=== PATIENT | male | born 1945 | race African-American/Black ===

== ENCOUNTER 2017-10-09 17:54 | Observation (INO) | payer OTHER ==
[~2017-10-09] VITALS: Ht 167.6 cm; Wt 84.8 kg
[~2017-10-09 17:54] MED LIST: 1-ME1LIQ PO; ALBU0.086 INH; ALBU8I INH; METH750T2 PO; PRED20 PO; VENTAER INH
[2017-10-09 17:55] VITALS: BP 155/90; PULSE 128; RESP 22; TEMP 98.3; O2SAT 96
--- NOTE | 2017-10-09 18:30 | RADRPT ---
EXAM DATE/TIME: 10/09/2017 18:20 [place] COMPARISON: CHEST SINGLE AP, July 29, 2015, 23:14. INDICATIONS : Short of breath. MEDICAL HISTORY : Chronic obstructive pulmonary disease. Hypertension SURGICAL HISTORY : None. ENCOUNTER: Initial ACUITY: 2 days PAIN SCORE: 0/10 LOCATION: Bilateral chest FINDINGS: PA and lateral views of the chest demonstrate the lungs to be symmetrically aerated without evidence of mass, infiltrate or effusion. There is hyperaeration bilaterally. The cardiomediastinal contours are unremarkable. Osseous structures are intact. CONCLUSION: No acute disease. No significant changes compared to the prior study. Олег Lopez MD on October 09, 2017 at 18:27 Board Certified Radiologist. This report was verified electronically.
[2017-10-09 19:03] LABS: AUTOMATED NEUTROPHIL # 6.7 TH/MM3 (1.8-7.7); BASOPHIL % 0.2 % (0.0-2.0); EOSINOPHIL % 0.5 % (0.0-4.0); HEMATOCRIT 40.1 % (39.0-51.0); HEMOGLOBIN 13.5 GM/DL (13.0-17.0); LYMPH % 20.1 % (9.0-44.0); LYMPHOCYTE # 1.8 TH/MM3 (1.0-4.8); MEAN CELL VOLUME 88.5 FL (80.0-100.0); MEAN CORPUSCULAR HEMOGLOBIN 29.7 PG (27.0-34.0); MEAN CORPUSCULAR HGB CONC 33.6 % (32.0-36.0); MEAN PLATELET VOLUME 9.7 FL (7.0-11.0); MONO % 5.7 % (0.0-8.0); MONOCYTE # 0.5 TH/MM3 (0-0.9); NEUT % 73.5 % (16.0-70.0); PLATELET COUNT 153 TH/MM3 (150-450); RED BLOOD COUNT 4.54 MIL/MM3 (4.50-5.90); RED CELL DISTRIBUTION WIDTH 13.7 % (11.6-17.2); WHITE BLOOD COUNT 9.1 TH/MM3 (4.0-11.0)
[2017-10-09 19:10] LABS: PROTHROMBIN TIME - PATIENT 10.5 SEC (9.8-11.6)
[2017-10-09 19:25] LABS: BICARBONATE 28.9 MEQ/L (21.0-32.0); BLOOD UREA NITROGEN 16 MG/DL (7-18); CALCIUM 9.1 MG/DL (8.5-10.1); CHLORIDE 103 MEQ/L (98-107); CREATININE 1.19 MG/DL (0.60-1.30); GLOMERULAR FILTRATION RATE 73 ML/MIN (>89); GLUCOSE,RANDOM 121 MG/DL (74-106); MAGNESIUM 2.3 MG/DL (1.5-2.5); SODIUM (NA) 139 MEQ/L (136-145)
[2017-10-09 19:28] LABS: TROPONIN I LESS THAN 0.02 NG/ML (0.02-0.05)
[2017-10-09 22:45] VITALS: BP 151/84; PULSE 95; RESP 14; O2SAT 99
[2017-10-09] MEDS ORDERED: RESP: ALBUTEROL 2.5 MG/IPRATROPIUM 0.5 MG NEB (SCH) NEB ONE (23:00)
[2017-10-09] MEDS ORDERED: predniSONE 20 MG TAB PO ONE (23:00)
[2017-10-09 23:10] VITALS: O2SAT 98
--- NOTE | 2017-10-09 23:34 | PD ---
HPI Chief Complaint: Respiratory Symptoms Time Seen by Provider: 22:42 Travel History International Travel<30 days: No Contact w/Intl Traveler<30days: No Traveled to known affect area: No History of Present Illness HPI Pt is 72 yr old male with Hx of COPD and Back pain and he lives at home on 2-3 liters O2 and now getting worse SHortness of Breath and tachycardia with exertion PFSH Past Medical History Asthma: Yes COPD: Yes Diminished Hearing: No Hypertension: Yes Musculoskeletal: Yes (CHRONIC BACK) Past Surgical History Surgical History: No Previous Surgery Social History Alcohol Use: Yes (OCCASIONAL) Tobacco Use: Yes (3-4 CIGARETTES A DAY) Substance Use: No Allergies-Medications (Allergen,Severity, Reaction): Coded Allergies: shellfish derived (Verified Allergy, Severe, Anaphylaxis, 10/10/17) Reported Meds & Prescriptions Reported Meds & Active Scripts Active Reported Striverdi Respimat Inh (Olodaterol Inh) 2.5 Mcg/Actuation Aer 2 INH DAILY Spiriva Handihaler (Tiotropium Inh) 18 Mcg Cap 18 Mcg INH DAILY 1 capsule = 18 mcg Sertraline (Sertraline HCl) 25 Mg Tab 25 Mg PO DAILY Pravastatin 20 Mg Tab 20 Mg PO HS Omeprazole 20 Mg Tab 20 Mg PO BID Mirtazapine 15 Mg Tab 15 Mg PO HS Vitamin D3 (Cholecalciferol) 1,000 Unit Tab 2,000 Units PO DAILY Buspirone (Buspirone HCl) 10 Mg Tab 10 Mg PO BID Amlodipine (Amlodipine Besylate) 10 Mg Tab 10 Mg PO DAILY Proair Hfa 8.5 GM Inh (Albuterol Sulfate) 90 Mcg/Act Aer 2 Puff INH Q6H PRN 108 mcg/actuation Duoneb (Ipratropium-Albuterol Neb) 0.5-2.5 Mg/3 Ml Neb 1 Nebule INH Q6HR NEB Physical Exam Narrative GENERAL: AOX3 non toxic appearing , SKIN: Warm and dry. HEAD: Atraumatic. Normocephalic. EYES: Pupils equal and round. No scleral icterus. No injection or drainage. ENT: No nasal bleeding or discharge. Mucous membranes pink and moist. NECK: Trachea midline. No JVD. CARDIOVASCULAR: Regular rate and rhythm. RESPIRATORY: No accessory muscle use. slight wheeze bilateral upper lung perez GASTROINTESTINAL: Abdomen soft, non-tender, nondistended. Hepatic and splenic margins not palpable. MUSCULOSKELETAL: Extremities without clubbing, cyanosis, or edema. No obvious deformities. NEUROLOGICAL: Awake and alert. No obvious cranial nerve deficits. Motor grossly within normal limits. Five out of 5 muscle strength in the arms and legs. Normal speech. PSYCHIATRIC: Appropriate mood and affect; insight and judgment normal. Data Data Last Documented VS Vital Signs Date Time Temp Pulse Resp B/P (MAP) Pulse Ox O2 Delivery O2 Flow Rate FiO2 10/09/17 23:10 98 Nasal Cannula 2.00 10/09/17 22:45 95 14 151/84 (106) 10/09/17 17:55 98.3 Orders Orders Complete Blood Count With Diff (10/09/17 17:59) Basic Metabolic Panel (Bmp) (10/09/17 17:59) Act Partial Throm Time (Ptt) (10/09/17 17:59) Prothrombin Time / Inr (Pt) (10/09/17 17:59) Magnesium (Mg) (10/09/17 17:59) Ckmb (Isoenzyme) Profile (10/09/17 17:59) Troponin I (10/09/17 17:59) Electrocardiogram (10/09/17 17:59) Chest, Pa & Lat (10/09/17 17:59) CKMB (10/09/17 18:30) CKMB% (10/09/17 18:30) Albuterol-Ipratropium Neb (Duoneb Neb) (10/09/17 23:00) Prednisone (Deltasone) (10/09/17 23:00) Influenzae A/B Antigen (10/10/17 00:04) Electrocardiogram (10/10/17 00:36) Troponin I (10/10/17 00:36) Admit Order (Ed Use Only) (10/10/17 01:06) Labs Laboratory Tests Test 10/09/17 18:30 10/10/17 00:30 White Blood Count 9.1 TH/MM3 Red Blood Count 4.54 MIL/MM3 Hemoglobin 13.5 GM/DL Hematocrit 40.1 % Mean Corpuscular Volume 88.5 FL Mean Corpuscular Hemoglobin 29.7 PG Mean Corpuscular Hemoglobin Concent 33.6 % Red Cell Distribution Width 13.7 % Platelet Count 153 TH/MM3 Mean Platelet Volume 9.7 FL Neutrophils (%) (Auto) 73.5 % Lymphocytes (%) (Auto) 20.1 % Monocytes (%) (Auto) 5.7 % Eosinophils (%) (Auto) 0.5 % Basophils (%) (Auto) 0.2 % Neutrophils # (Auto) 6.7 TH/MM3 Lymphocytes # (Auto) 1.8 TH/MM3 Monocytes # (Auto) 0.5 TH/MM3 Eosinophils # (Auto) 0.0 TH/MM3 Basophils # (Auto) 0.0 TH/MM3 CBC Comment DIFF FINAL Differential Comment Prothrombin Time 10.5 SEC Prothromb Time International Ratio 1.0 RATIO Activated Partial Thromboplast Time 29.7 SEC Blood Urea Nitrogen 16 MG/DL Creatinine 1.19 MG/DL Random Glucose 121 MG/DL Calcium Level 9.1 MG/DL Magnesium Level 2.3 MG/DL Sodium Level 139 MEQ/L Potassium Level 4.9 MEQ/L Chloride Level 103 MEQ/L Carbon Dioxide Level 28.9 MEQ/L Anion Gap 7 MEQ/L Estimat Glomerular Filtration Rate 73 ML/MIN Total Creatine Kinase 236 U/L Creatine Kinase MB 5.2 NG/ML Troponin I LESS THAN 0.02 NG/ML LESS THAN 0.02 NG/ML MDM Medical Decision Making Medical Screen Exam Complete: Yes Emergency Medical Condition: Yes Differential Diagnosis CP of cough intercostal muscle spam uri viral ,vs influenza , strep pharyngitis Narrative Course 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
[2017-10-10] VITALS (11 sets, daily range): BP systolic 127–163; BP diastolic 72–91; PULSE 93–106; RESP 18–22; TEMP 97.5–98.6; O2SAT 94–99
[2017-10-10] MEDS ORDERED: SODIUM CHLORIDE 0.9% FLUSH 10 ML FLUSH IV FLUSH PRN (02:00)
[2017-10-10 04:24] LABS: TROPONIN I LESS THAN 0.02 NG/ML (0.02-0.05)
[2017-10-10] MEDS ORDERED: ACETAMINOPHEN 500 MG CPLT PO PRN (07:30)
[2017-10-10] MEDS ORDERED: NITROGLYCERIN 0.4 MG SL 25 TABS/BTL SL PRN (07:30)
[2017-10-10] MEDS ORDERED: ONDANSETRON HCL 4 MG/2 ML VIAL IV PUSH PRN (07:30)
--- NOTE | 2017-10-10 08:22 | HHI.HP ---
HPI Primary Care Physician [facility] Chief Complaint Dyspnea with exertion History of Present Illness 72 year old male with history of COPD, anxiety, and o2/2L dependent presents to ER for further evaluation of increasing dyspnea with exertion. Onset few months , reports attending pulmonary rehab twice a week until last couple of weeks due to dyspnea. Denies following with a blunger loader. Came to ER last evening do to dyspnea progressively getting worse with accompanying anxiety. Denies ever having any chest pain or pressure. Becomes dyspneic after walking approximately 10 feet and endorses shortness of breath takes "awhile" to improve. No recent illness or fever. Review of Systems General: No fatigue,weakness, fever, chills, recent illness, or change in appetite. Reports being in his general state of health until a few months ago, when ordered home oxygen. HEENT: No SAHA, no vision changes, no nasal congestion or drainage, no dysphasia CV: No CP, pressure, palpitations, intermittent leg pain, or dizziness RESP: Exertional SOB, chronic intermittent cough and wheeze, history of COPD. no hemoptysis. reports asthma as a child. GI: No nausea, vomiting, bowel changes, diarrhea, constipation, pain, distention , melena, or blood in the stool. No change in appetite, no unintentional weight gain or weight loss : No dysuria, urgency, frequency EXT: No lower leg edema, no paraesthesias MS: Chronic back pain. NEURO: No LOC or motor/sensory deficits PSYCH: Reports taking medications for his moods, history of anxiety and depression. SKIN: No rashes, no concerning lesions Past Family Social History Allergies: Coded Allergies: No Known Allergies (Unverified Allergy, Unknown, 10/10/17) Past Medical History COPD, O2 dependent, anxiety, asthma, chronic back pain, hypertension, former smoker Past Surgical History None Reported Medications Reported Meds & Active Scripts Active Patient is unsure of name of home medications. Will ask RN to assist in obtaining. Active Ordered Medications Current Medications Medications (Trade) Dose Ordered Sig/Antoine Route Start Time Stop Time Status Last Admin (NS Flush) 2 ml UNSCH PRN IV FLUSH 10/10/17 02:00 (NS Flush) 2 ml BID IV FLUSH 10/10/17 09:00 (Tylenol) 500 mg Q4H PRN PO 10/10/17 07:30 (Zofran Inj) 4 mg Q6H PRN IV PUSH 10/10/17 07:30 (Nitrostat Sl) 0.4 mg Q5M PRN SL 10/10/17 07:30 (Aspirin) 325 mg DAILY PO 10/10/17 09:00 (Duoneb Neb) 1 ampule ONCE ONCE NEB 10/10/17 08:30 10/10/17 08:31 UNV Social History Known hypertension. No known coronary artery disease, diabetes, or hyperlipidemia. Former smoker quitting 3 years ago. 50 pack/year history. Denies any alcohol or illegal drugs use. Retired . Past cardiac testing None Physical Exam Vital Signs Vital Signs Date Time Temp Pulse Resp B/P (MAP) Pulse Ox O2 Delivery O2 Flow Rate FiO2 10/10/17 07:49 99 10/10/17 07:36 97.5 102 18 141/91 (108) 99 10/10/17 04:51 98.6 98 18 143/83 (103) 98 10/10/17 03:16 98.6 97 22 163/90 (114) 97 10/09/17 23:10 98 Nasal Cannula 2.00 10/09/17 22:45 95 14 151/84 (106) 99 Nasal Cannula 2.00 10/09/17 17:55 98.3 128 22 155/90 (111) 96 Nasal Cannula 3.00 Physical Exam GENERAL: Alert WN, WD, NAD, pleasant, elderly, -Americans male HEAD: NC, AT CV: RRR, without murmur, rub, gallop, no JVD, S1-S2 no S3-S4. RESP: Inspiratory and expiratory wheezing throughout bilateral, diminished air movement. no rhonchi. symmetrical chest rise, nonlabored, able to speak in full sentences. o2/2L nasal cannula in place. ABD: Soft, NT, ND, no masses, positive bowel tones MS: Normal tone 4 extremities, no obvious deformities, full range of motion PSYCH: A+O 3, pleasant affect, appropriate speech, mood, insight and judgment SKIN: Normal turgor, normal texture Laboratory Laboratory Tests Test 10/09/17 18:30 10/10/17 00:30 10/10/17 03:25 White Blood Count 9.1 Red Blood Count 4.54 Hemoglobin 13.5 Hematocrit 40.1 Mean Corpuscular Volume 88.5 Mean Corpuscular Hemoglobin 29.7 Mean Corpuscular Hemoglobin Concent 33.6 Red Cell Distribution Width 13.7 Platelet Count 153 Mean Platelet Volume 9.7 Neutrophils (%) (Auto) 73.5 Lymphocytes (%) (Auto) 20.1 Monocytes (%) (Auto) 5.7 Eosinophils (%) (Auto) 0.5 Basophils (%) (Auto) 0.2 Neutrophils # (Auto) 6.7 Lymphocytes # (Auto) 1.8 Monocytes # (Auto) 0.5 Eosinophils # (Auto) 0.0 Basophils # (Auto) 0.0 CBC Comment DIFF FINAL Differential Comment Prothrombin Time 10.5 Prothromb Time International Ratio 1.0 Activated Partial Thromboplast Time 29.7 Blood Urea Nitrogen 16 Creatinine 1.19 Random Glucose 121 Calcium Level 9.1 Magnesium Level 2.3 Sodium Level 139 Potassium Level 4.9 Chloride Level 103 Carbon Dioxide Level 28.9 Anion Gap 7 Estimat Glomerular Filtration Rate 73 Total Creatine Kinase 236 208 Creatine Kinase MB 5.2 6.1 Troponin I LESS THAN 0.02 LESS THAN 0.02 LESS THAN 0.02 Date/Time Source Procedure Growth Status 10/10/17 00:20 Nasal Aspirate Influenza Types A,B Antigen (GERONIMO) - Final NEGATIVE FOR FLU A AND B ANTIGEN.... Complete Result Diagram: 10/09/17 1830 10/09/17 1830 Imaging Last 48 hours Impressions Chest X-Ray 10/09/17 1759 Signed Impressions: Service Date/Time: Monday, October 09, 2017 18:20 - CONCLUSION: No acute disease. No significant changes compared to the prior study. Олег Lopez MD Course EKG NST, no st t segment changes Caprini VTE Risk Assessment Caprini VTE Risk Assessment: Mod/High Risk (score >= 2) Caprini Risk Assessment Model Point Value = 1 Point Value = 2 Point Value = 3 Point Value = 5 Age 41-60 Minor surgery BMI > 25 kg/m2 Swollen legs Varicose veins or History of unexplained or recurrent spontaneous Oral contraceptives or hormone replacement Sepsis (< 1 month) Serious lung disease, including pneumonia (< 1 month) Abnormal pulmonary function Acute myocardial infarction Congestive heart failure (< 1 month) History of inflammatory bowel disease Medical patient at bed rest Age 61-74 Arthroscopic surgery Major open surgery (> 45 min) Laparoscopic surgery (> 45 min) Malignancy Confined to bed (> 72 hours) Immobilizing plaster cast Central venous access Age >= 75 History of VTE Family history of VTE Factor V Leiden Prothrombin [id number] Lupus anticoagulant Anticardiolipin antibodies Elevated serum homocysteine Heparin-induced thrombocytopenia Other congenital or acquired thrombophilia Stroke (< 1 month) Elective arthroplasty Hip, pelvis, or leg fracture Acute spinal cord injury (< 1 month) Prophylaxis Regimen Total Risk Factor Score Risk Level Prophylaxis Regimen 0-1 Low Early ambulation 2 Moderate Order ONE of the following: *Sequential Compression Device (SCD) *Heparin 5000 units SQ BID 3-4 Higher Order ONE of the following medications: *Heparin 5000 units SQ TID *Enoxaparin/Lovenox 40 mg SQ daily (WT < 150 kg, CrCl > 30 mL/min) *Enoxaparin/Lovenox 30 mg SQ daily (WT < 150 kg, CrCl > 10-29 mL/min) *Enoxaparin/Lovenox 30 mg SQ BID (WT < 150 kg, CrCl > 30 mL/min) AND/OR *Sequential Compression Device (SCD) 5 or more Highest Order ONE of the following medications: *Heparin 5000 units SQ TID (Preferred with Epidurals) *Enoxaparin/Lovenox 40 mg SQ daily (WT < 150 kg, CrCl > 30 mL/min) *Enoxaparin/Lovenox 30 mg SQ daily (WT < 150 kg, CrCl > 10-29 mL/min) *Enoxaparin/Lovenox 30 mg SQ BID (WT < 150 kg, CrCl > 30 mL/min) AND *Sequential Compression Device (SCD) Assessment and Plan Assessment and Plan #1 COPD exacerbation-admitted chest pain center overnight. Ruled out with 3 sets of EKGs, cardiac enzymes, and monitored on telemetry. Seen and evaluated by Dr. Carl Mendoza. No further cardiac testing. Consult hospitalist for COPD exacerbation. Duoneb RT treatment x1 dose now. [address] Rowe, who agrees to accept patient on their service. Natacha Foster Oct 10, 2017 08:22
[2017-10-10] MEDS ORDERED: RESP: ALBUTEROL 2.5 MG/IPRATROPIUM 0.5 MG NEB (SCH) NEB ONE (08:50)
[2017-10-10] MEDS ORDERED: ASPIRIN 325 MG TAB PO SCH (09:00)
[2017-10-10] MEDS ORDERED: CALCIUM CARBONATE 500 MG CHEWABLE TAB CHEW PRN (09:45)
[2017-10-10] MEDS ORDERED: ACETAMINOPHEN 325 MG TAB PO PRN (09:45)
[2017-10-10] MEDS ORDERED: MAGNESIUM HYDROXIDE SUSP 30 ML CUP PO PRN (09:45)
[2017-10-10] MEDS ORDERED: BISACODYL 10 MG SUPP RECTAL PRN (09:45)
[2017-10-10] MEDS ORDERED: LACTULOSE SYRUP 20 GM/30 ML CUP PO PRN (09:45)
[2017-10-10] MEDS ORDERED: RESP: ALBUTEROL 2.5 MG/3 ML NEB (PRN) INH (09:45)
[2017-10-10] MEDS ORDERED: SENNOSIDES 8.6 MG TAB PO PRN (09:45)
[2017-10-10] MEDS: SODIUM CHLORIDE 0.9% FLUSH 10 ML FLUSH IV FLUSH SCH ×2 (10:10→22:57)
[2017-10-10] MEDS: RESP: ALBUTEROL 2.5 MG/IPRATROPIUM 0.5 MG NEB (SCH) INH ×3 (11:15→20:48)
[2017-10-10] MEDS: methylPREDNISolone SOD SUCC 125 MG/2 ML VIAL IV PUSH SCH ×3 (13:49→22:55)
[2017-10-10] MEDS ORDERED: ALBUAER3 INH (14:13)
[2017-10-10] MEDS ORDERED: OLOD1AER2 INH (14:13)
[2017-10-10] MEDS ORDERED: OMEP20TA93 PO (14:13)
[2017-10-10] MEDS ORDERED: AMLO10TA2 PO (14:13)
[2017-10-10] MEDS ORDERED: SPIRCAP INH (14:13)
[2017-10-10] MEDS ORDERED: MIRTA15 PO (14:13)
[2017-10-10] MEDS ORDERED: VITA100018 PO (14:13)
[2017-10-10] MEDS ORDERED: PRAV20TA2 PO (14:13)
[2017-10-10] MEDS ORDERED: SERT25TA83 PO (14:13)
[2017-10-10] MEDS ORDERED: BUSP10TA PO (14:13)
[2017-10-10] MEDS ORDERED: IPRASOL INH (14:13)
[2017-10-10] MEDS ORDERED: AZITHROMYCIN 250 MG TAB PO ONE (15:30)
--- NOTE | 2017-10-10 15:33 | PD.CONS ---
[facility] By Dr. Carl Mendoza Reason for Consult COPD exacerbation Primary Care Physician [facility] Diagnoses: History of Present Illness This is a 72-year-old male with a history of chronic back pain, hyperlipidemia, hypertension, GERD, anxiety, COPD chronic respiratory failure on home oxygen. Patient presents to the emergency department complaining of progressive shortness of breath associated with anxiety. He also has wheezing. Denies fever, chills,. Patient was admitted to the chest pain center was ruled out for SD. Dr. Mendoza requested consultation to evaluate and manage COPD exacerbation and for transfer of care. All other systems reviewed negative Review of Systems Except as stated in HPI: all other systems reviewed are Neg Past Family Social History Allergies: Coded Allergies: shellfish derived (Verified Allergy, Severe, Anaphylaxis, 10/10/17) Past Medical History As previously mentioned Past Surgical History Denies Reported Medications Reported Meds & Active Scripts Active Reported Striverdi Respimat Inh (Olodaterol Inh) 2.5 Mcg/Actuation Aer 2 INH DAILY Spiriva Handihaler (Tiotropium Inh) 18 Mcg Cap 18 Mcg INH DAILY 1 capsule = 18 mcg Sertraline (Sertraline HCl) 25 Mg Tab 25 Mg PO DAILY Pravastatin 20 Mg Tab 20 Mg PO HS Omeprazole 20 Mg Tab 20 Mg PO BID Mirtazapine 15 Mg Tab 15 Mg PO HS Vitamin D3 (Cholecalciferol) 1,000 Unit Tab 2,000 Units PO DAILY Buspirone (Buspirone HCl) 10 Mg Tab 10 Mg PO BID Amlodipine (Amlodipine Besylate) 10 Mg Tab 10 Mg PO DAILY Proair Hfa 8.5 GM Inh (Albuterol Sulfate) 90 Mcg/Act Aer 2 Puff INH Q6H PRN 108 mcg/actuation Duoneb (Ipratropium-Albuterol Neb) 0.5-2.5 Mg/3 Ml Neb 1 Nebule INH Q6HR NEB Family History No CVA or SD Social History Quit alcohol. Also stopped smoking 3 years ago [id number] smoking history. Physical Exam Vital Signs Vital Signs Date Time Temp Pulse Resp B/P (MAP) Pulse Ox O2 Delivery O2 Flow Rate FiO2 10/10/17 11:42 97.6 100 20 140/80 (100) 98 10/10/17 07:49 99 10/10/17 07:36 97.5 102 18 141/91 (108) 99 10/10/17 04:51 98.6 98 18 143/83 (103) 98 10/10/17 03:16 98.6 97 22 163/90 (114) 97 10/09/17 23:10 98 Nasal Cannula 2.00 10/09/17 22:45 95 14 151/84 (106) 99 Nasal Cannula 2.00 10/09/17 17:55 98.3 128 22 155/90 (111) 96 Nasal Cannula 3.00 Physical Exam GENERAL: This is a well-nourished, well-developed patient who is anxious SKIN: No rashes, ecchymoses or lesions. Cool and dry. HEAD: Atraumatic. Normocephalic. No temporal or scalp tenderness. EYES: Pupils equal round and reactive. Extraocular motions intact. No scleral icterus. No injection or drainage. ENT: Nose without bleeding, purulent drainage or septal hematoma. Throat without erythema, tonsillar hypertrophy or exudate. Uvula midline. Airway patent. NECK: Trachea midline. No JVD or lymphadenopathy. Supple, nontender, no meningeal signs. CARDIOVASCULAR: Regular rate and rhythm without murmurs, gallops, or rubs. RESPIRATORY: Breath sounds equal bilaterally. Mild expiratory wheezes GASTROINTESTINAL: Abdomen soft, non-tender, distended. No guarding. MUSCULOSKELETAL: Extremities without clubbing, cyanosis, or edema. No joint tenderness, effusion, or edema noted. No calf tenderness. Negative Homans sign bilaterally. NEUROLOGICAL: Awake and alert. Cranial nerves II through XII intact. Motor and sensory grossly within normal limits. Five out of 5 muscle strength in all muscle groups. Normal speech. Laboratory Laboratory Tests Test 10/09/17 18:30 10/10/17 00:30 10/10/17 03:25 White Blood Count 9.1 Red Blood Count 4.54 Hemoglobin 13.5 Hematocrit 40.1 Mean Corpuscular Volume 88.5 Mean Corpuscular Hemoglobin 29.7 Mean Corpuscular Hemoglobin Concent 33.6 Red Cell Distribution Width 13.7 Platelet Count 153 Mean Platelet Volume 9.7 Neutrophils (%) (Auto) 73.5 Lymphocytes (%) (Auto) 20.1 Monocytes (%) (Auto) 5.7 Eosinophils (%) (Auto) 0.5 Basophils (%) (Auto) 0.2 Neutrophils # (Auto) 6.7 Lymphocytes # (Auto) 1.8 Monocytes # (Auto) 0.5 Eosinophils # (Auto) 0.0 Basophils # (Auto) 0.0 CBC Comment DIFF FINAL Differential Comment Prothrombin Time 10.5 Prothromb Time International Ratio 1.0 Activated Partial Thromboplast Time 29.7 Blood Urea Nitrogen 16 Creatinine 1.19 Random Glucose 121 Calcium Level 9.1 Magnesium Level 2.3 Sodium Level 139 Potassium Level 4.9 Chloride Level 103 Carbon Dioxide Level 28.9 Anion Gap 7 Estimat Glomerular Filtration Rate 73 Total Creatine Kinase 236 208 Creatine Kinase MB 5.2 6.1 Troponin I LESS THAN 0.02 LESS THAN 0.02 LESS THAN 0.02 Date/Time Source Procedure Growth Status 10/10/17 00:20 Nasal Aspirate Influenza Types A,B Antigen (GERONIMO) - Final NEGATIVE FOR FLU A AND B ANTIGEN.... Complete Result Diagram: 10/09/17 1830 10/09/17 183 Imaging Last Impressions Chest X-Ray 10/09/17 1759 Signed Impressions: Service Date/Time: Monday, October 09, 2017 18:20 - CONCLUSION: No acute disease. No significant changes compared to the prior study. Олег Lopez MD Assessment and Plan Problem List: (1) COPD (chronic obstructive pulmonary disease) ICD Code: J44.9 - Chronic obstructive pulmonary disease, unspecified Assessment and Plan This is a 72-year-old male who presents to the emergency department complaining of progressive shortness of breath associated with anxiety. He also has wheezing. Denies fever, chills. Patient has history of COPD COPD exacerbation with chronic respiratory failure on home oxygen. Chest x-ray image and evaluate me with no acute cardiopulmonary disease. Flu screen is negative. Start scheduled nebulization, IV steroids, oxygen and Zithromax. Hyperglycemia. Obtain fasting glucose Abdominal distention. Denies abdominal pain and tenderness. He is passing flatus. Last bowel movement 2 days ago. Start bowel regimen and monitor Chronic medical conditions of chronic back pain, hyperlipidemia, hypertension, GERD and anxiety. Stable continue outpatient medications as appropriate DVT prophylaxis with SCD and Lovenox Discussed Condition With Patient Collin Rowe MD Oct 10, 2017 15:33
[2017-10-10] MEDS ORDERED: PILL SPLITTER OTHER PRN (16:30)
[2017-10-10] MEDS: TIOTROPIUM BROMIDE 18 MCG INH INH SCH (17:16)
[2017-10-10] MEDS: SERTRALINE HCL 50 MG TAB PO SCH (17:17)
[2017-10-10] MEDS: ENOXAPARIN SODIUM 40 MG/0.4 ML SYRINGE SQ SCH (17:17)
[2017-10-10] MEDS: PRAVASTATIN SOD 20 MG TAB PO SCH (22:56)
[2017-10-10] MEDS: PANTOPRAZOLE SOD 20 MG DELAYED RELEASE TAB PO SCH (22:56)
[2017-10-10] MEDS: DOCUSATE SODIUM 50 MG/SENNA 8.6 MG TAB PO SCH (22:56)
[2017-10-10] MEDS: busPIRone HCL 10 MG TAB PO SCH (22:56)
[2017-10-10] MEDS: MIRTAZAPINE 15 MG TAB PO SCH (22:56)
[2017-10-11] VITALS (12 sets, daily range): BP systolic 130–160; BP diastolic 67–85; PULSE 82–109; RESP 18–20; TEMP 97.2–98.7; O2SAT 94–97
[2017-10-11] MEDS: methylPREDNISolone SOD SUCC 125 MG/2 ML VIAL IV PUSH SCH ×4 (05:08→23:14)
[2017-10-11 08:11] LABS: BICARBONATE 30.9 MEQ/L (21.0-32.0); MAGNESIUM 2.4 MG/DL (1.5-2.5)
[2017-10-11] MEDS: busPIRone HCL 10 MG TAB PO SCH ×2 (08:42→21:51)
[2017-10-11] MEDS: DOCUSATE SODIUM 50 MG/SENNA 8.6 MG TAB PO SCH ×2 (08:42→21:51)
[2017-10-11] MEDS: SERTRALINE HCL 50 MG TAB PO SCH (08:42)
[2017-10-11] MEDS: CHOLECALCIFEROL (VIT D3) 1000 UNIT TAB PO SCH (08:42)
[2017-10-11] MEDS: AZITHROMYCIN 250 MG TAB PO SCH (08:42)
[2017-10-11] MEDS: PANTOPRAZOLE SOD 20 MG DELAYED RELEASE TAB PO SCH ×2 (08:42→21:51)
[2017-10-11] MEDS: SODIUM CHLORIDE 0.9% FLUSH 10 ML FLUSH IV FLUSH SCH ×2 (08:43→21:55)
[2017-10-11] MEDS: TIOTROPIUM BROMIDE 18 MCG INH INH SCH (08:43)
--- NOTE | 2017-10-11 15:10 | HHI.PR ---
Subjective Remarks Follow-up COPD exacerbation. Improving shortness of breath. Discussed with pulmonary, continue current management as patient continues to be tight Objective Vitals Vital Signs Date Time Temp Pulse Resp B/P (MAP) Pulse Ox O2 Delivery O2 Flow Rate FiO2 10/11/17 12:42 Nasal Cannula 2.00 10/11/17 12:05 98.1 101 20 151/71 (97) 97 10/11/17 11:34 106 10/11/17 10:05 97.9 94 20 160/82 (108) 96 10/11/17 07:45 Nasal Cannula 2.00 10/11/17 07:37 85 10/11/17 04:00 Nasal Cannula 2.00 10/11/17 04:00 82 10/11/17 04:00 98.0 91 19 148/85 (106) 97 10/11/17 00:00 98.7 86 18 130/73 (92) 94 10/11/17 00:00 Nasal Cannula 2.00 10/10/17 23:50 93 10/10/17 22:50 Nasal Cannula 2.50 10/10/17 20:57 97 Nasal Cannula 3.00 10/10/17 20:05 98.3 106 21 127/83 (98) 97 10/10/17 20:00 106 10/10/17 15:32 98.3 95 18 144/72 (96) 94 I/O 10/10/17 10/10/17 10/10/17 10/11/17 10/11/17 10/11/17 07:00 15:00 23:00 07:00 15:00 23:00 Intake Total 480 ml Output Total 950 ml Balance -470 ml Intake Oral 480 ml Output Urine Total 950 ml # Bowel Movements 0 Result Diagram: 10/09/17 1830 10/11/17 0612 Imaging Last Impressions Chest X-Ray 10/09/17 5343 Signed Impressions: Service Date/Time: Monday, October 09, 2017 18:20 - CONCLUSION: No acute disease. No significant changes compared to the prior study. Олег Lopez MD Objective Remarks GENERAL: This is a well-nourished, well-developed patient who is anxious SKIN: No rashes, ecchymoses or lesions. Cool and dry. CARDIOVASCULAR: Regular rate and rhythm without murmurs, gallops, or rubs. RESPIRATORY: Breath soundsequal bilaterally. Mild expiratory wheezes GASTROINTESTINAL: Abdomen soft, non-tender, distended. No guarding. MUSCULOSKELETAL: Extremities without clubbing, cyanosis, or edema. No joint tenderness, effusion, or edema noted. No calf tenderness. Negative Homans sign bilaterally. NEUROLOGICAL: Awake and alert. Cranial nerves II through XII intact. Motor and sensory grossly within normal limits. Five out of 5 muscle strength in all muscle groups. Normal speech. Procedures none A/P Problem List: (1) COPD (chronic obstructive pulmonary disease) ICD Code: J44.9 - Chronic obstructive pulmonary disease, unspecified Assessment and Plan This is a 72-year-old male who presents to the emergency department complaining of progressive shortness of breath associated with anxiety. He also has wheezing. Denies fever, chills. Patient has history of COPD COPD exacerbation with chronic respiratory failure on home oxygen. Chest x-ray image and evaluate me with no acute cardiopulmonary disease. Flu screen is negative. Patient still with active wheezing continue scheduled nebulization, IV steroids, oxygen and Zithromax. Increase activity as tolerated Hyperglycemia. Obtain f A1c Abdominal distention secondary to constipation. Denies abdominal pain and tenderness. He is passing flatus. Last bowel movement 2 days ago. Continue t bowel regimen and monitor Chronic medical conditions of chronic back pain, hyperlipidemia, hypertension, GERD and anxiety. Stable continue outpatient medications as appropriate DVT prophylaxis with SCD and Lovenox Collin Rowe MD Oct 11, 2017 15:10
[2017-10-11] MEDS: RESP: ALBUTEROL 2.5 MG/IPRATROPIUM 0.5 MG NEB (SCH) INH ×2 (16:02→19:24)
[2017-10-11] MEDS: ENOXAPARIN SODIUM 40 MG/0.4 ML SYRINGE SQ SCH (16:04)
--- NOTE | 2017-10-11 16:22 | EKG ---
Date Performed: 10/10/2017 Time Performed: 03:43:12 PTAGE: 72 years EKG: Sinus rhythm BORDERLINE LEFT AXIS DEVIATION BORDERLINE ECG PREVIOUS TRACING : 10/10/2017 00.42 Since previous tracing, no significant change noted DOCTOR: Carl Mendoza Interpretating Date/Time 10/11/2017 16:20:32
--- NOTE | 2017-10-11 16:25 | EKG ---
Date Performed: 10/09/2017 Time Performed: 18:35:58 PTAGE: 72 years EKG: SINUS TACHYCARDIA POSSIBLE LEFT ATRIAL ENLARGEMENT ABNORMAL RHYTHM ECG PREVIOUS TRACING : 07/29/2015 23.23 Since previous tracing, no significant change noted DOCTOR: Carl Mendoza Interpretating Date/Time 10/11/2017 16:24:09
--- NOTE | 2017-10-11 16:26 | EKG ---
Date Performed: 10/10/2017 Time Performed: 00:42:13 PTAGE: 72 years EKG: Sinus rhythm BORDERLINE ECG PREVIOUS TRACING : 10/09/2017 18.35 Since previous tracing, no significant change noted DOCTOR: Carl Mendoza Interpretating Date/Time 10/11/2017 16:24:38
--- NOTE | 2017-10-11 16:42 | MB ---
cc: Lili ZAVALA DATE OF CONSULTATION: 10/11/2017 HISTORY OF PRESENT ILLNESS: This is a 72-year-old black male with a history of COPD followed at the .[facility]. He has been on oxygen for the last year along with a nebulizer. He presented on October 09 with increasing shortness of breath as well as chest pain. He was initially seen at the chest pain center and ruled out for myocardial ischemia and was transferred to Dr. Rowe's service for treatment of acute exacerbation of COPD. The patient has had increasing shortness of breath for weeks but it became particularly acute the day of presentation. He was wheezing, congested, no purulent sputum, no hemoptysis. Chest x-ray revealed nothing acute, had a comparison film which was unchanged. The patient states that he is feeling better, at least at rest, but when he exerts himself he is quite short of breath. He is currently on nebulized aerosol treatments four times a day and p.r.n. He is on Zithromax, Lovenox, methylprednisolone, oxygen and Tiotropium. Nasal aspirate was negative for influenza A and B. No other cultures have been done. White count is 9100. ALLERGIES: Shellfish PAST SURGICAL HISTORY: No prior surgical history. PAST MEDICAL HISTORY: 1. Hyperlipidemia. 2. Hypertension. 3. Reflux disease. 4. No significant prior cardiovascular history. REVIEW OF SYSTEMS: As noted above. Essentially he had very significant shortness of breath which just kept getting worse with no other significant associated symptoms other than chest pain. No increased swelling in his legs. No hemoptysis. No fever. No purulent sputum. PHYSICAL EXAMINATION: GENERAL: Elderly gentleman really no distress at rest. VITAL SIGNS: 98 degrees, pulse 100, respirations 18-22, blood pressure 150/70, O2 sat on 2 liters is 98%. HEAD, EYES, EARS, NOSE, THROAT: Sclerae anicteric. Mucous membranes are moist. NECK: Neck veins are flat. LUNGS: Very tight lungs. Wheezing bilaterally. HEART: Regular rhythm. No harsh murmur. EXTREMITIES: No edema or cyanosis. Mr. Curry has known COPD. He quit smoking several years ago. He is responding to current therapy but is still quite tight so we should continue the IV therapy and aerosol treatments. No evidence of pneumonia. White count actually normal and he is afebrile, but I would continue the antibiotic regimen he is currently on. Further diagnostic and/or therapeutic intervention will depend on his response and ongoing clinical course. R. MD REILLY العراقي/OLGA /2:44 PM /4:11 PM
[2017-10-11] MEDS: PRAVASTATIN SOD 20 MG TAB PO SCH (21:51)
[2017-10-11] MEDS: MIRTAZAPINE 15 MG TAB PO SCH (21:51)
[2017-10-12] VITALS (13 sets, daily range): BP systolic 130–164; BP diastolic 76–110; PULSE 91–114; RESP 18–20; TEMP 97.3–98.8; O2SAT 95–99
[2017-10-12] MEDS: methylPREDNISolone SOD SUCC 125 MG/2 ML VIAL IV PUSH SCH ×4 (05:51→21:58)
[2017-10-12] MEDS: RESP: ALBUTEROL 2.5 MG/IPRATROPIUM 0.5 MG NEB (SCH) INH ×4 (07:56→21:40)
[2017-10-12] MEDS: SODIUM CHLORIDE 0.9% FLUSH 10 ML FLUSH IV FLUSH SCH ×2 (08:33→21:58)
[2017-10-12] MEDS: DOCUSATE SODIUM 50 MG/SENNA 8.6 MG TAB PO SCH ×2 (08:34→21:00)
[2017-10-12] MEDS: SERTRALINE HCL 50 MG TAB PO SCH (08:34)
[2017-10-12] MEDS: PANTOPRAZOLE SOD 20 MG DELAYED RELEASE TAB PO SCH ×2 (08:35→21:58)
[2017-10-12] MEDS: CHOLECALCIFEROL (VIT D3) 1000 UNIT TAB PO SCH (08:35)
[2017-10-12] MEDS: AZITHROMYCIN 250 MG TAB PO SCH (08:35)
[2017-10-12] MEDS: busPIRone HCL 10 MG TAB PO SCH ×2 (08:35→21:58)
[2017-10-12] MEDS: TIOTROPIUM BROMIDE 18 MCG INH INH SCH (08:36)
[2017-10-12 11:18] LABS: HEMOGLOBIN A1C 5.2 % (4.3-6.0)
--- NOTE | 2017-10-12 11:43 | HHI.PR ---
Subjective Remarks Follow-up COPD exacerbation. Patient still having audible wheezing. Increase exercise tolerance. Discussed with nursing and pulmonary Objective Vitals Vital Signs Date Time Temp Pulse Resp B/P (MAP) Pulse Ox O2 Delivery O2 Flow Rate FiO2 10/12/17 08:43 97.4 101 20 135/110 (118) 98 10/12/17 08:00 97 10/12/17 08:00 Nasal Cannula 2.00 21 10/12/17 07:58 Nasal Cannula 2.00 10/12/17 04:35 97 2.00 10/12/17 04:00 Nasal Cannula 2.00 10/12/17 04:00 97.7 96 18 150/89 (109) 99 10/12/17 03:50 95 10/12/17 00:00 97.3 109 19 155/81 (105) 98 10/12/17 00:00 Nasal Cannula 2.00 10/11/17 23:59 92 10/11/17 21:55 Nasal Cannula 2.00 10/11/17 20:09 109 10/11/17 20:00 97.2 109 19 151/83 (105) 96 10/11/17 16:05 98.0 104 19 133/67 (89) 97 10/11/17 16:02 97 Nasal Cannula 2.00 10/11/17 15:57 99 10/11/17 12:42 Nasal Cannula 2.00 10/11/17 12:05 98.1 101 20 151/71 (97) 97 I/O 10/11/17 10/11/17 10/11/17 10/12/17 10/12/17 10/12/17 07:00 15:00 23:00 07:00 15:00 23:00 Intake Total 480 ml 480 ml 240 ml Output Total 950 ml Balance -470 ml 480 ml 240 ml Intake Oral 480 ml 480 ml 240 ml Output Urine Total 950 ml # Voids 5 3 # Bowel Movements 0 2 0 Result Diagram: 10/09/17 1830 10/11/17 0612 Objective Remarks GENERAL: This is a well-nourished, well-developed patient who is anxious SKIN: No rashes, ecchymoses or lesions. Cool and dry. CARDIOVASCULAR: Regular rate and rhythm without murmurs, gallops, or rubs. RESPIRATORY: Breath sounds equal bilaterally. Mild expiratory wheezes GASTROINTESTINAL: Abdomen soft, non-tender, distended. No guarding. MUSCULOSKELETAL: Extremities without clubbing, cyanosis, or edema. No joint tenderness, effusion, or edema noted. No calf tenderness. Negative Homans sign bilaterally. NEUROLOGICAL: Awake and alert. Cranial nerves II through XII intact. Motor and sensory grossly within normal limits. Five out of 5 muscle strength in all muscle groups. Normal speech. Procedures none A/P Problem List: (1) COPD (chronic obstructive pulmonary disease) ICD Code: J44.9 - Chronic obstructive pulmonary disease, unspecified Assessment and Plan This is a 72-year-old male who presents to the emergency department complaining of progressive shortness of breath associated with anxiety. He also has wheezing. Denies fever, chills. Patient has history of COPD COPD exacerbation with chronic respiratory failure on home oxygen. Chest x-ray image and evaluate me with no acute cardiopulmonary disease. Flu screen is negative. He is slowly improving but still with significant wheezing continue scheduled nebulization, IV steroids, oxygen and Zithromax. Increase activity as tolerated Hyperglycemia. A1c 5.2 Abdominal distention secondary to constipation. Denies abdominal pain and tenderness. He is stooling continue bowel regimen and monitor Chronic medical conditions of chronic back pain, hyperlipidemia, hypertension, GERD and anxiety. Stable continue outpatient medications as appropriate DVT prophylaxis with SCD and Lovenox Discharge Planning Possible discharge in 1-2 days Collin Rowe MD Oct 12, 2017 11:43
[2017-10-12] MEDS ORDERED: AZIT250T3 PO (15:51)
[2017-10-12] MEDS ORDERED: PRED20 PO (15:51)
--- NOTE | 2017-10-12 15:52 | HHI.DCPOC ---
Discharge Care Plan Diagnosis: (1) COPD (chronic obstructive pulmonary disease) Your Health Problems Are: Difficulty with ADL Exercise Tolerance Goals to Promote Your Health * To prevent worsening of your condition and complications * To maintain your health at the optimal level Directions to Meet Your Goals Take your medications as prescribed Follow your dietary instruction Follow activity as directed Keep your appointments as scheduled Take your immunizations and boosters as scheduled If your symptoms worsen call your PCP, if no PCP go to Urgent Care Center or Emergency Room Smoking is Dangerous to Your Health. Avoid second hand smoke Call the 24-hour hour crisis hotline for domestic abuse at Collin Rowe MD Oct 12, 2017 15:52
--- NOTE | 2017-10-12 15:53 | HHI.FF ---
Face to Face Verification Diagnosis: (1) COPD (chronic obstructive pulmonary disease) Physical Therapy Order: Evaluate and Treat, Improve ambulation, Strength and gait training Home Health Nursing Order: Medical education Signs/symptoms of disease process Oxygen administration education Medication education-adverse effect Nursing assessment with vital signs I have seen patient Fan Curry on 10/12/17. My clinical findings support the need for the requested home health care services because: Patient has SOB I certify that my clinical findings support that this patient is homebound because: Hx COPD- exertion dyspnea/weakness Collin Rowe MD Oct 12, 2017 15:53
[2017-10-12] MEDS: ENOXAPARIN SODIUM 40 MG/0.4 ML SYRINGE SQ SCH (16:39)
[2017-10-12] MEDS ORDERED: ENALAPRILAT 1.25 MG/ML VIAL IV PUSH PRN (17:15)
[2017-10-12] MEDS: FUROSEMIDE 20 MG TAB PO SCH (17:35)
[2017-10-12] MEDS: MIRTAZAPINE 15 MG TAB PO SCH (21:58)
[2017-10-12] MEDS: PRAVASTATIN SOD 20 MG TAB PO SCH (21:58)
[2017-10-13] VITALS (11 sets, daily range): BP systolic 125–163; BP diastolic 75–93; PULSE 92–119; RESP 20; TEMP 97.4–98.3; O2SAT 95–100
[2017-10-13] MEDS: methylPREDNISolone SOD SUCC 125 MG/2 ML VIAL IV PUSH SCH ×3 (05:33→22:47)
[2017-10-13] MEDS: SODIUM CHLORIDE 0.9% FLUSH 10 ML FLUSH IV FLUSH SCH ×2 (08:04→22:47)
[2017-10-13] MEDS: AZITHROMYCIN 250 MG TAB PO SCH (08:05)
[2017-10-13] MEDS: FUROSEMIDE 20 MG TAB PO SCH (08:05)
[2017-10-13] MEDS: PANTOPRAZOLE SOD 20 MG DELAYED RELEASE TAB PO SCH ×2 (08:05→22:47)
[2017-10-13] MEDS: CHOLECALCIFEROL (VIT D3) 1000 UNIT TAB PO SCH (08:05)
[2017-10-13] MEDS: busPIRone HCL 10 MG TAB PO SCH ×2 (08:06→22:46)
[2017-10-13] MEDS: DOCUSATE SODIUM 50 MG/SENNA 8.6 MG TAB PO SCH ×2 (08:06→21:00)
[2017-10-13] MEDS: SERTRALINE HCL 50 MG TAB PO SCH (08:06)
[2017-10-13] MEDS: TIOTROPIUM BROMIDE 18 MCG INH INH SCH (08:08)
[2017-10-13] MEDS: IBUPROFEN 600 MG TAB PO PRN ×2 (08:13→16:31)
[2017-10-13] MEDS: RESP: ALBUTEROL 2.5 MG/IPRATROPIUM 0.5 MG NEB (SCH) INH ×4 (09:49→20:52)
[2017-10-13 10:13] LABS: BICARBONATE 31.3 MEQ/L (21.0-32.0); CALCIUM 8.3 MG/DL (8.5-10.1); CREATININE 1.15 MG/DL (0.60-1.30); MAGNESIUM 2.6 MG/DL (1.5-2.5)
--- NOTE | 2017-10-13 11:55 | HHI.PR ---
Subjective Remarks Follow-up COPD exacerbation. He continues to slowly improve with less shortness of breath and increasing exercise tolerance all however he still has significant wheezing discuss with pulmonary and nursing Objective Vitals Vital Signs Date Time Temp Pulse Resp B/P (MAP) Pulse Ox O2 Delivery O2 Flow Rate FiO2 10/13/17 09:49 100 Nasal Cannula 2.00 10/13/17 08:47 98.3 98 20 151/93 (112) 100 10/13/17 07:10 Nasal Cannula 2.00 21 10/13/17 04:00 97.9 96 20 125/83 (97) 95 10/13/17 00:00 98.0 92 20 163/75 (104) 98 10/12/17 23:45 91 10/12/17 22:07 Nasal Cannula 2.00 10/12/17 21:41 Nasal Cannula 2.00 10/12/17 20:00 98.1 102 18 152/87 (108) 95 10/12/17 19:47 99 10/12/17 16:37 98.8 109 20 164/80 (108) 96 10/12/17 16:00 110 10/12/17 15:03 114 10/12/17 12:20 97.7 104 20 130/76 (94) 97 I/O 10/12/17 10/12/17 10/12/17 10/13/17 10/13/17 10/13/17 07:00 15:00 23:00 07:00 15:00 23:00 Intake Total 240 ml 720 ml 322 ml Balance 240 ml 720 ml 322 ml Intake Oral 240 ml 720 ml 322 ml # Voids 3 4 4 # Bowel Movements 0 1 0 Result Diagram: 10/09/17 1830 10/13/17 0900 Objective Remarks GENERAL: This is a well-nourished, well-developed patient who is anxious SKIN: No rashes, ecchymoses or lesions. Cool and dry. CARDIOVASCULAR: Regular rate and rhythm without murmurs, gallops, or rubs. RESPIRATORY: Breath sounds equal bilaterally. Mild expiratory wheezes which is improving GASTROINTESTINAL: Abdomen soft, non-tender, distended. No guarding. MUSCULOSKELETAL: Extremities without clubbing, cyanosis, or edema. No joint tenderness, effusion, or edema noted. No calf tenderness. Negative Homans sign bilaterally. NEUROLOGICAL: Awake and alert. Cranial nerves II through XII intact. Motor and sensory grossly within normal limits. Five out of 5 muscle strength in all muscle groups. Normal speech. Procedures none A/P Problem List: (1) COPD (chronic obstructive pulmonary disease) ICD Code: J44.9 - Chronic obstructive pulmonary disease, unspecified Assessment and Plan This is a 72-year-old male who presents to the emergency department complaining of progressive shortness of breath associated with anxiety. He also has wheezing. Denies fever, chills. Patient has history of COPD COPD exacerbation with chronic respiratory failure on home oxygen. Chest x-ray image and evaluate me with no acute cardiopulmonary disease. Flu screen is negative. He is slowly improving but still with significant wheezing continue scheduled nebulization, IV steroids, oxygen and Zithromax. Add Symbicort. Increase activity as tolerated Hyperglycemia. A1c 5.2 Abdominal distention secondary to constipation. Denies abdominal pain and tenderness. He is stooling continue bowel regimen and monitor Chronic medical conditions of chronic back pain, hyperlipidemia, hypertension, GERD and anxiety. Stable continue outpatient medications as appropriate DVT prophylaxis with SCD and Lovenox Discharge Planning Possible discharge in morning Collin Rowe MD Oct 13, 2017 11:55
[2017-10-13] MEDS: BUDESONIDE-FORMOTEROL 160/4.5 MCG INHALER INH SCH ×2 (13:43→22:47)
[2017-10-13] MEDS: ENOXAPARIN SODIUM 40 MG/0.4 ML SYRINGE SQ SCH (16:31)
[2017-10-13] MEDS: PRAVASTATIN SOD 20 MG TAB PO SCH (22:47)
[2017-10-13] MEDS: MIRTAZAPINE 15 MG TAB PO SCH (22:47)
[2017-10-14] VITALS (12 sets, daily range): BP systolic 133–149; BP diastolic 71–99; PULSE 80–115; RESP 18–21; TEMP 97.8–98.4; O2SAT 94–98
[2017-10-14] MEDS: RESP: ALBUTEROL 2.5 MG/IPRATROPIUM 0.5 MG NEB (SCH) INH ×4 (08:25→19:58)
[2017-10-14] MEDS: PANTOPRAZOLE SOD 20 MG DELAYED RELEASE TAB PO SCH ×2 (08:29→21:22)
[2017-10-14] MEDS: AZITHROMYCIN 250 MG TAB PO SCH (08:29)
[2017-10-14] MEDS: FUROSEMIDE 20 MG TAB PO SCH (08:30)
[2017-10-14] MEDS: methylPREDNISolone SOD SUCC 125 MG/2 ML VIAL IV PUSH SCH ×2 (08:30→21:21)
[2017-10-14] MEDS: busPIRone HCL 10 MG TAB PO SCH ×2 (08:30→21:22)
[2017-10-14] MEDS: SERTRALINE HCL 50 MG TAB PO SCH (08:30)
[2017-10-14] MEDS: CHOLECALCIFEROL (VIT D3) 1000 UNIT TAB PO SCH (08:30)
[2017-10-14] MEDS: SODIUM CHLORIDE 0.9% FLUSH 10 ML FLUSH IV FLUSH SCH ×2 (08:31→21:22)
[2017-10-14] MEDS: DOCUSATE SODIUM 50 MG/SENNA 8.6 MG TAB PO SCH ×2 (08:31→21:00)
[2017-10-14] MEDS: TIOTROPIUM BROMIDE 18 MCG INH INH SCH (08:35)
[2017-10-14] MEDS: BUDESONIDE-FORMOTEROL 160/4.5 MCG INHALER INH SCH ×2 (08:35→21:22)
[2017-10-14 10:28] LABS: CALCIUM 8.3 MG/DL (8.5-10.1); CREATININE 1.04 MG/DL (0.60-1.30); MAGNESIUM 2.6 MG/DL (1.5-2.5)
--- NOTE | 2017-10-14 13:55 | HHI.PR ---
Subjective Remarks Follow-up COPD exacerbation. States he is not ready yet to be discharged still with dyspnea on exertion and reports that his heart rate goes up to over 120 after using restroom discussed with nursing Objective Vitals Vital Signs Date Time Temp Pulse Resp B/P (MAP) Pulse Ox O2 Delivery O2 Flow Rate FiO2 10/14/17 12:11 98.1 111 18 141/85 (103) 96 10/14/17 08:25 98 Nasal Cannula 2.00 10/14/17 08:03 97.8 101 19 147/91 (109) 98 10/14/17 08:00 100 10/14/17 08:00 Nasal Cannula 2.00 10/14/17 04:00 98.0 86 18 148/92 (110) 95 10/14/17 03:44 80 10/14/17 00:00 98.4 104 20 145/71 (95) 96 10/13/17 23:50 101 10/13/17 22:30 Nasal Cannula 2.00 10/13/17 20:53 96 Nasal Cannula 10/13/17 20:00 98.3 119 20 146/80 (102) 96 10/13/17 19:47 106 10/13/17 16:00 103 I/O 10/13/17 10/13/17 10/13/17 10/14/17 10/14/17 10/14/17 07:00 15:00 23:00 07:00 15:00 23:00 Intake Total 322 ml 240 ml Balance 322 ml 240 ml Intake Oral 322 ml 240 ml # Voids 4 4 # Bowel Movements 0 1 Result Diagram: 10/14/17 0900 Imaging Last Impressions Chest X-Ray 10/09/17 0606 Signed Impressions: Service Date/Time: Monday, October 09, 2017 18:20 - CONCLUSION: No acute disease. No significant changes compared to the prior study. Олег Lopez MD Objective Remarks GENERAL: This is a well-nourished, well-developed patient in no distress SKIN: No rashes, ecchymoses or lesions. Cool and dry. CARDIOVASCULAR: Regular rate and rhythm without murmurs, gallops, or rubs. RESPIRATORY: Breath sounds equal bilaterally. Expiratory wheezes which is improving GASTROINTESTINAL: Abdomen soft, non-tender, distended. No guarding. MUSCULOSKELETAL: Extremities without clubbing, cyanosis, or edema. No joint tenderness, effusion, or edema noted. No calf tenderness. Negative Homans sign bilaterally. NEUROLOGICAL: Awake and alert. Cranial nerves II through XII intact. Motor and sensory grossly within normal limits. Five out of 5 muscle strength in all muscle groups. Normal speech. Procedures none A/P Problem List: (1) COPD (chronic obstructive pulmonary disease) ICD Code: J44.9 - Chronic obstructive pulmonary disease, unspecified Assessment and Plan This is a 72-year-old male who presents to the emergency department complaining of progressive shortness of breath associated with anxiety. He also has wheezing. Denies fever, chills. Patient has history of COPD COPD exacerbation with chronic respiratory failure on home oxygen. Chest x-ray image and evaluate me with no acute cardiopulmonary disease. Flu screen is negative. He is slowly improving but still with significant dyspnea continue scheduled nebulization, IV steroids, oxygen and Zithromax. Added Symbicort. Increase activity as tolerated Hyperglycemia. A1c 5.2 Abdominal distention secondary to constipation. Denies abdominal pain and tenderness. He is stooling continue bowel regimen and monitor Chronic medical conditions of chronic back pain, hyperlipidemia, hypertension, GERD and anxiety. Stable continue outpatient medications as appropriate including BuSpar and Zoloft DVT prophylaxis with SCD and Lovenox Discharge Planning Possible discharge in morning. High likelihood of readmission Collin Rowe MD Oct 14, 2017 13:55
[2017-10-14] MEDS: ENOXAPARIN SODIUM 40 MG/0.4 ML SYRINGE SQ SCH (16:24)
[2017-10-14] MEDS: PRAVASTATIN SOD 20 MG TAB PO SCH (21:22)
[2017-10-14] MEDS: MIRTAZAPINE 15 MG TAB PO SCH (21:22)
[2017-10-15] VITALS (10 sets, daily range): BP systolic 127–171; BP diastolic 74–93; PULSE 95–115; RESP 18–22; TEMP 97.7–98.8; O2SAT 95–98
[2017-10-15] MEDS: RESP: ALBUTEROL 2.5 MG/IPRATROPIUM 0.5 MG NEB (SCH) INH ×4 (07:56→19:44)
[2017-10-15] MEDS: BUDESONIDE-FORMOTEROL 160/4.5 MCG INHALER INH SCH ×2 (08:16→20:05)
[2017-10-15] MEDS: TIOTROPIUM BROMIDE 18 MCG INH INH SCH (08:16)
[2017-10-15] MEDS: SODIUM CHLORIDE 0.9% FLUSH 10 ML FLUSH IV FLUSH SCH ×2 (08:18→20:06)
[2017-10-15] MEDS: methylPREDNISolone SOD SUCC 125 MG/2 ML VIAL IV PUSH SCH (08:18)
[2017-10-15] MEDS: FUROSEMIDE 20 MG TAB PO SCH (08:19)
[2017-10-15] MEDS: busPIRone HCL 10 MG TAB PO SCH ×2 (08:19→20:06)
[2017-10-15] MEDS: SERTRALINE HCL 50 MG TAB PO SCH (08:19)
[2017-10-15] MEDS: DOCUSATE SODIUM 50 MG/SENNA 8.6 MG TAB PO SCH ×2 (08:20→20:06)
[2017-10-15] MEDS: CHOLECALCIFEROL (VIT D3) 1000 UNIT TAB PO SCH (08:20)
[2017-10-15] MEDS: PANTOPRAZOLE SOD 20 MG DELAYED RELEASE TAB PO SCH ×2 (08:20→20:06)
[2017-10-15] MEDS: predniSONE 20 MG TAB PO SCH ×2 (11:01→20:05)
--- NOTE | 2017-10-15 14:34 | HHI.PR ---
Subjective Remarks Patient reports he is feeling slightly better. States he still feels tight and breathing is not at baseline yet. Still having some faint wheezing. Objective Vitals Vital Signs Date Time Temp Pulse Resp B/P (MAP) Pulse Ox O2 Delivery O2 Flow Rate FiO2 10/15/17 12:00 101 10/15/17 12:00 97.7 105 20 143/76 (98) 95 10/15/17 08:00 97.9 101 18 127/74 (91) 96 10/15/17 08:00 110 10/15/17 08:00 Nasal Cannula 2.00 10/15/17 07:58 98 Nasal Cannula 2.00 10/15/17 04:00 96 10/15/17 04:00 Nasal Cannula 2.00 10/15/17 03:54 97.9 95 20 140/85 (103) 97 10/15/17 00:00 100 10/15/17 00:00 Nasal Cannula 2.00 10/15/17 00:00 97.8 101 20 142/80 (100) 97 10/14/17 21:00 Nasal Cannula 2.00 10/14/17 20:01 98 Nasal Cannula 2.00 10/14/17 20:00 112 10/14/17 20:00 98.3 107 21 133/99 (110) 94 10/14/17 17:25 107 10/14/17 16:17 97.9 104 19 149/72 (97) 98 I/O 10/14/17 10/14/17 10/14/17 10/15/17 10/15/17 10/15/17 07:00 15:00 23:00 07:00 15:00 23:00 Intake Total 240 ml 840 ml 240 ml Output Total 750 ml Balance 240 ml 840 ml -510 ml Intake Oral 240 ml 840 ml 240 ml Output Urine Total 750 ml # Voids 4 3 # Bowel Movements 1 1 0 Result Diagram: 10/14/17 0900 Objective Remarks GENERAL: Chronically ill-appearing male, in no apparent distress. CARDIOVASCULAR: Normal rate and regular rhythm without murmurs, gallops, or rubs. RESPIRATORY: Air movement is fair. Faint and diffuse expiratory wheezing GASTROINTESTINAL: Abdomen soft, non-tender, non-distended. Normal active bowel sounds MUSCULOSKELETAL: Extremities without cyanosis, or edema. NEURO: Alert & Oriented x4 to person, place, time, situation. Moves all ext x4 PSYCH: Appropriate mood and affect. Procedures none A/P Problem List: (1) COPD (chronic obstructive pulmonary disease) ICD Code: J44.9 - Chronic obstructive pulmonary disease, unspecified Assessment and Plan 72-year-old male who presents to the emergency department complaining of progressive shortness of breath associated with anxiety. He also has wheezing. Denies fever, chills. Patient has history of COPD COPD exacerbation with chronic respiratory failure on home oxygen. Chest x-ray image with no acute cardiopulmonary disease. Flu screen is negative. He is slowly improving but still with significant dyspnea continue scheduled nebulization, IV steroids, oxygen and Zithromax. Added Symbicort. Increase activity as tolerated Hyperglycemia. A1c 5.2 Abdominal distention secondary to constipation. Denies abdominal pain and tenderness. He is stooling continue bowel regimen and monitor Chronic medical conditions of chronic back pain, hyperlipidemia, hypertension, GERD and anxiety. Stable continue outpatient medications as appropriate including BuSpar and Zoloft Physical deconditioning: PT recommend SNF. Patient has been refusing. He is now agreeable DVT prophylaxis with SCD and Lovenox Discharge Planning Plan to DC to SNF tomorrow. Discussed with case management. Steve Oneill MD Oct 15, 2017 14:34
[2017-10-15] MEDS: ENOXAPARIN SODIUM 40 MG/0.4 ML SYRINGE SQ SCH (15:54)
[2017-10-15] MEDS: PRAVASTATIN SOD 20 MG TAB PO SCH (20:06)
[2017-10-15] MEDS: MIRTAZAPINE 15 MG TAB PO SCH (20:06)
[2017-10-16] VITALS: BP 120/69; PULSE 96; RESP 20; TEMP 97.8; O2SAT 94
[2017-10-16 04:00] VITALS: BP 118/79; PULSE 96; PULSE 99; RESP 20; TEMP 97.9; O2SAT 95
[2017-10-16] MEDS: SODIUM CHLORIDE 0.9% FLUSH 10 ML FLUSH IV FLUSH SCH (07:27)
[2017-10-16 07:54] VITALS: PULSE 94
[2017-10-16 08:00] VITALS: BP 159/74; PULSE 92; RESP 21; TEMP 97.8; O2SAT 95
[2017-10-16] MEDS: RESP: ALBUTEROL 2.5 MG/IPRATROPIUM 0.5 MG NEB (SCH) INH ×3 (08:07→15:58)
[2017-10-16 08:09] VITALS: O2SAT 97
[2017-10-16] MEDS: FUROSEMIDE 20 MG TAB PO SCH (08:12)
[2017-10-16] MEDS: CHOLECALCIFEROL (VIT D3) 1000 UNIT TAB PO SCH (08:12)
[2017-10-16] MEDS: predniSONE 20 MG TAB PO SCH (08:12)
[2017-10-16] MEDS: SERTRALINE HCL 50 MG TAB PO SCH (08:13)
[2017-10-16] MEDS: busPIRone HCL 10 MG TAB PO SCH (08:13)
[2017-10-16] MEDS: DOCUSATE SODIUM 50 MG/SENNA 8.6 MG TAB PO SCH (08:13)
[2017-10-16] MEDS: PANTOPRAZOLE SOD 20 MG DELAYED RELEASE TAB PO SCH (08:13)
[2017-10-16] MEDS: TIOTROPIUM BROMIDE 18 MCG INH INH SCH (08:13)
[2017-10-16] MEDS: BUDESONIDE-FORMOTEROL 160/4.5 MCG INHALER INH SCH (08:13)
[2017-10-16 12:00] VITALS: BP 148/76; PULSE 105; RESP 24; TEMP 97.8; O2SAT 96
--- NOTE | 2017-10-16 13:57 | HHI.DS ---
Discharge Summary Admission Date Oct 10, 2017 at 01:09 Discharge Date: Oct 16, 2017 Admitting Diagnosis CP and tachycardia (1) COPD (chronic obstructive pulmonary disease) ICD Code: J44.9 - Chronic obstructive pulmonary disease, unspecified Procedures none Brief History - From Admission HPI from the admitting physician. This is a 72-year-old male with a history of chronic back pain, hyperlipidemia, hypertension, GERD, anxiety, COPD chronic respiratory failure on home oxygen. Patient presents to the emergency department complaining of progressive shortness of breath associated with anxiety. He also has wheezing. Denies fever, chills,. Patient was admitted to the chest pain center was ruled out for UT. Dr. Mendoza requested consultation to evaluate and manage COPD exacerbation and for transfer of care. All other systems reviewed negative CBC/BMP: 10/14/17 0900 Significant Findings Laboratory Tests Test 10/14/17 09:00 Blood Urea Nitrogen 19 MG/DL (7-18) Random Glucose 162 MG/DL (74-106) Calcium Level 8.3 MG/DL (8.5-10.1) Magnesium Level 2.6 MG/DL (1.5-2.5) Estimat Glomerular Filtration Rate 85 ML/MIN (>89) Imaging Last Impressions Chest X-Ray 10/09/17 9330 Signed Impressions: Service Date/Time: Monday, October 09, 2017 18:20 - CONCLUSION: No acute disease. No significant changes compared to the prior study. Олег Lopez MD PE at Discharge GENERAL: Chronically ill-appearing male, in no apparent distress. CARDIOVASCULAR: Normal rate and regular rhythm without murmurs, gallops, or rubs. RESPIRATORY: Air movement is fair. Faint and diffuse expiratory wheezing GASTROINTESTINAL: Abdomen soft, non-tender, non-distended. Normal active bowel sounds MUSCULOSKELETAL: Extremities without cyanosis, or edema. NEURO: Alert & Oriented x4 to person, place, time, situation. Moves all ext x4 PSYCH: Appropriate mood and affect. Pt update on day of discharge Patient reports he is feeling much better. He is moving air better. Plan for DC to SNF today. Hospital Course 72-year-old male who presents to the emergency department complaining of chest pain and progressive shortness of breath associated with anxiety. Patient initially admitted to the chest pain center but was ruled out. It became apparent that his symptoms are secondary to COPD. COPD exacerbation with chronic respiratory failure on home oxygen. Chest x-ray image with no acute cardiopulmonary disease. Flu screen is negative. He is slowly improving but still with significant dyspnea continue scheduled nebulization, patient was treated with IV steroids, oxygen and Zithromax. Added Symbicort. He was followed by pulmonology. His symptoms slowly improved. He is discharged on a prednisone taper, azithromycin and maintenance therapy for COPD. He is advised to continue to use oxygen. Hyperglycemia. A1c 5.2. No pharmacologic treatment indicated. Advised patient to follow a low-carb diet. Chronic medical conditions of chronic back pain, hyperlipidemia, hypertension, GERD and anxiety. Stable continue outpatient medications as appropriate including BuSpar and Zoloft Physical deconditioning: PT recommend SNF. Patient initially refused but he later agreed. He is discharged to half-way facility to continue with rehabilitation efforts. Pt Condition on Discharge: Good Discharge Disposition: Discharge to SNF Discharge Time: > 30 minutes Discharge Instructions DIET: Follow Instructions for: Heart Healthy Diet Activities you can perform: Regular-No Restrictions Follow up Referrals: PCP Follow-up - 1 Week Pulmonology - 1 Week SNF/[facility]/ with [facility] New Medications: Prednisone (Prednisone) 20 Mg Tab 20 MG PO DIRECTED for Inflammation, #11 TAB 0 Refills two pills a day x 3 days, then one pill daily x 3 days, then half a pill daily x 3 days Azithromycin (Azithromycin) 250 Mg Tab 250 MG PO DAILY for Infection, #1 TAB Continued Medications: Albuterol 8.5 GM Inh (Proair Hfa 8.5 GM Inh) 90 Mcg/Act Aer 2 PUFF INH Q6H PRN for SHORTNESS OF BREATH, #1 INHALER 0 Refills 108 mcg/actuation Amlodipine (Amlodipine) 10 Mg Tab 10 MG PO DAILY for Blood Pressure Management, #30 TAB 0 Refills Buspirone (Buspirone) 10 Mg Tab 10 MG PO BID for Anxiety, TAB 0 Refills Cholecalciferol (Vitamin D3) 1,000 Unit Tab 2000 UNITS PO DAILY for Nutritional Supplement, #1 BOTTLE 0 Refills Ipratropium-Albuterol Neb (Duoneb) 0.5-2.5 Mg/3 Ml Neb 1 NEBULE INH Q6HR NEB for Breathing Treatment, #120 NEBULE 0 Refills Mirtazapine (Mirtazapine) 15 Mg Tab 15 MG PO HS for Depression Control, #30 TAB 0 Refills Olodaterol Inh (Striverdi Respimat Inh) 2.5 Mcg/Actuation Aer 2 INH DAILY Omeprazole (Omeprazole) 20 Mg Tab 20 MG PO BID, #30 TAB 0 Refills Pravastatin (Pravastatin) 20 Mg Tab 20 MG PO HS for Cholesterol Management, #30 TAB 0 Refills Sertraline (Sertraline) 25 Mg Tab 25 MG PO DAILY, #30 TAB 0 Refills Tiotropium Inh (Spiriva Handihaler) 18 Mcg Cap 18 MCG INH DAILY for COPD, #30 CAP 0 Refills 1 capsule = 18 mcg Steve Oneill MD Oct 16, 2017 13:57
[2017-10-16] MEDS: ENOXAPARIN SODIUM 40 MG/0.4 ML SYRINGE SQ SCH (15:13)
== END 2017-10-16 17:01 ==
LOC: NEPE 17:54 → NEDA 10-10 01:09 → NEPFCDU 10-10 04:28 → N04B 10-10 19:19
PROVIDERS: ADMIT Family Medicine; ATTEND Family Medicine
DX: J44.1 Chronic obstructive pulmonary disease with (acute) exacerbation (principal); R14.0 Abdominal distension (gaseous); B34.9 Viral infection, unspecified; F41.9 Anxiety disorder, unspecified; M54.9 Dorsalgia, unspecified; G89.29 Other chronic pain; I10 Essential (primary) hypertension; J45.909 Unspecified asthma, uncomplicated; E78.5 Hyperlipidemia, unspecified; K21.9 Gastro-esophageal reflux disease without esophagitis; R00.0 Tachycardia, unspecified; R73.9 Hyperglycemia, unspecified; Z79.899 Other long term (current) drug therapy; Z87.891 Personal history of nicotine dependence; Z99.81 Dependence on supplemental oxygen
CPT/HCPCS: 71046; 80048; 82550; 82552; 83036; 83735; 84484; 85025; 85610; 85730; 87804; 93005; 94150; 94618; 94640; 94664; 96372; 96374; 96375; 96376; 97116; 97162; 99285; G0378; G8987; G8988; J1650; J2930; J7512

== ENCOUNTER 2018-06-19 20:26 | Inpatient (IN) ==
--- NOTE | 2018-06-19 21:02 | XR ---
EXAM DATE: 06/19/2018 8:38 PM EDT AGE/SEX: 73 years / Male INDICATIONS: Short of breath. CLINICAL DATA: This is the patient's initial encounter. Patient reports that signs and symptoms have been present for 1 day and indicates a pain score of 0/10. MEDICAL/SURGICAL HISTORY: None. None. COMPARISON: [facility] [place] [facility] [place], 10/09/2017. . FINDINGS: A single AP view of the chest demonstrates the lungs to be symmetrically aerated without evidence of mass, infiltrate or effusion. The cardiomediastinal contours are unremarkable. Osseous structures are intact. There is a mild to moderate S shaped thoracolumbar curvature. CONCLUSION: No evidence of acute cardiopulmonary disease. Electronically signed by: Jimy Gold MD 06/19/2018 9:01 PM EDT
--- NOTE | 2018-06-19 21:07 | ED ---
HPI General Chief complaint: Respiratory Symptoms Stated complaint: SOB Time Seen by Provider: 06/19/18 20:33 Source: patient Mode of arrival: ambulatory Limitations: no limitations History of Present Illness HPI narrative: 73-year-old male presents the emergency department for evaluation of shortness of breath that started today. Patient is a poor historian but states he has a history of COPD on O2 2LPM. He denies chest pain. Denies leg or abdominal pain. Onset (ago): hour(s) Severity: mild Associated symptoms: Denies chest pain, cough, fever/chills, loss of appetite and nausea/vomiting Treatments prior to arrival: Reports none Related Data Home Medications Medication Instructions Recorded Confirmed albuterol sulfate [ProAir HFA] 1 puff INHALATION Q4-6H PRN 06/19/18 06/19/18 amlodipine 5 mg PO DAILY 06/19/18 06/19/18 cholecalciferol (vitamin D3) 1,000 unit PO DAILY 06/19/18 06/19/18 [Vitamin D3] hydrochlorothiazide 25 mg PO DAILY 06/19/18 06/19/18 meloxicam 15 mg PO DAILY 06/19/18 06/19/18 olodaterol [Striverdi Respimat] 2 inh INHALATION DAILY 06/19/18 06/19/18 omeprazole 20 mg PO DAILY 06/19/18 06/19/18 potassium chloride 10 meq PO DAILY 06/19/18 06/19/18 tiotropium bromide [Spiriva 2 puff INHALATION DAILY 06/19/18 06/19/18 Respimat] Allergies Allergy/AdvReac Type Severity Reaction Status Date / Time shellfish derived Allergy Severe Anaphylaxis Verified 10/10/17 13:48 Review of Systems ROS: all other systems reviewed are negative [facility] Medical History Medical History Anxiety (Acute) Asthma (Acute) COPD (chronic obstructive pulmonary disease) (Acute) Chronic back pain (Acute) Hypertension (Acute) Family History Family History Other Diabetes mellitus Social History Social History Substance History: No History of Abuse Second Hand Smoke Exposure: No Smoking Status: Former smoker How Often Do You Have a Drink Containing Alcohol: Monthly or less Recent Travel in [facility] within the Last 8 Weeks: No Recent Out of Country Travel within the Last 8 Weeks: No Immunization History Tetanus Immunization: Unsure Exam Narrative Exam Narrative: GENERAL: WD, WN, anxious SKIN: Focused skin assessment warm/dry. HEAD: Atraumatic. Normocephalic. EYES: Pupils equal and round. No scleral icterus. No injection or drainage. ENT: No nasal bleeding or discharge. Mucous membranes pink and moist. NECK: Trachea midline. No JVD. CARDIOVASCULAR: Regular rate and rhythm. No murmur appreciated. RESPIRATORY: No accessory muscle use. decreased breath sounds diffusely. Wheezing present at upper lobes GASTROINTESTINAL: Abdomen soft, non-tender, nondistended. Hepatic and splenic margins not palpable. MUSCULOSKELETAL: No obvious deformities. No clubbing. No cyanosis. No edema. NEUROLOGICAL: Awake and alert. No obvious cranial nerve deficits. Motor grossly within normal limits. Normal speech. PSYCHIATRIC: Very thick accent and does not articulate well, anxious Course Initial Documented Vital Signs Temperature 98.2 F 06/19/18 20:28 Pulse Rate 112 H 06/19/18 20:28 Respiratory Rate 30 H 06/19/18 20:28 Blood Pressure 163/92 H 06/19/18 20:28 Pulse Oximetry 93 L 06/19/18 20:28 Last Documented Vital Signs Temperature 98.1 F 06/20/18 15:17 Pulse Rate 129 H 06/20/18 15:25 Respiratory Rate 26 H 06/20/18 15:25 Blood Pressure 168/86 H 06/20/18 15:17 Pulse Oximetry 97 06/20/18 15:17 Medical Decision Making [facility] Narrative Medical decision making narrative: 73-year-old male with a history of COPD dependent on O2, anxiety presents to the emergency department for evaluation of shortness of breath that started today. Upon initial evaluation of the patient , patient screams when disrobing him for better evaluation. He states he is screaming because he can't breathe. Patient is redirectable however and calms down once I start talking to him. After review the EMR, patient was admitted to the chest pain center in October of this year. The physical exam findings then were similar to today's presentation. He has diminished air movement with wheezing. Vital signs demonstrate blood pressure 134/85, SaO2 98% on 2 L normal saline, heart rate 112. EKG sinus tachycardia rate [address] elevation or depression. Labs are stable. Cardiac enzymes negative. BNP 9. No leukocytosis. Chest x-ray stable. No acute process. Albuterol nebs x 3. Patient continues to be short of breath. Solumedrol 125mg IV. Ativan for anxiety. 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 Patient was walked with respiratory therapy on 2LPM. SaO2 maintained 95-97% however, became short of breath and required frequent breaks. I spoke my attending who also evaluated the patient. Patient continues to have significant diminished breath sounds with wheezing. She agreed that patient should be admitted for an observation period to ensure stability. Ordered Azithromycin for treatment of possible sinusitis vs developing pneumonia. Will admit to observation to ensure stability. Medical Screen Exam Complete: Yes Emergency Medical Condition: Yes Differential Diagnosis Differential Diagnosis: COPD exacerbation, pneumonia, URI, bronchitis Lab Data Result diagrams: 06/19/18 20:56 06/19/18 20:56 Lab Results 06/19/18 06/19/18 06/19/18 Range/Units 20:56 20:56 20:56 WBC 8.2 (4.0-11.0) th/mm3 RBC 4.66 (4.50-5.90) mil/mm3 Hgb 13.6 (13.0-17.0) gm/dL Hct 41.5 (39.0-51.0) % MCV 88.9 (80.0-100.0) fL MCH 29.3 (27.0-34.0) pg MCHC 32.9 (32.0-36.0) % RDW 13.1 (11.6-17.2) % Plt Count 145 L (150-450) th/mm3 MPV 10.4 (7.0-11.0) fL Neut % (Auto) 61.3 (16.0-70.0) % Lymph % (Auto) 28.3 (9.0-44.0) % [place] % (Auto) 8.8 H (0.0-8.0) % Eos % (Auto) 1.3 (0.0-4.0) % Baso % (Auto) 0.3 (0.0-2.0) % Neut # (Auto) 5.0 (1.8-7.7) th/mm3 Lymph # (Auto) 2.3 (1.0-4.8) th/mm3 [place] # (Auto) 0.7 (0.0-0.9) th/mm3 Eos # (Auto) 0.1 (0.0-0.4) th/mm3 Baso # (Auto) 0.0 (0.0-0.2) th/mm3 WBC Differential . Differential Comment Auto diff final PT 10.3 (9.8-11.6) sec INR 1.0 Ratio APTT 27.3 (24.3-30.1) sec Sodium 142 (136-145) meq/L Potassium 3.4 L (3.5-5.1) meq/L Chloride 97 L (98-107) meq/L Carbon Dioxide 39.3 H (21.0-32.0) meq/L Anion Gap 6 (5-15) meq/L BUN 15 (7-18) mg/dL Creatinine 1.21 (0.60-1.30) mg/dL Estimated GFR 71 L (>89) mL/min Random Glucose 90 (74-106) mg/dL Calcium 9.2 (8.5-10.1) mg/dL Magnesium (1.5-2.5) mg/dL Total Bilirubin 0.8 (0.2-1.0) mg/dL AST 25 (15-37) U/L ALT 26 (12-78) U/L Alkaline Phosphatase 106 (45-117) U/L Total Creatine Kinase (39-308) U/L CK-MB (CK-2) (0.5-3.6) ng/mL Troponin I Less than 0.02 L (0.02-0.05) ng/mL B-Natriuretic Peptide (0-100) pg/mL Total Protein 8.8 H (6.4-8.2) g/dL Albumin 4.2 (3.4-5.0) g/dL Urine Color (Yellw/Straw) Urine Clarity (Clear) Urine pH (5.0-8.5) Ur Specific [place] (1.002-1.035) Urine Protein (Neg-Trace) mg/dL Urine Glucose (UA) (Negative) mg/dL Urine Ketones (Negative) mg/dL Urine Occult Blood (Negative) Urine Nitrate (Negative) Urine Bilirubin (Negative) Urine Urobilinogen (Less than 2) mg/dL Ur Leukocyte Esterase (Negative) Urine RBC (0-3) /hpf Urine WBC (0-5) /hpf Hyaline Casts (0-3) /lpf Urine Mucus (Occasional) /lpf Micro UA Comment Ur Microscopic Review Urine Culture Comments 06/19/18 06/19/18 06/20/18 Range/Units 20:56 20:56 04:40 WBC (4.0-11.0) th/mm3 RBC (4.50-5.90) mil/mm3 Hgb (13.0-17.0) gm/dL Hct (39.0-51.0) % MCV (80.0-100.0) fL MCH (27.0-34.0) pg MCHC (32.0-36.0) % RDW (11.6-17.2) % Plt Count (150-450) th/mm3 MPV (7.0-11.0) fL Neut % (Auto) (16.0-70.0) % Lymph % (Auto) (9.0-44.0) % [place] % (Auto) (0.0-8.0) % Eos % (Auto) (0.0-4.0) % Baso % (Auto) (0.0-2.0) % Neut # (Auto) (1.8-7.7) th/mm3 Lymph # (Auto) (1.0-4.8) th/mm3 [place] # (Auto) (0.0-0.9) th/mm3 Eos # (Auto) (0.0-0.4) th/mm3 Baso # (Auto) (0.0-0.2) th/mm3 WBC Differential Differential Comment PT (9.8-11.6) sec INR Ratio APTT (24.3-30.1) sec Sodium (136-145) meq/L Potassium (3.5-5.1) meq/L Chloride (98-107) meq/L Carbon Dioxide (21.0-32.0) meq/L Anion Gap (5-15) meq/L BUN (7-18) mg/dL Creatinine (0.60-1.30) mg/dL Estimated GFR (>89) mL/min Random Glucose (74-106) mg/dL Calcium (8.5-10.1) mg/dL Magnesium 2.0 (1.5-2.5) mg/dL Total Bilirubin (0.2-1.0) mg/dL AST (15-37) U/L ALT (12-78) U/L Alkaline Phosphatase (45-117) U/L Total Creatine Kinase 205 (39-308) U/L CK-MB (CK-2) 2.3 (0.5-3.6) ng/mL Troponin I (0.02-0.05) ng/mL B-Natriuretic Peptide 9 (0-100) pg/mL Total Protein (6.4-8.2) g/dL Albumin (3.4-5.0) g/dL Urine Color Yellow (Yellw/Straw) Urine Clarity Clear (Clear) Urine pH 6.0 (5.0-8.5) Ur Specific [place] 1.017 (1.002-1.035) Urine Protein Negative (Neg-Trace) mg/dL Urine Glucose (UA) Negative (Negative) mg/dL Urine Ketones Negative (Negative) mg/dL Urine Occult Blood Negative (Negative) Urine Nitrate Negative (Negative) Urine Bilirubin Negative (Negative) Urine Urobilinogen 2.0 H (Less than 2) mg/dL Ur Leukocyte Esterase Negative (Negative) Urine RBC 2 (0-3) /hpf Urine WBC 1 (0-5) /hpf Hyaline Casts 4 (0-3) /lpf Urine Mucus Few H (Occasional) /lpf Micro UA Comment Culture not ind Ur Microscopic Review Not Reportable Urine Culture Comments Culture not ind Imaging Data Radiologist's impression: Chest X-Ray 06/19/18 20:38 CONCLUSION: No evidence of acute cardiopulmonary disease. Discharge Plan Discharge Disposition Patient Disposition: 30 Still Patient Discharge Condition Condition: Stable Discharge Details Diagnosis: Acute exacerbation of chronic obstructive pulmonary disease (COPD), Sinusitis Physicians Team ED Provider: Heidi Lemus ED Midlevel Provider: Laxmi Wood Primary Care Provider: [facility],Physician 's Attending Provider: Kamila Larry Other Providers: [employer] Status ED Status: Left Department Discharge Information Discharge Date/Time: 06/20/18 13:59
[2018-06-19 21:20] LABS: Baso % (Auto) 0.3 % (0.0-2.0); Eos # (Auto) 0.1 th/mm3 (0.0-0.4); Eos % (Auto) 1.3 % (0.0-4.0); Hematocrit 41.5 % (39.0-51.0); Hemoglobin 13.6 gm/dL (13.0-17.0); Lymph # (Auto) 2.3 th/mm3 (1.0-4.8); Lymph % (Auto) 28.3 % (9.0-44.0); Mean Corpuscular HGB Conc 32.9 % (32.0-36.0); Mean Corpuscular Hemoglobin 29.3 pg (27.0-34.0); Mean Corpuscular Volume 88.9 fL (80.0-100.0); Mean Platelet Volume 10.4 fL (7.0-11.0); Mono # (Auto) 0.7 th/mm3 (0.0-0.9); Mono % (Auto) 8.8 % (0.0-8.0); Neut % (Auto) 61.3 % (16.0-70.0); Platelet Count 145 th/mm3 (150-450); Red Blood Count 4.66 mil/mm3 (4.50-5.90); Red Cell Distribution Width 13.1 % (11.6-17.2); White Blood Count 8.2 th/mm3 (4.0-11.0)
[2018-06-19] MEDS ORDERED: MethylPREDNISolone Sod Succinate Inj 125 MG/2 ML Vial IV.PUSH ONE (21:29)
[2018-06-19 21:40] LABS: Albumin 4.2 g/dL (3.4-5.0); Anion Gap 6 meq/L (5-15); Aspartate Aminotransferase 25 U/L (15-37); Blood Urea Nitrogen 15 mg/dL (7-18); Calcium 9.2 mg/dL (8.5-10.1); Carbon Dioxide 39.3 meq/L (21.0-32.0); Chloride 97 meq/L (98-107); Glomerular Filtration Rate 71 mL/min (>89); Glucose,Random 90 mg/dL (74-106); Potassium 3.4 meq/L (3.5-5.1); Sodium 142 meq/L (136-145)
[2018-06-19 21:41] LABS: Creatine Kinase 205 U/L (39-308)
[2018-06-19 21:46] LABS: Alanine Aminotransferase 26 U/L (12-78); Alkaline Phosphatase 106 U/L (45-117); Total Protein 8.8 g/dL (6.4-8.2)
[2018-06-19 21:48] LABS: Activated Partial Thrombo Time 27.3 sec (24.3-30.1); Prothrombin Time 10.3 sec (9.8-11.6)
[2018-06-19 22:04] LABS: Creatine Kinase MB 2.3 ng/mL (0.5-3.6)
[2018-06-19] MEDS ORDERED: Azithromycin 250 MG Tablet PO ONE (23:39)
[2018-06-20] MEDS ORDERED: Bisacodyl 10 MG Supp RECTAL PRN (02:11)
--- NOTE | 2018-06-20 02:19 | P.HP ---
History of Present Illness Service: [facility] Primary Care Physician: [facility] History of Present Illness: 73-year-old male with past medical history significant for COPD (on 3 L nasal cannula at home), hypertension, hyperlipidemia and anxiety presents for evaluation of shortness of breath times 2 weeks. The patient reports that he does not feel as though his oxygen is working because of his nasal congestion. He reports constantly spitting up his postnasal drip. He denies any fever/ chills. No chills. No abdominal pain. No nausea/vomiting/diarrhea. Review of Systems All other systems reviewed negative except as stated in HPI PMFSH - History History Provided By: Patient - Medical History Medical History: Medical History (Last Reviewed 06/20/18 @ 02:15 by Daly Aquino MD) Anxiety Asthma COPD (chronic obstructive pulmonary disease) Chronic back pain Hypertension - Surgical History Surgical History: Surgical History (Last Reviewed 06/20/18 @ 02:15 by Daly Aquino MD) No history of previous surgery - Family History Family History: Family History (Last Updated 06/20/18 @ 02:15 by Daly Aquino MD) Other Diabetes mellitus - Tobacco History Second Hand Smoke Exposure: No Tobacco Use In Past 30 Days: No Smoking Status: Former smoker - Alcohol History How Often Do You Have a Drink Containing Alcohol: Monthly or less - Substance Use History Substance History: No History of Abuse - Travel History Recent Travel in the [place] Within the Last 8 Weeks: No Recent Travel Out of the Country Within the Last 8 Weeks: No - Immunization History Tetanus Immunization: Unsure Medications and Allergies Allergies Allergy/AdvReac Type Severity Reaction Status Date / Time shellfish derived Allergy Severe Anaphylaxis Verified 10/10/17 13:48 Home Medications Medication Instructions Recorded Confirmed Type albuterol sulfate [ProAir HFA] 1 puff INHALATION Q4-6H PRN 06/19/18 06/19/18 History amlodipine 5 mg PO DAILY 06/19/18 06/19/18 History cholecalciferol (vitamin D3) 1,000 unit PO DAILY 06/19/18 06/19/18 History [Vitamin D3] hydrochlorothiazide 25 mg PO DAILY 06/19/18 06/19/18 History meloxicam 15 mg PO DAILY 06/19/18 06/19/18 History olodaterol [Striverdi Respimat] 2 inh INHALATION DAILY 06/19/18 06/19/18 History omeprazole 20 mg PO DAILY 06/19/18 06/19/18 History potassium chloride 10 meq PO DAILY 06/19/18 06/19/18 History tiotropium bromide [Spiriva 2 puff INHALATION DAILY 06/19/18 06/19/18 History Respimat] Exam Vital signs: Vital Signs 06/19/18 20:28 06/19/18 20:30 06/19/18 22:04 Temperature 98.2 F Pulse Rate 112 H 112 H 92 H Respiratory Rate 30 H 24 28 H Blood Pressure 163/92 H 134/85 Pulse Oximetry 93 L 99 99 Pulse Oximetry [Exertion with Oxygen] 06/19/18 22:09 06/19/18 23:32 Temperature Pulse Rate 103 H Respiratory Rate 26 H Blood Pressure Pulse Oximetry Pulse Oximetry [Exertion with Oxygen] 95 Intake & Output 06/19/18 06/19/18 06/20/18 06:59 18:59 06:59 Weight 84.822 kg Narrative: Gen.: No acute distress Head: Normocephalic. Atraumatic. EENT: Pupils equal round and reactive to light. Nose without drainage. Airway intact. Throat without injection. Cardiovascular: Regular rate and rhythm. No murmurs, rubs or gallops. Respiratory: Bilateral wheezes throughout Abdomen: Soft, nontender, nondistended. No peritoneal signs. Musculoskeletal: No gross deformities. No edema. Skin: No obvious rashes or erythema. Neuro: Sensory and motor grossly intact. Cranial nerves II through XII grossly intact. Results - Labs CBC & Chem 7: 06/19/18 20:56 06/19/18 20:56 Labs: Laboratory Results - last 24 hr 06/19/18 06/19/18 06/19/18 20:56 20:56 20:56 WBC 8.2 RBC 4.66 Hgb 13.6 Hct 41.5 MCV 88.9 MCH 29.3 MCHC 32.9 RDW 13.1 Plt Count 145 L MPV 10.4 Neut % (Auto) 61.3 Lymph % (Auto) 28.3 [place] % (Auto) 8.8 H Eos % (Auto) 1.3 Baso % (Auto) 0.3 Neut # (Auto) 5.0 Lymph # (Auto) 2.3 [place] # (Auto) 0.7 Eos # (Auto) 0.1 Baso # (Auto) 0.0 WBC Differential . Differential Comment Auto diff final PT 10.3 INR 1.0 APTT 27.3 Sodium 142 Potassium 3.4 L Chloride 97 L Carbon Dioxide 39.3 H Anion Gap 6 BUN 15 Creatinine 1.21 Estimated GFR 71 L Random Glucose 90 Calcium 9.2 Magnesium Total Bilirubin 0.8 AST 25 ALT 26 Alkaline Phosphatase 106 Total Creatine Kinase CK-MB (CK-2) Troponin I Less than 0.02 L B-Natriuretic Peptide Total Protein 8.8 H Albumin 4.2 06/19/18 06/19/18 20:56 20:56 WBC RBC Hgb Hct MCV MCH MCHC RDW Plt Count MPV Neut % (Auto) Lymph % (Auto) [place] % (Auto) Eos % (Auto) Baso % (Auto) Neut # (Auto) Lymph # (Auto) [place] # (Auto) Eos # (Auto) Baso # (Auto) WBC Differential Differential Comment PT INR APTT Sodium Potassium Chloride Carbon Dioxide Anion Gap BUN Creatinine Estimated GFR Random Glucose Calcium Magnesium 2.0 Total Bilirubin AST ALT Alkaline Phosphatase Total Creatine Kinase 205 CK-MB (CK-2) 2.3 Troponin I B-Natriuretic Peptide 9 Total Protein Albumin - Imaging Impressions Chest X-Ray 06/19/18 20:38 CONCLUSION: No evidence of acute cardiopulmonary disease. Caprini VTE Risk Assessment Caprini VTE Risk Assessment: Moderate/High Risk (score >= 2) Caprini Risk Assessment Model: Point Value = 1 Point Value = 2 Point Value = 3 Point Value = 5 Age 41-60 Minor surgery BMI > 25 kg/m2 Swollen legs Varicose veins or History of unexplained or recurrent spontaneous Oral contraceptives or hormone replacement Sepsis (< 1 month) Serious lung disease, including pneumonia (< 1 month) Abnormal pulmonary function Acute myocardial infarction Congestive heart failure (< 1 month) History of inflammatory bowel disease Medical patient at bed rest Age 61-74 Arthroscopic surgery Major open surgery (> 45 min) Laparoscopic surgery (> 45 min) Malignancy Confined to bed (> 72 hours) Immobilizing plaster cast Central venous access Age >= 75 History of VTE Family history of VTE Factor V Leiden Prothrombin [id number] Lupus anticoagulant Anticardiolipin antibodies Elevated serum homocysteine Heparin-induced thrombocytopenia Other congenital or acquired thrombophilia Stroke (< 1 month) Elective arthroplasty Hip, pelvis, or leg fracture Acute spinal cord injury (< 1 month) Prophylaxis Regimen: Total Risk Factor Score Risk Level Prophylaxis Regimen 0-1 Low Early ambulation 2 Moderate Order ONE of the following: *Sequential Compression Device (SCD) *Heparin 5000 units SQ BID 3-4 Higher Order ONE of the following medications: *Heparin 5000 units SQ TID *Enoxaparin/Lovenox 40 mg SQ daily (WT < 150 kg, CrCl > 30 mL/min) *Enoxaparin/Lovenox 30 mg SQ daily (WT < 150 kg, CrCl > 10-29 mL/min) *Enoxaparin/Lovenox 30 mg SQ BID (WT < 150 kg, CrCl > 30 mL/min) AND/OR *Sequential Compression Device (SCD) 5 or more Highest Order ONE of the following medications: *Heparin 5000 units SQ TID (Preferred with Epidurals) *Enoxaparin/Lovenox 40 mg SQ daily (WT < 150 kg, CrCl > 30 mL/min) *Enoxaparin/Lovenox 30 mg SQ daily (WT < 150 kg, CrCl > 10-29 mL/min) *Enoxaparin/Lovenox 30 mg SQ BID (WT < 150 kg, CrCl > 30 mL/min) AND *Sequential Compression Device (SCD) Assessment and Plan - Plan Assessment/plan: 1. COPD exacerbation IV steroids Duo nebs Patient not hypoxic on home oxygen of 2 L Chest x-ray negative for acute process, personally reviewed 2. Sinusitis Augmentin 3. Hypertension Continue home medications FEN Heart healthy diet Electrolytes: That is post p.o. repletion of potassium, monitor BMP Heparin
[2018-06-20] MEDS: Heparin - SQ 10,000 UNITS/ML Vial SQ SCH ×3 (02:28→19:42)
[2018-06-20 04:48] LABS: Bilirubin,Urine Negative (Negative); Clarity,Urine Clear (Clear); Color,Urine Yellow (Yellw/Straw); Glucose,Urine (UA) Negative (Negative); Hyaline Casts,Urine 4 /lpf (0-3); Leukocyte Esterase,Urine Negative (Negative); Mucus,Urine Few /lpf (Occasional); Nitrite,Urine Negative (Negative); Specific Gravity,Urine 1.017 (1.002-1.035)
[2018-06-20] MEDS: MethylPREDNISolone Sod Succinate Inj 125 MG/2 ML Vial IV.PUSH SCH ×3 (05:31→19:42)
[2018-06-20] MEDS: Amoxicillin/Clavulanate 875/125 MG Tablet PO SCH ×2 (10:26→20:31)
[2018-06-20] MEDS: Senna/Docusate Sodium 8.6/50 MG Tablet PO SCH ×2 (10:26→20:31)
[2018-06-20] MEDS: hydroCHLOROthiazide 25 MG Tablet PO SCH (10:26)
[2018-06-20] MEDS: Pantoprazole Sodium 20 MG DR Tablet PO SCH (10:28)
[2018-06-20] MEDS: amLODIPine 5 MG Tablet PO SCH (10:31)
--- NOTE | 2018-06-20 16:59 | P.PN ---
Subjective Interval history: Follow-up visit for COPD exacerbation and sinusitis. Patient is seen and examined in [facility] and appears to be in no acute distress. He tells me that when he was at home he had mucus that "went sideways and got stuck". He denies any shortness of breath at the moment, cough, chest pain, headache, dizziness, nausea or vomiting. Physical Exam Vital signs: Vital Signs 06/19/18 20:28 06/19/18 20:30 06/19/18 22:04 Temperature 98.2 F Pulse Rate 112 H 112 H 92 H Respiratory Rate 30 H 24 28 H Blood Pressure 163/92 H 134/85 Pulse Oximetry 93 L 99 99 Pulse Oximetry [Exertion with Oxygen] 06/19/18 22:09 06/19/18 23:32 06/20/18 03:55 Temperature Pulse Rate 103 H 110 H Respiratory Rate 26 H 26 H Blood Pressure Pulse Oximetry Pulse Oximetry [Exertion with Oxygen] 95 06/20/18 04:19 06/20/18 05:49 06/20/18 07:43 Temperature Pulse Rate 99 H 96 H 102 H Respiratory Rate 18 18 22 Blood Pressure 167/79 H 153/98 H Pulse Oximetry 95 95 97 Pulse Oximetry [Exertion with Oxygen] 06/20/18 08:30 06/20/18 10:38 06/20/18 12:05 Temperature Pulse Rate 111 H 108 H 108 H Respiratory Rate 20 17 22 Blood Pressure 133/66 148/73 H Pulse Oximetry 96 96 Pulse Oximetry [Exertion with Oxygen] 06/20/18 15:02 06/20/18 15:17 06/20/18 15:25 Temperature 98.1 F Pulse Rate 126 H 128 H 129 H Respiratory Rate 18 24 26 H Blood Pressure 140/84 168/86 H Pulse Oximetry 97 Pulse Oximetry [Exertion with Oxygen] Intake & Output 06/19/18 06/20/18 06/20/18 18:59 06:59 18:59 Weight 84.822 kg Narrative: Gen.: No acute distress Head: Normocephalic. Atraumatic. EENT: Pupils equal round and reactive to light. Nose without drainage. Airway intact. Throat without injection. Cardiovascular: Tachycardic, no murmurs, rubs or gallops. Respiratory: Scant bilateral upper wheezing noted. Abdomen: Soft, nontender, nondistended. Positive bowel sounds Musculoskeletal: No gross deformities. No edema. Skin: No obvious rashes or erythema. Neuro: Awake, alert, oriented x3. Sensory and motor grossly intact. Cranial nerves II through XII grossly intact. Results - Labs CBC & Chem 7: 06/19/18 20:56 06/19/18 20:56 Laboratory Results - last 24 hr 06/19/18 06/19/18 06/19/18 20:56 20:56 20:56 WBC 8.2 RBC 4.66 Hgb 13.6 Hct 41.5 MCV 88.9 MCH 29.3 MCHC 32.9 RDW 13.1 Plt Count 145 L MPV 10.4 Neut % (Auto) 61.3 Lymph % (Auto) 28.3 [place] % (Auto) 8.8 H Eos % (Auto) 1.3 Baso % (Auto) 0.3 Neut # (Auto) 5.0 Lymph # (Auto) 2.3 [place] # (Auto) 0.7 Eos # (Auto) 0.1 Baso # (Auto) 0.0 WBC Differential . Differential Comment Auto diff final PT 10.3 INR 1.0 APTT 27.3 Sodium 142 Potassium 3.4 L Chloride 97 L Carbon Dioxide 39.3 H Anion Gap 6 BUN 15 Creatinine 1.21 Estimated GFR 71 L Random Glucose 90 Calcium 9.2 Magnesium Total Bilirubin 0.8 AST 25 ALT 26 Alkaline Phosphatase 106 Total Creatine Kinase CK-MB (CK-2) Troponin I Less than 0.02 L B-Natriuretic Peptide Total Protein 8.8 H Albumin 4.2 Urine Color Urine Clarity Urine pH Ur Specific [place] Urine Protein Urine Glucose (UA) Urine Ketones Urine Occult Blood Urine Nitrate Urine Bilirubin Urine Urobilinogen Ur Leukocyte Esterase Urine RBC Urine WBC Hyaline Casts Urine Mucus Micro UA Comment Ur Microscopic Review Urine Culture Comments 06/19/18 06/19/18 06/20/18 20:56 20:56 04:40 WBC RBC Hgb Hct MCV MCH MCHC RDW Plt Count MPV Neut % (Auto) Lymph % (Auto) [place] % (Auto) Eos % (Auto) Baso % (Auto) Neut # (Auto) Lymph # (Auto) [place] # (Auto) Eos # (Auto) Baso # (Auto) WBC Differential Differential Comment PT INR APTT Sodium Potassium Chloride Carbon Dioxide Anion Gap BUN Creatinine Estimated GFR Random Glucose Calcium Magnesium 2.0 Total Bilirubin AST ALT Alkaline Phosphatase Total Creatine Kinase 205 CK-MB (CK-2) 2.3 Troponin I B-Natriuretic Peptide 9 Total Protein Albumin Urine Color Yellow Urine Clarity Clear Urine pH 6.0 Ur Specific [place] 1.017 Urine Protein Negative Urine Glucose (UA) Negative Urine Ketones Negative Urine Occult Blood Negative Urine Nitrate Negative Urine Bilirubin Negative Urine Urobilinogen 2.0 H Ur Leukocyte Esterase Negative Urine RBC 2 Urine WBC 1 Hyaline Casts 4 Urine Mucus Few H Micro UA Comment Culture not ind Ur Microscopic Review Not Reportable Urine Culture Comments Culture not ind - Imaging Impressions Chest X-Ray 06/19/18 20:38 CONCLUSION: No evidence of acute cardiopulmonary disease. Assessment and Plan - Plan 1. COPD exacerbation IV steroids Duo nebs Patient not hypoxic on home oxygen of 2 L Chest x-ray negative for acute process, personally reviewed 2. Sinusitis Augmentin 3. Hypertension Continue home medications Tachycardia -EKG from admission reviewed, sinus tachycardia noted. -Patient with no leg edema and dry mucous membranes, provide for hydration. Hypokalemia, mild -Replaced orally, recheck labs DT prophylaxissubcu heparin Discussed Condition With: Discussed with patient and nursing staff.
[2018-06-20] MEDS: Sod Chloride 0.9% Inj 1,000 ML IV.CONT SCH (19:36)
[2018-06-20 19:50] LABS: Calcium 8.8 mg/dL (8.5-10.1); Carbon Dioxide 34.9 meq/L (21.0-32.0); Potassium 3.7 meq/L (3.5-5.1)
--- NOTE | 2018-06-20 21:20 | ECG ---
Date Performed: 06/19/2018 Time Performed: 20:46:28 PTAGE: 73 years EKG: SINUS TACHYCARDIA WITH SHORT SC INTERVAL LOW LIMB LEAD VOLTAGE Compared to previous tracing , AXIS IS LEFT LEFTWARD, otherwise no significant change ABNORMAL RHYTHM ECG PREVIOUS TRACING : 10/10/2017 03.43 DOCTOR: Sean Tavera Interpretating Date/Time 06/20/2018 21:19:03
[2018-06-21] MEDS: MethylPREDNISolone Sod Succinate Inj 125 MG/2 ML Vial IV.PUSH SCH ×5 (00:19→23:24)
[2018-06-21] MEDS: Heparin - SQ 10,000 UNITS/ML Vial SQ SCH ×3 (01:45→18:23)
[2018-06-21] MEDS: Sod Chloride 0.9% Inj 1,000 ML IV.CONT SCH ×2 (04:10→18:20)
[2018-06-21 08:54] LABS: Hematocrit 36.4 % (39.0-51.0); Hemoglobin 11.9 gm/dL (13.0-17.0); Mean Corpuscular HGB Conc 32.8 % (32.0-36.0); Mean Corpuscular Hemoglobin 29.5 pg (27.0-34.0); Mean Platelet Volume 10.7 fL (7.0-11.0); Platelet Count 132 th/mm3 (150-450); Red Blood Count 4.04 mil/mm3 (4.50-5.90); Red Cell Distribution Width 13.4 % (11.6-17.2); White Blood Count 15.2 th/mm3 (4.0-11.0)
[2018-06-21 09:08] LABS: Calcium 8.5 mg/dL (8.5-10.1); Carbon Dioxide 36.5 meq/L (21.0-32.0)
[2018-06-21 09:10] LABS: Potassium 4.7 meq/L (3.5-5.1)
[2018-06-21 09:54] LABS: Lymphocytes 4 % (9-44); Platelet Morphology Normal (Normal)
[2018-06-21] MEDS: hydroCHLOROthiazide 25 MG Tablet PO SCH (10:03)
[2018-06-21] MEDS: Amoxicillin/Clavulanate 875/125 MG Tablet PO SCH (10:03)
[2018-06-21] MEDS: Senna/Docusate Sodium 8.6/50 MG Tablet PO SCH ×2 (10:03→20:45)
[2018-06-21] MEDS: Pantoprazole Sodium 20 MG DR Tablet PO SCH (10:04)
[2018-06-21] MEDS: amLODIPine 5 MG Tablet PO SCH (10:57)
--- NOTE | 2018-06-21 13:51 | P.PNIM ---
Subjective Interval history: Patient complains of shortness of breath and difficulty breathing. He says his nose feels congested. He does not have any other complaints. Physical Exam Vital signs: Vital Signs 06/20/18 15:02 06/20/18 15:17 06/20/18 15:25 Temperature 98.1 F Pulse Rate 126 H 128 H 129 H Respiratory Rate 18 24 26 H Blood Pressure 140/84 168/86 H Pulse Oximetry 97 06/20/18 19:30 06/20/18 20:00 06/20/18 23:25 Temperature 98.3 F Pulse Rate 112 H 125 H 105 H Respiratory Rate 22 22 22 Blood Pressure 130/77 Pulse Oximetry 95 92 L 06/21/18 00:22 06/21/18 04:28 06/21/18 07:43 Temperature 97.8 F 98.4 F 98.2 F Pulse Rate 110 H 102 H 113 H Respiratory Rate 20 18 20 Blood Pressure 138/72 141/83 H 160/88 H Pulse Oximetry 95 95 95 06/21/18 08:15 06/21/18 12:00 06/21/18 12:33 Temperature 98.0 F Pulse Rate 112 H 115 H 110 H Respiratory Rate 18 18 16 Blood Pressure 163/82 H Pulse Oximetry 98 96 Intake & Output 06/20/18 06/21/18 06/21/18 18:59 06:59 18:59 Intake Total 1000 / 1000 Output Total 550 / 550 Balance 450 / 450 Weight 86.183 kg Intake: IV 1000 / 1000 NS Inj 1,000 ML @ 84 mls/hr IV. 1000 / 1000 CONT .[id number] [facility] Rx#:[id number] Output: Urine 550 / 550 Other: Weight On Admission 86.183 kg Narrative: General patient appears anxious. He complains of nasal congestion HEENT extraocular movements are intact, clear oropharyngeal mucosa Cardiovascular S1-S2 audible Respiratory mild wheezing bilaterally Abdomen soft, distended, normal bowel sounds. Extremities no edema, 2+ distal pulses in upper and lower extremities Neuro no neurological deficits Results - Labs CBC & Chem 7: 06/21/18 07:45 06/21/18 07:45 Laboratory Results - last 24 hr 06/20/18 06/21/18 06/21/18 18:59 07:45 07:45 WBC 15.2 H RBC 4.04 L Hgb 11.9 L Hct 36.4 L MCV 90.0 MCH 29.5 MCHC 32.8 RDW 13.4 Plt Count 132 L MPV 10.7 Prelim Diff (Auto) Manual diff required WBC Differential Manual diff final Seg Neuts % (Manual) 95 H Band Neuts % (Manual) 1 Lymphocytes % (Manual) 4 L Abs Neuts (Manual) 14.6 H Differential Comment . Platelet Estimate Low L Platelet Morphology Normal Sodium 140 139 Potassium 3.7 4.7 D Chloride 97 L 99 Carbon Dioxide 34.9 H 36.5 H Anion Gap 8 4 L BUN 25 H 27 H Creatinine 1.58 H 1.15 Estimated GFR 53 L 76 L Random Glucose 201 H D 196 H Calcium 8.8 8.5 Assessment and Plan - Plan This patient is a 73-year-old male with a diagnosis of COPD and uses 3 L of supplemental oxygen at home. The patient also has hypertension, dyslipidemia, and anxiety. He presented with complaints of shortness of breath over the past 2 weeks that is progressively been getting worse. Is also been having sinus congestion and feels that his oxygen is not working which makes him anxious. He also has been having a cough that does not seem to be getting better. Because of his symptoms he came into our emergency department for evaluation. 1. COPD exacerbation The patient is currently on 3 L of supplemental oxygen. He is still complaining of shortness of breath however oxygen saturations are around 95% on 3 L. Chest x-ray does not show any findings consistent with pneumonia. WBC count is elevated today which could be due to IV steroids however the differential is predominantly neutrophils with bandemia. He will be started on Rocephin and azithromycin today. Continue DuoNeb treatments 2. Sinusitis Continue current antibiotics. 3. Acute kidney injury likely prerenal Patient had an elevated serum creatinine which peaked at 1.58 and has now down trended to 1.1 after initiation of IV fluids. Likely prerenal and serum creatinine improving. 3. Hypertension Patient continues to remain hypertensive. His amlodipine will be changed to 10 mg daily. I will continue to monitor the patient's blood pressure and adjust his medications if needed. 4. Distended abdomen An ultrasound of the abdomen will be ordered. Bowel sounds are positive and the patient states he had a bowel movement 2 days ago. SCDs for DVT prophylaxis.
[2018-06-21] MEDS: Azithromycin Inj 250 MG in Sodium Chlor 0.9% Inj 250 ML IV.SIG SCH (14:37)
--- NOTE | 2018-06-21 16:13 | US ---
EXAM DATE: 06/21/2018 12:00 AM EDT AGE/SEX: 73 years / Male INDICATIONS: Ascites. CLINICAL DATA: This is the patient's initial encounter. Patient reports that signs and symptoms have been present for 1 day and indicates a pain score of 4/10. MEDICAL/SURGICAL HISTORY: Anemia. Asthma. Chronic obstructive pulmonary disease. Chronic roselyn k pain. Hypertension. None. COMPARISON: . FINDINGS: Masses: None Fluid Collections: None Other: None. CONCLUSION: 1. No ascites is identified within the abdomen. Electronically signed by: Abraham Arias MD 06/21/2018 4:11 PM EDT
--- NOTE | 2018-06-21 16:51 | XR ---
EXAM DATE: 06/21/2018 12:00 AM EDT AGE/SEX: 73 years / Male INDICATIONS: Abdominal distention. CLINICAL DATA: This is the patient's initial encounter. Patient reports that signs and symptoms have been present for 2 days and indicates a pain score of 0/10. MEDICAL/SURGICAL HISTORY: . Anemia. Asthma. Chronic obstructive pulmonary disease. Chronic back pain. Hypertension. None. . COMPARISON: No prior exams available for comparison. FINDINGS: The abdominal bowel gas pattern is normal. No abnormal masses, calcifications, or organomegaly is s een. The osseous structures are unremarkable. CONCLUSION: No acute findings. Mild constipation. Electronically signed by: Angus Millan MD 06/21/2018 4:50 PM EDT
[2018-06-22] MEDS: Heparin - SQ 10,000 UNITS/ML Vial SQ SCH ×2 (01:36→11:03)
[2018-06-22] MEDS: Sod Chloride 0.9% Inj 1,000 ML IV.CONT SCH ×2 (04:27→18:00)
[2018-06-22] MEDS: MethylPREDNISolone Sod Succinate Inj 125 MG/2 ML Vial IV.PUSH SCH ×4 (05:58→23:42)
[2018-06-22] MEDS: amLODIPine 10 MG Tablet PO SCH (08:37)
[2018-06-22] MEDS: Senna/Docusate Sodium 8.6/50 MG Tablet PO SCH ×2 (08:37→21:18)
[2018-06-22] MEDS: hydroCHLOROthiazide 25 MG Tablet PO SCH (08:37)
[2018-06-22] MEDS: Pantoprazole Sodium 20 MG DR Tablet PO SCH (08:37)
--- NOTE | 2018-06-22 14:40 | P.PNIM ---
Subjective Interval history: Patient planes of shortness of breath on exertion. He says his nasal congestion has improved since admission. Physical Exam Vital signs: Vital Signs 06/21/18 15:17 06/21/18 15:51 06/21/18 19:37 Temperature Pulse Rate 107 H 117 H 114 H Respiratory Rate 15 18 23 Blood Pressure 161/80 H Pulse Oximetry 92 L 97 06/22/18 00:02 06/22/18 00:26 06/22/18 03:50 Temperature Pulse Rate 112 H 110 H Respiratory Rate 18 18 Blood Pressure Pulse Oximetry 93 L 06/22/18 03:55 06/22/18 08:08 06/22/18 11:55 Temperature 98 F Pulse Rate 103 H 112 H 119 H Respiratory Rate 20 24 24 Blood Pressure 186/92 H Pulse Oximetry 95 99 06/22/18 12:00 Temperature Pulse Rate 124 H Respiratory Rate 20 Blood Pressure 181/91 H Pulse Oximetry 96 Intake & Output 06/21/18 06/22/18 06/22/18 18:59 06:59 18:59 Intake Total 1350 / 1350 2435 / 2435 100 / 100 Output Total 1110 / 1110 Balance 1350 / 1350 1325 / 1325 100 / 100 Weight 83.6 kg Intake: IV 1350 / 1350 1000 / 1000 100 / 100 NS Inj 1,000 ML @ 84 mls/hr IV. 1000 / 1000 1000 / 1000 CONT .[id number] [facility] Rx#:[id number] Azithromycin Inj 250 MG In NS 250 / 250 Inj 250 ML @ 250 mls/hr IV.SIG Q24H [facility] Rx#:[id number] Rocephin Inj 1,000 MG In NS Inj 100 / 100 100 / 100 100 ML @ 200 mls/hr IV.SIG Q24H [facility] Rx#:[id number] Oral 1435 / 1435 Output: Urine 1110 / 1110 Other: # Voids 3 Date of Last Bowel Movement 06/21/18 06/21/18 # Bowel Movements 2 Narrative: General patient appears anxious. He complains of nasal congestion HEENT extraocular movements are intact, clear oropharyngeal mucosa Cardiovascular S1-S2 audible Respiratory mild wheezing bilaterally Abdomen soft, distended, normal bowel sounds. Extremities no edema, 2+ distal pulses in upper and lower extremities Neuro no neurological deficits Results - Labs CBC & Chem 7: 06/21/18 07:45 06/21/18 07:45 - Imaging Impressions Abdomen Ultrasound 06/21/18 00:00 CONCLUSION: 1. No ascites is identified within the abdomen. Abdomen X-Ray 06/21/18 00:00 CONCLUSION: No acute findings. Mild constipation. Assessment and Plan - Plan This patient is a 73-year-old male with a diagnosis of COPD and uses 2 L of supplemental oxygen at home. The patient also has hypertension, dyslipidemia, and anxiety. He presented with complaints of shortness of breath over the past 2 weeks that is progressively been getting worse. Is also been having sinus congestion and feels that his oxygen is not working which makes him anxious. He also has been having a cough that does not seem to be getting better. Because of his symptoms he came into our emergency department for evaluation. 1. COPD exacerbation The patient is currently on 2 L of supplemental oxygen. He is still complaining of shortness of breath however oxygen saturations are around 95% on 3 L. On my physical examination today the patient still has a significant amount of wheezing bilaterally. Chest x-ray does not show any findings consistent with pneumonia. WBC count is elevated today which could be due to IV steroids however the differential is predominantly neutrophils with bandemia. He was started on Rocephin and azithromycin yesterday. We will continue IV antibiotics. Continue DuoNeb treatments Will change the patient's status from observation to admission. 2. Sinusitis Continue current antibiotics. Symptoms improving significantly over the past 2 days. He says he can now breathe through his nose. 3. Acute kidney injury likely prerenal After the initiation of IV fluids the patient's serum creatinine improved from 1.58 and is currently 1.1 as of yesterday. 3. Hypertension Patient continues to remain hypertensive. His amlodipine will be changed to 10 mg daily yesterday. Hydralazine will be started today. 4. Distended abdomen An ultrasound of the abdomen will be ordered. Bowel sounds are positive and the patient states he had a bowel movement 2 days ago. SCDs for DVT prophylaxis.
[2018-06-22] MEDS: hydrALAZINE 25 MG Tablet PO SCH ×2 (14:47→18:10)
[2018-06-22] MEDS: Azithromycin Inj 250 MG in Sodium Chlor 0.9% Inj 250 ML IV.SIG SCH (16:13)
[2018-06-23] MEDS: Sod Chloride 0.9% Inj 1,000 ML IV.CONT SCH ×2 (03:42→18:24)
[2018-06-23] MEDS: MethylPREDNISolone Sod Succinate Inj 125 MG/2 ML Vial IV.PUSH SCH ×3 (06:26→18:26)
[2018-06-23] MEDS: hydrALAZINE 25 MG Tablet PO SCH ×2 (09:02→14:17)
[2018-06-23] MEDS: hydroCHLOROthiazide 25 MG Tablet PO SCH (09:02)
[2018-06-23] MEDS: Pantoprazole Sodium 20 MG DR Tablet PO SCH (09:02)
[2018-06-23] MEDS: amLODIPine 10 MG Tablet PO SCH (09:02)
[2018-06-23] MEDS: Senna/Docusate Sodium 8.6/50 MG Tablet PO SCH ×2 (09:02→21:49)
--- NOTE | 2018-06-23 12:20 | XR ---
EXAM DATE: 06/23/2018 12:00 AM EDT AGE/SEX: 73 years / Male INDICATIONS: Shortness of breath. CLINICAL DATA: This is the patient's subsequent encounter. Patient reports that signs and symptoms h ave been present for 4 - 6 days and indicates a pain score of 3/10. MEDICAL/SURGICAL HISTORY: None. None. COMPARISON: C, CHEST 1V SINGLE AP, 06/19/2018. . FINDINGS: No new focal pleural or parenchymal opacities. The cardiomediastinal contours are unremarkable. Redem onstration of S-shaped thoracolumbar scoliosis. CONCLUSION: 1. No acute abnormality or significant interval change. Electronically signed by: Joshua Amin MD 06/23/2018 12:19 PM EDT
--- NOTE | 2018-06-23 16:59 | P.PNIM ---
Subjective Interval history: Patient is in his room noted to be arguing with his caregiver. Patient said he was frustrated this morning and discussing a personal issue with his caregiver. Physical Exam Vital signs: Vital Signs 06/22/18 17:30 06/22/18 18:13 06/22/18 19:22 Temperature 97.9 F Pulse Rate 116 H 114 H 121 H Respiratory Rate 24 22 Blood Pressure 147/98 H 167/88 H 135/82 Pulse Oximetry 95 98 06/22/18 20:06 06/22/18 23:57 06/23/18 00:00 Temperature 97.6 F Pulse Rate 110 H 109 H 110 H Respiratory Rate 22 19 23 Blood Pressure 143/89 H Pulse Oximetry 98 96 06/23/18 00:48 06/23/18 03:24 06/23/18 04:00 Temperature 98.1 F Pulse Rate 108 H 108 H 122 H Respiratory Rate 19 24 Blood Pressure 147/99 H Pulse Oximetry 98 06/23/18 08:05 06/23/18 09:07 06/23/18 12:00 Temperature 98.0 F 99 F Pulse Rate 102 H 116 H Respiratory Rate 20 28 H Blood Pressure 179/97 H 162/82 H Pulse Oximetry 98 96 99 Intake & Output 06/22/18 06/23/18 06/23/18 18:59 06:59 18:59 Intake Total 2310 / 2310 1240 / 1240 100 / 100 Balance 2310 / 2310 1240 / 1240 100 / 100 Intake: IV 1350 / 1350 1000 / 1000 100 / 100 NS Inj 1,000 ML @ 84 mls/hr IV. 1000 / 1000 1000 / 1000 CONT .[id number] [facility] Rx#:[id number] Azithromycin Inj 250 MG In NS 250 / 250 Inj 250 ML @ 250 mls/hr IV.SIG Q24H [facility] Rx#:[id number] Rocephin Inj 1,000 MG In NS Inj 100 / 100 100 / 100 100 ML @ 200 mls/hr IV.SIG Q24H [facility] Rx#:[id number] Oral 960 / 960 240 / 240 Other: # Voids 4 4 Date of Last Bowel Movement 06/22/18 06/23/18 # Bowel Movements 4 1 Narrative: General patient appears anxious. His nasal congestion has improved. HEENT extraocular movements are intact, clear oropharyngeal mucosa Cardiovascular S1-S2 audible Respiratory wheezing bilaterally Abdomen soft, distended, normal bowel sounds. Extremities 1+ pitting edema bilateral lower extremities up to the knees. Neuro no neurological deficits Results - Labs CBC & Chem 7: 06/21/18 07:45 06/21/18 07:45 Laboratory Results - last 24 hr 06/23/18 13:32 B-Natriuretic Peptide 32 - Imaging Impressions Chest X-Ray 06/23/18 00:00 CONCLUSION: 1. No acute abnormality or significant interval change. Assessment and Plan - Plan This patient is a 73-year-old male with a diagnosis of COPD and uses 2 L of supplemental oxygen at home. The patient also has hypertension, dyslipidemia, and anxiety. He presented with complaints of shortness of breath over the past 2 weeks that is progressively been getting worse. Is also been having sinus congestion and feels that his oxygen is not working which makes him anxious. He also has been having a cough that does not seem to be getting better. Because of his symptoms he came into our emergency department for evaluation. 1. COPD exacerbation The patient is currently on 2 L of supplemental oxygen. He is still complaining of shortness of breath however oxygen saturations are around 95% on 3 L. Patient still has wheezing bilaterally Repeat chest x-ray does not show any infiltrates or interstitial edema. Continue antibiotics for COPD exacerbation. Continue DuoNeb treatments The patient's abdomen is distended, abdominal ultrasound was done which did not show any evidence of ascites. KUB was also done which shows no evidence of obstruction. Patient is having bowel movements. 2. Sinusitis Continue current antibiotics. Symptoms improving significantly over the past 2 days. He says he can now breathe through his nose. 3. Acute kidney injury likely prerenal After the initiation of IV fluids the patient's serum creatinine improved from 1.58 and is currently 1.1 as of yesterday. Follow-up a.m. labs. 4. Hypertension Patient continues to remain hypertensive. His amlodipine will be changed to 10 mg daily yesterday. Hydralazine will be started yesterday, dose increased. 5. Anxiety Duloxetine started which is one of his home medications. SCDs for DVT prophylaxis.
[2018-06-23] MEDS: Azithromycin Inj 250 MG in Sodium Chlor 0.9% Inj 250 ML IV.SIG SCH (18:25)
[2018-06-23] MEDS: hydrALAZINE 50 MG Tablet PO SCH (18:26)
--- NOTE | 2018-06-23 18:57 | ECHRPT ---
Indication: CVA/TIA CONCLUSIONS Normal left ventricular size. Wall thickness is normal. The left ventricular systolic function is normal with an estimated ejection fraction in the range of 55-60%. The aortic valve is not well visualized. There is mild tricuspid valve regurgitation. The estimated pulmonary arterial pressure is 50 mmHg. BP: / HR: Rhythm: MEASUREMENTS (Male / Female) Normal Values Technical Quality:Very technically difficult study 2D ECHO LV Diastolic Diameter PLAX 3.9 cm 4.2 - 5.9 / 3.9 - 5.3 cm LV Systolic Diameter PLAX 2.5 cm IVS Diastolic Thickness 1.0 cm 0.6 - 1.0 / 0.6 - 0.9 cm LVPW Diastolic Thickness 1.0 cm 0.6 - 1.0 / 0.6 - 0.9 cm LV Relative Wall Thickness 0.5 RV Internal Dim ED PLAX 2.9 cm LVOT Diameter 1.9 cm Aortic Root Diameter 2.9 cm LA Systolic Diameter LX 2.7 cm 3.0 - 4.0 / 2.7 - 3.8 cm DOPPLER AV Peak Velocity 104.0 cm/s AV Peak Gradient 4.3 mmHg LVOT Peak Velocity 111.0 cm/s LVOT Peak Gradient 4.9 mmHg AV Area Cont Eq pk 3.0 cm Mitral E Point Velocity 91.8 cm/s Mitral A Point Velocity 91.8 cm/s Mitral E to A Ratio 1.0 LV E' Lateral Velocity 13.5 cm/s Mitral E to LV E' Lateral Ratio 6.8 LV E' Septal Velocity 12.7 cm/s Mitral E to LV E' Septal Ratio 7.2 TR Peak Velocity 319.0 cm/s TR Peak Gradient 40.7 mmHg Right Atrial Pressure 10.0 mmHg Pulmonary Artery Systolic Pressu 50.7 mmHg Right Ventricular Systolic Press 50.7 mmHg FINDINGS LEFT VENTRICLE Normal left ventricular size. Wall thickness is normal. The left ventricular systolic function is normal with an estimated ejection fraction in the range of 55-60%. RIGHT VENTRICLE Normal right ventricular size and systolic function. LEFT ATRIUM The left atrial size is normal. RIGHT ATRIUM The right atrial size is normal. ATRIAL SEPTUM Normal atrial septal thickness without atrial level shunting by limited color doppler interrogation. AORTA The aortic root and proximal ascending aorta are normal in size on limited imaging. MITRAL VALVE Structurally normal mitral valve. No mitral valve stenosis or regurgitation. AORTIC VALVE The aortic valve is not well visualized. TRICUSPID VALVE There is mild tricuspid valve regurgitation. The estimated pulmonary arterial pressure is 50 mmHg. PERICARDIUM No pericardial effusion. Thuan Ni MD, FACC (Electronically Signed) Final Date:23 June 2018 18:56
[2018-06-24] MEDS: MethylPREDNISolone Sod Succinate Inj 125 MG/2 ML Vial IV.PUSH SCH ×4 (00:39→17:19)
[2018-06-24] MEDS: Sod Chloride 0.9% Inj 1,000 ML IV.CONT SCH ×3 (02:29→18:37)
--- NOTE | 2018-06-24 09:24 | P.DS ---
Date of admission: 06/22/18 14:04 Primary care physician: [facility] Brief History from admission: 73-year-old male with past medical history significant for COPD (on 3 L nasal cannula at home), hypertension, hyperlipidemia and anxiety presents for evaluation of shortness of breath times 2 weeks. The patient reports that he does not feel as though his oxygen is working because of his nasal congestion. He reports constantly spitting up his postnasal drip. He denies any fever/ chills. No chills. No abdominal pain. No nausea/vomiting/diarrhea. DS: Medications - Discharge Medications Prescriptions: albuterol sulfate [ProAir HFA] 1 puff INHALATION Q4-6H PRN 30 Days g PRN Reason: Respiratory Distress amlodipine 10 mg PO DAILY 30 Days #60 tab hydralazine 50 mg PO TID #90 tab olodaterol [Striverdi Respimat] 2 inh INHALATION DAILY 30 Days g prednisone 10 mg PO PER PKG DIR #58 each tiotropium bromide [Spiriva Respimat] 2 puff INHALATION DAILY 30 Days g DS: Summary - Time Spent with Patient Total time spent providing and/or coordinating discharge services: - Quality: VTE Deep Vein Thrombosis/Pulmonary Embolism Present on Admission: No Exam Vital signs: Vital Signs 06/23/18 12:00 06/23/18 16:00 06/23/18 19:25 Temperature 99 F 98.2 F Pulse Rate 116 H 115 H 114 H Respiratory Rate 28 H 28 H 24 Blood Pressure 162/82 H 158/84 H Pulse Oximetry 99 96 06/23/18 20:00 06/23/18 23:19 06/24/18 00:00 Temperature 97.8 F 98.4 F Pulse Rate 118 H 118 H 111 H Respiratory Rate 16 24 16 Blood Pressure 156/77 H 163/85 H Pulse Oximetry 98 93 L 06/24/18 03:13 06/24/18 04:00 06/24/18 07:24 Temperature 98.4 F 97.8 F Pulse Rate 107 H 105 H 95 H Respiratory Rate 28 H 16 18 Blood Pressure 104/71 157/92 H Pulse Oximetry 94 L 97 Intake & Output 06/23/18 06/24/18 06/24/18 18:59 06:59 18:59 Intake Total 500 / 500 1090 / 1090 Balance 500 / 500 1090 / 1090 Intake: IV 500 / 500 850 / 850 NS Inj 1,000 ML @ 84 mls/hr IV. 400 / 400 600 / 600 CONT .[id number] [facility] Rx#:[id number] Azithromycin Inj 250 MG In NS 250 / 250 Inj 250 ML @ 250 mls/hr IV.SIG Q24H [facility] Rx#:[id number] Rocephin Inj 1,000 MG In NS Inj 100 / 100 100 ML @ 200 mls/hr IV.SIG Q24H [facility] Rx#:[id number] Oral 240 / 240 Other: # Voids 2 5 Date of Last Bowel Movement 06/24/18 # Bowel Movements 1 Results Labs on day of discharge: Labs from last 24 hours 06/23/18 13:32 B-Natriuretic Peptide 32 - Impressions ITS Impressions Abdomen Ultrasound 06/21/18 00:00 CONCLUSION: 1. No ascites is identified within the abdomen. Abdomen X-Ray 06/21/18 00:00 CONCLUSION: No acute findings. Mild constipation. Chest X-Ray 06/23/18 00:00 CONCLUSION: 1. No acute abnormality or significant interval change. Discharge Plan - Discharge Disposition Patient Disposition: /Home Health Service - Discharge Condition Condition: Stable - Discharge Order Discharge Orders: Discharge Order (Routine); Ordered 06/24/18 Ordered By: Heather Navas - Discharge Details Anticipated Discharge Date: 06/24/18 - Physicians Team Primary Care Provider: [facility] Attending Provider: Heather Navas Other Providers: Kristian Townsend
--- NOTE | 2018-06-24 09:25 | P.DCO ---
- Diagnosis (1) Acute exacerbation of chronic obstructive pulmonary disease (COPD) Status: Acute (2) Sinusitis Status: Acute - Physical Therapy Order: Evaluate and treat - Home Health Nursing Order: Medical education, Signs/symptoms of disease process, Medication education-adverse effect, Nursing assessment with vital signs - Case Management Consult Yes - Certification I have seen patient Fan Curry on 06/24/18. My clinical findings support the need for the requested home health care services because: Limited mobility due to disease progression, Patient has SOB I certify that my clinical findings support that this patient is homebound because: Post-op weakness, Hx COPD - exertion dyspnea/weakness (2) Sinusitis Qualifiers: Sinusitis location: frontal Chronicity: acute Recurrence: not specified as recurrent Qualified Code(s): J01.10 - Acute frontal sinusitis, unspecified
[2018-06-24] MEDS: amLODIPine 10 MG Tablet PO SCH (10:12)
[2018-06-24] MEDS: Pantoprazole Sodium 20 MG DR Tablet PO SCH (10:12)
[2018-06-24] MEDS: hydrALAZINE 50 MG Tablet PO SCH ×3 (10:12→19:06)
[2018-06-24] MEDS: hydroCHLOROthiazide 25 MG Tablet PO SCH (10:13)
[2018-06-24] MEDS: Senna/Docusate Sodium 8.6/50 MG Tablet PO SCH ×2 (10:13→21:15)
--- NOTE | 2018-06-24 10:35 | CT ---
EXAM DATE: 06/24/2018 8:11 AM EDT AGE/SEX: 73 years / Male INDICATIONS: Abdominal distention. CLINICAL DATA: This is the patient's initial encounter. Patient reports that signs and symptoms have been present for 4 - 6 days and indicates a pain score of 5/10. MEDICAL/SURGICAL HISTORY: Asthma. Chronic obstructive pulmonary disease. Hypertension. None. RADIATION DOSE: 13.66 CTDI (mGy) COMPARISON: No prior exams available for comparison. TECHNIQUE: Multiple contiguous axial images were obtained through the abdomen. Images were obtained using multiple row detector helical technique. Using automated exposure control and adjustment of the mA and/or kV according to patient size, radiation dose was kept as low as reasonably achievable to o btain optimal diagnostic quality images. DICOM format image data is available electronically for rev iew and comparison. FINDINGS: Lower Lungs: The visualized lower lungs are clear. Liver: The liver has a homogeneous density without space-occupying lesion. There is no dilation of th e biliary tree. Spleen: Homogeneous density without enlargement. Pancreas: Unremarkable without mass or calcification. Kidneys: Normal in size and shape. No evidence of mass or hydronephrosis. 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 Aorta: The aorta and proximal iliac vessels are grossly unremarkable without aneurysmal dilation. Bowel/Mesentery: The bowel loops are grossly unremarkable. The cecum and sigmoid colon have a normal configuration. Abdominal Wall: Intact. Retroperitoneum: No evidence of adenopathy in the retrocrural, para-aortic, or deep pelvic regions. Bladder: Contours are smooth. Reproductive Organs: No abnormal masses or calcifications seen. Inguinal: The inguinal region is unremarkable without evidence of adenopathy. Bony Structures: Unremarkable. CONCLUSION: 1. Benign appearing right adrenal mass. 2. No acute CT findings in the abdomen or pelvis. Electronically signed by: Jimy Lambert MD 06/24/2018 10:33 AM EDT
--- NOTE | 2018-06-24 10:50 | P.PN ---
Subjective Interval history: The patient appears in disc distress he complains of abdominal pain and distention. Some nausea but no vomiting. Says he did have a bowel movement no constipation no diarrhea. He is not wheezing at this time however he feels short of breath he has oxygen at home. He follows at the [facility]. No fever or chills. No cough. Physical Exam Vital signs: Vital Signs 06/23/18 12:00 06/23/18 16:00 06/23/18 19:25 Temperature 99 F 98.2 F Pulse Rate 116 H 115 H 114 H Respiratory Rate 28 H 28 H 24 Blood Pressure 162/82 H 158/84 H Pulse Oximetry 99 96 06/23/18 20:00 06/23/18 23:19 06/24/18 00:00 Temperature 97.8 F 98.4 F Pulse Rate 118 H 118 H 111 H Respiratory Rate 16 24 16 Blood Pressure 156/77 H 163/85 H Pulse Oximetry 98 93 L 06/24/18 03:13 06/24/18 04:00 06/24/18 07:24 Temperature 98.4 F 97.8 F Pulse Rate 107 H 105 H 95 H Respiratory Rate 28 H 16 18 Blood Pressure 104/71 157/92 H Pulse Oximetry 94 L 97 Intake & Output 06/23/18 06/24/18 06/24/18 18:59 06:59 18:59 Intake Total 500 / 500 1090 / 1090 Balance 500 / 500 1090 / 1090 Intake: IV 500 / 500 850 / 850 NS Inj 1,000 ML @ 84 mls/hr IV. 400 / 400 600 / 600 CONT .[id number] [facility] Rx#:[id number] Azithromycin Inj 250 MG In NS 250 / 250 Inj 250 ML @ 250 mls/hr IV.SIG Q24H [facility] Rx#:[id number] Rocephin Inj 1,000 MG In NS Inj 100 / 100 100 ML @ 200 mls/hr IV.SIG Q24H [facility] Rx#:[id number] Oral 240 / 240 Other: # Voids 2 5 Date of Last Bowel Movement 06/24/18 # Bowel Movements 1 Narrative: General appearance: 73-year-old -[place] male, appears anxious. Cardiovascular: S1-S2 audible Respiratory: Decreased breath sounds bilaterally, no wheezing at this time. No cough. Patient is on nasal cannula. Abdomen: Firm, distended, normal bowel sounds. Extremities 1+ pitting edema bilateral lower extremities up to the knees. Neuro: Grossly normal cranial nerves. Strength grossly normal. Normal speech. No neurological deficits Results - Labs CBC & Chem 7: 06/21/18 07:45 06/21/18 07:45 Laboratory Results - last 24 hr 06/23/18 13:32 B-Natriuretic Peptide 32 - Imaging Impressions Chest X-Ray 06/23/18 00:00 CONCLUSION: 1. No acute abnormality or significant interval change. Abdomen/Pelvis CT 06/24/18 00:00 CONCLUSION: 1. Benign appearing right adrenal mass. 2. No acute CT findings in the abdomen or pelvis. Assessment and Plan - Assessment (1) Acute exacerbation of chronic obstructive pulmonary disease (COPD) Code(s): J44.1 - Chronic obstructive pulmonary disease with (acute) exacerbation Status: Acute (2) Sinusitis Code(s): J32.9 - Chronic sinusitis, unspecified Status: Acute - Plan This patient is a 73-year-old male with a diagnosis of COPD and uses 2 L of supplemental oxygen at home. The patient also has hypertension, dyslipidemia, and anxiety. He presented with complaints of shortness of breath over the past 2 weeks that is progressively been getting worse. Is also been having sinus congestion and feels that his oxygen is not working which makes him anxious. He also has been having a cough that does not seem to be getting better. Because of his symptoms he came into our emergency department for evaluation. 1. COPD exacerbation The patient is currently on 2 L of supplemental oxygen. He is still complaining of shortness of breath however oxygen saturations are around 95% on 3 L. Patient still has wheezing bilaterally Repeat chest x-ray does not show any infiltrates or interstitial edema. Continue antibiotics for COPD exacerbation. Continue DuoNeb treatments Taper steroids The patient's abdomen is distended, abdominal ultrasound was done which did not show any evidence of ascites. KUB was also done which shows no evidence of obstruction. Patient is having bowel movements. 2. Sinusitis Continue current antibiotics. Symptoms improving significantly over the past 2 days. He says he can now breathe through his nose. 3. Acute kidney injury likely prerenal After the initiation of IV fluids the patient's serum creatinine improved from 1.58 and is currently 1.1 as of yesterday. Follow-up a.m. labs. 4. Hypertension Patient continues to remain hypertensive. His amlodipine will be changed to 10 mg daily yesterday. Hydralazine will be started yesterday, dose increased. 5. Anxiety 6. Abdominal pain and distention CT A/P reviewed no significant findings, adrenal mass incidental finding Consult GI for eval Duloxetine started which is one of his home medications. SCDs for DVT prophylaxis. Discharge plan discharge when improves and cleared by consultants. Patient with abdominal pain and distention and some nausea consult GI. Taper steroids. (2) Sinusitis Qualifiers: Qualified Code(s): J01.10 - Acute frontal sinusitis, unspecified
--- NOTE | 2018-06-24 15:31 | P.CONGI ---
History of Present Illness Consult date: 06/24/18 Consult reason: Abdominal pain Chief complaint: Shortness of Breath, COPD Exacerbation History of Present Illness: This is a 73-year-old morbid obese male who came to the hospital on 06/19/2018 with shortness of breath. 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 Patient has also been complaining of abdominal pain generalized which started approximately 6 months ago but worsened over the past 2 months according to his operating room surgical technologist. Patient also shows signs of acute on chronic anxiety with hollering at times and shortness of breath although his O2 sats appear to be between 95 and 97 on 2 L nasal cannula. Most of the information is being gathered from the operating room surgical technologist as patient is a poor historian. Patient denies any nausea or vomiting no hematemesis no rectal bleeding. Current labs show hemoglobin initially was 13.6 now 11.9, WBC mild increased 15.2, platelet count 132, PT/INR 1, bilirubin and LFTs are normal. On exam abdomen is round tight and very tympanic with soft bowel sounds CT was done which was unremarkable for any acute GI issues. Abdominal x-rays noted on 06/21/2018 showed mild constipation. Patient does appear to be passing some gas which seems to give him immediate relief. Gastroenterology was consulted to assist in his care. <Lucy Faulkner - Last Filed: 06/24/18 15:32> Review of Systems All other systems reviewed negative except as stated in HPI <Lucy Faulkner - Last Filed: 06/24/18 15:32> PMFSH - History History Provided By: Patient - Medical History Medical History: Medical History (Last Reviewed 06/20/18 @ 02:15 by Daly Aquino MD) Anxiety Asthma COPD (chronic obstructive pulmonary disease) Chronic back pain Hypertension - Surgical History Surgical History: Surgical History (Last Reviewed 06/20/18 @ 02:15 by Daly Aquino MD) No history of previous surgery - Family History Family History: Family History (Last Updated 06/20/18 @ 02:15 by Daly Aquino MD) Other Diabetes mellitus - Tobacco History Second Hand Smoke Exposure: No Tobacco Use In Past 30 Days: No Smoking Status: Former smoker Tobacco Type: Cigarettes - Alcohol History How Often Do You Have a Drink Containing Alcohol: Never - Substance Use History Substance History: No History of Abuse - Travel History Recent Travel in the [place] Within the Last 8 Weeks: No Recent Travel Out of the Country Within the Last 8 Weeks: No - Immunization History Tetanus Immunization: Unsure <Lucy Falukner - Last Filed: 06/24/18 15:32> - Medical History Medical History: Medical History (Last Reviewed 06/20/18 @ 02:15 by Daly Aquino MD) Anxiety Asthma COPD (chronic obstructive pulmonary disease) Chronic back pain Hypertension - Surgical History Surgical History: Surgical History (Last Reviewed 06/20/18 @ 02:15 by Daly Aquino MD) No history of previous surgery - Family History Family History: Family History (Last Updated 06/20/18 @ 02:15 by Daly Aquino MD) Other Diabetes mellitus <Anuj Damon - Last Filed: 06/24/18 23:24> Medications and Allergies Active Medications: Active Medications Acetaminophen (Tylenol) 650 mg PO Q4H PRN PRN Reason: Temp > 100.4 Al Hydroxide/Mg Hydroxide (Milk Of Magnkashif Liq) 30 ml PO Q12H PRN PRN Reason: Mild Constipation Amlodipine Besylate (Norvasc) 10 mg PO DAILY [facility] Last Admin: 06/24/18 10:12 Dose: 10 mg Bisacodyl (Dulcolax Supp) 10 mg RECTAL DAILY PRN PRN Reason: SEVERE CONSITIPATION Bisacodyl (Dulcolax Supp) 10 mg RECTAL DAILY [facility] Duloxetine HCl (Cymbalta) 20 mg PO DAILY [facility] Last Admin: 06/24/18 10:13 Dose: 20 mg Hydralazine HCl (Apresoline) 50 mg PO TID [facility] Last Admin: 06/24/18 13:35 Dose: 50 mg Hydrochlorothiazide (Hydrodiuril) 25 mg PO DAILY [facility] Last Admin: 06/24/18 10:13 Dose: 25 mg Sodium Chloride (Ns Inj) 1,000 mls @ 84 mls/hr IV.CONT .[id number] [facility] Last Infusion: 06/24/18 12:45 Dose: 0 mls/hr Azithromycin 250 mg/ Sodium (Chloride) 250 mls @ 250 mls/hr IV.SIG Q24H [facility] Last Infusion: 06/23/18 19:25 Dose: Infused Ceftriaxone Sodium 1,000 mg/ (Sodium Chloride) 100 mls @ 200 mls/hr IV.SIG Q24H [facility] Last Infusion: 06/23/18 16:20 Dose: Infused Lactulose (Lactulose Liq) 30 ml PO DAILY PRN PRN Reason: SEVERE CONSITIPATION Methylprednisolone Sodium Succinate (Solumedrol Inj) 60 mg IV.PUSH Q6H [facility] Last Admin: 06/24/18 06:21 Dose: 60 mg Ondansetron HCl (Zofran Inj) 4 mg IV.PUSH Q6H PRN PRN Reason: NAUSEA OR VOMITING Pantoprazole Sodium (Protonix) 20 mg PO DAILY [facility] Last Admin: 06/24/18 10:12 Dose: 20 mg Senna/Docusate Sodium (Maria Guadalupe-Colace) 1 tab PO BID [facility] Last Admin: 06/24/18 10:13 Dose: 1 tab Sennosides (Senokot) 17.2 mg PO Q12H PRN PRN Reason: Moderate Constipation Simethicone (Mylicon Chew) 80 mg PO [facility] Sodium Chloride (Ns Flush) 2 ml IV.FLUSH BID [facility] Last Admin: 06/24/18 10:13 Dose: 2 ml Sodium Chloride (Ns Flush) 2 ml IV.FLUSH PRN PRN PRN Reason: FLUSH AFTER USING IV ACCESS <Lucy Faulkner - Last Filed: 06/24/18 15:32> Active Medications: Active Medications Acetaminophen (Tylenol) 650 mg PO Q4H PRN PRN Reason: Temp > 100.4 Al Hydroxide/Mg Hydroxide (Milk Of Magnesia Liq) 30 ml PO Q12H PRN PRN Reason: Mild Constipation Amlodipine Besylate (Norvasc) 10 mg PO DAILY [facility] Last Admin: 06/24/18 10:12 Dose: 10 mg Bisacodyl (Dulcolax Supp) 10 mg RECTAL DAILY PRN PRN Reason: SEVERE CONSITIPATION Bisacodyl (Dulcolax Supp) 10 mg RECTAL DAILY [facility] Last Admin: 06/24/18 17:20 Dose: Not Given Duloxetine HCl (Cymbalta) 20 mg PO DAILY [facility] Last Admin: 06/24/18 10:13 Dose: 20 mg Hydralazine HCl (Apresoline) 50 mg PO TID [facility] Last Admin: 06/24/18 19:06 Dose: 50 mg Hydrochlorothiazide (Hydrodiuril) 25 mg PO DAILY [facility] Last Admin: 06/24/18 10:13 Dose: 25 mg Sodium Chloride (Ns Inj) 1,000 mls @ 84 mls/hr IV.CONT .[id number] [facility] Last Admin: 06/24/18 18:37 Dose: 84 mls/hr Azithromycin 250 mg/ Sodium (Chloride) 250 mls @ 250 mls/hr IV.SIG Q24H [facility] Last Infusion: 06/24/18 18:28 Dose: Infused Ceftriaxone Sodium 1,000 mg/ (Sodium Chloride) 100 mls @ 200 mls/hr IV.SIG Q24H [facility] Last Infusion: 06/24/18 17:25 Dose: Infused Lactulose (Lactulose Liq) 30 ml PO DAILY PRN PRN Reason: SEVERE CONSITIPATION Methylprednisolone Sodium Succinate (Solumedrol Inj) 60 mg IV.PUSH Q8H [facility] Last Admin: 06/24/18 17:19 Dose: 60 mg Ondansetron HCl (Zofran Inj) 4 mg IV.PUSH Q6H PRN PRN Reason: NAUSEA OR VOMITING Pantoprazole Sodium (Protonix) 20 mg PO DAILY [facility] Last Admin: 06/24/18 10:12 Dose: 20 mg Senna/Docusate Sodium (Maria Guadalupe-Colace) 1 tab PO BID [facility] Last Admin: 06/24/18 21:15 Dose: 1 tab Sennosides (Senokot) 17.2 mg PO Q12H PRN PRN Reason: Moderate Constipation Simethicone (Mylicon Chew) 80 mg PO [facility] Last Admin: 06/24/18 21:15 Dose: 80 mg Sodium Chloride (Ns Flush) 2 ml IV.FLUSH BID [facility] Last Admin: 06/24/18 21:15 Dose: 2 ml Sodium Chloride (Ns Flush) 2 ml IV.FLUSH PRN PRN PRN Reason: FLUSH AFTER USING IV ACCESS <Anuj Damon E - Last Filed: 06/24/18 23:24> Allergies Allergy/AdvReac Type Severity Reaction Status Date / Time shellfish derived Allergy Severe Anaphylaxis Verified 10/10/17 13:48 Home Medications Medication Instructions Recorded Confirmed Type cholecalciferol (vitamin D3) 1,000 unit PO DAILY 06/19/18 06/19/18 History [Vitamin D3] hydrochlorothiazide 25 mg PO DAILY 06/19/18 06/19/18 History meloxicam 15 mg PO DAILY 06/19/18 06/19/18 History omeprazole 20 mg PO DAILY 06/19/18 06/19/18 History potassium chloride 10 meq PO DAILY 06/19/18 06/19/18 History Exam Vital signs: Vital Signs 06/23/18 16:00 06/23/18 19:25 06/23/18 20:00 Temperature 98.2 F 97.8 F Pulse Rate 115 H 114 H 118 H Respiratory Rate 28 H 24 16 Blood Pressure 158/84 H 156/77 H Pulse Oximetry 96 98 06/23/18 23:19 06/24/18 00:00 06/24/18 03:13 Temperature 98.4 F Pulse Rate 118 H 111 H 107 H Respiratory Rate 24 16 28 H Blood Pressure 163/85 H Pulse Oximetry 93 L 06/24/18 04:00 06/24/18 07:24 06/24/18 09:00 Temperature 98.4 F 97.8 F Pulse Rate 105 H 95 H 117 H Respiratory Rate 16 18 Blood Pressure 104/71 157/92 H Pulse Oximetry 94 L 97 06/24/18 11:43 Temperature 97.5 F L Pulse Rate 111 H Respiratory Rate 20 Blood Pressure 174/75 H Pulse Oximetry 95 Intake & Output 06/23/18 06/24/18 06/24/18 18:59 06:59 18:59 Intake Total 500 / 500 1090 / 1090 Balance 500 / 500 1090 / 1090 Intake: IV 500 / 500 850 / 850 NS Inj 1,000 ML @ 84 mls/hr IV. 400 / 400 600 / 600 CONT .[id number] [facility] Rx#:[id number] Azithromycin Inj 250 MG In NS 250 / 250 Inj 250 ML @ 250 mls/hr IV.SIG Q24H [facility] Rx#:[id number] Rocephin Inj 1,000 MG In NS Inj 100 / 100 100 ML @ 200 mls/hr IV.SIG Q24H [facility] Rx#:[id number] Oral 240 / 240 Other: # Voids 2 5 Date of Last Bowel Movement 06/24/18 # Bowel Movements 1 - Constitutional mild distress, morbidly obese, chronically ill appearing, disheveled, agitated - Routine HEENT Exam Head: Present: normocephalic ENT: Present: mucous membranes moist - Routine Neck Exam Present: supple (Obese, short) - Routine Respiratory Exam Present: accessory muscle use (Currently wearing oxygen at 2-3 L nasal cannula) , decreased breath sounds, diminished air movement - Routine Cardiovascular Exam Present: S1, S2 - Routine Abdominal Exam Present: distended (Round, tympanic, generalized discomfort to even light palpation) <Lucy Faulkner - Last Filed: 06/24/18 15:32> Vital signs: Vital Signs 06/24/18 00:00 06/24/18 03:13 06/24/18 04:00 Temperature 98.4 F 98.4 F Pulse Rate 111 H 107 H 105 H Respiratory Rate 16 28 H 16 Blood Pressure 163/85 H 104/71 Pulse Oximetry 93 L 94 L 06/24/18 07:24 06/24/18 09:00 06/24/18 11:43 Temperature 97.8 F 97.5 F L Pulse Rate 95 H 117 H 111 H Respiratory Rate 18 20 Blood Pressure 157/92 H 174/75 H Pulse Oximetry 97 95 06/24/18 16:00 06/24/18 20:00 Temperature 97.8 F 98.1 F Pulse Rate 114 H 97 H Respiratory Rate 18 19 Blood Pressure 175/74 H 154/67 H Pulse Oximetry 95 98 Intake & Output 06/24/18 06/24/18 06/25/18 06:59 18:59 06:59 Intake Total 1090 / 1090 350 / 350 Balance 1090 / 1090 350 / 350 Intake: IV 850 / 850 350 / 350 NS Inj 1,000 ML @ 84 mls/hr IV. 600 / 600 CONT .[id number] [facility] Rx#:[id number] Azithromycin Inj 250 MG In NS 250 / 250 250 / 250 Inj 250 ML @ 250 mls/hr IV.SIG Q24H [facility] Rx#:[id number] Rocephin Inj 1,000 MG In NS Inj 100 / 100 100 ML @ 200 mls/hr IV.SIG Q24H [facility] Rx#:[id number] Oral 240 / 240 Other: # Voids 5 5 Date of Last Bowel Movement 06/24/18 06/24/18 # Bowel Movements 1 <Anuj Damon - Last Filed: 06/24/18 23:24> Results - Labs CBC & Chem 7: 06/21/18 07:45 06/21/18 07:45 - Imaging Impressions Abdomen/Pelvis CT 06/24/18 00:00 CONCLUSION: 1. Benign appearing right adrenal mass. 2. No acute CT findings in the abdomen or pelvis. <LucieLucy Shruthi - Last Filed: 06/24/18 15:32> - Labs CBC & Chem 7: 06/24/18 15:11 06/24/18 15:11 Labs: Laboratory Results - last 24 hr 06/24/18 06/24/18 15:11 15:11 Hgb 13.7 Hct 41.6 Sodium 139 Potassium 3.8 Chloride 98 Carbon Dioxide 36.2 H Anion Gap 5 BUN 25 H Creatinine 0.86 Estimated GFR Greater than 89 Random Glucose 158 H Calcium 8.9 Magnesium 2.2 - Imaging Impressions Abdomen/Pelvis CT 06/24/18 00:00 CONCLUSION: 1. Benign appearing right adrenal mass. 2. No acute CT findings in the abdomen or pelvis. <Anuj Damon - Last Filed: 06/24/18 23:24> Assessment and Plan - Plan 73-year-old morbid obese male who came to the hospital on 06/19/2018 with shortness of breath. 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 Patient has also been complaining of abdominal pain generalized which started approximately 6 months ago but worsened over the past 2 months according to his operating room surgical technologist. Patient also shows signs of acute on chronic anxiety with hollering at times and shortness of breath although his O2 sats appear to be between 95 and 97 on 2 L nasal cannula. Most of the information is being gathered from the operating room surgical technologist as patient is a poor historian. Patient denies any nausea or vomiting no hematemesis no rectal bleeding. Current labs show hemoglobin initially was 13.6 now 11.9, WBC mild increased 15.2, platelet count 132, PT/INR 1, bilirubin and LFTs are normal. On exam abdomen is round tight and very tympanic with soft bowel sounds CT was done which was unremarkable for any acute GI issues. Abdominal x-rays noted on 06/21/2018 showed mild constipation. Patient does appear to be passing some gas which seems to give him immediate relief. Gastroenterology was consulted to assist in his care. Aerophagia, possibly secondary to patient's end-stage COPD and air gasping as well as his increased agitation and anxiety Onset of symptoms approximately 6 months ago which have worsened over the past 2 -month. Abdomen is round semifirm and very tympanic. No recent EGD or colonoscopy, colonoscopy in the past but unknown time. Anemia, hemoglobin initially 13.6 trending down now 11.9 no obvious bleeding could be related to chronic disease versus inflammation versus ulcer disease. Leukocytosis unspecified, no fever noted History of end-stage COPD currently wears oxygen at home and has caregiver Abdominal pain probable secondary to #1 Plan Diet n.p.o. for now Consent for EGD in a.m. N.p.o. at midnight Attempt NG tube if patient will tolerate and connected to low intermittent suction with attempt to decompress abdomen. Bowel regimen including Dulcolax suppositories daily for now to relieve gas and encourage defecation Simethicone 80 mg PC and at bedtime Avoid drinking through a straw Meds per attending to avoid increased anxiety Monitor labs with special attention hemoglobin for any obvious bleed Supportive care If patient refuses NG tube placed on clear liquids and encourage patient to drink very slowly and swallow very slowly Further recommendations to follow Patient was seen per myself and Dr. Damon, note was written on his behalf <Lucy Faulkner - Last Filed: 06/24/18 15:32> - Plan Patient seen and examined Agree with above history and physical Continue with current supportive care Monitor labs We will plan for an EGD tomorrow <Anuj Damon - Last Filed: 06/24/18 23:24>
[2018-06-24 15:34] LABS: Hematocrit 41.6 % (39.0-51.0); Hemoglobin 13.7 gm/dL (13.0-17.0)
[2018-06-24 16:04] LABS: Anion Gap 5 meq/L (5-15); Blood Urea Nitrogen 25 mg/dL (7-18); Calcium 8.9 mg/dL (8.5-10.1); Carbon Dioxide 36.2 meq/L (21.0-32.0); Chloride 98 meq/L (98-107); Glomerular Filtration Rate Greater Than 89 mL/min (>89); Glucose,Random 158 mg/dL (74-106); Magnesium 2.2 mg/dL (1.5-2.5); Potassium 3.8 meq/L (3.5-5.1); Sodium 139 meq/L (136-145)
[2018-06-24] MEDS: Bisacodyl 10 MG Supp RECTAL SCH (17:20)
[2018-06-24] MEDS: Azithromycin Inj 250 MG in Sodium Chlor 0.9% Inj 250 ML IV.SIG SCH (17:23)
[2018-06-24] MEDS: Simethicone 80 MG Chew Tablet PO SCH ×2 (21:15)
[2018-06-25] MEDS: MethylPREDNISolone Sod Succinate Inj 125 MG/2 ML Vial IV.PUSH SCH ×3 (02:34→17:10)
[2018-06-25 04:24] LABS: ABG Base Excess 10.5 mmol/L (-2-2); ABG PCO2 84 mmHg (38-42); ABG PO2 71 mmHg (61-120)
--- NOTE | 2018-06-25 04:35 | P.PNADD ---
Addendum to Inpatient Note Reason for Addendum: Additional Documentation Additional information: Received a call from the [facility] charge nurse stating she placed the patient on 8L NC and he is not breathing very well. Patient is admitted for COPD exacerbation. Stat ABG, duoneb and chest xray was ordered. ABG returned with aPH 7.27, co2 of 82, O2 89. Bipap was ordered and patient was transferred to the unit for closer monitoring. ABG ordered to be done 30 mins after bipap placed. Once stable patient can be transitioned to a venti mask and then to NC. Patient is a co2 retainer and should not be placed on more than 4 L via a NC.
--- NOTE | 2018-06-25 04:53 | XR ---
EXAM DATE: 06/25/2018 12:00 AM EDT AGE/SEX: 73 years / Male INDICATIONS: Shortness of breath. CLINICAL DATA: This is the patient's subsequent encounter. Patient reports that signs and symptoms h ave been present for 1 week and indicates a pain score of Nonresponsive. MEDICAL/SURGICAL HISTORY: None. None. COMPARISON: [facility] [place], CHEST 1V SINGLE AP, 06/23/2018. . FINDINGS: The heart size is normal. There is minimal increased density medial right base. The left lung appears grossly clear. A significant effusion is not seen. There is a dextrocurvature of the thoracic spine. CONCLUSION: Suspected mild atelectasis or consolidation at the medial right base. Electronically signed by: Jimy Yanez MD 06/25/2018 4:52 AM EDT
[2018-06-25] MEDS: Sod Chloride 0.9% Inj 1,000 ML IV.CONT SCH ×2 (05:24→19:54)
[2018-06-25 06:43] LABS: ABG Base Excess 11.7 mmol/L (-2-2); ABG PCO2 74 mmHg (38-42); ABG PO2 92 mmHg (61-120)
[2018-06-25] MEDS: hydrALAZINE 50 MG Tablet PO SCH ×3 (08:36→17:22)
[2018-06-25] MEDS: Pantoprazole Sodium 20 MG DR Tablet PO SCH (08:36)
[2018-06-25] MEDS: Senna/Docusate Sodium 8.6/50 MG Tablet PO SCH ×2 (08:36→21:12)
[2018-06-25] MEDS: amLODIPine 10 MG Tablet PO SCH (08:36)
[2018-06-25] MEDS: Bisacodyl 10 MG Supp RECTAL SCH (08:38)
[2018-06-25] MEDS: hydroCHLOROthiazide 25 MG Tablet PO SCH (08:44)
[2018-06-25] MEDS: Simethicone 80 MG Chew Tablet PO SCH ×4 (10:11→21:11)
[2018-06-25] MEDS ORDERED: dilTIAZem 30 MG Tablet PO ONE (14:01)
--- NOTE | 2018-06-25 14:01 | P.PN ---
Subjective Interval history: Patient in bed appears with sob, he is on NC at this time, was on BiPAP overnight. Has NG tube. No fever or chills/ Cough. No wheezing at this time' Has a pulm dr at [place] Physical Exam Vital signs: Vital Signs 06/24/18 16:00 06/24/18 20:00 06/25/18 00:00 Temperature 97.8 F 98.1 F 98.3 F Pulse Rate 114 H 97 H 118 H Respiratory Rate 18 19 18 Blood Pressure 175/74 H 154/67 H 150/89 H Pulse Oximetry 95 98 100 06/25/18 03:45 06/25/18 04:00 06/25/18 04:45 Temperature 97.8 F Pulse Rate 104 H 109 H Respiratory Rate 32 H 19 Blood Pressure 140/60 Pulse Oximetry 100 96 06/25/18 05:03 06/25/18 05:17 06/25/18 05:25 Temperature 99.2 F Pulse Rate 110 H 107 H Respiratory Rate Blood Pressure 147/74 H Pulse Oximetry 99 100 06/25/18 05:26 06/25/18 05:33 06/25/18 06:00 Temperature Pulse Rate 108 H 109 H Respiratory Rate 27 H 21 Blood Pressure 159/74 H Pulse Oximetry 100 98 98 06/25/18 06:03 06/25/18 06:33 06/25/18 07:00 Temperature Pulse Rate 107 H 104 H 109 H Respiratory Rate 24 31 H 39 H Blood Pressure 155/81 H 156/85 H Pulse Oximetry 99 99 99 06/25/18 07:03 06/25/18 07:18 06/25/18 07:33 Temperature Pulse Rate 109 H 103 H 105 H Respiratory Rate 36 H 29 H 24 Blood Pressure 192/81 H 146/80 H 146/79 H Pulse Oximetry 98 99 98 06/25/18 08:00 06/25/18 08:03 06/25/18 08:08 Temperature 98.9 F Pulse Rate 107 H 110 H 104 H Respiratory Rate 28 H 27 H 25 H Blood Pressure 149/101 H 163/93 H Pulse Oximetry 100 100 100 06/25/18 08:33 06/25/18 09:00 06/25/18 09:03 Temperature Pulse Rate 103 H 110 H 107 H Respiratory Rate 21 39 H 19 Blood Pressure 161/98 H 162/106 H Pulse Oximetry 99 94 L 93 L Intake & Output 06/24/18 06/25/18 06/25/18 18:59 06:59 18:59 Intake Total 350 / 350 950 / 950 Balance 350 / 350 950 / 950 Intake: IV 350 / 350 950 / 950 NS Inj 1,000 ML @ 84 mls/hr IV. 950 / 950 CONT .[id number] WOLF Rx#:[id number] Azithromycin Inj 250 MG In NS 250 / 250 Inj 250 ML @ 250 mls/hr IV.SIG Q24H WOLF Rx#:[id number] Rocephin Inj 1,000 MG In NS Inj 100 / 100 100 ML @ 200 mls/hr IV.SIG Q24H WOLF Rx#:[id number] Other: # Voids 5 Date of Last Bowel Movement 06/24/18 06/24/18 Narrative: General appearance: 73-year-old -[place] male, appears anxious in distress with sob, NG tube in. Cardiovascular: S1-S2 audible Respiratory: Decreased breath sounds bilaterally, no wheezing at this time. No cough. Patient is on nasal cannula. Abdomen: Firm, distended, normal bowel sounds. Extremities 1+ pitting edema bilateral lower extremities up to the knees. Neuro: Grossly normal cranial nerves. Strength grossly normal. Normal speech. No neurological deficits Results - Labs CBC & Chem 7: 06/24/18 15:11 06/24/18 15:11 Laboratory Results - last 24 hr 06/24/18 06/24/18 06/25/18 15:11 15:11 03:40 Hgb 13.7 Hct 41.6 Puncture Site Left radial Patient Temperature 98.6 O2 Saturation 89 L* ABG pH 7.27 L* ABG pCO2 84 H* ABG pO2 71 ABG HCO3 37 H ABG O2 Content 16.6 ABG Base Excess 10.5 H ABG Methemoglobin 0.7 Raymon Test Present Hemoglobin 13.2 Carboxyhemoglobin 1.2 O2 Delivery Device Nasal cannula Liter Flow 4.00 Vent Setting Inspired O2 Critical Value Yes Sodium 139 Potassium 3.8 Chloride 98 Carbon Dioxide 36.2 H Anion Gap 5 BUN 25 H Creatinine 0.86 Estimated GFR Greater than 89 POC Glucose Random Glucose 158 H Calcium 8.9 Magnesium 2.2 06/25/18 06/25/18 03:51 06:32 Hgb Hct Puncture Site Right radial Patient Temperature 98.6 O2 Saturation 94 ABG pH 7.33 L ABG pCO2 74 H* ABG pO2 92 ABG HCO3 38 H ABG O2 Content 16.7 ABG Base Excess 11.7 H ABG Methemoglobin 1.3 Raymon Test Present Hemoglobin 12.6 Carboxyhemoglobin 1.3 O2 Delivery Device Bipap Liter Flow Vent Setting Ipap 12/ epap 6 Inspired O2 40 Critical Value Yes Sodium Potassium Chloride Carbon Dioxide Anion Gap BUN Creatinine Estimated GFR POC Glucose 155 H Random Glucose Calcium Magnesium - Imaging Impressions Chest X-Ray 06/25/18 00:00 CONCLUSION: Suspected mild atelectasis or consolidation at the medial right base. Assessment and Plan - Assessment (1) Acute exacerbation of chronic obstructive pulmonary disease (COPD) Code(s): J44.1 - Chronic obstructive pulmonary disease with (acute) exacerbation Status: Acute (2) Sinusitis Code(s): J32.9 - Chronic sinusitis, unspecified Status: Acute - Plan This patient is a 73-year-old male with a diagnosis of COPD and uses 2 L of supplemental oxygen at home. The patient also has hypertension, dyslipidemia, and anxiety. He presented with complaints of shortness of breath over the past 2 weeks that is progressively been getting worse. Is also been having sinus congestion and feels that his oxygen is not working which makes him anxious. He also has been having a cough that does not seem to be getting better. Because of his symptoms he came into our emergency department for evaluation. 1. COPD exacerbation Acute on chronic Respiratory failure requiring BiPAP on Bipap at night as patient with hypercapnia . Will consult pulm The patient is currently on 3 L of supplemental oxygen. He is still complaining of shortness of breath Patient still has wheezing bilaterally Repeat chest x-ray does not show any infiltrates or interstitial edema. Continue antibiotics for COPD exacerbation. Continue DuoNeb treatments Taper steroids The patient's abdomen is distended, abdominal ultrasound was done which did not show any evidence of ascites. KUB was also done which shows no evidence of obstruction. Patient is having bowel movements. 2. Sinusitis Continue current antibiotics. Symptoms improving significantly over the past 2 days. He says he can now breathe through his nose. 3. Acute kidney injury likely prerenal After the initiation of IV fluids the patient's serum creatinine improved from 1.58 and is currently 1.1 as of yesterday. Follow-up a.m. labs. 4. Hypertension Patient continues to remain hypertensive. His amlodipine will be changed to 10 mg daily yesterday. Hydralazine will be started yesterday, dose increased. 5. Anxiety 6. Abdominal pain and distention CT A/P reviewed no significant findings, adrenal mass incidental finding Consult GI for eval Duloxetine started which is one of his home medications. SCDs for DVT prophylaxis. Discharge plan discharge when improves and cleared by consultants. Patient with abdominal pain and distention and some nausea consulted GI plans for EGD, patint has an NG tube at this time. Taper steroids as tolerated. (2) Sinusitis Qualifiers: Sinusitis location: frontal Chronicity: acute Recurrence: not specified as recurrent Qualified Code(s): J01.10 - Acute frontal sinusitis, unspecified
[2018-06-25] MEDS ORDERED: dilTIAZem 30 MG Tablet PO PRN (14:03)
[2018-06-25] MEDS: Azithromycin Inj 250 MG in Sodium Chlor 0.9% Inj 250 ML IV.SIG SCH (17:59)
[2018-06-25] MEDS ORDERED: Lidocaine PF 1% Inj 5 ML Syringe OTHER ONE (19:20)
--- NOTE | 2018-06-25 19:39 | P.PCN ---
Date of procedure: 06/25/18 Pre-op diagnosis: Abdominal pain Procedure: PROCEDURE PERFORMED EGD PROCEDURE: The procedure, risks and benefits were discussed with Patient/POA and informed consent was obtained. Anesthesia sedated Patient with Diprivan. Patient was placed in the left lateral decubitus position. EGD: The Pentax videoscope was introduced through the oropharynx and advanced to the second portion of the duodenum under direct visualization. Retroflexion was performed in the stomach. FINDINGS: The esophagus this appeared to be unremarkable and within normal limits The stomach this to appear to be unremarkable and within normal limits The duodenum this to appear to be unremarkable and within normal limits ESTIMATED BLOOD LOSS: None SPECIMENS REMOVED: None COMPLICATIONS: None IMPRESSION: Normal EGD PLAN: Continue with current supportive care Not much to add from a GI standpoint we will sign off Anesthesia: MAC Surgeon: Anuj Damon Condition: stable Disposition: floor
--- NOTE | 2018-06-25 21:57 | P.PN ---
Subjective Interval history: Late entry the patient was seen earlier today Patient in bed appears with sob, he is on NC at this time, was on BiPAP overnight. Has NG tube. No fever or chills/ Cough. No wheezing at this time' Has a pulm dr at [place] Physical Exam Vital signs: Vital Signs 06/25/18 00:00 06/25/18 03:45 06/25/18 04:00 Temperature 98.3 F 97.8 F Pulse Rate 118 H 104 H 109 H Respiratory Rate 18 32 H 19 Blood Pressure 150/89 H 140/60 Pulse Oximetry 100 100 06/25/18 04:45 06/25/18 05:03 06/25/18 05:17 Temperature 99.2 F Pulse Rate 110 H 107 H Respiratory Rate Blood Pressure 147/74 H Pulse Oximetry 96 99 06/25/18 05:25 06/25/18 05:26 06/25/18 05:33 Temperature Pulse Rate 108 H Respiratory Rate 27 H Blood Pressure 159/74 H Pulse Oximetry 100 100 98 06/25/18 06:00 06/25/18 06:03 06/25/18 06:33 Temperature Pulse Rate 109 H 107 H 104 H Respiratory Rate 21 24 31 H Blood Pressure 155/81 H 156/85 H Pulse Oximetry 98 99 99 06/25/18 07:00 06/25/18 07:03 06/25/18 07:18 Temperature Pulse Rate 109 H 109 H 103 H Respiratory Rate 39 H 36 H 29 H Blood Pressure 192/81 H 146/80 H Pulse Oximetry 99 98 99 06/25/18 07:33 06/25/18 07:45 06/25/18 08:00 Temperature 98.9 F Pulse Rate 105 H 107 H Respiratory Rate 24 28 H Blood Pressure 146/79 H Pulse Oximetry 98 100 100 06/25/18 08:03 06/25/18 08:08 06/25/18 08:33 Temperature Pulse Rate 110 H 104 H 103 H Respiratory Rate 27 H 25 H 21 Blood Pressure 149/101 H 163/93 H 161/98 H Pulse Oximetry 100 100 99 06/25/18 09:00 06/25/18 09:03 06/25/18 11:00 Temperature Pulse Rate 110 H 107 H 106 H Respiratory Rate 39 H 19 Blood Pressure 162/106 H Pulse Oximetry 94 L 93 L 06/25/18 12:00 06/25/18 13:00 06/25/18 14:00 Temperature 98.7 F Pulse Rate 106 H 116 H 120 H Respiratory Rate 18 Blood Pressure 156/84 H Pulse Oximetry 98 06/25/18 15:00 06/25/18 15:12 06/25/18 16:00 Temperature 98 F Pulse Rate 118 H 88 Respiratory Rate 18 Blood Pressure 154/82 H Pulse Oximetry 98 98 06/25/18 17:00 06/25/18 18:00 06/25/18 19:40 Temperature 98.9 F Pulse Rate 120 H 120 H 116 H Respiratory Rate 21 Blood Pressure 120/73 Pulse Oximetry 06/25/18 19:45 06/25/18 19:58 06/25/18 20:00 Temperature Pulse Rate 116 H 116 H 125 H Respiratory Rate 21 26 H Blood Pressure 142/87 H 137/71 Pulse Oximetry 98 92 L 06/25/18 20:15 06/25/18 20:20 Temperature 99.1 F Pulse Rate 118 H 121 H Respiratory Rate 20 26 H Blood Pressure 138/105 H 138/105 H Pulse Oximetry 96 95 Intake & Output 06/25/18 06/25/18 06/26/18 06:59 18:59 06:59 Intake Total 950 / 950 1100 / 1100 50 / 50 Balance 950 / 950 1100 / 1100 50 / 50 Intake: IV 950 / 950 1100 / 1100 NS Inj 1,000 ML @ 84 mls/hr IV. 950 / 950 1000 / 1000 CONT .[id number] WOLF Rx#:[id number] Rocephin Inj 1,000 MG In NS Inj 100 / 100 100 ML @ 200 mls/hr IV.SIG Q24H WOLF Rx#:[id number] Anesthesia Amount 50 / 50 Other: Date of Last Bowel Movement 06/24/18 06/24/18 Narrative: General appearance: 73-year-old -[place] male, appears anxious in distress with sob, NG tube in. Cardiovascular: S1-S2 audible Respiratory: Decreased breath sounds bilaterally, no wheezing at this time. No cough. Patient is on nasal cannula. Abdomen: Firm, distended, normal bowel sounds. Extremities 1+ pitting edema bilateral lower extremities up to the knees. Neuro: Grossly normal cranial nerves. Strength grossly normal. Normal speech. No neurological deficits Results - Labs CBC & Chem 7: 06/24/18 15:11 06/24/18 15:11 Laboratory Results - last 24 hr 06/25/18 06/25/18 06/25/18 03:40 03:51 06:32 Puncture Site Left radial Right radial Patient Temperature 98.6 98.6 O2 Saturation 89 L* 94 ABG pH 7.27 L* 7.33 L ABG pCO2 84 H* 74 H* ABG pO2 71 92 ABG HCO3 37 H 38 H ABG O2 Content 16.6 16.7 ABG Base Excess 10.5 H 11.7 H ABG Methemoglobin 0.7 1.3 Raymon Test Present Present Hemoglobin 13.2 12.6 Carboxyhemoglobin 1.2 1.3 O2 Delivery Device Nasal cannula Bipap Liter Flow 4.00 Vent Setting Ipap 12/ epap 6 Inspired O2 40 Critical Value Yes Yes POC Glucose 155 H - Imaging Impressions Chest X-Ray 06/25/18 00:00 CONCLUSION: Suspected mild atelectasis or consolidation at the medial right base. Assessment and Plan - Assessment (1) Acute exacerbation of chronic obstructive pulmonary disease (COPD) Code(s): J44.1 - Chronic obstructive pulmonary disease with (acute) exacerbation Status: Acute (2) Sinusitis Code(s): J32.9 - Chronic sinusitis, unspecified Status: Acute - Plan This patient is a 73-year-old male with a diagnosis of COPD and uses 2 L of supplemental oxygen at home. The patient also has hypertension, dyslipidemia, and anxiety. He presented with complaints of shortness of breath over the past 2 weeks that is progressively been getting worse. Is also been having sinus congestion and feels that his oxygen is not working which makes him anxious. He also has been having a cough that does not seem to be getting better. Because of his symptoms he came into our emergency department for evaluation. 1. COPD exacerbation Acute on chronic Respiratory failure requiring BiPAP overnight. on Bipap at night as patient with hypercapnia . Will consult pulm The patient is currently on 3 L of supplemental oxygen. He is still complaining of shortness of breath Patient still has wheezing bilaterally Repeat chest x-ray does not show any infiltrates or interstitial edema. Continue antibiotics for COPD exacerbation. Continue DuoNeb treatments Taper steroids The patient's abdomen is distended, abdominal ultrasound was done which did not show any evidence of ascites. KUB was also done which shows no evidence of obstruction. Patient is having bowel movements. 2. Sinusitis Continue current antibiotics. Symptoms improving significantly over the past 2 days. He says he can now breathe through his nose. 3. Acute kidney injury likely prerenal After the initiation of IV fluids the patient's serum creatinine improved from 1.58 and is currently 1.1 as of yesterday. Follow-up a.m. labs. 4. Hypertension Patient continues to remain hypertensive. His amlodipine will be changed to 10 mg daily yesterday. Hydralazine will be started yesterday, dose increased. 5. Anxiety 6. Abdominal pain and distention CT A/P reviewed no significant findings, adrenal mass incidental finding Consult GI for eval Duloxetine started which is one of his home medications. SCDs for DVT prophylaxis. Discharge plan discharge when improves and cleared by consultants. Patient with abdominal pain and distention and some nausea consulted GI plans for EGD, patint has an NG tube at this time. Taper steroids as tolerated. (2) Sinusitis Qualifiers: Sinusitis location: frontal Chronicity: acute Recurrence: not specified as recurrent Qualified Code(s): J01.10 - Acute frontal sinusitis, unspecified
[2018-06-25] MEDS ORDERED: Metoprolol Inj 5 MG/5 ML Vial IV.PUSH ONE (22:33)
[2018-06-26] MEDS: MethylPREDNISolone Sod Succinate Inj 125 MG/2 ML Vial IV.PUSH SCH ×4 (00:11→23:38)
[2018-06-26 05:13] LABS: Hemoglobin 12.7 gm/dL (13.0-17.0); Lymph # (Auto) 0.2 th/mm3 (1.0-4.8); Lymph % (Auto) 1.8 % (9.0-44.0); Mean Corpuscular HGB Conc 31.7 % (32.0-36.0); Mean Corpuscular Hemoglobin 29.3 pg (27.0-34.0); Mean Corpuscular Volume 92.4 fL (80.0-100.0); Mean Platelet Volume 10.2 fL (7.0-11.0); Mono # (Auto) 0.5 th/mm3 (0.0-0.9); Mono % (Auto) 3.9 % (0.0-8.0); Neut % (Auto) 94.3 % (16.0-70.0); Platelet Count 147 th/mm3 (150-450); Red Blood Count 4.32 mil/mm3 (4.50-5.90); Red Cell Distribution Width 13.9 % (11.6-17.2); White Blood Count 12.7 th/mm3 (4.0-11.0)
[2018-06-26 05:40] LABS: Calcium 7.5 mg/dL (8.5-10.1); Carbon Dioxide 41.4 meq/L (21.0-32.0); Potassium 4.2 meq/L (3.5-5.1)
[2018-06-26] MEDS: Sod Chloride 0.9% Inj 1,000 ML IV.CONT SCH ×2 (06:30→21:12)
[2018-06-26 08:25] LABS: Lymphocytes 3 % (9-44); Metamyelocytes 1 % (0-1); Monocytes 1 % (0-8)
[2018-06-26 08:26] LABS: Basophilic Stippling Moderate; Platelet Estimate Normal (Normal); Platelet Morphology Normal (Normal)
--- NOTE | 2018-06-26 08:26 | P.PN ---
Subjective Interval history: This is a pleasant 73 y/o Male with COPD, Home Oxygen 2 L/min. Hypertension, Hyperlipidemia, Anxiety disorder who was admitted with, was on BiPAP yesterday, and NG tube. 06/26: Seen in his bedroom, discussed with nurse, I was called early due to patient respiratory insufficiency and non responsive, asked for Inventory Auditor management, patient was Intubated, I was present while Central line was placed by Doctor Jimy. Physical Exam Vital signs: Vital Signs 06/25/18 08:33 06/25/18 09:00 06/25/18 09:03 Temperature Pulse Rate 103 H 110 H 107 H Respiratory Rate 21 39 H 19 Blood Pressure 161/98 H 162/106 H Pulse Oximetry 99 94 L 93 L 06/25/18 09:08 06/25/18 09:33 06/25/18 10:00 Temperature Pulse Rate 110 H 110 H 108 H Respiratory Rate 15 19 13 Blood Pressure 167/105 H 179/84 H Pulse Oximetry 93 L 93 L 98 06/25/18 10:03 06/25/18 11:00 06/25/18 12:00 Temperature 98.7 F Pulse Rate 108 H 106 H 106 H Respiratory Rate 13 18 Blood Pressure 173/123 H 156/84 H Pulse Oximetry 98 98 06/25/18 13:00 06/25/18 14:00 06/25/18 15:00 Temperature Pulse Rate 116 H 120 H 118 H Respiratory Rate Blood Pressure Pulse Oximetry 06/25/18 15:12 06/25/18 16:00 06/25/18 17:00 Temperature 98 F Pulse Rate 88 120 H Respiratory Rate 18 Blood Pressure 154/82 H Pulse Oximetry 98 98 06/25/18 18:00 06/25/18 19:40 06/25/18 19:45 Temperature 98.9 F Pulse Rate 120 H 116 H 116 H Respiratory Rate 21 21 Blood Pressure 120/73 142/87 H Pulse Oximetry 98 06/25/18 19:58 06/25/18 20:00 06/25/18 20:15 Temperature Pulse Rate 116 H 125 H 118 H Respiratory Rate 26 H 20 Blood Pressure 137/71 138/105 H Pulse Oximetry 96 96 06/25/18 20:20 06/25/18 20:42 06/25/18 20:45 Temperature 99.1 F Pulse Rate 121 H 118 H Respiratory Rate 26 H 23 Blood Pressure 138/105 H 146/75 H Pulse Oximetry 95 100 97 06/25/18 21:00 06/25/18 21:58 06/25/18 22:00 Temperature 98.6 F Pulse Rate 119 H 119 H Respiratory Rate 34 H 34 H Blood Pressure 144/76 H 159/83 H Pulse Oximetry 94 L 96 95 06/25/18 23:00 06/26/18 00:00 06/26/18 00:59 Temperature 99.2 F Pulse Rate 103 H 107 H Respiratory Rate 28 H 27 H Blood Pressure 152/78 H 137/90 Pulse Oximetry 95 97 98 06/26/18 01:00 06/26/18 01:01 06/26/18 02:00 Temperature Pulse Rate 107 H 107 H 108 H Respiratory Rate 25 H 33 H 26 H Blood Pressure 147/74 H 141/105 H Pulse Oximetry 96 94 L 94 L 06/26/18 02:03 06/26/18 03:00 06/26/18 04:00 Temperature 98.8 F Pulse Rate 110 H 108 H 106 H Respiratory Rate 34 H 29 H 25 H Blood Pressure 138/73 148/84 H 149/93 H Pulse Oximetry 96 95 94 L 06/26/18 04:19 06/26/18 05:00 Temperature Pulse Rate 109 H Respiratory Rate 25 H Blood Pressure 139/82 Pulse Oximetry 95 96 Intake & Output 06/25/18 06/26/18 06/26/18 18:59 06:59 18:59 Intake Total 1100 / 1100 1050 / 1050 Output Total 625 / 625 Balance 1100 / 1100 425 / 425 Weight 89 kg Intake: IV 1100 / 1100 1000 / 1000 NS Inj 1,000 ML @ 84 mls/hr IV. 1000 / 1000 1000 / 1000 CONT .[id number] WOLF Rx#:[id number] Rocephin Inj 1,000 MG In NS Inj 100 / 100 100 ML @ 200 mls/hr IV.SIG Q24H WOLF Rx#:[id number] Oral 0 / 0 Anesthesia Amount 50 / 50 Output: Urine 625 / 625 Other: Date of Last Bowel Movement 06/24/18 06/24/18 Narrative: General appearance: Respiratory distress. Cardiovascular: S1-S2 audible Respiratory: Decreased breath sounds bilaterally, no wheezing at this time. Abdomen: Firm, distended, normal bowel sounds. Extremities 1+ pitting edema bilateral lower extremities up to the knees. Neuro: Lethargic. Results - Labs CBC & Chem 7: 06/26/18 04:04 06/26/18 04:04 Laboratory Results - last 24 hr 06/26/18 06/26/18 04:04 04:04 WBC 12.7 H RBC 4.32 L Hgb 12.7 L Hct 40.0 MCV 92.4 MCH 29.3 MCHC 31.7 L RDW 13.9 Plt Count 147 L MPV 10.2 Prelim Diff (Auto) Slide review pending Neut % (Auto) 94.3 H Lymph % (Auto) 1.8 L [place] % (Auto) 3.9 Eos % (Auto) 0.0 Baso % (Auto) 0.0 Neut # (Auto) 12.0 H Lymph # (Auto) 0.2 L [place] # (Auto) 0.5 Eos # (Auto) 0.0 Baso # (Auto) 0.0 Differential Comment . Sodium 148 H Potassium 4.2 Chloride 102 Carbon Dioxide 41.4 H Anion Gap 5 BUN 35 H Creatinine 1.02 Estimated GFR 87 L Random Glucose 170 H Calcium 7.5 L D - Imaging Abdomen Ultrasound 06/21/18 00:00 CONCLUSION: 1. No ascites is identified within the abdomen. Abdomen X-Ray 06/21/18 00:00 CONCLUSION: No acute findings. Mild constipation. Abdomen/Pelvis CT 06/24/18 00:00 CONCLUSION: 1. Benign appearing right adrenal mass. 2. No acute CT findings in the abdomen or pelvis. Chest X-Ray 06/25/18 00:00 CONCLUSION: Suspected mild atelectasis or consolidation at the medial right base. Assessment and Plan - Assessment (1) Acute exacerbation of chronic obstructive pulmonary disease (COPD) Code(s): J44.1 - Chronic obstructive pulmonary disease with (acute) exacerbation Status: Acute (2) Sinusitis Code(s): J32.9 - Chronic sinusitis, unspecified Status: Acute - Plan This patient is a 73-year-old male with a diagnosis of COPD and uses 2 L of supplemental oxygen at home. The patient also has hypertension, dyslipidemia, and anxiety. He presented with complaints of shortness of breath over the past 2 weeks that is progressively been getting worse. Is also been having sinus congestion and feels that his oxygen is not working which makes him anxious. He also has been having a cough that does not seem to be getting better. Because of his symptoms he came into our emergency department for evaluation. 1. COPD exacerbation Acute on chronic Respiratory failure requiring BiPAP overnight. Repeat chest x-ray does not show any infiltrates or interstitial edema. Continue antibiotics for COPD exacerbation. Bronchodilator, Mucolytic, incentive spirometry, Steroids. The patient's abdomen is distended, abdominal ultrasound was done which did not show any evidence of ascites. KUB was also done which shows no evidence of obstruction. Patient is having bowel movements. at this time having ABGs with changes. PH 7.21 and CO2 110. patient intubated by Inventory Auditor appreciated. 2. Sinusitis Continue current antibiotics. Symptoms improving significantly over the past 2 days. He says he can now breathe through his nose. 3. Acute kidney injury likely prerenal Improved. 4. Hypertension controlled today. 5. Anxiety 6. Abdominal pain and distention CT A/P reviewed no significant findings, adrenal mass incidental finding Consult GI for eval Duloxetine started which is one of his home medications. SCDs for DVT prophylaxis. Code Status: Full code. Discussed Condition With: Nurse and it communications specialist doctor Jimy Nicole input, recommendations highly appreciated. Discharge Planning: at this time under the service of channel marketing specialist. (2) Sinusitis Qualifiers: Sinusitis location: frontal Chronicity: acute Recurrence: not specified as recurrent Qualified Code(s): J01.10 - Acute frontal sinusitis, unspecified
[2018-06-26 08:41] LABS: ABG Base Excess 13.6 mmol/L (-2-2); ABG PCO2 110 mmHg (38-42); ABG PO2 88 mmHg (61-120)
[2018-06-26] MEDS ORDERED: Etomidate Inj 40 MG/20 ML Vial IV.PUSH ONE (09:01)
[2018-06-26] MEDS ORDERED: Midazolam Inj 5 MG/ML 1 ML Vial ONE (09:02)
[2018-06-26] MEDS ORDERED: Propofol Inj 500 MG/50 ML Vial ONE (09:16)
--- NOTE | 2018-06-26 09:21 | P.CONCC ---
History of Present Illness Service: Critical care Consult date: 06/26/18 Requesting Physician: Corey Ahn Reason for Consult: Acute hypercapneic resp failure Primary Care Provider: [facility] Chief Complaint: Hypercapnea, AMS History of Present Illness: Mr. Curry is a 73-year-old -Vincentian male with past medical history significant for COPD on 3 L nasal cannula, hypertension, hyperlipidemia and anxiety who was admitted to the hospitalist service on 06/19/2018 for worsening shortness of breath due to COPD exacerbation. He was treated with IV Solu- Medrol, IV antibiotics, breathing treatments gradually improved. Patient was also complaining about dyspepsia and underwent EGD by GI yesterday. Per report the EGD was normal but patient developed worsening shortness of breath and COPD exacerbation postprocedure, possibly from aspiration after sedated. Two ABGs done yesterday showed hypercapnic respiratory failure second 1 was on BiPAP and this was improved with pH 7.3 with PCO2 of 74. Patient remained on BiPAP overnight however was noticed to be lethargic today a.m., stat ABG showed pH of 7.21 PCO2 110 PO2 88 while on BiPAP. Patient was lethargic intermittently dozing off due to CO2 narcosis. Critical care medicine was consulted and I immediately evaluated the patient. Patient had obviously failed BiPAP I proceeded with endotracheal intubation placed on mechanical ventilation. Postintubation I have ordered single dose of Solu-Medrol 125 mg x1 continue Solu -Medrol 60 every 8, discontinue ceftriaxone and start cefepime 2 g IV every 8 hours continue azithromycin. Add budesonide inhaled, placed on scheduled DuoNeb every 4 hours and as needed. Review of Systems unobtainable due to mental status PMFSH - History History Provided By: Patient - Medical / Surgical Hx Neg / Unobtainable Medical Problems Denied: Unable to Obtain - Medical History Medical History: Medical History (Last Reviewed 06/26/18 @ 09:24 by Corey Ahn MD) Anxiety Asthma COPD (chronic obstructive pulmonary disease) Chronic back pain Hypertension - Surgical History Surgical History: Surgical History (Last Reviewed 06/20/18 @ 02:15 by Daly Aquino MD) No history of previous surgery - Family History Family History: Family History (Last Updated 06/20/18 @ 02:15 by Daly Aquino MD) Other Diabetes mellitus - Tobacco History Second Hand Smoke Exposure: No Tobacco Use In Past 30 Days: No Smoking Status: Former smoker Tobacco Type: Cigarettes - Alcohol History How Often Do You Have a Drink Containing Alcohol: Never - Substance Use History Substance History: No History of Abuse - Travel History Recent Travel in the [place] Within the Last 8 Weeks: No Recent Travel Out of the Country Within the Last 8 Weeks: No - Immunization History Tetanus Immunization: Unsure Medications and Allergies Active Medications: Active Medications Acetaminophen (Tylenol) 650 mg PO Q4H PRN PRN Reason: Temp > 100.4 Al Hydroxide/Mg Hydroxide (Milk Of Magnkashif Liq) 30 ml PO Q12H PRN PRN Reason: Mild Constipation Albuterol (Duoneb Neb (Prn)) 1 ampul NEB Q2HR NEB PRN PRN Reason: SHORTNESS OF BREATH Albuterol (Duoneb Neb (Prn)) 1 ampul NEB Q4HR NEB [facility] Amlodipine Besylate (Norvasc) 10 mg PO DAILY [facility] Last Admin: 06/25/18 08:36 Dose: 10 mg Bisacodyl (Dulcolax Supp) 10 mg RECTAL DAILY PRN PRN Reason: SEVERE CONSITIPATION Bisacodyl (Dulcolax Supp) 10 mg RECTAL DAILY [facility] Last Admin: 06/25/18 08:38 Dose: Not Given Budesonide (Pulmocort Respule Neb) 0.5 mg NEB Q12HR NEB [facility] Chlorhexidine Gluconate (Peridex 0.12% Oral Kit) 15 ml OROPHARYNG BID@0800, 2000 [facility] Diltiazem HCl (Cardizem) 30 mg PO QID PRN PRN Reason: HR> 110 or if SBP> 160 Duloxetine HCl (Cymbalta) 20 mg PO DAILY [facility] Last Admin: 06/25/18 08:36 Dose: 20 mg Enoxaparin Sodium (Lovenox Inj) 40 mg SQ Q24H [facility] Hydralazine HCl (Apresoline) 50 mg PO TID [facility] Last Admin: 06/25/18 17:22 Dose: 50 mg Hydrochlorothiazide (Hydrodiuril) 25 mg PO DAILY [facility] Last Admin: 06/25/18 08:44 Dose: 25 mg Sodium Chloride (Ns Inj) 1,000 mls @ 84 mls/hr IV.CONT .[id number] [facility] Last Admin: 06/26/18 06:30 Dose: 84 mls/hr Azithromycin 250 mg/ Sodium (Chloride) 250 mls @ 250 mls/hr IV.SIG Q24H [facility] Last Admin: 06/25/18 17:59 Dose: 250 mls/hr Ceftriaxone Sodium 1,000 mg/ (Sodium Chloride) 100 mls @ 200 mls/hr IV.SIG Q24H [facility] Last Infusion: 06/25/18 18:02 Dose: Infused Calcium Gluconate 1 gm/ (Dextrose) 110 mls @ 110 mls/hr IV.SIG ONCE ONE Stop: 06/26/18 10:59 Lactulose (Lactulose Liq) 30 ml PO DAILY PRN PRN Reason: SEVERE CONSITIPATION Methylprednisolone Sodium Succinate (Solumedrol Inj) 60 mg IV.PUSH Q8H [facility] Last Admin: 06/26/18 00:11 Dose: 60 mg Methylprednisolone Sodium Succinate (Solumedrol Inj) 125 mg IV.PUSH ONCE ONE Stop: 06/26/18 09:18 Miscellaneous Information ([facility] Nursing Information) 1 each OTHER UNSCH PRN PRN Reason: SEE LABEL COMMENTS Stop: 06/26/18 20:01 Miscellaneous Medication () 1 each OROPHARYNG 0000,0400,1200,1600 [facility] Ondansetron HCl (Zofran Inj) 4 mg IV.PUSH Q6H PRN PRN Reason: NAUSEA OR VOMITING Pantoprazole Sodium (Protonix) 20 mg PO DAILY [facility] Last Admin: 06/25/18 08:36 Dose: 20 mg Senna/Docusate Sodium (Maria Guadalupe-Colace) 1 tab PO BID [facility] Last Admin: 06/25/18 21:12 Dose: Not Given Sennosides (Senokot) 17.2 mg PO Q12H PRN PRN Reason: Moderate Constipation Simethicone (Mylicon Chew) [address] [facility] Last Admin: 06/25/18 21:11 Dose: Not Given Sodium Chloride (Ns Flush) 2 ml IV.FLUSH BID [facility] Last Admin: 06/25/18 21:12 Dose: 2 ml Sodium Chloride (Ns Flush) 2 ml IV.FLUSH PRN PRN PRN Reason: FLUSH AFTER USING IV ACCESS Allergies Allergy/AdvReac Type Severity Reaction Status Date / Time shellfish derived Allergy Severe Anaphylaxis Verified 10/10/17 13:48 Home Medications Medication Instructions Recorded Confirmed Type cholecalciferol (vitamin D3) 1,000 unit PO DAILY 06/19/18 06/19/18 History [Vitamin D3] hydrochlorothiazide 25 mg PO DAILY 06/19/18 06/19/18 History meloxicam 15 mg PO DAILY 06/19/18 06/19/18 History omeprazole 20 mg PO DAILY 06/19/18 06/19/18 History potassium chloride 10 meq PO DAILY 06/19/18 06/19/18 History Physical Exam Vital signs: Vital Signs 06/25/18 09:33 06/25/18 10:00 06/25/18 10:03 Temperature Pulse Rate 110 H 108 H 108 H Respiratory Rate 19 13 13 Blood Pressure 179/84 H 173/123 H Pulse Oximetry 93 L 98 98 06/25/18 11:00 06/25/18 12:00 06/25/18 13:00 Temperature 98.7 F Pulse Rate 106 H 106 H 116 H Respiratory Rate 18 Blood Pressure 156/84 H Pulse Oximetry 98 06/25/18 14:00 06/25/18 15:00 06/25/18 15:12 Temperature Pulse Rate 120 H 118 H Respiratory Rate Blood Pressure Pulse Oximetry 98 06/25/18 16:00 06/25/18 17:00 06/25/18 18:00 Temperature 98 F Pulse Rate 88 120 H 120 H Respiratory Rate 18 Blood Pressure 154/82 H Pulse Oximetry 98 06/25/18 19:40 06/25/18 19:45 06/25/18 19:58 Temperature 98.9 F Pulse Rate 116 H 116 H 116 H Respiratory Rate 21 21 Blood Pressure 120/73 142/87 H Pulse Oximetry 98 06/25/18 20:00 06/25/18 20:15 06/25/18 20:20 Temperature 99.1 F Pulse Rate 125 H 118 H 121 H Respiratory Rate 26 H 20 26 H Blood Pressure 137/71 138/105 H 138/105 H Pulse Oximetry 96 96 95 06/25/18 20:42 06/25/18 20:45 06/25/18 21:00 Temperature 98.6 F Pulse Rate 118 H 119 H Respiratory Rate 23 34 H Blood Pressure 146/75 H 144/76 H Pulse Oximetry 100 97 94 L 06/25/18 21:58 06/25/18 22:00 06/25/18 23:00 Temperature Pulse Rate 119 H 103 H Respiratory Rate 34 H 28 H Blood Pressure 159/83 H 152/78 H Pulse Oximetry 96 95 95 06/26/18 00:00 06/26/18 00:59 06/26/18 01:00 Temperature 99.2 F Pulse Rate 107 H 107 H Respiratory Rate 27 H 25 H Blood Pressure 137/90 Pulse Oximetry 97 98 96 06/26/18 01:01 06/26/18 02:00 06/26/18 02:03 Temperature Pulse Rate 107 H 108 H 110 H Respiratory Rate 33 H 26 H 34 H Blood Pressure 147/74 H 141/105 H 138/73 Pulse Oximetry 94 L 94 L 96 06/26/18 03:00 06/26/18 04:00 06/26/18 04:19 Temperature 98.8 F Pulse Rate 108 H 106 H Respiratory Rate 29 H 25 H Blood Pressure 148/84 H 149/93 H Pulse Oximetry 95 94 L 95 06/26/18 05:00 Temperature Pulse Rate 109 H Respiratory Rate 25 H Blood Pressure 139/82 Pulse Oximetry 96 Intake & Output 06/25/18 06/26/18 06/26/18 18:59 06:59 18:59 Intake Total 1100 / 1100 1050 / 1050 Output Total 625 / 625 Balance 1100 / 1100 425 / 425 Weight 89 kg Intake: IV 1100 / 1100 1000 / 1000 NS Inj 1,000 ML @ 84 mls/hr IV. 1000 / 1000 1000 / 1000 CONT .[id number] [facility] Rx#:[id number] Rocephin Inj 1,000 MG In NS Inj 100 / 100 100 ML @ 200 mls/hr IV.SIG Q24H [facility] Rx#:[id number] Oral 0 / 0 Anesthesia Amount 50 / 50 Output: Urine 625 / 625 Other: Date of Last Bowel Movement 06/24/18 06/24/18 Narrative: General appearance: 73-year-old -Vincentian male, appears distress with sob , somnolent Cardiovascular: S1-S2 normal, no murmurs Respiratory: On BiPAP 12/5 in moderate distress, shallow breathing, markedly diminished breath sounds bilaterally, no wheezing at this time. Abdomen: Firm, distended, normal bowel sounds. Extremities 1+ pitting edema bilateral lower extremities. Neuro: Patient is on BiPAP, wakes up to stimulation, but falls back to sleep due to CO2 narcosis Septic Shock Reassessment Septic shock perfusion: reassessment completed Assessment and Plan - Assessment and Plan Plan: ASSESSMENT: Acute hypercapnic respiratory failure Acute COPD exacerbation Altered mental status due to CO2 narcosis Leukocytosis Acute kidney insufficiency Hyperglycemia PLAN: NEURO: -Propofol for sedation and ventilator synchrony -Add Versed if needed RESP: -PRVC/AC -Ventilator bundle -DuoNeb every 4 hours scheduled and as needed -IV steroids 125 mg x1 and continue 60 mg every 8 hours -Inhaled budesonide -DC ceftriaxone add cefepime continue azithromycin CV: -Normal saline IV fluids, 50 mL/h GI: -N.p.o., PPI -Start tube feeds in 24 hours : -Monitor renal function closely. No indication for More[place] at this time ID: -Antibiotics with cefepime and azithromycin -Sputum cultures HEME: -Monitor CBC, coags ENDO: -Electrolyte replacement per protocol -Sliding scale insulin PROPH: -Bilateral lower extremity SCDs. Lovenox/PPI LINES: -Utilize peripheral IVs, central line if needed CC time 42 min Code Status: Full
[2018-06-26] MEDS ORDERED: Calcium Gluconate Inj 1 GM in Dextrose 5% in Water Inj 100 ML IV.SIG ONE ×2 (10:00)
--- NOTE | 2018-06-26 10:01 | XR ---
EXAM DATE: 06/26/2018 12:00 AM EDT AGE/SEX: 73 years / Male INDICATIONS: Respiratory distress post ET tube placement. CLINICAL DATA: This is the patient's subsequent encounter. Patient reports that signs and symptoms h ave been present for 4 - 6 days and indicates a pain score of Nonresponsive. MEDICAL/SURGICAL HISTORY: None. None. COMPARISON: [facility] [place], CHEST 1V SINGLE AP, 06/25/2018. . FINDINGS: A single AP view of the chest demonstrates the lungs to be symmetrically aerated without evidence of mass, infiltrate or effusion. The cardiomediastinal contours are unremarkable. Osseous structures a re intact. Endotracheal tube is identified with the tip appropriately positioned above the christy. N asogastric tube crosses the GE junction and is curled in the stomach. Osseous structures are intact. CONCLUSION: 1. Endotracheal tube is appropriately positioned above the christy. 2. Nasogastric tube traverses the GE junction and is curled in the gastric lumen. 3. Lungs are clear. Electronically signed by: Alex Blevins MD 06/26/2018 9:59 AM EDT
--- NOTE | 2018-06-26 10:10 | XR ---
EXAM DATE: 06/26/2018 9:21 AM EDT AGE/SEX: 73 years / Male INDICATIONS: Evaluate for ileus. CLINICAL DATA: This is the patient's subsequent encounter. Patient reports that signs and symptoms h ave been present for 4 - 6 days and indicates a pain score of Nonresponsive. MEDICAL/SURGICAL HISTORY: None. None. COMPARISON: [facility] [place], CT ABDOMEN & PELVIS W/O CONTRAST, 06/24/2018. . FINDINGS: Bowel gas pattern is nonobstructed. Small amount of air identified in the nondilated colon. No pneum operitoneum. Nasogastric tube is curled in the gastric lumen with a portion identified over the heart shadow. This may be projectional as there is no evidence of a large hiatal hernia on the most recent CT of the abdomen. The gastric body does project somewhat cephalized, however. CONCLUSION: 1. Nonobstructive bowel gas pattern without pneumoperitoneum. 2. Nasogastric tube is curled in the expected location of the gastric body. I believe the portions o f the tube identified over the heart shadow is probably projectional as there is no evidence of a sig nificant hiatal hernia on the most recent CT of the abdomen. Electronically signed by: Alex Blevins MD 06/26/2018 10:09 AM EDT
[2018-06-26] MEDS: Senna/Docusate Sodium 8.6/50 MG Tablet PO SCH ×2 (10:12→20:59)
[2018-06-26] MEDS: hydrALAZINE 50 MG Tablet PO SCH ×3 (10:12→17:54)
[2018-06-26] MEDS: amLODIPine 10 MG Tablet PO SCH (10:12)
[2018-06-26] MEDS: hydroCHLOROthiazide 25 MG Tablet PO SCH (10:12)
[2018-06-26] MEDS: Simethicone 80 MG Chew Tablet PO SCH ×4 (10:12→20:59)
[2018-06-26] MEDS: Bisacodyl 10 MG Supp RECTAL SCH (10:13)
[2018-06-26] MEDS: Pantoprazole Sodium 20 MG DR Tablet PO SCH (10:16)
--- NOTE | 2018-06-26 10:23 | P.PCN ---
Date of procedure: 06/26/18 Pre-op diagnosis: Acute hypercapnic respiratory failure Post-op diagnosis: same Procedure: PROCEDURE: Endotracheal intubation The patient was placed on a rn cardiac including continuous pulse oximetry. Rapid Sequence Intubation was conducted using etomidate 20 mg IV, Versed 5 mg IV, rocuronium 50 mg IV. Cricoid pressure was maintained from time induction agent was given to time of cuff balloon inflation. Using a direct laryngoscopy with MAC 4 blade and a size 8.0 endotracheal tube with stylet, the patient was intubated on the first attempt. The stylet was removed and cuff balloon was inflated. Appropriate endotracheal tube position was confirmed by direct visualization of vocal cord passage, fogging of the tube, CO2 colometric indicator and symmetric breath sounds. The tube was secured at 24 cm at the lips. Post intubation chest x-ray is pending at this time. Anesthesia: GETA Surgeon: Corey Ahn Estimated blood loss (mL): 0 Pathology: other (Sputum culture) Condition: critical Disposition: ICU
[2018-06-26] MEDS ORDERED: MethylPREDNISolone Sod Succinate Inj 125 MG/2 ML Vial IV.PUSH ONE (10:30)
[2018-06-26] MEDS: Propofol 1000 mg/100 ml Inj 1,000 MG/100 ML BOTTLE IV.CONT PRN ×4 (11:19→21:11)
[2018-06-26] MEDS: Enoxaparin Inj 40 MG/0.4 ML Syringe SQ SCH (11:20)
--- NOTE | 2018-06-26 11:22 | MB ---
cc: Neelam Dean MD DATE: 06/26/2018 REASON FOR CONSULTATION: Respiratory failure and COPD. HISTORY OF PRESENT ILLNESS: The patient is a 73-year-old male with a past medical history of COPD on 3 liters home oxygen, hypertension, hyperlipidemia, anxiety disorder, who was admitted initially under hospitalist service for COPD exacerbation. During his hospital course, the patient was evaluated by GI service and underwent upper endoscopy by on 06/25, which showed a normal EGD. Chest x-ray on admission showed no evidence of any acute cardiopulmonary disease. Post procedure, patient was placed on BiPAP and 2 different ABGs on the BiPAP showed acute hypercapnic respiratory acidosis. His last ABG from 04/21, showed a pH of 7.21, CO2 of 110, bicarbonate 42, and saturation of 93% on BiPAP setting 12/6 with 40% FiO2. The patient was subsequently intubated and placed on full mechanical ventilation. When seen, he is sedated with Diprivan. Most of the history was obtained from reviewing medical records. PAST MEDICAL HISTORY: Significant for COPD on 3 liters home oxygen, hypertension, hyperlipidemia, anxiety disorder, history of bronchial asthma, chronic back pain. PAST SURGICAL HISTORY: No history of previous surgeries. ALLERGIES: SHELLFISH. FAMILY HISTORY: Diabetes mellitus runs in the family. SOCIAL HISTORY: Ex-smoker. Occasional drinker. REVIEW OF SYSTEMS: As per HPI. Rest of review of systems unobtainable as the patient is intubated. ACTIVE MEDICATIONS: DuoNeb, azithromycin, Cefepime, Cymbalta, hydrochlorothiazide, Solu-Medrol, Diprivan. PHYSICAL EXAMINATION: GENERAL: A 73-year-old male with failed BiPAP now intubated and on full mechanical ventilation. VITAL SIGNS: Afebrile with a temperature of 98.8, pulse of 109, respiratory rate is 25, blood pressure 139/82. HEENT: Atraumatic, normocephalic. Pupils are equal, round, reactive to light and sedation. Extraocular muscles intact. Conjunctivae pink. Anicteric sclerae. Oral mucosa within normal. NECK: Supple. No JVD, adenopathy, or thyromegaly. Trachea in the midline. CARDIOVASCULAR: Regular rate and rhythm. Normal S1, S2. No murmurs, rubs, or gallops. PULMONARY: Bilateral equal air entry. No rales or wheezing. ABDOMEN: Soft, distended, positive bowel sounds. EXTREMITIES: No cyanosis, clubbing, or edema. NEUROLOGIC: Intubated and sedated with Diprivan. LABORATORY DATA: ABG from this morning, pH of 7.21, CO2 of 110, PaO2 of 88, bicarbonate 42, saturation of 93%. WBC 12.7, hemoglobin 12.7, hematocrit 40, platelet count 147. Sodium 148, potassium 4.2, chloride 102, CO2 of 41, BUN 35, creatinine 1.02, glucose of 170. RADIOGRAPHIC STUDIES: Chest x-ray post-intubation showed ET tube above the christy, clear lungs. A KUB from this morning showed nonobstructive bowel gas pattern without pneumoperitoneum. IMPRESSION: 1. Acute hypercapnic and hypoxemic respiratory failure requiring intubation. 2. Chronic obstructive pulmonary disease exacerbation, on 2-3 liters home oxygen. 3. Hypertension. 4. Hyperlipidemia. 5. Leukocytosis, trending down. 6. Hypernatremia. RECOMMENDATIONS: 1. Continue with Diprivan infusion for sedation and daily sedation vacation when clinically indicated. 2. Continue with vent support and maintain sats above 92%. 3. Bronchodilators in the form of DuoNeb q.4 plus q.2 p.r.n. 4. Agree with steroids. He is currently on Solu-Medrol 60 mg IV q.8. 5. Check ABG post-intubation. Chest x-ray showed ET tube above the christy. No obvious infiltrates or effusions. 6. Continue with empiric antibiotics. The patient was placed on cefepime. Monitor for signs of infection, which include fever and WBC. Check a sputum culture with Gram stain. 7. We will give Diamox 250 mg IV x 1. 8. GI and DVT prophylaxis. 9. Further recommendations will be based on hospital course. Thank you for this consultation and allowing me to participate in this patient's care. MD SUSSY Ribeiro/cole , 10:32 AM , 10:44 AM
[2018-06-26 11:59] LABS: ABG Base Excess 12.2 mmol/L (-2-2); ABG PCO2 59 mmHg (38-42); ABG PO2 142 mmHG (61-120)
[2018-06-26] MEDS ORDERED: Midazolam Inj 5 MG/ML 1 ML Vial IV.PUSH ONE (13:30)
[2018-06-26] MEDS: Oral Hygiene Kit OROPHARYNG SCH ×3 (14:10→23:37)
--- NOTE | 2018-06-26 16:07 | XR ---
EXAM DATE: 06/26/2018 4:02 PM EDT AGE/SEX: 73 years / Male INDICATIONS: Central line placement. CLINICAL DATA: This is the patient's subsequent encounter. Patient reports that signs and symptoms h ave been present for 1 day and indicates a pain score of Nonresponsive. MEDICAL/SURGICAL HISTORY: Non-responsive. Non-responsive. COMPARISON: [facility] [place], CHEST 1V SINGLE AP, 06/26/2018. . FINDINGS: A single AP view of the chest demonstrates the lungs to be symmetrically aerated without evidence of mass, infiltrate or effusion. Endotracheal and nasogastric tubes are again identified and appear to b e appropriately positioned. Interval placement of a right IJ central venous catheter with the tip pro jecting over the central venous system. No pneumothorax. CONCLUSION: 1. Lungs remain clear. 2. Interval placement of a right IJ central venous catheter with the tip projecting over the central venous system. No pneumothorax. 3. Endotracheal and nasogastric tubes remain appropriately positioned. Electronically signed by: Alex Blevins MD 06/26/2018 4:06 PM EDT
--- NOTE | 2018-06-26 16:28 | P.PCN ---
Date of procedure: 06/26/18 Pre-op diagnosis: Respiratory failure, need for central access Post-op diagnosis: same Procedure: US guided right IJ central line Central line checklist completed, timeout completed. I wore a surgical cap, mask with protective eyewear, full gown and sterile gloves throughout the procedure. Right IJ region was prepped using chlorhexidine scrub and draped in sterile fashion. The right IJ vein was identified using the ultrasound. Anesthesia was achieved over the vein using 1% lidocaine. The introducer needle was inserted into the right IJ under direct ultrasound visualization. Venous blood was withdrawn. The syringe was removed and a guidewire was advanced into the introducer needle. A small incision was made at the skin surface with a scalpel and the introducer needle was exchanged for a dilator over the guidewire. After appropriate dilation was obtained, the dilator was exchanged over the wire for a triple lumen, 7F, antibiotic coated central venous catheter. The wire was removed and the catheter was sutured in place at 18cm. Due to body habitus with short neck and multiple skin folds and diaphoresis it was impossible to place a StatLock and for this reason a central line was sutured in. A sterile central line dressing was placed over the catheter at the insertion site. The patient tolerated the procedure without any hemodynamic compromise. At time of procedure completion, all ports aspirated and flushed properly. Post-procedure chest x-ray is pending at this time. Anesthesia: local Surgeon: Corey Ahn Estimated blood loss (mL): 3 Pathology: none sent Condition: critical Disposition: ICU
[2018-06-26] MEDS: Midazolam 50 MG/50 ML Inj 50 MG/50 ML BAG IV.CONT PRN ×2 (16:36→21:11)
[2018-06-26] MEDS: Azithromycin Inj 250 MG in Sodium Chlor 0.9% Inj 250 ML IV.SIG SCH (16:44)
[2018-06-26] MEDS: Chlorhexidine 0.12% Oral Kit 15 ML UDC OROPHARYNG SCH (19:51)
[2018-06-27] MEDS: Propofol 1000 mg/100 ml Inj 1,000 MG/100 ML BOTTLE IV.CONT PRN ×6 (01:12→21:47)
[2018-06-27] MEDS: Oral Hygiene Kit OROPHARYNG SCH ×4 (03:13→23:50)
[2018-06-27] MEDS: Sod Chloride 0.9% Inj 1,000 ML IV.CONT SCH (05:23)
[2018-06-27] MEDS: Chlorhexidine 0.12% Oral Kit 15 ML UDC OROPHARYNG SCH ×2 (08:30→20:00)
[2018-06-27] MEDS: Bisacodyl 10 MG Supp RECTAL SCH (08:30)
[2018-06-27] MEDS: MethylPREDNISolone Sod Succinate Inj 125 MG/2 ML Vial IV.PUSH SCH ×3 (09:14→23:45)
[2018-06-27] MEDS: hydrALAZINE 50 MG Tablet PO SCH ×3 (09:15→17:14)
[2018-06-27] MEDS: Pantoprazole Sodium 20 MG DR Tablet PO SCH (09:15)
[2018-06-27] MEDS: Senna/Docusate Sodium 8.6/50 MG Tablet PO SCH ×2 (09:15→19:59)
[2018-06-27] MEDS: Simethicone 80 MG Chew Tablet PO SCH ×4 (09:15→19:59)
[2018-06-27] MEDS: hydroCHLOROthiazide 25 MG Tablet PO SCH (09:16)
[2018-06-27] MEDS: amLODIPine 10 MG Tablet PO SCH (09:17)
--- NOTE | 2018-06-27 10:42 | P.PNPL ---
Subjective Interval history: No events ovenright Sedated with Diprivan and intubated. CPAP was attempted this morning however patient became tachycardic. Afebrile. Physical Exam Vital signs: Vital Signs 06/26/18 11:38 06/26/18 12:00 06/26/18 14:00 Temperature 98 F Pulse Rate 97 H 106 H Respiratory Rate 16 13 Blood Pressure 130/66 Pulse Oximetry 100 100 06/26/18 16:00 06/26/18 16:01 06/26/18 16:15 Temperature 99.9 F H Pulse Rate 109 H 112 H Respiratory Rate 16 16 16 Blood Pressure 146/78 H 144/74 H Pulse Oximetry 99 99 99 06/26/18 16:30 06/26/18 16:45 06/26/18 17:00 Temperature Pulse Rate 111 H 114 H 113 H Respiratory Rate 16 17 24 Blood Pressure 145/83 H 147/70 H 130/70 Pulse Oximetry 99 98 98 06/26/18 17:15 06/26/18 17:30 06/26/18 17:45 Temperature Pulse Rate 112 H 110 H 111 H Respiratory Rate 16 16 16 Blood Pressure 138/74 140/77 130/70 Pulse Oximetry 98 98 99 06/26/18 18:00 06/26/18 18:15 06/26/18 18:30 Temperature Pulse Rate 113 H 106 H 110 H Respiratory Rate 19 16 16 Blood Pressure 138/69 134/76 144/69 H Pulse Oximetry 97 99 98 06/26/18 18:45 06/26/18 19:00 06/26/18 19:15 Temperature Pulse Rate 104 H 108 H 104 H Respiratory Rate 16 16 16 Blood Pressure 139/73 142/76 H 141/82 H Pulse Oximetry 98 98 98 06/26/18 19:30 06/26/18 19:45 06/26/18 20:00 Temperature Pulse Rate 107 H 109 H 106 H Respiratory Rate 16 19 18 Blood Pressure 144/79 H 146/78 H 152/76 H Pulse Oximetry 98 98 98 06/26/18 20:10 06/26/18 20:15 06/26/18 20:30 Temperature 97.6 F Pulse Rate 110 H 109 H 109 H Respiratory Rate 16 16 16 Blood Pressure 150/71 H 130/80 Pulse Oximetry 99 99 98 06/26/18 20:45 06/26/18 21:00 06/26/18 21:15 Temperature Pulse Rate 113 H 111 H 112 H Respiratory Rate 16 16 16 Blood Pressure 143/77 H 144/79 H 156/78 H Pulse Oximetry 98 98 98 06/26/18 21:30 06/26/18 21:45 06/26/18 22:00 Temperature Pulse Rate 114 H 115 H 114 H Respiratory Rate 16 16 16 Blood Pressure 148/78 H 146/73 H 144/74 H Pulse Oximetry 98 98 98 06/26/18 22:15 06/26/18 22:30 06/26/18 22:45 Temperature Pulse Rate 110 H 111 H 107 H Respiratory Rate 16 16 16 Blood Pressure 143/76 H 136/77 120/70 Pulse Oximetry 98 97 97 06/26/18 23:00 06/26/18 23:15 06/26/18 23:30 Temperature Pulse Rate 109 H 106 H 108 H Respiratory Rate 16 16 16 Blood Pressure 132/70 130/73 132/70 Pulse Oximetry 98 98 98 06/26/18 23:44 06/26/18 23:45 06/27/18 00:00 Temperature 99.8 F H Pulse Rate 107 H 107 H 108 H Respiratory Rate 16 16 16 Blood Pressure 130/70 142/71 H Pulse Oximetry 96 98 99 06/27/18 00:15 06/27/18 00:30 06/27/18 00:45 Temperature Pulse Rate 109 H 109 H 110 H Respiratory Rate 16 16 18 Blood Pressure 134/71 147/73 H 151/76 H Pulse Oximetry 98 98 99 06/27/18 01:00 06/27/18 01:15 06/27/18 01:30 Temperature Pulse Rate 108 H 105 H 107 H Respiratory Rate 16 16 16 Blood Pressure 147/71 H 139/74 140/77 Pulse Oximetry 99 99 99 06/27/18 01:45 06/27/18 02:00 06/27/18 02:15 Temperature Pulse Rate 107 H 107 H 104 H Respiratory Rate 16 16 16 Blood Pressure 136/76 139/73 142/76 H Pulse Oximetry 99 100 99 06/27/18 02:30 06/27/18 02:45 06/27/18 03:00 Temperature Pulse Rate 109 H 109 H 112 H Respiratory Rate 17 16 16 Blood Pressure 140/81 153/84 H 145/86 H Pulse Oximetry 100 99 99 06/27/18 03:15 06/27/18 03:30 06/27/18 03:33 Temperature Pulse Rate 109 H 107 H 108 H Respiratory Rate 16 16 16 Blood Pressure 150/93 H 148/77 H Pulse Oximetry 99 100 99 06/27/18 03:45 06/27/18 04:00 06/27/18 04:15 Temperature 99.2 F Pulse Rate 109 H 109 H 107 H Respiratory Rate 16 16 16 Blood Pressure 150/80 H 147/90 H 151/89 H Pulse Oximetry 99 99 99 06/27/18 06:00 06/27/18 08:20 Temperature Pulse Rate 118 H 104 H Respiratory Rate 16 Blood Pressure Pulse Oximetry 100 Intake & Output 06/26/18 06/27/18 06/27/18 18:59 06:59 18:59 Intake Total 1450 / 1450 1550 / 1550 100 / 100 Output Total 1200 / 1200 Balance 1450 / 1450 350 / 350 100 / 100 Weight 86.5 kg Intake: IV 1450 / 1450 1550 / 1550 100 / 100 Versed Inj 50 mg In 50 ml @ 2 50 / 50 MG/HR 2 mls/hr IV.CONT TITRATE PRN Rx#:[id number] Diprivan 1000 mg/100 ml Inj 1, 200 / 200 300 / 300 100 / 100 000 mg In 100 ml @ 5 MCG/KG/MIN 2.67 mls/hr IV.CONT TITRATE PRN Rx#:[id number] NS Inj 1,000 ML @ 84 mls/hr IV. 1000 / 1000 1000 / 1000 CONT .[id number] WOLF Rx#:[id number] Azithromycin Inj 250 MG In NS 250 / 250 Inj 250 ML @ 250 mls/hr IV.SIG Q24H WOLF Rx#:[id number] Maxipime Inj 2,000 MG In NS Inj 200 / 200 100 ML @ 200 mls/hr IV.SIG Q8H WOLF Rx#:[id number] Oral 0 / 0 Output: Urine 1200 / 1200 Other: # Incontinent Voids 1 Date of Last Bowel Movement 06/24/18 06/24/18 # Incontinent Bowel Movements 1 - Constitutional no acute distress, obese - Routine HEENT Exam Head: Present: normocephalic, atraumatic Eye: Present: EOMI, PERRL, normal accommodation, conjunctivae pink ENT: Present: mucous membranes moist - Routine Neck Exam Present: supple, full ROM, trachea midline - Routine Respiratory Exam Present: patient mechanically ventilated, CTA bilaterally - Routine Cardiovascular Exam Present: S1, S2, tachycardia - Routine Abdominal Exam Present: soft, normoactive bowel sounds - Routine Extremities Exam Present: pulses intact - Routine Skin Exam Present: intact, dry - Routine Neurological Exam Present: altered mental status - Routine Psychiatric Exam Present: unable to assess Assessment and Plan - Plan 1. VDRF 2. COPD, on 2-3 liters home oxygen. 3. Hypertension. 4. Hyperlipidemia. 5. Leukocytosis, trending down. 6. Hypernatremia. Plan On Diprivan infusion for sedation . Daily sedation vacation Continue with vent support and maintain sats >92%. Bronchodilators,Solu-Medrol 60 mg IV q.8. SBT daily as alonso. CXR: No obvious infiltrates or effusions. Continue abx cefepime/Azithromycin. Monitor for signs of infection, Follow up on sputum cx: Pending GI and DVT prophylaxis.
[2018-06-27] MEDS: Enoxaparin Inj 40 MG/0.4 ML Syringe SQ SCH (11:51)
--- NOTE | 2018-06-27 13:11 | P.PNCC ---
Subjective Subjective Remarks/Hospital Course: Mr. Curry is a 73-year-old -Wel[place] male with past medical history significant for COPD on 3 L nasal cannula, hypertension, hyperlipidemia and anxiety who was admitted to the hospitalist service on 06/19/2018 for worsening shortness of breath due to COPD exacerbation. He was treated with IV Solu- Medrol, IV antibiotics, breathing treatments gradually improved. Patient was also complaining about dyspepsia and underwent EGD by GI yesterday. Per report the EGD was normal but patient developed worsening shortness of breath and COPD exacerbation postprocedure, possibly from aspiration after sedated. Two ABGs done yesterday showed hypercapnic respiratory failure second 1 was on BiPAP and this was improved with pH 7.3 with PCO2 of 74. Patient remained on BiPAP overnight however was noticed to be lethargic today a.m., stat ABG showed pH of 7.21 PCO2 110 PO2 88 while on BiPAP. Patient was lethargic intermittently dozing off due to CO2 narcosis. Critical care medicine was consulted and I immediately evaluated the patient. Patient had obviously failed BiPAP I proceeded with endotracheal intubation placed on mechanical ventilation. Postintubation I have ordered single dose of Solu-Medrol 125 mg x1 continue Solu -Medrol 60 every 8, discontinue ceftriaxone and start cefepime 2 g IV every 8 hours continue azithromycin. Add budesonide inhaled, placed on scheduled DuoNeb every 4 hours and as needed. SUBJ 06/27: Patient was intubated yesterday for severe hypercapnic respiratory failure. Currently remains intubated sedated and intubated remains diminished bilaterally. Heavily sedated for ventilator synchrony Objective Vital Signs / I&O: Vital Signs 06/26/18 14:00 06/26/18 16:00 06/26/18 16:01 Temperature 99.9 F H Pulse Rate 106 H 109 H Respiratory Rate 16 16 Blood Pressure 146/78 H Pulse Oximetry 99 99 06/26/18 16:15 06/26/18 16:30 06/26/18 16:45 Temperature Pulse Rate 112 H 111 H 114 H Respiratory Rate 16 16 17 Blood Pressure 144/74 H 145/83 H 147/70 H Pulse Oximetry 99 99 98 06/26/18 17:00 06/26/18 17:15 06/26/18 17:30 Temperature Pulse Rate 113 H 112 H 110 H Respiratory Rate 24 16 16 Blood Pressure 130/70 138/74 140/77 Pulse Oximetry 98 98 98 06/26/18 17:45 06/26/18 18:00 06/26/18 18:15 Temperature Pulse Rate 111 H 113 H 106 H Respiratory Rate 16 19 16 Blood Pressure 130/70 138/69 134/76 Pulse Oximetry 99 97 99 06/26/18 18:30 06/26/18 18:45 06/26/18 19:00 Temperature Pulse Rate 110 H 104 H 108 H Respiratory Rate 16 16 16 Blood Pressure 144/69 H 139/73 142/76 H Pulse Oximetry 98 98 98 06/26/18 19:15 06/26/18 19:30 06/26/18 19:45 Temperature Pulse Rate 104 H 107 H 109 H Respiratory Rate 16 16 19 Blood Pressure 141/82 H 144/79 H 146/78 H Pulse Oximetry 98 98 98 06/26/18 20:00 06/26/18 20:10 06/26/18 20:15 Temperature 97.6 F Pulse Rate 106 H 110 H 109 H Respiratory Rate 18 16 16 Blood Pressure 152/76 H 150/71 H Pulse Oximetry 98 99 99 06/26/18 20:30 06/26/18 20:45 06/26/18 21:00 Temperature Pulse Rate 109 H 113 H 111 H Respiratory Rate 16 16 16 Blood Pressure 130/80 143/77 H 144/79 H Pulse Oximetry 98 98 98 06/26/18 21:15 06/26/18 21:30 06/26/18 21:45 Temperature Pulse Rate 112 H 114 H 115 H Respiratory Rate 16 16 16 Blood Pressure 156/78 H 148/78 H 146/73 H Pulse Oximetry 98 98 98 06/26/18 22:00 06/26/18 22:15 06/26/18 22:30 Temperature Pulse Rate 114 H 110 H 111 H Respiratory Rate 16 16 16 Blood Pressure 144/74 H 143/76 H 136/77 Pulse Oximetry 98 98 97 06/26/18 22:45 06/26/18 23:00 06/26/18 23:15 Temperature Pulse Rate 107 H 109 H 106 H Respiratory Rate 16 16 16 Blood Pressure 120/70 132/70 130/73 Pulse Oximetry 97 98 98 06/26/18 23:30 06/26/18 23:44 10/25/18 23:45 Temperature Pulse Rate 108 H 107 H 107 H Respiratory Rate 16 16 16 Blood Pressure 132/70 130/70 Pulse Oximetry 98 96 98 06/27/18 00:00 06/27/18 00:15 06/27/18 00:30 Temperature 99.8 F H Pulse Rate 108 H 109 H 109 H Respiratory Rate 16 16 16 Blood Pressure 142/71 H 134/71 147/73 H Pulse Oximetry 99 98 98 06/27/18 00:45 06/27/18 01:00 06/27/18 01:15 Temperature Pulse Rate 110 H 108 H 105 H Respiratory Rate 18 16 16 Blood Pressure 151/76 H 147/71 H 139/74 Pulse Oximetry 99 99 99 06/27/18 01:30 06/27/18 01:45 06/27/18 02:00 Temperature Pulse Rate 107 H 107 H 107 H Respiratory Rate 16 16 16 Blood Pressure 140/77 136/76 139/73 Pulse Oximetry 99 99 100 06/27/18 02:15 06/27/18 02:30 06/27/18 02:45 Temperature Pulse Rate 104 H 109 H 109 H Respiratory Rate 16 17 16 Blood Pressure 142/76 H 140/81 153/84 H Pulse Oximetry 99 100 99 06/27/18 03:00 06/27/18 03:15 06/27/18 03:30 Temperature Pulse Rate 112 H 109 H 107 H Respiratory Rate 16 16 16 Blood Pressure 145/86 H 150/93 H 148/77 H Pulse Oximetry 99 99 100 06/27/18 03:33 06/27/18 03:45 06/27/18 04:00 Temperature 99.2 F Pulse Rate 108 H 109 H 109 H Respiratory Rate 16 16 16 Blood Pressure 150/80 H 147/90 H Pulse Oximetry 99 99 99 06/27/18 04:15 06/27/18 06:00 06/27/18 08:20 Temperature Pulse Rate 107 H 118 H 104 H Respiratory Rate 16 16 Blood Pressure 151/89 H Pulse Oximetry 99 100 06/27/18 12:19 Temperature Pulse Rate 117 H Respiratory Rate 16 Blood Pressure Pulse Oximetry 100 Intake & Output 06/26/18 06/27/18 06/27/18 18:59 06:59 18:59 Intake Total 1450 / 1450 1550 / 1550 350 / 350 Output Total 1200 / 1200 Balance 1450 / 1450 350 / 350 350 / 350 Weight 86.5 kg Intake: IV 1450 / 1450 1550 / 1550 350 / 350 Versed Inj 50 mg In 50 ml @ 2 50 / 50 MG/HR 2 mls/hr IV.CONT TITRATE PRN Rx#:[id number] Diprivan 1000 mg/100 ml Inj 1, 200 / 200 300 / 300 100 / 100 000 mg In 100 ml @ 5 MCG/KG/MIN 2.67 mls/hr IV.CONT TITRATE PRN Rx#:[id number] NS Inj 1,000 ML @ 84 mls/hr IV. 1000 / 1000 1000 / 1000 CONT .[id number] WOLF Rx#:[id number] Azithromycin Inj 250 MG In NS 250 / 250 250 / 250 Inj 250 ML @ 250 mls/hr IV.SIG Q24H WOLF Rx#:[id number] Maxipime Inj 2,000 MG In NS Inj 200 / 200 100 ML @ 200 mls/hr IV.SIG Q8H WOLF Rx#:[id number] Oral 0 / 0 Output: Urine 1200 / 1200 Other: # Incontinent Voids 1 Date of Last Bowel Movement 06/24/18 06/24/18 # Incontinent Bowel Movements 1 Result Diagrams: 06/26/18 04:04 06/26/18 04:04 Objective Remarks: General appearance: 73-year-old -Wel[place] male, intubated sedated Cardiovascular: S1-S2 normal, no murmurs Respiratory: On PRVC/AC, shallow breathing, markedly diminished breath sounds bilaterally, no wheezing Abdomen: Firm, distended, normal bowel sounds. Extremities 1+ pitting edema bilateral lower extremities. Neuro: Intubated heavily sedated. On lightening sedation patient moves all extremities not following commands Assessment and Plan - Assessment and Plan Plan: ASSESSMENT: Acute hypercapnic respiratory failure Acute COPD exacerbation Altered mental status due to CO2 narcosis Leukocytosis Acute kidney insufficiency Hyperglycemia PLAN: NEURO: -Propofol and Versed for sedation and ventilator synchrony -Start daily sedation medication as tolerated RESP: -PRVC/AC -Ventilator bundle -DuoNeb every 4 hours scheduled and as needed -IV Solu-Medrol 60 mg every 8 hours -Inhaled budesonide -Continue cefepime continue azithromycin CV: -Normal saline IV fluids, 50 mL/h GI: -N.p.o., PPI -Start tube feeds with Jevity : -Monitor renal function closely. No indication for Moreno at this time ID: -Antibiotics with cefepime and azithromycin -Sputum [id number] HEME: -Monitor CBC, coags ENDO: -Electrolyte replacement per protocol -Sliding scale insulin PROPH: -Bilateral lower extremity SCDs. Lovenox/PPI LINES: -Utilize peripheral IVs, central line if needed CC time 35 min Patient remains critically ill from severe COPD exacerbation and hypercapnic respiratory failure. Continue IV steroids breathing treatment and ventilator support, hopefully in 24 hours start weaning trial
[2018-06-27 13:34] LABS: Baso % (Auto) 0.1 % (0.0-2.0); Hemoglobin 13.5 gm/dL (13.0-17.0); Lymph # (Auto) 0.2 th/mm3 (1.0-4.8); Mean Corpuscular Hemoglobin 29.4 pg (27.0-34.0); Mean Corpuscular Volume 91.8 fL (80.0-100.0); Mean Platelet Volume 10.2 fL (7.0-11.0); Mono # (Auto) 0.8 th/mm3 (0.0-0.9); Mono % (Auto) 5.2 % (0.0-8.0); Neut # (Auto) 14.5 th/mm3 (1.8-7.7); Neut % (Auto) 93.7 % (16.0-70.0); Platelet Count 110 th/mm3 (150-450); Red Blood Count 4.57 mil/mm3 (4.50-5.90); Red Cell Distribution Width 14.2 % (11.6-17.2); White Blood Count 15.5 th/mm3 (4.0-11.0)
[2018-06-27] MEDS: Azithromycin Inj 250 MG in Sodium Chlor 0.9% Inj 250 ML IV.SIG SCH (14:01)
[2018-06-27 14:20] LABS: Alanine Aminotransferase 57 U/L (12-78); Albumin 3.5 g/dL (3.4-5.0); Alkaline Phosphatase 62 U/L (45-117); Anion Gap 10 meq/L (5-15); Aspartate Aminotransferase 41 U/L (15-37); Blood Urea Nitrogen 63 mg/dL (7-18); Calcium 7.9 mg/dL (8.5-10.1); Carbon Dioxide 32.6 meq/L (21.0-32.0); Chloride 103 meq/L (98-107); Glomerular Filtration Rate 38 mL/min (>89); Glucose,Random 264 mg/dL (74-106); Magnesium 3.1 mg/dL (1.5-2.5); Phosphorus 3.5 mg/dL (2.5-4.9); Sodium 146 meq/L (136-145); Total Protein 6.6 g/dL (6.4-8.2)
[2018-06-27 14:24] LABS: Potassium 2.7 meq/L (3.5-5.1)
[2018-06-27] MEDS ORDERED: Sod Chloride 0.9% Inj 1,000 ML IV.SIG SCH (16:15)
[2018-06-27] MEDS ORDERED: Potassium Chlor 20 mEq Premix 20 MEQ/100 ML PIGGYBACK IV.SIG ONE (16:30)
[2018-06-27] MEDS ORDERED: Potassium Chloride 20 MEQ Pwd Pkt NG/OG ONE (17:00)
[2018-06-27] MEDS: dilTIAZem 30 MG Tablet PO SCH ×2 (17:14→19:59)
[2018-06-27] MEDS: Midazolam 50 MG/50 ML Inj 50 MG/50 ML BAG IV.CONT PRN (17:32)
[2018-06-27] MEDS: LACTATED RINGER S IV.CONT SCH (17:52)
[2018-06-27] MEDS: DEXTROSE IV.CONT SCH (17:52)
[2018-06-27] MEDS: POTASSIUM CHLORIDE IV.CONT SCH (17:52)
[2018-06-27] MEDS ORDERED: Potassium Bicarbonate 25 MEQ Effervescent Tablet NG/OG ONE (18:00)
[2018-06-27 21:39] LABS: Albumin 2.7 g/dL (3.4-5.0); Calcium 7.2 mg/dL (8.5-10.1); Carbon Dioxide 30.2 meq/L (21.0-32.0); Potassium 3.5 meq/L (3.5-5.1); Total Protein 5.6 g/dL (6.4-8.2)
[2018-06-27 22:47] LABS: Bilirubin,Urine Negative (Negative); Clarity,Urine Clear (Clear); Color,Urine Straw (Yellw/Straw); Glucose,Urine (UA) Negative (Negative); Hyaline Casts,Urine 1 /lpf (0-3); Leukocyte Esterase,Urine Negative (Negative); Mucus,Urine Few /lpf (Occasional); Nitrite,Urine Negative (Negative); Specific Gravity,Urine 1.009 (1.002-1.035)
[2018-06-28] MEDS: Propofol 1000 mg/100 ml Inj 1,000 MG/100 ML BOTTLE IV.CONT PRN (02:59)
--- NOTE | 2018-06-28 04:40 | XR ---
EXAM DATE: 06/28/2018 4:00 AM EDT AGE/SEX: 73 years / Male INDICATIONS: Shortness of breath, possible pulmonary disease. CLINICAL DATA: This is the patient's subsequent encounter. Patient reports that signs and symptoms h ave been present for 1 week and indicates a pain score of Nonresponsive. MEDICAL/SURGICAL HISTORY: Anemia. Asthma. Hypertension. COPD. None. COMPARISON: C, CHEST 1V SINGLE AP, 06/26/2018. . FINDINGS: ET tube well above the christy. Gastric tube traverses the [id number]. Right internal jugular azam ter tip projects over the mid superior vena cava. The lungs are symmetrically aerated and clear. The heart is normal in size. CONCLUSION: The lungs are clear. Lines and tubes stable. Electronically signed by: Brandon Sen MD 06/28/2018 4:39 AM EDT
[2018-06-28] MEDS: LACTATED RINGER S IV.CONT SCH (04:53)
[2018-06-28] MEDS: DEXTROSE IV.CONT SCH (04:53)
[2018-06-28] MEDS: Oral Hygiene Kit OROPHARYNG SCH ×3 (04:53→16:51)
[2018-06-28] MEDS: POTASSIUM CHLORIDE IV.CONT SCH (04:53)
[2018-06-28 05:14] LABS: Baso % (Auto) 0.3 % (0.0-2.0); Hematocrit 34.8 % (39.0-51.0); Hemoglobin 11.5 gm/dL (13.0-17.0); Lymph # (Auto) 0.1 th/mm3 (1.0-4.8); Mean Corpuscular HGB Conc 33.1 % (32.0-36.0); Mean Corpuscular Volume 90.6 fL (80.0-100.0); Mean Platelet Volume 10.9 fL (7.0-11.0); Mono # (Auto) 0.4 th/mm3 (0.0-0.9); Mono % (Auto) 4.1 % (0.0-8.0); Neut # (Auto) 8.9 th/mm3 (1.8-7.7); Neut % (Auto) 94.6 % (16.0-70.0); Platelet Count 94 th/mm3 (150-450); Red Blood Count 3.84 mil/mm3 (4.50-5.90); Red Cell Distribution Width 13.8 % (11.6-17.2); White Blood Count 9.4 th/mm3 (4.0-11.0)
[2018-06-28 05:57] LABS: Alanine Aminotransferase 41 U/L (12-78); Albumin 2.7 g/dL (3.4-5.0); Alkaline Phosphatase 52 U/L (45-117); Anion Gap 9 meq/L (5-15); Aspartate Aminotransferase 25 U/L (15-37); Blood Urea Nitrogen 63 mg/dL (7-18); Calcium 7.5 mg/dL (8.5-10.1); Carbon Dioxide 33.5 meq/L (21.0-32.0); Chloride 108 meq/L (98-107); Glomerular Filtration Rate 39 mL/min (>89); Glucose,Random 425 mg/dL (74-106); Magnesium 2.9 mg/dL (1.5-2.5); Phosphorus 2.4 mg/dL (2.5-4.9); Potassium 3.2 meq/L (3.5-5.1); Sodium 150 meq/L (136-145); Total Protein 5.7 g/dL (6.4-8.2)
[2018-06-28 06:25] LABS: Platelet Morphology Normal (Normal); RBC Morphology Normal (Normal)
[2018-06-28] MEDS ORDERED: Dextrose 50% in Water 50 ML Vial IV.PUSH PRN (06:54)
[2018-06-28] MEDS ORDERED: Potassium Phosphate 500 MG Soluble Tablet PO ONE (06:58)
[2018-06-28] MEDS ORDERED: Potassium Chloride 25 MEQ Effervescent Tablet PO PRN (06:59)
[2018-06-28] MEDS ORDERED: Sodium Phosphate Inj 30 MMOL in Sodium Chlor 0.9% Inj 250 ML IV.SIG PRN (06:59)
[2018-06-28] MEDS ORDERED: Potassium Chlor 40 mEq Premix 40 MEQ/100 ML PIGGYBACK IV.SIG PRN (06:59)
[2018-06-28] MEDS ORDERED: Magnesium Sulfate Inj 4 GM in Sodium Chlor 0.9% Inj 92 ML IV.SIG PRN (06:59)
[2018-06-28] MEDS ORDERED: Magnesium Sulfate Inj 2 GM in Sodium Chlor 0.9% Inj 96 ML IV.SIG PRN (06:59)
[2018-06-28] MEDS ORDERED: Potassium Phosphate Inj 30 MMOL in Sodium Chlor 0.9% Inj 250 ML IV.SIG PRN (06:59)
[2018-06-28] MEDS ORDERED: Potassium Chlor 20 mEq Premix 20 MEQ/100 ML PIGGYBACK IV.SIG PRN ×2 (06:59)
[2018-06-28] MEDS ORDERED: Potassium Phosphate 500 MG Soluble Tablet PO PRN (06:59)
[2018-06-28] MEDS ORDERED: Magnesium Oxide 400 MG Tablet PO PRN (06:59)
--- NOTE | 2018-06-28 07:09 | P.PNCC ---
Subjective Subjective Remarks/Hospital Course: Mr. Curry is a 73-year-old -[place] male with past medical history significant for COPD on 3 L nasal cannula, hypertension, hyperlipidemia and anxiety who was admitted to the hospitalist service on 06/19/2018 for worsening shortness of breath due to COPD exacerbation. He was treated with IV Solu- Medrol, IV antibiotics, breathing treatments gradually improved. Patient was also complaining about dyspepsia and underwent EGD by GI yesterday. Per report the EGD was normal but patient developed worsening shortness of breath and COPD exacerbation postprocedure, possibly from aspiration after sedated. Two ABGs done yesterday showed hypercapnic respiratory failure second 1 was on BiPAP and this was improved with pH 7.3 with PCO2 of 74. Patient remained on BiPAP overnight however was noticed to be lethargic today a.m., stat ABG showed pH of 7.21 PCO2 110 PO2 88 while on BiPAP. Patient was lethargic intermittently dozing off due to CO2 narcosis. Critical care medicine was consulted and I immediately evaluated the patient. Patient had obviously failed BiPAP I proceeded with endotracheal intubation placed on mechanical ventilation. Postintubation I have ordered single dose of Solu-Medrol 125 mg x1 continue Solu -Medrol 60 every 8, discontinue ceftriaxone and start cefepime 2 g IV every 8 hours continue azithromycin. Add budesonide inhaled, placed on scheduled DuoNeb every 4 hours and as needed. SUBJ 06/27: Patient was intubated yesterday for severe hypercapnic respiratory failure. Currently remains intubated sedated and intubated remains diminished bilaterally. Heavily sedated for ventilator synchrony 06/28: Urine output significantly improved with fluid resuscitation. Creat down trending now 2 from 2.3, UO >3.3 L. Remains intubated sedated. Will initiate daily sedation vacation and CPAP trials Objective Vital Signs / I&O: Vital Signs 06/27/18 07:30 06/27/18 08:00 06/27/18 08:20 Temperature 97.8 F Pulse Rate 106 H 101 H 104 H Respiratory Rate 16 16 16 Blood Pressure 151/77 H 149/76 H Pulse Oximetry 99 100 100 06/27/18 08:30 06/27/18 09:00 06/27/18 09:30 Temperature Pulse Rate 107 H 108 H 114 H Respiratory Rate 16 16 16 Blood Pressure 165/85 H 160/86 H 173/95 H Pulse Oximetry 99 98 98 06/27/18 10:00 06/27/18 10:30 06/27/18 11:00 Temperature Pulse Rate 125 H 124 H 121 H Respiratory Rate 20 22 18 Blood Pressure 151/78 H 129/66 149/70 H Pulse Oximetry 99 99 99 06/27/18 11:30 06/27/18 12:00 06/27/18 12:19 Temperature 97.7 F Pulse Rate 121 H 119 H 117 H Respiratory Rate 24 19 16 Blood Pressure 142/76 H 147/77 H Pulse Oximetry 98 98 100 06/27/18 12:30 06/27/18 13:00 06/27/18 13:30 Temperature Pulse Rate 118 H 118 H 116 H Respiratory Rate 16 16 16 Blood Pressure 131/76 119/75 116/76 Pulse Oximetry 99 100 100 06/27/18 14:00 06/27/18 14:30 06/27/18 15:00 Temperature Pulse Rate 117 H 119 H 121 H Respiratory Rate 16 16 16 Blood Pressure 127/77 134/73 126/73 Pulse Oximetry 99 98 98 06/27/18 15:30 06/27/18 16:00 06/27/18 16:30 Temperature 98.1 F Pulse Rate 122 H 121 H 105 H Respiratory Rate 16 16 17 Blood Pressure 132/73 128/70 125/72 Pulse Oximetry 97 97 97 06/27/18 17:00 06/27/18 17:30 06/27/18 18:00 Temperature Pulse Rate 117 H 114 H 109 H Respiratory Rate 16 16 16 Blood Pressure 131/73 115/64 93/54 L Pulse Oximetry 97 98 97 06/27/18 18:30 06/27/18 19:00 06/27/18 19:30 Temperature Pulse Rate 107 H 104 H 100 H Respiratory Rate 16 16 16 Blood Pressure 84/53 L 86/53 L 89/52 L Pulse Oximetry 97 96 96 06/27/18 20:00 06/27/18 20:25 06/27/18 20:28 Temperature 97.6 F Pulse Rate 97 H 102 H Respiratory Rate 16 16 16 Blood Pressure 86/53 L Pulse Oximetry 96 96 06/27/18 20:30 06/27/18 21:00 06/27/18 21:30 Temperature Pulse Rate 100 H 100 H 99 H Respiratory Rate 16 16 16 Blood Pressure 91/60 L 106/56 L 105/60 Pulse Oximetry 98 99 99 06/27/18 22:00 06/27/18 22:30 06/27/18 23:00 Temperature Pulse Rate 100 H 97 H 95 H Respiratory Rate 16 16 16 Blood Pressure 96/58 L 95/54 L 100/60 Pulse Oximetry 99 98 98 06/27/18 23:30 06/28/18 00:00 06/28/18 00:10 Temperature 97.4 F L Pulse Rate 94 H 96 H Respiratory Rate 16 16 16 Blood Pressure 98/60 L 89/53 L Pulse Oximetry 98 97 98 06/28/18 00:15 06/28/18 00:30 06/28/18 01:00 Temperature Pulse Rate 92 H 94 H 93 H Respiratory Rate 16 16 16 Blood Pressure 85/50 L 88/55 L Pulse Oximetry 98 98 06/28/18 01:30 06/28/18 02:00 06/28/18 02:30 Temperature Pulse Rate 93 H 92 H 92 H Respiratory Rate 16 16 16 Blood Pressure 92/58 L 95/56 L 96/57 L Pulse Oximetry 99 99 98 06/28/18 03:00 06/28/18 03:25 06/28/18 03:26 Temperature Pulse Rate 93 H 90 Respiratory Rate 16 16 17 Blood Pressure 94/55 L Pulse Oximetry 98 100 06/28/18 03:30 06/28/18 04:00 06/28/18 04:30 Temperature 96.8 F L Pulse Rate 93 H 93 H 92 H Respiratory Rate 16 16 16 Blood Pressure 96/59 L 94/57 L 98/58 L Pulse Oximetry 100 98 98 06/28/18 05:00 06/28/18 05:30 Temperature Pulse Rate 90 91 H Respiratory Rate 16 16 Blood Pressure 101/56 L 96/54 L Pulse Oximetry 99 98 Intake & Output 06/27/18 06/28/18 06/28/18 18:59 06:59 18:59 Intake Total 950 / 950 1220 / 1220 Output Total 1550 / 1550 2450 / 2450 Balance -600 / -600 -1230 / -1230 Intake: IV 950 / 950 1220 / 1220 Versed Inj 50 mg In 50 ml @ 2 50 / 50 MG/HR 2 mls/hr IV.CONT TITRATE PRN Rx#:[id number] KCl Inj 40 MEQ In D5W/LR Inj 1, 1020 / 1020 000 ML @ 100 mls/hr IV.CONT . [id number] WOLF Rx#:[id number] Diprivan 1000 mg/100 ml Inj 1, 300 / 300 200 / 200 000 mg In 100 ml @ 5 MCG/KG/MIN 2.67 mls/hr IV.CONT TITRATE PRN Rx#:[id number] Azithromycin Inj 250 MG In NS 500 / 500 Inj 250 ML @ 250 mls/hr IV.SIG Q24H WOLF Rx#:[id number] Maxipime Inj 2,000 MG In NS Inj 100 / 100 100 ML @ 200 mls/hr IV.SIG Q8H WOLF Rx#:[id number] Output: Urine Amount (Catheter) 1350 / 1350 2450 / 2450 Indwelling Urethral Catheter 1350 / 1350 2450 / 2450 Gastric Drainage 200 / 200 Orogastric Tube 200 / 200 Other: Date of Last Bowel Movement 06/27/18 06/27/18 Result Diagrams: 06/28/18 05:00 06/28/18 05:00 Objective Remarks: General appearance: 73-year-old -[place] male, intubated sedated Cardiovascular: S1-S2 normal, no murmurs Respiratory: On PRVC/AC, shallow breathing, markedly diminished breath sounds bilaterally, no wheezing Abdomen: Firm, distended, normal bowel sounds. Extremities 1+ pitting edema bilateral lower extremities. Neuro: Intubated heavily sedated. On lightening sedation patient moves all extremities not following commands Assessment and Plan - Assessment and Plan Plan: ASSESSMENT: Acute hypercapnic respiratory failure Acute COPD exacerbation Altered mental status due to CO2 narcosis Acute kidney injury/failure Hypokalemia/hypophosphatemia Leukocytosis Hyperglycemia COPD PLAN: NEURO: -Propofol and Versed for sedation and ventilator synchrony -Start daily sedation vacation RESP: -PRVC/AC, Ventilator bundle -DuoNeb every 4 hours scheduled and as needed -IV Solu-Medrol 60 mg every 8 hours-reduce to 40 q8 -Inhaled budesonide -Continue cefepime continue azithromycin -Start SBT CV: -1L NS bolus giveb 06/27 for oliguria -Continue IVF LR with KCL at 125 ml per hour GI: -N.p.o., PPI -Start tube feeds with Glucerna : -Monitor renal function closely. Continue Moreno for hourly intake output ID: -Antibiotics with cefepime and azithromycin -Sputum cultures-neg to date HEME: -Monitor CBC, coags ENDO: -Electrolyte replacement per protocol -Sliding scale insulin medium scale, Add Levemir 10 q12 PROPH: -Bilateral lower extremity SCDs. Lovenox/PPI LINES: -Utilize peripheral IVs, central line if needed CC time 35 min Patient remains critically ill from severe COPD exacerbation and hypercapnic respiratory failure. Continue IV steroids breathing treatment and ventilator support, hopefully in 24 hours start weaning trial. Renal failure slowly improving with aggressive resuscitation Code Status: Full
[2018-06-28] MEDS ORDERED: Dexmedetomidine Inj 200 MCG in Sodium Chlor 0.9% Inj 48 ML IV.CONT PRN (08:03)
[2018-06-28] MEDS: MethylPREDNISolone Sod Succinate Inj 40 MG/ML Vial IV.PUSH SCH ×2 (08:31→17:00)
[2018-06-28] MEDS: amLODIPine 10 MG Tablet PO SCH (08:31)
[2018-06-28] MEDS: Simethicone 80 MG Chew Tablet PO SCH ×4 (08:31→20:40)
[2018-06-28] MEDS: Senna/Docusate Sodium 8.6/50 MG Tablet PO SCH ×2 (08:31→20:41)
[2018-06-28] MEDS: hydrALAZINE 50 MG Tablet PO SCH ×3 (08:31→18:41)
[2018-06-28] MEDS: Beneprotein Powder Packet G-TUBE SCH ×3 (08:32→18:35)
[2018-06-28] MEDS: dilTIAZem 30 MG Tablet PO SCH ×4 (08:32→20:40)
[2018-06-28] MEDS: Insulin NovoLIN Regular Correctional Sugar Inj SQ SCH ×4 (08:57→20:39)
[2018-06-28] MEDS: Chlorhexidine 0.12% Oral Kit 15 ML UDC OROPHARYNG SCH ×2 (08:58→20:39)
[2018-06-28] MEDS: Insulin Detemir Inj 1,000 UNIT/10 ML Vial SQ SCH ×2 (08:59→20:40)
[2018-06-28] MEDS: Pantoprazole Sodium 20 MG DR Tablet PO SCH (09:09)
--- NOTE | 2018-06-28 09:31 | P.PNPL ---
Subjective Interval history: Patient is off sedation on CPAP with PS 12, PEEP:5 and FIO2: 40%. Afebrile. CXR this morning showed clear lungs. Physical Exam Vital signs: Vital Signs 06/27/18 09:30 06/27/18 10:00 06/27/18 10:30 Temperature Pulse Rate 114 H 125 H 124 H Respiratory Rate 16 20 22 Blood Pressure 173/95 H 151/78 H 129/66 Pulse Oximetry 98 99 99 06/27/18 11:00 06/27/18 11:30 06/27/18 12:00 Temperature 97.7 F Pulse Rate 121 H 121 H 119 H Respiratory Rate 18 24 19 Blood Pressure 149/70 H 142/76 H 147/77 H Pulse Oximetry 99 98 98 06/27/18 12:19 06/27/18 12:30 06/27/18 13:00 Temperature Pulse Rate 117 H 118 H 118 H Respiratory Rate 16 16 16 Blood Pressure 131/76 119/75 Pulse Oximetry 100 99 100 06/27/18 13:30 06/27/18 14:00 06/27/18 14:30 Temperature Pulse Rate 116 H 117 H 119 H Respiratory Rate 16 16 16 Blood Pressure 116/76 127/77 134/73 Pulse Oximetry 100 99 98 06/27/18 15:00 06/27/18 15:30 06/27/18 16:00 Temperature 98.1 F Pulse Rate 121 H 122 H 121 H Respiratory Rate 16 16 16 Blood Pressure 126/73 132/73 128/70 Pulse Oximetry 98 97 97 06/27/18 16:30 06/27/18 17:00 06/27/18 17:30 Temperature Pulse Rate 105 H 117 H 114 H Respiratory Rate 17 16 16 Blood Pressure 125/72 131/73 115/64 Pulse Oximetry 97 97 98 06/27/18 18:00 06/27/18 18:30 06/27/18 19:00 Temperature Pulse Rate 109 H 107 H 104 H Respiratory Rate 16 16 16 Blood Pressure 93/54 L 84/53 L 86/53 L Pulse Oximetry 97 97 96 06/27/18 19:30 06/27/18 20:00 06/27/18 20:25 Temperature 97.6 F Pulse Rate 100 H 97 H 102 H Respiratory Rate 16 16 16 Blood Pressure 89/52 L 86/53 L Pulse Oximetry 96 96 06/27/18 20:28 06/27/18 20:30 06/27/18 21:00 Temperature Pulse Rate 100 H 100 H Respiratory Rate 16 16 16 Blood Pressure 91/60 L 106/56 L Pulse Oximetry 96 98 99 06/27/18 21:30 06/27/18 22:00 06/27/18 22:30 Temperature Pulse Rate 99 H 100 H 97 H Respiratory Rate 16 16 16 Blood Pressure 105/60 96/58 L 95/54 L Pulse Oximetry 99 99 98 06/27/18 23:00 06/27/18 23:30 06/28/18 00:00 Temperature 97.4 F L Pulse Rate 95 H 94 H 96 H Respiratory Rate 16 16 16 Blood Pressure 100/60 98/60 L 89/53 L Pulse Oximetry 98 98 97 06/28/18 00:10 06/28/18 00:15 06/28/18 00:30 Temperature Pulse Rate 92 H 94 H Respiratory Rate 16 16 16 Blood Pressure 85/50 L Pulse Oximetry 98 98 06/28/18 01:00 06/28/18 01:30 06/28/18 02:00 Temperature Pulse Rate 93 H 93 H 92 H Respiratory Rate 16 16 16 Blood Pressure 88/55 L 92/58 L 95/56 L Pulse Oximetry 98 99 99 06/28/18 02:30 06/28/18 03:00 06/28/18 03:25 Temperature Pulse Rate 92 H 93 H Respiratory Rate 16 16 16 Blood Pressure 96/57 L 94/55 L Pulse Oximetry 98 98 100 06/28/18 03:26 06/28/18 03:30 06/28/18 04:00 Temperature 96.8 F L Pulse Rate 90 93 H 93 H Respiratory Rate 17 16 16 Blood Pressure 96/59 L 94/57 L Pulse Oximetry 100 98 06/28/18 04:30 06/28/18 05:00 06/28/18 05:30 Temperature Pulse Rate 92 H 90 91 H Respiratory Rate 16 16 16 Blood Pressure 98/58 L 101/56 L 96/54 L Pulse Oximetry 98 99 98 06/28/18 06:00 06/28/18 07:34 06/28/18 07:35 Temperature Pulse Rate 93 H 109 H Respiratory Rate 12 14 Blood Pressure Pulse Oximetry 93 L Intake & Output 06/27/18 06/28/18 06/28/18 18:59 06:59 18:59 Intake Total 950 / 950 1220 / 1220 Output Total 1550 / 1550 2400 / 2400 200 / 200 Balance -600 / -600 -1180 / -1180 -200 / -200 Weight 89.5 kg Intake: IV 950 / 950 1220 / 1220 Versed Inj 50 mg In 50 ml @ 2 50 / 50 MG/HR 2 mls/hr IV.CONT TITRATE PRN Rx#:[id number] KCl Inj 40 MEQ In D5W/LR Inj 1, 1020 / 1020 000 ML @ 100 mls/hr IV.CONT . [id number] [facility] Rx#:[id number] Diprivan 1000 mg/100 ml Inj 1, 300 / 300 200 / 200 000 mg In 100 ml @ 5 MCG/KG/MIN 2.67 mls/hr IV.CONT TITRATE PRN Rx#:[id number] Azithromycin Inj 250 MG In NS 500 / 500 Inj 250 ML @ 250 mls/hr IV.SIG Q24H [facility] Rx#:[id number] Maxipime Inj 2,000 MG In NS Inj 100 / 100 100 ML @ 200 mls/hr IV.SIG Q8H [facility] Rx#:[id number] Output: Urine Amount (Catheter) 1350 / 1350 2400 / 2400 200 / 200 Indwelling Urethral Catheter 1350 / 1350 2400 / 2400 200 / 200 Gastric Drainage 200 / 200 Orogastric Tube 200 / 200 Other: Date of Last Bowel Movement 06/27/18 06/27/18 06/27/18 # Bowel Movements 0 - Constitutional no acute distress, obese - Routine HEENT Exam Head: Present: normocephalic, atraumatic Eye: Present: EOMI, PERRL, normal accommodation, conjunctivae pink ENT: Present: mucous membranes moist - Routine Neck Exam Present: supple, full ROM, trachea midline - Routine Respiratory Exam Present: patient mechanically ventilated, CTA bilaterally - Routine Cardiovascular Exam Present: RRR, S1, S2 - Routine Abdominal Exam Present: soft, normoactive bowel sounds - Routine Extremities Exam Present: pulses intact - Routine Skin Exam Present: intact, dry - Routine Neurological Exam Present: altered mental status - Urinary Catheter Management Indwelling Urethral Catheter Cath placed during this visit: yes Reason for continuing: Hourly intake/output Insertion date: 06/27/18 Insertion time: 16:00 Assessment and Plan - Plan 1. VDRF 2. COPD, on 2-3 liters home oxygen. 3. Hypertension. 4. Hyperlipidemia. 5. Leukocytosis, trending down. 6. Hypernatremia. Plan Off sedation, monitor neuro status. Continue with vent support and maintain sats >92%. Bronchodilators,Solu-Medrol 60 mg IV q.8. SBT daily as alonso. CXR today: No obvious infiltrates or effusions. Continue abx cefepime/Azithromycin. Monitor for signs of infection, 06/26 sputum cx: normal resp justyn GI and DVT prophylaxis. Continue treatment plan
[2018-06-28] MEDS: Enoxaparin Inj 40 MG/0.4 ML Syringe SQ SCH (12:17)
[2018-06-28] MEDS: Bisacodyl 10 MG Supp RECTAL SCH (13:07)
[2018-06-28] MEDS: Azithromycin Inj 250 MG in Sodium Chlor 0.9% Inj 250 ML IV.SIG SCH (14:41)
[2018-06-28] MEDS: Famotidine PF Inj 20 MG/2 ML Vial IV.PUSH SCH (18:41)
--- NOTE | 2018-06-28 22:35 | US ---
EXAM DATE: 06/28/2018 10:31 PM EDT AGE/SEX: 73 years / Male INDICATIONS: Increased lab values. CLINICAL DATA: This is the patient's initial encounter. Patient reports that signs and symptoms have been present for 1 day and indicates a pain score of Nonresponsive. MEDICAL/SURGICAL HISTORY: Chronic obstructive pulmonary disease. Hypertension. Anxiety. Asthma . Chronic back pain. None. COMPARISON: No prior exams available for comparison. MEASUREMENTS: Right Kidney:__9.3 x 4.3 x 3.2 cm Left Kidney:__9.0 x 4.8 x 4.5 cm FINDINGS: Right Kidney: Increased echotexture. No mass or hydronephrosis. Left Kidney: Increased echotexture. No mass or hydronephrosis. Bladder: Bladder decompressed by Moreno. Other: None. CONCLUSION: 1. Echogenic kidneys characteristic of medical renal disease. No hydronephrosis. Bladder decompresse d by Moreno Electronically signed by: Angus Millan MD 06/28/2018 10:34 PM EDT
--- NOTE | 2018-06-28 23:54 | ECG ---
Date Performed: 06/28/2018 Time Performed: 10:47:25 PTAGE: 73 years EKG: SINUS TACHYCARDIA WITH SHORT OK INTERVAL INDETERMINATE AXIS SEPTAL MYOCARDIAL INFARCTION LE FT AXIS DEVIATION ABNORMAL ECG PREVIOUS TRACING : 06/19/2018 20.46 Compared to previous tracing, LEFT AXIS DEVIATION AND SEPTA L MYOCARDIAL INFARCTION ARE NEW DOCTOR: Chalino Chauhan Interpretating Date/Time 06/28/2018 23:53:27
[2018-06-29] MEDS: Insulin NovoLIN Regular Correctional Sugar Inj SQ SCH ×7 (01:27→23:39)
[2018-06-29 01:30] LABS: Alanine Aminotransferase 37 U/L (12-78); Albumin 2.7 g/dL (3.4-5.0); Alkaline Phosphatase 50 U/L (45-117); Anion Gap 3 meq/L (5-15); Aspartate Aminotransferase 21 U/L (15-37); Blood Urea Nitrogen 58 mg/dL (7-18); Calcium 7.9 mg/dL (8.5-10.1); Carbon Dioxide 37.6 meq/L (21.0-32.0); Chloride 118 meq/L (98-107); Glomerular Filtration Rate 62 mL/min (>89); Glucose,Random 136 mg/dL (74-106); Total Protein 5.6 g/dL (6.4-8.2)
[2018-06-29] MEDS: MethylPREDNISolone Sod Succinate Inj 40 MG/ML Vial IV.PUSH SCH ×4 (01:30→23:39)
[2018-06-29 01:33] LABS: Sodium 159 meq/L (136-145)
[2018-06-29] MEDS ORDERED: Dextrose 5% in Water Inj 1,000 ML IV.CONT SCH (02:00)
[2018-06-29] MEDS: Oral Hygiene Kit OROPHARYNG SCH ×5 (02:02→23:39)
--- NOTE | 2018-06-29 05:05 | XR ---
EXAM DATE: 06/29/2018 4:50 AM EDT AGE/SEX: 73 years / Male INDICATIONS: Shortness of breath, possible pulmonary disease. CLINICAL DATA: This is the patient's subsequent encounter. Patient reports that signs and symptoms h ave been present for 1 week and indicates a pain score of Nonresponsive. MEDICAL/SURGICAL HISTORY: Chronic obstructive pulmonary disease. Hypertension. Asthma. None. COMPARISON: C, CHEST 1V SINGLE AP, 06/28/2018. . FINDINGS: ET tube tip well above the christy. Gastric tube and side-port project within the stomach. Right inter nal jugular catheter tip in the mid superior vena cava. The lungs are symmetrically aerated and clear . The heart is normal in size. CONCLUSION: The lungs are clear. Lines and tubes stable. Electronically signed by: Brandon Sen MD 06/29/2018 5:04 AM EDT
[2018-06-29] MEDS: Famotidine PF Inj 20 MG/2 ML Vial IV.PUSH SCH ×2 (06:37→18:02)
[2018-06-29 07:04] LABS: Baso % (Auto) 0.1 % (0.0-2.0); Hematocrit 36.1 % (39.0-51.0); Hemoglobin 11.7 gm/dL (13.0-17.0); Lymph # (Auto) 0.2 th/mm3 (1.0-4.8); Lymph % (Auto) 1.6 % (9.0-44.0); Mean Corpuscular HGB Conc 32.4 % (32.0-36.0); Mean Corpuscular Hemoglobin 29.4 pg (27.0-34.0); Mean Corpuscular Volume 90.7 fL (80.0-100.0); Mean Platelet Volume 10.6 fL (7.0-11.0); Mono # (Auto) 0.8 th/mm3 (0.0-0.9); Mono % (Auto) 5.1 % (0.0-8.0); Neut # (Auto) 14.7 th/mm3 (1.8-7.7); Neut % (Auto) 93.2 % (16.0-70.0); Platelet Count 88 th/mm3 (150-450); Red Blood Count 3.98 mil/mm3 (4.50-5.90); Red Cell Distribution Width 14.3 % (11.6-17.2); White Blood Count 15.7 th/mm3 (4.0-11.0)
[2018-06-29 07:34] LABS: Alanine Aminotransferase 40 U/L (12-78); Albumin 2.9 g/dL (3.4-5.0); Alkaline Phosphatase 55 U/L (45-117); Anion Gap 5 meq/L (5-15); Aspartate Aminotransferase 19 U/L (15-37); Blood Urea Nitrogen 58 mg/dL (7-18); Calcium 8.2 mg/dL (8.5-10.1); Carbon Dioxide 38.3 meq/L (21.0-32.0); Chloride 115 meq/L (98-107); Glomerular Filtration Rate 58 mL/min (>89); Glucose,Random 189 mg/dL (74-106); Magnesium 2.6 mg/dL (1.5-2.5); Phosphorus 2.3 mg/dL (2.5-4.9); Total Protein 6.1 g/dL (6.4-8.2)
[2018-06-29 07:54] LABS: Sodium 158 meq/L (136-145)
[2018-06-29] MEDS: Bisacodyl 10 MG Supp RECTAL SCH (08:12)
[2018-06-29] MEDS: Chlorhexidine 0.12% Oral Kit 15 ML UDC OROPHARYNG SCH ×2 (08:12→20:57)
[2018-06-29] MEDS: amLODIPine 10 MG Tablet PO SCH (08:12)
[2018-06-29] MEDS: Senna/Docusate Sodium 8.6/50 MG Tablet PO SCH ×2 (08:12→20:58)
[2018-06-29] MEDS: hydrALAZINE 50 MG Tablet PO SCH ×3 (08:12→18:01)
[2018-06-29] MEDS: Beneprotein Powder Packet G-TUBE SCH ×3 (08:12→18:01)
[2018-06-29] MEDS: Insulin Detemir Inj 1,000 UNIT/10 ML Vial SQ SCH ×2 (08:12→20:57)
[2018-06-29] MEDS: dilTIAZem 30 MG Tablet PO SCH ×4 (08:12→20:57)
[2018-06-29 08:20] LABS: Platelet Morphology Normal (Normal)
[2018-06-29] MEDS: Simethicone 80 MG Chew Tablet PO SCH ×4 (08:30→20:58)
--- NOTE | 2018-06-29 08:40 | P.PNPL ---
Subjective Interval history: No events ovenright. Awake and alert following commands. On CPAP with PS 12, PEEP:5 and FIO2 40%. Afebrile. Physical Exam Vital signs: Vital Signs 06/28/18 09:00 06/28/18 09:30 06/28/18 09:54 Temperature Pulse Rate 92 H 101 H 96 H Respiratory Rate 21 20 22 Blood Pressure 116/56 L 117/58 L 119/60 Pulse Oximetry 98 98 98 06/28/18 10:00 06/28/18 10:31 06/28/18 11:00 Temperature 97.7 F Pulse Rate 108 H 104 H 104 H Respiratory Rate 22 26 H 19 Blood Pressure 115/56 L 115/67 125/80 Pulse Oximetry 98 97 97 06/28/18 11:31 06/28/18 11:47 06/28/18 11:48 Temperature Pulse Rate 105 H 108 H Respiratory Rate 39 H 18 19 Blood Pressure 128/58 L Pulse Oximetry 95 97 06/28/18 12:00 06/28/18 12:30 06/28/18 13:00 Temperature 97.8 F Pulse Rate 106 H 106 H 104 H Respiratory Rate 19 22 19 Blood Pressure 95/63 L 103/63 114/61 Pulse Oximetry 98 98 98 06/28/18 13:30 06/28/18 14:00 06/28/18 14:30 Temperature Pulse Rate 107 H 109 H 109 H Respiratory Rate 18 19 20 Blood Pressure 115/63 129/67 118/68 Pulse Oximetry 98 97 96 06/28/18 14:59 06/28/18 15:00 06/28/18 15:30 Temperature Pulse Rate 107 H 109 H 111 H Respiratory Rate 17 15 15 Blood Pressure 122/65 116/71 Pulse Oximetry 96 96 06/28/18 15:58 06/28/18 16:00 06/28/18 16:30 Temperature 99.0 F Pulse Rate 111 H 111 H Respiratory Rate 15 12 15 Blood Pressure 117/70 132/75 Pulse Oximetry 97 96 97 06/28/18 18:00 06/28/18 20:00 06/28/18 21:38 Temperature 98.0 F Pulse Rate 111 H 119 H Respiratory Rate 19 16 Blood Pressure 94/67 L Pulse Oximetry 97 97 06/28/18 21:41 06/28/18 22:00 06/29/18 00:00 Temperature Pulse Rate 116 H 108 H 106 H Respiratory Rate 20 16 Blood Pressure 96/65 L Pulse Oximetry 98 06/29/18 00:43 06/29/18 02:00 06/29/18 03:57 Temperature Pulse Rate 99 H 104 H 124 H Respiratory Rate 16 18 Blood Pressure Pulse Oximetry 100 06/29/18 03:58 06/29/18 04:00 06/29/18 06:00 Temperature 99.0 F Pulse Rate 110 H 103 H Respiratory Rate 16 16 Blood Pressure 126/73 Pulse Oximetry 99 98 06/29/18 07:36 Temperature Pulse Rate 102 H Respiratory Rate 12 Blood Pressure Pulse Oximetry 100 Intake & Output 06/28/18 06/29/18 06/29/18 18:59 06:59 18:59 Intake Total 1070 / 1070 900 / 900 Output Total 3650 / 3650 1350 / 1350 100 / 100 Balance -2580 / -2580 -450 / -450 -100 / -100 Weight 85 kg Intake: IV 1020 / 1020 900 / 900 KCl Inj 40 MEQ In LR 1000 mL 1020 / 1020 900 / 900 Inj 1,000 ML @ 125 mls/hr IV. CONT .Q8H10M [facility] Rx#:[id number] Oral 0 / 0 Anesthesia Amount 50 / 50 Output: Urine 600 / 600 Stool 0 / 0 Urine/Stool Mix 0 / 0 Urine Amount (Catheter) 2250 / 2250 1350 / 1350 100 / 100 Indwelling Urethral Catheter 2250 / 2250 1350 / 1350 100 / 100 Gastric Drainage 800 / 800 Left Nare Nasogastric Tube 400 / 400 Orogastric Tube 400 / 400 Other: Date of Last Bowel Movement 06/28/18 06/28/18 # Bowel Movements 1 0 # Incontinent Bowel Movements 0 - Constitutional no acute distress - Routine HEENT Exam Head: Present: normocephalic, atraumatic Eye: Present: EOMI, PERRL, normal accommodation, conjunctivae pink ENT: Present: mucous membranes moist - Routine Neck Exam Present: supple, full ROM, trachea midline - Routine Respiratory Exam Present: patient mechanically ventilated, CTA bilaterally - Routine Cardiovascular Exam Present: RRR, S1, S2 - Routine Abdominal Exam Present: soft, normoactive bowel sounds - Routine Extremities Exam Present: full ROM, pulses intact - Routine Skin Exam Present: intact, dry - Routine Neurological Exam Present: alert - Urinary Catheter Management Indwelling Urethral Catheter Cath placed during this visit: yes Reason for continuing: Hourly intake/output Insertion date: 06/27/18 Insertion time: 16:00 Assessment and Plan - Plan 1. VDRF 2. COPD, on 2-3 liters home oxygen. 3. Hypertension. 4. Hyperlipidemia. 5. Leukocytosis, 6. Hypernatremia. 7. ALLYSON 8. Anemia, thrombocytopenia Plan Off sedation, monitor neuro status. Awake and alert Continue with vent support and maintain sats >92%. Bronchodilators,Solu-Medrol 60 mg IV q.8. SBT daily as alonso. CXR today: No obvious infiltrates or effusions. Continue abx cefepime/Azithromycin. Monitor for signs of infection, 06/26 sputum cx: normal resp justyn GI and DVT prophylaxis. Continue treatment plan
[2018-06-29 09:41] LABS: ABG Base Excess 9.5 mmol/L (-2-2); ABG PCO2 51 mmHg (38-42); ABG PO2 114 mmHG (61-120)
[2018-06-29] MEDS: Enoxaparin Inj 40 MG/0.4 ML Syringe SQ SCH (10:48)
--- NOTE | 2018-06-29 11:06 | P.DIET ---
Nutritional Evaluation Type of nutrition evaluation: initial Nutrition consult regarding: Tube Feeding Objective - Diagnosis SOB, COPD Exacerbation - Objective % IBW: 126 Body Weight Used for Calculations: IBW (67.3kg(148 lb)) Energy Needs - Lower Range (kCal/kg): 23 Energy Needs - Upper Range (kCal/kg): 28 Lower Limit kCal/kg (kCals): 1,548 Upper Limit kCal/kg (kCals): 1,884 Lower Limit Protein Factor (Grams per Kg): 1.2 Upper Limit Protein Factor (Grams per Kg): 1.4 Lower Protein Needs (Protein): 81 Upper Protein Needs (Protein): 94 Dietitian Reviewed in Medical Record: Curent medications, Intake & Output, Labs , Medical history, Tube feeding Diet Order: TF'ing Glucerna 1.5 @ goal rate 45ml/hr Objective Comments: PMH includes: COPD, HTN, hyperlipidemia, anxiety Labs include: Na 158, BUN 58, Creatinine 1.44, estGFR 58, Glucose 189, POC Glucose 178; Free Water Flushes 100ml Q 6hr Meds include: Norvasc, Pepcid, Levemir, Novolin R, Lopressor, Zofran, Beneprotein TID LBM 06/28 Assessment Assessment: Pt is at nutritional risk r/t need for TF'ing. TF'ing w/Glucerna 1.5 @ goal rate 45ml/hr will [id number] kcal, 89g protein and 820ml free water, providing for pt's assessed needs. Rec to Discontinue the Beneprotein. Free Water Flushes per MD, as ordered. Wt noted. Labs/electrolytes reviewed-monitor glucose and renal labs. Additional Rec r/t Clinical Course. Recommendations: 1. TF'ing w/Glucerna 1.5 @ goal rate 45ml/hr provides for pt's assessed needs 2. Rec to Discontinue the Beneprotein 3. Free Water Flushes per MD, as ordered 4. Additional Rec r/t Clinical Course Dietitian to Monitor: Lab values, Electrolytes, Renal labs, Glucose level, Intake & Output, Tube feeding tolerance, Weight change, Medical course
--- NOTE | 2018-06-29 11:40 | P.PNCC ---
Subjective Subjective Remarks/Hospital Course: Mr. Curry is a 73-year-old -[place] male with past medical history significant for COPD on 3 L nasal cannula, hypertension, hyperlipidemia and anxiety who was admitted to the hospitalist service on 06/19/2018 for worsening shortness of breath due to COPD exacerbation. He was treated with IV Solu- Medrol, IV antibiotics, breathing treatments gradually improved. Patient was also complaining about dyspepsia and underwent EGD by GI yesterday. Per report the EGD was normal but patient developed worsening shortness of breath and COPD exacerbation postprocedure, possibly from aspiration after sedated. Two ABGs done yesterday showed hypercapnic respiratory failure second 1 was on BiPAP and this was improved with pH 7.3 with PCO2 of 74. Patient remained on BiPAP overnight however was noticed to be lethargic today a.m., stat ABG showed pH of 7.21 PCO2 110 PO2 88 while on BiPAP. Patient was lethargic intermittently dozing off due to CO2 narcosis. Critical care medicine was consulted and I immediately evaluated the patient. Patient had obviously failed BiPAP I proceeded with endotracheal intubation placed on mechanical ventilation. Postintubation I have ordered single dose of Solu-Medrol 125 mg x1 continue Solu -Medrol 60 every 8, discontinue ceftriaxone and start cefepime 2 g IV every 8 hours continue azithromycin. Add budesonide inhaled, placed on scheduled DuoNeb every 4 hours and as needed. SUBJ 06/27: Patient was intubated yesterday for severe hypercapnic respiratory failure. Currently remains intubated sedated and intubated remains diminished bilaterally. Heavily sedated for ventilator synchrony 06/28: Urine output significantly improved with fluid resuscitation. Creat down trending now 2 from 2.3, UO >3.3 L. Remains intubated sedated. Will initiate daily sedation vacation and CPAP trials 06/29: More awake today tolerating CPAP trials intermittently follows commands but gets agitated/frustrated fast. Urine output remains excellent creatinine 1.4. However sodium increasing 158 today. Night tavern keeper had changed fluid to D5 W for free water replacement. Due to hypoglycemia will change to quarter normal saline at 150 mL/h repeat CMP in the afternoon Objective Vital Signs / I&O: Vital Signs 06/28/18 11:47 06/28/18 11:48 06/28/18 12:00 Temperature 97.8 F Pulse Rate 108 H 106 H Respiratory Rate 18 19 19 Blood Pressure 95/63 L Pulse Oximetry 97 98 06/28/18 12:30 06/28/18 13:00 06/28/18 13:30 Temperature Pulse Rate 106 H 104 H 107 H Respiratory Rate 22 19 18 Blood Pressure 103/63 114/61 115/63 Pulse Oximetry 98 98 98 06/28/18 14:00 06/28/18 14:30 06/28/18 14:59 Temperature Pulse Rate 109 H 109 H 107 H Respiratory Rate 19 20 17 Blood Pressure 129/67 118/68 Pulse Oximetry 97 96 06/28/18 15:00 06/28/18 15:30 06/28/18 15:58 Temperature Pulse Rate 109 H 111 H Respiratory Rate 15 15 15 Blood Pressure 122/65 116/71 Pulse Oximetry 96 96 97 06/28/18 16:00 06/28/18 16:30 06/28/18 18:00 Temperature 99.0 F Pulse Rate 111 H 111 H 111 H Respiratory Rate 12 15 Blood Pressure 117/70 132/75 Pulse Oximetry 96 97 06/28/18 20:00 06/28/18 21:38 06/28/18 21:41 Temperature 98.0 F Pulse Rate 119 H 116 H Respiratory Rate 19 16 20 Blood Pressure 94/67 L Pulse Oximetry 97 97 06/28/18 22:00 06/29/18 00:00 06/29/18 00:43 Temperature Pulse Rate 108 H 106 H 99 H Respiratory Rate 16 16 Blood Pressure 96/65 L Pulse Oximetry 98 100 06/29/18 02:00 06/29/18 03:57 06/29/18 03:58 Temperature Pulse Rate 104 H 124 H Respiratory Rate 18 16 Blood Pressure Pulse Oximetry 99 06/29/18 04:00 06/29/18 06:00 06/29/18 07:36 Temperature 99.0 F Pulse Rate 110 H 103 H 102 H Respiratory Rate 16 12 Blood Pressure 126/73 Pulse Oximetry 98 100 06/29/18 10:33 06/29/18 11:00 Temperature Pulse Rate 108 H Respiratory Rate 16 Blood Pressure Pulse Oximetry 91 L Intake & Output 06/28/18 06/29/18 06/29/18 18:59 06:59 18:59 Intake Total 1070 / 1070 900 / 900 100 / 100 Output Total 3650 / 3650 1350 / 1350 100 / 100 Balance -2580 / -2580 -450 / -450 0 / 0 Weight 85 kg Intake: IV 1020 / 1020 900 / 900 100 / 100 KCl Inj 40 MEQ In LR 1000 mL 1020 / 1020 900 / 900 Inj 1,000 ML @ 125 mls/hr IV. CONT .Q8H10M [facility] Rx#:[id number] Maxipime Inj 2,000 MG In NS Inj 100 / 100 100 ML @ 200 mls/hr IV.SIG Q12H [facility] Rx#:[id number] Oral 0 / 0 Anesthesia Amount 50 / 50 Output: Urine 600 / 600 Stool 0 / 0 Urine/Stool Mix 0 / 0 Urine Amount (Catheter) 2250 / 2250 1350 / 1350 100 / 100 Indwelling Urethral Catheter 2250 / 2250 1350 / 1350 100 / 100 Gastric Drainage 800 / 800 Left Nare Nasogastric Tube 400 / 400 Orogastric Tube 400 / 400 Other: Date of Last Bowel Movement 06/28/18 06/28/18 06/28/18 # Bowel Movements 1 0 # Incontinent Bowel Movements 0 Result Diagrams: 06/29/18 05:50 06/29/18 05:50 Objective Remarks: General appearance: 73-year-old -[place] male, intubated off all sedation Cardiovascular: S1-S2 normal, no murmurs Respiratory: On CPAP diminished breath sounds bilaterally, no wheezing Abdomen: Firm, distended, normal bowel sounds. Extremities 1+ pitting edema bilateral lower extremities. Neuro: Intubated off sedation. More awake alert following some commands becomes frustrated due to ET tube Assessment and Plan - Assessment and Plan Plan: ASSESSMENT: Acute hypercapnic respiratory failure Acute COPD exacerbation Altered mental status due to CO2 narcosis Acute kidney injury/failure Hypokalemia/hypophosphatemia Hypernatremia Leukocytosis Hyperglycemia COPD PLAN: NEURO: -Hold all sedation for possible extubation -Mental status significantly improved with correction of CO2 narcosis RESP: -PRVC/AC, Ventilator bundle -DuoNeb every 4 hours scheduled and as needed -IV Solu-Medrol 40 mg every 8 hours -Inhaled budesonide -Continue cefepime continue azithromycin -SBT with possible extubation CV: - LR discontinued, start on quarter normal saline due to persistent hyponatremia GI: -Tube feeds with Jevity on hold for possible extubation -Free water replacement -IV famotidine : -Monitor renal function closely. Continue Moreno for hourly intake output ID: -Antibiotics with cefepime and azithromycin. Discontinue azithromycin today -Sputum cultures-neg to date HEME: -Monitor CBC, coags ENDO: -Electrolyte replacement per protocol -Sliding scale insulin medium scale, Levemir 10 q12 PROPH: -Bilateral lower extremity SCDs. Lovenox/PPI LINES: -Utilize peripheral IVs, central line if needed Level 3 Patient remains critically ill from severe COPD exacerbation and hypercapnic respiratory failure, now improving. Weaning trial for possible extubation
[2018-06-29] MEDS: Sodium Chloride 23.4% Inj 38.5 MEQ in Water for Inj, Sterile 1,000 ML IV.CONT SCH ×2 (12:00→18:45)
[2018-06-29 15:08] LABS: Alanine Aminotransferase 43 U/L (12-78); Albumin 3.2 g/dL (3.4-5.0); Alkaline Phosphatase 60 U/L (45-117); Anion Gap 3 meq/L (5-15); Aspartate Aminotransferase 21 U/L (15-37); Blood Urea Nitrogen 58 mg/dL (7-18); Calcium 8.5 mg/dL (8.5-10.1); Carbon Dioxide 38.9 meq/L (21.0-32.0); Chloride 116 meq/L (98-107); Glomerular Filtration Rate 69 mL/min (>89); Glucose,Random 129 mg/dL (74-106); Potassium 3.8 meq/L (3.5-5.1); Total Protein 6.7 g/dL (6.4-8.2)
[2018-06-29 15:27] LABS: Sodium 158 meq/L (136-145)
[2018-06-29] MEDS: Azithromycin Inj 250 MG in Sodium Chlor 0.9% Inj 250 ML IV.SIG SCH (15:57)
[2018-06-30] MEDS: Sodium Chloride 23.4% Inj 38.5 MEQ in Water for Inj, Sterile 1,000 ML IV.CONT SCH (01:41)
[2018-06-30] MEDS: Famotidine PF Inj 20 MG/2 ML Vial IV.PUSH SCH ×2 (05:41→19:21)
[2018-06-30] MEDS: Oral Hygiene Kit OROPHARYNG SCH ×4 (05:42→23:48)
[2018-06-30] MEDS: Insulin NovoLIN Regular Correctional Sugar Inj SQ SCH ×6 (05:42→23:48)
[2018-06-30 07:09] LABS: Baso % (Auto) 0.1 % (0.0-2.0); Hematocrit 35.2 % (39.0-51.0); Hemoglobin 11.4 gm/dL (13.0-17.0); Lymph # (Auto) 0.2 th/mm3 (1.0-4.8); Lymph % (Auto) 1.5 % (9.0-44.0); Mean Corpuscular HGB Conc 32.3 % (32.0-36.0); Mean Corpuscular Hemoglobin 29.7 pg (27.0-34.0); Mean Corpuscular Volume 91.8 fL (80.0-100.0); Mean Platelet Volume 11.2 fL (7.0-11.0); Mono # (Auto) 0.5 th/mm3 (0.0-0.9); Mono % (Auto) 3.3 % (0.0-8.0); Neut % (Auto) 95.1 % (16.0-70.0); Platelet Count 80 th/mm3 (150-450); Red Blood Count 3.83 mil/mm3 (4.50-5.90); Red Cell Distribution Width 14.4 % (11.6-17.2); White Blood Count 14.7 th/mm3 (4.0-11.0)
[2018-06-30 07:32] LABS: Alanine Aminotransferase 43 U/L (12-78); Anion Gap 8 meq/L (5-15); Aspartate Aminotransferase 25 U/L (15-37); Blood Urea Nitrogen 49 mg/dL (7-18); Calcium 7.9 mg/dL (8.5-10.1); Carbon Dioxide 34.4 meq/L (21.0-32.0); Chloride 110 meq/L (98-107); Glomerular Filtration Rate 78 mL/min (>89); Glucose,Random 140 mg/dL (74-106); Magnesium 2.5 mg/dL (1.5-2.5); Phosphorus 3.2 mg/dL (2.5-4.9); Potassium 4.2 meq/L (3.5-5.1); Sodium 152 meq/L (136-145)
[2018-06-30 07:34] LABS: Alkaline Phosphatase 58 U/L (45-117); Total Protein 6.2 g/dL (6.4-8.2)
--- NOTE | 2018-06-30 08:26 | P.PNCC ---
Subjective Subjective Remarks/Hospital Course: Mr. Curry is a 73-year-old -[place] male with past medical history significant for COPD on 3 L nasal cannula, hypertension, hyperlipidemia and anxiety who was admitted to the hospitalist service on 06/19/2018 for worsening shortness of breath due to COPD exacerbation. He was treated with IV Solu- Medrol, IV antibiotics, breathing treatments gradually improved. Patient was also complaining about dyspepsia and underwent EGD by GI yesterday. Per report the EGD was normal but patient developed worsening shortness of breath and COPD exacerbation postprocedure, possibly from aspiration after sedated. Two ABGs done yesterday showed hypercapnic respiratory failure second 1 was on BiPAP and this was improved with pH 7.3 with PCO2 of 74. Patient remained on BiPAP overnight however was noticed to be lethargic today a.m., stat ABG showed pH of 7.21 PCO2 110 PO2 88 while on BiPAP. Patient was lethargic intermittently dozing off due to CO2 narcosis. Critical care medicine was consulted and I immediately evaluated the patient. Patient had obviously failed BiPAP I proceeded with endotracheal intubation placed on mechanical ventilation. Postintubation I have ordered single dose of Solu-Medrol 125 mg x1 continue Solu -Medrol 60 every 8, discontinue ceftriaxone and start cefepime 2 g IV every 8 hours continue azithromycin. Add budesonide inhaled, placed on scheduled DuoNeb every 4 hours and as needed. SUBJ 06/27: Patient was intubated yesterday for severe hypercapnic respiratory failure. Currently remains intubated sedated and intubated remains diminished bilaterally. Heavily sedated for ventilator synchrony 06/28: Urine output significantly improved with fluid resuscitation. Creat down trending now 2 from 2.3, UO >3.3 L. Remains intubated sedated. Will initiate daily sedation vacation and CPAP trials 06/29: More awake today tolerating CPAP trials intermittently follows commands but gets agitated/frustrated fast. Urine output remains excellent creatinine 1.4. However sodium increasing 158 today. Night solid state tester had changed fluid to D5 W for free water replacement. Due to hypoglycemia will change to quarter normal saline at 150 mL/h repeat CMP in the afternoon 06/30 Patient was extubated yesterday. Awake Objective Vital Signs / I&O: Vital Signs 06/29/18 10:00 06/29/18 10:33 06/29/18 11:00 Temperature Pulse Rate 120 H 108 H Respiratory Rate 16 Blood Pressure Pulse Oximetry 91 L 06/29/18 12:00 06/29/18 14:00 06/29/18 15:50 Temperature 98.3 F Pulse Rate 110 H 110 H 115 H Respiratory Rate 21 18 Blood Pressure 114/66 Pulse Oximetry 98 06/29/18 16:00 06/29/18 18:00 06/29/18 20:00 Temperature 98.1 F 98.4 F Pulse Rate 123 H 114 H 123 H Respiratory Rate 27 H 26 H Blood Pressure 169/78 H 155/76 H Pulse Oximetry 97 93 L 06/29/18 21:22 06/29/18 22:00 06/30/18 00:00 Temperature 98.4 F Pulse Rate 117 H 126 H 122 H Respiratory Rate 22 23 Blood Pressure 144/79 H Pulse Oximetry 94 L 93 L 06/30/18 02:00 06/30/18 04:00 06/30/18 04:05 Temperature 98.4 F Pulse Rate 121 H 120 H 115 H Respiratory Rate 28 H 26 H Blood Pressure 166/109 H Pulse Oximetry 92 L 06/30/18 06:00 Temperature Pulse Rate 108 H Respiratory Rate Blood Pressure Pulse Oximetry Intake & Output 06/29/18 06/30/18 06/30/18 18:59 06:59 18:59 Intake Total 2761.625 / 2761.625 1809.625 / 1809.625 Output Total 100 / 100 3170 / 3170 Balance 2661.625 / 2661.625 -1360.375 / -1360.375 Weight 89 kg Intake: IV 2761.625 / 2761.625 1109.625 / 1109.625 Precedex Inj 200 MCG In NS Inj 52 / 52 48 ML @ 0.2 MCG/KG/HR 4.47 mls/ hr IV.CONT TITRATE PRN Rx#: [id number] D5W Inj 1,000 ML @ 150 mls/hr 1000 / 1000 IV.CONT .Q6H40M [facility] Rx#: [id number] Diprivan 1000 mg/100 ml Inj 1, 0 / 0 000 mg In 100 ml @ 5 MCG/KG/MIN 2.67 mls/hr IV.CONT TITRATE PRN Rx#:[id number] Sodium Chloride 23.4% Inj 38.5 1009.625 / 2413.294 1366.625 / 1009.625 MEQ In Sterile Water for Inj 1, 000 ML @ 150 mls/hr IV.CONT . Q6H44M [facility] Rx#:[id number] Azithromycin Inj 250 MG In NS 500 / 500 Inj 250 ML @ 250 mls/hr IV.SIG Q24H [facility] Rx#:[id number] Maxipime Inj 2,000 MG In NS Inj 200 / 200 100 / 100 100 ML @ 200 mls/hr IV.SIG Q12H [facility] Rx#:[id number] Oral 700 / 700 Output: Stool 0 / 0 0 / 0 Urine/Stool Mix 0 / 0 0 / 0 Urine Amount (Catheter) 100 / 100 3170 / 3170 Indwelling Urethral Catheter 100 / 100 3170 / 3170 Other: Date of Last Bowel Movement 06/28/18 06/28/18 # Bowel Movements 0 0 # Incontinent Bowel Movements 0 0 Result Diagrams: 06/30/18 04:30 06/30/18 04:30 Other Results: Laboratory Results - last 12 hr 06/29/18 06/30/18 06/30/18 23:24 04:30 04:30 WBC 14.7 H RBC 3.83 L Hgb 11.4 L Hct 35.2 L MCV 91.8 MCH 29.7 MCHC 32.3 RDW 14.4 Plt Count 80 L MPV 11.2 H Prelim Diff (Auto) Slide review pending Neut % (Auto) 95.1 H Lymph % (Auto) 1.5 L [place] % (Auto) 3.3 Eos % (Auto) 0.0 Baso % (Auto) 0.1 Neut # (Auto) 14.0 H Lymph # (Auto) 0.2 L [place] # (Auto) 0.5 Eos # (Auto) 0.0 Baso # (Auto) 0.0 WBC Differential . Diff Scan Auto diff confirmed Differential Comment . Platelet Estimate Low L Platelet Morphology Enlarged H Sodium 152 H Potassium 4.2 Chloride 110 H Carbon Dioxide 34.4 H Anion Gap 8 BUN 49 H Creatinine 1.12 Estimated GFR 78 L POC Glucose 171 H Random Glucose 140 H Calcium 7.9 L Phosphorus 3.2 Magnesium 2.5 Total Bilirubin 1.0 AST 25 ALT 43 Alkaline Phosphatase 58 Total Protein 6.2 L Albumin 3.0 L 06/30/18 06/30/18 04:54 08:13 WBC RBC Hgb Hct MCV MCH MCHC RDW Plt Count MPV Prelim Diff (Auto) Neut % (Auto) Lymph % (Auto) [place] % (Auto) Eos % (Auto) Baso % (Auto) Neut # (Auto) Lymph # (Auto) [place] # (Auto) Eos # (Auto) Baso # (Auto) WBC Differential Diff Scan Differential Comment Platelet Estimate Platelet Morphology Sodium Potassium Chloride Carbon Dioxide Anion Gap BUN Creatinine Estimated GFR POC Glucose 137 H 146 H Random Glucose Calcium Phosphorus Magnesium Total Bilirubin AST ALT Alkaline Phosphatase Total Protein Albumin Imaging: Abdomen Ultrasound 06/21/18 00:00 CONCLUSION: 1. No ascites is identified within the abdomen. Abdomen/Pelvis CT 06/24/18 00:00 CONCLUSION: 1. Benign appearing right adrenal mass. 2. No acute CT findings in the abdomen or pelvis. Abdomen X-Ray 06/26/18 09:21 CONCLUSION: 1. Nonobstructive bowel gas pattern without pneumoperitoneum. 2. Nasogastric tube is curled in the expected location of the gastric body. I believe the portions of the tube identified over the heart shadow is probably projectional as there is no evidence of a significant hiatal hernia on the most recent CT of the abdomen. Abdomen/Bladder Ultrasound 06/28/18 00:00 CONCLUSION: 1. Echogenic kidneys characteristic of medical renal disease. No hydronephrosis. Bladder decompressed by Moreno Chest X-Ray 06/29/18 06:00 CONCLUSION: The lungs are clear. Lines and tubes stable. Objective Remarks: GENERAL: Patient is 73 yo lying in bed in NAD SKIN: Warm and dry. HEAD: Normocephalic. EYES: No scleral icterus. No injection or drainage. NECK: Supple, trachea midline. No JVD or lymphadenopathy. CARDIOVASCULAR: Regular rate and rhythm without murmurs, gallops, or rubs. RESPIRATORY: Breath sounds equal bilaterally. No accessory muscle use. GASTROINTESTINAL: Abdomen soft, non-tender, nondistended. MUSCULOSKELETAL: No cyanosis, or edema. Neuro: Awake and alert. Assessment and Plan - Assessment and Plan Plan: ASSESSMENT: Acute hypercapnic respiratory failure Acute COPD exacerbation Altered mental status due to CO2 narcosis Acute kidney injury/failure Hypertension Hypernatremia Leukocytosis Hyperglycemia COPD PLAN: NEURO: -Awake and alert, avoid sedatives RESP: -Continue with oxugen keep sats >92% -Extubated 10/28 -DuoNeb every 4 hours scheduled and as needed -IV Solu-Medrol 40 mg every 8 hours -Inhaled budesonide -Continue cefepime continue azithromycin -BIPAP PRN fo resp distress, pulm is following CV: - Monitor HR and BP keep MAP>65mmHg -Continue with BP meds, increase Cardizem 60mg Q6, On Norvasc 10mg daily, Hydralazine 50mg TID GI: -Speech eval, diet per speech -IV famotidine : -Monitor renal function, I/O's, electrolytes replacement per protocol. -D/c IVF ID: -Antibiotics with cefepime. Monitor for signs of infections ( Fever, WBC) -Sputum cultures-neg to date HEME: -Monitor CBC, coags, check Hep PLT ab r/o HIT ENDO: -Electrolyte replacement per protocol -Sliding scale insulin medium scale, Levemir 10 q12 PROPH: -Bilateral lower extremity SCDs. PPI, hold Lovenox for worsening thrombocytopenia, PLT<100 LINES: -Utilize peripheral IVs, Level 3
[2018-06-30] MEDS: Insulin Detemir Inj 1,000 UNIT/10 ML Vial SQ SCH ×2 (09:00→21:33)
[2018-06-30] MEDS: MethylPREDNISolone Sod Succinate Inj 40 MG/ML Vial IV.PUSH SCH ×3 (09:00→23:48)
[2018-06-30] MEDS: Chlorhexidine 0.12% Oral Kit 15 ML UDC OROPHARYNG SCH ×2 (09:39→21:22)
[2018-06-30] MEDS: Beneprotein Powder Packet G-TUBE SCH ×3 (09:41→18:14)
[2018-06-30] MEDS: hydrALAZINE 50 MG Tablet PO SCH ×3 (10:30→21:22)
[2018-06-30] MEDS: amLODIPine 10 MG Tablet PO SCH (10:30)
[2018-06-30] MEDS: dilTIAZem 60 MG Tablet PO SCH ×4 (10:30→21:33)
[2018-06-30] MEDS: Bisacodyl 10 MG Supp RECTAL SCH (10:39)
[2018-06-30] MEDS: Simethicone 80 MG Chew Tablet PO SCH ×4 (10:39→21:34)
[2018-06-30] MEDS: Metoprolol Inj 5 MG/5 ML Vial IV.PUSH PRN (11:36)
[2018-06-30] MEDS: Senna/Docusate Sodium 8.6/50 MG Tablet PO SCH ×2 (12:23→21:23)
[2018-06-30 14:09] LABS: ABG PCO2 43 mmHg (38-42); ABG PO2 73 mmHG (61-120)
[2018-06-30] MEDS: Azithromycin Inj 250 MG in Sodium Chlor 0.9% Inj 250 ML IV.SIG SCH (14:17)
--- NOTE | 2018-06-30 19:41 | P.PNPL ---
Subjective Interval history: 73 YOAA male with COPD, [address] [facility] Admitted with AMS, COPD exac Extubated On NC Refuses meds and treatments Physical Exam Vital signs: Vital Signs 06/29/18 20:00 06/29/18 21:22 06/29/18 22:00 Temperature 98.4 F Pulse Rate 123 H 117 H 126 H Respiratory Rate 26 H 22 Blood Pressure 155/76 H Pulse Oximetry 93 L 94 L 06/30/18 00:00 06/30/18 02:00 06/30/18 04:00 Temperature 98.4 F 98.4 F Pulse Rate 122 H 121 H 120 H Respiratory Rate 23 28 H Blood Pressure 144/79 H 166/109 H Pulse Oximetry 93 L 92 L 06/30/18 04:05 06/30/18 06:00 06/30/18 08:00 Temperature 97.8 F Pulse Rate 115 H 108 H 118 H Respiratory Rate 26 H 30 H Blood Pressure 164/88 H Pulse Oximetry 96 06/30/18 08:36 06/30/18 10:00 06/30/18 11:00 Temperature Pulse Rate 111 H 111 H 119 H Respiratory Rate 18 30 H Blood Pressure 158/83 H Pulse Oximetry 96 96 06/30/18 11:30 06/30/18 11:42 06/30/18 12:00 Temperature 97.9 F Pulse Rate 122 H 116 H 114 H Respiratory Rate 39 H 24 31 H Blood Pressure 153/76 H 140/76 Pulse Oximetry 96 95 06/30/18 12:30 06/30/18 13:00 06/30/18 13:30 Temperature Pulse Rate 118 H 123 H 117 H Respiratory Rate 36 H 36 H 38 H Blood Pressure 156/80 H 167/80 H 143/75 H Pulse Oximetry 94 L 92 L 95 06/30/18 14:00 06/30/18 14:30 06/30/18 15:00 Temperature Pulse Rate 117 H 117 H 118 H Respiratory Rate 32 H 29 H 35 H Blood Pressure 139/80 145/75 H 148/70 H Pulse Oximetry 93 L 94 L 95 06/30/18 15:30 06/30/18 16:00 06/30/18 16:01 Temperature Pulse Rate 114 H 112 H 112 H Respiratory Rate 41 H 27 H 18 Blood Pressure 131/69 135/71 Pulse Oximetry 94 L 94 L 06/30/18 16:30 06/30/18 17:00 06/30/18 17:30 Temperature Pulse Rate 116 H 115 H 107 H Respiratory Rate 22 27 H 27 H Blood Pressure 136/70 149/72 H 143/73 H Pulse Oximetry 95 95 95 06/30/18 18:00 06/30/18 18:30 Temperature Pulse Rate 104 H 104 H Respiratory Rate 25 H 25 H Blood Pressure 139/73 154/72 H Pulse Oximetry 94 L 95 Intake & Output 06/30/18 06/30/18 07/01/18 06:59 18:59 06:59 Intake Total 1809.625 / 1809.625 100 / 100 Output Total 317 / 3170 2149 / 2149 Balance -1360.375 / -1360.375 -2049 / -2049 Weight 89 kg Intake: IV 1109.625 / 1109.625 100 / 100 Sodium Chloride 23.4% Inj 38.5 1009.625 / 1009.625 MEQ In Sterile Water for Inj 1, 000 ML @ 150 mls/hr IV.CONT . Q6H44M [facility] Rx#:[id number] Maxipime Inj 2,000 MG In NS Inj 100 / 100 100 / 100 100 ML @ 200 mls/hr IV.SIG Q12H [facility] Rx#:[id number] Oral 700 / 700 Output: Stool 0 / 0 Urine/Stool Mix 0 / 0 Urine Amount (Catheter) 3169 / 2149 Indwelling Urethral Catheter 3169 Other: Date of Last Bowel Movement 06/28/18 # Bowel Movements 0 # Incontinent Bowel Movements 0 GENERAL: WBWN AA male, mild sob SKIN: Warm and dry. HEAD: Normocephalic. EYES: No scleral icterus. No injection or drainage. NECK: Supple, trachea midline. No JVD or lymphadenopathy. CARDIOVASCULAR: Regular rate and rhythm without murmurs, gallops, or rubs. RESPIRATORY: Breath sounds equal bilaterally. No accessory muscle use. Exp rhonchi GASTROINTESTINAL: Abdomen soft, non-tender, distended., non tender, tympanic MUSCULOSKELETAL: No cyanosis, or edema. BACK: Nontender without obvious deformity. No CVA tenderness. - Urinary Catheter Management Indwelling Urethral Catheter Cath placed during this visit: yes Reason for continuing: Hourly intake/output Insertion date: 06/27/18 Insertion time: 16:00 Assessment and Plan - Plan IMPRESSION: Hypercapnoic RF, s/p exac COPD exac AMS improved HTN PLAN: Aerosol nebs Cont Abx Supplement 02 Monitor BS SQ lovenox
[2018-07-01] MEDS: Metoprolol Inj 5 MG/5 ML Vial IV.PUSH PRN (01:26)
[2018-07-01] MEDS: Oral Hygiene Kit OROPHARYNG SCH ×4 (03:04→23:14)
[2018-07-01] MEDS: Insulin NovoLIN Regular Correctional Sugar Inj SQ SCH ×6 (03:04→23:14)
[2018-07-01 03:39] LABS: Baso % (Auto) 0.1 % (0.0-2.0); Hematocrit 37.7 % (39.0-51.0); Hemoglobin 12.5 gm/dL (13.0-17.0); Lymph # (Auto) 0.3 th/mm3 (1.0-4.8); Lymph % (Auto) 1.2 % (9.0-44.0); Mean Corpuscular HGB Conc 33.1 % (32.0-36.0); Mean Corpuscular Hemoglobin 29.6 pg (27.0-34.0); Mean Corpuscular Volume 89.3 fL (80.0-100.0); Mean Platelet Volume 10.2 fL (7.0-11.0); Mono # (Auto) 0.7 th/mm3 (0.0-0.9); Mono % (Auto) 3.4 % (0.0-8.0); Neut # (Auto) 20.5 th/mm3 (1.8-7.7); Neut % (Auto) 95.3 % (16.0-70.0); Platelet Count 88 th/mm3 (150-450); Red Blood Count 4.23 mil/mm3 (4.50-5.90); Red Cell Distribution Width 13.8 % (11.6-17.2); White Blood Count 21.5 th/mm3 (4.0-11.0)
[2018-07-01 03:56] LABS: Alanine Aminotransferase 53 U/L (12-78); Albumin 3.3 g/dL (3.4-5.0); Anion Gap 3 meq/L (5-15); Aspartate Aminotransferase 26 U/L (15-37); Blood Urea Nitrogen 44 mg/dL (7-18); Calcium 8.1 mg/dL (8.5-10.1); Carbon Dioxide 36.6 meq/L (21.0-32.0); Chloride 112 meq/L (98-107); Glomerular Filtration Rate 88 mL/min (>89); Glucose,Random 184 mg/dL (74-106); Magnesium 2.3 mg/dL (1.5-2.5); Phosphorus 3.6 mg/dL (2.5-4.9); Potassium 4.3 meq/L (3.5-5.1); Sodium 152 meq/L (136-145)
[2018-07-01 03:58] LABS: Alkaline Phosphatase 61 U/L (45-117); Total Protein 6.6 g/dL (6.4-8.2)
[2018-07-01] MEDS: Famotidine PF Inj 20 MG/2 ML Vial IV.PUSH SCH ×2 (05:32→18:08)
--- NOTE | 2018-07-01 08:29 | P.PNCC ---
Subjective Subjective Remarks/Hospital Course: Mr. Curry is a 73-year-old -[place] male with past medical history significant for COPD on 3 L nasal cannula, hypertension, hyperlipidemia and anxiety who was admitted to the hospitalist service on 06/19/2018 for worsening shortness of breath due to COPD exacerbation. He was treated with IV Solu- Medrol, IV antibiotics, breathing treatments gradually improved. Patient was also complaining about dyspepsia and underwent EGD by GI yesterday. Per report the EGD was normal but patient developed worsening shortness of breath and COPD exacerbation postprocedure, possibly from aspiration after sedated. Two ABGs done yesterday showed hypercapnic respiratory failure second 1 was on BiPAP and this was improved with pH 7.3 with PCO2 of 74. Patient remained on BiPAP overnight however was noticed to be lethargic today a.m., stat ABG showed pH of 7.21 PCO2 110 PO2 88 while on BiPAP. Patient was lethargic intermittently dozing off due to CO2 narcosis. Critical care medicine was consulted and I immediately evaluated the patient. Patient had obviously failed BiPAP I proceeded with endotracheal intubation placed on mechanical ventilation. Postintubation I have ordered single dose of Solu-Medrol 125 mg x1 continue Solu -Medrol 60 every 8, discontinue ceftriaxone and start cefepime 2 g IV every 8 hours continue azithromycin. Add budesonide inhaled, placed on scheduled DuoNeb every 4 hours and as needed. SUBJ 06/27: Patient was intubated yesterday for severe hypercapnic respiratory failure. Currently remains intubated sedated and intubated remains diminished bilaterally. Heavily sedated for ventilator synchrony 06/28: Urine output significantly improved with fluid resuscitation. Creat down trending now 2 from 2.3, UO >3.3 L. Remains intubated sedated. Will initiate daily sedation vacation and CPAP trials 06/29: More awake today tolerating CPAP trials intermittently follows commands but gets agitated/frustrated fast. Urine output remains excellent creatinine 1.4. However sodium increasing 158 today. Night stator plate washer had changed fluid to D5 W for free water replacement. Due to hypoglycemia will change to quarter normal saline at 150 mL/h repeat CMP in the afternoon 06/30 Patient was extubated yesterday. Awake 07/01 Patient is lying in bed in NAD. T: 100.5 Objective Vital Signs / I&O: Vital Signs 06/30/18 08:36 06/30/18 10:00 06/30/18 11:00 Temperature Pulse Rate 111 H 111 H 119 H Respiratory Rate 18 30 H Blood Pressure 158/83 H Pulse Oximetry 96 96 06/30/18 11:30 06/30/18 11:42 06/30/18 12:00 Temperature 97.9 F Pulse Rate 122 H 116 H 114 H Respiratory Rate 39 H 24 31 H Blood Pressure 153/76 H 140/76 Pulse Oximetry 96 95 06/30/18 12:30 06/30/18 13:00 06/30/18 13:30 Temperature Pulse Rate 118 H 123 H 117 H Respiratory Rate 36 H 36 H 38 H Blood Pressure 156/80 H 167/80 H 143/75 H Pulse Oximetry 94 L 92 L 95 06/30/18 14:00 06/30/18 14:30 06/30/18 15:00 Temperature Pulse Rate 117 H 117 H 118 H Respiratory Rate 32 H 29 H 35 H Blood Pressure 139/80 145/75 H 148/70 H Pulse Oximetry 93 L 94 L 95 06/30/18 15:30 06/30/18 16:00 06/30/18 16:01 Temperature Pulse Rate 114 H 112 H 112 H Respiratory Rate 41 H 27 H 18 Blood Pressure 131/69 135/71 Pulse Oximetry 94 L 94 L 06/30/18 16:30 06/30/18 17:00 06/30/18 17:30 Temperature Pulse Rate 116 H 115 H 107 H Respiratory Rate 22 27 H 27 H Blood Pressure 136/70 149/72 H 143/73 H Pulse Oximetry 95 95 95 06/30/18 18:00 06/30/18 18:30 06/30/18 19:00 Temperature Pulse Rate 104 H 104 H 108 H Respiratory Rate 25 H 25 H 29 H Blood Pressure 139/73 154/72 H 155/80 H Pulse Oximetry 94 L 95 95 06/30/18 19:30 06/30/18 20:00 06/30/18 20:30 Temperature 98.2 F Pulse Rate 105 H 110 H 92 H Respiratory Rate 24 30 H 25 H Blood Pressure 170/81 H 148/76 H 167/76 H Pulse Oximetry 96 95 95 06/30/18 21:00 06/30/18 21:30 06/30/18 22:00 Temperature Pulse Rate 105 H 106 H 107 H Respiratory Rate 26 H 31 H 33 H Blood Pressure 137/82 144/83 H 149/85 H Pulse Oximetry 94 L 93 L 96 06/30/18 22:09 06/30/18 22:30 06/30/18 23:00 Temperature Pulse Rate 82 117 H 110 H Respiratory Rate 22 37 H 27 H Blood Pressure 139/84 131/79 Pulse Oximetry 95 93 L 95 06/30/18 23:30 07/01/18 00:00 07/01/18 00:30 Temperature 100.2 F H Pulse Rate 109 H 111 H 96 H Respiratory Rate 21 28 H 25 H Blood Pressure 144/77 H 127/80 132/78 Pulse Oximetry 97 96 97 07/01/18 00:39 07/01/18 01:00 07/01/18 01:30 Temperature Pulse Rate 104 H 117 H 104 H Respiratory Rate 24 24 23 Blood Pressure 155/76 H 145/85 H Pulse Oximetry 95 96 07/01/18 02:00 07/01/18 02:31 07/01/18 03:01 Temperature Pulse Rate 107 H 110 H 113 H Respiratory Rate 24 24 24 Blood Pressure 129/82 148/91 H 151/124 H Pulse Oximetry 96 96 97 07/01/18 03:02 07/01/18 03:30 07/01/18 04:00 Temperature 100.5 F H Pulse Rate 113 H 115 H 108 H Respiratory Rate 24 34 H 30 H Blood Pressure 148/86 H 163/84 H 145/73 H Pulse Oximetry 96 95 94 L 07/01/18 04:23 07/01/18 04:30 07/01/18 06:00 Temperature Pulse Rate 110 H 113 H 118 H Respiratory Rate 22 25 H Blood Pressure 145/87 H Pulse Oximetry 96 Intake & Output 06/30/18 07/01/18 07/01/18 18:59 06:59 18:59 Intake Total 100 / 100 340 / 340 Output Total 2150 / 2150 1650 / 1650 Balance -2049 / -2049 -1310 / -1310 Weight 88 kg Intake: IV 100 / 100 100 / 100 Maxipime Inj 2,000 MG In NS Inj 100 / 100 100 / 100 100 ML @ 200 mls/hr IV.SIG Q12H [facility] Rx#:[id number] Oral 240 / 240 Output: Urine Amount (Catheter) 2149 1650 / 1650 Indwelling Urethral Catheter 2149 1650 / 1650 Result Diagrams: 07/01/18 03:15 07/01/18 03:15 Other Results: Laboratory Results - last 12 hr 07/01/18 07/01/18 03:15 03:15 WBC 21.5 H RBC 4.23 L Hgb 12.5 L Hct 37.7 L MCV 89.3 MCH 29.6 MCHC 33.1 RDW 13.8 Plt Count 88 L MPV 10.2 Prelim Diff (Auto) Slide review pending Neut % (Auto) 95.3 H Lymph % (Auto) 1.2 L [place] % (Auto) 3.4 Eos % (Auto) 0.0 Baso % (Auto) 0.1 Neut # (Auto) 20.5 H Lymph # (Auto) 0.3 L [place] # (Auto) 0.7 Eos # (Auto) 0.0 Baso # (Auto) 0.0 WBC Differential . Diff Scan Auto diff confirmed Differential Comment . Platelet Estimate Low L Platelet Morphology Enlarged H Sodium 152 H Potassium 4.3 Chloride 112 H Carbon Dioxide 36.6 H Anion Gap 3 L BUN 44 H Creatinine 1.01 Estimated GFR 88 L Random Glucose 184 H Calcium 8.1 L Phosphorus 3.6 Magnesium 2.3 Total Bilirubin 1.0 AST 26 ALT 53 Alkaline Phosphatase 61 Total Protein 6.6 Albumin 3.3 L Imaging: Abdomen Ultrasound 06/21/18 00:00 CONCLUSION: 1. No ascites is identified within the abdomen. Abdomen/Pelvis CT 06/24/18 00:00 CONCLUSION: 1. Benign appearing right adrenal mass. 2. No acute CT findings in the abdomen or pelvis. Abdomen X-Ray 06/26/18 09:21 CONCLUSION: 1. Nonobstructive bowel gas pattern without pneumoperitoneum. 2. Nasogastric tube is curled in the expected location of the gastric body. I believe the portions of the tube identified over the heart shadow is probably projectional as there is no evidence of a significant hiatal hernia on the most recent CT of the abdomen. Abdomen/Bladder Ultrasound 06/28/18 00:00 CONCLUSION: 1. Echogenic kidneys characteristic of medical renal disease. No hydronephrosis. Bladder decompressed by Moreno Chest X-Ray 06/29/18 06:00 CONCLUSION: The lungs are clear. Lines and tubes stable. Objective Remarks: GENERAL: Patient is 73 yo lying in bed in NAD SKIN: Warm and dry. HEAD: Normocephalic. EYES: No scleral icterus. No injection or drainage. NECK: Supple, trachea midline. No JVD or lymphadenopathy. CARDIOVASCULAR: Regular rate and rhythm without murmurs, gallops, or rubs. RESPIRATORY: Breath sounds equal bilaterally. No accessory muscle use. GASTROINTESTINAL: Abdomen soft, non-tender, nondistended. MUSCULOSKELETAL: No cyanosis, or edema. Neuro: Awake and alert. Assessment and Plan - Assessment and Plan Plan: ASSESSMENT: Acute hypercapnic respiratory failure Acute COPD exacerbation Altered mental status due to CO2 narcosis Acute kidney injury/failure Hypertension Hypernatremia Leukocytosis Hyperglycemia COPD PLAN: NEURO: -Monitor neuro status, avoid sedatives RESP: -Continue with oxygen keep sats >92% -Extubated 06/29 -DuoNeb every 4 hours scheduled and as needed -Decrease IV Solu-Medrol 40 mg Q12 -Inhaled budesonide -Continue cefepime continue azithromycin -BIPAP PRN fo resp distress, pulm is following CV: - Monitor HR and BP keep MAP>65mmHg -Continue with BP meds, Cardizem 60mg Q6, Norvasc 10mg daily, Hydralazine 50mg TID GI: -Speech eval, diet per speech -IV famotidine : -Monitor renal function, I/O's, electrolytes replacement per protocol. -Place on D5W@75ml/hr, monitor sodium level. ID: -Antibiotics with cefepime. Monitor for signs of infections ( Fever, WBC) -Sputum cultures-neg to date -Will Panculture in setting of worsening leukocytosis and low grade fevers( Blood, sputum, UA with cx if indicated) HEME: -Monitor CBC, coags, Hep PLT is positive. Will check ANNMARIE and consult Hematology ENDO: -Electrolyte replacement per protocol -Sliding scale insulin medium scale, Levemir 10 q12 PROPH: -Bilateral lower extremity SCDs. PPI ,Lovenox on hold for worsening thrombocytopenia, PLT<100 -Check Doppler US LE r/o DVT LINES: -Utilize peripheral IVs, Level 3
[2018-07-01] MEDS ORDERED: Dextrose 5% in Water Inj 1,000 ML IV.CONT SCH (08:30)
[2018-07-01] MEDS: amLODIPine 10 MG Tablet PO SCH (08:55)
[2018-07-01] MEDS: hydrALAZINE 50 MG Tablet PO SCH ×3 (08:55→18:08)
[2018-07-01] MEDS: dilTIAZem 60 MG Tablet PO SCH ×4 (08:55→21:47)
[2018-07-01] MEDS: Senna/Docusate Sodium 8.6/50 MG Tablet PO SCH ×2 (08:55→21:47)
[2018-07-01] MEDS: Simethicone 80 MG Chew Tablet PO SCH ×4 (08:55→21:47)
[2018-07-01] MEDS: Insulin Detemir Inj 1,000 UNIT/10 ML Vial SQ SCH ×2 (08:56→21:47)
[2018-07-01] MEDS: MethylPREDNISolone Sod Succinate Inj 40 MG/ML Vial IV.PUSH SCH ×3 (08:56→23:14)
[2018-07-01] MEDS: Chlorhexidine 0.12% Oral Kit 15 ML UDC OROPHARYNG SCH ×2 (08:57→19:53)
[2018-07-01] MEDS: Beneprotein Powder Packet G-TUBE SCH ×3 (08:57→18:09)
[2018-07-01] MEDS: Bisacodyl 10 MG Supp RECTAL SCH (08:57)
[2018-07-01] MEDS: Azithromycin Inj 250 MG in Sodium Chlor 0.9% Inj 250 ML IV.SIG SCH (15:03)
[2018-07-01] MEDS: Acetaminophen 325 MG Tablet PO PRN (15:05)
--- NOTE | 2018-07-01 16:23 | US ---
EXAM DATE: 07/01/2018 4:21 PM EDT AGE/SEX: 73 years / Male INDICATIONS: Bilateral leg swelling. CLINICAL DATA: This is the patient's initial encounter. Patient reports that signs and symptoms have been present for 1 day and indicates a pain score of 1/10. MEDICAL/SURGICAL HISTORY: Asthma. Chronic obstructive pulmonary disease. Hypertension. Chron ic back pain. None. COMPARISON: No prior exams available for comparison. TECHNIQUE: Venous ultrasound of both lower extremities was performed from the inguinal ligament to t he proximal calf. Real-time, color Doppler and spectral tracing, compression and augmentation techni ques were used. FINDINGS: Right Leg: Normal compression of the deep venous system from the inguinal region to the proximal elisabeth f. No echogenic clot is seen. Normal response of the venous system to augmentation and respiration. Left Leg: Normal compression of the deep venous system from the inguinal region to the proximal calf . No echogenic clot is seen. Normal response of the venous system to augmentation and respiration. Other: None. CONCLUSION: 1. The study is negative for bilateral lower extremity deep venous thrombosis. Electronically signed by: Thuan Rain MD 07/01/2018 4:22 PM EDT
[2018-07-01 18:10] LABS: Bilirubin,Urine Negative (Negative); Clarity,Urine Clear (Clear); Color,Urine Yellow (Yellw/Straw); Glucose,Urine (UA) 50 mg/dL (Negative); Leukocyte Esterase,Urine Negative (Negative); Mucus,Urine Few /lpf (Occasional); Nitrite,Urine Negative (Negative); Specific Gravity,Urine 1.015 (1.002-1.035)
--- NOTE | 2018-07-01 19:06 | P.PNPL ---
Subjective Interval history: 73 YOAA male with COPD, 02 dependent Follows at [facility] Admitted with AMS, COPD exac Extubated On NC Has low grade fever HIT positive Physical Exam Vital signs: Vital Signs 06/30/18 19:30 06/30/18 20:00 06/30/18 20:30 Temperature 98.2 F Pulse Rate 105 H 110 H 92 H Respiratory Rate 24 30 H 25 H Blood Pressure 170/81 H 148/76 H 167/76 H Pulse Oximetry 96 95 95 06/30/18 21:00 06/30/18 21:30 06/30/18 22:00 Temperature Pulse Rate 105 H 106 H 107 H Respiratory Rate 26 H 31 H 33 H Blood Pressure 137/82 144/83 H 149/85 H Pulse Oximetry 94 L 93 L 96 06/30/18 22:09 06/30/18 22:30 06/30/18 23:00 Temperature Pulse Rate 82 117 H 110 H Respiratory Rate 22 37 H 27 H Blood Pressure 139/84 131/79 Pulse Oximetry 95 93 L 95 06/30/18 23:30 07/01/18 00:00 07/01/18 00:30 Temperature 100.2 F H Pulse Rate 109 H 111 H 96 H Respiratory Rate 21 28 H 25 H Blood Pressure 144/77 H 127/80 132/78 Pulse Oximetry 97 96 97 07/01/18 00:39 07/01/18 01:00 07/01/18 01:30 Temperature Pulse Rate 104 H 117 H 104 H Respiratory Rate 24 24 23 Blood Pressure 155/76 H 145/85 H Pulse Oximetry 95 96 07/01/18 02:00 07/01/18 02:31 07/01/18 03:01 Temperature Pulse Rate 107 H 110 H 113 H Respiratory Rate 24 24 24 Blood Pressure 129/82 148/91 H 151/124 H Pulse Oximetry 96 96 97 07/01/18 03:02 07/01/18 03:30 07/01/18 04:00 Temperature 100.5 F H Pulse Rate 113 H 115 H 108 H Respiratory Rate 24 34 H 30 H Blood Pressure 148/86 H 163/84 H 145/73 H Pulse Oximetry 96 95 94 L 07/01/18 04:23 07/01/18 04:30 07/01/18 05:00 Temperature Pulse Rate 110 H 113 H 114 H Respiratory Rate 22 25 H 26 H Blood Pressure 145/87 H 134/75 Pulse Oximetry 96 96 07/01/18 05:30 07/01/18 06:00 07/01/18 06:30 Temperature Pulse Rate 117 H 115 H 113 H Respiratory Rate 27 H 27 H 27 H Blood Pressure 145/71 H 127/79 124/82 Pulse Oximetry 95 97 96 07/01/18 07:00 07/01/18 07:30 07/01/18 08:00 Temperature 99.6 F Pulse Rate 119 H 114 H 110 H Respiratory Rate 24 25 H 26 H Blood Pressure 148/79 H 143/76 H 134/81 Pulse Oximetry 94 L 92 L 93 L 07/01/18 08:30 07/01/18 09:00 07/01/18 09:30 Temperature Pulse Rate 113 H 106 H 113 H Respiratory Rate 27 H 24 26 H Blood Pressure 152/78 H 145/74 H 132/73 Pulse Oximetry 94 L 95 91 L 07/01/18 10:00 07/01/18 10:30 07/01/18 11:00 Temperature Pulse Rate 111 H 108 H 116 H Respiratory Rate 30 H 27 H 27 H Blood Pressure 141/87 H 155/72 H 155/78 H Pulse Oximetry 95 98 89 L 07/01/18 11:31 07/01/18 12:00 07/01/18 12:30 Temperature Pulse Rate 117 H 117 H 113 H Respiratory Rate 31 H 31 H 29 H Blood Pressure 168/74 H 132/69 135/78 Pulse Oximetry 95 92 L 96 07/01/18 13:00 07/01/18 13:30 07/01/18 14:00 Temperature Pulse Rate 112 H 113 H 118 H Respiratory Rate 27 H 27 H 36 H Blood Pressure 140/74 140/75 Pulse Oximetry 95 94 L 92 L 07/01/18 14:08 07/01/18 14:30 07/01/18 15:00 Temperature Pulse Rate 116 H 111 H 110 H Respiratory Rate 29 H 31 H 28 H Blood Pressure 117/63 117/76 131/80 Pulse Oximetry 93 L 95 92 L 07/01/18 15:30 07/01/18 16:00 07/01/18 16:30 Temperature 99.7 F H Pulse Rate 113 H 111 H 112 H Respiratory Rate 28 H 28 H 27 H Blood Pressure 132/71 135/63 124/69 Pulse Oximetry 95 93 L 91 L 07/01/18 17:00 07/01/18 17:30 07/01/18 18:00 Temperature Pulse Rate 112 H 112 H 105 H Respiratory Rate 25 H 27 H 29 H Blood Pressure 120/71 123/78 Pulse Oximetry 98 100 87 L 07/01/18 18:01 Temperature Pulse Rate 108 H Respiratory Rate 28 H Blood Pressure 156/80 H Pulse Oximetry 89 L Intake & Output 07/01/18 07/01/18 07/02/18 06:59 18:59 06:59 Intake Total 340 / 340 720 / 720 Output Total 1650 / 1650 1000 / 1000 Balance -1310 / -1310 -280 / -280 Weight 88 kg Intake: IV 100 / 100 Maxipime Inj 2,000 MG In NS Inj 100 / 100 100 ML @ 200 mls/hr IV.SIG Q12H WOLF Rx#:[id number] Oral 240 / 240 720 / 720 Output: Urine 650 / 650 Urine Amount (Catheter) 1650 / 1650 350 / 350 Indwelling Urethral Catheter 1650 / 1650 350 / 350 GENERAL: Elderly WM mild sob SKIN: Warm and dry. HEAD: Normocephalic. EYES: No scleral icterus. No injection or drainage. NECK: Supple, trachea midline. No JVD or lymphadenopathy. CARDIOVASCULAR: Regular rate and rhythm without murmurs, gallops, or rubs. RESPIRATORY: Breath sounds equal bilaterally. No accessory muscle use. GASTROINTESTINAL: Abdomen soft, non-tender, distended. MUSCULOSKELETAL: No cyanosis, or edema. BACK: Nontender without obvious deformity. No CVA tenderness. - Urinary Catheter Management Indwelling Urethral Catheter Cath placed during this visit: yes Reason for continuing: Hourly intake/output Insertion date: 06/27/18 Insertion time: 16:00 Assessment and Plan - Plan IMPRESSION: Hypercapnoic RF, s/p exac COPD exac AMS improved HTN HIT positive PLAN: Aerosol nebs Cont Abx Supplement 02 Monitor BS Check cultures
[2018-07-01 20:59] LABS: ABG Base Excess 4.3 mmol/L (-2-2); ABG PCO2 72 mmHg (38-42); ABG PO2 52 mmHG (61-120)
--- NOTE | 2018-07-01 21:21 | XR ---
EXAM DATE: 07/01/2018 9:16 PM EDT AGE/SEX: 73 years / Male INDICATIONS: Short of breath. CLINICAL DATA: This is the patient's subsequent encounter. Patient reports that signs and symptoms h ave been present for 1 week and indicates a pain score of 0/10. MEDICAL/SURGICAL HISTORY: Chronic obstructive pulmonary disease. Hypertension. Asthma. None. COMPARISON: [facility] – [place], CHEST 1V SINGLE AP, 06/29/2018. . FINDINGS: Cardiomegaly and aortic calcification. Clear lungs. Osseous structures are intact. CONCLUSION: Negative examination. Electronically signed by: Han Wood MD 07/01/2018 9:20 PM EDT
[2018-07-01] MEDS ORDERED: MethylPREDNISolone Sod Succinate Inj 125 MG/2 ML Vial IV.PUSH ONE (21:30)
[2018-07-01 22:36] LABS: ABG Base Excess 4.9 mmol/L (-2-2); ABG PCO2 63 mmHg (38-42); ABG PO2 67 mmHG (61-120)
[2018-07-02] MEDS ORDERED: Etomidate Inj 40 MG/20 ML Vial IV.PUSH ONE (03:48)
[2018-07-02] MEDS ORDERED: Midazolam Inj 5 MG/ML 1 ML Vial ONE (03:48)
[2018-07-02 03:54] LABS: ABG Base Excess 4.4 mmol/L (-2-2); ABG PCO2 61 mmHg (38-42); ABG PO2 70 mmHG (61-120)
--- NOTE | 2018-07-02 04:04 | P.PCN ---
Date of procedure: 07/02/18 Pre-op diagnosis: Acut hypoxemic respiratory failure Post-op diagnosis: same Procedure: PROCEDURE: Endotracheal intubation The patient was placed on a cardiac exercise specialist including continuous pulse oximetry. Rapid Sequence Intubation was conducted using etomidate 20 mg IV, Versed 5 mg IV, rocuronium 50 mg IV. Cricoid pressure was maintained from time induction agent was given to time of cuff balloon inflation. After induction, large amount of coffee ground material regurgitated from mouth. Using a direct laryngoscopy with MAC 4 blade and a size 8.0 endotracheal tube with stylet, the patient was intubated on the first attempt. The stylet was removed and cuff balloon was inflated. Appropriate endotracheal tube position was confirmed by direct visualization of vocal cord passage, fogging of the tube, CO2 colometric indicator and symmetric breath sounds. The tube was secured at 23 cm at the lips. Small amount of coffee ground material suctioned out from ETT as well. Post intubation chest x-ray is pending at this time. Anesthesia: GETA Surgeon: Corey Ahn Estimated blood loss (mL): 0 Pathology: other (sputum culture) Condition: critical Disposition: ICU
[2018-07-02] MEDS ORDERED: Propofol Inj 500 MG/50 ML Vial ONE (04:25)
--- NOTE | 2018-07-02 04:47 | XR ---
EXAM DATE: 07/02/2018 4:41 AM EDT AGE/SEX: 73 years / Male INDICATIONS: Post intubation. CLINICAL DATA: This is the patient's subsequent encounter. Patient reports that signs and symptoms h ave been present for 4 - 6 days and indicates a pain score of 0/10. MEDICAL/SURGICAL HISTORY: Asthma. Chronic obstructive pulmonary disease. Hypertension. None. COMPARISON: [facility] – [place], CHEST 1V SINGLE AP, 07/01/2018. . FINDINGS: Trace atelectasis of both bases. No pleural effusion seen. No pneumothorax. Heart size stable, normal. Endotracheal tube tip is 4.6 cm above the christy. Nasogastric tube courses into the stomach. CONCLUSION: 1. Interim intubation and nasogastric tube placement as above. 2. Mild bibasilar atelectasis has developed. Electronically signed by: Jimy Gold MD 07/02/2018 4:45 AM EDT
[2018-07-02] MEDS: Insulin NovoLIN Regular Correctional Sugar Inj SQ SCH ×5 (05:07→20:53)
[2018-07-02] MEDS: Oral Hygiene Kit OROPHARYNG SCH ×3 (05:08→17:26)
[2018-07-02] MEDS: Famotidine PF Inj 20 MG/2 ML Vial IV.PUSH SCH ×2 (05:16→17:24)
[2018-07-02] MEDS: Argatroban Inj 250 MG in Sodium Chlor 0.9% Inj 247.5 ML IV.CONT PRN (05:16)
--- NOTE | 2018-07-02 05:19 | CT ---
EXAM DATE: 07/02/2018 5:02 AM EDT AGE/SEX: 73 years / Male INDICATIONS: Abdominal distention; possible obstruction. CLINICAL DATA: This is the patient's initial encounter. Patient reports that signs and symptoms have been present for 1 day and indicates a pain score of Nonresponsive. MEDICAL/SURGICAL HISTORY: Asthma. Chronic obstructive pulmonary disease. Hypertension. None. ORAL CONTRAST: No oral contrast ingested. RADIATION DOSE: 26.28 CTDI (mGy) ; Combined studies COMPARISON: [facility] [place] & [place]ELVIS W/O CONTRAST, 06/24/2018. . TECHNIQUE: Multiple contiguous axial images were obtained through the abdomen and pelvis following b olus infusion of 100 ml Omnipaque 350 (iohexol) nonionic water-soluble contrast as a cumulative dos e for multiple exams. No oral contrast ingested. Using automated exposure control and adjustment of the mA and/or kV according to patient size, radiation dose was kept as low as reasonably achievable t o obtain optimal diagnostic quality images. DICOM format image data is available electronically for review and comparison. FINDINGS: There is moderately distended colon. I believe this is an ileus but the sigmoid colon is completely d ecompressed and therefore could represent a stricture. I don't see any wall thickening or definite in flammatory changes in the decompressed region but there does appear to be mild wall thickening more d istally of the rectum. No volvulus demonstrated. There is no small bowel distention. No free fluid or free air. No evidence of abscess. Liver, spleen, pancreas and kidneys are within normal limits. 2.7 cm right adrenal nodule again noted . There is slight nodularity of the medial limb of the left adrenal gland, unchanged. CONCLUSION: Colonic distention most likely representing moderate adynamic ileus. However, distal sigm oid colon is decompressed and a sigmoid stricture is conceivable but considered less likely. Apparent mild proctitis. Clinical surveillance and follow-up CT recommended. Electronically signed by: Jimy Gold MD 07/02/2018 5:18 AM EDT
--- NOTE | 2018-07-02 05:25 | CT ---
EXAM DATE: 07/02/2018 4:59 AM EDT AGE/SEX: 73 years / Male INDICATIONS: Respiratory distress; rule out pulmonary embolus. CLINICAL DATA: This is the patient's initial encounter. Patient reports that signs and symptoms have been present for 1 day and indicates a pain score of Nonresponsive. MEDICAL/SURGICAL HISTORY: Asthma. Chronic obstructive pulmonary disease. Hypertension. None. RADIATION DOSE: 26.28 CTDI (mGy) ; Combined studies COMPARISON: [facility] – [place] ABDOMEN & PELVIS W CONTRAST, 07/02/2018. . TECHNIQUE: Volumetric scanning was performed using a multi-row detector CT scanner during bolus infu kenny of 100 ml Omnipaque 350 (iohexol) nonionic water-soluble contrast as a cumulative dose for mult iple exams. The data was post processed with a variety of visualization algorithms including full vol ume maximum intensity projection and sliding thin slab reformation. Using automated exposure control and adjustment of the mA and/or kV according to patient size, radiation dose was kept as low as reas onably achievable to obtain optimal diagnostic quality images. DICOM format image data is available electronically for review and comparison. FINDINGS: There is no pulmonary embolus. There is moderate severity emphysema. Diffuse but basilar predominant patchy parenchymal consolidatio n present. No pleural effusion. No pneumothorax. Apparent left ventricular hypertrophy. A very small pericardial effusion is present. There is coronar y artery calcification focally of the left main and left circumflex. There is a nasogastric tube with tip in the stomach. Patient is intubated. Endotracheal tube tip is s lightly below the thoracic inlet. There are some secretions in the lower trachea and mainstem bronchi . CONCLUSION: 1. No pulmonary embolus. 2. Diffuse but basilar predominant bilateral airspace disease. 3. Endotracheal and endobronchial secretions are demonstrated. 4. Moderate emphysema. 5. Left ventricular hypertrophy. Electronically signed by: Jimy Gold MD 07/02/2018 5:24 AM EDT
[2018-07-02 05:46] LABS: ABG Base Excess 2.6 mmol/L (-2-2); ABG PCO2 65 mmHg (38-42); ABG PO2 306 mmHG (61-120)
[2018-07-02 07:33] LABS: Baso % (Auto) 0.1 % (0.0-2.0); Hematocrit 31.5 % (39.0-51.0); Lymph # (Auto) 0.2 th/mm3 (1.0-4.8); Lymph % (Auto) 0.7 % (9.0-44.0); Mean Corpuscular HGB Conc 31.6 % (32.0-36.0); Mean Corpuscular Hemoglobin 29.4 pg (27.0-34.0); Mean Corpuscular Volume 92.9 fL (80.0-100.0); Mean Platelet Volume 11.5 fL (7.0-11.0); Mono # (Auto) 0.9 th/mm3 (0.0-0.9); Mono % (Auto) 2.7 % (0.0-8.0); Neut # (Auto) 31.8 th/mm3 (1.8-7.7); Neut % (Auto) 96.5 % (16.0-70.0); Platelet Count 65 th/mm3 (150-450); Red Blood Count 3.39 mil/mm3 (4.50-5.90); Red Cell Distribution Width 13.7 % (11.6-17.2); White Blood Count 32.9 th/mm3 (4.0-11.0)
[2018-07-02 07:46] LABS: Alanine Aminotransferase 45 U/L (12-78); Albumin 2.8 g/dL (3.4-5.0); Alkaline Phosphatase 50 U/L (45-117); Anion Gap 7 meq/L (5-15); Aspartate Aminotransferase 22 U/L (15-37); Blood Urea Nitrogen 67 mg/dL (7-18); Calcium 7.5 mg/dL (8.5-10.1); Carbon Dioxide 32.4 meq/L (21.0-32.0); Chloride 110 meq/L (98-107); Glomerular Filtration Rate 68 mL/min (>89); Glucose,Random 171 mg/dL (74-106); Magnesium 2.4 mg/dL (1.5-2.5); Phosphorus 4.7 mg/dL (2.5-4.9); Potassium 4.8 meq/L (3.5-5.1); Sodium 149 meq/L (136-145); Total Protein 5.9 g/dL (6.4-8.2)
[2018-07-02] MEDS: Chlorhexidine 0.12% Oral Kit 15 ML UDC OROPHARYNG SCH ×2 (08:34→20:54)
[2018-07-02] MEDS: MethylPREDNISolone Sod Succinate Inj 40 MG/ML Vial IV.PUSH SCH ×2 (08:34→17:25)
[2018-07-02] MEDS: hydrALAZINE 50 MG Tablet PO SCH ×3 (08:35→18:08)
--- NOTE | 2018-07-02 08:35 | MB ---
cc: Joan Shaffer MD DATE: 07/01/2018 CHIEF COMPLAINT: Thrombocytopenia. HISTORY OF PRESENT ILLNESS: Mr. Curry is a 73-year-old gentleman with a history of COPD on home oxygen, hypertension, hyperlipidemia, anxiety, who was initially admitted to the hospital on 06/19/2018 with shortness of breath and was treated with steroids, antibiotics, and inhalers for COPD exacerbation. He underwent EGD for dyspepsia and developed worsening breathing after that procedure. He was subsequently intubated on 06/27/2018 and then extubated on 06/30/2018. REVIEW OF SYSTEMS: Positive for shortness of breath and abdominal distention. PAST MEDICAL HISTORY: COPD, hypertension, hyperlipidemia, anxiety. PAST SURGICAL HISTORY: None. FAMILY HISTORY: No known family history of abnormal blood counts. SOCIAL HISTORY: The patient is a former smoker. Denies any current alcohol or tobacco use. HOSPITAL MEDICATIONS: Include: 1. Albuterol. 2. Amlodipine. 3. Solu-Medrol. 4. Metoprolol. 5. Flagyl. 6. Zofran. 7. Protonix. 8. Senna. 9. Docusate. PHYSICAL EXAMINATION: GENERAL: Elderly man in mild respiratory distress. HEENT: Head is normocephalic, atraumatic. Eyes: PERRLA. EOMI. NECK: Supple. No palpable lymphadenopathy. CARDIOVASCULAR: Tachycardic. RESPIRATORY: Accessory muscles to breathe. ABDOMEN: Positive for abdominal distention. Nontender. NEUROLOGIC: Grossly nonfocal. PSYCHIATRIC: Appropriate mood and affect with poor recent and long-term memory. IMAGING STUDIES: Doppler ultrasound of the bilateral lower extremities with negative for DVT. LABORATORY STUDIES: White blood cell count 14.7, hemoglobin 11.4, and platelet count is 80,000 with a differential with an elevated absolute neutrophil count. Platelet count on admission was 145,000, the highest value was 147,000 on 06/26/2018. It is currently 88,000 on 07/01/2018. Coags are within normal limits. Chemistry studies with an elevated sodium at 152, creatinine 1.0, normal liver function tests. HIT optical density is positive at 4.3. ANNMARIE is pending. The patient is currently on argatroban drip. 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 Agree with argatroban drip while awaiting the results of ANNMARIE. We will also order ultrasound of bilateral upper extremity to check for clots. We will order peripheral blood smear to be looked at by pathology. CT abdomen with no evidence of hypersplenism or liver abnormalitiy. Given acute TCP unlikely to be due to viral hepatitis, HIV. We will also check fibrinogen though with normal PT, PTT, He does not use alcohol. We will also check nutrient studies to include vitamin B12, folate. MD SOFIA Maynard/sv , 06:44 AM , 06:51 AM [email or web address]
[2018-07-02] MEDS: Simethicone 80 MG Chew Tablet PO SCH ×4 (08:36→21:40)
[2018-07-02] MEDS: dilTIAZem 60 MG Tablet PO SCH ×4 (08:36→21:40)
[2018-07-02] MEDS: Beneprotein Powder Packet G-TUBE SCH ×3 (08:36→17:25)
[2018-07-02] MEDS: Senna/Docusate Sodium 8.6/50 MG Tablet PO SCH ×2 (08:36→21:40)
[2018-07-02] MEDS: amLODIPine 10 MG Tablet PO SCH (08:38)
[2018-07-02] MEDS: Bisacodyl 10 MG Supp RECTAL SCH (08:38)
[2018-07-02 08:50] LABS: Monocytes 1 % (0-8)
[2018-07-02] MEDS: Propofol 1000 mg/100 ml Inj 1,000 MG/100 ML BOTTLE IV.CONT PRN ×2 (09:39→20:36)
--- NOTE | 2018-07-02 10:30 | US ---
EXAM DATE: 07/02/2018 10:24 AM EDT AGE/SEX: 73 years / Male INDICATIONS: Thrombosis. CLINICAL DATA: This is the patient's subsequent encounter. Patient reports that signs and symptoms h ave been present for 1 day and indicates a pain score of 0/10. MEDICAL/SURGICAL HISTORY: . Asthma. Chronic obstructive pulmonary disease. Hypertension. Chroni c back pain. None. COMPARISON: No prior exams available for comparison. FINDINGS: Right Upper Extremity: The vessels are compressible and augmentation response is documented. No fill ing defects are seen. The flow is phasic with respiration. Left Upper Extremity: Limited by bandages. No evidence for thrombosis in the deep venous system. Other: No fluid collections CONCLUSION: 1. Limited, no evidence for thrombosis. Electronically signed by: Jason Angulo MD 07/02/2018 10:28 AM EDT
[2018-07-02] MEDS: Insulin Detemir Inj 1,000 UNIT/10 ML Vial SQ SCH (11:39)
--- NOTE | 2018-07-02 12:55 | P.PNGI ---
Subjective Interval history: gastroenterology reconsult for colonic ileus and abdominal pain . Also noted changes and patient's abdomen including colonic ileus. CT scan done on 07/02 does show positive colonic distention and moderate adynamic ileus, mild proctitis, and sigmoid colon is decompressed which could be conceivably a stricture but less likely. Patient is now in the intensive care setting currently on ventilator management and generalized condition has weakened. EGD done on 06/25/[address] Damon which was normal. Labs reviewed which includes WBC count 32.9 which could be related to steroids, hemoglobin 10., anemic probable chronic but no obvious bleeding, decreased platelet count 65, bilirubin and LFTs are normal. Patient does have generalized abdominal pain to palpation but goes back off to sleep with sedation. NG tube is connected to low intermittent suction with dark brown bilious fluids noted. Abdomen continues to be moderately distended and tympanic, but very hypoactive minimal bowel sounds noted. Patient currently critically ill, will consider any necessary procedures based on patient's symptoms. <Lucy Faulkner - Last Filed: 07/02/18 13:26> Physical Exam Vital signs: Vital Signs 07/01/18 13:00 07/01/18 13:30 07/01/18 14:00 Temperature Pulse Rate 112 H 113 H 118 H Respiratory Rate 27 H 27 H 36 H Blood Pressure 140/74 140/75 Pulse Oximetry 95 94 L 92 L 07/01/18 14:08 07/01/18 14:30 07/01/18 15:00 Temperature Pulse Rate 116 H 111 H 110 H Respiratory Rate 29 H 31 H 28 H Blood Pressure 117/63 117/76 131/80 Pulse Oximetry 93 L 95 92 L 07/01/18 15:30 07/01/18 16:00 07/01/18 16:30 Temperature 99.7 F H Pulse Rate 113 H 111 H 112 H Respiratory Rate 28 H 28 H 27 H Blood Pressure 132/71 135/63 124/69 Pulse Oximetry 95 93 L 91 L 07/01/18 17:00 07/01/18 17:30 07/01/18 18:00 Temperature Pulse Rate 112 H 112 H 105 H Respiratory Rate 25 H 27 H 29 H Blood Pressure 120/71 123/78 Pulse Oximetry 98 100 87 L 07/01/18 18:01 07/01/18 18:30 07/01/18 19:00 Temperature Pulse Rate 108 H 109 H 110 H Respiratory Rate 28 H 28 H 23 Blood Pressure 156/80 H 137/81 126/85 Pulse Oximetry 89 L 90 L 95 07/01/18 19:31 07/01/18 20:00 07/01/18 20:30 Temperature 99.1 F Pulse Rate 107 H 105 H 102 H Respiratory Rate 26 H 26 H 25 H Blood Pressure 138/66 137/65 138/63 Pulse Oximetry 97 86 L 85 L 07/01/18 20:33 07/01/18 21:00 07/01/18 21:16 Temperature Pulse Rate 90 112 H Respiratory Rate 28 H 23 Blood Pressure 115/80 Pulse Oximetry 91 L 92 L 07/01/18 21:30 07/01/18 22:00 07/01/18 22:01 Temperature Pulse Rate 111 H 108 H 109 H Respiratory Rate 32 H 31 H 29 H Blood Pressure 122/71 134/60 Pulse Oximetry 88 L 92 L 91 L 07/01/18 22:30 07/01/18 23:05 07/01/18 23:30 Temperature Pulse Rate 108 H 103 H 104 H Respiratory Rate 31 H 25 H 26 H Blood Pressure 123/70 131/98 H 138/70 Pulse Oximetry 92 L 92 L 90 L 07/02/18 00:00 07/02/18 00:23 07/02/18 00:31 Temperature 98.4 F Pulse Rate 99 H 104 H 109 H Respiratory Rate 28 H 22 29 H Blood Pressure 135/76 135/77 Pulse Oximetry 82 L 94 L 91 L 07/02/18 01:00 07/02/18 01:30 07/02/18 02:00 Temperature Pulse Rate 106 H 105 H 103 H Respiratory Rate 28 H 23 23 Blood Pressure 133/70 118/78 Pulse Oximetry 93 L 97 98 07/02/18 02:12 07/02/18 02:31 07/02/18 03:00 Temperature Pulse Rate 106 H 106 H 105 H Respiratory Rate 24 28 H 27 H Blood Pressure 141/83 H 121/77 114/75 Pulse Oximetry 98 94 L 92 L 07/02/18 03:30 07/02/18 04:00 07/02/18 04:06 Temperature Pulse Rate 104 H 101 H 111 H Respiratory Rate 22 12 12 Blood Pressure 107/79 103/55 L Pulse Oximetry 93 L 100 07/02/18 04:15 07/02/18 04:20 07/02/18 04:30 Temperature Pulse Rate 104 H Respiratory Rate 11 L 16 Blood Pressure 102/59 L Pulse Oximetry 100 100 100 07/02/18 04:31 07/02/18 04:45 07/02/18 04:50 Temperature Pulse Rate 105 H 101 H 96 H Respiratory Rate 27 H 32 H 41 H Blood Pressure 100/59 L 84/55 L 66/46 L Pulse Oximetry 88 L 98 07/02/18 04:58 07/02/18 05:00 07/02/18 05:15 Temperature Pulse Rate 93 H 93 H 95 H Respiratory Rate 19 24 16 Blood Pressure 96/61 L 98/60 L 112/70 Pulse Oximetry 100 100 100 07/02/18 05:23 07/02/18 05:30 07/02/18 05:52 Temperature Pulse Rate 97 H 99 H 97 H Respiratory Rate 16 16 16 Blood Pressure 92/67 L 102/61 Pulse Oximetry 100 100 07/02/18 06:00 07/02/18 06:01 07/02/18 06:15 Temperature Pulse Rate 99 H 99 H 99 H Respiratory Rate 18 18 18 Blood Pressure 121/53 L 108/58 L Pulse Oximetry 100 100 100 07/02/18 06:35 07/02/18 06:45 07/02/18 07:00 Temperature Pulse Rate 98 H 99 H 102 H Respiratory Rate 18 18 18 Blood Pressure 93/69 L 91/70 L Pulse Oximetry 95 96 07/02/18 07:01 07/02/18 07:15 07/02/18 07:36 Temperature Pulse Rate 100 H 98 H 98 H Respiratory Rate 19 21 19 Blood Pressure 129/65 87/60 L 127/84 Pulse Oximetry 96 96 94 L 07/02/18 07:45 07/02/18 07:56 07/02/18 08:00 Temperature 98.4 F Pulse Rate 102 H 103 H Respiratory Rate 18 18 18 Blood Pressure 119/68 101/58 L Pulse Oximetry 97 97 96 07/02/18 08:15 07/02/18 09:31 07/02/18 09:46 Temperature Pulse Rate 104 H 101 H 99 H Respiratory Rate 18 22 19 Blood Pressure 84/63 L 104/61 97/53 L Pulse Oximetry 97 100 100 07/02/18 10:00 07/02/18 10:23 07/02/18 10:51 Temperature Pulse Rate 97 H 97 H 93 H Respiratory Rate 18 18 19 Blood Pressure 79/53 L 117/76 Pulse Oximetry 99 94 L 99 07/02/18 11:00 07/02/18 11:31 07/02/18 11:34 Temperature Pulse Rate 93 H 99 H 97 H Respiratory Rate 18 26 H 27 H Blood Pressure 102/70 67/42 L 65/45 L Pulse Oximetry 99 100 100 07/02/18 11:35 07/02/18 12:00 Temperature 98.5 F Pulse Rate 97 H 100 H Respiratory Rate 24 19 Blood Pressure 115/74 102/73 Pulse Oximetry 100 100 Intake & Output 07/01/18 07/02/18 07/02/18 18:59 06:59 18:59 Intake Total 1070 / 1070 1780 / 1780 Output Total 1000 / 1000 650 / 650 Balance 70 / 70 1130 / 1130 Weight 92 kg Intake: IV 350 / 350 1300 / 1300 D5W Inj 1,000 ML @ 75 mls/hr IV 1000 / 1000 .CONT .[id number] [facility] Rx#:[id number] Azithromycin Inj 250 MG In NS 250 / 250 Inj 250 ML @ 250 mls/hr IV.SIG Q24H [facility] Rx#:[id number] Maxipime Inj 2,000 MG In NS Inj 100 / 100 200 / 200 100 ML @ 200 mls/hr IV.SIG Q8H [facility] Rx#:[id number] Flagyl 500 MG Inj 100 ML @ 100 100 / 100 mls/hr IV.SIG Q8H [facility] Rx#: [id number] Oral 720 / 720 480 / 480 Output: Urine 650 / 650 350 / 350 Urine Amount (Catheter) 350 / 350 Indwelling Urethral Catheter 350 / 350 Gastric Drainage 300 / 300 Left Nare Nasogastric Tube 300 / 300 Other: # Incontinent Voids 4 Date of Last Bowel Movement 06/28/18 06/28/18 - Urinary Catheter Management Indwelling Urethral Catheter Cath placed during this visit: yes Reason for continuing: Hourly intake/output Insertion date: 06/27/18 Insertion time: 16:00 <Lucy Faulkner - Last Filed: 07/02/18 13:26> Vital signs: Vital Signs 07/01/18 16:00 07/01/18 16:30 07/01/18 17:00 Temperature 99.7 F H Pulse Rate 111 H 112 H 112 H Respiratory Rate 28 H 27 H 25 H Blood Pressure 135/63 124/69 120/71 Pulse Oximetry 93 L 91 L 98 07/01/18 17:30 07/01/18 18:00 07/01/18 18:01 Temperature Pulse Rate 112 H 105 H 108 H Respiratory Rate 27 H 29 H 28 H Blood Pressure 123/78 156/80 H Pulse Oximetry 100 87 L 89 L 07/01/18 18:30 07/01/18 19:00 07/01/18 19:31 Temperature Pulse Rate 109 H 110 H 107 H Respiratory Rate 28 H 23 26 H Blood Pressure 137/81 126/85 138/66 Pulse Oximetry 90 L 95 97 07/01/18 20:00 07/01/18 20:30 07/01/18 20:33 Temperature 99.1 F Pulse Rate 105 H 102 H 90 Respiratory Rate 26 H 25 H 28 H Blood Pressure 137/65 138/63 Pulse Oximetry 86 L 85 L 07/01/18 21:00 07/01/18 21:16 07/01/18 21:30 Temperature Pulse Rate 112 H 111 H Respiratory Rate 23 32 H Blood Pressure 115/80 122/71 Pulse Oximetry 91 L 92 L 88 L 07/01/18 22:00 07/01/18 22:01 07/01/18 22:30 Temperature Pulse Rate 108 H 109 H 108 H Respiratory Rate 31 H 29 H 31 H Blood Pressure 134/60 123/70 Pulse Oximetry 92 L 91 L 92 L 07/01/18 23:05 07/01/18 23:30 07/02/18 00:00 Temperature 98.4 F Pulse Rate 103 H 104 H 99 H Respiratory Rate 25 H 26 H 28 H Blood Pressure 131/98 H 138/70 135/76 Pulse Oximetry 92 L 90 L 82 L 07/02/18 00:23 07/02/18 00:31 07/02/18 01:00 Temperature Pulse Rate 104 H 109 H 106 H Respiratory Rate 22 29 H 28 H Blood Pressure 135/77 133/70 Pulse Oximetry 94 L 91 L 93 L 07/02/18 01:30 07/02/18 02:00 07/02/18 02:12 Temperature Pulse Rate 105 H 103 H 106 H Respiratory Rate 23 23 24 Blood Pressure 118/78 141/83 H Pulse Oximetry 97 98 98 07/02/18 02:31 07/02/18 03:00 07/02/18 03:30 Temperature Pulse Rate 106 H 105 H 104 H Respiratory Rate 28 H 27 H 22 Blood Pressure 121/77 114/75 107/79 Pulse Oximetry 94 L 92 L 93 L 07/02/18 04:00 07/02/18 04:06 07/02/18 04:15 Temperature Pulse Rate 101 H 111 H 104 H Respiratory Rate 12 12 11 L Blood Pressure 103/55 L 102/59 L Pulse Oximetry 100 100 07/02/18 04:20 07/02/18 04:30 07/02/18 04:31 Temperature Pulse Rate 105 H Respiratory Rate 16 27 H Blood Pressure 100/59 L Pulse Oximetry 100 100 88 L 07/02/18 04:45 07/02/18 04:50 07/02/18 04:58 Temperature Pulse Rate 101 H 96 H 93 H Respiratory Rate 32 H 41 H 19 Blood Pressure 84/55 L 66/46 L 96/61 L Pulse Oximetry 98 100 07/02/18 05:00 07/02/18 05:15 07/02/18 05:23 Temperature Pulse Rate 93 H 95 H 97 H Respiratory Rate 24 16 16 Blood Pressure 98/60 L 112/70 Pulse Oximetry 100 100 07/02/18 05:30 07/02/18 05:52 07/02/18 06:00 Temperature Pulse Rate 99 H 97 H 99 H Respiratory Rate 16 16 18 Blood Pressure 92/67 L 102/61 Pulse Oximetry 100 100 100 07/02/18 06:01 07/02/18 06:15 07/02/18 06:35 Temperature Pulse Rate 99 H 99 H 98 H Respiratory Rate 18 18 18 Blood Pressure 121/53 L 108/58 L 93/69 L Pulse Oximetry 100 100 95 07/02/18 06:45 07/02/18 07:00 07/02/18 07:01 Temperature Pulse Rate 99 H 102 H 100 H Respiratory Rate 18 18 19 Blood Pressure 91/70 L 129/65 Pulse Oximetry 96 96 07/02/18 07:15 07/02/18 07:36 07/02/18 07:45 Temperature Pulse Rate 98 H 98 H 102 H Respiratory Rate 21 19 18 Blood Pressure 87/60 L 127/84 119/68 Pulse Oximetry 96 94 L 97 07/02/18 07:56 07/02/18 08:00 07/02/18 08:15 Temperature 98.4 F Pulse Rate 103 H 104 H Respiratory Rate 18 18 18 Blood Pressure 101/58 L 84/63 L Pulse Oximetry 97 96 97 07/02/18 09:31 07/02/18 09:46 07/02/18 10:00 Temperature Pulse Rate 101 H 99 H 97 H Respiratory Rate 22 19 18 Blood Pressure 104/61 97/53 L Pulse Oximetry 100 100 99 07/02/18 10:23 07/02/18 10:51 07/02/18 11:00 Temperature Pulse Rate 97 H 93 H 93 H Respiratory Rate 18 19 18 Blood Pressure 79/53 L 117/76 102/70 Pulse Oximetry 94 L 99 99 07/02/18 11:31 07/02/18 11:34 07/02/18 11:35 Temperature Pulse Rate 99 H 97 H 97 H Respiratory Rate 26 H 27 H 24 Blood Pressure 67/42 L 65/45 L 115/74 Pulse Oximetry 100 100 100 07/02/18 12:00 07/02/18 12:30 07/02/18 13:01 Temperature 98.5 F Pulse Rate 100 H 97 H Respiratory Rate 19 18 18 Blood Pressure 102/73 Pulse Oximetry 100 100 Intake & Output 07/01/18 07/02/18 07/02/18 18:59 06:59 18:59 Intake Total 1070 / 1070 1780 / 1780 Output Total 1000 / 1000 650 / 650 Balance 70 / 70 1130 / 1130 Weight 92 kg Intake: IV 350 / 350 1300 / 1300 D5W Inj 1,000 ML @ 75 mls/hr IV 1000 / 1000 .CONT .[id number] [facility] Rx#:[id number] Azithromycin Inj 250 MG In NS 250 / 250 Inj 250 ML @ 250 mls/hr IV.SIG Q24H [facility] Rx#:[id number] Maxipime Inj 2,000 MG In NS Inj 100 / 100 200 / 200 100 ML @ 200 mls/hr IV.SIG Q8H [facility] Rx#:[id number] Flagyl 500 MG Inj 100 ML @ 100 100 / 100 mls/hr IV.SIG Q8H [facility] Rx#: [id number] Oral 720 / 720 480 / 480 Output: Urine 650 / 650 350 / 350 Urine Amount (Catheter) 350 / 350 Indwelling Urethral Catheter 350 / 350 Gastric Drainage 300 / 300 Left Nare Nasogastric Tube 300 / 300 Other: # Incontinent Voids 4 Date of Last Bowel Movement 06/28/18 06/28/18 - Urinary Catheter Management Indwelling Urethral Catheter Cath placed during this visit: no <Richard Chauhan - Last Filed: 07/02/18 15:43> Results - Labs CBC & Chem 7: 07/02/18 05:42 07/02/18 05:42 Laboratory Results - last 24 hr 07/01/18 07/01/18 07/01/18 16:20 17:52 19:37 WBC RBC Hgb Hct MCV MCH MCHC RDW Plt Count MPV Prelim Diff (Auto) Neut % (Auto) Lymph % (Auto) [place] % (Auto) Eos % (Auto) Baso % (Auto) Neut # (Auto) Lymph # (Auto) [place] # (Auto) Eos # (Auto) Baso # (Auto) WBC Differential Seg Neuts % (Manual) Band Neuts % (Manual) Monocytes % (Manual) Abs Neuts (Manual) Differential Comment Platelet Estimate Platelet Morphology Smear Path Review APTT Fibrinogen Puncture Site Patient Temperature O2 Saturation ABG pH ABG pCO2 ABG pO2 ABG HCO3 ABG O2 Content ABG Base Excess ABG Methemoglobin Ray[place] Test Hemoglobin Carboxyhemoglobin O2 Delivery Device Vent Setting Inspired O2 Critical Value Sodium Potassium Chloride Carbon Dioxide Anion Gap BUN Creatinine Estimated GFR POC Glucose 255 H 238 H Random Glucose Calcium Phosphorus Magnesium Total Bilirubin AST ALT Alkaline Phosphatase Total Protein Albumin Urine Color Yellow Urine Clarity Clear Urine pH 5.0 Ur Specific [place] 1.015 Urine Protein 30 H Urine Glucose (UA) 50 Urine Ketones Negative Urine Occult Blood Small H Urine Nitrate Negative Urine Bilirubin Negative Urine Urobilinogen Less than 2 Ur Leukocyte Esterase Negative Urine RBC 1 Urine WBC 1 Urine Mucus Few H Micro UA Comment Culture not ind Ur Microscopic Review Not Reportable Urine Culture Comments Culture not ind 07/01/18 07/01/18 07/01/18 20:39 22:18 23:06 WBC RBC Hgb Hct MCV MCH MCHC RDW Plt Count MPV Prelim Diff (Auto) Neut % (Auto) Lymph % (Auto) [place] % (Auto) Eos % (Auto) Baso % (Auto) Neut # (Auto) Lymph # (Auto) [place] # (Auto) Eos # (Auto) Baso # (Auto) WBC Differential Seg Neuts % (Manual) Band Neuts % (Manual) Monocytes % (Manual) Abs Neuts (Manual) Differential Comment Platelet Estimate Platelet Morphology Smear Path Review APTT Fibrinogen Puncture Site Right radial Right radial Patient Temperature 98.6 98.6 O2 Saturation 77 L* 88 L* ABG pH 7.26 L* 7.31 L ABG pCO2 72 H* 63 H* ABG pO2 52 L* 67 ABG HCO3 31 H 31 H ABG O2 Content 11.8 L 13.6 ABG Base Excess 4.3 H 4.9 H ABG Methemoglobin 1.6 1.7 Raymon Test Present Present Hemoglobin 10.9 L 11.0 L Carboxyhemoglobin 0.9 0.9 O2 Delivery Device Ventimask Bipap Vent Setting 12/5 Inspired O2 50 70 Critical Value Yes Yes Sodium Potassium Chloride Carbon Dioxide Anion Gap BUN Creatinine Estimated GFR POC Glucose 174 H Random Glucose Calcium Phosphorus Magnesium Total Bilirubin AST ALT Alkaline Phosphatase Total Protein Albumin Urine Color Urine Clarity Urine pH Ur Specific [place] Urine Protein Urine Glucose (UA) Urine Ketones Urine Occult Blood Urine Nitrate Urine Bilirubin Urine Urobilinogen Ur Leukocyte Esterase Urine RBC Urine WBC Urine Mucus Micro UA Comment Ur Microscopic Review Urine Culture Comments 07/02/18 07/02/18 07/02/18 03:06 03:27 05:28 WBC RBC Hgb Hct MCV MCH MCHC RDW Plt Count MPV Prelim Diff (Auto) Neut % (Auto) Lymph % (Auto) [place] % (Auto) Eos % (Auto) Baso % (Auto) Neut # (Auto) Lymph # (Auto) [place] # (Auto) Eos # (Auto) Baso # (Auto) WBC Differential Seg Neuts % (Manual) Band Neuts % (Manual) Monocytes % (Manual) Abs Neuts (Manual) Differential Comment Platelet Estimate Platelet Morphology Smear Path Review APTT Fibrinogen Puncture Site Right radial Right radial Patient Temperature 98.6 98.6 O2 Saturation 90 97 ABG pH 7.32 L 7.27 L* ABG pCO2 61 H* 65 H* ABG pO2 70 306 H ABG HCO3 30 H 29 H ABG O2 Content 14.0 14.6 ABG Base Excess 4.4 H 2.6 H ABG Methemoglobin 1.6 1.6 Raymon Test Present + Hemoglobin 11.0 L 10.1 L Carboxyhemoglobin 0.6 0.4 O2 Delivery Device Bipap Ventilator Vent Setting Prvc/ac 16 vt 550 Inspired O2 90 100 Critical Value Yes Yes Sodium Potassium Chloride Carbon Dioxide Anion Gap BUN Creatinine Estimated GFR POC Glucose 176 H Random Glucose Calcium Phosphorus Magnesium Total Bilirubin AST ALT Alkaline Phosphatase Total Protein Albumin Urine Color Urine Clarity Urine pH Ur Specific [place] Urine Protein Urine Glucose (UA) Urine Ketones Urine Occult Blood Urine Nitrate Urine Bilirubin Urine Urobilinogen Ur Leukocyte Esterase Urine RBC Urine WBC Urine Mucus Micro UA Comment Ur Microscopic Review Urine Culture Comments 07/02/18 07/02/18 07/02/18 05:42 05:42 07:50 WBC 32.9 H RBC 3.39 L Hgb 10.0 L D Hct 31.5 L MCV 92.9 D MCH 29.4 MCHC 31.6 L RDW 13.7 Plt Count 65 L MPV 11.5 H Prelim Diff (Auto) Slide review pending Neut % (Auto) 96.5 H Lymph % (Auto) 0.7 L [place] % (Auto) 2.7 Eos % (Auto) 0.0 Baso % (Auto) 0.1 Neut # (Auto) 31.8 H Lymph # (Auto) 0.2 L [place] # (Auto) 0.9 Eos # (Auto) 0.0 Baso # (Auto) 0.0 WBC Differential Manual diff final Seg Neuts % (Manual) 95 H Band Neuts % (Manual) 4 Monocytes % (Manual) 1 Abs Neuts (Manual) 32.6 H Differential Comment . Platelet Estimate Low L Platelet Morphology Enlarged H Smear Path Review APTT Fibrinogen Puncture Site Patient Temperature O2 Saturation ABG pH ABG pCO2 ABG pO2 ABG HCO3 ABG O2 Content ABG Base Excess ABG Methemoglobin Ray[place] Test Hemoglobin Carboxyhemoglobin O2 Delivery Device Vent Setting Inspired O2 Critical Value Sodium 149 H Potassium 4.8 Chloride 110 H Carbon Dioxide 32.4 H Anion Gap 7 BUN 67 H Creatinine 1.27 Estimated GFR 68 L POC Glucose 146 H Random Glucose 171 H Calcium 7.5 L Phosphorus 4.7 D Magnesium 2.4 Total Bilirubin 0.6 AST 22 ALT 45 Alkaline Phosphatase 50 Total Protein 5.9 L D Albumin 2.8 L Urine Color Urine Clarity Urine pH Ur Specific [place] Urine Protein Urine Glucose (UA) Urine Ketones Urine Occult Blood Urine Nitrate Urine Bilirubin Urine Urobilinogen Ur Leukocyte Esterase Urine RBC Urine WBC Urine Mucus Micro UA Comment Ur Microscopic Review Urine Culture Comments 07/02/18 07/02/18 07/02/18 08:44 10:50 10:50 WBC RBC Hgb Hct MCV MCH MCHC RDW Plt Count MPV Prelim Diff (Auto) Neut % (Auto) Lymph % (Auto) [place] % (Auto) Eos % (Auto) Baso % (Auto) Neut # (Auto) Lymph # (Auto) [place] # (Auto) Eos # (Auto) Baso # (Auto) WBC Differential Seg Neuts % (Manual) Band Neuts % (Manual) Monocytes % (Manual) Abs Neuts (Manual) Differential Comment Platelet Estimate Platelet Morphology Smear Path Review APTT 38.9 H Fibrinogen 278 Puncture Site Patient Temperature O2 Saturation ABG pH ABG pCO2 ABG pO2 ABG HCO3 ABG O2 Content ABG Base Excess ABG Methemoglobin [place] Test Hemoglobin Carboxyhemoglobin O2 Delivery Device Vent Setting Inspired O2 Critical Value Sodium Potassium Chloride Carbon Dioxide Anion Gap BUN Creatinine Estimated GFR POC Glucose Random Glucose Calcium Phosphorus Magnesium Total Bilirubin AST ALT Alkaline Phosphatase Total Protein Albumin Urine Color Urine Clarity Urine pH Ur Specific [place] Urine Protein Urine Glucose (UA) Urine Ketones Urine Occult Blood Urine Nitrate Urine Bilirubin Urine Urobilinogen Ur Leukocyte Esterase Urine RBC Urine WBC Urine Mucus Micro UA Comment Ur Microscopic Review Urine Culture Comments 07/02/18 11:31 WBC RBC Hgb Hct MCV MCH MCHC RDW Plt Count MPV Prelim Diff (Auto) Neut % (Auto) Lymph % (Auto) [place] % (Auto) Eos % (Auto) Baso % (Auto) Neut # (Auto) Lymph # (Auto) [place] # (Auto) Eos # (Auto) Baso # (Auto) WBC Differential Seg Neuts % (Manual) Band Neuts % (Manual) Monocytes % (Manual) Abs Neuts (Manual) Differential Comment Platelet Estimate Platelet Morphology Smear Path Review APTT Fibrinogen Puncture Site Patient Temperature O2 Saturation ABG pH ABG pCO2 ABG pO2 ABG HCO3 ABG O2 Content ABG Base Excess ABG Methemoglobin [place] Test Hemoglobin Carboxyhemoglobin O2 Delivery Device Vent Setting Inspired O2 Critical Value Sodium Potassium Chloride Carbon Dioxide Anion Gap BUN Creatinine Estimated GFR POC Glucose 188 H Random Glucose Calcium Phosphorus Magnesium Total Bilirubin AST ALT Alkaline Phosphatase Total Protein Albumin Urine Color Urine Clarity Urine pH Ur Specific [place] Urine Protein Urine Glucose (UA) Urine Ketones Urine Occult Blood Urine Nitrate Urine Bilirubin Urine Urobilinogen Ur Leukocyte Esterase Urine RBC Urine WBC Urine Mucus Micro UA Comment Ur Microscopic Review Urine Culture Comments - Imaging Impressions Venous Doppler Study 07/01/18 00:00 CONCLUSION: 1. The study is negative for bilateral lower extremity deep venous thrombosis. Chest X-Ray 07/01/18 20:41 CONCLUSION: Negative examination. Chest CTA 07/02/18 00:00 CONCLUSION: 1. No pulmonary embolus. 2. Diffuse but basilar predominant bilateral airspace disease. 3. Endotracheal and endobronchial secretions are demonstrated. 4. Moderate emphysema. 5. Left ventricular hypertrophy. Venous Doppler Study 07/02/18 00:00 CONCLUSION: 1. Limited, no evidence for thrombosis. Chest X-Ray 07/02/18 04:04 CONCLUSION: 1. Interim intubation and nasogastric tube placement as above. 2. Mild bibasilar atelectasis has developed. Abdomen/Pelvis CT 07/02/18 04:20 CONCLUSION: Colonic distention most likely representing moderate adynamic ileus. However, distal sigmoid colon is decompressed and a sigmoid stricture is conceivable but considered less likely. Apparent mild proctitis. Clinical surveillance and follow-up CT recommended. <Lucy Faulkner - Last Filed: 07/02/18 13:26> - Labs CBC & Chem 7: 07/02/18 05:42 07/02/18 05:42 Laboratory Results - last 24 hr 07/01/18 07/01/18 07/01/18 16:20 17:52 19:37 WBC RBC Hgb Hct MCV MCH MCHC RDW Plt Count MPV Prelim Diff (Auto) Neut % (Auto) Lymph % (Auto) [place] % (Auto) Eos % (Auto) Baso % (Auto) Neut # (Auto) Lymph # (Auto) [place] # (Auto) Eos # (Auto) Baso # (Auto) WBC Differential Seg Neuts % (Manual) Band Neuts % (Manual) Monocytes % (Manual) Abs Neuts (Manual) Differential Comment Platelet Estimate Platelet Morphology Smear Path Review Haptoglobin APTT Fibrinogen Puncture Site Patient Temperature O2 Saturation ABG pH ABG pCO2 ABG pO2 ABG HCO3 ABG O2 Content ABG Base Excess ABG Methemoglobin [place] Test Hemoglobin Carboxyhemoglobin O2 Delivery Device Vent Setting Inspired O2 Critical Value Sodium Potassium Chloride Carbon Dioxide Anion Gap BUN Creatinine Estimated GFR POC Glucose 255 H 238 H Random Glucose Lactic Acid Calcium Phosphorus Magnesium Total Bilirubin AST ALT Alkaline Phosphatase Lactate Dehydrogenase Total Protein Albumin Vitamin B12 Folate Urine Color Yellow Urine Clarity Clear Urine pH 5.0 Ur Specific [place] 1.015 Urine Protein 30 H Urine Glucose (UA) 50 Urine Ketones Negative Urine Occult Blood Small H Urine Nitrate Negative Urine Bilirubin Negative Urine Urobilinogen Less than 2 Ur Leukocyte Esterase Negative Urine RBC 1 Urine WBC 1 Urine Mucus Few H Micro UA Comment Culture not ind Ur Microscopic Review Not Reportable Urine Culture Comments Culture not ind 07/01/18 07/01/18 07/01/18 20:39 22:18 23:06 WBC RBC Hgb Hct MCV MCH MCHC RDW Plt Count MPV Prelim Diff (Auto) Neut % (Auto) Lymph % (Auto) [place] % (Auto) Eos % (Auto) Baso % (Auto) Neut # (Auto) Lymph # (Auto) [place] # (Auto) Eos # (Auto) Baso # (Auto) WBC Differential Seg Neuts % (Manual) Band Neuts % (Manual) Monocytes % (Manual) Abs Neuts (Manual) Differential Comment Platelet Estimate Platelet Morphology Smear Path Review Haptoglobin APTT Fibrinogen Puncture Site Right radial Right radial Patient Temperature 98.6 98.6 O2 Saturation 77 L* 88 L* ABG pH 7.26 L* 7.31 L ABG pCO2 72 H* 63 H* ABG pO2 52 L* 67 ABG HCO3 31 H 31 H ABG O2 Content 11.8 L 13.6 ABG Base Excess 4.3 H 4.9 H ABG Methemoglobin 1.6 1.7 Raymon Test Present Present Hemoglobin 10.9 L 11.0 L Carboxyhemoglobin 0.9 0.9 O2 Delivery Device Ventimask Bipap Vent Setting 12/5 Inspired O2 50 70 Critical Value Yes Yes Sodium Potassium Chloride Carbon Dioxide Anion Gap BUN Creatinine Estimated GFR POC Glucose 174 H Random Glucose Lactic Acid Calcium Phosphorus Magnesium Total Bilirubin AST ALT Alkaline Phosphatase Lactate Dehydrogenase Total Protein Albumin Vitamin B12 Folate Urine Color Urine Clarity Urine pH Ur Specific [place] Urine Protein Urine Glucose (UA) Urine Ketones Urine Occult Blood Urine Nitrate Urine Bilirubin Urine Urobilinogen Ur Leukocyte Esterase Urine RBC Urine WBC Urine Mucus Micro UA Comment Ur Microscopic Review Urine Culture Comments 07/02/18 07/02/18 07/02/18 03:06 03:27 05:28 WBC RBC Hgb Hct MCV MCH MCHC RDW Plt Count MPV Prelim Diff (Auto) Neut % (Auto) Lymph % (Auto) [place] % (Auto) Eos % (Auto) Baso % (Auto) Neut # (Auto) Lymph # (Auto) [place] # (Auto) Eos # (Auto) Baso # (Auto) WBC Differential Seg Neuts % (Manual) Band Neuts % (Manual) Monocytes % (Manual) Abs Neuts (Manual) Differential Comment Platelet Estimate Platelet Morphology Smear Path Review Haptoglobin APTT Fibrinogen Puncture Site Right radial Right radial Patient Temperature 98.6 98.6 O2 Saturation 90 97 ABG pH 7.32 L 7.27 L* ABG pCO2 61 H* 65 H* ABG pO2 70 306 H ABG HCO3 30 H 29 H ABG O2 Content 14.0 14.6 ABG Base Excess 4.4 H 2.6 H ABG Methemoglobin 1.6 1.6 Raymon Test Present + Hemoglobin 11.0 L 10.1 L Carboxyhemoglobin 0.6 0.4 O2 Delivery Device Bipap Ventilator Vent Setting Prvc/ac 16 vt 550 Inspired O2 90 100 Critical Value Yes Yes Sodium Potassium Chloride Carbon Dioxide Anion Gap BUN Creatinine Estimated GFR POC Glucose 176 H Random Glucose Lactic Acid Calcium Phosphorus Magnesium Total Bilirubin AST ALT Alkaline Phosphatase Lactate Dehydrogenase Total Protein Albumin Vitamin B12 Folate Urine Color Urine Clarity Urine pH Ur Specific [place] Urine Protein Urine Glucose (UA) Urine Ketones Urine Occult Blood Urine Nitrate Urine Bilirubin Urine Urobilinogen Ur Leukocyte Esterase Urine RBC Urine WBC Urine Mucus Micro UA Comment Ur Microscopic Review Urine Culture Comments 07/02/18 07/02/18 07/02/18 05:42 05:42 07:50 WBC 32.9 H RBC 3.39 L Hgb 10.0 L D Hct 31.5 L MCV 92.9 D MCH 29.4 MCHC 31.6 L RDW 13.7 Plt Count 65 L MPV 11.5 H Prelim Diff (Auto) Slide review pending Neut % (Auto) 96.5 H Lymph % (Auto) 0.7 L [place] % (Auto) 2.7 Eos % (Auto) 0.0 Baso % (Auto) 0.1 Neut # (Auto) 31.8 H Lymph # (Auto) 0.2 L [place] # (Auto) 0.9 Eos # (Auto) 0.0 Baso # (Auto) 0.0 WBC Differential Manual diff final Seg Neuts % (Manual) 95 H Band Neuts % (Manual) 4 Monocytes % (Manual) 1 Abs Neuts (Manual) 32.6 H Differential Comment . Platelet Estimate Low L Platelet Morphology Enlarged H Smear Path Review Haptoglobin APTT Fibrinogen Puncture Site Patient Temperature O2 Saturation ABG pH ABG pCO2 ABG pO2 ABG HCO3 ABG O2 Content ABG Base Excess ABG Methemoglobin Raymon Test Hemoglobin Carboxyhemoglobin O2 Delivery Device Vent Setting Inspired O2 Critical Value Sodium 149 H Potassium 4.8 Chloride 110 H Carbon Dioxide 32.4 H Anion Gap 7 BUN 67 H Creatinine 1.27 Estimated GFR 68 L POC Glucose 146 H Random Glucose 171 H Lactic Acid Calcium 7.5 L Phosphorus 4.7 D Magnesium 2.4 Total Bilirubin 0.6 AST 22 ALT 45 Alkaline Phosphatase 50 Lactate Dehydrogenase Total Protein 5.9 L D Albumin 2.8 L Vitamin B12 Folate Urine Color Urine Clarity Urine pH Ur Specific [place] Urine Protein Urine Glucose (UA) Urine Ketones Urine Occult Blood Urine Nitrate Urine Bilirubin Urine Urobilinogen Ur Leukocyte Esterase Urine RBC Urine WBC Urine Mucus Micro UA Comment Ur Microscopic Review Urine Culture Comments 07/02/18 07/02/18 07/02/18 08:44 10:50 10:50 WBC RBC Hgb Hct MCV MCH MCHC RDW Plt Count MPV Prelim Diff (Auto) Neut % (Auto) Lymph % (Auto) [place] % (Auto) Eos % (Auto) Baso % (Auto) Neut # (Auto) Lymph # (Auto) [place] # (Auto) Eos # (Auto) Baso # (Auto) WBC Differential Seg Neuts % (Manual) Band Neuts % (Manual) Monocytes % (Manual) Abs Neuts (Manual) Differential Comment Platelet Estimate Platelet Morphology Smear Path Review Haptoglobin APTT 38.9 H Fibrinogen 278 Puncture Site Patient Temperature O2 Saturation ABG pH ABG pCO2 ABG pO2 ABG HCO3 ABG O2 Content ABG Base Excess ABG Methemoglobin Raymon Test Hemoglobin Carboxyhemoglobin O2 Delivery Device Vent Setting Inspired O2 Critical Value Sodium Potassium Chloride Carbon Dioxide Anion Gap BUN Creatinine Estimated GFR POC Glucose Random Glucose Lactic Acid Calcium Phosphorus Magnesium Total Bilirubin AST ALT Alkaline Phosphatase Lactate Dehydrogenase Total Protein Albumin Vitamin B12 Folate Urine Color Urine Clarity Urine pH Ur Specific [place] Urine Protein Urine Glucose (UA) Urine Ketones Urine Occult Blood Urine Nitrate Urine Bilirubin Urine Urobilinogen Ur Leukocyte Esterase Urine RBC Urine WBC Urine Mucus Micro UA Comment Ur Microscopic Review Urine Culture Comments 07/02/18 07/02/18 07/02/18 11:31 13:27 13:27 WBC RBC Hgb Hct MCV MCH MCHC RDW Plt Count MPV Prelim Diff (Auto) Neut % (Auto) Lymph % (Auto) [place] % (Auto) Eos % (Auto) Baso % (Auto) Neut # (Auto) Lymph # (Auto) [place] # (Auto) Eos # (Auto) Baso # (Auto) WBC Differential Seg Neuts % (Manual) Band Neuts % (Manual) Monocytes % (Manual) Abs Neuts (Manual) Differential Comment Platelet Estimate Platelet Morphology Smear Path Review Haptoglobin 98 APTT Fibrinogen Puncture Site Patient Temperature O2 Saturation ABG pH ABG pCO2 ABG pO2 ABG HCO3 ABG O2 Content ABG Base Excess ABG Methemoglobin Raymon Test Hemoglobin Carboxyhemoglobin O2 Delivery Device Vent Setting Inspired O2 Critical Value Sodium Potassium Chloride Carbon Dioxide Anion Gap BUN Creatinine Estimated GFR POC Glucose 188 H Random Glucose Lactic Acid 2.6 H Calcium Phosphorus Magnesium Total Bilirubin AST ALT Alkaline Phosphatase Lactate Dehydrogenase 328 H Total Protein Albumin Vitamin B12 855 Folate 12.1 Urine Color Urine Clarity Urine pH Ur Specific [place] Urine Protein Urine Glucose (UA) Urine Ketones Urine Occult Blood Urine Nitrate Urine Bilirubin Urine Urobilinogen Ur Leukocyte Esterase Urine RBC Urine WBC Urine Mucus Micro UA Comment Ur Microscopic Review Urine Culture Comments 07/02/18 13:27 WBC RBC Hgb Hct MCV MCH MCHC RDW Plt Count MPV Prelim Diff (Auto) Neut % (Auto) Lymph % (Auto) [place] % (Auto) Eos % (Auto) Baso % (Auto) Neut # (Auto) Lymph # (Auto) [place] # (Auto) Eos # (Auto) Baso # (Auto) WBC Differential Seg Neuts % (Manual) Band Neuts % (Manual) Monocytes % (Manual) Abs Neuts (Manual) Differential Comment Platelet Estimate Platelet Morphology Smear Path Review Haptoglobin APTT 50.1 H D Fibrinogen Puncture Site Patient Temperature O2 Saturation ABG pH ABG pCO2 ABG pO2 ABG HCO3 ABG O2 Content ABG Base Excess ABG Methemoglobin Raymon Test Hemoglobin Carboxyhemoglobin O2 Delivery Device Vent Setting Inspired O2 Critical Value Sodium Potassium Chloride Carbon Dioxide Anion Gap BUN Creatinine Estimated GFR POC Glucose Random Glucose Lactic Acid Calcium Phosphorus Magnesium Total Bilirubin AST ALT Alkaline Phosphatase Lactate Dehydrogenase Total Protein Albumin Vitamin B12 Folate Urine Color Urine Clarity Urine pH Ur Specific [place] Urine Protein Urine Glucose (UA) Urine Ketones Urine Occult Blood Urine Nitrate Urine Bilirubin Urine Urobilinogen Ur Leukocyte Esterase Urine RBC Urine WBC Urine Mucus Micro UA Comment Ur Microscopic Review Urine Culture Comments - Imaging Impressions Venous Doppler Study 07/01/18 00:00 CONCLUSION: 1. The study is negative for bilateral lower extremity deep venous thrombosis. Chest X-Ray 07/01/18 20:41 CONCLUSION: Negative examination. Chest CTA 07/02/18 00:00 CONCLUSION: 1. No pulmonary embolus. 2. Diffuse but basilar predominant bilateral airspace disease. 3. Endotracheal and endobronchial secretions are demonstrated. 4. Moderate emphysema. 5. Left ventricular hypertrophy. Venous Doppler Study 07/02/18 00:00 CONCLUSION: 1. Limited, no evidence for thrombosis. Chest X-Ray 07/02/18 04:04 CONCLUSION: 1. Interim intubation and nasogastric tube placement as above. 2. Mild bibasilar atelectasis has developed. Abdomen/Pelvis CT 07/02/18 04:20 CONCLUSION: Colonic distention most likely representing moderate adynamic ileus. However, distal sigmoid colon is decompressed and a sigmoid stricture is conceivable but considered less likely. Apparent mild proctitis. Clinical surveillance and follow-up CT recommended. <Richard Chauhan - Last Filed: 07/02/18 15:43> Assessment and Plan - Plan Aerophagia, possibly secondary to patient's end-stage COPD and air gasping as well as his increased agitation and anxiety Onset of symptoms approximately 6 months ago which have worsened over the past 2 -month. Abdomen is round semifirm and very tympanic. No recent EGD or colonoscopy, colonoscopy in the past but unknown time. Anemia, hemoglobin initially 13.6 trending down now 11.9 no obvious bleeding could be related to chronic disease versus inflammation versus ulcer disease. 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 Also noted changes and patient's abdomen including colonic ileus. CT scan done on 07/02 does show positive colonic distention and moderate adynamic ileus, mild proctitis, and sigmoid colon is decompressed which could be conceivably a stricture but less likely. Patient is now in the intensive care setting currently on ventilator management and generalized condition has weakened. EGD done on 06/25/[address] Damon which was normal. Labs reviewed which includes WBC count 32.9 which could be related to steroids, hemoglobin 10., anemic probable chronic but no obvious bleeding, decreased platelet count 65, bilirubin and LFTs are normal. Patient does have generalized abdominal pain to palpation but goes back off to sleep with sedation. NG tube is connected to low intermittent suction with dark brown bilious fluids noted. Abdomen continues to be moderately distended and tympanic, but very hypoactive minimal bowel sounds noted. Patient currently critically ill, will consider any necessary procedures based on patient's symptoms. Spoke to Dr. Chauhan who is considering decompressive colonoscopy due to patient's symptoms. Staff is attempting to contact sister who is POA , who has now called back and given consent for procedure patient appears stable for procedure in the intensive care setting, seen per Dr. Hugo today, note patient is on IV drip for HIT , Argatroban. Plan prep with fleets enemas x2, spoke to nurse Jose Manuel. Moderate adynamic ileus, NG tube to low intermittent suction Abdominal distention, continue to monitor and evaluate Plan Diet continue NG tube to low intermittent suction for now Consent for decompressive colonoscopy today, sister called back and gave consent to [facility] nurse. Fleets enemas x2 prep Monitor labs Flagyl IV, cefepime, Pepcid and low-dose PPI Steroids Further recommendations to follow Patient was seen per myself and Dr. Chauhan, note was written on his behalf <Lucy Faulkner - Last Filed: 07/02/18 13:26> - Plan Patient was seen and examined, agree with above note, we will plan on doing colonoscopy today with possible decompression or stool disimpaction <Richard Chauhan - Last Filed: 07/02/18 15:43>
[2018-07-02] MEDS ORDERED: Sod Phosphate/Sod Biphosphate (Adult) Enema 133 ML Bottle RECTAL ONE ×2 (13:35→13:37)
[2018-07-02] MEDS ORDERED: Norepinephrine Inj 16 MG in Sodium Chlor 0.9% Inj 234 ML IV.CONT PRN (14:15)
[2018-07-02 14:35] LABS: Folate 12.1 ng/mL (3.1-17.5)
--- NOTE | 2018-07-02 14:51 | P.PCN ---
Date of procedure: 07/02/18 Pre-op diagnosis: Acute respiratory failure/hypertension Post-op diagnosis: same Procedure: DATE: 07/02/2018 CENTRAL LINE PLACEMENT: Left internal jugular vein. Ultrasound-guided INDICATION: Central venous access CONSENT Informed consent for procedure was obtained from healthcare proxy/sister. DESCRIPTION OF THE PROCEDURE The patient was placed in supine position. The skin was cleansed with Chloraprep. Additional barrier precautions included large sterile drape, sterile gloves, sterile gown, face mask, and hat. 1 % lidocaine was used for local anesthesia. Under direct ultrasound guidance and on initial attempt, the vein was accessed with an introducer needle. The guide wire was advanced and the tract was dilated. Using Seldinger technique a 7 [place] 20 cm antimicrobial coated triple-lumen catheter was advanced to a depth of 20 centimeters. The guide wire was removed. All ports had good return of dark venous blood and flushed easily with saline. The central line was secured with 2.0 silk. A sterile dressing with antibiotic disc was applied. StatLock do not adhere to skin. ESTIMATED BLOOD LOSS: Minimal COMPLICATIONS: No apparent complications. STAT chest x-ray pending at time of dictation
--- NOTE | 2018-07-02 14:59 | P.PNCC ---
Subjective Subjective Remarks/Hospital Course: Mr. Curry is a 73-year-old -[place] male with past medical history significant for COPD on 3 L nasal cannula, hypertension, hyperlipidemia and anxiety who was admitted to the hospitalist service on 06/19/2018 for worsening shortness of breath due to COPD exacerbation. He was treated with IV Solu- Medrol, IV antibiotics, breathing treatments gradually improved. Patient was also complaining about dyspepsia and underwent EGD by GI yesterday. Per report the EGD was normal but patient developed worsening shortness of breath and COPD exacerbation postprocedure, possibly from aspiration after sedated. Two ABGs done yesterday showed hypercapnic respiratory failure second 1 was on BiPAP and this was improved with pH 7.3 with PCO2 of 74. Patient remained on BiPAP overnight however was noticed to be lethargic today a.m., stat ABG showed pH of 7.21 PCO2 110 PO2 88 while on BiPAP. Patient was lethargic intermittently dozing off due to CO2 narcosis. Critical care medicine was consulted and I immediately evaluated the patient. Patient had obviously failed BiPAP I proceeded with endotracheal intubation placed on mechanical ventilation. Postintubation I have ordered single dose of Solu-Medrol 125 mg x1 continue Solu -Medrol 60 every 8, discontinue ceftriaxone and start cefepime 2 g IV every 8 hours continue azithromycin. Add budesonide inhaled, placed on scheduled DuoNeb every 4 hours and as needed. 06/27: Patient was intubated yesterday for severe hypercapnic respiratory failure. Currently remains intubated sedated and intubated remains diminished bilaterally. Heavily sedated for ventilator synchrony 06/28: Urine output significantly improved with fluid resuscitation. Creat down trending now 2 from 2.3, UO >3.3 L. Remains intubated sedated. Will initiate daily sedation vacation and CPAP trials 06/29: More awake today tolerating CPAP trials intermittently follows commands but gets agitated/frustrated fast. Urine output remains excellent creatinine 1.4. However sodium increasing 158 today. Night purification supervisor had changed fluid to D5 W for free water replacement. Due to hypoglycemia will change to quarter normal saline at 150 mL/h repeat CMP in the afternoon 06/30 Patient was extubated yesterday. Awake 07/01 Patient is lying in bed in NAD. T: 100.5 SUBJECTIVE: 07/02: Intubated early this morning due to acute hypoxic respiratory failure. Central line placed due to hypotension. Plan for GI perform endoscopic decompression of this large bowel today. Arousable and does follow commands. Placed on her gastric band Objective Vital Signs / I&O: Vital Signs 07/01/18 15:00 07/01/18 15:30 07/01/18 16:00 Temperature 99.7 F H Pulse Rate 110 H 113 H 111 H Respiratory Rate 28 H 28 H 28 H Blood Pressure 131/80 132/71 135/63 Pulse Oximetry 92 L 95 93 L 07/01/18 16:30 07/01/18 17:00 07/01/18 17:30 Temperature Pulse Rate 112 H 112 H 112 H Respiratory Rate 27 H 25 H 27 H Blood Pressure 124/69 120/71 123/78 Pulse Oximetry 91 L 98 100 07/01/18 18:00 07/01/18 18:01 07/01/18 18:30 Temperature Pulse Rate 105 H 108 H 109 H Respiratory Rate 29 H 28 H 28 H Blood Pressure 156/80 H 137/81 Pulse Oximetry 87 L 89 L 90 L 07/01/18 19:00 07/01/18 19:31 07/01/18 20:00 Temperature Pulse Rate 110 H 107 H 105 H Respiratory Rate 23 26 H 26 H Blood Pressure 126/85 138/66 137/65 Pulse Oximetry 95 97 86 L 07/01/18 20:30 07/01/18 20:33 07/01/18 21:00 Temperature 99.1 F Pulse Rate 102 H 90 112 H Respiratory Rate 25 H 28 H 23 Blood Pressure 138/63 115/80 Pulse Oximetry 85 L 91 L 07/01/18 21:16 07/01/18 21:30 07/01/18 22:00 Temperature Pulse Rate 111 H 108 H Respiratory Rate 32 H 31 H Blood Pressure 122/71 Pulse Oximetry 92 L 88 L 92 L 07/01/18 22:01 07/01/18 22:30 07/01/18 23:05 Temperature Pulse Rate 109 H 108 H 103 H Respiratory Rate 29 H 31 H 25 H Blood Pressure 134/60 123/70 131/98 H Pulse Oximetry 91 L 92 L 92 L 07/01/18 23:30 07/02/18 00:00 07/02/18 00:23 Temperature 98.4 F Pulse Rate 104 H 99 H 104 H Respiratory Rate 26 H 28 H 22 Blood Pressure 138/70 135/76 Pulse Oximetry 90 L 82 L 94 L 07/02/18 00:31 07/02/18 01:00 07/02/18 01:30 Temperature Pulse Rate 109 H 106 H 105 H Respiratory Rate 29 H 28 H 23 Blood Pressure 135/77 133/70 118/78 Pulse Oximetry 91 L 93 L 97 07/02/18 02:00 07/02/18 02:12 07/02/18 02:31 Temperature Pulse Rate 103 H 106 H 106 H Respiratory Rate 23 24 28 H Blood Pressure 141/83 H 121/77 Pulse Oximetry 98 98 94 L 07/02/18 03:00 07/02/18 03:30 07/02/18 04:00 Temperature Pulse Rate 105 H 104 H 101 H Respiratory Rate 27 H 22 12 Blood Pressure 114/75 107/79 Pulse Oximetry 92 L 93 L 07/02/18 04:06 07/02/18 04:15 07/02/18 04:20 Temperature Pulse Rate 111 H 104 H Respiratory Rate 12 11 L 16 Blood Pressure 103/55 L 102/59 L Pulse Oximetry 100 100 100 07/02/18 04:30 07/02/18 04:31 07/02/18 04:45 Temperature Pulse Rate 105 H 101 H Respiratory Rate 27 H 32 H Blood Pressure 100/59 L 84/55 L Pulse Oximetry 100 88 L 98 07/02/18 04:50 07/02/18 04:58 07/02/18 05:00 Temperature Pulse Rate 96 H 93 H 93 H Respiratory Rate 41 H 19 24 Blood Pressure 66/46 L 96/61 L 98/60 L Pulse Oximetry 100 100 07/02/18 05:15 07/02/18 05:23 07/02/18 05:30 Temperature Pulse Rate 95 H 97 H 99 H Respiratory Rate 16 16 16 Blood Pressure 112/70 92/67 L Pulse Oximetry 100 100 07/02/18 05:52 07/02/18 06:00 07/02/18 06:01 Temperature Pulse Rate 97 H 99 H 99 H Respiratory Rate 16 18 18 Blood Pressure 102/61 121/53 L Pulse Oximetry 100 100 100 07/02/18 06:15 07/02/18 06:35 07/02/18 06:45 Temperature Pulse Rate 99 H 98 H 99 H Respiratory Rate 18 18 18 Blood Pressure 108/58 L 93/69 L 91/70 L Pulse Oximetry 100 95 96 07/02/18 07:00 07/02/18 07:01 07/02/18 07:15 Temperature Pulse Rate 102 H 100 H 98 H Respiratory Rate 18 19 21 Blood Pressure 129/65 87/60 L Pulse Oximetry 96 96 07/02/18 07:36 07/02/18 07:45 07/02/18 07:56 Temperature Pulse Rate 98 H 102 H Respiratory Rate 19 18 18 Blood Pressure 127/84 119/68 Pulse Oximetry 94 L 97 97 07/02/18 08:00 07/02/18 08:15 07/02/18 09:31 Temperature 98.4 F Pulse Rate 103 H 104 H 101 H Respiratory Rate 18 18 22 Blood Pressure 101/58 L 84/63 L 104/61 Pulse Oximetry 96 97 100 07/02/18 09:46 07/02/18 10:00 07/02/18 10:23 Temperature Pulse Rate 99 H 97 H 97 H Respiratory Rate 19 18 18 Blood Pressure 97/53 L 79/53 L Pulse Oximetry 100 99 94 L 07/02/18 10:51 07/02/18 11:00 07/02/18 11:31 Temperature Pulse Rate 93 H 93 H 99 H Respiratory Rate 19 18 26 H Blood Pressure 117/76 102/70 67/42 L Pulse Oximetry 99 99 100 07/02/18 11:34 07/02/18 11:35 07/02/18 12:00 Temperature 98.5 F Pulse Rate 97 H 97 H 100 H Respiratory Rate 27 H 24 19 Blood Pressure 65/45 L 115/74 102/73 Pulse Oximetry 100 100 100 07/02/18 12:30 07/02/18 13:01 Temperature Pulse Rate 97 H Respiratory Rate 18 18 Blood Pressure Pulse Oximetry 100 Intake & Output 07/01/18 07/02/18 07/02/18 18:59 06:59 18:59 Intake Total 1070 / 1070 1780 / 1780 Output Total 1000 / 1000 650 / 650 Balance 70 / 70 1130 / 1130 Weight 92 kg Intake: IV 350 / 350 1300 / 1300 D5W Inj 1,000 ML @ 75 mls/hr IV 1000 / 1000 .CONT .[id number] COUNTS INCLUDE 234 BEDS AT [facility] Rx#:[id number] Azithromycin Inj 250 MG In NS 250 / 250 Inj 250 ML @ 250 mls/hr IV.SIG Q24H [facility]F Rx#:[id number] Maxipime Inj 2,000 MG In NS Inj 100 / 100 200 / 200 100 ML @ 200 mls/hr IV.SIG Q8H [facility] Rx#:[id number] Flagyl 500 MG Inj 100 ML @ 100 100 / 100 mls/hr IV.SIG Q8H [facility]OL[facility] Rx#: [id number] Oral 720 / 720 480 / 480 Output: Urine 650 / 650 350 / 350 Urine Amount (Catheter) 350 / 350 Indwelling Urethral Catheter 350 / 350 Gastric Drainage 300 / 300 Left Nare Nasogastric Tube 300 / 300 Other: # Incontinent Voids 4 Date of Last Bowel Movement 06/28/18 06/28/18 Result Diagrams: 07/02/18 05:42 07/02/18 05:42 Other Results: Microbiology 06/26/18 10:10 Sputum - Endotracheal Gram Stain - Final 06/26/18 10:10 Sputum - Endotracheal Sputum Culture - Final Light growth normal respiratory justyn Imaging: Chest X-Ray 06/19/18 20:38 CONCLUSION: No evidence of acute cardiopulmonary disease. Abdomen Ultrasound 06/21/18 00:00 CONCLUSION: 1. No ascites is identified within the abdomen. Abdomen X-Ray 06/21/18 00:00 CONCLUSION: No acute findings. Mild constipation. Chest X-Ray 06/23/18 00:00 CONCLUSION: 1. No acute abnormality or significant interval change. Abdomen/Pelvis CT 06/24/18 00:00 CONCLUSION: 1. Benign appearing right adrenal mass. 2. No acute CT findings in the abdomen or pelvis. Chest X-Ray 06/25/18 00:00 CONCLUSION: Suspected mild atelectasis or consolidation at the medial right base. Chest X-Ray 06/26/18 00:00 CONCLUSION: 1. Endotracheal tube is appropriately positioned above the christy. 2. Nasogastric tube traverses the GE junction and is curled in the gastric lumen. 3. Lungs are clear. Abdomen X-Ray 06/26/18 09:21 CONCLUSION: 1. Nonobstructive bowel gas pattern without pneumoperitoneum. 2. Nasogastric tube is curled in the expected location of the gastric body. I believe the portions of the tube identified over the heart shadow is probably projectional as there is no evidence of a significant hiatal hernia on the most recent CT of the abdomen. Chest X-Ray 06/26/18 15:37 CONCLUSION: 1. Lungs remain clear. 2. Interval placement of a right IJ central venous catheter with the tip projecting over the central venous system. No pneumothorax. 3. Endotracheal and nasogastric tubes remain appropriately positioned. Abdomen/Bladder Ultrasound 06/28/18 00:00 CONCLUSION: 1. Echogenic kidneys characteristic of medical renal disease. No hydronephrosis. Bladder decompressed by Moreno Chest X-Ray 06/28/18 06:00 CONCLUSION: The lungs are clear. Lines and tubes stable. Chest X-Ray 06/29/18 06:00 CONCLUSION: The lungs are clear. Lines and tubes stable. Venous Doppler Study 07/01/18 00:00 CONCLUSION: 1. The study is negative for bilateral lower extremity deep venous thrombosis. Chest X-Ray 07/01/18 20:41 CONCLUSION: Negative examination. Chest CTA 07/02/18 00:00 CONCLUSION: 1. No pulmonary embolus. 2. Diffuse but basilar predominant bilateral airspace disease. 3. Endotracheal and endobronchial secretions are demonstrated. 4. Moderate emphysema. 5. Left ventricular hypertrophy. Venous Doppler Study 07/02/18 00:00 CONCLUSION: 1. Limited, no evidence for thrombosis. Chest X-Ray 07/02/18 04:04 CONCLUSION: 1. Interim intubation and nasogastric tube placement as above. 2. Mild bibasilar atelectasis has developed. Abdomen/Pelvis CT 07/02/18 04:20 CONCLUSION: Colonic distention most likely representing moderate adynamic ileus. However, distal sigmoid colon is decompressed and a sigmoid stricture is conceivable but considered less likely. Apparent mild proctitis. Clinical surveillance and follow-up CT recommended. Objective Remarks: GENERAL: Patient is 73 yo lying in bed in NAD SKIN: Warm and dry. HEAD: Normocephalic. EYES: No scleral icterus. No injection or drainage. NECK: Supple, trachea midline. No JVD or lymphadenopathy. CARDIOVASCULAR: Regular rate and rhythm without murmurs, gallops, or rubs. RESPIRATORY: Distant breath sounds. Few crackles patient bases. Clears with suctioning. GASTROINTESTINAL: Abdomen soft, non-tender, nondistended. MUSCULOSKELETAL: No cyanosis, or edema. Neuro: Arousable the ventilator and follows command. Assessment and Plan - Assessment and Plan Plan: ASSESSMENT: Acute hypercapnic respiratory failure Acute COPD exacerbation Altered mental status due to CO2 narcosis Acute kidney injury/failure Hypertension Hypernatremia Leukocytosis Hyperglycemia COPD Hyponatremia PLAN: NEURO: -Monitor neuro status, -On propofol drip for sedation/analgesia while intubated. Goal of RA SS of -2. Daily sedation vacation RESP: -Continue with oxygen keep sats >92% -Extubated 06/29. Reintubated 07/02 -DuoNeb every 4 hours scheduled and as needed -Decrease IV Solu-Medrol 40 mg Q12 -Inhaled budesonide -Continue cefepime continue azithromycin -BIPAP PRN fo resp distress, pulm is following CV: - Monitor HR and BP keep MAP>65mmHg -Continue with BP meds, Cardizem 60mg Q6,, Hydralazine 50mg TID GI: -N.p.o. status. -IV famotidine -GI for decompression today FEN/: -Monitor renal function, I/O's, electrolytes replacement per protocol. -Place on one quarter normal saline at 100 ml/hr, monitor sodium level. ID: -Antibiotics with cefepime. Monitor for signs of infections ( Fever, WBC) -Sputum cultures-neg to date -Will Panculture in setting of worsening leukocytosis and low grade fevers( Blood, sputum, UA with cx if indicated) HEME: -Monitor CBC, coags, Hep PLT is positive. Will check ANNMARIE and consult Hematology. Currently on argatroban drip ENDO: -Electrolyte replacement per protocol -Sliding scale insulin medium scale PROPH: -Bilateral lower extremity SCDs. PPI , pharmacological prophylaxis on hold for worsening thrombocytopenia, PLT<100 -Check Doppler US LE r/o DVT LINES: -Utilize peripheral IVs, Critical care time 35 minutes
--- NOTE | 2018-07-02 15:46 | XR ---
EXAM DATE: 07/02/2018 3:43 PM EDT AGE/SEX: 73 years / Male INDICATIONS: Central line placement. CLINICAL DATA: This is the patient's subsequent encounter. Patient reports that signs and symptoms h ave been present for 4 - 6 days and indicates a pain score of Nonresponsive. MEDICAL/SURGICAL HISTORY: Asthma. Chronic obstructive pulmonary disease. Hypertension. None. COMPARISON: [facility], CHEST 1V SINGLE AP, 07/02/2018. . FINDINGS: ET tube nasogastric tube and central venous catheter in good position. Minimal bibasilar parenchymal changes worse on the left than the right. The heart and pulmonary vascularity are normal. There is no pleural effusion or pneumothorax The portion of the bony skeleton visualized is unremarkable. CONCLUSION: Left IJ line in good position. There is no pneumothorax. Electronically signed by: Jason Angulo MD 07/02/2018 3:45 PM EDT
--- NOTE | 2018-07-02 15:51 | P.PCN ---
Date of procedure: 07/02/18 Procedure: THANK YOU FOR THE REFERRAL Indication; ileus versus sigmoid obstruction Procedure Performed; Colonoscopy diagnostic After informing the patient about procedure and possible complications consent was signed. history and physical were updated. Patient was taken to the procedure room and placed in position. Time out was completed. Adequate sedation was performed by anesthesia provider. Colonoscopy, rectal exam was performed the scope was placed in the rectum advanced under video guide to the transfer: Then the procedure was stopped because of the large amount of stool obstructing the lumen, then the scope withdrawal slowly with examination of the mucosa to the rectum and retro- flexion was performed, the scope was withdrawal without any immediate complication Findings; Colon the sigmoid was clear then there is significant amount of stool in the descending colon transverse colon and part of the sigmoid consistent with stool impaction, I try to disimpaction the patient with fluid as much as I can Rectum normal Recommendations; 1- Supportive care 2- ok to transfer to recovery area then discharge per protocol 3- colonoscopy as needed 4-n.p.o. 5-patient may benefit from 2-3 doses of Relistor 6-GoLYTELY can given slowly to try to help with the stool impaction
[2018-07-02] MEDS ORDERED: PEG 3350/E-Lyte Soln 4000 ML Bottle PO ONE (16:00)
[2018-07-02] MEDS ORDERED: Methylnaltrexone Inj 12 MG/0.6 ML Vial SQ ONE (17:00)
[2018-07-02] MEDS: Artificial Tears Opth Drops 15 ML Bottle EACH EYE SCH (17:31)
--- NOTE | 2018-07-02 18:10 | P.PNPL ---
Subjective Interval history: 73 YOAA male with COPD, 02 dependent Follows at [facility] Admitted with AMS, COPD exac Reintubated has Abd distension had Colonoscopy and decompression NGT to suction On Argatroban drip Physical Exam Vital signs: Vital Signs 07/01/18 18:30 07/01/18 19:00 07/01/18 19:31 Temperature Pulse Rate 109 H 110 H 107 H Respiratory Rate 28 H 23 26 H Blood Pressure 137/81 126/85 138/66 Pulse Oximetry 90 L 95 97 07/01/18 20:00 07/01/18 20:30 07/01/18 20:33 Temperature 99.1 F Pulse Rate 105 H 102 H 90 Respiratory Rate 26 H 25 H 28 H Blood Pressure 137/65 138/63 Pulse Oximetry 86 L 85 L 07/01/18 21:00 07/01/18 21:16 07/01/18 21:30 Temperature Pulse Rate 112 H 111 H Respiratory Rate 23 32 H Blood Pressure 115/80 122/71 Pulse Oximetry 91 L 92 L 88 L 07/01/18 22:00 07/01/18 22:01 07/01/18 22:30 Temperature Pulse Rate 108 H 109 H 108 H Respiratory Rate 31 H 29 H 31 H Blood Pressure 134/60 123/70 Pulse Oximetry 92 L 91 L 92 L 07/01/18 23:05 07/01/18 23:30 07/02/18 00:00 Temperature 98.4 F Pulse Rate 103 H 104 H 99 H Respiratory Rate 25 H 26 H 28 H Blood Pressure 131/98 H 138/70 135/76 Pulse Oximetry 92 L 90 L 82 L 07/02/18 00:23 07/02/18 00:31 07/02/18 01:00 Temperature Pulse Rate 104 H 109 H 106 H Respiratory Rate 22 29 H 28 H Blood Pressure 135/77 133/70 Pulse Oximetry 94 L 91 L 93 L 07/02/18 01:30 07/02/18 02:00 07/02/18 02:12 Temperature Pulse Rate 105 H 103 H 106 H Respiratory Rate 23 23 24 Blood Pressure 118/78 141/83 H Pulse Oximetry 97 98 98 07/02/18 02:31 07/02/18 03:00 07/02/18 03:30 Temperature Pulse Rate 106 H 105 H 104 H Respiratory Rate 28 H 27 H 22 Blood Pressure 121/77 114/75 107/79 Pulse Oximetry 94 L 92 L 93 L 07/02/18 04:00 07/02/18 04:06 07/02/18 04:15 Temperature Pulse Rate 101 H 111 H 104 H Respiratory Rate 12 12 11 L Blood Pressure 103/55 L 102/59 L Pulse Oximetry 100 100 07/02/18 04:20 07/02/18 04:30 07/02/18 04:31 Temperature Pulse Rate 105 H Respiratory Rate 16 27 H Blood Pressure 100/59 L Pulse Oximetry 100 100 88 L 07/02/18 04:45 07/02/18 04:50 07/02/18 04:58 Temperature Pulse Rate 101 H 96 H 93 H Respiratory Rate 32 H 41 H 19 Blood Pressure 84/55 L 66/46 L 96/61 L Pulse Oximetry 98 100 07/02/18 05:00 07/02/18 05:15 07/02/18 05:23 Temperature Pulse Rate 93 H 95 H 97 H Respiratory Rate 24 16 16 Blood Pressure 98/60 L 112/70 Pulse Oximetry 100 100 07/02/18 05:30 07/02/18 05:52 07/02/18 06:00 Temperature Pulse Rate 99 H 97 H 99 H Respiratory Rate 16 16 18 Blood Pressure 92/67 L 102/61 Pulse Oximetry 100 100 100 07/02/18 06:01 07/02/18 06:15 07/02/18 06:35 Temperature Pulse Rate 99 H 99 H 98 H Respiratory Rate 18 18 18 Blood Pressure 121/53 L 108/58 L 93/69 L Pulse Oximetry 100 100 95 07/02/18 06:45 07/02/18 07:00 07/02/18 07:01 Temperature Pulse Rate 99 H 102 H 100 H Respiratory Rate 18 18 19 Blood Pressure 91/70 L 129/65 Pulse Oximetry 96 96 07/02/18 07:15 07/02/18 07:36 07/02/18 07:45 Temperature Pulse Rate 98 H 98 H 102 H Respiratory Rate 21 19 18 Blood Pressure 87/60 L 127/84 119/68 Pulse Oximetry 96 94 L 97 07/02/18 07:56 07/02/18 08:00 07/02/18 08:15 Temperature 98.4 F Pulse Rate 103 H 104 H Respiratory Rate 18 18 18 Blood Pressure 101/58 L 84/63 L Pulse Oximetry 97 96 97 07/02/18 09:31 07/02/18 09:46 07/02/18 10:00 Temperature Pulse Rate 101 H 99 H 97 H Respiratory Rate 22 19 18 Blood Pressure 104/61 97/53 L Pulse Oximetry 100 100 99 07/02/18 10:23 07/02/18 10:51 07/02/18 11:00 Temperature Pulse Rate 97 H 93 H 93 H Respiratory Rate 18 19 18 Blood Pressure 79/53 L 117/76 102/70 Pulse Oximetry 94 L 99 99 07/02/18 11:31 07/02/18 11:34 07/02/18 11:35 Temperature Pulse Rate 99 H 97 H 97 H Respiratory Rate 26 H 27 H 24 Blood Pressure 67/42 L 65/45 L 115/74 Pulse Oximetry 100 100 100 07/02/18 12:00 07/02/18 12:30 07/02/18 13:01 Temperature 98.5 F Pulse Rate 100 H 97 H Respiratory Rate 19 18 18 Blood Pressure 102/73 Pulse Oximetry 100 100 07/02/18 14:00 07/02/18 16:00 Temperature Pulse Rate 90 89 Respiratory Rate 18 Blood Pressure Pulse Oximetry 100 Intake & Output 07/01/18 07/02/18 07/02/18 18:59 06:59 18:59 Intake Total 1070 / 1070 1780 / 1780 Output Total 1000 / 1000 650 / 650 Balance 70 / 70 1130 / 1130 Weight 92 kg Intake: IV 350 / 350 1300 / 1300 D5W Inj 1,000 ML @ 75 mls/hr IV 1000 / 1000 .CONT .[id number] WOLF Rx#:[id number] Azithromycin Inj 250 MG In NS 250 / 250 Inj 250 ML @ 250 mls/hr IV.SIG Q24H [facility]OLF Rx#:[id number] Maxipime Inj 2,000 MG In NS Inj 100 / 100 200 / 200 100 ML @ 200 mls/hr IV.SIG Q8H [facility]OLF Rx#:[id number] Flagyl 500 MG Inj 100 ML @ 100 100 / 100 mls/hr IV.SIG Q8H WOLF Rx#: [id number] Oral 720 / 720 480 / 480 Output: Urine 650 / 650 350 / 350 Urine Amount (Catheter) 350 / 350 Indwelling Urethral Catheter 350 / 350 Gastric Drainage 300 / 300 Left Nare Nasogastric Tube 300 / 300 Other: # Incontinent Voids 4 Date of Last Bowel Movement 06/28/18 06/28/18 GENERAL: Elderly AA male on Vent SKIN: Warm and dry. HEAD: Normocephalic. EYES: No scleral icterus. No injection or drainage. NECK: Supple, trachea midline. No JVD or lymphadenopathy. CARDIOVASCULAR: Regular rate and rhythm without murmurs, gallops, or rubs. RESPIRATORY: Breath sounds equal bilaterally. No accessory muscle use. GASTROINTESTINAL: Abdomen soft, non-tender, distended. MUSCULOSKELETAL: No cyanosis, or edema. BACK: Nontender without obvious deformity. No CVA tenderness. - Urinary Catheter Management Indwelling Urethral Catheter Cath placed during this visit: yes Reason for continuing: Hourly intake/output Insertion date: 06/27/18 Insertion time: 16:00 Assessment and Plan - Plan IMPRESSION: Hypercapnoic RF, Reintubated COPD exac AMS improved HTN HIT positive PLAN: Vent support PRVC AC, Fi02 80% Aerosol nebs Cont Abx Supplement 02 Monitor BS Argatroban drip NGT to suction GI Following.
[2018-07-02] MEDS: Sodium Chloride 23.4% Inj 38.5 MEQ in Water for Inj, Sterile 1,000 ML IV.CONT SCH (18:41)
--- NOTE | 2018-07-02 19:01 | P.PNONC ---
Subjective Interval history: Intubated and sedated on the ventilator. S/p GI procedure for ileus and abdominal distention. Objective Vital Signs/Intake & Output: Vital Signs 07/01/18 19:00 07/01/18 19:31 07/01/18 20:00 Temperature Pulse Rate 110 H 107 H 105 H Respiratory Rate 23 26 H 26 H Blood Pressure 126/85 138/66 137/65 Pulse Oximetry 95 97 86 L 07/01/18 20:30 07/01/18 20:33 07/01/18 21:00 Temperature 99.1 F Pulse Rate 102 H 90 112 H Respiratory Rate 25 H 28 H 23 Blood Pressure 138/63 115/80 Pulse Oximetry 85 L 91 L 07/01/18 21:16 07/01/18 21:30 07/01/18 22:00 Temperature Pulse Rate 111 H 108 H Respiratory Rate 32 H 31 H Blood Pressure 122/71 Pulse Oximetry 92 L 88 L 92 L 07/01/18 22:01 07/01/18 22:30 07/01/18 23:05 Temperature Pulse Rate 109 H 108 H 103 H Respiratory Rate 29 H 31 H 25 H Blood Pressure 134/60 123/70 131/98 H Pulse Oximetry 91 L 92 L 92 L 07/01/18 23:30 07/02/18 00:00 07/02/18 00:23 Temperature 98.4 F Pulse Rate 104 H 99 H 104 H Respiratory Rate 26 H 28 H 22 Blood Pressure 138/70 135/76 Pulse Oximetry 90 L 82 L 94 L 07/02/18 00:31 07/02/18 01:00 07/02/18 01:30 Temperature Pulse Rate 109 H 106 H 105 H Respiratory Rate 29 H 28 H 23 Blood Pressure 135/77 133/70 118/78 Pulse Oximetry 91 L 93 L 97 07/02/18 02:00 07/02/18 02:12 07/02/18 02:31 Temperature Pulse Rate 103 H 106 H 106 H Respiratory Rate 23 24 28 H Blood Pressure 141/83 H 121/77 Pulse Oximetry 98 98 94 L 07/02/18 03:00 07/02/18 03:30 07/02/18 04:00 Temperature Pulse Rate 105 H 104 H 101 H Respiratory Rate 27 H 22 12 Blood Pressure 114/75 107/79 Pulse Oximetry 92 L 93 L 07/02/18 04:06 07/02/18 04:15 07/02/18 04:20 Temperature Pulse Rate 111 H 104 H Respiratory Rate 12 11 L 16 Blood Pressure 103/55 L 102/59 L Pulse Oximetry 100 100 100 07/02/18 04:30 07/02/18 04:31 07/02/18 04:45 Temperature Pulse Rate 105 H 101 H Respiratory Rate 27 H 32 H Blood Pressure 100/59 L 84/55 L Pulse Oximetry 100 88 L 98 07/02/18 04:50 07/02/18 04:58 07/02/18 05:00 Temperature Pulse Rate 96 H 93 H 93 H Respiratory Rate 41 H 19 24 Blood Pressure 66/46 L 96/61 L 98/60 L Pulse Oximetry 100 100 07/02/18 05:15 07/02/18 05:23 07/02/18 05:30 Temperature Pulse Rate 95 H 97 H 99 H Respiratory Rate 16 16 16 Blood Pressure 112/70 92/67 L Pulse Oximetry 100 100 07/02/18 05:52 07/02/18 06:00 07/02/18 06:01 Temperature Pulse Rate 97 H 99 H 99 H Respiratory Rate 16 18 18 Blood Pressure 102/61 121/53 L Pulse Oximetry 100 100 100 07/02/18 06:15 07/02/18 06:35 07/02/18 06:45 Temperature Pulse Rate 99 H 98 H 99 H Respiratory Rate 18 18 18 Blood Pressure 108/58 L 93/69 L 91/70 L Pulse Oximetry 100 95 96 07/02/18 07:00 07/02/18 07:01 07/02/18 07:15 Temperature Pulse Rate 102 H 100 H 98 H Respiratory Rate 18 19 21 Blood Pressure 129/65 87/60 L Pulse Oximetry 96 96 07/02/18 07:36 07/02/18 07:45 07/02/18 07:56 Temperature Pulse Rate 98 H 102 H Respiratory Rate 19 18 18 Blood Pressure 127/84 119/68 Pulse Oximetry 94 L 97 97 07/02/18 08:00 07/02/18 08:15 07/02/18 09:31 Temperature 98.4 F Pulse Rate 103 H 104 H 101 H Respiratory Rate 18 18 22 Blood Pressure 101/58 L 84/63 L 104/61 Pulse Oximetry 96 97 100 07/02/18 09:46 07/02/18 10:00 07/02/18 10:23 Temperature Pulse Rate 99 H 97 H 97 H Respiratory Rate 19 18 18 Blood Pressure 97/53 L 79/53 L Pulse Oximetry 100 99 94 L 07/02/18 10:51 07/02/18 11:00 07/02/18 11:31 Temperature Pulse Rate 93 H 93 H 99 H Respiratory Rate 19 18 26 H Blood Pressure 117/76 102/70 67/42 L Pulse Oximetry 99 99 100 07/02/18 11:34 07/02/18 11:35 07/02/18 12:00 Temperature 98.5 F Pulse Rate 97 H 97 H 100 H Respiratory Rate 27 H 24 19 Blood Pressure 65/45 L 115/74 102/73 Pulse Oximetry 100 100 100 07/02/18 12:30 07/02/18 13:01 07/02/18 14:00 Temperature Pulse Rate 97 H 90 Respiratory Rate 18 18 Blood Pressure Pulse Oximetry 100 07/02/18 15:39 07/02/18 15:40 07/02/18 15:45 Temperature Pulse Rate 86 86 91 H Respiratory Rate 20 23 28 H Blood Pressure 73/49 L 82/55 L 136/95 H Pulse Oximetry 94 L 95 100 07/02/18 15:50 07/02/18 15:55 07/02/18 16:00 Temperature 98 F Pulse Rate 89 93 H 89 Respiratory Rate 21 20 22 Blood Pressure 130/94 H 128/81 146/85 H Pulse Oximetry 100 100 100 07/02/18 16:06 07/02/18 16:11 07/02/18 16:15 Temperature Pulse Rate 92 H 94 H 92 H Respiratory Rate 28 H 28 H 29 H Blood Pressure 131/70 147/71 H 144/74 H Pulse Oximetry 100 100 100 07/02/18 16:20 07/02/18 16:26 07/02/18 16:32 Temperature Pulse Rate 95 H 92 H 93 H Respiratory Rate 27 H 34 H 24 Blood Pressure 171/53 H 125/55 L 126/77 Pulse Oximetry 100 98 100 07/02/18 16:36 07/02/18 16:50 07/02/18 16:55 Temperature Pulse Rate 93 H 94 H 92 H Respiratory Rate 36 H 39 H 28 H Blood Pressure 114/69 120/57 L 119/58 L Pulse Oximetry 100 100 100 07/02/18 17:04 07/02/18 17:06 07/02/18 17:35 Temperature Pulse Rate 93 H 94 H 91 H Respiratory Rate 20 20 23 Blood Pressure 112/90 94/56 L 92/56 L Pulse Oximetry 100 100 98 07/02/18 17:42 07/02/18 17:46 07/02/18 17:56 Temperature Pulse Rate 96 H 96 H 96 H Respiratory Rate 20 19 19 Blood Pressure 99/58 L 93/67 L 124/71 Pulse Oximetry 98 98 97 07/02/18 18:00 07/02/18 18:05 07/02/18 18:11 Temperature Pulse Rate 94 H 94 H 93 H Respiratory Rate 21 20 22 Blood Pressure 117/57 L 110/58 L 115/56 L Pulse Oximetry 97 97 96 07/02/18 18:15 Temperature Pulse Rate 93 H Respiratory Rate 18 Blood Pressure 113/55 L Pulse Oximetry 97 Intake & Output 07/01/18 07/02/18 07/02/18 18:59 06:59 18:59 Intake Total 1070 / 1070 1780 / 1780 450 / 450 Output Total 1000 / 1000 650 / 650 1050 / 1050 Balance 70 / 70 1130 / 1130 -600 / -600 Weight 92 kg Intake: IV 350 / 350 1300 / 1300 200 / 200 D5W Inj 1,000 ML @ 75 mls/hr IV 1000 / 1000 .CONT .[id number] ANTOINE Rx#:[id number] Azithromycin Inj 250 MG In NS 250 / 250 Inj 250 ML @ 250 mls/hr IV.SIG Q24H ANTOINE Rx#:[id number] Maxipime Inj 2,000 MG In NS Inj 100 / 100 200 / 200 100 / 100 100 ML @ 200 mls/hr IV.SIG Q8H ANTOINE Rx#:[id number] Flagyl 500 MG Inj 100 ML @ 100 100 / 100 100 / 100 mls/hr IV.SIG Q8H ANTOINE Rx#: [id number] Oral 720 / 720 480 / 480 Tube Feeding 0 / 0 Tube Irrigant 200 / 200 Water Bolus Amount 50 / 50 Output: Urine 650 / 650 350 / 350 Urine Amount (Catheter) 350 / 350 1050 / 1050 Indwelling Urethral Catheter 350 / 350 1050 / 1050 Gastric Drainage 300 / 300 Left Nare Nasogastric Tube 300 / 300 Other: Bladder Irrigation Fluid - Amount Instilled Indwelling Urethral Catheter 25 # Incontinent Voids 4 Date of Last Bowel Movement 06/28/18 07/02/18 # Bowel Movements 2 # Incontinent Bowel Movements 2 Result Diagrams: 07/02/18 05:42 07/02/18 05:42 Laboratory Results: Laboratory Results - last 24 hr 07/01/18 07/01/18 07/01/18 19:37 20:39 22:18 WBC RBC Hgb Hct MCV MCH MCHC RDW Plt Count MPV Prelim Diff (Auto) Neut % (Auto) Lymph % (Auto) [place] % (Auto) Eos % (Auto) Baso % (Auto) Neut # (Auto) Lymph # (Auto) [place] # (Auto) Eos # (Auto) Baso # (Auto) WBC Differential Seg Neuts % (Manual) Band Neuts % (Manual) Monocytes % (Manual) Abs Neuts (Manual) Differential Comment Platelet Estimate Platelet Morphology Smear Path Review Haptoglobin APTT Fibrinogen Puncture Site Right radial Right radial Patient Temperature 98.6 98.6 O2 Saturation 77 L* 88 L* ABG pH 7.26 L* 7.31 L ABG pCO2 72 H* 63 H* ABG pO2 52 L* 67 ABG HCO3 31 H 31 H ABG O2 Content 11.8 L 13.6 ABG Base Excess 4.3 H 4.9 H ABG Methemoglobin 1.6 1.7 Raymon Test Present Present Hemoglobin 10.9 L 11.0 L Carboxyhemoglobin 0.9 0.9 O2 Delivery Device Ventimask Bipap Vent Setting 12/5 Inspired O2 50 70 Critical Value Yes Yes Sodium Potassium Chloride Carbon Dioxide Anion Gap BUN Creatinine Estimated GFR POC Glucose 238 H Random Glucose Lactic Acid Calcium Phosphorus Magnesium Total Bilirubin AST ALT Alkaline Phosphatase Lactate Dehydrogenase Total Protein Albumin Vitamin B12 Folate 07/01/18 07/02/18 07/02/18 23:06 03:06 03:27 WBC RBC Hgb Hct MCV MCH MCHC RDW Plt Count MPV Prelim Diff (Auto) Neut % (Auto) Lymph % (Auto) [place] % (Auto) Eos % (Auto) Baso % (Auto) Neut # (Auto) Lymph # (Auto) [place] # (Auto) Eos # (Auto) Baso # (Auto) WBC Differential Seg Neuts % (Manual) Band Neuts % (Manual) Monocytes % (Manual) Abs Neuts (Manual) Differential Comment Platelet Estimate Platelet Morphology Smear Path Review Haptoglobin APTT Fibrinogen Puncture Site Right radial Patient Temperature 98.6 O2 Saturation 90 ABG pH 7.32 L ABG pCO2 61 H* ABG pO2 70 ABG HCO3 30 H ABG O2 Content 14.0 ABG Base Excess 4.4 H ABG Methemoglobin 1.6 Raymon Test Present Hemoglobin 11.0 L Carboxyhemoglobin 0.6 O2 Delivery Device Bipap Vent Setting Inspired O2 90 Critical Value Yes Sodium Potassium Chloride Carbon Dioxide Anion Gap BUN Creatinine Estimated GFR POC Glucose 174 H 176 H Random Glucose Lactic Acid Calcium Phosphorus Magnesium Total Bilirubin AST ALT Alkaline Phosphatase Lactate Dehydrogenase Total Protein Albumin Vitamin B12 Folate 07/02/18 07/02/18 07/02/18 05:28 05:42 05:42 WBC 32.9 H RBC 3.39 L Hgb 10.0 L D Hct 31.5 L MCV 92.9 D MCH 29.4 MCHC 31.6 L RDW 13.7 Plt Count 65 L MPV 11.5 H Prelim Diff (Auto) Slide review pending Neut % (Auto) 96.5 H Lymph % (Auto) 0.7 L [place] % (Auto) 2.7 Eos % (Auto) 0.0 Baso % (Auto) 0.1 Neut # (Auto) 31.8 H Lymph # (Auto) 0.2 L [place] # (Auto) 0.9 Eos # (Auto) 0.0 Baso # (Auto) 0.0 WBC Differential Manual diff final Seg Neuts % (Manual) 95 H Band Neuts % (Manual) 4 Monocytes % (Manual) 1 Abs Neuts (Manual) 32.6 H Differential Comment . Platelet Estimate Low L Platelet Morphology Enlarged H Smear Path Review Haptoglobin APTT Fibrinogen Puncture Site Right radial Patient Temperature 98.6 O2 Saturation 97 ABG pH 7.27 L* ABG pCO2 65 H* ABG pO2 306 H ABG HCO3 29 H ABG O2 Content 14.6 ABG Base Excess 2.6 H ABG Methemoglobin 1.6 Raymon Test + Hemoglobin 10.1 L Carboxyhemoglobin 0.4 O2 Delivery Device Ventilator Vent Setting Prvc/ac 16 vt 550 Inspired O2 100 Critical Value Yes Sodium 149 H Potassium 4.8 Chloride 110 H Carbon Dioxide 32.4 H Anion Gap 7 BUN 67 H Creatinine 1.27 Estimated GFR 68 L POC Glucose Random Glucose 171 H Lactic Acid Calcium 7.5 L Phosphorus 4.7 D Magnesium 2.4 Total Bilirubin 0.6 AST 22 ALT 45 Alkaline Phosphatase 50 Lactate Dehydrogenase Total Protein 5.9 L D Albumin 2.8 L Vitamin B12 Folate 07/02/18 07/02/18 07/02/18 07:50 08:44 10:50 WBC RBC Hgb Hct MCV MCH MCHC RDW Plt Count MPV Prelim Diff (Auto) Neut % (Auto) Lymph % (Auto) [place] % (Auto) Eos % (Auto) Baso % (Auto) Neut # (Auto) Lymph # (Auto) [place] # (Auto) Eos # (Auto) Baso # (Auto) WBC Differential Seg Neuts % (Manual) Band Neuts % (Manual) Monocytes % (Manual) Abs Neuts (Manual) Differential Comment Platelet Estimate Platelet Morphology Smear Path Review Haptoglobin APTT 38.9 H Fibrinogen Puncture Site Patient Temperature O2 Saturation ABG pH ABG pCO2 ABG pO2 ABG HCO3 ABG O2 Content ABG Base Excess ABG Methemoglobin Raymon Test Hemoglobin Carboxyhemoglobin O2 Delivery Device Vent Setting Inspired O2 Critical Value Sodium Potassium Chloride Carbon Dioxide Anion Gap BUN Creatinine Estimated GFR POC Glucose 146 H Random Glucose Lactic Acid Calcium Phosphorus Magnesium Total Bilirubin AST ALT Alkaline Phosphatase Lactate Dehydrogenase Total Protein Albumin Vitamin B12 Folate 07/02/18 07/02/18 07/02/18 10:50 11:31 13:27 WBC RBC Hgb Hct MCV MCH MCHC RDW Plt Count MPV Prelim Diff (Auto) Neut % (Auto) Lymph % (Auto) [place] % (Auto) Eos % (Auto) Baso % (Auto) Neut # (Auto) Lymph # (Auto) [place] # (Auto) Eos # (Auto) Baso # (Auto) WBC Differential Seg Neuts % (Manual) Band Neuts % (Manual) Monocytes % (Manual) Abs Neuts (Manual) Differential Comment Platelet Estimate Platelet Morphology Smear Path Review Haptoglobin APTT Fibrinogen 278 Puncture Site Patient Temperature O2 Saturation ABG pH ABG pCO2 ABG pO2 ABG HCO3 ABG O2 Content ABG Base Excess ABG Methemoglobin Raymon Test Hemoglobin Carboxyhemoglobin O2 Delivery Device Vent Setting Inspired O2 Critical Value Sodium Potassium Chloride Carbon Dioxide Anion Gap BUN Creatinine Estimated GFR POC Glucose 188 H Random Glucose Lactic Acid 2.6 H Calcium Phosphorus Magnesium Total Bilirubin AST ALT Alkaline Phosphatase Lactate Dehydrogenase Total Protein Albumin Vitamin B12 Folate 07/02/18 07/02/18 07/02/18 13:27 13:27 18:06 WBC RBC Hgb Hct MCV MCH MCHC RDW Plt Count MPV Prelim Diff (Auto) Neut % (Auto) Lymph % (Auto) [place] % (Auto) Eos % (Auto) Baso % (Auto) Neut # (Auto) Lymph # (Auto) [place] # (Auto) Eos # (Auto) Baso # (Auto) WBC Differential Seg Neuts % (Manual) Band Neuts % (Manual) Monocytes % (Manual) Abs Neuts (Manual) Differential Comment Platelet Estimate Platelet Morphology Smear Path Review Haptoglobin 98 APTT 50.1 H D Fibrinogen Puncture Site Patient Temperature O2 Saturation ABG pH ABG pCO2 ABG pO2 ABG HCO3 ABG O2 Content ABG Base Excess ABG Methemoglobin Ray[place] Test Hemoglobin Carboxyhemoglobin O2 Delivery Device Vent Setting Inspired O2 Critical Value Sodium Potassium Chloride Carbon Dioxide Anion Gap BUN Creatinine Estimated GFR POC Glucose 273 H Random Glucose Lactic Acid Calcium Phosphorus Magnesium Total Bilirubin AST ALT Alkaline Phosphatase Lactate Dehydrogenase 328 H Total Protein Albumin Vitamin B12 855 Folate 12.1 Imaging Studies: Impressions Chest X-Ray 07/01/18 20:41 CONCLUSION: Negative examination. Chest CTA 07/02/18 00:00 CONCLUSION: 1. No pulmonary embolus. 2. Diffuse but basilar predominant bilateral airspace disease. 3. Endotracheal and endobronchial secretions are demonstrated. 4. Moderate emphysema. 5. Left ventricular hypertrophy. Venous Doppler Study 07/02/18 00:00 CONCLUSION: 1. Limited, no evidence for thrombosis. Chest X-Ray 07/02/18 04:04 CONCLUSION: 1. Interim intubation and nasogastric tube placement as above. 2. Mild bibasilar atelectasis has developed. Abdomen/Pelvis CT 07/02/18 04:20 CONCLUSION: Colonic distention most likely representing moderate adynamic ileus. However, distal sigmoid colon is decompressed and a sigmoid stricture is conceivable but considered less likely. Apparent mild proctitis. Clinical surveillance and follow-up CT recommended. Chest X-Ray 07/02/18 14:46 CONCLUSION: Left IJ line in good position. There is no pneumothorax. Medications: Active Medications Generic Name Dose Route Start Last Admin Trade Name Freq PRN Reason Stop Dose Admin Acetaminophen 650 mg 06/20/18 02:11 07/01/18 15:05 Tylenol PO 650 mg Q4H PRN Administration Temp > 100.4 Albuterol 1 ampul 06/26/18 12:00 07/02/18 16:50 Duoneb Neb (Antoine) NEB 1 ampul Q4HR NEB ANTOINE Administration Artificial Tears 1 drop 07/02/18 16:00 07/02/18 17:31 Tears Naturale Opth Drops EACH EYE 1 drop Q8H ANTOINE Administration Bisacodyl 10 mg 06/24/18 15:15 07/02/18 08:38 Dulcolax Supp RECTAL 10 mg DAILY ANTOINE Administration Budesonide 0.5 mg 06/26/18 20:00 07/02/18 11:22 Pulmocort Respule Neb NEB 0.5 mg Q12HR NEB ANTOINE Administration Chlorhexidine Gluconate 15 ml 06/26/18 20:00 07/02/18 08:34 Peridex 0.12% Oral Kit OROPHARYNG 15 ml BID@08,1999 ANTOINE Administration Diltiazem HCl 60 mg 06/30/18 09:00 07/02/18 17:32 Cardizem PO 60 mg QID ANTOINE Administration Duloxetine HCl 20 mg 06/23/18 18:00 06/28/18 09:09 Cymbalta PO Not Given DAILY ANTOINE Famotidine 20 mg 07/01/18 18:00 07/02/18 17:24 Pepcid Pf Inj IV.PUSH 20 mg Q12H ANTOINE Administration Hydralazine HCl 50 mg 06/23/18 18:00 07/02/18 18:08 Apresoline PO Not Given TID ANTOINE Argatroban 250 mg/ Sodium 250 mls @ 0 mls/hr 07/02/18 03:49 07/02/18 16:15 Chloride IV.CONT 0 mcg/kg/min TITRATE PRN 0 mls/hr Per Protocol Titration Protocol Per Protocol Propofol 1,000 mg in 100 mls @ 2.64 mls/hr 07/02/18 04:21 07/02/18 18:41 Diprivan 1000 Mg/100 Ml Inj IV.CONT 15 mcg/kg/min TITRATE PRN 7.92 mls/hr Per Protocol Titration Protocol 5 MCG/KG/MIN Cefepime HCl 2,000 mg/ Sodium 100 mls @ 200 mls/hr 07/02/18 05:00 07/02/18 13 :50 Chloride IV.SIG Infused Q8H ANTOINE Infusion Metronidazole/Sodium Chloride 100 mls @ 100 mls/hr 07/02/18 06:00 07/02/18 14 :50 Flagyl 500 Mg Inj IV.SIG Infused Q8H ANTOINE Infusion Sodium Chloride 38.5 meq/ 1,009.625 mls @ 100 mls/hr 07/02/18 16:00 07/02/18 18:41 Sterile Water IV.CONT 100 mls/hr .Q10H6M ANTOINE Administration Insulin Human Regular 0 units 06/28/18 08:00 07/02/18 18:08 Novolin R Correctional Sugar Inj SQ 7 units Q4HR ANTOINE Administration Protocol Methylprednisolone Sodium Succinate 40 mg 06/28/18 08:00 07/02/18 17:25 Solumedrol Inj IV.PUSH 40 mg Q8H ANTOINE Administration Metoprolol Tartrate 2.5 mg 06/27/18 15:08 07/01/18 01:26 Lopressor Inj IV.PUSH 2.5 mg Q6H PRN Administration HEART RATE GREATER THAN 115 Miscellaneous Medication 1 each 06/26/18 12:00 07/02/18 17:26 OROPHARYNG 1 each 0000,0400,1200,1600 ANTOINE Administration Pantoprazole Sodium 20 mg 06/20/18 09:00 06/28/18 09:09 Protonix PO Not Given DAILY ANTOINE Senna/Docusate Sodium 1 tab 06/20/18 09:00 07/02/18 08:36 Maria Guadalupe-Colace PO 1 tab BID ANTOINE Administration Simethicone 80 mg 06/24/18 18:30 07/02/18 17:32 Mylicon Chew PO 80 mg PCHS ANTOINE Administration Sodium Chloride 2 ml 06/20/18 09:00 07/02/18 08:38 Ns Flush IV.FLUSH 2 ml BID ANTOINE Administration Whey 1 packet 06/28/18 09:00 07/02/18 17:25 Beneprotein Powder G-TUBE 1 packet TID ANTOINE Administration Objective Remarks: GENERAL: chronically ill appearing, intubated, sedated SKIN: Warm and dry. HEAD: Normocephalic. EYES: No scleral icterus. No injection or drainage. NECK: ET tube in place LYMPHATIC: No adenopathy. CARDIOVASCULAR: Regular rate and rhythm without murmurs. RESPIRATORY: Breath sounds equal bilaterally. GASTROINTESTINAL: distension EXTREMITIES: No cyanosis, or edema. MUSCULOSKELETAL: Adequate muscle tone. NEUROLOGICAL: No obvious focal deficit. Awake, alert, and oriented x3. PSYCHIATRIC: Appropriate mood and affect; insight and judgment normal. Assessment/Plan - Plan 1. TCP: fibrinogen within normal limits, coags WNL. No evidence of DIC. HIT positive, ANNMARIE pending. Duplex ultrasound of bilateral lower extremity negative , no PE. No upper extremity thormbosis. Smear with limited fragments, LDH slighly elevated, haptoglobin WNL. No evidence of TMA/hemolysis. No evidence of hypersplenism, liver disease. Early cells (metamyelocytes) present on differential, however this can be presents in illness/steroids. will continue to monitor. 2. Leukocytosis: reactive. steroids, on abx. 3. Anemia: critical illness, contiue to monitor. 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
[2018-07-03] MEDS: Oral Hygiene Kit OROPHARYNG SCH ×5 (00:15→23:56)
[2018-07-03] MEDS: Artificial Tears Opth Drops 15 ML Bottle EACH EYE SCH ×4 (00:46→23:56)
[2018-07-03] MEDS: MethylPREDNISolone Sod Succinate Inj 40 MG/ML Vial IV.PUSH SCH ×4 (00:46→23:54)
[2018-07-03] MEDS: Insulin NovoLIN Regular Correctional Sugar Inj SQ SCH ×6 (00:47→21:43)
[2018-07-03] MEDS: Propofol 1000 mg/100 ml Inj 1,000 MG/100 ML BOTTLE IV.CONT PRN ×2 (03:35→21:00)
[2018-07-03 04:55] LABS: Baso % (Auto) 0.1 % (0.0-2.0); Hematocrit 26.6 % (39.0-51.0); Hemoglobin 8.7 gm/dL (13.0-17.0); Lymph # (Auto) 0.2 th/mm3 (1.0-4.8); Lymph % (Auto) 0.8 % (9.0-44.0); Mean Corpuscular HGB Conc 32.9 % (32.0-36.0); Mean Corpuscular Hemoglobin 29.8 pg (27.0-34.0); Mean Corpuscular Volume 90.7 fL (80.0-100.0); Mean Platelet Volume 10.6 fL (7.0-11.0); Mono # (Auto) 0.5 th/mm3 (0.0-0.9); Mono % (Auto) 2.6 % (0.0-8.0); Neut # (Auto) 18.9 th/mm3 (1.8-7.7); Neut % (Auto) 96.5 % (16.0-70.0); Platelet Count 49 th/mm3 (150-450); Red Blood Count 2.93 mil/mm3 (4.50-5.90); Red Cell Distribution Width 13.3 % (11.6-17.2); White Blood Count 19.6 th/mm3 (4.0-11.0)
[2018-07-03] MEDS: Famotidine PF Inj 20 MG/2 ML Vial IV.PUSH SCH ×2 (05:01→17:09)
[2018-07-03] MEDS: Sodium Chloride 23.4% Inj 38.5 MEQ in Water for Inj, Sterile 1,000 ML IV.CONT SCH ×2 (05:28→16:31)
[2018-07-03 05:29] LABS: Alanine Aminotransferase 36 U/L (12-78); Albumin 2.5 g/dL (3.4-5.0); Alkaline Phosphatase 49 U/L (45-117); Anion Gap 9 meq/L (5-15); Aspartate Aminotransferase 17 U/L (15-37); Blood Urea Nitrogen 65 mg/dL (7-18); Calcium 7.7 mg/dL (8.5-10.1); Carbon Dioxide 31.5 meq/L (21.0-32.0); Chloride 113 meq/L (98-107); Glomerular Filtration Rate 71 mL/min (>89); Glucose,Random 195 mg/dL (74-106); Magnesium 2.3 mg/dL (1.5-2.5); Phosphorus 3.4 mg/dL (2.5-4.9); Potassium 3.7 meq/L (3.5-5.1); Sodium 153 meq/L (136-145); Total Protein 5.4 g/dL (6.4-8.2)
[2018-07-03 06:16] LABS: ABG Base Excess 5.5 mmol/L (-2-2); ABG PCO2 47 mmHg (38-42); ABG PO2 80 mmHG (61-120)
[2018-07-03] MEDS: dilTIAZem 60 MG Tablet PO SCH ×4 (08:05→20:12)
[2018-07-03] MEDS: Bisacodyl 10 MG Supp RECTAL SCH (08:06)
[2018-07-03] MEDS: Senna/Docusate Sodium 8.6/50 MG Tablet PO SCH ×2 (08:06→20:12)
[2018-07-03] MEDS: Chlorhexidine 0.12% Oral Kit 15 ML UDC OROPHARYNG SCH ×2 (08:07→20:13)
[2018-07-03] MEDS: Beneprotein Powder Packet G-TUBE SCH ×3 (08:07→17:10)
[2018-07-03] MEDS: hydrALAZINE 50 MG Tablet PO SCH ×3 (08:08→17:09)
[2018-07-03] MEDS: Argatroban Inj 250 MG in Sodium Chlor 0.9% Inj 247.5 ML IV.CONT PRN (11:34)
[2018-07-03] MEDS: Simethicone 80 MG Chew Tablet PO SCH ×4 (11:36→21:10)
[2018-07-03] MEDS ORDERED: PEG 3350/E-Lyte Soln 4000 ML Bottle PO ONE (12:41)
[2018-07-03] MEDS ORDERED: Magnesium Citrate Liq 300 ML Bottle PO ONE (12:46)
--- NOTE | 2018-07-03 12:51 | P.PNCC ---
Subjective Subjective Remarks/Hospital Course: Mr. Curry is a 73-year-old -[place]ag[place] male with past medical history significant for COPD on 3 L nasal cannula, hypertension, hyperlipidemia and anxiety who was admitted to the hospitalist service on 06/19/2018 for worsening shortness of breath due to COPD exacerbation. He was treated with IV Solu- Medrol, IV antibiotics, breathing treatments gradually improved. Patient was also complaining about dyspepsia and underwent EGD by GI yesterday. Per report the EGD was normal but patient developed worsening shortness of breath and COPD exacerbation postprocedure, possibly from aspiration after sedated. Two ABGs done yesterday showed hypercapnic respiratory failure second 1 was on BiPAP and this was improved with pH 7.3 with PCO2 of 74. Patient remained on BiPAP overnight however was noticed to be lethargic today a.m., stat ABG showed pH of 7.21 PCO2 110 PO2 88 while on BiPAP. Patient was lethargic intermittently dozing off due to CO2 narcosis. Critical care medicine was consulted and I immediately evaluated the patient. Patient had obviously failed BiPAP I proceeded with endotracheal intubation placed on mechanical ventilation. Postintubation I have ordered single dose of Solu-Medrol 125 mg x1 continue Solu -Medrol 60 every 8, discontinue ceftriaxone and start cefepime 2 g IV every 8 hours continue azithromycin. Add budesonide inhaled, placed on scheduled DuoNeb every 4 hours and as needed. 06/27: Patient was intubated yesterday for severe hypercapnic respiratory failure. Currently remains intubated sedated and intubated remains diminished bilaterally. Heavily sedated for ventilator synchrony 06/28: Urine output significantly improved with fluid resuscitation. Creat down trending now 2 from 2.3, UO >3.3 L. Remains intubated sedated. Will initiate daily sedation vacation and CPAP trials 06/29: More awake today tolerating CPAP trials intermittently follows commands but gets agitated/frustrated fast. Urine output remains excellent creatinine 1.4. However sodium increasing 158 today. 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 Due to hypoglycemia will change to quarter normal saline at 150 mL/h repeat CMP in the afternoon 06/30 Patient was extubated yesterday. Awake 07/01 Patient is lying in bed in NAD. T: 100.5 07/02: Intubated early this morning due to acute hypoxic respiratory failure. Central line placed due to hypotension. Plan for GI perform endoscopic decompression of this large bowel today. Arousable and does follow commands. Placed on argatroban SUBJECTIVE: 07/03: Currently, intubated with borderline blood pressure. Central line placed yesterday due to hypotension. Did not move bowels despite 1 L of fluid from colonoscopy yesterday and multiple laxatives provided. See orders for additional laxatives today. Might need neostigmine. Objective Vital Signs / I&O: Vital Signs 07/02/18 13:01 07/02/18 14:00 07/02/18 15:39 Temperature Pulse Rate 90 86 Respiratory Rate 18 20 Blood Pressure 73/49 L Pulse Oximetry 100 94 L 07/02/18 15:40 07/02/18 15:45 07/02/18 15:50 Temperature Pulse Rate 86 91 H 89 Respiratory Rate 23 28 H 21 Blood Pressure 82/55 L 136/95 H 130/94 H Pulse Oximetry 95 100 100 07/02/18 15:55 07/02/18 16:00 07/02/18 16:06 Temperature 98 F Pulse Rate 93 H 89 92 H Respiratory Rate 20 22 28 H Blood Pressure 128/81 146/85 H 131/70 Pulse Oximetry 100 100 100 07/02/18 16:11 07/02/18 16:15 07/02/18 16:20 Temperature Pulse Rate 94 H 92 H 95 H Respiratory Rate 28 H 29 H 27 H Blood Pressure 147/71 H 144/74 H 171/53 H Pulse Oximetry 100 100 100 07/02/18 16:26 07/02/18 16:32 07/02/18 16:36 Temperature Pulse Rate 92 H 93 H 93 H Respiratory Rate 34 H 24 36 H Blood Pressure 125/55 L 126/77 114/69 Pulse Oximetry 98 100 100 07/02/18 16:50 07/02/18 16:55 07/02/18 17:04 Temperature Pulse Rate 94 H 92 H 93 H Respiratory Rate 39 H 28 H 20 Blood Pressure 120/57 L 119/58 L 112/90 Pulse Oximetry 100 100 100 07/02/18 17:06 07/02/18 17:35 07/02/18 17:42 Temperature Pulse Rate 94 H 91 H 96 H Respiratory Rate 20 23 20 Blood Pressure 94/56 L 92/56 L 99/58 L Pulse Oximetry 100 98 98 07/02/18 17:46 07/02/18 17:56 07/02/18 18:00 Temperature Pulse Rate 96 H 96 H 94 H Respiratory Rate 19 19 21 Blood Pressure 93/67 L 124/71 117/57 L Pulse Oximetry 98 97 97 07/02/18 18:05 07/02/18 18:11 07/02/18 18:15 Temperature Pulse Rate 94 H 93 H 93 H Respiratory Rate 20 22 18 Blood Pressure 110/58 L 115/56 L 113/55 L Pulse Oximetry 97 96 97 07/02/18 20:00 07/02/18 21:47 07/02/18 21:58 Temperature 97 F L Pulse Rate 86 83 Respiratory Rate 18 18 18 Blood Pressure 94/68 L Pulse Oximetry 98 99 07/02/18 22:00 07/03/18 00:00 07/03/18 01:17 Temperature 97 F L Pulse Rate 86 82 77 Respiratory Rate 20 19 Blood Pressure 103/58 L Pulse Oximetry 99 07/03/18 01:18 07/03/18 02:00 07/03/18 03:15 Temperature Pulse Rate 82 80 Respiratory Rate 19 18 Blood Pressure 99/57 L Pulse Oximetry 99 99 07/03/18 03:20 07/03/18 03:25 07/03/18 03:30 Temperature Pulse Rate 80 80 78 Respiratory Rate 18 18 18 Blood Pressure 103/59 L 106/57 L 104/59 L Pulse Oximetry 99 99 99 07/03/18 03:35 07/03/18 03:40 07/03/18 03:45 Temperature Pulse Rate 79 79 81 Respiratory Rate 18 18 18 Blood Pressure 105/60 119/63 113/62 Pulse Oximetry 100 100 100 07/03/18 03:50 07/03/18 03:55 07/03/18 04:00 Temperature 97.6 F Pulse Rate 82 81 82 Respiratory Rate 18 19 19 Blood Pressure 108/58 L 99/59 L 108/60 Pulse Oximetry 99 100 100 07/03/18 04:05 07/03/18 04:10 07/03/18 04:15 Temperature Pulse Rate 81 83 82 Respiratory Rate 19 18 18 Blood Pressure 107/59 L 111/61 88/53 L Pulse Oximetry 100 100 99 07/03/18 04:20 07/03/18 04:25 07/03/18 04:30 Temperature Pulse Rate 82 81 80 Respiratory Rate 18 18 19 Blood Pressure 112/62 111/68 93/57 L Pulse Oximetry 100 100 100 07/03/18 04:35 07/03/18 04:40 07/03/18 04:45 Temperature Pulse Rate 81 82 81 Respiratory Rate 18 19 18 Blood Pressure 106/61 107/62 112/61 Pulse Oximetry 100 100 100 07/03/18 04:50 07/03/18 04:55 07/03/18 05:00 Temperature Pulse Rate 81 82 83 Respiratory Rate 18 18 18 Blood Pressure 110/60 111/60 112/60 Pulse Oximetry 99 99 99 07/03/18 05:05 07/03/18 05:10 07/03/18 05:39 Temperature Pulse Rate 83 84 Respiratory Rate 18 18 18 Blood Pressure 109/56 L 113/60 Pulse Oximetry 98 98 99 07/03/18 05:44 07/03/18 06:00 07/03/18 08:00 Temperature 98.4 F Pulse Rate 82 81 85 Respiratory Rate 18 18 21 Blood Pressure 113/60 Pulse Oximetry 98 96 07/03/18 08:18 07/03/18 10:00 07/03/18 11:16 Temperature Pulse Rate 86 87 86 Respiratory Rate 18 27 H Blood Pressure Pulse Oximetry 97 99 Intake & Output 07/02/18 07/03/18 07/03/18 18:59 06:59 18:59 Intake Total 450 / 450 2609.625 / 2609.625 250 / 250 Output Total 1050 / 1050 1050 / 1050 Balance -600 / -600 1559.625 / 1559.625 250 / 250 Weight 90.5 kg Intake: IV 200 / 200 1609.625 / 1609.625 250 / 250 Novastan Inj 250 MG In NS Inj 250 / 250 247.5 ML @ Per Protocol IV.CONT TITRATE PRN Rx#:[id number] Diprivan 1000 mg/100 ml Inj 1, 200 / 200 000 mg In 100 ml @ 5 MCG/KG/MIN 2.64 mls/hr IV.CONT TITRATE PRN Rx#:[id number] Sodium Chloride 23.4% Inj 38.5 1009.625 / 1009.625 MEQ In Sterile Water for Inj 1, 000 ML @ 100 mls/hr IV.CONT . Q10H6M WOLF Rx#:[id number] Maxipime Inj 2,000 MG In NS Inj 100 / 100 200 / 200 100 ML @ 200 mls/hr IV.SIG Q8H WOLF Rx#:[id number] Flagyl 500 MG Inj 100 ML @ 100 100 / 100 200 / 200 mls/hr IV.SIG Q8H WOLF Rx#: [id number] Tube Feeding 0 / 0 Tube Irrigant 200 / 200 Water Bolus Amount 50 / 50 1000 / 1000 Output: Urine Amount (Catheter) 1050 / 1050 1050 / 1050 Indwelling Urethral Catheter 1050 / 1050 1050 / 1050 Other: Bladder Irrigation Fluid - Amount Instilled Indwelling Urethral Catheter 25 Date of Last Bowel Movement 07/02/18 07/02/18 07/02/18 # Bowel Movements 2 # Incontinent Bowel Movements 2 Result Diagrams: 07/03/18 04:30 07/03/18 04:30 Other Results: Microbiology 07/02/18 05:41 Blood - Peripheral Aerobic Blood Culture - Preliminary No growth in 1 day 07/02/18 05:41 Blood - Peripheral Anaerobic Blood Culture - Preliminary No growth in 1 day 07/02/18 05:47 Blood - Peripheral Aerobic Blood Culture - Preliminary No growth in 1 day 07/02/18 05:47 Blood - Peripheral Anaerobic Blood Culture - Preliminary No growth in 1 day 07/02/18 22:00 Sputum - Endotracheal Gram Stain - Final 06/26/18 10:10 Sputum - Endotracheal Gram Stain - Final 06/26/18 10:10 Sputum - Endotracheal Sputum Culture - Final Light growth normal respiratory justyn Imaging: Chest X-Ray 06/19/18 20:38 CONCLUSION: No evidence of acute cardiopulmonary disease. Abdomen Ultrasound 06/21/18 00:00 CONCLUSION: 1. No ascites is identified within the abdomen. Abdomen X-Ray 06/21/18 00:00 CONCLUSION: No acute findings. Mild constipation. Chest X-Ray 06/23/18 00:00 CONCLUSION: 1. No acute abnormality or significant interval change. Abdomen/Pelvis CT 06/24/18 00:00 CONCLUSION: 1. Benign appearing right adrenal mass. 2. No acute CT findings in the abdomen or pelvis. Chest X-Ray 06/25/18 00:00 CONCLUSION: Suspected mild atelectasis or consolidation at the medial right base. Chest X-Ray 06/26/18 00:00 CONCLUSION: 1. Endotracheal tube is appropriately positioned above the christy. 2. Nasogastric tube traverses the GE junction and is curled in the gastric lumen. 3. Lungs are clear. Abdomen X-Ray 06/26/18 09:21 CONCLUSION: 1. Nonobstructive bowel gas pattern without pneumoperitoneum. 2. Nasogastric tube is curled in the expected location of the gastric body. I believe the portions of the tube identified over the heart shadow is probably projectional as there is no evidence of a significant hiatal hernia on the most recent CT of the abdomen. Chest X-Ray 06/26/18 15:37 CONCLUSION: 1. Lungs remain clear. 2. Interval placement of a right IJ central venous catheter with the tip projecting over the central venous system. No pneumothorax. 3. Endotracheal and nasogastric tubes remain appropriately positioned. Abdomen/Bladder Ultrasound 06/28/18 00:00 CONCLUSION: 1. Echogenic kidneys characteristic of medical renal disease. No hydronephrosis. Bladder decompressed by Moreno Chest X-Ray 06/28/18 06:00 CONCLUSION: The lungs are clear. Lines and tubes stable. Chest X-Ray 06/29/18 06:00 CONCLUSION: The lungs are clear. Lines and tubes stable. Venous Doppler Study 07/01/18 00:00 CONCLUSION: 1. The study is negative for bilateral lower extremity deep venous thrombosis. Chest X-Ray 07/01/18 20:41 CONCLUSION: Negative examination. Chest CTA 07/02/18 00:00 CONCLUSION: 1. No pulmonary embolus. 2. Diffuse but basilar predominant bilateral airspace disease. 3. Endotracheal and endobronchial secretions are demonstrated. 4. Moderate emphysema. 5. Left ventricular hypertrophy. Venous Doppler Study 07/02/18 00:00 CONCLUSION: 1. Limited, no evidence for thrombosis. Chest X-Ray 07/02/18 04:04 CONCLUSION: 1. Interim intubation and nasogastric tube placement as above. 2. Mild bibasilar atelectasis has developed. Abdomen/Pelvis CT 07/02/18 04:20 CONCLUSION: Colonic distention most likely representing moderate adynamic ileus. However, distal sigmoid colon is decompressed and a sigmoid stricture is conceivable but considered less likely. Apparent mild proctitis. Clinical surveillance and follow-up CT recommended. Chest X-Ray 07/02/18 14:46 CONCLUSION: Left IJ line in good position. There is no pneumothorax. Objective Remarks: GENERAL: Patient is 73 yo lying in bed in NAD orotracheally intubated SKIN: Warm and dry. HEAD: Normocephalic. EYES: No scleral icterus. No injection or drainage. NECK: Supple, trachea midline. No JVD or lymphadenopathy. CARDIOVASCULAR: Regular rate and rhythm without murmurs, gallops, or rubs. RESPIRATORY: Distant breath sounds. Few crackles patient bases. Clears with suctioning. GASTROINTESTINAL: Abdomen distended. Protuberant. Hypoactive bowel sounds appreciated. MUSCULOSKELETAL: No significant peripheral edema. Neuro: Arousable the ventilator and follows command. Assessment and Plan - Assessment and Plan Plan: ASSESSMENT: Acute hypercapnic respiratory failure Acute COPD exacerbation Altered mental status due to CO2 narcosis Acute kidney injury/failure Hypertension Leukocytosis Hyperglycemia COPD Hypernatremia Colonic ileus PLAN: NEURO: -Monitor neuro status, -On propofol drip for sedation/analgesia while intubated. Goal of RASS of -2. Daily sedation vacation RESP: -Continue with oxygen keep sats >92% -Extubated 06/29. Reintubated 07/02 -DuoNeb every 4 hours scheduled and as needed -Decrease IV Solu-Medrol 40 mg Q12 -Inhaled budesonide -Continue cefepime continue azithromycin -Spontaneous breathing trials when clinically indicated CV: - Monitor HR and BP keep MAP>65mmHg -Continue with BP meds, Cardizem 60mg Q6,, Hydralazine 50mg TID with holding parameters GI: -N.p.o. status. -IV famotidine -GI for decompression 07/02. On docusate sodium/senna 1 tablet twice daily, lactulose 30 cc 4 times daily, GoLYTELY 2 L x1 now. Mineral oil 15 mL x1 now. Methylnaltrexone 12 mg subcutaneous now. Mag citrate 250 cc x1 now. Might need neostigmine. Check abdominal x-ray in a.m. 07/04. Less abdominal pressure was 20 FEN/: -Monitor renal function, I/O's, electrolytes replacement per protocol. -Place on one quarter normal saline at 100 ml/hr, monitor sodium level. ID: -Antibiotics with cefepime and completed azithromycin. Monitor for signs of infections ( Fever, WBC) -Sputum cultures-neg to date -Will Panculture in setting of worsening leukocytosis and low grade fevers( Blood, sputum, UA with cx if indicated) HEME: -Monitor CBC, coags, Hep PLT is positive. Pending ANNMARIE. Hematology actively following. Currently on argatroban drip ENDO: -Electrolyte replacement per protocol -Sliding scale insulin medium scale PROPH: -Bilateral lower extremity SCDs. PPI , pharmacological prophylaxis on hold for worsening thrombocytopenia, PLT<100 -Check Doppler US LE r/o DVT LINES: -Utilize peripheral IVs, Critical care time 35 minutes
[2018-07-03] MEDS ORDERED: Methylnaltrexone Inj 12 MG/0.6 ML Vial SQ ONE (14:00)
[2018-07-03] MEDS ORDERED: Mineral Oil Liq 30 ML UDC PO ONE (14:00)
--- NOTE | 2018-07-03 14:37 | P.PNGI ---
Subjective Interval history: Patient mechanically ventilated, nurse at bedside reports patient having multiple watery brown stools. Patient post diagnostic colonoscopy for disimpaction Physical Exam Vital signs: Vital Signs 07/02/18 15:39 07/02/18 15:40 07/02/18 15:45 Temperature Pulse Rate 86 86 91 H Respiratory Rate 20 23 28 H Blood Pressure 73/49 L 82/55 L 136/95 H Pulse Oximetry 94 L 95 100 07/02/18 15:50 07/02/18 15:55 07/02/18 16:00 Temperature 98 F Pulse Rate 89 93 H 89 Respiratory Rate 21 20 22 Blood Pressure 130/94 H 128/81 146/85 H Pulse Oximetry 100 100 100 07/02/18 16:06 07/02/18 16:11 07/02/18 16:15 Temperature Pulse Rate 92 H 94 H 92 H Respiratory Rate 28 H 28 H 29 H Blood Pressure 131/70 147/71 H 144/74 H Pulse Oximetry 100 100 100 07/02/18 16:20 07/02/18 16:26 07/02/18 16:32 Temperature Pulse Rate 95 H 92 H 93 H Respiratory Rate 27 H 34 H 24 Blood Pressure 171/53 H 125/55 L 126/77 Pulse Oximetry 100 98 100 07/02/18 16:36 07/02/18 16:50 07/02/18 16:55 Temperature Pulse Rate 93 H 94 H 92 H Respiratory Rate 36 H 39 H 28 H Blood Pressure 114/69 120/57 L 119/58 L Pulse Oximetry 100 100 100 07/02/18 17:04 07/02/18 17:06 07/02/18 17:35 Temperature Pulse Rate 93 H 94 H 91 H Respiratory Rate 20 20 23 Blood Pressure 112/90 94/56 L 92/56 L Pulse Oximetry 100 100 98 07/02/18 17:42 07/02/18 17:46 07/02/18 17:56 Temperature Pulse Rate 96 H 96 H 96 H Respiratory Rate 20 19 19 Blood Pressure 99/58 L 93/67 L 124/71 Pulse Oximetry 98 98 97 07/02/18 18:00 07/02/18 18:05 07/02/18 18:11 Temperature Pulse Rate 94 H 94 H 93 H Respiratory Rate 21 20 22 Blood Pressure 117/57 L 110/58 L 115/56 L Pulse Oximetry 97 97 96 07/02/18 18:15 07/02/18 20:00 07/02/18 21:47 Temperature 97 F L Pulse Rate 93 H 86 Respiratory Rate 18 18 18 Blood Pressure 113/55 L 94/68 L Pulse Oximetry 97 98 99 07/02/18 21:58 07/02/18 22:00 07/03/18 00:00 Temperature 97 F L Pulse Rate 83 86 82 Respiratory Rate 18 20 Blood Pressure 103/58 L Pulse Oximetry 99 07/03/18 01:17 07/03/18 01:18 07/03/18 02:00 Temperature Pulse Rate 77 82 Respiratory Rate 19 19 Blood Pressure Pulse Oximetry 99 07/03/18 03:15 07/03/18 03:20 07/03/18 03:25 Temperature Pulse Rate 80 80 80 Respiratory Rate 18 18 18 Blood Pressure 99/57 L 103/59 L 106/57 L Pulse Oximetry 99 99 99 07/03/18 03:30 07/03/18 03:35 07/03/18 03:40 Temperature Pulse Rate 78 79 79 Respiratory Rate 18 18 18 Blood Pressure 104/59 L 105/60 119/63 Pulse Oximetry 99 100 100 07/03/18 03:45 07/03/18 03:50 07/03/18 03:55 Temperature Pulse Rate 81 82 81 Respiratory Rate 18 18 19 Blood Pressure 113/62 108/58 L 99/59 L Pulse Oximetry 100 99 100 07/03/18 04:00 07/03/18 04:05 07/03/18 04:10 Temperature 97.6 F Pulse Rate 82 81 83 Respiratory Rate 19 19 18 Blood Pressure 108/60 107/59 L 111/61 Pulse Oximetry 100 100 100 07/03/18 04:15 07/03/18 04:20 07/03/18 04:25 Temperature Pulse Rate 82 82 81 Respiratory Rate 18 18 18 Blood Pressure 88/53 L 112/62 111/68 Pulse Oximetry 99 100 100 07/03/18 04:30 07/03/18 04:35 07/03/18 04:40 Temperature Pulse Rate 80 81 82 Respiratory Rate 19 18 19 Blood Pressure 93/57 L 106/61 107/62 Pulse Oximetry 100 100 100 07/03/18 04:45 07/03/18 04:50 07/03/18 04:55 Temperature Pulse Rate 81 81 82 Respiratory Rate 18 18 18 Blood Pressure 112/61 110/60 111/60 Pulse Oximetry 100 99 99 07/03/18 05:00 07/03/18 05:05 07/03/18 05:10 Temperature Pulse Rate 83 83 84 Respiratory Rate 18 18 18 Blood Pressure 112/60 109/56 L 113/60 Pulse Oximetry 99 98 98 07/03/18 05:39 07/03/18 05:44 07/03/18 06:00 Temperature Pulse Rate 82 81 Respiratory Rate 18 Blood Pressure Pulse Oximetry 99 98 07/03/18 08:00 07/03/18 08:18 07/03/18 10:00 Temperature 98.4 F Pulse Rate 85 86 87 Respiratory Rate 21 18 Blood Pressure 113/60 Pulse Oximetry 96 97 07/03/18 11:16 Temperature Pulse Rate 86 Respiratory Rate 27 H Blood Pressure Pulse Oximetry 99 Intake & Output 07/02/18 07/03/18 07/03/18 18:59 06:59 18:59 Intake Total 450 / 450 2609.625 / 2609.625 250 / 250 Output Total 1050 / 1050 1050 / 1050 Balance -600 / -600 1559.625 / 1559.625 250 / 250 Weight 90.5 kg Intake: IV 200 / 200 1609.625 / 1609.625 250 / 250 Novastan Inj 250 MG In NS Inj 250 / 250 247.5 ML @ Per Protocol IV.CONT TITRATE PRN Rx#:[id number] Diprivan 1000 mg/100 ml Inj 1, 200 / 200 000 mg In 100 ml @ 5 MCG/KG/MIN 2.64 mls/hr IV.CONT TITRATE PRN Rx#:[id number] Sodium Chloride 23.4% Inj 38.5 1009.625 / 1009.625 MEQ In Sterile Water for Inj 1, 000 ML @ 100 mls/hr IV.CONT . Q10H6M WOLF Rx#:[id number] Maxipime Inj 2,000 MG In NS Inj 100 / 100 200 / 200 100 ML @ 200 mls/hr IV.SIG Q8H WOLF Rx#:[id number] Flagyl 500 MG Inj 100 ML @ 100 100 / 100 200 / 200 mls/hr IV.SIG Q8H WOLF Rx#: [id number] Tube Feeding 0 / 0 Tube Irrigant 200 / 200 Water Bolus Amount 50 / 50 1000 / 1000 Output: Urine Amount (Catheter) 1050 / 1050 1050 / 1050 Indwelling Urethral Catheter 1050 / 1050 1050 / 1050 Other: Bladder Irrigation Fluid - Amount Instilled Indwelling Urethral Catheter 25 Date of Last Bowel Movement 07/02/18 07/02/18 07/02/18 # Bowel Movements 2 # Incontinent Bowel Movements 2 - Urinary Catheter Management Indwelling Urethral Catheter Cath placed during this visit: yes Reason for continuing: Hourly intake/output Insertion date: 06/27/18 Insertion time: 16:00 Results - Labs CBC & Chem 7: 07/03/18 04:30 07/03/18 04:30 Laboratory Results - last 24 hr 07/02/18 07/02/18 07/02/18 13:27 18:06 20:39 WBC RBC Hgb Hct MCV MCH MCHC RDW Plt Count MPV Prelim Diff (Auto) Neut % (Auto) Lymph % (Auto) Glasscock % (Auto) Eos % (Auto) Baso % (Auto) Neut # (Auto) Lymph # (Auto) Glasscock # (Auto) Eos # (Auto) Baso # (Auto) WBC Differential Diff Scan Differential Comment APTT Puncture Site Patient Temperature O2 Saturation ABG pH ABG pCO2 ABG pO2 ABG HCO3 ABG O2 Content ABG Base Excess ABG Methemoglobin Raymon Test Hemoglobin Carboxyhemoglobin O2 Delivery Device Vent Setting Inspired O2 Critical Value Sodium Potassium Chloride Carbon Dioxide Anion Gap BUN Creatinine Estimated GFR POC Glucose 273 H 226 H Random Glucose Lactic Acid Calcium Phosphorus Magnesium Total Bilirubin AST ALT Alkaline Phosphatase Ammonia Lactate Dehydrogenase 328 H Troponin I Total Protein Albumin Vitamin B12 855 Folate 12.1 07/02/18 07/02/18 07/03/18 21:30 21:30 00:41 WBC RBC Hgb Hct MCV MCH MCHC RDW Plt Count MPV Prelim Diff (Auto) Neut % (Auto) Lymph % (Auto) Glasscock % (Auto) Eos % (Auto) Baso % (Auto) Neut # (Auto) Lymph # (Auto) Glasscock # (Auto) Eos # (Auto) Baso # (Auto) WBC Differential Diff Scan Differential Comment APTT 27.4 D Puncture Site Patient Temperature O2 Saturation ABG pH ABG pCO2 ABG pO2 ABG HCO3 ABG O2 Content ABG Base Excess ABG Methemoglobin Raymon Test Hemoglobin Carboxyhemoglobin O2 Delivery Device Vent Setting Inspired O2 Critical Value Sodium Potassium Chloride Carbon Dioxide Anion Gap BUN Creatinine Estimated GFR POC Glucose 205 H Random Glucose Lactic Acid 1.6 Calcium Phosphorus Magnesium Total Bilirubin AST ALT Alkaline Phosphatase Ammonia Lactate Dehydrogenase Troponin I Total Protein Albumin Vitamin B12 Folate 07/03/18 07/03/18 07/03/18 02:20 04:15 04:30 WBC RBC Hgb Hct MCV MCH MCHC RDW Plt Count MPV Prelim Diff (Auto) Neut % (Auto) Lymph % (Auto) Glasscock % (Auto) Eos % (Auto) Baso % (Auto) Neut # (Auto) Lymph # (Auto) Glasscock # (Auto) Eos # (Auto) Baso # (Auto) WBC Differential Diff Scan Differential Comment APTT 41.9 H D Puncture Site Patient Temperature O2 Saturation ABG pH ABG pCO2 ABG pO2 ABG HCO3 ABG O2 Content ABG Base Excess ABG Methemoglobin Raymon Test Hemoglobin Carboxyhemoglobin O2 Delivery Device Vent Setting Inspired O2 Critical Value Sodium Potassium Chloride Carbon Dioxide Anion Gap BUN Creatinine Estimated GFR POC Glucose 195 H Random Glucose Lactic Acid 1.2 Calcium Phosphorus Magnesium Total Bilirubin AST ALT Alkaline Phosphatase Ammonia Lactate Dehydrogenase Troponin I Total Protein Albumin Vitamin B12 Folate 07/03/18 07/03/18 07/03/18 04:30 04:30 04:30 WBC 19.6 H RBC 2.93 L Hgb 8.7 L Hct 26.6 L MCV 90.7 MCH 29.8 MCHC 32.9 RDW 13.3 Plt Count 49 L MPV 10.6 Prelim Diff (Auto) Slide review pending Neut % (Auto) 96.5 H Lymph % (Auto) 0.8 L Glasscock % (Auto) 2.6 Eos % (Auto) 0.0 Baso % (Auto) 0.1 Neut # (Auto) 18.9 H Lymph # (Auto) 0.2 L Glasscock # (Auto) 0.5 Eos # (Auto) 0.0 Baso # (Auto) 0.0 WBC Differential . Diff Scan Auto diff confirmed Differential Comment . APTT Puncture Site Patient Temperature O2 Saturation ABG pH ABG pCO2 ABG pO2 ABG HCO3 ABG O2 Content ABG Base Excess ABG Methemoglobin Raymon Test Hemoglobin Carboxyhemoglobin O2 Delivery Device Vent Setting Inspired O2 Critical Value Sodium 153 H Potassium 3.7 D Chloride 113 H Carbon Dioxide 31.5 Anion Gap 9 BUN 65 H Creatinine 1.22 Estimated GFR 71 L POC Glucose Random Glucose 195 H Lactic Acid Calcium 7.7 L Phosphorus 3.4 D Magnesium 2.3 Total Bilirubin 0.5 AST 17 ALT 36 Alkaline Phosphatase 49 Ammonia Less than 10 L Lactate Dehydrogenase Troponin I Less than 0.02 L Total Protein 5.4 L Albumin 2.5 L Vitamin B12 Folate 07/03/18 07/03/18 07/03/18 05:30 05:58 07:52 WBC RBC Hgb Hct MCV MCH MCHC RDW Plt Count MPV Prelim Diff (Auto) Neut % (Auto) Lymph % (Auto) Glasscock % (Auto) Eos % (Auto) Baso % (Auto) Neut # (Auto) Lymph # (Auto) Glasscock # (Auto) Eos # (Auto) Baso # (Auto) WBC Differential Diff Scan Differential Comment APTT 43.5 H Puncture Site Right radial Patient Temperature 98.6 O2 Saturation 94 ABG pH 7.42 ABG pCO2 47 H ABG pO2 80 ABG HCO3 30 H ABG O2 Content 11.6 L ABG Base Excess 5.5 H ABG Methemoglobin 1.6 Raymon Test + Hemoglobin 8.7 L Carboxyhemoglobin 0.8 O2 Delivery Device Ventilator Vent Setting Prvc/ac 18 [id number] Inspired O2 50 Critical Value No Sodium Potassium Chloride Carbon Dioxide Anion Gap BUN Creatinine Estimated GFR POC Glucose 177 H Random Glucose Lactic Acid Calcium Phosphorus Magnesium Total Bilirubin AST ALT Alkaline Phosphatase Ammonia Lactate Dehydrogenase Troponin I Total Protein Albumin Vitamin B12 Folate 07/03/18 07/03/18 07/03/18 08:55 10:20 12:08 WBC RBC Hgb Hct MCV MCH MCHC RDW Plt Count MPV Prelim Diff (Auto) Neut % (Auto) Lymph % (Auto) Glasscock % (Auto) Eos % (Auto) Baso % (Auto) Neut # (Auto) Lymph # (Auto) Glasscock # (Auto) Eos # (Auto) Baso # (Auto) WBC Differential Diff Scan Differential Comment APTT 33.7 H D Puncture Site Patient Temperature O2 Saturation ABG pH ABG pCO2 ABG pO2 ABG HCO3 ABG O2 Content ABG Base Excess ABG Methemoglobin Raymon Test Hemoglobin Carboxyhemoglobin O2 Delivery Device Vent Setting Inspired O2 Critical Value Sodium Potassium Chloride Carbon Dioxide Anion Gap BUN Creatinine Estimated GFR POC Glucose 167 H Random Glucose Lactic Acid 1.3 Calcium Phosphorus Magnesium Total Bilirubin AST ALT Alkaline Phosphatase Ammonia Lactate Dehydrogenase Troponin I Total Protein Albumin Vitamin B12 Folate 07/03/18 12:30 WBC RBC Hgb Hct MCV MCH MCHC RDW Plt Count MPV Prelim Diff (Auto) Neut % (Auto) Lymph % (Auto) Glasscock % (Auto) Eos % (Auto) Baso % (Auto) Neut # (Auto) Lymph # (Auto) Glasscock # (Auto) Eos # (Auto) Baso # (Auto) WBC Differential Diff Scan Differential Comment APTT 47.1 H D Puncture Site Patient Temperature O2 Saturation ABG pH ABG pCO2 ABG pO2 ABG HCO3 ABG O2 Content ABG Base Excess ABG Methemoglobin Raymon Test Hemoglobin Carboxyhemoglobin O2 Delivery Device Vent Setting Inspired O2 Critical Value Sodium Potassium Chloride Carbon Dioxide Anion Gap BUN Creatinine Estimated GFR POC Glucose Random Glucose Lactic Acid Calcium Phosphorus Magnesium Total Bilirubin AST ALT Alkaline Phosphatase Ammonia Lactate Dehydrogenase Troponin I Total Protein Albumin Vitamin B12 Folate Microbiology 07/02/18 05:41 Blood - Peripheral Aerobic Blood Culture - Preliminary No growth in 1 day 07/02/18 05:41 Blood - Peripheral Anaerobic Blood Culture - Preliminary No growth in 1 day 07/02/18 05:47 Blood - Peripheral Aerobic Blood Culture - Preliminary No growth in 1 day 07/02/18 05:47 Blood - Peripheral Anaerobic Blood Culture - Preliminary No growth in 1 day 07/02/18 22:00 Sputum - Endotracheal Gram Stain - Final - Imaging Impressions Chest X-Ray 07/02/18 14:46 CONCLUSION: Left IJ line in good position. There is no pneumothorax. Assessment and Plan - Plan 07/03/2018 Abdominal distention/ileus 07/02/2018 CT abdomen and pelvis revealed the following-- : Colonic distention most likely representing moderate adynamic ileus. However, distal sigmoid colon is decompressed and a sigmoid stricture is conceivable but considered less likely. Apparent mild proctitis. Clinical surveillance and follow-up CT recommended. 07/02/2018 colonoscopy diagnostic revealed the following-- Colon the sigmoid was clear then there is significant amount of stool in the descending colon transverse colon and part of the sigmoid consistent with stool impaction, disimpaction with fluid as much as possible. Rectum normal. -Abdomen remains distended ,less firm per [employer]. Nurse reports patient having multiple loose brown stools post fleets enemas, GoLYTELY, Dulcolax suppository , Relistor. Patient n.p.o. with NG to low intermittent wall suction, estimated 30 cc of brown emesis and drainage container. Plan -N.p.o. -NG to low intermittent wall suction -Continue bowel regimen -Monitor for stool output -Lactulose 4 times daily -Antiemetics as needed -Continue PPI -IV hydration -Supportive care -Further recommendations to follow This patient has been seen by myself and Dr. Chauhan and this note is written on his behalf - Attending Attestation DR. HOLLOWAY
--- NOTE | 2018-07-03 16:38 | P.PNPL ---
Subjective Interval history: 73 YOAA male with COPD, 02 dependent Follows at [facility] Admitted with AMS, COPD exac Remains intubated NGT to suction On Argatroban drip Family at Physical Exam Vital signs: Vital Signs 07/02/18 16:50 07/02/18 16:55 07/02/18 17:04 Temperature Pulse Rate 94 H 92 H 93 H Respiratory Rate 39 H 28 H 20 Blood Pressure 120/57 L 119/58 L 112/90 Pulse Oximetry 100 100 100 07/02/18 17:06 07/02/18 17:35 07/02/18 17:42 Temperature Pulse Rate 94 H 91 H 96 H Respiratory Rate 20 23 20 Blood Pressure 94/56 L 92/56 L 99/58 L Pulse Oximetry 100 98 98 07/02/18 17:46 07/02/18 17:56 07/02/18 18:00 Temperature Pulse Rate 96 H 96 H 94 H Respiratory Rate 19 19 21 Blood Pressure 93/67 L 124/71 117/57 L Pulse Oximetry 98 97 97 07/02/18 18:05 07/02/18 18:11 07/02/18 18:15 Temperature Pulse Rate 94 H 93 H 93 H Respiratory Rate 20 22 18 Blood Pressure 110/58 L 115/56 L 113/55 L Pulse Oximetry 97 96 97 07/02/18 20:00 07/02/18 21:47 07/02/18 21:58 Temperature 97 F L Pulse Rate 86 83 Respiratory Rate 18 18 18 Blood Pressure 94/68 L Pulse Oximetry 98 99 07/02/18 22:00 07/03/18 00:00 07/03/18 01:17 Temperature 97 F L Pulse Rate 86 82 77 Respiratory Rate 20 19 Blood Pressure 103/58 L Pulse Oximetry 99 07/03/18 01:18 07/03/18 02:00 07/03/18 03:15 Temperature Pulse Rate 82 80 Respiratory Rate 19 18 Blood Pressure 99/57 L Pulse Oximetry 99 99 07/03/18 03:20 07/03/18 03:25 07/03/18 03:30 Temperature Pulse Rate 80 80 78 Respiratory Rate 18 18 18 Blood Pressure 103/59 L 106/57 L 104/59 L Pulse Oximetry 99 99 99 07/03/18 03:35 07/03/18 03:40 07/03/18 03:45 Temperature Pulse Rate 79 79 81 Respiratory Rate 18 18 18 Blood Pressure 105/60 119/63 113/62 Pulse Oximetry 100 100 100 07/03/18 03:50 07/03/18 03:55 07/03/18 04:00 Temperature 97.6 F Pulse Rate 82 81 82 Respiratory Rate 18 19 19 Blood Pressure 108/58 L 99/59 L 108/60 Pulse Oximetry 99 100 100 07/03/18 04:05 07/03/18 04:10 07/03/18 04:15 Temperature Pulse Rate 81 83 82 Respiratory Rate 19 18 18 Blood Pressure 107/59 L 111/61 88/53 L Pulse Oximetry 100 100 99 07/03/18 04:20 07/03/18 04:25 07/03/18 04:30 Temperature Pulse Rate 82 81 80 Respiratory Rate 18 18 19 Blood Pressure 112/62 111/68 93/57 L Pulse Oximetry 100 100 100 07/03/18 04:35 07/03/18 04:40 07/03/18 04:45 Temperature Pulse Rate 81 82 81 Respiratory Rate 18 19 18 Blood Pressure 106/61 107/62 112/61 Pulse Oximetry 100 100 100 07/03/18 04:50 07/03/18 04:55 07/03/18 05:00 Temperature Pulse Rate 81 82 83 Respiratory Rate 18 18 18 Blood Pressure 110/60 111/60 112/60 Pulse Oximetry 99 99 99 07/03/18 05:05 07/03/18 05:10 07/03/18 05:39 Temperature Pulse Rate 83 84 Respiratory Rate 18 18 18 Blood Pressure 109/56 L 113/60 Pulse Oximetry 98 98 99 07/03/18 05:44 07/03/18 06:00 07/03/18 08:00 Temperature 98.4 F Pulse Rate 82 81 85 Respiratory Rate 18 18 21 Blood Pressure 113/60 Pulse Oximetry 98 96 07/03/18 08:18 07/03/18 10:00 07/03/18 10:30 Temperature Pulse Rate 86 87 86 Respiratory Rate 18 30 H 30 H Blood Pressure 109/62 Pulse Oximetry 97 97 97 07/03/18 11:00 07/03/18 11:16 07/03/18 12:00 Temperature 98.3 F Pulse Rate 85 86 93 H Respiratory Rate 32 H 27 H 31 H Blood Pressure 111/67 101/62 Pulse Oximetry 98 99 96 07/03/18 13:00 07/03/18 14:00 07/03/18 14:53 Temperature Pulse Rate 91 H 91 H 93 H Respiratory Rate 32 H 27 H 28 H Blood Pressure 106/65 116/59 L Pulse Oximetry 94 L 95 07/03/18 15:54 Temperature Pulse Rate Respiratory Rate 25 H Blood Pressure Pulse Oximetry 96 Intake & Output 07/02/18 07/03/18 07/03/18 18:59 06:59 18:59 Intake Total 450 / 450 2609.625 / 2609.625 1259.625 / 1259.625 Output Total 1050 / 1050 1050 / 1050 Balance -600 / -600 1559.625 / 4279.118 6105.625 / 1259.625 Weight 90.5 kg Intake: IV 200 / 200 1609.625 / 3668.509 2097.625 / 1259.625 Novastan Inj 250 MG In NS Inj 250 / 250 247.5 ML @ Per Protocol IV.CONT TITRATE PRN Rx#:[id number] Diprivan 1000 mg/100 ml Inj 1, 200 / 200 000 mg In 100 ml @ 5 MCG/KG/MIN 2.64 mls/hr IV.CONT TITRATE PRN Rx#:[id number] Sodium Chloride 23.4% Inj 38.5 1009.625 / 4648.733 0754.625 / 1009.625 MEQ In Sterile Water for Inj 1, 000 ML @ 100 mls/hr IV.CONT . Q10H6M WOLF Rx#:[id number] Maxipime Inj 2,000 MG In NS Inj 100 / 100 200 / 200 100 ML @ 200 mls/hr IV.SIG Q8H WOLF Rx#:[id number] Flagyl 500 MG Inj 100 ML @ 100 100 / 100 200 / 200 mls/hr IV.SIG Q8H WOLF Rx#: [id number] Tube Feeding 0 / 0 Tube Irrigant 200 / 200 Water Bolus Amount 50 / 50 1000 / 1000 Output: Urine Amount (Catheter) 1050 / 1050 1050 / 1050 Indwelling Urethral Catheter 1050 / 1050 1050 / 1050 Other: Bladder Irrigation Fluid - Amount Instilled Indwelling Urethral Catheter 25 Date of Last Bowel Movement 07/02/18 07/02/18 07/02/18 # Bowel Movements 2 # Incontinent Bowel Movements 2 GENERAL: Obese AA male, on Vent SKIN: Warm and dry. HEAD: Normocephalic. EYES: No scleral icterus. No injection or drainage. NECK: Supple, trachea midline. No JVD or lymphadenopathy. CARDIOVASCULAR: Regular rate and rhythm without murmurs, gallops, or rubs. RESPIRATORY: Breath sounds equal bilaterally. No accessory muscle use. GASTROINTESTINAL: Abdomen soft, non-tender,distended. MUSCULOSKELETAL: No cyanosis, or edema. BACK: Nontender without obvious deformity. No CVA tenderness. 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 DW Family at BS.
--- NOTE | 2018-07-03 22:30 | P.PNONC ---
Subjective Interval history: Intubated and sedated. Sister is at bedside. Objective Vital Signs/Intake & Output: Vital Signs 07/03/18 00:00 07/03/18 01:17 07/03/18 01:18 Temperature 97 F L Pulse Rate 82 77 Respiratory Rate 20 19 19 Blood Pressure 103/58 L Pulse Oximetry 99 99 07/03/18 02:00 07/03/18 03:15 07/03/18 03:20 Temperature Pulse Rate 82 80 80 Respiratory Rate 18 18 Blood Pressure 99/57 L 103/59 L Pulse Oximetry 99 99 07/03/18 03:25 07/03/18 03:30 07/03/18 03:35 Temperature Pulse Rate 80 78 79 Respiratory Rate 18 18 18 Blood Pressure 106/57 L 104/59 L 105/60 Pulse Oximetry 99 99 100 07/03/18 03:40 07/03/18 03:45 07/03/18 03:50 Temperature Pulse Rate 79 81 82 Respiratory Rate 18 18 18 Blood Pressure 119/63 113/62 108/58 L Pulse Oximetry 100 100 99 07/03/18 03:55 07/03/18 04:00 07/03/18 04:05 Temperature 97.6 F Pulse Rate 81 82 81 Respiratory Rate 19 19 19 Blood Pressure 99/59 L 108/60 107/59 L Pulse Oximetry 100 100 100 07/03/18 04:10 07/03/18 04:15 07/03/18 04:20 Temperature Pulse Rate 83 82 82 Respiratory Rate 18 18 18 Blood Pressure 111/61 88/53 L 112/62 Pulse Oximetry 100 99 100 07/03/18 04:25 07/03/18 04:30 07/03/18 04:35 Temperature Pulse Rate 81 80 81 Respiratory Rate 18 19 18 Blood Pressure 111/68 93/57 L 106/61 Pulse Oximetry 100 100 100 07/03/18 04:40 07/03/18 04:45 07/03/18 04:50 Temperature Pulse Rate 82 81 81 Respiratory Rate 19 18 18 Blood Pressure 107/62 112/61 110/60 Pulse Oximetry 100 100 99 07/03/18 04:55 07/03/18 05:00 07/03/18 05:05 Temperature Pulse Rate 82 83 83 Respiratory Rate 18 18 18 Blood Pressure 111/60 112/60 109/56 L Pulse Oximetry 99 99 98 07/03/18 05:10 07/03/18 05:39 07/03/18 05:44 Temperature Pulse Rate 84 82 Respiratory Rate 18 18 18 Blood Pressure 113/60 Pulse Oximetry 98 99 07/03/18 06:00 07/03/18 08:00 07/03/18 08:18 Temperature 98.4 F Pulse Rate 81 85 86 Respiratory Rate 18 21 18 Blood Pressure 113/60 Pulse Oximetry 98 96 97 07/03/18 10:00 07/03/18 10:30 07/03/18 11:00 Temperature Pulse Rate 87 86 85 Respiratory Rate 30 H 30 H 32 H Blood Pressure 109/62 111/67 Pulse Oximetry 97 97 98 07/03/18 11:16 07/03/18 12:00 07/03/18 13:00 Temperature 98.3 F Pulse Rate 86 93 H 91 H Respiratory Rate 27 H 31 H 32 H Blood Pressure 101/62 106/65 Pulse Oximetry 99 96 94 L 07/03/18 14:00 07/03/18 14:53 07/03/18 15:00 Temperature Pulse Rate 91 H 93 H 92 H Respiratory Rate 27 H 28 H 26 H Blood Pressure 116/59 L 123/56 L Pulse Oximetry 95 95 07/03/18 15:54 07/03/18 16:00 07/03/18 17:01 Temperature 98.0 F Pulse Rate 101 H 104 H Respiratory Rate 25 H 25 H 26 H Blood Pressure 120/66 143/65 H Pulse Oximetry 96 95 96 07/03/18 18:00 07/03/18 19:00 07/03/18 20:00 Temperature Pulse Rate 102 H 96 H 94 H Respiratory Rate 20 17 19 Blood Pressure 134/63 130/61 Pulse Oximetry 98 95 100 Intake & Output 07/03/18 07/03/18 07/04/18 06:59 18:59 06:59 Intake Total 2609.625 / 2609.625 1559.625 / 1559.625 100 / 100 Output Total 1050 / 1050 1150 / 1150 Balance 1559.625 / 1559.625 409.625 / 409.625 100 / 100 Weight 90.5 kg Intake: IV 1609.625 / 6327.943 3515.625 / 1559.625 100 / 100 Novastan Inj 250 MG In NS Inj 250 / 250 247.5 ML @ Per Protocol IV.CONT TITRATE PRN Rx#:[id number] Diprivan 1000 mg/100 ml Inj 1, 200 / 200 100 / 100 000 mg In 100 ml @ 5 MCG/KG/MIN 2.64 mls/hr IV.CONT TITRATE PRN Rx#:[id number] Sodium Chloride 23.4% Inj 38.5 1009.625 / 9260.651 1701.625 / 1009.625 MEQ In Sterile Water for Inj 1, 000 ML @ 100 mls/hr IV.CONT . Q10H6M ANTOINE Rx#:[id number] Maxipime Inj 2,000 MG In NS Inj 200 / 200 100 / 100 100 / 100 100 ML @ 200 mls/hr IV.SIG Q8H ANTOINE Rx#:[id number] Flagyl 500 MG Inj 100 ML @ 100 200 / 200 100 / 100 mls/hr IV.SIG Q8H ANTOINE Rx#: [id number] Water Bolus Amount 1000 / 1000 Output: Urine Amount (Catheter) 1050 / 1050 1150 / 1150 Indwelling Urethral Catheter 1050 / 1050 1150 / 1150 Other: Bladder Irrigation Fluid - Amount Instilled Indwelling Urethral Catheter 50 Date of Last Bowel Movement 07/02/18 07/03/18 # Bowel Movements 1 # Incontinent Bowel Movements 1 Result Diagrams: 07/03/18 04:30 07/03/18 04:30 Laboratory Results: Laboratory Results - last 24 hr 07/02/18 07/02/18 07/03/18 21:30 21:30 00:41 WBC RBC Hgb Hct MCV MCH MCHC RDW Plt Count MPV Prelim Diff (Auto) Neut % (Auto) Lymph % (Auto) [place] % (Auto) Eos % (Auto) Baso % (Auto) Neut # (Auto) Lymph # (Auto) [place] # (Auto) Eos # (Auto) Baso # (Auto) WBC Differential Diff Scan Differential Comment APTT 27.4 D Puncture Site Patient Temperature O2 Saturation ABG pH ABG pCO2 ABG pO2 ABG HCO3 ABG O2 Content ABG Base Excess ABG Methemoglobin Raymon Test Hemoglobin Carboxyhemoglobin O2 Delivery Device Vent Setting Inspired O2 Critical Value Sodium Potassium Chloride Carbon Dioxide Anion Gap BUN Creatinine Estimated GFR POC Glucose 205 H Random Glucose Lactic Acid 1.6 Calcium Phosphorus Magnesium Total Bilirubin AST ALT Alkaline Phosphatase Ammonia Troponin I Total Protein Albumin 07/03/18 07/03/18 07/03/18 02:20 04:15 04:30 WBC RBC Hgb Hct MCV MCH MCHC RDW Plt Count MPV Prelim Diff (Auto) Neut % (Auto) Lymph % (Auto) [place] % (Auto) Eos % (Auto) Baso % (Auto) Neut # (Auto) Lymph # (Auto) [place] # (Auto) Eos # (Auto) Baso # (Auto) WBC Differential Diff Scan Differential Comment APTT 41.9 H D Puncture Site Patient Temperature O2 Saturation ABG pH ABG pCO2 ABG pO2 ABG HCO3 ABG O2 Content ABG Base Excess ABG Methemoglobin Raymon Test Hemoglobin Carboxyhemoglobin O2 Delivery Device Vent Setting Inspired O2 Critical Value Sodium Potassium Chloride Carbon Dioxide Anion Gap BUN Creatinine Estimated GFR POC Glucose 195 H Random Glucose Lactic Acid 1.2 Calcium Phosphorus Magnesium Total Bilirubin AST ALT Alkaline Phosphatase Ammonia Troponin I Total Protein Albumin 07/03/18 07/03/18 07/03/18 04:30 04:30 04:30 WBC 19.6 H RBC 2.93 L Hgb 8.7 L Hct 26.6 L MCV 90.7 MCH 29.8 MCHC 32.9 RDW 13.3 Plt Count 49 L MPV 10.6 Prelim Diff (Auto) Slide review pending Neut % (Auto) 96.5 H Lymph % (Auto) 0.8 L [place] % (Auto) 2.6 Eos % (Auto) 0.0 Baso % (Auto) 0.1 Neut # (Auto) 18.9 H Lymph # (Auto) 0.2 L [place] # (Auto) 0.5 Eos # (Auto) 0.0 Baso # (Auto) 0.0 WBC Differential . Diff Scan Auto diff confirmed Differential Comment . APTT Puncture Site Patient Temperature O2 Saturation ABG pH ABG pCO2 ABG pO2 ABG HCO3 ABG O2 Content ABG Base Excess ABG Methemoglobin Raymon Test Hemoglobin Carboxyhemoglobin O2 Delivery Device Vent Setting Inspired O2 Critical Value Sodium 153 H Potassium 3.7 D Chloride 113 H Carbon Dioxide 31.5 Anion Gap 9 BUN 65 H Creatinine 1.22 Estimated GFR 71 L POC Glucose Random Glucose 195 H Lactic Acid Calcium 7.7 L Phosphorus 3.4 D Magnesium 2.3 Total Bilirubin 0.5 AST 17 ALT 36 Alkaline Phosphatase 49 Ammonia Less than 10 L Troponin I Less than 0.02 L Total Protein 5.4 L Albumin 2.5 L 07/03/18 07/03/18 07/03/18 05:30 05:58 07:52 WBC RBC Hgb Hct MCV MCH MCHC RDW Plt Count MPV Prelim Diff (Auto) Neut % (Auto) Lymph % (Auto) [place] % (Auto) Eos % (Auto) Baso % (Auto) Neut # (Auto) Lymph # (Auto) [place] # (Auto) Eos # (Auto) Baso # (Auto) WBC Differential Diff Scan Differential Comment APTT 43.5 H Puncture Site Right radial Patient Temperature 98.6 O2 Saturation 94 ABG pH 7.42 ABG pCO2 47 H ABG pO2 80 ABG HCO3 30 H ABG O2 Content 11.6 L ABG Base Excess 5.5 H ABG Methemoglobin 1.6 Raymon Test + Hemoglobin 8.7 L Carboxyhemoglobin 0.8 O2 Delivery Device Ventilator Vent Setting Prvc/ac 18 [id number] Inspired O2 50 Critical Value No Sodium Potassium Chloride Carbon Dioxide Anion Gap BUN Creatinine Estimated GFR POC Glucose 177 H Random Glucose Lactic Acid Calcium Phosphorus Magnesium Total Bilirubin AST ALT Alkaline Phosphatase Ammonia Troponin I Total Protein Albumin 07/03/18 07/03/18 07/03/18 08:55 10:20 12:08 WBC RBC Hgb Hct MCV MCH MCHC RDW Plt Count MPV Prelim Diff (Auto) Neut % (Auto) Lymph % (Auto) [place] % (Auto) Eos % (Auto) Baso % (Auto) Neut # (Auto) Lymph # (Auto) [place] # (Auto) Eos # (Auto) Baso # (Auto) WBC Differential Diff Scan Differential Comment APTT 33.7 H D Puncture Site Patient Temperature O2 Saturation ABG pH ABG pCO2 ABG pO2 ABG HCO3 ABG O2 Content ABG Base Excess ABG Methemoglobin Raymon Test Hemoglobin Carboxyhemoglobin O2 Delivery Device Vent Setting Inspired O2 Critical Value Sodium Potassium Chloride Carbon Dioxide Anion Gap BUN Creatinine Estimated GFR POC Glucose 167 H Random Glucose Lactic Acid 1.3 Calcium Phosphorus Magnesium Total Bilirubin AST ALT Alkaline Phosphatase Ammonia Troponin I Total Protein Albumin 07/03/18 07/03/18 07/03/18 12:30 16:30 16:40 WBC RBC Hgb Hct MCV MCH MCHC RDW Plt Count MPV Prelim Diff (Auto) Neut % (Auto) Lymph % (Auto) [place] % (Auto) Eos % (Auto) Baso % (Auto) Neut # (Auto) Lymph # (Auto) [place] # (Auto) Eos # (Auto) Baso # (Auto) WBC Differential Diff Scan Differential Comment APTT 47.1 H D Puncture Site Patient Temperature O2 Saturation ABG pH ABG pCO2 ABG pO2 ABG HCO3 ABG O2 Content ABG Base Excess ABG Methemoglobin Raymon Test Hemoglobin Carboxyhemoglobin O2 Delivery Device Vent Setting Inspired O2 Critical Value Sodium Potassium Chloride Carbon Dioxide Anion Gap BUN Creatinine Estimated GFR POC Glucose 212 H Random Glucose Lactic Acid 1.0 Calcium Phosphorus Magnesium Total Bilirubin AST ALT Alkaline Phosphatase Ammonia Troponin I Total Protein Albumin 07/03/18 07/03/18 16:40 19:54 WBC RBC Hgb Hct MCV MCH MCHC RDW Plt Count MPV Prelim Diff (Auto) Neut % (Auto) Lymph % (Auto) [place] % (Auto) Eos % (Auto) Baso % (Auto) Neut # (Auto) Lymph # (Auto) [place] # (Auto) Eos # (Auto) Baso # (Auto) WBC Differential Diff Scan Differential Comment APTT 65.1 H D Puncture Site Patient Temperature O2 Saturation ABG pH ABG pCO2 ABG pO2 ABG HCO3 ABG O2 Content ABG Base Excess ABG Methemoglobin Raymon Test Hemoglobin Carboxyhemoglobin O2 Delivery Device Vent Setting Inspired O2 Critical Value Sodium Potassium Chloride Carbon Dioxide Anion Gap BUN Creatinine Estimated GFR POC Glucose 230 H Random Glucose Lactic Acid Calcium Phosphorus Magnesium Total Bilirubin AST ALT Alkaline Phosphatase Ammonia Troponin I Total Protein Albumin Culture Results: Microbiology 07/02/18 05:41 Aerobic Blood Culture - Preliminary Blood - Peripheral No growth in 1 day Anaerobic Blood Culture - Preliminary No growth in 1 day 07/02/18 05:47 Aerobic Blood Culture - Preliminary Blood - Peripheral No growth in 1 day Anaerobic Blood Culture - Preliminary No growth in 1 day 07/02/18 22:00 Gram Stain - Final Sputum - Endotracheal Medications: Active Medications Generic Name Dose Route Start Last Admin Trade Name Freq PRN Reason Stop Dose Admin Acetaminophen 650 mg 06/20/18 02:11 07/01/18 15:05 Tylenol PO 650 mg Q4H PRN Administration Temp > 100.4 Albuterol 1 ampul 06/26/18 12:00 07/03/18 20:25 Duoneb Neb (Antoine) NEB 1 ampul Q4HR NEB ANTOINE Administration Artificial Tears 1 drop 07/02/18 16:00 07/03/18 16:20 Tears Naturale Opth Drops EACH EYE 1 drop Q8H ANTOINE Administration Bisacodyl 10 mg 06/24/18 15:15 07/03/18 08:06 Dulcolax Supp RECTAL 10 mg DAILY ANTOINE Administration Budesonide 0.5 mg 06/26/18 20:00 07/03/18 20:25 Pulmocort Respule Neb NEB 0.5 mg Q12HR NEB ANTOINE Administration Chlorhexidine Gluconate 15 ml 06/26/18 20:00 07/03/18 20:13 Peridex 0.12% Oral Kit OROPHARYNG 15 ml BID@0800,1999 ANTOINE Administration Diltiazem HCl 60 mg 06/30/18 09:00 07/03/18 20:12 Cardizem PO 60 mg QID ANTOINE Administration Duloxetine HCl 20 mg 06/23/18 18:00 06/28/18 09:09 Cymbalta PO Not Given DAILY ANTOINE Famotidine 20 mg 07/01/18 18:00 07/03/18 17:09 Pepcid Pf Inj IV.PUSH 20 mg Q12H ANTOINE Administration Hydralazine HCl 50 mg 06/23/18 18:00 07/03/18 17:09 Apresoline PO Not Given TID ANTOINE Argatroban 250 mg/ Sodium 250 mls @ 0 mls/hr 07/02/18 03:49 07/03/18 18:30 Chloride IV.CONT 4 mcg/kg/min TITRATE PRN 21.12 mls/hr Per Protocol Titration Protocol Per Protocol Propofol 1,000 mg in 100 mls @ 2.64 mls/hr 07/02/18 04:21 07/03/18 21:00 Diprivan 1000 Mg/100 Ml Inj IV.CONT 20 mcg/kg/min TITRATE PRN 10.56 mls/hr Per Protocol Administration Protocol 5 MCG/KG/MIN Cefepime HCl 2,000 mg/ Sodium 100 mls @ 200 mls/hr 07/02/18 05:00 07/03/18 20 :45 Chloride IV.SIG Infused Q8H ANTOINE Infusion Metronidazole/Sodium Chloride 100 mls @ 100 mls/hr 07/02/18 06:00 07/03/18 21 :10 Flagyl 500 Mg Inj IV.SIG 100 mls/hr Q8H ANTOINE Administration Norepinephrine Bitartrate 16 250 mls @ 1.87 mls/hr 07/02/18 14:15 07/03/18 20 :09 mg/ Sodium Chloride IV.CONT 2 mcg/min TITRATE PRN 1.87 mls/hr See Protocol Titration Protocol 2 MCG/MIN Sodium Chloride 38.5 meq/ 1,009.625 mls @ 100 mls/hr 07/02/18 16:00 07/03/18 16:31 Sterile Water IV.CONT 100 mls/hr .Q10H6M ANTOINE Administration Insulin Human Regular 0 units 06/28/18 08:00 07/03/18 21:43 Novolin R Correctional Sugar Inj SQ 4 units Q4HR ANTOINE Administration Protocol Lactulose 30 ml 07/03/18 13:00 07/03/18 20:12 Lactulose Liq PO 30 ml QID ANTOINE Administration Methylprednisolone Sodium Succinate 40 mg 06/28/18 08:00 07/03/18 16:19 Solumedrol Inj IV.PUSH 40 mg Q8H ANTOINE Administration Metoprolol Tartrate 2.5 mg 06/27/18 15:08 07/01/18 01:26 Lopressor Inj IV.PUSH 2.5 mg Q6H PRN Administration HEART RATE GREATER THAN 115 Miscellaneous Medication 1 each 06/26/18 12:00 07/03/18 16:19 OROPHARYNG 1 each 0000,0400,1200,1600 ANTOINE Administration Pantoprazole Sodium 20 mg 06/20/18 09:00 06/28/18 09:09 Protonix PO Not Given DAILY ANTOINE Senna/Docusate Sodium 1 tab 06/20/18 09:00 07/03/18 20:12 Maria Guadalupe-Colace PO 1 tab BID ANTOINE Administration Simethicone 80 mg 06/24/18 18:30 07/03/18 21:10 Mylicon Chew PO 80 mg PCHS ANTOINE Administration Sodium Chloride 2 ml 06/20/18 09:00 07/03/18 20:13 Ns Flush IV.FLUSH 2 ml BID ANTOINE Administration Sodium Chloride 2 ml 06/20/18 02:09 07/03/18 05:01 Ns Flush IV.FLUSH 2 ml PRN PRN Administration FLUSH AFTER USING IV ACCESS Sodium Chloride 0 ml 07/03/18 09:00 07/03/18 08:08 Ns Flush IV.FLUSH 2 ml DAILY ANTOINE Administration Whey 1 packet 06/28/18 09:00 07/03/18 17:10 Beneprotein Powder G-TUBE 1 packet TID ANTOINE Administration Objective Remarks: GENERAL: chronically ill appearing man, no distress SKIN: Warm and dry. HEAD: Normocephalic. EYES: No scleral icterus. No injection or drainage. CARDIOVASCULAR: Regular rate and rhythm without murmurs. RESPIRATORY: intubated, breath sounds equal bilaterally GASTROINTESTINAL: distended EXTREMITIES: No cyanosis, or edema. MUSCULOSKELETAL: Adequate muscle tone. NEUROLOGICAL: follows commands Assessment/Plan - Plan 1. TCP: fibrinogen within normal limits, coags WNL. No evidence of DIC. HIT positive, ANNMARIE pending. Duplex ultrasound of bilateral lower extremity negative , no PE. No upper extremity thormbosis. Smear with limited fragments, LDH slighly elevated, haptoglobin WNL. No evidence of TMA/hemolysis. No evidence of hypersplenism, liver disease. Early cells (metamyelocytes) present on differential, however this can be presents in illness/steroids. will continue to monitor. 2. Leukocytosis: reactive. steroids, on abx. 3. Anemia: critical illness, contiue to monitor. 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
[2018-07-03 23:53] LABS: SSA High Dose 100 IU/mL 3 (2.1-21.7); SSA Low Dose 0.1IU/mL 3 (2.1-21.7); SSA Low Dose 0.5 IU/mL 2 (2.1-21.7); Serotonin Release Result NEGATIVE (NEGATIVE)
[2018-07-04] MEDS: Insulin NovoLIN Regular Correctional Sugar Inj SQ SCH ×7 (00:18→23:16)
[2018-07-04 00:22] LABS: Baso % (Auto) 0.1 % (0.0-2.0); Hematocrit 26.5 % (39.0-51.0); Hemoglobin 8.3 gm/dL (13.0-17.0); Lymph # (Auto) 0.2 th/mm3 (1.0-4.8); Mean Corpuscular HGB Conc 31.4 % (32.0-36.0); Mean Corpuscular Hemoglobin 29.1 pg (27.0-34.0); Mean Corpuscular Volume 92.5 fL (80.0-100.0); Mean Platelet Volume 11.4 fL (7.0-11.0); Mono # (Auto) 0.6 th/mm3 (0.0-0.9); Mono % (Auto) 3.3 % (0.0-8.0); Neut # (Auto) 16.3 th/mm3 (1.8-7.7); Neut % (Auto) 95.6 % (16.0-70.0); Platelet Count 50 th/mm3 (150-450); Red Blood Count 2.86 mil/mm3 (4.50-5.90); Red Cell Distribution Width 13.7 % (11.6-17.2)
[2018-07-04] MEDS: Argatroban Inj 250 MG in Sodium Chlor 0.9% Inj 247.5 ML IV.CONT PRN (00:24)
[2018-07-04 00:48] LABS: Albumin 2.6 g/dL (3.4-5.0); Calcium 7.4 mg/dL (8.5-10.1); Carbon Dioxide 30.5 meq/L (21.0-32.0); Magnesium 2.3 mg/dL (1.5-2.5); Phosphorus 2.9 mg/dL (2.5-4.9); Potassium 3.2 meq/L (3.5-5.1); Total Protein 5.6 g/dL (6.4-8.2)
[2018-07-04] MEDS ORDERED: Neostigmine Inj 5 MG/5 ML Syringe IV.PUSH ONE (00:54)
[2018-07-04] MEDS ORDERED: Magnesium Citrate Liq 300 ML Bottle PO ONE (01:21)
[2018-07-04 01:30] LABS: Lymphocytes 1 % (9-44); Monocytes 7 % (0-8); Myelocytes 1 % (0-0)
[2018-07-04] MEDS: Potassium Chlor 40 mEq Premix 40 MEQ/100 ML PIGGYBACK IV.SIG PRN ×2 (01:31→05:15)
[2018-07-04 01:32] LABS: RBC Morphology Normal (Normal)
[2018-07-04] MEDS ORDERED: Atropine Inj 1 MG/10 ML Syringe ONE (01:55)
--- NOTE | 2018-07-04 02:08 | XR ---
EXAM DATE: 07/04/2018 1:30 AM EDT AGE/SEX: 73 years / Male INDICATIONS: Abdominal distension CLINICAL DATA: This is the patient's subsequent encounter. Patient reports that signs and symptoms h ave been present for 3 days and indicates a pain score of Nonresponsive. MEDICAL/SURGICAL HISTORY: . Asthma. Chronic obstructive pulmonary disease. Hypertension None. [place] [facility] [place]. . FINDINGS: Examination of the abdomen demonstrates gaseous distention of the colon most consistent with ileus . There are no findings of small bowel obstruction. No free air is identified. No organomegaly is evide nt. A nasogastric tube is in place with its tip in the stomach. CONCLUSION: Findings of colonic ileus Electronically signed by: Carl Salmon MD 07/04/2018 2:07 AM EDT
--- NOTE | 2018-07-04 02:38 | XR ---
EXAM DATE: 07/04/2018 2:29 AM EDT AGE/SEX: 73 years / Male INDICATIONS: Shortness of breath, possible pulmonary disease. CLINICAL DATA: This is the patient's subsequent encounter. Patient reports that signs and symptoms h ave been present for 1 week and indicates a pain score of Nonresponsive. MEDICAL/SURGICAL HISTORY: . Asthma. Chronic obstructive pulmonary disease. Hypertension. None. [place]PAR[place] [facility] [place]. . FINDINGS: The cardiac silhouette is enlarged in transverse diameter. Support lines and tubes are in satisfactor y position. There is prominence of the central pulmonary vasculature with indistinct vascular margins compatible with vascular congestion but no evidence of overt failure. No pleural effusions are ident ified. CONCLUSION: Cardiomegaly and findings of vascular congestion without overt failure. There has been no significant change when compared to the prior exam. Electronically signed by: Carl Salmon MD 07/04/2018 2:37 AM EDT
[2018-07-04] MEDS: Sodium Chloride 23.4% Inj 38.5 MEQ in Water for Inj, Sterile 1,000 ML IV.CONT SCH ×3 (03:50→23:13)
[2018-07-04] MEDS: Oral Hygiene Kit OROPHARYNG SCH ×4 (04:28→23:13)
[2018-07-04] MEDS: Famotidine PF Inj 20 MG/2 ML Vial IV.PUSH SCH ×2 (06:43→17:39)
[2018-07-04] MEDS: Propofol 1000 mg/100 ml Inj 1,000 MG/100 ML BOTTLE IV.CONT PRN (07:45)
[2018-07-04] MEDS: dilTIAZem 60 MG Tablet PO SCH ×4 (08:17→20:18)
[2018-07-04] MEDS: Chlorhexidine 0.12% Oral Kit 15 ML UDC OROPHARYNG SCH ×2 (08:18→20:18)
[2018-07-04] MEDS: Senna/Docusate Sodium 8.6/50 MG Tablet PO SCH ×2 (08:18→20:18)
[2018-07-04] MEDS: MethylPREDNISolone Sod Succinate Inj 40 MG/ML Vial IV.PUSH SCH ×2 (08:18→20:18)
--- NOTE | 2018-07-04 08:19 | P.PNCC ---
Subjective Subjective Remarks/Hospital Course: Mr. Curry is a 73-year-old -[place] male with past medical history significant for COPD on 3 L nasal cannula, hypertension, hyperlipidemia and anxiety who was admitted to the hospitalist service on 06/19/2018 for worsening shortness of breath due to COPD exacerbation. He was treated with IV Solu- Medrol, IV antibiotics, breathing treatments gradually improved. Patient was also complaining about dyspepsia and underwent EGD by GI yesterday. Per report the EGD was normal but patient developed worsening shortness of breath and COPD exacerbation postprocedure, possibly from aspiration after sedated. Two ABGs done yesterday showed hypercapnic respiratory failure second 1 was on BiPAP and this was improved with pH 7.3 with PCO2 of 74. Patient remained on BiPAP overnight however was noticed to be lethargic today a.m., stat ABG showed pH of 7.21 PCO2 110 PO2 88 while on BiPAP. Patient was lethargic intermittently dozing off due to CO2 narcosis. Critical care medicine was consulted and I immediately evaluated the patient. Patient had obviously failed BiPAP I proceeded with endotracheal intubation placed on mechanical ventilation. Postintubation I have ordered single dose of Solu-Medrol 125 mg x1 continue Solu -Medrol 60 every 8, discontinue ceftriaxone and start cefepime 2 g IV every 8 hours continue azithromycin. Add budesonide inhaled, placed on scheduled DuoNeb every 4 hours and as needed. 06/27: Patient was intubated yesterday for severe hypercapnic respiratory failure. Currently remains intubated sedated and intubated remains diminished bilaterally. Heavily sedated for ventilator synchrony 06/28: Urine output significantly improved with fluid resuscitation. Creat down trending now 2 from 2.3, UO >3.3 L. Remains intubated sedated. Will initiate daily sedation vacation and CPAP trials 06/29: More awake today tolerating CPAP trials intermittently follows commands but gets agitated/frustrated fast. Urine output remains excellent creatinine 1.4. However sodium increasing 158 today. Night mobile application architect had changed fluid to D5 W for free water replacement. Due to hypoglycemia will change to quarter normal saline at 150 mL/h repeat CMP in the afternoon 06/30 Patient was extubated yesterday. Awake 07/01 Patient is lying in bed in NAD. T: 100.5 07/02: Intubated early this morning due to acute hypoxic respiratory failure. Central line placed due to hypotension. Plan for GI perform endoscopic decompression of this large bowel today. Arousable and does follow commands. Placed on argatroban SUBJECTIVE: 07/03: Currently, intubated with borderline blood pressure. Central line placed yesterday due to hypotension. Did not move bowels despite 1 L of fluid from colonoscopy yesterday and multiple laxatives provided. See orders for additional laxatives today. Might need neostigmine. 07/04 Patient remains intubated and sedated with Diprivan. Given Neostigmine last night. KUB this morning showed colonic ileus. Afebrile. On Argatroban. Objective Vital Signs / I&O: Vital Signs 07/03/18 08:18 07/03/18 10:00 07/03/18 10:30 Temperature Pulse Rate 86 87 86 Respiratory Rate 18 30 H 30 H Blood Pressure 109/62 Pulse Oximetry 97 97 97 07/03/18 11:00 07/03/18 11:16 07/03/18 12:00 Temperature 98.3 F Pulse Rate 85 86 93 H Respiratory Rate 32 H 27 H 31 H Blood Pressure 111/67 101/62 Pulse Oximetry 98 99 96 07/03/18 13:00 07/03/18 14:00 07/03/18 14:53 Temperature Pulse Rate 91 H 91 H 93 H Respiratory Rate 32 H 27 H 28 H Blood Pressure 106/65 116/59 L Pulse Oximetry 94 L 95 07/03/18 15:00 07/03/18 15:54 07/03/18 16:00 Temperature 98.0 F Pulse Rate 92 H 101 H Respiratory Rate 26 H 25 H 25 H Blood Pressure 123/56 L 120/66 Pulse Oximetry 95 96 95 07/03/18 17:01 07/03/18 18:00 07/03/18 19:00 Temperature Pulse Rate 104 H 102 H 96 H Respiratory Rate 26 H 20 17 Blood Pressure 143/65 H 134/63 130/61 Pulse Oximetry 96 98 95 07/03/18 20:00 07/03/18 20:18 07/03/18 21:00 Temperature 99.2 F Pulse Rate 100 H 94 H 95 H Respiratory Rate 20 24 19 Blood Pressure 80/56 L 116/65 120/63 Pulse Oximetry 100 97 97 07/03/18 21:52 11/01/18 21:53 07/03/18 21:54 Temperature Pulse Rate 90 90 91 H Respiratory Rate 24 24 24 Blood Pressure 135/64 150/66 H 145/58 H Pulse Oximetry 97 96 96 07/03/18 21:55 07/03/18 21:56 07/03/18 21:57 Temperature Pulse Rate 91 H 91 H 91 H Respiratory Rate 24 36 H 36 H Blood Pressure 129/71 153/66 H 146/67 H Pulse Oximetry 96 97 96 07/03/18 22:00 07/03/18 22:30 07/03/18 23:00 Temperature Pulse Rate 90 89 88 Respiratory Rate 33 H 32 H 20 Blood Pressure 143/67 H 142/67 H 151/61 H Pulse Oximetry 96 97 97 07/03/18 23:29 07/03/18 23:30 07/04/18 00:00 Temperature 98.7 F Pulse Rate 92 H 90 91 H Respiratory Rate 18 19 19 Blood Pressure 145/65 H 127/73 Pulse Oximetry 98 99 07/04/18 00:30 07/04/18 01:01 07/04/18 01:26 Temperature Pulse Rate 91 H 97 H Respiratory Rate 20 26 H 21 Blood Pressure 134/73 140/64 Pulse Oximetry 99 98 99 07/04/18 01:30 07/04/18 02:00 07/04/18 02:31 Temperature Pulse Rate 92 H 64 68 Respiratory Rate 34 H 26 H 34 H Blood Pressure 114/66 125/57 L 127/59 L Pulse Oximetry 95 99 97 07/04/18 03:00 07/04/18 03:26 07/04/18 03:30 Temperature Pulse Rate 69 73 72 Respiratory Rate 18 19 19 Blood Pressure 126/58 L 123/60 Pulse Oximetry 99 99 07/04/18 04:00 07/04/18 04:29 07/04/18 04:31 Temperature 98.6 F Pulse Rate 83 80 Respiratory Rate 6 L 19 17 Blood Pressure 123/69 142/63 H Pulse Oximetry 100 98 98 07/04/18 05:00 07/04/18 06:00 07/04/18 07:58 Temperature Pulse Rate 80 79 85 Respiratory Rate 22 15 Blood Pressure 134/65 Pulse Oximetry 99 100 Intake & Output 11/01/18 11/02/18 11/02/18 18:59 06:59 18:59 Intake Total 1559.625 / 5839.699 5390.625 / 1659.625 Output Total 1150 / 1150 2049 Balance 409.625 / 409.625 -390.375 / -390.375 Weight 90.7 kg Intake: IV 1559.625 / 5089.752 7604.625 / 1659.625 Novastan Inj 250 MG In NS Inj 250 / 250 250 / 250 247.5 ML @ Per Protocol IV.CONT TITRATE PRN Rx#:[id number] Diprivan 1000 mg/100 ml Inj 1, 100 / 100 000 mg In 100 ml @ 5 MCG/KG/MIN 2.64 mls/hr IV.CONT TITRATE PRN Rx#:[id number] Sodium Chloride 23.4% Inj 38.5 1009.625 / 7831.273 7216.625 / 1009.625 MEQ In Sterile Water for Inj 1, 000 ML @ 100 mls/hr IV.CONT . Q10H6M WOLF Rx#:[id number] Maxipime Inj 2,000 MG In NS Inj 100 / 100 200 / 200 100 ML @ 200 mls/hr IV.SIG Q8H WOLF Rx#:[id number] KCl 40 mEq Premix Inj 40 meq In 100 / 100 100 ml @ 25 mls/hr IV.SIG Q2H PRN Rx#:[id number] Flagyl 500 MG Inj 100 ML @ 100 100 / 100 100 / 100 mls/hr IV.SIG Q8H WOLF Rx#: [id number] Output: Urine Amount (Catheter) 1150 / 1150 2049 Indwelling Urethral Catheter 1150 / 1150 2049 Other: Bladder Irrigation Fluid - Amount Instilled Indwelling Urethral Catheter 50 75 Date of Last Bowel Movement 07/03/18 07/04/18 # Bowel Movements 1 # Incontinent Bowel Movements 1 Result Diagrams: 07/03/18 23:40 07/03/18 23:40 Other Results: Laboratory Results - last 12 hr 07/02/18 07/03/18 07/03/18 05:42 23:40 23:40 WBC 17.0 H RBC 2.86 L Hgb 8.3 L Hct 26.5 L MCV 92.5 MCH 29.1 MCHC 31.4 L RDW 13.7 Plt Count 50 L MPV 11.4 H Prelim Diff (Auto) Slide review pending Neut % (Auto) 95.6 H Lymph % (Auto) 1.0 L [place] % (Auto) 3.3 Eos % (Auto) 0.0 Baso % (Auto) 0.1 Neut # (Auto) 16.3 H Lymph # (Auto) 0.2 L [place] # (Auto) 0.6 Eos # (Auto) 0.0 Baso # (Auto) 0.0 WBC Differential Manual diff final Seg Neuts % (Manual) 89 H Band Neuts % (Manual) 2 Lymphocytes % (Manual) 1 L Monocytes % (Manual) 7 Myelocytes % (Man) 1 H Abs Neuts (Manual) 15.6 H Differential Comment . Platelet Estimate Low L Platelet Morphology Enlarged H RBC Morphology Normal APTT Sodium 151 H Potassium 3.2 L Chloride 112 H Carbon Dioxide 30.5 Anion Gap 9 BUN 53 H Creatinine 1.26 Estimated GFR 68 L POC Glucose Random Glucose 215 H Lactic Acid Calcium 7.4 L* Prot Corrected Calcium 8.2 L Phosphorus 2.9 Magnesium 2.3 Total Bilirubin 0.5 AST 35 ALT 55 Alkaline Phosphatase 51 Total Protein 5.6 L Albumin 2.6 L Serotonin Release Assay Negative ANNMARIE UFH Low Dose 0.1 3 ANNMARIE UFH Low Dose 0.5 2 ANNMARIE UFH High Dose 100 3 07/03/18 07/03/18 07/04/18 23:46 23:56 02:48 WBC RBC Hgb Hct MCV MCH MCHC RDW Plt Count MPV Prelim Diff (Auto) Neut % (Auto) Lymph % (Auto) [place] % (Auto) Eos % (Auto) Baso % (Auto) Neut # (Auto) Lymph # (Auto) [place] # (Auto) Eos # (Auto) Baso # (Auto) WBC Differential Seg Neuts % (Manual) Band Neuts % (Manual) Lymphocytes % (Manual) Monocytes % (Manual) Myelocytes % (Man) Abs Neuts (Manual) Differential Comment Platelet Estimate Platelet Morphology RBC Morphology APTT Sodium Potassium Chloride Carbon Dioxide Anion Gap BUN Creatinine Estimated GFR POC Glucose 206 H Random Glucose Lactic Acid 1.3 1.0 Calcium Prot Corrected Calcium Phosphorus Magnesium Total Bilirubin AST ALT Alkaline Phosphatase Total Protein Albumin Serotonin Release Assay ANNMARIE UFH Low Dose 0.1 ANNMARIE UFH Low Dose 0.5 ANNMARIE UFH High Dose 100 07/04/18 07/04/18 04:25 06:02 WBC RBC Hgb Hct MCV MCH MCHC RDW Plt Count MPV Prelim Diff (Auto) Neut % (Auto) Lymph % (Auto) [place] % (Auto) Eos % (Auto) Baso % (Auto) Neut # (Auto) Lymph # (Auto) [place] # (Auto) Eos # (Auto) Baso # (Auto) WBC Differential Seg Neuts % (Manual) Band Neuts % (Manual) Lymphocytes % (Manual) Monocytes % (Manual) Myelocytes % (Man) Abs Neuts (Manual) Differential Comment Platelet Estimate Platelet Morphology RBC Morphology APTT 65.3 H Sodium Potassium Chloride Carbon Dioxide Anion Gap BUN Creatinine Estimated GFR POC Glucose 175 H Random Glucose Lactic Acid Calcium Prot Corrected Calcium Phosphorus Magnesium Total Bilirubin AST ALT Alkaline Phosphatase Total Protein Albumin Serotonin Release Assay ANNMARIE UFH Low Dose 0.1 ANNMARIE UFH Low Dose 0.5 ANNMARIE UFH High Dose 100 Imaging: Abdomen Ultrasound 06/21/18 00:00 CONCLUSION: 1. No ascites is identified within the abdomen. Abdomen/Bladder Ultrasound 06/28/18 00:00 CONCLUSION: 1. Echogenic kidneys characteristic of medical renal disease. No hydronephrosis. Bladder decompressed by [place] Chest CTA 07/02/18 00:00 CONCLUSION: 1. No pulmonary embolus. 2. Diffuse but basilar predominant bilateral airspace disease. 3. Endotracheal and endobronchial secretions are demonstrated. 4. Moderate emphysema. 5. Left ventricular hypertrophy. Venous Doppler Study 07/02/18 00:00 CONCLUSION: 1. Limited, no evidence for thrombosis. Abdomen/Pelvis CT 07/02/18 04:20 CONCLUSION: Colonic distention most likely representing moderate adynamic ileus. However, distal sigmoid colon is decompressed and a sigmoid stricture is conceivable but considered less likely. Apparent mild proctitis. Clinical surveillance and follow-up CT recommended. Abdomen X-Ray 07/04/18 00:01 CONCLUSION: Findings of colonic ileus Chest X-Ray 07/04/18 06:00 CONCLUSION: Cardiomegaly and findings of vascular congestion without overt failure. There has been no significant change when compared to the prior exam. Objective Remarks: GENERAL: Patient is 73 yo lying in bed in NAD orotracheally intubated SKIN: Warm and dry. HEAD: Normocephalic. EYES: No scleral icterus. No injection or drainage. NECK: Supple, trachea midline. No JVD or lymphadenopathy. CARDIOVASCULAR: Regular rate and rhythm without murmurs, gallops, or rubs. RESPIRATORY: Distant breath sounds. Few crackles patient bases. Clears with suctioning. GASTROINTESTINAL: Abdomen distended. Protuberant. Hypoactive bowel sounds appreciated. MUSCULOSKELETAL: No significant peripheral edema. Neuro: Arousable the ventilator and follows command. Assessment and Plan - Assessment and Plan Plan: ASSESSMENT: Acute hypercapnic respiratory failure Acute COPD exacerbation Altered mental status due to CO2 narcosis Acute kidney injury/failure Hypertension Leukocytosis Hyperglycemia COPD Hypernatremia Colonic ileus PLAN: NEURO: -Monitor neuro status, -On propofol drip for sedation/analgesia while intubated. Goal of RASS of -2. Daily sedation vacation RESP: -Continue with vent support keep sats >92% -Extubated 06/29. Reintubated 07/02 -DuoNeb every 4 hours scheduled and as needed -IV Solu-Medrol 40 mg Q12 -Inhaled budesonide -Continue cefepime continue azithromycin -Spontaneous breathing trials as alonso. CV: - Monitor HR and BP keep MAP>65mmHg -Continue with BP meds, Cardizem 60mg Q6,, Hydralazine 50mg TID with holding parameters GI: -N.p.o. status. -IV famotidine -GI for decompression 07/02. On docusate sodium/senna 1 tablet twice daily, lactulose 30 cc 4 times daily, GoLYTELY 2 L x1 now. Mineral oil 15 mL x1 now. -abdominal pressure 17 -KUB today- colonic ileus FEN/: -Monitor renal function, I/O's, electrolytes replacement per protocol. - on one quarter normal saline change 75 ml/hr, monitor sodium level. -Add free water 250ml Q8 ID: -Antibiotics with cefepime and completed azithromycin. Monitor for signs of infections ( Fever, WBC) -Sputum cultures-neg to date -07/02 BC: NGTS, sputum cx 07/02: pending HEME: -Monitor CBC, coags, Hep PLT is positive. Pending ANNMARIE. Hematology actively following. Currently on argatroban drip ENDO: -Electrolyte replacement per protocol -Sliding scale insulin medium scale PROPH: -Bilateral lower extremity SCDs. PPI , on argatroban drip -Doppler US LE negative DVT LINES: -Utilize peripheral IVs, Critical care time 35 minutes
[2018-07-04] MEDS: Artificial Tears Opth Drops 15 ML Bottle EACH EYE SCH ×3 (08:21→23:13)
[2018-07-04] MEDS: hydrALAZINE 50 MG Tablet PO SCH ×3 (08:21→17:35)
[2018-07-04] MEDS: Beneprotein Powder Packet G-TUBE SCH ×3 (08:21→17:35)
[2018-07-04] MEDS: Bisacodyl 10 MG Supp RECTAL SCH (08:23)
[2018-07-04] MEDS: Simethicone 80 MG Chew Tablet PO SCH ×4 (08:35→20:18)
--- NOTE | 2018-07-04 10:10 | P.PNGI ---
Subjective Interval history: Patient mechanically ventilated on propofol drip for sedation. Remains n.p.o. with OG in place, noted abdominal distention present <Carlene Young - Last Filed: 07/04/18 10:02> Physical Exam Vital signs: Vital Signs 07/03/18 10:30 07/03/18 11:00 07/03/18 11:16 Temperature Pulse Rate 86 85 86 Respiratory Rate 30 H 32 H 27 H Blood Pressure 109/62 111/67 Pulse Oximetry 97 98 99 07/03/18 12:00 07/03/18 13:00 07/03/18 14:00 Temperature 98.3 F Pulse Rate 93 H 91 H 91 H Respiratory Rate 31 H 32 H 27 H Blood Pressure 101/62 106/65 116/59 L Pulse Oximetry 96 94 L 95 07/03/18 14:53 07/03/18 15:00 07/03/18 15:54 Temperature Pulse Rate 93 H 92 H Respiratory Rate 28 H 26 H 25 H Blood Pressure 123/56 L Pulse Oximetry 95 96 07/03/18 16:00 07/03/18 17:01 07/03/18 18:00 Temperature 98.0 F Pulse Rate 101 H 104 H 102 H Respiratory Rate 25 H 26 H 20 Blood Pressure 120/66 143/65 H 134/63 Pulse Oximetry 95 96 98 07/03/18 19:00 07/03/18 20:00 07/03/18 20:18 Temperature 99.2 F Pulse Rate 96 H 100 H 94 H Respiratory Rate 17 20 24 Blood Pressure 130/61 80/56 L 116/65 Pulse Oximetry 95 100 97 07/03/18 21:00 07/03/18 21:52 07/03/18 21:53 Temperature Pulse Rate 95 H 90 90 Respiratory Rate 19 24 24 Blood Pressure 120/63 135/64 150/66 H Pulse Oximetry 97 97 96 07/03/18 21:54 07/03/18 21:55 07/03/18 21:56 Temperature Pulse Rate 91 H 91 H 91 H Respiratory Rate 24 24 36 H Blood Pressure 145/58 H 129/71 153/66 H Pulse Oximetry 96 96 97 07/03/18 21:57 07/03/18 22:00 07/03/18 22:30 Temperature Pulse Rate 91 H 90 89 Respiratory Rate 36 H 33 H 32 H Blood Pressure 146/67 H 143/67 H 142/67 H Pulse Oximetry 96 96 97 07/03/18 23:00 07/03/18 23:29 07/03/18 23:30 Temperature Pulse Rate 88 92 H 90 Respiratory Rate 20 18 19 Blood Pressure 151/61 H 145/65 H Pulse Oximetry 97 98 07/04/18 00:00 07/04/18 00:30 07/04/18 01:01 Temperature 98.7 F Pulse Rate 91 H 91 H 97 H Respiratory Rate 19 20 26 H Blood Pressure 127/73 134/73 140/64 Pulse Oximetry 99 99 98 07/04/18 01:26 07/04/18 01:30 07/04/18 02:00 Temperature Pulse Rate 92 H 64 Respiratory Rate 21 34 H 26 H Blood Pressure 114/66 125/57 L Pulse Oximetry 99 95 99 07/04/18 02:31 07/04/18 03:00 07/04/18 03:26 Temperature Pulse Rate 68 69 73 Respiratory Rate 34 H 18 19 Blood Pressure 127/59 L 126/58 L Pulse Oximetry 97 99 07/04/18 03:30 07/04/18 04:00 07/04/18 04:29 Temperature 98.6 F Pulse Rate 72 83 Respiratory Rate 19 6 L 19 Blood Pressure 123/60 123/69 Pulse Oximetry 99 100 98 07/04/18 04:31 07/04/18 05:00 07/04/18 05:30 Temperature Pulse Rate 80 80 80 Respiratory Rate 17 22 20 Blood Pressure 142/63 H 134/65 136/67 Pulse Oximetry 98 99 99 07/04/18 06:00 07/04/18 06:30 07/04/18 07:00 Temperature Pulse Rate 76 80 80 Respiratory Rate 19 22 22 Blood Pressure 135/61 132/63 129/63 Pulse Oximetry 99 100 100 07/04/18 07:30 07/04/18 07:58 07/04/18 08:00 Temperature 98.7 F Pulse Rate 71 85 78 Respiratory Rate 18 15 15 Blood Pressure 136/62 139/68 Pulse Oximetry 100 100 100 07/04/18 08:30 Temperature Pulse Rate 77 Respiratory Rate 14 Blood Pressure 131/61 Pulse Oximetry 100 Intake & Output 07/03/18 07/04/18 07/04/18 18:59 06:59 18:59 Intake Total 1559.625 / 4174.263 3331.625 / 1659.625 Output Total 1150 / 1150 2049 Balance 409.625 / 409.625 -390.375 / -390.375 Weight 90.7 kg Intake: IV 1559.625 / 7560.705 4271.625 / 1659.625 Novastan Inj 250 MG In NS Inj 250 / 250 250 / 250 247.5 ML @ Per Protocol IV.CONT TITRATE PRN Rx#:[id number] Diprivan 1000 mg/100 ml Inj 1, 100 / 100 000 mg In 100 ml @ 5 MCG/KG/MIN 2.64 mls/hr IV.CONT TITRATE PRN Rx#:[id number] Sodium Chloride 23.4% Inj 38.5 1009.625 / 3827.702 9100.625 / 1009.625 MEQ In Sterile Water for Inj 1, 000 ML @ 100 mls/hr IV.CONT . Q10H6M WOLF Rx#:[id number] Maxipime Inj 2,000 MG In NS Inj 100 / 100 200 / 200 100 ML @ 200 mls/hr IV.SIG Q8H WOLF Rx#:[id number] KCl 40 mEq Premix Inj 40 meq In 100 / 100 100 ml @ 25 mls/hr IV.SIG Q2H PRN Rx#:[id number] Flagyl 500 MG Inj 100 ML @ 100 100 / 100 100 / 100 mls/hr IV.SIG Q8H WOLF Rx#: [id number] Output: Urine Amount (Catheter) 1150 / 1150 2049 Indwelling Urethral Catheter 1150 / 1150 2049 Other: Bladder Irrigation Fluid - Amount Instilled Indwelling Urethral Catheter 50 75 Date of Last Bowel Movement 07/03/18 07/04/18 07/04/18 # Bowel Movements 1 # Incontinent Bowel Movements 1 - Constitutional chronically ill appearing - Routine HEENT Exam Head: Present: normocephalic - Routine Respiratory Exam Present: patient mechanically ventilated - Routine Cardiovascular Exam Present: S1, S2 - Routine Abdominal Exam Present: distended, firm Comments: Distant bowel sounds - Routine Extremities Exam Present: pulses intact - Routine Skin Exam Present: dry, warm - Routine Neurological Exam Present: alert - Urinary Catheter Management Indwelling Urethral Catheter Cath placed during this visit: yes Reason for continuing: Hourly intake/output Insertion date: 06/27/18 Insertion time: 16:00 <Carlene Young - Last Filed: 07/04/18 10:02> Vital signs: Vital Signs 07/03/18 18:00 07/03/18 19:00 07/03/18 20:00 Temperature 99.2 F Pulse Rate 102 H 96 H 100 H Respiratory Rate 20 17 20 Blood Pressure 134/63 130/61 80/56 L Pulse Oximetry 98 95 100 07/03/18 20:18 07/03/18 21:00 07/03/18 21:52 Temperature Pulse Rate 94 H 95 H 90 Respiratory Rate 24 19 24 Blood Pressure 116/65 120/63 135/64 Pulse Oximetry 97 97 97 07/03/18 21:53 07/03/18 21:54 07/03/18 21:55 Temperature Pulse Rate 90 91 H 91 H Respiratory Rate 24 24 24 Blood Pressure 150/66 H 145/58 H 129/71 Pulse Oximetry 96 96 96 07/03/18 21:56 07/03/18 21:57 07/03/18 22:00 Temperature Pulse Rate 91 H 91 H 90 Respiratory Rate 36 H 36 H 33 H Blood Pressure 153/66 H 146/67 H 143/67 H Pulse Oximetry 97 96 96 07/03/18 22:30 07/03/18 23:00 07/03/18 23:29 Temperature Pulse Rate 89 88 92 H Respiratory Rate 32 H 20 18 Blood Pressure 142/67 H 151/61 H Pulse Oximetry 97 97 07/03/18 23:30 07/04/18 00:00 07/04/18 00:30 Temperature 98.7 F Pulse Rate 90 91 H 91 H Respiratory Rate 19 19 20 Blood Pressure 145/65 H 127/73 134/73 Pulse Oximetry 98 99 99 07/04/18 01:01 07/04/18 01:26 07/04/18 01:30 Temperature Pulse Rate 97 H 92 H Respiratory Rate 26 H 21 34 H Blood Pressure 140/64 114/66 Pulse Oximetry 98 99 95 07/04/18 02:00 07/04/18 02:31 07/04/18 03:00 Temperature Pulse Rate 64 68 69 Respiratory Rate 26 H 34 H 18 Blood Pressure 125/57 L 127/59 L 126/58 L Pulse Oximetry 99 97 99 07/04/18 03:26 07/04/18 03:30 07/04/18 04:00 Temperature 98.6 F Pulse Rate 73 72 83 Respiratory Rate 19 19 6 L Blood Pressure 123/60 123/69 Pulse Oximetry 99 100 07/04/18 04:29 07/04/18 04:31 07/04/18 05:00 Temperature Pulse Rate 80 80 Respiratory Rate 19 17 22 Blood Pressure 142/63 H 134/65 Pulse Oximetry 98 98 99 07/04/18 05:30 07/04/18 06:00 07/04/18 06:30 Temperature Pulse Rate 80 76 80 Respiratory Rate 20 19 22 Blood Pressure 136/67 135/61 132/63 Pulse Oximetry 99 99 100 07/04/18 07:00 07/04/18 07:30 07/04/18 07:58 Temperature Pulse Rate 80 71 85 Respiratory Rate 22 18 15 Blood Pressure 129/63 136/62 Pulse Oximetry 100 100 100 07/04/18 08:00 07/04/18 08:30 07/04/18 09:00 Temperature 98.7 F Pulse Rate 78 77 78 Respiratory Rate 15 14 14 Blood Pressure 139/68 131/61 129/58 L Pulse Oximetry 100 100 99 07/04/18 09:30 07/04/18 10:00 07/04/18 10:30 Temperature Pulse Rate 79 79 78 Respiratory Rate 17 15 25 H Blood Pressure 130/62 138/62 130/67 Pulse Oximetry 98 99 99 07/04/18 11:00 07/04/18 11:30 07/04/18 11:46 Temperature Pulse Rate 78 81 78 Respiratory Rate 16 18 20 Blood Pressure 134/65 131/60 Pulse Oximetry 99 98 100 07/04/18 12:00 07/04/18 12:31 07/04/18 13:00 Temperature 98.7 F Pulse Rate 77 81 75 Respiratory Rate 18 15 2 L Blood Pressure 122/61 139/65 129/60 Pulse Oximetry 99 98 94 L 07/04/18 13:30 07/04/18 14:00 07/04/18 14:30 Temperature Pulse Rate 78 78 80 Respiratory Rate 16 17 19 Blood Pressure 140/72 130/65 148/69 H Pulse Oximetry 99 99 99 07/04/18 14:50 07/04/18 15:00 07/04/18 15:14 Temperature Pulse Rate 80 78 Respiratory Rate 14 15 15 Blood Pressure 127/63 Pulse Oximetry 99 97 07/04/18 15:30 07/04/18 16:00 07/04/18 16:30 Temperature 98.8 F Pulse Rate 79 81 80 Respiratory Rate 24 28 H 23 Blood Pressure 127/59 L 137/65 132/58 L Pulse Oximetry 99 99 99 07/04/18 17:00 Temperature Pulse Rate 79 Respiratory Rate 17 Blood Pressure 113/55 L Pulse Oximetry 99 Intake & Output 07/03/18 07/04/18 07/04/18 18:59 06:59 18:59 Intake Total 1559.625 / 6393.519 3635.625 / 5631.766 6197.625 / 1109.625 Output Total 1150 / 1150 2049 Balance 409.625 / 409.625 -390.375 / -001.736 6804.625 / 1109.625 Weight 90.7 kg Intake: IV 1559.625 / 0163.921 4818.625 / 3294.377 4010.625 / 1109.625 Novastan Inj 250 MG In NS Inj 250 / 250 250 / 250 247.5 ML @ Per Protocol IV.CONT TITRATE PRN Rx#:[id number] Diprivan 1000 mg/100 ml Inj 1, 100 / 100 000 mg In 100 ml @ 5 MCG/KG/MIN 2.64 mls/hr IV.CONT TITRATE PRN Rx#:[id number] Sodium Chloride 23.4% Inj 38.5 1009.625 / 7369.101 3890.625 / 0899.637 2706.625 / 1009.625 MEQ In Sterile Water for Inj 1, 000 ML @ 75 mls/hr IV.CONT . [id number] WOLF Rx#:[id number] Maxipime Inj 2,000 MG In NS Inj 100 / 100 200 / 200 100 ML @ 200 mls/hr IV.SIG Q8H WOLF Rx#:[id number] KCl 40 mEq Premix Inj 40 meq In 100 / 100 100 ml @ 25 mls/hr IV.SIG Q2H PRN Rx#:[id number] Flagyl 500 MG Inj 100 ML @ 100 100 / 100 100 / 100 100 / 100 mls/hr IV.SIG Q8H WOLF Rx#: [id number] Output: Urine Amount (Catheter) 1150 2049 Indwelling Urethral Catheter 1149 Other: Bladder Irrigation Fluid - Amount Instilled Indwelling Urethral Catheter 50 75 Date of Last Bowel Movement 07/03/18 07/04/18 07/04/18 # Bowel Movements 1 # Incontinent Bowel Movements 1 - Urinary Catheter Management Indwelling Urethral Catheter Cath placed during this visit: no <Anuj Damon E - Last Filed: 07/04/18 17:22> Results - Labs CBC & Chem 7: 07/03/18 23:40 07/03/18 23:40 Laboratory Results - last 24 hr 07/02/18 07/03/18 07/03/18 05:42 08:55 10:20 WBC RBC Hgb Hct MCV MCH MCHC RDW Plt Count MPV Prelim Diff (Auto) Neut % (Auto) Lymph % (Auto) [place] % (Auto) Eos % (Auto) Baso % (Auto) Neut # (Auto) Lymph # (Auto) [place] # (Auto) Eos # (Auto) Baso # (Auto) WBC Differential Seg Neuts % (Manual) Band Neuts % (Manual) Lymphocytes % (Manual) Monocytes % (Manual) Myelocytes % (Man) Abs Neuts (Manual) Differential Comment Platelet Estimate Platelet Morphology RBC Morphology APTT 33.7 H D Sodium Potassium Chloride Carbon Dioxide Anion Gap BUN Creatinine Estimated GFR POC Glucose Random Glucose Lactic Acid 1.3 Calcium Prot Corrected Calcium Phosphorus Magnesium Total Bilirubin AST ALT Alkaline Phosphatase Total Protein Albumin Serotonin Release Assay Negative ANNMARIE UFH Low Dose 0.1 3 ANNMARIE UFH Low Dose 0.5 2 ANNMARIE UFH High Dose 100 3 07/03/18 07/03/18 07/03/18 12:08 12:30 16:30 WBC RBC Hgb Hct MCV MCH MCHC RDW Plt Count MPV Prelim Diff (Auto) Neut % (Auto) Lymph % (Auto) [place] % (Auto) Eos % (Auto) Baso % (Auto) Neut # (Auto) Lymph # (Auto) [place] # (Auto) Eos # (Auto) Baso # (Auto) WBC Differential Seg Neuts % (Manual) Band Neuts % (Manual) Lymphocytes % (Manual) Monocytes % (Manual) Myelocytes % (Man) Abs Neuts (Manual) Differential Comment Platelet Estimate Platelet Morphology RBC Morphology APTT 47.1 H D Sodium Potassium Chloride Carbon Dioxide Anion Gap BUN Creatinine Estimated GFR POC Glucose 167 H 212 H Random Glucose Lactic Acid Calcium Prot Corrected Calcium Phosphorus Magnesium Total Bilirubin AST ALT Alkaline Phosphatase Total Protein Albumin Serotonin Release Assay ANNMARIE UFH Low Dose 0.1 ANNMARIE UFH Low Dose 0.5 ANNMARIE UFH High Dose 100 07/03/18 07/03/18 07/03/18 16:40 16:40 19:54 WBC RBC Hgb Hct MCV MCH MCHC RDW Plt Count MPV Prelim Diff (Auto) Neut % (Auto) Lymph % (Auto) [place] % (Auto) Eos % (Auto) Baso % (Auto) Neut # (Auto) Lymph # (Auto) [place] # (Auto) Eos # (Auto) Baso # (Auto) WBC Differential Seg Neuts % (Manual) Band Neuts % (Manual) Lymphocytes % (Manual) Monocytes % (Manual) Myelocytes % (Man) Abs Neuts (Manual) Differential Comment Platelet Estimate Platelet Morphology RBC Morphology APTT 65.1 H D Sodium Potassium Chloride Carbon Dioxide Anion Gap BUN Creatinine Estimated GFR POC Glucose 230 H Random Glucose Lactic Acid 1.0 Calcium Prot Corrected Calcium Phosphorus Magnesium Total Bilirubin AST ALT Alkaline Phosphatase Total Protein Albumin Serotonin Release Assay ANNMARIE UFH Low Dose 0.1 ANNMARIE UFH Low Dose 0.5 ANNMARIE UFH High Dose 100 07/03/18 07/03/18 07/03/18 23:40 23:40 23:46 WBC 17.0 H RBC 2.86 L Hgb 8.3 L Hct 26.5 L MCV 92.5 MCH 29.1 MCHC 31.4 L RDW 13.7 Plt Count 50 L MPV 11.4 H Prelim Diff (Auto) Slide review pending Neut % (Auto) 95.6 H Lymph % (Auto) 1.0 L [place] % (Auto) 3.3 Eos % (Auto) 0.0 Baso % (Auto) 0.1 Neut # (Auto) 16.3 H Lymph # (Auto) 0.2 L [place] # (Auto) 0.6 Eos # (Auto) 0.0 Baso # (Auto) 0.0 WBC Differential Manual diff final Seg Neuts % (Manual) 89 H Band Neuts % (Manual) 2 Lymphocytes % (Manual) 1 L Monocytes % (Manual) 7 Myelocytes % (Man) 1 H Abs Neuts (Manual) 15.6 H Differential Comment . Platelet Estimate Low L Platelet Morphology Enlarged H RBC Morphology Normal APTT Sodium 151 H Potassium 3.2 L Chloride 112 H Carbon Dioxide 30.5 Anion Gap 9 BUN 53 H Creatinine 1.26 Estimated GFR 68 L POC Glucose 206 H Random Glucose 215 H Lactic Acid Calcium 7.4 L* Prot Corrected Calcium 8.2 L Phosphorus 2.9 Magnesium 2.3 Total Bilirubin 0.5 AST 35 ALT 55 Alkaline Phosphatase 51 Total Protein 5.6 L Albumin 2.6 L Serotonin Release Assay ANNMARIE UFH Low Dose 0.1 ANNMARIE UFH Low Dose 0.5 ANNMARIE UFH High Dose 100 07/03/18 07/04/18 07/04/18 23:56 02:48 04:25 WBC RBC Hgb Hct MCV MCH MCHC RDW Plt Count MPV Prelim Diff (Auto) Neut % (Auto) Lymph % (Auto) [place] % (Auto) Eos % (Auto) Baso % (Auto) Neut # (Auto) Lymph # (Auto) [place] # (Auto) Eos # (Auto) Baso # (Auto) WBC Differential Seg Neuts % (Manual) Band Neuts % (Manual) Lymphocytes % (Manual) Monocytes % (Manual) Myelocytes % (Man) Abs Neuts (Manual) Differential Comment Platelet Estimate Platelet Morphology RBC Morphology APTT Sodium Potassium Chloride Carbon Dioxide Anion Gap BUN Creatinine Estimated GFR POC Glucose 175 H Random Glucose Lactic Acid 1.3 1.0 Calcium Prot Corrected Calcium Phosphorus Magnesium Total Bilirubin AST ALT Alkaline Phosphatase Total Protein Albumin Serotonin Release Assay ANNMARIE UFH Low Dose 0.1 ANNMARIE UFH Low Dose 0.5 ANNMARIE UFH High Dose 100 07/04/18 07/04/18 06:02 08:02 WBC RBC Hgb Hct MCV MCH MCHC RDW Plt Count MPV Prelim Diff (Auto) Neut % (Auto) Lymph % (Auto) [place] % (Auto) Eos % (Auto) Baso % (Auto) Neut # (Auto) Lymph # (Auto) [place] # (Auto) Eos # (Auto) Baso # (Auto) WBC Differential Seg Neuts % (Manual) Band Neuts % (Manual) Lymphocytes % (Manual) Monocytes % (Manual) Myelocytes % (Man) Abs Neuts (Manual) Differential Comment Platelet Estimate Platelet Morphology RBC Morphology APTT 65.3 H Sodium Potassium Chloride Carbon Dioxide Anion Gap BUN Creatinine Estimated GFR POC Glucose 184 H Random Glucose Lactic Acid Calcium Prot Corrected Calcium Phosphorus Magnesium Total Bilirubin AST ALT Alkaline Phosphatase Total Protein Albumin Serotonin Release Assay ANNMARIE UFH Low Dose 0.1 ANNMARIE UFH Low Dose 0.5 ANNMARIE UFH High Dose 100 Microbiology 07/02/18 05:41 Blood - Peripheral Aerobic Blood Culture - Preliminary No growth in 1 day 07/02/18 05:41 Blood - Peripheral Anaerobic Blood Culture - Preliminary No growth in 1 day 07/02/18 05:47 Blood - Peripheral Aerobic Blood Culture - Preliminary No growth in 1 day 07/02/18 05:47 Blood - Peripheral Anaerobic Blood Culture - Preliminary No growth in 1 day 07/02/18 22:00 Sputum - Endotracheal Gram Stain - Final - Imaging Impressions Abdomen X-Ray 07/04/18 00:01 CONCLUSION: Findings of colonic ileus Chest X-Ray 07/04/18 06:00 CONCLUSION: Cardiomegaly and findings of vascular congestion without overt failure. There has been no significant change when compared to the prior exam. <Carlene Young - Last Filed: 07/04/18 10:02> - Labs CBC & Chem 7: 07/03/18 23:40 07/04/18 10:48 Laboratory Results - last 24 hr 07/02/18 07/03/18 07/03/18 05:42 16:40 16:40 WBC RBC Hgb Hct MCV MCH MCHC RDW Plt Count MPV Prelim Diff (Auto) Neut % (Auto) Lymph % (Auto) [place] % (Auto) Eos % (Auto) Baso % (Auto) Neut # (Auto) Lymph # (Auto) [place] # (Auto) Eos # (Auto) Baso # (Auto) WBC Differential Seg Neuts % (Manual) Band Neuts % (Manual) Lymphocytes % (Manual) Monocytes % (Manual) Myelocytes % (Man) Abs Neuts (Manual) Differential Comment Platelet Estimate Platelet Morphology RBC Morphology APTT 65.1 H D Sodium Potassium Chloride Carbon Dioxide Anion Gap BUN Creatinine Estimated GFR POC Glucose Random Glucose Lactic Acid 1.0 Calcium Prot Corrected Calcium Phosphorus Magnesium Total Bilirubin AST ALT Alkaline Phosphatase Total Protein Albumin Serotonin Release Assay Negative ANNMARIE UFH Low Dose 0.1 3 ANNMARIE UFH Low Dose 0.5 2 ANNMARIE UFH High Dose 100 3 07/03/18 07/03/18 07/03/18 19:54 23:40 23:40 WBC 17.0 H RBC 2.86 L Hgb 8.3 L Hct 26.5 L MCV 92.5 MCH 29.1 MCHC 31.4 L RDW 13.7 Plt Count 50 L MPV 11.4 H Prelim Diff (Auto) Slide review pending Neut % (Auto) 95.6 H Lymph % (Auto) 1.0 L [place] % (Auto) 3.3 Eos % (Auto) 0.0 Baso % (Auto) 0.1 Neut # (Auto) 16.3 H Lymph # (Auto) 0.2 L [place] # (Auto) 0.6 Eos # (Auto) 0.0 Baso # (Auto) 0.0 WBC Differential Manual diff final Seg Neuts % (Manual) 89 H Band Neuts % (Manual) 2 Lymphocytes % (Manual) 1 L Monocytes % (Manual) 7 Myelocytes % (Man) 1 H Abs Neuts (Manual) 15.6 H Differential Comment . Platelet Estimate Low L Platelet Morphology Enlarged H RBC Morphology Normal APTT Sodium 151 H Potassium 3.2 L Chloride 112 H Carbon Dioxide 30.5 Anion Gap 9 BUN 53 H Creatinine 1.26 Estimated GFR 68 L POC Glucose 230 H Random Glucose 215 H Lactic Acid Calcium 7.4 L* Prot Corrected Calcium 8.2 L Phosphorus 2.9 Magnesium 2.3 Total Bilirubin 0.5 AST 35 ALT 55 Alkaline Phosphatase 51 Total Protein 5.6 L Albumin 2.6 L Serotonin Release Assay ANNMARIE UFH Low Dose 0.1 ANNMARIE UFH Low Dose 0.5 ANNMARIE UFH High Dose 100 07/03/18 07/03/18 07/04/18 23:46 23:56 02:48 WBC RBC Hgb Hct MCV MCH MCHC RDW Plt Count MPV Prelim Diff (Auto) Neut % (Auto) Lymph % (Auto) [place] % (Auto) Eos % (Auto) Baso % (Auto) Neut # (Auto) Lymph # (Auto) [place] # (Auto) Eos # (Auto) Baso # (Auto) WBC Differential Seg Neuts % (Manual) Band Neuts % (Manual) Lymphocytes % (Manual) Monocytes % (Manual) Myelocytes % (Man) Abs Neuts (Manual) Differential Comment Platelet Estimate Platelet Morphology RBC Morphology APTT Sodium Potassium Chloride Carbon Dioxide Anion Gap BUN Creatinine Estimated GFR POC Glucose 206 H Random Glucose Lactic Acid 1.3 1.0 Calcium Prot Corrected Calcium Phosphorus Magnesium Total Bilirubin AST ALT Alkaline Phosphatase Total Protein Albumin Serotonin Release Assay ANNMARIE UFH Low Dose 0.1 ANNMARIE UFH Low Dose 0.5 ANNMARIE UFH High Dose 100 07/04/18 07/04/18 07/04/18 04:25 06:02 08:02 WBC RBC Hgb Hct MCV MCH MCHC RDW Plt Count MPV Prelim Diff (Auto) Neut % (Auto) Lymph % (Auto) [place] % (Auto) Eos % (Auto) Baso % (Auto) Neut # (Auto) Lymph # (Auto) [place] # (Auto) Eos # (Auto) Baso # (Auto) WBC Differential Seg Neuts % (Manual) Band Neuts % (Manual) Lymphocytes % (Manual) Monocytes % (Manual) Myelocytes % (Man) Abs Neuts (Manual) Differential Comment Platelet Estimate Platelet Morphology RBC Morphology APTT 65.3 H Sodium Potassium Chloride Carbon Dioxide Anion Gap BUN Creatinine Estimated GFR POC Glucose 175 H 184 H Random Glucose Lactic Acid Calcium Prot Corrected Calcium Phosphorus Magnesium Total Bilirubin AST ALT Alkaline Phosphatase Total Protein Albumin Serotonin Release Assay ANNMARIE UFH Low Dose 0.1 ANNMARIE UFH Low Dose 0.5 ANNMARIE UFH High Dose 100 07/04/18 07/04/18 07/04/18 10:48 11:56 15:45 WBC RBC Hgb Hct MCV MCH MCHC RDW Plt Count MPV Prelim Diff (Auto) Neut % (Auto) Lymph % (Auto) [place] % (Auto) Eos % (Auto) Baso % (Auto) Neut # (Auto) Lymph # (Auto) [place] # (Auto) Eos # (Auto) Baso # (Auto) WBC Differential Seg Neuts % (Manual) Band Neuts % (Manual) Lymphocytes % (Manual) Monocytes % (Manual) Myelocytes % (Man) Abs Neuts (Manual) Differential Comment Platelet Estimate Platelet Morphology RBC Morphology APTT Sodium Potassium 3.4 L Chloride Carbon Dioxide Anion Gap BUN Creatinine Estimated GFR POC Glucose 220 H 195 H Random Glucose Lactic Acid Calcium Prot Corrected Calcium Phosphorus Magnesium Total Bilirubin AST ALT Alkaline Phosphatase Total Protein Albumin Serotonin Release Assay ANNMARIE UFH Low Dose 0.1 ANNMARIE UFH Low Dose 0.5 ANNMARIE UFH High Dose 100 Microbiology 07/02/18 22:00 Sputum - Endotracheal Gram Stain - Final 07/02/18 22:00 Sputum - Endotracheal Sputum Culture - Preliminary Heavy growth normal respiratory justyn at 24 hours 07/02/18 05:41 Blood - Peripheral Aerobic Blood Culture - Preliminary No growth in 2 days 07/02/18 05:41 Blood - Peripheral Anaerobic Blood Culture - Preliminary No growth in 2 days 07/02/18 05:47 Blood - Peripheral Aerobic Blood Culture - Preliminary No growth in 2 days 07/02/18 05:47 Blood - Peripheral Anaerobic Blood Culture - Preliminary No growth in 2 days - Imaging Impressions Abdomen X-Ray 07/04/18 00:01 CONCLUSION: Findings of colonic ileus Chest X-Ray 07/04/18 06:00 CONCLUSION: Cardiomegaly and findings of vascular congestion without overt failure. There has been no significant change when compared to the prior exam. <Anuj Damon E - Last Filed: 07/04/18 17:22> Assessment and Plan - Plan 07/03/2018 Abdominal distention/ileus 07/02/2018 CT abdomen and pelvis revealed the following-- : Colonic distention most likely representing moderate adynamic ileus. However, distal sigmoid colon is decompressed and a sigmoid stricture is conceivable but considered less likely. Apparent mild proctitis. Clinical surveillance and follow-up CT recommended. 07/02/2018 colonoscopy diagnostic revealed the following-- Colon the sigmoid was clear then there is significant amount of stool in the descending colon transverse colon and part of the sigmoid consistent with stool impaction, disimpaction with fluid as much as possible. Rectum normal. -Abdomen remains distended ,less firm per WARD CLERK. Nurse reports patient having multiple loose brown stools post fleets enemas, GoLYTELY, Dulcolax suppository , Relistor. Patient n.p.o. with NG to low intermittent wall suction, estimated 30 cc of brown emesis and drainage container. 07/04/2018 Abdominal distention/ileus Bowel regimen administered by ICU nurse as ordered. 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 Abdomen firm distended with distant bowel sounds audible. KUB this a.m. revealed the following findings-- Examination of the abdomen demonstrates gaseous distention of the colon most consistent with ileus .There are no findings of small bowel obstruction. No free air is identified. No organomegaly is evident. A nasogastric tube is in place with its tip in the stomach. Colonic ileus. Abdominal pressure 17 Plan -N.p.o. -NG to low intermittent wall suction -Famotidine -Continue bowel regimen -Monitor for stool output -Lactulose 4 times daily -Antiemetics as needed -Continue PPI -IV hydration -Supportive care -Further recommendations to follow This patient has been seen by myself and Dr. Damon and this note is written on his behalf - Attending Attestation Dr. Damon <Carlene Young - Last Filed: 07/04/18 10:02> - Plan Patient seen and examined Agree with above Monitor labs Continue with current supportive care <Anuj Damon - Last Filed: 07/04/18 17:22>
--- NOTE | 2018-07-04 19:15 | P.PNONC ---
Subjective Interval history: Intubated and sedated. Follows commands. Objective Vital Signs/Intake & Output: Vital Signs 07/03/18 20:00 07/03/18 20:18 07/03/18 21:00 Temperature 99.2 F Pulse Rate 100 H 94 H 95 H Respiratory Rate 20 24 19 Blood Pressure 80/56 L 116/65 120/63 Pulse Oximetry 100 97 97 07/03/18 21:52 07/03/18 21:53 07/03/18 21:54 Temperature Pulse Rate 90 90 91 H Respiratory Rate 24 24 24 Blood Pressure 135/64 150/66 H 145/58 H Pulse Oximetry 97 96 96 07/03/18 21:55 07/03/18 21:56 07/03/18 21:57 Temperature Pulse Rate 91 H 91 H 91 H Respiratory Rate 24 36 H 36 H Blood Pressure 129/71 153/66 H 146/67 H Pulse Oximetry 96 97 96 07/03/18 22:00 07/03/18 22:30 07/03/18 23:00 Temperature Pulse Rate 90 89 88 Respiratory Rate 33 H 32 H 20 Blood Pressure 143/67 H 142/67 H 151/61 H Pulse Oximetry 96 97 97 07/03/18 23:29 07/03/18 23:30 07/04/18 00:00 Temperature 98.7 F Pulse Rate 92 H 90 91 H Respiratory Rate 18 19 19 Blood Pressure 145/65 H 127/73 Pulse Oximetry 98 99 07/04/18 00:30 07/04/18 01:01 07/04/18 01:26 Temperature Pulse Rate 91 H 97 H Respiratory Rate 20 26 H 21 Blood Pressure 134/73 140/64 Pulse Oximetry 99 98 99 07/04/18 01:30 07/04/18 02:00 07/04/18 02:31 Temperature Pulse Rate 92 H 64 68 Respiratory Rate 34 H 26 H 34 H Blood Pressure 114/66 125/57 L 127/59 L Pulse Oximetry 95 99 97 07/04/18 03:00 07/04/18 03:26 07/04/18 03:30 Temperature Pulse Rate 69 73 72 Respiratory Rate 18 19 19 Blood Pressure 126/58 L 123/60 Pulse Oximetry 99 99 07/04/18 04:00 07/04/18 04:29 07/04/18 04:31 Temperature 98.6 F Pulse Rate 83 80 Respiratory Rate 6 L 19 17 Blood Pressure 123/69 142/63 H Pulse Oximetry 100 98 98 07/04/18 05:00 07/04/18 05:30 07/04/18 06:00 Temperature Pulse Rate 80 80 76 Respiratory Rate 22 20 19 Blood Pressure 134/65 136/67 135/61 Pulse Oximetry 99 99 99 07/04/18 06:30 07/04/18 07:00 07/04/18 07:30 Temperature Pulse Rate 80 80 71 Respiratory Rate 22 22 18 Blood Pressure 132/63 129/63 136/62 Pulse Oximetry 100 100 100 07/04/18 07:58 07/04/18 08:00 07/04/18 08:30 Temperature 98.7 F Pulse Rate 85 78 77 Respiratory Rate 15 15 14 Blood Pressure 139/68 131/61 Pulse Oximetry 100 100 100 07/04/18 09:00 07/04/18 09:30 07/04/18 10:00 Temperature Pulse Rate 78 79 79 Respiratory Rate 14 17 15 Blood Pressure 129/58 L 130/62 138/62 Pulse Oximetry 99 98 99 07/04/18 10:30 07/04/18 11:00 07/04/18 11:30 Temperature Pulse Rate 78 78 81 Respiratory Rate 25 H 16 18 Blood Pressure 130/67 134/65 131/60 Pulse Oximetry 99 99 98 07/04/18 11:46 07/04/18 12:00 07/04/18 12:31 Temperature 98.7 F Pulse Rate 78 77 81 Respiratory Rate 20 18 15 Blood Pressure 122/61 139/65 Pulse Oximetry 100 99 98 07/04/18 13:00 07/04/18 13:30 07/04/18 14:00 Temperature Pulse Rate 75 78 78 Respiratory Rate 2 L 16 17 Blood Pressure 129/60 140/72 130/65 Pulse Oximetry 94 L 99 99 07/04/18 14:30 07/04/18 14:50 07/04/18 15:00 Temperature Pulse Rate 80 80 78 Respiratory Rate 19 14 15 Blood Pressure 148/69 H 127/63 Pulse Oximetry 99 99 07/04/18 15:14 07/04/18 15:30 07/04/18 16:00 Temperature 98.8 F Pulse Rate 79 81 Respiratory Rate 15 24 28 H Blood Pressure 127/59 L 137/65 Pulse Oximetry 97 99 99 07/04/18 16:30 07/04/18 17:00 07/04/18 18:00 Temperature Pulse Rate 80 79 81 Respiratory Rate 23 17 Blood Pressure 132/58 L 113/55 L Pulse Oximetry 99 99 Intake & Output 07/04/18 07/04/18 07/05/18 06:59 18:59 06:59 Intake Total 1659.625 / 7748.557 3134.625 / 1763.625 Output Total 2049 2825 / 2825 Balance -390.375 / -390.375 -1061.375 / -1061.375 Weight 90.7 kg Intake: IV 1659.625 / 6695.374 1331.625 / 1763.625 Novastan Inj 250 MG In NS Inj 250 / 250 254 / 254 247.5 ML @ Per Protocol IV.CONT TITRATE PRN Rx#:[id number] Diprivan 1000 mg/100 ml Inj 1, 100 / 100 000 mg In 100 ml @ 5 MCG/KG/MIN 2.64 mls/hr IV.CONT TITRATE PRN Rx#:[id number] Sodium Chloride 23.4% Inj 38.5 1009.625 / 1103.942 2708.625 / 1009.625 MEQ In Sterile Water for Inj 1, 000 ML @ 75 mls/hr IV.CONT . [id number] ANTOINE Rx#:[id number] Maxipime Inj 2,000 MG In NS Inj 200 / 200 100 / 100 100 ML @ 200 mls/hr IV.SIG Q8H ANTOINE Rx#:[id number] KCl 40 mEq Premix Inj 40 meq In 100 / 100 100 / 100 100 ml @ 25 mls/hr IV.SIG Q2H PRN Rx#:[id number] Flagyl 500 MG Inj 100 ML @ 100 100 / 100 200 / 200 mls/hr IV.SIG Q8H ANTOINE Rx#: [id number] Output: Stool 1999 Urine Amount (Catheter) 2049 825 / 825 Indwelling Urethral Catheter 2049 825 / 825 Other: Bladder Irrigation Fluid - Amount Instilled Indwelling Urethral Catheter 75 Date of Last Bowel Movement 07/04/18 07/04/18 Result Diagrams: 07/03/18 23:40 07/04/18 10:48 Laboratory Results: Laboratory Results - last 24 hr 07/02/18 07/03/18 07/03/18 05:42 19:54 23:40 WBC 17.0 H RBC 2.86 L Hgb 8.3 L Hct 26.5 L MCV 92.5 MCH 29.1 MCHC 31.4 L RDW 13.7 Plt Count 50 L MPV 11.4 H Prelim Diff (Auto) Slide review pending Neut % (Auto) 95.6 H Lymph % (Auto) 1.0 L [place] % (Auto) 3.3 Eos % (Auto) 0.0 Baso % (Auto) 0.1 Neut # (Auto) 16.3 H Lymph # (Auto) 0.2 L [place] # (Auto) 0.6 Eos # (Auto) 0.0 Baso # (Auto) 0.0 WBC Differential Manual diff final Seg Neuts % (Manual) 89 H Band Neuts % (Manual) 2 Lymphocytes % (Manual) 1 L Monocytes % (Manual) 7 Myelocytes % (Man) 1 H Abs Neuts (Manual) 15.6 H Differential Comment . Platelet Estimate Low L Platelet Morphology Enlarged H RBC Morphology Normal APTT Sodium Potassium Chloride Carbon Dioxide Anion Gap BUN Creatinine Estimated GFR POC Glucose 230 H Random Glucose Lactic Acid Calcium Prot Corrected Calcium Phosphorus Magnesium Total Bilirubin AST ALT Alkaline Phosphatase Total Protein Albumin Serotonin Release Assay Negative ANNMARIE UFH Low Dose 0.1 3 ANNMARIE UFH Low Dose 0.5 2 ANNMARIE UFH High Dose 100 3 07/03/18 07/03/18 07/03/18 23:40 23:46 23:56 WBC RBC Hgb Hct MCV MCH MCHC RDW Plt Count MPV Prelim Diff (Auto) Neut % (Auto) Lymph % (Auto) [place] % (Auto) Eos % (Auto) Baso % (Auto) Neut # (Auto) Lymph # (Auto) [place] # (Auto) Eos # (Auto) Baso # (Auto) WBC Differential Seg Neuts % (Manual) Band Neuts % (Manual) Lymphocytes % (Manual) Monocytes % (Manual) Myelocytes % (Man) Abs Neuts (Manual) Differential Comment Platelet Estimate Platelet Morphology RBC Morphology APTT Sodium 151 H Potassium 3.2 L Chloride 112 H Carbon Dioxide 30.5 Anion Gap 9 BUN 53 H Creatinine 1.26 Estimated GFR 68 L POC Glucose 206 H Random Glucose 215 H Lactic Acid 1.3 Calcium 7.4 L* Prot Corrected Calcium 8.2 L Phosphorus 2.9 Magnesium 2.3 Total Bilirubin 0.5 AST 35 ALT 55 Alkaline Phosphatase 51 Total Protein 5.6 L Albumin 2.6 L Serotonin Release Assay ANNMARIE UFH Low Dose 0.1 ANNMARIE UFH Low Dose 0.5 ANNMARIE UFH High Dose 100 07/04/18 07/04/18 07/04/18 02:48 04:25 06:02 WBC RBC Hgb Hct MCV MCH MCHC RDW Plt Count MPV Prelim Diff (Auto) Neut % (Auto) Lymph % (Auto) [place] % (Auto) Eos % (Auto) Baso % (Auto) Neut # (Auto) Lymph # (Auto) [place] # (Auto) Eos # (Auto) Baso # (Auto) WBC Differential Seg Neuts % (Manual) Band Neuts % (Manual) Lymphocytes % (Manual) Monocytes % (Manual) Myelocytes % (Man) Abs Neuts (Manual) Differential Comment Platelet Estimate Platelet Morphology RBC Morphology APTT 65.3 H Sodium Potassium Chloride Carbon Dioxide Anion Gap BUN Creatinine Estimated GFR POC Glucose 175 H Random Glucose Lactic Acid 1.0 Calcium Prot Corrected Calcium Phosphorus Magnesium Total Bilirubin AST ALT Alkaline Phosphatase Total Protein Albumin Serotonin Release Assay ANNMARIE UFH Low Dose 0.1 ANNMARIE UFH Low Dose 0.5 ANNMARIE UFH High Dose 100 07/04/18 07/04/18 07/04/18 08:02 10:48 11:56 WBC RBC Hgb Hct MCV MCH MCHC RDW Plt Count MPV Prelim Diff (Auto) Neut % (Auto) Lymph % (Auto) [place] % (Auto) Eos % (Auto) Baso % (Auto) Neut # (Auto) Lymph # (Auto) [place] # (Auto) Eos # (Auto) Baso # (Auto) WBC Differential Seg Neuts % (Manual) Band Neuts % (Manual) Lymphocytes % (Manual) Monocytes % (Manual) Myelocytes % (Man) Abs Neuts (Manual) Differential Comment Platelet Estimate Platelet Morphology RBC Morphology APTT Sodium Potassium 3.4 L Chloride Carbon Dioxide Anion Gap BUN Creatinine Estimated GFR POC Glucose 184 H 220 H Random Glucose Lactic Acid Calcium Prot Corrected Calcium Phosphorus Magnesium Total Bilirubin AST ALT Alkaline Phosphatase Total Protein Albumin Serotonin Release Assay ANNMARIE UFH Low Dose 0.1 ANNMARIE UFH Low Dose 0.5 ANNMARIE UFH High Dose 100 07/04/18 15:45 WBC RBC Hgb Hct MCV MCH MCHC RDW Plt Count MPV Prelim Diff (Auto) Neut % (Auto) Lymph % (Auto) [place] % (Auto) Eos % (Auto) Baso % (Auto) Neut # (Auto) Lymph # (Auto) [place] # (Auto) Eos # (Auto) Baso # (Auto) WBC Differential Seg Neuts % (Manual) Band Neuts % (Manual) Lymphocytes % (Manual) Monocytes % (Manual) Myelocytes % (Man) Abs Neuts (Manual) Differential Comment Platelet Estimate Platelet Morphology RBC Morphology APTT Sodium Potassium Chloride Carbon Dioxide Anion Gap BUN Creatinine Estimated GFR POC Glucose 195 H Random Glucose Lactic Acid Calcium Prot Corrected Calcium Phosphorus Magnesium Total Bilirubin AST ALT Alkaline Phosphatase Total Protein Albumin Serotonin Release Assay ANNMARIE UFH Low Dose 0.1 ANNMARIE UFH Low Dose 0.5 ANNMARIE UFH High Dose 100 Culture Results: Microbiology 07/02/18 22:00 Gram Stain - Final Sputum - Endotracheal Sputum Culture - Preliminary Heavy growth normal respiratory justyn at 24 hours 07/02/18 05:41 Aerobic Blood Culture - Preliminary Blood - Peripheral No growth in 2 days Anaerobic Blood Culture - Preliminary No growth in 2 days 07/02/18 05:47 Aerobic Blood Culture - Preliminary Blood - Peripheral No growth in 2 days Anaerobic Blood Culture - Preliminary No growth in 2 days Imaging Studies: Impressions Abdomen X-Ray 07/04/18 00:01 CONCLUSION: Findings of colonic ileus Chest X-Ray 07/04/18 06:00 CONCLUSION: Cardiomegaly and findings of vascular congestion without overt failure. There has been no significant change when compared to the prior exam. Medications: Active Medications Generic Name Dose Route Start Last Admin Trade Name Freq PRN Reason Stop Dose Admin Acetaminophen 650 mg 06/20/18 02:11 07/01/18 15:05 Tylenol PO 650 mg Q4H PRN Administration Temp > 100.4 Albuterol 1 ampul 06/26/18 12:00 07/04/18 14:50 Duoneb Neb (Antoine) NEB 1 ampul Q4HR NEB ANTOINE Administration Artificial Tears 1 drop 07/02/18 16:00 07/04/18 16:30 Tears Naturale Opth Drops EACH EYE 1 drop Q8H ANTOINE Administration Bisacodyl 10 mg 06/24/18 15:15 07/04/18 08:23 Dulcolax Supp RECTAL 10 mg DAILY ANTOINE Administration Budesonide 0.5 mg 06/26/18 20:00 07/04/18 07:57 Pulmocort Respule Neb NEB 0.5 mg Q12HR NEB ANTOINE Administration Chlorhexidine Gluconate 15 ml 06/26/18 20:00 07/04/18 08:18 Peridex 0.12% Oral Kit OROPHARYNG 15 ml BID@0800,1999 ANTOINE Administration Diltiazem HCl 60 mg 06/30/18 09:00 07/04/18 17:36 Cardizem PO 60 mg QID ANTOINE Administration Duloxetine HCl 20 mg 06/23/18 18:00 06/28/18 09:09 Cymbalta PO Not Given DAILY ANTOINE Famotidine 20 mg 07/01/18 18:00 07/04/18 17:39 Pepcid Pf Inj IV.PUSH 20 mg Q12H ANTOINE Administration Hydralazine HCl 50 mg 06/23/18 18:00 07/04/18 17:35 Apresoline PO Not Given TID ANTOINE Potassium Chloride 40 meq in 100 mls @ 25 mls/hr 06/28/18 06:59 07/04/18 09: 15 Kcl 40 Meq Premix Inj IV.SIG Infused Q2H PRN Infusion For Potassium 2.8 - 3.2 mEq/L Propofol 1,000 mg in 100 mls @ 2.64 mls/hr 07/02/18 04:21 07/04/18 07:45 Diprivan 1000 Mg/100 Ml Inj IV.CONT 10 mcg/kg/min TITRATE PRN 5.28 mls/hr Per Protocol Administration Protocol 5 MCG/KG/MIN Cefepime HCl 2,000 mg/ Sodium 100 mls @ 200 mls/hr 07/02/18 05:00 07/04/18 14 :05 Chloride IV.SIG Infused Q8H ANTOINE Infusion Metronidazole/Sodium Chloride 100 mls @ 100 mls/hr 07/02/18 06:00 07/04/18 14 :35 Flagyl 500 Mg Inj IV.SIG Infused Q8H ANTOINE Infusion Norepinephrine Bitartrate 16 250 mls @ 1.87 mls/hr 07/02/18 14:15 07/03/18 22 :03 mg/ Sodium Chloride IV.CONT 0 mcg/min TITRATE PRN 0 mls/hr See Protocol Titration Protocol 2 MCG/MIN Sodium Chloride 38.5 meq/ 1,009.625 mls @ 75 mls/hr 07/02/18 16:00 07/04/18 13:31 Sterile Water IV.CONT 100 mls/hr .[id number] ANTOINE Administration Insulin Human Regular 0 units 06/28/18 08:00 07/04/18 16:00 Novolin R Correctional Sugar Inj SQ 2 units Q4HR ANTOINE Administration Protocol Lactulose 30 ml 07/03/18 13:00 07/04/18 17:36 Lactulose Liq PO 30 ml QID ANTOINE Administration Metoprolol Tartrate 2.5 mg 06/27/18 15:08 07/01/18 01:26 Lopressor Inj IV.PUSH 2.5 mg Q6H PRN Administration HEART RATE GREATER THAN 115 Miscellaneous Medication 1 each 06/26/18 12:00 07/04/18 16:30 OROPHARYNG 1 each 0000,0400,1200,1600 ANTOINE Administration Pantoprazole Sodium 20 mg 06/20/18 09:00 06/28/18 09:09 Protonix PO Not Given DAILY ANTOINE Potassium Bicarb/Potassium Chloride 50 meq 06/28/18 06:59 07/04/18 17:35 K-Lyte Cl Eff PO 50 meq UNSCH PRN Administration For Potassium 3.3 - 3.5 mEq/L Senna/Docusate Sodium 1 tab 06/20/18 09:00 07/04/18 08:18 Maria Guadalupe-Colace PO 1 tab BID ANTOINE Administration Simethicone 80 mg 06/24/18 18:30 07/04/18 17:37 Mylicon Chew PO 80 mg PCHS ANTOINE Administration Sodium Chloride 2 ml 06/20/18 09:00 07/04/18 08:24 Ns Flush IV.FLUSH 2 ml BID ANTOINE Administration Sodium Chloride 2 ml 06/20/18 02:09 07/03/18 05:01 Ns Flush IV.FLUSH 2 ml PRN PRN Administration FLUSH AFTER USING IV ACCESS Sodium Chloride 0 ml 07/03/18 09:00 07/04/18 08:24 Ns Flush IV.FLUSH 10 ml DAILY ANTOINE Administration Sterile Water 250 ml 07/04/18 09:00 07/04/18 17:09 Free Water G-TUBE 250 ml Q8H ANTOINE Administration Whey 1 packet 06/28/18 09:00 07/04/18 17:35 Beneprotein Powder G-TUBE 1 packet TID ANTOINE Administration Objective Remarks: GENERAL: chronically ill appearing man, intubated SKIN: Warm and dry. HEAD: Normocephalic. EYES: No scleral icterus. No injection or drainage. NECK: Supple, trachea midline. No JVD or lymphadenopathy. CARDIOVASCULAR: Regular rate and rhythm without murmurs. RESPIRATORY: Breath sounds equal bilaterally. GASTROINTESTINAL: Abdomen soft, non-tender, nondistended. EXTREMITIES: No edema NEUROLOGICAL: follows commands Assessment/Plan - Plan 1. TCP: fibrinogen within normal limits, coags WNL. No evidence of DIC. 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 Duplex ultrasound of bilateral lower extremity negative , no PE. No upper extremity thormbosis. Smear with limited fragments, LDH slighly elevated, haptoglobin WNL. No evidence of TMA/hemolysis. No evidence of hypersplenism, liver disease. Early cells (metamyelocytes) present on differential, however this can be presents in illness/steroids. will continue to monitor. 2. Leukocytosis: reactive. steroids, on abx infections 3. Anemia: critical illness iatrogenic anemia of inflammation, continue to monitor. 4. 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 Discontinued argatroban gtt.
[2018-07-04 19:52] LABS: Activated Partial Thrombo Time 44.7 sec (23.4-31.7); INR 1.3 Ratio; Prothrombin Time 13.1 sec (9.8-11.6)
--- NOTE | 2018-07-04 20:07 | P.PNPL ---
Subjective Interval history: 73 YOAA male with COPD, 02 dependent Follows at [facility] Admitted with AMS, COPD exac Remains intubated NGT to suction On Argatroban drip had large BM Abd less distended On CPAP Physical Exam Vital signs: Vital Signs 07/03/18 20:18 07/03/18 21:00 07/03/18 21:52 Temperature Pulse Rate 94 H 95 H 90 Respiratory Rate 24 19 24 Blood Pressure 116/65 120/63 135/64 Pulse Oximetry 97 97 97 07/03/18 21:53 07/03/18 21:54 07/03/18 21:55 Temperature Pulse Rate 90 91 H 91 H Respiratory Rate 24 24 24 Blood Pressure 150/66 H 145/58 H 129/71 Pulse Oximetry 96 96 96 07/03/18 21:56 07/03/18 21:57 07/03/18 22:00 Temperature Pulse Rate 91 H 91 H 90 Respiratory Rate 36 H 36 H 33 H Blood Pressure 153/66 H 146/67 H 143/67 H Pulse Oximetry 97 96 96 07/03/18 22:30 07/03/18 23:00 07/03/18 23:29 Temperature Pulse Rate 89 88 92 H Respiratory Rate 32 H 20 18 Blood Pressure 142/67 H 151/61 H Pulse Oximetry 97 97 07/03/18 23:30 07/04/18 00:00 07/04/18 00:30 Temperature 98.7 F Pulse Rate 90 91 H 91 H Respiratory Rate 19 19 20 Blood Pressure 145/65 H 127/73 134/73 Pulse Oximetry 98 99 99 07/04/18 01:01 07/04/18 01:26 07/04/18 01:30 Temperature Pulse Rate 97 H 92 H Respiratory Rate 26 H 21 34 H Blood Pressure 140/64 114/66 Pulse Oximetry 98 99 95 07/04/18 02:00 07/04/18 02:31 07/04/18 03:00 Temperature Pulse Rate 64 68 69 Respiratory Rate 26 H 34 H 18 Blood Pressure 125/57 L 127/59 L 126/58 L Pulse Oximetry 99 97 99 07/04/18 03:26 07/04/18 03:30 07/04/18 04:00 Temperature 98.6 F Pulse Rate 73 72 83 Respiratory Rate 19 19 6 L Blood Pressure 123/60 123/69 Pulse Oximetry 99 100 07/04/18 04:29 07/04/18 04:31 07/04/18 05:00 Temperature Pulse Rate 80 80 Respiratory Rate 19 17 22 Blood Pressure 142/63 H 134/65 Pulse Oximetry 98 98 99 07/04/18 05:30 07/04/18 06:00 07/04/18 06:30 Temperature Pulse Rate 80 76 80 Respiratory Rate 20 19 22 Blood Pressure 136/67 135/61 132/63 Pulse Oximetry 99 99 100 07/04/18 07:00 07/04/18 07:30 07/04/18 07:58 Temperature Pulse Rate 80 71 85 Respiratory Rate 22 18 15 Blood Pressure 129/63 136/62 Pulse Oximetry 100 100 100 07/04/18 08:00 07/04/18 08:30 07/04/18 09:00 Temperature 98.7 F Pulse Rate 78 77 78 Respiratory Rate 15 14 14 Blood Pressure 139/68 131/61 129/58 L Pulse Oximetry 100 100 99 07/04/18 09:30 07/04/18 10:00 07/04/18 10:30 Temperature Pulse Rate 79 79 78 Respiratory Rate 17 15 25 H Blood Pressure 130/62 138/62 130/67 Pulse Oximetry 98 99 99 07/04/18 11:00 07/04/18 11:30 07/04/18 11:46 Temperature Pulse Rate 78 81 78 Respiratory Rate 16 18 20 Blood Pressure 134/65 131/60 Pulse Oximetry 99 98 100 07/04/18 12:00 07/04/18 12:31 07/04/18 13:00 Temperature 98.7 F Pulse Rate 77 81 75 Respiratory Rate 18 15 2 L Blood Pressure 122/61 139/65 129/60 Pulse Oximetry 99 98 94 L 07/04/18 13:30 07/04/18 14:00 07/04/18 14:30 Temperature Pulse Rate 78 78 80 Respiratory Rate 16 17 19 Blood Pressure 140/72 130/65 148/69 H Pulse Oximetry 99 99 99 07/04/18 14:50 07/04/18 15:00 07/04/18 15:14 Temperature Pulse Rate 80 78 Respiratory Rate 14 15 15 Blood Pressure 127/63 Pulse Oximetry 99 97 07/04/18 15:30 07/04/18 16:00 07/04/18 16:30 Temperature 98.8 F Pulse Rate 79 81 80 Respiratory Rate 24 28 H 23 Blood Pressure 127/59 L 137/65 132/58 L Pulse Oximetry 99 99 99 07/04/18 17:00 07/04/18 18:00 Temperature Pulse Rate 79 81 Respiratory Rate 17 Blood Pressure 113/55 L Pulse Oximetry 99 Intake & Output 07/04/18 07/04/18 07/05/18 06:59 18:59 06:59 Intake Total 1659.625 / 6726.679 6402.625 / 1763.625 Output Total 2049 2825 / 2825 Balance -390.375 / -390.375 -1061.375 / -1061.375 Weight 90.7 kg Intake: IV 1659.625 / 6512.436 8762.625 / 1763.625 Novastan Inj 250 MG In NS Inj 250 / 250 254 / 254 247.5 ML @ Per Protocol IV.CONT TITRATE PRN Rx#:[id number] Diprivan 1000 mg/100 ml Inj 1, 100 / 100 000 mg In 100 ml @ 5 MCG/KG/MIN 2.64 mls/hr IV.CONT TITRATE PRN Rx#:[id number] Sodium Chloride 23.4% Inj 38.5 1009.625 / 0567.770 7486.625 / 1009.625 MEQ In Sterile Water for Inj 1, 000 ML @ 75 mls/hr IV.CONT . [id number] WOLF Rx#:[id number] Maxipime Inj 2,000 MG In NS Inj 200 / 200 100 / 100 100 ML @ 200 mls/hr IV.SIG Q8H WOLF Rx#:[id number] KCl 40 mEq Premix Inj 40 meq In 100 / 100 100 / 100 100 ml @ 25 mls/hr IV.SIG Q2H PRN Rx#:[id number] Flagyl 500 MG Inj 100 ML @ 100 100 / 100 200 / 200 mls/hr IV.SIG Q8H WOLF Rx#: [id number] Output: Stool 1999 / 1999 Urine Amount (Catheter) 2049 825 / 825 Indwelling Urethral Catheter 2049 825 / 825 Other: Bladder Irrigation Fluid - Amount Instilled Indwelling Urethral Catheter 75 Date of Last Bowel Movement 07/04/18 07/04/18 GENERAL: WBWN MAle on vent, opens eyes SKIN: Warm and dry. HEAD: Normocephalic. EYES: No scleral icterus. No injection or drainage. NECK: Supple, trachea midline. No JVD or lymphadenopathy. CARDIOVASCULAR: Regular rate and rhythm without murmurs, gallops, or rubs. RESPIRATORY: Breath sounds equal bilaterally. No accessory muscle use. GASTROINTESTINAL: Abdomen soft, non-tender, nondistended. MUSCULOSKELETAL: No cyanosis, or edema. BACK: Nontender without obvious deformity. No CVA tenderness. - Urinary Catheter Management Indwelling Urethral Catheter Cath placed during this visit: yes Reason for continuing: Hourly intake/output Insertion date: 06/27/18 Insertion time: 16:00 Assessment and Plan - Plan IMPRESSION: Hypercapnoic RF, Reintubated COPD exac AMS improved HTN HIT positive PLAN: Vent support Aerosol nebs Cont Abx Supplement 02 Monitor BS Argatroban drip NGT to suction Cont CPAP
[2018-07-05] MEDS: Propofol 1000 mg/100 ml Inj 1,000 MG/100 ML BOTTLE IV.CONT PRN (01:21)
[2018-07-05] MEDS: Oral Hygiene Kit OROPHARYNG SCH ×3 (04:18→16:29)
[2018-07-05] MEDS: Famotidine PF Inj 20 MG/2 ML Vial IV.PUSH SCH ×2 (05:23→17:30)
[2018-07-05] MEDS: Insulin NovoLIN Regular Correctional Sugar Inj SQ SCH ×5 (05:30→21:41)
[2018-07-05 06:17] LABS: Hematocrit 23.1 % (39.0-51.0); Hemoglobin 7.6 gm/dL (13.0-17.0); Lymph # (Auto) 0.1 th/mm3 (1.0-4.8); Lymph % (Auto) 0.8 % (9.0-44.0); Mean Corpuscular Hemoglobin 29.9 pg (27.0-34.0); Mean Corpuscular Volume 90.5 fL (80.0-100.0); Mean Platelet Volume 11.4 fL (7.0-11.0); Mono # (Auto) 0.5 th/mm3 (0.0-0.9); Mono % (Auto) 3.5 % (0.0-8.0); Neut # (Auto) 14.3 th/mm3 (1.8-7.7); Neut % (Auto) 95.7 % (16.0-70.0); Platelet Count 64 th/mm3 (150-450); Red Blood Count 2.55 mil/mm3 (4.50-5.90); Red Cell Distribution Width 13.2 % (11.6-17.2)
[2018-07-05 06:19] LABS: Alanine Aminotransferase 45 U/L (12-78); Albumin 2.6 g/dL (3.4-5.0); Anion Gap 6 meq/L (5-15); Aspartate Aminotransferase 26 U/L (15-37); Blood Urea Nitrogen 36 mg/dL (7-18); Calcium 7.6 mg/dL (8.5-10.1); Carbon Dioxide 31.2 meq/L (21.0-32.0); Chloride 113 meq/L (98-107); Glomerular Filtration Rate Greater Than 89 mL/min (>89); Glucose,Random 205 mg/dL (74-106); Magnesium 2.4 mg/dL (1.5-2.5); Potassium 3.8 meq/L (3.5-5.1); Sodium 150 meq/L (136-145)
[2018-07-05 06:24] LABS: Alkaline Phosphatase 52 U/L (45-117); Phosphorus 1.9 mg/dL (2.5-4.9); Total Protein 5.5 g/dL (6.4-8.2)
--- NOTE | 2018-07-05 07:14 | P.PNCC ---
Subjective Subjective Remarks/Hospital Course: Mr. Curry is a 73-year-old -[place] male with past medical history significant for COPD on 3 L nasal cannula, hypertension, hyperlipidemia and anxiety who was admitted to the hospitalist service on 06/19/2018 for worsening shortness of breath due to COPD exacerbation. He was treated with IV Solu- Medrol, IV antibiotics, breathing treatments gradually improved. Patient was also complaining about dyspepsia and underwent EGD by GI yesterday. Per report the EGD was normal but patient developed worsening shortness of breath and COPD exacerbation postprocedure, possibly from aspiration after sedated. Two ABGs done yesterday showed hypercapnic respiratory failure second 1 was on BiPAP and this was improved with pH 7.3 with PCO2 of 74. Patient remained on BiPAP overnight however was noticed to be lethargic today a.m., stat ABG showed pH of 7.21 PCO2 110 PO2 88 while on BiPAP. Patient was lethargic intermittently dozing off due to CO2 narcosis. Critical care medicine was consulted and I immediately evaluated the patient. Patient had obviously failed BiPAP I proceeded with endotracheal intubation placed on mechanical ventilation. Postintubation I have ordered single dose of Solu-Medrol 125 mg x1 continue Solu -Medrol 60 every 8, discontinue ceftriaxone and start cefepime 2 g IV every 8 hours continue azithromycin. Add budesonide inhaled, placed on scheduled DuoNeb every 4 hours and as needed. 06/27: Patient was intubated yesterday for severe hypercapnic respiratory failure. Currently remains intubated sedated and intubated remains diminished bilaterally. Heavily sedated for ventilator synchrony 06/28: Urine output significantly improved with fluid resuscitation. Creat down trending now 2 from 2.3, UO >3.3 L. Remains intubated sedated. Will initiate daily sedation vacation and CPAP trials 06/29: More awake today tolerating CPAP trials intermittently follows commands but gets agitated/frustrated fast. Urine output remains excellent creatinine 1.4. However sodium increasing 158 today. Night fitness/wellness director had changed fluid to D5 W for free water replacement. Due to hypoglycemia will change to quarter normal saline at 150 mL/h repeat CMP in the afternoon 06/30 Patient was extubated yesterday. Awake 07/01 Patient is lying in bed in NAD. T: 100.5 07/02: Intubated early this morning due to acute hypoxic respiratory failure. Central line placed due to hypotension. Plan for GI perform endoscopic decompression of this large bowel today. Arousable and does follow commands. Placed on argatroban SUBJECTIVE: 07/03: Currently, intubated with borderline blood pressure. Central line placed yesterday due to hypotension. Did not move bowels despite 1 L of fluid from colonoscopy yesterday and multiple laxatives provided. See orders for additional laxatives today. Might need neostigmine. 07/04 Patient remains intubated and sedated with Diprivan. Given Neostigmine last night. KUB this morning showed colonic ileus. Afebrile. On Argatroban. 07/05 No events overnight, sedated with Diprivan and intubated. Off Argatroban. Objective Vital Signs / I&O: Vital Signs 07/04/18 07:30 07/04/18 07:58 07/04/18 08:00 Temperature 98.7 F Pulse Rate 71 85 78 Respiratory Rate 18 15 15 Blood Pressure 136/62 139/68 Pulse Oximetry 100 100 100 07/04/18 08:30 07/04/18 09:00 07/04/18 09:30 Temperature Pulse Rate 77 78 79 Respiratory Rate 14 14 17 Blood Pressure 131/61 129/58 L 130/62 Pulse Oximetry 100 99 98 07/04/18 10:00 07/04/18 10:30 07/04/18 11:00 Temperature Pulse Rate 79 78 78 Respiratory Rate 15 25 H 16 Blood Pressure 138/62 130/67 134/65 Pulse Oximetry 99 99 99 07/04/18 11:30 07/04/18 11:46 07/04/18 12:00 Temperature 98.7 F Pulse Rate 81 78 77 Respiratory Rate 18 20 18 Blood Pressure 131/60 122/61 Pulse Oximetry 98 100 99 07/04/18 12:31 07/04/18 13:00 07/04/18 13:30 Temperature Pulse Rate 81 75 78 Respiratory Rate 15 2 L 16 Blood Pressure 139/65 129/60 140/72 Pulse Oximetry 98 94 L 99 07/04/18 14:00 07/04/18 14:30 07/04/18 14:50 Temperature Pulse Rate 78 80 80 Respiratory Rate 17 19 14 Blood Pressure 130/65 148/69 H Pulse Oximetry 99 99 07/04/18 15:00 07/04/18 15:14 07/04/18 15:30 Temperature Pulse Rate 78 79 Respiratory Rate 15 15 24 Blood Pressure 127/63 127/59 L Pulse Oximetry 99 97 99 07/04/18 16:00 07/04/18 16:30 07/04/18 17:00 Temperature 98.8 F Pulse Rate 81 80 79 Respiratory Rate 28 H 23 17 Blood Pressure 137/65 132/58 L 113/55 L Pulse Oximetry 99 99 99 07/04/18 18:00 07/04/18 20:00 07/04/18 20:49 Temperature 98.4 F Pulse Rate 81 86 88 Respiratory Rate 20 20 Blood Pressure 126/72 Pulse Oximetry 100 98 07/04/18 22:00 07/04/18 23:28 07/05/18 00:00 Temperature 98.2 F Pulse Rate 79 80 80 Respiratory Rate 18 18 Blood Pressure 128/63 Pulse Oximetry 100 07/05/18 02:00 07/05/18 04:00 07/05/18 04:15 Temperature 98.5 F Pulse Rate 70 79 78 Respiratory Rate 18 18 Blood Pressure 127/66 Pulse Oximetry 99 07/05/18 06:00 Temperature Pulse Rate 81 Respiratory Rate Blood Pressure Pulse Oximetry Intake & Output 07/04/18 07/05/18 07/05/18 18:59 06:59 18:59 Intake Total 1763.625 / 0978.440 3921.625 / 1509.625 Output Total 2825 / 2825 1300 / 1300 Balance -1061.375 / -1061.375 209.625 / 209.625 Weight 91.5 kg Intake: IV 1763.625 / 0987.631 7583.625 / 1509.625 Novastan Inj 250 MG In NS Inj 254 / 254 247.5 ML @ Per Protocol IV.CONT TITRATE PRN Rx#:[id number] Diprivan 1000 mg/100 ml Inj 1, 100 / 100 100 / 100 000 mg In 100 ml @ 5 MCG/KG/MIN 2.64 mls/hr IV.CONT TITRATE PRN Rx#:[id number] Sodium Chloride 23.4% Inj 38.5 1009.625 / 0210.132 4877.625 / 1009.625 MEQ In Sterile Water for Inj 1, 000 ML @ 75 mls/hr IV.CONT . [id number] [facility] Rx#:[id number] Maxipime Inj 2,000 MG In NS Inj 100 / 100 200 / 200 100 ML @ 200 mls/hr IV.SIG Q8H [facility] Rx#:[id number] KCl 40 mEq Premix Inj 40 meq In 100 / 100 100 ml @ 25 mls/hr IV.SIG Q2H PRN Rx#:[id number] Flagyl 500 MG Inj 100 ML @ 100 200 / 200 200 / 200 mls/hr IV.SIG Q8H [facility] Rx#: [id number] Output: Stool 1999 / 1999 Urine Amount (Catheter) 825 / 825 1200 / 1200 Indwelling Urethral Catheter 825 / 825 1200 / 1200 Gastric Drainage 100 / 100 Left Nare Nasogastric Tube 100 / 100 Other: Date of Last Bowel Movement 07/04/18 07/04/18 # Bowel Movements 0 Result Diagrams: 07/05/18 05:30 07/05/18 05:30 Other Results: Laboratory Results - last 12 hr 07/04/18 07/04/18 07/04/18 15:32 20:39 22:25 WBC RBC Hgb Hct MCV MCH MCHC RDW Plt Count MPV Prelim Diff (Auto) Neut % (Auto) Lymph % (Auto) Childress % (Auto) Eos % (Auto) Baso % (Auto) Neut # (Auto) Lymph # (Auto) Child[place] # (Auto) Eos # (Auto) Baso # (Auto) Differential Comment PT 13.1 H INR 1.3 APTT 44.7 H D Fibrinogen 315 Sodium Potassium Chloride Carbon Dioxide Anion Gap BUN Creatinine Estimated GFR POC Glucose 189 H Random Glucose Lactic Acid 0.7 Calcium Phosphorus Magnesium Total Bilirubin AST ALT Alkaline Phosphatase Total Protein Albumin 07/04/18 07/04/18 07/05/18 22:25 23:16 05:29 WBC RBC Hgb Hct MCV MCH MCHC RDW Plt Count MPV Prelim Diff (Auto) Neut % (Auto) Lymph % (Auto) Child[place] % (Auto) Eos % (Auto) Baso % (Auto) Neut # (Auto) Lymph # (Auto) Child[place] # (Auto) Eos # (Auto) Baso # (Auto) Differential Comment PT INR APTT Fibrinogen Sodium Potassium 4.0 Chloride Carbon Dioxide Anion Gap BUN Creatinine Estimated GFR POC Glucose 189 H 203 H Random Glucose Lactic Acid Calcium Phosphorus Magnesium Total Bilirubin AST ALT Alkaline Phosphatase Total Protein Albumin 07/05/18 07/05/18 07/05/18 05:30 05:30 05:30 WBC 15.0 H RBC 2.55 L Hgb 7.6 L Hct 23.1 L MCV 90.5 MCH 29.9 MCHC 33.0 RDW 13.2 Plt Count 64 L MPV 11.4 H Prelim Diff (Auto) Slide review pending Neut % (Auto) 95.7 H Lymph % (Auto) 0.8 L Childress % (Auto) 3.5 Eos % (Auto) 0.0 Baso % (Auto) 0.0 Neut # (Auto) 14.3 H Lymph # (Auto) 0.1 L Childress # (Auto) 0.5 Eos # (Auto) 0.0 Baso # (Auto) 0.0 Differential Comment . PT INR APTT 30.5 D Fibrinogen Sodium 150 H Potassium 3.8 Chloride 113 H Carbon Dioxide 31.2 Anion Gap 6 BUN 36 H Creatinine 0.91 Estimated GFR Greater than 89 POC Glucose Random Glucose 205 H Lactic Acid Calcium 7.6 L Phosphorus 1.9 L D Magnesium 2.4 Total Bilirubin 0.5 AST 26 ALT 45 Alkaline Phosphatase 52 Total Protein 5.5 L Albumin 2.6 L Imaging: Abdomen Ultrasound 06/21/18 00:00 CONCLUSION: 1. No ascites is identified within the abdomen. Abdomen/Bladder Ultrasound 06/28/18 00:00 CONCLUSION: 1. Echogenic kidneys characteristic of medical renal disease. No hydronephrosis. Bladder decompressed by [place] Chest CTA 07/02/18 00:00 CONCLUSION: 1. No pulmonary embolus. 2. Diffuse but basilar predominant bilateral airspace disease. 3. Endotracheal and endobronchial secretions are demonstrated. 4. Moderate emphysema. 5. Left ventricular hypertrophy. Venous Doppler Study 07/02/18 00:00 CONCLUSION: 1. Limited, no evidence for thrombosis. Abdomen/Pelvis CT 07/02/18 04:20 CONCLUSION: Colonic distention most likely representing moderate adynamic ileus. However, distal sigmoid colon is decompressed and a sigmoid stricture is conceivable but considered less likely. Apparent mild proctitis. Clinical surveillance and follow-up CT recommended. Abdomen X-Ray 07/04/18 00:01 CONCLUSION: Findings of colonic ileus Chest X-Ray 07/04/18 06:00 CONCLUSION: Cardiomegaly and findings of vascular congestion without overt failure. There has been no significant change when compared to the prior exam. Objective Remarks: GENERAL: Patient is 73 yo lying in bed in NAD orotracheally intubated SKIN: Warm and dry. HEAD: Normocephalic. EYES: No scleral icterus. No injection or drainage. NECK: Supple, trachea midline. No JVD or lymphadenopathy. CARDIOVASCULAR: Regular rate and rhythm without murmurs, gallops, or rubs. RESPIRATORY: Distant breath sounds. Few crackles patient bases. Clears with suctioning. GASTROINTESTINAL: Abdomen distended. Protuberant. Hypoactive bowel sounds appreciated. MUSCULOSKELETAL: No significant peripheral edema. Neuro: Arousable the ventilator and follows command. Assessment and Plan - Assessment and Plan Plan: ASSESSMENT: Acute hypercapnic respiratory failure Acute COPD exacerbation Altered mental status due to CO2 narcosis Acute kidney injury/failure Hypertension Leukocytosis Hyperglycemia COPD Hypernatremia Colonic ileus PLAN: NEURO: -Monitor neuro status, -On propofol drip for sedation/analgesia while intubated. Goal of RASS of -2. Daily sedation vacation RESP: -Continue with vent support keep sats >92% -Extubated 06/29. Reintubated 07/02 -DuoNeb every 4 hours scheduled and as needed -IV Solu-Medrol 40 mg Q12 -Inhaled budesonide -Continue cefepime continue azithromycin -Spontaneous breathing trials as alonso. CV: - Monitor HR and BP keep MAP>65mmHg -Continue with BP meds, Cardizem 60mg Q6,, Hydralazine 50mg TID with holding parameters GI: -N.p.o. status. NGT to LIWS -IV famotidine -GI for decompression 07/02. On docusate sodium/senna 1 tablet twice daily, lactulose 30 cc 4 times daily, GoLYTELY 2 L x1 now. Mineral oil 15 mL x1 now. -abdominal pressure 17-18 -KUB 07/04- colonic ileus, repeat KUB today FEN/: -Monitor renal function, I/O's, electrolytes replacement per protocol. - Change IVF D5W@42ml/hr -Change free water 250ml Q6. Monitor sodium level. ID: -Antibiotics with cefepime and completed azithromycin. Monitor for signs of infections ( Fever, WBC) -Sputum cultures-neg to date -07/02 BC: NGTS, sputum cx 10/31:normal resp justyn HEME: -Monitor CBC, coags, Hep PLT is positive. ANNMARIE negative. Hematology is following. Off argatroban drip ENDO: -Electrolyte replacement per protocol -Sliding scale insulin medium scale PROPH: -Bilateral lower extremity SCDs. PPI , -Doppler US LE negative DVT LINES: -Utilize peripheral IVs, Critical care time 35 minutes
[2018-07-05] MEDS: Dextrose 5% in Water Inj 1,000 ML IV.CONT SCH (07:38)
[2018-07-05] MEDS: MethylPREDNISolone Sod Succinate Inj 40 MG/ML Vial IV.PUSH SCH ×2 (08:32→21:22)
[2018-07-05] MEDS: Chlorhexidine 0.12% Oral Kit 15 ML UDC OROPHARYNG SCH ×2 (08:32→21:28)
[2018-07-05] MEDS: Artificial Tears Opth Drops 15 ML Bottle EACH EYE SCH ×2 (08:33→16:29)
[2018-07-05] MEDS: hydrALAZINE 50 MG Tablet PO SCH ×3 (08:34→17:23)
[2018-07-05] MEDS: Beneprotein Powder Packet G-TUBE SCH ×3 (08:35→17:28)
[2018-07-05] MEDS: dilTIAZem 60 MG Tablet PO SCH ×4 (08:35→21:28)
[2018-07-05] MEDS: Senna/Docusate Sodium 8.6/50 MG Tablet PO SCH ×2 (08:35→21:28)
[2018-07-05] MEDS: Bisacodyl 10 MG Supp RECTAL SCH (08:36)
[2018-07-05] MEDS: Potassium Phosphate 500 MG Soluble Tablet PO PRN ×4 (08:36→23:17)
[2018-07-05] MEDS: Simethicone 80 MG Chew Tablet PO SCH ×4 (08:40→21:28)
--- NOTE | 2018-07-05 08:44 | XR ---
EXAM DATE: 07/05/2018 8:31 AM EDT AGE/SEX: 73 years / Male INDICATIONS: Abdominal distention. Possible ileus. CLINICAL DATA: This is the patient's subsequent encounter. Patient reports that signs and symptoms h ave been present for 4 - 6 days and indicates a pain score of Nonresponsive. MEDICAL/SURGICAL HISTORY: . Asthma. Chronic obstructive pulmonary disease. Hypertension. None. COMPARISON: C, ABDOMEN 1V KUB, 07/04/2018. . FINDINGS: 2 AP views of the abdomen. Nasogastric tube remains in place with the tip in the stomach. Diffuse ai r-filled distention of the colon unchanged. CONCLUSION: No significant interval change with persistent diffuse air-filled distention of the colon suggesting ileus. Electronically signed by: Ernesto Figueredo MD 07/05/2018 8:42 AM EDT
[2018-07-05] MEDS ORDERED: Metoclopramide Inj 10 MG in Sodium Chlor 0.9% Inj 50 ML IV.SIG ONE (11:06)
--- NOTE | 2018-07-05 11:06 | P.PNGI ---
Subjective Interval history: Pt is intubated, lightly sedated, alert, has rectal tube in place, no output. Per nurse, pt had large liquid BM yesterday but non since, non in the recta tube. Abd still firm and distended. NGT to LIWS with gastric output. Physical Exam Vital signs: Vital Signs 07/04/18 11:00 07/04/18 11:30 07/04/18 11:46 Temperature Pulse Rate 78 81 78 Respiratory Rate 16 18 20 Blood Pressure 134/65 131/60 Pulse Oximetry 99 98 100 07/04/18 12:00 07/04/18 12:31 07/04/18 13:00 Temperature 98.7 F Pulse Rate 77 81 75 Respiratory Rate 18 15 2 L Blood Pressure 122/61 139/65 129/60 Pulse Oximetry 99 98 94 L 07/04/18 13:30 07/04/18 14:00 07/04/18 14:30 Temperature Pulse Rate 78 78 80 Respiratory Rate 16 17 19 Blood Pressure 140/72 130/65 148/69 H Pulse Oximetry 99 99 99 07/04/18 14:50 07/04/18 15:00 07/04/18 15:14 Temperature Pulse Rate 80 78 Respiratory Rate 14 15 15 Blood Pressure 127/63 Pulse Oximetry 99 97 07/04/18 15:30 07/04/18 16:00 07/04/18 16:30 Temperature 98.8 F Pulse Rate 79 81 80 Respiratory Rate 24 28 H 23 Blood Pressure 127/59 L 137/65 132/58 L Pulse Oximetry 99 99 99 07/04/18 17:00 07/04/18 18:00 07/04/18 20:00 Temperature 98.4 F Pulse Rate 79 81 86 Respiratory Rate 17 20 Blood Pressure 113/55 L 126/72 Pulse Oximetry 99 100 07/04/18 20:49 07/04/18 21:00 07/04/18 21:30 Temperature Pulse Rate 88 83 80 Respiratory Rate 20 18 17 Blood Pressure 126/63 133/63 Pulse Oximetry 98 100 100 07/04/18 22:00 07/04/18 22:30 07/04/18 23:00 Temperature Pulse Rate 79 90 77 Respiratory Rate 18 19 18 Blood Pressure 147/66 H 130/65 125/64 Pulse Oximetry 100 100 100 07/04/18 23:28 11/02/18 23:30 07/05/18 00:00 Temperature 98.2 F Pulse Rate 80 75 80 Respiratory Rate 18 18 18 Blood Pressure 127/64 128/63 Pulse Oximetry 100 100 07/05/18 00:30 07/05/18 01:00 07/05/18 01:30 Temperature Pulse Rate 79 73 80 Respiratory Rate 18 18 18 Blood Pressure 127/60 136/64 129/66 Pulse Oximetry 100 100 100 07/05/18 02:00 07/05/18 02:30 07/05/18 03:00 Temperature Pulse Rate 74 83 84 Respiratory Rate 18 19 18 Blood Pressure 130/65 133/68 124/66 Pulse Oximetry 100 100 100 07/05/18 03:30 07/05/18 04:00 07/05/18 04:15 Temperature 98.5 F Pulse Rate 86 79 78 Respiratory Rate 18 18 18 Blood Pressure 127/66 127/66 Pulse Oximetry 100 99 07/05/18 04:30 07/05/18 05:00 07/05/18 05:30 Temperature Pulse Rate 78 79 80 Respiratory Rate 18 18 18 Blood Pressure 127/66 138/66 134/68 Pulse Oximetry 100 100 100 07/05/18 06:00 07/05/18 06:30 07/05/18 07:00 Temperature Pulse Rate 81 80 90 Respiratory Rate 18 18 18 Blood Pressure 139/71 142/68 H 134/68 Pulse Oximetry 100 100 100 07/05/18 07:30 07/05/18 08:00 07/05/18 08:30 Temperature 98.6 F Pulse Rate 82 84 92 H Respiratory Rate 18 18 19 Blood Pressure 128/72 134/70 142/62 H Pulse Oximetry 100 100 100 07/05/18 09:00 07/05/18 09:24 07/05/18 10:00 Temperature Pulse Rate 93 H 80 89 Respiratory Rate 19 21 Blood Pressure 135/68 Pulse Oximetry 100 100 Intake & Output 07/04/18 07/05/18 07/05/18 18:59 06:59 18:59 Intake Total 1763.625 / 0065.279 8088.625 / 1509.625 Output Total 2825 / 2825 1300 / 1300 Balance -1061.375 / -1061.375 209.625 / 209.625 Weight 91.5 kg Intake: IV 1763.625 / 7204.801 1295.625 / 1509.625 Novastan Inj 250 MG In NS Inj 254 / 254 247.5 ML @ Per Protocol IV.CONT TITRATE PRN Rx#:[id number] Diprivan 1000 mg/100 ml Inj 1, 100 / 100 100 / 100 000 mg In 100 ml @ 5 MCG/KG/MIN 2.64 mls/hr IV.CONT TITRATE PRN Rx#:[id number] Sodium Chloride 23.4% Inj 38.5 1009.625 / 9709.745 3608.625 / 1009.625 MEQ In Sterile Water for Inj 1, 000 ML @ 75 mls/hr IV.CONT . [id number] WOLF Rx#:[id number] Maxipime Inj 2,000 MG In NS Inj 100 / 100 200 / 200 100 ML @ 200 mls/hr IV.SIG Q8H WOLF Rx#:[id number] KCl 40 mEq Premix Inj 40 meq In 100 / 100 100 ml @ 25 mls/hr IV.SIG Q2H PRN Rx#:[id number] Flagyl 500 MG Inj 100 ML @ 100 200 / 200 200 / 200 mls/hr IV.SIG Q8H WOLF Rx#: [id number] Output: Stool 1999 / 1999 Urine Amount (Catheter) 825 / 825 1200 / 1200 Indwelling Urethral Catheter 825 / 825 1200 / 1200 Gastric Drainage 100 / 100 Left Nare Nasogastric Tube 100 / 100 Other: Date of Last Bowel Movement 07/04/18 07/04/18 07/04/18 # Bowel Movements 0 Narrative: General appearance: in no acute distress. alert Cardiovascular: S1-S2 audible Respiratory: Decreased breath sounds bilaterally, no wheezing at this time. Abdomen: Firm, distended, hypoactive bowel sounds. Extremities 1+ pitting edema bilateral lower extremities Neuro: Intubated, alert. - Urinary Catheter Management Indwelling Urethral Catheter Cath placed during this visit: yes Reason for continuing: Hourly intake/output Insertion date: 06/27/18 Insertion time: 16:00 Results - Labs CBC & Chem 7: 07/05/18 05:30 07/05/18 05:30 Laboratory Results - last 24 hr 07/04/18 07/04/18 07/04/18 10:48 11:56 15:32 WBC RBC Hgb Hct MCV MCH MCHC RDW Plt Count MPV Prelim Diff (Auto) Neut % (Auto) Lymph % (Auto) [place] % (Auto) Eos % (Auto) Baso % (Auto) Neut # (Auto) Lymph # (Auto) [place] # (Auto) Eos # (Auto) Baso # (Auto) Differential Comment PT 13.1 H INR 1.3 APTT 44.7 H D Fibrinogen 315 Sodium Potassium 3.4 L Chloride Carbon Dioxide Anion Gap BUN Creatinine Estimated GFR POC Glucose 220 H Random Glucose Lactic Acid Calcium Phosphorus Magnesium Total Bilirubin AST ALT Alkaline Phosphatase Total Protein Albumin 07/04/18 07/04/18 07/04/18 15:45 20:39 22:25 WBC RBC Hgb Hct MCV MCH MCHC RDW Plt Count MPV Prelim Diff (Auto) Neut % (Auto) Lymph % (Auto) [place] % (Auto) Eos % (Auto) Baso % (Auto) Neut # (Auto) Lymph # (Auto) [place] # (Auto) Eos # (Auto) Baso # (Auto) Differential Comment PT INR APTT Fibrinogen Sodium Potassium Chloride Carbon Dioxide Anion Gap BUN Creatinine Estimated GFR POC Glucose 195 H 189 H Random Glucose Lactic Acid 0.7 Calcium Phosphorus Magnesium Total Bilirubin AST ALT Alkaline Phosphatase Total Protein Albumin 07/04/18 07/04/18 07/05/18 22:25 23:16 05:29 WBC RBC Hgb Hct MCV MCH MCHC RDW Plt Count MPV Prelim Diff (Auto) Neut % (Auto) Lymph % (Auto) [place] % (Auto) Eos % (Auto) Baso % (Auto) Neut # (Auto) Lymph # (Auto) [place] # (Auto) Eos # (Auto) Baso # (Auto) Differential Comment PT INR APTT Fibrinogen Sodium Potassium 4.0 Chloride Carbon Dioxide Anion Gap BUN Creatinine Estimated GFR POC Glucose 189 H 203 H Random Glucose Lactic Acid Calcium Phosphorus Magnesium Total Bilirubin AST ALT Alkaline Phosphatase Total Protein Albumin 07/05/18 07/05/18 07/05/18 05:30 05:30 05:30 WBC 15.0 H RBC 2.55 L Hgb 7.6 L Hct 23.1 L MCV 90.5 MCH 29.9 MCHC 33.0 RDW 13.2 Plt Count 64 L MPV 11.4 H Prelim Diff (Auto) Slide review pending Neut % (Auto) 95.7 H Lymph % (Auto) 0.8 L [place] % (Auto) 3.5 Eos % (Auto) 0.0 Baso % (Auto) 0.0 Neut # (Auto) 14.3 H Lymph # (Auto) 0.1 L [place] # (Auto) 0.5 Eos # (Auto) 0.0 Baso # (Auto) 0.0 Differential Comment . PT INR APTT 30.5 D Fibrinogen Sodium 150 H Potassium 3.8 Chloride 113 H Carbon Dioxide 31.2 Anion Gap 6 BUN 36 H Creatinine 0.91 Estimated GFR Greater than 89 POC Glucose Random Glucose 205 H Lactic Acid Calcium 7.6 L Phosphorus 1.9 L D Magnesium 2.4 Total Bilirubin 0.5 AST 26 ALT 45 Alkaline Phosphatase 52 Total Protein 5.5 L Albumin 2.6 L 07/05/18 07:36 WBC RBC Hgb Hct MCV MCH MCHC RDW Plt Count MPV Prelim Diff (Auto) Neut % (Auto) Lymph % (Auto) [place] % (Auto) Eos % (Auto) Baso % (Auto) Neut # (Auto) Lymph # (Auto) [place] # (Auto) Eos # (Auto) Baso # (Auto) Differential Comment PT INR APTT Fibrinogen Sodium Potassium Chloride Carbon Dioxide Anion Gap BUN Creatinine Estimated GFR POC Glucose 206 H Random Glucose Lactic Acid Calcium Phosphorus Magnesium Total Bilirubin AST ALT Alkaline Phosphatase Total Protein Albumin Microbiology 07/02/18 22:00 Sputum - Endotracheal Gram Stain - Final 07/02/18 22:00 Sputum - Endotracheal Sputum Culture - Preliminary Heavy growth normal respiratory justyn at 24 hours 07/02/18 05:41 Blood - Peripheral Aerobic Blood Culture - Preliminary No growth in 2 days 07/02/18 05:41 Blood - Peripheral Anaerobic Blood Culture - Preliminary No growth in 2 days 07/02/18 05:47 Blood - Peripheral Aerobic Blood Culture - Preliminary No growth in 2 days 07/02/18 05:47 Blood - Peripheral Anaerobic Blood Culture - Preliminary No growth in 2 days - Imaging Impressions Abdomen X-Ray 07/05/18 07:08 CONCLUSION: No significant interval change with persistent diffuse air-filled distention of the colon suggesting ileus. Chest X-Ray 06/19/18 20:38 CONCLUSION: No evidence of acute cardiopulmonary disease. Abdomen Ultrasound 06/21/18 00:00 CONCLUSION: 1. No ascites is identified within the abdomen. Abdomen X-Ray 06/21/18 00:00 CONCLUSION: No acute findings. Mild constipation. Chest X-Ray 06/23/18 00:00 CONCLUSION: 1. No acute abnormality or significant interval change. Abdomen/Pelvis CT 06/24/18 00:00 CONCLUSION: 1. Benign appearing right adrenal mass. 2. No acute CT findings in the abdomen or pelvis. Chest X-Ray 06/25/18 00:00 CONCLUSION: Suspected mild atelectasis or consolidation at the medial right base. Chest X-Ray 06/26/18 00:00 CONCLUSION: 1. Endotracheal tube is appropriately positioned above the christy. 2. Nasogastric tube traverses the GE junction and is curled in the gastric lumen. 3. Lungs are clear. Abdomen X-Ray 06/26/18 09:21 CONCLUSION: 1. Nonobstructive bowel gas pattern without pneumoperitoneum. 2. Nasogastric tube is curled in the expected location of the gastric body. I believe the portions of the tube identified over the heart shadow is probably projectional as there is no evidence of a significant hiatal hernia on the most recent CT of the abdomen. Chest X-Ray 06/26/18 15:37 CONCLUSION: 1. Lungs remain clear. 2. Interval placement of a right IJ central venous catheter with the tip projecting over the central venous system. No pneumothorax. 3. Endotracheal and nasogastric tubes remain appropriately positioned. Abdomen/Bladder Ultrasound 06/28/18 00:00 CONCLUSION: 1. Echogenic kidneys characteristic of medical renal disease. No hydronephrosis. Bladder decompressed by [place] Chest X-Ray 06/28/18 06:00 CONCLUSION: The lungs are clear. Lines and tubes stable. Chest X-Ray 06/29/18 06:00 CONCLUSION: The lungs are clear. Lines and tubes stable. Venous Doppler Study 07/01/18 00:00 CONCLUSION: 1. The study is negative for bilateral lower extremity deep venous thrombosis. Chest X-Ray 07/01/18 20:41 CONCLUSION: Negative examination. Chest CTA 07/02/18 00:00 CONCLUSION: 1. No pulmonary embolus. 2. Diffuse but basilar predominant bilateral airspace disease. 3. Endotracheal and endobronchial secretions are demonstrated. 4. Moderate emphysema. 5. Left ventricular hypertrophy. Venous Doppler Study 07/02/18 00:00 CONCLUSION: 1. Limited, no evidence for thrombosis. Chest X-Ray 07/02/18 04:04 CONCLUSION: 1. Interim intubation and nasogastric tube placement as above. 2. Mild bibasilar atelectasis has developed. Abdomen/Pelvis CT 07/02/18 04:20 CONCLUSION: Colonic distention most likely representing moderate adynamic ileus. However, distal sigmoid colon is decompressed and a sigmoid stricture is conceivable but considered less likely. Apparent mild proctitis. Clinical surveillance and follow-up CT recommended. Chest X-Ray 07/02/18 14:46 CONCLUSION: Left IJ line in good position. There is no pneumothorax. Abdomen X-Ray 07/04/18 00:01 CONCLUSION: Findings of colonic ileus Chest X-Ray 07/04/18 06:00 CONCLUSION: Cardiomegaly and findings of vascular congestion without overt failure. There has been no significant change when compared to the prior exam. Abdomen X-Ray 07/05/18 07:08 CONCLUSION: No significant interval change with persistent diffuse air-filled distention of the colon suggesting ileus. Assessment and Plan - Plan Abdominal distention/ileus Pt had large liquid BM yesterday but non since, no output from rectal tube. Abdomen firm distended KUB this a.m.No significant interval change with persistent diffuse air-filled distention of the colon suggesting ileus. Abdominal pressure is rising per nurse CT abdomen and pelvis 07/02/18 revealed the following-- : Colonic distention most likely representing moderate adynamic ileus. However, distal sigmoid colon is decompressed and a sigmoid stricture is conceivable but considered less likely. Apparent mild proctitis. Clinical surveillance and follow-up CT recommended. 07/02/2018 colonoscopy diagnostic revealed the following-- Colon the sigmoid was clear then there is significant amount of stool in the descending colon transverse colon and part of the sigmoid consistent with stool impaction, disimpaction with fluid as much as possible. Rectum normal. Plan -N.p.o. -NG to low intermittent wall suction - Pt might need decompressive colonoscopy -Continue bowel regimen -Monitor for stool output - Will add Reglan -Antiemetics as needed -Continue PPI -IV hydration -Supportive care -Further recommendations to follow This patient has been seen by myself and Dr. Keith and this note is written on her behalf
--- NOTE | 2018-07-05 18:16 | P.PNPL ---
Subjective Interval history: 73 YOAA male with COPD, 02 dependent Follows at [facility] Admitted with AMS, COPD exac Remains intubated NGT to suction On Argatroban drip Abd distended Physical Exam Vital signs: Vital Signs 07/04/18 20:00 07/04/18 20:49 07/04/18 21:00 Temperature 98.4 F Pulse Rate 86 88 83 Respiratory Rate 20 20 18 Blood Pressure 126/72 126/63 Pulse Oximetry 100 98 100 07/04/18 21:30 07/04/18 22:00 07/04/18 22:30 Temperature Pulse Rate 80 79 90 Respiratory Rate 17 18 19 Blood Pressure 133/63 147/66 H 130/65 Pulse Oximetry 100 100 100 07/04/18 23:00 07/04/18 23:28 07/04/18 23:30 Temperature Pulse Rate 77 80 75 Respiratory Rate 18 18 18 Blood Pressure 125/64 127/64 Pulse Oximetry 100 100 07/05/18 00:00 07/05/18 00:30 07/05/18 01:00 Temperature 98.2 F Pulse Rate 80 79 73 Respiratory Rate 18 18 18 Blood Pressure 128/63 127/60 136/64 Pulse Oximetry 100 100 100 07/05/18 01:30 07/05/18 02:00 07/05/18 02:30 Temperature Pulse Rate 80 74 83 Respiratory Rate 18 18 19 Blood Pressure 129/66 130/65 133/68 Pulse Oximetry 100 100 100 07/05/18 03:00 07/05/18 03:30 07/05/18 04:00 Temperature 98.5 F Pulse Rate 84 86 79 Respiratory Rate 18 18 18 Blood Pressure 124/66 127/66 127/66 Pulse Oximetry 100 100 99 07/05/18 04:15 07/05/18 04:30 07/05/18 05:00 Temperature Pulse Rate 78 78 79 Respiratory Rate 18 18 18 Blood Pressure 127/66 138/66 Pulse Oximetry 100 100 07/05/18 05:30 07/05/18 06:00 07/05/18 06:30 Temperature Pulse Rate 80 81 80 Respiratory Rate 18 18 18 Blood Pressure 134/68 139/71 142/68 H Pulse Oximetry 100 100 100 07/05/18 07:00 07/05/18 07:30 07/05/18 08:00 Temperature 98.6 F Pulse Rate 90 82 84 Respiratory Rate 18 18 18 Blood Pressure 134/68 128/72 134/70 Pulse Oximetry 100 100 100 07/05/18 08:30 07/05/18 09:00 07/05/18 09:24 Temperature Pulse Rate 92 H 93 H 80 Respiratory Rate 19 19 21 Blood Pressure 142/62 H 135/68 Pulse Oximetry 100 100 100 07/05/18 09:30 07/05/18 10:00 07/05/18 10:30 Temperature Pulse Rate 90 89 85 Respiratory Rate 26 H 21 23 Blood Pressure 125/64 129/65 131/66 Pulse Oximetry 97 95 96 07/05/18 11:00 07/05/18 11:29 07/05/18 11:30 Temperature Pulse Rate 82 81 83 Respiratory Rate 19 20 20 Blood Pressure 139/64 150/64 H Pulse Oximetry 95 96 96 07/05/18 12:00 07/05/18 12:30 07/05/18 13:00 Temperature 98.6 F Pulse Rate 83 83 83 Respiratory Rate 19 15 17 Blood Pressure 135/66 153/64 H 162/63 H Pulse Oximetry 98 95 93 L 07/05/18 13:31 07/05/18 14:00 07/05/18 14:30 Temperature Pulse Rate 84 83 92 H Respiratory Rate 16 12 23 Blood Pressure 119/68 123/70 126/66 Pulse Oximetry 96 96 96 07/05/18 15:00 07/05/18 15:30 07/05/18 15:56 Temperature Pulse Rate 88 89 83 Respiratory Rate 20 21 19 Blood Pressure 122/68 122/70 Pulse Oximetry 98 98 98 07/05/18 16:00 07/05/18 16:03 07/05/18 16:40 Temperature 98.5 F Pulse Rate 90 86 Respiratory Rate 16 27 H 18 Blood Pressure 133/67 133/67 Pulse Oximetry 99 100 100 Intake & Output 07/04/18 07/05/18 07/05/18 18:59 06:59 18:59 Intake Total 1763.625 / 9768.056 9224.625 / 1509.625 800 / 800 Output Total 2825 / 2825 1300 / 1300 Balance -1061.375 / -1061.375 209.625 / 209.625 800 / 800 Weight 91.5 kg Intake: IV 1763.625 / 8413.124 6016.625 / 1509.625 800 / 800 Novastan Inj 250 MG In NS Inj 254 / 254 247.5 ML @ Per Protocol IV.CONT TITRATE PRN Rx#:[id number] Diprivan 1000 mg/100 ml Inj 1, 100 / 100 100 / 100 000 mg In 100 ml @ 5 MCG/KG/MIN 2.64 mls/hr IV.CONT TITRATE PRN Rx#:[id number] Sodium Chloride 23.4% Inj 38.5 1009.625 / 2894.727 9903.625 / 1009.625 600 / 600 MEQ In Sterile Water for Inj 1, 000 ML @ 75 mls/hr IV.CONT . [id number] WOLF Rx#:[id number] Maxipime Inj 2,000 MG In NS Inj 100 / 100 200 / 200 100 / 100 100 ML @ 200 mls/hr IV.SIG Q8H WOLF Rx#:[id number] KCl 40 mEq Premix Inj 40 meq In 100 / 100 100 ml @ 25 mls/hr IV.SIG Q2H PRN Rx#:[id number] Flagyl 500 MG Inj 100 ML @ 100 200 / 200 200 / 200 100 / 100 mls/hr IV.SIG Q8H WOLF Rx#: [id number] Output: Stool 2000 / 2000 Urine Amount (Catheter) 825 / 825 1200 / 1200 Indwelling Urethral Catheter 825 / 825 1200 / 1200 Gastric Drainage 100 / 100 Left Nare Nasogastric Tube 100 / 100 Other: Date of Last Bowel Movement 07/04/18 07/04/18 07/04/18 # Bowel Movements 0 GENERAL: Elderly AA male on vent SKIN: Warm and dry. HEAD: Normocephalic. EYES: No scleral icterus. No injection or drainage. NECK: Supple, trachea midline. No JVD or lymphadenopathy. CARDIOVASCULAR: Regular rate and rhythm without murmurs, gallops, or rubs. RESPIRATORY: Breath sounds equal bilaterally. No accessory muscle use. GASTROINTESTINAL: Abdomen soft, non-tender, nondistended. MUSCULOSKELETAL: No cyanosis, or edema. BACK: Nontender without obvious deformity. No CVA tenderness. - Urinary Catheter Management Indwelling Urethral Catheter Cath placed during this visit: yes Reason for continuing: Hourly intake/output Insertion date: 06/27/18 Insertion time: 16:00 Assessment and Plan - Plan IMPRESSION: Hypercapnoic RF, Reintubated COPD exac AMS improved HTN HIT positive PLAN: Vent support AC 14 Aerosol nebs Cont Abx Supplement 02 Monitor BS Argatroban drip NGT to suction
[2018-07-05 18:26] LABS: Phosphorus 2.2 mg/dL (2.5-4.9)
[2018-07-06] MEDS: Oral Hygiene Kit OROPHARYNG SCH ×4 (00:49→18:19)
[2018-07-06] MEDS: Insulin NovoLIN Regular Correctional Sugar Inj SQ SCH ×6 (00:49→20:44)
[2018-07-06] MEDS: Artificial Tears Opth Drops 15 ML Bottle EACH EYE SCH ×3 (00:49→18:19)
[2018-07-06] MEDS: Propofol 1000 mg/100 ml Inj 1,000 MG/100 ML BOTTLE IV.CONT PRN ×3 (00:52→17:13)
[2018-07-06 03:46] LABS: Baso % (Auto) 0.2 % (0.0-2.0); Hematocrit 24.9 % (39.0-51.0); Lymph # (Auto) 0.2 th/mm3 (1.0-4.8); Lymph % (Auto) 1.2 % (9.0-44.0); Mean Corpuscular Hemoglobin 29.6 pg (27.0-34.0); Mean Corpuscular Volume 92.5 fL (80.0-100.0); Mean Platelet Volume 10.1 fL (7.0-11.0); Mono # (Auto) 0.4 th/mm3 (0.0-0.9); Mono % (Auto) 2.3 % (0.0-8.0); Neut # (Auto) 15.5 th/mm3 (1.8-7.7); Neut % (Auto) 96.3 % (16.0-70.0); Platelet Count 72 th/mm3 (150-450); Red Cell Distribution Width 13.4 % (11.6-17.2); White Blood Count 16.1 th/mm3 (4.0-11.0)
[2018-07-06 04:06] LABS: RBC Morphology Normal (Normal)
[2018-07-06 04:07] LABS: Platelet Morphology Normal (Normal)
[2018-07-06 04:09] LABS: Alanine Aminotransferase 45 U/L (12-78); Albumin 2.7 g/dL (3.4-5.0); Anion Gap 5 meq/L (5-15); Aspartate Aminotransferase 31 U/L (15-37); Blood Urea Nitrogen 34 mg/dL (7-18); Calcium 7.5 mg/dL (8.5-10.1); Carbon Dioxide 33.3 meq/L (21.0-32.0); Chloride 111 meq/L (98-107); Glomerular Filtration Rate Greater Than 89 mL/min (>89); Glucose,Random 213 mg/dL (74-106); Magnesium 2.2 mg/dL (1.5-2.5); Phosphorus 2.7 mg/dL (2.5-4.9); Sodium 149 meq/L (136-145)
[2018-07-06 04:11] LABS: Alkaline Phosphatase 55 U/L (45-117); Total Protein 5.5 g/dL (6.4-8.2)
[2018-07-06] MEDS: Dextrose 5% in Water Inj 1,000 ML IV.CONT SCH ×2 (06:11→08:32)
[2018-07-06] MEDS: Famotidine PF Inj 20 MG/2 ML Vial IV.PUSH SCH ×2 (06:11→18:20)
--- NOTE | 2018-07-06 07:03 | P.PNCC ---
Subjective Subjective Remarks/Hospital Course: Mr. Curry is a 73-year-old -[place]ag[place] male with past medical history significant for COPD on 3 L nasal cannula, hypertension, hyperlipidemia and anxiety who was admitted to the hospitalist service on 06/19/2018 for worsening shortness of breath due to COPD exacerbation. He was treated with IV Solu- Medrol, IV antibiotics, breathing treatments gradually improved. Patient was also complaining about dyspepsia and underwent EGD by GI yesterday. Per report the EGD was normal but patient developed worsening shortness of breath and COPD exacerbation postprocedure, possibly from aspiration after sedated. Two ABGs done yesterday showed hypercapnic respiratory failure second 1 was on BiPAP and this was improved with pH 7.3 with PCO2 of 74. Patient remained on BiPAP overnight however was noticed to be lethargic today a.m., stat ABG showed pH of 7.21 PCO2 110 PO2 88 while on BiPAP. Patient was lethargic intermittently dozing off due to CO2 narcosis. Critical care medicine was consulted and I immediately evaluated the patient. Patient had obviously failed BiPAP I proceeded with endotracheal intubation placed on mechanical ventilation. Postintubation I have ordered single dose of Solu-Medrol 125 mg x1 continue Solu -Medrol 60 every 8, discontinue ceftriaxone and start cefepime 2 g IV every 8 hours continue azithromycin. Add budesonide inhaled, placed on scheduled DuoNeb every 4 hours and as needed. 06/27: Patient was intubated yesterday for severe hypercapnic respiratory failure. Currently remains intubated sedated and intubated remains diminished bilaterally. Heavily sedated for ventilator synchrony 06/28: Urine output significantly improved with fluid resuscitation. Creat down trending now 2 from 2.3, UO >3.3 L. Remains intubated sedated. Will initiate daily sedation vacation and CPAP trials 06/29: More awake today tolerating CPAP trials intermittently follows commands but gets agitated/frustrated fast. Urine output remains excellent creatinine 1.4. However sodium increasing 158 today. Night central service supply distributor had changed fluid to D5 W for free water replacement. Due to hypoglycemia will change to quarter normal saline at 150 mL/h repeat CMP in the afternoon 06/30 Patient was extubated yesterday. Awake 07/01 Patient is lying in bed in NAD. T: 100.5 07/02: Intubated early this morning due to acute hypoxic respiratory failure. Central line placed due to hypotension. Plan for GI perform endoscopic decompression of this large bowel today. Arousable and does follow commands. Placed on argatroban SUBJECTIVE: 07/03: Currently, intubated with borderline blood pressure. Central line placed yesterday due to hypotension. Did not move bowels despite 1 L of fluid from colonoscopy yesterday and multiple laxatives provided. See orders for additional laxatives today. Might need neostigmine. 07/04 Patient remains intubated and sedated with Diprivan. Given Neostigmine last night. KUB this morning showed colonic ileus. Afebrile. On Argatroban. 07/05 No events overnight, sedated with Diprivan and intubated. Off Argatroban. 07/06 Patient remains intubated and sedated. Afebrile. Objective Vital Signs / I&O: Vital Signs 07/05/18 08:00 07/05/18 08:30 07/05/18 09:00 Temperature 98.6 F Pulse Rate 84 92 H 93 H Respiratory Rate 18 19 19 Blood Pressure 134/70 142/62 H 135/68 Pulse Oximetry 100 100 100 07/05/18 09:24 07/05/18 09:30 07/05/18 10:00 Temperature Pulse Rate 80 90 89 Respiratory Rate 21 26 H 21 Blood Pressure 125/64 129/65 Pulse Oximetry 100 97 95 07/05/18 10:30 07/05/18 11:00 07/05/18 11:29 Temperature Pulse Rate 85 82 81 Respiratory Rate 23 19 20 Blood Pressure 131/66 139/64 Pulse Oximetry 96 95 96 07/05/18 11:30 07/05/18 12:00 07/05/18 12:30 Temperature 98.6 F Pulse Rate 83 83 83 Respiratory Rate 20 19 15 Blood Pressure 150/64 H 135/66 153/64 H Pulse Oximetry 96 98 95 07/05/18 13:00 07/05/18 13:31 07/05/18 14:00 Temperature Pulse Rate 83 84 83 Respiratory Rate 17 16 12 Blood Pressure 162/63 H 119/68 123/70 Pulse Oximetry 93 L 96 96 07/05/18 14:30 07/05/18 15:00 07/05/18 15:30 Temperature Pulse Rate 92 H 88 89 Respiratory Rate 23 20 21 Blood Pressure 126/66 122/68 122/70 Pulse Oximetry 96 98 98 07/05/18 15:56 07/05/18 16:00 07/05/18 16:03 Temperature 98.5 F Pulse Rate 83 90 86 Respiratory Rate 19 16 27 H Blood Pressure 133/67 133/67 Pulse Oximetry 98 99 100 07/05/18 16:30 07/05/18 16:40 07/05/18 17:00 Temperature Pulse Rate 89 84 Respiratory Rate 17 18 18 Blood Pressure 136/63 138/69 Pulse Oximetry 99 100 100 07/05/18 17:30 07/05/18 18:00 07/05/18 18:30 Temperature Pulse Rate 82 80 88 Respiratory Rate 18 18 19 Blood Pressure 123/62 124/69 121/66 Pulse Oximetry 100 100 100 07/05/18 19:00 07/05/18 19:31 07/05/18 20:00 Temperature Pulse Rate 93 H 93 H 91 H Respiratory Rate 24 20 21 Blood Pressure 128/68 137/72 125/86 Pulse Oximetry 100 100 100 07/05/18 20:31 07/05/18 20:56 07/05/18 21:00 Temperature Pulse Rate 100 H 100 H 95 H Respiratory Rate 22 21 18 Blood Pressure 142/79 H 135/78 Pulse Oximetry 98 100 100 07/05/18 21:30 07/05/18 22:00 07/05/18 22:30 Temperature Pulse Rate 86 88 85 Respiratory Rate 19 18 18 Blood Pressure 133/84 128/74 135/73 Pulse Oximetry 100 100 100 07/05/18 23:00 07/05/18 23:30 07/05/18 23:56 Temperature 99.0 F Pulse Rate 82 81 82 Respiratory Rate 18 18 18 Blood Pressure 123/71 134/77 Pulse Oximetry 100 100 07/06/18 00:00 07/06/18 00:30 07/06/18 01:19 EDT Temperature 99.0 F Pulse Rate 81 87 Respiratory Rate 18 18 18 Blood Pressure 124/76 128/75 Pulse Oximetry 100 100 100 07/06/18 01:00 EST 07/06/18 01:30 EST 07/06/18 02:00 Temperature Pulse Rate 83 81 81 Respiratory Rate 18 18 18 Blood Pressure 140/80 130/81 129/78 Pulse Oximetry 100 100 100 07/06/18 02:30 07/06/18 03:00 07/06/18 03:30 Temperature Pulse Rate 81 81 81 Respiratory Rate 18 18 18 Blood Pressure 128/77 132/78 124/75 Pulse Oximetry 100 100 100 07/06/18 03:36 07/06/18 04:00 07/06/18 04:37 Temperature 98.9 F Pulse Rate 84 81 Respiratory Rate 18 20 18 Blood Pressure 116/74 Pulse Oximetry 100 100 Intake & Output 07/05/18 07/05/18 07/06/18 06:59 18:59 05:59 Intake Total 1509.625 / 1509.625 800 / 800 1400 / 300 Output Total 1300 / 1300 1050 / 1050 1025 Balance 209.625 / 209.625 -250 / -250 375 / 300 Weight 91.5 kg 92.5 kg Intake: IV 1509.625 / 1509.625 800 / 800 1400 / 300 D5W Inj 1,000 ML @ 42 mls/hr IV 1000 .CONT .[id number] WOLF Rx#:[id number] Diprivan 1000 mg/100 ml Inj 1, 100 / 100 200 / 100 000 mg In 100 ml @ 5 MCG/KG/MIN 2.64 mls/hr IV.CONT TITRATE PRN Rx#:[id number] Sodium Chloride 23.4% Inj 38.5 1009.625 / 1009.625 600 / 600 MEQ In Sterile Water for Inj 1, 000 ML @ 75 mls/hr IV.CONT . [id number] WOLF Rx#:[id number] Maxipime Inj 2,000 MG In NS Inj 200 / 200 100 / 100 100 / 100 100 ML @ 200 mls/hr IV.SIG Q8H WOLF Rx#:[id number] Flagyl 500 MG Inj 100 ML @ 100 200 / 200 100 / 100 100 / 100 mls/hr IV.SIG Q8H WOLF Rx#: [id number] Output: Urine Amount (Catheter) 1200 / 1200 1050 / 1050 1025 Indwelling Urethral Catheter 1200 / 1200 1050 / 1050 1025 Gastric Drainage 100 / 100 Left Nare Nasogastric Tube 100 / 100 Other: Date of Last Bowel Movement 07/04/18 07/04/18 07/04/18 # Bowel Movements 0 Result Diagrams: 07/06/18 03:29 07/06/18 03:29 Other Results: Laboratory Results - last 12 hr 07/05/18 07/05/18 07/06/18 21:32 23:59 03:29 WBC 16.1 H RBC 2.70 L Hgb 8.0 L Hct 24.9 L MCV 92.5 MCH 29.6 MCHC 32.0 RDW 13.4 Plt Count 72 L MPV 10.1 Prelim Diff (Auto) Slide review pending Neut % (Auto) 96.3 H Lymph % (Auto) 1.2 L Walsh % (Auto) 2.3 Eos % (Auto) 0.0 Baso % (Auto) 0.2 Neut # (Auto) 15.5 H Lymph # (Auto) 0.2 L Walsh # (Auto) 0.4 Eos # (Auto) 0.0 Baso # (Auto) 0.0 WBC Differential . Diff Scan Auto diff confirmed Differential Comment . Platelet Estimate Low L Platelet Morphology Normal RBC Morphology Normal Sodium Potassium Chloride Carbon Dioxide Anion Gap BUN Creatinine Estimated GFR POC Glucose 201 H 184 H Random Glucose Calcium Phosphorus Magnesium Total Bilirubin AST ALT Alkaline Phosphatase Total Protein Albumin 07/06/18 07/06/18 03:29 03:29 WBC RBC Hgb Hct MCV MCH MCHC RDW Plt Count MPV Prelim Diff (Auto) Neut % (Auto) Lymph % (Auto) Walsh % (Auto) Eos % (Auto) Baso % (Auto) Neut # (Auto) Lymph # (Auto) Walsh # (Auto) Eos # (Auto) Baso # (Auto) WBC Differential Diff Scan Differential Comment Platelet Estimate Platelet Morphology RBC Morphology Sodium 149 H Potassium 4.0 Chloride 111 H Carbon Dioxide 33.3 H Anion Gap 5 BUN 34 H Creatinine 0.94 Estimated GFR Greater than 89 POC Glucose 220 H Random Glucose 213 H Calcium 7.5 L Phosphorus 2.7 Magnesium 2.2 Total Bilirubin 0.5 AST 31 ALT 45 Alkaline Phosphatase 55 Total Protein 5.5 L Albumin 2.7 L Imaging: Abdomen Ultrasound 06/21/18 00:00 CONCLUSION: 1. No ascites is identified within the abdomen. Abdomen/Bladder Ultrasound 06/28/18 00:00 CONCLUSION: 1. Echogenic kidneys characteristic of medical renal disease. No hydronephrosis. Bladder decompressed by [facility] Chest CTA 07/02/18 00:00 CONCLUSION: 1. No pulmonary embolus. 2. Diffuse but basilar predominant bilateral airspace disease. 3. Endotracheal and endobronchial secretions are demonstrated. 4. Moderate emphysema. 5. Left ventricular hypertrophy. Venous Doppler Study 07/02/18 00:00 CONCLUSION: 1. Limited, no evidence for thrombosis. Abdomen/Pelvis CT 07/02/18 04:20 CONCLUSION: Colonic distention most likely representing moderate adynamic ileus. However, distal sigmoid colon is decompressed and a sigmoid stricture is conceivable but considered less likely. Apparent mild proctitis. Clinical surveillance and follow-up CT recommended. Chest X-Ray 07/04/18 06:00 CONCLUSION: Cardiomegaly and findings of vascular congestion without overt failure. There has been no significant change when compared to the prior exam. Abdomen X-Ray 07/05/18 07:08 CONCLUSION: No significant interval change with persistent diffuse air-filled distention of the colon suggesting ileus. Objective Remarks: GENERAL: Patient is 73 yo lying in bed in NAD orotracheally intubated SKIN: Warm and dry. HEAD: Normocephalic. EYES: No scleral icterus. No injection or drainage. NECK: Supple, trachea midline. No JVD or lymphadenopathy. CARDIOVASCULAR: Regular rate and rhythm without murmurs, gallops, or rubs. RESPIRATORY: Distant breath sounds. Few crackles patient bases. Clears with suctioning. GASTROINTESTINAL: Abdomen distended. Protuberant. Hypoactive bowel sounds appreciated. MUSCULOSKELETAL: No significant peripheral edema. Neuro: Arousable the ventilator and follows command. Assessment and Plan - Assessment and Plan Plan: ASSESSMENT: Acute hypercapnic respiratory failure Acute COPD exacerbation Altered mental status due to CO2 narcosis Acute kidney injury/failure Hypertension Leukocytosis Hyperglycemia COPD Hypernatremia Colonic ileus PLAN: NEURO: -Monitor neuro status, -On propofol drip for sedation/analgesia while intubated. Goal of RASS of -2. Daily sedation vacation RESP: -Continue with vent support keep sats >92% -Extubated 06/29. Reintubated 07/02 -DuoNeb every 4 hours scheduled and as needed -IV Solu-Medrol 40 mg Q12 -Inhaled budesonide -Continue cefepime -Spontaneous breathing trials as alonso. CV: - Monitor HR and BP keep MAP>65mmHg -Continue with BP meds, Cardizem 60mg Q6,, Hydralazine 50mg TID with holding parameters GI: -N.p.o. status. NGT to LIWS -IV famotidine -GI for decompression 07/02. On docusate sodium/senna 1 tablet twice daily, lactulose 30 cc 4 times daily, GoLYTELY 2 L x1 now. Mineral oil 15 mL x1 now. -KUB 07/04- colonic ileus, -KUB 07/05: No significant interval change with persistent diffuse air-filled distention of the colon suggesting ileus. -GI follow up discussed with Dr. Keith for decompressive colonoscopy, place rectal tube to suction and give Neostigmine x1 dose. FEN/: -Monitor renal function, I/O's, electrolytes replacement per protocol. - IVF D5W@42ml/hr -free water 250ml Q6. Monitor sodium level. ID: -Antibiotics with cefepime and completed azithromycin. Monitor for signs of infections ( Fever, WBC) -Sputum cultures-neg to date -07/02 BC: NGTS, sputum cx 07/02:normal resp justyn HEME: -Monitor CBC, coags, Hep PLT is positive. ANNMARIE negative. Hematology is following. Off argatroban drip ENDO: -Electrolyte replacement per protocol -Sliding scale insulin medium scale PROPH: -Bilateral lower extremity SCDs. PPI , -Doppler US LE negative DVT LINES: -Utilize peripheral IVs, Level 3
[2018-07-06] MEDS: Chlorhexidine 0.12% Oral Kit 15 ML UDC OROPHARYNG SCH ×2 (08:32→20:44)
[2018-07-06] MEDS: Simethicone 80 MG Chew Tablet PO SCH ×4 (08:33→20:46)
[2018-07-06] MEDS: Senna/Docusate Sodium 8.6/50 MG Tablet PO SCH ×2 (08:33→20:46)
[2018-07-06] MEDS: dilTIAZem 60 MG Tablet PO SCH ×4 (08:33→20:45)
[2018-07-06] MEDS: MethylPREDNISolone Sod Succinate Inj 40 MG/ML Vial IV.PUSH SCH ×2 (08:33→20:46)
[2018-07-06] MEDS: hydrALAZINE 50 MG Tablet PO SCH ×3 (08:33→18:19)
[2018-07-06] MEDS: Bisacodyl 10 MG Supp RECTAL SCH (08:34)
[2018-07-06] MEDS: Beneprotein Powder Packet G-TUBE SCH ×3 (08:34→18:19)
--- NOTE | 2018-07-06 14:14 | P.PNGI ---
Subjective Interval history: Pt is sedated intubated, abd still distended, rectal tube Dced not much out put. Intraabdominal pressure is rising. Had small BM during removing rectal tube. <Shelley Lopez - Last Filed: 07/06/18 14:31> Physical Exam Vital signs: Vital Signs 07/05/18 15:30 07/05/18 15:56 07/05/18 16:00 Temperature 98.5 F Pulse Rate 89 83 90 Respiratory Rate 21 19 16 Blood Pressure 122/70 133/67 Pulse Oximetry 98 98 99 07/05/18 16:03 07/05/18 16:30 07/05/18 16:40 Temperature Pulse Rate 86 89 Respiratory Rate 27 H 17 18 Blood Pressure 133/67 136/63 Pulse Oximetry 100 99 100 07/05/18 17:00 07/05/18 17:30 07/05/18 18:00 Temperature Pulse Rate 84 82 80 Respiratory Rate 18 18 18 Blood Pressure 138/69 123/62 124/69 Pulse Oximetry 100 100 100 07/05/18 18:30 07/05/18 19:00 07/05/18 19:31 Temperature Pulse Rate 88 93 H 93 H Respiratory Rate 19 24 20 Blood Pressure 121/66 128/68 137/72 Pulse Oximetry 100 100 100 07/05/18 20:00 07/05/18 20:31 07/05/18 20:56 Temperature Pulse Rate 91 H 100 H 100 H Respiratory Rate 21 22 21 Blood Pressure 125/86 142/79 H Pulse Oximetry 100 98 100 07/05/18 21:00 07/05/18 21:30 07/05/18 22:00 Temperature Pulse Rate 95 H 86 88 Respiratory Rate 18 19 18 Blood Pressure 135/78 133/84 128/74 Pulse Oximetry 100 100 100 07/05/18 22:30 07/05/18 23:00 07/05/18 23:30 Temperature 99.0 F Pulse Rate 85 82 81 Respiratory Rate 18 18 18 Blood Pressure 135/73 123/71 134/77 Pulse Oximetry 100 100 100 07/05/18 23:56 07/06/18 00:00 07/06/18 00:30 Temperature 99.0 F Pulse Rate 82 81 87 Respiratory Rate 18 18 18 Blood Pressure 124/76 128/75 Pulse Oximetry 100 100 07/06/18 01:19 EDT 07/06/18 01:00 EST 07/06/18 01:30 EST Temperature Pulse Rate 83 81 Respiratory Rate 18 18 18 Blood Pressure 140/80 130/81 Pulse Oximetry 100 100 100 07/06/18 02:00 07/06/18 02:30 07/06/18 03:00 Temperature Pulse Rate 81 81 81 Respiratory Rate 18 18 18 Blood Pressure 129/78 128/77 132/78 Pulse Oximetry 100 100 100 07/06/18 03:30 07/06/18 03:36 07/06/18 04:00 Temperature 98.9 F Pulse Rate 81 84 81 Respiratory Rate 18 18 20 Blood Pressure 124/75 116/74 Pulse Oximetry 100 100 07/06/18 04:37 07/06/18 05:00 07/06/18 06:00 Temperature Pulse Rate 79 80 Respiratory Rate 18 18 18 Blood Pressure 133/76 128/81 Pulse Oximetry 100 100 100 07/06/18 07:00 07/06/18 08:00 07/06/18 08:19 Temperature 98.0 F Pulse Rate 81 91 H Respiratory Rate 18 20 Blood Pressure 136/80 137/82 145/87 H Pulse Oximetry 100 96 07/06/18 09:00 07/06/18 09:13 07/06/18 09:15 Temperature Pulse Rate 96 H 96 H Respiratory Rate 20 20 20 Blood Pressure 128/74 Pulse Oximetry 96 97 07/06/18 10:00 07/06/18 12:00 07/06/18 13:26 Temperature Pulse Rate 88 89 Respiratory Rate 19 21 Blood Pressure 151/76 H Pulse Oximetry 96 95 Intake & Output 07/05/18 07/06/18 07/06/18 19:59 06:59 18:59 Intake Total 100 / 100 Output Total Balance 100 / 100 Weight Intake: IV 100 / 100 D5W Inj 1,000 ML @ 42 mls/hr IV .CONT .[id number] [facility] Rx#:[id number] Diprivan 1000 mg/100 ml Inj 1, 000 mg In 100 ml @ 5 MCG/KG/MIN 2.64 mls/hr IV.CONT TITRATE PRN Rx#:[id number] Maxipime Inj 2,000 MG In NS Inj 100 ML @ 200 mls/hr IV.SIG Q8H [facility] Rx#:[id number] Flagyl 500 MG Inj 100 ML @ 100 100 / 100 mls/hr IV.SIG Q8H [facility] OF [facility] Rx#: [id number] Output: Urine Amount (Catheter) Indwelling Urethral Catheter Other: Date of Last Bowel Movement 07/04/18 - Constitutional chronically ill appearing - Routine HEENT Exam Head: Present: normocephalic - Routine Respiratory Exam Present: CTA bilaterally - Routine Cardiovascular Exam Present: RRR - Routine Abdominal Exam Present: distended - Routine Skin Exam Present: intact, dry - Routine Neurological Exam Sedated on a vent - Urinary Catheter Management Indwelling Urethral Catheter Cath placed during this visit: yes Reason for continuing: Hourly intake/output Insertion date: 06/27/18 Insertion time: 16:00 <Shelley Lopez - Last Filed: 07/06/18 14:31> Vital signs: Vital Signs 07/05/18 20:56 07/05/18 21:00 07/05/18 21:30 Temperature Pulse Rate 100 H 95 H 86 Respiratory Rate 21 18 19 Blood Pressure 135/78 133/84 Pulse Oximetry 100 100 100 07/05/18 22:00 07/05/18 22:30 07/05/18 23:00 Temperature Pulse Rate 88 85 82 Respiratory Rate 18 18 18 Blood Pressure 128/74 135/73 123/71 Pulse Oximetry 100 100 100 07/05/18 23:30 07/05/18 23:56 07/06/18 00:00 Temperature 99.0 F 99.0 F Pulse Rate 81 82 81 Respiratory Rate 18 18 18 Blood Pressure 134/77 124/76 Pulse Oximetry 100 100 07/06/18 00:30 07/06/18 01:19 EDT 07/06/18 01:00 EST Temperature Pulse Rate 87 83 Respiratory Rate 18 18 18 Blood Pressure 128/75 140/80 Pulse Oximetry 100 100 100 07/06/18 01:30 EST 07/06/18 02:00 07/06/18 02:30 Temperature Pulse Rate 81 81 81 Respiratory Rate 18 18 18 Blood Pressure 130/81 129/78 128/77 Pulse Oximetry 100 100 100 07/06/18 03:00 07/06/18 03:30 07/06/18 03:36 Temperature Pulse Rate 81 81 84 Respiratory Rate 18 18 18 Blood Pressure 132/78 124/75 Pulse Oximetry 100 100 07/06/18 04:00 07/06/18 04:37 07/06/18 05:00 Temperature 98.9 F Pulse Rate 81 79 Respiratory Rate 20 18 18 Blood Pressure 116/74 133/76 Pulse Oximetry 100 100 100 07/06/18 06:00 07/06/18 07:00 07/06/18 08:00 Temperature 98.0 F Pulse Rate 80 81 91 H Respiratory Rate 18 18 20 Blood Pressure 128/81 136/80 137/82 Pulse Oximetry 100 100 96 07/06/18 08:19 07/06/18 09:00 07/06/18 09:13 Temperature Pulse Rate 96 H Respiratory Rate 20 20 Blood Pressure 145/87 H 128/74 Pulse Oximetry 96 97 07/06/18 09:15 07/06/18 10:00 07/06/18 12:00 Temperature Pulse Rate 96 H 88 89 Respiratory Rate 20 19 Blood Pressure 151/76 H Pulse Oximetry 96 07/06/18 13:26 07/06/18 14:00 07/06/18 15:38 Temperature Pulse Rate 88 88 Respiratory Rate 21 18 Blood Pressure Pulse Oximetry 95 07/06/18 15:39 07/06/18 16:00 07/06/18 17:43 Temperature Pulse Rate 72 77 Respiratory Rate 18 18 Blood Pressure 125/60 Pulse Oximetry 100 100 07/06/18 17:45 07/06/18 17:48 07/06/18 17:50 Temperature Pulse Rate 82 78 82 Respiratory Rate 18 18 18 Blood Pressure 133/59 L 126/60 135/63 Pulse Oximetry 100 100 100 07/06/18 17:53 07/06/18 17:55 07/06/18 17:58 Temperature Pulse Rate 82 79 79 Respiratory Rate 18 18 18 Blood Pressure 130/62 120/58 L 127/61 Pulse Oximetry 100 100 100 07/06/18 18:00 07/06/18 18:03 07/06/18 18:05 Temperature Pulse Rate 78 76 80 Respiratory Rate 18 18 18 Blood Pressure 130/62 123/58 L 121/56 L Pulse Oximetry 100 100 100 07/06/18 18:07 07/06/18 18:10 07/06/18 18:12 Temperature Pulse Rate 73 74 78 Respiratory Rate 18 18 19 Blood Pressure 118/58 L 117/56 L 115/59 L Pulse Oximetry 100 100 100 07/06/18 18:15 07/06/18 18:18 11/04/18 18:20 Temperature Pulse Rate 77 76 79 Respiratory Rate 18 18 18 Blood Pressure 115/58 L 118/62 117/59 L Pulse Oximetry 100 100 100 07/06/18 18:23 07/06/18 18:25 07/06/18 18:28 Temperature Pulse Rate 80 79 90 Respiratory Rate 18 18 11 L Blood Pressure 119/60 126/60 117/58 L Pulse Oximetry 100 100 100 07/06/18 18:30 07/06/18 18:33 07/06/18 18:35 Temperature Pulse Rate 85 76 83 Respiratory Rate 12 18 18 Blood Pressure 128/66 130/65 131/61 Pulse Oximetry 100 100 100 07/06/18 18:38 07/06/18 18:40 07/06/18 18:42 Temperature Pulse Rate 78 78 82 Respiratory Rate 18 18 18 Blood Pressure 129/61 132/61 135/62 Pulse Oximetry 100 100 100 Intake & Output 07/06/18 07/06/18 07/07/18 06:59 18:59 06:59 Intake Total 400 / 400 Output Total 1160 / 1160 Balance -760 / -760 Weight Intake: IV 200 / 200 D5W Inj 1,000 ML @ 42 mls/hr IV .CONT .[id number] [facility] Rx#:[id number] Diprivan 1000 mg/100 ml Inj 1, 100 / 100 000 mg In 100 ml @ 5 MCG/KG/MIN 2.64 mls/hr IV.CONT TITRATE PRN Rx#:[id number] Maxipime Inj 2,000 MG In NS Inj 100 ML @ 200 mls/hr IV.SIG Q8H [facility] Rx#:[id number] Flagyl 500 MG Inj 100 ML @ 100 100 / 100 mls/hr IV.SIG Q8H [facility] Rx#: [id number] Water Bolus Amount 200 / 200 Output: Urine Amount (Catheter) 960 / 960 Indwelling Urethral Catheter 960 / 960 Gastric Drainage 200 / 200 Left Nare Nasogastric Tube 200 / 200 Other: Date of Last Bowel Movement 07/06/18 # Incontinent Bowel Movements 1 - Urinary Catheter Management Indwelling Urethral Catheter Cath placed during this visit: no <Ann Keith - Last Filed: 07/06/18 19:33> Results - Labs CBC & Chem 7: 07/06/18 03:29 07/06/18 03:29 Laboratory Results - last 24 hr 07/05/18 07/05/18 07/05/18 16:01 17:12 21:32 WBC RBC Hgb Hct MCV MCH MCHC RDW Plt Count MPV Prelim Diff (Auto) Neut % (Auto) Lymph % (Auto) [place] % (Auto) Eos % (Auto) Baso % (Auto) Neut # (Auto) Lymph # (Auto) [place] # (Auto) Eos # (Auto) Baso # (Auto) WBC Differential Diff Scan Differential Comment Platelet Estimate Platelet Morphology RBC Morphology Sodium Potassium 4.0 Chloride Carbon Dioxide Anion Gap BUN Creatinine Estimated GFR POC Glucose 198 H 201 H Random Glucose Calcium Phosphorus 2.2 L Magnesium Total Bilirubin AST ALT Alkaline Phosphatase Total Protein Albumin 07/05/18 07/06/18 07/06/18 23:59 03:29 03:29 WBC 16.1 H RBC 2.70 L Hgb 8.0 L Hct 24.9 L MCV 92.5 MCH 29.6 MCHC 32.0 RDW 13.4 Plt Count 72 L MPV 10.1 Prelim Diff (Auto) Slide review pending Neut % (Auto) 96.3 H Lymph % (Auto) 1.2 L [place] % (Auto) 2.3 Eos % (Auto) 0.0 Baso % (Auto) 0.2 Neut # (Auto) 15.5 H Lymph # (Auto) 0.2 L [place] # (Auto) 0.4 Eos # (Auto) 0.0 Baso # (Auto) 0.0 WBC Differential . Diff Scan Auto diff confirmed Differential Comment . Platelet Estimate Low L Platelet Morphology Normal RBC Morphology Normal Sodium 149 H Potassium 4.0 Chloride 111 H Carbon Dioxide 33.3 H Anion Gap 5 BUN 34 H Creatinine 0.94 Estimated GFR Greater than 89 POC Glucose 184 H Random Glucose 213 H Calcium 7.5 L Phosphorus 2.7 Magnesium 2.2 Total Bilirubin 0.5 AST 31 ALT 45 Alkaline Phosphatase 55 Total Protein 5.5 L Albumin 2.7 L 07/06/18 07/06/18 07/06/18 03:29 08:12 11:30 WBC RBC Hgb Hct MCV MCH MCHC RDW Plt Count MPV Prelim Diff (Auto) Neut % (Auto) Lymph % (Auto) [place] % (Auto) Eos % (Auto) Baso % (Auto) Neut # (Auto) Lymph # (Auto) [place] # (Auto) Eos # (Auto) Baso # (Auto) WBC Differential Diff Scan Differential Comment Platelet Estimate Platelet Morphology RBC Morphology Sodium Potassium Chloride Carbon Dioxide Anion Gap BUN Creatinine Estimated GFR POC Glucose 220 H 214 H 241 H Random Glucose Calcium Phosphorus Magnesium Total Bilirubin AST ALT Alkaline Phosphatase Total Protein Albumin Microbiology 07/02/18 05:41 Blood - Peripheral Aerobic Blood Culture - Preliminary No growth in 4 days 07/02/18 05:41 Blood - Peripheral Anaerobic Blood Culture - Preliminary No growth in 4 days 07/02/18 05:47 Blood - Peripheral Aerobic Blood Culture - Preliminary No growth in 4 days 07/02/18 05:47 Blood - Peripheral Anaerobic Blood Culture - Preliminary No growth in 4 days 07/02/18 22:00 Sputum - Endotracheal Gram Stain - Final 07/02/18 22:00 Sputum - Endotracheal Sputum Culture - Final Heavy growth normal respiratory justyn <Shelley Lopez - Last Filed: 07/06/18 14:31> - Labs CBC & Chem 7: 07/06/18 03:29 07/06/18 03:29 Laboratory Results - last 24 hr 07/05/18 07/05/18 07/06/18 21:32 23:59 03:29 WBC 16.1 H RBC 2.70 L Hgb 8.0 L Hct 24.9 L MCV 92.5 MCH 29.6 MCHC 32.0 RDW 13.4 Plt Count 72 L MPV 10.1 Prelim Diff (Auto) Slide review pending Neut % (Auto) 96.3 H Lymph % (Auto) 1.2 L [place] % (Auto) 2.3 Eos % (Auto) 0.0 Baso % (Auto) 0.2 Neut # (Auto) 15.5 H Lymph # (Auto) 0.2 L [place] # (Auto) 0.4 Eos # (Auto) 0.0 Baso # (Auto) 0.0 WBC Differential . Diff Scan Auto diff confirmed Differential Comment . Platelet Estimate Low L Platelet Morphology Normal RBC Morphology Normal Sodium Potassium Chloride Carbon Dioxide Anion Gap BUN Creatinine Estimated GFR POC Glucose 201 H 184 H Random Glucose Calcium Phosphorus Magnesium Total Bilirubin AST ALT Alkaline Phosphatase Total Protein Albumin 07/06/18 07/06/18 07/06/18 03:29 03:29 08:12 WBC RBC Hgb Hct MCV MCH MCHC RDW Plt Count MPV Prelim Diff (Auto) Neut % (Auto) Lymph % (Auto) [place] % (Auto) Eos % (Auto) Baso % (Auto) Neut # (Auto) Lymph # (Auto) [place] # (Auto) Eos # (Auto) Baso # (Auto) WBC Differential Diff Scan Differential Comment Platelet Estimate Platelet Morphology RBC Morphology Sodium 149 H Potassium 4.0 Chloride 111 H Carbon Dioxide 33.3 H Anion Gap 5 BUN 34 H Creatinine 0.94 Estimated GFR Greater than 89 POC Glucose 220 H 214 H Random Glucose 213 H Calcium 7.5 L Phosphorus 2.7 Magnesium 2.2 Total Bilirubin 0.5 AST 31 ALT 45 Alkaline Phosphatase 55 Total Protein 5.5 L Albumin 2.7 L 07/06/18 07/06/18 11:30 16:58 WBC RBC Hgb Hct MCV MCH MCHC RDW Plt Count MPV Prelim Diff (Auto) Neut % (Auto) Lymph % (Auto) [place] % (Auto) Eos % (Auto) Baso % (Auto) Neut # (Auto) Lymph # (Auto) [place] # (Auto) Eos # (Auto) Baso # (Auto) WBC Differential Diff Scan Differential Comment Platelet Estimate Platelet Morphology RBC Morphology Sodium Potassium Chloride Carbon Dioxide Anion Gap BUN Creatinine Estimated GFR POC Glucose 241 H 200 H Random Glucose Calcium Phosphorus Magnesium Total Bilirubin AST ALT Alkaline Phosphatase Total Protein Albumin Microbiology 07/02/18 05:41 Blood - Peripheral Aerobic Blood Culture - Preliminary No growth in 4 days 07/02/18 05:41 Blood - Peripheral Anaerobic Blood Culture - Preliminary No growth in 4 days 07/02/18 05:47 Blood - Peripheral Aerobic Blood Culture - Preliminary No growth in 4 days 07/02/18 05:47 Blood - Peripheral Anaerobic Blood Culture - Preliminary No growth in 4 days <Ann Keith - Last Filed: 07/06/18 19:33> Assessment and Plan - Plan Abdominal distention/ileus No output from rectal tube, this was Dced, intraabdominal pressure in rising . Abdomen firm distended KUB 07/05 No significant interval change with persistent diffuse air-filled distention of the colon suggesting ileus. Abdominal pressure is rising per nurse CT abdomen and pelvis 07/02/18 revealed the following-- : Colonic distention most likely representing moderate adynamic ileus. However, distal sigmoid colon is decompressed and a sigmoid stricture is conceivable but considered less likely. Apparent mild proctitis. Clinical surveillance and follow-up CT recommended. 07/02/2018 colonoscopy diagnostic revealed the following-- Colon the sigmoid was clear then there is significant amount of stool in the descending colon transverse colon and part of the sigmoid consistent with stool impaction, disimpaction with fluid as much as possible. Rectum normal. Plan -N.p.o. -NG to low intermittent wall suction -decompressive colonoscopy within the next hr -Continue bowel regimen -KUB in the am -Cont. Reglan -Antiemetics as needed -Continue PPI -IV hydration -Supportive care -Further recommendations to follow This patient has been seen by myself and Dr. Keith and this note is written on her behalf <Shelley Lopez - Last Filed: 07/06/18 14:31> - Attending Attestation seen, examined agree with above <Ann Keith - Last Filed: 07/06/18 19:33>
[2018-07-06] MEDS ORDERED: fentaNYL Citrate Inj 100 MCG/2 ML Ampul ONE (14:36)
[2018-07-06] MEDS ORDERED: fentaNYL 10 mcg/mL Premix Drip 2,500 MCG/250 ML BAG IV.SIG PRN (14:36)
--- NOTE | 2018-07-06 14:51 | GIPROC ---
[facility] [address] [facility]. [facility], [address] COLONOSCOPY PROCEDURE REPORT EXAM DATE: 07/06/2018 PATIENT NAME: Fan Curry MR #: [id number] BIRTHDATE: 1945 ENDOSCOPIST: Ann Keith MD ORDER #: [id number] BOAT MASTER: Ari Viera and Alison Pappas STATUS: inpatient INDICATIONS: The patient is a 73 yr old male here for a colonoscopy due to colonic ileus, abdominal distension PROCEDURE PERFORMED: colonoscopy with decompression MEDICATIONS: None and Per Anesthesia. PREP QUALITY: poor PREP TYPE:Other: ESTIMATED BLOOD LOSS: None CONSENT: The patient understands the risks and benefits of the procedure and understands that these risks include, but are not limited to: sedation, allergic reaction, infection, perforation and/or bleeding. Alternative means of evaluation and treatment include, among others: physical exam, x-rays, and/or surgical intervention. The patient elects to proceed with this endoscopic procedure. medical equipment was checked for proper function. Hand hygiene and appropriate measures for infection prevention was taken. After the risks, benefits and alternatives of the procedure were thoroughly explained, Informed consent was verified, confirmed and timeout was successfully executed by the treatment team. A digital exam revealed hemorrhoids The Pentax [id number] endoscope was introduced through the anus and advanced to the cecum, which was identified by both the appendix and ileocecal valve. The instrument was then slowly withdrawn as the colon was fully examined. COLON FINDINGS: Stool in cecum, large amount of water flush, stool suctioned marked decompression rectal tube left in place. Retroflexed views revealed internal hemorrhoids and Retroflexed views revealed small internal hemorrhoids The scope was then completely withdrawn from the patient and the procedure terminated. ADVERSE EVENTS: There were no complications. IMPRESSIONS: 1. Stool in cecum, large amount of water flush, stool suctioned 2. Retroflexed views revealed internal hemorrhoids 3. Retroflexed views revealed small internal hemorrhoids 4. Revealed hemorrhoids RECOMMENDATIONS: Rectal tube abdominal x ray ok for neostygmine if better in am ok to start TF RECALL: Return 1 month Colonoscopy Ann Keith MD eSigned: Ann Keith MD 07/06/2018 2:50 PM cc:
--- NOTE | 2018-07-06 16:56 | P.PNPL ---
Subjective Interval history: 73 YOAA male with COPD, 02 dependent Follows at [facility] Admitted with AMS, COPD exac Remains intubated NGT to suction On Argatroban drip Abd distended had colonoscopy Physical Exam Vital signs: Vital Signs 07/05/18 18:00 07/05/18 18:30 07/05/18 19:00 Temperature Pulse Rate 80 88 93 H Respiratory Rate 18 19 24 Blood Pressure 124/69 121/66 128/68 Pulse Oximetry 100 100 100 07/05/18 19:31 07/05/18 20:00 07/05/18 20:31 Temperature Pulse Rate 93 H 91 H 100 H Respiratory Rate 20 21 22 Blood Pressure 137/72 125/86 142/79 H Pulse Oximetry 100 100 98 07/05/18 20:56 07/05/18 21:00 07/05/18 21:30 Temperature Pulse Rate 100 H 95 H 86 Respiratory Rate 21 18 19 Blood Pressure 135/78 133/84 Pulse Oximetry 100 100 100 07/05/18 22:00 07/05/18 22:30 07/05/18 23:00 Temperature Pulse Rate 88 85 82 Respiratory Rate 18 18 18 Blood Pressure 128/74 135/73 123/71 Pulse Oximetry 100 100 100 07/05/18 23:30 07/05/18 23:56 07/06/18 00:00 Temperature 99.0 F 99.0 F Pulse Rate 81 82 81 Respiratory Rate 18 18 18 Blood Pressure 134/77 124/76 Pulse Oximetry 100 100 07/06/18 00:30 07/06/18 01:19 EDT 07/06/18 01:00 EST Temperature Pulse Rate 87 83 Respiratory Rate 18 18 18 Blood Pressure 128/75 140/80 Pulse Oximetry 100 100 100 07/06/18 01:30 EST 07/06/18 02:00 07/06/18 02:30 Temperature Pulse Rate 81 81 81 Respiratory Rate 18 18 18 Blood Pressure 130/81 129/78 128/77 Pulse Oximetry 100 100 100 07/06/18 03:00 07/06/18 03:30 07/06/18 03:36 Temperature Pulse Rate 81 81 84 Respiratory Rate 18 18 18 Blood Pressure 132/78 124/75 Pulse Oximetry 100 100 07/06/18 04:00 07/06/18 04:37 07/06/18 05:00 Temperature 98.9 F Pulse Rate 81 79 Respiratory Rate 20 18 18 Blood Pressure 116/74 133/76 Pulse Oximetry 100 100 100 07/06/18 06:00 07/06/18 07:00 07/06/18 08:00 Temperature 98.0 F Pulse Rate 80 81 91 H Respiratory Rate 18 18 20 Blood Pressure 128/81 136/80 137/82 Pulse Oximetry 100 100 96 07/06/18 08:19 07/06/18 09:00 07/06/18 09:13 Temperature Pulse Rate 96 H Respiratory Rate 20 20 Blood Pressure 145/87 H 128/74 Pulse Oximetry 96 97 07/06/18 09:15 07/06/18 10:00 07/06/18 12:00 Temperature Pulse Rate 96 H 88 89 Respiratory Rate 20 19 Blood Pressure 151/76 H Pulse Oximetry 96 07/06/18 13:26 07/06/18 15:38 07/06/18 15:39 Temperature Pulse Rate 88 Respiratory Rate 21 18 18 Blood Pressure Pulse Oximetry 95 100 Intake & Output 07/05/18 07/06/18 07/06/18 19:59 06:59 18:59 Intake Total 100 / 100 Output Total Balance 100 / 100 Weight Intake: IV 100 / 100 D5W Inj 1,000 ML @ 42 mls/hr IV .CONT .[id number] [facility] Rx#:[id number] Diprivan 1000 mg/100 ml Inj 1, 000 mg In 100 ml @ 5 MCG/KG/MIN 2.64 mls/hr IV.CONT TITRATE PRN Rx#:[id number] Maxipime Inj 2,000 MG In NS Inj 100 ML @ 200 mls/hr IV.SIG Q8H [facility] Rx#:[id number] Flagyl 500 MG Inj 100 ML @ 100 100 / 100 mls/hr IV.SIG Q8H [facility] Rx#: [id number] Output: Urine Amount (Catheter) Indwelling Urethral Catheter Other: Date of Last Bowel Movement 07/04/18 GENERAL: Obese AA male, on vent SKIN: Warm and dry. HEAD: Normocephalic. EYES: No scleral icterus. No injection or drainage. NECK: Supple, trachea midline. No JVD or lymphadenopathy. CARDIOVASCULAR: Regular rate and rhythm without murmurs, gallops, or rubs. RESPIRATORY: Breath sounds equal bilaterally. No accessory muscle use. GASTROINTESTINAL: Abdomen soft, non-tender, distended. MUSCULOSKELETAL: No cyanosis, or edema. BACK: Nontender without obvious deformity. No CVA tenderness. - Urinary Catheter Management Indwelling Urethral Catheter Cath placed during this visit: yes Reason for continuing: Hourly intake/output Insertion date: 06/27/18 Insertion time: 16:00 Assessment and Plan - Plan IMPRESSION: Hypercapnoic RF, Reintubated COPD exac AMS improved HTN HIT positive PLAN: Vent support AC 14 Aerosol nebs Cont Abx Supplement 02 Monitor BS Argatroban drip NGT to suction DW sister at BS
[2018-07-07] MEDS: Insulin NovoLIN Regular Correctional Sugar Inj SQ SCH ×7 (00:03→23:29)
[2018-07-07] MEDS: Propofol 1000 mg/100 ml Inj 1,000 MG/100 ML BOTTLE IV.CONT PRN ×2 (00:04→06:57)
[2018-07-07] MEDS: Oral Hygiene Kit OROPHARYNG SCH ×4 (00:04→21:34)
[2018-07-07] MEDS: Artificial Tears Opth Drops 15 ML Bottle EACH EYE SCH ×3 (00:04→21:34)
[2018-07-07 05:06] LABS: Baso % (Auto) 0.1 % (0.0-2.0); Hematocrit 21.4 % (39.0-51.0); Hemoglobin 7.1 gm/dL (13.0-17.0); Lymph # (Auto) 0.2 th/mm3 (1.0-4.8); Lymph % (Auto) 1.1 % (9.0-44.0); Mean Corpuscular HGB Conc 32.9 % (32.0-36.0); Mean Corpuscular Hemoglobin 29.7 pg (27.0-34.0); Mean Corpuscular Volume 90.2 fL (80.0-100.0); Mean Platelet Volume 11.1 fL (7.0-11.0); Mono # (Auto) 0.2 th/mm3 (0.0-0.9); Mono % (Auto) 1.5 % (0.0-8.0); Neut # (Auto) 13.7 th/mm3 (1.8-7.7); Neut % (Auto) 97.3 % (16.0-70.0); Platelet Count 69 th/mm3 (150-450); Red Blood Count 2.38 mil/mm3 (4.50-5.90); Red Cell Distribution Width 13.3 % (11.6-17.2)
[2018-07-07 05:23] LABS: Alanine Aminotransferase 45 U/L (12-78); Albumin 2.4 g/dL (3.4-5.0); Alkaline Phosphatase 49 U/L (45-117); Anion Gap 5 meq/L (5-15); Aspartate Aminotransferase 31 U/L (15-37); Blood Urea Nitrogen 31 mg/dL (7-18); Calcium 7.2 mg/dL (8.5-10.1); Carbon Dioxide 31.6 meq/L (21.0-32.0); Chloride 111 meq/L (98-107); Glomerular Filtration Rate Greater Than 89 mL/min (>89); Glucose,Random 224 mg/dL (74-106); Magnesium 2.1 mg/dL (1.5-2.5); Phosphorus 2.8 mg/dL (2.5-4.9); Potassium 3.8 meq/L (3.5-5.1); Sodium 148 meq/L (136-145); Total Protein 4.9 g/dL (6.4-8.2)
[2018-07-07] MEDS: Famotidine PF Inj 20 MG/2 ML Vial IV.PUSH SCH ×2 (06:33→21:45)
--- NOTE | 2018-07-07 07:20 | P.PNCC ---
Subjective Subjective Remarks/Hospital Course: Mr. Curry is a 73-year-old -[place] male with past medical history significant for COPD on 3 L nasal cannula, hypertension, hyperlipidemia and anxiety who was admitted to the hospitalist service on 06/19/2018 for worsening shortness of breath due to COPD exacerbation. He was treated with IV Solu- Medrol, IV antibiotics, breathing treatments gradually improved. Patient was also complaining about dyspepsia and underwent EGD by GI yesterday. Per report the EGD was normal but patient developed worsening shortness of breath and COPD exacerbation postprocedure, possibly from aspiration after sedated. Two ABGs done yesterday showed hypercapnic respiratory failure second 1 was on BiPAP and this was improved with pH 7.3 with PCO2 of 74. Patient remained on BiPAP overnight however was noticed to be lethargic today a.m., stat ABG showed pH of 7.21 PCO2 110 PO2 88 while on BiPAP. Patient was lethargic intermittently dozing off due to CO2 narcosis. Critical care medicine was consulted and I immediately evaluated the patient. Patient had obviously failed BiPAP I proceeded with endotracheal intubation placed on mechanical ventilation. Postintubation I have ordered single dose of Solu-Medrol 125 mg x1 continue Solu -Medrol 60 every 8, discontinue ceftriaxone and start cefepime 2 g IV every 8 hours continue azithromycin. Add budesonide inhaled, placed on scheduled DuoNeb every 4 hours and as needed. 06/27: Patient was intubated yesterday for severe hypercapnic respiratory failure. Currently remains intubated sedated and intubated remains diminished bilaterally. Heavily sedated for ventilator synchrony 06/28: Urine output significantly improved with fluid resuscitation. Creat down trending now 2 from 2.3, UO >3.3 L. Remains intubated sedated. Will initiate daily sedation vacation and CPAP trials 06/29: More awake today tolerating CPAP trials intermittently follows commands but gets agitated/frustrated fast. Urine output remains excellent creatinine 1.4. However sodium increasing 158 today. 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 Due to hypoglycemia will change to quarter normal saline at 150 mL/h repeat CMP in the afternoon 06/30 Patient was extubated yesterday. Awake 07/01 Patient is lying in bed in NAD. T: 100.5 07/02: Intubated early this morning due to acute hypoxic respiratory failure. Central line placed due to hypotension. Plan for GI perform endoscopic decompression of this large bowel today. Arousable and does follow commands. Placed on argatroban SUBJECTIVE: 07/03: Currently, intubated with borderline blood pressure. Central line placed yesterday due to hypotension. Did not move bowels despite 1 L of fluid from colonoscopy yesterday and multiple laxatives provided. See orders for additional laxatives today. Might need neostigmine. 07/04 Patient remains intubated and sedated with Diprivan. Given Neostigmine last night. KUB this morning showed colonic ileus. Afebrile. On Argatroban. 07/05 No events overnight, sedated with Diprivan and intubated. Off Argatroban. 07/06 Patient remains intubated and sedated. Afebrile. 07/07 Patient remains intubated, s/p decompressive colonoscopy yesterday. Awake. Objective Vital Signs / I&O: Vital Signs 07/06/18 08:00 07/06/18 08:19 07/06/18 09:00 Temperature 98.0 F Pulse Rate 91 H 96 H Respiratory Rate 20 20 Blood Pressure 137/82 145/87 H 128/74 Pulse Oximetry 96 96 07/06/18 09:13 07/06/18 09:15 07/06/18 10:00 Temperature Pulse Rate 96 H 88 Respiratory Rate 20 20 19 Blood Pressure 151/76 H Pulse Oximetry 97 96 07/06/18 12:00 07/06/18 13:26 07/06/18 14:00 Temperature Pulse Rate 89 88 Respiratory Rate 21 Blood Pressure Pulse Oximetry 95 07/06/18 15:38 07/06/18 15:39 07/06/18 16:00 Temperature Pulse Rate 88 72 Respiratory Rate 18 18 Blood Pressure Pulse Oximetry 100 07/06/18 17:43 07/06/18 17:45 07/06/18 17:48 Temperature Pulse Rate 77 82 78 Respiratory Rate 18 18 18 Blood Pressure 125/60 133/59 L 126/60 Pulse Oximetry 100 100 100 07/06/18 17:50 07/06/18 17:53 07/06/18 17:55 Temperature Pulse Rate 82 82 79 Respiratory Rate 18 18 18 Blood Pressure 135/63 130/62 120/58 L Pulse Oximetry 100 100 100 07/06/18 17:58 07/06/18 18:00 07/06/18 18:03 Temperature Pulse Rate 79 78 76 Respiratory Rate 18 18 18 Blood Pressure 127/61 130/62 123/58 L Pulse Oximetry 100 100 100 07/06/18 18:05 07/06/18 18:07 07/06/18 18:10 Temperature Pulse Rate 80 73 74 Respiratory Rate 18 18 18 Blood Pressure 121/56 L 118/58 L 117/56 L Pulse Oximetry 100 100 100 07/06/18 18:12 07/06/18 18:15 07/06/18 18:18 Temperature Pulse Rate 78 77 76 Respiratory Rate 19 18 18 Blood Pressure 115/59 L 115/58 L 118/62 Pulse Oximetry 100 100 100 07/06/18 18:20 07/06/18 18:23 07/06/18 18:25 Temperature Pulse Rate 79 80 79 Respiratory Rate 18 18 18 Blood Pressure 117/59 L 119/60 126/60 Pulse Oximetry 100 100 100 07/06/18 18:28 07/06/18 18:30 07/06/18 18:33 Temperature Pulse Rate 90 85 76 Respiratory Rate 11 L 12 18 Blood Pressure 117/58 L 128/66 130/65 Pulse Oximetry 100 100 100 07/06/18 18:35 07/06/18 18:38 07/06/18 18:40 Temperature Pulse Rate 83 78 78 Respiratory Rate 18 18 18 Blood Pressure 131/61 129/61 132/61 Pulse Oximetry 100 100 100 07/06/18 18:42 07/06/18 19:00 07/06/18 19:30 Temperature Pulse Rate 82 83 85 Respiratory Rate 18 19 20 Blood Pressure 135/62 124/60 123/56 L Pulse Oximetry 100 100 97 07/06/18 20:00 07/06/18 20:29 07/06/18 20:30 Temperature 98.6 F Pulse Rate 86 92 H Respiratory Rate 20 20 20 Blood Pressure 129/58 L 113/58 L Pulse Oximetry 97 97 97 07/06/18 20:32 07/06/18 21:00 07/06/18 21:30 Temperature Pulse Rate 93 H 88 90 Respiratory Rate 22 21 21 Blood Pressure 121/60 135/62 Pulse Oximetry 99 99 07/06/18 22:00 07/06/18 22:30 07/06/18 23:00 Temperature Pulse Rate 88 90 86 Respiratory Rate 20 21 20 Blood Pressure 92/60 L 90/60 L 119/65 Pulse Oximetry 98 98 99 07/06/18 23:30 07/06/18 23:50 07/07/18 00:00 Temperature 99.3 F Pulse Rate 87 85 86 Respiratory Rate 19 18 20 Blood Pressure 116/66 121/65 Pulse Oximetry 99 100 100 07/07/18 00:30 07/07/18 01:00 07/07/18 01:30 Temperature Pulse Rate 82 80 79 Respiratory Rate 19 18 18 Blood Pressure 129/60 122/61 112/58 L Pulse Oximetry 100 100 100 07/07/18 02:00 07/07/18 02:30 07/07/18 03:00 Temperature Pulse Rate 80 85 79 Respiratory Rate 18 18 18 Blood Pressure 115/55 L 110/63 101/56 L Pulse Oximetry 100 100 100 07/07/18 03:30 07/07/18 04:00 07/07/18 04:01 Temperature Pulse Rate 79 79 78 Respiratory Rate 18 18 18 Blood Pressure 107/59 L 110/56 L Pulse Oximetry 100 100 100 07/07/18 04:30 07/07/18 04:44 07/07/18 04:45 Temperature Pulse Rate 75 76 Respiratory Rate 18 18 18 Blood Pressure 108/60 Pulse Oximetry 100 100 07/07/18 05:00 07/07/18 05:30 07/07/18 06:00 Temperature Pulse Rate 78 76 76 Respiratory Rate 18 18 18 Blood Pressure 110/59 L 102/58 L 111/61 Pulse Oximetry 100 100 100 Intake & Output 07/06/18 07/07/18 07/07/18 18:59 06:59 18:59 Intake Total 500 / 500 1090 / 1090 Output Total 1160 / 1160 1150 / 1150 Balance -660 / -660 -60 / -60 Weight 93 kg Intake: IV 300 / 300 590 / 590 Diprivan 1000 mg/100 ml Inj 1, 100 / 100 190 / 190 000 mg In 100 ml @ 5 MCG/KG/MIN 2.64 mls/hr IV.CONT TITRATE PRN Rx#:[id number] Maxipime Inj 2,000 MG In NS Inj 100 / 100 200 / 200 100 ML @ 200 mls/hr IV.SIG Q8H [facility] Rx#:[id number] Flagyl 500 MG Inj 100 ML @ 100 100 / 100 200 / 200 mls/hr IV.SIG Q8H [facility] Rx#: [id number] Water Bolus Amount 200 / 200 500 / 500 Output: Urine Amount (Catheter) 960 / 960 1150 / 1150 Indwelling Urethral Catheter 960 / 960 1150 / 1150 Gastric Drainage 200 / 200 Left Nare Nasogastric Tube 200 / 200 Other: Date of Last Bowel Movement 07/06/18 07/06/18 # Incontinent Bowel Movements 1 Result Diagrams: 07/07/18 04:38 07/07/18 04:38 Other Results: Laboratory Results - last 12 hr 07/06/18 07/06/18 07/07/18 20:20 20:21 00:03 WBC RBC Hgb Hct MCV MCH MCHC RDW Plt Count MPV Prelim Diff (Auto) Neut % (Auto) Lymph % (Auto) [place] % (Auto) Eos % (Auto) Baso % (Auto) Neut # (Auto) Lymph # (Auto) [place] # (Auto) Eos # (Auto) Baso # (Auto) Differential Comment Sodium Potassium Chloride Carbon Dioxide Anion Gap BUN Creatinine Estimated GFR POC Glucose 225 H 193 H 174 H Random Glucose Calcium Prot Corrected Calcium Phosphorus Magnesium Total Bilirubin AST ALT Alkaline Phosphatase Total Protein Albumin 07/07/18 07/07/18 07/07/18 04:34 04:37 04:38 WBC 14.0 H RBC 2.38 L Hgb 7.1 L Hct 21.4 L MCV 90.2 MCH 29.7 MCHC 32.9 RDW 13.3 Plt Count 69 L MPV 11.1 H Prelim Diff (Auto) Slide review pending Neut % (Auto) 97.3 H Lymph % (Auto) 1.1 L [place] % (Auto) 1.5 Eos % (Auto) 0.0 Baso % (Auto) 0.1 Neut # (Auto) 13.7 H Lymph # (Auto) 0.2 L [place] # (Auto) 0.2 Eos # (Auto) 0.0 Baso # (Auto) 0.0 Differential Comment . Sodium Potassium Chloride Carbon Dioxide Anion Gap BUN Creatinine Estimated GFR POC Glucose 259 H 241 H Random Glucose Calcium Prot Corrected Calcium Phosphorus Magnesium Total Bilirubin AST ALT Alkaline Phosphatase Total Protein Albumin 07/07/18 04:38 WBC RBC Hgb Hct MCV MCH MCHC RDW Plt Count MPV Prelim Diff (Auto) Neut % (Auto) Lymph % (Auto) Sabine % (Auto) Eos % (Auto) Baso % (Auto) Neut # (Auto) Lymph # (Auto) Sabine # (Auto) Eos # (Auto) Baso # (Auto) Differential Comment Sodium 148 H Potassium 3.8 Chloride 111 H Carbon Dioxide 31.6 Anion Gap 5 BUN 31 H Creatinine 0.88 Estimated GFR Greater than 89 POC Glucose Random Glucose 224 H Calcium 7.2 L* Prot Corrected Calcium 8.4 L Phosphorus 2.8 Magnesium 2.1 Total Bilirubin 0.4 AST 31 ALT 45 Alkaline Phosphatase 49 Total Protein 4.9 L D Albumin 2.4 L Imaging: Abdomen Ultrasound 06/21/18 00:00 CONCLUSION: 1. No ascites is identified within the abdomen. Abdomen/Bladder Ultrasound 06/28/18 00:00 CONCLUSION: 1. Echogenic kidneys characteristic of medical renal disease. No hydronephrosis. Bladder decompressed by Moreno Chest CTA 07/02/18 00:00 CONCLUSION: 1. No pulmonary embolus. 2. Diffuse but basilar predominant bilateral airspace disease. 3. Endotracheal and endobronchial secretions are demonstrated. 4. Moderate emphysema. 5. Left ventricular hypertrophy. Venous Doppler Study 07/02/18 00:00 CONCLUSION: 1. Limited, no evidence for thrombosis. Abdomen/Pelvis CT 07/02/18 04:20 CONCLUSION: Colonic distention most likely representing moderate adynamic ileus. However, distal sigmoid colon is decompressed and a sigmoid stricture is conceivable but considered less likely. Apparent mild proctitis. Clinical surveillance and follow-up CT recommended. Chest X-Ray 07/04/18 06:00 CONCLUSION: Cardiomegaly and findings of vascular congestion without overt failure. There has been no significant change when compared to the prior exam. Abdomen X-Ray 07/05/18 07:08 CONCLUSION: No significant interval change with persistent diffuse air-filled distention of the colon suggesting ileus. Objective Remarks: GENERAL: Patient is 73 yo lying in bed in NAD orotracheally intubated SKIN: Warm and dry. HEAD: Normocephalic. EYES: No scleral icterus. No injection or drainage. NECK: Supple, trachea midline. No JVD or lymphadenopathy. CARDIOVASCULAR: Regular rate and rhythm without murmurs, gallops, or rubs. RESPIRATORY: Distant breath sounds. Few crackles patient bases. Clears with suctioning. GASTROINTESTINAL: Abdomen distended. Protuberant. Hypoactive bowel sounds appreciated. MUSCULOSKELETAL: No significant peripheral edema. Neuro: Arousable the ventilator and follows command. Assessment and Plan - Assessment and Plan Plan: ASSESSMENT: Acute hypercapnic respiratory failure Acute COPD exacerbation Altered mental status due to CO2 narcosis Acute kidney injury/failure Hypertension Leukocytosis Hyperglycemia COPD Hypernatremia Colonic ileus PLAN: NEURO: -Monitor neuro status, -On propofol drip for sedation/analgesia while intubated. Goal of RASS of -2. Daily sedation vacation RESP: -Continue with vent support keep sats >92% -Extubated 06/29. Reintubated 07/02 -DuoNeb every 4 hours scheduled and as needed -IV Solu-Medrol 40 mg Q12 -Inhaled budesonide -Continue cefepime -Spontaneous breathing trials as alonso. Check CXR CV: - Monitor HR and BP keep MAP>65mmHg -Continue with BP meds, Cardizem 60mg Q6,, Hydralazine 50mg TID with holding parameters GI: -N.p.o. status. NGT to LIWS -IV famotidine -GI for decompression 07/02. On docusate sodium/senna 1 tablet twice daily, lactulose 30 cc 4 times daily, GoLYTELY 2 L x1 now. Mineral oil 15 mL x1 now. -KUB 07/04- colonic ileus, -KUB 07/05: No significant interval change with persistent diffuse air-filled distention of the colon suggesting ileus. -GI follow s/p decompressive colonoscopy, rectal tube to suction, s/p Neostigmine x1 dose yesterday -Check KUB today. FEN/: -Monitor renal function, I/O's, electrolytes replacement per protocol. - IVF D5W@42ml/hr -free water 250ml Q6. Monitor sodium level. ID: -Antibiotics with cefepime and completed azithromycin. Monitor for signs of infections ( Fever, WBC) -Sputum cultures-neg to date -07/02 BC: NGTS, sputum cx 07/02:normal resp justyn HEME: -Monitor CBC, coags, Hep PLT is positive. ANNMARIE negative. Hematology is following. Off argatroban drip ENDO: -Electrolyte replacement per protocol -Sliding scale insulin medium scale PROPH: -Bilateral lower extremity SCDs. PPI , -Doppler US LE negative DVT LINES: -Utilize peripheral IVs, Level 3
--- NOTE | 2018-07-07 07:59 | XR ---
EXAM DATE: 07/07/2018 7:54 AM EST AGE/SEX: 73 years / Male INDICATIONS: Shortness of breath. CLINICAL DATA: This is the patient's subsequent encounter. Patient reports that signs and symptoms h ave been present for 1 week and indicates a pain score of Nonresponsive. MEDICAL/SURGICAL HISTORY: Asthma. Chronic obstructive pulmonary disease. Hypertension. None. COMPARISON: [facility] – [place], CHEST 1V SINGLE AP, 07/04/2018. . FINDINGS: A single AP view of the chest demonstrates minimal bibasilar densities. Endotracheal tube 6 cm above the christy. Nasogastric tube and left jugular central line appear stable. Heart normal in size. The cardiomediastinal contours are unremarkable. Osseous structures are intact. CONCLUSION: Minimal bibasilar densities likely atelectasis. Electronically signed by: Saulo Moreno MD 07/07/2018 7:58 AM EST
--- NOTE | 2018-07-07 08:00 | XR ---
EXAM DATE: 07/07/2018 7:57 AM EST AGE/SEX: 73 years / Male INDICATIONS: Distention. CLINICAL DATA: This is the patient's subsequent encounter. Patient reports that signs and symptoms h ave been present for 1 week and indicates a pain score of Nonresponsive. MEDICAL/SURGICAL HISTORY: Hypertension. None. COMPAR[place]: [facility] [place] 1[place] KUB, [place]. . FINDINGS: There is less gaseous distention of multiple bowel loops. No abnormal masses, calcifications, or org anomegaly is seen. The osseous structures are unremarkable. CONCLUSION: Gaseous distention of multiple bowel loops has improved since previous study. Electronically signed by: Saulo Moreno MD 07/07/2018 7:58 AM EST
[2018-07-07 09:26] LABS: Lymphocytes 1 % (9-44); Tallied Nucleated RBC 2 (0-0)
[2018-07-07] MEDS: Chlorhexidine 0.12% Oral Kit 15 ML UDC OROPHARYNG SCH ×2 (10:02→21:33)
[2018-07-07] MEDS: MethylPREDNISolone Sod Succinate Inj 40 MG/ML Vial IV.PUSH SCH ×2 (10:03→21:45)
[2018-07-07] MEDS: hydrALAZINE 50 MG Tablet PO SCH ×3 (10:04→21:34)
[2018-07-07] MEDS: Senna/Docusate Sodium 8.6/50 MG Tablet PO SCH ×2 (10:05→21:33)
[2018-07-07] MEDS: Simethicone 80 MG Chew Tablet PO SCH ×4 (10:06→21:34)
[2018-07-07] MEDS: Beneprotein Powder Packet G-TUBE SCH ×2 (10:08→19:37)
[2018-07-07] MEDS: dilTIAZem 60 MG Tablet PO SCH ×4 (10:08→21:33)
[2018-07-07] MEDS: Bisacodyl 10 MG Supp RECTAL SCH (10:09)
[2018-07-07 12:10] LABS: ABG Base Excess 4.7 mmol/L (-2-2); ABG PCO2 44 mmHg (38-42); ABG PO2 81 mmHG (61-120)
--- NOTE | 2018-07-07 14:29 | P.DIET ---
Nutritional Evaluation Type of nutrition evaluation: initial Nutrition consult regarding: Tube Feeding Objective - Diagnosis SOB, COPD Exacerbation - Objective % IBW: 126 Body Weight Used for Calculations: IBW (67.3kg(148 lb)) Energy Needs - Lower Range (kCal/kg): 23 Energy Needs - Upper Range (kCal/kg): 28 Lower Limit kCal/kg (kCals): 1,548 Upper Limit kCal/kg (kCals): 1,884 Lower Limit Protein Factor (Grams per Kg): 1.2 Upper Limit Protein Factor (Grams per Kg): 1.4 Lower Protein Needs (Protein): 81 Upper Protein Needs (Protein): 94 Dietitian Reviewed in Medical Record: Curent medications, Intake & Output, Labs , Medical history, Tube feeding Diet Order: TF'ing Glucerna 1.5 @ goal rate 45ml/hr Objective Comments: PMH includes: COPD, HTN, hyperlipidemia, anxiety Labs include: BUN 31, POC glucose 244; Free Water Flushes 100ml Q 6hr Meds include: Norvasc, Pepcid, Levemir, Novolin R, Lopressor, Zofran, Beneprotein TID LBM 07/06/18 Assessment Assessment: Pt continues to be at nutritional risk r/t need for TF'ing. TF w/Glucerna 1.5 @ goal rate 45ml/hr on hold d/t pt s/p decompressive colonoscopy yesterday (07/06) . Pt still intubated and NPO, aim to restart TF when bowel fxn returns to normal. Wt noted. Labs/electrolytes reviewed-monitor glucose and renal labs. Additional Rec r/t Clinical Course. Recommendations: 1. TF'ing w/Glucerna 1.5 @ goal rate 45ml/hr provides for pt's assessed needs 2. Aim to restart TF when pts bowel fxn returns to normal 3. Free Water Flushes per MD, as ordered 4. Additional Rec r/t Clinical Course Dietitian to Monitor: Lab values, Electrolytes, Renal labs, Glucose level, Intake & Output, Tube feeding tolerance, Weight change, Medical course
--- NOTE | 2018-07-07 14:57 | P.PNGI ---
Subjective Interval history: Intubated status post decompressive colonoscopy <Carlene Young - Last Filed: 07/07/18 14:48> Physical Exam Vital signs: Vital Signs 07/06/18 15:38 07/06/18 15:39 07/06/18 16:00 Temperature Pulse Rate 88 72 Respiratory Rate 18 18 Blood Pressure Pulse Oximetry 100 07/06/18 17:43 07/06/18 17:45 07/06/18 17:48 Temperature Pulse Rate 77 82 78 Respiratory Rate 18 18 18 Blood Pressure 125/60 133/59 L 126/60 Pulse Oximetry 100 100 100 07/06/18 17:50 07/06/18 17:53 07/06/18 17:55 Temperature Pulse Rate 82 82 79 Respiratory Rate 18 18 18 Blood Pressure 135/63 130/62 120/58 L Pulse Oximetry 100 100 100 07/06/18 17:58 07/06/18 18:00 07/06/18 18:03 Temperature Pulse Rate 79 78 76 Respiratory Rate 18 18 18 Blood Pressure 127/61 130/62 123/58 L Pulse Oximetry 100 100 100 07/06/18 18:05 07/06/18 18:07 07/06/18 18:10 Temperature Pulse Rate 80 73 74 Respiratory Rate 18 18 18 Blood Pressure 121/56 L 118/58 L 117/56 L Pulse Oximetry 100 100 100 07/06/18 18:12 07/06/18 18:15 07/06/18 18:18 Temperature Pulse Rate 78 77 76 Respiratory Rate 19 18 18 Blood Pressure 115/59 L 115/58 L 118/62 Pulse Oximetry 100 100 100 07/06/18 18:20 07/06/18 18:23 07/06/18 18:25 Temperature Pulse Rate 79 80 79 Respiratory Rate 18 18 18 Blood Pressure 117/59 L 119/60 126/60 Pulse Oximetry 100 100 100 07/06/18 18:28 07/06/18 18:30 07/06/18 18:33 Temperature Pulse Rate 90 85 76 Respiratory Rate 11 L 12 18 Blood Pressure 117/58 L 128/66 130/65 Pulse Oximetry 100 100 100 07/06/18 18:35 07/06/18 18:38 07/06/18 18:40 Temperature Pulse Rate 83 78 78 Respiratory Rate 18 18 18 Blood Pressure 131/61 129/61 132/61 Pulse Oximetry 100 100 100 07/06/18 18:42 07/06/18 19:00 07/06/18 19:30 Temperature Pulse Rate 82 83 85 Respiratory Rate 18 19 20 Blood Pressure 135/62 124/60 123/56 L Pulse Oximetry 100 100 97 07/06/18 20:00 07/06/18 20:29 07/06/18 20:30 Temperature 98.6 F Pulse Rate 86 92 H Respiratory Rate 20 20 20 Blood Pressure 129/58 L 113/58 L Pulse Oximetry 97 97 97 07/06/18 20:32 07/06/18 21:00 07/06/18 21:30 Temperature Pulse Rate 93 H 88 90 Respiratory Rate 22 21 21 Blood Pressure 121/60 135/62 Pulse Oximetry 99 99 07/06/18 22:00 07/06/18 22:30 07/06/18 23:00 Temperature Pulse Rate 88 90 86 Respiratory Rate 20 21 20 Blood Pressure 92/60 L 90/60 L 119/65 Pulse Oximetry 98 98 99 07/06/18 23:30 07/06/18 23:50 07/07/18 00:00 Temperature 99.3 F Pulse Rate 87 85 86 Respiratory Rate 19 18 20 Blood Pressure 116/66 121/65 Pulse Oximetry 99 100 100 07/07/18 00:30 07/07/18 01:00 07/07/18 01:30 Temperature Pulse Rate 82 80 79 Respiratory Rate 19 18 18 Blood Pressure 129/60 122/61 112/58 L Pulse Oximetry 100 100 100 07/07/18 02:00 07/07/18 02:30 07/07/18 03:00 Temperature Pulse Rate 80 85 79 Respiratory Rate 18 18 18 Blood Pressure 115/55 L 110/63 101/56 L Pulse Oximetry 100 100 100 07/07/18 03:30 07/07/18 04:00 07/07/18 04:01 Temperature Pulse Rate 79 79 78 Respiratory Rate 18 18 18 Blood Pressure 107/59 L 110/56 L Pulse Oximetry 100 100 100 07/07/18 04:30 07/07/18 04:44 07/07/18 04:45 Temperature Pulse Rate 75 76 Respiratory Rate 18 18 18 Blood Pressure 108/60 Pulse Oximetry 100 100 07/07/18 05:00 07/07/18 05:30 07/07/18 06:00 Temperature Pulse Rate 78 76 76 Respiratory Rate 18 18 18 Blood Pressure 110/59 L 102/58 L 111/61 Pulse Oximetry 100 100 100 07/07/18 08:20 07/07/18 08:21 07/07/18 11:19 Temperature Pulse Rate 93 H 91 H Respiratory Rate 23 18 22 Blood Pressure Pulse Oximetry 100 99 07/07/18 13:39 07/07/18 14:38 Temperature Pulse Rate 98 H Respiratory Rate 20 Blood Pressure Pulse Oximetry 96 Intake & Output 07/06/18 07/07/18 07/07/18 18:59 06:59 18:59 Intake Total 500 / 500 1090 / 1090 100 / 100 Output Total 1160 / 1160 1150 / 1150 Balance -660 / -660 -60 / -60 100 / 100 Weight 93 kg Intake: IV 300 / 300 590 / 590 100 / 100 Diprivan 1000 mg/100 ml Inj 1, 100 / 100 190 / 190 000 mg In 100 ml @ 5 MCG/KG/MIN 2.64 mls/hr IV.CONT TITRATE PRN Rx#:[id number] Maxipime Inj 2,000 MG In NS Inj 100 / 100 200 / 200 100 ML @ 200 mls/hr IV.SIG Q8H WOLF Rx#:[id number] Flagyl 500 MG Inj 100 ML @ 100 100 / 100 200 / 200 100 / 100 mls/hr IV.SIG Q8H WOLF Rx#: [id number] Water Bolus Amount 200 / 200 500 / 500 Output: Urine Amount (Catheter) 960 / 960 1150 / 1150 Indwelling Urethral Catheter 960 / 960 1150 / 1150 Gastric Drainage 200 / 200 Left Nare Nasogastric Tube 200 / 200 Other: Date of Last Bowel Movement 07/06/18 07/06/18 # Incontinent Bowel Movements 1 - Constitutional Comments: Critically ill - Routine HEENT Exam Head: Present: normocephalic - Routine Respiratory Exam Present: patient mechanically ventilated - Routine Cardiovascular Exam Present: RRR, S1, S2 - Routine Abdominal Exam Present: distended, firm. Absent: tenderness, guarding Comments: Bowel sounds audible - Routine Skin Exam Present: dry, warm - Urinary Catheter Management Indwelling Urethral Catheter Cath placed during this visit: yes Reason for continuing: Hourly intake/output Insertion date: 06/27/18 Insertion time: 16:00 <Young,Carlene - Last Filed: 07/07/18 14:48> Vital signs: Vital Signs 07/06/18 18:15 07/06/18 18:18 07/06/18 18:20 Temperature Pulse Rate 77 76 79 Respiratory Rate 18 18 18 Blood Pressure 115/58 L 118/62 117/59 L Pulse Oximetry 100 100 100 07/06/18 18:23 07/06/18 18:25 07/06/18 18:28 Temperature Pulse Rate 80 79 90 Respiratory Rate 18 18 11 L Blood Pressure 119/60 126/60 117/58 L Pulse Oximetry 100 100 100 07/06/18 18:30 07/06/18 18:33 07/06/18 18:35 Temperature Pulse Rate 85 76 83 Respiratory Rate 12 18 18 Blood Pressure 128/66 130/65 131/61 Pulse Oximetry 100 100 100 07/06/18 18:38 07/06/18 18:40 07/06/18 18:42 Temperature Pulse Rate 78 78 82 Respiratory Rate 18 18 18 Blood Pressure 129/61 132/61 135/62 Pulse Oximetry 100 100 100 07/06/18 19:00 07/06/18 19:30 07/06/18 20:00 Temperature 98.6 F Pulse Rate 83 85 86 Respiratory Rate 19 20 20 Blood Pressure 124/60 123/56 L 129/58 L Pulse Oximetry 100 97 97 07/06/18 20:29 07/06/18 20:30 07/06/18 20:32 Temperature Pulse Rate 92 H 93 H Respiratory Rate 20 20 22 Blood Pressure 113/58 L Pulse Oximetry 97 97 07/06/18 21:00 07/06/18 21:30 07/06/18 22:00 Temperature Pulse Rate 88 90 88 Respiratory Rate 21 21 20 Blood Pressure 121/60 135/62 92/60 L Pulse Oximetry 99 99 98 07/06/18 22:30 07/06/18 23:00 07/06/18 23:30 Temperature Pulse Rate 90 86 87 Respiratory Rate 21 20 19 Blood Pressure 90/60 L 119/65 116/66 Pulse Oximetry 98 99 99 07/06/18 23:50 07/07/18 00:00 07/07/18 00:30 Temperature 99.3 F Pulse Rate 85 86 82 Respiratory Rate 18 20 19 Blood Pressure 121/65 129/60 Pulse Oximetry 100 100 100 07/07/18 01:00 07/07/18 01:30 07/07/18 02:00 Temperature Pulse Rate 80 79 80 Respiratory Rate 18 18 18 Blood Pressure 122/61 112/58 L 115/55 L Pulse Oximetry 100 100 100 07/07/18 02:30 07/07/18 03:00 07/07/18 03:30 Temperature Pulse Rate 85 79 79 Respiratory Rate 18 18 18 Blood Pressure 110/63 101/56 L 107/59 L Pulse Oximetry 100 100 100 07/07/18 04:00 07/07/18 04:01 07/07/18 04:30 Temperature Pulse Rate 79 78 75 Respiratory Rate 18 18 18 Blood Pressure 110/56 L 108/60 Pulse Oximetry 100 100 100 07/07/18 04:44 07/07/18 04:45 07/07/18 05:00 Temperature Pulse Rate 76 78 Respiratory Rate 18 18 18 Blood Pressure 110/59 L Pulse Oximetry 100 100 07/07/18 05:30 07/07/18 06:00 07/07/18 08:00 Temperature 99.3 F Pulse Rate 76 76 88 Respiratory Rate 18 18 19 Blood Pressure 102/58 L 111/61 118/59 L Pulse Oximetry 100 100 07/07/18 08:20 07/07/18 08:21 07/07/18 10:00 Temperature Pulse Rate 93 H 91 H Respiratory Rate 23 18 Blood Pressure Pulse Oximetry 100 07/07/18 11:19 07/07/18 12:00 07/07/18 13:39 Temperature 98.9 F Pulse Rate 91 H 79 Respiratory Rate 22 18 Blood Pressure 119/57 L Pulse Oximetry 99 96 07/07/18 14:00 07/07/18 14:38 07/07/18 16:00 Temperature 98.7 F Pulse Rate 92 H 98 H 110 H Respiratory Rate 20 26 H Blood Pressure 138/60 Pulse Oximetry 94 L Intake & Output 07/06/18 07/07/18 07/07/18 18:59 06:59 18:59 Intake Total 500 / 500 1090 / 1090 100 / 100 Output Total 1160 / 1160 1150 / 1150 Balance -660 / -660 -60 / -60 100 / 100 Weight 93 kg Intake: IV 300 / 300 590 / 590 100 / 100 Diprivan 1000 mg/100 ml Inj 1, 100 / 100 190 / 190 000 mg In 100 ml @ 5 MCG/KG/MIN 2.64 mls/hr IV.CONT TITRATE PRN Rx#:[id number] Maxipime Inj 2,000 MG In NS Inj 100 / 100 200 / 200 100 ML @ 200 mls/hr IV.SIG Q8H WOLF Rx#:[id number] Flagyl 500 MG Inj 100 ML @ 100 100 / 100 200 / 200 100 / 100 mls/hr IV.SIG Q8H WOLF Rx#: [id number] Water Bolus Amount 200 / 200 500 / 500 Output: Urine Amount (Catheter) 960 / 960 1150 / 1150 Indwelling Urethral Catheter 960 / 960 1150 / 1150 Gastric Drainage 200 / 200 Left Nare Nasogastric Tube 200 / 200 Other: Date of Last Bowel Movement 07/06/18 07/06/18 07/07/18 # Incontinent Bowel Movements 1 - Urinary Catheter Management Indwelling Urethral Catheter Cath placed during this visit: no <SusanmichaelAnn - Last Filed: 07/07/18 18:13> Results - Labs CBC & Chem 7: 07/07/18 04:38 07/07/18 04:38 Laboratory Results - last 24 hr 07/06/18 07/06/18 07/06/18 16:58 20:20 20:21 WBC RBC Hgb Hct MCV MCH MCHC RDW Plt Count MPV Prelim Diff (Auto) Neut % (Auto) Lymph % (Auto) Addison % (Auto) Eos % (Auto) Baso % (Auto) Neut # (Auto) Lymph # (Auto) Addison # (Auto) Eos # (Auto) Baso # (Auto) WBC Differential Seg Neuts % (Manual) Band Neuts % (Manual) Lymphocytes % (Manual) Abs Neuts (Manual) Nucleated RBCs/100 WBC Differential Comment Platelet Estimate Platelet Morphology Puncture Site Patient Temperature O2 Saturation ABG pH ABG pCO2 ABG pO2 ABG HCO3 ABG O2 Content ABG Base Excess ABG Methemoglobin Raymon Test Hemoglobin Carboxyhemoglobin O2 Delivery Device Vent Setting Inspired O2 Critical Value Sodium Potassium Chloride Carbon Dioxide Anion Gap BUN Creatinine Estimated GFR POC Glucose 200 H 225 H 193 H Random Glucose Calcium Prot Corrected Calcium Phosphorus Magnesium Total Bilirubin AST ALT Alkaline Phosphatase Total Protein Albumin 07/07/18 07/07/18 07/07/18 00:03 04:34 04:37 WBC RBC Hgb Hct MCV MCH MCHC RDW Plt Count MPV Prelim Diff (Auto) Neut % (Auto) Lymph % (Auto) Addison % (Auto) Eos % (Auto) Baso % (Auto) Neut # (Auto) Lymph # (Auto) Addison # (Auto) Eos # (Auto) Baso # (Auto) WBC Differential Seg Neuts % (Manual) Band Neuts % (Manual) Lymphocytes % (Manual) Abs Neuts (Manual) Nucleated RBCs/100 WBC Differential Comment Platelet Estimate Platelet Morphology Puncture Site Patient Temperature O2 Saturation ABG pH ABG pCO2 ABG pO2 ABG HCO3 ABG O2 Content ABG Base Excess ABG Methemoglobin Raymon Test Hemoglobin Carboxyhemoglobin O2 Delivery Device Vent Setting Inspired O2 Critical Value Sodium Potassium Chloride Carbon Dioxide Anion Gap BUN Creatinine Estimated GFR POC Glucose 174 H 259 H 241 H Random Glucose Calcium Prot Corrected Calcium Phosphorus Magnesium Total Bilirubin AST ALT Alkaline Phosphatase Total Protein Albumin 07/07/18 07/07/18 07/07/18 04:38 04:38 10:14 WBC 14.0 H RBC 2.38 L Hgb 7.1 L Hct 21.4 L MCV 90.2 MCH 29.7 MCHC 32.9 RDW 13.3 Plt Count 69 L MPV 11.1 H Prelim Diff (Auto) Slide review pending Neut % (Auto) 97.3 H Lymph % (Auto) 1.1 L Addison % (Auto) 1.5 Eos % (Auto) 0.0 Baso % (Auto) 0.1 Neut # (Auto) 13.7 H Lymph # (Auto) 0.2 L Addison # (Auto) 0.2 Eos # (Auto) 0.0 Baso # (Auto) 0.0 WBC Differential Manual diff final Seg Neuts % (Manual) 98 H Band Neuts % (Manual) 1 Lymphocytes % (Manual) 1 L Abs Neuts (Manual) 13.9 H Nucleated RBCs/100 WBC 2 H Differential Comment . Platelet Estimate Low L Platelet Morphology Enlarged H Puncture Site Patient Temperature O2 Saturation ABG pH ABG pCO2 ABG pO2 ABG HCO3 ABG O2 Content ABG Base Excess ABG Methemoglobin Raymon Test Hemoglobin Carboxyhemoglobin O2 Delivery Device Vent Setting Inspired O2 Critical Value Sodium 148 H Potassium 3.8 Chloride 111 H Carbon Dioxide 31.6 Anion Gap 5 BUN 31 H Creatinine 0.88 Estimated GFR Greater than 89 POC Glucose 245 H Random Glucose 224 H Calcium 7.2 L* Prot Corrected Calcium 8.4 L Phosphorus 2.8 Magnesium 2.1 Total Bilirubin 0.4 AST 31 ALT 45 Alkaline Phosphatase 49 Total Protein 4.9 L D Albumin 2.4 L 07/07/18 07/07/18 12:00 13:10 WBC RBC Hgb Hct MCV MCH MCHC RDW Plt Count MPV Prelim Diff (Auto) Neut % (Auto) Lymph % (Auto) Addison % (Auto) Eos % (Auto) Baso % (Auto) Neut # (Auto) Lymph # (Auto) Addison # (Auto) Eos # (Auto) Baso # (Auto) WBC Differential Seg Neuts % (Manual) Band Neuts % (Manual) Lymphocytes % (Manual) Abs Neuts (Manual) Nucleated RBCs/100 WBC Differential Comment Platelet Estimate Platelet Morphology Puncture Site Right radial Patient Temperature 98.6 O2 Saturation 93 ABG pH 7.43 H ABG pCO2 44 H ABG pO2 81 ABG HCO3 29 H ABG O2 Content 10.6 L ABG Base Excess 4.7 H ABG Methemoglobin 1.9 Raymon Test Present Hemoglobin 8.0 L Carboxyhemoglobin 1.1 O2 Delivery Device Ventilator Vent Setting Cpap 5/10ps Inspired O2 35 Critical Value No Sodium Potassium Chloride Carbon Dioxide Anion Gap BUN Creatinine Estimated GFR POC Glucose 244 H Random Glucose Calcium Prot Corrected Calcium Phosphorus Magnesium Total Bilirubin AST ALT Alkaline Phosphatase Total Protein Albumin Microbiology 07/02/18 05:41 Blood - Peripheral Aerobic Blood Culture - Final No growth in 5 days 07/02/18 05:41 Blood - Peripheral Anaerobic Blood Culture - Final No growth in 5 days 07/02/18 05:47 Blood - Peripheral Aerobic Blood Culture - Final No growth in 5 days 07/02/18 05:47 Blood - Peripheral Anaerobic Blood Culture - Final No growth in 5 days - Imaging Impressions Chest X-Ray 07/07/18 07:12 CONCLUSION: Minimal bibasilar densities likely atelectasis. Abdomen X-Ray 07/07/18 07:13 CONCLUSION: Gaseous distention of multiple bowel loops has improved since previous study. <Carlene Young - Last Filed: 07/07/18 14:48> - Labs CBC & Chem 7: 07/07/18 04:38 07/07/18 04:38 Laboratory Results - last 24 hr 07/06/18 07/06/18 07/07/18 20:20 20:21 00:03 WBC RBC Hgb Hct MCV MCH MCHC RDW Plt Count MPV Prelim Diff (Auto) Neut % (Auto) Lymph % (Auto) Addison % (Auto) Eos % (Auto) Baso % (Auto) Neut # (Auto) Lymph # (Auto) Addison # (Auto) Eos # (Auto) Baso # (Auto) WBC Differential Seg Neuts % (Manual) Band Neuts % (Manual) Lymphocytes % (Manual) Abs Neuts (Manual) Nucleated RBCs/100 WBC Differential Comment Platelet Estimate Platelet Morphology Puncture Site Patient Temperature O2 Saturation ABG pH ABG pCO2 ABG pO2 ABG HCO3 ABG O2 Content ABG Base Excess ABG Methemoglobin Raymon Test Hemoglobin Carboxyhemoglobin O2 Delivery Device Vent Setting Inspired O2 Critical Value Sodium Potassium Chloride Carbon Dioxide Anion Gap BUN Creatinine Estimated GFR POC Glucose 225 H 193 H 174 H Random Glucose Calcium Prot Corrected Calcium Phosphorus Magnesium Total Bilirubin AST ALT Alkaline Phosphatase Total Protein Albumin 07/07/18 07/07/18 07/07/18 04:34 04:37 04:38 WBC 14.0 H RBC 2.38 L Hgb 7.1 L Hct 21.4 L MCV 90.2 MCH 29.7 MCHC 32.9 RDW 13.3 Plt Count 69 L MPV 11.1 H Prelim Diff (Auto) Slide review pending Neut % (Auto) 97.3 H Lymph % (Auto) 1.1 L Addison % (Auto) 1.5 Eos % (Auto) 0.0 Baso % (Auto) 0.1 Neut # (Auto) 13.7 H Lymph # (Auto) 0.2 L Addison # (Auto) 0.2 Eos # (Auto) 0.0 Baso # (Auto) 0.0 WBC Differential Manual diff final Seg Neuts % (Manual) 98 H Band Neuts % (Manual) 1 Lymphocytes % (Manual) 1 L Abs Neuts (Manual) 13.9 H Nucleated RBCs/100 WBC 2 H Differential Comment . Platelet Estimate Low L Platelet Morphology Enlarged H Puncture Site Patient Temperature O2 Saturation ABG pH ABG pCO2 ABG pO2 ABG HCO3 ABG O2 Content ABG Base Excess ABG Methemoglobin Raymon Test Hemoglobin Carboxyhemoglobin O2 Delivery Device Vent Setting Inspired O2 Critical Value Sodium Potassium Chloride Carbon Dioxide Anion Gap BUN Creatinine Estimated GFR POC Glucose 259 H 241 H Random Glucose Calcium Prot Corrected Calcium Phosphorus Magnesium Total Bilirubin AST ALT Alkaline Phosphatase Total Protein Albumin 07/07/18 07/07/18 07/07/18 04:38 10:14 12:00 WBC RBC Hgb Hct MCV MCH MCHC RDW Plt Count MPV Prelim Diff (Auto) Neut % (Auto) Lymph % (Auto) Addison % (Auto) Eos % (Auto) Baso % (Auto) Neut # (Auto) Lymph # (Auto) Addison # (Auto) Eos # (Auto) Baso # (Auto) WBC Differential Seg Neuts % (Manual) Band Neuts % (Manual) Lymphocytes % (Manual) Abs Neuts (Manual) Nucleated RBCs/100 WBC Differential Comment Platelet Estimate Platelet Morphology Puncture Site Right radial Patient Temperature 98.6 O2 Saturation 93 ABG pH 7.43 H ABG pCO2 44 H ABG pO2 81 ABG HCO3 29 H ABG O2 Content 10.6 L ABG Base Excess 4.7 H ABG Methemoglobin 1.9 Raymon Test Present Hemoglobin 8.0 L Carboxyhemoglobin 1.1 O2 Delivery Device Ventilator Vent Setting Cpap 5/10ps Inspired O2 35 Critical Value No Sodium 148 H Potassium 3.8 Chloride 111 H Carbon Dioxide 31.6 Anion Gap 5 BUN 31 H Creatinine 0.88 Estimated GFR Greater than 89 POC Glucose 245 H Random Glucose 224 H Calcium 7.2 L* Prot Corrected Calcium 8.4 L Phosphorus 2.8 Magnesium 2.1 Total Bilirubin 0.4 AST 31 ALT 45 Alkaline Phosphatase 49 Total Protein 4.9 L D Albumin 2.4 L 07/07/18 07/07/18 13:10 17:45 WBC RBC Hgb Hct MCV MCH MCHC RDW Plt Count MPV Prelim Diff (Auto) Neut % (Auto) Lymph % (Auto) Addison % (Auto) Eos % (Auto) Baso % (Auto) Neut # (Auto) Lymph # (Auto) Addison # (Auto) Eos # (Auto) Baso # (Auto) WBC Differential Seg Neuts % (Manual) Band Neuts % (Manual) Lymphocytes % (Manual) Abs Neuts (Manual) Nucleated RBCs/100 WBC Differential Comment Platelet Estimate Platelet Morphology Puncture Site Patient Temperature O2 Saturation ABG pH ABG pCO2 ABG pO2 ABG HCO3 ABG O2 Content ABG Base Excess ABG Methemoglobin Raymon Test Hemoglobin Carboxyhemoglobin O2 Delivery Device Vent Setting Inspired O2 Critical Value Sodium Potassium Chloride Carbon Dioxide Anion Gap BUN Creatinine Estimated GFR POC Glucose 244 H 144 H Random Glucose Calcium Prot Corrected Calcium Phosphorus Magnesium Total Bilirubin AST ALT Alkaline Phosphatase Total Protein Albumin Microbiology 07/02/18 05:41 Blood - Peripheral Aerobic Blood Culture - Final No growth in 5 days 07/02/18 05:41 Blood - Peripheral Anaerobic Blood Culture - Final No growth in 5 days 07/02/18 05:47 Blood - Peripheral Aerobic Blood Culture - Final No growth in 5 days 07/02/18 05:47 Blood - Peripheral Anaerobic Blood Culture - Final No growth in 5 days - Imaging Impressions Chest X-Ray 07/07/18 07:12 CONCLUSION: Minimal bibasilar densities likely atelectasis. Abdomen X-Ray 07/07/18 07:13 CONCLUSION: Gaseous distention of multiple bowel loops has improved since previous study. <Ann Keith - Last Filed: 07/07/18 18:13> Assessment and Plan - Plan Abdominal distention/ileus No output from rectal tube, this was Dced, intraabdominal pressure in rising . Abdomen firm distended KUB 07/05 No significant interval change with persistent diffuse air-filled distention of the colon suggesting ileus. Abdominal pressure is rising per nurse CT abdomen and pelvis 07/02/18 revealed the following-- : Colonic distention most likely representing moderate adynamic ileus. However, distal sigmoid colon is decompressed and a sigmoid stricture is conceivable but considered less likely. Apparent mild proctitis. Clinical surveillance and follow-up CT recommended. 07/02/2018 colonoscopy diagnostic revealed the following-- Colon the sigmoid was clear then there is significant amount of stool in the descending colon transverse colon and part of the sigmoid consistent with stool impaction, disimpaction with fluid as much as possible. Rectum normal. 07/07/2018 Status post decompressive colonoscopy Abdominal x-ray revealed the following findings: There is less gaseous distention of multiple bowel loops. No abnormal masses, calcifications, or organomegaly is seen. The osseous structures are unremarkable. Plan -N.p.o. -NG to low intermittent wall suction -Continue bowel regimen -Reglan -PPI -IV hydration -Supportive care -Further recommendations to follow This patient has been seen by myself and Dr. Keith and this note is written on her behalf - Attending Attestation Dr. Keith <Carlene Young - Last Filed: 07/07/18 14:48> - Attending Attestation seen, examined agree with above <Ann Keith - Last Filed: 07/07/18 18:13>
--- NOTE | 2018-07-07 19:09 | P.PNPL ---
Subjective Interval history: 73 YOAA male with COPD, 02 dependent Follows at [facility] Admitted with AMS, COPD exac Extubated On NC, denies sob Abd distended but denies abd pain Physical Exam Vital signs: Vital Signs 07/06/18 19:30 07/06/18 20:00 07/06/18 20:29 Temperature 98.6 F Pulse Rate 85 86 Respiratory Rate 20 20 20 Blood Pressure 123/56 L 129/58 L Pulse Oximetry 97 97 97 07/06/18 20:30 07/06/18 20:32 07/06/18 21:00 Temperature Pulse Rate 92 H 93 H 88 Respiratory Rate 20 22 21 Blood Pressure 113/58 L 121/60 Pulse Oximetry 97 99 07/06/18 21:30 07/06/18 22:00 07/06/18 22:30 Temperature Pulse Rate 90 88 90 Respiratory Rate 21 20 21 Blood Pressure 135/62 92/60 L 90/60 L Pulse Oximetry 99 98 98 07/06/18 23:00 07/06/18 23:30 07/06/18 23:50 Temperature Pulse Rate 86 87 85 Respiratory Rate 20 19 18 Blood Pressure 119/65 116/66 Pulse Oximetry 99 99 100 07/07/18 00:00 07/07/18 00:30 07/07/18 01:00 Temperature 99.3 F Pulse Rate 86 82 80 Respiratory Rate 20 19 18 Blood Pressure 121/65 129/60 122/61 Pulse Oximetry 100 100 100 07/07/18 01:30 07/07/18 02:00 07/07/18 02:30 Temperature Pulse Rate 79 80 85 Respiratory Rate 18 18 18 Blood Pressure 112/58 L 115/55 L 110/63 Pulse Oximetry 100 100 100 07/07/18 03:00 07/07/18 03:30 07/07/18 04:00 Temperature Pulse Rate 79 79 79 Respiratory Rate 18 18 18 Blood Pressure 101/56 L 107/59 L Pulse Oximetry 100 100 100 07/07/18 04:01 07/07/18 04:30 07/07/18 04:44 Temperature Pulse Rate 78 75 Respiratory Rate 18 18 18 Blood Pressure 110/56 L 108/60 Pulse Oximetry 100 100 100 07/07/18 04:45 07/07/18 05:00 07/07/18 05:30 Temperature Pulse Rate 76 78 76 Respiratory Rate 18 18 18 Blood Pressure 110/59 L 102/58 L Pulse Oximetry 100 100 07/07/18 06:00 07/07/18 08:00 07/07/18 08:20 Temperature 99.3 F Pulse Rate 76 88 93 H Respiratory Rate 18 19 23 Blood Pressure 111/61 118/59 L Pulse Oximetry 100 07/07/18 08:21 07/07/18 10:00 07/07/18 11:19 Temperature Pulse Rate 91 H 91 H Respiratory Rate 18 22 Blood Pressure Pulse Oximetry 100 99 07/07/18 12:00 07/07/18 13:39 07/07/18 14:00 Temperature 98.9 F Pulse Rate 79 92 H Respiratory Rate 18 Blood Pressure 119/57 L Pulse Oximetry 96 07/07/18 14:38 07/07/18 16:00 07/07/18 18:00 Temperature 98.7 F Pulse Rate 98 H 110 H 107 H Respiratory Rate 20 26 H Blood Pressure 138/60 Pulse Oximetry 94 L Intake & Output 07/07/18 07/07/18 07/08/18 06:59 18:59 06:59 Intake Total 1090 / 1090 100 / 100 Output Total 1150 / 1150 Balance -60 / -60 100 / 100 Weight 93 kg Intake: IV 590 / 590 100 / 100 Diprivan 1000 mg/100 ml Inj 1, 190 / 190 000 mg In 100 ml @ 5 MCG/KG/MIN 2.64 mls/hr IV.CONT TITRATE PRN Rx#:[id number] Maxipime Inj 2,000 MG In NS Inj 200 / 200 100 ML @ 200 mls/hr IV.SIG Q8H WOLF Rx#:[id number] Flagyl 500 MG Inj 100 ML @ 100 200 / 200 100 / 100 mls/hr IV.SIG Q8H WOLF Rx#: [id number] Water Bolus Amount 500 / 500 Output: Urine Amount (Catheter) 1150 / 1150 Indwelling Urethral Catheter 1150 / 1150 Other: Date of Last Bowel Movement 07/06/18 07/07/18 GENERAL: Obese AA male, mild sob SKIN: Warm and dry. HEAD: Normocephalic. EYES: No scleral icterus. No injection or drainage. NECK: Supple, trachea midline. No JVD or lymphadenopathy. CARDIOVASCULAR: Regular rate and rhythm without murmurs, gallops, or rubs. RESPIRATORY: Breath sounds equal bilaterally. No accessory muscle use. GASTROINTESTINAL: Abdomen soft, non-tender, distended. MUSCULOSKELETAL: No cyanosis, or edema. BACK: Nontender without obvious deformity. No CVA tenderness. - Urinary Catheter Management Indwelling Urethral Catheter Cath placed during this visit: yes Reason for continuing: Hourly intake/output Insertion date: 06/27/18 Insertion time: 16:00 Assessment and Plan - Plan IMPRESSION: Hypercapnoic RF, Reintubated COPD exac AMS improved 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 PLAN: Aerosol nebs Cont Abx Supplement 02 Monitor BS Argatroban drip DW sister at BS
--- NOTE | 2018-07-07 19:57 | P.PNONC ---
Subjective Interval history: Extubated. Resting comfortably in bed. No distress. Sister at bedside. Objective Vital Signs/Intake & Output: Vital Signs 07/06/18 20:00 07/06/18 20:29 07/06/18 20:30 Temperature 98.6 F Pulse Rate 86 92 H Respiratory Rate 20 20 20 Blood Pressure 129/58 L 113/58 L Pulse Oximetry 97 97 97 07/06/18 20:32 07/06/18 21:00 07/06/18 21:30 Temperature Pulse Rate 93 H 88 90 Respiratory Rate 22 21 21 Blood Pressure 121/60 135/62 Pulse Oximetry 99 99 07/06/18 22:00 07/06/18 22:30 07/06/18 23:00 Temperature Pulse Rate 88 90 86 Respiratory Rate 20 21 20 Blood Pressure 92/60 L 90/60 L 119/65 Pulse Oximetry 98 98 99 07/06/18 23:30 07/06/18 23:50 07/07/18 00:00 Temperature 99.3 F Pulse Rate 87 85 86 Respiratory Rate 19 18 20 Blood Pressure 116/66 121/65 Pulse Oximetry 99 100 100 07/07/18 00:30 07/07/18 01:00 07/07/18 01:30 Temperature Pulse Rate 82 80 79 Respiratory Rate 19 18 18 Blood Pressure 129/60 122/61 112/58 L Pulse Oximetry 100 100 100 07/07/18 02:00 07/07/18 02:30 07/07/18 03:00 Temperature Pulse Rate 80 85 79 Respiratory Rate 18 18 18 Blood Pressure 115/55 L 110/63 101/56 L Pulse Oximetry 100 100 100 07/07/18 03:30 07/07/18 04:00 07/07/18 04:01 Temperature Pulse Rate 79 79 78 Respiratory Rate 18 18 18 Blood Pressure 107/59 L 110/56 L Pulse Oximetry 100 100 100 07/07/18 04:30 07/07/18 04:44 07/07/18 04:45 Temperature Pulse Rate 75 76 Respiratory Rate 18 18 18 Blood Pressure 108/60 Pulse Oximetry 100 100 07/07/18 05:00 07/07/18 05:30 07/07/18 06:00 Temperature Pulse Rate 78 76 76 Respiratory Rate 18 18 18 Blood Pressure 110/59 L 102/58 L 111/61 Pulse Oximetry 100 100 100 07/07/18 08:00 07/07/18 08:20 07/07/18 08:21 Temperature 99.3 F Pulse Rate 88 93 H Respiratory Rate 19 23 18 Blood Pressure 118/59 L Pulse Oximetry 100 07/07/18 10:00 07/07/18 11:19 07/07/18 12:00 Temperature 98.9 F Pulse Rate 91 H 91 H 79 Respiratory Rate 22 18 Blood Pressure 119/57 L Pulse Oximetry 99 07/07/18 13:39 07/07/18 14:00 07/07/18 14:38 Temperature Pulse Rate 92 H 98 H Respiratory Rate 20 Blood Pressure Pulse Oximetry 96 07/07/18 16:00 07/07/18 18:00 07/07/18 19:49 Temperature 98.7 F Pulse Rate 110 H 107 H 110 H Respiratory Rate 26 H 18 Blood Pressure 138/60 Pulse Oximetry 94 L 96 Intake & Output 07/07/18 07/07/18 07/08/18 06:59 18:59 06:59 Intake Total 1090 / 1090 950 / 950 900 / 900 Output Total 1150 / 1150 2200 / 2200 1550 / 1550 Balance -60 / -60 -1250 / -1250 -650 / -650 Weight 93 kg Intake: IV 590 / 590 100 / 100 100 / 100 Diprivan 1000 mg/100 ml Inj 1, 190 / 190 000 mg In 100 ml @ 5 MCG/KG/MIN 2.64 mls/hr IV.CONT TITRATE PRN Rx#:[id number] Maxipime Inj 2,000 MG In NS Inj 200 / 200 100 ML @ 200 mls/hr IV.SIG Q8H ANTOINE Rx#:[id number] Flagyl 500 MG Inj 100 ML @ 100 200 / 200 100 / 100 100 / 100 mls/hr IV.SIG Q8H ANTOINE Rx#: [id number] Oral 400 / 400 400 / 400 Tube Feeding 0 / 0 0 / 0 Tube Irrigant 200 / 200 200 / 200 Water Bolus Amount 500 / 500 200 / 200 200 / 200 Anesthesia Amount 50 / 50 Output: Urine 350 / 350 Stool 500 / 500 500 / 500 Urine/Stool Mix 0 / 0 0 / 0 Urine Amount (Catheter) 1150 / 1150 1150 / 1150 850 / 850 Indwelling Urethral Catheter 1150 / 1150 1150 / 1150 850 / 850 Gastric Drainage 200 / 200 200 / 200 Left Nare Nasogastric Tube 200 / 200 200 / 200 Other: Date of Last Bowel Movement 07/06/18 07/07/18 07/07/18 # Bowel Movements 0 0 # Incontinent Bowel Movements 1 1 Result Diagrams: 07/07/18 04:38 07/07/18 04:38 Laboratory Results: Laboratory Results - last 24 hr 07/06/18 07/06/18 07/07/18 20:20 20:21 00:03 WBC RBC Hgb Hct MCV MCH MCHC RDW Plt Count MPV Prelim Diff (Auto) Neut % (Auto) Lymph % (Auto) [place] % (Auto) Eos % (Auto) Baso % (Auto) Neut # (Auto) Lymph # (Auto) [place] # (Auto) Eos # (Auto) Baso # (Auto) WBC Differential Seg Neuts % (Manual) Band Neuts % (Manual) Lymphocytes % (Manual) Abs Neuts (Manual) Nucleated RBCs/100 WBC Differential Comment Platelet Estimate Platelet Morphology Puncture Site Patient Temperature O2 Saturation ABG pH ABG pCO2 ABG pO2 ABG HCO3 ABG O2 Content ABG Base Excess ABG Methemoglobin Ray[place] Test Hemoglobin Carboxyhemoglobin O2 Delivery Device Vent Setting Inspired O2 Critical Value Sodium Potassium Chloride Carbon Dioxide Anion Gap BUN Creatinine Estimated GFR POC Glucose 225 H 193 H 174 H Random Glucose Calcium Prot Corrected Calcium Phosphorus Magnesium Total Bilirubin AST ALT Alkaline Phosphatase Total Protein Albumin 07/07/18 07/07/18 07/07/18 04:34 04:37 04:38 WBC 14.0 H RBC 2.38 L Hgb 7.1 L Hct 21.4 L MCV 90.2 MCH 29.7 MCHC 32.9 RDW 13.3 Plt Count 69 L MPV 11.1 H Prelim Diff (Auto) Slide review pending Neut % (Auto) 97.3 H Lymph % (Auto) 1.1 L [place] % (Auto) 1.5 Eos % (Auto) 0.0 Baso % (Auto) 0.1 Neut # (Auto) 13.7 H Lymph # (Auto) 0.2 L [place] # (Auto) 0.2 Eos # (Auto) 0.0 Baso # (Auto) 0.0 WBC Differential Manual diff final Seg Neuts % (Manual) 98 H Band Neuts % (Manual) 1 Lymphocytes % (Manual) 1 L Abs Neuts (Manual) 13.9 H Nucleated RBCs/100 WBC 2 H Differential Comment . Platelet Estimate Low L Platelet Morphology Enlarged H Puncture Site Patient Temperature O2 Saturation ABG pH ABG pCO2 ABG pO2 ABG HCO3 ABG O2 Content ABG Base Excess ABG Methemoglobin Ray[place] Test Hemoglobin Carboxyhemoglobin O2 Delivery Device Vent Setting Inspired O2 Critical Value Sodium Potassium Chloride Carbon Dioxide Anion Gap BUN Creatinine Estimated GFR POC Glucose 259 H 241 H Random Glucose Calcium Prot Corrected Calcium Phosphorus Magnesium Total Bilirubin AST ALT Alkaline Phosphatase Total Protein Albumin 07/07/18 07/07/18 07/07/18 04:38 10:14 12:00 WBC RBC Hgb Hct MCV MCH MCHC RDW Plt Count MPV Prelim Diff (Auto) Neut % (Auto) Lymph % (Auto) [place] % (Auto) Eos % (Auto) Baso % (Auto) Neut # (Auto) Lymph # (Auto) [place] # (Auto) Eos # (Auto) Baso # (Auto) WBC Differential Seg Neuts % (Manual) Band Neuts % (Manual) Lymphocytes % (Manual) Abs Neuts (Manual) Nucleated RBCs/100 WBC Differential Comment Platelet Estimate Platelet Morphology Puncture Site Right radial Patient Temperature 98.6 O2 Saturation 93 ABG pH 7.43 H ABG pCO2 44 H ABG pO2 81 ABG HCO3 29 H ABG O2 Content 10.6 L ABG Base Excess 4.7 H ABG Methemoglobin 1.9 Raymon Test Present Hemoglobin 8.0 L Carboxyhemoglobin 1.1 O2 Delivery Device Ventilator Vent Setting Cpap 5/10ps Inspired O2 35 Critical Value No Sodium 148 H Potassium 3.8 Chloride 111 H Carbon Dioxide 31.6 Anion Gap 5 BUN 31 H Creatinine 0.88 Estimated GFR Greater than 89 POC Glucose 245 H Random Glucose 224 H Calcium 7.2 L* Prot Corrected Calcium 8.4 L Phosphorus 2.8 Magnesium 2.1 Total Bilirubin 0.4 AST 31 ALT 45 Alkaline Phosphatase 49 Total Protein 4.9 L D Albumin 2.4 L 07/07/18 07/07/18 13:10 17:45 WBC RBC Hgb Hct MCV MCH MCHC RDW Plt Count MPV Prelim Diff (Auto) Neut % (Auto) Lymph % (Auto) [place] % (Auto) Eos % (Auto) Baso % (Auto) Neut # (Auto) Lymph # (Auto) [place] # (Auto) Eos # (Auto) Baso # (Auto) WBC Differential Seg Neuts % (Manual) Band Neuts % (Manual) Lymphocytes % (Manual) Abs Neuts (Manual) Nucleated RBCs/100 WBC Differential Comment Platelet Estimate Platelet Morphology Puncture Site Patient Temperature O2 Saturation ABG pH ABG pCO2 ABG pO2 ABG HCO3 ABG O2 Content ABG Base Excess ABG Methemoglobin Ray[place] Test Hemoglobin Carboxyhemoglobin O2 Delivery Device Vent Setting Inspired O2 Critical Value Sodium Potassium Chloride Carbon Dioxide Anion Gap BUN Creatinine Estimated GFR POC Glucose 244 H 144 H Random Glucose Calcium Prot Corrected Calcium Phosphorus Magnesium Total Bilirubin AST ALT Alkaline Phosphatase Total Protein Albumin Culture Results: Microbiology 07/02/18 05:41 Aerobic Blood Culture - Final Blood - Peripheral No growth in 5 days Anaerobic Blood Culture - Final No growth in 5 days 07/02/18 05:47 Aerobic Blood Culture - Final Blood - Peripheral No growth in 5 days Anaerobic Blood Culture - Final No growth in 5 days 07/02/18 22:00 Gram Stain - Final Sputum - Endotracheal Sputum Culture - Final Heavy growth normal respiratory justyn Imaging Studies: Impressions Chest X-Ray 07/07/18 07:12 CONCLUSION: Minimal bibasilar densities likely atelectasis. Abdomen X-Ray 07/07/18 07:13 CONCLUSION: Gaseous distention of multiple bowel loops has improved since previous study. Medications: Active Medications Generic Name Dose Route Start Last Admin Trade Name Freq PRN Reason Stop Dose Admin Acetaminophen 650 mg 06/20/18 02:11 07/01/18 15:05 Tylenol PO 650 mg Q4H PRN Administration Temp > 100.4 Albuterol 1 ampul 06/26/18 12:00 07/07/18 19:49 Duoneb Neb (Antoine) NEB 1 ampul Q4HR NEB ANTOINE Administration Artificial Tears 1 drop 07/02/18 16:00 07/07/18 10:05 Tears Naturale Opth Drops EACH EYE 1 drop Q8H ANTOINE Administration Bisacodyl 10 mg 06/24/18 15:15 07/07/18 10:09 Dulcolax Supp RECTAL 10 mg DAILY ANTOINE Administration Budesonide 0.5 mg 06/26/18 20:00 07/07/18 19:49 Pulmocort Respule Neb NEB 0.5 mg Q12HR NEB ANTOINE Administration Chlorhexidine Gluconate 15 ml 06/26/18 20:00 07/07/18 10:02 Peridex 0.12% Oral Kit OROPHARYNG 15 ml BID@0800,2000 ANTOINE Administration Diltiazem HCl 60 mg 06/30/18 09:00 07/07/18 13:26 Cardizem PO 60 mg QID ANTOINE Administration Duloxetine HCl 20 mg 06/23/18 18:00 06/28/18 09:09 Cymbalta PO Not Given DAILY ANTOINE Famotidine 20 mg 07/01/18 18:00 07/07/18 06:33 Pepcid Pf Inj IV.PUSH 20 mg Q12H ANTOINE Administration Hydralazine HCl 50 mg 06/23/18 18:00 07/07/18 13:26 Apresoline PO 50 mg TID ANTOINE Administration Potassium Chloride 40 meq in 100 mls @ 25 mls/hr 06/28/18 06:59 07/04/18 09: 15 Kcl 40 Meq Premix Inj IV.SIG Infused Q2H PRN Infusion For Potassium 2.8 - 3.2 mEq/L Cefepime HCl 2,000 mg/ Sodium 100 mls @ 200 mls/hr 07/02/18 05:00 07/07/18 19 :39 Chloride IV.SIG 200 mls/hr Q8H ANTOINE Infusion Metronidazole/Sodium Chloride 100 mls @ 100 mls/hr 07/02/18 06:00 07/07/18 19 :40 Flagyl 500 Mg Inj IV.SIG Infused Q8H ANTOINE Infusion Dextrose 1,000 mls @ 42 mls/hr 07/05/18 08:00 07/06/18 08:32 D5w Inj IV.CONT Not Given .[id number] [facility] Insulin Human Regular 0 units 06/28/18 08:00 07/07/18 19:38 Novolin R Correctional Sugar Inj SQ Not Given Q4HR [facility] Protocol Lactulose 30 ml 07/03/18 13:00 07/07/18 13:26 Lactulose Liq PO 30 ml QID [facility] Administration Methylprednisolone Sodium Succinate 40 mg 07/04/18 20:00 07/07/18 10:03 Solumedrol Inj IV.PUSH 40 mg Q12H ANTOINE Administration Metoclopramide HCl 10 mg 07/05/18 12:00 07/07/18 10:05 Reglan Inj IV.PUSH 07/08/18 11:59 10 mg BID ANTOINE Administration Metoprolol Tartrate 2.5 mg 06/27/18 15:08 07/01/18 01:26 Lopressor Inj IV.PUSH 2.5 mg Q6H PRN Administration HEART RATE GREATER THAN 115 Miscellaneous Medication 1 each 06/26/18 12:00 07/07/18 13:26 OROPHARYNG 1 each 0000,0400,1200,1600 ANTOINE Administration Pantoprazole Sodium 20 mg 06/20/18 09:00 06/28/18 09:09 Protonix PO Not Given DAILY ANTOINE Potassium Bicarb/Potassium Chloride 50 meq 06/28/18 06:59 07/04/18 17:35 K-Lyte Cl Eff PO 50 meq UNSCH PRN Administration For Potassium 3.3 - 3.5 mEq/L Potassium Phosphate 2,000 mg 06/28/18 06:59 07/05/18 23:17 K-Phos Original PO 2,000 mg Q4H PRN Administration Phosphorus Less Than 2.5 mg/dL Senna/Docusate Sodium 1 tab 06/20/18 09:00 07/07/18 10:05 Maria Guadalupe-Colace PO 1 tab BID ANTOINE Administration Simethicone 80 mg 06/24/18 18:30 07/07/18 13:26 Mylicon Chew PO 80 mg PCHS ANTOINE Administration Sodium Chloride 2 ml 06/20/18 09:00 07/07/18 10:06 Ns Flush IV.FLUSH 2 ml BID ANTOINE Administration Sodium Chloride 2 ml 06/20/18 02:09 07/03/18 05:01 Ns Flush IV.FLUSH 2 ml PRN PRN Administration FLUSH AFTER USING IV ACCESS Sodium Chloride 0 ml 07/03/18 09:00 07/07/18 10:07 Ns Flush IV.FLUSH 8 ml DAILY ANTOINE Administration Sterile Water 250 ml 07/05/18 08:00 07/07/18 13:39 Free Water G-TUBE 250 ml Q6H ANTOINE Administration Whey 1 packet 06/28/18 09:00 07/07/18 19:37 Beneprotein Powder G-TUBE Not Given TID ANTOINE Objective Remarks: GENERAL: well developed well nourished man no distress SKIN: Warm and dry. HEAD: Normocephalic. EYES: No scleral icterus. No injection or drainage. NECK: Supple, trachea midline. No JVD or lymphadenopathy. LYMPHATIC: No adenopathy. CARDIOVASCULAR: Regular rate and rhythm without murmurs. RESPIRATORY: No accessory muscle use. GASTROINTESTINAL: Abdomen soft, non-tender, nondistended. EXTREMITIES: No cyanosis, or edema. MUSCULOSKELETAL: Adequate muscle tone. NEUROLOGICAL: No obvious focal deficit. Awake, alert, and oriented x3. PSYCHIATRIC: Appropriate mood and affect; insight and judgment normal. Assessment/Plan - Plan 1. TCP: fibrinogen within normal limits, coags WNL. No evidence of DIC. 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 Duplex ultrasound of bilateral lower extremity negative , no PE. No upper extremity thormbosis. Smear with limited fragments, LDH slighly elevated, haptoglobin WNL. No evidence of TMA/hemolysis. No evidence of hypersplenism, liver disease. Early cells (metamyelocytes) present on differential, however this can be presents in illness/steroids. will continue to monitor. Platelets uptrending. 2. Leukocytosis: reactive. steroids, on abx infections 3. Anemia: critical illness iatrogenic anemia of inflammation, continue to monitor. 4. 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 Discontinued argatroban gtt.
[2018-07-07] MEDS: Dextrose 5% in Water Inj 1,000 ML IV.CONT SCH ×2 (21:34→23:28)
[2018-07-08] MEDS: Oral Hygiene Kit OROPHARYNG SCH ×4 (01:09→19:26)
[2018-07-08] MEDS: Artificial Tears Opth Drops 15 ML Bottle EACH EYE SCH ×3 (01:10→19:26)
[2018-07-08 01:49] LABS: Alanine Aminotransferase 50 U/L (12-78); Albumin 2.7 g/dL (3.4-5.0); Anion Gap 8 meq/L (5-15); Aspartate Aminotransferase 39 U/L (15-37); Blood Urea Nitrogen 31 mg/dL (7-18); Calcium 7.7 mg/dL (8.5-10.1); Carbon Dioxide 29.9 meq/L (21.0-32.0); Chloride 111 meq/L (98-107); Glomerular Filtration Rate 76 mL/min (>89); Glucose,Random 185 mg/dL (74-106); Phosphorus 2.7 mg/dL (2.5-4.9); Potassium 3.8 meq/L (3.5-5.1); Sodium 149 meq/L (136-145)
[2018-07-08 01:52] LABS: Alkaline Phosphatase 55 U/L (45-117); Total Protein 5.4 g/dL (6.4-8.2)
[2018-07-08] MEDS: Insulin NovoLIN Regular Correctional Sugar Inj SQ SCH ×5 (03:49→20:39)
[2018-07-08 04:47] LABS: Baso % (Auto) 0.2 % (0.0-2.0); Hematocrit 23.2 % (39.0-51.0); Hemoglobin 7.5 gm/dL (13.0-17.0); Lymph # (Auto) 0.2 th/mm3 (1.0-4.8); Lymph % (Auto) 0.9 % (9.0-44.0); Mean Corpuscular HGB Conc 32.4 % (32.0-36.0); Mean Corpuscular Hemoglobin 29.6 pg (27.0-34.0); Mean Corpuscular Volume 91.6 fL (80.0-100.0); Mean Platelet Volume 10.7 fL (7.0-11.0); Mono # (Auto) 0.3 th/mm3 (0.0-0.9); Mono % (Auto) 1.9 % (0.0-8.0); Neut # (Auto) 18.2 th/mm3 (1.8-7.7); Platelet Count 67 th/mm3 (150-450); Red Blood Count 2.54 mil/mm3 (4.50-5.90); Red Cell Distribution Width 13.4 % (11.6-17.2); White Blood Count 18.7 th/mm3 (4.0-11.0)
[2018-07-08 04:56] LABS: Magnesium 1.9 mg/dL (1.5-2.5); Phosphorus 2.9 mg/dL (2.5-4.9)
[2018-07-08] MEDS: Famotidine PF Inj 20 MG/2 ML Vial IV.PUSH SCH ×2 (05:28→19:29)
--- NOTE | 2018-07-08 07:10 | P.PNCC ---
Subjective Subjective Remarks/Hospital Course: Mr. Curry is a 73-year-old -[place] male with past medical history significant for COPD on 3 L nasal cannula, hypertension, hyperlipidemia and anxiety who was admitted to the hospitalist service on 06/19/2018 for worsening shortness of breath due to COPD exacerbation. He was treated with IV Solu- Medrol, IV antibiotics, breathing treatments gradually improved. Patient was also complaining about dyspepsia and underwent EGD by GI yesterday. Per report the EGD was normal but patient developed worsening shortness of breath and COPD exacerbation postprocedure, possibly from aspiration after sedated. Two ABGs done yesterday showed hypercapnic respiratory failure second 1 was on BiPAP and this was improved with pH 7.3 with PCO2 of 74. Patient remained on BiPAP overnight however was noticed to be lethargic today a.m., stat ABG showed pH of 7.21 PCO2 110 PO2 88 while on BiPAP. Patient was lethargic intermittently dozing off due to CO2 narcosis. Critical care medicine was consulted and I immediately evaluated the patient. Patient had obviously failed BiPAP I proceeded with endotracheal intubation placed on mechanical ventilation. Postintubation I have ordered single dose of Solu-Medrol 125 mg x1 continue Solu -Medrol 60 every 8, discontinue ceftriaxone and start cefepime 2 g IV every 8 hours continue azithromycin. Add budesonide inhaled, placed on scheduled DuoNeb every 4 hours and as needed. 06/27: Patient was intubated yesterday for severe hypercapnic respiratory failure. Currently remains intubated sedated and intubated remains diminished bilaterally. Heavily sedated for ventilator synchrony 06/28: Urine output significantly improved with fluid resuscitation. Creat down trending now 2 from 2.3, UO >3.3 L. Remains intubated sedated. Will initiate daily sedation vacation and CPAP trials 06/29: More awake today tolerating CPAP trials intermittently follows commands but gets agitated/frustrated fast. Urine output remains excellent creatinine 1.4. However sodium increasing 158 today. 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 Due to hypoglycemia will change to quarter normal saline at 150 mL/h repeat CMP in the afternoon 06/30 Patient was extubated yesterday. Awake 07/01 Patient is lying in bed in NAD. T: 100.5 07/02: Intubated early this morning due to acute hypoxic respiratory failure. Central line placed due to hypotension. Plan for GI perform endoscopic decompression of this large bowel today. Arousable and does follow commands. Placed on argatroban SUBJECTIVE: 07/03: Currently, intubated with borderline blood pressure. Central line placed yesterday due to hypotension. Did not move bowels despite 1 L of fluid from colonoscopy yesterday and multiple laxatives provided. See orders for additional laxatives today. Might need neostigmine. 07/04 Patient remains intubated and sedated with Diprivan. Given Neostigmine last night. KUB this morning showed colonic ileus. Afebrile. On Argatroban. 07/05 No events overnight, sedated with Diprivan and intubated. Off Argatroban. 07/06 Patient remains intubated and sedated. Afebrile. 07/07 Patient remains intubated, s/p decompressive colonoscopy yesterday. Awake. 07/08 Patient s/p extubation yesterday. Awake and alert. Objective Vital Signs / I&O: Vital Signs 07/07/18 08:00 07/07/18 08:20 07/07/18 08:21 Temperature 99.3 F Pulse Rate 88 93 H Respiratory Rate 19 23 18 Blood Pressure 118/59 L Pulse Oximetry 100 07/07/18 10:00 07/07/18 11:19 07/07/18 12:00 Temperature 98.9 F Pulse Rate 91 H 91 H 79 Respiratory Rate 22 18 Blood Pressure 119/57 L Pulse Oximetry 99 07/07/18 13:39 07/07/18 14:00 07/07/18 14:38 Temperature Pulse Rate 92 H 98 H Respiratory Rate 20 Blood Pressure Pulse Oximetry 96 07/07/18 16:00 07/07/18 18:00 07/07/18 19:49 Temperature 98.7 F Pulse Rate 110 H 107 H 110 H Respiratory Rate 26 H 18 Blood Pressure 138/60 Pulse Oximetry 94 L 96 07/07/18 20:00 07/07/18 22:00 07/07/18 23:37 Temperature 98.6 F Pulse Rate 109 H 117 H 107 H Respiratory Rate 23 16 Blood Pressure 118/79 Pulse Oximetry 100 07/08/18 00:00 07/08/18 02:00 07/08/18 03:39 Temperature 98.7 F Pulse Rate 109 H 98 H 115 H Respiratory Rate 22 16 Blood Pressure 142/70 H Pulse Oximetry 97 07/08/18 04:00 07/08/18 06:00 Temperature 98.5 F Pulse Rate 111 H 100 H Respiratory Rate 24 Blood Pressure 130/83 Pulse Oximetry 98 Intake & Output 07/07/18 07/08/18 07/08/18 18:59 06:59 18:59 Intake Total 950 / 950 2800 / 2800 Output Total 2200 / 2200 2325 / 2325 Balance -1250 / -1250 475 / 475 Weight 91.5 kg Intake: IV 100 / 100 1500 / 1500 D5W Inj 1,000 ML @ 42 mls/hr IV 1000 / 1000 .CONT .[id number] WOLF Rx#:[id number] Maxipime Inj 2,000 MG In NS Inj 200 / 200 100 ML @ 200 mls/hr IV.SIG Q8H WOLF Rx#:[id number] Flagyl 500 MG Inj 100 ML @ 100 100 / 100 300 / 300 mls/hr IV.SIG Q8H WOLF Rx#: [id number] Oral 400 / 400 900 / 900 Tube Feeding 0 / 0 0 / 0 Tube Irrigant 200 / 200 200 / 200 Water Bolus Amount 200 / 200 200 / 200 Anesthesia Amount 50 / 50 Output: Urine 350 / 350 Stool 500 / 500 500 / 500 Urine/Stool Mix 0 / 0 0 / 0 Urine Amount (Catheter) 1150 / 1150 1625 / 1625 Indwelling Urethral Catheter 1150 / 1150 1625 / 1625 Gastric Drainage 200 / 200 200 / 200 Left Nare Nasogastric Tube 200 / 200 200 / 200 Other: Date of Last Bowel Movement 07/07/18 07/08/18 # Bowel Movements 0 0 # Incontinent Bowel Movements 1 1 Result Diagrams: 07/08/18 04:00 07/08/18 01:04 Other Results: Laboratory Results - last 12 hr 07/07/18 07/07/18 07/08/18 19:58 23:23 01:04 WBC RBC Hgb Hct MCV MCH MCHC RDW Plt Count MPV Prelim Diff (Auto) Neut % (Auto) Lymph % (Auto) [place] % (Auto) Eos % (Auto) Baso % (Auto) Neut # (Auto) Lymph # (Auto) [place] # (Auto) Eos # (Auto) Baso # (Auto) Differential Comment Sodium 149 H Potassium 3.8 Chloride 111 H Carbon Dioxide 29.9 Anion Gap 8 BUN 31 H Creatinine 1.15 Estimated GFR 76 L POC Glucose 123 H 182 H Random Glucose 185 H Calcium 7.7 L Phosphorus 2.7 Magnesium 2.0 Total Bilirubin 0.6 AST 39 H ALT 50 Alkaline Phosphatase 55 Total Protein 5.4 L Albumin 2.7 L 07/08/18 07/08/18 07/08/18 03:42 04:00 04:00 WBC 18.7 H RBC 2.54 L Hgb 7.5 L Hct 23.2 L MCV 91.6 MCH 29.6 MCHC 32.4 RDW 13.4 Plt Count 67 L MPV 10.7 Prelim Diff (Auto) Slide review pending Neut % (Auto) 97.0 H Lymph % (Auto) 0.9 L [place] % (Auto) 1.9 Eos % (Auto) 0.0 Baso % (Auto) 0.2 Neut # (Auto) 18.2 H Lymph # (Auto) 0.2 L [place] # (Auto) 0.3 Eos # (Auto) 0.0 Baso # (Auto) 0.0 Differential Comment . Sodium Potassium Chloride Carbon Dioxide Anion Gap BUN Creatinine Estimated GFR POC Glucose 236 H Random Glucose Calcium Phosphorus 2.9 Magnesium 1.9 Total Bilirubin AST ALT Alkaline Phosphatase Total Protein Albumin Imaging: Abdomen Ultrasound 06/21/18 00:00 CONCLUSION: 1. No ascites is identified within the abdomen. Abdomen/Bladder Ultrasound 06/28/18 00:00 CONCLUSION: 1. Echogenic kidneys characteristic of medical renal disease. No hydronephrosis. Bladder decompressed by [place] Chest CTA 07/02/18 00:00 CONCLUSION: 1. No pulmonary embolus. 2. Diffuse but basilar predominant bilateral airspace disease. 3. Endotracheal and endobronchial secretions are demonstrated. 4. Moderate emphysema. 5. Left ventricular hypertrophy. Venous Doppler Study 07/02/18 00:00 CONCLUSION: 1. Limited, no evidence for thrombosis. Abdomen/Pelvis CT 07/02/18 04:20 CONCLUSION: Colonic distention most likely representing moderate adynamic ileus. However, distal sigmoid colon is decompressed and a sigmoid stricture is conceivable but considered less likely. Apparent mild proctitis. Clinical surveillance and follow-up CT recommended. Chest X-Ray 07/07/18 07:12 CONCLUSION: Minimal bibasilar densities likely atelectasis. Abdomen X-Ray 07/07/18 07:13 CONCLUSION: Gaseous distention of multiple bowel loops has improved since previous study. Objective Remarks: GENERAL: Patient is 73 yo lying in bed in NAD SKIN: Warm and dry. HEAD: Normocephalic. EYES: No scleral icterus. No injection or drainage. NECK: Supple, trachea midline. No JVD or lymphadenopathy. CARDIOVASCULAR: Regular rate and rhythm without murmurs, gallops, or rubs. RESPIRATORY: Distant breath sounds. Few crackles patient bases. Clears with suctioning. GASTROINTESTINAL: Abdomen distended. Protuberant. +BS MUSCULOSKELETAL: No significant peripheral edema. Neuro: Awake and alert Assessment and Plan - Assessment and Plan Plan: ASSESSMENT: Acute hypercapnic respiratory failure Acute COPD exacerbation Altered mental status due to CO2 narcosis Acute kidney injury/failure Hypertension Leukocytosis Hyperglycemia COPD Hypernatremia Colonic ileus PLAN: NEURO: -Monitor neuro status, -Awake and alert RESP: -Continue with oxygen keep sats >92% -Extubated 06/29. Reintubated 07/02 extubated 07/07 -DuoNeb every 4 hours scheduled and as needed -IV Solu-Medrol 40 mg Q12 -Inhaled budesonide -NIPPV PRN for resp distress CV: - Monitor HR and BP keep MAP>65mmHg -Continue with BP meds, Cardizem 60mg Q6,, Hydralazine 50mg TID with holding parameters GI: - Start diet if ok with GI -IV famotidine -CT abd/pelvis 07/02 :Colonic distention most likely representing moderate adynamic ileus. However, distal sigmoid colon is decompressed and a sigmoid stricture is conceivable but considered less likely -GI for decompression 07/02. On docusate sodium/senna 1 tablet twice daily, lactulose 30 cc 4 times daily, GoLYTELY 2 L x1 now. Mineral oil 15 mL x1 now. -KUB 07/04- colonic ileus, -KUB 07/05: No significant interval change with persistent diffuse air-filled distention of the colon suggesting ileus. -GI follow s/p decompressive colonoscopy 07/06, rectal tube to suction -KUB 07/07: Gaseous distention of multiple bowel loops has improved since previous study. FEN/: -Monitor renal function, I/O's, electrolytes replacement per protocol. - IVF D5W@42ml/hr ID: -Antibiotics with cefepime and completed azithromycin. Monitor for signs of infections ( Fever, WBC) -07/02 BC: NGTS, sputum cx 07/02:normal resp justyn HEME: -Monitor CBC, coags, Hep PLT is positive. ANNMARIE negative. Hematology is following. Off argatroban drip ENDO: -Electrolyte replacement per protocol -Sliding scale insulin medium scale PROPH: -Bilateral lower extremity SCDs. PPI , -Doppler US LE negative DVT LINES: -Utilize peripheral IVs, d/c central line Level 2
[2018-07-08 07:39] LABS: Platelet Morphology Normal (Normal)
[2018-07-08] MEDS: MethylPREDNISolone Sod Succinate Inj 40 MG/ML Vial IV.PUSH SCH ×2 (08:40→20:21)
[2018-07-08] MEDS: dilTIAZem 60 MG Tablet PO SCH ×4 (08:43→20:22)
[2018-07-08] MEDS: Chlorhexidine 0.12% Oral Kit 15 ML UDC OROPHARYNG SCH ×2 (08:47→20:21)
[2018-07-08] MEDS: Beneprotein Powder Packet G-TUBE SCH ×3 (08:48→18:28)
[2018-07-08] MEDS: Senna/Docusate Sodium 8.6/50 MG Tablet PO SCH ×2 (08:48→20:22)
[2018-07-08] MEDS: Bisacodyl 10 MG Supp RECTAL SCH (08:52)
[2018-07-08] MEDS: Simethicone 80 MG Chew Tablet PO SCH ×4 (08:53→20:22)
[2018-07-08] MEDS: hydrALAZINE 50 MG Tablet PO SCH ×3 (08:53→22:10)
--- NOTE | 2018-07-08 15:06 | P.PNONC ---
Subjective Interval history: Afebrile. Patient alert and oriented. He reports feeling much better. He was extubated yesterday. Off argatroban drip. Denies chest pain, shortness of breath or bleeding. Denies abdominal pain. Objective Vital Signs/Intake & Output: Vital Signs 07/07/18 16:00 07/07/18 17:01 07/07/18 18:00 Temperature 98.7 F Pulse Rate 110 H 105 H 107 H Respiratory Rate 28 H 26 H 26 H Blood Pressure 151/68 H 166/68 H Pulse Oximetry 94 L 94 L 95 07/07/18 18:01 07/07/18 19:00 07/07/18 19:49 Temperature Pulse Rate 107 H 109 H 110 H Respiratory Rate 25 H 25 H 18 Blood Pressure 115/61 122/63 Pulse Oximetry 95 95 96 07/07/18 20:00 07/07/18 21:00 07/07/18 22:00 Temperature 98.6 F Pulse Rate 109 H 123 H 121 H Respiratory Rate 23 23 25 H Blood Pressure 118/79 106/62 Pulse Oximetry 100 95 92 L 07/07/18 22:01 07/07/18 23:00 07/07/18 23:37 Temperature Pulse Rate 119 H 109 H 107 H Respiratory Rate 25 H 22 16 Blood Pressure 156/70 H 160/110 H Pulse Oximetry 93 L 94 L 07/08/18 00:00 07/08/18 00:01 07/08/18 01:00 Temperature 98.7 F Pulse Rate 109 H 110 H 104 H Respiratory Rate 22 23 10 L Blood Pressure 142/70 H 142/70 H 133/63 Pulse Oximetry 97 96 98 07/08/18 02:00 07/08/18 03:00 07/08/18 03:39 Temperature Pulse Rate 98 H 100 H 115 H Respiratory Rate 16 17 16 Blood Pressure 122/58 L 126/60 Pulse Oximetry 98 99 07/08/18 04:00 07/08/18 05:00 07/08/18 06:00 Temperature 98.5 F Pulse Rate 111 H 102 H 100 H Respiratory Rate 24 18 16 Blood Pressure 130/83 123/58 L 135/70 Pulse Oximetry 98 97 97 07/08/18 07:00 07/08/18 07:50 07/08/18 08:00 Temperature 98.5 F Pulse Rate 97 H 98 H 107 H Respiratory Rate 19 18 23 Blood Pressure 127/63 147/68 H Pulse Oximetry 97 97 100 07/08/18 09:00 07/08/18 10:00 07/08/18 10:01 Temperature Pulse Rate 120 H 108 H 110 H Respiratory Rate 25 H 26 H 21 Blood Pressure 158/79 H 153/116 H Pulse Oximetry 95 97 96 07/08/18 10:02 07/08/18 11:25 07/08/18 12:00 Temperature Pulse Rate 113 H 102 H 108 H Respiratory Rate 23 18 Blood Pressure 136/61 Pulse Oximetry 97 Intake & Output 07/07/18 07/08/18 07/08/18 18:59 06:59 18:59 Intake Total 950 / 950 2800 / 2800 Output Total 2200 / 2200 2325 / 2325 550 / 550 Balance -1250 / -1250 475 / 475 -550 / -550 Weight 91.5 kg Intake: IV 100 / 100 1500 / 1500 D5W Inj 1,000 ML @ 42 mls/hr IV 1000 / 1000 .CONT .[id number] ANTOINE Rx#:[id number] Maxipime Inj 2,000 MG In NS Inj 200 / 200 100 ML @ 200 mls/hr IV.SIG Q8H ANTOINE Rx#:[id number] Flagyl 500 MG Inj 100 ML @ 100 100 / 100 300 / 300 mls/hr IV.SIG Q8H ANTOINE Rx#: [id number] Oral 400 / 400 900 / 900 Tube Feeding 0 / 0 0 / 0 Tube Irrigant 200 / 200 200 / 200 Water Bolus Amount 200 / 200 200 / 200 Anesthesia Amount 50 / 50 Output: Urine 350 / 350 Stool 500 / 500 500 / 500 Urine/Stool Mix 0 / 0 0 / 0 Urine Amount (Catheter) 1150 / 1150 1625 / 1625 550 / 550 Indwelling Urethral Catheter 1150 / 1150 1625 / 1625 550 / 550 Gastric Drainage 200 / 200 200 / 200 Left Nare Nasogastric Tube 200 / 200 200 / 200 Other: Date of Last Bowel Movement 07/07/18 07/08/18 07/08/18 # Bowel Movements 0 0 # Incontinent Bowel Movements 1 1 Result Diagrams: 07/08/18 04:00 07/08/18 01:04 Laboratory Results: Laboratory Results - last 24 hr 07/07/18 07/07/18 07/07/18 17:45 19:58 23:23 WBC RBC Hgb Hct MCV MCH MCHC RDW Plt Count MPV Prelim Diff (Auto) Neut % (Auto) Lymph % (Auto) [place] % (Auto) Eos % (Auto) Baso % (Auto) Neut # (Auto) Lymph # (Auto) [place] # (Auto) Eos # (Auto) Baso # (Auto) WBC Differential Diff Scan Differential Comment Platelet Estimate Platelet Morphology Sodium Potassium Chloride Carbon Dioxide Anion Gap BUN Creatinine Estimated GFR POC Glucose 144 H 123 H 182 H Random Glucose Calcium Phosphorus Magnesium Total Bilirubin AST ALT Alkaline Phosphatase Total Protein Albumin 07/08/18 07/08/18 07/08/18 01:04 03:42 04:00 WBC 18.7 H RBC 2.54 L Hgb 7.5 L Hct 23.2 L MCV 91.6 MCH 29.6 MCHC 32.4 RDW 13.4 Plt Count 67 L MPV 10.7 Prelim Diff (Auto) Slide review pending Neut % (Auto) 97.0 H Lymph % (Auto) 0.9 L [place] % (Auto) 1.9 Eos % (Auto) 0.0 Baso % (Auto) 0.2 Neut # (Auto) 18.2 H Lymph # (Auto) 0.2 L [place] # (Auto) 0.3 Eos # (Auto) 0.0 Baso # (Auto) 0.0 WBC Differential . Diff Scan Auto diff confirmed Differential Comment . Platelet Estimate Low L Platelet Morphology Normal Sodium 149 H Potassium 3.8 Chloride 111 H Carbon Dioxide 29.9 Anion Gap 8 BUN 31 H Creatinine 1.15 Estimated GFR 76 L POC Glucose 236 H Random Glucose 185 H Calcium 7.7 L Phosphorus 2.7 Magnesium 2.0 Total Bilirubin 0.6 AST 39 H ALT 50 Alkaline Phosphatase 55 Total Protein 5.4 L Albumin 2.7 L 07/08/18 07/08/18 07/08/18 04:00 08:05 11:29 WBC RBC Hgb Hct MCV MCH MCHC RDW Plt Count MPV Prelim Diff (Auto) Neut % (Auto) Lymph % (Auto) [place] % (Auto) Eos % (Auto) Baso % (Auto) Neut # (Auto) Lymph # (Auto) [place] # (Auto) Eos # (Auto) Baso # (Auto) WBC Differential Diff Scan Differential Comment Platelet Estimate Platelet Morphology Sodium Potassium Chloride Carbon Dioxide Anion Gap BUN Creatinine Estimated GFR POC Glucose 235 H 270 H Random Glucose Calcium Phosphorus 2.9 Magnesium 1.9 Total Bilirubin AST ALT Alkaline Phosphatase Total Protein Albumin Culture Results: Microbiology 07/02/18 05:41 Aerobic Blood Culture - Final Blood - Peripheral No growth in 5 days Anaerobic Blood Culture - Final No growth in 5 days 07/02/18 05:47 Aerobic Blood Culture - Final Blood - Peripheral No growth in 5 days Anaerobic Blood Culture - Final No growth in 5 days Medications: Active Medications Generic Name Dose Route Start Last Admin Trade Name Freq PRN Reason Stop Dose Admin Acetaminophen 650 mg 06/20/18 02:11 07/01/18 15:05 Tylenol PO 650 mg Q4H PRN Administration Temp > 100.4 Albuterol 1 ampul 06/26/18 12:00 07/08/18 11:24 Duoneb Neb (Antoine) NEB 1 ampul Q4HR NEB ANTOINE Administration Artificial Tears 1 drop 07/02/18 16:00 07/08/18 08:41 Tears Naturale Opth Drops EACH EYE 1 drop Q8H ANTOINE Administration Bisacodyl 10 mg 06/24/18 15:15 07/08/18 08:52 Dulcolax Supp RECTAL 10 mg DAILY ANTOINE Administration Budesonide 0.5 mg 06/26/18 20:00 07/08/18 07:50 Pulmocort Respule Neb NEB 0.5 mg Q12HR NEB ANTOINE Administration Chlorhexidine Gluconate 15 ml 06/26/18 20:00 07/08/18 08:47 Peridex 0.12% Oral Kit OROPHARYNG Not Given BID@0800,2000 ANTOINE Diltiazem HCl 60 mg 06/30/18 09:00 07/08/18 08:43 Cardizem PO 60 mg QID ANTOINE Administration Duloxetine HCl 20 mg 06/23/18 18:00 06/28/18 09:09 Cymbalta PO Not Given DAILY ANTOINE Famotidine 20 mg 07/01/18 18:00 07/08/18 05:28 Pepcid Pf Inj IV.PUSH 20 mg Q12H ANTOINE Administration Hydralazine HCl 50 mg 06/23/18 18:00 07/08/18 08:53 Apresoline PO 50 mg TID ANTOINE Administration Potassium Chloride 40 meq in 100 mls @ 25 mls/hr 06/28/18 06:59 07/04/18 09: 15 Kcl 40 Meq Premix Inj IV.SIG Infused Q2H PRN Infusion For Potassium 2.8 - 3.2 mEq/L Cefepime HCl 2,000 mg/ Sodium 100 mls @ 200 mls/hr 07/02/18 05:00 07/08/18 06 :00 Chloride IV.SIG Infused Q8H ANTOINE Infusion Metronidazole/Sodium Chloride 100 mls @ 100 mls/hr 07/02/18 06:00 07/08/18 06 :30 Flagyl 500 Mg Inj IV.SIG Infused Q8H ANTOINE Infusion Dextrose 1,000 mls @ 42 mls/hr 07/05/18 08:00 07/07/18 23:28 D5w Inj IV.CONT 42 mls/hr .[id number] ANTOINE Administration Insulin Human Regular 0 units 06/28/18 08:00 07/08/18 11:42 Novolin R Correctional Sugar Inj SQ 7 units Q4HR ANTOINE Administration Protocol Lactulose 30 ml 07/03/18 13:00 07/08/18 08:52 Lactulose Liq PO 30 ml QID ANTOINE Administration Methylprednisolone Sodium Succinate 40 mg 07/04/18 20:00 07/08/18 08:40 Solumedrol Inj IV.PUSH 40 mg Q12H ANTOINE Administration Metoprolol Tartrate 2.5 mg 06/27/18 15:08 07/01/18 01:26 Lopressor Inj IV.PUSH 2.5 mg Q6H PRN Administration HEART RATE GREATER THAN 115 Miscellaneous Medication 1 each 06/26/18 12:00 07/08/18 11:42 OROPHARYNG Not Given 0000,0400,1200,1600 [facility] Ondansetron HCl 4 mg 06/20/18 02:11 07/08/18 08:53 Zofran Inj IV.PUSH 4 mg Q6H PRN Administration NAUSEA OR VOMITING Pantoprazole Sodium 20 mg 06/20/18 09:00 06/28/18 09:09 Protonix PO Not Given DAILY [facility] Potassium Bicarb/Potassium Chloride 50 meq 06/28/18 06:59 07/04/18 17:35 K-Lyte Cl Eff PO 50 meq UNSCH PRN Administration For Potassium 3.3 - 3.5 mEq/L Potassium Phosphate 2,000 mg 06/28/18 06:59 07/05/18 23:17 K-Phos Original PO 2,000 mg Q4H PRN Administration Phosphorus Less Than 2.5 mg/dL Senna/Docusate Sodium 1 tab 06/20/18 09:00 07/08/18 08:48 Maria Guadalupe-Colace PO 1 tab BID ANTOINE Administration Simethicone 80 mg 06/24/18 18:30 07/08/18 08:53 Mylicon Chew PO 80 mg PCHS ANTOINE Administration Sodium Chloride 2 ml 06/20/18 09:00 07/08/18 08:48 Ns Flush IV.FLUSH 2 ml BID ANTOINE Administration Sodium Chloride 2 ml 06/20/18 02:09 07/03/18 05:01 Ns Flush IV.FLUSH 2 ml PRN PRN Administration FLUSH AFTER USING IV ACCESS Sodium Chloride 0 ml 07/03/18 09:00 07/08/18 08:53 Ns Flush IV.FLUSH 10 ml DAILY ANTOINE Administration Sterile Water 250 ml 07/05/18 08:00 07/08/18 08:44 Free Water G-TUBE Not Given Q6H ANTOINE Whey 1 packet 06/28/18 09:00 07/08/18 08:48 Beneprotein Powder G-TUBE Not Given TID ANTOINE Objective Remarks: GENERAL: Well-nourished, well-developed elderly male patient, in no acute distress. SKIN: Warm and dry. HEAD: Normocephalic. EYES: No scleral icterus. No injection or drainage. NECK: Supple, trachea midline. CARDIOVASCULAR: Regular rate and rhythm without murmurs. RESPIRATORY: Breath sounds equal bilaterally. No accessory muscle use. GASTROINTESTINAL: Abdomen large round hard, non-tender. EXTREMITIES: No cyanosis, or edema. MUSCULOSKELETAL: Adequate muscle tone. NEUROLOGICAL: No obvious focal deficit. Awake, alert, and oriented x3. PSYCHIATRIC: Appropriate mood and affect; insight and judgment normal. Assessment/Plan - Plan 1. Thrombocytopenia, platelet count 67,000 today. No evidence of bleeding. Continue to monitor. 2. Leukocytosis, reactive. Continues on steroids and antibiotics 3. Anemia, secondary to critical illness iatrogenic anemia of inflammation, continue to monitor. 4. 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 Discontinued argatroban gtt. 5. CBC in the a.m. - Attending Statement The exam, history, and the medical decision-making described in the above note were completed with the assistance of the mid-level provider. I reviewed and agree with the findings presented. I attest that I had a [id number] encounter with the patient on the same day, and personally performed and documented my assessment and findings in the medical record. 73 yoM, following for TCP. Platelet count stable, continue to trend.
--- NOTE | 2018-07-08 17:04 | P.PNGI ---
Subjective Interval history: Patient transitioned from room 512-505, NG tube out oxygen per nasal cannula Chief complaint right leg pain but no abdominal pain even though it is distended and taut Rectal Moreno dark liquid stool continues <Lucy Faulkner M - Last Filed: 07/08/18 17:06> Physical Exam Vital signs: Vital Signs 07/07/18 17:01 07/07/18 18:00 07/07/18 18:01 Temperature Pulse Rate 105 H 107 H 107 H Respiratory Rate 26 H 26 H 25 H Blood Pressure 166/68 H 115/61 Pulse Oximetry 94 L 95 95 07/07/18 19:00 07/07/18 19:49 07/07/18 20:00 Temperature 98.6 F Pulse Rate 109 H 110 H 109 H Respiratory Rate 25 H 18 23 Blood Pressure 122/63 118/79 Pulse Oximetry 95 96 100 07/07/18 21:00 07/07/18 22:00 07/07/18 22:01 Temperature Pulse Rate 123 H 121 H 119 H Respiratory Rate 23 25 H 25 H Blood Pressure 106/62 156/70 H Pulse Oximetry 95 92 L 93 L 07/07/18 23:00 07/07/18 23:37 07/08/18 00:00 Temperature 98.7 F Pulse Rate 109 H 107 H 109 H Respiratory Rate 22 16 22 Blood Pressure 160/110 H 142/70 H Pulse Oximetry 94 L 97 07/08/18 00:01 07/08/18 01:00 07/08/18 02:00 Temperature Pulse Rate 110 H 104 H 98 H Respiratory Rate 23 10 L 16 Blood Pressure 142/70 H 133/63 122/58 L Pulse Oximetry 96 98 98 07/08/18 03:00 07/08/18 03:39 07/08/18 04:00 Temperature 98.5 F Pulse Rate 100 H 115 H 111 H Respiratory Rate 17 16 24 Blood Pressure 126/60 130/83 Pulse Oximetry 99 98 07/08/18 05:00 07/08/18 06:00 07/08/18 07:00 Temperature Pulse Rate 102 H 100 H 97 H Respiratory Rate 18 16 19 Blood Pressure 123/58 L 135/70 127/63 Pulse Oximetry 97 97 97 07/08/18 07:50 07/08/18 08:00 07/08/18 09:00 Temperature 98.5 F Pulse Rate 98 H 107 H 120 H Respiratory Rate 18 23 25 H Blood Pressure 147/68 H 158/79 H Pulse Oximetry 97 100 95 07/08/18 10:00 07/08/18 10:01 07/08/18 10:02 Temperature Pulse Rate 108 H 110 H 113 H Respiratory Rate 26 H 21 23 Blood Pressure 153/116 H 136/61 Pulse Oximetry 97 96 97 07/08/18 11:25 07/08/18 12:00 Temperature Pulse Rate 102 H 108 H Respiratory Rate 18 Blood Pressure Pulse Oximetry Intake & Output 07/07/18 07/08/18 07/08/18 18:59 06:59 18:59 Intake Total 950 / 950 2800 / 2800 Output Total 2200 / 2200 2325 / 2325 550 / 550 Balance -1250 / -1250 475 / 475 -550 / -550 Weight 91.5 kg Intake: IV 100 / 100 1500 / 1500 D5W Inj 1,000 ML @ 42 mls/hr IV 1000 / 1000 .CONT .[id number] WOLF Rx#:[id number] Maxipime Inj 2,000 MG In NS Inj 200 / 200 100 ML @ 200 mls/hr IV.SIG Q8H WOLF Rx#:[id number] Flagyl 500 MG Inj 100 ML @ 100 100 / 100 300 / 300 mls/hr IV.SIG Q8H WOLF Rx#: [id number] Oral 400 / 400 900 / 900 Tube Feeding 0 / 0 0 / 0 Tube Irrigant 200 / 200 200 / 200 Water Bolus Amount 200 / 200 200 / 200 Anesthesia Amount 50 / 50 Output: Urine 350 / 350 Stool 500 / 500 500 / 500 Urine/Stool Mix 0 / 0 0 / 0 Urine Amount (Catheter) 1150 / 1150 1625 / 1625 550 / 550 Indwelling Urethral Catheter 1150 / 1150 1625 / 1625 550 / 550 Gastric Drainage 200 / 200 200 / 200 Left Nare Nasogastric Tube 200 / 200 200 / 200 Other: Date of Last Bowel Movement 07/07/18 07/08/18 07/08/18 # Bowel Movements 0 0 # Incontinent Bowel Movements 1 1 - Constitutional moderate distress, disheveled, cooperative - Routine HEENT Exam Head: Present: normocephalic ENT: Present: mucous membranes moist (Pale mucous membranes) - Routine Neck Exam Present: supple - Routine Respiratory Exam Present: accessory muscle use (O2 per nasal cannula), diminished air movement - Routine Cardiovascular Exam Present: S1, S2 - Routine Abdominal Exam Present: distended (Moderate distention, tautness, tympanic, rectal Moreno with thin liquid dark stool no obvious blood noted) - Urinary Catheter Management Indwelling Urethral Catheter Cath placed during this visit: yes, but has since been removed by the nurse Reason for continuing: Decision to DC catheter Insertion date: 06/27/18 Insertion time: 16:00 Removal date: 07/08/18 Removal time: 11:50 <Lucy Faulkner - Last Filed: 07/08/18 17:06> Vital signs: Vital Signs 07/07/18 19:49 07/07/18 20:00 07/07/18 21:00 Temperature 98.6 F Pulse Rate 110 H 109 H 123 H Respiratory Rate 18 23 23 Blood Pressure 118/79 106/62 Pulse Oximetry 96 100 95 07/07/18 22:00 07/07/18 22:01 07/07/18 23:00 Temperature Pulse Rate 121 H 119 H 109 H Respiratory Rate 25 H 25 H 22 Blood Pressure 156/70 H 160/110 H Pulse Oximetry 92 L 93 L 94 L 07/07/18 23:37 07/08/18 00:00 07/08/18 00:01 Temperature 98.7 F Pulse Rate 107 H 109 H 110 H Respiratory Rate 16 22 23 Blood Pressure 142/70 H 142/70 H Pulse Oximetry 97 96 07/08/18 01:00 07/08/18 02:00 07/08/18 03:00 Temperature Pulse Rate 104 H 98 H 100 H Respiratory Rate 10 L 16 17 Blood Pressure 133/63 122/58 L 126/60 Pulse Oximetry 98 98 99 07/08/18 03:39 07/08/18 04:00 07/08/18 05:00 Temperature 98.5 F Pulse Rate 115 H 111 H 102 H Respiratory Rate 16 24 18 Blood Pressure 130/83 123/58 L Pulse Oximetry 98 97 07/08/18 06:00 07/08/18 07:00 07/08/18 07:50 Temperature Pulse Rate 100 H 97 H 98 H Respiratory Rate 16 19 18 Blood Pressure 135/70 127/63 Pulse Oximetry 97 97 97 07/08/18 08:00 07/08/18 09:00 11/06/18 10:00 Temperature 98.5 F Pulse Rate 107 H 120 H 108 H Respiratory Rate 23 25 H 26 H Blood Pressure 147/68 H 158/79 H Pulse Oximetry 100 95 97 07/08/18 10:01 07/08/18 10:02 07/08/18 11:25 Temperature Pulse Rate 110 H 113 H 102 H Respiratory Rate 21 23 18 Blood Pressure 153/116 H 136/61 Pulse Oximetry 96 97 07/08/18 12:00 07/08/18 17:13 Temperature Pulse Rate 108 H 102 H Respiratory Rate 22 Blood Pressure Pulse Oximetry Intake & Output 07/08/18 07/08/18 07/09/18 06:59 18:59 06:59 Intake Total 2800 / 2800 Output Total 2325 / 2325 550 / 550 Balance 475 / 475 -550 / -550 Weight 91.5 kg Intake: IV 1500 / 1500 D5W Inj 1,000 ML @ 42 mls/hr IV 1000 / 1000 .CONT .[id number] WOLF Rx#:[id number] Maxipime Inj 2,000 MG In NS Inj 200 / 200 100 ML @ 200 mls/hr IV.SIG Q8H WOLF Rx#:[id number] Flagyl 500 MG Inj 100 ML @ 100 300 / 300 mls/hr IV.SIG Q8H WOLF Rx#: [id number] Oral 900 / 900 Tube Feeding 0 / 0 Tube Irrigant 200 / 200 Water Bolus Amount 200 / 200 Output: Stool 500 / 500 Urine/Stool Mix 0 / 0 Urine Amount (Catheter) 1625 / 1625 550 / 550 Indwelling Urethral Catheter 1625 / 1625 550 / 550 Gastric Drainage 200 / 200 Left Nare Nasogastric Tube 200 / 200 Other: Date of Last Bowel Movement 07/08/18 07/08/18 # Bowel Movements 0 # Incontinent Bowel Movements 1 - Urinary Catheter Management Indwelling Urethral Catheter Cath placed during this visit: no <Ann Keith - Last Filed: 07/08/18 19:16> Results - Labs CBC & Chem 7: 07/08/18 04:00 07/08/18 01:04 Laboratory Results - last 24 hr 07/07/18 07/07/18 07/07/18 17:45 19:58 23:23 WBC RBC Hgb Hct MCV MCH MCHC RDW Plt Count MPV Prelim Diff (Auto) Neut % (Auto) Lymph % (Auto) [place] % (Auto) Eos % (Auto) Baso % (Auto) Neut # (Auto) Lymph # (Auto) [place] # (Auto) Eos # (Auto) Baso # (Auto) WBC Differential Diff Scan Differential Comment Platelet Estimate Platelet Morphology Sodium Potassium Chloride Carbon Dioxide Anion Gap BUN Creatinine Estimated GFR POC Glucose 144 H 123 H 182 H Random Glucose Calcium Phosphorus Magnesium Total Bilirubin AST ALT Alkaline Phosphatase Total Protein Albumin 07/08/18 07/08/18 07/08/18 01:04 03:42 04:00 WBC 18.7 H RBC 2.54 L Hgb 7.5 L Hct 23.2 L MCV 91.6 MCH 29.6 MCHC 32.4 RDW 13.4 Plt Count 67 L MPV 10.7 Prelim Diff (Auto) Slide review pending Neut % (Auto) 97.0 H Lymph % (Auto) 0.9 L [place] % (Auto) 1.9 Eos % (Auto) 0.0 Baso % (Auto) 0.2 Neut # (Auto) 18.2 H Lymph # (Auto) 0.2 L [place] # (Auto) 0.3 Eos # (Auto) 0.0 Baso # (Auto) 0.0 WBC Differential . Diff Scan Auto diff confirmed Differential Comment . Platelet Estimate Low L Platelet Morphology Normal Sodium 149 H Potassium 3.8 Chloride 111 H Carbon Dioxide 29.9 Anion Gap 8 BUN 31 H Creatinine 1.15 Estimated GFR 76 L POC Glucose 236 H Random Glucose 185 H Calcium 7.7 L Phosphorus 2.7 Magnesium 2.0 Total Bilirubin 0.6 AST 39 H ALT 50 Alkaline Phosphatase 55 Total Protein 5.4 L Albumin 2.7 L 07/08/18 07/08/18 07/08/18 04:00 08:05 11:29 WBC RBC Hgb Hct MCV MCH MCHC RDW Plt Count MPV Prelim Diff (Auto) Neut % (Auto) Lymph % (Auto) [place] % (Auto) Eos % (Auto) Baso % (Auto) Neut # (Auto) Lymph # (Auto) [place] # (Auto) Eos # (Auto) Baso # (Auto) WBC Differential Diff Scan Differential Comment Platelet Estimate Platelet Morphology Sodium Potassium Chloride Carbon Dioxide Anion Gap BUN Creatinine Estimated GFR POC Glucose 235 H 270 H Random Glucose Calcium Phosphorus 2.9 Magnesium 1.9 Total Bilirubin AST ALT Alkaline Phosphatase Total Protein Albumin <Lucy Faulkner - Last Filed: 07/08/18 17:06> - Labs CBC & Chem 7: 07/08/18 04:00 07/08/18 01:04 Laboratory Results - last 24 hr 07/07/18 07/07/18 07/08/18 19:58 23:23 01:04 WBC RBC Hgb Hct MCV MCH MCHC RDW Plt Count MPV Prelim Diff (Auto) Neut % (Auto) Lymph % (Auto) [place] % (Auto) Eos % (Auto) Baso % (Auto) Neut # (Auto) Lymph # (Auto) [place] # (Auto) Eos # (Auto) Baso # (Auto) WBC Differential Diff Scan Differential Comment Platelet Estimate Platelet Morphology Sodium 149 H Potassium 3.8 Chloride 111 H Carbon Dioxide 29.9 Anion Gap 8 BUN 31 H Creatinine 1.15 Estimated GFR 76 L POC Glucose 123 H 182 H Random Glucose 185 H Calcium 7.7 L Phosphorus 2.7 Magnesium 2.0 Total Bilirubin 0.6 AST 39 H ALT 50 Alkaline Phosphatase 55 Total Protein 5.4 L Albumin 2.7 L 07/08/18 07/08/18 07/08/18 03:42 04:00 04:00 WBC 18.7 H RBC 2.54 L Hgb 7.5 L Hct 23.2 L MCV 91.6 MCH 29.6 MCHC 32.4 RDW 13.4 Plt Count 67 L MPV 10.7 Prelim Diff (Auto) Slide review pending Neut % (Auto) 97.0 H Lymph % (Auto) 0.9 L [place] % (Auto) 1.9 Eos % (Auto) 0.0 Baso % (Auto) 0.2 Neut # (Auto) 18.2 H Lymph # (Auto) 0.2 L [place] # (Auto) 0.3 Eos # (Auto) 0.0 Baso # (Auto) 0.0 WBC Differential . Diff Scan Auto diff confirmed Differential Comment . Platelet Estimate Low L Platelet Morphology Normal Sodium Potassium Chloride Carbon Dioxide Anion Gap BUN Creatinine Estimated GFR POC Glucose 236 H Random Glucose Calcium Phosphorus 2.9 Magnesium 1.9 Total Bilirubin AST ALT Alkaline Phosphatase Total Protein Albumin 07/08/18 07/08/18 07/08/18 08:05 11:29 18:07 WBC RBC Hgb Hct MCV MCH MCHC RDW Plt Count MPV Prelim Diff (Auto) Neut % (Auto) Lymph % (Auto) [place] % (Auto) Eos % (Auto) Baso % (Auto) Neut # (Auto) Lymph # (Auto) [place] # (Auto) Eos # (Auto) Baso # (Auto) WBC Differential Diff Scan Differential Comment Platelet Estimate Platelet Morphology Sodium Potassium Chloride Carbon Dioxide Anion Gap BUN Creatinine Estimated GFR POC Glucose 235 H 270 H 237 H Random Glucose Calcium Phosphorus Magnesium Total Bilirubin AST ALT Alkaline Phosphatase Total Protein Albumin <Ann Keith - Last Filed: 07/08/18 19:16> Assessment and Plan - Plan Abdominal distention/ileus No output from rectal tube, this was Dced, intraabdominal pressure in rising . Abdomen firm distended KUB 07/05 No significant interval change with persistent diffuse air-filled distention of the colon suggesting ileus. Abdominal pressure is rising per nurse CT abdomen and pelvis 07/02/18 revealed the following-- : Colonic distention most likely representing moderate adynamic ileus. However, distal sigmoid colon is decompressed and a sigmoid stricture is conceivable but considered less likely. Apparent mild proctitis. Clinical surveillance and follow-up CT recommended. 07/02/2018 colonoscopy diagnostic revealed the following-- Colon the sigmoid was clear then there is significant amount of stool in the descending colon transverse colon and part of the sigmoid consistent with stool impaction, disimpaction with fluid as much as possible. Rectum normal. 07/07/2018 Status post decompressive colonoscopy Abdominal x-ray revealed the following findings: There is less gaseous distention of multiple bowel loops. No abnormal masses, calcifications, or organomegaly is seen. The osseous structures are unremarkable. 07/08/2018 patient continues with hot semifirm abdomen tympanic, NG tube out for trial run O2 per nasal cannula patient is awake and able to answer simple questions, now has rectal Moreno with approximately 375 liquid brown stool, dark but no obvious blood. GI monitoring ileus, bowel regimen needed history of stool impaction, now diarrhea. Patient now has regular diet will need to monitor swallow as well as ability to maintain caloric needs. Currently has normal bilirubin mild AST elevation 39 ALT normal at 50. Could be related to some fatty liver disease, versus stress. Dependent on KUB results may consider Pepto-Bismol, source of diarrhea Adynamic ileus, continue to evaluate Diarrhea, unspecified could be secondary to ileus Plan Diet regular monitor for any choking episodes, secondary to weakness Recheck KUB in the morning Monitor labs PPI Check for C. difficile, O&P This patient has been seen by myself and Dr. Keith and this note is written on her behalf <Lucy Faulkner - Last Filed: 07/08/18 17:06> - Attending Attestation seen, examined agree with above <Ann Keith - Last Filed: 07/08/18 19:16>
--- NOTE | 2018-07-08 19:44 | P.PNPL ---
Subjective Interval history: 73 YOAA male with COPD, 02 dependent Follows at [facility] Admitted with AMS, COPD exac Extubated On NC, denies sob Abd distended but denies abd pain NGT removed Physical Exam Vital signs: Vital Signs 07/07/18 19:49 07/07/18 20:00 07/07/18 21:00 Temperature 98.6 F Pulse Rate 110 H 109 H 123 H Respiratory Rate 18 23 23 Blood Pressure 118/79 106/62 Pulse Oximetry 96 100 95 07/07/18 22:00 07/07/18 22:01 07/07/18 23:00 Temperature Pulse Rate 121 H 119 H 109 H Respiratory Rate 25 H 25 H 22 Blood Pressure 156/70 H 160/110 H Pulse Oximetry 92 L 93 L 94 L 07/07/18 23:37 07/08/18 00:00 07/08/18 00:01 Temperature 98.7 F Pulse Rate 107 H 109 H 110 H Respiratory Rate 16 22 23 Blood Pressure 142/70 H 142/70 H Pulse Oximetry 97 96 07/08/18 01:00 07/08/18 02:00 07/08/18 03:00 Temperature Pulse Rate 104 H 98 H 100 H Respiratory Rate 10 L 16 17 Blood Pressure 133/63 122/58 L 126/60 Pulse Oximetry 98 98 99 07/08/18 03:39 07/08/18 04:00 07/08/18 05:00 Temperature 98.5 F Pulse Rate 115 H 111 H 102 H Respiratory Rate 16 24 18 Blood Pressure 130/83 123/58 L Pulse Oximetry 98 97 07/08/18 06:00 07/08/18 07:00 07/08/18 07:50 Temperature Pulse Rate 100 H 97 H 98 H Respiratory Rate 16 19 18 Blood Pressure 135/70 127/63 Pulse Oximetry 97 97 97 07/08/18 08:00 07/08/18 09:00 07/08/18 10:00 Temperature 98.5 F Pulse Rate 107 H 120 H 108 H Respiratory Rate 23 25 H 26 H Blood Pressure 147/68 H 158/79 H Pulse Oximetry 100 95 97 07/08/18 10:01 07/08/18 10:02 07/08/18 11:25 Temperature Pulse Rate 110 H 113 H 102 H Respiratory Rate 21 23 18 Blood Pressure 153/116 H 136/61 Pulse Oximetry 96 97 07/08/18 12:00 07/08/18 17:13 07/08/18 19:38 Temperature Pulse Rate 108 H 102 H 106 H Respiratory Rate 22 16 Blood Pressure Pulse Oximetry 98 Intake & Output 07/08/18 07/08/18 07/09/18 06:59 18:59 06:59 Intake Total 2800 / 2800 100 / 100 100 / 100 Output Total 2325 / 2325 550 / 550 Balance 475 / 475 -450 / -450 100 / 100 Weight 91.5 kg Intake: IV 1500 / 1500 100 / 100 100 / 100 D5W Inj 1,000 ML @ 42 mls/hr IV 1000 / 1000 .CONT .[id number] WOLF Rx#:[id number] Maxipime Inj 2,000 MG In NS Inj 200 / 200 100 / 100 100 ML @ 200 mls/hr IV.SIG Q8H WOLF Rx#:[id number] Flagyl 500 MG Inj 100 ML @ 100 300 / 300 100 / 100 mls/hr IV.SIG Q8H WOLF Rx#: [id number] Oral 900 / 900 Tube Feeding 0 / 0 Tube Irrigant 200 / 200 Water Bolus Amount 200 / 200 Output: Stool 500 / 500 Urine/Stool Mix 0 / 0 Urine Amount (Catheter) 1625 / 1625 550 / 550 Indwelling Urethral Catheter 1625 / 1625 550 / 550 Gastric Drainage 200 / 200 Left Nare Nasogastric Tube 200 / 200 Other: Date of Last Bowel Movement 07/08/18 07/08/18 # Bowel Movements 0 # Incontinent Bowel Movements 1 GENERAL: Elderly AA male, NAD SKIN: Warm and dry. HEAD: Normocephalic. EYES: No scleral icterus. No injection or drainage. NECK: Supple, trachea midline. No JVD or lymphadenopathy. CARDIOVASCULAR: Regular rate and rhythm without murmurs, gallops, or rubs. RESPIRATORY: Breath sounds equal bilaterally. No accessory muscle use. GASTROINTESTINAL: Abdomen soft, non-tender, distended. MUSCULOSKELETAL: No cyanosis, or edema. BACK: Nontender without obvious deformity. No CVA tenderness. - Urinary Catheter Management Indwelling Urethral Catheter Cath placed during this visit: yes, but has since been removed by the nurse Reason for continuing: Decision to DC catheter Insertion date: 06/27/18 Insertion time: 16:00 Removal date: 07/08/18 Removal time: 11:50 Assessment and Plan - Plan IMPRESSION: Hypercapnoic RF, Reintubated COPD exac AMS improved 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 PLAN: Aerosol nebs Cont Abx Supplement 02 Monitor BS Argatroban drip
[2018-07-08] MEDS: Dextrose 5% in Water Inj 1,000 ML IV.CONT SCH (22:08)
[2018-07-09] MEDS: Oral Hygiene Kit OROPHARYNG SCH ×4 (00:42→15:56)
[2018-07-09] MEDS: Insulin NovoLIN Regular Correctional Sugar Inj SQ SCH ×6 (00:42→19:57)
[2018-07-09] MEDS: Artificial Tears Opth Drops 15 ML Bottle EACH EYE SCH ×3 (01:03→16:07)
[2018-07-09] MEDS: Famotidine PF Inj 20 MG/2 ML Vial IV.PUSH SCH ×2 (05:07→18:27)
--- NOTE | 2018-07-09 07:19 | P.PNCC ---
Subjective Subjective Remarks/Hospital Course: Mr. Curry is a 73-year-old -[place] male with past medical history significant for COPD on 3 L nasal cannula, hypertension, hyperlipidemia and anxiety who was admitted to the hospitalist service on 06/19/2018 for worsening shortness of breath due to COPD exacerbation. He was treated with IV Solu- Medrol, IV antibiotics, breathing treatments gradually improved. Patient was also complaining about dyspepsia and underwent EGD by GI yesterday. Per report the EGD was normal but patient developed worsening shortness of breath and COPD exacerbation postprocedure, possibly from aspiration after sedated. Two ABGs done yesterday showed hypercapnic respiratory failure second 1 was on BiPAP and this was improved with pH 7.3 with PCO2 of 74. Patient remained on BiPAP overnight however was noticed to be lethargic today a.m., stat ABG showed pH of 7.21 PCO2 110 PO2 88 while on BiPAP. Patient was lethargic intermittently dozing off due to CO2 narcosis. Critical care medicine was consulted and I immediately evaluated the patient. Patient had obviously failed BiPAP I proceeded with endotracheal intubation placed on mechanical ventilation. Postintubation I have ordered single dose of Solu-Medrol 125 mg x1 continue Solu -Medrol 60 every 8, discontinue ceftriaxone and start cefepime 2 g IV every 8 hours continue azithromycin. Add budesonide inhaled, placed on scheduled DuoNeb every 4 hours and as needed. 06/27: Patient was intubated yesterday for severe hypercapnic respiratory failure. Currently remains intubated sedated and intubated remains diminished bilaterally. Heavily sedated for ventilator synchrony 06/28: Urine output significantly improved with fluid resuscitation. Creat down trending now 2 from 2.3, UO >3.3 L. Remains intubated sedated. Will initiate daily sedation vacation and CPAP trials 06/29: More awake today tolerating CPAP trials intermittently follows commands but gets agitated/frustrated fast. Urine output remains excellent creatinine 1.4. However sodium increasing 158 today. 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 Due to hypoglycemia will change to quarter normal saline at 150 mL/h repeat CMP in the afternoon 06/30 Patient was extubated yesterday. Awake 07/01 Patient is lying in bed in NAD. T: 100.5 07/02: Intubated early this morning due to acute hypoxic respiratory failure. Central line placed due to hypotension. Plan for GI perform endoscopic decompression of this large bowel today. Arousable and does follow commands. Placed on argatroban SUBJECTIVE: 07/03: Currently, intubated with borderline blood pressure. Central line placed yesterday due to hypotension. Did not move bowels despite 1 L of fluid from colonoscopy yesterday and multiple laxatives provided. See orders for additional laxatives today. Might need neostigmine. 07/04 Patient remains intubated and sedated with Diprivan. Given Neostigmine last night. KUB this morning showed colonic ileus. Afebrile. On Argatroban. 07/05 No events overnight, sedated with Diprivan and intubated. Off Argatroban. 07/06 Patient remains intubated and sedated. Afebrile. 07/07 Patient remains intubated, s/p decompressive colonoscopy yesterday. Awake. 07/08 Patient s/p extubation yesterday. Awake and alert. 07/09 Patient is awake, alert lying in bed in NAD. Afebrile. Objective Vital Signs / I&O: Vital Signs 07/08/18 07:50 07/08/18 08:00 07/08/18 09:00 Temperature 98.5 F Pulse Rate 98 H 107 H 120 H Respiratory Rate 18 23 25 H Blood Pressure 147/68 H 158/79 H Pulse Oximetry 97 100 95 07/08/18 10:00 07/08/18 10:01 07/08/18 10:02 Temperature Pulse Rate 108 H 110 H 113 H Respiratory Rate 26 H 21 23 Blood Pressure 153/116 H 136/61 Pulse Oximetry 97 96 97 07/08/18 11:25 07/08/18 12:00 07/08/18 14:00 Temperature Pulse Rate 102 H 104 H 108 H Respiratory Rate 18 23 Blood Pressure 128/59 L Pulse Oximetry 97 07/08/18 16:00 07/08/18 17:13 07/08/18 18:00 Temperature Pulse Rate 106 H 102 H 108 H Respiratory Rate 23 22 Blood Pressure 153/78 H Pulse Oximetry 97 07/08/18 19:38 07/08/18 20:00 07/08/18 22:00 Temperature 98.6 F Pulse Rate 106 H 113 H 107 H Respiratory Rate 16 18 Blood Pressure 119/97 H Pulse Oximetry 98 97 07/08/18 23:21 07/09/18 00:00 07/09/18 02:00 Temperature 98.7 F Pulse Rate 109 H 109 H 104 H Respiratory Rate 16 19 Blood Pressure 117/63 Pulse Oximetry 94 L 07/09/18 02:16 07/09/18 03:31 07/09/18 03:53 Temperature Pulse Rate 105 H Respiratory Rate 16 18 18 Blood Pressure Pulse Oximetry 07/09/18 04:00 Temperature 98.5 F Pulse Rate 104 H Respiratory Rate 17 Blood Pressure 133/75 Pulse Oximetry 100 Intake & Output 07/08/18 07/09/18 07/09/18 18:59 06:59 18:59 Intake Total 100 / 100 1300 / 1300 Output Total 825 / 825 Balance -725 / -725 1300 / 1300 Intake: IV 100 / 100 1300 / 1300 D5W Inj 1,000 ML @ 42 mls/hr IV 1000 / 1000 .CONT .[id number] WOLF Rx#:[id number] Maxipime Inj 2,000 MG In NS Inj 200 / 200 100 ML @ 200 mls/hr IV.SIG Q8H WOLF Rx#:[id number] Flagyl 500 MG Inj 100 ML @ 100 100 / 100 100 / 100 mls/hr IV.SIG Q8H WOLF Rx#: [id number] Output: Stool 275 / 275 Urine Amount (Catheter) 550 / 550 Indwelling Urethral Catheter 550 / 550 Other: Date of Last Bowel Movement 07/08/18 07/08/18 Result Diagrams: 07/08/18 04:00 07/08/18 01:04 Other Results: Laboratory Results - last 12 hr 07/08/18 07/09/18 07/09/18 20:26 00:11 00:30 POC Glucose 193 H 238 H Stl C.difficile DNA Amp Negative St C. diff Tox Epid 027 Negative 07/09/18 04:43 POC Glucose 215 H Stl C.difficile DNA Amp St C. diff Tox Epid 027 Imaging: Abdomen Ultrasound 06/21/18 00:00 CONCLUSION: 1. No ascites is identified within the abdomen. Abdomen/Bladder Ultrasound 06/28/18 00:00 CONCLUSION: 1. Echogenic kidneys characteristic of medical renal disease. No hydronephrosis. Bladder decompressed by [place] Chest CTA 07/02/18 00:00 CONCLUSION: 1. No pulmonary embolus. 2. Diffuse but basilar predominant bilateral airspace disease. 3. Endotracheal and endobronchial secretions are demonstrated. 4. Moderate emphysema. 5. Left ventricular hypertrophy. Venous Doppler Study 07/02/18 00:00 CONCLUSION: 1. Limited, no evidence for thrombosis. Abdomen/Pelvis CT 07/02/18 04:20 CONCLUSION: Colonic distention most likely representing moderate adynamic ileus. However, distal sigmoid colon is decompressed and a sigmoid stricture is conceivable but considered less likely. Apparent mild proctitis. Clinical surveillance and follow-up CT recommended. Chest X-Ray 07/07/18 07:12 CONCLUSION: Minimal bibasilar densities likely atelectasis. Abdomen X-Ray 07/07/18 07:13 CONCLUSION: Gaseous distention of multiple bowel loops has improved since previous study. Objective Remarks: GENERAL: Patient is 73 yo lying in bed in NAD SKIN: Warm and dry. HEAD: Normocephalic. EYES: No scleral icterus. No injection or drainage. NECK: Supple, trachea midline. No JVD or lymphadenopathy. CARDIOVASCULAR:tachycardic without murmurs, gallops, or rubs. RESPIRATORY: B/l equal air entry GASTROINTESTINAL: Abdomen distended. Protuberant. +BS MUSCULOSKELETAL: No significant peripheral edema. Neuro: Awake and alert Assessment and Plan - Assessment and Plan Plan: ASSESSMENT: Acute hypercapnic respiratory failure Acute COPD exacerbation Altered mental status due to CO2 narcosis Acute kidney injury/failure Hypertension Leukocytosis Hyperglycemia COPD Hypernatremia Colonic ileus PLAN: NEURO: -Monitor neuro status, -Awake and alert RESP: -Continue with oxygen keep sats >92% -Extubated 06/29. Reintubated 07/02 extubated 07/07 -DuoNeb every 4 hours scheduled and as needed -Decrease Solu-Medrol 40 mg daily -Inhaled budesonide -NIPPV PRN for resp distress CV: - Monitor HR and BP keep MAP>65mmHg -Continue with BP meds, Cardizem 60mg Q6,, Hydralazine 50mg TID with holding parameters GI: - Start diet if ok with GI. Check KUB abdomen -IV famotidine -CT abd/pelvis 07/02 :Colonic distention most likely representing moderate adynamic ileus. However, distal sigmoid colon is decompressed and a sigmoid stricture is conceivable but considered less likely -GI for decompression 07/02. On docusate sodium/senna 1 tablet twice daily, lactulose 30 cc 4 times daily, GoLYTELY 2 L x1 now. Mineral oil 15 mL x1 now. -KUB 07/04- colonic ileus, -KUB 07/05: No significant interval change with persistent diffuse air-filled distention of the colon suggesting ileus. -GI follow s/p decompressive colonoscopy 07/06, rectal tube to suction -KUB 07/07: Gaseous distention of multiple bowel loops has improved since previous study. FEN/: -Monitor renal function, I/O's, electrolytes replacement per protocol. - IVF D5W@42ml/hr ID: -Antibiotics with cefepime and completed azithromycin. Monitor for signs of infections ( Fever, WBC) -07/02 BC: NGTS, sputum cx 07/02:normal resp justyn HEME: -Monitor CBC, coags, Hep PLT is positive. ANNMARIE negative. Hematology is following. Off argatroban drip ENDO: -Electrolyte replacement per protocol -Sliding scale insulin medium scale PROPH: -Bilateral lower extremity SCDs. PPI , -Doppler US LE negative DVT LINES: -Utilize peripheral IVs, Follow up on labs Level 2
[2018-07-09] MEDS: dilTIAZem 60 MG Tablet PO SCH ×4 (09:04→20:31)
[2018-07-09] MEDS: Polyethylene Glycol 3350 17 GM Packet PO SCH (09:04)
[2018-07-09] MEDS: Bisacodyl 10 MG Supp RECTAL SCH (09:05)
[2018-07-09] MEDS: MethylPREDNISolone Sod Succinate Inj 40 MG/ML Vial IV.PUSH SCH (09:05)
[2018-07-09] MEDS: hydrALAZINE 50 MG Tablet PO SCH ×3 (09:05→18:27)
[2018-07-09] MEDS: Simethicone 80 MG Chew Tablet PO SCH ×4 (09:05→20:31)
[2018-07-09] MEDS: Senna/Docusate Sodium 8.6/50 MG Tablet PO SCH ×2 (09:05→20:31)
[2018-07-09] MEDS: Beneprotein Powder Packet G-TUBE SCH ×3 (09:06→18:27)
[2018-07-09] MEDS: Chlorhexidine 0.12% Oral Kit 15 ML UDC OROPHARYNG SCH ×2 (09:06→19:58)
--- NOTE | 2018-07-09 09:18 | XR ---
EXAM DATE: 07/09/2018 9:15 AM EST AGE/SEX: 73 years / Male INDICATIONS: Ileus. Abdomen distention. CLINICAL DATA: This is the patient's subsequent encounter. Patient reports that signs and symptoms h ave been present for 1 week and indicates a pain score of 0/10. MEDICAL/SURGICAL HISTORY: . Asthma. Chronic obstructive pulmonary disease. Hypertension None. COMPARISON: C, ABDOMEN 1V KUB, 07/07/2018. . FINDINGS: Mild diffuse gaseous distention of the colon. Improved small bowel distention with several loops of marginally distended small bowel primarily in the right upper quadrant. No gross free air or pneumato sis. Apparent interval removal of NG tube. Remainder of the exam is unchanged. CONCLUSION: 1. Apparent interval removal of NGT. 2. Improving bowel gas pattern consistent with improving adynamic ileus. Electronically signed by: Joshua Amin MD 07/09/2018 9:17 AM EST
[2018-07-09 10:22] LABS: Anion Gap 7 meq/L (5-15); Aspartate Aminotransferase 59 U/L (15-37); Blood Urea Nitrogen 38 mg/dL (7-18); Calcium 7.8 mg/dL (8.5-10.1); Carbon Dioxide 28.7 meq/L (21.0-32.0); Chloride 107 meq/L (98-107); Glomerular Filtration Rate 54 mL/min (>89); Glucose,Random 166 mg/dL (74-106); Magnesium 2.1 mg/dL (1.5-2.5)
[2018-07-09 10:23] LABS: Alanine Aminotransferase 69 U/L (12-78); Phosphorus 3.2 mg/dL (2.5-4.9); Sodium 143 meq/L (136-145)
[2018-07-09 10:25] LABS: Alkaline Phosphatase 66 U/L (45-117); Total Protein 6.1 g/dL (6.4-8.2)
[2018-07-09] MEDS: Acetaminophen 325 MG Tablet PO PRN (11:20)
--- NOTE | 2018-07-09 12:07 | P.PNGI ---
Subjective Interval history: Patient resting in bed Continues to have copious amounts of loose stool, rectal tube to suction Patient denies any nausea, vomiting, abdominal pain States he is tolerating p.o., per RN patient has poor p.o. intake Patient's only complaint at this time is back pain <Higinio Restreposey - Last Filed: 07/09/18 12:08> Physical Exam Vital signs: Vital Signs 07/08/18 14:00 07/08/18 16:00 07/08/18 17:13 Temperature Pulse Rate 108 H 106 H 102 H Respiratory Rate 23 22 Blood Pressure 153/78 H Pulse Oximetry 97 07/08/18 18:00 07/08/18 19:38 07/08/18 20:00 Temperature 98.6 F Pulse Rate 108 H 106 H 113 H Respiratory Rate 16 18 Blood Pressure 119/97 H Pulse Oximetry 98 97 07/08/18 22:00 07/08/18 23:21 07/09/18 00:00 Temperature 98.7 F Pulse Rate 107 H 109 H 109 H Respiratory Rate 16 19 Blood Pressure 117/63 Pulse Oximetry 94 L 07/09/18 02:00 07/09/18 02:16 07/09/18 03:31 Temperature Pulse Rate 104 H Respiratory Rate 16 18 Blood Pressure Pulse Oximetry 07/09/18 03:53 07/09/18 04:00 07/09/18 06:00 Temperature 98.5 F Pulse Rate 105 H 104 H 107 H Respiratory Rate 18 17 Blood Pressure 133/75 Pulse Oximetry 100 07/09/18 08:00 07/09/18 08:10 07/09/18 10:00 Temperature 98.8 F Pulse Rate 104 H 108 H 117 H Respiratory Rate 12 20 Blood Pressure 102/67 Pulse Oximetry 99 100 07/09/18 11:35 Temperature Pulse Rate 106 H Respiratory Rate 13 Blood Pressure Pulse Oximetry Intake & Output 07/08/18 07/09/18 07/09/18 18:59 06:59 18:59 Intake Total 100 / 100 1420 / 1420 200 / 200 Output Total 825 / 825 200 / 200 Balance -725 / -725 1220 / 1220 200 / 200 Weight 94 kg Intake: IV 100 / 100 1300 / 1300 200 / 200 D5W Inj 1,000 ML @ 42 mls/hr IV 1000 / 1000 .CONT .[id number] [facility] Rx#:[id number] Maxipime Inj 2,000 MG In NS Inj 200 / 200 100 / 100 100 ML @ 200 mls/hr IV.SIG Q8H [facility] Rx#:[id number] Flagyl 500 MG Inj 100 ML @ 100 100 / 100 100 / 100 100 / 100 mls/hr IV.SIG Q8H [facility] Rx#: [id number] Oral 120 / 120 Tube Feeding 0 / 0 Output: Urine 200 / 200 Stool 275 / 275 Urine Amount (Catheter) 550 / 550 Indwelling Urethral Catheter 550 / 550 Other: Date of Last Bowel Movement 07/08/18 07/08/18 07/09/18 - Constitutional no acute distress - Routine HEENT Exam Head: Present: normocephalic, atraumatic - Routine Respiratory Exam Absent: accessory muscle use - Routine Cardiovascular Exam Present: RRR - Routine Abdominal Exam Present: normoactive bowel sounds, distended, firm. Absent: tenderness - Routine Skin Exam Present: dry, warm - Routine Neurological Exam Present: alert, oriented X3 - Urinary Catheter Management Indwelling Urethral Catheter Cath placed during this visit: yes, but has since been removed by the nurse Reason for continuing: Decision to DC catheter Insertion date: 06/27/18 Insertion time: 16:00 Removal date: 07/08/18 Removal time: 11:50 <Khushboo Restrepo - Last Filed: 07/09/18 12:08> Vital signs: Vital Signs 07/08/18 20:00 07/08/18 22:00 07/08/18 23:21 Temperature 98.6 F Pulse Rate 113 H 107 H 109 H Respiratory Rate 18 16 Blood Pressure 119/97 H Pulse Oximetry 97 07/09/18 00:00 07/09/18 02:00 07/09/18 02:16 Temperature 98.7 F Pulse Rate 109 H 104 H Respiratory Rate 19 16 Blood Pressure 117/63 Pulse Oximetry 94 L 07/09/18 03:31 07/09/18 03:53 07/09/18 04:00 Temperature 98.5 F Pulse Rate 105 H 104 H Respiratory Rate 18 18 17 Blood Pressure 133/75 Pulse Oximetry 100 07/09/18 06:00 07/09/18 08:00 07/09/18 08:10 Temperature 98.8 F Pulse Rate 107 H 104 H 108 H Respiratory Rate 12 20 Blood Pressure 102/67 Pulse Oximetry 99 100 07/09/18 10:00 07/09/18 11:00 07/09/18 11:35 Temperature Pulse Rate 117 H 108 H 106 H Respiratory Rate 18 13 Blood Pressure 141/77 H Pulse Oximetry 97 07/09/18 12:00 07/09/18 14:00 07/09/18 15:00 Temperature 98.6 F Pulse Rate 106 H 109 H 100 H Respiratory Rate 14 18 Blood Pressure 127/59 L 137/69 Pulse Oximetry 97 94 L 07/09/18 16:00 07/09/18 18:00 Temperature 98.7 F Pulse Rate 107 H 103 H Respiratory Rate 18 Blood Pressure 129/60 Pulse Oximetry 94 L Intake & Output 07/09/18 07/09/18 07/10/18 06:59 18:59 06:59 Intake Total 1420 / 1420 700 / 700 Output Total 200 / 200 500 / 500 Balance 1220 / 1220 700 / 700 -500 / -500 Weight 94 kg Intake: IV 1300 / 1300 200 / 200 D5W Inj 1,000 ML @ 42 mls/hr IV 1000 / 1000 .CONT .[id number] [facility] Rx#:[id number] Maxipime Inj 2,000 MG In NS Inj 200 / 200 100 / 100 100 ML @ 200 mls/hr IV.SIG Q8H [facility] Rx#:[id number] Flagyl 500 MG Inj 100 ML @ 100 100 / 100 100 / 100 mls/hr IV.SIG Q8H [facility] Rx#: [id number] Oral 120 / 120 500 / 500 Tube Feeding 0 / 0 Output: Urine 200 / 200 Stool 500 / 500 Other: # Incontinent Voids 3 Date of Last Bowel Movement 07/08/18 07/09/18 - Urinary Catheter Management Indwelling Urethral Catheter Cath placed during this visit: no <Ann Keith - Last Filed: 07/09/18 19:44> Results - Labs CBC & Chem 7: 07/08/18 04:00 07/09/18 09:44 Laboratory Results - last 24 hr 07/08/18 07/08/18 07/09/18 18:07 20:26 00:11 Sodium Potassium Chloride Carbon Dioxide Anion Gap BUN Creatinine Estimated GFR POC Glucose 237 H 193 H 238 H Random Glucose Calcium Phosphorus Magnesium Total Bilirubin AST ALT Alkaline Phosphatase Total Protein Albumin Stl C.difficile DNA Amp St C. diff Tox Epid 027 07/09/18 07/09/18 07/09/18 00:30 04:43 09:04 Sodium Potassium Chloride Carbon Dioxide Anion Gap BUN Creatinine Estimated GFR POC Glucose 215 H 173 H Random Glucose Calcium Phosphorus Magnesium Total Bilirubin AST ALT Alkaline Phosphatase Total Protein Albumin Stl C.difficile DNA Amp Negative St C. diff Tox Epid 027 Negative 07/09/18 09:44 Sodium 143 Potassium 4.0 Chloride 107 Carbon Dioxide 28.7 Anion Gap 7 BUN 38 H Creatinine 1.54 H Estimated GFR 54 L POC Glucose Random Glucose 166 H Calcium 7.8 L Phosphorus 3.2 Magnesium 2.1 Total Bilirubin 0.5 AST 59 H ALT 69 Alkaline Phosphatase 66 Total Protein 6.1 L D Albumin 3.0 L Stl C.difficile DNA Amp St C. diff Tox Epid 027 - Imaging Impressions Abdomen X-Ray 07/09/18 07:14 CONCLUSION: 1. Apparent interval removal of NGT. 2. Improving bowel gas pattern consistent with improving adynamic ileus. <Khushboo Restrepo - Last Filed: 07/09/18 12:08> - Labs CBC & Chem 7: 07/09/18 09:44 07/09/18 09:44 Laboratory Results - last 24 hr 07/08/18 07/09/18 07/09/18 20:26 00:11 00:30 WBC RBC Hgb Hct MCV MCH MCHC RDW Plt Count MPV Prelim Diff (Auto) Neut % (Auto) Lymph % (Auto) [place] % (Auto) Eos % (Auto) Baso % (Auto) Neut # (Auto) Lymph # (Auto) [place] # (Auto) Eos # (Auto) Baso # (Auto) WBC Differential Seg Neuts % (Manual) Band Neuts % (Manual) Lymphocytes % (Manual) Monocytes % (Manual) Myelocytes % (Man) Abs Neuts (Manual) Differential Comment Platelet Estimate Platelet Morphology Hematology Comments Sodium Potassium Chloride Carbon Dioxide Anion Gap BUN Creatinine Estimated GFR POC Glucose 193 H 238 H Random Glucose Calcium Phosphorus Magnesium Total Bilirubin AST ALT Alkaline Phosphatase Total Protein Albumin Stl C.difficile DNA Amp Negative St C. diff Tox Epid 027 Negative 07/09/18 07/09/18 07/09/18 04:43 09:04 09:44 WBC 25.9 H RBC 3.05 L Hgb 8.8 L Hct 28.2 L MCV 92.4 MCH 28.9 MCHC 31.3 L RDW 13.6 Plt Count MPV 10.0 Prelim Diff (Auto) Slide review pending Neut % (Auto) 95.0 H Lymph % (Auto) 2.2 L [place] % (Auto) 2.3 Eos % (Auto) 0.0 Baso % (Auto) 0.5 Neut # (Auto) 24.6 H Lymph # (Auto) 0.6 L [place] # (Auto) 0.6 Eos # (Auto) 0.0 Baso # (Auto) 0.1 WBC Differential Manual diff final Seg Neuts % (Manual) 86 H Band Neuts % (Manual) 5 Lymphocytes % (Manual) 4 L Monocytes % (Manual) 4 Myelocytes % (Man) 1 H Abs Neuts (Manual) 23.8 H Differential Comment . Platelet Estimate Low L Platelet Morphology Normal Hematology Comments Sodium Potassium Chloride Carbon Dioxide Anion Gap BUN Creatinine Estimated GFR POC Glucose 215 H 173 H Random Glucose Calcium Phosphorus Magnesium Total Bilirubin AST ALT Alkaline Phosphatase Total Protein Albumin Stl C.difficile DNA Amp St C. diff Tox Epid 027 07/09/18 07/09/18 07/09/18 09:44 13:21 15:54 WBC RBC Hgb Hct MCV MCH MCHC RDW Plt Count MPV Prelim Diff (Auto) Neut % (Auto) Lymph % (Auto) [place] % (Auto) Eos % (Auto) Baso % (Auto) Neut # (Auto) Lymph # (Auto) [place] # (Auto) Eos # (Auto) Baso # (Auto) WBC Differential Seg Neuts % (Manual) Band Neuts % (Manual) Lymphocytes % (Manual) Monocytes % (Manual) Myelocytes % (Man) Abs Neuts (Manual) Differential Comment Platelet Estimate Platelet Morphology Hematology Comments Sodium 143 Potassium 4.0 Chloride 107 Carbon Dioxide 28.7 Anion Gap 7 BUN 38 H Creatinine 1.54 H Estimated GFR 54 L POC Glucose 224 H 267 H Random Glucose 166 H Calcium 7.8 L Phosphorus 3.2 Magnesium 2.1 Total Bilirubin 0.5 AST 59 H ALT 69 Alkaline Phosphatase 66 Total Protein 6.1 L D Albumin 3.0 L Stl C.difficile DNA Amp St C. diff Tox Epid 027 - Imaging Impressions Abdomen X-Ray 07/09/18 07:14 CONCLUSION: 1. Apparent interval removal of NGT. 2. Improving bowel gas pattern consistent with improving adynamic ileus. <Ann Keith - Last Filed: 07/09/18 19:44> Assessment and Plan - Plan Assessment Abdominal distention/ileus Pt with long standing history of constipation and is on daily narcotics at home, according to his significant other takes Aloe Vera for constipation but this has not been working Previously seen by our service earlier in this admission status post diagnostic colonoscopy on (07/02) The sigmoid colon was clear then there was significant amount of stool in the descending colon, transverse colon, and part of the sigmoid colon consistent with stool impaction. Attempted to disimpact the patient with fluid as much as possible. Rectum exam was normal. S/P decompressive colonoscopy (07/06) stool in cecum, large amount of water flush, stool section. Internal Hemorrhoids. Neostigmine given on 07/04 and 07/06 Relistor given on 07/02 and 07/03 Pt has also been on on Lactulose QID and Miralax daily (07/09) Pt with rectal tube to suction for decompression. He is having copious amounts of loose stool. Denies nausea, vomiting, abdominal pain. States he is tolerating PO, according to RN seems to have poor PO intake. KUB (07/09) Improving bowel gas pattern consistent with adynamic ileus Plan: Continue rectal tube to suction Diet as tolerated Continue bowel regimen Discussed with pt need for bowel regiment given chronic narcotic dependence Further recommendations pending course Pt has been seen and examined by myself and Dr. Keith and this note is written on her behalf <Khushboo Restrepo - Last Filed: 07/09/18 12:08> - Attending Attestation seen, examined agree with above trial of Relistore, Reglan change rectal tube if no improvement consider repeat colonoscopy with decompression clear liquid <Ann Keith - Last Filed: 07/09/18 19:44>
[2018-07-09 14:18] LABS: Hematocrit 28.2 % (39.0-51.0); Hemoglobin 8.8 gm/dL (13.0-17.0); Mean Corpuscular HGB Conc 31.3 % (32.0-36.0); Mean Corpuscular Hemoglobin 28.9 pg (27.0-34.0); Mean Corpuscular Volume 92.4 fL (80.0-100.0); Red Blood Count 3.05 mil/mm3 (4.50-5.90); Red Cell Distribution Width 13.6 % (11.6-17.2); White Blood Count 25.9 th/mm3 (4.0-11.0)
[2018-07-09 14:19] LABS: Baso # (Auto) 0.1 th/mm3 (0.0-0.2); Baso % (Auto) 0.5 % (0.0-2.0); Lymph # (Auto) 0.6 th/mm3 (1.0-4.8); Lymph % (Auto) 2.2 % (9.0-44.0); Mono # (Auto) 0.6 th/mm3 (0.0-0.9); Mono % (Auto) 2.3 % (0.0-8.0); Neut # (Auto) 24.6 th/mm3 (1.8-7.7)
[2018-07-09 14:36] LABS: Lymphocytes 4 % (9-44); Monocytes 4 % (0-8); Myelocytes 1 % (0-0)
[2018-07-09 14:38] LABS: Platelet Morphology Normal (Normal)
--- NOTE | 2018-07-09 18:20 | P.PNPL ---
Subjective Interval history: 73 YOAA male with COPD, 02 dependent Follows at [facility] Admitted with AMS, COPD exac On [place], denies sob Abd distended but denies abd pain Breathing better Physical Exam Vital signs: Vital Signs 07/08/18 19:38 07/08/18 20:00 07/08/18 22:00 Temperature 98.6 F Pulse Rate 106 H 113 H 107 H Respiratory Rate 16 18 Blood Pressure 119/97 H Pulse Oximetry 98 97 07/08/18 23:21 07/09/18 00:00 07/09/18 02:00 Temperature 98.7 F Pulse Rate 109 H 109 H 104 H Respiratory Rate 16 19 Blood Pressure 117/63 Pulse Oximetry 94 L 07/09/18 02:16 07/09/18 03:31 07/09/18 03:53 Temperature Pulse Rate 105 H Respiratory Rate 16 18 18 Blood Pressure Pulse Oximetry 07/09/18 04:00 07/09/18 06:00 07/09/18 08:00 Temperature 98.5 F 98.8 F Pulse Rate 104 H 107 H 104 H Respiratory Rate 17 12 Blood Pressure 133/75 102/67 Pulse Oximetry 100 99 07/09/18 08:10 07/09/18 10:00 07/09/18 11:00 Temperature Pulse Rate 108 H 117 H 108 H Respiratory Rate 20 18 Blood Pressure 141/77 H Pulse Oximetry 100 97 07/09/18 11:35 07/09/18 12:00 07/09/18 15:00 Temperature 98.6 F Pulse Rate 106 H 106 H 100 H Respiratory Rate 13 14 18 Blood Pressure 127/59 L 137/69 Pulse Oximetry 97 94 L 07/09/18 16:00 Temperature 98.7 F Pulse Rate 107 H Respiratory Rate 20 Blood Pressure 129/60 Pulse Oximetry 94 L Intake & Output 07/08/18 07/09/18 07/09/18 18:59 06:59 18:59 Intake Total 100 / 100 1420 / 1420 200 / 200 Output Total 825 / 825 200 / 200 Balance -725 / -725 1220 / 1220 200 / 200 Weight 94 kg Intake: IV 100 / 100 1300 / 1300 200 / 200 D5W Inj 1,000 ML @ 42 mls/hr IV 1000 / 1000 .CONT .[id number] [facility] Rx#:[id number] Maxipime Inj 2,000 MG In NS Inj 200 / 200 100 / 100 100 ML @ 200 mls/hr IV.SIG Q8H [facility] Rx#:[id number] Flagyl 500 MG Inj 100 ML @ 100 100 / 100 100 / 100 100 / 100 mls/hr IV.SIG Q8H [facility] Rx#: [id number] Oral 120 / 120 Tube Feeding 0 / 0 Output: Urine 200 / 200 Stool 275 / 275 Urine Amount (Catheter) 550 / 550 Indwelling Urethral Catheter 550 / 550 Other: Date of Last Bowel Movement 07/08/18 07/08/18 07/09/18 GENERAL: Elderly AA male, NAD SKIN: Warm and dry. HEAD: Normocephalic. EYES: No scleral icterus. No injection or drainage. NECK: Supple, trachea midline. No JVD or lymphadenopathy. CARDIOVASCULAR: Regular rate and rhythm without murmurs, gallops, or rubs. RESPIRATORY: Breath sounds equal bilaterally. No accessory muscle use. GASTROINTESTINAL: Abdomen soft, non-tenderdistended. MUSCULOSKELETAL: No cyanosis, or edema. BACK: Nontender without obvious deformity. No CVA tenderness. - Urinary Catheter Management Indwelling Urethral Catheter Cath placed during this visit: yes, but has since been removed by the nurse Reason for continuing: Decision to DC catheter Insertion date: 06/27/18 Insertion time: 16:00 Removal date: 07/08/18 Removal time: 11:50 Assessment and Plan - Plan IMPRESSION: Hypercapnoic RF, Reintubated COPD exac AMS improved 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 PLAN: Aerosol nebs Cont Abx Supplement 02 Monitor BS
[2018-07-09] MEDS: Dextrose 5% in Water Inj 1,000 ML IV.CONT SCH (19:54)
[2018-07-10] MEDS: Insulin NovoLIN Regular Correctional Sugar Inj SQ SCH ×6 (00:49→23:35)
[2018-07-10] MEDS: Artificial Tears Opth Drops 15 ML Bottle EACH EYE SCH ×3 (00:50→16:25)
[2018-07-10] MEDS: Oral Hygiene Kit OROPHARYNG SCH ×4 (00:50→16:25)
[2018-07-10] MEDS: Famotidine PF Inj 20 MG/2 ML Vial IV.PUSH SCH ×2 (05:34→23:34)
--- NOTE | 2018-07-10 08:40 | P.PNCC ---
Subjective Subjective Remarks/Hospital Course: Mr. Curry is a 73-year-old -[place] male with past medical history significant for COPD on 3 L nasal cannula, hypertension, hyperlipidemia and anxiety who was admitted to the hospitalist service on 06/19/2018 for worsening shortness of breath due to COPD exacerbation. He was treated with IV Solu- Medrol, IV antibiotics, breathing treatments gradually improved. Patient was also complaining about dyspepsia and underwent EGD by GI yesterday. Per report the EGD was normal but patient developed worsening shortness of breath and COPD exacerbation postprocedure, possibly from aspiration after sedated. Two ABGs done yesterday showed hypercapnic respiratory failure second 1 was on BiPAP and this was improved with pH 7.3 with PCO2 of 74. Patient remained on BiPAP overnight however was noticed to be lethargic today a.m., stat ABG showed pH of 7.21 PCO2 110 PO2 88 while on BiPAP. Patient was lethargic intermittently dozing off due to CO2 narcosis. Critical care medicine was consulted and I immediately evaluated the patient. Patient had obviously failed BiPAP I proceeded with endotracheal intubation placed on mechanical ventilation. Postintubation I have ordered single dose of Solu-Medrol 125 mg x1 continue Solu -Medrol 60 every 8, discontinue ceftriaxone and start cefepime 2 g IV every 8 hours continue azithromycin. Add budesonide inhaled, placed on scheduled DuoNeb every 4 hours and as needed. 06/27: Patient was intubated yesterday for severe hypercapnic respiratory failure. Currently remains intubated sedated and intubated remains diminished bilaterally. Heavily sedated for ventilator synchrony 06/28: Urine output significantly improved with fluid resuscitation. Creat down trending now 2 from 2.3, UO >3.3 L. Remains intubated sedated. Will initiate daily sedation vacation and CPAP trials 06/29: More awake today tolerating CPAP trials intermittently follows commands but gets agitated/frustrated fast. Urine output remains excellent creatinine 1.4. However sodium increasing 158 today. Night bun panner had changed fluid to D5 W for free water replacement. Due to hypoglycemia will change to quarter normal saline at 150 mL/h repeat CMP in the afternoon 06/30 Patient was extubated yesterday. Awake 07/01 Patient is lying in bed in NAD. T: 100.5 07/02: Intubated early this morning due to acute hypoxic respiratory failure. Central line placed due to hypotension. Plan for GI perform endoscopic decompression of this large bowel today. Arousable and does follow commands. Placed on argatroban SUBJECTIVE: 07/03: Currently, intubated with borderline blood pressure. Central line placed yesterday due to hypotension. Did not move bowels despite 1 L of fluid from colonoscopy yesterday and multiple laxatives provided. See orders for additional laxatives today. Might need neostigmine. 07/04 Patient remains intubated and sedated with Diprivan. Given Neostigmine last night. KUB this morning showed colonic ileus. Afebrile. On Argatroban. 07/05 No events overnight, sedated with Diprivan and intubated. Off Argatroban. 07/06 Patient remains intubated and sedated. Afebrile. 07/07 Patient remains intubated, s/p decompressive colonoscopy yesterday. Awake. 07/08 Patient s/p extubation yesterday. Awake and alert. 07/09 Patient is awake, alert lying in bed in NAD. Afebrile. 07/10 Patient is awake and alert, Afebrile. Objective Vital Signs / I&O: Vital Signs 07/09/18 10:00 07/09/18 11:00 07/09/18 11:35 Temperature Pulse Rate 117 H 108 H 106 H Respiratory Rate 18 13 Blood Pressure 141/77 H Pulse Oximetry 97 07/09/18 12:00 07/09/18 14:00 07/09/18 15:00 Temperature 98.6 F Pulse Rate 106 H 109 H 100 H Respiratory Rate 14 18 Blood Pressure 127/59 L 137/69 Pulse Oximetry 97 94 L 07/09/18 16:00 07/09/18 18:00 07/09/18 19:59 Temperature 98.7 F Pulse Rate 107 H 103 H Respiratory Rate 18 16 Blood Pressure 129/60 Pulse Oximetry 94 L 07/09/18 20:00 07/09/18 20:10 07/09/18 21:38 Temperature 98.3 F Pulse Rate 103 H 104 H Respiratory Rate 15 17 20 Blood Pressure 131/63 Pulse Oximetry 95 95 07/09/18 22:00 07/10/18 00:00 07/10/18 00:35 Temperature 97.5 F L Pulse Rate 102 H 100 H 101 H Respiratory Rate 20 17 Blood Pressure 131/68 Pulse Oximetry 95 07/10/18 01:29 07/10/18 04:00 07/10/18 04:14 Temperature 98.4 F Pulse Rate 99 H 95 H Respiratory Rate 20 20 Blood Pressure 93/52 L Pulse Oximetry 97 07/10/18 04:54 07/10/18 06:00 07/10/18 07:59 Temperature Pulse Rate 89 97 H 97 H Respiratory Rate 16 16 Blood Pressure Pulse Oximetry 95 Intake & Output 07/09/18 07/10/18 07/10/18 18:59 06:59 18:59 Intake Total 700 / 700 740 / 740 Output Total 675 / 675 Balance 700 / 700 65 / 65 Weight 96.5 kg Intake: IV 200 / 200 500 / 500 Maxipime Inj 2,000 MG In NS Inj 100 / 100 300 / 300 100 ML @ 200 mls/hr IV.SIG Q8H [facility] Rx#:[id number] Flagyl 500 MG Inj 100 ML @ 100 100 / 100 200 / 200 mls/hr IV.SIG Q8H [facility] Rx#: [id number] Oral 500 / 500 240 / 240 Output: Urine 175 / 175 Stool 500 / 500 Other: # Incontinent Voids 3 Date of Last Bowel Movement 07/09/18 07/09/18 Result Diagrams: 07/09/18 09:44 07/09/18 09:44 Other Results: Laboratory Results - last 12 hr 07/09/18 07/10/18 07/10/18 09:44 00:21 04:41 WBC 25.9 H RBC 3.05 L Hgb 8.8 L Hct 28.2 L MCV 92.4 MCH 28.9 MCHC 31.3 L RDW 13.6 Plt Count MPV 10.0 Prelim Diff (Auto) Slide review pending Neut % (Auto) 95.0 H Lymph % (Auto) 2.2 L [place] % (Auto) 2.3 Eos % (Auto) 0.0 Baso % (Auto) 0.5 Neut # (Auto) 24.6 H Lymph # (Auto) 0.6 L [place] # (Auto) 0.6 Eos # (Auto) 0.0 Baso # (Auto) 0.1 WBC Differential Manual diff final Seg Neuts % (Manual) 86 H Band Neuts % (Manual) 5 Lymphocytes % (Manual) 4 L Monocytes % (Manual) 4 Myelocytes % (Man) 1 H Abs Neuts (Manual) 23.8 H Platelet Estimate Low L Platelet Morphology Normal Hematology Comments POC Glucose 148 H 111 H Imaging: Abdomen Ultrasound 06/21/18 00:00 CONCLUSION: 1. No ascites is identified within the abdomen. Abdomen/Bladder Ultrasound 06/28/18 00:00 CONCLUSION: 1. Echogenic kidneys characteristic of medical renal disease. No hydronephrosis. Bladder decompressed by [place] Chest CTA 07/02/18 00:00 CONCLUSION: 1. No pulmonary embolus. 2. Diffuse but basilar predominant bilateral airspace disease. 3. Endotracheal and endobronchial secretions are demonstrated. 4. Moderate emphysema. 5. Left ventricular hypertrophy. Venous Doppler Study 07/02/18 00:00 CONCLUSION: 1. Limited, no evidence for thrombosis. Abdomen/Pelvis CT 07/02/18 04:20 CONCLUSION: Colonic distention most likely representing moderate adynamic ileus. However, distal sigmoid colon is decompressed and a sigmoid stricture is conceivable but considered less likely. Apparent mild proctitis. Clinical surveillance and follow-up CT recommended. Chest X-Ray 07/07/18 07:12 CONCLUSION: Minimal bibasilar densities likely atelectasis. Abdomen X-Ray 07/09/18 07:14 CONCLUSION: 1. Apparent interval removal of NGT. 2. Improving bowel gas pattern consistent with improving adynamic ileus. Objective Remarks: GENERAL: Patient is 73 yo lying in bed in NAD SKIN: Warm and dry. HEAD: Normocephalic. EYES: No scleral icterus. No injection or drainage. NECK: Supple, trachea midline. No JVD or lymphadenopathy. CARDIOVASCULAR:tachycardic without murmurs, gallops, or rubs. RESPIRATORY: B/l equal air entry GASTROINTESTINAL: Abdomen distended. Protuberant. hypoactive BS MUSCULOSKELETAL: No significant peripheral edema. Neuro: Awake and alert Assessment and Plan - Assessment and Plan Plan: ASSESSMENT: Acute hypercapnic respiratory failure Acute COPD exacerbation Altered mental status due to CO2 narcosis Acute kidney injury/failure Hypertension Leukocytosis Hyperglycemia COPD Hypernatremia Colonic ileus PLAN: NEURO: -Monitor neuro status, -Awake and alert RESP: -Continue with oxygen keep sats >92% -Extubated 06/29. Reintubated 07/02 extubated 07/07 -DuoNeb every 4 hours scheduled and as needed -Solu-Medrol 40 mg daily -Inhaled budesonide -NIPPV PRN for resp distress -07/02 CTA chest:No PE, bibasilar air space disease -07/02 Doppler US LE negative DVT -Check CXR/ABG CV: - Monitor HR and BP keep MAP>65mmHg -Continue with BP meds, Cardizem 60mg Q6,, d/c hydralazine -Check lactic acid GI: - 07/09 KUB abdomen: Improving bowel gas pattern consistent with improving adynamic ileus. -IV famotidine -Will repeat CT abd/pelvis today might need repeat decompressive colonoscopy. -Rectal tube to suction -CT abd/pelvis 07/02 :Colonic distention most likely representing moderate adynamic ileus. However, distal sigmoid colon is decompressed and a sigmoid stricture is conceivable but considered less likely -GI for decompression 07/02. On docusate sodium/senna 1 tablet twice daily, lactulose 30 cc 4 times daily, -KUB 07/04- colonic ileus, -KUB 07/05: No significant interval change with persistent diffuse air-filled distention of the colon suggesting ileus. -GI follow s/p decompressive colonoscopy 07/06 -KUB 07/07: Gaseous distention of multiple bowel loops has improved since previous study. FEN/: -Monitor renal function, I/O's, electrolytes replacement per protocol. - Diurese with Lasix 40mg x1, on Relistor 12mg daily ID: -Change Cefepime to Zosyn,on Flagyl 500mg IV Q8 ID eval for worsening leukocytosis -Check Blood cx and UA. For repeat CT abd/pelvis -07/02 BC: NGTS, sputum cx 07/02:normal resp justyn HEME: -Monitor CBC, coags, Hep PLT is positive. ANNMARIE negative. Hematology is following. Off argatroban drip ENDO: -Electrolyte replacement per protocol -Sliding scale insulin medium scale PROPH: -Bilateral lower extremity SCDs. PPI , -Doppler US LE negative DVT 07/02 LINES: -Utilize peripheral IVs, Follow up on labs Level 3
[2018-07-10 08:52] LABS: ABG Base Excess -0.5 mmol/L (-2-2); ABG PCO2 46 mmHg (38-42); ABG PO2 60 mmHG (61-120)
[2018-07-10] MEDS: Piperacil/Tazo 4.5 GM Premix 4.5 GM/100 ML BAG IV.SIG SCH ×2 (09:00→16:24)
[2018-07-10] MEDS: MethylPREDNISolone Sod Succinate Inj 40 MG/ML Vial IV.PUSH SCH (09:00)
[2018-07-10] MEDS: dilTIAZem 60 MG Tablet PO SCH ×3 (09:06→23:34)
[2018-07-10] MEDS: Polyethylene Glycol 3350 17 GM Packet PO SCH (09:06)
[2018-07-10] MEDS: Bisacodyl 10 MG Supp RECTAL SCH (09:06)
[2018-07-10] MEDS: Beneprotein Powder Packet G-TUBE SCH ×3 (09:06→17:56)
[2018-07-10] MEDS: Simethicone 80 MG Chew Tablet PO SCH ×3 (09:07→23:35)
[2018-07-10] MEDS: Senna/Docusate Sodium 8.6/50 MG Tablet PO SCH (09:07)
[2018-07-10] MEDS: Chlorhexidine 0.12% Oral Kit 15 ML UDC OROPHARYNG SCH ×2 (09:07→23:53)
[2018-07-10] MEDS: Methylnaltrexone Inj 12 MG/0.6 ML Vial SQ SCH (09:18)
[2018-07-10 09:20] LABS: Baso % (Auto) 0.1 % (0.0-2.0); Hematocrit 23.4 % (39.0-51.0); Hemoglobin 7.7 gm/dL (13.0-17.0); Lymph # (Auto) 0.4 th/mm3 (1.0-4.8); Lymph % (Auto) 1.5 % (9.0-44.0); Mean Corpuscular HGB Conc 32.9 % (32.0-36.0); Mean Corpuscular Hemoglobin 30.4 pg (27.0-34.0); Mean Corpuscular Volume 92.4 fL (80.0-100.0); Mean Platelet Volume 10.7 fL (7.0-11.0); Mono # (Auto) 0.6 th/mm3 (0.0-0.9); Mono % (Auto) 2.5 % (0.0-8.0); Neut # (Auto) 22.4 th/mm3 (1.8-7.7); Neut % (Auto) 95.9 % (16.0-70.0); Platelet Count 71 th/mm3 (150-450); Red Blood Count 2.54 mil/mm3 (4.50-5.90); Red Cell Distribution Width 13.8 % (11.6-17.2); White Blood Count 23.4 th/mm3 (4.0-11.0)
--- NOTE | 2018-07-10 09:53 | XR ---
EXAM DATE: 07/10/2018 9:48 AM EST AGE/SEX: 73 years / Male INDICATIONS: Short of breath. CLINICAL DATA: This is the patient's subsequent encounter. Patient reports that signs and symptoms h ave been present for 1 week and indicates a pain score of Nonresponsive. MEDICAL/SURGICAL HISTORY: . Asthma. Chronic obstructive pulmonary disease. Hypertension. None. [place] [facility] [place]. . FINDINGS: Single AP view of the chest. Patchy opacity at the lung bases unchanged. Mild blunting of t he left costophrenic sulcus. Cardiomediastinal silhouette within normal limits. No evidence of pneumo thorax. CONCLUSION: Mild patchy bilateral lung base opacity likely representing atelectasis unchanged. Small left pleural effusion now seen. Electronically signed by: Ernesto Figueredo MD 07/10/2018 9:52 AM EST
--- NOTE | 2018-07-10 10:06 | CT ---
EXAM DATE: 07/10/2018 9:57 AM EST AGE/SEX: 73 years / Male INDICATIONS: Abdominal distention, ileus, worsening leukocytosis CLINICAL DATA: This is the patient's initial encounter. Patient reports that signs and symptoms have been present for 2 days and indicates a pain score of 4/10. MEDICAL/SURGICAL HISTORY: Chronic obstructive pulmonary disease. Asthma. Hypertension. None. RADIATION DOSE: 24.64 CTDI (mGy) COMPARISON: [facility], ABDOMEN 1V KUB, 07/09/2018. . TECHNIQUE: Multiple contiguous axial images were obtained through the abdomen. Images were obtained using multiple row detector helical technique. Using automated exposure control and adjustment of the mA and/or kV according to patient size, radiation dose was kept as low as reasonably achievable to o btain optimal diagnostic quality images. DICOM format image data is available electronically for rev iew and comparison. FINDINGS: Imaging through the lung bases demonstrates a small left-sided pleural effusion. There are atelectati c changes in the left lower lobe. The appearance of the liver, spleen, pancreas, adrenal glands and kidneys is within normal limits. There is no retroperitoneal lymphadenopathy. The abdominal aorta is normal in caliber. The visualized loops of small and large bowel demonstrate distention of the colon with liquid stool a nd gas. The small bowel is normal in caliber. Study would suggest a possible colonic ileus. Of note, there is a rectal tube in place. The rectal tube is looped back on itself and occluded. No free intraperitoneal air is identified. There is no free fluid within the pelvis. No iliac or inguinal adenopathy is seen. The osseous structures demonstrate degenerative changes but are otherwise intact. CONCLUSION: 1. There is gas and fluid distending the colon. The patient has a rectal tube in place however the r ectal tube is kinked back on itself and occluded. The overall size of the colon has mildly increased when compared to previous exam. The small bowel is normal in caliber. 2. Interval development of a small left basilar effusion and atelectasis. Electronically signed by: Onesimo Angulo MD 07/10/2018 10:04 AM EST
[2018-07-10 10:13] LABS: Alanine Aminotransferase 73 U/L (12-78); Albumin 2.9 g/dL (3.4-5.0); Alkaline Phosphatase 60 U/L (45-117); Anion Gap 11 meq/L (5-15); Aspartate Aminotransferase 46 U/L (15-37); Blood Urea Nitrogen 55 mg/dL (7-18); Calcium 7.8 mg/dL (8.5-10.1); Carbon Dioxide 23.4 meq/L (21.0-32.0); Chloride 104 meq/L (98-107); Glomerular Filtration Rate 35 mL/min (>89); Glucose,Random 149 mg/dL (74-106); Magnesium 2.1 mg/dL (1.5-2.5); Phosphorus 4.1 mg/dL (2.5-4.9); Sodium 138 meq/L (136-145); Total Protein 5.7 g/dL (6.4-8.2)
--- NOTE | 2018-07-10 14:02 | P.PNGI ---
Subjective Interval history: Pt resting in bed, girlfriend at bedside Abdomen more distended today Pt has only had 1 sip of water No output through rectal tube CT does note rectal tube to be kinked NG tube placed a few minutes ago Placed to LIWS, no output yet Physical Exam Vital signs: Vital Signs 07/09/18 14:00 07/09/18 15:00 07/09/18 16:00 Temperature 98.7 F Pulse Rate 109 H 100 H 107 H Respiratory Rate 18 18 Blood Pressure 137/69 129/60 Pulse Oximetry 94 L 94 L 07/09/18 18:00 07/09/18 19:59 07/09/18 20:00 Temperature 98.3 F Pulse Rate 103 H 103 H Respiratory Rate 16 15 Blood Pressure 131/63 Pulse Oximetry 95 07/09/18 20:10 07/09/18 21:38 07/09/18 22:00 Temperature Pulse Rate 104 H 102 H Respiratory Rate 17 20 Blood Pressure Pulse Oximetry 95 07/10/18 00:00 07/10/18 00:35 07/10/18 01:29 Temperature 97.5 F L Pulse Rate 100 H 101 H 99 H Respiratory Rate 20 17 Blood Pressure 131/68 Pulse Oximetry 95 07/10/18 04:00 07/10/18 04:14 07/10/18 04:54 Temperature 98.4 F Pulse Rate 95 H 89 Respiratory Rate 20 20 16 Blood Pressure 93/52 L Pulse Oximetry 97 07/10/18 06:00 07/10/18 07:59 07/10/18 11:06 Temperature Pulse Rate 97 H 97 H 94 H Respiratory Rate 16 14 Blood Pressure Pulse Oximetry 95 Intake & Output 07/09/18 07/10/18 07/10/18 18:59 06:59 18:59 Intake Total 700 / 700 740 / 740 100 / 100 Output Total 575 / 575 Balance 700 / 700 165 / 165 100 / 100 Weight 96.5 kg Intake: IV 200 / 200 500 / 500 100 / 100 Maxipime Inj 2,000 MG In NS Inj 100 / 100 300 / 300 100 ML @ 200 mls/hr IV.SIG Q8H WOLF Rx#:[id number] Flagyl 500 MG Inj 100 ML @ 100 100 / 100 200 / 200 100 / 100 mls/hr IV.SIG Q8H WOLF Rx#: [id number] Oral 500 / 500 240 / 240 Output: Urine 175 / 175 Stool 400 / 400 Other: # Incontinent Voids 3 Date of Last Bowel Movement 07/09/18 07/09/18 - Constitutional no acute distress - Routine HEENT Exam Head: Present: normocephalic, atraumatic - Routine Respiratory Exam Absent: accessory muscle use - Routine Abdominal Exam Present: distended, firm. Absent: tenderness - Routine Skin Exam Present: dry, warm - Routine Neurological Exam Present: alert, oriented X3 - Urinary Catheter Management Indwelling Urethral Catheter Cath placed during this visit: yes, but has since been removed by the nurse Reason for continuing: Decision to DC catheter Insertion date: 06/27/18 Insertion time: 16:00 Removal date: 07/08/18 Removal time: 11:50 Results - Labs CBC & Chem 7: 07/10/18 08:47 07/10/18 08:47 Laboratory Results - last 24 hr 07/09/18 07/09/18 07/09/18 09:44 15:54 19:57 WBC 25.9 H RBC 3.05 L Hgb 8.8 L Hct 28.2 L MCV 92.4 MCH 28.9 MCHC 31.3 L RDW 13.6 Plt Count MPV 10.0 Prelim Diff (Auto) Slide review pending Neut % (Auto) 95.0 H Lymph % (Auto) 2.2 L [place] % (Auto) 2.3 Eos % (Auto) 0.0 Baso % (Auto) 0.5 Neut # (Auto) 24.6 H Lymph # (Auto) 0.6 L [place] # (Auto) 0.6 Eos # (Auto) 0.0 Baso # (Auto) 0.1 WBC Differential Manual diff final Diff Scan Seg Neuts % (Manual) 86 H Band Neuts % (Manual) 5 Lymphocytes % (Manual) 4 L Monocytes % (Manual) 4 Myelocytes % (Man) 1 H Abs Neuts (Manual) 23.8 H Differential Comment . Platelet Estimate Low L Platelet Morphology Normal Hematology Comments Puncture Site Patient Temperature O2 Saturation ABG pH ABG pCO2 ABG pO2 ABG HCO3 ABG O2 Content ABG Base Excess ABG Methemoglobin Raymon Test Hemoglobin Carboxyhemoglobin O2 Delivery Device Liter Flow Critical Value Sodium Potassium Chloride Carbon Dioxide Anion Gap BUN Creatinine Estimated GFR POC Glucose 267 H 302 H Random Glucose Calcium Phosphorus Magnesium Total Bilirubin AST ALT Alkaline Phosphatase Total Protein Albumin 11/08/18 11/08/18 11/08/18 00:21 04:41 08:43 WBC RBC Hgb Hct MCV MCH MCHC RDW Plt Count MPV Prelim Diff (Auto) Neut % (Auto) Lymph % (Auto) [place] % (Auto) Eos % (Auto) Baso % (Auto) Neut # (Auto) Lymph # (Auto) [place] # (Auto) Eos # (Auto) Baso # (Auto) WBC Differential Diff Scan Seg Neuts % (Manual) Band Neuts % (Manual) Lymphocytes % (Manual) Monocytes % (Manual) Myelocytes % (Man) Abs Neuts (Manual) Differential Comment Platelet Estimate Platelet Morphology Hematology Comments Puncture Site Right radial Patient Temperature 98.6 O2 Saturation 87 L* ABG pH 7.35 L ABG pCO2 46 H ABG pO2 60 L ABG HCO3 24 ABG O2 Content 10.0 L ABG Base Excess -0.5 ABG Methemoglobin 1.8 Raymon Test Present Hemoglobin 8.1 L Carboxyhemoglobin 1.3 O2 Delivery Device Nasal cannula Liter Flow 2.00 Critical Value Yes Sodium Potassium Chloride Carbon Dioxide Anion Gap BUN Creatinine Estimated GFR POC Glucose 148 H 111 H Random Glucose Calcium Phosphorus Magnesium Total Bilirubin AST ALT Alkaline Phosphatase Total Protein Albumin 07/10/18 07/10/18 07/10/18 08:47 08:47 09:26 WBC 23.4 H RBC 2.54 L Hgb 7.7 L Hct 23.4 L MCV 92.4 MCH 30.4 MCHC 32.9 RDW 13.8 Plt Count 71 L MPV 10.7 Prelim Diff (Auto) Slide review pending Neut % (Auto) 95.9 H Lymph % (Auto) 1.5 L [place] % (Auto) 2.5 Eos % (Auto) 0.0 Baso % (Auto) 0.1 Neut # (Auto) 22.4 H Lymph # (Auto) 0.4 L [place] # (Auto) 0.6 Eos # (Auto) 0.0 Baso # (Auto) 0.0 WBC Differential . Diff Scan Auto diff confirmed Seg Neuts % (Manual) Band Neuts % (Manual) Lymphocytes % (Manual) Monocytes % (Manual) Myelocytes % (Man) Abs Neuts (Manual) Differential Comment . Platelet Estimate Low L Platelet Morphology Enlarged H Hematology Comments Puncture Site Patient Temperature O2 Saturation ABG pH ABG pCO2 ABG pO2 ABG HCO3 ABG O2 Content ABG Base Excess ABG Methemoglobin Raymon Test Hemoglobin Carboxyhemoglobin O2 Delivery Device Liter Flow Critical Value Sodium 138 Potassium 4.0 Chloride 104 Carbon Dioxide 23.4 Anion Gap 11 BUN 55 H Creatinine 2.25 H Estimated GFR 35 L POC Glucose 144 H Random Glucose 149 H Calcium 7.8 L Phosphorus 4.1 Magnesium 2.1 Total Bilirubin 0.6 AST 46 H ALT 73 Alkaline Phosphatase 60 Total Protein 5.7 L Albumin 2.9 L Microbiology 07/09/18 00:30 Stool Cryptosporidium Antigen - Final Negative - No Cryptosporicium antigen detected In selected cases of patients with a history of immunosuppression or foreign travel, a full ova and parasites examination may be desired. Contact the microbiology lab if full workup is indicated and subit another specimen for testing. 07/09/18 00:30 Stool Giardia Antigen (GERONIMO) - Final Negative - No Giardia Antigen detected In selected cases of patients with a history of immunosuppression or foreign travel, a full ova and parasites examination may be desired. Contact the microbiology lab if full workup is indicated and subit another specimen for testing. - Imaging Impressions Abdomen/Pelvis CT 07/10/18 08:31 CONCLUSION: 1. There is gas and fluid distending the colon. The patient has a rectal tube in place however the rectal tube is kinked back on itself and occluded. The overall size of the colon has mildly increased when compared to previous exam. The small bowel is normal in caliber. 2. Interval development of a small left basilar effusion and atelectasis. Chest X-Ray 07/10/18 08:42 CONCLUSION: Mild patchy bilateral lung base opacity likely representing atelectasis unchanged. Small left pleural effusion now seen. Assessment and Plan - Plan Assessment Abdominal distention/ileus Pt with long standing history of constipation and is on daily narcotics at home, according to his significant other takes Aloe Vera for constipation but this has not been working Previously seen by our service earlier in this admission status post diagnostic colonoscopy on (07/02) The sigmoid colon was clear then there was significant amount of stool in the descending colon, transverse colon, and part of the sigmoid colon consistent with stool impaction. Attempted to disimpact the patient with fluid as much as possible. Rectum exam was normal. S/P decompressive colonoscopy (07/06) stool in cecum, large amount of water flush, stool section. Internal Hemorrhoids. Neostigmine given on 07/04 and 07/06 Relistor given on 07/02 and 07/03 Pt has also been on on Lactulose QID and Miralax daily (07/10) Abdomen more distended today, no output through rectal tube, CT does report rectal tube to be kinked. RN will reposition. Now has NG tube placed a few minutes prior to my exam, to LIWS with no suction yet. CT abd/pelvis WO IV contrast (07/10) There is gas and fluid distending the colon. The patient has a rectal tube in place however the rectal tube is kinked back on itself and occluded. The overall size of the colon has mildly increased when compared to previous exam. The small bowel is normal in caliber. Plan: Decompressive colonoscopy today Obtain consent Discussed with RN, working on contacting sister Continue NG to LIWS Continue rectal tube to suction NPO Further recommendations pending course Pt has been seen and examined by myself and Dr. Keith and this note is written on her behalf
--- NOTE | 2018-07-10 14:53 | P.CONNP ---
History of Present Illness Service: Nephrology Consult date: 07/10/18 Requesting Physician: Neelam Dean Reason for Consult: Acute renal failure Primary Care Provider: [facility] Chief Complaint: Hypercapnea, AMS History of Present Illness: Patient is a 73-year-old -[place] male with a history of altered mental status, COPD, he developed ileus and has abdominal distention has endoscopy of however he remains distended intra-abdominal pressure is very high and is accumulating fluids he is on oxygen mask, given Lasix 40 mg IV poor response going to have decompressive colonoscopy again Review of Systems unobtainable due to mental condition PMFSH - History History Provided By: Patient - Medical / Surgical Hx Neg / Unobtainable Medical Problems Denied: Unable to Obtain - Medical History Medical History: Medical History (Last Reviewed 07/10/18 @ 16:07 by Frankie Figueroa MD) Anxiety Asthma COPD (chronic obstructive pulmonary disease) Chronic back pain Hypertension - Surgical History Surgical History: Surgical History (Last Reviewed 07/10/18 @ 16:07 by Frankie Figueroa MD) No history of previous surgery - Family History Family History: Family History (Last Reviewed 07/10/18 @ 16:07 by Frankie Figueroa MD) Other Diabetes mellitus - Social History I have reviewed the patient's Social History: Yes - Tobacco History Second Hand Smoke Exposure: No Tobacco Use In Past 30 Days: No Smoking Status: Former smoker Tobacco Type: Cigarettes - Alcohol History How Often Do You Have a Drink Containing Alcohol: Never - Substance Use History Substance History: No History of Abuse - Travel History Recent Travel in the [place] Within the Last 8 Weeks: No Recent Travel Out of the Country Within the Last 8 Weeks: No - Immunization History Tetanus Immunization: Unsure Medications and Allergies Active Medications: Active Medications Acetaminophen (Tylenol) 650 mg PO Q4H PRN PRN Reason: Temp > 100.4 Last Admin: 07/09/18 11:20 Dose: 650 mg Hydrocodone Bitart/Acetaminophen ([place] 10/325) 1 tab PO Q4H PRN PRN Reason: pain Last Admin: 07/10/18 09:17 Dose: 1 tab Al Hydroxide/Mg Hydroxide (Milk Of Magnesia Liq) 30 ml PO Q12H PRN PRN Reason: Mild Constipation Albuterol (Duoneb Neb (Antoine)) 1 ampul NEB Q4HR NEB ANTOINE Last Admin: 07/10/18 11:05 Dose: 1 ampul Albuterol (Albuterol Neb (Prn)) 2.5 mg NEB Q2HR NEB PRN PRN Reason: DYSPNEA Artificial Tears (Tears Naturale Opth Drops) 1 drop EACH EYE Q8H [facility] Last Admin: 07/10/18 09:06 Dose: Not Given Bisacodyl (Dulcolax Supp) 10 mg RECTAL DAILY [facility] Last Admin: 07/10/18 09:06 Dose: Not Given Budesonide (Pulmocort Respule Neb) 0.5 mg NEB Q12HR NEB [facility] Last Admin: 07/10/18 07:56 Dose: 0.5 mg Chlorhexidine Gluconate (Peridex 0.12% Oral Kit) 15 ml OROPHARYNG BID@0800, 1999 [facility] Last Admin: 07/10/18 09:07 Dose: Not Given Dextrose (D50w Vial) 50 ml IV.PUSH UNSCH PRN PRN Reason: PER HYPOGLYCEMIA PROTOCOL Diltiazem HCl (Cardizem) 60 mg PO QID [facility] Last Admin: 07/10/18 13:36 Dose: 60 mg Duloxetine HCl (Cymbalta) 20 mg PO DAILY [facility] Last Admin: 06/28/18 09:09 Dose: Not Given Famotidine (Pepcid Pf Inj) 20 mg IV.PUSH Q12H [facility] Last Admin: 07/10/18 05:34 Dose: 20 mg Glucagon (Glucagon Inj) 1 mg OTHER PRN PRN PRN Reason: for Hypoglycemia Protocol Magnesium Sulfate 4 gm/ Sodium (Chloride) 100 mls @ 50 mls/hr IV.SIG UNSCH PRN PRN Reason: For Magnesium 0.9 - 1.1 mg/dL Magnesium Sulfate 2 gm/ Sodium (Chloride) 100 mls @ 50 mls/hr IV.SIG UNSCH PRN PRN Reason: For Magnesium 1.2 - 1.6 mg/dL Potassium Chloride (Kcl 40 Meq Premix Inj) 40 meq in 100 mls @ 25 mls/hr IV.SIG Q2H PRN PRN Reason: For Potassium 2.8 - 3.2 mEq/L Last Infusion: 07/04/18 09:15 Dose: Infused Potassium Chloride (Kcl 20 Meq Premix Inj) 20 meq in 100 mls @ 50 mls/hr IV.SIG Q2H PRN PRN Reason: For Potassium 3.3 - 3.5 mEq/L Potassium Chloride (Kcl 40 Meq Premix Inj) 40 meq in 100 mls @ 25 mls/hr IV.SIG UNSCH PRN PRN Reason: For Potassium 3.3 - 3.5 mEq/L Potassium Chloride (Kcl 20 Meq Premix Inj) 20 meq in 100 mls @ 50 mls/hr IV.SIG Q2H PRN PRN Reason: For Potassium 2.8 - 3.2 mEq/L Potassium Phosphate 30 mmol/ (Sodium Chloride) 260 mls @ 42 mls/hr IV.SIG UNSCH PRN PRN Reason: SEE LABEL COMMENTS Sodium Phosphate 30 mmol/ (Sodium Chloride) 260 mls @ 42 mls/hr IV.SIG UNSCH PRN PRN Reason: For Phosphorus < 2.5 mg/dL Metronidazole/Sodium Chloride (Flagyl 500 Mg Inj) 100 mls @ 100 mls/hr IV.SIG Q8H ANTOINE Last Admin: 07/10/18 13:35 Dose: 100 mls/hr Dextrose (D5w Inj) 1,000 mls @ 42 mls/hr IV.CONT .Q14M47M [facility] Last Admin: 07/09/18 19:54 Dose: Not Given Piperacillin/Tazobactam/Dextrose (Zosyn 4.5 Gm Premix) 4.5 gm in 100 mls @ 200 mls/hr IV.SIG Q6H ANTOINE Insulin Human Regular (Novolin R Correctional Sugar Inj) 0 units SQ Q4HR ANTOINE; Protocol Last Admin: 07/10/18 04:44 Dose: Not Given Lactulose (Lactulose Liq) 30 ml PO DAILY PRN PRN Reason: SEVERE CONSITIPATION Lactulose (Lactulose Liq) 30 ml PO QID [facility] Last Admin: 07/10/18 13:36 Dose: 30 ml Magnesium Oxide (Mag-Ox) 800 mg PO UNSCH PRN PRN Reason: For Magnesium 1.2 - 1.6 mg/dL Methylnaltrexone Corona (Relistor) 12 mg SQ DAILY [facility] Last Admin: 07/10/18 09:18 Dose: 12 mg Methylprednisolone Sodium Succinate (Solumedrol Inj) 40 mg IV.PUSH DAILY [facility] Last Admin: 07/09/18 09:05 Dose: 40 mg Metoclopramide HCl (Reglan Inj) 10 mg IV.PUSH Q8HR ANTOINE; Protocol Last Admin: 07/10/18 13:36 Dose: 10 mg Metoprolol Tartrate (Lopressor Inj) 2.5 mg IV.PUSH Q6H PRN PRN Reason: HEART RATE GREATER THAN 115 Last Admin: 07/01/18 01:26 Dose: 2.5 mg Miscellaneous Medication () 1 each OROPHARYNG 0000,0400,1200,1600 [facility] Last Admin: 07/10/18 13:37 Dose: 1 each Ondansetron HCl (Zofran Inj) 4 mg IV.PUSH Q6H PRN PRN Reason: NAUSEA OR VOMITING Last Admin: 07/08/18 08:53 Dose: 4 mg Pantoprazole Sodium (Protonix) 20 mg PO DAILY [facility] Last Admin: 06/28/18 09:09 Dose: Not Given Polyethylene Glycol (Miralax) 17 gm PO DAILY [facility] Last Admin: 07/10/18 09:06 Dose: 17 gm Potassium Bicarb/Potassium Chloride (K-Lyte Cl Eff) 50 meq PO UNSCH PRN PRN Reason: For Potassium 3.3 - 3.5 mEq/L Last Admin: 07/04/18 17:35 Dose: 50 meq Potassium Phosphate (K-Phos Original) 2,000 mg PO Q4H PRN PRN Reason: Phosphorus Less Than 2.5 mg/dL Last Admin: 07/05/18 23:17 Dose: 2,000 mg Potassium Phosphate (K-Phos Original) 2,000 mg PO UNSCH PRN PRN Reason: SEE LABEL COMMENTS Senna/Docusate Sodium (Maria Guadalupe-Colace) 1 tab PO BID [facility] Last Admin: 07/10/18 09:07 Dose: 1 tab Sennosides (Senokot) 17.2 mg PO Q12H PRN PRN Reason: Moderate Constipation Simethicone (Mylicon Chew) 80 mg PO [facility] Last Admin: 07/10/18 13:36 Dose: 80 mg Sodium Chloride (Ns Flush) 2 ml IV.FLUSH BID [facility] Last Admin: 07/10/18 09:06 Dose: 2 ml Sodium Chloride (Ns Flush) 2 ml IV.FLUSH PRN PRN PRN Reason: FLUSH AFTER USING IV ACCESS Last Admin: 07/09/18 09:06 Dose: 2 ml Sodium Chloride (Ns Flush) 0 ml IV.FLUSH DAILY [facility] Last Admin: 07/10/18 09:06 Dose: Not Given Sterile Water (Free Water) 250 ml G-TUBE Q6H [facility] Last Admin: 07/10/18 09:07 Dose: Not Given Terbutaline Sulfate (Brethine Inj) 1 mg SQ UNSCH PRN PRN Reason: For Extravasation Whey (Beneprotein Powder) 1 packet G-TUBE TID [facility] Last Admin: 07/10/18 13:37 Dose: Not Given Allergies Allergy/AdvReac Type Severity Reaction Status Date / Time shellfish derived Allergy Severe Anaphylaxis Verified 10/10/17 13:48 Home Medications Medication Instructions Recorded Confirmed Type cholecalciferol (vitamin D3) 1,000 unit PO DAILY 06/19/18 06/19/18 History [Vitamin D3] hydrochlorothiazide 25 mg PO DAILY 06/19/18 06/19/18 History meloxicam 15 mg PO DAILY 06/19/18 06/19/18 History omeprazole 20 mg PO DAILY 06/19/18 06/19/18 History potassium chloride 10 meq PO DAILY 06/19/18 06/19/18 History Exam Vital signs: Vital Signs 07/09/18 15:00 07/09/18 16:00 07/09/18 18:00 Temperature 98.7 F Pulse Rate 100 H 107 H 103 H Respiratory Rate 18 18 Blood Pressure 137/69 129/60 Pulse Oximetry 94 L 94 L 07/09/18 19:59 07/09/18 20:00 07/09/18 20:10 Temperature 98.3 F Pulse Rate 103 H 104 H Respiratory Rate 16 15 17 Blood Pressure 131/63 Pulse Oximetry 95 95 07/09/18 21:38 07/09/18 22:00 07/10/18 00:00 Temperature 97.5 F L Pulse Rate 102 H 100 H Respiratory Rate 20 20 Blood Pressure 131/68 Pulse Oximetry 95 07/10/18 00:35 07/10/18 01:29 07/10/18 04:00 Temperature 98.4 F Pulse Rate 101 H 99 H 95 H Respiratory Rate 17 20 Blood Pressure 93/52 L Pulse Oximetry 97 07/10/18 04:14 07/10/18 04:54 07/10/18 06:00 Temperature Pulse Rate 89 97 H Respiratory Rate 20 16 Blood Pressure Pulse Oximetry 07/10/18 07:59 07/10/18 11:06 Temperature Pulse Rate 97 H 94 H Respiratory Rate 16 14 Blood Pressure Pulse Oximetry 95 Intake & Output 07/09/18 07/10/18 07/10/18 18:59 06:59 18:59 Intake Total 700 / 700 740 / 740 100 / 100 Output Total 575 / 575 Balance 700 / 700 165 / 165 100 / 100 Weight 96.5 kg Intake: IV 200 / 200 500 / 500 100 / 100 Maxipime Inj 2,000 MG In NS Inj 100 / 100 300 / 300 100 ML @ 200 mls/hr IV.SIG Q8H ANTOINE Rx#:[id number] Flagyl 500 MG Inj 100 ML @ 100 100 / 100 200 / 200 100 / 100 mls/hr IV.SIG Q8H ANTOINE Rx#: [id number] Oral 500 / 500 240 / 240 Output: Urine 175 / 175 Stool 400 / 400 Other: # Incontinent Voids 3 Date of Last Bowel Movement 07/09/18 07/09/18 Narrative: GENERAL: Patient is critically ill on oxygen SKIN: Warm and dry. HEAD: Normocephalic. EYES: No scleral icterus. No injection or drainage. NECK: Supple, trachea midline. No JVD or lymphadenopathy. CARDIOVASCULAR: Tachycardia RESPIRATORY: Breath sounds diminished at bases wheezing present. GASTROINTESTINAL: Abdomen massive distention with increased intra-abdominal pressure EXTREMITIES: 3-4+ anasarca NEUROLOGICAL: Opens eyes Results - Lab Results 07/10/18 08:47 07/10/18 08:47 Most recent lab results ABG pH 7.35 (7.380-7.420) L 07/10/18 08:43 ABG pCO2 46 mmHg (38-42) H 07/10/18 08:43 ABG pO2 60 mmHG (61-120) L 07/10/18 08:43 ABG HCO3 24 mmol/L (22-26) 07/10/18 08:43 Calcium 7.8 mg/dL (8.5-10.1) L 07/10/18 08:47 Phosphorus 4.1 mg/dL (2.5-4.9) 07/10/18 08:47 Magnesium 2.1 mg/dL (1.5-2.5) 07/10/18 08:47 Assessment and Plan - Assessment (1) Acute renal failure Code(s): N17.9 - Acute kidney failure, unspecified Status: Acute (2) Anasarca Code(s): R60.1 - Generalized edema Status: Acute (3) Abdominal distention Code(s): R14.0 - Abdominal distension (gaseous) Status: Acute (4) Ileus Code(s): K56.7 - Ileus, unspecified Status: Acute - Plan Patient is critically ill and urine output has declined creatinine is rising 2.25 Lasix is given I will place him on Lasix drip Need decompressive endoscopy Patient is going into multiorgan failure due to increased intra-abdominal pressure May need dialysis support Check urine sodium creatinine Continue to monitor
[2018-07-10] MEDS: Furosemide Inj 100 MG in Sodium Chlor 0.9% Inj 90 ML IV.CONT SCH (17:59)
[2018-07-10] MEDS ORDERED: Phenylephrine/NS 1000 MCG/10ML Syringe IV.PUSH ONE (18:03)
[2018-07-10] MEDS ORDERED: Lidocaine PF 1% Inj 5 ML Syringe INFILTRATN ONE (18:03)
[2018-07-10] MEDS ORDERED: fentaNYL Citrate Inj 100 MCG/2 ML Ampul ONE (18:25)
--- NOTE | 2018-07-10 18:43 | GIPROC ---
[facility] [address] [facility]. [facility], [address] COLONOSCOPY PROCEDURE REPORT EXAM DATE: 07/10/2018 PATIENT NAME: Fan Curry MR #: [id number] BIRTHDATE: 1945 ENDOSCOPIST: Ann Keith MD ORDER #: [id number] DATA CENTER TECHNICIAN: Damaris Figueredo and Corina Holley STATUS: inpatient INDICATIONS: The patient is a 73 yr old male here for a colonoscopy due to colonic ileus PROCEDURE PERFORMED: colonoscopy with decompression MEDICATIONS: Per Anesthesia and None. PREP QUALITY: poor PREP TYPE:Other: ESTIMATED BLOOD LOSS: None CONSENT: The patient understands the risks and benefits of the procedure and understands that these risks include, but are not limited to: sedation, allergic reaction, infection, perforation and/or bleeding. Alternative means of evaluation and treatment include, among others: physical exam, x-rays, and/or surgical intervention. The patient elects to proceed with this endoscopic procedure. medical equipment was checked for proper function. Hand hygiene and appropriate measures for infection prevention was taken. After the risks, benefits and alternatives of the procedure were thoroughly explained, Informed consent was verified, confirmed and timeout was successfully executed by the treatment team. A digital exam revealed external hemorrhoids The Pentax [id number] endoscope was introduced through the anus and advanced to the cecum, which was identified by both the appendix and ileocecal valve. The instrument was then slowly withdrawn as the colon was fully examined. COLON FINDINGS: Ischemic ulcer cecum some semisolid stool suctioned marked decompression rectal ulcer from rectal tube hemorrhoids internal grade 2. Retroflexed views revealed internal hemorrhoids and Retroflexed views revealed medium internal hemorrhoids The scope was then completely withdrawn from the patient and the procedure terminated. ADVERSE EVENTS: There were no complications. IMPRESSIONS: 1. Ischemic ulcer cecum some semisolid stool suctioned marked decompression rectal ulcer from rectal tube hemorrhoids internal grade 2 2. Retroflexed views revealed internal hemorrhoids 3. Retroflexed views revealed medium internal hemorrhoids 4. Revealed external hemorrhoids RECOMMENDATIONS: Npo ngt to suction Reglan as ordered Relistore if no improvement consult surgery hydrocortisone suppositories abdominal x ray in am consider neostygmine if not better vs repeat decompression colonoscopy RECALL: Return 1 year Colonoscopy Ann Keith MD eSigned: Ann Keith MD 07/10/2018 6:42 PM cc: PATIENT NAME: Fan Curry MR#: [id number]
--- NOTE | 2018-07-10 20:01 | P.CONID ---
History of Present Illness Service: ID Consult date: 07/10/18 Requesting Physician: Neelam Dean Reason for Consult: leukocytosis Primary Care Provider: [facility] Chief Complaint: Hypercapnea, AMS History of Present Illness: Poor historian and also post procedure 73 yo male with DM developped chronic abdominal pain (6 mos) presented on 06/19/2018 for worsening shortness of breath due to COPD exacerbation. On 06/26 intubated 2/2 ghypercapnic resp failure Also developped ALLYSON Extubated 06/30, but re-int'd within 48 hours Fever since 07/01 On sterroids forCOPD exacerbation Also pt cont to have severe ileus and reqired several endoscopic decompressions of this large bowel I saw pt in PACU today following procedure No psuedomembaranes , C.diff negative WBC up to 25 K yday, slightly better today Still on sterroids , solumedrol 40 daily followed by hem/onc 2/2 suspected HIT (nowe rejected diagnosis), thromboacytopenia and reactive leukocytosis He is extubated, on NC Or now afebrile VSS stable CT Abdomen/Pelvis CT from 07/10/18 showed gas and fluid distending the colon. T Chest X-Ray 07/10/18 with mild patchy bilateral lung base opacity On cefepime, Flagyl since 07/02 rtoday cefepime was switche dot zosyn Review of Systems All other systems reviewed negative except as stated in HPI PMFSH - History History Provided By: Patient - Medical / Surgical Hx Neg / Unobtainable Medical Problems Denied: Unable to Obtain - Medical History Medical History: Medical History (Last Reviewed 07/10/18 @ 19:50 by Kierra Brown MD) Anxiety Asthma COPD (chronic obstructive pulmonary disease) Chronic back pain Hypertension - Surgical History Surgical History: Surgical History (Last Reviewed 07/10/18 @ 19:50 by Kierra Brown MD) No history of previous surgery - Family History Family History: Family History (Last Reviewed 07/10/18 @ 19:50 by Kierra Brown MD) Other Diabetes mellitus - Tobacco History Second Hand Smoke Exposure: No Tobacco Use In Past 30 Days: No Smoking Status: Former smoker Tobacco Type: Cigarettes - Alcohol History How Often Do You Have a Drink Containing Alcohol: Never - Substance Use History Substance History: No History of Abuse - Travel History Recent Travel in the [place] Within the Last 8 Weeks: No Recent Travel Out of the Country Within the Last 8 Weeks: No - Immunization History Tetanus Immunization: Unsure Medications and Allergies Active Medications: Active Medications Acetaminophen (Tylenol) 650 mg PO Q4H PRN PRN Reason: Temp > 100.4 Last Admin: 07/09/18 11:20 Dose: 650 mg Hydrocodone Bitart/Acetaminophen (Eliot 10/325) 1 tab PO Q4H PRN PRN Reason: pain Last Admin: 07/10/18 09:17 Dose: 1 tab Al Hydroxide/Mg Hydroxide (Milk Of Magnkashif Liq) 30 ml PO Q12H PRN PRN Reason: Mild Constipation Albuterol (Duoneb Neb (Antoine)) 1 ampul NEB Q4HR NEB [facility] Last Admin: 07/10/18 15:34 Dose: 1 ampul Albuterol (Albuterol Neb (Prn)) 2.5 mg NEB Q2HR NEB PRN PRN Reason: DYSPNEA Artificial Tears (Tears Naturale Opth Drops) 1 drop EACH EYE Q8H [facility] Last Admin: 07/10/18 16:25 Dose: Not Given Bisacodyl (Dulcolax Supp) 10 mg RECTAL DAILY [facility] Last Admin: 07/10/18 09:06 Dose: Not Given Budesonide (Pulmocort Respule Neb) 0.5 mg NEB Q12HR NEB [facility] Last Admin: 07/10/18 07:56 Dose: 0.5 mg Chlorhexidine Gluconate (Peridex 0.12% Oral Kit) 15 ml OROPHARYNG BID@0800, 2000 [facility] Last Admin: 07/10/18 09:07 Dose: Not Given Dextrose (D50w Vial) 50 ml IV.PUSH UNSCH PRN PRN Reason: PER HYPOGLYCEMIA PROTOCOL Diltiazem HCl (Cardizem) 60 mg PO QID [facility] Last Admin: 07/10/18 13:36 Dose: 60 mg Duloxetine HCl (Cymbalta) 20 mg PO DAILY [facility] Last Admin: 06/28/18 09:09 Dose: Not Given Famotidine (Pepcid Pf Inj) 10 mg IV.PUSH Q12H ANTOINE Glucagon (Glucagon Inj) 1 mg OTHER PRN PRN PRN Reason: for Hypoglycemia Protocol Hydrocortisone Acetate (Hemorrhoidal Hc Supp) 25 mg RECTAL BID [facility] Magnesium Sulfate 4 gm/ Sodium (Chloride) 100 mls @ 50 mls/hr IV.SIG UNSCH PRN PRN Reason: For Magnesium 0.9 - 1.1 mg/dL Magnesium Sulfate 2 gm/ Sodium (Chloride) 100 mls @ 50 mls/hr IV.SIG UNSCH PRN PRN Reason: For Magnesium 1.2 - 1.6 mg/dL Potassium Chloride (Kcl 40 Meq Premix Inj) 40 meq in 100 mls @ 25 mls/hr IV.SIG Q2H PRN PRN Reason: For Potassium 2.8 - 3.2 mEq/L Last Infusion: 07/04/18 09:15 Dose: Infused Potassium Chloride (Kcl 20 Meq Premix Inj) 20 meq in 100 mls @ 50 mls/hr IV.SIG Q2H PRN PRN Reason: For Potassium 3.3 - 3.5 mEq/L Potassium Chloride (Kcl 40 Meq Premix Inj) 40 meq in 100 mls @ 25 mls/hr IV.SIG UNSCH PRN PRN Reason: For Potassium 3.3 - 3.5 mEq/L Potassium Chloride (Kcl 20 Meq Premix Inj) 20 meq in 100 mls @ 50 mls/hr IV.SIG Q2H PRN PRN Reason: For Potassium 2.8 - 3.2 mEq/L Potassium Phosphate 30 mmol/ (Sodium Chloride) 260 mls @ 42 mls/hr IV.SIG UNSCH PRN PRN Reason: SEE LABEL COMMENTS Sodium Phosphate 30 mmol/ (Sodium Chloride) 260 mls @ 42 mls/hr IV.SIG UNSCH PRN PRN Reason: For Phosphorus < 2.5 mg/dL Metronidazole/Sodium Chloride (Flagyl 500 Mg Inj) 100 mls @ 100 mls/hr IV.SIG Q8H [facility] Last Admin: 07/10/18 13:35 Dose: 100 mls/hr Dextrose (D5w Inj) 1,000 mls @ 42 mls/hr IV.CONT .[id number] [facility] Last Admin: 07/09/18 19:54 Dose: Not Given Piperacillin/Tazobactam/Dextrose (Zosyn 4.5 Gm Premix) 4.5 gm in 100 mls @ 200 mls/hr IV.SIG Q6H [facility] Last Admin: 07/10/18 16:24 Dose: 200 mls/hr Furosemide 100 mg/ Sodium (Chloride) 100 mls @ 10 mls/hr IV.CONT .Q10H [facility] Last Admin: 07/10/18 17:59 Dose: 10 mls/hr Insulin Human Regular (Novolin R Correctional Sugar Inj) 0 units SQ Q4HR [facility]; Protocol Last Admin: 07/10/18 16:43 Dose: Not Given Lactulose (Lactulose Liq) 30 ml PO DAILY PRN PRN Reason: SEVERE CONSITIPATION Lactulose (Lactulose Liq) 30 ml PO QID [facility] Last Admin: 07/10/18 13:36 Dose: 30 ml Magnesium Oxide (Mag-Ox) 800 mg PO UNSCH PRN PRN Reason: For Magnesium 1.2 - 1.6 mg/dL Methylnaltrexone Kirksey (Relistor) 12 mg SQ DAILY [facility] Last Admin: 07/10/18 09:18 Dose: 12 mg Methylprednisolone Sodium Succinate (Solumedrol Inj) 40 mg IV.PUSH DAILY [facility] Last Admin: 07/10/18 09:00 Dose: 40 mg Metoclopramide HCl (Reglan Inj) 10 mg IV.PUSH Q8HR [facility]; Protocol Last Admin: 07/10/18 13:36 Dose: 10 mg Metoprolol Tartrate (Lopressor Inj) 2.5 mg IV.PUSH Q6H PRN PRN Reason: HEART RATE GREATER THAN 115 Last Admin: 07/01/18 01:26 Dose: 2.5 mg Miscellaneous Information ([facility] Nursing Information) 1 each OTHER UNSCH PRN PRN Reason: SEE LABEL COMMENTS Stop: 07/11/18 18:49 Miscellaneous Medication () 1 each OROPHARYNG 0000,0400,1200,1600 [facility] Last Admin: 07/10/18 16:25 Dose: 1 each Ondansetron HCl (Zofran Inj) 4 mg IV.PUSH Q6H PRN PRN Reason: NAUSEA OR VOMITING Last Admin: 07/08/18 08:53 Dose: 4 mg Pantoprazole Sodium (Protonix) 20 mg PO DAILY [facility] Last Admin: 06/28/18 09:09 Dose: Not Given Polyethylene Glycol (Miralax) 17 gm PO DAILY [facility] Last Admin: 07/10/18 09:06 Dose: 17 gm Potassium Bicarb/Potassium Chloride (K-Lyte Cl Eff) 50 meq PO UNSCH PRN PRN Reason: For Potassium 3.3 - 3.5 mEq/L Last Admin: 07/04/18 17:35 Dose: 50 meq Potassium Phosphate (K-Phos Original) 2,000 mg PO Q4H PRN PRN Reason: Phosphorus Less Than 2.5 mg/dL Last Admin: 07/05/18 23:17 Dose: 2,000 mg Potassium Phosphate (K-Phos Original) 2,000 mg PO UNSCH PRN PRN Reason: SEE LABEL COMMENTS Senna/Docusate Sodium (Maria Guadalupe-Colace) 1 tab PO BID [facility] Last Admin: 07/10/18 09:07 Dose: 1 tab Sennosides (Senokot) 17.2 mg PO Q12H PRN PRN Reason: Moderate Constipation Simethicone (Mylicon Chew) 80 mg PO [facility] Last Admin: 07/10/18 13:36 Dose: 80 mg Sodium Chloride (Ns Flush) 2 ml IV.FLUSH BID [facility] Last Admin: 07/10/18 09:06 Dose: 2 ml Sodium Chloride (Ns Flush) 2 ml IV.FLUSH PRN PRN PRN Reason: FLUSH AFTER USING IV ACCESS Last Admin: 07/09/18 09:06 Dose: 2 ml Sodium Chloride (Ns Flush) 0 ml IV.FLUSH DAILY [facility] Last Admin: 07/10/18 09:06 Dose: Not Given Sterile Water (Free Water) 250 ml G-TUBE Q6H [facility] Last Admin: 07/10/18 16:24 Dose: Not Given Terbutaline Sulfate (Brethine Inj) 1 mg SQ UNSCH PRN PRN Reason: For Extravasation Whey (Beneprotein Powder) 1 packet G-TUBE TID [facility] Last Admin: 07/10/18 17:56 Dose: Not Given Allergies Allergy/AdvReac Type Severity Reaction Status Date / Time shellfish derived Allergy Severe Anaphylaxis Verified 10/10/17 13:48 Home Medications Medication Instructions Recorded Confirmed Type cholecalciferol (vitamin D3) 1,000 unit PO DAILY 06/19/18 06/19/18 History [Vitamin D3] hydrochlorothiazide 25 mg PO DAILY 06/19/18 06/19/18 History meloxicam 15 mg PO DAILY 06/19/18 06/19/18 History omeprazole 20 mg PO DAILY 06/19/18 06/19/18 History potassium chloride 10 meq PO DAILY 06/19/18 06/19/18 History Exam Vital signs: Vital Signs 07/09/18 19:59 07/09/18 20:00 07/09/18 20:10 Temperature 98.3 F Pulse Rate 103 H 104 H Respiratory Rate 16 15 17 Blood Pressure 131/63 Pulse Oximetry 95 95 07/09/18 21:38 07/09/18 22:00 07/10/18 00:00 Temperature 97.5 F L Pulse Rate 102 H 100 H Respiratory Rate 20 20 Blood Pressure 131/68 Pulse Oximetry 95 07/10/18 00:35 07/10/18 01:29 07/10/18 04:00 Temperature 98.4 F Pulse Rate 101 H 99 H 95 H Respiratory Rate 17 20 Blood Pressure 93/52 L Pulse Oximetry 97 07/10/18 04:14 07/10/18 04:54 07/10/18 06:00 Temperature Pulse Rate 89 97 H Respiratory Rate 20 16 Blood Pressure Pulse Oximetry 07/10/18 07:59 07/10/18 08:00 07/10/18 09:00 Temperature Pulse Rate 97 H 103 H 113 H Respiratory Rate 16 22 29 H Blood Pressure 105/57 L 102/58 L Pulse Oximetry 95 95 89 L 07/10/18 09:57 07/10/18 10:00 07/10/18 10:01 Temperature Pulse Rate 105 H 105 H 105 H Respiratory Rate 12 12 12 Blood Pressure 115/58 L 123/104 H Pulse Oximetry 95 96 96 07/10/18 10:15 07/10/18 11:00 07/10/18 11:06 Temperature Pulse Rate 101 H 95 H 94 H Respiratory Rate 11 L 10 L 14 Blood Pressure 126/62 140/69 Pulse Oximetry 97 94 L 07/10/18 12:00 07/10/18 13:00 07/10/18 14:00 Temperature Pulse Rate 103 H 104 H 105 H Respiratory Rate 12 17 13 Blood Pressure 141/67 H 137/61 Pulse Oximetry 93 L 94 L 94 L 07/10/18 14:36 07/10/18 15:00 07/10/18 15:35 Temperature Pulse Rate 105 H 105 H 97 H Respiratory Rate 13 15 19 Blood Pressure 133/70 134/64 Pulse Oximetry 95 94 L 07/10/18 16:00 07/10/18 16:55 07/10/18 18:50 Temperature Pulse Rate 101 H 104 H 103 H Respiratory Rate 14 18 17 Blood Pressure 131/70 148/62 H 145/58 H Pulse Oximetry 99 96 97 Intake & Output 07/10/18 07/10/18 07/11/18 06:59 18:59 06:59 Intake Total 740 / 740 400 / 400 Output Total 575 / 575 Balance 165 / 165 400 / 400 Weight 96.5 kg Intake: IV 500 / 500 200 / 200 Maxipime Inj 2,000 MG In NS Inj 300 / 300 100 ML @ 200 mls/hr IV.SIG Q8H ANTOINE Rx#:[id number] Zosyn 4.5 GM Premix 4.5 gm In 100 / 100 100 ml @ 200 mls/hr IV.SIG Q6H ANTOINE Rx#:[id number] Flagyl 500 MG Inj 100 ML @ 100 200 / 200 100 / 100 mls/hr IV.SIG Q8H ANTOINE Rx#: [id number] Oral 240 / 240 Anesthesia Amount 200 / 200 Output: Urine 175 / 175 Stool 400 / 400 Other: Date of Last Bowel Movement 07/09/18 07/09/18 - Constitutional no acute distress, obese - Routine HEENT Exam Head: Present: normocephalic, atraumatic Eye: Present: EOMI, PERRL. Absent: conjunctival icterus ENT: Present: mucous membranes moist, oropharynx clear - Routine Neck Exam Present: supple, full ROM - Routine Respiratory Exam Present: decreased breath sounds, CTA bilaterally. Absent: accessory muscle use - Routine Cardiovascular Exam Present: RRR, S1, S2. Absent: murmur, gallop, rubs - Routine Abdominal Exam Present: soft, distended. Absent: normoactive bowel sounds, tenderness, firm, organomegaly, mass, hernia - Detailed Abdominal Exam Bowel sounds: hypoactive - Routine Exam Penile: Present: swelling Scrotal: Present: swelling - Routine Extremities Exam Present: edema (2+). Absent: cyanosis, clubbing - Routine Skin Exam Present: dry, warm. Absent: cyanosis - Routine Neurological Exam Present: oriented X3, CN II-XII intact. Absent: sensory deficit, motor deficit lethargic, but arousable - Routine Psychiatric Exam Present: unable to assess Comments: pt is easily doses off Results - Labs CBC & Chem 7: 07/10/18 08:47 07/10/18 08:47 Labs: Laboratory Results - last 24 hr 07/09/18 07/09/18 07/10/18 09:44 19:57 00:21 WBC 25.9 H RBC 3.05 L Hgb 8.8 L Hct 28.2 L MCV 92.4 MCH 28.9 MCHC 31.3 L RDW 13.6 Plt Count MPV 10.0 Prelim Diff (Auto) Slide review pending Neut % (Auto) 95.0 H Lymph % (Auto) 2.2 L Ward % (Auto) 2.3 Eos % (Auto) 0.0 Baso % (Auto) 0.5 Neut # (Auto) 24.6 H Lymph # (Auto) 0.6 L Ward # (Auto) 0.6 Eos # (Auto) 0.0 Baso # (Auto) 0.1 WBC Differential Manual diff final Diff Scan Seg Neuts % (Manual) 86 H Band Neuts % (Manual) 5 Lymphocytes % (Manual) 4 L Monocytes % (Manual) 4 Myelocytes % (Man) 1 H Abs Neuts (Manual) 23.8 H Differential Comment Platelet Estimate Low L Platelet Morphology Normal Hematology Comments Puncture Site Patient Temperature O2 Saturation ABG pH ABG pCO2 ABG pO2 ABG HCO3 ABG O2 Content ABG Base Excess ABG Methemoglobin Raymon Test Hemoglobin Carboxyhemoglobin O2 Delivery Device Liter Flow Critical Value Sodium Potassium Chloride Carbon Dioxide Anion Gap BUN Creatinine Estimated GFR POC Glucose 302 H 148 H Random Glucose Calcium Phosphorus Magnesium Total Bilirubin AST ALT Alkaline Phosphatase Total Protein Albumin 07/10/18 07/10/18 07/10/18 04:41 08:43 08:47 WBC 23.4 H RBC 2.54 L Hgb 7.7 L Hct 23.4 L MCV 92.4 MCH 30.4 MCHC 32.9 RDW 13.8 Plt Count 71 L MPV 10.7 Prelim Diff (Auto) Slide review pending Neut % (Auto) 95.9 H Lymph % (Auto) 1.5 L Ward % (Auto) 2.5 Eos % (Auto) 0.0 Baso % (Auto) 0.1 Neut # (Auto) 22.4 H Lymph # (Auto) 0.4 L Ward # (Auto) 0.6 Eos # (Auto) 0.0 Baso # (Auto) 0.0 WBC Differential . Diff Scan Auto diff confirmed Seg Neuts % (Manual) Band Neuts % (Manual) Lymphocytes % (Manual) Monocytes % (Manual) Myelocytes % (Man) Abs Neuts (Manual) Differential Comment . Platelet Estimate Low L Platelet Morphology Enlarged H Hematology Comments Puncture Site Right radial Patient Temperature 98.6 O2 Saturation 87 L* ABG pH 7.35 L ABG pCO2 46 H ABG pO2 60 L ABG HCO3 24 ABG O2 Content 10.0 L ABG Base Excess -0.5 ABG Methemoglobin 1.8 Raymon Test Present Hemoglobin 8.1 L Carboxyhemoglobin 1.3 O2 Delivery Device Nasal cannula Liter Flow 2.00 Critical Value Yes Sodium Potassium Chloride Carbon Dioxide Anion Gap BUN Creatinine Estimated GFR POC Glucose 111 H Random Glucose Calcium Phosphorus Magnesium Total Bilirubin AST ALT Alkaline Phosphatase Total Protein Albumin 07/10/18 07/10/18 07/10/18 08:47 09:26 16:20 WBC RBC Hgb Hct MCV MCH MCHC RDW Plt Count MPV Prelim Diff (Auto) Neut % (Auto) Lymph % (Auto) Ward % (Auto) Eos % (Auto) Baso % (Auto) Neut # (Auto) Lymph # (Auto) Ward # (Auto) Eos # (Auto) Baso # (Auto) WBC Differential Diff Scan Seg Neuts % (Manual) Band Neuts % (Manual) Lymphocytes % (Manual) Monocytes % (Manual) Myelocytes % (Man) Abs Neuts (Manual) Differential Comment Platelet Estimate Platelet Morphology Hematology Comments Puncture Site Patient Temperature O2 Saturation ABG pH ABG pCO2 ABG pO2 ABG HCO3 ABG O2 Content ABG Base Excess ABG Methemoglobin Raymon Test Hemoglobin Carboxyhemoglobin O2 Delivery Device Liter Flow Critical Value Sodium 138 Potassium 4.0 Chloride 104 Carbon Dioxide 23.4 Anion Gap 11 BUN 55 H Creatinine 2.25 H Estimated GFR 35 L POC Glucose 144 H 221 H Random Glucose 149 H Calcium 7.8 L Phosphorus 4.1 Magnesium 2.1 Total Bilirubin 0.6 AST 46 H ALT 73 Alkaline Phosphatase 60 Total Protein 5.7 L Albumin 2.9 L 07/10/18 19:07 WBC RBC Hgb Hct MCV MCH MCHC RDW Plt Count MPV Prelim Diff (Auto) Neut % (Auto) Lymph % (Auto) Ward % (Auto) Eos % (Auto) Baso % (Auto) Neut # (Auto) Lymph # (Auto) Ward # (Auto) Eos # (Auto) Baso # (Auto) WBC Differential Diff Scan Seg Neuts % (Manual) Band Neuts % (Manual) Lymphocytes % (Manual) Monocytes % (Manual) Myelocytes % (Man) Abs Neuts (Manual) Differential Comment Platelet Estimate Platelet Morphology Hematology Comments Puncture Site Patient Temperature O2 Saturation ABG pH ABG pCO2 ABG pO2 ABG HCO3 ABG O2 Content ABG Base Excess ABG Methemoglobin Raymon Test Hemoglobin Carboxyhemoglobin O2 Delivery Device Liter Flow Critical Value Sodium Potassium Chloride Carbon Dioxide Anion Gap BUN Creatinine Estimated GFR POC Glucose 203 H Random Glucose Calcium Phosphorus Magnesium Total Bilirubin AST ALT Alkaline Phosphatase Total Protein Albumin - Imaging Impressions Abdomen/Pelvis CT 07/10/18 08:31 CONCLUSION: 1. There is gas and fluid distending the colon. The patient has a rectal tube in place however the rectal tube is kinked back on itself and occluded. The overall size of the colon has mildly increased when compared to previous exam. The small bowel is normal in caliber. 2. Interval development of a small left basilar effusion and atelectasis. Chest X-Ray 07/10/18 08:42 CONCLUSION: Mild patchy bilateral lung base opacity likely representing atelectasis unchanged. Small left pleural effusion now seen. Assessment and Plan - Plan Gio's syndrome Leukocytosis COPD Leukocytosis - nadine 2/2 sterroids PNA - nl resp justyn on the sputum clx s/p 8 days of abx ALLYSON check urine eos dc flagyl cont zosyn for now repeat UA, blood clx will plan to dc abx if no e/o infection on w/u
[2018-07-10 22:26] LABS: Creatinine,Urine Random 48 mg/dL (27-300); Sodium,Urine Random 40 meq/L
[2018-07-10] MEDS: Dextrose 5% in Water Inj 1,000 ML IV.CONT SCH (23:34)
[2018-07-11] MEDS: dilTIAZem 60 MG Tablet PO SCH ×5 (00:36→21:25)
[2018-07-11] MEDS: Senna/Docusate Sodium 8.6/50 MG Tablet PO SCH ×3 (00:36→21:26)
[2018-07-11] MEDS: Piperacil/Tazo 4.5 GM Premix 4.5 GM/100 ML BAG IV.SIG SCH ×4 (00:36→15:43)
[2018-07-11] MEDS: Simethicone 80 MG Chew Tablet PO SCH ×5 (00:36→21:26)
[2018-07-11] MEDS: Hydrocortisone Acetate 25 MG Supp RECTAL SCH ×3 (00:36→21:26)
[2018-07-11] MEDS: Oral Hygiene Kit OROPHARYNG SCH ×4 (00:37→16:25)
[2018-07-11] MEDS: Artificial Tears Opth Drops 15 ML Bottle EACH EYE SCH ×3 (00:37→17:43)
[2018-07-11] MEDS: Insulin NovoLIN Regular Correctional Sugar Inj SQ SCH ×6 (00:37→21:25)
[2018-07-11] MEDS: Furosemide Inj 100 MG in Sodium Chlor 0.9% Inj 90 ML IV.CONT SCH (02:54)
[2018-07-11 03:20] LABS: Albumin 2.6 g/dL (3.4-5.0); Anion Gap 11 meq/L (5-15); Aspartate Aminotransferase 42 U/L (15-37); Blood Urea Nitrogen 62 mg/dL (7-18); Calcium 7.5 mg/dL (8.5-10.1); Carbon Dioxide 25.9 meq/L (21.0-32.0); Chloride 103 meq/L (98-107); Glomerular Filtration Rate 25 mL/min (>89); Glucose,Random 173 mg/dL (74-106); Magnesium 2.1 mg/dL (1.5-2.5); Potassium 3.8 meq/L (3.5-5.1); Sodium 140 meq/L (136-145)
[2018-07-11 03:24] LABS: Alanine Aminotransferase 65 U/L (12-78); Alkaline Phosphatase 58 U/L (45-117); Phosphorus 5.7 mg/dL (2.5-4.9); Total Protein 5.5 g/dL (6.4-8.2)
[2018-07-11] MEDS: Famotidine PF Inj 20 MG/2 ML Vial IV.PUSH SCH ×2 (05:48→17:45)
[2018-07-11] MEDS: Dextrose 5% in Water Inj 1,000 ML IV.CONT SCH (07:00)
--- NOTE | 2018-07-11 07:11 | P.PNCC ---
Subjective Subjective Remarks/Hospital Course: Mr. Curry is a 73-year-old -[place] male with past medical history significant for COPD on 3 L nasal cannula, hypertension, hyperlipidemia and anxiety who was admitted to the hospitalist service on 06/19/2018 for worsening shortness of breath due to COPD exacerbation. He was treated with IV Solu- Medrol, IV antibiotics, breathing treatments gradually improved. Patient was also complaining about dyspepsia and underwent EGD by GI yesterday. Per report the EGD was normal but patient developed worsening shortness of breath and COPD exacerbation postprocedure, possibly from aspiration after sedated. Two ABGs done yesterday showed hypercapnic respiratory failure second 1 was on BiPAP and this was improved with pH 7.3 with PCO2 of 74. Patient remained on BiPAP overnight however was noticed to be lethargic today a.m., stat ABG showed pH of 7.21 PCO2 110 PO2 88 while on BiPAP. Patient was lethargic intermittently dozing off due to CO2 narcosis. Critical care medicine was consulted and I immediately evaluated the patient. Patient had obviously failed BiPAP I proceeded with endotracheal intubation placed on mechanical ventilation. Postintubation I have ordered single dose of Solu-Medrol 125 mg x1 continue Solu -Medrol 60 every 8, discontinue ceftriaxone and start cefepime 2 g IV every 8 hours continue azithromycin. Add budesonide inhaled, placed on scheduled DuoNeb every 4 hours and as needed. 06/27: Patient was intubated yesterday for severe hypercapnic respiratory failure. Currently remains intubated sedated and intubated remains diminished bilaterally. Heavily sedated for ventilator synchrony 06/28: Urine output significantly improved with fluid resuscitation. Creat down trending now 2 from 2.3, UO >3.3 L. Remains intubated sedated. Will initiate daily sedation vacation and CPAP trials 06/29: More awake today tolerating CPAP trials intermittently follows commands but gets agitated/frustrated fast. Urine output remains excellent creatinine 1.4. However sodium increasing 158 today. 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 Due to hypoglycemia will change to quarter normal saline at 150 mL/h repeat CMP in the afternoon 06/30 Patient was extubated yesterday. Awake 07/01 Patient is lying in bed in NAD. T: 100.5 07/02: Intubated early this morning due to acute hypoxic respiratory failure. Central line placed due to hypotension. Plan for GI perform endoscopic decompression of this large bowel today. Arousable and does follow commands. Placed on argatroban SUBJECTIVE: 07/03: Currently, intubated with borderline blood pressure. Central line placed yesterday due to hypotension. Did not move bowels despite 1 L of fluid from colonoscopy yesterday and multiple laxatives provided. See orders for additional laxatives today. Might need neostigmine. 07/04 Patient remains intubated and sedated with Diprivan. Given Neostigmine last night. KUB this morning showed colonic ileus. Afebrile. On Argatroban. 07/05 No events overnight, sedated with Diprivan and intubated. Off Argatroban. 07/06 Patient remains intubated and sedated. Afebrile. 07/07 Patient remains intubated, s/p decompressive colonoscopy yesterday. Awake. 07/08 Patient s/p extubation yesterday. Awake and alert. 07/09 Patient is awake, alert lying in bed in NAD. Afebrile. 07/10 Patient is awake and alert, Afebrile. 07/11 Patient s/p decompressive colonoscopy yesterday. Afebrile. On Lasix drip.( UOP: 2800ml overnight). Cr: 3.0 from 2.25. Objective Vital Signs / I&O: Vital Signs 07/10/18 07:59 07/10/18 08:00 07/10/18 09:00 Temperature Pulse Rate 97 H 103 H 113 H Respiratory Rate 16 22 29 H Blood Pressure 105/57 L 102/58 L Pulse Oximetry 95 95 89 L 07/10/18 09:57 07/10/18 10:00 07/10/18 10:01 Temperature Pulse Rate 105 H 105 H 105 H Respiratory Rate 12 12 12 Blood Pressure 115/58 L 123/104 H Pulse Oximetry 95 96 96 07/10/18 10:15 07/10/18 11:00 07/10/18 11:06 Temperature Pulse Rate 101 H 95 H 94 H Respiratory Rate 11 L 10 L 14 Blood Pressure 126/62 140/69 Pulse Oximetry 97 94 L 07/10/18 12:00 07/10/18 13:00 07/10/18 14:00 Temperature Pulse Rate 103 H 104 H 105 H Respiratory Rate 12 17 13 Blood Pressure 141/67 H 137/61 Pulse Oximetry 93 L 94 L 94 L 07/10/18 14:36 07/10/18 15:00 07/10/18 15:35 Temperature Pulse Rate 105 H 105 H 97 H Respiratory Rate 13 15 19 Blood Pressure 133/70 134/64 Pulse Oximetry 95 94 L 07/10/18 16:00 07/10/18 16:55 07/10/18 18:50 Temperature Pulse Rate 101 H 104 H 103 H Respiratory Rate 14 18 17 Blood Pressure 131/70 148/62 H 145/58 H Pulse Oximetry 99 96 97 07/10/18 20:00 07/10/18 20:16 07/10/18 22:00 Temperature 97.8 F Pulse Rate 103 H 105 H 103 H Respiratory Rate 14 21 Blood Pressure 135/65 Pulse Oximetry 96 97 07/10/18 23:55 07/11/18 00:00 07/11/18 02:00 Temperature 98.2 F Pulse Rate 105 H 106 H 107 H Respiratory Rate 18 16 Blood Pressure 127/57 L Pulse Oximetry 96 07/11/18 03:27 07/11/18 04:00 Temperature 98.7 F Pulse Rate 103 H 109 H Respiratory Rate 12 15 Blood Pressure 139/62 Pulse Oximetry 100 Intake & Output 07/10/18 07/10/18 07/11/18 06:59 18:59 06:59 Intake Total 740 / 740 400 / 400 500 / 500 Output Total 575 / 575 Balance 165 / 165 400 / 400 500 / 500 Weight 96.5 kg Intake: IV 500 / 500 200 / 200 500 / 500 Lasix Inj 100 MG In NS Inj 90 100 / 100 ML @ 10 mls/hr IV.CONT .Q10H [facility]OLF Rx#:[id number] Maxipime Inj 2,000 MG In NS Inj 300 / 300 100 ML @ 200 mls/hr IV.SIG Q8H WOLF Rx#:[id number] Zosyn 4.5 GM Premix 4.5 gm In 100 / 100 200 / 200 100 ml @ 200 mls/hr IV.SIG Q6H WOLF Rx#:[id number] Flagyl 500 MG Inj 100 ML @ 100 200 / 200 100 / 100 200 / 200 mls/hr IV.SIG Q8H WOLF Rx#: [id number] Oral 240 / 240 Anesthesia Amount 200 / 200 Output: Urine 175 / 175 Stool 400 / 400 Other: Date of Last Bowel Movement 07/09/18 07/09/18 Result Diagrams: 07/10/18 08:47 07/11/18 02:48 Other Results: Laboratory Results - last 12 hr 07/10/18 07/10/18 07/10/18 19:07 20:50 20:50 Sodium Potassium Chloride Carbon Dioxide Anion Gap BUN Creatinine Estimated GFR POC Glucose 203 H Random Glucose Lactic Acid Calcium Phosphorus Magnesium Total Bilirubin AST ALT Alkaline Phosphatase Total Protein Albumin Procalcitonin Urine Eosinophils None seen Ur Random Creatinine 48 Ur Random Sodium 40 07/11/18 07/11/18 07/11/18 00:04 02:48 02:48 Sodium Potassium Chloride Carbon Dioxide Anion Gap BUN Creatinine Estimated GFR POC Glucose 161 H Random Glucose Lactic Acid 1.1 Calcium Phosphorus Magnesium Total Bilirubin AST ALT Alkaline Phosphatase Total Protein Albumin Procalcitonin 0.67 H Urine Eosinophils Ur Random Creatinine Ur Random Sodium 07/11/18 07/11/18 02:48 04:30 Sodium 140 Potassium 3.8 Chloride 103 Carbon Dioxide 25.9 Anion Gap 11 BUN 62 H Creatinine 3.00 H Estimated GFR 25 L POC Glucose 184 H Random Glucose 173 H Lactic Acid Calcium 7.5 L Phosphorus 5.7 H D Magnesium 2.1 Total Bilirubin 0.7 AST 42 H ALT 65 Alkaline Phosphatase 58 Total Protein 5.5 L Albumin 2.6 L Procalcitonin Urine Eosinophils Ur Random Creatinine Ur Random Sodium Imaging: Abdomen Ultrasound 06/21/18 00:00 CONCLUSION: 1. No ascites is identified within the abdomen. Abdomen/Bladder Ultrasound 06/28/18 00:00 CONCLUSION: 1. Echogenic kidneys characteristic of medical renal disease. No hydronephrosis. Bladder decompressed by [facility] Chest CTA 07/02/18 00:00 CONCLUSION: 1. No pulmonary embolus. 2. Diffuse but basilar predominant bilateral airspace disease. 3. Endotracheal and endobronchial secretions are demonstrated. 4. Moderate emphysema. 5. Left ventricular hypertrophy. Venous Doppler Study 07/02/18 00:00 CONCLUSION: 1. Limited, no evidence for thrombosis. Abdomen X-Ray 07/09/18 07:14 CONCLUSION: 1. Apparent interval removal of NGT. 2. Improving bowel gas pattern consistent with improving adynamic ileus. Abdomen/Pelvis CT 07/10/18 08:31 CONCLUSION: 1. There is gas and fluid distending the colon. The patient has a rectal tube in place however the rectal tube is kinked back on itself and occluded. The overall size of the colon has mildly increased when compared to previous exam. The small bowel is normal in caliber. 2. Interval development of a small left basilar effusion and atelectasis. Chest X-Ray 07/10/18 08:42 CONCLUSION: Mild patchy bilateral lung base opacity likely representing atelectasis unchanged. Small left pleural effusion now seen. Objective Remarks: GENERAL: Patient is 73 yo lying in bed in NAD SKIN: Warm and dry. HEAD: Normocephalic. EYES: No scleral icterus. No injection or drainage. NECK: Supple, trachea midline. No JVD or lymphadenopathy. CARDIOVASCULAR:tachycardic without murmurs, gallops, or rubs. RESPIRATORY: B/l equal air entry GASTROINTESTINAL: Abdomen distended. Protuberant. hypoactive BS MUSCULOSKELETAL: No significant peripheral edema. Neuro: Awake and alert Assessment and Plan - Assessment and Plan Plan: ASSESSMENT: Acute hypercapnic respiratory failure Acute COPD exacerbation Altered mental status due to CO2 narcosis Acute kidney injury/failure Hypertension Leukocytosis Hyperglycemia COPD Hypernatremia Colonic ileus PLAN: NEURO: -Monitor neuro status, -Awake and alert RESP: -Continue with oxygen keep sats >92% -Extubated 06/29. Reintubated 07/02 extubated 07/07 -DuoNeb every 4 hours scheduled and as needed -Solu-Medrol 40 mg daily -Inhaled budesonide -NIPPV PRN for resp distress -07/02 CTA chest:No PE, bibasilar air space disease -07/02 Doppler US LE negative DVT -CXR 07/10: Mild patchy bilateral lung base opacity likely representing atelectasis unchanged. Small left pleural effusion CV: - Monitor HR and BP keep MAP>65mmHg -Continue with BP meds, Cardizem 60mg Q6, GI: -Check KUB today and consult Gen. surgery -Check KUB abdomen. Monitor IAP -s/p repeat decompressive colonoscopy 07/10 07/10: CT abd/pelvis: There is gas and fluid distending the colon. The overall size of the colon has mildly increased when compared to previous exam. The small bowel is normal in caliber. - 07/09 KUB abdomen: Improving bowel gas pattern consistent with improving adynamic ileus. -IV famotidine -Rectal tube to suction -CT abd/pelvis 07/02 :Colonic distention most likely representing moderate adynamic ileus. However, distal sigmoid colon is decompressed and a sigmoid stricture is conceivable but considered less likely -GI for decompression 07/02. On docusate sodium/senna 1 tablet twice daily, lactulose 30 cc 4 times daily, -KUB 07/04- colonic ileus, -KUB 07/05: No significant interval change with persistent diffuse air-filled distention of the colon suggesting ileus. -GI follow s/p decompressive colonoscopy 07/06 -KUB 07/07: Gaseous distention of multiple bowel loops has improved since previous study. FEN/: -Monitor renal function, I/O's, avoid nephrotoxins - On Lasix drip per renal- Dr. Figueroa -Cr:3.0 from 2.25 UOP: 2800ml overnight) ID: -Continue Zosyn Monitor for signs of infections ( Fever, WBC) -Follow up on BC from 07/11 -07/02 BC: NGTS, sputum cx 07/02:normal resp justyn -ID is following- Dr. Brown HEME: -Monitor CBC, coags, Hep PLT is positive. ANNMARIE negative. Hematology is following. Off argatroban drip ENDO: -Electrolyte replacement per protocol -Sliding scale insulin medium scale PROPH: -Bilateral lower extremity SCDs. PPI , -Doppler US LE negative DVT 07/02 LINES: -Utilize peripheral IVs, Level 3
[2018-07-11] MEDS: Chlorhexidine 0.12% Oral Kit 15 ML UDC OROPHARYNG SCH ×2 (08:51→21:25)
[2018-07-11] MEDS: MethylPREDNISolone Sod Succinate Inj 40 MG/ML Vial IV.PUSH SCH (08:52)
[2018-07-11] MEDS: Polyethylene Glycol 3350 17 GM Packet PO SCH (08:53)
[2018-07-11] MEDS: Methylnaltrexone Inj 12 MG/0.6 ML Vial SQ SCH (08:54)
[2018-07-11] MEDS: Beneprotein Powder Packet G-TUBE SCH ×3 (08:54→17:44)
--- NOTE | 2018-07-11 08:59 | XR ---
EXAM DATE: 07/11/2018 8:24 AM EST AGE/SEX: 73 years / Male INDICATIONS: Abdominal distention. CLINICAL DATA: This is the patient's subsequent encounter. Patient reports that signs and symptoms h ave been present for 3 weeks and indicates a pain score of 0/10. MEDICAL/SURGICAL HISTORY: None. None. COMPARISON: [facility] [place], CT ABDOMEN & PELVIS W/O CONTRAST, 07/10/2018. . FINDINGS: There is a new linear opacity at the GE junction which may reflect the tip of a nasogastric catheter . Improved gaseous distention of the colon. Air is noted in several loops of nondistended small bowel . No gross pneumatosis or free air. Remainder of the exam is unchanged. CONCLUSION: 1. Questionable NGT at the GE junction, as above. 2. Moderately improved colonic distention. Electronically signed by: Joshua Amin MD 07/11/2018 8:58 AM EST
[2018-07-11] MEDS: Bisacodyl 10 MG Supp RECTAL SCH (09:00)
--- NOTE | 2018-07-11 10:02 | P.CONGS ---
[facility] Gen Surgery Consult Note Consult date: 07/11/18 Narrative: This is a 73-year-old male with history of COPD who has had a prolonged hospitalization most recently complicated by colonic ileus or Gio syndrome as well as acute kidney injury. I was contacted by Dr. Govea regarding concern for possible abdominal hypertension. The patient is undergone 2 decompressive colonoscopies most recently yesterday. Yesterday's colonoscopy did show a small superficial ischemic ulcer of the cecum according to Dr. Keith whom I discussed the case with. He has persistent abdominal distention and kidney function is worsening. CT of the abdomen and pelvis yesterday showed gas and fluid distention of the colon with fairly normal small bowel. In addition to decompressive colonoscopy he has been treated with Reglan and relistor. He has had leukocytosis which is 18,000 today. Bladder pressure this morning was reported to be 13. Review of Systems All other systems reviewed negative except as stated in [facility] - History History Provided By: Patient - Medical / Surgical Hx Neg / Unobtainable Medical Problems Denied: Unable to Obtain - Medical History Medical History: Medical History (Last Reviewed 07/13/18 @ 12:08 by Brooks Hugo MD) Anxiety Asthma COPD (chronic obstructive pulmonary disease) Chronic back pain Hypertension - Surgical History Surgical History: Surgical History (Last Reviewed 07/13/18 @ 12:08 by Brooks Hugo MD) No history of previous surgery - Family History Family History: Family History (Last Reviewed 07/13/18 @ 12:08 by Brooks Hugo MD) Other Diabetes mellitus - Tobacco History Second Hand Smoke Exposure: No Tobacco Use In Past 30 Days: No Smoking Status: Former smoker Tobacco Type: Cigarettes - Alcohol History How Often Do You Have a Drink Containing Alcohol: Never - Substance Use History Substance History: No History of Abuse - Travel History Recent Travel in the [place] Within the Last 8 Weeks: No Recent Travel Out of the Country Within the Last 8 Weeks: No - Immunization History Tetanus Immunization: Unsure Medications and Allergies Active Medications: Active Medications Acetaminophen (Tylenol) 650 mg PO Q4H PRN PRN Reason: Temp > 100.4 Last Admin: 07/09/18 11:20 Dose: 650 mg Hydrocodone Bitart/Acetaminophen (Glennie 10/325) 1 tab PO Q4H PRN PRN Reason: pain Last Admin: 07/10/18 09:17 Dose: 1 tab Albuterol (Albuterol Neb (Prn)) 2.5 mg NEB Q2HR NEB PRN PRN Reason: DYSPNEA Artificial Tears (Tears Naturale Opth Drops) 1 drop EACH EYE Q8H [facility] Last Admin: 07/11/18 08:53 Dose: 1 drop Bisacodyl (Dulcolax Supp) 10 mg RECTAL DAILY [facility] Last Admin: 07/10/18 09:06 Dose: Not Given Budesonide (Pulmocort Respule Neb) 0.5 mg NEB Q12HR NEB [facility] Last Admin: 07/11/18 07:52 Dose: 0.5 mg Chlorhexidine Gluconate (Peridex 0.12% Oral Kit) 15 ml OROPHARYNG BID@0800, 1999 [facility] Last Admin: 07/11/18 08:51 Dose: Not Given Dextrose (D50w Vial) 50 ml IV.PUSH UNSCH PRN PRN Reason: PER HYPOGLYCEMIA PROTOCOL Diltiazem HCl (Cardizem) 60 mg PO QID [facility] Last Admin: 07/11/18 08:54 Dose: 60 mg Duloxetine HCl (Cymbalta) 20 mg PO DAILY [facility] Last Admin: 06/28/18 09:09 Dose: Not Given Famotidine (Pepcid Pf Inj) 10 mg IV.PUSH Q12H [facility] Last Admin: 07/11/18 05:48 Dose: 10 mg Glucagon (Glucagon Inj) 1 mg OTHER PRN PRN PRN Reason: for Hypoglycemia Protocol Hydrocortisone Acetate (Hemorrhoidal Hc Supp) 25 mg RECTAL BID [facility] Last Admin: 07/11/18 00:36 Dose: 25 mg Metronidazole/Sodium Chloride (Flagyl 500 Mg Inj) 100 mls @ 100 mls/hr IV.SIG Q8H [facility] Last Admin: 07/11/18 05:48 Dose: 100 mls/hr Piperacillin/Tazobactam/Dextrose (Zosyn 4.5 Gm Premix) 4.5 gm in 100 mls @ 200 mls/hr IV.SIG Q6H [facility] Last Admin: 07/11/18 02:56 Dose: 200 mls/hr Furosemide 100 mg/ Sodium (Chloride) 100 mls @ 10 mls/hr IV.CONT .Q10H [facility] Last Admin: 07/11/18 02:54 Dose: 10 mls/hr Insulin Human Regular (Novolin R Correctional Sugar Inj) 0 units SQ Q4HR [facility]; Protocol Last Admin: 07/11/18 08:51 Dose: Not Given Lactulose (Lactulose Liq) 30 ml PO DAILY PRN PRN Reason: SEVERE CONSITIPATION Lactulose (Lactulose Liq) 30 ml PO QID [facility] Last Admin: 07/11/18 08:53 Dose: 30 ml Methylnaltrexone [place] (Relistor) 12 mg SQ DAILY [facility] Last Admin: 07/11/18 08:54 Dose: 12 mg Methylprednisolone Sodium Succinate (Solumedrol Inj) 40 mg IV.PUSH DAILY [facility] Last Admin: 07/11/18 08:52 Dose: 40 mg Metoclopramide HCl (Reglan Inj) 10 mg IV.PUSH Q8HR [facility]; Protocol Last Admin: 07/11/18 05:48 Dose: 10 mg Metoprolol Tartrate (Lopressor Inj) 2.5 mg IV.PUSH Q6H PRN PRN Reason: HEART RATE GREATER THAN 115 Last Admin: 07/01/18 01:26 Dose: 2.5 mg Miscellaneous Information ([facility] [place] [facility]) 1 each OTHER UNSCH PRN PRN Reason: SEE LABEL COMMENTS Stop: 07/11/18 18:49 Miscellaneous Medication () 1 each OROPHARYNG 0000,0400,1200,1600 [facility] Last Admin: 07/11/18 04:14 Dose: Not Given Ondansetron HCl (Zofran Inj) 4 mg IV.PUSH Q6H PRN PRN Reason: NAUSEA OR VOMITING Last Admin: 07/08/18 08:53 Dose: 4 mg Pantoprazole Sodium (Protonix) 20 mg PO DAILY [facility] Last Admin: 06/28/18 09:09 Dose: Not Given Polyethylene Glycol (Miralax) 17 gm PO DAILY [facility] Last Admin: 07/11/18 08:53 Dose: 17 gm Senna/Docusate Sodium ([place]-Colace) 1 tab PO BID [facility] Last Admin: 07/11/18 08:53 Dose: 1 tab Sennosides (Senokot) 17.2 mg PO Q12H PRN PRN Reason: Moderate Constipation Simethicone (Mylicon Chew) [facility] Last Admin: 07/11/18 00:36 Dose: 80 mg Sodium Chloride (Ns Flush) 2 ml IV.FLUSH BID [facility] Last Admin: 07/11/18 08:54 Dose: 2 ml Sodium Chloride (Ns Flush) 2 ml IV.FLUSH PRN PRN PRN Reason: FLUSH AFTER USING IV ACCESS Last Admin: 07/09/18 09:06 Dose: 2 ml Sodium Chloride (Ns Flush) 0 ml IV.FLUSH DAILY [facility] Last Admin: 07/11/18 08:54 Dose: Not Given Terbutaline Sulfate (Brethine Inj) 1 mg SQ UNSCH PRN PRN Reason: For Extravasation Whey (Beneprotein Powder) 1 packet G-TUBE TID [facility] Last Admin: 07/11/18 08:54 Dose: Not Given Allergies Allergy/AdvReac Type Severity Reaction Status Date / Time shellfish derived Allergy Severe Anaphylaxis Verified 10/10/17 13:48 Home Medications Medication Instructions Recorded Confirmed Type cholecalciferol (vitamin D3) 1,000 unit PO DAILY 06/19/18 06/19/18 History [Vitamin D3] hydrochlorothiazide 25 mg PO DAILY 06/19/18 06/19/18 History meloxicam 15 mg PO DAILY 06/19/18 06/19/18 History omeprazole 20 mg PO DAILY 06/19/18 06/19/18 History potassium chloride 10 meq PO DAILY 06/19/18 06/19/18 History Exam Vital signs: Vital Signs 07/10/18 10:00 07/10/18 10:01 07/10/18 10:15 Temperature Pulse Rate 105 H 105 H 101 H Respiratory Rate 12 12 11 L Blood Pressure 123/104 H 126/62 Pulse Oximetry 96 96 97 07/10/18 11:00 07/10/18 11:06 07/10/18 12:00 Temperature Pulse Rate 95 H 94 H 103 H Respiratory Rate 10 L 14 12 Blood Pressure 140/69 141/67 H Pulse Oximetry 94 L 93 L 07/10/18 13:00 07/10/18 14:00 07/10/18 14:36 Temperature Pulse Rate 104 H 105 H 105 H Respiratory Rate 17 13 13 Blood Pressure 137/61 133/70 Pulse Oximetry 94 L 94 L 95 07/10/18 15:00 07/10/18 15:35 07/10/18 16:00 Temperature Pulse Rate 105 H 97 H 101 H Respiratory Rate 15 19 14 Blood Pressure 134/64 131/70 Pulse Oximetry 94 L 99 07/10/18 16:55 07/10/18 18:50 07/10/18 20:00 Temperature 97.8 F Pulse Rate 104 H 103 H 103 H Respiratory Rate 18 17 14 Blood Pressure 148/62 H 145/58 H 135/65 Pulse Oximetry 96 97 96 07/10/18 20:16 07/10/18 22:00 07/10/18 23:55 Temperature Pulse Rate 105 H 103 H 105 H Respiratory Rate 21 18 Blood Pressure Pulse Oximetry 97 07/11/18 00:00 07/11/18 02:00 07/11/18 03:27 Temperature 98.2 F Pulse Rate 106 H 107 H 103 H Respiratory Rate 16 12 Blood Pressure 127/57 L Pulse Oximetry 96 07/11/18 04:00 07/11/18 06:00 07/11/18 07:53 Temperature 98.7 F Pulse Rate 109 H 102 H 109 H Respiratory Rate 15 23 Blood Pressure 139/62 Pulse Oximetry 100 96 Intake & Output 07/10/18 07/11/18 07/11/18 18:59 06:59 18:59 Intake Total 400 / 400 500 / 500 Output Total 3050 / 3050 Balance 400 / 400 -2550 / -2550 Weight 82 kg Intake: IV 200 / 200 500 / 500 Lasix Inj 100 MG In NS Inj 90 100 / 100 ML @ 10 mls/hr IV.CONT .Q10H [facility] Rx#:[id number] Zosyn 4.5 GM Premix 4.5 gm In 100 / 100 200 / 200 100 ml @ 200 mls/hr IV.SIG Q6H [facility] Rx#:[id number] Flagyl 500 MG Inj 100 ML @ 100 100 / 100 200 / 200 mls/hr IV.SIG Q8H [facility] Rx#: [id number] Oral 0 / 0 Anesthesia Amount 200 / 200 Output: Stool 0 / 0 Urine Amount (Catheter) 2800 / 2800 Indwelling Urethral Catheter 2800 / 2800 Gastric Drainage 250 / 250 Right Nare Nasogastric Tube 250 / 250 Other: Date of Last Bowel Movement 07/09/18 Narrative: GENERAL: Awake and alert. No acute distress. Cooperative. HEAD: Normocephalic. Atraumatic. EYES: Pupils equal round and reactive to light bilaterally. No scleral icterus. ENT: Moist oral mucosa. NG tube in place to suction. NECK: Trachea midline. CHEST: Lungs clear to auscultation bilaterally with no wheezing or rhonchi. No respiratory distress. CARDIOVASCULAR: Sinus tachycardia. ABDOMEN: Soft, distended, nontender. SKIN: Warm, dry, nonjaundiced. Results - Labs 07/13/18 10:32 07/13/18 10:32 Laboratory Results - last 24 hr 07/10/18 07/10/18 07/10/18 08:47 16:20 19:07 Sodium 138 Potassium 4.0 Chloride 104 Carbon Dioxide 23.4 Anion Gap 11 BUN 55 H Creatinine 2.25 H Estimated GFR 35 L POC Glucose 221 H 203 H Random Glucose 149 H Lactic Acid Calcium 7.8 L Phosphorus 4.1 Magnesium 2.1 Total Bilirubin 0.6 AST 46 H ALT 73 Alkaline Phosphatase 60 Total Protein 5.7 L Albumin 2.9 L Procalcitonin Urine Eosinophils Ur Random Creatinine Ur Random Sodium 07/10/18 07/10/18 07/11/18 20:50 20:50 00:04 Sodium Potassium Chloride Carbon Dioxide Anion Gap BUN Creatinine Estimated GFR POC Glucose 161 H Random Glucose Lactic Acid Calcium Phosphorus Magnesium Total Bilirubin AST ALT Alkaline Phosphatase Total Protein Albumin Procalcitonin Urine Eosinophils None seen Ur Random Creatinine 48 Ur Random Sodium 40 07/11/18 07/11/18 07/11/18 02:48 02:48 02:48 Sodium 140 Potassium 3.8 Chloride 103 Carbon Dioxide 25.9 Anion Gap 11 BUN 62 H Creatinine 3.00 H Estimated GFR 25 L POC Glucose Random Glucose 173 H Lactic Acid 1.1 Calcium 7.5 L Phosphorus 5.7 H D Magnesium 2.1 Total Bilirubin 0.7 AST 42 H ALT 65 Alkaline Phosphatase 58 Total Protein 5.5 L Albumin 2.6 L Procalcitonin 0.67 H Urine Eosinophils Ur Random Creatinine Ur Random Sodium 07/11/18 07/11/18 04:30 08:49 Sodium Potassium Chloride Carbon Dioxide Anion Gap BUN Creatinine Estimated GFR POC Glucose 184 H 158 H Random Glucose Lactic Acid Calcium Phosphorus Magnesium Total Bilirubin AST ALT Alkaline Phosphatase Total Protein Albumin Procalcitonin Urine Eosinophils Ur Random Creatinine Ur Random Sodium - Imaging Imaging: ITS Impressions Abdomen Ultrasound 06/21/18 00:00 CONCLUSION: 1. No ascites is identified within the abdomen. Abdomen/Bladder Ultrasound 06/28/18 00:00 CONCLUSION: 1. Echogenic kidneys characteristic of medical renal disease. No hydronephrosis. Bladder decompressed by [place] Chest CTA 07/02/18 00:00 CONCLUSION: 1. No pulmonary embolus. 2. Diffuse but basilar predominant bilateral airspace disease. 3. Endotracheal and endobronchial secretions are demonstrated. 4. Moderate emphysema. 5. Left ventricular hypertrophy. Venous Doppler Study 07/02/18 00:00 CONCLUSION: 1. Limited, no evidence for thrombosis. Abdomen/Pelvis CT 07/10/18 08:31 CONCLUSION: 1. There is gas and fluid distending the colon. The patient has a rectal tube in place however the rectal tube is kinked back on itself and occluded. The overall size of the colon has mildly increased when compared to previous exam. The small bowel is normal in caliber. 2. Interval development of a small left basilar effusion and atelectasis. Chest X-Ray 07/10/18 08:42 CONCLUSION: Mild patchy bilateral lung base opacity likely representing atelectasis unchanged. Small left pleural effusion now seen. Abdomen X-Ray 07/11/18 00:00 CONCLUSION: 1. Questionable NGT at the GE junction, as above. 2. Moderately improved colonic distention. 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 He is otherwise stable aside from worsening kidney function. Based on the information I have at this time I do not think that he has abdominal compartment syndrome and I do not recommend decompressive laparotomy. Regarding colonic ileus, I recommend conservative nonoperative treatment at this time. Based on his exam and recent imaging he does not appear to have compromised blood flow to the colon. I will continue to follow. Case discussed with Dr. Govea as well as Dr. Keith.
--- NOTE | 2018-07-11 13:52 | P.PNNP ---
Subjective Interval history: Patient had chronic decompression, on Lasix and diuresing well Physical Exam Vital signs: Vital Signs 07/10/18 14:00 07/10/18 14:36 07/10/18 15:00 Temperature Pulse Rate 105 H 105 H 105 H Respiratory Rate 13 13 15 Blood Pressure 133/70 134/64 Pulse Oximetry 94 L 95 94 L 07/10/18 15:35 07/10/18 16:00 07/10/18 16:55 Temperature Pulse Rate 97 H 101 H 104 H Respiratory Rate 19 14 18 Blood Pressure 131/70 148/62 H Pulse Oximetry 99 96 07/10/18 18:50 07/10/18 20:00 07/10/18 20:16 Temperature 97.8 F Pulse Rate 103 H 103 H 105 H Respiratory Rate 17 14 21 Blood Pressure 145/58 H 135/65 Pulse Oximetry 97 96 97 07/10/18 22:00 07/10/18 23:55 07/11/18 00:00 Temperature 98.2 F Pulse Rate 103 H 105 H 106 H Respiratory Rate 18 16 Blood Pressure 127/57 L Pulse Oximetry 96 07/11/18 02:00 07/11/18 03:27 07/11/18 04:00 Temperature 98.7 F Pulse Rate 107 H 103 H 109 H Respiratory Rate 12 15 Blood Pressure 139/62 Pulse Oximetry 100 07/11/18 06:00 07/11/18 07:53 Temperature Pulse Rate 102 H 109 H Respiratory Rate 23 Blood Pressure Pulse Oximetry 96 Intake & Output 07/10/18 07/11/18 07/11/18 18:59 06:59 18:59 Intake Total 400 / 400 500 / 500 Output Total 3050 / 3050 Balance 400 / 400 -2550 / -2550 Weight 82 kg Intake: IV 200 / 200 500 / 500 Lasix Inj 100 MG In NS Inj 90 100 / 100 ML @ 10 mls/hr IV.CONT .Q10H [facility] Rx#:[id number] Zosyn 4.5 GM Premix 4.5 gm In 100 / 100 200 / 200 100 ml @ 200 mls/hr IV.SIG Q6H [facility] Rx#:[id number] Flagyl 500 MG Inj 100 ML @ 100 100 / 100 200 / 200 mls/hr IV.SIG Q8H [facility] Rx#: [id number] Oral 0 / 0 Anesthesia Amount 200 / 200 Output: Stool 0 / 0 Urine Amount (Catheter) 2800 / 2800 Indwelling Urethral Catheter 2800 / 2800 Gastric Drainage 250 / 250 Right Nare Nasogastric Tube 250 / 250 Other: Date of Last Bowel Movement 07/09/18 07/11/18 Narrative: GENERAL: Patient is critically ill on oxygen SKIN: Warm and dry. HEAD: Normocephalic. EYES: No scleral icterus. No injection or drainage. NECK: Supple, trachea midline. No JVD or lymphadenopathy. CARDIOVASCULAR: Tachycardia RESPIRATORY: Breath sounds diminished at bases wheezing present. GASTROINTESTINAL: Abdomen decrease distention with decreased intra-abdominal pressure EXTREMITIES: 2+ + anasarca NEUROLOGICAL: Opens eyes - Urinary Catheter Management Indwelling Urethral Catheter Cath placed during this visit: yes, but has since been removed by the nurse Reason for continuing: Other continuation reason Insertion date: 07/10/18 Insertion time: 20:00 Removal date: 07/08/18 Removal time: 11:50 Assessment and Plan - Assessment (1) Acute renal failure Code(s): N17.9 - Acute kidney failure, unspecified Status: Acute (2) Anasarca Code(s): R60.1 - Generalized edema Status: Acute (3) Abdominal distention Code(s): R14.0 - Abdominal distension (gaseous) Status: Acute (4) Ileus Code(s): K56.7 - Ileus, unspecified Status: Acute - Plan Patient is critically ill and urine output has declined creatinine is rising 3 Moderately distended colon I will discontinue Lasix drip as urine output improved to 2.8 L, patient with ATN May need dialysis support Check urine sodium creatinine Continue to monitor
[2018-07-11 13:56] LABS: Baso % (Auto) 0.2 % (0.0-2.0); Hematocrit 22.2 % (39.0-51.0); Hemoglobin 7.4 gm/dL (13.0-17.0); Lymph # (Auto) 0.1 th/mm3 (1.0-4.8); Lymph % (Auto) 0.6 % (9.0-44.0); Mean Corpuscular HGB Conc 33.5 % (32.0-36.0); Mean Corpuscular Hemoglobin 30.5 pg (27.0-34.0); Mean Corpuscular Volume 91.1 fL (80.0-100.0); Mono # (Auto) 0.2 th/mm3 (0.0-0.9); Neut # (Auto) 17.9 th/mm3 (1.8-7.7); Neut % (Auto) 98.2 % (16.0-70.0); Platelet Count 56 th/mm3 (150-450); Red Blood Count 2.43 mil/mm3 (4.50-5.90); Red Cell Distribution Width 13.8 % (11.6-17.2); White Blood Count 18.2 th/mm3 (4.0-11.0)
--- NOTE | 2018-07-11 14:11 | P.PNGI ---
Subjective Interval history: Pt resting in bed, states some improvement in abdominal pain/distention. NG to LIWS. Has had multiple watery stools this morning. According to RN waiting for Neostigmine from pharmacy. Received Relistor <Khushboo Restrepo - Last Filed: 07/11/18 14:08> Physical Exam Vital signs: Vital Signs 07/10/18 14:36 07/10/18 15:00 07/10/18 15:35 Temperature Pulse Rate 105 H 105 H 97 H Respiratory Rate 13 15 19 Blood Pressure 133/70 134/64 Pulse Oximetry 95 94 L 07/10/18 16:00 07/10/18 16:55 07/10/18 18:50 Temperature Pulse Rate 101 H 104 H 103 H Respiratory Rate 14 18 17 Blood Pressure 131/70 148/62 H 145/58 H Pulse Oximetry 99 96 97 07/10/18 20:00 07/10/18 20:16 07/10/18 22:00 Temperature 97.8 F Pulse Rate 103 H 105 H 103 H Respiratory Rate 14 21 Blood Pressure 135/65 Pulse Oximetry 96 97 07/10/18 23:55 07/11/18 00:00 07/11/18 02:00 Temperature 98.2 F Pulse Rate 105 H 106 H 107 H Respiratory Rate 18 16 Blood Pressure 127/57 L Pulse Oximetry 96 07/11/18 03:27 07/11/18 04:00 07/11/18 06:00 Temperature 98.7 F Pulse Rate 103 H 109 H 102 H Respiratory Rate 12 15 Blood Pressure 139/62 Pulse Oximetry 100 07/11/18 07:53 Temperature Pulse Rate 109 H Respiratory Rate 23 Blood Pressure Pulse Oximetry 96 Intake & Output 07/10/18 07/11/18 07/11/18 18:59 06:59 18:59 Intake Total 400 / 400 500 / 500 Output Total 3050 / 3050 Balance 400 / 400 -2550 / -2550 Weight 82 kg Intake: IV 200 / 200 500 / 500 Lasix Inj 100 MG In NS Inj 90 100 / 100 ML @ 10 mls/hr IV.CONT .Q10H [facility] Rx#:[id number] Zosyn 4.5 GM Premix 4.5 gm In 100 / 100 200 / 200 100 ml @ 200 mls/hr IV.SIG Q6H [facility] Rx#:[id number] Flagyl 500 MG Inj 100 ML @ 100 100 / 100 200 / 200 mls/hr IV.SIG Q8H [facility] Rx#: [id number] Oral 0 / 0 Anesthesia Amount 200 / 200 Output: Stool 0 / 0 Urine Amount (Catheter) 2800 / 2800 Indwelling Urethral Catheter 2800 / 2800 Gastric Drainage 250 / 250 Right Nare Nasogastric Tube 250 / 250 Other: Date of Last Bowel Movement 07/09/18 07/11/18 - Constitutional no acute distress - Routine HEENT Exam Head: Present: normocephalic, atraumatic - Routine Respiratory Exam Absent: accessory muscle use - Routine Abdominal Exam Present: normoactive bowel sounds, distended, firm. Absent: tenderness Comments: positive NG tube to LIWS - Routine Skin Exam Present: dry, warm - Routine Neurological Exam Present: alert, oriented X3 - Urinary Catheter Management Indwelling Urethral Catheter Cath placed during this visit: yes, but has since been removed by the nurse Reason for continuing: Other continuation reason Insertion date: 07/10/18 Insertion time: 20:00 Removal date: 07/08/18 Removal time: 11:50 <Khushboo Restrepo - Last Filed: 07/11/18 14:08> Vital signs: Vital Signs 07/10/18 18:50 07/10/18 20:00 07/10/18 20:16 Temperature 97.8 F Pulse Rate 103 H 103 H 105 H Respiratory Rate 17 14 21 Blood Pressure 145/58 H 135/65 Pulse Oximetry 97 96 97 07/10/18 22:00 07/10/18 23:55 07/11/18 00:00 Temperature 98.2 F Pulse Rate 103 H 105 H 106 H Respiratory Rate 18 16 Blood Pressure 127/57 L Pulse Oximetry 96 07/11/18 02:00 07/11/18 03:27 07/11/18 04:00 Temperature 98.7 F Pulse Rate 107 H 103 H 109 H Respiratory Rate 12 15 Blood Pressure 139/62 Pulse Oximetry 100 07/11/18 06:00 07/11/18 07:53 Temperature Pulse Rate 102 H 109 H Respiratory Rate 23 Blood Pressure Pulse Oximetry 96 Intake & Output 07/10/18 07/11/18 07/11/18 18:59 06:59 18:59 Intake Total 400 / 400 700 / 700 100 / 100 Output Total 3050 / 3050 Balance 400 / 400 -2350 / -2350 100 / 100 Weight 82 kg Intake: IV 200 / 200 700 / 700 100 / 100 Lasix Inj 100 MG In NS Inj 90 100 / 100 ML @ 10 mls/hr IV.CONT .Q10H [facility] Rx#:[id number] Zosyn 4.5 GM Premix 4.5 gm In 100 / 100 300 / 300 100 / 100 100 ml @ 200 mls/hr IV.SIG Q6H [facility] Rx#:[id number] Flagyl 500 MG Inj 100 ML @ 100 100 / 100 300 / 300 mls/hr IV.SIG Q8H [facility] Rx#: [id number] Oral 0 / 0 Anesthesia Amount 200 / 200 Output: Stool 0 / 0 Urine Amount (Catheter) 2800 / 2800 Indwelling Urethral Catheter 2800 / 2800 Gastric Drainage 250 / 250 Right Nare Nasogastric Tube 250 / 250 Other: Date of Last Bowel Movement 07/09/18 07/11/18 - Urinary Catheter Management Indwelling Urethral Catheter Cath placed during this visit: no <Ann Keith - Last Filed: 07/11/18 17:23> Results - Labs CBC & Chem 7: 07/11/18 13:50 07/11/18 02:48 Laboratory Results - last 24 hr 07/10/18 07/10/18 07/10/18 16:20 19:07 20:50 WBC RBC Hgb Hct MCV MCH MCHC RDW Plt Count MPV Prelim Diff (Auto) Neut % (Auto) Lymph % (Auto) [place] % (Auto) Eos % (Auto) Baso % (Auto) Neut # (Auto) Lymph # (Auto) [place] # (Auto) Eos # (Auto) Baso # (Auto) Differential Comment Sodium Potassium Chloride Carbon Dioxide Anion Gap BUN Creatinine Estimated GFR POC Glucose 221 H 203 H Random Glucose Lactic Acid Calcium Phosphorus Magnesium Total Bilirubin AST ALT Alkaline Phosphatase Total Protein Albumin Procalcitonin Urine Eosinophils Ur Random Creatinine 48 Ur Random Sodium 40 07/10/18 07/11/18 07/11/18 20:50 00:04 02:48 WBC RBC Hgb Hct MCV MCH MCHC RDW Plt Count MPV Prelim Diff (Auto) Neut % (Auto) Lymph % (Auto) [place] % (Auto) Eos % (Auto) Baso % (Auto) Neut # (Auto) Lymph # (Auto) [place] # (Auto) Eos # (Auto) Baso # (Auto) Differential Comment Sodium Potassium Chloride Carbon Dioxide Anion Gap BUN Creatinine Estimated GFR POC Glucose 161 H Random Glucose Lactic Acid 1.1 Calcium Phosphorus Magnesium Total Bilirubin AST ALT Alkaline Phosphatase Total Protein Albumin Procalcitonin Urine Eosinophils None seen Ur Random Creatinine Ur Random Sodium 07/11/18 07/11/18 07/11/18 02:48 02:48 04:30 WBC RBC Hgb Hct MCV MCH MCHC RDW Plt Count MPV Prelim Diff (Auto) Neut % (Auto) Lymph % (Auto) [place] % (Auto) Eos % (Auto) Baso % (Auto) Neut # (Auto) Lymph # (Auto) [place] # (Auto) Eos # (Auto) Baso # (Auto) Differential Comment Sodium 140 Potassium 3.8 Chloride 103 Carbon Dioxide 25.9 Anion Gap 11 BUN 62 H Creatinine 3.00 H Estimated GFR 25 L POC Glucose 184 H Random Glucose 173 H Lactic Acid Calcium 7.5 L Phosphorus 5.7 H D Magnesium 2.1 Total Bilirubin 0.7 AST 42 H ALT 65 Alkaline Phosphatase 58 Total Protein 5.5 L Albumin 2.6 L Procalcitonin 0.67 H Urine Eosinophils Ur Random Creatinine Ur Random Sodium 07/11/18 07/11/18 07/11/18 08:49 12:33 13:50 WBC 18.2 H RBC 2.43 L Hgb 7.4 L Hct 22.2 L MCV 91.1 MCH 30.5 MCHC 33.5 RDW 13.8 Plt Count 56 L MPV 10.0 Prelim Diff (Auto) Slide review pending Neut % (Auto) 98.2 H Lymph % (Auto) 0.6 L [place] % (Auto) 1.0 Eos % (Auto) 0.0 Baso % (Auto) 0.2 Neut # (Auto) 17.9 H Lymph # (Auto) 0.1 L [place] # (Auto) 0.2 Eos # (Auto) 0.0 Baso # (Auto) 0.0 Differential Comment . Sodium Potassium Chloride Carbon Dioxide Anion Gap BUN Creatinine Estimated GFR POC Glucose 158 H 187 H Random Glucose Lactic Acid Calcium Phosphorus Magnesium Total Bilirubin AST ALT Alkaline Phosphatase Total Protein Albumin Procalcitonin Urine Eosinophils Ur Random Creatinine Ur Random Sodium Microbiology 07/09/18 00:30 Stool Cryptosporidium Antigen - Final Negative - No Cryptosporicium antigen detected In selected cases of patients with a history of immunosuppression or foreign travel, a full ova and parasites examination may be desired. Contact the microbiology lab if full workup is indicated and subit another specimen for testing. 07/09/18 00:30 Stool Giardia Antigen (GERONIMO) - Final Negative - No Giardia Antigen detected In selected cases of patients with a history of immunosuppression or foreign travel, a full ova and parasites examination may be desired. Contact the microbiology lab if full workup is indicated and subit another specimen for testing. - Imaging Impressions Abdomen X-Ray 07/11/18 00:00 CONCLUSION: 1. Questionable NGT at the GE junction, as above. 2. Moderately improved colonic distention. <Khushboo Restrepo - Last Filed: 07/11/18 14:08> - Labs CBC & Chem 7: 07/11/18 13:50 07/11/18 02:48 Laboratory Results - last 24 hr 07/10/18 07/10/18 07/10/18 19:07 20:50 20:50 WBC RBC Hgb Hct MCV MCH MCHC RDW Plt Count MPV Prelim Diff (Auto) Neut % (Auto) Lymph % (Auto) [place] % (Auto) Eos % (Auto) Baso % (Auto) Neut # (Auto) Lymph # (Auto) [place] # (Auto) Eos # (Auto) Baso # (Auto) WBC Differential Diff Scan Differential Comment Platelet Estimate Platelet Morphology Sodium Potassium Chloride Carbon Dioxide Anion Gap BUN Creatinine Estimated GFR POC Glucose 203 H Random Glucose Lactic Acid Calcium Phosphorus Magnesium Total Bilirubin AST ALT Alkaline Phosphatase Total Protein Albumin Procalcitonin Urine Eosinophils None seen Ur Random Creatinine 48 Ur Random Sodium 40 07/11/18 07/11/18 07/11/18 00:04 02:48 02:48 WBC RBC Hgb Hct MCV MCH MCHC RDW Plt Count MPV Prelim Diff (Auto) Neut % (Auto) Lymph % (Auto) [place] % (Auto) Eos % (Auto) Baso % (Auto) Neut # (Auto) Lymph # (Auto) [place] # (Auto) Eos # (Auto) Baso # (Auto) WBC Differential Diff Scan Differential Comment Platelet Estimate Platelet Morphology Sodium Potassium Chloride Carbon Dioxide Anion Gap BUN Creatinine Estimated GFR POC Glucose 161 H Random Glucose Lactic Acid 1.1 Calcium Phosphorus Magnesium Total Bilirubin AST ALT Alkaline Phosphatase Total Protein Albumin Procalcitonin 0.67 H Urine Eosinophils Ur Random Creatinine Ur Random Sodium 11/05/2007/11/18 07/11/18 02:48 04:30 08:49 WBC RBC Hgb Hct MCV MCH MCHC RDW Plt Count MPV Prelim Diff (Auto) Neut % (Auto) Lymph % (Auto) [place] % (Auto) Eos % (Auto) Baso % (Auto) Neut # (Auto) Lymph # (Auto) [place] # (Auto) Eos # (Auto) Baso # (Auto) WBC Differential Diff Scan Differential Comment Platelet Estimate Platelet Morphology Sodium 140 Potassium 3.8 Chloride 103 Carbon Dioxide 25.9 Anion Gap 11 BUN 62 H Creatinine 3.00 H Estimated GFR 25 L POC Glucose 184 H 158 H Random Glucose 173 H Lactic Acid Calcium 7.5 L Phosphorus 5.7 H D Magnesium 2.1 Total Bilirubin 0.7 AST 42 H ALT 65 Alkaline Phosphatase 58 Total Protein 5.5 L Albumin 2.6 L Procalcitonin Urine Eosinophils Ur Random Creatinine Ur Random Sodium 07/11/18 07/11/18 12:33 13:50 WBC 18.2 H RBC 2.43 L Hgb 7.4 L Hct 22.2 L MCV 91.1 MCH 30.5 MCHC 33.5 RDW 13.8 Plt Count 56 L MPV 10.0 Prelim Diff (Auto) Slide review pending Neut % (Auto) 98.2 H Lymph % (Auto) 0.6 L [place] % (Auto) 1.0 Eos % (Auto) 0.0 Baso % (Auto) 0.2 Neut # (Auto) 17.9 H Lymph # (Auto) 0.1 L [place] # (Auto) 0.2 Eos # (Auto) 0.0 Baso # (Auto) 0.0 WBC Differential . Diff Scan Auto diff confirmed Differential Comment . Platelet Estimate Low L Platelet Morphology Normal Sodium Potassium Chloride Carbon Dioxide Anion Gap BUN Creatinine Estimated GFR POC Glucose 187 H Random Glucose Lactic Acid Calcium Phosphorus Magnesium Total Bilirubin AST ALT Alkaline Phosphatase Total Protein Albumin Procalcitonin Urine Eosinophils Ur Random Creatinine Ur Random Sodium - Imaging Impressions Abdomen X-Ray 07/11/18 00:00 CONCLUSION: 1. Questionable NGT at the GE junction, as above. 2. Moderately improved colonic distention. <Ann Keith - Last Filed: 07/11/18 17:23> Assessment and Plan - Plan Assessment Abdominal distention/ileus Pt with long standing history of constipation and is on daily narcotics at home, according to his significant other takes Aloe Vera for constipation but this has not been working Previously seen by our service earlier in this admission status post diagnostic colonoscopy on (07/02) The sigmoid colon was clear then there was significant amount of stool in the descending colon, transverse colon, and part of the sigmoid colon consistent with stool impaction. Attempted to disimpact the patient with fluid as much as possible. Rectum exam was normal. S/P decompressive colonoscopy (07/06) stool in cecum, large amount of water flush, stool section. Internal Hemorrhoids. Neostigmine given on 07/04 and 07/06 Relistor given on 07/02 and 07/03 Pt has also been on on Lactulose QID and Miralax daily CT abd/pelvis WO IV contrast (07/10) There is gas and fluid distending the colon. The patient has a rectal tube in place however the rectal tube is kinked back on itself and occluded. The overall size of the colon has mildly increased when compared to previous exam. The small bowel is normal in caliber. Decompressive colonoscopy (07/10) Ischemic ulcer cecum. Some semisolid stool suctioned. Marked decompression Rectal ulcer from rectal tube. Internal and external hemorrhoids (07/11) Pts abdomen some less distention and pain today. Still with NG to LIWS. Rectal tube discontinued yesterday. According to RN multiple loose stools today. Neostigmine has not been administered yet, waiting to receive it from pharmacy. Plan: Continue NG to LIWS Hydrocortisone supp GS consult Reglan Relistor Neostigmine today Further recommendations pending course Pt has been seen and examined by myself and Dr. Keith and this note is written on her behalf <Khushboo Restrepo - Last Filed: 07/11/18 14:08> - Attending Attestation seen, examined agree with above better than yestrday neostigmine today rotation bed if improvement in am can clamp ngt and start clear liquid <Ann Keith - Last Filed: 07/11/18 17:23>
[2018-07-11 14:54] LABS: Platelet Morphology Normal (Normal)
--- NOTE | 2018-07-11 17:55 | P.PNID ---
Subjective Remarks: improving intraabd pressures Improving leukocytosis - down to 18 K On 3 L NC O2 c/o abd pain Antibiotics: zosyn Allergies/Adverse Reactions: Allergies shellfish derived Allergy (Severe, Verified 10/10/17 13:48) Anaphylaxis Objective Vital Signs 07/10/18 18:50 07/10/18 20:00 07/10/18 20:16 Temperature 97.8 F Pulse Rate 103 H 103 H 105 H Respiratory Rate 17 14 21 Blood Pressure 145/58 H 135/65 Pulse Oximetry 97 96 97 07/10/18 22:00 07/10/18 23:55 07/11/18 00:00 Temperature 98.2 F Pulse Rate 103 H 105 H 106 H Respiratory Rate 18 16 Blood Pressure 127/57 L Pulse Oximetry 96 07/11/18 02:00 07/11/18 03:27 07/11/18 04:00 Temperature 98.7 F Pulse Rate 107 H 103 H 109 H Respiratory Rate 12 15 Blood Pressure 139/62 Pulse Oximetry 100 07/11/18 06:00 07/11/18 07:53 Temperature Pulse Rate 102 H 109 H Respiratory Rate 23 Blood Pressure Pulse Oximetry 96 Intake & Output 07/10/18 07/11/18 07/11/18 18:59 06:59 18:59 Intake Total 400 / 400 700 / 700 100 / 100 Output Total 3050 / 3050 Balance 400 / 400 -2350 / -2350 100 / 100 Weight 82 kg Intake: IV 200 / 200 700 / 700 100 / 100 Lasix Inj 100 MG In NS Inj 90 100 / 100 ML @ 10 mls/hr IV.CONT .Q10H [facility] Rx#:[id number] Zosyn 4.5 GM Premix 4.5 gm In 100 / 100 300 / 300 100 / 100 100 ml @ 200 mls/hr IV.SIG Q6H [facility] Rx#:[id number] Flagyl 500 MG Inj 100 ML @ 100 100 / 100 300 / 300 mls/hr IV.SIG Q8H [facility] Rx#: [id number] Oral 0 / 0 Anesthesia Amount 200 / 200 Output: Stool 0 / 0 Urine Amount (Catheter) 2800 / 2800 Indwelling Urethral Catheter 2800 / 2800 Gastric Drainage 250 / 250 Right Nare Nasogastric Tube 250 / 250 Other: Date of Last Bowel Movement 07/09/18 07/11/18 07/11/18 13:50 Blood - Peripheral Aerobic Blood Culture - Pending 07/11/18 13:50 Blood - Peripheral Anaerobic Blood Culture - Pending 07/11/18 02:48 Blood - Peripheral Aerobic Blood Culture - Pending 07/11/18 02:48 Blood - Peripheral Anaerobic Blood Culture - Pending 07/09/18 00:30 Stool Cryptosporidium Antigen - Final Negative - No Cryptosporicium antigen detected In selected cases of patients with a history of immunosuppression or foreign travel, a full ova and parasites examination may be desired. Contact the microbiology lab if full workup is indicated and subit another specimen for testing. 07/09/18 00:30 Stool Giardia Antigen (GERONIMO) - Final Negative - No Giardia Antigen detected In selected cases of patients with a history of immunosuppression or foreign travel, a full ova and parasites examination may be desired. Contact the microbiology lab if full workup is indicated and subit another specimen for testing. Lab - Hematology Results 07/09/18 07/10/18 07/11/18 09:44 08:47 13:50 WBC 25.9 H 23.4 H 18.2 H RBC 3.05 L 2.54 L 2.43 L Hgb 8.8 L 7.7 L 7.4 L Hct 28.2 L 23.4 L 22.2 L MCV 92.4 92.4 91.1 MCH 28.9 30.4 30.5 MCHC 31.3 L 32.9 33.5 RDW 13.6 13.8 13.8 Plt Count 71 L 56 L MPV 10.0 10.7 10.0 Prelim Diff (Auto) Slide review pending Slide review pending Slide review pending Neut % (Auto) 95.0 H 95.9 H 98.2 H Lymph % (Auto) 2.2 L 1.5 L 0.6 L [place] % (Auto) 2.3 2.5 1.0 Eos % (Auto) 0.0 0.0 0.0 Baso % (Auto) 0.5 0.1 0.2 Neut # (Auto) 24.6 H 22.4 H 17.9 H Lymph # (Auto) 0.6 L 0.4 L 0.1 L [place] # (Auto) 0.6 0.6 0.2 Eos # (Auto) 0.0 0.0 0.0 Baso # (Auto) 0.1 0.0 0.0 WBC Differential Manual diff final . . Diff Scan Auto diff confirmed Auto diff confirmed Seg Neuts % (Manual) 86 H Band Neuts % (Manual) 5 Lymphocytes % (Manual) 4 L Monocytes % (Manual) 4 Myelocytes % (Man) 1 H Abs Neuts (Manual) 23.8 H Differential Comment . . Platelet Estimate Low L Low L Low L Platelet Morphology Normal Enlarged H Normal Hematology Comments Lab - Chemistry Results 07/09/18 07/10/18 07/10/18 19:57 00:21 04:41 Sodium Potassium Chloride Carbon Dioxide Anion Gap BUN Creatinine Estimated GFR POC Glucose 302 H 148 H 111 H Random Glucose Lactic Acid Calcium Phosphorus Magnesium Total Bilirubin AST ALT Alkaline Phosphatase Total Protein Albumin Procalcitonin 07/10/18 07/10/18 07/10/18 08:47 09:26 16:20 Sodium 138 Potassium 4.0 Chloride 104 Carbon Dioxide 23.4 Anion Gap 11 BUN 55 H Creatinine 2.25 H Estimated GFR 35 L POC Glucose 144 H 221 H Random Glucose 149 H Lactic Acid Calcium 7.8 L Phosphorus 4.1 Magnesium 2.1 Total Bilirubin 0.6 AST 46 H ALT 73 Alkaline Phosphatase 60 Total Protein 5.7 L Albumin 2.9 L Procalcitonin 07/10/18 07/11/18 07/11/18 19:07 00:04 02:48 Sodium Potassium Chloride Carbon Dioxide Anion Gap BUN Creatinine Estimated GFR POC Glucose 203 H 161 H Random Glucose Lactic Acid 1.1 Calcium Phosphorus Magnesium Total Bilirubin AST ALT Alkaline Phosphatase Total Protein Albumin Procalcitonin 07/11/18 07/11/18 07/11/18 02:48 02:48 04:30 Sodium 140 Potassium 3.8 Chloride 103 Carbon Dioxide 25.9 Anion Gap 11 BUN 62 H Creatinine 3.00 H Estimated GFR 25 L POC Glucose 184 H Random Glucose 173 H Lactic Acid Calcium 7.5 L Phosphorus 5.7 H D Magnesium 2.1 Total Bilirubin 0.7 AST 42 H ALT 65 Alkaline Phosphatase 58 Total Protein 5.5 L Albumin 2.6 L Procalcitonin 0.67 H 07/11/18 07/11/18 08:49 12:33 Sodium Potassium Chloride Carbon Dioxide Anion Gap BUN Creatinine Estimated GFR POC Glucose 158 H 187 H Random Glucose Lactic Acid Calcium Phosphorus Magnesium Total Bilirubin AST ALT Alkaline Phosphatase Total Protein Albumin Procalcitonin Imaging: ITS Impressions Abdomen Ultrasound 06/21/18 00:00 CONCLUSION: 1. No ascites is identified within the abdomen. Abdomen/Bladder Ultrasound 06/28/18 00:00 CONCLUSION: 1. Echogenic kidneys characteristic of medical renal disease. No hydronephrosis. Bladder decompressed by Mora Chest CTA 07/02/18 00:00 CONCLUSION: 1. No pulmonary embolus. 2. Diffuse but basilar predominant bilateral airspace disease. 3. Endotracheal and endobronchial secretions are demonstrated. 4. Moderate emphysema. 5. Left ventricular hypertrophy. Venous Doppler Study 07/02/18 00:00 CONCLUSION: 1. Limited, no evidence for thrombosis. Abdomen/Pelvis CT 07/10/18 08:31 CONCLUSION: 1. There is gas and fluid distending the colon. The patient has a rectal tube in place however the rectal tube is kinked back on itself and occluded. The overall size of the colon has mildly increased when compared to previous exam. The small bowel is normal in caliber. 2. Interval development of a small left basilar effusion and atelectasis. Chest X-Ray 07/10/18 08:42 CONCLUSION: Mild patchy bilateral lung base opacity likely representing atelectasis unchanged. Small left pleural effusion now seen. Abdomen X-Ray 07/11/18 00:00 CONCLUSION: 1. Questionable NGT at the GE junction, as above. 2. Moderately improved colonic distention. Physical Exam: GENERAL: NAD SKIN: Warm and dry. no rash HEAD: Atraumatic. Normocephalic. EYES: Pupils equal and round. No scleral icterus. No injection or drainage. ENT: No nasal bleeding or discharge. Mucous membranes pink and moist. NECK: Trachea midline. No JVD. CARDIOVASCULAR: Regular rate and rhythm. RESPIRATORY: No accessory muscle use. Clear to auscultation. Breath sounds equal bilaterally. GASTROINTESTINAL: Abdomen soft, diffusely tender, markedly distended and tympanic. Hepatic and splenic margins not palpable. mora in place MUSCULOSKELETAL: Extremities without clubbing, cyanosis, or edema. No obvious deformities. NEUROLOGICAL: Awake and alert. No obvious cranial nerve deficits. Motor grossly within normal limits. Five out of 5 muscle strength in the arms and legs. Normal speech. PSYCHIATRIC: Appropriate mood and affect; insight and judgment normal. Assessment and Plan - Plan Gio's syndrome Leukocytosis COPD Leukocytosis - likley 2/2 sterroids PNA - nl resp justyn on the sputum clx s/p 8 days of abx ALLYSON renal fnx worse eosinophils not seen dc zosyn fu blood clx
[2018-07-11 18:34] LABS: Bilirubin,Urine Negative (Negative); Clarity,Urine Clear (Clear); Color,Urine Colorless (Yellw/Straw); Glucose,Urine (UA) Negative (Negative); Leukocyte Esterase,Urine Trace (Negative); Mucus,Urine Few /lpf (Occasional); Nitrite,Urine Negative (Negative); Specific Gravity,Urine 1.006 (1.002-1.035)
--- NOTE | 2018-07-11 19:08 | P.PNPL ---
Subjective Interval history: 73 YOAA male with COPD, 02 dependent Follows at [facility] Admitted with AMS, COPD exac On NC, denies sob Abd less distended NGT to suction. Physical Exam Vital signs: Vital Signs 07/10/18 20:00 07/10/18 20:16 07/10/18 22:00 Temperature 97.8 F Pulse Rate 103 H 105 H 103 H Respiratory Rate 14 21 Blood Pressure 135/65 Pulse Oximetry 96 97 07/10/18 23:55 07/11/18 00:00 07/11/18 02:00 Temperature 98.2 F Pulse Rate 105 H 106 H 107 H Respiratory Rate 18 16 Blood Pressure 127/57 L Pulse Oximetry 96 07/11/18 03:27 07/11/18 04:00 07/11/18 06:00 Temperature 98.7 F Pulse Rate 103 H 109 H 102 H Respiratory Rate 12 15 Blood Pressure 139/62 Pulse Oximetry 100 07/11/18 07:53 07/11/18 08:00 07/11/18 12:00 Temperature 98 F 97.9 F Pulse Rate 109 H 108 H 108 H Respiratory Rate 23 15 16 Blood Pressure 139/79 148/68 H Pulse Oximetry 96 98 96 07/11/18 16:00 Temperature 98.6 F Pulse Rate 111 H Respiratory Rate 15 Blood Pressure 137/57 L Pulse Oximetry 98 Intake & Output 07/11/18 07/11/18 07/12/18 06:59 18:59 06:59 Intake Total 700 / 700 400 / 400 Output Total 3050 / 3050 Balance -2350 / -2350 400 / 400 Weight 82 kg Intake: IV 700 / 700 400 / 400 Lasix Inj 100 MG In NS Inj 90 100 / 100 100 / 100 ML @ 10 mls/hr IV.CONT .Q10H [facility] Rx#:[id number] Zosyn 4.5 GM Premix 4.5 gm In 300 / 300 200 / 200 100 ml @ 200 mls/hr IV.SIG Q6H [facility] Rx#:[id number] Flagyl 500 MG Inj 100 ML @ 100 300 / 300 100 / 100 mls/hr IV.SIG Q8H [facility] Rx#: [id number] Oral 0 / 0 Output: Stool 0 / 0 Urine Amount (Catheter) 2800 / 2800 Indwelling Urethral Catheter 2800 / 2800 Gastric Drainage 250 / 250 Right Nare Nasogastric Tube 250 / 250 Other: Date of Last Bowel Movement 07/11/18 - Urinary Catheter Management Indwelling Urethral Catheter Cath placed during this visit: yes, but has since been removed by the nurse Reason for continuing: Other continuation reason Insertion date: 07/10/18 Insertion time: 20:00 Removal date: 07/08/18 Removal time: 11:50 Assessment and Plan - Plan IMPRESSION: Hypercapnoic RF, Reintubated COPD exac AMS improved 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 PLAN: Aerosol nebs Cont Abx Supplement 02 Monitor BS
[2018-07-11] MEDS ORDERED: Atropine Inj 1 MG/10 ML Syringe ONE (20:55)
[2018-07-11] MEDS ORDERED: Neostigmine Inj 5 MG/5 ML Syringe IV.PUSH ONE (21:00)
[2018-07-12] MEDS: Oral Hygiene Kit OROPHARYNG SCH ×4 (00:09→17:05)
[2018-07-12] MEDS: Insulin NovoLIN Regular Correctional Sugar Inj SQ SCH ×5 (00:09→21:10)
[2018-07-12] MEDS: Artificial Tears Opth Drops 15 ML Bottle EACH EYE SCH ×3 (00:09→17:06)
[2018-07-12] MEDS: Famotidine PF Inj 20 MG/2 ML Vial IV.PUSH SCH (05:29)
--- NOTE | 2018-07-12 07:50 | P.PNCC ---
Subjective Subjective Remarks/Hospital Course: Mr. Curry is a 73-year-old -Portuguese male with past medical history significant for COPD on 3 L nasal cannula, hypertension, hyperlipidemia and anxiety who was admitted to the hospitalist service on 06/19/2018 for worsening shortness of breath due to COPD exacerbation. He was treated with IV Solu- Medrol, IV antibiotics, breathing treatments gradually improved. Patient was also complaining about dyspepsia and underwent EGD by GI yesterday. Per report the EGD was normal but patient developed worsening shortness of breath and COPD exacerbation postprocedure, possibly from aspiration after sedated. Two ABGs done yesterday showed hypercapnic respiratory failure second 1 was on BiPAP and this was improved with pH 7.3 with PCO2 of 74. Patient remained on BiPAP overnight however was noticed to be lethargic today a.m., stat ABG showed pH of 7.21 PCO2 110 PO2 88 while on BiPAP. Patient was lethargic intermittently dozing off due to CO2 narcosis. Critical care medicine was consulted and I immediately evaluated the patient. Patient had obviously failed BiPAP I proceeded with endotracheal intubation placed on mechanical ventilation. Postintubation I have ordered single dose of Solu-Medrol 125 mg x1 continue Solu -Medrol 60 every 8, discontinue ceftriaxone and start cefepime 2 g IV every 8 hours continue azithromycin. Add budesonide inhaled, placed on scheduled DuoNeb every 4 hours and as needed. 06/27: Patient was intubated yesterday for severe hypercapnic respiratory failure. Currently remains intubated sedated and intubated remains diminished bilaterally. Heavily sedated for ventilator synchrony 06/28: Urine output significantly improved with fluid resuscitation. Creat down trending now 2 from 2.3, UO >3.3 L. Remains intubated sedated. Will initiate daily sedation vacation and CPAP trials 06/29: More awake today tolerating CPAP trials intermittently follows commands but gets agitated/frustrated fast. Urine output remains excellent creatinine 1.4. However sodium increasing 158 today. 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 Due to hypoglycemia will change to quarter normal saline at 150 mL/h repeat CMP in the afternoon 06/30 Patient was extubated yesterday. Awake 07/01 Patient is lying in bed in NAD. T: 100.5 07/02: Intubated early this morning due to acute hypoxic respiratory failure. Central line placed due to hypotension. Plan for GI perform endoscopic decompression of this large bowel today. Arousable and does follow commands. Placed on argatroban SUBJECTIVE: 07/03: Currently, intubated with borderline blood pressure. Central line placed yesterday due to hypotension. Did not move bowels despite 1 L of fluid from colonoscopy yesterday and multiple laxatives provided. See orders for additional laxatives today. Might need neostigmine. 07/04 Patient remains intubated and sedated with Diprivan. Given Neostigmine last night. KUB this morning showed colonic ileus. Afebrile. On Argatroban. 07/05 No events overnight, sedated with Diprivan and intubated. Off Argatroban. 07/06 Patient remains intubated and sedated. Afebrile. 07/07 Patient remains intubated, s/p decompressive colonoscopy yesterday. Awake. 07/08 Patient s/p extubation yesterday. Awake and alert. 07/09 Patient is awake, alert lying in bed in NAD. Afebrile. 07/10 Patient is awake and alert, Afebrile. 07/11 Patient s/p decompressive colonoscopy yesterday. Afebrile. On Lasix drip.( UOP: 2800ml overnight). Cr: 3.0 from 2.25. 07/12 Patient is awake, alert given Neostigmine overnight. NGT to LI, off Lasix drip. Objective Vital Signs / I&O: Vital Signs 07/11/18 07:53 07/11/18 08:00 07/11/18 10:00 Temperature 98 F Pulse Rate 109 H 108 H 107 H Respiratory Rate 23 15 Blood Pressure 139/79 Pulse Oximetry 96 98 07/11/18 12:00 07/11/18 14:00 07/11/18 16:00 Temperature 97.9 F 98.6 F Pulse Rate 108 H 103 H 111 H Respiratory Rate 16 15 Blood Pressure 148/68 H 137/57 L Pulse Oximetry 96 98 07/11/18 18:00 07/11/18 19:48 07/11/18 20:00 Temperature 98.7 F Pulse Rate 105 H 108 H 111 H Respiratory Rate 18 15 Blood Pressure 115/56 L Pulse Oximetry 97 97 07/11/18 21:24 07/11/18 22:00 07/12/18 00:00 Temperature 98.2 F Pulse Rate 88 89 Respiratory Rate 18 13 Blood Pressure 102/60 Pulse Oximetry 100 07/12/18 02:00 07/12/18 04:00 07/12/18 06:00 Temperature 98.0 F Pulse Rate 92 H 93 H 101 H Respiratory Rate 19 Blood Pressure 139/68 Pulse Oximetry 95 07/12/18 07:43 Temperature Pulse Rate Respiratory Rate Blood Pressure Pulse Oximetry 95 Intake & Output 07/11/18 07/12/18 07/12/18 18:59 06:59 18:59 Intake Total 400 / 400 100 / 100 Output Total 3600 / 3600 1900 / 1900 Balance -3200 / -3200 -1800 / -1800 Weight 90 kg Intake: IV 400 / 400 100 / 100 Lasix Inj 100 MG In NS Inj 90 100 / 100 ML @ 10 mls/hr IV.CONT .Q10H WOLF Rx#:[id number] Zosyn 4.5 GM Premix 4.5 gm In 200 / 200 100 ml @ 200 mls/hr IV.SIG Q6H WOLF Rx#:[id number] Flagyl 500 MG Inj 100 ML @ 100 100 / 100 100 / 100 mls/hr IV.SIG Q8H WOLF Rx#: [id number] Oral 0 / 0 Output: Urine Amount (Catheter) 3000 / 3000 1900 / 1900 Indwelling Urethral Catheter 3000 / 3000 1900 / 1900 Gastric Drainage 600 / 600 Right Nare Nasogastric Tube 600 / 600 Other: Date of Last Bowel Movement 07/11/18 07/11/18 # Bowel Movements 2 3 Result Diagrams: 07/11/18 13:50 07/11/18 02:48 Other Results: Laboratory Results - last 12 hr 07/11/18 07/12/18 07/12/18 21:24 00:00 04:55 POC Glucose 197 H 163 H 140 H Imaging: Abdomen Ultrasound 06/21/18 00:00 CONCLUSION: 1. No ascites is identified within the abdomen. Abdomen/Bladder Ultrasound 06/28/18 00:00 CONCLUSION: 1. Echogenic kidneys characteristic of medical renal disease. No hydronephrosis. Bladder decompressed by [place] Chest CTA 07/02/18 00:00 CONCLUSION: 1. No pulmonary embolus. 2. Diffuse but basilar predominant bilateral airspace disease. 3. Endotracheal and endobronchial secretions are demonstrated. 4. Moderate emphysema. 5. Left ventricular hypertrophy. Venous Doppler Study 07/02/18 00:00 CONCLUSION: 1. Limited, no evidence for thrombosis. Abdomen/Pelvis CT 07/10/18 08:31 CONCLUSION: 1. There is gas and fluid distending the colon. The patient has a rectal tube in place however the rectal tube is kinked back on itself and occluded. The overall size of the colon has mildly increased when compared to previous exam. The small bowel is normal in caliber. 2. Interval development of a small left basilar effusion and atelectasis. Chest X-Ray 07/10/18 08:42 CONCLUSION: Mild patchy bilateral lung base opacity likely representing atelectasis unchanged. Small left pleural effusion now seen. Abdomen X-Ray 07/11/18 00:00 CONCLUSION: 1. Questionable NGT at the GE junction, as above. 2. Moderately improved colonic distention. Objective Remarks: GENERAL: Patient is 73 yo lying in bed in NAD SKIN: Warm and dry. HEAD: Normocephalic. EYES: No scleral icterus. No injection or drainage. NECK: Supple, trachea midline. No JVD or lymphadenopathy. CARDIOVASCULAR:tachycardic without murmurs, gallops, or rubs. RESPIRATORY: B/l equal air entry GASTROINTESTINAL: Abdomen distended. Protuberant. hypoactive BS MUSCULOSKELETAL: No significant peripheral edema. Neuro: Awake and alert Assessment and Plan - Assessment and Plan Plan: ASSESSMENT: Acute hypercapnic respiratory failure Acute COPD exacerbation Altered mental status due to CO2 narcosis Acute kidney injury/failure Hypertension Leukocytosis Hyperglycemia COPD Hypernatremia Colonic ileus PLAN: NEURO: -Monitor neuro status, avoid sedatives -Awake and alert RESP: -Continue with oxygen keep sats >92% -Extubated 06/29. Reintubated 07/02 extubated 07/07 -DuoNeb every 4 hours scheduled and as needed -Solu-Medrol 40 mg daily -Inhaled budesonide -NIPPV PRN for resp distress -07/02 CTA chest:No PE, bibasilar air space disease -07/02 Doppler US LE negative DVT -CXR 07/10: Mild patchy bilateral lung base opacity likely representing atelectasis unchanged. Small left pleural effusion CV: - Monitor HR and BP keep MAP>65mmHg -Continue with BP meds, Cardizem 60mg Q6, GI: -KUB 07/11: Moderately improved colonic distention. Given Neostigmine overnight. -Monitor IAP, Surgery is following- Dr. Oh -NGT to FRAN -s/p repeat decompressive colonoscopy 07/10 07/10: CT abd/pelvis: There is gas and fluid distending the colon. The overall size of the colon has mildly increased when compared to previous exam. The small bowel is normal in caliber. - 07/09 KUB abdomen: Improving bowel gas pattern consistent with improving adynamic ileus. -IV famotidine -Rectal tube to suction -CT abd/pelvis 07/02 :Colonic distention most likely representing moderate adynamic ileus. However, distal sigmoid colon is decompressed and a sigmoid stricture is conceivable but considered less likely -GI for decompression 07/02. On docusate sodium/senna 1 tablet twice daily, lactulose 30 cc 4 times daily, -KUB 07/04- colonic ileus, -KUB 07/05: No significant interval change with persistent diffuse air-filled distention of the colon suggesting ileus. -GI follow s/p decompressive colonoscopy 07/06 -KUB 07/07: Gaseous distention of multiple bowel loops has improved since previous study. FEN/: -Monitor renal function, I/O's, avoid nephrotoxins - Renal- Dr. Figueroa, off Lasix drip, follow up BMP ID: -Off Zosyn, on Flagyl, monitor for signs of infections ( Fever, WBC) -Follow up on BC and urine cx from 07/11- NGTD -07/02 BC: NGTS, sputum cx 07/02:normal resp justyn -ID is following- Dr. Brown HEME: -Monitor CBC, coags, Hep PLT is positive. ANNMARIE negative. Hematology is following. Off argatroban drip ENDO: -Electrolyte replacement per protocol -Sliding scale insulin medium scale PROPH: -Bilateral lower extremity SCDs. PPI , -Doppler US LE negative DVT 07/02 LINES: -Utilize peripheral IVs, Level 3
[2018-07-12] MEDS: Polyethylene Glycol 3350 17 GM Packet PO SCH (09:34)
[2018-07-12] MEDS: dilTIAZem 60 MG Tablet PO SCH ×3 (09:34→21:10)
[2018-07-12] MEDS: Bisacodyl 10 MG Supp RECTAL SCH (09:34)
[2018-07-12] MEDS: MethylPREDNISolone Sod Succinate Inj 40 MG/ML Vial IV.PUSH SCH (09:34)
[2018-07-12] MEDS: Senna/Docusate Sodium 8.6/50 MG Tablet PO SCH ×2 (09:34→21:10)
--- NOTE | 2018-07-12 10:48 | P.PNGI ---
Subjective Interval history: Awake answer simple questions denies any abdominal pain, still has some mild to moderate distention , taut, mild tympany Heart rate 104 , NG tube clears with some dark flakes, low intermittent suction Physical Exam Vital signs: Vital Signs 07/11/18 12:00 07/11/18 14:00 07/11/18 16:00 Temperature 97.9 F 98.6 F Pulse Rate 108 H 103 H 111 H Respiratory Rate 16 15 Blood Pressure 148/68 H 137/57 L Pulse Oximetry 96 98 07/11/18 18:00 07/11/18 19:48 07/11/18 20:00 Temperature 98.7 F Pulse Rate 105 H 108 H 111 H Respiratory Rate 18 15 Blood Pressure 115/56 L Pulse Oximetry 97 97 07/11/18 21:24 07/11/18 22:00 07/12/18 00:00 Temperature 98.2 F Pulse Rate 88 89 Respiratory Rate 18 13 Blood Pressure 102/60 Pulse Oximetry 100 07/12/18 02:00 07/12/18 04:00 07/12/18 06:00 Temperature 98.0 F Pulse Rate 92 H 93 H 101 H Respiratory Rate 19 Blood Pressure 139/68 Pulse Oximetry 95 07/12/18 07:43 07/12/18 08:00 07/12/18 09:44 Temperature Pulse Rate 105 H Respiratory Rate 19 Blood Pressure Pulse Oximetry 95 07/12/18 10:00 Temperature Pulse Rate 98 H Respiratory Rate Blood Pressure Pulse Oximetry Intake & Output 07/11/18 07/12/18 07/12/18 18:59 06:59 18:59 Intake Total 400 / 400 100 / 100 Output Total 3600 / 3600 1900 / 1900 Balance -3200 / -3200 -1800 / -1800 Weight 90 kg Intake: IV 400 / 400 100 / 100 Lasix Inj 100 MG In NS Inj 90 100 / 100 ML @ 10 mls/hr IV.CONT .Q10H WOLF Rx#:[id number] Zosyn 4.5 GM Premix 4.5 gm In 200 / 200 100 ml @ 200 mls/hr IV.SIG Q6H WOLF Rx#:[id number] Flagyl 500 MG Inj 100 ML @ 100 100 / 100 100 / 100 mls/hr IV.SIG Q8H WOLF Rx#: [id number] Oral 0 / 0 Output: Urine Amount (Catheter) 3000 / 3000 1900 / 1900 Indwelling Urethral Catheter 3000 / 3000 1900 / 1900 Gastric Drainage 600 / 600 Right Nare Nasogastric Tube 600 / 600 Other: Date of Last Bowel Movement 07/11/18 07/11/18 07/11/18 # Bowel Movements 2 3 - Constitutional moderate distress, obese, cachectic, disheveled, cooperative - Routine HEENT Exam Head: Present: normocephalic ENT: Present: mucous membranes moist (NG tube to low intermittent suction) - Routine Respiratory Exam Present: accessory muscle use (Low volumes) - Routine Cardiovascular Exam Present: S1, S2 (Distant) - Routine Abdominal Exam Present: distended (Mild to moderate, occasional bowel sounds, taut,) - Urinary Catheter Management Indwelling Urethral Catheter Cath placed during this visit: yes, but has since been removed by the nurse Reason for continuing: Other continuation reason Insertion date: 07/10/18 Insertion time: 20:00 Removal date: 07/08/18 Removal time: 11:50 Results - Labs CBC & Chem 7: 07/11/18 13:50 07/12/18 10:09 Laboratory Results - last 24 hr 07/11/18 07/11/18 07/11/18 12:33 13:50 16:50 WBC 18.2 H RBC 2.43 L Hgb 7.4 L Hct 22.2 L MCV 91.1 MCH 30.5 MCHC 33.5 RDW 13.8 Plt Count 56 L MPV 10.0 Prelim Diff (Auto) Slide review pending Neut % (Auto) 98.2 H Lymph % (Auto) 0.6 L [place] % (Auto) 1.0 Eos % (Auto) 0.0 Baso % (Auto) 0.2 Neut # (Auto) 17.9 H Lymph # (Auto) 0.1 L [place] # (Auto) 0.2 Eos # (Auto) 0.0 Baso # (Auto) 0.0 WBC Differential . Diff Scan Auto diff confirmed Differential Comment . Platelet Estimate Low L Platelet Morphology Normal POC Glucose 187 H Urine Color Colorless Urine Clarity Clear Urine pH 5.0 Ur Specific [place] 1.006 Urine Protein Negative Urine Glucose (UA) Negative Urine Ketones Negative Urine Occult Blood Moderate H Urine Nitrate Negative Urine Bilirubin Negative Urine Urobilinogen Less than 2 Ur Leukocyte Esterase Trace H Urine RBC 2 Urine WBC 14 H Urine Mucus Few H Micro UA Comment Cath-culture ind Ur Microscopic Review Not Reportable Urine Culture Comments Cath-cult indicated 07/11/18 07/11/18 07/12/18 17:42 21:24 00:00 WBC RBC Hgb Hct MCV MCH MCHC RDW Plt Count MPV Prelim Diff (Auto) Neut % (Auto) Lymph % (Auto) [place] % (Auto) Eos % (Auto) Baso % (Auto) Neut # (Auto) Lymph # (Auto) [place] # (Auto) Eos # (Auto) Baso # (Auto) WBC Differential Diff Scan Differential Comment Platelet Estimate Platelet Morphology POC Glucose 239 H 197 H 163 H Urine Color Urine Clarity Urine pH Ur Specific [place] Urine Protein Urine Glucose (UA) Urine Ketones Urine Occult Blood Urine Nitrate Urine Bilirubin Urine Urobilinogen Ur Leukocyte Esterase Urine RBC Urine WBC Urine Mucus Micro UA Comment Ur Microscopic Review Urine Culture Comments 07/12/18 04:55 WBC RBC Hgb Hct MCV MCH MCHC RDW Plt Count MPV Prelim Diff (Auto) Neut % (Auto) Lymph % (Auto) [place] % (Auto) Eos % (Auto) Baso % (Auto) Neut # (Auto) Lymph # (Auto) [place] # (Auto) Eos # (Auto) Baso # (Auto) WBC Differential Diff Scan Differential Comment Platelet Estimate Platelet Morphology POC Glucose 140 H Urine Color Urine Clarity Urine pH Ur Specific [place] Urine Protein Urine Glucose (UA) Urine Ketones Urine Occult Blood Urine Nitrate Urine Bilirubin Urine Urobilinogen Ur Leukocyte Esterase Urine RBC Urine WBC Urine Mucus Micro UA Comment Ur Microscopic Review Urine Culture Comments Assessment and Plan - Plan Assessment Abdominal distention/ileus Pt with long standing history of constipation and is on daily narcotics at home, according to his significant other takes Aloe Vera for constipation but this has not been working Previously seen by our service earlier in this admission status post diagnostic colonoscopy on (07/02) The sigmoid colon was clear then there was significant amount of stool in the descending colon, transverse colon, and part of the sigmoid colon consistent with stool impaction. Attempted to disimpact the patient with fluid as much as possible. Rectum exam was normal. S/P decompressive colonoscopy (07/06) stool in cecum, large amount of water flush, stool section. Internal Hemorrhoids. Neostigmine given on 07/04 and 07/06 Relistor given on 07/02 and 07/03 Pt has also been on on Lactulose QID and Miralax daily CT abd/pelvis WO IV contrast (07/10) There is gas and fluid distending the colon. The patient has a rectal tube in place however the rectal tube is kinked back on itself and occluded. The overall size of the colon has mildly increased when compared to previous exam. The small bowel is normal in caliber. Decompressive colonoscopy (07/10) Ischemic ulcer cecum. Some semisolid stool suctioned. Marked decompression Rectal ulcer from rectal tube. Internal and external hemorrhoids (07/11) Pts abdomen some less distention and pain today. Still with NG to LIWS. Rectal tube discontinued yesterday. According to RN multiple loose stools today. Neostigmine has not been administered yet, waiting to receive it from pharmacy. 07/12/2018 last hemoglobin 7.4, WBC count 18.2, heart rate 104, abdomen continues to have mild to moderate distention and taut, mild improvement of abdominal bloating. Notes status post decompressive colonoscopy on 07/10, rectal tube. Patient input from GS. Who is continuing to monitor labs and any resolution to patient's chronic ileus. Mild gradual improvement , continues to require intensive care setting Plan NG tube to low intermittent suction possible coffee-ground emesis noted If patient shows no improvement consider decompressive cecostomy per general surgery Fleets enemas daily Monitor labs and correct electrolytes Consider weaning off narcotics completely Continue to monitor hemoglobin Pepcid, Protonix IV twice BID, steroids continue for now Reglan, Relistor, Mylicon and MiraLAX Monitor bowel movements, colonic distention Supportive care Patient was seen per myself and Dr. Nicholas , note was written on his behalf
[2018-07-12] MEDS: Chlorhexidine 0.12% Oral Kit 15 ML UDC OROPHARYNG SCH ×2 (11:23→21:11)
[2018-07-12] MEDS: Hydrocortisone Acetate 25 MG Supp RECTAL SCH ×2 (11:24→21:11)
[2018-07-12] MEDS: Beneprotein Powder Packet G-TUBE SCH ×2 (11:27→13:00)
[2018-07-12 11:52] LABS: Albumin 2.3 g/dL (3.4-5.0); Calcium 7.3 mg/dL (8.5-10.1); Phosphorus 5.8 mg/dL (2.5-4.9); Potassium 3.2 meq/L (3.5-5.1); Total Protein 5.4 g/dL (6.4-8.2)
--- NOTE | 2018-07-12 11:55 | P.PNGS ---
Subjective Interval history: Persistent distention. Denies abdominal pain. Reportedly had small bm after neostigmine yesterday. Physical Exam Vital signs: Vital Signs 07/11/18 12:00 07/11/18 14:00 07/11/18 14:01 Temperature 97.9 F Pulse Rate 108 H 103 H 106 H Respiratory Rate 16 13 15 Blood Pressure 148/68 H 141/63 H Pulse Oximetry 96 98 98 07/11/18 15:00 07/11/18 16:00 07/11/18 17:00 Temperature 98.6 F Pulse Rate 106 H 111 H 104 H Respiratory Rate 15 20 17 Blood Pressure 170/74 H 137/67 138/70 Pulse Oximetry 98 98 97 07/11/18 18:00 07/11/18 18:01 07/11/18 19:01 Temperature Pulse Rate 105 H 107 H 107 H Respiratory Rate 16 20 15 Blood Pressure 173/60 H 153/86 H Pulse Oximetry 98 98 98 07/11/18 19:48 07/11/18 20:00 07/11/18 20:01 Temperature 98.7 F Pulse Rate 108 H 111 H 111 H Respiratory Rate 18 15 15 Blood Pressure 115/56 L 115/56 L Pulse Oximetry 97 97 97 07/11/18 21:01 07/11/18 21:24 07/11/18 22:00 Temperature Pulse Rate 75 88 Respiratory Rate 13 18 15 Blood Pressure 127/91 H Pulse Oximetry 99 91 L 07/11/18 22:02 07/11/18 23:00 07/12/18 00:00 Temperature 98.2 F Pulse Rate 95 H 86 194 H Respiratory Rate 22 14 13 Blood Pressure 135/59 L 106/59 L 102/60 Pulse Oximetry 90 L 99 100 07/12/18 01:00 07/12/18 02:00 07/12/18 02:01 Temperature Pulse Rate 96 H 92 H 93 H Respiratory Rate 17 17 28 H Blood Pressure 114/57 L 117/90 Pulse Oximetry 96 94 L 94 L 07/12/18 03:00 07/12/18 04:00 07/12/18 05:00 Temperature 98.0 F Pulse Rate 91 H 93 H 89 Respiratory Rate 22 19 15 Blood Pressure 107/70 139/68 130/78 Pulse Oximetry 98 95 95 07/12/18 06:00 07/12/18 07:00 07/12/18 07:43 Temperature Pulse Rate 101 H 104 H Respiratory Rate 16 21 Blood Pressure 121/81 117/57 L Pulse Oximetry 95 94 L 95 07/12/18 08:00 07/12/18 09:00 07/12/18 09:44 Temperature Pulse Rate 106 H 103 H Respiratory Rate 17 17 19 Blood Pressure 122/61 130/59 L Pulse Oximetry 99 07/12/18 10:00 07/12/18 10:48 07/12/18 11:00 Temperature Pulse Rate 100 H 97 H 107 H Respiratory Rate 14 13 12 Blood Pressure 130/57 L 120/56 L Pulse Oximetry 100 100 100 07/12/18 11:04 Temperature Pulse Rate 96 H Respiratory Rate 20 Blood Pressure Pulse Oximetry Intake & Output 07/11/18 07/12/18 07/12/18 18:59 06:59 18:59 Intake Total 400 / 400 100 / 100 Output Total 3600 / 3600 1900 / 1900 Balance -3200 / -3200 -1800 / -1800 Weight 90 kg Intake: IV 400 / 400 100 / 100 Lasix Inj 100 MG In NS Inj 90 100 / 100 ML @ 10 mls/hr IV.CONT .Q10H [facility] Rx#:[id number] Zosyn 4.5 GM Premix 4.5 gm In 200 / 200 100 ml @ 200 mls/hr IV.SIG Q6H [facility] Rx#:[id number] Flagyl 500 MG Inj 100 ML @ 100 100 / 100 100 / 100 mls/hr IV.SIG Q8H [facility] Rx#: [id number] Oral 0 / 0 Output: Urine Amount (Catheter) 3000 / 3000 1900 / 1900 Indwelling Urethral Catheter 3000 / 3000 1900 / 1900 Gastric Drainage 600 / 600 Right Nare Nasogastric Tube 600 / 600 Other: Date of Last Bowel Movement 07/11/18 07/11/18 07/11/18 # Bowel Movements 2 3 Narrative: abd: soft, distended, tympanitic, nontender - Urinary Catheter Management Indwelling Urethral Catheter Cath placed during this visit: yes, but has since been removed by the nurse Reason for continuing: Other continuation reason Insertion date: 07/10/18 Insertion time: 20:00 Removal date: 07/08/18 Removal time: 11:50 Results - Labs 07/11/18 13:50 07/11/18 02:48 Laboratory Results - last 24 hr 07/11/18 07/11/18 07/11/18 12:33 13:50 16:50 WBC 18.2 H RBC 2.43 L Hgb 7.4 L Hct 22.2 L MCV 91.1 MCH 30.5 MCHC 33.5 RDW 13.8 Plt Count 56 L MPV 10.0 Prelim Diff (Auto) Slide review pending Neut % (Auto) 98.2 H Lymph % (Auto) 0.6 L O'Brien % (Auto) 1.0 Eos % (Auto) 0.0 Baso % (Auto) 0.2 Neut # (Auto) 17.9 H Lymph # (Auto) 0.1 L O'Brien # (Auto) 0.2 Eos # (Auto) 0.0 Baso # (Auto) 0.0 WBC Differential . Diff Scan Auto diff confirmed Differential Comment . Platelet Estimate Low L Platelet Morphology Normal POC Glucose 187 H Urine Color Colorless Urine Clarity Clear Urine pH 5.0 Ur Specific Keeler 1.006 Urine Protein Negative Urine Glucose (UA) Negative Urine Ketones Negative Urine Occult Blood Moderate H Urine Nitrate Negative Urine Bilirubin Negative Urine Urobilinogen Less than 2 Ur Leukocyte Esterase Trace H Urine RBC 2 Urine WBC 14 H Urine Mucus Few H Micro UA Comment Cath-culture ind Ur Microscopic Review Not Reportable Urine Culture Comments Cath-cult indicated 07/11/18 07/11/18 07/12/18 17:42 21:24 00:00 WBC RBC Hgb Hct MCV MCH MCHC RDW Plt Count MPV Prelim Diff (Auto) Neut % (Auto) Lymph % (Auto) O'Brien % (Auto) Eos % (Auto) Baso % (Auto) Neut # (Auto) Lymph # (Auto) O'Brien # (Auto) Eos # (Auto) Baso # (Auto) WBC Differential Diff Scan Differential Comment Platelet Estimate Platelet Morphology POC Glucose 239 H 197 H 163 H Urine Color Urine Clarity Urine pH Ur Specific Keeler Urine Protein Urine Glucose (UA) Urine Ketones Urine Occult Blood Urine Nitrate Urine Bilirubin Urine Urobilinogen Ur Leukocyte Esterase Urine RBC Urine WBC Urine Mucus Micro UA Comment Ur Microscopic Review Urine Culture Comments 07/12/18 07/12/18 04:55 11:13 WBC RBC Hgb Hct MCV MCH MCHC RDW Plt Count MPV Prelim Diff (Auto) Neut % (Auto) Lymph % (Auto) O'Brien % (Auto) Eos % (Auto) Baso % (Auto) Neut # (Auto) Lymph # (Auto) O'Brien # (Auto) Eos # (Auto) Baso # (Auto) WBC Differential Diff Scan Differential Comment Platelet Estimate Platelet Morphology POC Glucose 140 H 142 H Urine Color Urine Clarity Urine pH Ur Specific Keeler Urine Protein Urine Glucose (UA) Urine Ketones Urine Occult Blood Urine Nitrate Urine Bilirubin Urine Urobilinogen Ur Leukocyte Esterase Urine RBC Urine WBC Urine Mucus Micro UA Comment Ur Microscopic Review Urine Culture Comments - Imaging Imaging: ITS Impressions Abdomen Ultrasound 06/21/18 00:00 CONCLUSION: 1. No ascites is identified within the abdomen. Abdomen/Bladder Ultrasound 06/28/18 00:00 CONCLUSION: 1. Echogenic kidneys characteristic of medical renal disease. No hydronephrosis. Bladder decompressed by [facility] Chest CTA 07/02/18 00:00 CONCLUSION: 1. No pulmonary embolus. 2. Diffuse but basilar predominant bilateral airspace disease. 3. Endotracheal and endobronchial secretions are demonstrated. 4. Moderate emphysema. 5. Left ventricular hypertrophy. Venous Doppler Study 07/02/18 00:00 CONCLUSION: 1. Limited, no evidence for thrombosis. Abdomen/Pelvis CT 07/10/18 08:31 CONCLUSION: 1. There is gas and fluid distending the colon. The patient has a rectal tube in place however the rectal tube is kinked back on itself and occluded. The overall size of the colon has mildly increased when compared to previous exam. The small bowel is normal in caliber. 2. Interval development of a small left basilar effusion and atelectasis. Chest X-Ray 07/10/18 08:42 CONCLUSION: Mild patchy bilateral lung base opacity likely representing atelectasis unchanged. Small left pleural effusion now seen. Abdomen X-Ray 07/11/18 00:00 CONCLUSION: 1. Questionable NGT at the GE junction, as above. 2. Moderately improved colonic distention. Assessment and Plan - Assessment (1) Paralytic ileus of large intestine Code(s): K56.0 - Paralytic ileus Status: Acute - Plan He has not had resolution of large bowel ileus yet. Check KUB again. F/u labs. Cont NGT to suction.
--- NOTE | 2018-07-12 12:28 | P.PNNP ---
Subjective Interval history: Patient awake, tired today Physical Exam Vital signs: Vital Signs 07/11/18 14:00 07/11/18 14:01 07/11/18 15:00 Temperature Pulse Rate 103 H 106 H 106 H Respiratory Rate 13 15 15 Blood Pressure 141/63 H 170/74 H Pulse Oximetry 98 98 98 07/11/18 16:00 07/11/18 17:00 07/11/18 18:00 Temperature 98.6 F Pulse Rate 111 H 104 H 105 H Respiratory Rate 20 17 16 Blood Pressure 137/67 138/70 Pulse Oximetry 98 97 98 07/11/18 18:01 07/11/18 19:01 07/11/18 19:48 Temperature Pulse Rate 107 H 107 H 108 H Respiratory Rate 20 15 18 Blood Pressure 173/60 H 153/86 H Pulse Oximetry 98 98 97 07/11/18 20:00 07/11/18 20:01 07/11/18 21:01 Temperature 98.7 F Pulse Rate 111 H 111 H 75 Respiratory Rate 15 15 13 Blood Pressure 115/56 L 115/56 L 127/91 H Pulse Oximetry 97 97 99 07/11/18 21:24 07/11/18 22:00 07/11/18 22:02 Temperature Pulse Rate 88 95 H Respiratory Rate 18 15 22 Blood Pressure 135/59 L Pulse Oximetry 91 L 90 L 07/11/18 23:00 07/12/18 00:00 07/12/18 01:00 Temperature 98.2 F Pulse Rate 86 194 H 96 H Respiratory Rate 14 13 17 Blood Pressure 106/59 L 102/60 114/57 L Pulse Oximetry 99 100 96 07/12/18 02:00 07/12/18 02:01 07/12/18 03:00 Temperature Pulse Rate 92 H 93 H 91 H Respiratory Rate 17 28 H 22 Blood Pressure 117/90 107/70 Pulse Oximetry 94 L 94 L 98 07/12/18 04:00 07/12/18 05:00 07/12/18 06:00 Temperature 98.0 F Pulse Rate 93 H 89 101 H Respiratory Rate 19 15 16 Blood Pressure 139/68 130/78 121/81 Pulse Oximetry 95 95 95 07/12/18 07:00 07/12/18 07:43 07/12/18 08:00 Temperature Pulse Rate 104 H 106 H Respiratory Rate 21 17 Blood Pressure 117/57 L 122/61 Pulse Oximetry 94 L 95 99 07/12/18 09:00 07/12/18 09:44 07/12/18 10:00 Temperature Pulse Rate 103 H 100 H Respiratory Rate 17 19 14 Blood Pressure 130/59 L Pulse Oximetry 100 07/12/18 10:48 07/12/18 11:00 07/12/18 11:04 Temperature Pulse Rate 97 H 107 H 96 H Respiratory Rate 13 12 20 Blood Pressure 130/57 L 120/56 L Pulse Oximetry 100 100 07/12/18 12:00 Temperature Pulse Rate 106 H Respiratory Rate 19 Blood Pressure 109/59 L Pulse Oximetry 98 Intake & Output 07/11/18 07/12/18 07/12/18 18:59 06:59 18:59 Intake Total 400 / 400 100 / 100 Output Total 3600 / 3600 1900 / 1900 Balance -3200 / -3200 -1800 / -1800 Weight 90 kg Intake: IV 400 / 400 100 / 100 Lasix Inj 100 MG In NS Inj 90 100 / 100 ML @ 10 mls/hr IV.CONT .Q10H [facility] Rx#:[id number] Zosyn 4.5 GM Premix 4.5 gm In 200 / 200 100 ml @ 200 mls/hr IV.SIG Q6H [facility] Rx#:[id number] Flagyl 500 MG Inj 100 ML @ 100 100 / 100 100 / 100 mls/hr IV.SIG Q8H [facility] Rx#: [id number] Oral 0 / 0 Output: Urine Amount (Catheter) 3000 / 3000 1900 / 1900 Indwelling Urethral Catheter 3000 / 3000 1900 / 1900 Gastric Drainage 600 / 600 Right Nare Nasogastric Tube 600 / 600 Other: Date of Last Bowel Movement 07/11/18 07/11/18 07/11/18 # Bowel Movements 2 3 - Constitutional no acute distress - Routine HEENT Exam Head: Present: normocephalic - Routine Neck Exam Present: supple - Routine Respiratory Exam Present: decreased breath sounds - Routine Cardiovascular Exam Present: RRR - Routine Abdominal Exam Present: distended - Routine Extremities Exam Present: edema - Routine Skin Exam Present: intact - Routine Neurological Exam Present: alert, oriented X3 - Detailed Neurological Exam: Coma Scale Eye Opening: Spontaneous Verbal Response: Oriented - Routine Psychiatric Exam Present: normal affect - Urinary Catheter Management Indwelling Urethral Catheter Cath placed during this visit: yes, but has since been removed by the nurse Reason for continuing: Chronic Urinary Retention Insertion date: 07/10/18 Insertion time: 20:00 Removal date: 07/08/18 Removal time: 11:50 Assessment and Plan - Assessment (1) Acute renal failure Code(s): N17.9 - Acute kidney failure, unspecified Status: Acute (2) Anasarca Code(s): R60.1 - Generalized edema Status: Acute (3) Abdominal distention Code(s): R14.0 - Abdominal distension (gaseous) Status: Acute (4) Ileus Code(s): K56.7 - Ileus, unspecified Status: Acute - Plan ALLYSON with non-oliguric ATN Creatinine 3 -> 3.4 Good UOP with 4.9L UOP/24 hours No need for HD at this point - continue to monitor. Increesed UOP is encouraging Continue to follow with GI and surgery for ileus Will replace postassium, continue to follow electrolytes.
[2018-07-12] MEDS: Methylnaltrexone Inj 12 MG/0.6 ML Vial SQ SCH (12:33)
[2018-07-12] MEDS ORDERED: Potassium Chlor 40 mEq Premix 40 MEQ/100 ML PIGGYBACK IV.SIG ONE (12:45)
--- NOTE | 2018-07-12 13:51 | XR ---
EXAM DATE: 07/12/2018 1:40 PM EST AGE/SEX: 73 years / Male INDICATIONS: Abdominal distention. CLINICAL DATA: This is the patient's subsequent encounter. Patient reports that signs and symptoms h ave been present for 3 weeks and indicates a pain score of 0/10. MEDICAL/SURGICAL HISTORY: None. None. COMPARISON: [facility] – [place], [place], CT ABDOMEN & PELVIS W/O CONTRAST, 07/10/2018. . FINDINGS: Upper limits of normal to slightly distended small and large bowel typical of a generalized ileus no kajal. This is slightly worse compared to yesterday. I don't see any free air. The nasogastric tube tip is just a couple centimeters below the diaphragm. A hiatal hernia is suspected. CONCLUSION: Probable generalized ileus. No abrupt caliber changes are seen. No free air. Nasogastric tube tip is in the upper stomach. No gastric distention seen. Electronically signed by: Jimy Gold MD 07/12/2018 1:49 PM EST
[2018-07-12] MEDS: Pantoprazole Inj 40 MG Vial IV.PUSH SCH (16:20)
[2018-07-12] MEDS: Simethicone 80 MG Chew Tablet PO SCH ×3 (16:20→21:10)
[2018-07-12] MEDS: Sod Phosphate/Sod Biphosphate (Adult) Enema 133 ML Bottle RECTAL SCH (16:21)
[2018-07-13] MEDS: Insulin NovoLIN Regular Correctional Sugar Inj SQ SCH ×7 (01:05→21:20)
[2018-07-13] MEDS: dilTIAZem 60 MG Tablet PO SCH ×5 (01:06→21:19)
[2018-07-13] MEDS: Oral Hygiene Kit OROPHARYNG SCH ×4 (01:06→15:40)
[2018-07-13] MEDS: Simethicone 80 MG Chew Tablet PO SCH ×5 (01:06→21:21)
[2018-07-13] MEDS: Pantoprazole Inj 40 MG Vial IV.PUSH SCH ×2 (01:07→13:04)
[2018-07-13] MEDS: Artificial Tears Opth Drops 15 ML Bottle EACH EYE SCH ×3 (01:07→16:07)
[2018-07-13] MEDS: Beneprotein Powder Packet G-TUBE SCH ×2 (01:10→09:02)
[2018-07-13] MEDS: Famotidine PF Inj 20 MG/2 ML Vial IV.PUSH SCH ×2 (01:10→05:08)
[2018-07-13] MEDS: Chlorhexidine 0.12% Oral Kit 15 ML UDC OROPHARYNG SCH ×2 (08:57→21:20)
[2018-07-13] MEDS: Methylnaltrexone Inj 12 MG/0.6 ML Vial SQ SCH (08:59)
[2018-07-13] MEDS: MethylPREDNISolone Sod Succinate Inj 40 MG/ML Vial IV.PUSH SCH (08:59)
[2018-07-13] MEDS: Senna/Docusate Sodium 8.6/50 MG Tablet PO SCH ×2 (08:59→21:19)
[2018-07-13] MEDS: Sod Phosphate/Sod Biphosphate (Adult) Enema 133 ML Bottle RECTAL SCH (09:00)
[2018-07-13] MEDS: Polyethylene Glycol 3350 17 GM Packet PO SCH ×2 (09:00→21:21)
[2018-07-13] MEDS: Bisacodyl 10 MG Supp RECTAL SCH (09:01)
[2018-07-13] MEDS: Hydrocortisone Acetate 25 MG Supp RECTAL SCH ×2 (09:02→21:21)
--- NOTE | 2018-07-13 10:40 | P.PNNP ---
Subjective Interval history: Tired today, ongoing ileus Physical Exam Vital signs: Vital Signs 07/12/18 10:48 07/12/18 11:00 07/12/18 11:04 Temperature Pulse Rate 97 H 107 H 96 H Respiratory Rate 13 12 20 Blood Pressure 130/57 L 120/56 L Pulse Oximetry 100 100 07/12/18 12:00 07/12/18 13:00 07/12/18 14:00 Temperature Pulse Rate 106 H 88 100 H Respiratory Rate 19 14 15 Blood Pressure 109/59 L 127/56 L 122/59 L Pulse Oximetry 98 100 100 07/12/18 15:00 07/12/18 15:17 07/12/18 16:00 Temperature Pulse Rate 94 H 100 H 99 H Respiratory Rate 13 18 17 Blood Pressure 120/55 L Pulse Oximetry 98 100 07/12/18 16:01 07/12/18 17:00 07/12/18 17:01 Temperature Pulse Rate 96 H 97 H 109 H Respiratory Rate 20 17 15 Blood Pressure 138/59 L 118/58 L Pulse Oximetry 100 98 100 07/12/18 18:00 07/12/18 19:00 07/12/18 19:17 Temperature Pulse Rate 100 H 96 H 94 H Respiratory Rate 20 13 13 Blood Pressure 104/61 Pulse Oximetry 99 07/12/18 20:00 07/12/18 20:26 07/12/18 22:00 Temperature 98.3 F Pulse Rate 100 H 100 H 90 Respiratory Rate 14 24 Blood Pressure 104/61 Pulse Oximetry 100 98 07/12/18 23:36 07/13/18 00:00 07/13/18 02:00 Temperature 98.3 F Pulse Rate 101 H 98 H 119 H Respiratory Rate 18 15 Blood Pressure 101/59 L Pulse Oximetry 100 07/13/18 03:51 07/13/18 04:00 07/13/18 05:47 Temperature 98.2 F Pulse Rate 105 H 106 H 95 H Respiratory Rate 20 16 Blood Pressure 105/80 Pulse Oximetry 100 07/13/18 07:38 Temperature Pulse Rate 102 H Respiratory Rate 18 Blood Pressure Pulse Oximetry 96 Intake & Output 07/12/18 07/13/18 07/13/18 18:59 06:59 18:59 Intake Total 185 / 185 400 / 400 Output Total 750 / 750 1335 / 1335 Balance -565 / -565 -935 / -935 Weight 88 kg Intake: IV 400 / 400 Flagyl 500 MG Inj 100 ML @ 100 300 / 300 mls/hr IV.SIG Q8H [facility]OL[facility] Rx#: [id number] Oral 185 / 185 0 / 0 Tube Feeding 0 / 0 Output: Urine 975 / 975 Stool 60 / 60 Urine Amount (Catheter) 750 / 750 Indwelling Urethral Catheter 750 / 750 Gastric Drainage 300 / 300 Right Nare Nasogastric Tube 300 / 300 Other: Date of Last Bowel Movement 07/11/18 07/12/18 # Bowel Movements 3 # Incontinent Bowel Movements 3 - Constitutional no acute distress - Routine HEENT Exam Head: Present: normocephalic Eye: Present: EOMI ENT: Present: mucous membranes moist - Routine Neck Exam Present: supple - Routine Respiratory Exam Present: decreased breath sounds - Routine Cardiovascular Exam Present: RRR - Routine Abdominal Exam Present: soft - Routine Extremities Exam Present: edema - Routine Skin Exam Present: intact - Routine Neurological Exam Present: alert - Detailed Neurological Exam: Coma Scale Eye Opening: Spontaneous - Routine Psychiatric Exam Present: normal affect - Urinary Catheter Management Indwelling Urethral Catheter Cath placed during this visit: yes, but has since been removed by the nurse Reason for continuing: Other continuation reason Insertion date: 07/13/18 Insertion time: 20:00 Removal date: 07/08/18 Removal time: 11:50 Assessment and Plan - Assessment (1) Acute renal failure Code(s): N17.9 - Acute kidney failure, unspecified Status: Acute (2) Anasarca Code(s): R60.1 - Generalized edema Status: Acute (3) Abdominal distention Code(s): R14.0 - Abdominal distension (gaseous) Status: Acute (4) Ileus Code(s): K56.7 - Ileus, unspecified Status: Acute - Plan ALLYSON with non-oliguric ATN Creatinine 3 -> 3.4 yesterday. Repeat labs pending Off lasix drip now 700cc UOP/24 hours. Ongoing peripheral edema. UOP Stable, ongoing NG tube fluid losses Continue to monitor for now, not on IVFs or diuretics at this point. No need for HD at this point - continue to monitor. UOP is encouraging Continue to follow with GI and surgery for ileus Potassium replaced yesterday, continue to follow electrolytes.
[2018-07-13 11:19] LABS: Baso % (Auto) 0.2 % (0.0-2.0); Hematocrit 21.6 % (39.0-51.0); Lymph # (Auto) 0.2 th/mm3 (1.0-4.8); Mean Corpuscular HGB Conc 32.7 % (32.0-36.0); Mean Corpuscular Hemoglobin 30.6 pg (27.0-34.0); Mean Corpuscular Volume 93.5 fL (80.0-100.0); Mean Platelet Volume 10.4 fL (7.0-11.0); Mono # (Auto) 0.5 th/mm3 (0.0-0.9); Mono % (Auto) 3.1 % (0.0-8.0); Neut # (Auto) 14.6 th/mm3 (1.8-7.7); Neut % (Auto) 95.7 % (16.0-70.0); Platelet Count 62 th/mm3 (150-450); Red Blood Count 2.31 mil/mm3 (4.50-5.90); Red Cell Distribution Width 14.5 % (11.6-17.2); White Blood Count 15.3 th/mm3 (4.0-11.0)
[2018-07-13 11:46] LABS: Albumin 2.5 g/dL (3.4-5.0); Calcium 6.9 mg/dL (8.5-10.1); Carbon Dioxide 28.9 meq/L (21.0-32.0); Magnesium 1.9 mg/dL (1.5-2.5); Phosphorus 6.7 mg/dL (2.5-4.9); Total Protein 5.5 g/dL (6.4-8.2)
[2018-07-13 11:51] LABS: Potassium 2.7 meq/L (3.5-5.1)
--- NOTE | 2018-07-13 12:29 | P.PNCC ---
Subjective Subjective Remarks/Hospital Course: Mr. Curry is a 73-year-old -[place] male with past medical history significant for COPD on 3 L nasal cannula, hypertension, hyperlipidemia and anxiety who was admitted to the hospitalist service on 06/19/2018 for worsening shortness of breath due to COPD exacerbation. He was treated with IV Solu- Medrol, IV antibiotics, breathing treatments gradually improved. Patient was also complaining about dyspepsia and underwent EGD by GI yesterday. Per report the EGD was normal but patient developed worsening shortness of breath and COPD exacerbation postprocedure, possibly from aspiration after sedated. Two ABGs done yesterday showed hypercapnic respiratory failure second 1 was on BiPAP and this was improved with pH 7.3 with PCO2 of 74. Patient remained on BiPAP overnight however was noticed to be lethargic today a.m., stat ABG showed pH of 7.21 PCO2 110 PO2 88 while on BiPAP. Patient was lethargic intermittently dozing off due to CO2 narcosis. Critical care medicine was consulted and I immediately evaluated the patient. Patient had obviously failed BiPAP I proceeded with endotracheal intubation placed on mechanical ventilation. Postintubation I have ordered single dose of Solu-Medrol 125 mg x1 continue Solu -Medrol 60 every 8, discontinue ceftriaxone and start cefepime 2 g IV every 8 hours continue azithromycin. Add budesonide inhaled, placed on scheduled DuoNeb every 4 hours and as needed. 06/27: Patient was intubated yesterday for severe hypercapnic respiratory failure. Currently remains intubated sedated and intubated remains diminished bilaterally. Heavily sedated for ventilator synchrony 06/28: Urine output significantly improved with fluid resuscitation. Creat down trending now 2 from 2.3, UO >3.3 L. Remains intubated sedated. Will initiate daily sedation vacation and CPAP trials 06/29: More awake today tolerating CPAP trials intermittently follows commands but gets agitated/frustrated fast. Urine output remains excellent creatinine 1.4. However sodium increasing 158 today. 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 Due to hypoglycemia will change to quarter normal saline at 150 mL/h repeat CMP in the afternoon 06/30 Patient was extubated yesterday. Awake 07/01 Patient is lying in bed in NAD. T: 100.5 07/02: Intubated early this morning due to acute hypoxic respiratory failure. Central line placed due to hypotension. Plan for GI perform endoscopic decompression of this large bowel today. Arousable and does follow commands. Placed on argatroban 07/03: Currently, intubated with borderline blood pressure. Central line placed yesterday due to hypotension. Did not move bowels despite 1 L of fluid from colonoscopy yesterday and multiple laxatives provided. See orders for additional laxatives today. Might need neostigmine. 07/04 Patient remains intubated and sedated with Diprivan. Given Neostigmine last night. KUB this morning showed colonic ileus. Afebrile. On Argatroban. 07/05 No events overnight, sedated with Diprivan and intubated. Off Argatroban. 07/06 Patient remains intubated and sedated. Afebrile. 07/07 Patient remains intubated, s/p decompressive colonoscopy yesterday. Awake. 07/08 Patient s/p extubation yesterday. Awake and alert. 07/09 Patient is awake, alert lying in bed in NAD. Afebrile. 07/10 Patient is awake and alert, Afebrile. 07/11 Patient s/p decompressive colonoscopy yesterday. Afebrile. On Lasix drip.( UOP: 2800ml overnight). Cr: 3.0 from 2.25. 07/12 Patient is awake, alert given Neostigmine overnight. NGT to [facility], off Lasix drip. SUBJECTIVE: 07/13: Resting comfortably in bed in no acute distress. 3 bowel movements documented. Remains n.p.o. Bladder pressures around 6. Potassium being replaced. Remains anemic around 7. Objective Vital Signs / I&O: Vital Signs 07/12/18 13:00 07/12/18 14:00 07/12/18 15:00 Temperature Pulse Rate 88 100 H 94 H Respiratory Rate 14 15 13 Blood Pressure 127/56 L 122/59 L 120/55 L Pulse Oximetry 100 100 98 07/12/18 15:17 07/12/18 16:00 07/12/18 16:01 Temperature Pulse Rate 100 H 99 H 96 H Respiratory Rate 18 17 20 Blood Pressure 138/59 L Pulse Oximetry 100 100 07/12/18 17:00 07/12/18 17:01 07/12/18 18:00 Temperature Pulse Rate 97 H 109 H 100 H Respiratory Rate 17 15 20 Blood Pressure 118/58 L Pulse Oximetry 98 100 99 07/12/18 19:00 07/12/18 19:17 07/12/18 20:00 Temperature 98.3 F Pulse Rate 96 H 94 H 100 H Respiratory Rate 13 13 14 Blood Pressure 104/61 104/61 Pulse Oximetry 100 07/12/18 20:26 07/12/18 22:00 07/12/18 23:36 Temperature Pulse Rate 100 H 90 101 H Respiratory Rate 24 18 Blood Pressure Pulse Oximetry 98 07/13/18 00:00 07/13/18 02:00 07/13/18 03:51 Temperature 98.3 F Pulse Rate 98 H 119 H 105 H Respiratory Rate 15 20 Blood Pressure 101/59 L Pulse Oximetry 100 07/13/18 04:00 07/13/18 05:47 07/13/18 07:38 Temperature 98.2 F Pulse Rate 106 H 95 H 102 H Respiratory Rate 16 18 Blood Pressure 105/80 Pulse Oximetry 100 96 07/13/18 08:00 07/13/18 10:00 07/13/18 11:22 Temperature 98.2 F Pulse Rate 108 H 102 H 99 H Respiratory Rate 24 20 Blood Pressure 108/62 Pulse Oximetry 100 Intake & Output 07/12/18 07/13/18 07/13/18 18:59 06:59 18:59 Intake Total 185 / 185 400 / 400 Output Total 750 / 750 1335 / 1335 Balance -565 / -565 -935 / -935 Weight 88 kg Intake: IV 400 / 400 Flagyl 500 MG Inj 100 ML @ 100 300 / 300 mls/hr IV.SIG Q8H [facility] Rx#: [id number] Oral 185 / 185 0 / 0 Tube Feeding 0 / 0 Output: Urine 975 / 975 Stool 60 / 60 Urine Amount (Catheter) 750 / 750 Indwelling Urethral Catheter 750 / 750 Gastric Drainage 300 / 300 Right Nare Nasogastric Tube 300 / 300 Other: Date of Last Bowel Movement 07/11/18 07/12/18 07/12/18 # Bowel Movements 3 # Incontinent Bowel Movements 3 Result Diagrams: 07/13/18 10:32 07/13/18 10:32 Other Results: Microbiology 07/11/18 13:50 Blood - Peripheral Aerobic Blood Culture - Preliminary No growth in 2 days 07/11/18 13:50 Blood - Peripheral Anaerobic Blood Culture - Preliminary No growth in 2 days 07/11/18 02:48 Blood - Peripheral Aerobic Blood Culture - Preliminary No growth in 2 days 07/11/18 02:48 Blood - Peripheral Anaerobic Blood Culture - Preliminary No growth in 2 days 07/11/18 16:50 Clean Catch Urine Urine Culture - Final No growth in 48 hours 07/09/18 00:30 Stool Cryptosporidium Antigen - Final Negative - No Cryptosporicium antigen detected In selected cases of patients with a history of immunosuppression or foreign travel, a full ova and parasites examination may be desired. Contact the microbiology lab if full workup is indicated and subit another specimen for testing. 07/09/18 00:30 Stool Giardia Antigen (GERONIMO) - Final Negative - No Giardia Antigen detected In selected cases of patients with a history of immunosuppression or foreign travel, a full ova and parasites examination may be desired. Contact the microbiology lab if full workup is indicated and subit another specimen for testing. 07/02/18 05:41 Blood - Peripheral Aerobic Blood Culture - Final No growth in 5 days 07/02/18 05:41 Blood - Peripheral Anaerobic Blood Culture - Final No growth in 5 days 07/02/18 05:47 Blood - Peripheral Aerobic Blood Culture - Final No growth in 5 days 07/02/18 05:47 Blood - Peripheral Anaerobic Blood Culture - Final No growth in 5 days 07/02/18 22:00 Sputum - Endotracheal Gram Stain - Final 07/02/18 22:00 Sputum - Endotracheal Sputum Culture - Final Heavy growth normal respiratory justyn 06/26/18 10:10 Sputum - Endotracheal Gram Stain - Final 06/26/18 10:10 Sputum - Endotracheal Sputum Culture - Final Light growth normal respiratory justyn Imaging: Chest X-Ray 06/19/18 20:38 CONCLUSION: No evidence of acute cardiopulmonary disease. Abdomen Ultrasound 06/21/18 00:00 CONCLUSION: 1. No ascites is identified within the abdomen. Abdomen X-Ray 06/21/18 00:00 CONCLUSION: No acute findings. Mild constipation. Chest X-Ray 06/23/18 00:00 CONCLUSION: 1. No acute abnormality or significant interval change. Abdomen/Pelvis CT 06/24/18 00:00 CONCLUSION: 1. Benign appearing right adrenal mass. 2. No acute CT findings in the abdomen or pelvis. Chest X-Ray 06/25/18 00:00 CONCLUSION: Suspected mild atelectasis or consolidation at the medial right base. Chest X-Ray 06/26/18 00:00 CONCLUSION: 1. Endotracheal tube is appropriately positioned above the christy. 2. Nasogastric tube traverses the GE junction and is curled in the gastric lumen. 3. Lungs are clear. Abdomen X-Ray 06/26/18 09:21 CONCLUSION: 1. Nonobstructive bowel gas pattern without pneumoperitoneum. 2. Nasogastric tube is curled in the expected location of the gastric body. I believe the portions of the tube identified over the heart shadow is probably projectional as there is no evidence of a significant hiatal hernia on the most recent CT of the abdomen. Chest X-Ray 06/26/18 15:37 CONCLUSION: 1. Lungs remain clear. 2. Interval placement of a right IJ central venous catheter with the tip projecting over the central venous system. No pneumothorax. 3. Endotracheal and nasogastric tubes remain appropriately positioned. Abdomen/Bladder Ultrasound 06/28/18 00:00 CONCLUSION: 1. Echogenic kidneys characteristic of medical renal disease. No hydronephrosis. Bladder decompressed by Moreno Chest X-Ray 06/28/18 06:00 CONCLUSION: The lungs are clear. Lines and tubes stable. Chest X-Ray 06/29/18 06:00 CONCLUSION: The lungs are clear. Lines and tubes stable. Venous Doppler Study 07/01/18 00:00 CONCLUSION: 1. The study is negative for bilateral lower extremity deep venous thrombosis. Chest X-Ray 07/01/18 20:41 CONCLUSION: Negative examination. Chest CTA 07/02/18 00:00 CONCLUSION: 1. No pulmonary embolus. 2. Diffuse but basilar predominant bilateral airspace disease. 3. Endotracheal and endobronchial secretions are demonstrated. 4. Moderate emphysema. 5. Left ventricular hypertrophy. Venous Doppler Study 07/02/18 00:00 CONCLUSION: 1. Limited, no evidence for thrombosis. Chest X-Ray 07/02/18 04:04 CONCLUSION: 1. Interim intubation and nasogastric tube placement as above. 2. Mild bibasilar atelectasis has developed. Abdomen/Pelvis CT 07/02/18 04:20 CONCLUSION: Colonic distention most likely representing moderate adynamic ileus. However, distal sigmoid colon is decompressed and a sigmoid stricture is conceivable but considered less likely. Apparent mild proctitis. Clinical surveillance and follow-up CT recommended. Chest X-Ray 07/02/18 14:46 CONCLUSION: Left IJ line in good position. There is no pneumothorax. Abdomen X-Ray 07/04/18 00:01 CONCLUSION: Findings of colonic ileus Chest X-Ray 07/04/18 06:00 CONCLUSION: Cardiomegaly and findings of vascular congestion without overt failure. There has been no significant change when compared to the prior exam. Abdomen X-Ray 07/05/18 07:08 CONCLUSION: No significant interval change with persistent diffuse air-filled distention of the colon suggesting ileus. Chest X-Ray 07/07/18 07:12 CONCLUSION: Minimal bibasilar densities likely atelectasis. Abdomen X-Ray 07/07/18 07:13 CONCLUSION: Gaseous distention of multiple bowel loops has improved since previous study. Abdomen X-Ray 07/09/18 07:14 CONCLUSION: 1. Apparent interval removal of NGT. 2. Improving bowel gas pattern consistent with improving adynamic ileus. Abdomen/Pelvis CT 07/10/18 08:31 CONCLUSION: 1. There is gas and fluid distending the colon. The patient has a rectal tube in place however the rectal tube is kinked back on itself and occluded. The overall size of the colon has mildly increased when compared to previous exam. The small bowel is normal in caliber. 2. Interval development of a small left basilar effusion and atelectasis. Chest X-Ray 07/10/18 08:42 CONCLUSION: Mild patchy bilateral lung base opacity likely representing atelectasis unchanged. Small left pleural effusion now seen. Abdomen X-Ray 07/11/18 00:00 CONCLUSION: 1. Questionable NGT at the GE junction, as above. 2. Moderately improved colonic distention. Abdomen X-Ray 07/12/18 00:00 CONCLUSION: Probable generalized ileus. No abrupt caliber changes are seen. No free air. Nasogastric tube tip is in the upper stomach. No gastric distention seen. Objective Remarks: GENERAL: Patient is 73 yo lying in bed in NAD SKIN: Warm and dry. HEAD: Normocephalic. EYES: No scleral icterus. No injection or drainage. NECK: Supple, trachea midline. No JVD or lymphadenopathy. CARDIOVASCULAR:tachycardic without murmurs, gallops, or rubs. RESPIRATORY: B/l equal air entry GASTROINTESTINAL: Abdomen distended. Protuberant. hypoactive BS MUSCULOSKELETAL: 1-2+ bilateral upper and lower extremity peripheral edema. Neuro: Awake and alert Assessment and Plan - Assessment and Plan Plan: ASSESSMENT: Acute hypercapnic respiratory failure Acute COPD exacerbation Altered mental status due to CO2 narcosis Acute kidney injury/failure Hypertension Leukocytosis Hyperglycemia COPD Hypernatremia Hypopotassemia Normocytic anemia Thrombocytopenia Hyperphosphatemia Colonic ileus PLAN: NEURO: -Monitor neuro status, avoid sedatives -Awake and alert RESP: -Continue with oxygen keep sats >92% -Extubated 06/29. Reintubated 07/02 extubated 07/07 -DuoNeb every 4 hours scheduled and butyryl aerosols every 2 hours as needed -Methylprednisolone succinate 40 mg daily -Inhaled budesonide -NIPPV PRN for resp distress -07/02 CTA chest:No PE, bibasilar air space disease -07/02 Doppler US LE negative DVT -CXR 07/10: Mild patchy bilateral lung base opacity likely representing atelectasis unchanged. Small left pleural effusion CV: - Monitor HR and BP keep MAP>65mmHg -Continue with BP meds, Cardizem 60mg Q6, GI: -KUB 07/13: Stable nonobstructive colonic distention. Given Neostigmine 07/11. -Monitor IAP, Surgery is following- Dr. Oh -NGT to [facility] -s/p repeat decompressive colonoscopy 07/10 07/10: CT abd/pelvis: There is gas and fluid distending the colon. The overall size of the colon has mildly increased when compared to previous exam. The small bowel is normal in caliber. - 07/09 KUB abdomen: Improving bowel gas pattern consistent with improving adynamic ileus. -IV famotidine -Rectal tube to suction -CT abd/pelvis 07/02 :Colonic distention most likely representing moderate adynamic ileus. However, distal sigmoid colon is decompressed and a sigmoid stricture is conceivable but considered less likely -GI for decompression 07/02. On docusate sodium/senna 1 tablet twice daily, lactulose 30 cc 4 times daily, -KUB 07/04- colonic ileus, -KUB 07/05: No significant interval change with persistent diffuse air-filled distention of the colon suggesting ileus. -GI follow s/p decompressive colonoscopy 07/06 -KUB 07/07: Gaseous distention of multiple bowel loops has improved since previous study. FEN/: -Monitor renal function, I/O's, avoid nephrotoxins - Renal- Dr. Figueroa, off Lasix drip, follow up BMP ID: -Off piperacillin/tazobactam, on metronidazole, monitor for signs of infections ( Fever, WBC) -Follow up on BC and urine cx from 07/11- NGTD -07/02 BC: NGTS, sputum cx 07/02:normal resp justyn -ID is following- Dr. Brown HEME: -Monitor CBC, coags, Hep PLT is positive. ANNMARIE negative. Hematology is following. Off argatroban drip ENDO: -Electrolyte replacement per protocol -Sliding scale insulin medium scale PROPH: -Bilateral lower extremity SCDs. PPI , -Doppler US LE negative DVT 07/02 LINES: -Utilize peripheral IVs, Level 2 follow-up. No critical care time involved. \ Discussed with Evita [phone]. Care plan discussed and all questions answered. Code Status: Full code
--- NOTE | 2018-07-13 12:35 | P.PNGI ---
Subjective Interval history: Appears more lethargic today but does open eyes to voice Denies abdominal pain but mild increase in abdominal girth over the past 24 hours related to chronic ileus current hemoglobin 7.7+ hit per lab heart rate 98 Physical Exam Vital signs: Vital Signs 07/12/18 13:00 07/12/18 14:00 07/12/18 15:00 Temperature Pulse Rate 88 100 H 94 H Respiratory Rate 14 15 13 Blood Pressure 127/56 L 122/59 L 120/55 L Pulse Oximetry 100 100 98 07/12/18 15:17 07/12/18 16:00 07/12/18 16:01 Temperature Pulse Rate 100 H 99 H 96 H Respiratory Rate 18 17 20 Blood Pressure 138/59 L Pulse Oximetry 100 100 07/12/18 17:00 07/12/18 17:01 07/12/18 18:00 Temperature Pulse Rate 97 H 109 H 100 H Respiratory Rate 17 15 20 Blood Pressure 118/58 L Pulse Oximetry 98 100 99 07/12/18 19:00 07/12/18 19:17 07/12/18 20:00 Temperature 98.3 F Pulse Rate 96 H 94 H 100 H Respiratory Rate 13 13 14 Blood Pressure 104/61 104/61 Pulse Oximetry 100 07/12/18 20:26 07/12/18 22:00 07/12/18 23:36 Temperature Pulse Rate 100 H 90 101 H Respiratory Rate 24 18 Blood Pressure Pulse Oximetry 98 07/13/18 00:00 07/13/18 02:00 07/13/18 03:51 Temperature 98.3 F Pulse Rate 98 H 119 H 105 H Respiratory Rate 15 20 Blood Pressure 101/59 L Pulse Oximetry 100 07/13/18 04:00 07/13/18 05:47 07/13/18 07:38 Temperature 98.2 F Pulse Rate 106 H 95 H 102 H Respiratory Rate 16 18 Blood Pressure 105/80 Pulse Oximetry 100 96 07/13/18 08:00 07/13/18 10:00 07/13/18 11:22 Temperature 98.2 F Pulse Rate 108 H 102 H 99 H Respiratory Rate 24 20 Blood Pressure 108/62 Pulse Oximetry 100 Intake & Output 07/12/18 07/13/18 07/13/18 18:59 06:59 18:59 Intake Total 185 / 185 400 / 400 Output Total 750 / 750 1335 / 1335 Balance -565 / -565 -935 / -935 Weight 88 kg Intake: IV 400 / 400 Flagyl 500 MG Inj 100 ML @ 100 300 / 300 mls/hr IV.SIG Q8H [facility] Rx#: [id number] Oral 185 / 185 0 / 0 Tube Feeding 0 / 0 Output: Urine 975 / 975 Stool 60 / 60 Urine Amount (Catheter) 750 / 750 Indwelling Urethral Catheter 750 / 750 Gastric Drainage 300 / 300 Right Nare Nasogastric Tube 300 / 300 Other: Date of Last Bowel Movement 07/11/18 07/12/18 07/12/18 # Bowel Movements 3 # Incontinent Bowel Movements 3 - Constitutional moderate distress, average body habitus, chronically ill appearing, disheveled, somnolent (Mild lethargy) - Routine HEENT Exam Head: Present: normocephalic (NG tube) ENT: Present: mucous membranes dry - Routine Respiratory Exam Present: decreased breath sounds, diminished air movement (Probably secondary to abdominal distention) - Routine Cardiovascular Exam Present: S1, S2 (Heart rate 98) - Routine Abdominal Exam Present: distended (Moderate, no abdominal pain minimal bowel sounds) - Urinary Catheter Management Indwelling Urethral Catheter Cath placed during this visit: yes, but has since been removed by the nurse Reason for continuing: Other continuation reason Insertion date: 07/13/18 Insertion time: 20:00 Removal date: 07/08/18 Removal time: 11:50 Results - Labs CBC & Chem 7: 07/13/18 10:32 07/13/18 10:32 Laboratory Results - last 24 hr 07/12/18 07/12/18 07/12/18 10:09 12:31 17:02 CBC w Diff Cancelled WBC Cancelled Corrected WBC Cancelled RBC Cancelled Hgb Cancelled Hct Cancelled MCV Cancelled MCH Cancelled MCHC Cancelled RDW Cancelled Plt Count Cancelled MPV Cancelled Prelim Diff (Auto) Cancelled Immature Gran % (Auto) Cancelled Neut % (Auto) Cancelled Lymph % (Auto) Cancelled [place] % (Auto) Cancelled Eos % (Auto) Cancelled Baso % (Auto) Cancelled Immature Gran # (Auto) Cancelled Neut # (Auto) Cancelled Lymph # (Auto) Cancelled [place] # (Auto) Cancelled Eos # (Auto) Cancelled Baso # (Auto) Cancelled WBC Differential Cancelled Diff Scan Cancelled Seg Neuts % (Manual) Cancelled Band Neuts % (Manual) Cancelled Lymphocytes % (Manual) Cancelled Atypical Lymphs % (Man) Cancelled Monocytes % (Manual) Cancelled Eosinophils % (Manual) Cancelled Basophils % (Manual) Cancelled Metamyelocytes % (Man) Cancelled Myelocytes % (Man) Cancelled Promyelocytes % (Man) Cancelled Blast Cells % (Manual) Cancelled Plasma Cell % (Manual) Cancelled Other Cells % Cancelled Abs Neuts (Manual) Cancelled Nucleated RBCs/100 WBC Cancelled Differential Comment Cancelled Hypersegmented Neuts Cancelled Smudge Cells Cancelled Toxic Granulation Cancelled Toxic Vacuolation Cancelled Dohle Bodies Cancelled Platelet Estimate Cancelled Platelet Morphology Cancelled RBC Morphology Cancelled Dimorphic RBCs Cancelled Polychromasia Cancelled Basophilic Stippling Cancelled Spherocytes Cancelled Pappenheimer Bodies Cancelled Sickle Cells Cancelled Target Cells Cancelled Tear Drop Cells Cancelled Ovalocytes Cancelled Stomatocytes Cancelled Helmet Cells Cancelled [place] Bodies Cancelled Shankar Cells Cancelled Acanthocytes (Spur) Cancelled Rouleaux Cancelled Keratocytes Cancelled Hematology Comments Cancelled Sodium Potassium Chloride Carbon Dioxide Anion Gap BUN Creatinine Estimated GFR POC Glucose 149 H 194 H Random Glucose Calcium Prot Corrected Calcium Phosphorus Magnesium Total Bilirubin AST ALT Alkaline Phosphatase Total Protein Albumin 07/12/18 07/13/18 07/13/18 20:10 00:22 04:07 CBC w Diff WBC Corrected WBC RBC Hgb Hct MCV MCH MCHC RDW Plt Count MPV Prelim Diff (Auto) Immature Gran % (Auto) Neut % (Auto) Lymph % (Auto) Bled[place] % (Auto) Eos % (Auto) Baso % (Auto) Immature Gran # (Auto) Neut # (Auto) Lymph # (Auto) [place] # (Auto) Eos # (Auto) Baso # (Auto) WBC Differential Diff Scan Seg Neuts % (Manual) Band Neuts % (Manual) Lymphocytes % (Manual) Atypical Lymphs % (Man) Monocytes % (Manual) Eosinophils % (Manual) Basophils % (Manual) Metamyelocytes % (Man) Myelocytes % (Man) Promyelocytes % (Man) Blast Cells % (Manual) Plasma Cell % (Manual) Other Cells % Abs Neuts (Manual) Nucleated RBCs/100 WBC Differential Comment Hypersegmented Neuts Smudge Cells Toxic Granulation Toxic Vacuolation Dohle Bodies Platelet Estimate Platelet Morphology RBC Morphology Dimorphic RBCs Polychromasia Basophilic Stippling Spherocytes Pappenheimer Bodies Sickle Cells Target Cells Tear Drop Cells Ovalocytes Stomatocytes Helmet Cells [place]son[place] Bodies [place] Cells Acanthocytes (Spur) Rouleaux Keratocytes Hematology Comments Sodium Potassium Chloride Carbon Dioxide Anion Gap BUN Creatinine Estimated GFR POC Glucose 190 H 162 H 136 H Random Glucose Calcium Prot Corrected Calcium Phosphorus Magnesium Total Bilirubin AST ALT Alkaline Phosphatase Total Protein Albumin 07/13/18 07/13/18 07/13/18 08:04 10:32 10:32 CBC w Diff WBC 15.3 H Corrected WBC RBC 2.31 L Hgb 7.0 L Hct 21.6 L MCV 93.5 MCH 30.6 MCHC 32.7 RDW 14.5 Plt Count 62 L MPV 10.4 Prelim Diff (Auto) Slide review pending Immature Gran % (Auto) Neut % (Auto) 95.7 H Lymph % (Auto) 1.0 L Bledso[place] % (Auto) 3.1 Eos % (Auto) 0.0 Baso % (Auto) 0.2 Immature Gran # (Auto) Neut # (Auto) 14.6 H Lymph # (Auto) 0.2 L [place] # (Auto) 0.5 Eos # (Auto) 0.0 Baso # (Auto) 0.0 WBC Differential . Diff Scan Auto diff confirmed Seg Neuts % (Manual) Band Neuts % (Manual) Lymphocytes % (Manual) Atypical Lymphs % (Man) Monocytes % (Manual) Eosinophils % (Manual) Basophils % (Manual) Metamyelocytes % (Man) Myelocytes % (Man) Promyelocytes % (Man) Blast Cells % (Manual) Plasma Cell % (Manual) Other Cells % Abs Neuts (Manual) Nucleated RBCs/100 WBC Differential Comment . Hypersegmented Neuts Smudge Cells Toxic Granulation Toxic Vacuolation Dohle Bodies Platelet Estimate Platelet Morphology RBC Morphology Dimorphic RBCs Polychromasia Basophilic Stippling Spherocytes Pappenheimer Bodies Sickle Cells Target Cells Tear Drop Cells Ovalocytes Stomatocytes Helmet Cells [place] Bodies [place] Cells Acanthocytes (Spur) Rouleaux Keratocytes Hematology Comments Sodium 148 H Potassium 2.7 L* Chloride 103 Carbon Dioxide 28.9 Anion Gap 16 H BUN 75 H Creatinine 4.26 H Estimated GFR 17 L POC Glucose 133 H Random Glucose 151 H Calcium 6.9 L* Prot Corrected Calcium 7.7 L Phosphorus 6.7 H Magnesium 1.9 Total Bilirubin 0.6 AST 44 H ALT 52 Alkaline Phosphatase 66 Total Protein 5.5 L Albumin 2.5 L Microbiology 07/11/18 13:50 Blood - Peripheral Aerobic Blood Culture - Preliminary No growth in 2 days 07/11/18 13:50 Blood - Peripheral Anaerobic Blood Culture - Preliminary No growth in 2 days 07/11/18 02:48 Blood - Peripheral Aerobic Blood Culture - Preliminary No growth in 2 days 07/11/18 02:48 Blood - Peripheral Anaerobic Blood Culture - Preliminary No growth in 2 days 07/11/18 16:50 Clean Catch Urine Urine Culture - Final No growth in 48 hours - Imaging Impressions Abdomen X-Ray 07/12/18 00:00 CONCLUSION: Probable generalized ileus. No abrupt caliber changes are seen. No free air. Nasogastric tube tip is in the upper stomach. No gastric distention seen. Assessment and Plan - Plan Assessment Abdominal distention/ileus Pt with long standing history of constipation and is on daily narcotics at home, according to his significant other takes Aloe Vera for constipation but this has not been working Previously seen by our service earlier in this admission status post diagnostic colonoscopy on (07/02) The sigmoid colon was clear then there was significant amount of stool in the descending colon, transverse colon, and part of the sigmoid colon consistent with stool impaction. Attempted to disimpact the patient with fluid as much as possible. Rectum exam was normal. S/P decompressive colonoscopy (07/06) stool in cecum, large amount of water flush, stool section. Internal Hemorrhoids. Neostigmine given on 07/04 and 07/06 Relistor given on 07/02 and 07/03 Pt has also been on on Lactulose QID and Miralax daily CT abd/pelvis WO IV contrast (07/10) There is gas and fluid distending the colon. The patient has a rectal tube in place however the rectal tube is kinked back on itself and occluded. The overall size of the colon has mildly increased when compared to previous exam. The small bowel is normal in caliber. Decompressive colonoscopy (07/10) Ischemic ulcer cecum. Some semisolid stool suctioned. Marked decompression Rectal ulcer from rectal tube. Internal and external hemorrhoids (07/11) Pts abdomen some less distention and pain today. Still with NG to LIWS. Rectal tube discontinued yesterday. According to RN multiple loose stools today. Neostigmine has not been administered yet, waiting to receive it from pharmacy. 07/12/2018 last hemoglobin 7.4, WBC count 18.2, heart rate 104, abdomen continues to have mild to moderate distention and taut, mild improvement of abdominal bloating. Notes status post decompressive colonoscopy on 07/10, rectal tube. Patient input from GS. Who is continuing to monitor labs and any resolution to patient's chronic ileus. Mild gradual improvement , continues to require intensive care setting 07/13/2018 patient appears more lethargic today and gradual decline in hemoglobin noted was 7.4 now 7 mucous membranes pale. Being followed per general surgery for his chronic ileus, conservative medical management but may want to consider decompressive cecostomy. Multiple colonoscopies performed but no long-term improvement noted. Consider palliative care consult to review long -term and short-term goals with patient if able and POA/family. Measuring loose liquid stool, only 60 cc output noted even with fleets enema. KUB performed on 07/12/2018 shows chronic ileus no acute changes Plan NG tube, diet n.p.o. If patient shows no improvement consider decompressive cecostomy per general surgery Fleets enemas daily Monitor labs and correct electrolytes, transfuse as needed Consider weaning off narcotics completely Pepcid, Protonix IV twice BID, steroids continue for now Reglan, Relistor, Mylicon and MiraLAX Intake and output Consider palliative care consult Patient was seen per myself and Dr. Nicholas , note was written on his behalf
[2018-07-13] MEDS: Potassium Chlor 10 mEq Premix 10 MEQ/100 ML PIGGYBACK IV.SIG SCH ×2 (12:56→13:37)
--- NOTE | 2018-07-13 13:17 | P.PNGS ---
Subjective Interval history: Denies abdominal pain. WBC improved to 15. Cr worsened again slightly. He had a bm yesterday. NG with gastric clear output. Physical Exam Vital signs: Vital Signs 07/12/18 14:00 07/12/18 15:00 07/12/18 15:17 Temperature Pulse Rate 100 H 94 H 100 H Respiratory Rate 15 13 18 Blood Pressure 122/59 L 120/55 L Pulse Oximetry 100 98 07/12/18 16:00 07/12/18 16:01 07/12/18 17:00 Temperature Pulse Rate 99 H 96 H 97 H Respiratory Rate 17 20 17 Blood Pressure 138/59 L Pulse Oximetry 100 100 98 07/12/18 17:01 07/12/18 18:00 07/12/18 19:00 Temperature Pulse Rate 109 H 100 H 96 H Respiratory Rate 15 20 13 Blood Pressure 118/58 L Pulse Oximetry 100 99 07/12/18 19:17 07/12/18 20:00 07/12/18 20:26 Temperature 98.3 F Pulse Rate 94 H 100 H 100 H Respiratory Rate 13 14 24 Blood Pressure 104/61 104/61 Pulse Oximetry 100 98 07/12/18 22:00 07/12/18 23:36 07/13/18 00:00 Temperature 98.3 F Pulse Rate 90 101 H 98 H Respiratory Rate 18 15 Blood Pressure 101/59 L Pulse Oximetry 100 07/13/18 02:00 07/13/18 03:51 07/13/18 04:00 Temperature 98.2 F Pulse Rate 119 H 105 H 106 H Respiratory Rate 20 16 Blood Pressure 105/80 Pulse Oximetry 100 07/13/18 05:47 07/13/18 07:38 07/13/18 08:00 Temperature 98.2 F Pulse Rate 95 H 102 H 108 H Respiratory Rate 18 24 Blood Pressure 108/62 Pulse Oximetry 96 100 07/13/18 10:00 07/13/18 11:22 Temperature Pulse Rate 102 H 99 H Respiratory Rate 20 Blood Pressure Pulse Oximetry Intake & Output 07/12/18 07/13/18 07/13/18 18:59 06:59 18:59 Intake Total 185 / 185 400 / 400 Output Total 750 / 750 1335 / 1335 Balance -565 / -565 -935 / -935 Weight 88 kg Intake: IV 400 / 400 Flagyl 500 MG Inj 100 ML @ 100 300 / 300 mls/hr IV.SIG Q8H [facility] Rx#: [id number] Oral 185 / 185 0 / 0 Tube Feeding 0 / 0 Output: Urine 975 / 975 Stool 60 / 60 Urine Amount (Catheter) 750 / 750 Indwelling Urethral Catheter 750 / 750 Gastric Drainage 300 / 300 Right Nare Nasogastric Tube 300 / 300 Other: Date of Last Bowel Movement 07/11/18 07/12/18 07/12/18 # Bowel Movements 3 # Incontinent Bowel Movements 3 Narrative: NAD Abd: soft, distended, ntd. - Urinary Catheter Management Indwelling Urethral Catheter Cath placed during this visit: yes, but has since been removed by the nurse Reason for continuing: Other continuation reason Insertion date: 07/13/18 Insertion time: 20:00 Removal date: 07/08/18 Removal time: 11:50 Results - Labs 07/13/18 10:32 07/13/18 10:32 Laboratory Results - last 24 hr 07/12/18 07/12/18 07/12/18 10:09 17:02 20:10 CBC w Diff Cancelled WBC Cancelled Corrected WBC Cancelled RBC Cancelled Hgb Cancelled Hct Cancelled MCV Cancelled MCH Cancelled MCHC Cancelled RDW Cancelled Plt Count Cancelled MPV Cancelled Prelim Diff (Auto) Cancelled Immature Gran % (Auto) Cancelled Neut % (Auto) Cancelled Lymph % (Auto) Cancelled [place] % (Auto) Cancelled Eos % (Auto) Cancelled Baso % (Auto) Cancelled Immature Gran # (Auto) Cancelled Neut # (Auto) Cancelled Lymph # (Auto) Cancelled [place] # (Auto) Cancelled Eos # (Auto) Cancelled Baso # (Auto) Cancelled WBC Differential Cancelled Diff Scan Cancelled Seg Neuts % (Manual) Cancelled Band Neuts % (Manual) Cancelled Lymphocytes % (Manual) Cancelled Atypical Lymphs % (Man) Cancelled Monocytes % (Manual) Cancelled Eosinophils % (Manual) Cancelled Basophils % (Manual) Cancelled Metamyelocytes % (Man) Cancelled Myelocytes % (Man) Cancelled Promyelocytes % (Man) Cancelled Blast Cells % (Manual) Cancelled Plasma Cell % (Manual) Cancelled Other Cells % Cancelled Abs Neuts (Manual) Cancelled Nucleated RBCs/100 WBC Cancelled Differential Comment Cancelled Hypersegmented Neuts Cancelled Smudge Cells Cancelled Toxic Granulation Cancelled Toxic Vacuolation Cancelled Dohle Bodies Cancelled Platelet Estimate Cancelled Platelet Morphology Cancelled RBC Morphology Cancelled Dimorphic RBCs Cancelled Polychromasia Cancelled Basophilic Stippling Cancelled Spherocytes Cancelled Pappenheimer Bodies Cancelled Sickle Cells Cancelled Target Cells Cancelled Tear Drop Cells Cancelled Ovalocytes Cancelled Stomatocytes Cancelled Helmet Cells Cancelled [place] Bodies Cancelled [place] Cells Cancelled Acanthocytes (Spur) Cancelled Rouleaux Cancelled Keratocytes Cancelled Hematology Comments Cancelled Sodium Potassium Chloride Carbon Dioxide Anion Gap BUN Creatinine Estimated GFR POC Glucose 194 H 190 H Random Glucose Calcium Prot Corrected Calcium Phosphorus Magnesium Total Bilirubin AST ALT Alkaline Phosphatase Total Protein Albumin 07/13/18 07/13/18 07/13/18 00:22 04:07 08:04 CBC w Diff WBC Corrected WBC RBC Hgb Hct MCV MCH MCHC RDW Plt Count MPV Prelim Diff (Auto) Immature Gran % (Auto) Neut % (Auto) Lymph % (Auto) [place] % (Auto) Eos % (Auto) Baso % (Auto) Immature Gran # (Auto) Neut # (Auto) Lymph # (Auto) [place] # (Auto) Eos # (Auto) Baso # (Auto) WBC Differential Diff Scan Seg Neuts % (Manual) Band Neuts % (Manual) Lymphocytes % (Manual) Atypical Lymphs % (Man) Monocytes % (Manual) Eosinophils % (Manual) Basophils % (Manual) Metamyelocytes % (Man) Myelocytes % (Man) Promyelocytes % (Man) Blast Cells % (Manual) Plasma Cell % (Manual) Other Cells % Abs Neuts (Manual) Nucleated RBCs/100 WBC Differential Comment Hypersegmented Neuts Smudge Cells Toxic Granulation Toxic Vacuolation Dohle Bodies Platelet Estimate Platelet Morphology RBC Morphology Dimorphic RBCs Polychromasia Basophilic Stippling Spherocytes Pappenheimer Bodies Sickle Cells Target Cells Tear Drop Cells Ovalocytes Stomatocytes Helmet Cells [place] Bodies [place] Cells Acanthocytes (Spur) Rouleaux Keratocytes Hematology Comments Sodium Potassium Chloride Carbon Dioxide Anion Gap BUN Creatinine Estimated GFR POC Glucose 162 H 136 H 133 H Random Glucose Calcium Prot Corrected Calcium Phosphorus Magnesium Total Bilirubin AST ALT Alkaline Phosphatase Total Protein Albumin 07/13/18 07/13/18 10:32 10:32 CBC w Diff WBC 15.3 H Corrected WBC RBC 2.31 L Hgb 7.0 L Hct 21.6 L MCV 93.5 MCH 30.6 MCHC 32.7 RDW 14.5 Plt Count 62 L MPV 10.4 Prelim Diff (Auto) Slide review pending Immature Gran % (Auto) Neut % (Auto) 95.7 H Lymph % (Auto) 1.0 L [place] % (Auto) 3.1 Eos % (Auto) 0.0 Baso % (Auto) 0.2 Immature Gran # (Auto) Neut # (Auto) 14.6 H Lymph # (Auto) 0.2 L [place] # (Auto) 0.5 Eos # (Auto) 0.0 Baso # (Auto) 0.0 WBC Differential . Diff Scan Auto diff confirmed Seg Neuts % (Manual) Band Neuts % (Manual) Lymphocytes % (Manual) Atypical Lymphs % (Man) Monocytes % (Manual) Eosinophils % (Manual) Basophils % (Manual) Metamyelocytes % (Man) Myelocytes % (Man) Promyelocytes % (Man) Blast Cells % (Manual) Plasma Cell % (Manual) Other Cells % Abs Neuts (Manual) Nucleated RBCs/100 WBC Differential Comment . Hypersegmented Neuts Smudge Cells Toxic Granulation Toxic Vacuolation Dohle Bodies Platelet Estimate Platelet Morphology RBC Morphology Dimorphic RBCs Polychromasia Basophilic Stippling Spherocytes Pappenheimer Bodies Sickle Cells Target Cells Tear Drop Cells Ovalocytes Stomatocytes Helmet Cells [place] Bodies Shankar Cells Acanthocytes (Spur) Rouleaux Keratocytes Hematology Comments Sodium 148 H Potassium 2.7 L* Chloride 103 Carbon Dioxide 28.9 Anion Gap 16 H BUN 75 H Creatinine 4.26 H Estimated GFR 17 L POC Glucose Random Glucose 151 H Calcium 6.9 L* Prot Corrected Calcium 7.7 L Phosphorus 6.7 H Magnesium 1.9 Total Bilirubin 0.6 AST 44 H ALT 52 Alkaline Phosphatase 66 Total Protein 5.5 L Albumin 2.5 L - Imaging Imaging: ITS Impressions Abdomen Ultrasound 06/21/18 00:00 CONCLUSION: 1. No ascites is identified within the abdomen. Abdomen/Bladder Ultrasound 06/28/18 00:00 CONCLUSION: 1. Echogenic kidneys characteristic of medical renal disease. No hydronephrosis. Bladder decompressed by [place] Chest CTA 07/02/18 00:00 CONCLUSION: 1. No pulmonary embolus. 2. Diffuse but basilar predominant bilateral airspace disease. 3. Endotracheal and endobronchial secretions are demonstrated. 4. Moderate emphysema. 5. Left ventricular hypertrophy. Venous Doppler Study 07/02/18 00:00 CONCLUSION: 1. Limited, no evidence for thrombosis. Abdomen/Pelvis CT 07/10/18 08:31 CONCLUSION: 1. There is gas and fluid distending the colon. The patient has a rectal tube in place however the rectal tube is kinked back on itself and occluded. The overall size of the colon has mildly increased when compared to previous exam. The small bowel is normal in caliber. 2. Interval development of a small left basilar effusion and atelectasis. Chest X-Ray 07/10/18 08:42 CONCLUSION: Mild patchy bilateral lung base opacity likely representing atelectasis unchanged. Small left pleural effusion now seen. Abdomen X-Ray 07/12/18 00:00 CONCLUSION: Probable generalized ileus. No abrupt caliber changes are seen. No free air. Nasogastric tube tip is in the upper stomach. No gastric distention seen. Assessment and Plan - Assessment (1) Paralytic ileus of large intestine Code(s): K56.0 - Paralytic ileus Status: Acute - Plan Had spontaneous bm. KUB yesterday showed diffuse ileus. NG output gastric and not large amt. Try enteral feeding to 20cc/h if tolerated.
[2018-07-13] MEDS: KCL 20 mEq/NACL 0.45% Inj 1,000 ML IV.SIG SCH (13:37)
[2018-07-14] MEDS: KCL 20 mEq/NACL 0.45% Inj 1,000 ML IV.SIG SCH ×2 (00:34→16:07)
[2018-07-14] MEDS: Oral Hygiene Kit OROPHARYNG SCH ×5 (00:35→23:41)
[2018-07-14] MEDS: Insulin NovoLIN Regular Correctional Sugar Inj SQ SCH ×7 (00:35→23:40)
[2018-07-14] MEDS: Artificial Tears Opth Drops 15 ML Bottle EACH EYE SCH ×4 (00:36→23:41)
[2018-07-14] MEDS: Pantoprazole Inj 40 MG Vial IV.PUSH SCH ×2 (02:30→15:54)
--- NOTE | 2018-07-14 03:47 | XR ---
EXAM DATE: 07/14/2018 3:28 AM EST AGE/SEX: 73 years / Male INDICATIONS: Abdominal distention. CLINICAL DATA: This is the patient's subsequent encounter. Patient reports that signs and symptoms h ave been present for 2 weeks and indicates a pain score of 0/10. MEDICAL/SURGICAL HISTORY: Hypertension. Chronic obstructive pulmonary disease. None. COMPARISON: [facility] – [place], ABDOMEN 1V KUB, 07/12/2018. . FINDINGS: 2 AP supine views of the abdomen. Nasogastric tube is in place with the tip at the gastroesophageal junction. Distended air-filled transverse colon measuring 10 cm. Distended air-filled loops of bowel in the midabdomen again seen. CONCLUSION: Distended air-filled colon. Ileus is the most likely etiology for this pattern. Electronically signed by: Ernesto Figueredo MD 07/14/2018 3:45 AM EST
--- NOTE | 2018-07-14 07:20 | P.PNCC ---
Subjective Subjective Remarks/Hospital Course: Mr. Curry is a 73-year-old -[place] male with past medical history significant for COPD on 3 L nasal cannula, hypertension, hyperlipidemia and anxiety who was admitted to the hospitalist service on 06/19/2018 for worsening shortness of breath due to COPD exacerbation. He was treated with IV Solu- Medrol, IV antibiotics, breathing treatments gradually improved. Patient was also complaining about dyspepsia and underwent EGD by GI yesterday. Per report the EGD was normal but patient developed worsening shortness of breath and COPD exacerbation postprocedure, possibly from aspiration after sedated. Two ABGs done yesterday showed hypercapnic respiratory failure second 1 was on BiPAP and this was improved with pH 7.3 with PCO2 of 74. Patient remained on BiPAP overnight however was noticed to be lethargic today a.m., stat ABG showed pH of 7.21 PCO2 110 PO2 88 while on BiPAP. Patient was lethargic intermittently dozing off due to CO2 narcosis. Critical care medicine was consulted and I immediately evaluated the patient. Patient had obviously failed BiPAP I proceeded with endotracheal intubation placed on mechanical ventilation. Postintubation I have ordered single dose of Solu-Medrol 125 mg x1 continue Solu -Medrol 60 every 8, discontinue ceftriaxone and start cefepime 2 g IV every 8 hours continue azithromycin. Add budesonide inhaled, placed on scheduled DuoNeb every 4 hours and as needed. 06/27: Patient was intubated yesterday for severe hypercapnic respiratory failure. Currently remains intubated sedated and intubated remains diminished bilaterally. Heavily sedated for ventilator synchrony 06/28: Urine output significantly improved with fluid resuscitation. Creat down trending now 2 from 2.3, UO >3.3 L. Remains intubated sedated. Will initiate daily sedation vacation and CPAP trials 06/29: More awake today tolerating CPAP trials intermittently follows commands but gets agitated/frustrated fast. Urine output remains excellent creatinine 1.4. However sodium increasing 158 today. 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 Due to hypoglycemia will change to quarter normal saline at 150 mL/h repeat CMP in the afternoon 06/30 Patient was extubated yesterday. Awake 07/01 Patient is lying in bed in NAD. T: 100.5 07/02: Intubated early this morning due to acute hypoxic respiratory failure. Central line placed due to hypotension. Plan for GI perform endoscopic decompression of this large bowel today. Arousable and does follow commands. Placed on argatroban 07/03: Currently, intubated with borderline blood pressure. Central line placed yesterday due to hypotension. Did not move bowels despite 1 L of fluid from colonoscopy yesterday and multiple laxatives provided. See orders for additional laxatives today. Might need neostigmine. 07/04 Patient remains intubated and sedated with Diprivan. Given Neostigmine last night. KUB this morning showed colonic ileus. Afebrile. On Argatroban. 07/05 No events overnight, sedated with Diprivan and intubated. Off Argatroban. 07/06 Patient remains intubated and sedated. Afebrile. 07/07 Patient remains intubated, s/p decompressive colonoscopy yesterday. Awake. 07/08 Patient s/p extubation yesterday. Awake and alert. 07/09 Patient is awake, alert lying in bed in NAD. Afebrile. 07/10 Patient is awake and alert, Afebrile. 07/11 Patient s/p decompressive colonoscopy yesterday. Afebrile. On Lasix drip.( UOP: 2800ml overnight). Cr: 3.0 from 2.25. 07/12 Patient is awake, alert given Neostigmine overnight. NGT to LIWS, off Lasix drip. SUBJECTIVE: 07/13: Resting comfortably in bed in no acute distress. 3 bowel movements documented. Remains n.p.o. Bladder pressures around 6. Potassium being replaced. Remains anemic around 7. 07/14 Patient is lying in bed in NAD. Afebrile. Objective Vital Signs / I&O: Vital Signs 07/13/18 07:38 07/13/18 08:00 07/13/18 10:00 Temperature 98.2 F Pulse Rate 102 H 108 H 102 H Respiratory Rate 18 24 Blood Pressure 108/62 Pulse Oximetry 96 100 07/13/18 11:22 07/13/18 12:00 07/13/18 14:00 Temperature 98.6 F Pulse Rate 99 H 93 H 96 H Respiratory Rate 20 17 Blood Pressure 146/62 H Pulse Oximetry 99 07/13/18 15:20 07/13/18 15:56 07/13/18 16:00 Temperature 97.6 F 97.6 F Pulse Rate 97 H 92 H 93 H Respiratory Rate 20 12 12 Blood Pressure 124/60 117/56 L Pulse Oximetry 100 100 07/13/18 16:18 07/13/18 18:00 07/13/18 18:35 Temperature Pulse Rate 94 H 105 H 104 H Respiratory Rate 14 15 Blood Pressure 115/58 L 95/64 L Pulse Oximetry 100 98 07/13/18 20:00 07/13/18 20:01 07/13/18 22:00 Temperature 98.5 F Pulse Rate 93 H 93 H 104 H Respiratory Rate 14 20 Blood Pressure 134/66 Pulse Oximetry 100 07/13/18 23:23 07/14/18 00:00 07/14/18 02:00 Temperature 98.4 F Pulse Rate 108 H 106 H 100 H Respiratory Rate 24 24 Blood Pressure 138/61 Pulse Oximetry 96 07/14/18 04:00 07/14/18 06:00 Temperature 97.6 F Pulse Rate 98 H 98 H Respiratory Rate 16 Blood Pressure 138/74 Pulse Oximetry 99 Intake & Output 07/13/18 07/14/18 07/14/18 18:59 06:59 18:59 Intake Total 1442 / 1442 1210 / 1210 Output Total 350 / 350 700 / 700 Balance 1092 / 1092 510 / 510 Weight 90 kg Intake: IV 300 / 300 1100 / 1100 Potassium Chlor 20 mEq/NACL 0. 1000 / 1000 45% Inj 1,000 ML @ 100 mls/hr IV.SIG .Q10H WOLF Rx#:[id number] KCl 10 mEq Premix Inj 10 meq In 200 / 200 100 ml @ 100 mls/hr IV.SIG Q1H WOLF Rx#:[id number] Flagyl 500 MG Inj 100 ML @ 100 100 / 100 100 / 100 mls/hr IV.SIG Q8H WOLF Rx#: [id number] Oral 720 / 720 0 / 0 Tube Feeding 110 / 110 Intake (Blood Product) Amt 400 / 400 Rbc As-3 Leukoreduced Unit 400 / 400 [id number] Output: Urine 350 / 350 Urine Amount (Catheter) 700 / 700 Straight 700 / 700 Other: Date of Last Bowel Movement 07/13/18 07/14/18 # Bowel Movements 3 # Incontinent Bowel Movements 1 3 Result Diagrams: 07/13/18 10:32 07/13/18 10:32 Other Results: Laboratory Results - last 12 hr 07/13/18 07/14/18 20:45 05:29 POC Glucose 172 H 107 Imaging: Abdomen Ultrasound 06/21/18 00:00 CONCLUSION: 1. No ascites is identified within the abdomen. Abdomen/Bladder Ultrasound 06/28/18 00:00 CONCLUSION: 1. Echogenic kidneys characteristic of medical renal disease. No hydronephrosis. Bladder decompressed by [facility] Chest CTA 07/02/18 00:00 CONCLUSION: 1. No pulmonary embolus. 2. Diffuse but basilar predominant bilateral airspace disease. 3. Endotracheal and endobronchial secretions are demonstrated. 4. Moderate emphysema. 5. Left ventricular hypertrophy. Venous Doppler Study 07/02/18 00:00 CONCLUSION: 1. Limited, no evidence for thrombosis. Abdomen/Pelvis CT 07/10/18 08:31 CONCLUSION: 1. There is gas and fluid distending the colon. The patient has a rectal tube in place however the rectal tube is kinked back on itself and occluded. The overall size of the colon has mildly increased when compared to previous exam. The small bowel is normal in caliber. 2. Interval development of a small left basilar effusion and atelectasis. Chest X-Ray 07/10/18 08:42 CONCLUSION: Mild patchy bilateral lung base opacity likely representing atelectasis unchanged. Small left pleural effusion now seen. Abdomen X-Ray 07/14/18 06:00 CONCLUSION: Distended air-filled colon. Ileus is the most likely etiology for this pattern. Objective Remarks: GENERAL: Patient is 73 yo lying in bed in NAD SKIN: Warm and dry. HEAD: Normocephalic. EYES: No scleral icterus. No injection or drainage. NECK: Supple, trachea midline. No JVD or lymphadenopathy. CARDIOVASCULAR:tachycardic without murmurs, gallops, or rubs. RESPIRATORY: B/l equal air entry GASTROINTESTINAL: Abdomen distended. Protuberant. hypoactive BS MUSCULOSKELETAL: 1-2+ bilateral upper and lower extremity peripheral edema. Neuro: Awake and alert Assessment and Plan - Assessment and Plan Plan: ASSESSMENT: Acute hypercapnic respiratory failure Acute COPD exacerbation Altered mental status due to CO2 narcosis Acute kidney injury/failure Hypertension Leukocytosis Hyperglycemia COPD Hypernatremia Hypopotassemia Normocytic anemia Thrombocytopenia Hyperphosphatemia Colonic ileus PLAN: NEURO: -Monitor neuro status, avoid sedatives -Awake and alert RESP: -Continue with oxygen keep sats >92% -Extubated 06/29. Reintubated 07/02 extubated 07/07 -DuoNeb every 4 hours scheduled and butyryl aerosols every 2 hours as needed -Methylprednisolone succinate 40 mg daily -Inhaled budesonide -NIPPV PRN for resp distress -07/02 CTA chest:No PE, bibasilar air space disease -07/02 Doppler US LE negative DVT -CXR 07/10: Mild patchy bilateral lung base opacity likely representing atelectasis unchanged. Small left pleural effusion CV: - Monitor HR and BP keep MAP>65mmHg -Continue with BP meds, Cardizem 60mg Q6, GI: -KUB 07/13: Stable nonobstructive colonic distention. Given Neostigmine 07/11. -Monitor IAP, Surgery is following- Dr. Oh -NGT to [facility] -s/p repeat decompressive colonoscopy 07/10 07/10: CT abd/pelvis: There is gas and fluid distending the colon. The overall size of the colon has mildly increased when compared to previous exam. The small bowel is normal in caliber. - 07/09 KUB abdomen: Improving bowel gas pattern consistent with improving adynamic ileus. -IV famotidine -Rectal tube to suction -CT abd/pelvis 07/02 :Colonic distention most likely representing moderate adynamic ileus. However, distal sigmoid colon is decompressed and a sigmoid stricture is conceivable but considered less likely -GI for decompression 07/02. On docusate sodium/senna 1 tablet twice daily, lactulose 30 cc 4 times daily, -KUB 07/04- colonic ileus, -KUB 07/05: No significant interval change with persistent diffuse air-filled distention of the colon suggesting ileus. -GI follow s/p decompressive colonoscopy 07/06 -KUB 07/07: Gaseous distention of multiple bowel loops has improved since previous study. FEN/: -Monitor renal function, I/O's, avoid nephrotoxins - Renal- Dr. Figueroa, follow up BMP ID: -d/c metronidazole( has been on Flagyl since 07/02), monitor for signs of infections ( Fever, WBC) -Follow up on BC and urine cx from 07/11- NGTD -07/02 BC: NGTS, sputum cx 07/02:normal resp justyn -ID is following- Dr. Brown HEME: -Monitor CBC, coags, Hep PLT is positive. ANNMARIE negative. Hematology is following. Off argatroban drip ENDO: -Electrolyte replacement per protocol -Sliding scale insulin medium scale PROPH: -Bilateral lower extremity SCDs. PPI , -Doppler US LE negative DVT 07/02 LINES: -Utilize peripheral IVs, Level 2 follow-up. Follow up on labs
[2018-07-14] MEDS: Polyethylene Glycol 3350 17 GM Packet PO SCH ×2 (08:27→21:22)
[2018-07-14] MEDS: Methylnaltrexone Inj 12 MG/0.6 ML Vial SQ SCH (08:28)
[2018-07-14] MEDS: MethylPREDNISolone Sod Succinate Inj 40 MG/ML Vial IV.PUSH SCH (08:28)
[2018-07-14] MEDS: Senna/Docusate Sodium 8.6/50 MG Tablet PO SCH ×2 (08:28→21:22)
[2018-07-14] MEDS: dilTIAZem 60 MG Tablet PO SCH ×4 (08:28→21:21)
[2018-07-14] MEDS: Chlorhexidine 0.12% Oral Kit 15 ML UDC OROPHARYNG SCH ×2 (08:29→21:20)
[2018-07-14] MEDS: Simethicone 80 MG Chew Tablet PO SCH ×4 (08:30→21:25)
[2018-07-14] MEDS: Bisacodyl 10 MG Supp RECTAL SCH (09:00)
[2018-07-14] MEDS: Hydrocortisone Acetate 25 MG Supp RECTAL SCH ×2 (09:00→21:22)
[2018-07-14 12:13] LABS: Baso % (Auto) 0.2 % (0.0-2.0); Hematocrit 23.6 % (39.0-51.0); Hemoglobin 7.6 gm/dL (13.0-17.0); Lymph # (Auto) 0.1 th/mm3 (1.0-4.8); Lymph % (Auto) 0.8 % (9.0-44.0); Mean Corpuscular HGB Conc 32.2 % (32.0-36.0); Mean Corpuscular Hemoglobin 29.7 pg (27.0-34.0); Mean Corpuscular Volume 92.3 fL (80.0-100.0); Mean Platelet Volume 9.9 fL (7.0-11.0); Mono # (Auto) 0.4 th/mm3 (0.0-0.9); Neut # (Auto) 12.3 th/mm3 (1.8-7.7); Platelet Count 60 th/mm3 (150-450); Red Blood Count 2.56 mil/mm3 (4.50-5.90); Red Cell Distribution Width 15.5 % (11.6-17.2); White Blood Count 12.9 th/mm3 (4.0-11.0)
[2018-07-14 12:41] LABS: Albumin 2.6 g/dL (3.4-5.0); Calcium 6.8 mg/dL (8.5-10.1); Carbon Dioxide 23.2 meq/L (21.0-32.0); Magnesium 1.9 mg/dL (1.5-2.5); Phosphorus 5.6 mg/dL (2.5-4.9); Total Protein 5.5 g/dL (6.4-8.2)
--- NOTE | 2018-07-14 12:44 | P.PNGS ---
Subjective Interval history: He seems less comfortable today. KUB does show dilated colon. Physical Exam Vital signs: Vital Signs 07/13/18 13:06 07/13/18 14:00 07/13/18 15:07 Temperature Pulse Rate 100 H 96 H 100 H Respiratory Rate 13 15 22 Blood Pressure 130/58 L 128/67 124/60 Pulse Oximetry 100 100 88 L 07/13/18 15:20 07/13/18 15:56 07/13/18 16:00 Temperature 97.6 F 97.6 F Pulse Rate 97 H 92 H 93 H Respiratory Rate 20 12 12 Blood Pressure 124/60 117/56 L Pulse Oximetry 100 100 07/13/18 16:06 07/13/18 16:16 07/13/18 16:18 Temperature Pulse Rate 97 H 93 H 94 H Respiratory Rate 14 13 14 Blood Pressure 117/56 L 115/58 L 115/58 L Pulse Oximetry 100 100 100 07/13/18 17:00 07/13/18 18:00 07/13/18 18:11 Temperature Pulse Rate 95 H 105 H 106 H Respiratory Rate 17 15 17 Blood Pressure 117/62 95/64 L Pulse Oximetry 99 99 98 07/13/18 18:35 07/13/18 19:01 07/13/18 20:00 Temperature 98.5 F Pulse Rate 104 H 100 H 93 H Respiratory Rate 15 15 14 Blood Pressure 95/64 L 137/68 134/66 Pulse Oximetry 98 98 100 07/13/18 20:01 07/13/18 21:00 07/13/18 22:00 Temperature Pulse Rate 93 H 106 H 104 H Respiratory Rate 20 15 18 Blood Pressure 125/67 Pulse Oximetry 100 100 07/13/18 22:16 07/13/18 23:00 07/13/18 23:23 Temperature Pulse Rate 108 H 103 H 108 H Respiratory Rate 17 17 24 Blood Pressure 155/69 H 155/60 H Pulse Oximetry 100 100 07/14/18 00:00 07/14/18 01:00 07/14/18 02:00 Temperature 98.4 F Pulse Rate 106 H 102 H 100 H Respiratory Rate 24 14 18 Blood Pressure 138/61 130/69 131/64 Pulse Oximetry 96 98 99 07/14/18 03:00 07/14/18 04:00 07/14/18 05:10 Temperature 97.6 F Pulse Rate 99 H 98 H 103 H Respiratory Rate 13 16 22 Blood Pressure 127/61 138/74 118/63 Pulse Oximetry 100 100 97 07/14/18 06:00 07/14/18 07:00 07/14/18 08:00 Temperature 98 F Pulse Rate 98 H 106 H 96 H Respiratory Rate 13 18 14 Blood Pressure 158/88 H 131/69 133/68 Pulse Oximetry 99 99 100 07/14/18 09:00 07/14/18 11:00 Temperature Pulse Rate 105 H 98 H Respiratory Rate 20 16 Blood Pressure 121/65 Pulse Oximetry 97 Intake & Output 07/13/18 07/14/18 07/14/18 18:59 06:59 18:59 Intake Total 1442 / 1442 1210 / 1210 Output Total 350 / 350 700 / 700 Balance 1092 / 1092 510 / 510 Weight 90 kg Intake: IV 300 / 300 1100 / 1100 Potassium Chlor 20 mEq/NACL 0. 1000 / 1000 45% Inj 1,000 ML @ 100 mls/hr IV.SIG .Q10H WOLF Rx#:[id number] KCl 10 mEq Premix Inj 10 meq In 200 / 200 100 ml @ 100 mls/hr IV.SIG Q1H WOLF Rx#:[id number] Flagyl 500 MG Inj 100 ML @ 100 100 / 100 100 / 100 mls/hr IV.SIG Q8H WOLF Rx#: [id number] Oral 720 / 720 0 / 0 Tube Feeding 110 / 110 Intake (Blood Product) Amt 400 / 400 Rbc As-3 Leukoreduced Unit 400 / 400 [id number] Output: Urine 350 / 350 Urine Amount (Catheter) 700 / 700 Straight 700 / 700 Other: Date of Last Bowel Movement 07/13/18 07/14/18 07/14/18 # Bowel Movements 3 # Incontinent Bowel Movements 1 3 Narrative: Abd: distended, somewhat tense, min ttp, no rebound or guarding - Urinary Catheter Management Indwelling Urethral Catheter Cath placed during this visit: yes, but has since been removed by the nurse Reason for continuing: Decision to DC catheter Insertion date: 07/13/18 Insertion time: 20:00 Removal date: 07/13/18 Removal time: 13:30 Straight Cath placed during this visit: no Results - Labs 07/14/18 11:05 07/13/18 10:32 Laboratory Results - last 24 hr 07/13/18 07/13/18 07/13/18 13:30 13:30 14:30 WBC RBC Hgb Hct MCV MCH MCHC RDW Plt Count MPV Prelim Diff (Auto) Neut % (Auto) Lymph % (Auto) Stearns % (Auto) Eos % (Auto) Baso % (Auto) Neut # (Auto) Lymph # (Auto) Stearns # (Auto) Eos # (Auto) Baso # (Auto) Differential Comment POC Glucose Lactic Acid Ur Random Creatinine 33 Ur Random Sodium 78 Blood Type O Positive Antibody Screen Negative MTS Gel Crossmatch See Detail 07/13/18 07/13/18 07/14/18 16:11 20:45 05:29 WBC RBC Hgb Hct MCV MCH MCHC RDW Plt Count MPV Prelim Diff (Auto) Neut % (Auto) Lymph % (Auto) Stearns % (Auto) Eos % (Auto) Baso % (Auto) Neut # (Auto) Lymph # (Auto) Stearns # (Auto) Eos # (Auto) Baso # (Auto) Differential Comment POC Glucose 211 H 172 H 107 Lactic Acid Ur Random Creatinine Ur Random Sodium Blood Type Antibody Screen MTS Gel Crossmatch 07/14/18 07/14/18 07/14/18 08:18 11:05 11:05 WBC 12.9 H RBC 2.56 L Hgb 7.6 L Hct 23.6 L MCV 92.3 MCH 29.7 MCHC 32.2 RDW 15.5 Plt Count 60 L MPV 9.9 Prelim Diff (Auto) Slide review pending Neut % (Auto) 96.0 H Lymph % (Auto) 0.8 L Stearns % (Auto) 3.0 Eos % (Auto) 0.0 Baso % (Auto) 0.2 Neut # (Auto) 12.3 H Lymph # (Auto) 0.1 L Ste[place]s # (Auto) 0.4 Eos # (Auto) 0.0 Baso # (Auto) 0.0 Differential Comment . POC Glucose 112 H Lactic Acid 0.9 Ur Random Creatinine Ur Random Sodium Blood Type Antibody Screen MTS Gel Crossmatch 07/14/18 11:29 WBC RBC Hgb Hct MCV MCH MCHC RDW Plt Count MPV Prelim Diff (Auto) Neut % (Auto) Lymph % (Auto) Ste[place]s % (Auto) Eos % (Auto) Baso % (Auto) Neut # (Auto) Lymph # (Auto) Stearns # (Auto) Eos # (Auto) Baso # (Auto) Differential Comment POC Glucose 139 H Lactic Acid Ur Random Creatinine Ur Random Sodium Blood Type Antibody Screen MTS Gel Crossmatch - Imaging Imaging: ITS Impressions Abdomen Ultrasound 06/21/18 00:00 CONCLUSION: 1. No ascites is identified within the abdomen. Abdomen/Bladder Ultrasound 06/28/18 00:00 CONCLUSION: 1. Echogenic kidneys characteristic of medical renal disease. No hydronephrosis. Bladder decompressed by [facility] Chest CTA 07/02/18 00:00 CONCLUSION: 1. No pulmonary embolus. 2. Diffuse but basilar predominant bilateral airspace disease. 3. Endotracheal and endobronchial secretions are demonstrated. 4. Moderate emphysema. 5. Left ventricular hypertrophy. Venous Doppler Study 07/02/18 00:00 CONCLUSION: 1. Limited, no evidence for thrombosis. Abdomen/Pelvis CT 07/10/18 08:31 CONCLUSION: 1. There is gas and fluid distending the colon. The patient has a rectal tube in place however the rectal tube is kinked back on itself and occluded. The overall size of the colon has mildly increased when compared to previous exam. The small bowel is normal in caliber. 2. Interval development of a small left basilar effusion and atelectasis. Chest X-Ray 07/10/18 08:42 CONCLUSION: Mild patchy bilateral lung base opacity likely representing atelectasis unchanged. Small left pleural effusion now seen. Abdomen X-Ray 07/14/18 06:00 CONCLUSION: Distended air-filled colon. Ileus is the most likely etiology for this pattern. 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 Abdomen more distended since yesterday and has dilated colon on KUB. Stop enteral feeding. NGT to suction. Case d/w Dr. Berrios who will evaluate the patient and give recommendations; appreciate his treatment.
[2018-07-14 12:56] LABS: Potassium 2.9 meq/L (3.5-5.1)
[2018-07-14 12:59] LABS: Platelet Morphology Normal (Normal)
--- NOTE | 2018-07-14 13:51 | P.PNGI ---
Subjective Interval history: Patient continues in the intensive care setting and appears very weak and NG tube, low intermittent suction Hemoglobin 7.6 today which is mildly increased but platelet count is hanging low at 60 rare minimal bowel sounds KUB was rechecked with stable colonic distention noted. Attempted tube feeds but off for now, according to staff was causing increased abdominal distention <Lucy Faulkner - Last Filed: 07/14/18 13:52> Physical Exam Vital signs: Vital Signs 07/13/18 14:00 07/13/18 15:07 07/13/18 15:20 Temperature Pulse Rate 96 H 100 H 97 H Respiratory Rate 15 22 20 Blood Pressure 128/67 124/60 Pulse Oximetry 100 88 L 07/13/18 15:56 07/13/18 16:00 07/13/18 16:06 Temperature 97.6 F 97.6 F Pulse Rate 92 H 93 H 97 H Respiratory Rate 12 12 14 Blood Pressure 124/60 117/56 L 117/56 L Pulse Oximetry 100 100 100 07/13/18 16:16 07/13/18 16:18 07/13/18 17:00 Temperature Pulse Rate 93 H 94 H 95 H Respiratory Rate 13 14 17 Blood Pressure 115/58 L 115/58 L 117/62 Pulse Oximetry 100 100 99 07/13/18 18:00 07/13/18 18:11 07/13/18 18:35 Temperature Pulse Rate 105 H 106 H 104 H Respiratory Rate 15 17 15 Blood Pressure 95/64 L 95/64 L Pulse Oximetry 99 98 98 07/13/18 19:01 07/13/18 20:00 07/13/18 20:01 Temperature 98.5 F Pulse Rate 100 H 93 H 93 H Respiratory Rate 15 14 20 Blood Pressure 137/68 134/66 Pulse Oximetry 98 100 07/13/18 21:00 07/13/18 22:00 07/13/18 22:16 Temperature Pulse Rate 106 H 104 H 108 H Respiratory Rate 15 18 17 Blood Pressure 125/67 155/69 H Pulse Oximetry 100 100 100 07/13/18 23:00 07/13/18 23:23 07/14/18 00:00 Temperature 98.4 F Pulse Rate 103 H 108 H 106 H Respiratory Rate 17 24 24 Blood Pressure 155/60 H 138/61 Pulse Oximetry 100 96 07/14/18 01:00 07/14/18 02:00 07/14/18 03:00 Temperature Pulse Rate 102 H 100 H 99 H Respiratory Rate 14 18 13 Blood Pressure 130/69 131/64 127/61 Pulse Oximetry 98 99 100 07/14/18 04:00 07/14/18 05:10 07/14/18 06:00 Temperature 97.6 F Pulse Rate 98 H 103 H 98 H Respiratory Rate 16 22 13 Blood Pressure 138/74 118/63 158/88 H Pulse Oximetry 100 97 99 07/14/18 07:00 07/14/18 08:00 07/14/18 09:00 Temperature 98 F Pulse Rate 106 H 96 H 105 H Respiratory Rate 18 14 20 Blood Pressure 131/69 133/68 121/65 Pulse Oximetry 99 100 97 07/14/18 11:00 Temperature Pulse Rate 98 H Respiratory Rate 16 Blood Pressure Pulse Oximetry Intake & Output 07/13/18 07/14/18 07/14/18 18:59 06:59 18:59 Intake Total 1442 / 1442 1210 / 1210 Output Total 350 / 350 700 / 700 Balance 1092 / 1092 510 / 510 Weight 90 kg Intake: IV 300 / 300 1100 / 1100 Potassium Chlor 20 mEq/NACL 0. 1000 / 1000 45% Inj 1,000 ML @ 100 mls/hr IV.SIG .Q10H WOLF Rx#:[id number] KCl 10 mEq Premix Inj 10 meq In 200 / 200 100 ml @ 100 mls/hr IV.SIG Q1H WOLF Rx#:[id number] Flagyl 500 MG Inj 100 ML @ 100 100 / 100 100 / 100 mls/hr IV.SIG Q8H WOLF Rx#: [id number] Oral 720 / 720 0 / 0 Tube Feeding 110 / 110 Intake (Blood Product) Amt 400 / 400 Rbc As-3 Leukoreduced Unit 400 / 400 [id number] Output: Urine 350 / 350 Urine Amount (Catheter) 700 / 700 Straight 700 / 700 Other: Date of Last Bowel Movement 07/13/18 07/14/18 07/14/18 # Bowel Movements 3 # Incontinent Bowel Movements 1 3 - Constitutional severe distress, cachectic, cooperative, somnolent - Routine HEENT Exam Head: Present: normocephalic (Pale mucous membranes) ENT: Present: mucous membranes moist - Routine Respiratory Exam Present: diminished air movement (Low volumes) - Routine Cardiovascular Exam Present: S1, S2 - Urinary Catheter Management Indwelling Urethral Catheter Cath placed during this visit: yes, but has since been removed by the nurse Reason for continuing: Decision to DC catheter Insertion date: 07/13/18 Insertion time: 20:00 Removal date: 07/13/18 Removal time: 13:30 Straight Cath placed during this visit: no <Lucy Faulkner - Last Filed: 07/14/18 13:52> Vital signs: Vital Signs 07/13/18 23:00 07/13/18 23:23 07/14/18 00:00 Temperature 98.4 F Pulse Rate 103 H 108 H 106 H Respiratory Rate 17 24 24 Blood Pressure 155/60 H 138/61 Pulse Oximetry 100 96 07/14/18 01:00 07/14/18 02:00 07/14/18 03:00 Temperature Pulse Rate 102 H 100 H 99 H Respiratory Rate 14 18 13 Blood Pressure 130/69 131/64 127/61 Pulse Oximetry 98 99 100 07/14/18 04:00 07/14/18 05:10 07/14/18 06:00 Temperature 97.6 F Pulse Rate 98 H 103 H 98 H Respiratory Rate 16 22 13 Blood Pressure 138/74 118/63 158/88 H Pulse Oximetry 100 97 99 07/14/18 07:00 07/14/18 08:00 07/14/18 09:00 Temperature 98 F Pulse Rate 106 H 96 H 105 H Respiratory Rate 18 14 20 Blood Pressure 131/69 133/68 121/65 Pulse Oximetry 99 100 97 07/14/18 10:00 07/14/18 11:00 07/14/18 12:00 Temperature Pulse Rate 101 H 96 H 94 H Respiratory Rate 16 29 H 21 Blood Pressure 117/65 108/60 Pulse Oximetry 98 96 96 07/14/18 12:01 07/14/18 13:00 07/14/18 14:00 Temperature Pulse Rate 92 H 98 H 97 H Respiratory Rate 22 18 20 Blood Pressure 143/64 H 125/58 L 141/63 H Pulse Oximetry 97 99 98 07/14/18 15:00 07/14/18 16:00 07/14/18 17:01 Temperature Pulse Rate 92 H 97 H 94 H Respiratory Rate 22 21 19 Blood Pressure 130/60 141/60 H 95/56 L Pulse Oximetry 98 99 93 L 07/14/18 18:00 07/14/18 19:00 Temperature Pulse Rate 92 H 104 H Respiratory Rate 13 23 Blood Pressure 135/98 H 134/63 Pulse Oximetry 98 99 Intake & Output 07/14/18 07/14/18 07/15/18 06:59 18:59 06:59 Intake Total 1210 / 1210 1100 / 1100 Output Total 700 / 700 670 / 670 Balance 510 / 510 430 / 430 Weight 90 kg Intake: IV 1100 / 1100 1100 / 1100 Potassium Chlor 20 mEq/NACL 0. 1000 / 1000 1000 / 1000 45% Inj 1,000 ML @ 100 mls/hr IV.SIG .Q10H WOLF Rx#:[id number] KCl 20 mEq Premix Inj 20 meq In 100 / 100 100 ml @ 50 mls/hr IV.SIG Q2H WOLF Rx#:[id number] Flagyl 500 MG Inj 100 ML @ 100 100 / 100 mls/hr IV.SIG Q8H WOLF Rx#: [id number] Oral 0 / 0 Tube Feeding 110 / 110 Output: Urine Amount (Catheter) 700 / 700 650 / 650 Straight 700 / 700 650 / 650 Gastric Drainage Right Nare Nasogastric Tube Other: Date of Last Bowel Movement 07/14/18 07/14/18 # Bowel Movements 3 # Incontinent Bowel Movements 3 3 - Urinary Catheter Management Indwelling Urethral Catheter Cath placed during this visit: no Straight Cath placed during this visit: no <Anuj Damon E - Last Filed: 07/14/18 22:29> Results - Labs CBC & Chem 7: 07/14/18 11:05 07/14/18 11:05 Laboratory Results - last 24 hr 07/13/18 07/13/18 07/13/18 13:30 13:30 14:30 WBC RBC Hgb Hct MCV MCH MCHC RDW Plt Count MPV Prelim Diff (Auto) Neut % (Auto) Lymph % (Auto) [place] % (Auto) Eos % (Auto) Baso % (Auto) Neut # (Auto) Lymph # (Auto) [place] # (Auto) Eos # (Auto) Baso # (Auto) WBC Differential Diff Scan Differential Comment Platelet Estimate Platelet Morphology Sodium Potassium Chloride Carbon Dioxide Anion Gap BUN Creatinine Estimated GFR POC Glucose Random Glucose Lactic Acid Calcium Prot Corrected Calcium Phosphorus Magnesium Total Bilirubin AST ALT Alkaline Phosphatase Total Protein Albumin Ur Random Creatinine 33 Ur Random Sodium 78 Blood Type O Positive Antibody Screen Negative MTS Gel Crossmatch See Detail 07/13/18 07/13/18 07/14/18 16:11 20:45 05:29 WBC RBC Hgb Hct MCV MCH MCHC RDW Plt Count MPV Prelim Diff (Auto) Neut % (Auto) Lymph % (Auto) [place] % (Auto) Eos % (Auto) Baso % (Auto) Neut # (Auto) Lymph # (Auto) [place] # (Auto) Eos # (Auto) Baso # (Auto) WBC Differential Diff Scan Differential Comment Platelet Estimate Platelet Morphology Sodium Potassium Chloride Carbon Dioxide Anion Gap BUN Creatinine Estimated GFR POC Glucose 211 H 172 H 107 Random Glucose Lactic Acid Calcium Prot Corrected Calcium Phosphorus Magnesium Total Bilirubin AST ALT Alkaline Phosphatase Total Protein Albumin Ur Random Creatinine Ur Random Sodium Blood Type Antibody Screen MTS Gel Crossmatch 07/14/18 07/14/18 07/14/18 08:18 11:05 11:05 WBC 12.9 H RBC 2.56 L Hgb 7.6 L Hct 23.6 L MCV 92.3 MCH 29.7 MCHC 32.2 RDW 15.5 Plt Count 60 L MPV 9.9 Prelim Diff (Auto) Slide review pending Neut % (Auto) 96.0 H Lymph % (Auto) 0.8 L [place] % (Auto) 3.0 Eos % (Auto) 0.0 Baso % (Auto) 0.2 Neut # (Auto) 12.3 H Lymph # (Auto) 0.1 L [place] # (Auto) 0.4 Eos # (Auto) 0.0 Baso # (Auto) 0.0 WBC Differential . Diff Scan Auto diff confirmed Differential Comment . Platelet Estimate Low L Platelet Morphology Normal Sodium 144 Potassium 2.9 L* Chloride 103 Carbon Dioxide 23.2 Anion Gap 18 H BUN 76 H Creatinine 4.48 H Estimated GFR 16 L POC Glucose 112 H Random Glucose 128 H Lactic Acid Calcium 6.8 L* Prot Corrected Calcium 7.6 L Phosphorus 5.6 H D Magnesium 1.9 Total Bilirubin 0.6 AST 53 H ALT 56 Alkaline Phosphatase 78 Total Protein 5.5 L Albumin 2.6 L Ur Random Creatinine Ur Random Sodium Blood Type Antibody Screen MTS Gel Crossmatch 07/14/18 07/14/18 11:05 11:29 WBC RBC Hgb Hct MCV MCH MCHC RDW Plt Count MPV Prelim Diff (Auto) Neut % (Auto) Lymph % (Auto) [place] % (Auto) Eos % (Auto) Baso % (Auto) Neut # (Auto) Lymph # (Auto) [place] # (Auto) Eos # (Auto) Baso # (Auto) WBC Differential Diff Scan Differential Comment Platelet Estimate Platelet Morphology Sodium Potassium Chloride Carbon Dioxide Anion Gap BUN Creatinine Estimated GFR POC Glucose 139 H Random Glucose Lactic Acid 0.9 Calcium Prot Corrected Calcium Phosphorus Magnesium Total Bilirubin AST ALT Alkaline Phosphatase Total Protein Albumin Ur Random Creatinine Ur Random Sodium Blood Type Antibody Screen MTS Gel Crossmatch Microbiology 07/11/18 13:50 Blood - Peripheral Aerobic Blood Culture - Preliminary No growth in 3 days 07/11/18 13:50 Blood - Peripheral Anaerobic Blood Culture - Preliminary No growth in 3 days 07/11/18 02:48 Blood - Peripheral Aerobic Blood Culture - Preliminary No growth in 3 days 07/11/18 02:48 Blood - Peripheral Anaerobic Blood Culture - Preliminary No growth in 3 days 07/11/18 16:50 Clean Catch Urine Urine Culture - Final No growth in 48 hours - Imaging Impressions Abdomen X-Ray 07/14/18 06:00 CONCLUSION: Distended air-filled colon. Ileus is the most likely etiology for this pattern. <Lucy Faulkner - Last Filed: 07/14/18 13:52> - Labs CBC & Chem 7: 07/14/18 11:05 07/14/18 20:58 Laboratory Results - last 24 hr 07/14/18 07/14/18 07/14/18 05:29 08:18 11:05 WBC 12.9 H RBC 2.56 L Hgb 7.6 L Hct 23.6 L MCV 92.3 MCH 29.7 MCHC 32.2 RDW 15.5 Plt Count 60 L MPV 9.9 Prelim Diff (Auto) Slide review pending Neut % (Auto) 96.0 H Lymph % (Auto) 0.8 L [place] % (Auto) 3.0 Eos % (Auto) 0.0 Baso % (Auto) 0.2 Neut # (Auto) 12.3 H Lymph # (Auto) 0.1 L [place] # (Auto) 0.4 Eos # (Auto) 0.0 Baso # (Auto) 0.0 WBC Differential . Diff Scan Auto diff confirmed Differential Comment . Platelet Estimate Low L Platelet Morphology Normal Sodium Potassium Chloride Carbon Dioxide Anion Gap BUN Creatinine Estimated GFR POC Glucose 107 112 H Random Glucose Lactic Acid Calcium Prot Corrected Calcium Phosphorus Magnesium Total Bilirubin AST ALT Alkaline Phosphatase Total Protein Albumin Urine Color Urine Clarity Urine pH Ur Specific [place] Urine Protein Urine Glucose (UA) Urine Ketones Urine Occult Blood Urine Nitrate Urine Bilirubin Urine Urobilinogen Ur Leukocyte Esterase Urine RBC Urine WBC Amorphous Sediment Micro UA Comment Ur Microscopic Review Urine Culture Comments 07/14/18 07/14/18 07/14/18 11:05 11:05 11:29 WBC RBC Hgb Hct MCV MCH MCHC RDW Plt Count MPV Prelim Diff (Auto) Neut % (Auto) Lymph % (Auto) [place] % (Auto) Eos % (Auto) Baso % (Auto) Neut # (Auto) Lymph # (Auto) [place] # (Auto) Eos # (Auto) Baso # (Auto) WBC Differential Diff Scan Differential Comment Platelet Estimate Platelet Morphology Sodium 144 Potassium 2.9 L* Chloride 103 Carbon Dioxide 23.2 Anion Gap 18 H BUN 76 H Creatinine 4.48 H Estimated GFR 16 L POC Glucose 139 H Random Glucose 128 H Lactic Acid 0.9 Calcium 6.8 L* Prot Corrected Calcium 7.6 L Phosphorus 5.6 H D Magnesium 1.9 Total Bilirubin 0.6 AST 53 H ALT 56 Alkaline Phosphatase 78 Total Protein 5.5 L Albumin 2.6 L Urine Color Urine Clarity Urine pH Ur Specific [place] Urine Protein Urine Glucose (UA) Urine Ketones Urine Occult Blood Urine Nitrate Urine Bilirubin Urine Urobilinogen Ur Leukocyte Esterase Urine RBC Urine WBC Amorphous Sediment Micro UA Comment Ur Microscopic Review Urine Culture Comments 07/14/18 07/14/18 07/14/18 16:31 20:56 20:58 WBC RBC Hgb Hct MCV MCH MCHC RDW Plt Count MPV Prelim Diff (Auto) Neut % (Auto) Lymph % (Auto) [place] % (Auto) Eos % (Auto) Baso % (Auto) Neut # (Auto) Lymph # (Auto) [place] # (Auto) Eos # (Auto) Baso # (Auto) WBC Differential Diff Scan Differential Comment Platelet Estimate Platelet Morphology Sodium Potassium 3.4 L Chloride Carbon Dioxide Anion Gap BUN Creatinine Estimated GFR POC Glucose 158 H 177 H Random Glucose Lactic Acid Calcium Prot Corrected Calcium Phosphorus Magnesium Total Bilirubin AST ALT Alkaline Phosphatase Total Protein Albumin Urine Color Urine Clarity Urine pH Ur Specific [place] Urine Protein Urine Glucose (UA) Urine Ketones Urine Occult Blood Urine Nitrate Urine Bilirubin Urine Urobilinogen Ur Leukocyte Esterase Urine RBC Urine WBC Amorphous Sediment Micro UA Comment Ur Microscopic Review Urine Culture Comments 07/14/18 21:55 WBC RBC Hgb Hct MCV MCH MCHC RDW Plt Count MPV Prelim Diff (Auto) Neut % (Auto) Lymph % (Auto) [place] % (Auto) Eos % (Auto) Baso % (Auto) Neut # (Auto) Lymph # (Auto) [place] # (Auto) Eos # (Auto) Baso # (Auto) WBC Differential Diff Scan Differential Comment Platelet Estimate Platelet Morphology Sodium Potassium Chloride Carbon Dioxide Anion Gap BUN Creatinine Estimated GFR POC Glucose Random Glucose Lactic Acid Calcium Prot Corrected Calcium Phosphorus Magnesium Total Bilirubin AST ALT Alkaline Phosphatase Total Protein Albumin Urine Color Yellow Urine Clarity Hazy H Urine pH 5.0 Ur Specific [place] 1.009 Urine Protein 30 H Urine Glucose (UA) Negative Urine Ketones Trace H Urine Occult Blood Large H Urine Nitrate Negative Urine Bilirubin Negative Urine Urobilinogen Less than 2 Ur Leukocyte Esterase Trace H Urine RBC 4 H Urine WBC 3 Amorphous Sediment Few H Micro UA Comment Cath-culture not ind Ur Microscopic Review Not Reportable Urine Culture Comments Cath-cult not ind Microbiology 07/11/18 13:50 Blood - Peripheral Aerobic Blood Culture - Preliminary No growth in 3 days 07/11/18 13:50 Blood - Peripheral Anaerobic Blood Culture - Preliminary No growth in 3 days 07/11/18 02:48 Blood - Peripheral Aerobic Blood Culture - Preliminary No growth in 3 days 07/11/18 02:48 Blood - Peripheral Anaerobic Blood Culture - Preliminary No growth in 3 days - Imaging Impressions Abdomen X-Ray 07/14/18 06:00 CONCLUSION: Distended air-filled colon. Ileus is the most likely etiology for this pattern. <Anuj Damon E - Last Filed: 07/14/18 22:29> Assessment and Plan - Plan Assessment Abdominal distention/ileus Pt with long standing history of constipation and is on daily narcotics at home, according to his significant other takes Aloe Vera for constipation but this has not been working Previously seen by our service earlier in this admission status post diagnostic colonoscopy on (07/02) The sigmoid colon was clear then there was significant amount of stool in the descending colon, transverse colon, and part of the sigmoid colon consistent with stool impaction. Attempted to disimpact the patient with fluid as much as possible. Rectum exam was normal. S/P decompressive colonoscopy (07/06) stool in cecum, large amount of water flush, stool section. Internal Hemorrhoids. Neostigmine given on 07/04 and 07/06 Relistor given on 07/02 and 07/03 Pt has also been on on Lactulose QID and Miralax daily CT abd/pelvis WO IV contrast (07/10) There is gas and fluid distending the colon. The patient has a rectal tube in place however the rectal tube is kinked back on itself and occluded. The overall size of the colon has mildly increased when compared to previous exam. The small bowel is normal in caliber. Decompressive colonoscopy (07/10) Ischemic ulcer cecum. Some semisolid stool suctioned. Marked decompression Rectal ulcer from rectal tube. Internal and external hemorrhoids (07/11) Pts abdomen some less distention and pain today. Still with NG to LIWS. Rectal tube discontinued yesterday. According to RN multiple loose stools today. Neostigmine has not been administered yet, waiting to receive it from pharmacy. 07/12/2018 last hemoglobin 7.4, WBC count 18.2, heart rate 104, abdomen continues to have mild to moderate distention and taut, mild improvement of abdominal bloating. Notes status post decompressive colonoscopy on 07/10, rectal tube. Patient input from GS. Who is continuing to monitor labs and any resolution to patient's chronic ileus. Mild gradual improvement , continues to require intensive care setting 07/13/2018 patient appears more lethargic today and gradual decline in hemoglobin noted was 7.4 now 7 mucous membranes pale. Being followed per general surgery for his chronic ileus, conservative medical management but may want to consider decompressive cecostomy. Multiple colonoscopies performed but no long-term improvement noted. Consider palliative care consult to review long -term and short-term goals with patient if able and POA/family. Measuring loose liquid stool, only 60 cc output noted even with fleets enema. KUB performed on 07/12/2018 shows chronic ileus no acute changes 07/14/2018 patient continues with lethargy mild increase in hemoglobin 7.6 but no GI bleeding for now. Diminished bowel sounds again over the past 24 hours and Nepro feedings have been turned off due to increased abdominal distention. Connected again to low intermittent suction. KUB on 07/13/2018 showed stable colonic ileus. Appreciate consult Dr. Berrios pending. Multiple compressive colonoscopies are effective only temporarily. Patient might benefit from cecostomy. Also may consider palliative care consult as patient's generalized condition appears to be deteriorating diagnostic colonoscopy on (07/02) The sigmoid colon was clear then there was significant amount of stool in the descending colon, transverse colon, and part of the sigmoid colon consistent with stool impaction. Attempted to disimpact the patient with fluid as much as possible. Rectum exam was normal. S/P decompressive colonoscopy (07/06) stool in cecum, large amount of water flush, stool section. Internal Hemorrhoids. Plan NG tube, diet n.p.o., low intermittent suction Fleets enemas daily, bowel regimen daily currently has loose minimal BMs Check Hemoccult with next specimen Monitor labs and correct electrolytes, transfuse as needed Consider weaning off narcotics completely Pepcid, Protonix IV twice BID, steroids continue for now Reglan, Relistor, Mylicon and MiraLAX Patient was seen per myself and Dr. Damon , note was written on his behalf <Lucy Faulkner M - Last Filed: 07/14/18 13:52> - Plan Patient seen and examined Agree with above Continue with current supportive care Monitor labs <Anuj Damon - Last Filed: 07/14/18 22:29>
[2018-07-14] MEDS ORDERED: Potassium Chloride Inj 20 MEQ/10 ML Vial IV.SIG ONE (14:00)
--- NOTE | 2018-07-14 14:05 | P.PNID ---
Subjective Remarks: + liquid stool On neostigmine Improving leukocytosis - down to 12 K On 3 L NC O2 Antibiotics: none Allergies/Adverse Reactions: Allergies shellfish derived Allergy (Severe, Verified 10/10/17 13:48) Anaphylaxis Objective Vital Signs 07/13/18 14:00 07/13/18 15:07 07/13/18 15:20 Temperature Pulse Rate 96 H 100 H 97 H Respiratory Rate 15 22 20 Blood Pressure 128/67 124/60 Pulse Oximetry 100 88 L 07/13/18 15:56 07/13/18 16:00 07/13/18 16:06 Temperature 97.6 F 97.6 F Pulse Rate 92 H 93 H 97 H Respiratory Rate 12 12 14 Blood Pressure 124/60 117/56 L 117/56 L Pulse Oximetry 100 100 100 07/13/18 16:16 07/13/18 16:18 07/13/18 17:00 Temperature Pulse Rate 93 H 94 H 95 H Respiratory Rate 13 14 17 Blood Pressure 115/58 L 115/58 L 117/62 Pulse Oximetry 100 100 99 07/13/18 18:00 07/13/18 18:11 07/13/18 18:35 Temperature Pulse Rate 105 H 106 H 104 H Respiratory Rate 15 17 15 Blood Pressure 95/64 L 95/64 L Pulse Oximetry 99 98 98 07/13/18 19:01 07/13/18 20:00 07/13/18 20:01 Temperature 98.5 F Pulse Rate 100 H 93 H 93 H Respiratory Rate 15 14 20 Blood Pressure 137/68 134/66 Pulse Oximetry 98 100 07/13/18 21:00 07/13/18 22:00 07/13/18 22:16 Temperature Pulse Rate 106 H 104 H 108 H Respiratory Rate 15 18 17 Blood Pressure 125/67 155/69 H Pulse Oximetry 100 100 100 07/13/18 23:00 07/13/18 23:23 07/14/18 00:00 Temperature 98.4 F Pulse Rate 103 H 108 H 106 H Respiratory Rate 17 24 24 Blood Pressure 155/60 H 138/61 Pulse Oximetry 100 96 07/14/18 01:00 07/14/18 02:00 07/14/18 03:00 Temperature Pulse Rate 102 H 100 H 99 H Respiratory Rate 14 18 13 Blood Pressure 130/69 131/64 127/61 Pulse Oximetry 98 99 100 07/14/18 04:00 07/14/18 05:10 07/14/18 06:00 Temperature 97.6 F Pulse Rate 98 H 103 H 98 H Respiratory Rate 16 22 13 Blood Pressure 138/74 118/63 158/88 H Pulse Oximetry 100 97 99 07/14/18 07:00 07/14/18 08:00 07/14/18 09:00 Temperature 98 F Pulse Rate 106 H 96 H 105 H Respiratory Rate 18 14 20 Blood Pressure 131/69 133/68 121/65 Pulse Oximetry 99 100 97 07/14/18 11:00 Temperature Pulse Rate 98 H Respiratory Rate 16 Blood Pressure Pulse Oximetry Intake & Output 07/13/18 07/14/18 07/14/18 18:59 06:59 18:59 Intake Total 1442 / 1442 1210 / 1210 Output Total 350 / 350 700 / 700 Balance 1092 / 1092 510 / 510 Weight 90 kg Intake: IV 300 / 300 1100 / 1100 Potassium Chlor 20 mEq/NACL 0. 1000 / 1000 45% Inj 1,000 ML @ 100 mls/hr IV.SIG .Q10H WOLF Rx#:[id number] KCl 10 mEq Premix Inj 10 meq In 200 / 200 100 ml @ 100 mls/hr IV.SIG Q1H WOLF Rx#:[id number] Flagyl 500 MG Inj 100 ML @ 100 100 / 100 100 / 100 mls/hr IV.SIG Q8H WOLF Rx#: [id number] Oral 720 / 720 0 / 0 Tube Feeding 110 / 110 Intake (Blood Product) Amt 400 / 400 Rbc As-3 Leukoreduced Unit 400 / 400 [id number] Output: Urine 350 / 350 Urine Amount (Catheter) 700 / 700 Straight 700 / 700 Other: Date of Last Bowel Movement 07/13/18 07/14/18 07/14/18 # Bowel Movements 3 # Incontinent Bowel Movements 1 3 07/11/18 13:50 Blood - Peripheral Aerobic Blood Culture - Preliminary No growth in 3 days 07/11/18 13:50 Blood - Peripheral Anaerobic Blood Culture - Preliminary No growth in 3 days 07/11/18 02:48 Blood - Peripheral Aerobic Blood Culture - Preliminary No growth in 3 days 07/11/18 02:48 Blood - Peripheral Anaerobic Blood Culture - Preliminary No growth in 3 days 07/11/18 16:50 Clean Catch Urine Urine Culture - Final No growth in 48 hours Lab - Hematology Results 07/12/18 07/13/18 07/14/18 10:09 10:32 11:05 CBC w Diff Cancelled WBC Cancelled 15.3 H 12.9 H Corrected WBC Cancelled RBC Cancelled 2.31 L 2.56 L Hgb Cancelled 7.0 L 7.6 L Hct Cancelled 21.6 L 23.6 L MCV Cancelled 93.5 92.3 MCH Cancelled 30.6 29.7 MCHC Cancelled 32.7 32.2 RDW Cancelled 14.5 15.5 Plt Count Cancelled 62 L 60 L MPV Cancelled 10.4 9.9 Prelim Diff (Auto) Cancelled Slide review pending Slide review pending Immature Gran % (Auto) Cancelled Neut % (Auto) Cancelled 95.7 H 96.0 H Lymph % (Auto) Cancelled 1.0 L 0.8 L Hardy % (Auto) Cancelled 3.1 3.0 Eos % (Auto) Cancelled 0.0 0.0 Baso % (Auto) Cancelled 0.2 0.2 Immature Gran # (Auto) Cancelled Neut # (Auto) Cancelled 14.6 H 12.3 H Lymph # (Auto) Cancelled 0.2 L 0.1 L Hardy # (Auto) Cancelled 0.5 0.4 Eos # (Auto) Cancelled 0.0 0.0 Baso # (Auto) Cancelled 0.0 0.0 WBC Differential Cancelled . . Diff Scan Cancelled Auto diff confirmed Auto diff confirmed Seg Neuts % (Manual) Cancelled Band Neuts % (Manual) Cancelled Lymphocytes % (Manual) Cancelled Atypical Lymphs % (Man) Cancelled Monocytes % (Manual) Cancelled Eosinophils % (Manual) Cancelled Basophils % (Manual) Cancelled Metamyelocytes % (Man) Cancelled Myelocytes % (Man) Cancelled Promyelocytes % (Man) Cancelled Blast Cells % (Manual) Cancelled Plasma Cell % (Manual) Cancelled Other Cells % Cancelled Abs Neuts (Manual) Cancelled Nucleated RBCs/100 WBC Cancelled Differential Comment Cancelled . . Hypersegmented Neuts Cancelled Smudge Cells Cancelled Toxic Granulation Cancelled Toxic Vacuolation Cancelled Dohle Bodies Cancelled Platelet Estimate Cancelled Low L Platelet Morphology Cancelled Normal RBC Morphology Cancelled Dimorphic RBCs Cancelled Polychromasia Cancelled Basophilic Stippling Cancelled Spherocytes Cancelled Pappenheimer Bodies Cancelled Sickle Cells Cancelled Target Cells Cancelled Tear Drop Cells Cancelled Ovalocytes Cancelled Stomatocytes Cancelled Helmet Cells Cancelled Carlson[place] Bodies Cancelled [place] Cells Cancelled Acanthocytes (Spur) Cancelled Rouleaux Cancelled Keratocytes Cancelled Hematology Comments Cancelled Lab - Chemistry Results 07/12/18 07/12/18 07/13/18 17:02 20:10 00:22 Sodium Potassium Chloride Carbon Dioxide Anion Gap BUN Creatinine Estimated GFR POC Glucose 194 H 190 H 162 H Random Glucose Lactic Acid Calcium Prot Corrected Calcium Phosphorus Magnesium Total Bilirubin AST ALT Alkaline Phosphatase Total Protein Albumin 07/13/18 07/13/18 07/13/18 04:07 08:04 10:32 Sodium 148 H Potassium 2.7 L* Chloride 103 Carbon Dioxide 28.9 Anion Gap 16 H BUN 75 H Creatinine 4.26 H Estimated GFR 17 L POC Glucose 136 H 133 H Random Glucose 151 H Lactic Acid Calcium 6.9 L* Prot Corrected Calcium 7.7 L Phosphorus 6.7 H Magnesium 1.9 Total Bilirubin 0.6 AST 44 H ALT 52 Alkaline Phosphatase 66 Total Protein 5.5 L Albumin 2.5 L 07/13/18 07/13/18 07/14/18 16:11 20:45 05:29 Sodium Potassium Chloride Carbon Dioxide Anion Gap BUN Creatinine Estimated GFR POC Glucose 211 H 172 H 107 Random Glucose Lactic Acid Calcium Prot Corrected Calcium Phosphorus Magnesium Total Bilirubin AST ALT Alkaline Phosphatase Total Protein Albumin 07/14/18 07/14/18 07/14/18 08:18 11:05 11:05 Sodium 144 Potassium 2.9 L* Chloride 103 Carbon Dioxide 23.2 Anion Gap 18 H BUN 76 H Creatinine 4.48 H Estimated GFR 16 L POC Glucose 112 H Random Glucose 128 H Lactic Acid 0.9 Calcium 6.8 L* Prot Corrected Calcium 7.6 L Phosphorus 5.6 H D Magnesium 1.9 Total Bilirubin 0.6 AST 53 H ALT 56 Alkaline Phosphatase 78 Total Protein 5.5 L Albumin 2.6 L 07/14/18 11:29 Sodium Potassium Chloride Carbon Dioxide Anion Gap BUN Creatinine Estimated GFR POC Glucose 139 H Random Glucose Lactic Acid Calcium Prot Corrected Calcium Phosphorus Magnesium Total Bilirubin AST ALT Alkaline Phosphatase Total Protein Albumin Imaging: ITS Impressions Abdomen Ultrasound 06/21/18 00:00 CONCLUSION: 1. No ascites is identified within the abdomen. Abdomen/Bladder Ultrasound 06/28/18 00:00 CONCLUSION: 1. Echogenic kidneys characteristic of medical renal disease. No hydronephrosis. Bladder decompressed by [facility] Chest CTA 07/02/18 00:00 CONCLUSION: 1. No pulmonary embolus. 2. Diffuse but basilar predominant bilateral airspace disease. 3. Endotracheal and endobronchial secretions are demonstrated. 4. Moderate emphysema. 5. Left ventricular hypertrophy. Venous Doppler Study 07/02/18 00:00 CONCLUSION: 1. Limited, no evidence for thrombosis. Abdomen/Pelvis CT 07/10/18 08:31 CONCLUSION: 1. There is gas and fluid distending the colon. The patient has a rectal tube in place however the rectal tube is kinked back on itself and occluded. The overall size of the colon has mildly increased when compared to previous exam. The small bowel is normal in caliber. 2. Interval development of a small left basilar effusion and atelectasis. Chest X-Ray 07/10/18 08:42 CONCLUSION: Mild patchy bilateral lung base opacity likely representing atelectasis unchanged. Small left pleural effusion now seen. Abdomen X-Ray 07/14/18 06:00 CONCLUSION: Distended air-filled colon. Ileus is the most likely etiology for this pattern. Physical Exam: GENERAL: NAD SKIN: Warm and dry. no rash HEAD: Atraumatic. Normocephalic. EYES: Pupils equal and round. No scleral icterus. No injection or drainage. ENT: No nasal bleeding or discharge. Mucous membranes pink and moist. NECK: Trachea midline. No JVD. CARDIOVASCULAR: Regular rate and rhythm. RESPIRATORY: No accessory muscle use. Clear to auscultation. Breath sounds equal bilaterally. GASTROINTESTINAL: Abdomen soft, less tender, markedly distended and tympanic. Hepatic and splenic margins not palpable. mora in place MUSCULOSKELETAL: Extremities without clubbing, cyanosis, or edema. No obvious deformities. NEUROLOGICAL: Awake and alert. No obvious cranial nerve deficits. Motor grossly within normal limits. Five out of 5 muscle strength in the arms and legs. Normal speech. 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
--- NOTE | 2018-07-14 15:00 | P.PNNP ---
Subjective Interval history: Patient has abdominal distention again NG tube to suction He has been followed by GI and general surgery Physical Exam Vital signs: Vital Signs 07/13/18 15:07 07/13/18 15:20 07/13/18 15:56 Temperature 97.6 F Pulse Rate 100 H 97 H 92 H Respiratory Rate 22 20 12 Blood Pressure 124/60 124/60 Pulse Oximetry 88 L 100 07/13/18 16:00 07/13/18 16:06 07/13/18 16:16 Temperature 97.6 F Pulse Rate 93 H 97 H 93 H Respiratory Rate 12 14 13 Blood Pressure 117/56 L 117/56 L 115/58 L Pulse Oximetry 100 100 100 07/13/18 16:18 07/13/18 17:00 07/13/18 18:00 Temperature Pulse Rate 94 H 95 H 105 H Respiratory Rate 14 17 15 Blood Pressure 115/58 L 117/62 Pulse Oximetry 100 99 99 07/13/18 18:11 07/13/18 18:35 07/13/18 19:01 Temperature Pulse Rate 106 H 104 H 100 H Respiratory Rate 17 15 15 Blood Pressure 95/64 L 95/64 L 137/68 Pulse Oximetry 98 98 98 07/13/18 20:00 07/13/18 20:01 07/13/18 21:00 Temperature 98.5 F Pulse Rate 93 H 93 H 106 H Respiratory Rate 14 20 15 Blood Pressure 134/66 125/67 Pulse Oximetry 100 100 07/13/18 22:00 07/13/18 22:16 07/13/18 23:00 Temperature Pulse Rate 104 H 108 H 103 H Respiratory Rate 18 17 17 Blood Pressure 155/69 H 155/60 H Pulse Oximetry 100 100 100 07/13/18 23:23 07/14/18 00:00 07/14/18 01:00 Temperature 98.4 F Pulse Rate 108 H 106 H 102 H Respiratory Rate 24 24 14 Blood Pressure 138/61 130/69 Pulse Oximetry 96 98 07/14/18 02:00 07/14/18 03:00 07/14/18 04:00 Temperature 97.6 F Pulse Rate 100 H 99 H 98 H Respiratory Rate 18 13 16 Blood Pressure 131/64 127/61 138/74 Pulse Oximetry 99 100 100 07/14/18 05:10 07/14/18 06:00 07/14/18 07:00 Temperature Pulse Rate 103 H 98 H 106 H Respiratory Rate 22 13 18 Blood Pressure 118/63 158/88 H 131/69 Pulse Oximetry 97 99 99 07/14/18 08:00 07/14/18 09:00 07/14/18 11:00 Temperature 98 F Pulse Rate 96 H 105 H 98 H Respiratory Rate 14 20 16 Blood Pressure 133/68 121/65 Pulse Oximetry 100 97 Intake & Output 07/13/18 07/14/18 07/14/18 18:59 06:59 18:59 Intake Total 1442 / 1442 1210 / 1210 Output Total 350 / 350 700 / 700 Balance 1092 / 1092 510 / 510 Weight 90 kg Intake: IV 300 / 300 1100 / 1100 Potassium Chlor 20 mEq/NACL 0. 1000 / 1000 45% Inj 1,000 ML @ 100 mls/hr IV.SIG .Q10H WOLF Rx#:[id number] KCl 10 mEq Premix Inj 10 meq In 200 / 200 100 ml @ 100 mls/hr IV.SIG Q1H WOLF Rx#:[id number] Flagyl 500 MG Inj 100 ML @ 100 100 / 100 100 / 100 mls/hr IV.SIG Q8H WOLF Rx#: [id number] Oral 720 / 720 0 / 0 Tube Feeding 110 / 110 Intake (Blood Product) Amt 400 / 400 Rbc As-3 Leukoreduced Unit 400 / 400 [id number] Output: Urine 350 / 350 Urine Amount (Catheter) 700 / 700 Straight 700 / 700 Other: Date of Last Bowel Movement 07/13/18 07/14/18 07/14/18 # Bowel Movements 3 # Incontinent Bowel Movements 1 3 Narrative: GENERAL: Patient appears sick NG tube in place SKIN: Warm and dry. NECK: Supple, trachea midline. No JVD or lymphadenopathy. CARDIOVASCULAR: Regular rate and rhythm without murmurs, gallops, or rubs. RESPIRATORY: Breath sounds diminished at bases bilaterally. GASTROINTESTINAL: Abdomen distended bowel sounds not active EXTREMITIES: 1-2+ edema NEUROLOGICAL: Awake, patient is slow to respond open eyes - Urinary Catheter Management Indwelling Urethral Catheter Cath placed during this visit: yes, but has since been removed by the nurse Reason for continuing: Decision to DC catheter Insertion date: 07/13/18 Insertion time: 20:00 Removal date: 07/13/18 Removal time: 13:30 Straight Cath placed during this visit: no Assessment and Plan - Assessment (1) Acute renal failure Code(s): N17.9 - Acute kidney failure, unspecified Status: Acute (2) Anasarca Code(s): R60.1 - Generalized edema Status: Acute (3) Abdominal distention Code(s): R14.0 - Abdominal distension (gaseous) Status: Acute (4) Ileus Code(s): K56.7 - Ileus, unspecified Status: Acute - Plan ALLYOSN with non-oliguric ATN Creatinine 3 -> 3.4, 4.4 patient urine output is low getting IV fluid 1/2 normal saline at 100 cc an hour with potassium supplement 20 MEQ Off lasix drip now 700cc UOP/24 hours. Ongoing peripheral edema. UOP remains low getting IV hydration, has abdominal distention again Albumin 25 g to 12 hourly added Continue to hydrate and replace potassium and calcium I have decreased the potassium supplementation to 40 mEq extra dose Will continue to monitor if does not resolve he may need dialysis support Continue to follow with GI and surgery for ileus Monitor BMP
[2018-07-14] MEDS ORDERED: Calcium Gluconate Inj 1 GM in Sodium Chlor 0.9% Inj 100 ML IV.SIG ONE (16:00)
[2018-07-14] MEDS: Albumin Human 25% Inj 100 ML IV.SIG SCH (16:00)
[2018-07-14] MEDS: Potassium Chlor 20 mEq Premix 20 MEQ/100 ML PIGGYBACK IV.SIG SCH ×2 (16:07→18:07)
--- NOTE | 2018-07-14 16:38 | P.DIET ---
Nutritional Evaluation Type of nutrition evaluation: follow-up Nutrition consult regarding: Tube Feeding Objective - Diagnosis SOB, COPD Exacerbation - Objective % IBW: 126 Body Weight Used for Calculations: IBW (67.3kg(148 lb)) Energy Needs - Lower Range (kCal/kg): 23 Energy Needs - Upper Range (kCal/kg): 28 Lower Limit kCal/kg (kCals): 1,548 Upper Limit kCal/kg (kCals): 1,884 Lower Limit Protein Factor (Grams per Kg): 1.2 Upper Limit Protein Factor (Grams per Kg): 1.4 Lower Protein Needs (Protein): 81 Upper Protein Needs (Protein): 94 Dietitian Reviewed in Medical Record: Curent medications, Intake & Output, Labs , Medical history, Tube feeding Diet Order: TF'ing Glucerna 1.5 @ goal rate 45ml/hr Objective Comments: PMH includes: COPD, HTN, hyperlipidemia, anxiety Labs include: K+ 2.7, BUN 75, Cr 4.26, GFR 17, POC glucose 137 Meds include: Norvasc, Pepcid, Levemir, Novolin R, Lopressor, Zofran, Beneprotein TID LBM 07/14/18 Assessment Assessment: Pt continues to be at nutritional risk r/t need for TF'ing. TF w/Glucerna 1.5 @ goal rate 45ml/hr on hold per GI note d/t abd distention. Pt still intubated and NPO, aim to restart TF when bowel fxn returns to normal per GI. Wt noted. Labs/electrolytes reviewed-monitor glucose and renal labs. RD available for additional recommendations r/t clinical course. Recommendations: 1. TF'ing w/Glucerna 1.5 @ goal rate 45ml/hr provides for pt's assessed needs 2. Aim to restart TF when pts bowel fxn returns to normal per GI 3. Free Water Flushes per MD, as ordered 4. RD available for additional recommendations r/t clinical course Dietitian to Monitor: Lab values, Electrolytes, Renal labs, Glucose level, Intake & Output, Tube feeding tolerance, Weight change, Medical course
--- NOTE | 2018-07-14 18:14 | P.PNONC ---
Subjective Interval history: Late entry: Patient seen earlier this a.m. Lying in bed, no acute distress. Objective Vital Signs/Intake & Output: Vital Signs 07/13/18 18:11 07/13/18 18:35 07/13/18 19:01 Temperature Pulse Rate 106 H 104 H 100 H Respiratory Rate 17 15 15 Blood Pressure 95/64 L 95/64 L 137/68 Pulse Oximetry 98 98 98 07/13/18 20:00 07/13/18 20:01 07/13/18 21:00 Temperature 98.5 F Pulse Rate 93 H 93 H 106 H Respiratory Rate 14 20 15 Blood Pressure 134/66 125/67 Pulse Oximetry 100 100 07/13/18 22:00 07/13/18 22:16 07/13/18 23:00 Temperature Pulse Rate 104 H 108 H 103 H Respiratory Rate 18 17 17 Blood Pressure 155/69 H 155/60 H Pulse Oximetry 100 100 100 07/13/18 23:23 07/14/18 00:00 07/14/18 01:00 Temperature 98.4 F Pulse Rate 108 H 106 H 102 H Respiratory Rate 24 24 14 Blood Pressure 138/61 130/69 Pulse Oximetry 96 98 07/14/18 02:00 07/14/18 03:00 07/14/18 04:00 Temperature 97.6 F Pulse Rate 100 H 99 H 98 H Respiratory Rate 18 13 16 Blood Pressure 131/64 127/61 138/74 Pulse Oximetry 99 100 100 07/14/18 05:10 07/14/18 06:00 07/14/18 07:00 Temperature Pulse Rate 103 H 98 H 106 H Respiratory Rate 22 13 18 Blood Pressure 118/63 158/88 H 131/69 Pulse Oximetry 97 99 99 07/14/18 08:00 07/14/18 09:00 07/14/18 11:00 Temperature 98 F Pulse Rate 96 H 105 H 98 H Respiratory Rate 14 20 16 Blood Pressure 133/68 121/65 Pulse Oximetry 100 97 07/14/18 15:00 Temperature Pulse Rate 91 H Respiratory Rate 18 Blood Pressure Pulse Oximetry Intake & Output 07/13/18 07/14/18 07/14/18 18:59 06:59 18:59 Intake Total 1442 / 1442 1210 / 1210 1000 / 1000 Output Total 350 / 350 700 / 700 Balance 1092 / 1092 510 / 510 1000 / 1000 Weight 90 kg Intake: IV 300 / 300 1100 / 1100 1000 / 1000 Potassium Chlor 20 mEq/NACL 0. 1000 / 1000 1000 / 1000 45% Inj 1,000 ML @ 100 mls/hr IV.SIG .Q10H [facility] Rx#:[id number] KCl 10 mEq Premix Inj 10 meq In 200 / 200 100 ml @ 100 mls/hr IV.SIG Q1H [facility] Rx#:[id number] Flagyl 500 MG Inj 100 ML @ 100 100 / 100 100 / 100 mls/hr IV.SIG Q8H [facility] Rx#: [id number] Oral 720 / 720 0 / 0 Tube Feeding 110 / 110 Intake (Blood Product) Amt 400 / 400 Rbc As-3 Leukoreduced Unit 400 / 400 [id number] Output: Urine 350 / 350 Urine Amount (Catheter) 700 / 700 Straight 700 / 700 Other: Date of Last Bowel Movement 07/13/18 07/14/18 07/14/18 # Bowel Movements 3 # Incontinent Bowel Movements 1 3 Result Diagrams: 07/15/18 08:01 07/14/18 20:58 Laboratory Results: Laboratory Results - last 24 hr 07/13/18 07/13/18 07/14/18 14:30 20:45 05:29 WBC RBC Hgb Hct MCV MCH MCHC RDW Plt Count MPV Prelim Diff (Auto) Neut % (Auto) Lymph % (Auto) [place] % (Auto) Eos % (Auto) Baso % (Auto) Neut # (Auto) Lymph # (Auto) [place] # (Auto) Eos # (Auto) Baso # (Auto) WBC Differential Diff Scan Differential Comment Platelet Estimate Platelet Morphology Sodium Potassium Chloride Carbon Dioxide Anion Gap BUN Creatinine Estimated GFR POC Glucose 172 H 107 Random Glucose Lactic Acid Calcium Prot Corrected Calcium Phosphorus Magnesium Total Bilirubin AST ALT Alkaline Phosphatase Total Protein Albumin MTS Gel Crossmatch See Detail 07/14/18 07/14/18 07/14/18 08:18 11:05 11:05 WBC 12.9 H RBC 2.56 L Hgb 7.6 L Hct 23.6 L MCV 92.3 MCH 29.7 MCHC 32.2 RDW 15.5 Plt Count 60 L MPV 9.9 Prelim Diff (Auto) Slide review pending Neut % (Auto) 96.0 H Lymph % (Auto) 0.8 L [place] % (Auto) 3.0 Eos % (Auto) 0.0 Baso % (Auto) 0.2 Neut # (Auto) 12.3 H Lymph # (Auto) 0.1 L [place] # (Auto) 0.4 Eos # (Auto) 0.0 Baso # (Auto) 0.0 WBC Differential . Diff Scan Auto diff confirmed Differential Comment . Platelet Estimate Low L Platelet Morphology Normal Sodium 144 Potassium 2.9 L* Chloride 103 Carbon Dioxide 23.2 Anion Gap 18 H BUN 76 H Creatinine 4.48 H Estimated GFR 16 L POC Glucose 112 H Random Glucose 128 H Lactic Acid Calcium 6.8 L* Prot Corrected Calcium 7.6 L Phosphorus 5.6 H D Magnesium 1.9 Total Bilirubin 0.6 AST 53 H ALT 56 Alkaline Phosphatase 78 Total Protein 5.5 L Albumin 2.6 L MTS Gel Crossmatch 07/14/18 07/14/18 07/14/18 11:05 11:29 16:31 WBC RBC Hgb Hct MCV MCH MCHC RDW Plt Count MPV Prelim Diff (Auto) Neut % (Auto) Lymph % (Auto) [place] % (Auto) Eos % (Auto) Baso % (Auto) Neut # (Auto) Lymph # (Auto) [place] # (Auto) Eos # (Auto) Baso # (Auto) WBC Differential Diff Scan Differential Comment Platelet Estimate Platelet Morphology Sodium Potassium Chloride Carbon Dioxide Anion Gap BUN Creatinine Estimated GFR POC Glucose 139 H 158 H Random Glucose Lactic Acid 0.9 Calcium Prot Corrected Calcium Phosphorus Magnesium Total Bilirubin AST ALT Alkaline Phosphatase Total Protein Albumin MTS Gel Crossmatch Culture Results: Microbiology 07/11/18 13:50 Aerobic Blood Culture - Preliminary Blood - Peripheral No growth in 3 days Anaerobic Blood Culture - Preliminary No growth in 3 days 07/11/18 02:48 Aerobic Blood Culture - Preliminary Blood - Peripheral No growth in 3 days Anaerobic Blood Culture - Preliminary No growth in 3 days 07/11/18 16:50 Urine Culture - Final Clean Catch Urine No growth in 48 hours Imaging Studies: Impressions Abdomen X-Ray 07/14/18 06:00 CONCLUSION: Distended air-filled colon. Ileus is the most likely etiology for this pattern. Medications: Active Medications Generic Name Dose Route Start Last Admin Trade Name Freq PRN Reason Stop Dose Admin Acetaminophen 650 mg 06/20/18 02:11 07/09/18 11:20 Tylenol PO 650 mg Q4H PRN Administration Temp > 100.4 Hydrocodone Bitart/Acetaminophen 1 tab 07/09/18 01:37 07/13/18 09:23 [place] 10/325 PO 1 tab Q4H PRN Administration pain Albuterol 1 ampul 07/12/18 08:00 07/14/18 16:00 Duoneb Neb ([facility]) NEB 1 ampul Q4HR NEB [facility] Administration Artificial Tears 1 drop 07/02/18 16:00 07/14/18 17:08 Tears Naturale Opth Drops EACH EYE Not Given Q8H [facility] Bisacodyl 10 mg 06/24/18 15:15 07/14/18 09:00 Dulcolax Supp RECTAL 10 mg DAILY [facility] Administration Budesonide 0.5 mg 06/26/18 20:00 07/14/18 09:21 Pulmocort Respule Neb NEB 0.5 mg Q12HR NEB [facility] Administration Chlorhexidine Gluconate 15 ml 06/26/18 20:00 07/14/18 08:29 Peridex 0.12% Oral Kit OROPHARYNG Not Given BID@0800,1999 [facility] Diltiazem HCl 60 mg 06/30/18 09:00 07/14/18 17:07 Cardizem PO 60 mg QID [facility] Administration Duloxetine HCl 20 mg 06/23/18 18:00 06/28/18 09:09 Cymbalta PO Not Given DAILY [facility] Hydrocortisone Acetate 25 mg 07/10/18 21:00 07/14/18 09:00 Hemorrhoidal Hc Supp RECTAL 25 mg BID [facility] Administration Potassium Chloride/Sodium Chloride 1,000 mls @ 100 mls/hr 07/13/18 13:00 08/19 16:07 Potassium Chlor 20 Meq/Nacl 0.45% Inj IV.SIG 100 mls/hr .Q10H [facility] Administration Insulin Human Regular 0 units 06/28/18 08:00 07/14/18 17:08 Novolin R Correctional Sugar Inj SQ Not Given Q4HR [facility] Protocol Lactulose 30 ml 07/03/18 13:00 07/14/18 17:07 Lactulose Liq PO 30 ml QID [facility] Administration Methylnaltrexone [place] 12 mg 07/10/18 09:00 07/14/18 08:28 Relistor SQ 12 mg DAILY [facility] Administration Methylprednisolone Sodium Succinate 40 mg 07/09/18 09:00 07/14/18 08:28 Solumedrol Inj IV.PUSH 40 mg DAILY [facility] Administration Metoclopramide HCl 10 mg 07/09/18 22:00 07/14/18 15:54 Reglan Inj IV.PUSH 10 mg Q8HR [facility] Administration Protocol Metoprolol Tartrate 2.5 mg 06/27/18 15:08 07/01/18 01:26 Lopressor Inj IV.PUSH 2.5 mg Q6H PRN Administration HEART RATE GREATER THAN 115 Miscellaneous Medication 1 each 06/26/18 12:00 07/14/18 17:08 OROPHARYNG Not Given 0000,0400,1200,1600 [facility] Ondansetron HCl 4 mg 06/20/18 02:11 07/08/18 08:53 Zofran Inj IV.PUSH 4 mg Q6H PRN Administration NAUSEA OR VOMITING Pantoprazole Sodium 40 mg 07/12/18 14:00 07/14/18 15:54 Protonix Inj IV.PUSH 40 mg Q12H [facility] Administration Polyethylene Glycol 17 gm 07/13/18 21:00 07/14/18 08:27 Miralax PO 17 gm BID [facility] Administration Senna/Docusate Sodium 1 tab 06/20/18 09:00 07/14/18 08:28 Maria Guadalupe-Colace PO 1 tab BID [facility] Administration Simethicone 80 mg 06/24/18 18:30 07/14/18 17:08 Mylicon Chew PO Not Given PCHS [facility] Sodium Biphosphate/Sodium Phosphate 118 ml 07/12/18 14:00 07/13/18 09:00 Fleets Enema (Adult) RECTAL 118 ml DAILY [facility] Administration Sodium Chloride 2 ml 06/20/18 09:00 07/14/18 08:28 Ns Flush IV.FLUSH 2 ml BID [facility] Administration Sodium Chloride 2 ml 06/20/18 02:09 07/09/18 09:06 Ns Flush IV.FLUSH 2 ml PRN PRN Administration FLUSH AFTER USING IV ACCESS Sodium Chloride 0 ml 07/03/18 09:00 07/14/18 15:32 Ns Flush IV.FLUSH Not Given DAILY [facility] Objective Remarks: GENERAL: Well-nourished, well-developed elderly male patient, in no acute distress. SKIN: Warm and dry. HEAD: Normocephalic. EYES: No scleral icterus. No injection or drainage. NECK: Supple, trachea midline. CARDIOVASCULAR: Regular rate and rhythm without murmurs. RESPIRATORY: Breath sounds equal bilaterally. No accessory muscle use. GASTROINTESTINAL: Abdomen large round hard, non-tender. EXTREMITIES: No cyanosis, or edema. MUSCULOSKELETAL: Adequate muscle tone. NEUROLOGICAL: No obvious focal deficit. Awake, alert, and oriented x3. PSYCHIATRIC: Appropriate mood and affect; insight and judgment normal. Assessment/Plan - Plan 1. Thrombocytopenia, platelet count 60,000 today. No evidence of bleeding. Continue to monitor. 2. Leukocytosis, is improving, was likely reactive. Continues on steroids and antibiotics have been discontinued. 3. Anemia, secondary to critical illness iatrogenic anemia of inflammation, continue to monitor. Hemoglobin 7.6. 4. 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 Discontinued argatroban gtt. 5. Continue to monitor. - Attending Statement The exam, history, and the medical decision-making described in the above note were completed with the assistance of the mid-level provider. I reviewed and agree with the findings presented. I attest that I had a [id number] encounter with the patient on the same day, and personally performed and documented my assessment and findings in the medical record. 73 yoM admitted with COPD exacerbation with respiratory failure requiring intubation and extubation, constipation requring decompressive colonoscopy. GI team and pulmonary team following. 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 No evidence of VTE. Off argatroban. No evidence of DIC. CT of the abdomen and pelvis with normal liver and spleen. Component of bone marrow suppression dueto sepsis/ critical illness
--- NOTE | 2018-07-14 19:25 | P.PNPL ---
Subjective Interval history: 73 YOAA male with COPD, 02 dependent Follows at [facility] Admitted with AMS, COPD exac [place], denies sob NGT to suction. has increased abd distension Mild abd pain Physical Exam Vital signs: Vital Signs 07/13/18 20:00 07/13/18 20:01 07/13/18 21:00 Temperature 98.5 F Pulse Rate 93 H 93 H 106 H Respiratory Rate 14 20 15 Blood Pressure 134/66 125/67 Pulse Oximetry 100 100 07/13/18 22:00 07/13/18 22:16 07/13/18 23:00 Temperature Pulse Rate 104 H 108 H 103 H Respiratory Rate 18 17 17 Blood Pressure 155/69 H 155/60 H Pulse Oximetry 100 100 100 07/13/18 23:23 07/14/18 00:00 07/14/18 01:00 Temperature 98.4 F Pulse Rate 108 H 106 H 102 H Respiratory Rate 24 24 14 Blood Pressure 138/61 130/69 Pulse Oximetry 96 98 07/14/18 02:00 07/14/18 03:00 07/14/18 04:00 Temperature 97.6 F Pulse Rate 100 H 99 H 98 H Respiratory Rate 18 13 16 Blood Pressure 131/64 127/61 138/74 Pulse Oximetry 99 100 100 07/14/18 05:10 07/14/18 06:00 07/14/18 07:00 Temperature Pulse Rate 103 H 98 H 106 H Respiratory Rate 22 13 18 Blood Pressure 118/63 158/88 H 131/69 Pulse Oximetry 97 99 99 07/14/18 08:00 07/14/18 09:00 07/14/18 11:00 Temperature 98 F Pulse Rate 96 H 105 H 98 H Respiratory Rate 14 20 16 Blood Pressure 133/68 121/65 Pulse Oximetry 100 97 07/14/18 15:00 Temperature Pulse Rate 91 H Respiratory Rate 18 Blood Pressure Pulse Oximetry Intake & Output 07/14/18 07/14/18 07/15/18 06:59 18:59 06:59 Intake Total 1210 / 1210 1000 / 1000 Output Total 700 / 700 Balance 510 / 510 1000 / 1000 Weight 90 kg Intake: IV 1100 / 1100 1000 / 1000 Potassium Chlor 20 mEq/NACL 0. 1000 / 1000 1000 / 1000 45% Inj 1,000 ML @ 100 mls/hr IV.SIG .Q10H [facility] Rx#:[id number] Flagyl 500 MG Inj 100 ML @ 100 100 / 100 mls/hr IV.SIG Q8H [facility] Rx#: [id number] Oral 0 / 0 Tube Feeding 110 / 110 Output: Urine Amount (Catheter) 700 / 700 Straight 700 / 700 Other: Date of Last Bowel Movement 07/14/18 07/14/18 # Bowel Movements 3 # Incontinent Bowel Movements 3 GENERAL: Elderly AA male, NAD SKIN: Warm and dry. HEAD: Normocephalic. EYES: No scleral icterus. No injection or drainage. NECK: Supple, trachea midline. No JVD or lymphadenopathy. CARDIOVASCULAR: Regular rate and rhythm without murmurs, gallops, or rubs. RESPIRATORY: Breath sounds equal bilaterally. No accessory muscle use. GASTROINTESTINAL: Abdomen soft, non-tender,distended. MUSCULOSKELETAL: No cyanosis, or edema. BACK: Nontender without obvious deformity. No CVA tenderness. - Urinary Catheter Management Indwelling Urethral Catheter Cath placed during this visit: yes, but has since been removed by the nurse Reason for continuing: Decision to DC catheter Insertion date: 07/13/18 Insertion time: 20:00 Removal date: 07/13/18 Removal time: 13:30 Straight Cath placed during this visit: no Assessment and Plan - Plan IMPRESSION: Hypercapnoic RF, Reintubated COPD exac AMS improved 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 PLAN: Aerosol nebs Cont Abx Supplement 02 Monitor BS NGT to suction
[2018-07-14 22:27] LABS: Amorphous Sediment,Urine Few /hpf; Bilirubin,Urine Negative (Negative); Clarity,Urine Hazy (Clear); Glucose,Urine (UA) Negative (Negative); Leukocyte Esterase,Urine Trace (Negative); Nitrite,Urine Negative (Negative); Specific Gravity,Urine 1.009 (1.002-1.035)
[2018-07-14 22:28] LABS: Color,Urine Yellow (Yellw/Straw)
[2018-07-15] MEDS: Pantoprazole Inj 40 MG Vial IV.PUSH SCH ×2 (02:23→14:18)
[2018-07-15] MEDS: Oral Hygiene Kit OROPHARYNG SCH ×3 (03:29→18:29)
[2018-07-15] MEDS: Insulin NovoLIN Regular Correctional Sugar Inj SQ SCH ×5 (03:29→20:59)
[2018-07-15] MEDS: Albumin Human 25% Inj 100 ML IV.SIG SCH (03:31)
--- NOTE | 2018-07-15 07:52 | P.PNCC ---
Subjective Subjective Remarks/Hospital Course: Mr. Curry is a 73-year-old -[place] male with past medical history significant for COPD on 3 L nasal cannula, hypertension, hyperlipidemia and anxiety who was admitted to the hospitalist service on 06/19/2018 for worsening shortness of breath due to COPD exacerbation. He was treated with IV Solu- Medrol, IV antibiotics, breathing treatments gradually improved. Patient was also complaining about dyspepsia and underwent EGD by GI yesterday. Per report the EGD was normal but patient developed worsening shortness of breath and COPD exacerbation postprocedure, possibly from aspiration after sedated. Two ABGs done yesterday showed hypercapnic respiratory failure second 1 was on BiPAP and this was improved with pH 7.3 with PCO2 of 74. Patient remained on BiPAP overnight however was noticed to be lethargic today a.m., stat ABG showed pH of 7.21 PCO2 110 PO2 88 while on BiPAP. Patient was lethargic intermittently dozing off due to CO2 narcosis. Critical care medicine was consulted and I immediately evaluated the patient. Patient had obviously failed BiPAP I proceeded with endotracheal intubation placed on mechanical ventilation. Postintubation I have ordered single dose of Solu-Medrol 125 mg x1 continue Solu -Medrol 60 every 8, discontinue ceftriaxone and start cefepime 2 g IV every 8 hours continue azithromycin. Add budesonide inhaled, placed on scheduled DuoNeb every 4 hours and as needed. 06/27: Patient was intubated yesterday for severe hypercapnic respiratory failure. Currently remains intubated sedated and intubated remains diminished bilaterally. Heavily sedated for ventilator synchrony 06/28: Urine output significantly improved with fluid resuscitation. Creat down trending now 2 from 2.3, UO >3.3 L. Remains intubated sedated. Will initiate daily sedation vacation and CPAP trials 06/29: More awake today tolerating CPAP trials intermittently follows commands but gets agitated/frustrated fast. Urine output remains excellent creatinine 1.4. However sodium increasing 158 today. Night recorder helper seismograph had changed fluid to D5 W for free water replacement. Due to hypoglycemia will change to quarter normal saline at 150 mL/h repeat CMP in the afternoon 06/30 Patient was extubated yesterday. Awake 07/01 Patient is lying in bed in NAD. T: 100.5 07/02: Intubated early this morning due to acute hypoxic respiratory failure. Central line placed due to hypotension. Plan for GI perform endoscopic decompression of this large bowel today. Arousable and does follow commands. Placed on argatroban 07/03: Currently, intubated with borderline blood pressure. Central line placed yesterday due to hypotension. Did not move bowels despite 1 L of fluid from colonoscopy yesterday and multiple laxatives provided. See orders for additional laxatives today. Might need neostigmine. 07/04 Patient remains intubated and sedated with Diprivan. Given Neostigmine last night. KUB this morning showed colonic ileus. Afebrile. On Argatroban. 07/05 No events overnight, sedated with Diprivan and intubated. Off Argatroban. 07/06 Patient remains intubated and sedated. Afebrile. 07/07 Patient remains intubated, s/p decompressive colonoscopy yesterday. Awake. 07/08 Patient s/p extubation yesterday. Awake and alert. 07/09 Patient is awake, alert lying in bed in NAD. Afebrile. 07/10 Patient is awake and alert, Afebrile. 07/11 Patient s/p decompressive colonoscopy yesterday. Afebrile. On Lasix drip.( UOP: 2800ml overnight). Cr: 3.0 from 2.25. 07/12 Patient is awake, alert given Neostigmine overnight. NGT to LIWS, off Lasix drip. SUBJECTIVE: 07/13: Resting comfortably in bed in no acute distress. 3 bowel movements documented. Remains n.p.o. Bladder pressures around 6. Potassium being replaced. Remains anemic around 7. 07/14 Patient is lying in bed in NAD. Afebrile. 07/15 No events overnight. Afebrile. Objective Vital Signs / I&O: Vital Signs 07/14/18 08:00 07/14/18 09:00 07/14/18 10:00 Temperature 98 F Pulse Rate 96 H 105 H 101 H Respiratory Rate 14 20 16 Blood Pressure 133/68 121/65 117/65 Pulse Oximetry 100 97 98 07/14/18 11:00 07/14/18 12:00 07/14/18 12:01 Temperature Pulse Rate 96 H 94 H 92 H Respiratory Rate 29 H 21 22 Blood Pressure 108/60 143/64 H Pulse Oximetry 96 96 97 07/14/18 13:00 07/14/18 14:00 07/14/18 15:00 Temperature Pulse Rate 98 H 97 H 92 H Respiratory Rate 18 20 22 Blood Pressure 125/58 L 141/63 H 130/60 Pulse Oximetry 99 98 98 07/14/18 16:00 07/14/18 17:01 07/14/18 18:00 Temperature Pulse Rate 97 H 94 H 92 H Respiratory Rate 21 19 13 Blood Pressure 141/60 H 95/56 L 135/98 H Pulse Oximetry 99 93 L 98 07/14/18 19:00 07/14/18 20:00 07/14/18 22:00 Temperature 98.3 F Pulse Rate 104 H 100 H 101 H Respiratory Rate 23 18 Blood Pressure 134/63 135/69 Pulse Oximetry 99 99 07/14/18 23:25 07/15/18 00:00 07/15/18 02:00 Temperature 98.1 F Pulse Rate 95 H 93 H 86 Respiratory Rate 17 16 Blood Pressure 117/61 Pulse Oximetry 96 99 07/15/18 03:41 07/15/18 04:00 07/15/18 06:00 Temperature 98.4 F Pulse Rate 101 H 101 H 101 H Respiratory Rate 18 21 Blood Pressure 128/68 Pulse Oximetry 98 Intake & Output 07/14/18 07/15/18 07/15/18 18:59 06:59 18:59 Intake Total 1310 / 1310 300 / 300 Output Total 670 / 670 700 / 700 Balance 640 / 640 -400 / -400 Weight 92 kg Intake: IV 1310 / 1310 200 / 200 Flexbumin 25% Inj 100 ML @ 60 100 / 100 100 / 100 mls/hr IV.SIG Q12H WOLF Rx#: [id number] Calcium Gluconate Inj 1 GM In 110 / 110 NS Inj 100 ML @ 110 mls/hr IV. SIG ONCE ONE Rx#:[id number] Potassium Chlor 20 mEq/NACL 0. 1000 / 1000 45% Inj 1,000 ML @ 100 mls/hr IV.SIG .Q10H WOLF Rx#:[id number] KCl 20 mEq Premix Inj 20 meq In 100 / 100 100 / 100 100 ml @ 50 mls/hr IV.SIG Q2H WOLF Rx#:[id number] Oral 0 / 0 Water Bolus Amount 100 / 100 Output: Urine Amount (Catheter) 650 / 650 700 / 700 Indwelling Urethral Catheter 700 / 700 Straight 650 / 650 Gastric Drainage Right Nare Nasogastric Tube Other: Date of Last Bowel Movement 07/14/18 07/15/18 # Incontinent Bowel Movements 3 1 Result Diagrams: 07/15/18 08:01 07/15/18 08:01 Other Results: Laboratory Results - last 12 hr 07/14/18 07/14/18 07/14/18 20:56 20:58 21:55 Potassium 3.4 L POC Glucose 177 H Urine Color Yellow Urine Clarity Hazy H Urine pH 5.0 Ur Specific [place] 1.009 Urine Protein 30 H Urine Glucose (UA) Negative Urine Ketones Trace H Urine Occult Blood Large H Urine Nitrate Negative Urine Bilirubin Negative Urine Urobilinogen Less than 2 Ur Leukocyte Esterase Trace H Urine RBC 4 H Urine WBC 3 Amorphous Sediment Few H Micro UA Comment Cath-culture not ind Ur Microscopic Review Not Reportable Urine Culture Comments Cath-cult not ind 07/14/18 07/15/18 23:31 03:27 Potassium POC Glucose 159 H 123 H Urine Color Urine Clarity Urine pH Ur Specific [place] Urine Protein Urine Glucose (UA) Urine Ketones Urine Occult Blood Urine Nitrate Urine Bilirubin Urine Urobilinogen Ur Leukocyte Esterase Urine RBC Urine WBC Amorphous Sediment Micro UA Comment Ur Microscopic Review Urine Culture Comments Imaging: Abdomen Ultrasound 06/21/18 00:00 CONCLUSION: 1. No ascites is identified within the abdomen. Abdomen/Bladder Ultrasound 06/28/18 00:00 CONCLUSION: 1. Echogenic kidneys characteristic of medical renal disease. No hydronephrosis. Bladder decompressed by [place] Chest CTA 07/02/18 00:00 CONCLUSION: 1. No pulmonary embolus. 2. Diffuse but basilar predominant bilateral airspace disease. 3. Endotracheal and endobronchial secretions are demonstrated. 4. Moderate emphysema. 5. Left ventricular hypertrophy. Venous Doppler Study 07/02/18 00:00 CONCLUSION: 1. Limited, no evidence for thrombosis. Abdomen/Pelvis CT 07/10/18 08:31 CONCLUSION: 1. There is gas and fluid distending the colon. The patient has a rectal tube in place however the rectal tube is kinked back on itself and occluded. The overall size of the colon has mildly increased when compared to previous exam. The small bowel is normal in caliber. 2. Interval development of a small left basilar effusion and atelectasis. Chest X-Ray 07/10/18 08:42 CONCLUSION: Mild patchy bilateral lung base opacity likely representing atelectasis unchanged. Small left pleural effusion now seen. Abdomen X-Ray 07/14/18 06:00 CONCLUSION: Distended air-filled colon. Ileus is the most likely etiology for this pattern. Objective Remarks: GENERAL: Patient is 73 yo lying in bed in NAD SKIN: Warm and dry. HEAD: Normocephalic. EYES: No scleral icterus. No injection or drainage. NECK: Supple, trachea midline. No JVD or lymphadenopathy. CARDIOVASCULAR:tachycardic without murmurs, gallops, or rubs. RESPIRATORY: B/l equal air entry GASTROINTESTINAL: Abdomen distended. Protuberant. hypoactive BS MUSCULOSKELETAL: 1-2+ bilateral upper and lower extremity peripheral edema. Neuro: Awake and alert Assessment and Plan - Assessment and Plan Plan: ASSESSMENT: Acute hypercapnic respiratory failure Acute COPD exacerbation Altered mental status due to CO2 narcosis Acute kidney injury/failure Hypertension Leukocytosis Hyperglycemia COPD Hypernatremia Hypopotassemia Normocytic anemia Thrombocytopenia Hyperphosphatemia Colonic ileus PLAN: NEURO: -Monitor neuro status, avoid sedatives -Awake and alert RESP: -Continue with oxygen keep sats >92% -Extubated 06/29. Reintubated 07/02 extubated 07/07 -DuoNeb every 4 hours scheduled and butyryl aerosols every 2 hours as needed -Methylprednisolone succinate 40 mg daily -Inhaled budesonide -NIPPV PRN for resp distress -07/02 CTA chest:No PE, bibasilar air space disease -07/02 Doppler US LE negative DVT -CXR 07/10: Mild patchy bilateral lung base opacity likely representing atelectasis unchanged. Small left pleural effusion CV: - Monitor HR and BP keep MAP>65mmHg -Continue with BP meds, Cardizem 60mg Q6, GI: -Seen by Dr. Berrios ([facility]) for decompressive colonoscopy by Dr. Berrios. Discussed with Dr. Berrios. -KUB 07/14: Ileus -KUB 07/13: Stable nonobstructive colonic distention. Given Neostigmine 07/11. -Monitor IAP, Surgery is following- Dr. Oh -NGT to LIWS -s/p repeat decompressive colonoscopy 07/10 07/10: CT abd/pelvis: There is gas and fluid distending the colon. The overall size of the colon has mildly increased when compared to previous exam. The small bowel is normal in caliber. - 07/09 KUB abdomen: Improving bowel gas pattern consistent with improving adynamic ileus. -IV famotidine -Rectal tube to suction -CT abd/pelvis 07/02 :Colonic distention most likely representing moderate adynamic ileus. However, distal sigmoid colon is decompressed and a sigmoid stricture is conceivable but considered less likely -GI for decompression 07/02. On docusate sodium/senna 1 tablet twice daily, lactulose 30 cc 4 times daily, -KUB 07/04- colonic ileus, -KUB 07/05: No significant interval change with persistent diffuse air-filled distention of the colon suggesting ileus. -GI follow s/p decompressive colonoscopy 07/06 -KUB 07/07: Gaseous distention of multiple bowel loops has improved since previous study. FEN/: -Monitor renal function, I/O's, avoid nephrotoxins -Renal function continue to worse with Cr: 4.72 from 4.48 -Started on Albumin and Bumex drip 0.5mg/hr per renal if no improvements patient will need HD. Discussed with Dr. Figueroa. - Renal- Dr. Figueroa, ID: -Off abx monitor for signs of infections ( Fever, WBC) WBC is trending down. -Follow up on BC and urine cx from 07/11- NGTD -07/02 BC: NGTS, sputum cx 07/02:normal resp justyn -ID is following- Dr. Brown PRN HEME: -Monitor CBC, coags, Hep PLT is positive. ANNMARIE negative. Hematology is following. Off argatroban drip ENDO: -Electrolyte replacement per protocol -Sliding scale insulin medium scale PROPH: -Bilateral lower extremity SCDs. PPI , -Doppler US LE negative DVT 07/02 -Check Doppler US LUE . LINES: -Utilize peripheral IVs, Level 2
[2018-07-15] MEDS: Methylnaltrexone Inj 12 MG/0.6 ML Vial SQ SCH (08:07)
[2018-07-15] MEDS: MethylPREDNISolone Sod Succinate Inj 40 MG/ML Vial IV.PUSH SCH (08:07)
[2018-07-15] MEDS: dilTIAZem 60 MG Tablet PO SCH ×4 (08:07→20:49)
[2018-07-15] MEDS: Artificial Tears Opth Drops 15 ML Bottle EACH EYE SCH ×2 (08:08→18:29)
[2018-07-15] MEDS: Chlorhexidine 0.12% Oral Kit 15 ML UDC OROPHARYNG SCH ×2 (08:08→20:49)
[2018-07-15] MEDS: Bisacodyl 10 MG Supp RECTAL SCH (08:08)
[2018-07-15] MEDS: Hydrocortisone Acetate 25 MG Supp RECTAL SCH ×2 (08:08→20:49)
[2018-07-15 08:33] LABS: Hematocrit 21.8 % (39.0-51.0); Hemoglobin 7.2 gm/dL (13.0-17.0); Mean Corpuscular HGB Conc 32.8 % (32.0-36.0); Mean Corpuscular Hemoglobin 30.4 pg (27.0-34.0); Mean Corpuscular Volume 92.6 fL (80.0-100.0); Platelet Count 59 th/mm3 (150-450); Red Blood Count 2.36 mil/mm3 (4.50-5.90); Red Cell Distribution Width 15.9 % (11.6-17.2); White Blood Count 9.2 th/mm3 (4.0-11.0)
[2018-07-15 09:03] LABS: Albumin 3.6 g/dL (3.4-5.0); Calcium 6.9 mg/dL (8.5-10.1); Magnesium 1.9 mg/dL (1.5-2.5); Phosphorus 5.6 mg/dL (2.5-4.9); Potassium 3.4 meq/L (3.5-5.1)
--- NOTE | 2018-07-15 10:55 | XR ---
EXAM DATE: 07/15/2018 10:43 AM EST AGE/SEX: 73 years / Male INDICATIONS: Follow up ileus, abdominal distention CLINICAL DATA: This is the patient's subsequent encounter. Patient reports that signs and symptoms h ave been present for 3 days and indicates a pain score of Nonresponsive. MEDICAL/SURGICAL HISTORY: Chronic obstructive pulmonary disease. Hypertension. ileus None. COMPARISON: [facility], ABDOMEN 1V KUB, 07/14/2018. . FINDINGS: Persistent air-filled loops of small and large bowel are noted consistent with probable ileus. Clini elisabeth correlation is recommended. No free intraperitoneal air is noted. A nasogastric tube has its tip within the proximal stomach. CONCLUSION: Persistent air-filled loops of small and large bowel suggesting probably ileus. Clinical correlation is recommended. Electronically signed by: Abraham Arias MD 07/15/2018 10:53 AM EST
--- NOTE | 2018-07-15 12:25 | P.PNGI ---
Subjective Interval history: Patient appears weak and lethargic NG tube to low intermittent suction and distended abdomen continues unchanged <LucieLucy M - Last Filed: 07/15/18 12:52> Physical Exam Vital signs: Vital Signs 07/14/18 13:00 07/14/18 14:00 07/14/18 15:00 Temperature Pulse Rate 98 H 97 H 92 H Respiratory Rate 18 20 22 Blood Pressure 125/58 L 141/63 H 130/60 Pulse Oximetry 99 98 98 07/14/18 16:00 07/14/18 17:01 07/14/18 18:00 Temperature Pulse Rate 97 H 94 H 92 H Respiratory Rate 21 19 13 Blood Pressure 141/60 H 95/56 L 135/98 H Pulse Oximetry 99 93 L 98 07/14/18 19:00 07/14/18 20:00 07/14/18 22:00 Temperature 98.3 F Pulse Rate 104 H 100 H 101 H Respiratory Rate 23 18 Blood Pressure 134/63 135/69 Pulse Oximetry 99 99 07/14/18 23:25 07/15/18 00:00 07/15/18 02:00 Temperature 98.1 F Pulse Rate 95 H 93 H 86 Respiratory Rate 17 16 Blood Pressure 117/61 Pulse Oximetry 96 99 07/15/18 03:41 07/15/18 04:00 07/15/18 06:00 Temperature 98.4 F Pulse Rate 101 H 101 H 101 H Respiratory Rate 18 21 Blood Pressure 128/68 Pulse Oximetry 98 07/15/18 07:00 07/15/18 07:52 07/15/18 11:00 Temperature Pulse Rate 107 H 96 H Respiratory Rate 17 17 Blood Pressure Pulse Oximetry 98 Intake & Output 07/14/18 07/15/18 07/15/18 18:59 06:59 18:59 Intake Total 1310 / 1310 300 / 300 Output Total 670 / 670 700 / 700 Balance 640 / 640 -400 / -400 Weight 92 kg Intake: IV 1310 / 1310 200 / 200 Flexbumin 25% Inj 100 ML @ 60 100 / 100 100 / 100 mls/hr IV.SIG Q12H WOLF Rx#: [id number] Calcium Gluconate Inj 1 GM In 110 / 110 NS Inj 100 ML @ 110 mls/hr IV. SIG ONCE ONE Rx#:[id number] Potassium Chlor 20 mEq/NACL 0. 1000 / 1000 45% Inj 1,000 ML @ 100 mls/hr IV.SIG .Q10H WOLF Rx#:[id number] KCl 20 mEq Premix Inj 20 meq In 100 / 100 100 / 100 100 ml @ 50 mls/hr IV.SIG Q2H WOLF Rx#:[id number] Oral 0 / 0 Water Bolus Amount 100 / 100 Output: Urine Amount (Catheter) 650 / 650 700 / 700 Indwelling Urethral Catheter 700 / 700 Straight 650 / 650 Gastric Drainage 20 / 20 Right Nare Nasogastric Tube Other: Date of Last Bowel Movement 07/14/18 07/15/18 07/15/18 # Incontinent Bowel Movements 3 1 - Constitutional moderate distress, cachectic, disheveled - Routine HEENT Exam Head: Present: normocephalic ENT: Present: mucous membranes moist - Routine Neck Exam Present: supple - Routine Respiratory Exam Present: diminished air movement (Low volumes no audible wheezing) - Routine Cardiovascular Exam Present: S1, S2 (Distant) - Urinary Catheter Management Indwelling Urethral Catheter Cath placed during this visit: yes, but has since been removed by the nurse Reason for continuing: Acute urinary retention Insertion date: 07/14/18 Insertion time: 21:55 Removal date: 07/13/18 Removal time: 13:30 Straight Cath placed during this visit: no <Lucy Faulkner - Last Filed: 07/15/18 12:52> Vital signs: Vital Signs 07/14/18 22:00 07/14/18 23:25 07/15/18 00:00 Temperature 98.1 F Pulse Rate 101 H 95 H 93 H Respiratory Rate 17 16 Blood Pressure 117/61 Pulse Oximetry 96 99 07/15/18 02:00 07/15/18 03:41 07/15/18 04:00 Temperature 98.4 F Pulse Rate 86 101 H 101 H Respiratory Rate 18 21 Blood Pressure 128/68 Pulse Oximetry 98 07/15/18 06:00 07/15/18 07:00 07/15/18 07:52 Temperature Pulse Rate 101 H 107 H Respiratory Rate 17 Blood Pressure Pulse Oximetry 98 07/15/18 11:00 07/15/18 15:00 07/15/18 17:16 Temperature 97.6 F Pulse Rate 96 H 95 H 104 H Respiratory Rate 17 19 20 Blood Pressure 134/63 Pulse Oximetry 100 07/15/18 17:32 07/15/18 18:00 07/15/18 20:41 Temperature Pulse Rate 104 H 98 H 94 H Respiratory Rate 18 22 Blood Pressure 126/59 L Pulse Oximetry 96 97 Intake & Output 07/15/18 07/15/18 07/16/18 06:59 18:59 06:59 Intake Total 300 / 300 600 / 600 Output Total 700 / 700 760 / 760 Balance -400 / -400 -160 / -160 Weight 92 kg Intake: IV 200 / 200 500 / 500 Flexbumin 25% Inj 100 ML @ 60 100 / 100 mls/hr IV.SIG Q12H WOLF Rx#: [id number] Alburx 5% Inj 500 ML @ 250 mls/ 500 / 500 hr IV.SIG Q12H WOLF Rx#:[id number] KCl 20 mEq Premix Inj 20 meq In 100 / 100 100 ml @ 50 mls/hr IV.SIG Q2H WOLF Rx#:[id number] Oral 0 / 0 Water Bolus Amount 100 / 100 Anesthesia Amount 100 / 100 Output: Urine Amount (Catheter) 700 / 700 750 / 750 Indwelling Urethral Catheter 700 / 700 750 / 750 Gastric Drainage Right Nare Nasogastric Tube Other: Date of Last Bowel Movement 07/15/18 07/15/18 # Incontinent Bowel Movements 1 3 - Urinary Catheter Management Indwelling Urethral Catheter Cath placed during this visit: no Straight Cath placed during this visit: no <Richard Chauhan - Last Filed: 07/15/18 20:49> Results - Labs CBC & Chem 7: 07/15/18 08:01 07/15/18 08:01 Laboratory Results - last 24 hr 07/14/18 07/14/18 07/14/18 11:05 11:05 16:31 WBC RBC Hgb Hct MCV MCH MCHC RDW Plt Count MPV WBC Differential . Diff Scan Auto diff confirmed Platelet Estimate Low L Platelet Morphology Normal Sodium 144 Potassium 2.9 L* Chloride 103 Carbon Dioxide 23.2 Anion Gap 18 H BUN 76 H Creatinine 4.48 H Estimated GFR 16 L POC Glucose 158 H Random Glucose 128 H Calcium 6.8 L* Prot Corrected Calcium 7.6 L Phosphorus 5.6 H D Magnesium 1.9 Total Bilirubin 0.6 AST 53 H ALT 56 Alkaline Phosphatase 78 Total Protein 5.5 L Albumin 2.6 L Urine Color Urine Clarity Urine pH Ur Specific [place] Urine Protein Urine Glucose (UA) Urine Ketones Urine Occult Blood Urine Nitrate Urine Bilirubin Urine Urobilinogen Ur Leukocyte Esterase Urine RBC Urine WBC Amorphous Sediment Micro UA Comment Ur Microscopic Review Urine Culture Comments 07/14/18 07/14/18 07/14/18 20:56 20:58 21:55 WBC RBC Hgb Hct MCV MCH MCHC RDW Plt Count MPV WBC Differential Diff Scan Platelet Estimate Platelet Morphology Sodium Potassium 3.4 L Chloride Carbon Dioxide Anion Gap BUN Creatinine Estimated GFR POC Glucose 177 H Random Glucose Calcium Prot Corrected Calcium Phosphorus Magnesium Total Bilirubin AST ALT Alkaline Phosphatase Total Protein Albumin Urine Color Yellow Urine Clarity Hazy H Urine pH 5.0 Ur Specific [place] 1.009 Urine Protein 30 H Urine Glucose (UA) Negative Urine Ketones Trace H Urine Occult Blood Large H Urine Nitrate Negative Urine Bilirubin Negative Urine Urobilinogen Less than 2 Ur Leukocyte Esterase Trace H Urine RBC 4 H Urine WBC 3 Amorphous Sediment Few H Micro UA Comment Cath-culture not ind Ur Microscopic Review Not Reportable Urine Culture Comments Cath-cult not ind 07/14/18 07/15/18 07/15/18 23:31 03:27 08:01 WBC 9.2 RBC 2.36 L Hgb 7.2 L Hct 21.8 L MCV 92.6 MCH 30.4 MCHC 32.8 RDW 15.9 Plt Count 59 L MPV 10.0 WBC Differential Diff Scan Platelet Estimate Platelet Morphology Sodium Potassium Chloride Carbon Dioxide Anion Gap BUN Creatinine Estimated GFR POC Glucose 159 H 123 H Random Glucose Calcium Prot Corrected Calcium Phosphorus Magnesium Total Bilirubin AST ALT Alkaline Phosphatase Total Protein Albumin Urine Color Urine Clarity Urine pH Ur Specific [place] Urine Protein Urine Glucose (UA) Urine Ketones Urine Occult Blood Urine Nitrate Urine Bilirubin Urine Urobilinogen Ur Leukocyte Esterase Urine RBC Urine WBC Amorphous Sediment Micro UA Comment Ur Microscopic Review Urine Culture Comments 07/15/18 07/15/18 07/15/18 08:01 08:05 11:56 WBC RBC Hgb Hct MCV MCH MCHC RDW Plt Count MPV WBC Differential Diff Scan Platelet Estimate Platelet Morphology Sodium 142 Potassium 3.4 L Chloride 103 Carbon Dioxide 26.0 Anion Gap 13 BUN 80 H Creatinine 4.72 H Estimated GFR 15 L POC Glucose 118 H 150 H Random Glucose 98 Calcium 6.9 L* Prot Corrected Calcium 7.5 L Phosphorus 5.6 H Magnesium 1.9 Total Bilirubin 0.9 AST 47 H ALT 54 Alkaline Phosphatase 66 Total Protein 6.0 L Albumin 3.6 D Urine Color Urine Clarity Urine pH Ur Specific [place] Urine Protein Urine Glucose (UA) Urine Ketones Urine Occult Blood Urine Nitrate Urine Bilirubin Urine Urobilinogen Ur Leukocyte Esterase Urine RBC Urine WBC Amorphous Sediment Micro UA Comment Ur Microscopic Review Urine Culture Comments Microbiology 07/11/18 13:50 Blood - Peripheral Aerobic Blood Culture - Preliminary No growth in 4 days 07/11/18 13:50 Blood - Peripheral Anaerobic Blood Culture - Preliminary No growth in 4 days 07/11/18 02:48 Blood - Peripheral Aerobic Blood Culture - Preliminary No growth in 4 days 07/11/18 02:48 Blood - Peripheral Anaerobic Blood Culture - Preliminary No growth in 4 days - Imaging Impressions Abdomen X-Ray 07/15/18 00:00 CONCLUSION: Persistent air-filled loops of small and large bowel suggesting probably ileus. Clinical correlation is recommended. <Lucy Faulkner - Last Filed: 07/15/18 12:52> - Labs CBC & Chem 7: 07/15/18 08:01 07/15/18 08:01 Laboratory Results - last 24 hr 07/14/18 07/14/18 07/14/18 20:56 20:58 21:55 WBC RBC Hgb Hct MCV MCH MCHC RDW Plt Count MPV Haptoglobin PT INR APTT Fibrinogen Sodium Potassium 3.4 L Chloride Carbon Dioxide Anion Gap BUN Creatinine Estimated GFR POC Glucose 177 H Random Glucose Calcium Prot Corrected Calcium Phosphorus Magnesium Total Bilirubin AST ALT Alkaline Phosphatase Lactate Dehydrogenase Total Protein Albumin Urine Color Yellow Urine Clarity Hazy H Urine pH 5.0 Ur Specific [place] 1.009 Urine Protein 30 H Urine Glucose (UA) Negative Urine Ketones Trace H Urine Occult Blood Large H Urine Nitrate Negative Urine Bilirubin Negative Urine Urobilinogen Less than 2 Ur Leukocyte Esterase Trace H Urine RBC 4 H Urine WBC 3 Amorphous Sediment Few H Micro UA Comment Cath-culture not ind Ur Microscopic Review Not Reportable Urine Culture Comments Cath-cult not ind 07/14/18 07/15/18 07/15/18 23:31 03:27 08:01 WBC 9.2 RBC 2.36 L Hgb 7.2 L Hct 21.8 L MCV 92.6 MCH 30.4 MCHC 32.8 RDW 15.9 Plt Count 59 L MPV 10.0 Haptoglobin PT INR APTT Fibrinogen Sodium Potassium Chloride Carbon Dioxide Anion Gap BUN Creatinine Estimated GFR POC Glucose 159 H 123 H Random Glucose Calcium Prot Corrected Calcium Phosphorus Magnesium Total Bilirubin AST ALT Alkaline Phosphatase Lactate Dehydrogenase Total Protein Albumin Urine Color Urine Clarity Urine pH Ur Specific [place] Urine Protein Urine Glucose (UA) Urine Ketones Urine Occult Blood Urine Nitrate Urine Bilirubin Urine Urobilinogen Ur Leukocyte Esterase Urine RBC Urine WBC Amorphous Sediment Micro UA Comment Ur Microscopic Review Urine Culture Comments 07/15/18 07/15/18 07/15/18 08:01 08:05 11:56 WBC RBC Hgb Hct MCV MCH MCHC RDW Plt Count MPV Haptoglobin PT INR APTT Fibrinogen Sodium 142 Potassium 3.4 L Chloride 103 Carbon Dioxide 26.0 Anion Gap 13 BUN 80 H Creatinine 4.72 H Estimated GFR 15 L POC Glucose 118 H 150 H Random Glucose 98 Calcium 6.9 L* Prot Corrected Calcium 7.5 L Phosphorus 5.6 H Magnesium 1.9 Total Bilirubin 0.9 AST 47 H ALT 54 Alkaline Phosphatase 66 Lactate Dehydrogenase Total Protein 6.0 L Albumin 3.6 D Urine Color Urine Clarity Urine pH Ur Specific [place] Urine Protein Urine Glucose (UA) Urine Ketones Urine Occult Blood Urine Nitrate Urine Bilirubin Urine Urobilinogen Ur Leukocyte Esterase Urine RBC Urine WBC Amorphous Sediment Micro UA Comment Ur Microscopic Review Urine Culture Comments 07/15/18 07/15/18 07/15/18 12:25 12:25 16:16 WBC RBC Hgb Hct MCV MCH MCHC RDW Plt Count MPV Haptoglobin 150 PT 12.0 H INR 1.2 APTT 32.0 H Fibrinogen 208 L Sodium Potassium Chloride Carbon Dioxide Anion Gap BUN Creatinine Estimated GFR POC Glucose 184 H Random Glucose Calcium Prot Corrected Calcium Phosphorus Magnesium Total Bilirubin AST ALT Alkaline Phosphatase Lactate Dehydrogenase 436 H Total Protein Albumin Urine Color Urine Clarity Urine pH Ur Specific [place] Urine Protein Urine Glucose (UA) Urine Ketones Urine Occult Blood Urine Nitrate Urine Bilirubin Urine Urobilinogen Ur Leukocyte Esterase Urine RBC Urine WBC Amorphous Sediment Micro UA Comment Ur Microscopic Review Urine Culture Comments 07/15/18 19:36 WBC RBC Hgb Hct MCV MCH MCHC RDW Plt Count MPV Haptoglobin PT INR APTT Fibrinogen Sodium Potassium Chloride Carbon Dioxide Anion Gap BUN Creatinine Estimated GFR POC Glucose 195 H Random Glucose Calcium Prot Corrected Calcium Phosphorus Magnesium Total Bilirubin AST ALT Alkaline Phosphatase Lactate Dehydrogenase Total Protein Albumin Urine Color Urine Clarity Urine pH Ur Specific [place] Urine Protein Urine Glucose (UA) Urine Ketones Urine Occult Blood Urine Nitrate Urine Bilirubin Urine Urobilinogen Ur Leukocyte Esterase Urine RBC Urine WBC Amorphous Sediment Micro UA Comment Ur Microscopic Review Urine Culture Comments Microbiology 07/11/18 13:50 Blood - Peripheral Aerobic Blood Culture - Preliminary No growth in 4 days 07/11/18 13:50 Blood - Peripheral Anaerobic Blood Culture - Preliminary No growth in 4 days 07/11/18 02:48 Blood - Peripheral Aerobic Blood Culture - Preliminary No growth in 4 days 07/11/18 02:48 Blood - Peripheral Anaerobic Blood Culture - Preliminary No growth in 4 days - Imaging Impressions Abdomen X-Ray 07/15/18 00:00 CONCLUSION: Persistent air-filled loops of small and large bowel suggesting probably ileus. Clinical correlation is recommended. <Richard Chauhan - Last Filed: 07/15/18 20:49> Assessment and Plan - Plan Abdominal distention/ileus Pt with long standing history of constipation and is on daily narcotics at home, according to his significant other takes Aloe Vera for constipation but this has not been working Previously seen by our service earlier in this admission status post diagnostic colonoscopy on (07/02) The sigmoid colon was clear then there was significant amount of stool in the descending colon, transverse colon, and part of the sigmoid colon consistent with stool impaction. Attempted to disimpact the patient with fluid as much as possible. Rectum exam was normal. S/P decompressive colonoscopy (07/06) stool in cecum, large amount of water flush, stool section. Internal Hemorrhoids. Neostigmine given on 07/04 and 07/06 Relistor given on 07/02 and 07/03 Pt has also been on on Lactulose QID and Miralax daily CT abd/pelvis WO IV contrast (07/10) There is gas and fluid distending the colon. The patient has a rectal tube in place however the rectal tube is kinked back on itself and occluded. The overall size of the colon has mildly increased when compared to previous exam. The small bowel is normal in caliber. Decompressive colonoscopy (07/10) Ischemic ulcer cecum. Some semisolid stool suctioned. Marked decompression Rectal ulcer from rectal tube. Internal and external hemorrhoids (07/11) Pts abdomen some less distention and pain today. Still with NG to LIWS. Rectal tube discontinued yesterday. According to RN multiple loose stools today. Neostigmine has not been administered yet, waiting to receive it from pharmacy. 07/12/2018 last hemoglobin 7.4, WBC count 18.2, heart rate 104, abdomen continues to have mild to moderate distention and taut, mild improvement of abdominal bloating. Notes status post decompressive colonoscopy on 07/10, rectal tube. Patient input from GS. Who is continuing to monitor labs and any resolution to patient's chronic ileus. Mild gradual improvement , continues to require intensive care setting 07/13/2018 patient appears more lethargic today and gradual decline in hemoglobin noted was 7.4 now 7 mucous membranes pale. Being followed per general surgery for his chronic ileus, conservative medical management but may want to consider decompressive cecostomy. Multiple colonoscopies performed but no long-term improvement noted. Consider palliative care consult to review long -term and short-term goals with patient if able and POA/family. Measuring loose liquid stool, only 60 cc output noted even with fleets enema. KUB performed on 07/12/2018 shows chronic ileus no acute changes 07/14/2018 patient continues with lethargy mild increase in hemoglobin 7.6 but no GI bleeding for now. Diminished bowel sounds again over the past 24 hours and Nepro feedings have been turned off due to increased abdominal distention. Connected again to low intermittent suction. KUB on 07/13/2018 showed stable colonic ileus. Appreciate consult Dr. Berrios pending. Multiple compressive colonoscopies are effective only temporarily. Patient might benefit from cecostomy. Also may consider palliative care consult as patient's generalized condition appears to be deteriorating diagnostic colonoscopy on (07/02) The sigmoid colon was clear then there was significant amount of stool in the descending colon, transverse colon, and part of the sigmoid colon consistent with stool impaction. Attempted to disimpact the patient with fluid as much as possible. Rectum exam was normal. S/P decompressive colonoscopy (07/06) stool in cecum, large amount of water flush, stool section. Internal Hemorrhoids. 07/15/2018 patient continues to be weak and fatigued pale mucous membranes, KUB still shows chronic colonic ileus. Colorectal surgical consult with Dr. Berrios , saw patient this past evening and spoke with patient's girlfriend and sister. According to nursing staff recommended colonoscopy, pending approval for now. From a GI perspective no further routine procedures to offer. Supportive care. GI will see patient as needed or reconsult. Patient has had long-term narcotic use, consider no narcotics. Plan NG tube, diet n.p.o., low intermittent suction Monitor labs PPI Bowel regimen Supportive care Patient was seen per myself and Dr. Chauhan, note was written on his behalf <Lucy Faulkner - Last Filed: 07/15/18 12:52> - Plan patient was seen and examined, agree with above note, Dr. Berrios will do colonoscopy today, continue current care, plan depends on colonoscopy finding by Dr. Berrios. <Richard Chauhan - Last Filed: 07/15/18 20:49>
--- NOTE | 2018-07-15 12:30 | P.PNNP ---
Subjective Interval history: Patient is a 73-year-old with abdominal distention acute renal failure Physical Exam Vital signs: Vital Signs 07/14/18 13:00 07/14/18 14:00 07/14/18 15:00 Temperature Pulse Rate 98 H 97 H 92 H Respiratory Rate 18 20 22 Blood Pressure 125/58 L 141/63 H 130/60 Pulse Oximetry 99 98 98 07/14/18 16:00 07/14/18 17:01 07/14/18 18:00 Temperature Pulse Rate 97 H 94 H 92 H Respiratory Rate 21 19 13 Blood Pressure 141/60 H 95/56 L 135/98 H Pulse Oximetry 99 93 L 98 07/14/18 19:00 07/14/18 20:00 07/14/18 22:00 Temperature 98.3 F Pulse Rate 104 H 100 H 101 H Respiratory Rate 23 18 Blood Pressure 134/63 135/69 Pulse Oximetry 99 99 07/14/18 23:25 07/15/18 00:00 07/15/18 02:00 Temperature 98.1 F Pulse Rate 95 H 93 H 86 Respiratory Rate 17 16 Blood Pressure 117/61 Pulse Oximetry 96 99 07/15/18 03:41 07/15/18 04:00 07/15/18 06:00 Temperature 98.4 F Pulse Rate 101 H 101 H 101 H Respiratory Rate 18 21 Blood Pressure 128/68 Pulse Oximetry 98 07/15/18 07:00 07/15/18 07:52 07/15/18 11:00 Temperature Pulse Rate 107 H 96 H Respiratory Rate 17 17 Blood Pressure Pulse Oximetry 98 Intake & Output 07/14/18 07/15/18 07/15/18 18:59 06:59 18:59 Intake Total 1310 / 1310 300 / 300 Output Total 670 / 670 700 / 700 Balance 640 / 640 -400 / -400 Weight 92 kg Intake: IV 1310 / 1310 200 / 200 Flexbumin 25% Inj 100 ML @ 60 100 / 100 100 / 100 mls/hr IV.SIG Q12H WOLF Rx#: [id number] Calcium Gluconate Inj 1 GM In 110 / 110 NS Inj 100 ML @ 110 mls/hr IV. SIG ONCE ONE Rx#:[id number] Potassium Chlor 20 mEq/NACL 0. 1000 / 1000 45% Inj 1,000 ML @ 100 mls/hr IV.SIG .Q10H WOLF Rx#:[id number] KCl 20 mEq Premix Inj 20 meq In 100 / 100 100 / 100 100 ml @ 50 mls/hr IV.SIG Q2H WOLF Rx#:[id number] Oral 0 / 0 Water Bolus Amount 100 / 100 Output: Urine Amount (Catheter) 650 / 650 700 / 700 Indwelling Urethral Catheter 700 / 700 Straight 650 / 650 Gastric Drainage 20 / 20 Right Nare Nasogastric Tube 20 / 20 Other: Date of Last Bowel Movement 07/14/18 07/15/18 07/15/18 # Incontinent Bowel Movements 3 1 Narrative: GENERAL: Patient appears sick NG tube in place SKIN: Warm and dry. NECK: Supple, trachea midline. No JVD or lymphadenopathy. CARDIOVASCULAR: Regular rate and rhythm without murmurs, gallops, or rubs. RESPIRATORY: Breath sounds diminished at bases bilaterally. GASTROINTESTINAL: Abdomen distended bowel sounds not active EXTREMITIES: 1-2+ edema NEUROLOGICAL: Awake, patient is slow to respond open eyes - Urinary Catheter Management Indwelling Urethral Catheter Cath placed during this visit: yes, but has since been removed by the nurse Reason for continuing: Acute urinary retention Insertion date: 07/14/18 Insertion time: 21:55 Removal date: 07/13/18 Removal time: 13:30 Straight Cath placed during this visit: no Assessment and Plan - Assessment (1) Acute renal failure Code(s): N17.9 - Acute kidney failure, unspecified Status: Acute (2) Anasarca Code(s): R60.1 - Generalized edema Status: Acute (3) Abdominal distention Code(s): R14.0 - Abdominal distension (gaseous) Status: Acute (4) Ileus Code(s): K56.7 - Ileus, unspecified Status: Acute - Plan ALLYSON with non-oliguric ATN Creatinine 3 -> 3.4, 4.44.7 patient urine output is low getting IV fluid 1/2 normal saline at 100 cc an hour with potassium supplement 20 MEQ Off lasix drip now 1350 cc UOP/24 hours. Ongoing peripheral edema. UOP remains low getting IV hydration, has abdominal distention again Continue to give albumin at Bumex drip discontinue IV fluid with potassium Give potassium supplement May need hemodialysis Will continue to monitor if does not resolve he may need dialysis support Continue to follow with GI and surgery for ileus Monitor BMP
[2018-07-15 13:19] LABS: INR 1.2 Ratio
[2018-07-15 13:29] LABS: Haptoglobin 150 mg/dL (30-200); Lactate Dehydrogenase 436 U/L (87-241)
[2018-07-15] MEDS: Albumin Human 5% Inj 500 ML IV.SIG SCH (14:17)
[2018-07-15] MEDS: Potassium Chlor 20 mEq Premix 20 MEQ/100 ML PIGGYBACK IV.SIG SCH ×2 (14:20→20:50)
[2018-07-15] MEDS ORDERED: Lidocaine PF 1% Inj 5 ML Syringe OTHER ONE (16:40)
[2018-07-15] MEDS ORDERED: Succinylcholine Inj 100 MG/5 ML Syringe IV.PUSH ONE (16:40)
--- NOTE | 2018-07-15 16:54 | P.PNGS ---
Subjective Interval history: Patient somewhat drowsy and confused. NGT is to suction. Dr. Harris saw him last night Physical Exam Vital signs: Vital Signs 07/14/18 17:01 07/14/18 18:00 07/14/18 19:00 Temperature Pulse Rate 94 H 92 H 104 H Respiratory Rate 19 13 23 Blood Pressure 95/56 L 135/98 H 134/63 Pulse Oximetry 93 L 98 99 07/14/18 20:00 07/14/18 22:00 07/14/18 23:25 Temperature 98.3 F Pulse Rate 100 H 101 H 95 H Respiratory Rate 18 17 Blood Pressure 135/69 Pulse Oximetry 99 96 07/15/18 00:00 07/15/18 02:00 07/15/18 03:41 Temperature 98.1 F Pulse Rate 93 H 86 101 H Respiratory Rate 16 18 Blood Pressure 117/61 Pulse Oximetry 99 07/15/18 04:00 07/15/18 06:00 07/15/18 07:00 Temperature 98.4 F Pulse Rate 101 H 101 H 107 H Respiratory Rate 21 17 Blood Pressure 128/68 Pulse Oximetry 98 07/15/18 07:52 07/15/18 11:00 07/15/18 15:00 Temperature Pulse Rate 96 H 95 H Respiratory Rate 17 19 Blood Pressure Pulse Oximetry 98 Intake & Output 07/14/18 07/15/18 07/15/18 18:59 06:59 18:59 Intake Total 1310 / 1310 300 / 300 Output Total 670 / 670 700 / 700 Balance 640 / 640 -400 / -400 Weight 92 kg Intake: IV 1310 / 1310 200 / 200 Flexbumin 25% Inj 100 ML @ 60 100 / 100 100 / 100 mls/hr IV.SIG Q12H WOLF Rx#: [id number] Calcium Gluconate Inj 1 GM In 110 / 110 NS Inj 100 ML @ 110 mls/hr IV. SIG ONCE ONE Rx#:[id number] Potassium Chlor 20 mEq/NACL 0. 1000 / 1000 45% Inj 1,000 ML @ 100 mls/hr IV.SIG .Q10H WOLF Rx#:[id number] KCl 20 mEq Premix Inj 20 meq In 100 / 100 100 / 100 100 ml @ 50 mls/hr IV.SIG Q2H WOLF Rx#:[id number] Oral 0 / 0 Water Bolus Amount 100 / 100 Output: Urine Amount (Catheter) 650 / 650 700 / 700 Indwelling Urethral Catheter 700 / 700 Straight 650 / 650 Gastric Drainage Right Nare Nasogastric Tube Other: Date of Last Bowel Movement 07/14/18 07/15/18 07/15/18 # Incontinent Bowel Movements 3 1 Narrative: NGT to suction Abd: distended, mild diffuse ttp - Urinary Catheter Management Indwelling Urethral Catheter Cath placed during this visit: yes, but has since been removed by the nurse Reason for continuing: Acute urinary retention Insertion date: 07/14/18 Insertion time: 21:55 Removal date: 07/13/18 Removal time: 13:30 Straight Cath placed during this visit: no Results - Labs 07/15/18 08:01 07/15/18 08:01 Laboratory Results - last 24 hr 07/14/18 07/14/18 07/14/18 20:56 20:58 21:55 WBC RBC Hgb Hct MCV MCH MCHC RDW Plt Count MPV Haptoglobin PT INR APTT Fibrinogen Sodium Potassium 3.4 L Chloride Carbon Dioxide Anion Gap BUN Creatinine Estimated GFR POC Glucose 177 H Random Glucose Calcium Prot Corrected Calcium Phosphorus Magnesium Total Bilirubin AST ALT Alkaline Phosphatase Lactate Dehydrogenase Total Protein Albumin Urine Color Yellow Urine Clarity Hazy H Urine pH 5.0 Ur Specific [place] 1.009 Urine Protein 30 H Urine Glucose (UA) Negative Urine Ketones Trace H Urine Occult Blood Large H Urine Nitrate Negative Urine Bilirubin Negative Urine Urobilinogen Less than 2 Ur Leukocyte Esterase Trace H Urine RBC 4 H Urine WBC 3 Amorphous Sediment Few H Micro UA Comment Cath-culture not ind Ur Microscopic Review Not Reportable Urine Culture Comments Cath-cult not ind 07/14/18 07/15/18 07/15/18 23:31 03:27 08:01 WBC 9.2 RBC 2.36 L Hgb 7.2 L Hct 21.8 L MCV 92.6 MCH 30.4 MCHC 32.8 RDW 15.9 Plt Count 59 L MPV 10.0 Haptoglobin PT INR APTT Fibrinogen Sodium Potassium Chloride Carbon Dioxide Anion Gap BUN Creatinine Estimated GFR POC Glucose 159 H 123 H Random Glucose Calcium Prot Corrected Calcium Phosphorus Magnesium Total Bilirubin AST ALT Alkaline Phosphatase Lactate Dehydrogenase Total Protein Albumin Urine Color Urine Clarity Urine pH Ur Specific [place] Urine Protein Urine Glucose (UA) Urine Ketones Urine Occult Blood Urine Nitrate Urine Bilirubin Urine Urobilinogen Ur Leukocyte Esterase Urine RBC Urine WBC Amorphous Sediment Micro UA Comment Ur Microscopic Review Urine Culture Comments 07/15/18 07/15/18 07/15/18 08:01 08:05 11:56 WBC RBC Hgb Hct MCV MCH MCHC RDW Plt Count MPV Haptoglobin PT INR APTT Fibrinogen Sodium 142 Potassium 3.4 L Chloride 103 Carbon Dioxide 26.0 Anion Gap 13 BUN 80 H Creatinine 4.72 H Estimated GFR 15 L POC Glucose 118 H 150 H Random Glucose 98 Calcium 6.9 L* Prot Corrected Calcium 7.5 L Phosphorus 5.6 H Magnesium 1.9 Total Bilirubin 0.9 AST 47 H ALT 54 Alkaline Phosphatase 66 Lactate Dehydrogenase Total Protein 6.0 L Albumin 3.6 D Urine Color Urine Clarity Urine pH Ur Specific [place] Urine Protein Urine Glucose (UA) Urine Ketones Urine Occult Blood Urine Nitrate Urine Bilirubin Urine Urobilinogen Ur Leukocyte Esterase Urine RBC Urine WBC Amorphous Sediment Micro UA Comment Ur Microscopic Review Urine Culture Comments 07/15/18 07/15/18 07/15/18 12:25 12:25 16:16 WBC RBC Hgb Hct MCV MCH MCHC RDW Plt Count MPV Haptoglobin 150 PT 12.0 H INR 1.2 APTT 32.0 H Fibrinogen 208 L Sodium Potassium Chloride Carbon Dioxide Anion Gap BUN Creatinine Estimated GFR POC Glucose 184 H Random Glucose Calcium Prot Corrected Calcium Phosphorus Magnesium Total Bilirubin AST ALT Alkaline Phosphatase Lactate Dehydrogenase 436 H Total Protein Albumin Urine Color Urine Clarity Urine pH Ur Specific [place] Urine Protein Urine Glucose (UA) Urine Ketones Urine Occult Blood Urine Nitrate Urine Bilirubin Urine Urobilinogen Ur Leukocyte Esterase Urine RBC Urine WBC Amorphous Sediment Micro UA Comment Ur Microscopic Review Urine Culture Comments - Imaging Imaging: ITS Impressions Abdomen Ultrasound 06/21/18 00:00 CONCLUSION: 1. No ascites is identified within the abdomen. Abdomen/Bladder Ultrasound 06/28/18 00:00 CONCLUSION: 1. Echogenic kidneys characteristic of medical renal disease. No hydronephrosis. Bladder decompressed by [facility] Chest CTA 07/02/18 00:00 CONCLUSION: 1. No pulmonary embolus. 2. Diffuse but basilar predominant bilateral airspace disease. 3. Endotracheal and endobronchial secretions are demonstrated. 4. Moderate emphysema. 5. Left ventricular hypertrophy. Venous Doppler Study 07/02/18 00:00 CONCLUSION: 1. Limited, no evidence for thrombosis. Abdomen/Pelvis CT 07/10/18 08:31 CONCLUSION: 1. There is gas and fluid distending the colon. The patient has a rectal tube in place however the rectal tube is kinked back on itself and occluded. The overall size of the colon has mildly increased when compared to previous exam. The small bowel is normal in caliber. 2. Interval development of a small left basilar effusion and atelectasis. Chest X-Ray 07/10/18 08:42 CONCLUSION: Mild patchy bilateral lung base opacity likely representing atelectasis unchanged. Small left pleural effusion now seen. Abdomen X-Ray 07/15/18 00:00 CONCLUSION: Persistent air-filled loops of small and large bowel suggesting probably ileus. Clinical correlation is recommended. 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 Persistent large bowel ileus and possiby also generalized ileus. Appreciate Dr. Harris input. I discussed the case with the patient and his family (Evita by phone) and recommend that Dr. Harris is a second surgical opinion and that he is our specialist in colon abnormalities and colon surgery. I have encouraged following his recommendations.
[2018-07-15] MEDS: Bumetanide Inj 25 MG/100 ML BAG IV.CONT SCH (18:33)
--- NOTE | 2018-07-15 19:00 | P.PNPL ---
Subjective Interval history: 73 YOAA male with COPD, 02 dependent Follows at [facility] Admitted with AMS, COPD exac On [place], denies sob NGT to suction. had decompression done by abd less distended Physical Exam Vital signs: Vital Signs 07/14/18 19:00 07/14/18 20:00 07/14/18 22:00 Temperature 98.3 F Pulse Rate 104 H 100 H 101 H Respiratory Rate 23 18 Blood Pressure 134/63 135/69 Pulse Oximetry 99 99 07/14/18 23:25 07/15/18 00:00 07/15/18 02:00 Temperature 98.1 F Pulse Rate 95 H 93 H 86 Respiratory Rate 17 16 Blood Pressure 117/61 Pulse Oximetry 96 99 07/15/18 03:41 07/15/18 04:00 07/15/18 06:00 Temperature 98.4 F Pulse Rate 101 H 101 H 101 H Respiratory Rate 18 21 Blood Pressure 128/68 Pulse Oximetry 98 07/15/18 07:00 07/15/18 07:52 07/15/18 11:00 Temperature Pulse Rate 107 H 96 H Respiratory Rate 17 17 Blood Pressure Pulse Oximetry 98 07/15/18 15:00 07/15/18 17:16 07/15/18 17:32 Temperature 97.6 F Pulse Rate 95 H 104 H 104 H Respiratory Rate 19 20 18 Blood Pressure 134/63 126/59 L Pulse Oximetry 100 96 Intake & Output 07/14/18 07/15/18 07/15/18 18:59 06:59 18:59 Intake Total 1310 / 1310 300 / 300 600 / 600 Output Total 670 / 670 700 / 700 Balance 640 / 640 -400 / -400 600 / 600 Weight 92 kg Intake: IV 1310 / 1310 200 / 200 500 / 500 Flexbumin 25% Inj 100 ML @ 60 100 / 100 100 / 100 mls/hr IV.SIG Q12H WOLF Rx#: [id number] Alburx 5% Inj 500 ML @ 250 mls/ 500 / 500 hr IV.SIG Q12H WOLF Rx#:[id number] Calcium Gluconate Inj 1 GM In 110 / 110 NS Inj 100 ML @ 110 mls/hr IV. SIG ONCE ONE Rx#:[id number] Potassium Chlor 20 mEq/NACL 0. 1000 / 1000 45% Inj 1,000 ML @ 100 mls/hr IV.SIG .Q10H WOLF Rx#:[id number] KCl 20 mEq Premix Inj 20 meq In 100 / 100 100 / 100 100 ml @ 50 mls/hr IV.SIG Q2H WOLF Rx#:[id number] Oral 0 / 0 Water Bolus Amount 100 / 100 Anesthesia Amount 100 / 100 Output: Urine Amount (Catheter) 650 / 650 700 / 700 Indwelling Urethral Catheter 700 / 700 Straight 650 / 650 Gastric Drainage 20 / Right Nare Nasogastric Tube Other: Date of Last Bowel Movement 07/14/18 07/15/18 07/15/18 # Incontinent Bowel Movements 3 1 GENERAL: Obese AA male, NAD SKIN: Warm and dry. HEAD: Normocephalic. EYES: No scleral icterus. No injection or drainage. NECK: Supple, trachea midline. No JVD or lymphadenopathy. CARDIOVASCULAR: Regular rate and rhythm without murmurs, gallops, or rubs. RESPIRATORY: Breath sounds equal bilaterally. No accessory muscle use. GASTROINTESTINAL: Abdomen soft, non-tender, distended. MUSCULOSKELETAL: No cyanosis, or edema. BACK: Nontender without obvious deformity. No CVA tenderness. - Urinary Catheter Management Indwelling Urethral Catheter Cath placed during this visit: yes, but has since been removed by the nurse Reason for continuing: Acute urinary retention Insertion date: 07/14/18 Insertion time: 21:55 Removal date: 07/13/18 Removal time: 13:30 Straight Cath placed during this visit: no Assessment and Plan - Plan IMPRESSION: Hypercapnoic RF, Reintubated COPD exac AMS improved 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 Abdomenal distension, s/p decompression. PLAN: Aerosol nebs Cont Abx Supplement 02 Monitor BS NGT to suction
--- NOTE | 2018-07-15 22:23 | MR ---
cc: Bethel Berrios MD DATE: 07/15/2018 PREOPERATIVE DIAGNOSIS: Colonic distention/colonic ileus. PROCEDURE: Colonoscopy to cecum with decompression of colonic ileus. POSTOPERATIVE DIAGNOSIS: Colonic distention/colonic ileus. SURGEON: Bethel Berrios MD DESCRIPTION OF PROCEDURE: After adequate general anesthesia, the patient was placed in the left lateral decubitus position. Rectal exam confirmed the emptiness of the rectal vault with quite a bit of liquid stool released with opening of the anal lumen. A Pentax colonoscope was then introduced into the rectum and advanced easily under direct vision, noting quite a bit of liquid stool throughout the entire colon. Over a liter of liquid stool was suctioned from the colonic lumen. The ileocecal valve and cecum appeared normal. There were no vascular abnormalities noted in the cecum. Colonoscope was then gradually withdrawn, noting generalized edema and swelling of the mucosa, but no luminal obstruction. No polyps were seen. Some diverticulosis was noted in the rectosigmoid. The abdomen was visibly softer after decompression of the liter of enteric contents. In the rectum, there was quite a bit of ulceration and excoriation of the distal rectal mucosa as well as along the dentate line, probably from his previous rectal tube. No active bleeding was seen. The patient tolerated the procedure quite well and was brought to the recovery room in stable condition. Bethel Berrios MD AHR/sv/do , 09:13 PM , 09:19 PM
--- NOTE | 2018-07-15 23:01 | US ---
EXAM DATE: 07/15/2018 10:49 PM EST AGE/SEX: 73 years / Male INDICATIONS: Left arm edema. CLINICAL DATA: This is the patient's initial encounter. Patient reports that signs and symptoms have been present for 3 days and indicates a pain score of 0/10. MEDICAL/SURGICAL HISTORY: Chronic obstructive pulmonary disease. Hypertension. None. COMPARISON: None.. FINDINGS: The study was limited and suboptimal. The patient would not allow the technologist to move his arm. The cephalic and basilic veins could not be visualized. Nonocclusive thrombus is present in the jugular vein. The subclavian, axillary and brachial veins were patent.. Other: None. CONCLUSION: 1. Limited suboptimal examination. 2. Nonocclusive thrombus in the jugular vein. Electronically signed by: Klever Bennett MD 07/15/2018 10:59 PM EST
[2018-07-16] MEDS: Insulin NovoLIN Regular Correctional Sugar Inj SQ SCH ×6 (00:14→20:05)
[2018-07-16] MEDS: Oral Hygiene Kit OROPHARYNG SCH ×4 (00:15→16:35)
[2018-07-16] MEDS: Albumin Human 5% Inj 500 ML IV.SIG SCH ×2 (00:15→14:03)
[2018-07-16] MEDS: Artificial Tears Opth Drops 15 ML Bottle EACH EYE SCH ×3 (00:15→16:35)
[2018-07-16] MEDS: Pantoprazole Inj 40 MG Vial IV.PUSH SCH ×2 (02:32→14:03)
[2018-07-16 07:56] LABS: Mean Corpuscular HGB Conc 32.5 % (32.0-36.0); Mean Corpuscular Hemoglobin 30.2 pg (27.0-34.0); Mean Corpuscular Volume 92.9 fL (80.0-100.0); Mean Platelet Volume 10.1 fL (7.0-11.0); Platelet Count 63 th/mm3 (150-450); Red Blood Count 2.06 mil/mm3 (4.50-5.90); Red Cell Distribution Width 16.3 % (11.6-17.2); White Blood Count 6.4 th/mm3 (4.0-11.0)
[2018-07-16 08:03] LABS: Hematocrit 19.2 % (39.0-51.0); Hemoglobin 6.2 gm/dL (13.0-17.0)
--- NOTE | 2018-07-16 08:30 | P.PNCC ---
Subjective Subjective Remarks/Hospital Course: Mr. Curry is a 73-year-old -[place] male with past medical history significant for COPD on 3 L nasal cannula, hypertension, hyperlipidemia and anxiety who was admitted to the hospitalist service on 06/19/2018 for worsening shortness of breath due to COPD exacerbation. He was treated with IV Solu- Medrol, IV antibiotics, breathing treatments gradually improved. Patient was also complaining about dyspepsia and underwent EGD by GI yesterday. Per report the EGD was normal but patient developed worsening shortness of breath and COPD exacerbation postprocedure, possibly from aspiration after sedated. Two ABGs done yesterday showed hypercapnic respiratory failure second 1 was on BiPAP and this was improved with pH 7.3 with PCO2 of 74. Patient remained on BiPAP overnight however was noticed to be lethargic today a.m., stat ABG showed pH of 7.21 PCO2 110 PO2 88 while on BiPAP. Patient was lethargic intermittently dozing off due to CO2 narcosis. Critical care medicine was consulted and I immediately evaluated the patient. Patient had obviously failed BiPAP I proceeded with endotracheal intubation placed on mechanical ventilation. Postintubation I have ordered single dose of Solu-Medrol 125 mg x1 continue Solu -Medrol 60 every 8, discontinue ceftriaxone and start cefepime 2 g IV every 8 hours continue azithromycin. Add budesonide inhaled, placed on scheduled DuoNeb every 4 hours and as needed. 06/27: Patient was intubated yesterday for severe hypercapnic respiratory failure. Currently remains intubated sedated and intubated remains diminished bilaterally. Heavily sedated for ventilator synchrony 06/28: Urine output significantly improved with fluid resuscitation. Creat down trending now 2 from 2.3, UO >3.3 L. Remains intubated sedated. Will initiate daily sedation vacation and CPAP trials 06/29: More awake today tolerating CPAP trials intermittently follows commands but gets agitated/frustrated fast. Urine output remains excellent creatinine 1.4. However sodium increasing 158 today. Night interpreter translator had changed fluid to D5 W for free water replacement. Due to hypoglycemia will change to quarter normal saline at 150 mL/h repeat CMP in the afternoon 06/30 Patient was extubated yesterday. Awake 07/01 Patient is lying in bed in NAD. T: 100.5 07/02: Intubated early this morning due to acute hypoxic respiratory failure. Central line placed due to hypotension. Plan for GI perform endoscopic decompression of this large bowel today. Arousable and does follow commands. Placed on argatroban 07/03: Currently, intubated with borderline blood pressure. Central line placed yesterday due to hypotension. Did not move bowels despite 1 L of fluid from colonoscopy yesterday and multiple laxatives provided. See orders for additional laxatives today. Might need neostigmine. 07/04 Patient remains intubated and sedated with Diprivan. Given Neostigmine last night. KUB this morning showed colonic ileus. Afebrile. On Argatroban. 07/05 No events overnight, sedated with Diprivan and intubated. Off Argatroban. 07/06 Patient remains intubated and sedated. Afebrile. 07/07 Patient remains intubated, s/p decompressive colonoscopy yesterday. Awake. 07/08 Patient s/p extubation yesterday. Awake and alert. 07/09 Patient is awake, alert lying in bed in NAD. Afebrile. 07/10 Patient is awake and alert, Afebrile. 07/11 Patient s/p decompressive colonoscopy yesterday. Afebrile. On Lasix drip.( UOP: 2800ml overnight). Cr: 3.0 from 2.25. 07/12 Patient is awake, alert given Neostigmine overnight. NGT to LIWS, off Lasix drip. SUBJECTIVE: 07/13: Resting comfortably in bed in no acute distress. 3 bowel movements documented. Remains n.p.o. Bladder pressures around 6. Potassium being replaced. Remains anemic around 7. 07/14 Patient is lying in bed in NAD. Afebrile. 07/15 No events overnight. Afebrile. 07/16: Resting in bed mild distress. Abdomen remains distended. Hemoglobin has dropped to 6.22 units of PRBC ordered. Patient underwent decompressive colonoscopy by Dr. Berrios for colonic ileus Objective Vital Signs / I&O: Vital Signs 07/15/18 11:00 07/15/18 15:00 07/15/18 17:16 Temperature 97.6 F Pulse Rate 96 H 95 H 104 H Respiratory Rate 17 19 20 Blood Pressure 134/63 Pulse Oximetry 100 07/15/18 17:32 07/15/18 18:00 07/15/18 20:00 Temperature 97.9 F Pulse Rate 104 H 98 H 96 H Respiratory Rate 18 17 Blood Pressure 126/59 L 138/64 Pulse Oximetry 96 96 07/15/18 20:41 07/15/18 22:00 07/16/18 00:00 Temperature 98.1 F Pulse Rate 94 H 100 H 88 Respiratory Rate 22 17 Blood Pressure 131/58 L Pulse Oximetry 97 99 07/16/18 00:33 07/16/18 02:00 07/16/18 04:00 Temperature 98.3 F Pulse Rate 97 H 104 H 104 H Respiratory Rate 22 19 Blood Pressure 149/72 H Pulse Oximetry 98 07/16/18 04:15 07/16/18 06:00 Temperature Pulse Rate 104 H 102 H Respiratory Rate 18 Blood Pressure Pulse Oximetry Intake & Output 07/15/18 07/16/18 07/16/18 18:59 06:59 18:59 Intake Total 600 / 600 700 / 700 Output Total 760 / 760 2375 / 2375 Balance -160 / -160 -1675 / -1675 Weight 95.5 kg Intake: IV 500 / 500 600 / 600 Alburx 5% Inj 500 ML @ 250 mls/ 500 / 500 500 / 500 hr IV.SIG Q12H WOLF Rx#:[id number] KCl 20 mEq Premix Inj 20 meq In 100 / 100 100 ml @ 50 mls/hr IV.SIG Q2H WOLF Rx#:[id number] Oral 0 / 0 Water Bolus Amount 100 / 100 Anesthesia Amount 100 / 100 Output: Urine Amount (Catheter) 750 / 750 2375 / 2375 Indwelling Urethral Catheter 750 / 750 2375 / 2375 Gastric Drainage Right Nare Nasogastric Tube Other: Date of Last Bowel Movement 07/15/18 07/15/18 # Bowel Movements 0 # Incontinent Bowel Movements 3 Result Diagrams: 07/16/18 07:06 07/15/18 08:01 Objective Remarks: GENERAL: Patient is 73 yo lying in bed in mild distress SKIN: Warm and dry. Pale HEAD: Normocephalic. EYES: No scleral icterus. No injection or drainage. NECK: Supple, trachea midline. No JVD or lymphadenopathy. CARDIOVASCULAR:tachycardic without murmurs, gallops, or rubs. RESPIRATORY: B/l equal air entry GASTROINTESTINAL: Abdomen distended. Protuberant. hypoactive BS MUSCULOSKELETAL: 1-2+ bilateral upper and lower extremity peripheral edema. Neuro: Awake and alert. Follows commands x4, generalized weakness. Normal speech Assessment and Plan - Assessment and Plan Plan: ASSESSMENT: Hypercapnic respiratory failure Acute COPD exacerbation Altered mental status due to CO2 narcosis Acute kidney injury/failure Anemia requiring transfusion Colonic ileus Hypertension Leukocytosis Hyperglycemia COPD Hypernatremia Hypopotassemia Normocytic anemia Thrombocytopenia Hyperphosphatemia PLAN: NEURO: -Monitor neuro status, avoid sedatives -Awake and alert RESP: -Continue with oxygen keep sats >92% -Extubated 06/29. Reintubated 07/02 extubated again 07/07 -DuoNeb every 4 hours scheduled and butyryl aerosols every 2 hours as needed -Methylprednisolone succinate 40 mg daily -Inhaled budesonide -NIPPV PRN for resp distress-hold off due to ileus and risk of aspiration -07/02 CTA chest:No PE, bibasilar air space disease. 07/02 Doppler US LE negative DVT -CXR 07/10: Mild patchy bilateral lung base opacity likely representing atelectasis unchanged. Small left pleural effusion CV: - Monitor HR and BP keep MAP>65mmHg -Continue with BP meds, Cardizem 60mg Q6, GI: -Seen by Dr. Berrios ([facility]) for decompressive colonoscopy by Dr. Berrios performed on 07/15/2018. Discussed with Dr. Berrios. -KUB 07/14: Ileus. Get follow-up KUB today -KUB 07/13: Stable nonobstructive colonic distention. Given Neostigmine 07/11. -Monitor IAP, Surgery is following- Dr. Oh. GI is following -NGT to LIWS -s/p repeat decompressive colonoscopy 07/10, and 1113 07/10: CT abd/pelvis: There is gas and fluid distending the colon. The overall size of the colon has mildly increased when compared to previous exam. The small bowel is normal in caliber. -IV famotidine -CT abd/pelvis 07/02 :Colonic distention most likely representing moderate adynamic ileus. However, distal sigmoid colon is decompressed and a sigmoid stricture is conceivable but considered less likely -GI for decompression 07/02. On docusate sodium/senna 1 tablet twice daily, lactulose 30 cc 4 times daily, FEN/: -Monitor renal function, I/O's, avoid nephrotoxins -Renal function continue to worse with Cr: 4.72 from 4.48. CMP is pending today -Started on Albumin and Bumex drip 0.5mg/hr per renal if no improvements patient will need HD. UO 3L in 24 hours -Renal- Dr. Figueroa, ID: -Off abx monitor for signs of infections ( Fever, WBC) WBC is trending down. -Follow up on BC and urine cx from 07/11- NGTD -07/02 BC: NGTS, sputum cx 07/02:normal resp justyn -ID is following- Dr. Brown PRN HEME: -Monitor CBC, coags, Hep PLT is positive. ANNMARIE negative. Hematology is following. Off argatroban drip -Hemoglobin has dropped to 6.2, transfuse 2 units PRBC today -We will make GI aware ENDO: -Electrolyte replacement per protocol -Sliding scale insulin medium scale PROPH: -Bilateral lower extremity SCDs. PPI , -Doppler US LE negative DVT 07/02 LINES: -Utilize peripheral IVs, Level 2
[2018-07-16 08:35] LABS: Albumin 3.6 g/dL (3.4-5.0); Carbon Dioxide 24.4 meq/L (21.0-32.0); Magnesium 1.6 mg/dL (1.5-2.5); Phosphorus 5.1 mg/dL (2.5-4.9); Potassium 3.3 meq/L (3.5-5.1); Total Protein 5.8 g/dL (6.4-8.2)
[2018-07-16] MEDS ORDERED: Sodium Chlor 0.9% Inj 250 ML IV.SIG SCH (09:00)
--- NOTE | 2018-07-16 09:17 | XR ---
EXAM DATE: 07/16/2018 9:13 AM EST AGE/SEX: 73 years / Male INDICATIONS: Evaluate lung status. Respiratory disease. CLINICAL DATA: This is the patient's subsequent encounter. Patient reports that signs and symptoms h ave been present for 4 - 6 days and indicates a pain score of Nonresponsive. MEDICAL/SURGICAL HISTORY: . Chronic obstructive pulmonary disease. Hypertension . COMPARISON: [facility] [place], CHEST 1V SINGLE AP, 07/10/2018. . FINDINGS: A single AP view of the chest demonstrates the lungs to be symmetrically aerated without evidence of mass, infiltrate or effusion except stable mild bibasilar atelectasis. The NG tube is in good positio n.. The cardiomediastinal contours are unremarkable. Osseous structures are intact. CONCLUSION: Mild bibasilar consolidations, presumably atelectasis is unchanged. Electronically signed by: Thuan Rain MD 07/16/2018 9:16 AM EST
[2018-07-16] MEDS: Chlorhexidine 0.12% Oral Kit 15 ML UDC OROPHARYNG SCH ×2 (09:30→20:05)
[2018-07-16] MEDS: Methylnaltrexone Inj 12 MG/0.6 ML Vial SQ SCH (09:39)
[2018-07-16] MEDS: MethylPREDNISolone Sod Succinate Inj 40 MG/ML Vial IV.PUSH SCH (09:40)
[2018-07-16] MEDS: Hydrocortisone Acetate 25 MG Supp RECTAL SCH ×2 (09:40→20:05)
[2018-07-16] MEDS: dilTIAZem 60 MG Tablet PO SCH ×4 (09:40→20:06)
[2018-07-16] MEDS: Bisacodyl 10 MG Supp RECTAL SCH (09:40)
--- NOTE | 2018-07-16 10:30 | P.PNNP ---
Subjective Interval history: Patient complain of abdominal pain, distention he did have a decompression yesterday, NG tube is in place, his hemoglobin has dropped, he wants to set up, he said he has been in bed for too long Physical Exam Vital signs: Vital Signs 07/15/18 11:00 07/15/18 15:00 07/15/18 17:16 Temperature 97.6 F Pulse Rate 96 H 95 H 104 H Respiratory Rate 17 19 20 Blood Pressure 134/63 Pulse Oximetry 100 07/15/18 17:32 07/15/18 18:00 07/15/18 20:00 Temperature 97.9 F Pulse Rate 104 H 98 H 96 H Respiratory Rate 18 17 Blood Pressure 126/59 L 138/64 Pulse Oximetry 96 96 07/15/18 20:41 07/15/18 22:00 07/16/18 00:00 Temperature 98.1 F Pulse Rate 94 H 100 H 88 Respiratory Rate 22 17 Blood Pressure 131/58 L Pulse Oximetry 97 99 07/16/18 00:33 07/16/18 02:00 07/16/18 04:00 Temperature 98.3 F Pulse Rate 97 H 104 H 104 H Respiratory Rate 22 19 Blood Pressure 149/72 H Pulse Oximetry 98 07/16/18 04:15 07/16/18 06:00 07/16/18 08:29 Temperature Pulse Rate 104 H 102 H 110 H Respiratory Rate 18 16 Blood Pressure Pulse Oximetry 99 Intake & Output 07/15/18 07/16/18 07/16/18 18:59 06:59 18:59 Intake Total 600 / 600 700 / 700 Output Total 760 / 760 2375 / 2375 Balance -160 / -160 -1675 / -1675 Weight 95.5 kg Intake: IV 500 / 500 600 / 600 Alburx 5% Inj 500 ML @ 250 mls/ 500 / 500 500 / 500 hr IV.SIG Q12H [facility]OLF Rx#:[id number] KCl 20 mEq Premix Inj 20 meq In 100 / 100 100 ml @ 50 mls/hr IV.SIG Q2H [facility]OLF Rx#:[id number] Oral 0 / 0 Water Bolus Amount 100 / 100 Anesthesia Amount 100 / 100 Output: Urine Amount (Catheter) 750 / 750 2375 / 2375 Indwelling Urethral Catheter 750 / 750 2375 / 2375 Gastric Drainage Right Nare Nasogastric Tube Other: Date of Last Bowel Movement 07/15/18 07/15/18 # Bowel Movements 0 # Incontinent Bowel Movements 3 Narrative: GENERAL: Sick appearing patient with NG tube SKIN: Warm and dry. HEAD: Normocephalic. EYES: No scleral icterus. No injection or drainage. NECK: Supple, trachea midline. No JVD or lymphadenopathy. CARDIOVASCULAR: Regular rate and rhythm without murmurs, gallops, or rubs. RESPIRATORY: Breath sounds diminished air entry at bases GASTROINTESTINAL: Abdomen distended bowel sounds are hypoactive. EXTREMITIES: 2+/3 edema NEUROLOGICAL: Awake, alert, and oriented x 3. Non-focal. - Urinary Catheter Management Indwelling Urethral Catheter Cath placed during this visit: yes, but has since been removed by the nurse Reason for continuing: Acute urinary retention Insertion date: 07/14/18 Insertion time: 21:55 Removal date: 07/13/18 Removal time: 13:30 Straight Cath placed during this visit: no Assessment and Plan - Assessment (1) Acute renal failure Code(s): N17.9 - Acute kidney failure, unspecified Status: Acute (2) Anasarca Code(s): R60.1 - Generalized edema Status: Acute (3) Abdominal distention Code(s): R14.0 - Abdominal distension (gaseous) Status: Acute (4) Ileus Code(s): K56.7 - Ileus, unspecified Status: Acute - Plan [place] with non-oliguric ATN Creatinine 3 -> 3.4, 4.44.7-4.3 patient urine output is improved 3.1 L on Bumex and albumin/Bumex drip at 0.5 mg/h He has low hemoglobin need 2 units of packed red blood cells for hemoglobin 6.2 Replace potassium Ongoing peripheral edema. UOP Will continue to monitor if does not resolve he may need dialysis support Continue to follow with GI and surgery for ileus Monitor BMP
--- NOTE | 2018-07-16 11:00 | P.PNCS ---
Subjective Interval history: afebrile, VSS UO good - on drip some stool X1 Objective Result Diagrams: 07/16/18 07:06 07/16/18 07:06 Objective Remarks: PE alert Abd - soft, but tympanic, non -tender Assessment and Plan - Plan Imp: rigid proctoscope to bedside sit up supp may avoid surgery
[2018-07-16] MEDS: Potassium Chlor 20 mEq Premix 20 MEQ/100 ML PIGGYBACK IV.SIG SCH ×2 (14:04→17:00)
--- NOTE | 2018-07-16 16:57 | P.PNGI ---
Subjective Interval history: patient is resting in the bed a little more alert than before. Appreciate Dr. Berrios input and plan for rigid proctoscope to bedside may avoid surgery if at all possible. NG tube continues to low intermittent suction, abdomen appears mildly distended possible less over the past 24 hours, no appetite no nausea no vomiting Physical Exam Vital signs: Vital Signs 07/15/18 17:16 07/15/18 17:32 07/15/18 18:00 Temperature 97.6 F Pulse Rate 104 H 104 H 98 H Respiratory Rate 20 18 Blood Pressure 134/63 126/59 L Pulse Oximetry 100 96 07/15/18 20:00 07/15/18 20:41 07/15/18 22:00 Temperature 97.9 F Pulse Rate 96 H 94 H 100 H Respiratory Rate 17 22 Blood Pressure 138/64 Pulse Oximetry 96 97 07/16/18 00:00 07/16/18 00:33 07/16/18 02:00 Temperature 98.1 F Pulse Rate 88 97 H 104 H Respiratory Rate 17 22 Blood Pressure 131/58 L Pulse Oximetry 99 07/16/18 04:00 07/16/18 04:15 07/16/18 06:00 Temperature 98.3 F Pulse Rate 104 H 104 H 102 H Respiratory Rate 19 18 Blood Pressure 149/72 H Pulse Oximetry 98 07/16/18 08:00 07/16/18 08:15 07/16/18 08:29 Temperature Pulse Rate 113 H 112 H 110 H Respiratory Rate 19 19 16 Blood Pressure 144/71 H 135/62 Pulse Oximetry 95 97 99 07/16/18 08:30 07/16/18 08:45 07/16/18 09:00 Temperature Pulse Rate 107 H 112 H 116 H Respiratory Rate 17 20 20 Blood Pressure 135/69 144/72 H 147/73 H Pulse Oximetry 99 99 98 07/16/18 09:15 07/16/18 09:30 07/16/18 09:45 Temperature Pulse Rate 114 H 115 H 113 H Respiratory Rate 18 18 18 Blood Pressure 146/65 H 131/58 L 143/63 H Pulse Oximetry 98 98 98 07/16/18 10:00 07/16/18 10:16 07/16/18 10:30 Temperature Pulse Rate 116 H 110 H 110 H Respiratory Rate 19 18 21 Blood Pressure 137/63 142/66 H 131/65 Pulse Oximetry 97 99 98 07/16/18 10:45 07/16/18 11:00 07/16/18 11:15 Temperature Pulse Rate 108 H 108 H 108 H Respiratory Rate 18 23 19 Blood Pressure 140/70 139/64 146/67 H Pulse Oximetry 98 97 97 07/16/18 11:30 07/16/18 11:45 07/16/18 12:00 Temperature Pulse Rate 108 H 101 H 99 H Respiratory Rate 24 17 19 Blood Pressure 114/65 122/70 122/75 Pulse Oximetry 98 99 100 07/16/18 12:15 07/16/18 12:30 07/16/18 12:45 Temperature Pulse Rate 107 H 103 H 103 H Respiratory Rate 21 33 H 33 H Blood Pressure 135/68 144/73 H 154/76 H Pulse Oximetry 98 97 98 07/16/18 13:00 07/16/18 13:16 07/16/18 13:31 Temperature Pulse Rate 106 H 101 H 103 H Respiratory Rate 18 28 H 25 H Blood Pressure 138/65 154/69 H 159/76 H Pulse Oximetry 97 99 98 07/16/18 13:45 07/16/18 13:48 07/16/18 14:00 Temperature Pulse Rate 105 H 103 H 111 H Respiratory Rate 24 28 H 22 Blood Pressure 166/120 H 164/58 H Pulse Oximetry 98 98 96 07/16/18 14:01 07/16/18 14:09 07/16/18 14:16 Temperature 98.3 F Pulse Rate 108 H 109 H 108 H Respiratory Rate 20 16 21 Blood Pressure 153/69 H 153/69 H 139/64 Pulse Oximetry 97 97 99 07/16/18 14:30 07/16/18 14:45 07/16/18 15:00 Temperature 98.3 F Pulse Rate 109 H 108 H 109 H Respiratory Rate 22 21 21 Blood Pressure 142/68 H 148/67 H 132/54 L Pulse Oximetry 99 98 97 07/16/18 15:16 07/16/18 15:30 07/16/18 15:45 Temperature Pulse Rate 101 H 112 H 106 H Respiratory Rate 15 22 20 Blood Pressure 157/74 H 156/69 H 153/68 H Pulse Oximetry 98 96 98 07/16/18 16:00 07/16/18 16:46 Temperature 98.5 F Pulse Rate 105 H 102 H Respiratory Rate 22 22 Blood Pressure 149/68 H 165/74 H Pulse Oximetry 96 98 Intake & Output 07/15/18 07/16/18 07/16/18 18:59 06:59 18:59 Intake Total 600 / 600 700 / 700 1000 / 1000 Output Total 760 / 760 2375 / 2375 Balance -160 / -160 -1675 / -1675 1000 / 1000 Weight 95.5 kg Intake: IV 500 / 500 600 / 600 600 / 600 Alburx 5% Inj 500 ML @ 250 mls/ 500 / 500 500 / 500 500 / 500 hr IV.SIG Q12H [facility] Rx#:[id number] KCl 20 mEq Premix Inj 20 meq In 100 / 100 100 / 100 100 ml @ 50 mls/hr IV.SIG Q2H [facility]OLF Rx#:[id number] Oral 0 / 0 Water Bolus Amount 100 / 100 Anesthesia Amount 100 / 100 Intake (Blood Product) Amt 400 / 400 Rbc As-3 Leukoreduced Unit 400 / 400 [id number] Rbc As-3 Leukoreduced Unit 0 / 0 [id number] Output: Urine Amount (Catheter) 750 / 750 2375 / 2375 Indwelling Urethral Catheter 750 / 750 2375 / 2375 Gastric Drainage Right Nare Nasogastric Tube Other: Date of Last Bowel Movement 07/15/18 07/15/18 07/15/18 # Bowel Movements 0 # Incontinent Bowel Movements 3 - Constitutional no acute distress - Routine HEENT Exam Head: Present: normocephalic ENT: Present: mucous membranes moist - Routine Respiratory Exam Present: CTA bilaterally (unlabored) - Routine Cardiovascular Exam Present: RRR - Routine Abdominal Exam Present: normoactive bowel sounds - Routine Psychiatric Exam Present: normal affect - Urinary Catheter Management Indwelling Urethral Catheter Cath placed during this visit: yes, but has since been removed by the nurse Reason for continuing: Acute urinary retention Insertion date: 07/14/18 Insertion time: 21:55 Removal date: 07/13/18 Removal time: 13:30 Straight Cath placed during this visit: no Condom Cath placed during this visit: no Results - Labs CBC & Chem 7: 07/29/18 05:18 07/29/18 05:18 Laboratory Results - last 24 hr 07/13/18 07/15/18 07/16/18 14:30 19:36 00:01 WBC RBC Hgb Hct MCV MCH MCHC RDW Plt Count MPV Sodium Potassium Chloride Carbon Dioxide Anion Gap BUN Creatinine Estimated GFR POC Glucose 195 H 155 H Random Glucose Calcium Prot Corrected Calcium Phosphorus Magnesium Total Bilirubin AST ALT Alkaline Phosphatase Total Protein Albumin Blood Type Antibody Screen MTS Gel Crossmatch See Detail 07/16/18 07/16/18 07/16/18 04:36 07:06 07:06 WBC 6.4 RBC 2.06 L Hgb 6.2 L* Hct 19.2 L* MCV 92.9 MCH 30.2 MCHC 32.5 RDW 16.3 Plt Count 63 L MPV 10.1 Sodium 143 Potassium 3.3 L Chloride 104 Carbon Dioxide 24.4 Anion Gap 15 BUN 75 H Creatinine 4.38 H Estimated GFR 16 L POC Glucose 96 Random Glucose 88 Calcium 7.0 L* Prot Corrected Calcium 7.7 L Phosphorus 5.1 H Magnesium 1.6 Total Bilirubin 0.9 AST 45 H ALT 50 Alkaline Phosphatase 52 Total Protein 5.8 L Albumin 3.6 Blood Type Antibody Screen MTS Gel Crossmatch 07/16/18 07/16/18 11:05 14:02 WBC RBC Hgb Hct MCV MCH MCHC RDW Plt Count MPV Sodium Potassium Chloride Carbon Dioxide Anion Gap BUN Creatinine Estimated GFR POC Glucose 185 H Random Glucose Calcium Prot Corrected Calcium Phosphorus Magnesium Total Bilirubin AST ALT Alkaline Phosphatase Total Protein Albumin Blood Type O Positive Antibody Screen Negative MTS Gel Crossmatch See Detail Microbiology 07/11/18 13:50 Blood - Peripheral Aerobic Blood Culture - Final No growth in 5 days 07/11/18 13:50 Blood - Peripheral Anaerobic Blood Culture - Final No growth in 5 days 07/11/18 02:48 Blood - Peripheral Aerobic Blood Culture - Final No growth in 5 days 07/11/18 02:48 Blood - Peripheral Anaerobic Blood Culture - Final No growth in 5 days - Imaging Impressions Venous Doppler Study 07/15/18 00:00 CONCLUSION: 1. Limited suboptimal examination. 2. Nonocclusive thrombus in the jugular vein. Chest X-Ray 07/16/18 10:00 CONCLUSION: Mild bibasilar consolidations, presumably atelectasis is unchanged. Assessment and Plan - Plan 07/16/2018 patient is resting in the bed a little more alert than before. Appreciate Dr. Berrios input and plan for rigid proctoscope to bedside may avoid surgery if at all possible. NG tube continues to low intermittent suction, abdomen appears mildly distended possible less over the past 24 hours, no appetite no nausea no vomiting Plan Diet n.p.o. for now continue NG tube for now to low intermittent suction Plan of care based on Dr. Berrios responding Monitor labs Supportive care Further recommendations to follow Patient was seen per myself and Dr. Chauhan, note was written on his behalf
[2018-07-16] MEDS: Bumetanide Inj 25 MG/100 ML BAG IV.CONT SCH (17:00)
--- NOTE | 2018-07-16 19:13 | P.PNPL ---
Subjective Interval history: 73 YOAA male with COPD, 02 dependent Follows at [facility] Admitted with AMS, COPD exac On [place], denies sob NGT to suction. Abd distended, non tender family at Physical Exam Vital signs: Vital Signs 07/15/18 20:00 07/15/18 20:41 07/15/18 22:00 Temperature 97.9 F Pulse Rate 96 H 94 H 100 H Respiratory Rate 17 22 Blood Pressure 138/64 Pulse Oximetry 96 97 07/16/18 00:00 07/16/18 00:33 07/16/18 02:00 Temperature 98.1 F Pulse Rate 88 97 H 104 H Respiratory Rate 17 22 Blood Pressure 131/58 L Pulse Oximetry 99 07/16/18 04:00 07/16/18 04:15 07/16/18 06:00 Temperature 98.3 F Pulse Rate 104 H 104 H 102 H Respiratory Rate 19 18 Blood Pressure 149/72 H Pulse Oximetry 98 07/16/18 08:00 07/16/18 08:15 07/16/18 08:29 Temperature Pulse Rate 113 H 112 H 110 H Respiratory Rate 19 19 16 Blood Pressure 144/71 H 135/62 Pulse Oximetry 95 97 99 07/16/18 08:30 07/16/18 08:45 07/16/18 09:00 Temperature Pulse Rate 107 H 112 H 116 H Respiratory Rate 17 20 20 Blood Pressure 135/69 144/72 H 147/73 H Pulse Oximetry 99 99 98 07/16/18 09:15 07/16/18 09:30 07/16/18 09:45 Temperature Pulse Rate 114 H 115 H 113 H Respiratory Rate 18 18 18 Blood Pressure 146/65 H 131/58 L 143/63 H Pulse Oximetry 98 98 98 07/16/18 10:00 07/16/18 10:16 07/16/18 10:30 Temperature Pulse Rate 116 H 110 H 110 H Respiratory Rate 19 18 21 Blood Pressure 137/63 142/66 H 131/65 Pulse Oximetry 97 99 98 07/16/18 10:45 07/16/18 11:00 07/16/18 11:15 Temperature Pulse Rate 108 H 108 H 108 H Respiratory Rate 18 23 19 Blood Pressure 140/70 139/64 146/67 H Pulse Oximetry 98 97 97 07/16/18 11:30 07/16/18 11:45 07/16/18 12:00 Temperature Pulse Rate 108 H 101 H 99 H Respiratory Rate 24 17 19 Blood Pressure 114/65 122/70 122/75 Pulse Oximetry 98 99 100 07/16/18 12:15 07/16/18 12:30 07/16/18 12:45 Temperature Pulse Rate 107 H 103 H 103 H Respiratory Rate 21 33 H 33 H Blood Pressure 135/68 144/73 H 154/76 H Pulse Oximetry 98 97 98 07/16/18 13:00 07/16/18 13:16 07/16/18 13:31 Temperature Pulse Rate 106 H 101 H 103 H Respiratory Rate 18 28 H 25 H Blood Pressure 138/65 154/69 H 159/76 H Pulse Oximetry 97 99 98 07/16/18 13:45 07/16/18 13:48 07/16/18 14:00 Temperature Pulse Rate 105 H 103 H 111 H Respiratory Rate 24 28 H 22 Blood Pressure 166/120 H 164/58 H Pulse Oximetry 98 98 96 07/16/18 14:01 07/16/18 14:09 07/16/18 14:16 Temperature 98.3 F Pulse Rate 108 H 109 H 108 H Respiratory Rate 20 16 21 Blood Pressure 153/69 H 153/69 H 139/64 Pulse Oximetry 97 97 99 07/16/18 14:30 07/16/18 14:45 07/16/18 15:00 Temperature 98.3 F Pulse Rate 109 H 108 H 109 H Respiratory Rate 22 21 21 Blood Pressure 142/68 H 148/67 H 132/54 L Pulse Oximetry 99 98 97 07/16/18 15:16 07/16/18 15:30 07/16/18 15:45 Temperature Pulse Rate 101 H 112 H 106 H Respiratory Rate 15 22 20 Blood Pressure 157/74 H 156/69 H 153/68 H Pulse Oximetry 98 96 98 07/16/18 16:00 07/16/18 16:46 07/16/18 17:00 Temperature 98.5 F 98.3 F Pulse Rate 105 H 102 H 107 H Respiratory Rate 22 22 16 Blood Pressure 149/68 H 165/74 H 140/59 L Pulse Oximetry 96 98 98 07/16/18 18:00 Temperature Pulse Rate 99 H Respiratory Rate Blood Pressure Pulse Oximetry Intake & Output 07/16/18 07/16/18 07/17/18 06:59 18:59 06:59 Intake Total 800 / 800 1100 / 1100 Output Total 2375 / 2375 3000 / 3000 Balance -1575 / -1575 -1900 / -1900 Weight 95.5 kg Intake: IV 700 / 700 600 / 600 Alburx 5% Inj 500 ML @ 250 mls/ 500 / 500 500 / 500 hr IV.SIG Q12H [facility]OLF Rx#:[id number] KCl 20 mEq Premix Inj 20 meq In 200 / 200 100 / 100 100 ml @ 50 mls/hr IV.SIG Q2H WOLF Rx#:[id number] Oral 0 / 0 100 / 100 Water Bolus Amount 100 / 100 Intake (Blood Product) Amt 400 / 400 Rbc As-3 Leukoreduced Unit 400 / 400 [id number] Rbc As-3 Leukoreduced Unit 0 / 0 [id number] Output: Urine Amount (Catheter) 2375 / 2375 3000 / 3000 Indwelling Urethral Catheter 2375 / 2375 3000 / 3000 Other: Date of Last Bowel Movement 07/15/18 07/15/18 # Bowel Movements 0 GENERAL: Obese Elderly AA male, SKIN: Warm and dry. HEAD: Normocephalic. EYES: No scleral icterus. No injection or drainage. NECK: Supple, trachea midline. No JVD or lymphadenopathy. CARDIOVASCULAR: Regular rate and rhythm without murmurs, gallops, or rubs. RESPIRATORY: Breath sounds equal bilaterally. No accessory muscle use. GASTROINTESTINAL: Abdomen soft, non-tender, distended. MUSCULOSKELETAL: No cyanosis, or edema. BACK: Nontender without obvious deformity. No CVA tenderness. - Urinary Catheter Management Indwelling Urethral Catheter Cath placed during this visit: yes, but has since been removed by the nurse Reason for continuing: Acute urinary retention Insertion date: 07/14/18 Insertion time: 21:55 Removal date: 07/13/18 Removal time: 13:30 Straight Cath placed during this visit: no Assessment and Plan - Plan IMPRESSION: Hypercapnoic RF, Reintubated COPD exac AMS improved 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 Abdomenal distension, s/p decompression. PLAN: Aerosol nebs Cont Abx Supplement 02 Monitor BS NGT to suction CRS following DW family at BS.
--- NOTE | 2018-07-16 23:44 | P.PNONC ---
Subjective Interval history: Laying in bed Abdominal pain Abdominal distension Objective Vital Signs/Intake & Output: Vital Signs 07/16/18 00:00 07/16/18 00:33 07/16/18 02:00 Temperature 98.1 F Pulse Rate 88 97 H 104 H Respiratory Rate 17 22 Blood Pressure 131/58 L Pulse Oximetry 99 07/16/18 04:00 07/16/18 04:15 07/16/18 06:00 Temperature 98.3 F Pulse Rate 104 H 104 H 102 H Respiratory Rate 19 18 Blood Pressure 149/72 H Pulse Oximetry 98 07/16/18 08:00 07/16/18 08:15 07/16/18 08:29 Temperature Pulse Rate 113 H 112 H 110 H Respiratory Rate 19 19 16 Blood Pressure 144/71 H 135/62 Pulse Oximetry 95 97 99 07/16/18 08:30 07/16/18 08:45 07/16/18 09:00 Temperature Pulse Rate 107 H 112 H 116 H Respiratory Rate 17 20 20 Blood Pressure 135/69 144/72 H 147/73 H Pulse Oximetry 99 99 98 07/16/18 09:15 07/16/18 09:30 07/16/18 09:45 Temperature Pulse Rate 114 H 115 H 113 H Respiratory Rate 18 18 18 Blood Pressure 146/65 H 131/58 L 143/63 H Pulse Oximetry 98 98 98 07/16/18 10:00 07/16/18 10:16 07/16/18 10:30 Temperature Pulse Rate 116 H 110 H 110 H Respiratory Rate 19 18 21 Blood Pressure 137/63 142/66 H 131/65 Pulse Oximetry 97 99 98 07/16/18 10:45 07/16/18 11:00 07/16/18 11:15 Temperature Pulse Rate 108 H 108 H 108 H Respiratory Rate 18 23 19 Blood Pressure 140/70 139/64 146/67 H Pulse Oximetry 98 97 97 07/16/18 11:30 07/16/18 11:45 07/16/18 12:00 Temperature Pulse Rate 108 H 101 H 99 H Respiratory Rate 24 17 19 Blood Pressure 114/65 122/70 122/75 Pulse Oximetry 98 99 100 07/16/18 12:15 07/16/18 12:30 07/16/18 12:45 Temperature Pulse Rate 107 H 103 H 103 H Respiratory Rate 21 33 H 33 H Blood Pressure 135/68 144/73 H 154/76 H Pulse Oximetry 98 97 98 07/16/18 13:00 07/16/18 13:16 07/16/18 13:31 Temperature Pulse Rate 106 H 101 H 103 H Respiratory Rate 18 28 H 25 H Blood Pressure 138/65 154/69 H 159/76 H Pulse Oximetry 97 99 98 07/16/18 13:45 07/16/18 13:48 07/16/18 14:00 Temperature Pulse Rate 105 H 103 H 111 H Respiratory Rate 24 28 H 22 Blood Pressure 166/120 H 164/58 H Pulse Oximetry 98 98 96 07/16/18 14:01 07/16/18 14:09 07/16/18 14:16 Temperature 98.3 F Pulse Rate 108 H 109 H 108 H Respiratory Rate 20 16 21 Blood Pressure 153/69 H 153/69 H 139/64 Pulse Oximetry 97 97 99 07/16/18 14:30 07/16/18 14:45 07/16/18 15:00 Temperature 98.3 F Pulse Rate 109 H 108 H 109 H Respiratory Rate 22 21 21 Blood Pressure 142/68 H 148/67 H 132/54 L Pulse Oximetry 99 98 97 07/16/18 15:16 07/16/18 15:30 07/16/18 15:45 Temperature Pulse Rate 101 H 112 H 106 H Respiratory Rate 15 22 20 Blood Pressure 157/74 H 156/69 H 153/68 H Pulse Oximetry 98 96 98 07/16/18 16:00 07/16/18 16:46 07/16/18 17:00 Temperature 98.5 F 98.3 F Pulse Rate 105 H 102 H 107 H Respiratory Rate 22 22 16 Blood Pressure 149/68 H 165/74 H 140/59 L Pulse Oximetry 96 98 98 07/16/18 18:00 07/16/18 19:42 Temperature Pulse Rate 99 H 102 H Respiratory Rate 20 Blood Pressure Pulse Oximetry 98 Intake & Output 07/16/18 07/16/18 07/17/18 06:59 18:59 06:59 Intake Total 800 / 800 1100 / 1100 100 / 100 Output Total 2375 / 2375 3000 / 3000 Balance -1575 / -1575 -1900 / -1900 100 / 100 Weight 95.5 kg Intake: IV 700 / 700 600 / 600 100 / 100 Alburx 5% Inj 500 ML @ 250 mls/ 500 / 500 500 / 500 hr IV.SIG Q12H WOLF Rx#:[id number] KCl 20 mEq Premix Inj 20 meq In 200 / 200 100 / 100 100 / 100 100 ml @ 50 mls/hr IV.SIG Q2H WOLF Rx#:[id number] Oral 0 / 0 100 / 100 Water Bolus Amount 100 / 100 Intake (Blood Product) Amt 400 / 400 Rbc As-3 Leukoreduced Unit 400 / 400 [id number] Rbc As-3 Leukoreduced Unit 0 / 0 [id number] Output: Urine Amount (Catheter) 2375 / 2375 3000 / 3000 Indwelling Urethral Catheter 2375 / 2375 3000 / 3000 Other: Date of Last Bowel Movement 07/15/18 07/15/18 # Bowel Movements 0 Result Diagrams: 07/16/18 07:06 07/16/18 07:06 Laboratory Results: Laboratory Results - last 24 hr 07/13/18 07/16/18 07/16/18 14:30 00:01 04:36 WBC RBC Hgb Hct MCV MCH MCHC RDW Plt Count MPV Sodium Potassium Chloride Carbon Dioxide Anion Gap BUN Creatinine Estimated GFR POC Glucose 155 H 96 Random Glucose Calcium Prot Corrected Calcium Phosphorus Magnesium Total Bilirubin AST ALT Alkaline Phosphatase Total Protein Albumin Blood Type Antibody Screen MTS Gel Crossmatch See Detail 07/16/18 07/16/18 07/16/18 07:06 07:06 11:05 WBC 6.4 RBC 2.06 L Hgb 6.2 L* Hct 19.2 L* MCV 92.9 MCH 30.2 MCHC 32.5 RDW 16.3 Plt Count 63 L MPV 10.1 Sodium 143 Potassium 3.3 L Chloride 104 Carbon Dioxide 24.4 Anion Gap 15 BUN 75 H Creatinine 4.38 H Estimated GFR 16 L POC Glucose Random Glucose 88 Calcium 7.0 L* Prot Corrected Calcium 7.7 L Phosphorus 5.1 H Magnesium 1.6 Total Bilirubin 0.9 AST 45 H ALT 50 Alkaline Phosphatase 52 Total Protein 5.8 L Albumin 3.6 Blood Type O Positive Antibody Screen Negative MTS Gel Crossmatch See Detail 07/16/18 07/16/18 07/16/18 14:02 17:12 19:46 WBC RBC Hgb Hct MCV MCH MCHC RDW Plt Count MPV Sodium Potassium Chloride Carbon Dioxide Anion Gap BUN Creatinine Estimated GFR POC Glucose 185 H 203 H 297 H Random Glucose Calcium Prot Corrected Calcium Phosphorus Magnesium Total Bilirubin AST ALT Alkaline Phosphatase Total Protein Albumin Blood Type Antibody Screen MTS Gel Crossmatch Culture Results: Microbiology 07/11/18 13:50 Aerobic Blood Culture - Final Blood - Peripheral No growth in 5 days Anaerobic Blood Culture - Final No growth in 5 days 07/11/18 02:48 Aerobic Blood Culture - Final Blood - Peripheral No growth in 5 days Anaerobic Blood Culture - Final No growth in 5 days Imaging Studies: Impressions Chest X-Ray 07/16/18 10:00 CONCLUSION: Mild bibasilar consolidations, presumably atelectasis is unchanged. Medications: Active Medications Generic Name Dose Route Start Last Admin Trade Name Freq PRN Reason Stop Dose Admin Acetaminophen 650 mg 06/20/18 02:11 07/09/18 11:20 Tylenol PO 650 mg Q4H PRN Administration Temp > 100.4 Hydrocodone Bitart/Acetaminophen 1 tab 07/09/18 01:37 07/15/18 14:56 Mead 10/325 PO 1 tab Q4H PRN Administration pain Artificial Tears 1 drop 07/02/18 16:00 07/16/18 16:35 Tears Naturale Opth Drops EACH EYE Not Given Q8H WOLF Bisacodyl 10 mg 06/24/18 15:15 07/16/18 09:40 Dulcolax Supp RECTAL 10 mg DAILY WOLF Administration Budesonide 0.5 mg 06/26/18 20:00 07/16/18 19:42 Pulmocort Respule Neb NEB 0.5 mg Q12HR NEB WOLF Administration Chlorhexidine Gluconate 15 ml 06/26/18 20:00 07/16/18 20:05 Peridex 0.12% Oral Kit OROPHARYNG Not Given BID@0800,1999 WOLF Diltiazem HCl 60 mg 06/30/18 09:00 07/16/18 20:06 Cardizem PO 60 mg QID WOLF Administration Duloxetine HCl 20 mg 06/23/18 18:00 06/28/18 09:09 Cymbalta PO Not Given DAILY WOLF Hydrocortisone Acetate 25 mg 07/10/18 21:00 07/16/18 20:05 Hemorrhoidal Hc Supp RECTAL 25 mg BID WOLF Administration Bumetanide 25 mg in 100 mls @ 2 mls/hr 07/15/18 14:00 07/16/18 17:00 Bumex Inj IV.CONT Not Given .Q24H WOLF 0.5 MG/HR Albumin Human 500 mls @ 250 mls/hr 07/15/18 13:00 07/16/18 16:05 Alburx 5% Inj IV.SIG Infused Q12H WOLF Infusion Sodium Chloride 250 mls @ 15 mls/hr 07/16/18 09:00 07/16/18 14:35 Ns Inj IV.SIG 07/17/18 01:39 15 mls/hr ONCE WOLF Administration Insulin Human Regular 0 units 06/28/18 08:00 07/16/18 20:05 Novolin R Correctional Sugar Inj SQ 7 units Q4HR WOLF Administration Protocol Methylnaltrexone [place] 12 mg 07/10/18 09:00 07/16/18 09:39 Relistor SQ 12 mg DAILY WOLF Administration Methylprednisolone Sodium Succinate 40 mg 07/09/18 09:00 07/16/18 09:40 Solumedrol Inj IV.PUSH 40 mg DAILY WOLF Administration Metoclopramide HCl 10 mg 07/09/18 22:00 07/16/18 22:46 Reglan Inj IV.PUSH 10 mg Q8HR WOLF Administration Protocol Metoprolol Tartrate 2.5 mg 06/27/18 15:08 07/01/18 01:26 Lopressor Inj IV.PUSH 2.5 mg Q6H PRN Administration HEART RATE GREATER THAN 115 Miscellaneous Medication 1 each 06/26/18 12:00 07/16/18 16:35 OROPHARYNG Not Given 0000,0400,1200,1600 WOLF Ondansetron HCl 4 mg 06/20/18 02:11 07/08/18 08:53 Zofran Inj IV.PUSH 4 mg Q6H PRN Administration NAUSEA OR VOMITING Pantoprazole Sodium 40 mg 07/12/18 14:00 07/16/18 14:03 Protonix Inj IV.PUSH 40 mg Q12H WOLF Administration Sodium Biphosphate/Sodium Phosphate 118 ml 07/12/18 14:00 07/13/18 09:00 Fleets Enema (Adult) RECTAL 118 ml DAILY WOLF Administration Sodium Chloride 2 ml 06/20/18 09:00 07/16/18 20:06 Ns Flush IV.FLUSH 2 ml BID WOLF Administration Sodium Chloride 2 ml 06/20/18 02:09 07/09/18 09:06 Ns Flush IV.FLUSH 2 ml PRN PRN Administration FLUSH AFTER USING IV ACCESS Sodium Chloride 0 ml 07/03/18 09:00 07/16/18 09:41 Ns Flush IV.FLUSH Not Given DAILY WOLF Objective Remarks: GENERAL: Well-nourished, well-developed patient. SKIN: Warm and dry. HEAD: Normocephalic. EYES: No scleral icterus. No injection or drainage. NECK: Supple, trachea midline. No JVD or lymphadenopathy. LYMPHATIC: No adenopathy. CARDIOVASCULAR: Regular rate and rhythm without murmurs. RESPIRATORY: Breath sounds equal bilaterally. No accessory muscle use. GASTROINTESTINAL: distended abdomen EXTREMITIES: No cyanosis, or edema. NEUROLOGICAL: No obvious focal deficit. Assessment/Plan - Plan 1. Thrombocytopenia: critical illness. Coags mildyly prolonged, fibrinogen slightly low. 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 Stable. 2. Leukocytosis, is improving, was likely reactive. Continues on steroids and antibiotics have been discontinued. 3. Anemia, secondary to critical illness iatrogenic anemia of inflammation.
[2018-07-17 00:22] LABS: Hematocrit 30.2 % (39.0-51.0)
[2018-07-17] MEDS: Artificial Tears Opth Drops 15 ML Bottle EACH EYE SCH ×3 (00:28→15:59)
[2018-07-17] MEDS: Albumin Human 5% Inj 500 ML IV.SIG SCH ×2 (00:28→15:57)
[2018-07-17] MEDS: Insulin NovoLIN Regular Correctional Sugar Inj SQ SCH ×6 (00:29→20:26)
[2018-07-17] MEDS: Oral Hygiene Kit OROPHARYNG SCH ×4 (00:29→15:59)
[2018-07-17] MEDS: Pantoprazole Inj 40 MG Vial IV.PUSH SCH ×2 (02:51→15:59)
[2018-07-17 04:36] LABS: Hematocrit 27.9 % (39.0-51.0); Hemoglobin 9.6 gm/dL (13.0-17.0); Mean Corpuscular HGB Conc 34.3 % (32.0-36.0); Mean Corpuscular Hemoglobin 31.1 pg (27.0-34.0); Mean Corpuscular Volume 90.7 fL (80.0-100.0); Mean Platelet Volume 9.9 fL (7.0-11.0); Platelet Count 58 th/mm3 (150-450); Red Blood Count 3.07 mil/mm3 (4.50-5.90); Red Cell Distribution Width 15.1 % (11.6-17.2); White Blood Count 7.4 th/mm3 (4.0-11.0)
[2018-07-17 05:21] LABS: Albumin 4.7 g/dL (3.4-5.0); Calcium 7.4 mg/dL (8.5-10.1); Carbon Dioxide 30.7 meq/L (21.0-32.0); Magnesium 1.6 mg/dL (1.5-2.5); Phosphorus 4.2 mg/dL (2.5-4.9); Total Protein 7.1 g/dL (6.4-8.2)
[2018-07-17 05:43] LABS: Potassium 2.9 meq/L (3.5-5.1)
[2018-07-17] MEDS ORDERED: Calcium Chloride Inj 1 GM/10 ML Syringe IV.PUSH ONE (06:54)
--- NOTE | 2018-07-17 07:42 | P.PNCS ---
Subjective Interval history: afebrile, VSS UO good NGT min Objective Result Diagrams: 07/17/18 02:58 07/17/18 02:58 Objective Remarks: PE alert Abd - rounded, +tympany, lg stool with rectal exam, no BRB Assessment and Plan - Plan Imp: rigid proctoscope to bedside, may use later sit up supp try to avoid surgery, plat still 59K
[2018-07-17] MEDS ORDERED: Magnesium Sulfate Inj 2 GM in Sodium Chlor 0.9% Inj 96 ML IV.SIG ONE (08:00)
[2018-07-17] MEDS: Hydrocortisone Acetate 25 MG Supp RECTAL SCH ×2 (08:26→20:27)
[2018-07-17] MEDS: Bisacodyl 10 MG Supp RECTAL SCH (08:26)
[2018-07-17] MEDS: Potassium Chlor 20 mEq Premix 20 MEQ/100 ML PIGGYBACK IV.SIG SCH ×4 (08:27→15:58)
[2018-07-17] MEDS: MethylPREDNISolone Sod Succinate Inj 40 MG/ML Vial IV.PUSH SCH (08:27)
[2018-07-17] MEDS: dilTIAZem 60 MG Tablet PO SCH ×4 (08:27→20:27)
[2018-07-17] MEDS: Chlorhexidine 0.12% Oral Kit 15 ML UDC OROPHARYNG SCH ×2 (08:28→20:27)
[2018-07-17] MEDS: Methylnaltrexone Inj 12 MG/0.6 ML Vial SQ SCH (08:29)
--- NOTE | 2018-07-17 08:53 | P.PNCC ---
Subjective Subjective Remarks/Hospital Course: Mr. Curry is a 73-year-old -[place] male with past medical history significant for COPD on 3 L nasal cannula, hypertension, hyperlipidemia and anxiety who was admitted to the hospitalist service on 06/19/2018 for worsening shortness of breath due to COPD exacerbation. He was treated with IV Solu- Medrol, IV antibiotics, breathing treatments gradually improved. Patient was also complaining about dyspepsia and underwent EGD by GI yesterday. Per report the EGD was normal but patient developed worsening shortness of breath and COPD exacerbation postprocedure, possibly from aspiration after sedated. Two ABGs done yesterday showed hypercapnic respiratory failure second 1 was on BiPAP and this was improved with pH 7.3 with PCO2 of 74. Patient remained on BiPAP overnight however was noticed to be lethargic today a.m., stat ABG showed pH of 7.21 PCO2 110 PO2 88 while on BiPAP. Patient was lethargic intermittently dozing off due to CO2 narcosis. Critical care medicine was consulted and I immediately evaluated the patient. Patient had obviously failed BiPAP I proceeded with endotracheal intubation placed on mechanical ventilation. Postintubation I have ordered single dose of Solu-Medrol 125 mg x1 continue Solu -Medrol 60 every 8, discontinue ceftriaxone and start cefepime 2 g IV every 8 hours continue azithromycin. Add budesonide inhaled, placed on scheduled DuoNeb every 4 hours and as needed. 06/27: Patient was intubated yesterday for severe hypercapnic respiratory failure. Currently remains intubated sedated and intubated remains diminished bilaterally. Heavily sedated for ventilator synchrony 06/28: Urine output significantly improved with fluid resuscitation. Creat down trending now 2 from 2.3, UO >3.3 L. Remains intubated sedated. Will initiate daily sedation vacation and CPAP trials 06/29: More awake today tolerating CPAP trials intermittently follows commands but gets agitated/frustrated fast. Urine output remains excellent creatinine 1.4. However sodium increasing 158 today. Night house coordinator had changed fluid to D5 W for free water replacement. Due to hypoglycemia will change to quarter normal saline at 150 mL/h repeat CMP in the afternoon 06/30 Patient was extubated yesterday. Awake 07/01 Patient is lying in bed in NAD. T: 100.5 07/02: Intubated early this morning due to acute hypoxic respiratory failure. Central line placed due to hypotension. Plan for GI perform endoscopic decompression of this large bowel today. Arousable and does follow commands. Placed on argatroban 07/03: Currently, intubated with borderline blood pressure. Central line placed yesterday due to hypotension. Did not move bowels despite 1 L of fluid from colonoscopy yesterday and multiple laxatives provided. See orders for additional laxatives today. Might need neostigmine. 07/04 Patient remains intubated and sedated with Diprivan. Given Neostigmine last night. KUB this morning showed colonic ileus. Afebrile. On Argatroban. 07/05 No events overnight, sedated with Diprivan and intubated. Off Argatroban. 07/06 Patient remains intubated and sedated. Afebrile. 07/07 Patient remains intubated, s/p decompressive colonoscopy yesterday. Awake. 07/08 Patient s/p extubation yesterday. Awake and alert. 07/09 Patient is awake, alert lying in bed in NAD. Afebrile. 07/10 Patient is awake and alert, Afebrile. 07/11 Patient s/p decompressive colonoscopy yesterday. Afebrile. On Lasix drip.( UOP: 2800ml overnight). Cr: 3.0 from 2.25. 07/12 Patient is awake, alert given Neostigmine overnight. NGT to LIWS, off Lasix drip. 07/13: Resting comfortably in bed in no acute distress. 3 bowel movements documented. Remains n.p.o. Bladder pressures around 6. Potassium being replaced. Remains anemic around 7. 07/14 Patient is lying in bed in NAD. Afebrile. 07/15 No events overnight. Afebrile. 07/16: Resting in bed mild distress. Abdomen remains distended. Hemoglobin has dropped to 6.2 2 units of PRBC ordered. Patient underwent decompressive colonoscopy by Dr. Berrios for colonic ileus 07/17: No significant overnight events, patient states that he wants to get out of bed to a chair as he is having rectal discomfort. Objective Vital Signs / I&O: Vital Signs 07/16/18 09:00 11/14/18 09:15 07/16/18 09:30 Temperature Pulse Rate 116 H 114 H 115 H Respiratory Rate 20 18 18 Blood Pressure 147/73 H 146/65 H 131/58 L Pulse Oximetry 98 98 98 07/16/18 09:45 07/16/18 10:00 07/16/18 10:16 Temperature Pulse Rate 113 H 116 H 110 H Respiratory Rate 18 19 18 Blood Pressure 143/63 H 137/63 142/66 H Pulse Oximetry 98 97 99 07/16/18 10:30 07/16/18 10:45 07/16/18 11:00 Temperature Pulse Rate 110 H 108 H 108 H Respiratory Rate 21 18 23 Blood Pressure 131/65 140/70 139/64 Pulse Oximetry 98 98 97 07/16/18 11:15 07/16/18 11:30 07/16/18 11:45 Temperature Pulse Rate 108 H 108 H 101 H Respiratory Rate 19 24 17 Blood Pressure 146/67 H 114/65 122/70 Pulse Oximetry 97 98 99 07/16/18 12:00 07/16/18 12:15 07/16/18 12:30 Temperature Pulse Rate 99 H 107 H 103 H Respiratory Rate 19 21 33 H Blood Pressure 122/75 135/68 144/73 H Pulse Oximetry 100 98 97 07/16/18 12:45 07/16/18 13:00 07/16/18 13:16 Temperature Pulse Rate 103 H 106 H 101 H Respiratory Rate 33 H 18 28 H Blood Pressure 154/76 H 138/65 154/69 H Pulse Oximetry 98 97 99 07/16/18 13:31 07/16/18 13:45 07/16/18 13:48 Temperature Pulse Rate 103 H 105 H 103 H Respiratory Rate 25 H 24 28 H Blood Pressure 159/76 H 166/120 H 164/58 H Pulse Oximetry 98 98 98 07/16/18 14:00 07/16/18 14:01 07/16/18 14:09 Temperature 98.3 F Pulse Rate 111 H 108 H 109 H Respiratory Rate 22 20 16 Blood Pressure 153/69 H 153/69 H Pulse Oximetry 96 97 97 07/16/18 14:16 07/16/18 14:30 07/16/18 14:45 Temperature 98.3 F Pulse Rate 108 H 109 H 108 H Respiratory Rate 21 22 21 Blood Pressure 139/64 142/68 H 148/67 H Pulse Oximetry 99 99 98 11/14/18 15:00 07/16/18 15:16 07/16/18 15:30 Temperature Pulse Rate 109 H 101 H 112 H Respiratory Rate 21 15 22 Blood Pressure 132/54 L 157/74 H 156/69 H Pulse Oximetry 97 98 96 07/16/18 15:45 07/16/18 16:00 07/16/18 16:46 Temperature 98.5 F Pulse Rate 106 H 105 H 102 H Respiratory Rate 20 22 22 Blood Pressure 153/68 H 149/68 H 165/74 H Pulse Oximetry 98 96 98 07/16/18 17:00 07/16/18 18:00 07/16/18 19:42 Temperature 98.3 F Pulse Rate 107 H 99 H 102 H Respiratory Rate 16 20 Blood Pressure 140/59 L Pulse Oximetry 98 98 07/16/18 20:00 07/16/18 22:00 07/17/18 00:00 Temperature 98.1 F 98.3 F Pulse Rate 109 H 94 H 100 H Respiratory Rate 21 18 Blood Pressure 160/74 H 132/72 Pulse Oximetry 97 98 07/17/18 00:11 07/17/18 02:00 07/17/18 04:00 Temperature 98.6 F Pulse Rate 100 H 101 H Respiratory Rate 21 Blood Pressure 136/81 Pulse Oximetry 99 98 07/17/18 06:00 07/17/18 07:57 Temperature Pulse Rate 104 H 106 H Respiratory Rate 22 Blood Pressure Pulse Oximetry 96 Intake & Output 07/16/18 07/17/18 07/17/18 18:59 06:59 18:59 Intake Total 1100 / 1100 1100 / 1100 Output Total 3000 / 3000 3410 / 3410 Balance -1900 / -1900 -2310 / -2310 Weight 93 kg Intake: IV 600 / 600 600 / 600 Alburx 5% Inj 500 ML @ 250 mls/ 500 / 500 500 / 500 hr IV.SIG Q12H WOLF Rx#:[id number] KCl 20 mEq Premix Inj 20 meq In 100 / 100 100 / 100 100 ml @ 50 mls/hr IV.SIG Q2H WOLF Rx#:[id number] Oral 100 / 100 0 / 0 Water Bolus Amount 100 / 100 Intake (Blood Product) Amt 400 / 400 400 / 400 Rbc As-3 Leukoreduced Unit 400 / 400 [id number] Rbc As-3 Leukoreduced Unit 0 / 0 400 / 400 [id number] Output: Urine Amount (Catheter) 3000 / 3000 3400 / 3400 Indwelling Urethral Catheter 3000 / 3000 3400 / 3400 Gastric Drainage Right Nare Nasogastric Tube Other: Date of Last Bowel Movement 07/15/18 07/17/18 # Bowel Movements 2 Result Diagrams: 07/17/18 02:58 07/17/18 02:58 Objective Remarks: GENERAL: Elderly male sitting in bed, appears mildly uncomfortable SKIN: Warm and dry HEAD: Normocephalic. EYES: No scleral icterus. No injection or drainage. NECK: Supple, trachea midline. No JVD or lymphadenopathy. CARDIOVASCULAR: Borderline tachy to 100s, regular RESPIRATORY: B/l equal air entry GASTROINTESTINAL: Abdomen distended, firm but not tense, non-tender MUSCULOSKELETAL: 1-2+ bilateral upper and lower extremity peripheral edema. Neuro: Awake and alert. Follows commands x4, generalized weakness. Normal speech Assessment and Plan - Assessment and Plan Plan: ASSESSMENT: Hypercapnic respiratory failure Acute COPD exacerbation Altered mental status due to CO2 narcosis Acute kidney injury/failure Anemia requiring transfusion Colonic ileus Hypertension Leukocytosis Hyperglycemia COPD Hypernatremia Hypopotassemia Normocytic anemia Thrombocytopenia Hyperphosphatemia PLAN: NEURO: -Monitor neuro status, avoid sedatives -Awake and alert RESP: -Continue with oxygen keep sats >92% -Extubated 06/29. Reintubated 07/02 extubated again 07/07 -DuoNeb every 4 hours scheduled and butyryl aerosols every 2 hours as needed -Methylprednisolone succinate 40 mg daily -Inhaled budesonide -NIPPV PRN for resp distress-hold off due to ileus and risk of aspiration -07/02 CTA chest:No PE, bibasilar air space disease. 07/02 Doppler US LE negative DVT -CXR 07/10: Mild patchy bilateral lung base opacity likely representing atelectasis unchanged. Small left pleural effusion CV: - Monitor HR and BP keep MAP>65mmHg -Continue with BP meds, Cardizem 60mg Q6 GI: -Seen by Dr. Berrios ([facility]) for decompressive colonoscopy by Dr. Berrios performed on 07/15/2018. -KUB 07/14: Ileus. Get follow-up KUB today -KUB 07/13: Stable nonobstructive colonic distention. Given Neostigmine 07/11. -Monitor IAP, Surgery is following- Dr. Oh. GI is following -NGT to LIWS -s/p repeat decompressive colonoscopy 07/10 and 07/15 07/10: CT abd/pelvis: There is gas and fluid distending the colon. The overall size of the colon has mildly increased when compared to previous exam. The small bowel is normal in caliber. -IV famotidine -On docusate sodium/senna 1 tablet twice daily, lactulose 30 cc 4 times daily -May need rigid proctoscopy later today as per colorectal notes; per RN, patient passed flatus and a small BM after digital rectal exam by colorectal surgeon this morning FEN/: -Monitor renal function, I/O's, avoid nephrotoxins -Renal function slowly improving with Cr: 4.38--> 3.63. -Continue Albumin and Bumex drip 0.5mg/hr per renal. UO 4+ L in 24 hours -Renal- Dr. Figueroa ID: -Off abx monitor for signs of infections (Fever, WBC) WBC stable -BC and urine cx from 07/11- NG in 5 days -07/02 BC: NGTS, sputum cx 07/02:normal resp justyn -ID is following- Dr. Brown PRN HEME: -Monitor CBC, coags, Hep PLT is positive. ANNMARIE negative. Hematology is following. Off argatroban drip -s/p 2U PRBCs yesterday, Hg this morning is stable -Stable thrombocytopenia ENDO: -Electrolyte replacement per protocol -Sliding scale insulin medium scale PROPH: -Bilateral lower extremity SCDs. PPI -Doppler US LE negative DVT 07/02 LINES: -Utilize peripheral IVs Level 2 Will keep in ICU x 1 more day as patient is still NPO, not having BMs, at risk for aspiration/ decompensation To help prompt me to consider important information that might be impacting today's encounter and assessment, information from prior notes written by myself or my colleagues may have been "brought forward" into today's note. My signature on this note, however, is an attestation that I personally performed the exam, history, and/or decision-making noted today, and, unless otherwise indicated, the interactions with patient, family, and staff as well as the review of records all occurred today. I also attest that the listed assessment and stated plan reflect my best clinical judgment today based on the combination of historical information, prior notes, and today's exam/ interactions. Code Status: Full
[2018-07-17] MEDS ORDERED: Calcium Chloride Inj 1 GM in Sodium Chlor 0.9% Inj 100 ML IV.SIG ONE (09:00)
--- NOTE | 2018-07-17 10:19 | P.PNNP ---
Subjective Interval history: Patient is better urine output has increased, abdominal distention improved, has NG tube Physical Exam Vital signs: Vital Signs 07/16/18 10:30 07/16/18 10:45 07/16/18 11:00 Temperature Pulse Rate 110 H 108 H 108 H Respiratory Rate 21 18 23 Blood Pressure 131/65 140/70 139/64 Pulse Oximetry 98 98 97 07/16/18 11:15 07/16/18 11:30 07/16/18 11:45 Temperature Pulse Rate 108 H 108 H 101 H Respiratory Rate 19 24 17 Blood Pressure 146/67 H 114/65 122/70 Pulse Oximetry 97 98 99 07/16/18 12:00 07/16/18 12:15 07/16/18 12:30 Temperature Pulse Rate 99 H 107 H 103 H Respiratory Rate 19 21 33 H Blood Pressure 122/75 135/68 144/73 H Pulse Oximetry 100 98 97 07/16/18 12:45 07/16/18 13:00 07/16/18 13:16 Temperature Pulse Rate 103 H 106 H 101 H Respiratory Rate 33 H 18 28 H Blood Pressure 154/76 H 138/65 154/69 H Pulse Oximetry 98 97 99 07/16/18 13:31 07/16/18 13:45 07/16/18 13:48 Temperature Pulse Rate 103 H 105 H 103 H Respiratory Rate 25 H 24 28 H Blood Pressure 159/76 H 166/120 H 164/58 H Pulse Oximetry 98 98 98 07/16/18 14:00 07/16/18 14:01 07/16/18 14:09 Temperature 98.3 F Pulse Rate 111 H 108 H 109 H Respiratory Rate 22 20 16 Blood Pressure 153/69 H 153/69 H Pulse Oximetry 96 97 97 07/16/18 14:16 07/16/18 14:30 07/16/18 14:45 Temperature 98.3 F Pulse Rate 108 H 109 H 108 H Respiratory Rate 21 22 21 Blood Pressure 139/64 142/68 H 148/67 H Pulse Oximetry 99 99 98 07/16/18 15:00 07/16/18 15:16 07/16/18 15:30 Temperature Pulse Rate 109 H 101 H 112 H Respiratory Rate 21 15 22 Blood Pressure 132/54 L 157/74 H 156/69 H Pulse Oximetry 97 98 96 07/16/18 15:45 07/16/18 16:00 07/16/18 16:46 Temperature 98.5 F Pulse Rate 106 H 105 H 102 H Respiratory Rate 20 22 22 Blood Pressure 153/68 H 149/68 H 165/74 H Pulse Oximetry 98 96 98 07/16/18 17:00 07/16/18 18:00 07/16/18 19:42 Temperature 98.3 F Pulse Rate 107 H 99 H 102 H Respiratory Rate 16 20 Blood Pressure 140/59 L Pulse Oximetry 98 98 07/16/18 20:00 07/16/18 22:00 07/17/18 00:00 Temperature 98.1 F 98.3 F Pulse Rate 109 H 94 H 100 H Respiratory Rate 21 18 Blood Pressure 160/74 H 132/72 Pulse Oximetry 97 98 07/17/18 00:11 07/17/18 02:00 07/17/18 04:00 Temperature 98.6 F Pulse Rate 100 H 101 H Respiratory Rate 21 Blood Pressure 136/81 Pulse Oximetry 99 98 07/17/18 06:00 07/17/18 07:57 07/17/18 08:00 Temperature 98.5 F Pulse Rate 104 H 106 H 105 H Respiratory Rate 22 21 Blood Pressure 163/79 H Pulse Oximetry 96 98 07/17/18 08:15 07/17/18 08:30 07/17/18 08:45 Temperature Pulse Rate 109 H 106 H 108 H Respiratory Rate 20 23 22 Blood Pressure 152/68 H 149/70 H 144/57 H Pulse Oximetry 95 95 95 07/17/18 09:00 07/17/18 10:00 Temperature Pulse Rate 109 H 103 H Respiratory Rate 23 Blood Pressure 146/65 H Pulse Oximetry 95 Intake & Output 07/16/18 07/17/18 07/17/18 18:59 06:59 18:59 Intake Total 1100 / 1100 1100 / 1100 Output Total 3000 / 3000 3410 / 3410 Balance -1900 / -1900 -2310 / -2310 Weight 93 kg Intake: IV 600 / 600 600 / 600 Alburx 5% Inj 500 ML @ 250 mls/ 500 / 500 500 / 500 hr IV.SIG Q12H [facility] Rx#:[id number] KCl 20 mEq Premix Inj 20 meq In 100 / 100 100 / 100 100 ml @ 50 mls/hr IV.SIG Q2H [facility] Rx#:[id number] Oral 100 / 100 0 / 0 Water Bolus Amount 100 / 100 Intake (Blood Product) Amt 400 / 400 400 / 400 Rbc As-3 Leukoreduced Unit 400 / 400 [id number] Rbc As-3 Leukoreduced Unit 0 / 0 400 / 400 [id number] Output: Urine Amount (Catheter) 3000 / 3000 3400 / 3400 Indwelling Urethral Catheter 3000 / 3000 3400 / 3400 Gastric Drainage Right Nare Nasogastric Tube Other: Date of Last Bowel Movement 07/15/18 07/17/18 07/17/18 # Bowel Movements 2 Narrative: GENERAL: Sick appearing patient with NG tube SKIN: Warm and dry. HEAD: Normocephalic. EYES: No scleral icterus. No injection or drainage. NECK: Supple, trachea midline. No JVD or lymphadenopathy. CARDIOVASCULAR: Regular rate and rhythm without murmurs, gallops, or rubs. RESPIRATORY: Breath sounds diminished air entry at bases GASTROINTESTINAL: Abdomen distended bowel sounds are hypoactive. EXTREMITIES: 2+/3 edema NEUROLOGICAL: Awake, alert, and oriented x 3. Non-focal. - Urinary Catheter Management Indwelling Urethral Catheter Cath placed during this visit: yes, but has since been removed by the nurse Reason for continuing: Acute urinary retention Insertion date: 07/14/18 Insertion time: 21:55 Removal date: 07/13/18 Removal time: 13:30 Straight Cath placed during this visit: no Assessment and Plan - Assessment (1) Acute renal failure Code(s): N17.9 - Acute kidney failure, unspecified Status: Acute (2) Anasarca Code(s): R60.1 - Generalized edema Status: Acute (3) Abdominal distention Code(s): R14.0 - Abdominal distension (gaseous) Status: Acute (4) Ileus Code(s): K56.7 - Ileus, unspecified Status: Acute - Plan ALLYSON with non-oliguric ATN Creatinine 3 -> 3.4, 4.44.7-4.3 -3.6 patient urine output is improved 6.4 L on Bumex and albumin/Bumex drip at 0.5 mg/h, potassium has dropped to 2.9 has been replaced I will discontinue Bumex drip continue with albumin Hemoglobin is stable Replace potassium Will continue to monitor Continue to follow with GI and surgery for ileus Monitor BMP
--- NOTE | 2018-07-17 17:11 | P.PNGI ---
Subjective Interval history: Patient resting supine in bed with eyes closed Awakens easily and denies abdominal discomfort Post decompressive colonoscopy for colonic ileus NG tube to low intermittent wall suction <Carlene Young - Last Filed: 07/17/18 17:28> Physical Exam Vital signs: Vital Signs 07/16/18 18:00 07/16/18 19:42 07/16/18 20:00 Temperature 98.1 F Pulse Rate 99 H 102 H 109 H Respiratory Rate 20 21 Blood Pressure 160/74 H Pulse Oximetry 98 97 07/16/18 22:00 07/17/18 00:00 07/17/18 00:11 Temperature 98.3 F Pulse Rate 94 H 100 H Respiratory Rate 18 Blood Pressure 132/72 Pulse Oximetry 98 99 07/17/18 02:00 07/17/18 04:00 07/17/18 06:00 Temperature 98.6 F Pulse Rate 100 H 101 H 104 H Respiratory Rate 21 Blood Pressure 136/81 Pulse Oximetry 98 07/17/18 07:57 07/17/18 08:00 07/17/18 08:15 Temperature 98.5 F Pulse Rate 106 H 105 H 109 H Respiratory Rate 22 21 20 Blood Pressure 163/79 H 152/68 H Pulse Oximetry 96 98 95 07/17/18 08:30 07/17/18 08:45 07/17/18 09:00 Temperature Pulse Rate 106 H 108 H 109 H Respiratory Rate 23 22 23 Blood Pressure 149/70 H 144/57 H 146/65 H Pulse Oximetry 95 95 95 07/17/18 10:00 07/17/18 10:21 07/17/18 10:30 Temperature Pulse Rate 99 H 95 H 103 H Respiratory Rate 16 18 24 Blood Pressure 132/76 136/66 Pulse Oximetry 98 99 98 07/17/18 10:45 07/17/18 11:00 07/17/18 11:15 Temperature Pulse Rate 97 H 90 92 H Respiratory Rate 17 15 16 Blood Pressure 153/73 H 137/60 143/67 H Pulse Oximetry 98 100 100 07/17/18 11:30 07/17/18 11:46 07/17/18 12:00 Temperature Pulse Rate 92 H 103 H 94 H Respiratory Rate 17 20 15 Blood Pressure 142/70 H 124/72 131/63 Pulse Oximetry 100 99 100 07/17/18 12:15 07/17/18 12:30 07/17/18 12:45 Temperature Pulse Rate 98 H 95 H 97 H Respiratory Rate 21 19 20 Blood Pressure 132/67 150/71 H 157/68 H Pulse Oximetry 99 100 100 07/17/18 13:00 07/17/18 13:15 07/17/18 13:30 Temperature Pulse Rate 100 H 105 H 96 H Respiratory Rate 19 23 16 Blood Pressure 155/74 H 144/70 H 149/67 H Pulse Oximetry 99 99 100 07/17/18 13:45 07/17/18 14:00 07/17/18 14:15 Temperature Pulse Rate 106 H 104 H 100 H Respiratory Rate 25 H 30 H 24 Blood Pressure 147/68 H 144/68 H 130/68 Pulse Oximetry 97 97 99 Intake & Output 07/16/18 07/17/18 07/17/18 18:59 06:59 18:59 Intake Total 1100 / 1100 1100 / 1100 300 / 300 Output Total 3000 / 3000 3410 / 3410 Balance -1900 / -1900 -2310 / -2310 300 / 300 Weight 93 kg Intake: IV 600 / 600 600 / 600 300 / 300 Alburx 5% Inj 500 ML @ 250 mls/ 500 / 500 500 / 500 hr IV.SIG Q12H [facility] Rx#:[id number] KCl 20 mEq Premix Inj 20 meq In 100 / 100 100 / 100 300 / 300 100 ml @ 50 mls/hr IV.SIG Q2H [facility] Rx#:[id number] Oral 100 / 100 0 / 0 Water Bolus Amount 100 / 100 Intake (Blood Product) Amt 400 / 400 400 / 400 Rbc As-3 Leukoreduced Unit 400 / 400 [id number] Rbc As-3 Leukoreduced Unit 0 / 0 400 / 400 [id number] Output: Urine Amount (Catheter) 3000 / 3000 3400 / 3400 Indwelling Urethral Catheter 3000 / 3000 3400 / 3400 Gastric Drainage Right Nare Nasogastric Tube Other: Date of Last Bowel Movement 07/15/18 07/17/18 07/17/18 # Bowel Movements 2 - Constitutional no acute distress - Routine HEENT Exam Head: Present: normocephalic - Routine Respiratory Exam Present: accessory muscle use, CTA bilaterally - Routine Cardiovascular Exam Present: S1, S2 - Routine Abdominal Exam Present: distended, firm. Absent: tenderness Comments: Distant bowel sounds present - Routine Skin Exam Present: dry, warm - Urinary Catheter Management Indwelling Urethral Catheter Cath placed during this visit: yes, but has since been removed by the nurse Reason for continuing: Acute urinary retention Insertion date: 07/14/18 Insertion time: 21:55 Removal date: 07/13/18 Removal time: 13:30 Straight Cath placed during this visit: no <Carlene Young - Last Filed: 07/17/18 17:28> Vital signs: Vital Signs 07/16/18 22:00 07/17/18 00:00 07/17/18 00:11 Temperature 98.3 F Pulse Rate 94 H 100 H Respiratory Rate 18 Blood Pressure 132/72 Pulse Oximetry 98 99 07/17/18 02:00 07/17/18 04:00 07/17/18 06:00 Temperature 98.6 F Pulse Rate 100 H 101 H 104 H Respiratory Rate 21 Blood Pressure 136/81 Pulse Oximetry 98 07/17/18 07:57 07/17/18 08:00 07/17/18 08:15 Temperature 98.5 F Pulse Rate 106 H 105 H 109 H Respiratory Rate 22 21 20 Blood Pressure 163/79 H 152/68 H Pulse Oximetry 96 98 95 07/17/18 08:30 07/17/18 08:45 07/17/18 09:00 Temperature Pulse Rate 106 H 108 H 109 H Respiratory Rate 23 22 23 Blood Pressure 149/70 H 144/57 H 146/65 H Pulse Oximetry 95 95 95 07/17/18 10:00 07/17/18 10:21 07/17/18 10:30 Temperature Pulse Rate 99 H 95 H 103 H Respiratory Rate 16 18 24 Blood Pressure 132/76 136/66 Pulse Oximetry 98 99 98 07/17/18 10:45 07/17/18 11:00 07/17/18 11:15 Temperature Pulse Rate 97 H 90 92 H Respiratory Rate 17 15 16 Blood Pressure 153/73 H 137/60 143/67 H Pulse Oximetry 98 100 100 07/17/18 11:30 07/17/18 11:46 07/17/18 12:00 Temperature Pulse Rate 92 H 103 H 94 H Respiratory Rate 17 20 15 Blood Pressure 142/70 H 124/72 131/63 Pulse Oximetry 100 99 100 07/17/18 12:15 07/17/18 12:30 07/17/18 12:45 Temperature Pulse Rate 98 H 95 H 97 H Respiratory Rate 21 19 20 Blood Pressure 132/67 150/71 H 157/68 H Pulse Oximetry 99 100 100 07/17/18 13:00 07/17/18 13:15 07/17/18 13:30 Temperature Pulse Rate 100 H 105 H 96 H Respiratory Rate 19 23 16 Blood Pressure 155/74 H 144/70 H 149/67 H Pulse Oximetry 99 99 100 07/17/18 13:45 07/17/18 14:00 07/17/18 14:15 Temperature Pulse Rate 106 H 104 H 100 H Respiratory Rate 25 H 30 H 24 Blood Pressure 147/68 H 144/68 H 130/68 Pulse Oximetry 97 97 99 07/17/18 14:30 07/17/18 14:45 07/17/18 15:00 Temperature Pulse Rate 102 H 111 H 100 H Respiratory Rate 24 29 H 21 Blood Pressure 132/70 128/69 156/66 H Pulse Oximetry 98 97 100 07/17/18 15:16 07/17/18 15:31 07/17/18 15:45 Temperature Pulse Rate 101 H 103 H 106 H Respiratory Rate 20 19 21 Blood Pressure 171/63 H 164/77 H 153/70 H Pulse Oximetry 99 100 99 07/17/18 16:00 07/17/18 16:15 07/17/18 16:31 Temperature Pulse Rate 97 H 108 H 109 H Respiratory Rate 15 21 22 Blood Pressure 151/78 H 148/73 H 179/72 H Pulse Oximetry 99 98 100 07/17/18 16:45 07/17/18 17:00 07/17/18 18:00 Temperature Pulse Rate 99 H 108 H 109 H Respiratory Rate 20 23 Blood Pressure 134/66 141/66 H Pulse Oximetry 100 97 07/17/18 19:44 Temperature Pulse Rate 113 H Respiratory Rate 16 Blood Pressure Pulse Oximetry 98 Intake & Output 07/17/18 07/17/18 07/18/18 06:59 18:59 06:59 Intake Total 1100 / 1100 1360 / 1360 Output Total 3410 / 3410 4250 / 4250 Balance -2310 / -2310 -2890 / -2890 Weight 93 kg Intake: IV 600 / 600 1360 / 1360 Alburx 5% Inj 500 ML @ 250 mls/ 500 / 500 500 / 500 hr IV.SIG Q12H [facility] Rx#:[id number] Calcium Chloride Inj 1 GM In NS 110 / 110 Inj 100 ML @ 110 mls/hr IV.SIG ONCE ONE Rx#:[id number] Magnesium Sulfate Inj 2 GM In 100 / 100 NS Inj 96 ML @ 50 mls/hr IV.SIG ONCE ONE Rx#:[id number] KCl 20 mEq Premix Inj 20 meq In 100 / 100 400 / 400 100 ml @ 50 mls/hr IV.SIG Q2H [facility] Rx#:[id number] Oral 0 / 0 Water Bolus Amount 100 / 100 Intake (Blood Product) Amt 400 / 400 Rbc As-3 Leukoreduced Unit 400 / 400 [id number] Output: Urine Amount (Catheter) 3400 / 3400 4250 / 4250 Indwelling Urethral Catheter 3400 / 3400 4250 / 4250 Gastric Drainage Right Nare Nasogastric Tube Other: Date of Last Bowel Movement 07/17/18 07/17/18 # Bowel Movements 2 3 - Urinary Catheter Management Indwelling Urethral Catheter Cath placed during this visit: no Straight Cath placed during this visit: no <Richard Chauhan - Last Filed: 07/17/18 20:04> Results - Labs CBC & Chem 7: 07/17/18 02:58 07/17/18 02:58 Laboratory Results - last 24 hr 07/16/18 07/16/18 07/16/18 11:05 17:12 19:46 WBC RBC Hgb Hct MCV MCH MCHC RDW Plt Count MPV Sodium Potassium Chloride Carbon Dioxide Anion Gap BUN Creatinine Estimated GFR POC Glucose 203 H 297 H Random Glucose Calcium Prot Corrected Calcium Phosphorus Magnesium Total Bilirubin AST ALT Alkaline Phosphatase Total Protein Albumin MTS Gel Crossmatch See Detail 07/16/18 07/17/18 07/17/18 23:51 00:16 02:58 WBC 7.4 RBC 3.07 L Hgb 10.0 L D 9.6 L Hct 30.2 L 27.9 L MCV 90.7 MCH 31.1 MCHC 34.3 RDW 15.1 Plt Count 58 L MPV 9.9 Sodium Potassium Chloride Carbon Dioxide Anion Gap BUN Creatinine Estimated GFR POC Glucose 231 H Random Glucose Calcium Prot Corrected Calcium Phosphorus Magnesium Total Bilirubin AST ALT Alkaline Phosphatase Total Protein Albumin MTS Gel Crossmatch 07/17/18 07/17/18 07/17/18 02:58 03:42 12:51 WBC RBC Hgb Hct MCV MCH MCHC RDW Plt Count MPV Sodium 144 Potassium 2.9 L* Chloride 102 Carbon Dioxide 30.7 Anion Gap 11 BUN 69 H Creatinine 3.63 H Estimated GFR 20 L POC Glucose 118 H 194 H Random Glucose 127 H Calcium 7.4 L* Prot Corrected Calcium 7.4 L* Phosphorus 4.2 Magnesium 1.6 Total Bilirubin 1.1 H AST 45 H ALT 58 Alkaline Phosphatase 65 Total Protein 7.1 D Albumin 4.7 D MTS Gel Crossmatch <Carlene Young - Last Filed: 07/17/18 17:28> - Labs CBC & Chem 7: 07/17/18 02:58 07/17/18 02:58 Laboratory Results - last 24 hr 07/16/18 07/16/18 07/17/18 11:05 23:51 00:16 WBC RBC Hgb 10.0 L D Hct 30.2 L MCV MCH MCHC RDW Plt Count MPV Sodium Potassium Chloride Carbon Dioxide Anion Gap BUN Creatinine Estimated GFR POC Glucose 231 H Random Glucose Calcium Prot Corrected Calcium Phosphorus Magnesium Total Bilirubin AST ALT Alkaline Phosphatase Total Protein Albumin MTS Gel Crossmatch See Detail 07/17/18 07/17/18 07/17/18 02:58 02:58 03:42 WBC 7.4 RBC 3.07 L Hgb 9.6 L Hct 27.9 L MCV 90.7 MCH 31.1 MCHC 34.3 RDW 15.1 Plt Count 58 L MPV 9.9 Sodium 144 Potassium 2.9 L* Chloride 102 Carbon Dioxide 30.7 Anion Gap 11 BUN 69 H Creatinine 3.63 H Estimated GFR 20 L POC Glucose 118 H Random Glucose 127 H Calcium 7.4 L* Prot Corrected Calcium 7.4 L* Phosphorus 4.2 Magnesium 1.6 Total Bilirubin 1.1 H AST 45 H ALT 58 Alkaline Phosphatase 65 Total Protein 7.1 D Albumin 4.7 D MTS Gel Crossmatch 07/17/18 07/17/18 12:51 19:48 WBC RBC Hgb Hct MCV MCH MCHC RDW Plt Count MPV Sodium Potassium Chloride Carbon Dioxide Anion Gap BUN Creatinine Estimated GFR POC Glucose 194 H 332 H Random Glucose Calcium Prot Corrected Calcium Phosphorus Magnesium Total Bilirubin AST ALT Alkaline Phosphatase Total Protein Albumin MTS Gel Crossmatch <Richard Chauhan - Last Filed: 07/17/18 20:04> Assessment and Plan (1) Paralytic ileus of large intestine Status: Acute Code(s): K56.0 - Paralytic ileus - Plan 07/17/2018 Colonic ileus Patient is post decompressive colonoscopy-rigid proctoscope NG tube to low intermittent wall suction Abdomen mildly distended less tension noted. Hemoglobin 9.6 hematocrit 27.9-no reported bleeding Plan -NG to low intermittent wall suction -Monitor output -Monitor labs -Dr. Berrios following -Supportive care -Further recommendations to follow This patient has been seen by myself and Dr. Chauhan and this note is written on his behalf - Attending Attestation <Carlene Young - Last Filed: 07/17/18 17:28> (1) Paralytic ileus of large intestine Status: Acute Code(s): K56.0 - Paralytic ileus - Plan Patient was seen and examined, looks like he might be having for exploration by Dr. Berrios, we will follow-up as needed <Richard Chauhan - Last Filed: 07/17/18 20:04>
--- NOTE | 2018-07-17 19:07 | P.PNPL ---
Subjective Interval history: 73 YOAA male with COPD, 02 dependent Follows at [facility] Admitted with AMS, COPD exac On NC, denies sob NGT to suction. Has some stools after digital disimpaction. Physical Exam Vital signs: Vital Signs 07/16/18 19:42 07/16/18 20:00 07/16/18 22:00 Temperature 98.1 F Pulse Rate 102 H 109 H 94 H Respiratory Rate 20 21 Blood Pressure 160/74 H Pulse Oximetry 98 97 07/17/18 00:00 07/17/18 00:11 07/17/18 02:00 Temperature 98.3 F Pulse Rate 100 H 100 H Respiratory Rate 18 Blood Pressure 132/72 Pulse Oximetry 98 99 07/17/18 04:00 07/17/18 06:00 07/17/18 07:57 Temperature 98.6 F Pulse Rate 101 H 104 H 106 H Respiratory Rate 21 22 Blood Pressure 136/81 Pulse Oximetry 98 96 07/17/18 08:00 07/17/18 08:15 07/17/18 08:30 Temperature 98.5 F Pulse Rate 105 H 109 H 106 H Respiratory Rate 21 20 23 Blood Pressure 163/79 H 152/68 H 149/70 H Pulse Oximetry 98 95 95 07/17/18 08:45 07/17/18 09:00 07/17/18 10:00 Temperature Pulse Rate 108 H 109 H 99 H Respiratory Rate 22 23 16 Blood Pressure 144/57 H 146/65 H Pulse Oximetry 95 95 98 07/17/18 10:21 07/17/18 10:30 07/17/18 10:45 Temperature Pulse Rate 95 H 103 H 97 H Respiratory Rate 18 24 17 Blood Pressure 132/76 136/66 153/73 H Pulse Oximetry 99 98 98 07/17/18 11:00 07/17/18 11:15 07/17/18 11:30 Temperature Pulse Rate 90 92 H 92 H Respiratory Rate 15 16 17 Blood Pressure 137/60 143/67 H 142/70 H Pulse Oximetry 100 100 100 07/17/18 11:46 07/17/18 12:00 07/17/18 12:15 Temperature Pulse Rate 103 H 94 H 98 H Respiratory Rate 20 15 21 Blood Pressure 124/72 131/63 132/67 Pulse Oximetry 99 100 99 07/17/18 12:30 07/17/18 12:45 07/17/18 13:00 Temperature Pulse Rate 95 H 97 H 100 H Respiratory Rate 19 20 19 Blood Pressure 150/71 H 157/68 H 155/74 H Pulse Oximetry 100 100 99 07/17/18 13:15 07/17/18 13:30 07/17/18 13:45 Temperature Pulse Rate 105 H 96 H 106 H Respiratory Rate 23 16 25 H Blood Pressure 144/70 H 149/67 H 147/68 H Pulse Oximetry 99 100 97 07/17/18 14:00 07/17/18 14:15 07/17/18 14:30 Temperature Pulse Rate 104 H 100 H 102 H Respiratory Rate 30 H 24 24 Blood Pressure 144/68 H 130/68 132/70 Pulse Oximetry 97 99 98 07/17/18 14:45 07/17/18 15:00 07/17/18 15:16 Temperature Pulse Rate 111 H 100 H 101 H Respiratory Rate 29 H 21 20 Blood Pressure 128/69 156/66 H 171/63 H Pulse Oximetry 97 100 99 07/17/18 15:31 07/17/18 15:45 07/17/18 16:00 Temperature Pulse Rate 103 H 106 H 97 H Respiratory Rate 19 21 15 Blood Pressure 164/77 H 153/70 H 151/78 H Pulse Oximetry 100 99 99 07/17/18 16:15 07/17/18 16:31 07/17/18 16:45 Temperature Pulse Rate 108 H 109 H 99 H Respiratory Rate 21 22 20 Blood Pressure 148/73 H 179/72 H 134/66 Pulse Oximetry 98 100 100 07/17/18 17:00 Temperature Pulse Rate 108 H Respiratory Rate 23 Blood Pressure 141/66 H Pulse Oximetry 97 Intake & Output 07/17/18 07/17/18 07/18/18 06:59 18:59 06:59 Intake Total 1100 / 1100 300 / 300 Output Total 3410 / 3410 Balance -2310 / -2310 300 / 300 Weight 93 kg Intake: IV 600 / 600 300 / 300 Alburx 5% Inj 500 ML @ 250 mls/ 500 / 500 hr IV.SIG Q12H [facility] Rx#:[id number] KCl 20 mEq Premix Inj 20 meq In 100 / 100 300 / 300 100 ml @ 50 mls/hr IV.SIG Q2H [facility] Rx#:[id number] Oral 0 / 0 Water Bolus Amount 100 / 100 Intake (Blood Product) Amt 400 / 400 Rbc As-3 Leukoreduced Unit 400 / 400 [id number] Output: Urine Amount (Catheter) 3400 / 3400 Indwelling Urethral Catheter 3400 / 3400 Gastric Drainage Right Nare Nasogastric Tube Other: Date of Last Bowel Movement 07/17/18 07/17/18 # Bowel Movements 2 GENERAL: Obese AA male, NAD SKIN: Warm and dry. HEAD: Normocephalic. EYES: No scleral icterus. No injection or drainage. NECK: Supple, trachea midline. No JVD or lymphadenopathy. CARDIOVASCULAR: Regular rate and rhythm without murmurs, gallops, or rubs. RESPIRATORY: Breath sounds equal bilaterally. No accessory muscle use. GASTROINTESTINAL: Abdomen soft, non-tender,distended. MUSCULOSKELETAL: No cyanosis, or edema. BACK: Nontender without obvious deformity. No CVA tenderness. - Urinary Catheter Management Indwelling Urethral Catheter Cath placed during this visit: yes, but has since been removed by the nurse Reason for continuing: Acute urinary retention Insertion date: 07/14/18 Insertion time: 21:55 Removal date: 07/13/18 Removal time: 13:30 Straight Cath placed during this visit: no Assessment and Plan - Plan IMPRESSION: Hypercapnoic RF, Reintubated COPD exac AMS improved 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 Abdomenal distension, s/p decompression. PLAN: Aerosol nebs Supplement 02 Solumedrol 40 mg q day Monitor BS NGT to suction CRS following DW family at [facility].
[2018-07-18] MEDS: Insulin NovoLIN Regular Correctional Sugar Inj SQ SCH ×6 (01:14→22:25)
[2018-07-18] MEDS: Oral Hygiene Kit OROPHARYNG SCH ×4 (01:15→18:19)
[2018-07-18] MEDS: Artificial Tears Opth Drops 15 ML Bottle EACH EYE SCH ×3 (01:16→18:18)
[2018-07-18] MEDS: Albumin Human 5% Inj 500 ML IV.SIG SCH ×2 (01:17→13:25)
[2018-07-18] MEDS: Pantoprazole Inj 40 MG Vial IV.PUSH SCH ×2 (01:17→18:19)
[2018-07-18 07:07] LABS: Hematocrit 30.7 % (39.0-51.0); Hemoglobin 10.2 gm/dL (13.0-17.0); Mean Corpuscular HGB Conc 33.3 % (32.0-36.0); Mean Corpuscular Hemoglobin 30.9 pg (27.0-34.0); Mean Corpuscular Volume 92.7 fL (80.0-100.0); Platelet Count 56 th/mm3 (150-450); Red Blood Count 3.32 mil/mm3 (4.50-5.90); Red Cell Distribution Width 15.1 % (11.6-17.2); White Blood Count 7.5 th/mm3 (4.0-11.0)
[2018-07-18 07:52] LABS: Alanine Aminotransferase 58 U/L (12-78); Albumin 4.8 g/dL (3.4-5.0); Alkaline Phosphatase 56 U/L (45-117); Anion Gap 8 meq/L (5-15); Aspartate Aminotransferase 44 U/L (15-37); Blood Urea Nitrogen 59 mg/dL (7-18); Calcium 7.9 mg/dL (8.5-10.1); Chloride 99 meq/L (98-107); Glomerular Filtration Rate 30 mL/min (>89); Glucose,Random 112 mg/dL (74-106); Magnesium 1.8 mg/dL (1.5-2.5); Phosphorus 2.9 mg/dL (2.5-4.9); Sodium 146 meq/L (136-145); Total Protein 6.9 g/dL (6.4-8.2)
[2018-07-18 07:54] LABS: Potassium 2.9 meq/L (3.5-5.1)
[2018-07-18] MEDS ORDERED: Mag Sulf 1 gm/100 ml Premix 100 ML IV.SIG ONE (08:05)
--- NOTE | 2018-07-18 08:20 | P.PNCC ---
Subjective Subjective Remarks/Hospital Course: Mr. Curry is a 73-year-old -[place] male with past medical history significant for COPD on 3 L nasal cannula, hypertension, hyperlipidemia and anxiety who was admitted to the hospitalist service on 06/19/2018 for worsening shortness of breath due to COPD exacerbation. He was treated with IV Solu- Medrol, IV antibiotics, breathing treatments gradually improved. Patient was also complaining about dyspepsia and underwent EGD by GI yesterday. Per report the EGD was normal but patient developed worsening shortness of breath and COPD exacerbation postprocedure, possibly from aspiration after sedated. Two ABGs done yesterday showed hypercapnic respiratory failure second 1 was on BiPAP and this was improved with pH 7.3 with PCO2 of 74. Patient remained on BiPAP overnight however was noticed to be lethargic today a.m., stat ABG showed pH of 7.21 PCO2 110 PO2 88 while on BiPAP. Patient was lethargic intermittently dozing off due to CO2 narcosis. Critical care medicine was consulted and I immediately evaluated the patient. Patient had obviously failed BiPAP I proceeded with endotracheal intubation placed on mechanical ventilation. Postintubation I have ordered single dose of Solu-Medrol 125 mg x1 continue Solu -Medrol 60 every 8, discontinue ceftriaxone and start cefepime 2 g IV every 8 hours continue azithromycin. Add budesonide inhaled, placed on scheduled DuoNeb every 4 hours and as needed. 06/27: Patient was intubated yesterday for severe hypercapnic respiratory failure. Currently remains intubated sedated and intubated remains diminished bilaterally. Heavily sedated for ventilator synchrony 06/28: Urine output significantly improved with fluid resuscitation. Creat down trending now 2 from 2.3, UO >3.3 L. Remains intubated sedated. Will initiate daily sedation vacation and CPAP trials 06/29: More awake today tolerating CPAP trials intermittently follows commands but gets agitated/frustrated fast. Urine output remains excellent creatinine 1.4. However sodium increasing 158 today. 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 Due to hypoglycemia will change to quarter normal saline at 150 mL/h repeat CMP in the afternoon 06/30 Patient was extubated yesterday. Awake 07/01 Patient is lying in bed in NAD. T: 100.5 07/02: Intubated early this morning due to acute hypoxic respiratory failure. Central line placed due to hypotension. Plan for GI perform endoscopic decompression of this large bowel today. Arousable and does follow commands. Placed on argatroban 07/03: Currently, intubated with borderline blood pressure. Central line placed yesterday due to hypotension. Did not move bowels despite 1 L of fluid from colonoscopy yesterday and multiple laxatives provided. See orders for additional laxatives today. Might need neostigmine. 07/04 Patient remains intubated and sedated with Diprivan. Given Neostigmine last night. KUB this morning showed colonic ileus. Afebrile. On Argatroban. 07/05 No events overnight, sedated with Diprivan and intubated. Off Argatroban. 07/06 Patient remains intubated and sedated. Afebrile. 07/07 Patient remains intubated, s/p decompressive colonoscopy yesterday. Awake. 07/08 Patient s/p extubation yesterday. Awake and alert. 07/09 Patient is awake, alert lying in bed in NAD. Afebrile. 07/10 Patient is awake and alert, Afebrile. 07/11 Patient s/p decompressive colonoscopy yesterday. Afebrile. On Lasix drip.( UOP: 2800ml overnight). Cr: 3.0 from 2.25. 07/12 Patient is awake, alert given Neostigmine overnight. NGT to LIWS, off Lasix drip. 07/13: Resting comfortably in bed in no acute distress. 3 bowel movements documented. Remains n.p.o. Bladder pressures around 6. Potassium being replaced. Remains anemic around 7. 07/14 Patient is lying in bed in NAD. Afebrile. 07/15 No events overnight. Afebrile. 07/16: Resting in bed mild distress. Abdomen remains distended. Hemoglobin has dropped to 6.2 2 units of PRBC ordered. Patient underwent decompressive colonoscopy by Dr. Berrios for colonic ileus 07/17: No significant overnight events, patient states that he wants to get out of bed to a chair as he is having rectal discomfort. 07/18: Patient reportedly had a BM after digital rectal exam yesterday, states that he's been passing flatus "every now and then" overnight. No plans for OR or sigmoidoscopy as per colorectal service, [place] [facility] [place] Vital Signs / I&O: Vital Signs 07/17/18 08:15 07/17/18 08:30 07/17/18 08:45 Temperature Pulse Rate 109 H 106 H 108 H Respiratory Rate 20 23 22 Blood Pressure 152/68 H 149/70 H 144/57 H Pulse Oximetry 95 95 95 07/17/18 09:00 07/17/18 10:00 07/17/18 10:21 Temperature Pulse Rate 109 H 99 H 95 H Respiratory Rate 23 16 18 Blood Pressure 146/65 H 132/76 Pulse Oximetry 95 98 99 07/17/18 10:30 07/17/18 10:45 07/17/18 11:00 Temperature Pulse Rate 103 H 97 H 90 Respiratory Rate 24 17 15 Blood Pressure 136/66 153/73 H 137/60 Pulse Oximetry 98 98 100 07/17/18 11:15 07/17/18 11:30 07/17/18 11:46 Temperature Pulse Rate 92 H 92 H 103 H Respiratory Rate 16 17 20 Blood Pressure 143/67 H 142/70 H 124/72 Pulse Oximetry 100 100 99 07/17/18 12:00 07/17/18 12:15 07/17/18 12:30 Temperature Pulse Rate 94 H 98 H 95 H Respiratory Rate 15 21 19 Blood Pressure 131/63 132/67 150/71 H Pulse Oximetry 100 99 100 07/17/18 12:45 07/17/18 13:00 07/17/18 13:15 Temperature Pulse Rate 97 H 100 H 105 H Respiratory Rate 20 19 23 Blood Pressure 157/68 H 155/74 H 144/70 H Pulse Oximetry 100 99 99 07/17/18 13:30 07/17/18 13:45 07/17/18 14:00 Temperature Pulse Rate 96 H 106 H 104 H Respiratory Rate 16 25 H 30 H Blood Pressure 149/67 H 147/68 H 144/68 H Pulse Oximetry 100 97 97 07/17/18 14:15 07/17/18 14:30 07/17/18 14:45 Temperature Pulse Rate 100 H 102 H 111 H Respiratory Rate 24 24 29 H Blood Pressure 130/68 132/70 128/69 Pulse Oximetry 99 98 97 07/17/18 15:00 07/17/18 15:16 07/17/18 15:31 Temperature Pulse Rate 100 H 101 H 103 H Respiratory Rate 21 20 19 Blood Pressure 156/66 H 171/63 H 164/77 H Pulse Oximetry 100 99 100 07/17/18 15:45 07/17/18 16:00 07/17/18 16:15 Temperature Pulse Rate 106 H 97 H 108 H Respiratory Rate 21 15 21 Blood Pressure 153/70 H 151/78 H 148/73 H Pulse Oximetry 99 99 98 07/17/18 16:31 07/17/18 16:45 07/17/18 17:00 Temperature Pulse Rate 109 H 99 H 108 H Respiratory Rate 22 20 23 Blood Pressure 179/72 H 134/66 141/66 H Pulse Oximetry 100 100 97 07/17/18 18:00 07/17/18 19:44 07/17/18 19:45 Temperature Pulse Rate 109 H 113 H Respiratory Rate 16 Blood Pressure 159/79 H Pulse Oximetry 98 07/17/18 20:00 07/17/18 20:15 07/17/18 20:30 Temperature 98.3 F Pulse Rate 105 H 110 H 104 H Respiratory Rate 16 17 20 Blood Pressure 162/69 H 155/67 H 157/78 H Pulse Oximetry 98 96 98 07/17/18 20:45 07/17/18 21:00 07/17/18 21:15 Temperature Pulse Rate 100 H 89 83 Respiratory Rate 15 12 13 Blood Pressure 149/65 H 141/66 H 138/66 Pulse Oximetry 95 95 95 07/17/18 21:30 07/17/18 21:45 07/17/18 22:00 Temperature Pulse Rate 83 81 84 Respiratory Rate 12 13 13 Blood Pressure 130/56 L 135/63 136/61 Pulse Oximetry 97 98 97 07/17/18 22:15 18 22:30 07/17/18 22:45 Temperature Pulse Rate 89 86 87 Respiratory Rate 12 17 14 Blood Pressure 133/62 133/61 134/65 Pulse Oximetry 97 99 96 07/17/18 23:00 07/17/18 23:15 07/17/18 23:30 Temperature Pulse Rate 86 84 85 Respiratory Rate 13 12 13 Blood Pressure 145/68 H 139/59 L 137/64 Pulse Oximetry 96 96 96 07/17/18 23:45 11/16/18 00:00 07/18/18 00:01 Temperature 98.4 F Pulse Rate 89 99 H 98 H Respiratory Rate 17 26 H 19 Blood Pressure 130/62 140/72 Pulse Oximetry 93 L 92 L 92 L 07/18/18 00:16 07/18/18 00:30 07/18/18 00:45 Temperature Pulse Rate 96 H 94 H 103 H Respiratory Rate 28 H 26 H 24 Blood Pressure 154/67 H 155/70 H 151/72 H Pulse Oximetry 93 L 92 L 96 07/18/18 01:00 07/18/18 01:15 07/18/18 01:30 Temperature Pulse Rate 109 H 102 H 100 H Respiratory Rate 22 20 16 Blood Pressure 151/69 H 145/67 H 157/76 H Pulse Oximetry 99 100 100 07/18/18 01:45 07/18/18 02:00 07/18/18 02:15 Temperature Pulse Rate 106 H 106 H 106 H Respiratory Rate 26 H 21 24 Blood Pressure 150/74 H 150/77 H 139/76 Pulse Oximetry 100 100 98 07/18/18 02:31 07/18/18 02:45 07/18/18 03:00 Temperature Pulse Rate 103 H 102 H 99 H Respiratory Rate 23 21 18 Blood Pressure 160/134 H 163/81 H 162/77 H Pulse Oximetry 97 99 100 07/18/18 04:00 07/18/18 05:01 07/18/18 06:00 Temperature 98.4 F Pulse Rate 102 H 101 H 94 H Respiratory Rate 30 H 18 20 Blood Pressure 129/76 163/74 H Pulse Oximetry 100 100 100 07/18/18 06:01 07/18/18 07:00 07/18/18 07:33 Temperature Pulse Rate 94 H 109 H 109 H Respiratory Rate 21 19 16 Blood Pressure 155/71 H 169/74 H Pulse Oximetry 100 99 07/18/18 07:35 Temperature Pulse Rate Respiratory Rate Blood Pressure Pulse Oximetry 98 Intake & Output 07/17/18 07/18/18 07/18/18 18:59 06:59 18:59 Intake Total 1360 / 1360 100 / 100 500 / 500 Output Total 4250 / 4250 2150 / 2150 Balance -2890 / -2890 -2050 / -2050 500 / 500 Weight 86 kg Intake: IV 1360 / 1360 500 / 500 Alburx 5% Inj 500 ML @ 250 mls/ 500 / 500 500 / 500 hr IV.SIG Q12H [facility] Rx#:[id number] Calcium Chloride Inj 1 GM In NS 110 / 110 Inj 100 ML @ 110 mls/hr IV.SIG ONCE ONE Rx#:[id number] Magnesium Sulfate Inj 2 GM In 100 / 100 NS Inj 96 ML @ 50 mls/hr IV.SIG ONCE ONE Rx#:[id number] KCl 20 mEq Premix Inj 20 meq In 400 / 400 100 ml @ 50 mls/hr IV.SIG Q2H [facility] Rx#:[id number] Oral 0 / 0 Tube Feeding 0 / 0 Tube Irrigant 100 / 100 Water Bolus Amount 0 / 0 Anesthesia Amount 0 / 0 Output: Urine 0 / 0 Stool 0 / 0 Urine/Stool Mix 0 / 0 Pleural Fluid 0 / 0 Urine Amount (Catheter) 4250 / 4250 2150 / 2150 Indwelling Urethral Catheter 4250 / 4250 2150 / 2150 Gastric Drainage 0 / 0 Right Nare Nasogastric Tube 0 / 0 Other: # Voids 0 # Incontinent Voids 0 Date of Last Bowel Movement 07/17/18 07/17/18 # Bowel Movements 3 1 # Incontinent Bowel Movements 1 Result Diagrams: 07/18/18 05:10 07/18/18 05:10 Objective Remarks: GENERAL: Elderly male sitting in bed, appears comfortable, no acute distress SKIN: Warm and dry HEAD: Normocephalic. EYES: PERRL NECK: Supple, trachea midline. No JVD or lymphadenopathy. CARDIOVASCULAR: Borderline tachy to 100s, regular RESPIRATORY: B/l equal air entry GASTROINTESTINAL: Abdomen distended but somewhat improved from yesterday, non- tender throughout, no guarding or rebound MUSCULOSKELETAL: 1+ bilateral upper/ lower extremity edema Neuro: Awake and alert. Follows commands x4, generalized weakness. Normal speech Assessment and Plan - Assessment and Plan Plan: ASSESSMENT: Hypercapnic respiratory failure Acute COPD exacerbation Altered mental status due to CO2 narcosis Acute kidney injury/failure Anemia requiring transfusion Colonic ileus Hypertension Leukocytosis Hyperglycemia COPD Hypernatremia Hypopotassemia Normocytic anemia Thrombocytopenia Hyperphosphatemia PLAN: NEURO: -Monitor neuro status, avoid sedatives -Awake and alert RESP: -Extubated 06/29. Reintubated 07/02 extubated again 07/07 -DuoNeb every 4 hours scheduled and butyryl aerosols every 2 hours as needed -Wean methylprednisolone succinate from 40 mg to 20 mg daily -Inhaled budesonide CV: - Monitor HR and BP keep MAP>65mmHg -Continue with BP meds, Cardizem 60mg Q6 -Sinus tach most likely due to discomfort GI: -Seen by Dr. Berrios ([facility]) for decompressive colonoscopy by Dr. Berrios performed on 07/15/2018. -KUB 07/14: Ileus. Get follow-up KUB today -KUB 07/13: Stable nonobstructive colonic distention. Given Neostigmine 07/11. -NGT to gravity -s/p repeat decompressive colonoscopy 07/10 and 07/15 -IV famotidine -On docusate sodium/senna 1 tablet twice daily, lactulose 30 cc 4 times daily -OK [place] [facility] [place], would still keep NPO for now FEN/: -Monitor renal function, I/O's, avoid nephrotoxins -Renal function slowly improving with Cr: 3.63--> 2.57. -Bumex gtt discontinued by nephro yesterday, UO 5L in 24 hours -Renal- Dr. Figueroa ID: -Off abx monitor for signs of infections (Fever, WBC) WBC stable -BC and urine cx from 07/11- NG in 5 days -07/02 BC: NGTS, sputum cx 07/02:normal resp justyn -ID is following- Dr. Bronw PRN HEME: -Monitor CBC, coags, Hep PLT is positive. ANNMARIE negative. Hematology is following. Off argatroban drip -s/p 2U PRBCs yesterday, Hg this morning is stable -Stable thrombocytopenia -Patient encouraged to ambulate with PT ENDO: -Electrolyte replacement per protocol -Sliding scale insulin medium scale PROPH: -Bilateral lower extremity SCDs. PPI -Doppler US LE negative DVT 07/02 LINES: -Utilize peripheral IVs Level 2 Patient is stable for [place] [facility] [place] To help prompt me to consider important information that might be impacting today's encounter and assessment, information from prior notes written by myself or my colleagues may have been "brought forward" into today's note. My signature on this note, however, is an attestation that I personally performed the exam, history, and/or decision-making noted today, and, unless otherwise indicated, the interactions with patient, family, and staff as well as the review of records all occurred today. I also attest that the listed assessment and stated plan reflect my best clinical judgment today based on the combination of historical information, prior notes, and today's exam/ interactions. Code Status: Full
[2018-07-18] MEDS: Methylnaltrexone Inj 12 MG/0.6 ML Vial SQ SCH (09:32)
[2018-07-18] MEDS: Bisacodyl 10 MG Supp RECTAL SCH (09:33)
[2018-07-18] MEDS: Hydrocortisone Acetate 25 MG Supp RECTAL SCH (09:33)
[2018-07-18] MEDS: dilTIAZem 60 MG Tablet PO SCH ×4 (09:33→22:32)
[2018-07-18] MEDS: Potassium Chlor 20 mEq Premix 20 MEQ/100 ML PIGGYBACK IV.SIG SCH ×4 (09:34→15:45)
[2018-07-18] MEDS: Chlorhexidine 0.12% Oral Kit 15 ML UDC OROPHARYNG SCH ×2 (09:34→22:37)
[2018-07-18] MEDS: MethylPREDNISolone Sod Succinate Inj 40 MG/ML Vial IV.PUSH SCH (10:38)
--- NOTE | 2018-07-18 10:38 | P.PNNP ---
Subjective Interval history: Patient is doing better, abdominal distention is slightly improved, he has NG tube in place, he wants to eat food Physical Exam Vital signs: Vital Signs 07/17/18 10:45 07/17/18 11:00 07/17/18 11:15 Temperature Pulse Rate 97 H 90 92 H Respiratory Rate 17 15 16 Blood Pressure 153/73 H 137/60 143/67 H Pulse Oximetry 98 100 100 07/17/18 11:30 07/17/18 11:46 07/17/18 12:00 Temperature Pulse Rate 92 H 103 H 94 H Respiratory Rate 17 20 15 Blood Pressure 142/70 H 124/72 131/63 Pulse Oximetry 100 99 100 07/17/18 12:15 07/17/18 12:30 07/17/18 12:45 Temperature Pulse Rate 98 H 95 H 97 H Respiratory Rate 21 19 20 Blood Pressure 132/67 150/71 H 157/68 H Pulse Oximetry 99 100 100 07/17/18 13:00 07/17/18 13:15 07/17/18 13:30 Temperature Pulse Rate 100 H 105 H 96 H Respiratory Rate 19 23 16 Blood Pressure 155/74 H 144/70 H 149/67 H Pulse Oximetry 99 99 100 07/17/18 13:45 07/17/18 14:00 07/17/18 14:15 Temperature Pulse Rate 106 H 104 H 100 H Respiratory Rate 25 H 30 H 24 Blood Pressure 147/68 H 144/68 H 130/68 Pulse Oximetry 97 97 99 07/17/18 14:30 07/17/18 14:45 07/17/18 15:00 Temperature Pulse Rate 102 H 111 H 100 H Respiratory Rate 24 29 H 21 Blood Pressure 132/70 128/69 156/66 H Pulse Oximetry 98 97 100 07/17/18 15:16 07/17/18 15:31 07/17/18 15:45 Temperature Pulse Rate 101 H 103 H 106 H Respiratory Rate 20 19 21 Blood Pressure 171/63 H 164/77 H 153/70 H Pulse Oximetry 99 100 99 07/17/18 16:00 07/17/18 16:15 07/17/18 16:31 Temperature Pulse Rate 97 H 108 H 109 H Respiratory Rate 15 21 22 Blood Pressure 151/78 H 148/73 H 179/72 H Pulse Oximetry 99 98 100 07/17/18 16:45 07/17/18 17:00 07/17/18 18:00 Temperature Pulse Rate 99 H 108 H 109 H Respiratory Rate 20 23 Blood Pressure 134/66 141/66 H Pulse Oximetry 100 97 07/17/18 19:44 07/17/18 19:45 07/17/18 20:00 Temperature 98.3 F Pulse Rate 113 H 105 H Respiratory Rate 16 16 Blood Pressure 159/79 H 162/69 H Pulse Oximetry 98 98 07/17/18 20:15 07/17/18 20:30 07/17/18 20:45 Temperature Pulse Rate 110 H 104 H 100 H Respiratory Rate 17 20 15 Blood Pressure 155/67 H 157/78 H 149/65 H Pulse Oximetry 96 98 95 07/17/18 21:00 07/17/18 21:15 07/17/18 21:30 Temperature Pulse Rate 89 83 83 Respiratory Rate 12 13 12 Blood Pressure 141/66 H 138/66 130/56 L Pulse Oximetry 95 95 97 07/17/18 21:45 07/17/18 22:00 07/17/18 22:15 Temperature Pulse Rate 81 84 89 Respiratory Rate 13 13 12 Blood Pressure 135/63 136/61 133/62 Pulse Oximetry 98 97 97 07/17/18 22:30 07/17/18 22:45 07/17/18 23:00 Temperature Pulse Rate 86 87 86 Respiratory Rate 17 14 13 Blood Pressure 133/61 134/65 145/68 H Pulse Oximetry 99 96 96 07/17/18 23:15 07/17/18 23:30 07/17/18 23:45 Temperature Pulse Rate 84 85 89 Respiratory Rate 12 13 17 Blood Pressure 139/59 L 137/64 130/62 Pulse Oximetry 96 96 93 L 07/18/18 00:00 07/18/18 00:01 07/18/18 00:16 Temperature 98.4 F Pulse Rate 99 H 98 H 96 H Respiratory Rate 26 H 19 28 H Blood Pressure 140/72 154/67 H Pulse Oximetry 92 L 92 L 93 L 07/18/18 00:30 07/18/18 00:45 07/18/18 01:00 Temperature Pulse Rate 94 H 103 H 109 H Respiratory Rate 26 H 24 22 Blood Pressure 155/70 H 151/72 H 151/69 H Pulse Oximetry 92 L 96 99 07/18/18 01:15 07/18/18 01:30 07/18/18 01:45 Temperature Pulse Rate 102 H 100 H 106 H Respiratory Rate 20 16 26 H Blood Pressure 145/67 H 157/76 H 150/74 H Pulse Oximetry 100 100 100 07/18/18 02:00 07/18/18 02:15 07/18/18 02:31 Temperature Pulse Rate 106 H 106 H 103 H Respiratory Rate 21 24 23 Blood Pressure 150/77 H 139/76 160/134 H Pulse Oximetry 100 98 97 07/18/18 02:45 07/18/18 03:00 07/18/18 04:00 Temperature 98.4 F Pulse Rate 102 H 99 H 102 H Respiratory Rate 21 18 30 H Blood Pressure 163/81 H 162/77 H 129/76 Pulse Oximetry 99 100 100 07/18/18 05:01 07/18/18 06:00 07/18/18 06:01 Temperature Pulse Rate 101 H 94 H 94 H Respiratory Rate 18 20 21 Blood Pressure 163/74 H 155/71 H Pulse Oximetry 100 100 100 07/18/18 07:00 07/18/18 07:33 07/18/18 07:35 Temperature Pulse Rate 109 H 109 H Respiratory Rate 19 16 Blood Pressure 169/74 H Pulse Oximetry 99 98 07/18/18 08:00 07/18/18 09:00 07/18/18 10:00 Temperature 98.7 F Pulse Rate 110 H 105 H 111 H Respiratory Rate 17 16 24 Blood Pressure 147/64 H 120/59 L Pulse Oximetry 99 99 98 07/18/18 10:11 Temperature Pulse Rate 118 H Respiratory Rate 26 H Blood Pressure 97/73 L Pulse Oximetry 97 Intake & Output 07/17/18 07/18/18 07/18/18 18:59 06:59 18:59 Intake Total 1360 / 1360 100 / 100 500 / 500 Output Total 4250 / 4250 2150 / 2150 Balance -2890 / -2890 -2050 / -2050 500 / 500 Weight 86 kg Intake: IV 1360 / 1360 500 / 500 Alburx 5% Inj 500 ML @ 250 mls/ 500 / 500 500 / 500 hr IV.SIG Q12H [facility] Rx#:[id number] Calcium Chloride Inj 1 GM In NS 110 / 110 Inj 100 ML @ 110 mls/hr IV.SIG ONCE ONE Rx#:[id number] Magnesium Sulfate Inj 2 GM In 100 / 100 NS Inj 96 ML @ 50 mls/hr IV.SIG ONCE ONE Rx#:[id number] KCl 20 mEq Premix Inj 20 meq In 400 / 400 100 ml @ 50 mls/hr IV.SIG Q2H [facility] Rx#:[id number] Oral 0 / 0 Tube Feeding 0 / 0 Tube Irrigant 100 / 100 Water Bolus Amount 0 / 0 Anesthesia Amount 0 / 0 Output: Urine 0 / 0 Stool 0 / 0 Urine/Stool Mix 0 / 0 Pleural Fluid 0 / 0 Urine Amount (Catheter) 4249 / 0 2149 / 2149 Indwelling Urethral Catheter 4249 Gastric Drainage 0 / 0 Right Nare Nasogastric Tube 0 / 0 Other: # Voids 0 # Incontinent Voids 0 Date of Last Bowel Movement 07/17/18 07/17/18 # Bowel Movements 3 1 # Incontinent Bowel Movements 1 Narrative: GENERAL: Sick appearing patient with NG tube SKIN: Warm and dry. HEAD: Normocephalic. EYES: No scleral icterus. No injection or drainage. NECK: Supple, trachea midline. No JVD or lymphadenopathy. CARDIOVASCULAR: Regular rate and rhythm without murmurs, gallops, or rubs. RESPIRATORY: Breath sounds diminished air entry at bases GASTROINTESTINAL: Abdomen distended bowel sounds are hypoactive. EXTREMITIES: 2+/3 edema NEUROLOGICAL: Awake, alert, and oriented x 3. Non-focal. - Urinary Catheter Management Indwelling Urethral Catheter Cath placed during this visit: yes, but has since been removed by the nurse Reason for continuing: Acute urinary retention Insertion date: 07/14/18 Insertion time: 21:55 Removal date: 07/13/18 Removal time: 13:30 Straight Cath placed during this visit: no Assessment and Plan - Assessment (1) Acute renal failure Code(s): N17.9 - Acute kidney failure, unspecified Status: Acute (2) Anasarca Code(s): R60.1 - Generalized edema Status: Acute (3) Abdominal distention Code(s): R14.0 - Abdominal distension (gaseous) Status: Acute (4) Ileus Code(s): K56.7 - Ileus, unspecified Status: Acute - Plan ALLYSON with non-oliguric ATN Creatinine 3 -> 3.4, 4.44.7-4.3 -3.6-- 2.5 patient urine output is improved 5 L off Bumex drip, Abdominal distention has improved continue conservative approach Hemoglobin is stable Replace potassium Will continue to monitor Continue to follow with GI and surgery for ileus Monitor BMP
--- NOTE | 2018-07-18 17:59 | P.PNPL ---
Subjective Interval history: 73 YOAA male with COPD, 02 dependent Follows at [facility] Admitted with AMS, COPD exac On NC, denies sob Had Stools after digital exam Passes gas Feels hungry Physical Exam Vital signs: Vital Signs 07/17/18 18:00 07/17/18 19:44 07/17/18 19:45 Temperature Pulse Rate 109 H 113 H Respiratory Rate 16 Blood Pressure 159/79 H Pulse Oximetry 98 07/17/18 20:00 07/17/18 20:15 07/17/18 20:30 Temperature 98.3 F Pulse Rate 105 H 110 H 104 H Respiratory Rate 16 17 20 Blood Pressure 162/69 H 155/67 H 157/78 H Pulse Oximetry 98 96 98 07/17/18 20:45 07/17/18 21:00 07/17/18 21:15 Temperature Pulse Rate 100 H 89 83 Respiratory Rate 15 12 13 Blood Pressure 149/65 H 141/66 H 138/66 Pulse Oximetry 95 95 95 07/17/18 21:30 07/17/18 21:45 07/17/18 22:00 Temperature Pulse Rate 83 81 84 Respiratory Rate 12 13 13 Blood Pressure 130/56 L 135/63 136/61 Pulse Oximetry 97 98 97 07/17/18 22:15 07/17/18 22:30 07/17/18 22:45 Temperature Pulse Rate 89 86 87 Respiratory Rate 12 17 14 Blood Pressure 133/62 133/61 134/65 Pulse Oximetry 97 99 96 07/17/18 23:00 07/17/18 23:15 07/17/18 23:30 Temperature Pulse Rate 86 84 85 Respiratory Rate 13 12 13 Blood Pressure 145/68 H 139/59 L 137/64 Pulse Oximetry 96 96 96 07/17/18 23:45 07/18/18 00:00 07/18/18 00:01 Temperature 98.4 F Pulse Rate 89 99 H 98 H Respiratory Rate 17 26 H 19 Blood Pressure 130/62 140/72 Pulse Oximetry 93 L 92 L 92 L 07/18/18 00:16 07/18/18 00:30 07/18/18 00:45 Temperature Pulse Rate 96 H 94 H 103 H Respiratory Rate 28 H 26 H 24 Blood Pressure 154/67 H 155/70 H 151/72 H Pulse Oximetry 93 L 92 L 96 07/18/18 01:00 07/18/18 01:15 07/18/18 01:30 Temperature Pulse Rate 109 H 102 H 100 H Respiratory Rate 22 20 16 Blood Pressure 151/69 H 145/67 H 157/76 H Pulse Oximetry 99 100 100 07/18/18 01:45 07/18/18 02:00 07/18/18 02:15 Temperature Pulse Rate 106 H 106 H 106 H Respiratory Rate 26 H 21 24 Blood Pressure 150/74 H 150/77 H 139/76 Pulse Oximetry 100 100 98 07/18/18 02:31 07/18/18 02:45 07/18/18 03:00 Temperature Pulse Rate 103 H 102 H 99 H Respiratory Rate 23 21 18 Blood Pressure 160/134 H 163/81 H 162/77 H Pulse Oximetry 97 99 100 07/18/18 04:00 07/18/18 05:01 07/18/18 06:00 Temperature 98.4 F Pulse Rate 102 H 101 H 94 H Respiratory Rate 30 H 18 20 Blood Pressure 129/76 163/74 H Pulse Oximetry 100 100 100 07/18/18 06:01 07/18/18 07:00 07/18/18 07:33 Temperature Pulse Rate 94 H 109 H 109 H Respiratory Rate 21 19 16 Blood Pressure 155/71 H 169/74 H Pulse Oximetry 100 99 07/18/18 07:35 07/18/18 08:00 07/18/18 09:00 Temperature 98.7 F Pulse Rate 118 H 105 H Respiratory Rate 17 16 Blood Pressure 147/64 H 120/59 L Pulse Oximetry 98 99 99 07/18/18 10:00 07/18/18 10:11 07/18/18 11:38 Temperature Pulse Rate 111 H 118 H 110 H Respiratory Rate 24 26 H 22 Blood Pressure 97/73 L 125/79 Pulse Oximetry 98 97 98 07/18/18 12:00 07/18/18 12:30 07/18/18 13:28 Temperature 98.3 F Pulse Rate 111 H 111 H 112 H Respiratory Rate 38 H 17 24 Blood Pressure 126/84 162/84 H 174/95 H Pulse Oximetry 99 100 100 07/18/18 13:36 07/18/18 16:00 Temperature 97.2 F L Pulse Rate 106 H 111 H Respiratory Rate 20 20 Blood Pressure 147/87 H 159/72 H Pulse Oximetry 100 95 Intake & Output 07/17/18 07/18/1818 18:59 06:59 18:59 Intake Total 1360 / 1360 100 / 100 800 / 800 Output Total 4250 / 4250 2150 / 2150 400 / 400 Balance -2890 / -2890 -0 / -2049 400 / 400 Weight 86 kg Intake: IV 1360 / 1360 800 / 800 Alburx 5% Inj 500 ML @ 250 mls/ 500 / 500 500 / 500 hr IV.SIG Q12H [facility] Rx#:[id number] Calcium Chloride Inj 1 GM In NS 110 / 110 Inj 100 ML @ 110 mls/hr IV.SIG ONCE ONE Rx#:[id number] Magnesium Sulfate Inj 2 GM In 100 / 100 NS Inj 96 ML @ 50 mls/hr IV.SIG ONCE ONE Rx#:[id number] KCl 20 mEq Premix Inj 20 meq In 400 / 400 300 / 300 100 ml @ 50 mls/hr IV.SIG Q2H [facility] Rx#:[id number] Oral 0 / 0 Tube Feeding 0 / 0 Tube Irrigant 100 / 100 Water Bolus Amount 0 / 0 Anesthesia Amount 0 / 0 Output: Urine 0 / 0 Stool 0 / 0 Urine/Stool Mix 0 / 0 Pleural Fluid 0 / 0 Urine Amount (Catheter) 4250 / 4250 2150 / 2150 300 / 300 Indwelling Urethral Catheter 4250 / 4250 2150 / 2150 300 / 300 Gastric Drainage 0 / 0 100 / 100 Right Nare Nasogastric Tube 0 / 0 100 / 100 Other: # Voids 0 # Incontinent Voids 0 Date of Last Bowel Movement 07/17/18 07/17/18 07/18/18 # Bowel Movements 3 1 # Incontinent Bowel Movements 1 2 GENERAL: Obese AA male, NAD SKIN: Warm and dry. HEAD: Normocephalic. EYES: No scleral icterus. No injection or drainage. NECK: Supple, trachea midline. No JVD or lymphadenopathy. CARDIOVASCULAR: Regular rate and rhythm without murmurs, gallops, or rubs. RESPIRATORY: Breath sounds equal bilaterally. No accessory muscle use. GASTROINTESTINAL: Abdomen soft, non-tender, nondistended. MUSCULOSKELETAL: No cyanosis, or edema. BACK: Nontender without obvious deformity. No CVA tenderness. - Urinary Catheter Management Indwelling Urethral Catheter Cath placed during this visit: yes, but has since been removed by the nurse Reason for continuing: Acute urinary retention Insertion date: 07/14/18 Insertion time: 21:55 Removal date: 07/13/18 Removal time: 13:30 Straight Cath placed during this visit: no Assessment and Plan - Plan IMPRESSION: Hypercapnoic RF, Reintubated COPD exac AMS improved 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 Abdomenal distension, s/p decompression. PLAN: Aerosol nebs Supplement 02 Solumedrol 40 mg q day Monitor BS CRS following
[2018-07-19] MEDS: Oral Hygiene Kit OROPHARYNG SCH ×5 (00:13→23:56)
[2018-07-19] MEDS: Insulin NovoLIN Regular Correctional Sugar Inj SQ SCH ×5 (00:19→18:19)
[2018-07-19] MEDS: Artificial Tears Opth Drops 15 ML Bottle EACH EYE SCH ×4 (01:15→23:57)
[2018-07-19] MEDS: Albumin Human 5% Inj 500 ML IV.SIG SCH (01:17)
[2018-07-19] MEDS: Pantoprazole Inj 40 MG Vial IV.PUSH SCH ×2 (01:17→14:30)
[2018-07-19 08:04] LABS: Baso % (Auto) 0.1 % (0.0-2.0); Eos % (Auto) 0.2 % (0.0-4.0); Hematocrit 28.7 % (39.0-51.0); Hemoglobin 9.8 gm/dL (13.0-17.0); Lymph # (Auto) 0.3 th/mm3 (1.0-4.8); Lymph % (Auto) 4.5 % (9.0-44.0); Mean Corpuscular HGB Conc 34.1 % (32.0-36.0); Mean Corpuscular Hemoglobin 31.6 pg (27.0-34.0); Mean Corpuscular Volume 92.6 fL (80.0-100.0); Mean Platelet Volume 10.2 fL (7.0-11.0); Mono # (Auto) 0.3 th/mm3 (0.0-0.9); Mono % (Auto) 5.1 % (0.0-8.0); Neut # (Auto) 5.5 th/mm3 (1.8-7.7); Neut % (Auto) 90.1 % (16.0-70.0); Platelet Count 51 th/mm3 (150-450); Red Cell Distribution Width 15.3 % (11.6-17.2); White Blood Count 6.1 th/mm3 (4.0-11.0)
[2018-07-19 08:35] LABS: Alanine Aminotransferase 61 U/L (12-78); Albumin 5.1 g/dL (3.4-5.0); Anion Gap 8 meq/L (5-15); Aspartate Aminotransferase 37 U/L (15-37); Blood Urea Nitrogen 49 mg/dL (7-18); Calcium 7.8 mg/dL (8.5-10.1); Carbon Dioxide 38.5 meq/L (21.0-32.0); Chloride 99 meq/L (98-107); Glomerular Filtration Rate 48 mL/min (>89); Glucose,Random 161 mg/dL (74-106); Magnesium 1.3 mg/dL (1.5-2.5); Potassium 3.3 meq/L (3.5-5.1); Sodium 145 meq/L (136-145)
[2018-07-19 08:38] LABS: Alkaline Phosphatase 53 U/L (45-117); Total Protein 7.2 g/dL (6.4-8.2)
[2018-07-19] MEDS: Chlorhexidine 0.12% Oral Kit 15 ML UDC OROPHARYNG SCH ×2 (08:41→20:50)
[2018-07-19] MEDS: Methylnaltrexone Inj 12 MG/0.6 ML Vial SQ SCH (08:42)
[2018-07-19] MEDS: dilTIAZem 60 MG Tablet PO SCH ×6 (08:42→20:54)
[2018-07-19] MEDS: MethylPREDNISolone Sod Succinate Inj 40 MG/ML Vial IV.PUSH SCH (08:42)
[2018-07-19] MEDS: Bisacodyl 10 MG Supp RECTAL SCH (08:42)
--- NOTE | 2018-07-19 10:13 | P.PNCS ---
Subjective Interval history: afebrile, VSS UO good no N/V Objective Result Diagrams: 07/19/18 05:56 07/19/18 05:56 Objective Remarks: PE alert Abd - rounded, +tympany, lg stool with rectal exam, no BRB Assessment and Plan - Plan Imp: sit up -OOB supp try to avoid surgery, plat still 59K start PO
--- NOTE | 2018-07-19 10:28 | P.PN ---
Subjective Interval history: Follow up for COPD, acute respiratory failure s/p intubation 06/26-07/07, colonic ileus s/p decompressive colonoscopy by Dr. Berrios. The patient is seen with RN and RT at bedside. The patient has some abdominal breathing, currently receiving duoneb. He reports some shortness of breath. He speaks in small sentences. Denies any chest pain but does report diffuse body pains. Denies cough or fevers/chills. Reportedly had 2 BMs overnight however abdomen still firm on exam. Physical Exam Vital signs: Vital Signs 07/18/18 10:00 07/18/18 10:11 07/18/18 11:30 Temperature 98 F Pulse Rate 111 H 118 H 97 H Respiratory Rate 24 26 H 18 Blood Pressure 97/73 L 159/78 H Pulse Oximetry 98 97 96 07/18/18 11:38 07/18/18 12:00 07/18/18 12:30 Temperature 98.3 F Pulse Rate 110 H 111 H 111 H Respiratory Rate 22 38 H 17 Blood Pressure 125/79 126/84 162/84 H Pulse Oximetry 98 99 100 07/18/18 13:28 07/18/18 13:36 07/18/18 16:00 Temperature 97.2 F L Pulse Rate 112 H 106 H 111 H Respiratory Rate 24 20 20 Blood Pressure 174/95 H 147/87 H 159/72 H Pulse Oximetry 100 100 95 07/18/18 20:00 07/18/18 20:34 07/18/18 22:32 Temperature 97.6 F Pulse Rate 108 H 111 H Respiratory Rate 17 20 19 Blood Pressure 160/80 H Pulse Oximetry 94 L 100 07/19/18 03:45 07/19/18 03:55 07/19/18 04:44 Temperature 97.6 F Pulse Rate 100 H Respiratory Rate 18 19 19 Blood Pressure 136/81 Pulse Oximetry 93 L 07/19/18 08:00 07/19/18 08:18 Temperature 97.7 F Pulse Rate 101 H 65 Respiratory Rate 21 16 Blood Pressure 173/81 H Pulse Oximetry 93 L 95 Intake & Output 07/18/18 07/19/18 07/19/18 18:59 06:59 18:59 Intake Total 1450 / 1450 500 / 500 Output Total 500 / 500 1100 / 1100 Balance 950 / 950 -600 / -600 Weight 86.183 kg Intake: IV 1400 / 1400 500 / 500 Alburx 5% Inj 500 ML @ 250 mls/ 1000 / 1000 500 / 500 hr IV.SIG Q12H [facility] Rx#:[id number] KCl 20 mEq Premix Inj 20 meq In 400 / 400 100 ml @ 50 mls/hr IV.SIG Q2H [facility] Rx#:[id number] Oral 50 / 50 Output: Urine 100 / 100 1100 / 1100 Urine Amount (Catheter) 300 / 300 Indwelling Urethral Catheter 300 / 300 Gastric Drainage 100 / 100 Right Nare Nasogastric Tube 100 / 100 Other: Date of Last Bowel Movement 07/18/18 07/18/18 # Bowel Movements 2 1 # Incontinent Bowel Movements 2 Narrative: GENERAL: Well-nourished, well-developed female patient in NAD. SKIN: Warm and dry. No rash. HEENT: Normocephalic. Atraumatic. Pupils equal and round. Mucous membranes pink and moist. NECK: Trachea midline. CARDIOVASCULAR: Regular rate and rhythm. No murmur appreciated. RESPIRATORY: Mild abdominal breathing. Decreased inspiratory effort, otherwise clear to auscultation. Breath sounds equal bilaterally. GASTROINTESTINAL: Abdomen firm, mildly distended, nontender. Normoactive bowel sounds x4. MUSCULOSKELETAL: No obvious deformities. 1+ BLE edema. NEUROLOGICAL: Awake and alert. No obvious cranial nerve deficits. Moving all extremities spontaneously. Normal speech. - Urinary Catheter Management Indwelling Urethral Catheter Cath placed during this visit: yes, but has since been removed by the nurse Reason for continuing: Acute urinary retention Insertion date: 07/14/18 Insertion time: 21:55 Removal date: 07/13/18 Removal time: 13:30 Straight Cath placed during this visit: no Results - Labs CBC & Chem 7: 07/19/18 05:56 07/19/18 05:56 Laboratory Results - last 24 hr 07/18/18 07/18/18 07/18/18 12:05 17:34 22:11 WBC RBC Hgb Hct MCV MCH MCHC RDW Plt Count MPV Prelim Diff (Auto) Neut % (Auto) Lymph % (Auto) [place] % (Auto) Eos % (Auto) Baso % (Auto) Neut # (Auto) Lymph # (Auto) [place] # (Auto) Eos # (Auto) Baso # (Auto) WBC Differential Diff Scan Differential Comment Sodium Potassium Chloride Carbon Dioxide Anion Gap BUN Creatinine Estimated GFR POC Glucose 197 H 230 H 351 H Random Glucose Calcium Magnesium Total Bilirubin AST ALT Alkaline Phosphatase Total Protein Albumin 07/18/18 07/19/18 07/19/18 22:12 00:04 03:51 WBC RBC Hgb Hct MCV MCH MCHC RDW Plt Count MPV Prelim Diff (Auto) Neut % (Auto) Lymph % (Auto) [place] % (Auto) Eos % (Auto) Baso % (Auto) Neut # (Auto) Lymph # (Auto) [place] # (Auto) Eos # (Auto) Baso # (Auto) WBC Differential Diff Scan Differential Comment Sodium Potassium Chloride Carbon Dioxide Anion Gap BUN Creatinine Estimated GFR POC Glucose 324 H 195 H 56 L Random Glucose Calcium Magnesium Total Bilirubin AST ALT Alkaline Phosphatase Total Protein Albumin 07/19/18 07/19/18 07/19/18 04:07 04:17 05:53 WBC RBC Hgb Hct MCV MCH MCHC RDW Plt Count MPV Prelim Diff (Auto) Neut % (Auto) Lymph % (Auto) [place] % (Auto) Eos % (Auto) Baso % (Auto) Neut # (Auto) Lymph # (Auto) [place] # (Auto) Eos # (Auto) Baso # (Auto) WBC Differential Diff Scan Differential Comment Sodium Potassium Chloride Carbon Dioxide Anion Gap BUN Creatinine Estimated GFR POC Glucose 70 89 168 H Random Glucose Calcium Magnesium Total Bilirubin AST ALT Alkaline Phosphatase Total Protein Albumin 07/19/18 07/19/18 07/19/18 05:56 05:56 07:52 WBC 6.1 RBC 3.10 L Hgb 9.8 L Hct 28.7 L MCV 92.6 MCH 31.6 MCHC 34.1 RDW 15.3 Plt Count 51 L MPV 10.2 Prelim Diff (Auto) Slide review pending Neut % (Auto) 90.1 H Lymph % (Auto) 4.5 L [place] % (Auto) 5.1 Eos % (Auto) 0.2 Baso % (Auto) 0.1 Neut # (Auto) 5.5 Lymph # (Auto) 0.3 L [place] # (Auto) 0.3 Eos # (Auto) 0.0 Baso # (Auto) 0.0 WBC Differential . Diff Scan Auto diff confirmed Differential Comment . Sodium 145 Potassium 3.3 L Chloride 99 Carbon Dioxide 38.5 H Anion Gap 8 BUN 49 H Creatinine 1.70 H Estimated GFR 48 L POC Glucose 191 H Random Glucose 161 H Calcium 7.8 L Magnesium 1.3 L Total Bilirubin 1.2 H AST 37 ALT 61 Alkaline Phosphatase 53 Total Protein 7.2 Albumin 5.1 H - Procedures 06/26/18endotracheal intubation by critical care Dr. Ahn 06/26/18ultrasound-guided right IJ central line by critical care Dr. Ahn 07/02/18endotracheal intubation by critical care Dr. Ahn 07/06/18colonoscopy by : Stool in cecum, large amount of water flush, stool suctioned. Marked decompression. Rectal tube left in place. Internal hemorrhoids. 07/10/18colonoscopy by Dr. Keith: Ischemic ulcer cecum. Some semisolid stool suctioned. Marked decompression. Rectal ulcer from rectal tube. Hemorrhoids internal grade 2. 07/15/18decompressive colonoscopy by Dr. Berrios Assessment and Plan - Assessment (1) Acute exacerbation of chronic obstructive pulmonary disease (COPD) Code(s): J44.1 - Chronic obstructive pulmonary disease with (acute) exacerbation Status: Acute (2) Sinusitis Code(s): J32.9 - Chronic sinusitis, unspecified Status: Acute - Plan Mr. Curry is a 73-year-old -[place] male with past medical history significant for COPD on 3 L nasal cannula, hypertension, hyperlipidemia and anxiety who was admitted to the hospitalist service on 06/19/2018 for worsening shortness of breath due to COPD exacerbation. He was treated with IV Solu- Medrol, IV antibiotics, breathing treatments gradually improved. Patient was also complaining about dyspepsia and underwent EGD by GI . Per report the EGD was normal but patient developed worsening shortness of breath and COPD exacerbation postprocedure, possibly from aspiration after sedated. He was on bipap and then ultimately intubated on 06/26 and transferred to ICU. During ICU admission, patient was intubated from 06/26 to 06/29 and reintubated 07/02 to . Admission complicated by severe colonic ileus s/p [address] Keith 07/06, 07/10, and again decompressive colonoscopy by Dr. Berrios on 07/15. On 07/18, he was transferred out of ICU to hospitalists team. Acute Hypercapnic Respiratory Failure secondary to COPD Exacerbation with CO2 Narcosis -s/p ICU admission, intubated 06/26-06/29 and again 07/02-07/07 -Currently on Budesonide neb bid and Albuterol neb q2h prn -Continue steroids with IV Solumedrol 20mg qd -patient with some abdominal breathing and elevated CO2, check ABG -continue O2 as needed -pulmonology consulted and following, appreciate assistance Colonic Ileus: acute -s/p decompressive colonoscopies by Dr. Keith 07/06, 07/10, and again by Dr. Berrios on 07/15. -GI, GS, and CRS following, appreciate recommendations -on Dulcolax daily, and laxatives prn -monitor BMs -currently NPO -check repeat KUB today Sinus Tachycardia: HR persistently around low 100s. Suspect secondary to abdominal discomfort -Echo 06/23 with EF 55-60% -troponins negative x2 during hospitalization -monitor on telemetry -continue cardizem 60mg qid Thrombocytopenia: Plts 51K -Hep PLT is positive. ANNMARIE negative. Hematology is following. Off argatroban drip -s/p 1u pRBC transfusion on 07/13 and 2u pRBC transfusion on 07/16 -Appreciate hematology assistance ALLYSON with non-oliguric ATN: acute -Creatinine increased as high as 4.72 -S/p Bumex drip, urine output improving -Nephrology following, appreciate assistance -avoid nephrotoxins -BMP improving, Cr 1.70 today Hypokalemia/Hypomagnesemia: likely secondary to no oral intake -given KCl replacement -give IV mag sulfate 1g x2 today -repeat labs in am Elevated BG: suspect secondary to steroids -HgbA1c 5.2 on 10/11/17 -Monitor Accuchecks and cover with SSI All other chronic medical conditions stable. Continue home medications as appropriate. DVT Prophylaxis: teds/SCDs; avoid chemical prophylaxis with thrombocytopenia Discharge Planninhrs Addendum: Critical ABG with pCO2 79. Patient with +SOB. Discussed with RN and RT, order placed to go back on BiPAP and transfer back to critical care floor. Discussed with Dr. Guerin. Pulmonology to be made aware by RN. (2) Sinusitis Qualifiers: Sinusitis location: frontal Chronicity: acute Recurrence: not specified as recurrent Qualified Code(s): J01.10 - Acute frontal sinusitis, unspecified
[2018-07-19 10:57] LABS: ABG Base Excess 12.1 mmol/L (-2-2); ABG PCO2 79 mmHg (38-42); ABG PO2 96 mmHg (61-120)
--- NOTE | 2018-07-19 11:05 | P.PNNP ---
Subjective Interval history: Resting. Does not have any complaints. Denies shortness of breath, nausea, or vomiting. Slow to respond to questions. <Rossi Blake - Last Filed: 07/19/18 11:01> Physical Exam Vital signs: Vital Signs 07/18/18 11:30 07/18/18 11:38 07/18/18 12:00 Temperature 98 F 98.3 F Pulse Rate 97 H 110 H 111 H Respiratory Rate 18 22 38 H Blood Pressure 159/78 H 125/79 126/84 Pulse Oximetry 96 98 99 07/18/18 12:30 07/18/18 13:28 07/18/18 13:36 Temperature Pulse Rate 111 H 112 H 106 H Respiratory Rate 17 24 20 Blood Pressure 162/84 H 174/95 H 147/87 H Pulse Oximetry 100 100 100 07/18/18 16:00 07/18/18 20:00 07/18/18 20:34 Temperature 97.2 F L 97.6 F Pulse Rate 111 H 108 H 111 H Respiratory Rate 20 17 20 Blood Pressure 159/72 H 160/80 H Pulse Oximetry 95 94 L 100 07/18/18 22:32 07/19/18 03:45 07/19/18 03:55 Temperature 97.6 F Pulse Rate 100 H Respiratory Rate 19 18 19 Blood Pressure 136/81 Pulse Oximetry 93 L 07/19/18 04:44 07/19/18 08:00 07/19/18 08:18 Temperature 97.7 F Pulse Rate 101 H 65 Respiratory Rate 19 21 16 Blood Pressure 173/81 H Pulse Oximetry 93 L 95 Intake & Output 07/18/18 07/19/18 07/19/18 18:59 06:59 18:59 Intake Total 1450 / 1450 500 / 500 Output Total 500 / 500 1100 / 1100 Balance 950 / 950 -600 / -600 Weight 86.183 kg Intake: IV 1400 / 1400 500 / 500 Alburx 5% Inj 500 ML @ 250 mls/ 1000 / 1000 500 / 500 hr IV.SIG Q12H [facility] Rx#:[id number] KCl 20 mEq Premix Inj 20 meq In 400 / 400 100 ml @ 50 mls/hr IV.SIG Q2H [facility] Rx#:[id number] Oral 50 / 50 Output: Urine 100 / 100 1100 / 1100 Urine Amount (Catheter) 300 / 300 Indwelling Urethral Catheter 300 / 300 Gastric Drainage 100 / 100 Right Nare Nasogastric Tube 100 / 100 Other: Date of Last Bowel Movement 07/18/18 07/18/18 # Bowel Movements 2 1 # Incontinent Bowel Movements 2 Narrative: GENERAL: Well-nourished, well-developed female patient in NAD. SKIN: Warm and dry. No rash. NECK: Trachea midline. Negative JVD CARDIOVASCULAR: Regular rate and rhythm. No murmur appreciated. RESPIRATORY: Decreased inspiratory effort, otherwise clear to auscultation. Breath sounds equal bilaterally. GASTROINTESTINAL: Abdomen firm, mildly distended, nontender. Normoactive bowel sounds x4. MUSCULOSKELETAL: No obvious deformities. 1+ BLE edema. NEUROLOGICAL: Awake and alert. - Urinary Catheter Management Indwelling Urethral Catheter Cath placed during this visit: yes, but has since been removed by the nurse Reason for continuing: Acute urinary retention Insertion date: 07/14/18 Insertion time: 21:55 Removal date: 07/13/18 Removal time: 13:30 Straight Cath placed during this visit: no <Rossi Blake - Last Filed: 07/19/18 11:01> Vital signs: Vital Signs 07/20/18 21:13 07/20/18 22:00 07/20/18 22:21 Temperature Pulse Rate 99 H 88 Respiratory Rate 20 18 22 Blood Pressure 141/71 H Pulse Oximetry 100 100 07/20/18 23:00 07/21/18 00:00 07/21/18 01:21 Temperature 98 F Pulse Rate 90 88 Respiratory Rate 16 15 18 Blood Pressure 133/64 134/73 Pulse Oximetry 99 100 07/21/18 03:43 07/21/18 04:00 07/21/18 05:00 Temperature 97.8 F Pulse Rate 99 H 92 H Respiratory Rate 22 24 22 Blood Pressure 144/86 H 148/96 H Pulse Oximetry 100 99 07/21/18 06:00 07/21/18 07:00 07/21/18 08:00 Temperature 98 F Pulse Rate 94 H 97 H 98 H Respiratory Rate 21 26 H 21 Blood Pressure 116/78 144/62 H 153/70 H Pulse Oximetry 100 98 100 07/21/18 09:00 07/21/18 10:00 07/21/18 10:40 Temperature Pulse Rate 100 H 106 H 106 H Respiratory Rate 20 22 32 H Blood Pressure 132/76 Pulse Oximetry 100 100 100 11/19/18 11:00 07/21/18 11:21 07/21/18 12:00 Temperature 98.5 F Pulse Rate 106 H 104 H 105 H Respiratory Rate 24 22 30 H Blood Pressure 122/82 120/73 Pulse Oximetry 100 100 100 07/21/18 12:21 07/21/18 16:00 07/21/18 20:10 Temperature 98 F Pulse Rate 103 H 99 H 107 H Respiratory Rate 45 H 22 20 Blood Pressure 134/68 138/61 Pulse Oximetry 100 99 Intake & Output 07/21/18 07/21/18 07/22/18 06:59 18:59 06:59 Intake Total 1240 / 1240 480 / 480 Output Total 1700 / 1700 500 / 500 Balance -460 / -460 -20 / -20 Weight 79.8 kg Intake: IV 1020 / 1020 KCl Inj 40 MEQ In D5W/LR Inj 1, 1020 / 1020 000 ML @ 84 mls/hr IV.CONT . Q12H9M [facility] Rx#:[id number] Oral 120 / 120 480 / 480 Tube Feeding 0 / 0 Tube Irrigant 100 / 100 Water Bolus Amount 0 / 0 Anesthesia Amount 0 / 0 Output: Urine 1000 / 1000 500 / 500 Stool 0 / 0 Urine/Stool Mix 0 / 0 Pleural Fluid 0 / 0 Urine Amount (Catheter) 600 / 600 Condom 600 / 600 Gastric Drainage 100 / 100 Right Nare Nasogastric Tube 100 / 100 Other: # Voids 0 # Incontinent Voids 0 Date of Last Bowel Movement 07/21/18 07/20/18 # Bowel Movements 1 # Incontinent Bowel Movements 1 - Urinary Catheter Management Indwelling Urethral Catheter Cath placed during this visit: yes, but has since been removed by the nurse Reason for continuing: Acute urinary retention Insertion date: 07/14/18 Insertion time: 21:55 Removal date: 07/13/18 Removal time: 13:30 Straight Cath placed during this visit: no Condom Cath placed during this visit: no <Uyen Austin - Last Filed: 07/21/18 21:06> Assessment and Plan - Assessment (1) Acute renal failure Code(s): N17.9 - Acute kidney failure, unspecified Status: Acute (2) Anasarca Code(s): R60.1 - Generalized edema Status: Acute (3) Abdominal distention Code(s): R14.0 - Abdominal distension (gaseous) Status: Acute (4) Ileus Code(s): K56.7 - Ileus, unspecified Status: Acute - Plan ALLYSON with non-oliguric ATN Creatinine 3 -> 3.4, 4.44.7-4.3 -3.6-- 2.5 -> 1.7 Patient urine output 1.2 liters/24 hours Hemoglobin is stable 9.8 Potassium at 3.3, Replace potassium Will continue to monitor Continue to follow with GI and surgery for ileus Monitor BMP <Rossi Blake - Last Filed: 07/19/18 11:01> - Assessment (1) Acute renal failure Code(s): N17.9 - Acute kidney failure, unspecified Status: Acute (2) Anasarca Code(s): R60.1 - Generalized edema Status: Acute (3) Abdominal distention Code(s): R14.0 - Abdominal distension (gaseous) Status: Acute (4) Ileus Code(s): K56.7 - Ileus, unspecified Status: Acute - Plan Patient seen and examined, agree with above. Creatinine continue to improve. GI and Surgery following. Avoid Nephrotoxins. <Uyen Austin - Last Filed: 07/21/18 21:06>
[2018-07-19] MEDS: Mag Sulf 1 gm/100 ml Premix 100 ML IV.SIG SCH ×2 (12:09→15:48)
[2018-07-19 13:25] LABS: ABG Base Excess 12.1 mmol/L (-2-2); ABG PCO2 83 mmHg (38-42); ABG PO2 127 mmHg (61-120)
--- NOTE | 2018-07-19 13:57 | P.PNONC ---
Subjective Interval history: Afebrile Patient was transferred back to ICU with worsening ABGs Now on BiPAP No bleeding Objective Vital Signs/Intake & Output: Vital Signs 07/18/18 16:00 07/18/18 20:00 07/18/18 20:34 Temperature 97.2 F L 97.6 F Pulse Rate 111 H 108 H 111 H Respiratory Rate 20 17 20 Blood Pressure 159/72 H 160/80 H Pulse Oximetry 95 94 L 100 07/18/18 22:32 07/19/18 03:45 07/19/18 03:55 Temperature 97.6 F Pulse Rate 100 H Respiratory Rate 19 18 19 Blood Pressure 136/81 Pulse Oximetry 93 L 07/19/18 04:44 07/19/18 08:00 07/19/18 08:18 Temperature 97.7 F Pulse Rate 101 H 65 Respiratory Rate 19 21 16 Blood Pressure 173/81 H Pulse Oximetry 93 L 95 07/19/18 11:00 07/19/18 12:35 Temperature 97.7 F Pulse Rate 101 H Respiratory Rate 19 Blood Pressure 168/86 H Pulse Oximetry 97 100 Intake & Output 07/18/18 07/19/18 07/19/18 18:59 06:59 18:59 Intake Total 1450 / 1450 500 / 500 100 / 100 Output Total 500 / 500 1100 / 1100 Balance 950 / 950 -600 / -600 100 / 100 Weight 190 lb 0.016 oz Intake: IV 1400 / 1400 500 / 500 100 / 100 Alburx 5% Inj 500 ML @ 250 mls/ 1000 / 1000 500 / 500 hr IV.SIG Q12H WOLF Rx#:[id number] Magnesium Sulfate 1 gm/D5W 100 100 / 100 ml Premix 100 ML @ 100 mls/hr IV.SIG Q1H WOLF Rx#:[id number] KCl 20 mEq Premix Inj 20 meq In 400 / 400 100 ml @ 50 mls/hr IV.SIG Q2H WOLF Rx#:[id number] Oral 50 / 50 Output: Urine 100 / 100 1100 / 1100 Urine Amount (Catheter) 300 / 300 Indwelling Urethral Catheter 300 / 300 Gastric Drainage 100 / 100 Right Nare Nasogastric Tube 100 / 100 Other: Date of Last Bowel Movement 07/18/18 07/18/18 # Bowel Movements 2 1 # Incontinent Bowel Movements 2 Result Diagrams: 07/19/18 05:56 07/19/18 05:56 Laboratory Results: Laboratory Results - last 24 hr 07/18/18 07/18/18 07/18/18 17:34 22:11 22:12 WBC RBC Hgb Hct MCV MCH MCHC RDW Plt Count MPV Prelim Diff (Auto) Neut % (Auto) Lymph % (Auto) Bay % (Auto) Eos % (Auto) Baso % (Auto) Neut # (Auto) Lymph # (Auto) Bay # (Auto) Eos # (Auto) Baso # (Auto) WBC Differential Diff Scan Differential Comment Smear Path Review Puncture Site Patient Temperature O2 Saturation ABG pH ABG pCO2 ABG pO2 ABG HCO3 ABG O2 Content ABG Base Excess ABG Methemoglobin Raymon Test Hemoglobin Carboxyhemoglobin O2 Delivery Device Vent Setting Inspired O2 Critical Value Sodium Potassium Chloride Carbon Dioxide Anion Gap BUN Creatinine Estimated GFR POC Glucose 230 H 351 H 324 H Random Glucose Calcium Magnesium Total Bilirubin AST ALT Alkaline Phosphatase Total Protein Albumin 07/19/18 07/19/18 07/19/18 00:04 03:51 04:07 WBC RBC Hgb Hct MCV MCH MCHC RDW Plt Count MPV Prelim Diff (Auto) Neut % (Auto) Lymph % (Auto) Bay % (Auto) Eos % (Auto) Baso % (Auto) Neut # (Auto) Lymph # (Auto) Bay # (Auto) Eos # (Auto) Baso # (Auto) WBC Differential Diff Scan Differential Comment Smear Path Review Puncture Site Patient Temperature O2 Saturation ABG pH ABG pCO2 ABG pO2 ABG HCO3 ABG O2 Content ABG Base Excess ABG Methemoglobin Raymon Test Hemoglobin Carboxyhemoglobin O2 Delivery Device Vent Setting Inspired O2 Critical Value Sodium Potassium Chloride Carbon Dioxide Anion Gap BUN Creatinine Estimated GFR POC Glucose 195 H 56 L 70 Random Glucose Calcium Magnesium Total Bilirubin AST ALT Alkaline Phosphatase Total Protein Albumin 07/19/18 07/19/18 07/19/18 04:17 05:53 05:56 WBC 6.1 RBC 3.10 L Hgb 9.8 L Hct 28.7 L MCV 92.6 MCH 31.6 MCHC 34.1 RDW 15.3 Plt Count 51 L MPV 10.2 Prelim Diff (Auto) Slide review pending Neut % (Auto) 90.1 H Lymph % (Auto) 4.5 L Bay % (Auto) 5.1 Eos % (Auto) 0.2 Baso % (Auto) 0.1 Neut # (Auto) 5.5 Lymph # (Auto) 0.3 L Bay # (Auto) 0.3 Eos # (Auto) 0.0 Baso # (Auto) 0.0 WBC Differential . Diff Scan Auto diff confirmed Differential Comment . Smear Path Review Puncture Site Patient Temperature O2 Saturation ABG pH ABG pCO2 ABG pO2 ABG HCO3 ABG O2 Content ABG Base Excess ABG Methemoglobin Raymon Test Hemoglobin Carboxyhemoglobin O2 Delivery Device Vent Setting Inspired O2 Critical Value Sodium Potassium Chloride Carbon Dioxide Anion Gap BUN Creatinine Estimated GFR POC Glucose 89 168 H Random Glucose Calcium Magnesium Total Bilirubin AST ALT Alkaline Phosphatase Total Protein Albumin 07/19/18 07/19/18 07/19/18 05:56 05:56 07:52 WBC RBC Hgb Hct MCV MCH MCHC RDW Plt Count MPV Prelim Diff (Auto) Neut % (Auto) Lymph % (Auto) Bay % (Auto) Eos % (Auto) Baso % (Auto) Neut # (Auto) Lymph # (Auto) Bay # (Auto) Eos # (Auto) Baso # (Auto) WBC Differential Diff Scan Differential Comment Smear Path Review Puncture Site Patient Temperature O2 Saturation ABG pH ABG pCO2 ABG pO2 ABG HCO3 ABG O2 Content ABG Base Excess ABG Methemoglobin Raymon Test Hemoglobin Carboxyhemoglobin O2 Delivery Device Vent Setting Inspired O2 Critical Value Sodium 145 Potassium 3.3 L Chloride 99 Carbon Dioxide 38.5 H Anion Gap 8 BUN 49 H Creatinine 1.70 H Estimated GFR 48 L POC Glucose 191 H Random Glucose 161 H Calcium 7.8 L Magnesium 1.3 L Total Bilirubin 1.2 H AST 37 ALT 61 Alkaline Phosphatase 53 Total Protein 7.2 Albumin 5.1 H 07/19/18 07/19/18 10:50 13:17 WBC RBC Hgb Hct MCV MCH MCHC RDW Plt Count MPV Prelim Diff (Auto) Neut % (Auto) Lymph % (Auto) Bay % (Auto) Eos % (Auto) Baso % (Auto) Neut # (Auto) Lymph # (Auto) Bay # (Auto) Eos # (Auto) Baso # (Auto) WBC Differential Diff Scan Differential Comment Smear Path Review Puncture Site Left radial Left radial Patient Temperature 98.6 98.6 O2 Saturation 94 96 ABG pH 7.31 L 7.29 L* ABG pCO2 79 H* 83 H* ABG pO2 96 127 H ABG HCO3 39 H 39 H ABG O2 Content 13.0 13.0 ABG Base Excess 12.1 H 12.1 H ABG Methemoglobin 1.4 1.4 Raymon Test Present Present Hemoglobin 9.7 L 9.5 L Carboxyhemoglobin 1.9 1.7 O2 Delivery Device Nasal cannula Bipap Vent Setting [id number] Inspired O2 40 Critical Value Yes Yes Sodium Potassium Chloride Carbon Dioxide Anion Gap BUN Creatinine Estimated GFR POC Glucose Random Glucose Calcium Magnesium Total Bilirubin AST ALT Alkaline Phosphatase Total Protein Albumin Culture Results: Microbiology 07/11/18 13:50 Aerobic Blood Culture - Final Blood - Peripheral No growth in 5 days Anaerobic Blood Culture - Final No growth in 5 days 07/11/18 02:48 Aerobic Blood Culture - Final Blood - Peripheral No growth in 5 days Anaerobic Blood Culture - Final No growth in 5 days Medications: Active Medications Generic Name Dose Route Start Last Admin Trade Name Freq PRN Reason Stop Dose Admin Acetaminophen 650 mg 06/20/18 02:11 07/09/18 11:20 Tylenol PO 650 mg Q4H PRN Administration Temp > 100.4 Hydrocodone Bitart/Acetaminophen 1 tab 07/09/18 01:37 07/19/18 03:55 [place] 10/325 PO 1 tab Q4H PRN Administration pain Albuterol 2.5 mg 07/02/18 14:53 07/18/18 20:30 Albuterol Neb (Prn) NEB 2.5 mg Q2HR NEB PRN Administration DYSPNEA Artificial Tears 1 drop 07/02/18 16:00 07/19/18 08:42 Tears Naturale Opth Drops EACH EYE 1 drop Q8H WOLF Administration Bisacodyl 10 mg 06/24/18 15:15 07/19/18 08:42 Dulcolax Supp RECTAL Not Given DAILY WOLF Budesonide 0.5 mg 06/26/18 20:00 07/19/18 08:17 Pulmocort Respule Neb NEB 0.5 mg Q12HR NEB WOLF Administration Chlorhexidine Gluconate 15 ml 06/26/18 20:00 07/19/18 08:41 Peridex 0.12% Oral Kit OROPHARYNG Not Given BID@0800,2000 WOLF Diltiazem HCl 60 mg 06/30/18 09:00 07/19/18 08:42 Cardizem PO 60 mg QID WOLF Administration Duloxetine HCl 20 mg 06/23/18 18:00 10/27/18 09:09 Cymbalta PO Not Given DAILY WOLF Insulin Human Regular 0 units 06/28/18 08:00 07/19/18 08:41 Novolin R Correctional Sugar Inj SQ Not Given Q4HR WOLF Protocol Methylnaltrexone Abrams 12 mg 07/10/18 09:00 07/19/18 08:42 Relistor SQ 12 mg DAILY WOLF Administration Methylprednisolone Sodium Succinate 20 mg 07/18/18 09:00 07/19/18 08:42 Solumedrol Inj IV.PUSH 20 mg DAILY WOLF Administration Metoclopramide HCl 10 mg 07/09/18 22:00 07/19/18 05:12 Reglan Inj IV.PUSH 10 mg Q8HR WOLF Administration Protocol Metoprolol Tartrate 2.5 mg 06/27/18 15:08 07/01/18 01:26 Lopressor Inj IV.PUSH 2.5 mg Q6H PRN Administration HEART RATE GREATER THAN 115 Miscellaneous Medication 1 each 06/26/18 12:00 07/19/18 04:44 OROPHARYNG Not Given 0000,0400,1200,1600 WOLF Ondansetron HCl 4 mg 06/20/18 02:11 07/08/18 08:53 Zofran Inj IV.PUSH 4 mg Q6H PRN Administration NAUSEA OR VOMITING Pantoprazole Sodium 40 mg 07/12/18 14:00 07/19/18 01:17 Protonix Inj IV.PUSH 40 mg Q12H WOLF Administration Sodium Biphosphate/Sodium Phosphate 118 ml 07/12/18 14:00 07/13/18 09:00 Fleets Enema (Adult) RECTAL 118 ml DAILY WOLF Administration Sodium Chloride 2 ml 06/20/18 09:00 07/19/18 08:42 Ns Flush IV.FLUSH 2 ml BID WOLF Administration Sodium Chloride 2 ml 06/20/18 02:09 07/09/18 09:06 Ns Flush IV.FLUSH 2 ml PRN PRN Administration FLUSH AFTER USING IV ACCESS Sodium Chloride 0 ml 07/03/18 09:00 07/19/18 08:42 Ns Flush IV.FLUSH 5 ml DAILY WOLF Administration Objective Remarks: GENERAL: Chronically ill-appearing older male resting in bed on BiPAP HEAD: Normocephalic. EYES: No injection or drainage. NECK: Supple, trachea midline. CARDIOVASCULAR: Regular rate and rhythm without murmurs. RESPIRATORY: Diminished anteriorly. Currently on BiPAP GASTROINTESTINAL: Abdomen distended. Nontender to palpation. EXTREMITIES: No cyanosis, or edema. MUSCULOSKELETAL: Generalized weakness NEUROLOGICAL: Awake and alert. Patient nonverbal on bipap but follows commands to give thumbs up. Assessment/Plan - Plan 1. Thrombocytopenia: Plan to repeat fibrinogen, coags and peripheral smear. 2. No further leukocytosis. Continues on steroids and antibiotics have been discontinued. 3. Anemia, secondary to critical illness iatrogenic anemia of inflammation. Patient received 2 units packed red blood cells on 07/16. His hemoglobin has remained stable since that time. Continue to monitor. - Attending Statement The exam, history, and the medical decision-making described in the above note were completed with the assistance of the mid-level provider. I reviewed and agree with the findings presented. I attest that I had a [id number] encounter with the patient on the same day, and personally performed and documented my assessment and findings in the medical record. 73 yoM with prolonged hospitalization. continued cytopenia. Will follow up repeat labs.
--- NOTE | 2018-07-19 14:25 | P.PNCC ---
Subjective Subjective Remarks/Hospital Course: Mr. Curry is a 73-year-old -[place] male with past medical history significant for COPD on 3 L nasal cannula, hypertension, hyperlipidemia and anxiety who was admitted to the hospitalist service on 06/19/2018 for worsening shortness of breath due to COPD exacerbation. He was treated with IV Solu- Medrol, IV antibiotics, breathing treatments gradually improved. Patient was also complaining about dyspepsia and underwent EGD by GI yesterday. Per report the EGD was normal but patient developed worsening shortness of breath and COPD exacerbation postprocedure, possibly from aspiration after sedated. Two ABGs done yesterday showed hypercapnic respiratory failure second 1 was on BiPAP and this was improved with pH 7.3 with PCO2 of 74. Patient remained on BiPAP overnight however was noticed to be lethargic today a.m., stat ABG showed pH of 7.21 PCO2 110 PO2 88 while on BiPAP. Patient was lethargic intermittently dozing off due to CO2 narcosis. Critical care medicine was consulted and I immediately evaluated the patient. Patient had obviously failed BiPAP I proceeded with endotracheal intubation placed on mechanical ventilation. Postintubation I have ordered single dose of Solu-Medrol 125 mg x1 continue Solu -Medrol 60 every 8, discontinue ceftriaxone and start cefepime 2 g IV every 8 hours continue azithromycin. Add budesonide inhaled, placed on scheduled DuoNeb every 4 hours and as needed. 06/27: Patient was intubated yesterday for severe hypercapnic respiratory failure. Currently remains intubated sedated and intubated remains diminished bilaterally. Heavily sedated for ventilator synchrony 06/28: Urine output significantly improved with fluid resuscitation. Creat down trending now 2 from 2.3, UO >3.3 L. Remains intubated sedated. Will initiate daily sedation vacation and CPAP trials 06/29: More awake today tolerating CPAP trials intermittently follows commands but gets agitated/frustrated fast. Urine output remains excellent creatinine 1.4. However sodium increasing 158 today. 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 Due to hypoglycemia will change to quarter normal saline at 150 mL/h repeat CMP in the afternoon 06/30 Patient was extubated yesterday. Awake 07/01 Patient is lying in bed in NAD. T: 100.5 07/02: Intubated early this morning due to acute hypoxic respiratory failure. Central line placed due to hypotension. Plan for GI perform endoscopic decompression of this large bowel today. Arousable and does follow commands. Placed on argatroban 07/03: Currently, intubated with borderline blood pressure. Central line placed yesterday due to hypotension. Did not move bowels despite 1 L of fluid from colonoscopy yesterday and multiple laxatives provided. See orders for additional laxatives today. Might need neostigmine. 07/04 Patient remains intubated and sedated with Diprivan. Given Neostigmine last night. KUB this morning showed colonic ileus. Afebrile. On Argatroban. 07/05 No events overnight, sedated with Diprivan and intubated. Off Argatroban. 07/06 Patient remains intubated and sedated. Afebrile. 07/07 Patient remains intubated, s/p decompressive colonoscopy yesterday. Awake. 07/08 Patient s/p extubation yesterday. Awake and alert. 07/09 Patient is awake, alert lying in bed in NAD. Afebrile. 07/10 Patient is awake and alert, Afebrile. 07/11 Patient s/p decompressive colonoscopy yesterday. Afebrile. On Lasix drip.( UOP: 2800ml overnight). Cr: 3.0 from 2.25. 07/12 Patient is awake, alert given Neostigmine overnight. NGT to LIWS, off Lasix drip. 07/13: Resting comfortably in bed in no acute distress. 3 bowel movements documented. Remains n.p.o. Bladder pressures around 6. Potassium being replaced. Remains anemic around 7. 07/14 Patient is lying in bed in NAD. Afebrile. 07/15 No events overnight. Afebrile. 07/16: Resting in bed mild distress. Abdomen remains distended. Hemoglobin has dropped to 6.2 2 units of PRBC ordered. Patient underwent decompressive colonoscopy by Dr. Berrios for colonic ileus 07/17: No significant overnight events, patient states that he wants to get out of bed to a chair as he is having rectal discomfort. 07/18: Patient reportedly had a BM after digital rectal exam yesterday, states that he's been passing flatus "every now and then" overnight. No plans for OR or sigmoidoscopy as per colorectal service, OK to transfer out of [facility]. 07/19: Patient transferred to med surg yesterday, complained of shortness of breath again today. An ABG showed a pCO2 of 79 so he was placed on bipap and transferred to [facility]. Most recent ABG shows pCO2 of 66, KUB still has abdominal distension but appears to be improved when compared to KUB from 07/15. Patient has reportedly been having bowel movements and passing flatus overnight. Objective Vital Signs / I&O: Vital Signs 07/18/18 16:00 07/18/18 20:00 07/18/18 20:34 Temperature 97.2 F L 97.6 F Pulse Rate 111 H 108 H 111 H Respiratory Rate 20 17 20 Blood Pressure 159/72 H 160/80 H Pulse Oximetry 95 94 L 100 07/18/18 22:32 07/19/18 03:45 07/19/18 03:55 Temperature 97.6 F Pulse Rate 100 H Respiratory Rate 19 18 19 Blood Pressure 136/81 Pulse Oximetry 93 L 07/19/18 04:44 07/19/18 08:00 07/19/18 08:18 Temperature 97.7 F Pulse Rate 101 H 65 Respiratory Rate 19 21 16 Blood Pressure 173/81 H Pulse Oximetry 93 L 95 07/19/18 11:00 07/19/18 12:35 Temperature 97.7 F Pulse Rate 101 H Respiratory Rate 19 Blood Pressure 168/86 H Pulse Oximetry 97 100 Intake & Output 07/18/18 07/19/18 07/19/18 18:59 06:59 18:59 Intake Total 1450 / 1450 500 / 500 100 / 100 Output Total 500 / 500 1100 / 1100 Balance 950 / 950 -600 / -600 100 / 100 Weight 86.183 kg Intake: IV 1400 / 1400 500 / 500 100 / 100 Alburx 5% Inj 500 ML @ 250 mls/ 1000 / 1000 500 / 500 hr IV.SIG Q12H WOLF Rx#:[id number] Magnesium Sulfate 1 gm/D5W 100 100 / 100 ml Premix 100 ML @ 100 mls/hr IV.SIG Q1H WOLF Rx#:[id number] KCl 20 mEq Premix Inj 20 meq In 400 / 400 100 ml @ 50 mls/hr IV.SIG Q2H WOLF Rx#:[id number] Oral 50 / 50 Output: Urine 100 / 100 1100 / 1100 Urine Amount (Catheter) 300 / 300 Indwelling Urethral Catheter 300 / 300 Gastric Drainage 100 / 100 Right Nare Nasogastric Tube 100 / 100 Other: Date of Last Bowel Movement 07/18/18 07/18/18 # Bowel Movements 2 1 # Incontinent Bowel Movements 2 Result Diagrams: 07/19/18 05:56 07/19/18 05:56 Objective Remarks: GENERAL: Elderly male sitting in bed, bipap in use, appears uncomfortable SKIN: Warm and dry HEAD: Normocephalic. EYES: PERRL NECK: Supple, trachea midline. No JVD or lymphadenopathy. CARDIOVASCULAR: Borderline tachy to 100s, regular RESPIRATORY: B/l equal air entry, tachypneic, speaking in complete sentences GASTROINTESTINAL: Abdomen distended and firm, non-tender MUSCULOSKELETAL: 1+ bilateral upper/ lower extremity edema Neuro: Awake and alert, speaking in complete sentences, no neuro deficits Assessment and Plan - Assessment and Plan Plan: ASSESSMENT: Hypercapnic respiratory failure Acute COPD exacerbation Altered mental status due to CO2 narcosis Acute kidney injury/failure Anemia requiring transfusion Colonic ileus Hypertension Leukocytosis Hyperglycemia COPD Hypernatremia Hypopotassemia Normocytic anemia Thrombocytopenia Hyperphosphatemia PLAN: NEURO: -Monitor neuro status, avoid sedatives RESP: -Extubated 06/29. Reintubated 07/02 extubated again 07/07 -DuoNeb every 4 hours scheduled and butyryl aerosols every 2 hours as needed -Wean methylprednisolone succinate from 40 mg to 20 mg daily -Inhaled budesonide -CXR -Repeat ABG shows improving hypercarbia; plan is to keep the patient on bipap until early evening, will give him a break on NC for an hour- hour and a half, then put back on bipap overnight. Reassess in AM if patient still needs NIPPV. CV: - Monitor HR and BP keep MAP>65mmHg -Continue with BP meds, Cardizem 60mg Q6 GI: -Decompressive colonoscopy by Dr. Berrios performed on 07/15/2018. -KUB 07/14: Ileus. Get follow-up KUB stat -KUB 07/13: Stable nonobstructive colonic distention. Given Neostigmine 07/11. -NGT to gravity -s/p repeat decompressive colonoscopy 07/10 and 07/15 -IV famotidine -On docusate sodium/senna 1 tablet twice daily, lactulose 30 cc 4 times daily FEN/: -Monitor renal function, I/O's, avoid nephrotoxins -Renal function continues to improve- Cr: 2.57--> 1.70. -Renal- Dr. Figueroa ID: -Off abx monitor for signs of infections (Fever, WBC) WBC stable -BC and urine cx from 07/11- NG in 5 days -07/02 BC: NGTS, sputum cx 07/02:normal resp justyn -ID is following- Dr. Brown PRN HEME: -Monitor CBC, coags, Hep PLT is positive. ANNMARIE negative. Hematology is following. Off argatroban drip -s/p 2U PRBCs on 07/16, Hg this morning is stable -Stable thrombocytopenia -Patient encouraged to ambulate with PT ENDO: -Electrolyte replacement per protocol -Sliding scale insulin medium scale PROPH: -Bilateral lower extremity SCDs. PPI -Doppler US LE negative DVT 07/02 LINES: -Utilize peripheral IVs Level 2 To help prompt me to consider important information that might be impacting today's encounter and assessment, information from prior notes written by myself or my colleagues may have been "brought forward" into today's note. My signature on this note, however, is an attestation that I personally performed the exam, history, and/or decision-making noted today, and, unless otherwise indicated, the interactions with patient, family, and staff as well as the review of records all occurred today. I also attest that the listed assessment and stated plan reflect my best clinical judgment today based on the combination of historical information, prior notes, and today's exam/ interactions. Code Status: Full
[2018-07-19 15:01] LABS: ABG Base Excess 12.8 mmol/L (-2-2); ABG PCO2 66 mmHg (38-42); ABG PO2 46 mmHg (61-120)
[2018-07-19] MEDS ORDERED: Dextrose 50% in Water 50 ML Vial IV.PUSH PRN (15:01)
[2018-07-19] MEDS ORDERED: Magnesium Oxide 400 MG Tablet PO PRN (15:09)
[2018-07-19] MEDS ORDERED: Potassium Phosphate Inj 30 MMOL in Sodium Chlor 0.9% Inj 250 ML IV.SIG PRN (15:09)
[2018-07-19] MEDS ORDERED: Sodium Phosphate Inj 30 MMOL in Sodium Chlor 0.9% Inj 250 ML IV.SIG PRN (15:09)
[2018-07-19] MEDS ORDERED: Potassium Chlor 40 mEq Premix 40 MEQ/100 ML PIGGYBACK IV.SIG PRN ×2 (15:09)
[2018-07-19] MEDS ORDERED: Potassium Chloride 25 MEQ Effervescent Tablet PO PRN (15:09)
[2018-07-19] MEDS ORDERED: Potassium Phosphate 500 MG Soluble Tablet PO PRN ×2 (15:09)
[2018-07-19] MEDS ORDERED: Magnesium Sulfate Inj 2 GM in Sodium Chlor 0.9% Inj 96 ML IV.SIG PRN (15:09)
[2018-07-19] MEDS ORDERED: Magnesium Sulfate Inj 4 GM in Sodium Chlor 0.9% Inj 92 ML IV.SIG PRN (15:09)
[2018-07-19] MEDS ORDERED: Potassium Chlor 20 mEq Premix 20 MEQ/100 ML PIGGYBACK IV.SIG PRN ×2 (15:09)
--- NOTE | 2018-07-19 15:21 | XR ---
EXAM DATE: 07/19/2018 3:12 PM EST AGE/SEX: 73 years / Male INDICATIONS: Short of Breath CLINICAL DATA: This is the patient's initial encounter. Patient reports that signs and symptoms have been present for 1 day and indicates a pain score of 0/10. MEDICAL/SURGICAL HISTORY: . Chronic obstructive pulmonary disease. Hypertension . None. [place] [facility] [place]. . FINDINGS: The abdominal bowel gas pattern is normal. No abnormal masses, calcifications, or organomegaly is s een. The osseous structures are unremarkable. CONCLUSION: Negative examination. Electronically signed by: Abraham Arias MD 07/19/2018 3:20 PM EST
--- NOTE | 2018-07-19 15:23 | XR ---
EXAM DATE: 07/19/2018 3:17 PM EST AGE/SEX: 73 years / Male INDICATIONS: Short of Breath CLINICAL DATA: This is the patient's subsequent encounter. Patient reports that signs and symptoms h ave been present for 1 day and indicates a pain score of 4/10. MEDICAL/SURGICAL HISTORY: . Chronic obstructive pulmonary disease. Hypertension . None. COMPARISON: [facility], ABDOMEN 1V KUB, 07/19/2018. . FINDINGS: A single AP view of the chest demonstrates the lungs to be symmetrically aerated without evidence of mass, infiltrate or effusion. The cardiomediastinal contours are unremarkable. Mild degenerative cristine nges and scoliosis of the thoracic spine are noted. CONCLUSION: 1. No acute cardiopulmonary disease. 2. Mild degenerative changes and scoliosis of the thoracic spine. Electronically signed by: Abraham Arias MD 07/19/2018 3:21 PM EST
[2018-07-19] MEDS ORDERED: Mag Sulf 1 gm/100 ml Premix 100 ML IV.SIG SCH (15:45)
[2018-07-19] MEDS: LACTATED RINGER S IV.CONT SCH (16:01)
[2018-07-19] MEDS: DEXTROSE IV.CONT SCH (16:01)
[2018-07-19] MEDS: POTASSIUM CHLORIDE IV.CONT SCH (16:01)
[2018-07-19 16:10] LABS: Activated Partial Thrombo Time 31.1 sec (23.4-31.7); INR 1.2 Ratio
--- NOTE | 2018-07-19 17:57 | P.PN ---
Subjective Interval history: NAD ON BIPAP AT NIGHT Physical Exam Vital signs: Vital Signs 07/18/18 20:00 07/18/18 20:34 07/18/18 22:32 Temperature 97.6 F Pulse Rate 108 H 111 H Respiratory Rate 17 20 19 Blood Pressure 160/80 H Pulse Oximetry 94 L 100 07/19/18 03:45 07/19/18 03:55 07/19/18 04:44 Temperature 97.6 F Pulse Rate 100 H Respiratory Rate 18 19 19 Blood Pressure 136/81 Pulse Oximetry 93 L 07/19/18 08:00 07/19/18 08:18 07/19/18 11:00 Temperature 97.7 F 97.7 F Pulse Rate 101 H 65 101 H Respiratory Rate 21 16 19 Blood Pressure 173/81 H 168/86 H Pulse Oximetry 93 L 95 97 07/19/18 11:51 07/19/18 12:00 07/19/18 12:20 Temperature 98.8 F Pulse Rate 96 H 92 H Respiratory Rate 14 12 Blood Pressure 154/77 H 153/82 H Pulse Oximetry 99 100 07/19/18 12:35 07/19/18 13:00 07/19/18 14:00 Temperature Pulse Rate 95 H 104 H Respiratory Rate 12 31 H Blood Pressure 169/81 H 122/74 Pulse Oximetry 100 100 97 07/19/18 15:00 07/19/18 17:51 Temperature Pulse Rate 104 H Respiratory Rate 21 Blood Pressure Pulse Oximetry 96 100 Intake & Output 07/18/18 07/19/18 07/19/18 18:59 06:59 18:59 Intake Total 1450 / 1450 500 / 500 200 / 200 Output Total 500 / 500 1100 / 1100 Balance 950 / 950 -600 / -600 200 / 200 Weight 86.183 kg Intake: IV 1400 / 1400 500 / 500 200 / 200 Alburx 5% Inj 500 ML @ 250 mls/ 1000 / 1000 500 / 500 hr IV.SIG Q12H [facility] Rx#:[id number] Magnesium Sulfate 1 gm/D5W 100 200 / 200 ml Premix 100 ML @ 100 mls/hr IV.SIG Q1H [facility] Rx#:[id number] KCl 20 mEq Premix Inj 20 meq In 400 / 400 100 ml @ 50 mls/hr IV.SIG Q2H [facility] Rx#:[id number] Oral 50 / 50 Output: Urine 100 / 100 1100 / 1100 Urine Amount (Catheter) 300 / 300 Indwelling Urethral Catheter 300 / 300 Gastric Drainage 100 / 100 Right Nare Nasogastric Tube 100 / 100 Other: Date of Last Bowel Movement 07/18/18 07/18/18 07/19/18 # Bowel Movements 2 1 # Incontinent Bowel Movements 2 Narrative: GENERAL: Well-nourished, well-developed female patient in NAD. SKIN: Warm and dry. No rash. HEENT: Normocephalic. Atraumatic. Pupils equal and round. Mucous membranes pink and moist. NECK: Trachea midline. CARDIOVASCULAR: Regular rate and rhythm. No murmur appreciated. RESPIRATORY: Mild abdominal breathing. Decreased inspiratory effort, otherwise clear to auscultation. Breath sounds equal bilaterally. GASTROINTESTINAL: Abdomen firm, mildly distended, nontender. Normoactive bowel sounds x4. MUSCULOSKELETAL: No obvious deformities. 1+ BLE edema. NEUROLOGICAL: Awake and alert. No obvious cranial nerve deficits. Moving all extremities spontaneously. Normal speech. - Urinary Catheter Management Indwelling Urethral Catheter Cath placed during this visit: yes, but has since been removed by the nurse Reason for continuing: Acute urinary retention Insertion date: 07/14/18 Insertion time: 21:55 Removal date: 07/13/18 Removal time: 13:30 Straight Cath placed during this visit: no Results - Labs CBC & Chem 7: 07/19/18 05:56 07/19/18 05:56 Laboratory Results - last 24 hr 07/18/18 07/18/18 07/19/18 22:11 22:12 00:04 WBC RBC Hgb Hct MCV MCH MCHC RDW Plt Count MPV Prelim Diff (Auto) Neut % (Auto) Lymph % (Auto) [place] % (Auto) Eos % (Auto) Baso % (Auto) Neut # (Auto) Lymph # (Auto) [place] # (Auto) Eos # (Auto) Baso # (Auto) WBC Differential Diff Scan Differential Comment Smear Path Review Haptoglobin PT INR APTT Fibrinogen Puncture Site Patient Temperature O2 Saturation ABG pH ABG pCO2 ABG pO2 ABG HCO3 ABG O2 Content ABG Base Excess ABG Methemoglobin Raymon Test Hemoglobin Carboxyhemoglobin O2 Delivery Device Vent Setting Inspired O2 Critical Value Sodium Potassium Chloride Carbon Dioxide Anion Gap BUN Creatinine Estimated GFR POC Glucose 351 H 324 H 195 H Random Glucose Calcium Magnesium Total Bilirubin AST ALT Alkaline Phosphatase Total Protein Albumin 07/19/18 07/19/18 07/19/18 03:51 04:07 04:17 WBC RBC Hgb Hct MCV MCH MCHC RDW Plt Count MPV Prelim Diff (Auto) Neut % (Auto) Lymph % (Auto) [place] % (Auto) Eos % (Auto) Baso % (Auto) Neut # (Auto) Lymph # (Auto) [place] # (Auto) Eos # (Auto) Baso # (Auto) WBC Differential Diff Scan Differential Comment Smear Path Review Haptoglobin PT INR APTT Fibrinogen Puncture Site Patient Temperature O2 Saturation ABG pH ABG pCO2 ABG pO2 ABG HCO3 ABG O2 Content ABG Base Excess ABG Methemoglobin Raymon Test Hemoglobin Carboxyhemoglobin O2 Delivery Device Vent Setting Inspired O2 Critical Value Sodium Potassium Chloride Carbon Dioxide Anion Gap BUN Creatinine Estimated GFR POC Glucose 56 L 70 89 Random Glucose Calcium Magnesium Total Bilirubin AST ALT Alkaline Phosphatase Total Protein Albumin 07/19/18 07/19/18 07/19/18 05:53 05:56 05:56 WBC 6.1 RBC 3.10 L Hgb 9.8 L Hct 28.7 L MCV 92.6 MCH 31.6 MCHC 34.1 RDW 15.3 Plt Count 51 L MPV 10.2 Prelim Diff (Auto) Slide review pending Neut % (Auto) 90.1 H Lymph % (Auto) 4.5 L [place] % (Auto) 5.1 Eos % (Auto) 0.2 Baso % (Auto) 0.1 Neut # (Auto) 5.5 Lymph # (Auto) 0.3 L [place] # (Auto) 0.3 Eos # (Auto) 0.0 Baso # (Auto) 0.0 WBC Differential . Diff Scan Auto diff confirmed Differential Comment . Smear Path Review Haptoglobin PT INR APTT Fibrinogen Puncture Site Patient Temperature O2 Saturation ABG pH ABG pCO2 ABG pO2 ABG HCO3 ABG O2 Content ABG Base Excess ABG Methemoglobin Raymon Test Hemoglobin Carboxyhemoglobin O2 Delivery Device Vent Setting Inspired O2 Critical Value Sodium 145 Potassium 3.3 L Chloride 99 Carbon Dioxide 38.5 H Anion Gap 8 BUN 49 H Creatinine 1.70 H Estimated GFR 48 L POC Glucose 168 H Random Glucose 161 H Calcium 7.8 L Magnesium 1.3 L Total Bilirubin 1.2 H AST 37 ALT 61 Alkaline Phosphatase 53 Total Protein 7.2 Albumin 5.1 H 07/19/18 07/19/18 07/19/18 05:56 07:52 10:50 WBC RBC Hgb Hct MCV MCH MCHC RDW Plt Count MPV Prelim Diff (Auto) Neut % (Auto) Lymph % (Auto) [place] % (Auto) Eos % (Auto) Baso % (Auto) Neut # (Auto) Lymph # (Auto) [place] # (Auto) Eos # (Auto) Baso # (Auto) WBC Differential Diff Scan Differential Comment Smear Path Review Haptoglobin PT INR APTT Fibrinogen Puncture Site Left radial Patient Temperature 98.6 O2 Saturation 94 ABG pH 7.31 L ABG pCO2 79 H* ABG pO2 96 ABG HCO3 39 H ABG O2 Content 13.0 ABG Base Excess 12.1 H ABG Methemoglobin 1.4 Raymon Test Present Hemoglobin 9.7 L Carboxyhemoglobin 1.9 O2 Delivery Device Nasal cannula Vent Setting Inspired O2 Critical Value Yes Sodium Potassium Chloride Carbon Dioxide Anion Gap BUN Creatinine Estimated GFR POC Glucose 191 H Random Glucose Calcium Magnesium Total Bilirubin AST ALT Alkaline Phosphatase Total Protein Albumin 07/19/18 07/19/18 07/19/18 13:17 14:44 14:59 WBC RBC Hgb Hct MCV MCH MCHC RDW Plt Count MPV Prelim Diff (Auto) Neut % (Auto) Lymph % (Auto) [place] % (Auto) Eos % (Auto) Baso % (Auto) Neut # (Auto) Lymph # (Auto) [place] # (Auto) Eos # (Auto) Baso # (Auto) WBC Differential Diff Scan Differential Comment Smear Path Review Haptoglobin PT INR APTT Fibrinogen Puncture Site Left radial Left radial Patient Temperature 98.6 98.6 O2 Saturation 96 80 L* ABG pH 7.29 L* 7.39 ABG pCO2 83 H* 66 H* ABG pO2 127 H 46 L* ABG HCO3 39 H 38 H ABG O2 Content 13.0 11.0 L ABG Base Excess 12.1 H 12.8 H ABG Methemoglobin 1.4 1.1 Raymon Test Present Present Hemoglobin 9.5 L 9.7 L Carboxyhemoglobin 1.7 1.9 O2 Delivery Device Bipap Bipap Vent Setting Ipap15/epap5 Ipap 18,epap 5 Inspired O2 40 21 Critical Value Yes Yes Sodium Potassium Chloride Carbon Dioxide Anion Gap BUN Creatinine Estimated GFR POC Glucose 233 H Random Glucose Calcium Magnesium Total Bilirubin AST ALT Alkaline Phosphatase Total Protein Albumin 1107/19/18 07/19/18 15:18 15:18 17:43 WBC RBC Hgb Hct MCV MCH MCHC RDW Plt Count MPV Prelim Diff (Auto) Neut % (Auto) Lymph % (Auto) [place] % (Auto) Eos % (Auto) Baso % (Auto) Neut # (Auto) Lymph # (Auto) [place] # (Auto) Eos # (Auto) Baso # (Auto) WBC Differential Diff Scan Differential Comment Smear Path Review Haptoglobin 94 PT 12.0 H INR 1.2 APTT 31.1 Fibrinogen 154 L Puncture Site Patient Temperature O2 Saturation ABG pH ABG pCO2 ABG pO2 ABG HCO3 ABG O2 Content ABG Base Excess ABG Methemoglobin Raymon Test Hemoglobin Carboxyhemoglobin O2 Delivery Device Vent Setting Inspired O2 Critical Value Sodium Potassium Chloride Carbon Dioxide Anion Gap BUN Creatinine Estimated GFR POC Glucose 299 H Random Glucose Calcium Magnesium Total Bilirubin AST ALT Alkaline Phosphatase Total Protein Albumin - Imaging Impressions Abdomen X-Ray 07/19/18 14:09 CONCLUSION: Negative examination. Chest X-Ray 07/19/18 14:10 CONCLUSION: 1. No acute cardiopulmonary disease. 2. Mild degenerative changes and scoliosis of the thoracic spine. - Procedures 06/26/18endotracheal intubation by critical care Dr. Ahn 06/26/18ultrasound-guided right IJ central line by critical care Dr. Ahn 07/02/18endotracheal intubation by critical care Dr. Ahn 07/06/18colonoscopy by : Stool in cecum, large amount of water flush, stool suctioned. Marked decompression. Rectal tube left in place. Internal hemorrhoids. 07/10/18colonoscopy by Dr. Keith: Ischemic ulcer cecum. Some semisolid stool suctioned. Marked decompression. Rectal ulcer from rectal tube. Hemorrhoids internal grade 2. 07/15/18decompressive colonoscopy by Dr. Berrios Assessment and Plan - Plan IMPRESSION RESPIRATORY FAILURE COPD PNA PLAN O2 NEEDED/BIPAP ANTIBX BRONCHODILATORS INCREASE ACTIVITY
[2018-07-20] MEDS: Insulin NovoLIN Regular Correctional Sugar Inj SQ SCH ×2 (00:07→06:02)
[2018-07-20] MEDS: Pantoprazole Inj 40 MG Vial IV.PUSH SCH ×2 (01:55→14:15)
[2018-07-20 04:27] LABS: Baso % (Auto) 0.1 % (0.0-2.0); Eos % (Auto) 0.1 % (0.0-4.0); Hematocrit 29.6 % (39.0-51.0); Hemoglobin 9.8 gm/dL (13.0-17.0); Lymph # (Auto) 0.2 th/mm3 (1.0-4.8); Lymph % (Auto) 4.3 % (9.0-44.0); Mean Corpuscular HGB Conc 33.1 % (32.0-36.0); Mean Corpuscular Hemoglobin 31.1 pg (27.0-34.0); Mean Platelet Volume 10.9 fL (7.0-11.0); Mono # (Auto) 0.3 th/mm3 (0.0-0.9); Mono % (Auto) 6.9 % (0.0-8.0); Neut # (Auto) 4.3 th/mm3 (1.8-7.7); Neut % (Auto) 88.6 % (16.0-70.0); Platelet Count 50 th/mm3 (150-450); Red Blood Count 3.15 mil/mm3 (4.50-5.90); Red Cell Distribution Width 15.7 % (11.6-17.2); White Blood Count 4.8 th/mm3 (4.0-11.0)
[2018-07-20 05:00] LABS: Alanine Aminotransferase 59 U/L (12-78); Albumin 4.5 g/dL (3.4-5.0); Alkaline Phosphatase 55 U/L (45-117); Anion Gap 5 meq/L (5-15); Aspartate Aminotransferase 34 U/L (15-37); Blood Urea Nitrogen 53 mg/dL (7-18); Calcium 7.7 mg/dL (8.5-10.1); Carbon Dioxide 37.4 meq/L (21.0-32.0); Chloride 100 meq/L (98-107); Glomerular Filtration Rate 41 mL/min (>89); Glucose,Random 195 mg/dL (74-106); Magnesium 1.7 mg/dL (1.5-2.5); Phosphorus 2.3 mg/dL (2.5-4.9); Potassium 4.3 meq/L (3.5-5.1); Sodium 142 meq/L (136-145); Total Protein 6.8 g/dL (6.4-8.2)
[2018-07-20] MEDS: Oral Hygiene Kit OROPHARYNG SCH ×2 (05:12→14:16)
[2018-07-20] MEDS: POTASSIUM CHLORIDE IV.CONT SCH ×2 (05:12→16:08)
[2018-07-20] MEDS: LACTATED RINGER S IV.CONT SCH ×2 (05:12→16:08)
[2018-07-20] MEDS: DEXTROSE IV.CONT SCH ×2 (05:12→16:08)
[2018-07-20 05:33] LABS: Platelet Morphology Normal (Normal)
[2018-07-20] MEDS: Chlorhexidine 0.12% Oral Kit 15 ML UDC OROPHARYNG SCH (09:30)
[2018-07-20] MEDS: Artificial Tears Opth Drops 15 ML Bottle EACH EYE SCH ×2 (09:30→16:09)
[2018-07-20] MEDS: Bisacodyl 10 MG Supp RECTAL SCH (09:30)
--- NOTE | 2018-07-20 12:00 | P.PNNP ---
Subjective Interval history: Transferred to ICU yesterday, for shortness of breath. No nausea, vomiting, or diarrhea. <Rossi Blake - Last Filed: 07/20/18 11:50> Physical Exam Vital signs: Vital Signs 07/19/18 11:51 07/19/18 12:00 07/19/18 12:20 Temperature 98.8 F Pulse Rate 96 H 92 H Respiratory Rate 14 12 Blood Pressure 154/77 H 153/82 H Pulse Oximetry 99 100 07/19/18 12:35 07/19/18 13:00 07/19/18 14:00 Temperature Pulse Rate 95 H 104 H Respiratory Rate 12 31 H Blood Pressure 169/81 H 122/74 Pulse Oximetry 100 100 97 07/19/18 15:00 07/19/18 16:00 07/19/18 17:00 Temperature Pulse Rate 104 H 101 H 104 H Respiratory Rate 21 14 21 Blood Pressure Pulse Oximetry 96 100 100 07/19/18 17:51 07/19/18 18:00 07/19/18 18:36 Temperature Pulse Rate 113 H 108 H Respiratory Rate 33 H 21 Blood Pressure 159/82 H 159/82 H Pulse Oximetry 100 97 99 07/19/18 19:00 07/19/18 20:00 07/19/18 20:16 Temperature 98.6 F Pulse Rate 110 H 104 H 106 H Respiratory Rate 20 21 20 Blood Pressure 129/83 Pulse Oximetry 99 100 07/19/18 20:18 07/19/18 21:00 07/19/18 21:07 Temperature Pulse Rate 106 H 103 H Respiratory Rate 24 17 Blood Pressure 137/83 137/83 Pulse Oximetry 100 100 100 07/19/18 21:41 07/19/18 22:00 07/19/18 23:00 Temperature Pulse Rate 97 H 101 H Respiratory Rate 18 21 Blood Pressure 144/69 H 158/79 H Pulse Oximetry 100 100 100 07/20/18 00:00 07/20/18 00:02 07/20/18 00:50 Temperature 98.6 F Pulse Rate 95 H 96 H Respiratory Rate 18 18 Blood Pressure 185/84 H 167/84 H Pulse Oximetry 100 100 100 07/20/18 01:00 07/20/18 01:08 07/20/18 02:00 Temperature Pulse Rate 98 H 98 H 96 H Respiratory Rate 20 28 H 15 Blood Pressure 179/81 H 152/76 H 156/84 H Pulse Oximetry 100 100 100 07/20/18 02:50 07/20/18 03:00 07/20/18 03:20 Temperature Pulse Rate 82 Respiratory Rate 23 28 H 12 Blood Pressure 147/83 H Pulse Oximetry 100 07/20/18 04:00 07/20/18 04:13 07/20/18 04:47 Temperature Pulse Rate 93 H 93 H Respiratory Rate 18 11 L Blood Pressure 126/77 Pulse Oximetry 100 100 100 07/20/18 05:00 07/20/18 06:00 07/20/18 07:00 Temperature Pulse Rate 101 H 99 H 102 H Respiratory Rate 20 13 22 Blood Pressure 153/85 H 157/83 H 137/81 Pulse Oximetry 100 100 100 07/20/18 08:00 07/20/18 08:24 07/20/18 08:28 Temperature Pulse Rate 101 H 109 H Respiratory Rate 13 21 Blood Pressure 159/91 H Pulse Oximetry 100 100 07/20/18 09:00 07/20/18 09:23 07/20/18 10:00 Temperature 98 F Pulse Rate 101 H 101 H Respiratory Rate 14 17 Blood Pressure 158/81 H 157/80 H Pulse Oximetry 100 100 100 Intake & Output 07/19/18 07/20/18 07/20/18 18:59 06:59 18:59 Intake Total 440 / 440 1000 / 1000 Output Total 450 / 450 500 / 500 Balance -10 / -10 500 / 500 Weight 77.6 kg Intake: IV 200 / 200 1000 / 1000 KCl Inj 40 MEQ In D5W/LR Inj 1, 1000 / 1000 000 ML @ 84 mls/hr IV.CONT . Q12H9M [facility] Rx#:[id number] Magnesium Sulfate 1 gm/D5W 100 200 / 200 ml Premix 100 ML @ 100 mls/hr IV.SIG Q1H [facility] Rx#:[id number] Oral 240 / 240 Output: Urine Amount (Catheter) 450 / 450 500 / 500 Condom 450 / 450 500 / 500 Other: Date of Last Bowel Movement 07/19/18 07/20/18 07/20/18 # Bowel Movements 0 Narrative: GENERAL: Well-nourished, well-developed. Alert SKIN: Warm and dry. No rash. HEENT: Normocephalic. Atraumatic. Pupils equal and round. Mucous membranes pink and moist. NECK: Trachea midline. No JVD. CARDIOVASCULAR: Regular rate and rhythm. No murmur appreciated. RESPIRATORY: Mild abdominal breathing. Decreased inspiratory effort, otherwise clear to auscultation. Breath sounds equal bilaterally. GASTROINTESTINAL: Abdomen firm, mildly distended, nontender. Normoactive bowel sounds x4. MUSCULOSKELETAL: No obvious deformities. 1+ BLE edema. NEUROLOGICAL: Awake and alert. Moving all extremities spontaneously. Normal speech. - Urinary Catheter Management Indwelling Urethral Catheter Cath placed during this visit: yes, but has since been removed by the nurse Reason for continuing: Acute urinary retention Insertion date: 07/14/18 Insertion time: 21:55 Removal date: 07/13/18 Removal time: 13:30 Straight Cath placed during this visit: no Condom Cath placed during this visit: no <Rossi Blake - Last Filed: 07/20/18 11:50> Vital signs: Vital Signs 07/21/18 23:50 07/22/18 00:00 07/22/18 04:00 Temperature 97.9 F Pulse Rate 115 H 105 H 108 H Respiratory Rate 19 Blood Pressure 133/71 Pulse Oximetry 98 07/22/18 05:00 07/22/18 06:00 07/22/18 08:00 Temperature 97.9 F 98.7 F Pulse Rate 109 H 109 H Respiratory Rate 17 20 Blood Pressure 132/73 125/68 Pulse Oximetry 98 98 97 07/22/18 08:08 07/22/18 12:00 07/22/18 16:00 Temperature 98.4 F 97 F L Pulse Rate 110 H 111 H 108 H Respiratory Rate 18 22 20 Blood Pressure 136/71 168/80 H Pulse Oximetry 94 L 98 07/22/18 19:43 Temperature Pulse Rate 108 H Respiratory Rate 20 Blood Pressure Pulse Oximetry 98 Intake & Output 07/22/18 07/22/18 07/23/18 06:59 18:59 06:59 Intake Total 1026 / 1026 1254 / 1254 Output Total 600 / 600 1000 / 1000 Balance 426 / 426 254 / 254 Weight 81.6 kg Intake: IV 806 / 806 294 / 294 1/2 Normal Saline Inj 1,000 ML 806 / 806 194 / 194 @ 60 mls/hr IV.CONT .[id number] [facility] Rx#:[id number] Magnesium Sulfate 1 gm/D5W 100 100 / 100 ml Premix 100 ML @ 100 mls/hr IV.SIG ONCE ONE Rx#:[id number] Oral 220 / 220 960 / 960 Output: Urine 1000 / 1000 Urine Amount (Catheter) 600 / 600 Condom 600 / 600 Other: Date of Last Bowel Movement 07/22/18 # Bowel Movements 1 2 - Urinary Catheter Management Indwelling Urethral Catheter Cath placed during this visit: no Straight Cath placed during this visit: no Condom Cath placed during this visit: no <Uyen Austin - Last Filed: 07/22/18 21:12> Assessment and Plan - Assessment (1) Acute renal failure Code(s): N17.9 - Acute kidney failure, unspecified Status: Acute (2) Anasarca Code(s): R60.1 - Generalized edema Status: Acute (3) Abdominal distention Code(s): R14.0 - Abdominal distension (gaseous) Status: Acute (4) Ileus Code(s): K56.7 - Ileus, unspecified Status: Acute - Plan [place]YSON with non-oliguric ATN Creatinine 3 -> 3.4, 4.44.7-4.3 -3.6-- 2.5 -> 1.7 ->1.9 Hemoglobin is stable 9.8 Hypokalemia resolved. Maintain accurate I+O Slight increase in creatinine, will continue to monitor Diet has been advanced to clear liquid. Monitor BMP Dr. Figueroa to follow in AM <Rossi Blake - Last Filed: 07/20/18 11:50> - Assessment (1) Acute renal failure Code(s): N17.9 - Acute kidney failure, unspecified Status: Acute (2) Anasarca Code(s): R60.1 - Generalized edema Status: Acute (3) Abdominal distention Code(s): R14.0 - Abdominal distension (gaseous) Status: Acute (4) Ileus Code(s): K56.7 - Ileus, unspecified Status: Acute - Plan Patient seen and examined, agree with above. K is normal, Creatinine continue to improve. Advance diet as tolerated. <Uyen Austin - Last Filed: 07/22/18 21:12>
[2018-07-20] MEDS: MethylPREDNISolone Sod Succinate Inj 40 MG/ML Vial IV.PUSH SCH (12:23)
[2018-07-20] MEDS: dilTIAZem 60 MG Tablet PO SCH ×3 (12:36→20:51)
[2018-07-20] MEDS: Methylnaltrexone Inj 12 MG/0.6 ML Vial SQ SCH (12:36)
--- NOTE | 2018-07-20 13:12 | P.PNONC ---
Subjective Interval history: Afebrile Patient no longer on BiPAP Currently on nasal cannula sitting up in bed eating a popsicle He denies any bleeding or other acute complaints Objective Vital Signs/Intake & Output: Vital Signs 07/19/18 14:00 07/19/18 15:00 07/19/18 16:00 Temperature Pulse Rate 104 H 104 H 101 H Respiratory Rate 31 H 21 14 Blood Pressure 122/74 Pulse Oximetry 97 96 100 07/19/18 17:00 07/19/18 17:51 07/19/18 18:00 Temperature Pulse Rate 104 H 113 H Respiratory Rate 21 33 H Blood Pressure 159/82 H Pulse Oximetry 100 100 97 07/19/18 18:36 07/19/18 19:00 07/19/18 20:00 Temperature 98.6 F Pulse Rate 108 H 110 H 104 H Respiratory Rate 21 20 21 Blood Pressure 159/82 H 129/83 Pulse Oximetry 99 99 100 07/19/18 20:16 07/19/18 20:18 07/19/18 21:00 Temperature Pulse Rate 106 H 106 H Respiratory Rate 20 24 Blood Pressure 137/83 Pulse Oximetry 100 100 07/19/18 21:07 07/19/18 21:41 07/19/18 22:00 Temperature Pulse Rate 103 H 97 H Respiratory Rate 17 18 Blood Pressure 137/83 144/69 H Pulse Oximetry 100 100 100 07/19/18 23:00 07/20/18 00:00 07/20/18 00:02 Temperature 98.6 F Pulse Rate 101 H 95 H 96 H Respiratory Rate 21 18 18 Blood Pressure 158/79 H 185/84 H 167/84 H Pulse Oximetry 100 100 100 07/20/18 00:50 07/20/18 01:00 07/20/18 01:08 Temperature Pulse Rate 98 H 98 H Respiratory Rate 20 28 H Blood Pressure 179/81 H 152/76 H Pulse Oximetry 100 100 100 07/20/18 02:00 07/20/18 02:50 07/20/18 03:00 Temperature Pulse Rate 96 H 82 Respiratory Rate 15 23 28 H Blood Pressure 156/84 H 147/83 H Pulse Oximetry 100 100 07/20/18 03:20 07/20/18 04:00 07/20/18 04:13 Temperature Pulse Rate 93 H 93 H Respiratory Rate 12 18 11 L Blood Pressure 126/77 Pulse Oximetry 100 100 07/20/18 04:47 07/20/18 05:00 07/20/18 06:00 Temperature Pulse Rate 101 H 99 H Respiratory Rate 20 13 Blood Pressure 153/85 H 157/83 H Pulse Oximetry 100 100 100 07/20/18 07:00 07/20/18 08:00 07/20/18 08:24 Temperature Pulse Rate 102 H 101 H Respiratory Rate 22 13 Blood Pressure 137/81 159/91 H Pulse Oximetry 100 100 100 07/20/18 08:28 07/20/18 09:00 07/20/18 09:23 Temperature 98 F Pulse Rate 109 H 101 H Respiratory Rate 21 14 Blood Pressure 158/81 H Pulse Oximetry 100 100 07/20/18 10:00 Temperature Pulse Rate 101 H Respiratory Rate 17 Blood Pressure 157/80 H Pulse Oximetry 100 Intake & Output 07/19/18 07/20/18 07/20/18 18:59 06:59 18:59 Intake Total 440 / 440 1000 / 1000 Output Total 450 / 450 500 / 500 Balance -10 / -10 500 / 500 Weight 171 lb 1.259 oz Intake: IV 200 / 200 1000 / 1000 KCl Inj 40 MEQ In D5W/LR Inj 1, 1000 / 1000 000 ML @ 84 mls/hr IV.CONT . Q12H9M [facility] Rx#:[id number] Magnesium Sulfate 1 gm/D5W 100 200 / 200 ml Premix 100 ML @ 100 mls/hr IV.SIG Q1H [facility] Rx#:[id number] Oral 240 / 240 Output: Urine Amount (Catheter) 450 / 450 500 / 500 Condom 450 / 450 500 / 500 Other: Date of Last Bowel Movement 07/19/18 07/20/18 07/20/18 # Bowel Movements 0 Result Diagrams: 07/20/18 03:50 07/20/18 03:50 Laboratory Results: Laboratory Results - last 24 hr 07/19/18 07/19/18 07/19/18 05:56 13:17 14:44 WBC RBC Hgb Hct MCV MCH MCHC RDW Plt Count MPV Prelim Diff (Auto) Neut % (Auto) Lymph % (Auto) [place] % (Auto) Eos % (Auto) Baso % (Auto) Neut # (Auto) Lymph # (Auto) [place] # (Auto) Eos # (Auto) Baso # (Auto) WBC Differential Diff Scan Differential Comment Platelet Estimate Platelet Morphology Smear Path Review Haptoglobin PT INR APTT Fibrinogen Puncture Site Left radial Left radial Patient Temperature 98.6 98.6 O2 Saturation 96 80 L* ABG pH 7.29 L* 7.39 ABG pCO2 83 H* 66 H* ABG pO2 127 H 46 L* ABG HCO3 39 H 38 H ABG O2 Content 13.0 11.0 L ABG Base Excess 12.1 H 12.8 H ABG Methemoglobin 1.4 1.1 Raymon Test Present Present Hemoglobin 9.5 L 9.7 L Carboxyhemoglobin 1.7 1.9 O2 Delivery Device Bipap Bipap Vent Setting Ipap15/epap5 Ipap 18,epap 5 Inspired O2 40 21 Critical Value Yes Yes Sodium Potassium Chloride Carbon Dioxide Anion Gap BUN Creatinine Estimated GFR POC Glucose Random Glucose Calcium Phosphorus Magnesium Total Bilirubin AST ALT Alkaline Phosphatase Total Protein Albumin 07/19/18 07/19/18 07/19/18 14:59 15:18 15:18 WBC RBC Hgb Hct MCV MCH MCHC RDW Plt Count MPV Prelim Diff (Auto) Neut % (Auto) Lymph % (Auto) [place] % (Auto) Eos % (Auto) Baso % (Auto) Neut # (Auto) Lymph # (Auto) [place] # (Auto) Eos # (Auto) Baso # (Auto) WBC Differential Diff Scan Differential Comment Platelet Estimate Platelet Morphology Smear Path Review Haptoglobin 94 PT 12.0 H INR 1.2 APTT 31.1 Fibrinogen 154 L Puncture Site Patient Temperature O2 Saturation ABG pH ABG pCO2 ABG pO2 ABG HCO3 ABG O2 Content ABG Base Excess ABG Methemoglobin Ray[place] Test Hemoglobin Carboxyhemoglobin O2 Delivery Device Vent Setting Inspired O2 Critical Value Sodium Potassium Chloride Carbon Dioxide Anion Gap BUN Creatinine Estimated GFR POC Glucose 233 H Random Glucose Calcium Phosphorus Magnesium Total Bilirubin AST ALT Alkaline Phosphatase Total Protein Albumin 07/19/18 07/19/18 07/20/18 17:43 21:04 00:01 WBC RBC Hgb Hct MCV MCH MCHC RDW Plt Count MPV Prelim Diff (Auto) Neut % (Auto) Lymph % (Auto) [place] % (Auto) Eos % (Auto) Baso % (Auto) Neut # (Auto) Lymph # (Auto) [place] # (Auto) Eos # (Auto) Baso # (Auto) WBC Differential Diff Scan Differential Comment Platelet Estimate Platelet Morphology Smear Path Review Haptoglobin PT INR APTT Fibrinogen Puncture Site Patient Temperature O2 Saturation ABG pH ABG pCO2 ABG pO2 ABG HCO3 ABG O2 Content ABG Base Excess ABG Methemoglobin [place] Test Hemoglobin Carboxyhemoglobin O2 Delivery Device Vent Setting Inspired O2 Critical Value Sodium Potassium Chloride Carbon Dioxide Anion Gap BUN Creatinine Estimated GFR POC Glucose 299 H 222 H Random Glucose Calcium Phosphorus Magnesium 1.7 Total Bilirubin AST ALT Alkaline Phosphatase Total Protein Albumin 07/20/18 07/20/18 03:50 03:50 WBC 4.8 RBC 3.15 L Hgb 9.8 L Hct 29.6 L MCV 94.0 MCH 31.1 MCHC 33.1 RDW 15.7 Plt Count 50 L MPV 10.9 Prelim Diff (Auto) Slide review pending Neut % (Auto) 88.6 H Lymph % (Auto) 4.3 L [place] % (Auto) 6.9 Eos % (Auto) 0.1 Baso % (Auto) 0.1 Neut # (Auto) 4.3 Lymph # (Auto) 0.2 L [place] # (Auto) 0.3 Eos # (Auto) 0.0 Baso # (Auto) 0.0 WBC Differential . Diff Scan Auto diff confirmed Differential Comment . Platelet Estimate Low L Platelet Morphology Normal Smear Path Review Haptoglobin PT INR APTT Fibrinogen Puncture Site Patient Temperature O2 Saturation ABG pH ABG pCO2 ABG pO2 ABG HCO3 ABG O2 Content ABG Base Excess ABG Methemoglobin Ray[place] Test Hemoglobin Carboxyhemoglobin O2 Delivery Device Vent Setting Inspired O2 Critical Value Sodium 142 Potassium 4.3 D Chloride 100 Carbon Dioxide 37.4 H Anion Gap 5 BUN 53 H Creatinine 1.97 H Estimated GFR 41 L POC Glucose Random Glucose 195 H Calcium 7.7 L Phosphorus 2.3 L Magnesium 1.7 Total Bilirubin 0.8 AST 34 ALT 59 Alkaline Phosphatase 55 Total Protein 6.8 Albumin 4.5 D Imaging Studies: Impressions Abdomen X-Ray 07/19/18 14:09 CONCLUSION: Negative examination. Chest X-Ray 07/19/18 14:10 CONCLUSION: 1. No acute cardiopulmonary disease. 2. Mild degenerative changes and scoliosis of the thoracic spine. Medications: Active Medications Generic Name Dose Route Start Last Admin Trade Name Freq PRN Reason Stop Dose Admin Acetaminophen 650 mg 06/20/18 02:11 07/09/18 11:20 Tylenol PO 650 mg Q4H PRN Administration Temp > 100.4 Hydrocodone Bitart/Acetaminophen 1 tab 07/09/18 01:37 07/20/18 02:50 [place] 10/325 PO 1 tab Q4H PRN Administration pain Albuterol 2.5 mg 07/02/18 14:53 07/18/18 20:30 Albuterol Neb (Prn) NEB 2.5 mg Q2HR NEB PRN Administration DYSPNEA Alvimopan 12 mg 07/19/18 14:00 07/20/18 01:55 Entereg PO 07/26/18 02:01 12 mg Q12H [facility] Administration Artificial Tears 1 drop 07/02/18 16:00 07/20/18 09:30 Tears Naturale Opth Drops EACH EYE 1 drop Q8H [facility] Administration Bisacodyl 10 mg 06/24/18 15:15 07/20/18 09:30 Dulcolax Supp RECTAL Not Given DAILY [facility] Budesonide 0.5 mg 06/26/18 20:00 07/20/18 08:27 Pulmocort Respule Neb NEB 0.5 mg Q12HR NEB [facility] Administration Chlorhexidine Gluconate 15 ml 06/26/18 20:00 07/20/18 09:30 Peridex 0.12% Oral Kit OROPHARYNG Not Given BID@0800,2000 [facility] Diltiazem HCl 60 mg 06/30/18 09:00 07/20/18 12:36 Cardizem PO 60 mg QID [facility] Administration Duloxetine HCl 20 mg 06/23/18 18:00 06/28/18 09:09 Cymbalta PO Not Given DAILY [facility] Potassium Chloride 40 meq/ 1,020 mls @ 84 mls/hr 07/19/18 17:00 07/20/18 05: 12 Dextrose/Lactated Ringer's IV.CONT 84 mls/hr .Q12H9M [facility] Administration Insulin Human Regular 0 units 07/19/18 18:00 07/20/18 06:02 Novolin R Correctional Sugar Inj SQ 1 units Q6HR [facility] Administration Protocol Methylnaltrexone [place] 12 mg 07/10/18 09:00 07/20/18 12:36 Relistor SQ 12 mg DAILY [facility] Administration Methylprednisolone Sodium Succinate 20 mg 07/18/18 09:00 07/20/18 12:23 Solumedrol Inj IV.PUSH 20 mg DAILY [facility] Administration Metoclopramide HCl 10 mg 07/09/18 22:00 07/20/18 05:41 Reglan Inj IV.PUSH 10 mg Q8HR [facility] Administration Protocol Metoprolol Tartrate 2.5 mg 06/27/18 15:08 07/01/18 01:26 Lopressor Inj IV.PUSH 2.5 mg Q6H PRN Administration HEART RATE GREATER THAN 115 Miscellaneous Medication 1 each 06/26/18 12:00 07/20/18 05:12 OROPHARYNG 1 each 0000,0400,1200,1600 [facility] Administration Ondansetron HCl 4 mg 06/20/18 02:11 07/08/18 08:53 Zofran Inj IV.PUSH 4 mg Q6H PRN Administration NAUSEA OR VOMITING Pantoprazole Sodium 40 mg 07/12/18 14:00 07/20/18 01:55 Protonix Inj IV.PUSH 40 mg Q12H [facility] Administration Sodium Biphosphate/Sodium Phosphate 118 ml 07/12/18 14:00 07/13/18 09:00 Fleets Enema (Adult) RECTAL 118 ml DAILY [facility] Administration Sodium Chloride 2 ml 06/20/18 09:00 07/20/18 12:24 Ns Flush IV.FLUSH 2 ml BID [facility] Administration Sodium Chloride 2 ml 06/20/18 02:09 07/09/18 09:06 Ns Flush IV.FLUSH 2 ml PRN PRN Administration FLUSH AFTER USING IV ACCESS Sodium Chloride 0 ml 07/03/18 09:00 07/19/18 08:42 Ns Flush IV.FLUSH 5 ml DAILY [facility] Administration Objective Remarks: GENERAL: Chronically ill-appearing older male resting in bed in no acute distress HEAD: Normocephalic. EYES: No injection or drainage. NECK: Supple, trachea midline. CARDIOVASCULAR: Regular rate and rhythm. Mildly tachycardic RESPIRATORY: Diminished anteriorly. Currently on nasal cannula. Breathing unlabored. GASTROINTESTINAL: Abdomen distended. Nontender to palpation. EXTREMITIES: No cyanosis, or edema. MUSCULOSKELETAL: Generalized weakness NEUROLOGICAL: Awake and alert. Normal speech. No obvious focal deficit. Assessment/Plan - Plan 1. Thrombocytopenia: Repeat studies show no obvious reason for thrombocytopenia. His fibrinogen is low normal. 2. As patient is on steroids for his lung function it would seem that his platelet count would increase if the thrombocytopenia was due to ITP 3. Continue to monitor CBC.
--- NOTE | 2018-07-20 14:23 | P.PN ---
Subjective Interval history: ALERT NO SOB Physical Exam Vital signs: Vital Signs 07/19/18 15:00 07/19/18 16:00 07/19/18 17:00 Temperature Pulse Rate 104 H 101 H 104 H Respiratory Rate 21 14 21 Blood Pressure Pulse Oximetry 96 100 100 07/19/18 17:51 07/19/18 18:00 07/19/18 18:36 Temperature Pulse Rate 113 H 108 H Respiratory Rate 33 H 21 Blood Pressure 159/82 H 159/82 H Pulse Oximetry 100 97 99 07/19/18 19:00 07/19/18 20:00 07/19/18 20:16 Temperature 98.6 F Pulse Rate 110 H 104 H 106 H Respiratory Rate 20 21 20 Blood Pressure 129/83 Pulse Oximetry 99 100 07/19/18 20:18 07/19/18 21:00 07/19/18 21:07 Temperature Pulse Rate 106 H 103 H Respiratory Rate 24 17 Blood Pressure 137/83 137/83 Pulse Oximetry 100 100 100 07/19/18 21:41 07/19/18 22:00 07/19/18 23:00 Temperature Pulse Rate 97 H 101 H Respiratory Rate 18 21 Blood Pressure 144/69 H 158/79 H Pulse Oximetry 100 100 100 07/20/18 00:00 07/20/18 00:02 07/20/18 00:50 Temperature 98.6 F Pulse Rate 95 H 96 H Respiratory Rate 18 18 Blood Pressure 185/84 H 167/84 H Pulse Oximetry 100 100 100 07/20/18 01:00 07/20/18 01:08 07/20/18 02:00 Temperature Pulse Rate 98 H 98 H 96 H Respiratory Rate 20 28 H 15 Blood Pressure 179/81 H 152/76 H 156/84 H Pulse Oximetry 100 100 100 07/20/18 02:50 07/20/18 03:00 07/20/18 03:20 Temperature Pulse Rate 82 Respiratory Rate 23 28 H 12 Blood Pressure 147/83 H Pulse Oximetry 100 07/20/18 04:00 07/20/18 04:13 07/20/18 04:47 Temperature Pulse Rate 93 H 93 H Respiratory Rate 18 11 L Blood Pressure 126/77 Pulse Oximetry 100 100 100 07/20/18 05:00 07/20/18 06:00 07/20/18 07:00 Temperature Pulse Rate 101 H 99 H 102 H Respiratory Rate 20 13 22 Blood Pressure 153/85 H 157/83 H 137/81 Pulse Oximetry 100 100 100 07/20/18 08:00 07/20/18 08:24 07/20/18 08:28 Temperature Pulse Rate 101 H 109 H Respiratory Rate 13 21 Blood Pressure 159/91 H Pulse Oximetry 100 100 07/20/18 09:00 07/20/18 09:23 07/20/18 10:00 Temperature 98 F Pulse Rate 101 H 101 H Respiratory Rate 14 17 Blood Pressure 158/81 H 157/80 H Pulse Oximetry 100 100 100 07/20/18 11:00 07/20/18 12:00 07/20/18 13:00 Temperature 98 F Pulse Rate 101 H 107 H 106 H Respiratory Rate 15 31 H 29 H Blood Pressure 164/79 H 151/77 H 155/76 H Pulse Oximetry 100 100 93 L 07/20/18 14:00 Temperature Pulse Rate 97 H Respiratory Rate 20 Blood Pressure 134/73 Pulse Oximetry 100 Intake & Output 07/19/18 07/20/18 07/20/18 18:59 06:59 18:59 Intake Total 440 / 440 1000 / 1000 Output Total 450 / 450 500 / 500 Balance -10 / -10 500 / 500 Weight 77.6 kg Intake: IV 200 / 200 1000 / 1000 KCl Inj 40 MEQ In D5W/LR Inj 1, 1000 / 1000 000 ML @ 84 mls/hr IV.CONT . Q12H9M [facility] Rx#:[id number] Magnesium Sulfate 1 gm/D5W 100 200 / 200 ml Premix 100 ML @ 100 mls/hr IV.SIG Q1H [facility] Rx#:[id number] Oral 240 / 240 Output: Urine Amount (Catheter) 450 / 450 500 / 500 Condom 450 / 450 500 / 500 Other: Date of Last Bowel Movement 07/19/18 07/20/18 07/20/18 # Bowel Movements 0 Narrative: GENERAL: Well-nourished, well-developed. Alert SKIN: Warm and dry. No rash. HEENT: Normocephalic. Atraumatic. Pupils equal and round. Mucous membranes pink and moist. NECK: Trachea midline. No JVD. CARDIOVASCULAR: Regular rate and rhythm. No murmur appreciated. RESPIRATORY: Mild abdominal breathing. Decreased inspiratory effort, otherwise clear to auscultation. Breath sounds equal bilaterally. GASTROINTESTINAL: Abdomen firm, mildly distended, nontender. Normoactive bowel sounds x4. MUSCULOSKELETAL: No obvious deformities. 1+ BLE edema. NEUROLOGICAL: Awake and alert. Moving all extremities spontaneously. Normal speech. - Urinary Catheter Management Indwelling Urethral Catheter Cath placed during this visit: yes, but has since been removed by the nurse Reason for continuing: Acute urinary retention Insertion date: 07/14/18 Insertion time: 21:55 Removal date: 07/13/18 Removal time: 13:30 Straight Cath placed during this visit: no Condom Cath placed during this visit: no Results - Labs CBC & Chem 7: 07/20/18 03:50 07/20/18 03:50 Laboratory Results - last 24 hr 07/19/18 07/19/18 07/19/18 14:44 14:59 15:18 WBC RBC Hgb Hct MCV MCH MCHC RDW Plt Count MPV Prelim Diff (Auto) Neut % (Auto) Lymph % (Auto) [place] % (Auto) Eos % (Auto) Baso % (Auto) Neut # (Auto) Lymph # (Auto) [place] # (Auto) Eos # (Auto) Baso # (Auto) WBC Differential Diff Scan Differential Comment Platelet Estimate Platelet Morphology Haptoglobin PT 12.0 H INR 1.2 APTT 31.1 Fibrinogen 154 L Puncture Site Left radial Patient Temperature 98.6 O2 Saturation 80 L* ABG pH 7.39 ABG pCO2 66 H* ABG pO2 46 L* ABG HCO3 38 H ABG O2 Content 11.0 L ABG Base Excess 12.8 H ABG Methemoglobin 1.1 Raymon Test Present Hemoglobin 9.7 L Carboxyhemoglobin 1.9 O2 Delivery Device Bipap Vent Setting Ipap 18,epap 5 Inspired O2 21 Critical Value Yes Sodium Potassium Chloride Carbon Dioxide Anion Gap BUN Creatinine Estimated GFR POC Glucose 233 H Random Glucose Calcium Phosphorus Magnesium Total Bilirubin AST ALT Alkaline Phosphatase Total Protein Albumin 07/19/18 07/19/18 07/19/18 15:18 17:43 21:04 WBC RBC Hgb Hct MCV MCH MCHC RDW Plt Count MPV Prelim Diff (Auto) Neut % (Auto) Lymph % (Auto) [place] % (Auto) Eos % (Auto) Baso % (Auto) Neut # (Auto) Lymph # (Auto) [place] # (Auto) Eos # (Auto) Baso # (Auto) WBC Differential Diff Scan Differential Comment Platelet Estimate Platelet Morphology Haptoglobin 94 PT INR APTT Fibrinogen Puncture Site Patient Temperature O2 Saturation ABG pH ABG pCO2 ABG pO2 ABG HCO3 ABG O2 Content ABG Base Excess ABG Methemoglobin [place] Test Hemoglobin Carboxyhemoglobin O2 Delivery Device Vent Setting Inspired O2 Critical Value Sodium Potassium Chloride Carbon Dioxide Anion Gap BUN Creatinine Estimated GFR POC Glucose 299 H Random Glucose Calcium Phosphorus Magnesium 1.7 Total Bilirubin AST ALT Alkaline Phosphatase Total Protein Albumin 07/20/18 07/20/18 07/20/18 00:01 03:50 03:50 WBC 4.8 RBC 3.15 L Hgb 9.8 L Hct 29.6 L MCV 94.0 MCH 31.1 MCHC 33.1 RDW 15.7 Plt Count 50 L MPV 10.9 Prelim Diff (Auto) Slide review pending Neut % (Auto) 88.6 H Lymph % (Auto) 4.3 L [place] % (Auto) 6.9 Eos % (Auto) 0.1 Baso % (Auto) 0.1 Neut # (Auto) 4.3 Lymph # (Auto) 0.2 L [place] # (Auto) 0.3 Eos # (Auto) 0.0 Baso # (Auto) 0.0 WBC Differential . Diff Scan Auto diff confirmed Differential Comment . Platelet Estimate Low L Platelet Morphology Normal Haptoglobin PT INR APTT Fibrinogen Puncture Site Patient Temperature O2 Saturation ABG pH ABG pCO2 ABG pO2 ABG HCO3 ABG O2 Content ABG Base Excess ABG Methemoglobin Ray[place] Test Hemoglobin Carboxyhemoglobin O2 Delivery Device Vent Setting Inspired O2 Critical Value Sodium 142 Potassium 4.3 D Chloride 100 Carbon Dioxide 37.4 H Anion Gap 5 BUN 53 H Creatinine 1.97 H Estimated GFR 41 L POC Glucose 222 H Random Glucose 195 H Calcium 7.7 L Phosphorus 2.3 L Magnesium 1.7 Total Bilirubin 0.8 AST 34 ALT 59 Alkaline Phosphatase 55 Total Protein 6.8 Albumin 4.5 D - Imaging Impressions Abdomen X-Ray 07/19/18 14:09 CONCLUSION: Negative examination. Chest X-Ray 07/19/18 14:10 CONCLUSION: 1. No acute cardiopulmonary disease. 2. Mild degenerative changes and scoliosis of the thoracic spine. - Procedures 06/26/18endotracheal intubation by critical care Dr. Ahn 06/26/18ultrasound-guided right IJ central line by critical care Dr. Ahn 07/02/18endotracheal intubation by critical care Dr. Ahn 07/06/18colonoscopy by : Stool in cecum, large amount of water flush, stool suctioned. Marked decompression. Rectal tube left in place. Internal hemorrhoids. 07/10/18colonoscopy by Dr. Keith: Ischemic ulcer cecum. Some semisolid stool suctioned. Marked decompression. Rectal ulcer from rectal tube. Hemorrhoids internal grade 2. 07/15/18decompressive colonoscopy by Dr. Berrios Assessment and Plan - Plan IMPRESSION RESPIRATORY FAILURE COPD PNA PLAN O2 NEEDED/BIPAP ANTIBX BRONCHODILATORS INCREASE ACTIVITY
--- NOTE | 2018-07-20 15:43 | P.PNCC ---
Subjective Subjective Remarks/Hospital Course: Mr. Curry is a 73-year-old -[place] male with past medical history significant for COPD on 3 L nasal cannula, hypertension, hyperlipidemia and anxiety who was admitted to the hospitalist service on 06/19/2018 for worsening shortness of breath due to COPD exacerbation. He was treated with IV Solu- Medrol, IV antibiotics, breathing treatments gradually improved. Patient was also complaining about dyspepsia and underwent EGD by GI yesterday. Per report the EGD was normal but patient developed worsening shortness of breath and COPD exacerbation postprocedure, possibly from aspiration after sedated. Two ABGs done yesterday showed hypercapnic respiratory failure second 1 was on BiPAP and this was improved with pH 7.3 with PCO2 of 74. Patient remained on BiPAP overnight however was noticed to be lethargic today a.m., stat ABG showed pH of 7.21 PCO2 110 PO2 88 while on BiPAP. Patient was lethargic intermittently dozing off due to CO2 narcosis. Critical care medicine was consulted and I immediately evaluated the patient. Patient had obviously failed BiPAP I proceeded with endotracheal intubation placed on mechanical ventilation. Postintubation I have ordered single dose of Solu-Medrol 125 mg x1 continue Solu -Medrol 60 every 8, discontinue ceftriaxone and start cefepime 2 g IV every 8 hours continue azithromycin. Add budesonide inhaled, placed on scheduled DuoNeb every 4 hours and as needed. 06/27: Patient was intubated yesterday for severe hypercapnic respiratory failure. Currently remains intubated sedated and intubated remains diminished bilaterally. Heavily sedated for ventilator synchrony 06/28: Urine output significantly improved with fluid resuscitation. Creat down trending now 2 from 2.3, UO >3.3 L. Remains intubated sedated. Will initiate daily sedation vacation and CPAP trials 06/29: More awake today tolerating CPAP trials intermittently follows commands but gets agitated/frustrated fast. Urine output remains excellent creatinine 1.4. However sodium increasing 158 today. Night garde manger had changed fluid to D5 W for free water replacement. Due to hypoglycemia will change to quarter normal saline at 150 mL/h repeat CMP in the afternoon 06/30 Patient was extubated yesterday. Awake 07/01 Patient is lying in bed in NAD. T: 100.5 07/02: Intubated early this morning due to acute hypoxic respiratory failure. Central line placed due to hypotension. Plan for GI perform endoscopic decompression of this large bowel today. Arousable and does follow commands. Placed on argatroban 07/03: Currently, intubated with borderline blood pressure. Central line placed yesterday due to hypotension. Did not move bowels despite 1 L of fluid from colonoscopy yesterday and multiple laxatives provided. See orders for additional laxatives today. Might need neostigmine. 07/04 Patient remains intubated and sedated with Diprivan. Given Neostigmine last night. KUB this morning showed colonic ileus. Afebrile. On Argatroban. 07/05 No events overnight, sedated with Diprivan and intubated. Off Argatroban. 07/06 Patient remains intubated and sedated. Afebrile. 07/07 Patient remains intubated, s/p decompressive colonoscopy yesterday. Awake. 07/08 Patient s/p extubation yesterday. Awake and alert. 07/09 Patient is awake, alert lying in bed in NAD. Afebrile. 07/10 Patient is awake and alert, Afebrile. 07/11 Patient s/p decompressive colonoscopy yesterday. Afebrile. On Lasix drip.( UOP: 2800ml overnight). Cr: 3.0 from 2.25. 07/12 Patient is awake, alert given Neostigmine overnight. NGT to LIWS, off Lasix drip. 07/13: Resting comfortably in bed in no acute distress. 3 bowel movements documented. Remains n.p.o. Bladder pressures around 6. Potassium being replaced. Remains anemic around 7. 07/14 Patient is lying in bed in NAD. Afebrile. 07/15 No events overnight. Afebrile. 07/16: Resting in bed mild distress. Abdomen remains distended. Hemoglobin has dropped to 6.2 2 units of PRBC ordered. Patient underwent decompressive colonoscopy by Dr. Berrios for colonic ileus 07/17: No significant overnight events, patient states that he wants to get out of bed to a chair as he is having rectal discomfort. 07/18: Patient reportedly had a BM after digital rectal exam yesterday, states that he's been passing flatus "every now and then" overnight. No plans for OR or sigmoidoscopy as per colorectal service, OK to transfer out of [facility]. 07/19: Patient transferred to med surg yesterday, complained of shortness of breath again today. An ABG showed a pCO2 of 79 so he was placed on bipap and transferred to [facility]. Most recent ABG shows pCO2 of 66, KUB still has abdominal distension but appears to be improved when compared to KUB from 07/15. Patient has reportedly been having bowel movements and passing flatus overnight. 07/20: No dramatic improvement in abdominal distention however abdomen soft. The patient was able to breathe comfortably overnight and remained alert. This morning the BiPAP mask was removed for half an hour and the patient did well without evidence of CO2 retention or somnolence. Objective Vital Signs / I&O: Vital Signs 07/19/18 16:00 07/19/18 17:00 07/19/18 17:51 Temperature Pulse Rate 101 H 104 H Respiratory Rate 14 21 Blood Pressure Pulse Oximetry 100 100 100 07/19/18 18:00 07/19/18 18:36 07/19/18 19:00 Temperature Pulse Rate 113 H 108 H 110 H Respiratory Rate 33 H 21 20 Blood Pressure 159/82 H 159/82 H Pulse Oximetry 97 99 99 07/19/18 20:00 07/19/18 20:16 07/19/18 20:18 Temperature 98.6 F Pulse Rate 104 H 106 H Respiratory Rate 21 20 Blood Pressure 129/83 Pulse Oximetry 100 100 07/19/18 21:00 07/19/18 21:07 07/19/18 21:41 Temperature Pulse Rate 106 H 103 H Respiratory Rate 24 17 Blood Pressure 137/83 137/83 Pulse Oximetry 100 100 100 07/19/18 22:00 07/19/18 23:00 07/20/18 00:00 Temperature Pulse Rate 97 H 101 H 95 H Respiratory Rate 18 21 18 Blood Pressure 144/69 H 158/79 H 185/84 H Pulse Oximetry 100 100 100 07/20/18 00:02 07/20/18 00:50 07/20/18 01:00 Temperature 98.6 F Pulse Rate 96 H 98 H Respiratory Rate 18 20 Blood Pressure 167/84 H 179/81 H Pulse Oximetry 100 100 100 07/20/18 01:08 07/20/18 02:00 07/20/18 02:50 Temperature Pulse Rate 98 H 96 H Respiratory Rate 28 H 15 23 Blood Pressure 152/76 H 156/84 H Pulse Oximetry 100 100 07/20/18 03:00 07/20/18 03:20 07/20/18 04:00 Temperature Pulse Rate 82 93 H Respiratory Rate 28 H 12 18 Blood Pressure 147/83 H Pulse Oximetry 100 100 07/20/18 04:13 07/20/18 04:47 07/20/18 05:00 Temperature Pulse Rate 93 H 101 H Respiratory Rate 11 L 20 Blood Pressure 126/77 153/85 H Pulse Oximetry 100 100 100 07/20/18 06:00 07/20/18 07:00 07/20/18 08:00 Temperature Pulse Rate 99 H 102 H 101 H Respiratory Rate 13 22 13 Blood Pressure 157/83 H 137/81 159/91 H Pulse Oximetry 100 100 100 07/20/18 08:24 07/20/18 08:28 07/20/18 09:00 Temperature 98 F Pulse Rate 109 H 101 H Respiratory Rate 21 14 Blood Pressure 158/81 H Pulse Oximetry 100 100 07/20/18 09:23 07/20/18 10:00 07/20/18 11:00 Temperature Pulse Rate 101 H 101 H Respiratory Rate 17 15 Blood Pressure 157/80 H 164/79 H Pulse Oximetry 100 100 100 07/20/18 12:00 07/20/18 13:00 07/20/18 14:00 Temperature 98 F Pulse Rate 107 H 106 H 97 H Respiratory Rate 31 H 29 H 20 Blood Pressure 151/77 H 155/76 H 134/73 Pulse Oximetry 100 93 L 100 Intake & Output 07/19/18 07/20/18 07/20/18 18:59 06:59 18:59 Intake Total 440 / 440 1000 / 1000 Output Total 450 / 450 500 / 500 Balance -10 / -10 500 / 500 Weight 77.6 kg Intake: IV 200 / 200 1000 / 1000 KCl Inj 40 MEQ In D5W/LR Inj 1, 1000 / 1000 000 ML @ 84 mls/hr IV.CONT . Q12H9M [facility] Rx#:[id number] Magnesium Sulfate 1 gm/D5W 100 200 / 200 ml Premix 100 ML @ 100 mls/hr IV.SIG Q1H [facility] Rx#:[id number] Oral 240 / 240 Output: Urine Amount (Catheter) 450 / 450 500 / 500 Condom 450 / 450 500 / 500 Other: Date of Last Bowel Movement 07/19/18 07/20/18 07/20/18 # Bowel Movements 0 Result Diagrams: 07/20/18 03:50 07/20/18 03:50 Objective Remarks: GENERAL: Elderly male sitting in bed, nasal cannula, comfortable and calm. SKIN: Warm and dry HEAD: Normocephalic. EYES: PERRL NECK: Supple, trachea midline. Airway widely patent, no obstructive noises CARDIOVASCULAR: Regular rhythm in the high 70s. RESPIRATORY: B/l equal air entry, comfortable respiratory pattern, speaking in complete sentences GASTROINTESTINAL: Abdomen distended and firm, non-tender, no guarding, bowel sounds present MUSCULOSKELETAL: 1+ bilateral upper/ lower extremity edema, warm and well- perfused Neuro: Awake and alert, speaking in complete sentences, no neuro deficits Assessment and Plan - Assessment and Plan Plan: ASSESSMENT: Hypercapnic respiratory failure Acute COPD exacerbation Altered mental status due to CO2 narcosis Acute kidney injury/failure Anemia requiring transfusion Colonic ileus Hypertension Leukocytosis Hyperglycemia COPD Hypernatremia Hypopotassemia Normocytic anemia Thrombocytopenia Hyperphosphatemia PLAN: NEURO: -Monitor neuro status, avoid sedatives RESP: -Extubated 06/29. Reintubated 07/02 extubated again 07/07 -DuoNeb every 4 hours scheduled and butyryl aerosols every 2 hours as needed -Wean methylprednisolone succinate from 40 mg to 20 mg daily -Inhaled budesonide -CXR -Leave BiPAP off during the day and use at night. CV: - Monitor HR and BP keep MAP>65mmHg -Continue with BP meds, Cardizem 60mg Q6 GI: -Decompressive colonoscopy by Dr. Berrios performed on 07/15/2018. -KUB 07/14: Ileus. Get follow-up KUB stat -KUB 07/13: Stable nonobstructive colonic distention. Given Neostigmine 07/11. -NGT to gravity -s/p repeat decompressive colonoscopy 07/10 and 07/15 -IV famotidine -On docusate sodium/senna 1 tablet twice daily, lactulose 30 cc 4 times daily -Started on clear liquids by surgical service today. FEN/: -Monitor renal function, I/O's, avoid nephrotoxins -Renal function continues to improve- Cr: 2.57--> 1.70. -Renal- Dr. Figueroa ID: -Off abx monitor for signs of infections (Fever, WBC) WBC stable -BC and urine cx from 07/11- NG in 5 days -07/02 BC: NGTS, sputum cx 07/02:normal resp justyn -ID is following- Dr. Brown PRN HEME: -Monitor CBC, coags, Hep PLT is positive. ANNMARIE negative. Hematology is following. Off argatroban drip -s/p 2U PRBCs on 07/16, Hg this morning is stable -Stable thrombocytopenia -Patient encouraged to ambulate with PT ENDO: -Electrolyte replacement per protocol -Sliding scale insulin medium scale PROPH: -Bilateral lower extremity SCDs. PPI -Doppler US LE negative DVT 07/02 LINES: -Utilize peripheral IVs Overall impression: Elderly man with severe emphysema and quite marginal respiratory status did well overnight on BiPAP and is breathing comfortably this morning. His somnolence has resolved and he is moving air well. We will continue BiPAP noninvasive ventilation at night.
[2018-07-21] MEDS: Artificial Tears Opth Drops 15 ML Bottle EACH EYE SCH ×3 (01:21→18:01)
[2018-07-21] MEDS: Pantoprazole Inj 40 MG Vial IV.PUSH SCH ×2 (01:25→13:21)
[2018-07-21] MEDS: POTASSIUM CHLORIDE IV.CONT SCH (04:03)
[2018-07-21] MEDS: DEXTROSE IV.CONT SCH (04:03)
[2018-07-21] MEDS: LACTATED RINGER S IV.CONT SCH (04:03)
[2018-07-21 04:21] LABS: Baso % (Auto) 0.1 % (0.0-2.0); Eos % (Auto) 0.2 % (0.0-4.0); Hemoglobin 9.7 gm/dL (13.0-17.0); Lymph # (Auto) 0.2 th/mm3 (1.0-4.8); Lymph % (Auto) 3.3 % (9.0-44.0); Mean Corpuscular HGB Conc 32.2 % (32.0-36.0); Mean Corpuscular Hemoglobin 30.7 pg (27.0-34.0); Mean Corpuscular Volume 95.4 fL (80.0-100.0); Mean Platelet Volume 10.1 fL (7.0-11.0); Mono # (Auto) 0.3 th/mm3 (0.0-0.9); Mono % (Auto) 5.3 % (0.0-8.0); Neut # (Auto) 4.5 th/mm3 (1.8-7.7); Neut % (Auto) 91.1 % (16.0-70.0); Platelet Count 46 th/mm3 (150-450); Red Blood Count 3.15 mil/mm3 (4.50-5.90); White Blood Count 4.9 th/mm3 (4.0-11.0)
[2018-07-21 04:47] LABS: Alanine Aminotransferase 58 U/L (12-78); Albumin 4.2 g/dL (3.4-5.0); Alkaline Phosphatase 57 U/L (45-117); Anion Gap 6 meq/L (5-15); Aspartate Aminotransferase 27 U/L (15-37); Blood Urea Nitrogen 47 mg/dL (7-18); Carbon Dioxide 33.9 meq/L (21.0-32.0); Chloride 100 meq/L (98-107); Glomerular Filtration Rate 55 mL/min (>89); Glucose,Random 261 mg/dL (74-106); Magnesium 1.3 mg/dL (1.5-2.5); Phosphorus 2.4 mg/dL (2.5-4.9); Potassium 5.4 meq/L (3.5-5.1); Sodium 140 meq/L (136-145); Total Protein 6.6 g/dL (6.4-8.2)
[2018-07-21 05:18] LABS: Platelet Morphology Normal (Normal)
[2018-07-21] MEDS: MethylPREDNISolone Sod Succinate Inj 40 MG/ML Vial IV.PUSH SCH (10:12)
[2018-07-21] MEDS: dilTIAZem 60 MG Tablet PO SCH ×4 (10:12→21:32)
[2018-07-21] MEDS: Bisacodyl 10 MG Supp RECTAL SCH (12:37)
[2018-07-21] MEDS: Methylnaltrexone Inj 12 MG/0.6 ML Vial SQ SCH (12:38)
[2018-07-21] MEDS: Sodium Chloride 0.45 % Inj 1,000 ML IV.CONT SCH (18:01)
--- NOTE | 2018-07-21 19:14 | P.PNPL ---
Subjective Interval history: 73 YOAA male with COPD, 02 dependent Follows at [place] [facility] Admitted with AMS, COPD exac On NC, denies sob Weekend events noted On NC Tolerates PO Physical Exam Vital signs: Vital Signs 07/20/18 20:00 07/20/18 21:00 07/20/18 21:13 Temperature Pulse Rate 92 H 89 99 H Respiratory Rate 14 24 20 Blood Pressure 139/79 149/73 H Pulse Oximetry 100 100 100 07/20/18 22:00 07/20/18 22:21 07/20/18 23:00 Temperature Pulse Rate 88 90 Respiratory Rate 18 22 16 Blood Pressure 141/71 H 133/64 Pulse Oximetry 100 99 07/21/18 00:00 07/21/18 01:21 07/21/18 03:43 Temperature 98 F Pulse Rate 88 Respiratory Rate 15 18 22 Blood Pressure 134/73 Pulse Oximetry 100 07/21/18 04:00 07/21/18 05:00 07/21/18 06:00 Temperature 97.8 F Pulse Rate 99 H 92 H 94 H Respiratory Rate 24 22 21 Blood Pressure 144/86 H 148/96 H 116/78 Pulse Oximetry 100 99 100 07/21/18 07:00 07/21/18 08:00 07/21/18 09:00 Temperature 98 F Pulse Rate 97 H 98 H 100 H Respiratory Rate 26 H 21 20 Blood Pressure 144/62 H 153/70 H Pulse Oximetry 98 100 100 07/21/18 10:00 07/21/18 10:40 07/21/18 11:00 Temperature Pulse Rate 106 H 106 H 106 H Respiratory Rate 22 32 H 24 Blood Pressure 132/76 122/82 Pulse Oximetry 100 100 100 07/21/18 11:21 07/21/18 12:00 07/21/18 12:21 Temperature 98.5 F Pulse Rate 104 H 105 H 103 H Respiratory Rate 22 30 H 45 H Blood Pressure 120/73 134/68 Pulse Oximetry 100 100 100 07/21/18 16:00 Temperature 98 F Pulse Rate 99 H Respiratory Rate 22 Blood Pressure 138/61 Pulse Oximetry Intake & Output 07/21/18 07/21/18 07/22/18 06:59 18:59 06:59 Intake Total 1240 / 1240 480 / 480 Output Total 1700 / 1700 500 / 500 Balance -460 / -460 -20 / -20 Weight 79.8 kg Intake: IV 1020 / 1020 KCl Inj 40 MEQ In D5W/LR Inj 1, 1020 / 1020 000 ML @ 84 mls/hr IV.CONT . Q12H9M [facility] Rx#:[id number] Oral 120 / 120 480 / 480 Tube Feeding 0 / 0 Tube Irrigant 100 / 100 Water Bolus Amount 0 / 0 Anesthesia Amount 0 / 0 Output: Urine 1000 / 1000 500 / 500 Stool 0 / 0 Urine/Stool Mix 0 / 0 Pleural Fluid 0 / 0 Urine Amount (Catheter) 600 / 600 Condom 600 / 600 Gastric Drainage 100 / 100 Right Nare Nasogastric Tube 100 / 100 Other: # Voids 0 # Incontinent Voids 0 Date of Last Bowel Movement 07/21/18 07/20/18 # Bowel Movements 1 # Incontinent Bowel Movements 1 GENERAL: Obese Aa male, NAD SKIN: Warm and dry. HEAD: Normocephalic. EYES: No scleral icterus. No injection or drainage. NECK: Supple, trachea midline. No JVD or lymphadenopathy. CARDIOVASCULAR: Regular rate and rhythm without murmurs, gallops, or rubs. RESPIRATORY: Breath sounds equal bilaterally. No accessory muscle use. GASTROINTESTINAL: Abdomen soft, non-tender, nondistended. MUSCULOSKELETAL: No cyanosis, or edema. BACK: Nontender without obvious deformity. No CVA tenderness. - Urinary Catheter Management Indwelling Urethral Catheter Cath placed during this visit: yes, but has since been removed by the nurse Reason for continuing: Acute urinary retention Insertion date: 07/14/18 Insertion time: 21:55 Removal date: 07/13/18 Removal time: 13:30 Straight Cath placed during this visit: no Condom Cath placed during this visit: no Assessment and Plan - Plan IMPRESSION: Hypercapnoic RF, Reintubated COPD exac AMS improved 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 Abdomenal distension, s/p decompression. PLAN: Aerosol nebs Supplement 02 Solumedrol 20 mg q day Monitor BS Cont Reglan
--- NOTE | 2018-07-21 19:18 | P.PNNP ---
Subjective Interval history: Urine output has improved Physical Exam Vital signs: Vital Signs 07/20/18 20:00 07/20/18 21:00 07/20/18 21:13 Temperature Pulse Rate 92 H 89 99 H Respiratory Rate 14 24 20 Blood Pressure 139/79 149/73 H Pulse Oximetry 100 100 100 07/20/18 22:00 07/20/18 22:21 07/20/18 23:00 Temperature Pulse Rate 88 90 Respiratory Rate 18 22 16 Blood Pressure 141/71 H 133/64 Pulse Oximetry 100 99 07/21/18 00:00 07/21/18 01:21 07/21/18 03:43 Temperature 98 F Pulse Rate 88 Respiratory Rate 15 18 22 Blood Pressure 134/73 Pulse Oximetry 100 07/21/18 04:00 07/21/18 05:00 07/21/18 06:00 Temperature 97.8 F Pulse Rate 99 H 92 H 94 H Respiratory Rate 24 22 21 Blood Pressure 144/86 H 148/96 H 116/78 Pulse Oximetry 100 99 100 07/21/18 07:00 07/21/18 08:00 07/21/18 09:00 Temperature 98 F Pulse Rate 97 H 98 H 100 H Respiratory Rate 26 H 21 20 Blood Pressure 144/62 H 153/70 H Pulse Oximetry 98 100 100 07/21/18 10:00 07/21/18 10:40 07/21/18 11:00 Temperature Pulse Rate 106 H 106 H 106 H Respiratory Rate 22 32 H 24 Blood Pressure 132/76 122/82 Pulse Oximetry 100 100 100 07/21/18 11:21 07/21/18 12:00 07/21/18 12:21 Temperature 98.5 F Pulse Rate 104 H 105 H 103 H Respiratory Rate 22 30 H 45 H Blood Pressure 120/73 134/68 Pulse Oximetry 100 100 100 07/21/18 16:00 Temperature 98 F Pulse Rate 99 H Respiratory Rate 22 Blood Pressure 138/61 Pulse Oximetry Intake & Output 07/21/18 07/21/18 07/22/18 06:59 18:59 06:59 Intake Total 1240 / 1240 480 / 480 Output Total 1700 / 1700 500 / 500 Balance -460 / -460 -20 / -20 Weight 79.8 kg Intake: IV 1020 / 1020 KCl Inj 40 MEQ In D5W/LR Inj 1, 1020 / 1020 000 ML @ 84 mls/hr IV.CONT . Q12H9M [facility] Rx#:[id number] Oral 120 / 120 480 / 480 Tube Feeding 0 / 0 Tube Irrigant 100 / 100 Water Bolus Amount 0 / 0 Anesthesia Amount 0 / 0 Output: Urine 1000 / 1000 500 / 500 Stool 0 / 0 Urine/Stool Mix 0 / 0 Pleural Fluid 0 / 0 Urine Amount (Catheter) 600 / 600 Condom 600 / 600 Gastric Drainage 100 / 100 Right Nare Nasogastric Tube 100 / 100 Other: # Voids 0 # Incontinent Voids 0 Date of Last Bowel Movement 07/21/18 07/20/18 # Bowel Movements 1 # Incontinent Bowel Movements 1 Narrative: GENERAL: Well-nourished, well-developed. Alert SKIN: Warm and dry. No rash. HEENT: Normocephalic. Atraumatic. Pupils equal and round. Mucous membranes pink and moist. NECK: Trachea midline. No JVD. CARDIOVASCULAR: Regular rate and rhythm. No murmur appreciated. RESPIRATORY: Mild abdominal breathing. Decreased inspiratory effort, otherwise clear to auscultation. Breath sounds equal bilaterally. GASTROINTESTINAL: Abdomen firm, mildly distended, nontender. Normoactive bowel sounds x4. MUSCULOSKELETAL: No obvious deformities. 1+ BLE edema. NEUROLOGICAL: Awake and alert. Moving all extremities spontaneously. Normal speech. - Urinary Catheter Management Indwelling Urethral Catheter Cath placed during this visit: yes, but has since been removed by the nurse Reason for continuing: Acute urinary retention Insertion date: 07/14/18 Insertion time: 21:55 Removal date: 07/13/18 Removal time: 13:30 Straight Cath placed during this visit: no Condom Cath placed during this visit: no Assessment and Plan - Assessment (1) Acute renal failure Code(s): N17.9 - Acute kidney failure, unspecified Status: Acute (2) Anasarca Code(s): R60.1 - Generalized edema Status: Acute (3) Abdominal distention Code(s): R14.0 - Abdominal distension (gaseous) Status: Acute (4) Ileus Code(s): K56.7 - Ileus, unspecified Status: Acute - Plan ALLYSON with non-oliguric ATN Creatinine 3 -> 3.4, 4.44.7-4.3 -3.6-- 2.5 -> 1.7 ->1.9-> 1.5 Hemoglobin is stable Hypokalemia 5.4 Maintain accurate I+O Slight increase in creatinine, will continue to monitor Diet has been advanced to clear liquid. Monitor BMP . Will give Kayexalate Follow-up BMP potassium is 5.4
[2018-07-21] MEDS ORDERED: Sodium Polystyrene Sulfonate Powder 15 GM Bottle PO ONE (21:00)
[2018-07-22] MEDS: Artificial Tears Opth Drops 15 ML Bottle EACH EYE SCH ×4 (02:51→23:54)
[2018-07-22] MEDS: Pantoprazole Inj 40 MG Vial IV.PUSH SCH ×2 (02:52→13:14)
[2018-07-22] MEDS: Sodium Chloride 0.45 % Inj 1,000 ML IV.CONT SCH ×2 (07:29→23:54)
[2018-07-22 07:43] LABS: Baso % (Auto) 0.1 % (0.0-2.0); Eos % (Auto) 0.1 % (0.0-4.0); Hematocrit 27.4 % (39.0-51.0); Hemoglobin 9.2 gm/dL (13.0-17.0); Lymph # (Auto) 0.2 th/mm3 (1.0-4.8); Lymph % (Auto) 5.5 % (9.0-44.0); Mean Corpuscular HGB Conc 33.5 % (32.0-36.0); Mean Corpuscular Hemoglobin 31.7 pg (27.0-34.0); Mean Corpuscular Volume 94.5 fL (80.0-100.0); Mean Platelet Volume 9.9 fL (7.0-11.0); Mono # (Auto) 0.3 th/mm3 (0.0-0.9); Mono % (Auto) 7.8 % (0.0-8.0); Neut # (Auto) 3.8 th/mm3 (1.8-7.7); Neut % (Auto) 86.5 % (16.0-70.0); Platelet Count 48 th/mm3 (150-450); Red Cell Distribution Width 14.9 % (11.6-17.2); White Blood Count 4.4 th/mm3 (4.0-11.0)
[2018-07-22 07:58] LABS: Alanine Aminotransferase 53 U/L (12-78); Alkaline Phosphatase 58 U/L (45-117); Anion Gap 2 meq/L (5-15); Aspartate Aminotransferase 25 U/L (15-37); Blood Urea Nitrogen 38 mg/dL (7-18); Calcium 7.5 mg/dL (8.5-10.1); Carbon Dioxide 35.1 meq/L (21.0-32.0); Chloride 103 meq/L (98-107); Glomerular Filtration Rate 73 mL/min (>89); Glucose,Random 165 mg/dL (74-106); Phosphorus 1.7 mg/dL (2.5-4.9); Potassium 4.6 meq/L (3.5-5.1); Sodium 140 meq/L (136-145); Total Protein 6.4 g/dL (6.4-8.2)
[2018-07-22] MEDS ORDERED: Mag Sulf 1 gm/100 ml Premix 100 ML IV.SIG ONE (08:49)
--- NOTE | 2018-07-22 08:55 | P.PNIM ---
Subjective Interval history: f/u; respiratory failure with mild sob. abdomen is distended but denies abdominal pain or nausea. no fever. Physical Exam Vital signs: Vital Signs 07/21/18 09:00 07/21/18 10:00 07/21/18 10:40 Temperature Pulse Rate 100 H 106 H 106 H Respiratory Rate 20 22 32 H Blood Pressure 132/76 Pulse Oximetry 100 100 100 07/21/18 11:00 07/21/18 11:21 07/21/18 12:00 Temperature 98.5 F Pulse Rate 106 H 104 H 105 H Respiratory Rate 24 22 30 H Blood Pressure 122/82 120/73 Pulse Oximetry 100 100 100 07/21/18 12:21 07/21/18 16:00 07/21/18 19:45 Temperature 98 F Pulse Rate 103 H 99 H 104 H Respiratory Rate 45 H 22 Blood Pressure 134/68 138/61 Pulse Oximetry 100 07/21/18 20:00 07/21/18 20:10 07/21/18 23:50 Temperature 97.1 F L Pulse Rate 106 H 107 H 115 H Respiratory Rate 18 20 Blood Pressure 128/62 Pulse Oximetry 99 99 07/22/18 00:00 07/22/18 04:00 07/22/18 05:00 Temperature 97.9 F Pulse Rate 105 H 108 H Respiratory Rate 19 Blood Pressure 133/71 Pulse Oximetry 98 98 07/22/18 06:00 07/22/18 08:08 Temperature 97.9 F Pulse Rate 109 H 110 H Respiratory Rate 17 18 Blood Pressure 132/73 Pulse Oximetry 98 Intake & Output 07/21/18 07/22/18 07/22/18 18:59 06:59 18:59 Intake Total 480 / 480 1026 / 1026 194 / 194 Output Total 500 / 500 600 / 600 Balance -20 / -20 426 / 426 194 / 194 Weight 81.6 kg Intake: IV 806 / 806 194 / 194 1/2 Normal Saline Inj 1,000 ML 806 / 806 194 / 194 @ 60 mls/hr IV.CONT .[id number] [facility] Rx#:[id number] Oral 480 / 480 220 / 220 Output: Urine 500 / 500 Urine Amount (Catheter) 600 / 600 Condom 600 / 600 Other: Date of Last Bowel Movement 07/20/18 07/22/18 # Bowel Movements 1 - Constitutional mild distress - Routine Respiratory Exam Present: diminished air movement - Routine Cardiovascular Exam Present: RRR - Routine Abdominal Exam Present: soft, distended - Routine Extremities Exam Comments: no pedal edema. - Routine Neurological Exam Present: alert (oriented to person and place but not to time.) - Urinary Catheter Management Indwelling Urethral Catheter Cath placed during this visit: yes, but has since been removed by the nurse Reason for continuing: Acute urinary retention Insertion date: 07/14/18 Insertion time: 21:55 Removal date: 07/13/18 Removal time: 13:30 Straight Cath placed during this visit: no Condom Cath placed during this visit: no Results - Labs CBC & Chem 7: 07/22/18 05:45 07/22/18 05:45 Laboratory Results - last 24 hr 07/22/18 07/22/18 05:45 05:45 WBC 4.4 RBC 2.90 L Hgb 9.2 L Hct 27.4 L MCV 94.5 MCH 31.7 MCHC 33.5 RDW 14.9 Plt Count 48 L MPV 9.9 Prelim Diff (Auto) Slide review pending Neut % (Auto) 86.5 H Lymph % (Auto) 5.5 L [place] % (Auto) 7.8 Eos % (Auto) 0.1 Baso % (Auto) 0.1 Neut # (Auto) 3.8 Lymph # (Auto) 0.2 L [place] # (Auto) 0.3 Eos # (Auto) 0.0 Baso # (Auto) 0.0 Differential Comment . Sodium 140 Potassium 4.6 D Chloride 103 Carbon Dioxide 35.1 H Anion Gap 2 L BUN 38 H Creatinine 1.19 Estimated GFR 73 L Random Glucose 165 H Calcium 7.5 L Phosphorus 1.7 L Magnesium 1.0 L Total Bilirubin 0.6 AST 25 ALT 53 Alkaline Phosphatase 58 Total Protein 6.4 Albumin 4.0 - Procedures 06/26/18endotracheal intubation by critical care Dr. Ahn 06/26/18ultrasound-guided right IJ central line by critical care Dr. Ahn 07/02/18endotracheal intubation by critical care Dr. Ahn 07/06/18colonoscopy by : Stool in cecum, large amount of water flush, stool suctioned. Marked decompression. Rectal tube left in place. Internal hemorrhoids. 07/10/18colonoscopy by Dr. Keith: Ischemic ulcer cecum. Some semisolid stool suctioned. Marked decompression. Rectal ulcer from rectal tube. Hemorrhoids internal grade 2. 07/15/18decompressive colonoscopy by Dr. Berrios Assessment and Plan - Assessment (1) Acute exacerbation of chronic obstructive pulmonary disease (COPD) Code(s): J44.1 - Chronic obstructive pulmonary disease with (acute) exacerbation Status: Acute (2) Sinusitis Code(s): J32.9 - Chronic sinusitis, unspecified Status: Acute - Plan Hypercapnic respiratory failure/Acute COPD exacerbation continue with IV Solumedrol and neb treatment- keep on oxygen to keep O2 sat > 90%- pulmonary following. Altered mental status due to CO2 narcosis continue to monitor Acute kidney injury/failure slowly improving- continue to monitor I/O and renal function- Nephrology following. Anemia requiring transfusion H/H stable- will monitor. Colonic ileus continue with Reglan- evaluated by GI and colorectal surgery- Thrombocytopenia- HIT positive fairly stable- no active bleeding- will monitor- Hematology following. Hypertension continue Cardizem- will monitor and adjust the regimen as needed. Hypophosphatemia/ Hypomagnesemia; will replace and monitor. DVT prophylaxis with SCD's continue PT. Discharge Planning: dc to rehab when stable; not ready for discharge yet. (2) Sinusitis Qualifiers: Sinusitis location: frontal Chronicity: acute Recurrence: not specified as recurrent Qualified Code(s): J01.10 - Acute frontal sinusitis, unspecified
[2018-07-22] MEDS: dilTIAZem 60 MG Tablet PO SCH ×4 (09:29→20:41)
[2018-07-22] MEDS: MethylPREDNISolone Sod Succinate Inj 40 MG/ML Vial IV.PUSH SCH (09:30)
[2018-07-22] MEDS: Bisacodyl 10 MG Supp RECTAL SCH (09:30)
[2018-07-22] MEDS: Methylnaltrexone Inj 12 MG/0.6 ML Vial SQ SCH (09:31)
[2018-07-22 09:33] LABS: Platelet Morphology Normal (Normal)
[2018-07-22] MEDS: Potassium Phos/Sodium Phos 250 MG Tablet PO SCH ×3 (09:52→17:14)
--- NOTE | 2018-07-22 11:18 | P.PNPL ---
Subjective Interval history: 73 YOAA male with COPD, 02 dependent Follows at [facility] Admitted with AMS, COPD exac [place], denies sob Tolerates PO Physical Exam Vital signs: Vital Signs 07/21/18 11:21 07/21/18 12:00 07/21/18 12:21 Temperature 98.5 F Pulse Rate 104 H 105 H 103 H Respiratory Rate 22 30 H 45 H Blood Pressure 120/73 134/68 Pulse Oximetry 100 100 100 07/21/18 16:00 07/21/18 19:45 07/21/18 20:00 Temperature 98 F 97.1 F L Pulse Rate 99 H 104 H 106 H Respiratory Rate 22 18 Blood Pressure 138/61 128/62 Pulse Oximetry 99 07/21/18 20:10 07/21/18 23:50 07/22/18 00:00 Temperature 97.9 F Pulse Rate 107 H 115 H 105 H Respiratory Rate 20 19 Blood Pressure 133/71 Pulse Oximetry 99 98 07/22/18 04:00 07/22/18 05:00 07/22/18 06:00 Temperature 97.9 F Pulse Rate 108 H 109 H Respiratory Rate 17 Blood Pressure 132/73 Pulse Oximetry 98 98 07/22/18 08:00 07/22/18 08:08 Temperature 98.7 F Pulse Rate 110 H 110 H Respiratory Rate 20 18 Blood Pressure 125/68 Pulse Oximetry 97 Intake & Output 07/21/18 07/22/18 07/22/18 18:59 06:59 18:59 Intake Total 480 / 480 1026 / 1026 194 / 194 Output Total 500 / 500 600 / 600 Balance -20 / -20 426 / 426 194 / 194 Weight 81.6 kg Intake: IV 806 / 806 194 / 194 1/2 Normal Saline Inj 1,000 ML 806 / 806 194 / 194 @ 60 mls/hr IV.CONT .[id number] [facility] Rx#:[id number] Oral 480 / 480 220 / 220 Output: Urine 500 / 500 Urine Amount (Catheter) 600 / 600 Condom 600 / 600 Other: Date of Last Bowel Movement 07/20/18 07/22/18 # Bowel Movements 1 GENERAL: Obese AA male, NAD SKIN: Warm and dry. HEAD: Normocephalic. EYES: No scleral icterus. No injection or drainage. NECK: Supple, trachea midline. No JVD or lymphadenopathy. CARDIOVASCULAR: Regular rate and rhythm without murmurs, gallops, or rubs. RESPIRATORY: Breath sounds equal bilaterally. No accessory muscle use. GASTROINTESTINAL: Abdomen soft, non-tender, nondistended. MUSCULOSKELETAL: No cyanosis, or edema. BACK: Nontender without obvious deformity. No CVA tenderness. - Urinary Catheter Management Indwelling Urethral Catheter Cath placed during this visit: yes, but has since been removed by the nurse Reason for continuing: Acute urinary retention Insertion date: 07/14/18 Insertion time: 21:55 Removal date: 07/13/18 Removal time: 13:30 Straight Cath placed during this visit: no Condom Cath placed during this visit: no Assessment and Plan - Plan IMPRESSION: Hypercapnoic RF, Reintubated COPD exac AMS improved 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 Abdomenal distension, s/p decompression. PLAN: Aerosol nebs Supplement 02 Solumedrol 20 mg q day Monitor BS Cont Sonia RoqueOB in the chair
--- NOTE | 2018-07-22 12:51 | P.PNNP ---
Subjective Interval history: Patient is doing better he still on oxygen, he said he had bowel movement Physical Exam Vital signs: Vital Signs 07/21/18 16:00 07/21/18 19:45 07/21/18 20:00 Temperature 98 F 97.1 F L Pulse Rate 99 H 104 H 106 H Respiratory Rate 22 18 Blood Pressure 138/61 128/62 Pulse Oximetry 99 07/21/18 20:10 07/21/18 23:50 07/22/18 00:00 Temperature 97.9 F Pulse Rate 107 H 115 H 105 H Respiratory Rate 20 19 Blood Pressure 133/71 Pulse Oximetry 99 98 07/22/18 04:00 07/22/18 05:00 07/22/18 06:00 Temperature 97.9 F Pulse Rate 108 H 109 H Respiratory Rate 17 Blood Pressure 132/73 Pulse Oximetry 98 98 07/22/18 08:00 07/22/18 08:08 Temperature 98.7 F Pulse Rate 110 H 110 H Respiratory Rate 20 18 Blood Pressure 125/68 Pulse Oximetry 97 Intake & Output 07/21/18 07/22/18 07/22/18 18:59 06:59 18:59 Intake Total 480 / 480 1026 / 1026 194 / 194 Output Total 500 / 500 600 / 600 Balance -20 / -20 426 / 426 194 / 194 Weight 81.6 kg Intake: IV 806 / 806 194 / 194 1/2 Normal Saline Inj 1,000 ML 806 / 806 194 / 194 @ 60 mls/hr IV.CONT .[id number] [facility] Rx#:[id number] Oral 480 / 480 220 / 220 Output: Urine 500 / 500 Urine Amount (Catheter) 600 / 600 Condom 600 / 600 Other: Date of Last Bowel Movement 07/20/18 07/22/18 # Bowel Movements 1 Narrative: GENERAL: Well-nourished, well-developed. Alert SKIN: Warm and dry. No rash. HEENT: Normocephalic. Atraumatic. Pupils equal and round. Mucous membranes pink and moist. NECK: Trachea midline. No JVD. CARDIOVASCULAR: Regular rate and rhythm. No murmur appreciated. RESPIRATORY: Mild abdominal breathing. Decreased inspiratory effort, otherwise clear to auscultation. Breath sounds equal bilaterally. GASTROINTESTINAL: Abdomen is slightly distended normoactive bowel sounds x4. MUSCULOSKELETAL: No obvious deformities. 1+ BLE edema. NEUROLOGICAL: Awake and alert. Moving all extremities spontaneously. Normal speech. - Urinary Catheter Management Indwelling Urethral Catheter Cath placed during this visit: yes, but has since been removed by the nurse Reason for continuing: Acute urinary retention Insertion date: 07/14/18 Insertion time: 21:55 Removal date: 07/13/18 Removal time: 13:30 Straight Cath placed during this visit: no Condom Cath placed during this visit: no Assessment and Plan - Assessment (1) Acute renal failure Code(s): N17.9 - Acute kidney failure, unspecified Status: Acute (2) Anasarca Code(s): R60.1 - Generalized edema Status: Acute (3) Abdominal distention Code(s): R14.0 - Abdominal distension (gaseous) Status: Acute (4) Ileus Code(s): K56.7 - Ileus, unspecified Status: Acute - Plan Patient seen and examined, agree with above. Creatinine is normal, replace magnesium nephrology will sign off GI and Surgery following. Avoid Nephrotoxins.
--- NOTE | 2018-07-22 14:11 | P.PNONC ---
Subjective Interval history: Resting comfortably in bed in no distress. Objective Vital Signs/Intake & Output: Vital Signs 07/21/18 16:00 07/21/18 19:45 07/21/18 20:00 Temperature 98 F 97.1 F L Pulse Rate 99 H 104 H 106 H Respiratory Rate 22 18 Blood Pressure 138/61 128/62 Pulse Oximetry 99 07/21/18 20:10 07/21/18 23:50 07/22/18 00:00 Temperature 97.9 F Pulse Rate 107 H 115 H 105 H Respiratory Rate 20 19 Blood Pressure 133/71 Pulse Oximetry 99 98 07/22/18 04:00 07/22/18 05:00 07/22/18 06:00 Temperature 97.9 F Pulse Rate 108 H 109 H Respiratory Rate 17 Blood Pressure 132/73 Pulse Oximetry 98 98 07/22/18 08:00 07/22/18 08:08 Temperature 98.7 F Pulse Rate 110 H 110 H Respiratory Rate 20 18 Blood Pressure 125/68 Pulse Oximetry 97 Intake & Output 07/21/18 07/22/18 07/22/18 18:59 06:59 18:59 Intake Total 480 / 480 1026 / 1026 294 / 294 Output Total 500 / 500 600 / 600 Balance -20 / -20 426 / 426 294 / 294 Weight 81.6 kg Intake: IV 806 / 806 294 / 294 1/2 Normal Saline Inj 1,000 ML 806 / 806 194 / 194 @ 60 mls/hr IV.CONT .[id number] [facility] Rx#:[id number] Magnesium Sulfate 1 gm/D5W 100 100 / 100 ml Premix 100 ML @ 100 mls/hr IV.SIG ONCE ONE Rx#:[id number] Oral 480 / 480 220 / 220 Output: Urine 500 / 500 Urine Amount (Catheter) 600 / 600 Condom 600 / 600 Other: Date of Last Bowel Movement 07/20/18 07/22/18 # Bowel Movements 1 Result Diagrams: 07/22/18 05:45 07/22/18 05:45 Laboratory Results: Laboratory Results - last 24 hr 07/22/18 07/22/18 05:45 05:45 WBC 4.4 RBC 2.90 L Hgb 9.2 L Hct 27.4 L MCV 94.5 MCH 31.7 MCHC 33.5 RDW 14.9 Plt Count 48 L MPV 9.9 Prelim Diff (Auto) Slide review pending Neut % (Auto) 86.5 H Lymph % (Auto) 5.5 L [place] % (Auto) 7.8 Eos % (Auto) 0.1 Baso % (Auto) 0.1 Neut # (Auto) 3.8 Lymph # (Auto) 0.2 L [place] # (Auto) 0.3 Eos # (Auto) 0.0 Baso # (Auto) 0.0 WBC Differential . Diff Scan Auto diff confirmed Differential Comment . Platelet Estimate Low L Platelet Morphology Normal Sodium 140 Potassium 4.6 D Chloride 103 Carbon Dioxide 35.1 H Anion Gap 2 L BUN 38 H Creatinine 1.19 Estimated GFR 73 L Random Glucose 165 H Calcium 7.5 L Phosphorus 1.7 L Magnesium 1.0 L Total Bilirubin 0.6 AST 25 ALT 53 Alkaline Phosphatase 58 Total Protein 6.4 Albumin 4.0 Medications: Active Medications Generic Name Dose Route Start Last Admin Trade Name Freq PRN Reason Stop Dose Admin Acetaminophen 650 mg 06/20/18 02:11 07/09/18 11:20 Tylenol PO 650 mg Q4H PRN Administration Temp > 100.4 Hydrocodone Bitart/Acetaminophen 1 tab 07/09/18 01:37 07/22/18 02:51 [place] 10/325 PO 1 tab Q4H PRN Administration pain Albuterol 2.5 mg 07/02/18 14:53 07/20/18 21:12 Albuterol Neb (Prn) NEB 2.5 mg Q2HR NEB PRN Administration DYSPNEA Alvimopan 12 mg 07/19/18 14:00 07/22/18 13:13 Entereg PO 07/26/18 02:01 12 mg Q12H WOLF Administration Artificial Tears 1 drop 07/02/18 16:00 07/22/18 09:29 Tears Naturale Opth Drops EACH EYE 1 drop Q8H WOLF Administration Bisacodyl 10 mg 06/24/18 15:15 07/22/18 09:30 Dulcolax Supp RECTAL Not Given DAILY WOLF Budesonide 0.5 mg 06/26/18 20:00 07/22/18 08:07 Pulmocort Respule Neb NEB 0.5 mg Q12HR NEB WOLF Administration Diltiazem HCl 60 mg 06/30/18 09:00 07/22/18 12:15 Cardizem PO 60 mg QID WOLF Administration Duloxetine HCl 20 mg 06/23/18 18:00 06/28/18 09:09 Cymbalta PO Not Given DAILY WOLF Sodium Chloride 1,000 mls @ 60 mls/hr 07/21/18 15:30 07/22/18 07:29 1/2 Normal Saline Inj IV.CONT 60 mls/hr .[id number] WOLF Administration Methylnaltrexone [place] 12 mg 07/10/18 09:00 07/22/18 09:31 Relistor SQ Not Given DAILY WOLF Methylprednisolone Sodium Succinate 20 mg 07/18/18 09:00 07/22/18 09:30 Solumedrol Inj IV.PUSH 20 mg DAILY WOLF Administration Metoclopramide HCl 10 mg 07/09/18 22:00 07/22/18 13:13 Reglan Inj IV.PUSH 10 mg Q8HR WOLF Administration Protocol Metoprolol Tartrate 2.5 mg 06/27/18 15:08 07/01/18 01:26 Lopressor Inj IV.PUSH 2.5 mg Q6H PRN Administration HEART RATE GREATER THAN 115 Ondansetron HCl 4 mg 06/20/18 02:11 07/08/18 08:53 Zofran Inj IV.PUSH 4 mg Q6H PRN Administration NAUSEA OR VOMITING Pantoprazole Sodium 40 mg 07/12/18 14:00 07/22/18 13:14 Protonix Inj IV.PUSH 40 mg Q12H WOLF Administration Potassium Phos/Sodium Phos 250 mg 07/22/18 09:00 07/22/18 12:17 K-Phos Neutral PO 250 mg TID WOLF Administration Sodium Biphosphate/Sodium Phosphate 118 ml 07/12/18 14:00 07/13/18 09:00 Fleets Enema (Adult) RECTAL 118 ml DAILY WOLF Administration Sodium Chloride 2 ml 06/20/18 09:00 07/22/18 09:30 Ns Flush IV.FLUSH 2 ml BID WOLF Administration Sodium Chloride 2 ml 06/20/18 02:09 07/09/18 09:06 Ns Flush IV.FLUSH 2 ml PRN PRN Administration FLUSH AFTER USING IV ACCESS Sodium Chloride 0 ml 07/03/18 09:00 07/22/18 09:31 Ns Flush IV.FLUSH Not Given DAILY WOLF Objective Remarks: GENERAL: Well-nourished, well-developed patient. SKIN: Warm and dry. HEAD: Normocephalic. EYES: No scleral icterus. No injection or drainage. NECK: Supple, trachea midline. No JVD or lymphadenopathy. LYMPHATIC: No adenopathy. RESPIRATORY: No accessory muscle use. GASTROINTESTINAL: Abdomen soft, non-tender, nondistended. EXTREMITIES: No cyanosis, or edema. MUSCULOSKELETAL: Adequate muscle tone. NEUROLOGICAL: No obvious focal deficit. Awake, alert, and oriented x3. PSYCHIATRIC: Appropriate mood and affect; insight and judgment normal. Assessment/Plan - Plan 1. 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 No evidence for ITP, TMA. Mild degreee of hypofibrinogenemia. Likely secondary to illness, sepsis, abx. If does not improve would consider bone marrow biopsy.
--- NOTE | 2018-07-22 22:43 | P.PNCS ---
Subjective Interval history: afebrile, VSS UO good ?with ext cath PO ?? says he is hungry +BM Objective Result Diagrams: 07/22/18 05:45 07/22/18 05:45 Objective Remarks: PE alert Abd - rounded, +tympany, soft with resp variation, non-tender Assessment and Plan - Plan Imp: sit up -OOB supp prn try to avoid surgery, plat still 59K or lower start PO adv slowly
[2018-07-23] MEDS: Pantoprazole Inj 40 MG Vial IV.PUSH SCH ×2 (02:30→13:26)
[2018-07-23 08:25] LABS: Calcium 7.5 mg/dL (8.5-10.1); Carbon Dioxide 37.5 meq/L (21.0-32.0); Magnesium 1.2 mg/dL (1.5-2.5); Potassium 4.4 meq/L (3.5-5.1)
[2018-07-23] MEDS: Methylnaltrexone Inj 12 MG/0.6 ML Vial SQ SCH (08:36)
[2018-07-23] MEDS: Potassium Phos/Sodium Phos 250 MG Tablet PO SCH (08:36)
[2018-07-23] MEDS: dilTIAZem 60 MG Tablet PO SCH ×3 (08:36→18:52)
[2018-07-23] MEDS: MethylPREDNISolone Sod Succinate Inj 40 MG/ML Vial IV.PUSH SCH (08:37)
[2018-07-23] MEDS: Bisacodyl 10 MG Supp RECTAL SCH (08:37)
[2018-07-23] MEDS: Artificial Tears Opth Drops 15 ML Bottle EACH EYE SCH ×2 (08:41→17:07)
--- NOTE | 2018-07-23 11:13 | P.PNIM ---
Subjective Interval history: f/u; respiratory failure with mild sob. no fever. denies pain. Physical Exam Vital signs: Vital Signs 07/22/18 12:00 07/22/18 16:00 07/22/18 19:43 Temperature 98.4 F 97 F L Pulse Rate 111 H 108 H 108 H Respiratory Rate 22 20 20 Blood Pressure 136/71 168/80 H Pulse Oximetry 94 L 98 98 07/22/18 19:50 07/22/18 20:00 07/23/18 00:00 Temperature 97.7 F 97.7 F Pulse Rate 103 H 100 H 101 H Respiratory Rate 17 19 Blood Pressure 151/70 H 145/76 H Pulse Oximetry 99 98 07/23/18 03:45 07/23/18 04:00 07/23/18 08:00 Temperature 98.2 F 99.9 F H Pulse Rate 99 H 103 H 122 H Respiratory Rate 18 20 Blood Pressure 159/79 H 155/90 H Pulse Oximetry 98 97 07/23/18 08:17 Temperature Pulse Rate 123 H Respiratory Rate 20 Blood Pressure Pulse Oximetry 97 Intake & Output 07/22/18 07/23/18 07/23/18 18:59 06:59 18:59 Intake Total 1254 / 1254 1440 / 1440 Output Total 1000 / 1000 800 / 800 Balance 254 / 254 640 / 640 Intake: IV 294 / 294 1320 / 1320 1/2 Normal Saline Inj 1,000 ML 194 / 194 1320 / 1320 @ 60 mls/hr IV.CONT .[id number] [facility] Rx#:[id number] Magnesium Sulfate 1 gm/D5W 100 100 / 100 ml Premix 100 ML @ 100 mls/hr IV.SIG ONCE ONE Rx#:[id number] Oral 960 / 960 120 / 120 Output: Urine 1000 / 1000 800 / 800 Other: # Incontinent Voids 1 Date of Last Bowel Movement 07/22/18 07/22/18 # Bowel Movements 2 - Constitutional mild distress - Routine Respiratory Exam Present: diminished air movement - Routine Cardiovascular Exam Present: RRR - Routine Abdominal Exam Present: soft - Routine Extremities Exam Comments: no pedal edema. - Routine Neurological Exam Present: alert - Urinary Catheter Management Indwelling Urethral Catheter Cath placed during this visit: yes, but has since been removed by the nurse Reason for continuing: Acute urinary retention Insertion date: 07/14/18 Insertion time: 21:55 Removal date: 07/13/18 Removal time: 13:30 Straight Cath placed during this visit: no Condom Cath placed during this visit: no Results - Labs CBC & Chem 7: 07/22/18 05:45 07/23/18 06:22 Laboratory Results - last 24 hr 07/22/18 07/22/18 07/23/18 15:53 15:53 06:22 Sodium 142 Potassium 4.4 Chloride 101 Carbon Dioxide 37.5 H Anion Gap 4 L BUN 31 H Creatinine 1.17 Estimated GFR 74 L Random Glucose 187 H Calcium 7.5 L Phosphorus 3.0 D Magnesium 1.2 L Hep Bs Antibody Less than 3.1 Hep B Core IgM Ab Nonreactive Hepatitis C Antibody Nonreactive - Procedures 06/26/18endotracheal intubation by critical care Dr. Ahn 06/26/18ultrasound-guided right IJ central line by critical care Dr. Ahn 07/02/18endotracheal intubation by critical care Dr. Ahn 07/06/18colonoscopy by : Stool in cecum, large amount of water flush, stool suctioned. Marked decompression. Rectal tube left in place. Internal hemorrhoids. 07/10/18colonoscopy by Dr. Keith: Ischemic ulcer cecum. Some semisolid stool suctioned. Marked decompression. Rectal ulcer from rectal tube. Hemorrhoids internal grade 2. 07/15/18decompressive colonoscopy by Dr. Berrios Assessment and Plan - Assessment (1) Acute exacerbation of chronic obstructive pulmonary disease (COPD) Code(s): J44.1 - Chronic obstructive pulmonary disease with (acute) exacerbation Status: Acute (2) Sinusitis Code(s): J32.9 - Chronic sinusitis, unspecified Status: Acute - Plan Hypercapnic respiratory failure/Acute COPD exacerbation continue with IV Solumedrol and neb treatment- keep on oxygen to keep O2 sat > 90%- pulmonary following. Altered mental status due to CO2 narcosis continue to monitor Acute kidney injury/failure slowly improving- continue to monitor I/O and renal function- Nephrology following. Anemia requiring transfusion H/H stable- will monitor. Colonic ileus continue with Reglan- evaluated by GI . on liquid diet. colorectal surgery following. Thrombocytopenia- HIT positive fairly stable- no active bleeding- will monitor- Hematology following; considering bone marrow biopsy if no improvement. Hypertension continue Cardizem- will monitor and adjust the regimen as needed. Hypophosphatemia/ Hypomagnesemia; will replace and monitor. DVT prophylaxis with SCD's continue PT. consult palliative care. Discharge Planning: dc to rehab when stable; not ready for discharge yet. consulted palliative care. (2) Sinusitis Qualifiers: Sinusitis location: frontal Chronicity: acute Recurrence: not specified as recurrent Qualified Code(s): J01.10 - Acute frontal sinusitis, unspecified
[2018-07-23] MEDS ORDERED: Mag Sulf 1 gm/100 ml Premix 100 ML IV.SIG ONE (13:00)
--- NOTE | 2018-07-23 13:23 | P.CONPAL ---
Consult Service: Palliative Care Requesting Physician: Israel Swanson Reason for Consult: a. To assist with evaluation and management of symptoms including: pain, dyspnea b. To assist medical decision maker(s) with: better understanding of current medical conditions; weighing benefits/burdens of medical treatment options; making medical treatment decisions. Primary Care Provider: Physician [place] History of Present Illness History of Present Illness: Mr. Curry is a 73 year old male who presented to the [facility] ED on 06/22/18 for evaluation for dyspnea that had become comfort progressively worse over a 2- week time span. He was admitted with a COPD exacerbation; treated with IV Solu- Medrol, IV antibiotics and duo nebs. During the course of his hospitalization, patient underwent an endoscopy on 06/25/2018 which was normal. Patient was placed on BiPAP post procedure but was ultimately intubated on 06/26/2018 secondary to acute hypercapnic and hypoxemic respiratory failure. Patient was extubated 3 days later on 06/29/2018. Patient developed a fever of 100.2 with leukocytosis on 07/01/2018. Follow-up chest x-ray negative. CTA on 07/02/2018 revealed no evidence of pulmonary embolus; diffuse basilar airspace disease bilaterally; moderate emphysema and left ventricular hypertrophy. Patient was reintubated on 07/02/2018 due to acute hypoxic respiratory failure. A central line was placed secondary to hypotension. 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 CT abdomen/pelvis showed colonic distention most likely representing moderate adynamic ileus. However, distal sigmoid colon is decompressed and a sigmoid stricture is conceivable but considered less likely. Apparent mild proctitis. GI performed endoscopic decompression of the large bowel; significant amount of stool was noted in the descending transverse colon and part of the sigmoid consistent with stool impaction. Rectum normal. 07/03/2018: Patient having multiple loose brown stools status post fleets enema, GoLYTELY, Dulcolax suppository and Relistor. Patient remains NPO with nasogastric to LIWS, estimated 30 mL's of brown emesis in drainage container. 07/04/2018: Patient remains sedated on Diprivan, intubated and on mechanical ventilation. Given Neostigmine overnight. KUB showed colonic ileus. Patient remains afebrile.. Patient was extubated 07/07/18 07/10/2018 nephrology consulted for recommendations and management acute renal failure. ID consulted secondary to leukocytosis. Chest x-ray with mild patchy bilateral lung base opacity. Patient had been on cefepime and Flagyl since ; cefepime switched to Zosyn. General surgery was consulted on 07/11/2018 regarding concerns for possible abdominal hypertension. The patient had undergone 2 decompressive colonoscopies in recent days. Colonoscopy on 07/10/2018 did show a small superficial ischemic ulcer of the cecum according to Dr. Keith. Patient has persistent abdominal distention and kidney functioning has worsened. CT of the abdomen/pelvis showed gas and fluid distention of the colon with fairly normal small bowel. In addition to the decompressive colonoscopies, the patient has been treated with Reglan and Relistor. Nonoperative treatment was recommended. Patient underwent a colonoscopy to cecum with decompressive colonic ileus on . Over a liter of liquid stool was suctioned from the colonic lumen the ileocecal valve and cecum appeared normal. There were no vascular abnormalities noted. The abdomen was visibly softer.. In the rectum there was quite a bit of ulceration and excoriation of the distal rectal mucosa as well as along the dentate line, most likely from his previous rectal tube. No active bleeding was noted. Patient complaining of shortness of breath 1 day being transferred to the [facility] floor on 07/18/2018. An ABG showed a PCO2 of 79, therefore the patient was placed on BiPAP and transferred to the [facility]. He has since returned to the [facility] floor; tentative plan for discharge to SNF for rehab when stable. Palliative Care was consulted to assist with symptom management and to discuss with the family the benefits and burdens of his current illnesses and the options regarding future care. Patient seen and assessed in room 1422 Patient is difficult to arouse on examination. Respirations elevated at 24 BPM with accessory muscle usage. Discussed with Dr. Swanson; patient being transferred to critical care. Attempted to contact patient's family. Messages left with patient's sister (Evita Euceda) and daughter (Stephanie) with palliative care contact information. Function/Cognitive Trajectory: Patient reportedly was living alone prior to this hospitalization and had a caregiver during the day. He has had short-term placement at local SNF in the past but he does not not recall the names. Patient reportedly was driving. He was on home oxygen and nebulizer treatments. He used a cane and/or walker for ambulation. Review of Systems other (Unable to obtain due to deteriorating respiratory status) [facility] - History History Provided By: Patient - Medical / Surgical Hx Neg / Unobtainable Medical Problems Denied: Unable to Obtain - Medical History Medical History: Medical History (Last Updated 07/23/18 @ 12:57 by NILSON Fried) Anxiety Asthma COPD (chronic obstructive pulmonary disease) Chronic back pain Hyperlipidemia Hypertension - Surgical History Surgical History: Surgical History (Last Reviewed 07/21/18 @ 07:49 by Sivan Bernard) No history of previous surgery - Family History Family History: Family History (Last Reviewed 07/13/18 @ 12:08 by Brooks Hugo MD) Other Diabetes mellitus - Social History I have reviewed the patient's Social History: Yes - Tobacco History Second Hand Smoke Exposure: No Tobacco Use In Past 30 Days: No Smoking Status: Former smoker (Quit approximately 3 years ago) Tobacco Type: Cigarettes Number of Pack Years (if former smoker): 50 - Alcohol History How Often Do You Have a Drink Containing Alcohol: Never - Substance Use History Substance History: No History of Abuse - Travel History Recent Travel in the [place] Within the Last 8 Weeks: No Recent Travel Out of the Country Within the Last 8 Weeks: No - Immunization History Tetanus Immunization: Unsure Hx Influenza Vaccine This Season: No Medications and Allergies Active Medications: Active Medications Acetaminophen (Tylenol) 650 mg PO Q4H PRN PRN Reason: Temp > 100.4 Last Admin: 07/09/18 11:20 Dose: 650 mg Hydrocodone Bitart/Acetaminophen ([place] 10/325) 1 tab PO Q4H PRN PRN Reason: pain Last Admin: 07/23/18 02:40 Dose: 1 tab Albuterol (Albuterol Neb (Prn)) 2.5 mg NEB Q2HR NEB PRN PRN Reason: DYSPNEA Last Admin: 07/20/18 21:12 Dose: 2.5 mg Alvimopan (Entereg) 12 mg PO Q12H WOLF Stop: 07/26/18 02:01 Last Admin: 07/23/18 02:30 Dose: 12 mg Artificial Tears (Tears Naturale Opth Drops) 1 drop EACH EYE Q8H [facility] Last Admin: 07/23/18 08:41 Dose: 1 drop Bisacodyl (Dulcolax Supp) 10 mg RECTAL DAILY [facility] Last Admin: 07/23/18 08:37 Dose: 10 mg Budesonide (Pulmocort Respule Neb) 0.5 mg NEB Q12HR NEB WOLF Last Admin: 07/23/18 08:15 Dose: 0.5 mg Diltiazem HCl (Cardizem) 60 mg PO QID [facility] Last Admin: 07/23/18 08:36 Dose: 60 mg Duloxetine HCl (Cymbalta) 20 mg PO DAILY [facility] Last Admin: 06/28/18 09:09 Dose: Not Given Sodium Chloride (1/2 Normal Saline Inj) 1,000 mls @ 60 mls/hr IV.CONT .[id number] [facility] Last Infusion: 07/23/18 05:19 Dose: 60 mls/hr Magnesium Sulfate/Dextrose (Magnesium Sulfate 1 Gm/D5w 100 Ml Premix) 100 mls @ 100 mls/hr IV.SIG ONCE ONE Stop: 07/23/18 13:59 Methylnaltrexone Gardner (Relistor) 12 mg SQ DAILY [facility] Last Admin: 07/23/18 08:36 Dose: 12 mg Methylprednisolone Sodium Succinate (Solumedrol Inj) 20 mg IV.PUSH DAILY [facility] Last Admin: 07/23/18 08:37 Dose: 20 mg Metoclopramide HCl (Reglan Inj) 10 mg IV.PUSH Q8HR [facility]; Protocol Last Admin: 07/23/18 05:17 Dose: 10 mg Metoprolol Tartrate (Lopressor Inj) 2.5 mg IV.PUSH Q6H PRN PRN Reason: HEART RATE GREATER THAN 115 Last Admin: 07/01/18 01:26 Dose: 2.5 mg Ondansetron HCl (Zofran Inj) 4 mg IV.PUSH Q6H PRN PRN Reason: NAUSEA OR VOMITING Last Admin: 07/08/18 08:53 Dose: 4 mg Pantoprazole Sodium (Protonix Inj) 40 mg IV.PUSH Q12H [facility] Last Admin: 07/23/18 02:30 Dose: 40 mg Sodium Biphosphate/Sodium Phosphate (Fleets Enema (Adult)) 118 ml RECTAL DAILY [facility] Last Admin: 07/13/18 09:00 Dose: 118 ml Sodium Chloride (Ns Flush) 2 ml IV.FLUSH BID [facility] Last Admin: 07/23/18 08:37 Dose: 2 ml Sodium Chloride (Ns Flush) 2 ml IV.FLUSH PRN PRN PRN Reason: FLUSH AFTER USING IV ACCESS Last Admin: 07/23/18 05:17 Dose: 2 ml Sodium Chloride (Ns Flush) 0 ml IV.FLUSH DAILY [facility] Last Admin: 07/23/18 08:37 Dose: Not Given Allergies Allergy/AdvReac Type Severity Reaction Status Date / Time shellfish derived Allergy Severe Anaphylaxis Verified 10/10/17 13:48 Home Medications Medication Instructions Recorded Confirmed Type cholecalciferol (vitamin D3) 1,000 unit PO DAILY 06/19/18 06/19/18 History [Vitamin D3] hydrochlorothiazide 25 mg PO DAILY 06/19/18 06/19/18 History meloxicam 15 mg PO DAILY 06/19/18 06/19/18 History omeprazole 20 mg PO DAILY 06/19/18 06/19/18 History potassium chloride 10 meq PO DAILY 06/19/18 06/19/18 History Physical Exam Vital Signs: Vital Signs - 24 hr 07/22/18 16:00 07/22/18 19:43 07/22/18 19:50 Temperature 97 F L Pulse Rate 108 H 108 H 103 H Respiratory Rate 20 20 Blood Pressure 168/80 H Pulse Oximetry 98 98 07/22/18 20:00 07/23/18 00:00 07/23/18 03:45 Temperature 97.7 F 97.7 F Pulse Rate 100 H 101 H 99 H Respiratory Rate 17 19 Blood Pressure 151/70 H 145/76 H Pulse Oximetry 99 98 07/23/18 04:00 07/23/18 08:00 07/23/18 08:17 Temperature 98.2 F 99.9 F H Pulse Rate 103 H 122 H 123 H Respiratory Rate 18 20 20 Blood Pressure 159/79 H 155/90 H Pulse Oximetry 98 97 97 I&O: Intake & Output 07/21/18 07/22/18 07/23/18 07/24/18 06:59 06:59 06:59 06:59 Intake Total 2500 / 2500 1506 / 1506 2694 / 2694 Output Total 2300 / 2300 1100 / 1100 1800 / 1800 Balance 200 / 200 406 / 406 894 / 894 Weight 79.8 kg 81.6 kg Physical Exam: CONSTITUTIONAL/GENERAL: This is an adequately nourished patient who appears to be in some respiratory distress. TUBES/LINES/DRAINS: PIV, nasal cannula SKIN: No jaundice, rashes, or lesions. Ecchymoses on upper extremities. No wounds seen anteriorly. Skin temperature appropriate. Not diaphoretic. HEAD: Atraumatic. Normocephalic. EYES: Pupils equal and round and reactive. Extraocular motions intact. No scleral icterus. No injection or drainage. Fundi not examined. ENT: Hearing grossly normal. Nose without bleeding or purulent drainage. NECK: Trachea midline. Supple, nontender. No palpable thyroid enlargement or nodularity. CARDIOVASCULAR: Regular rate and rhythm without murmurs, gallops, or rubs. No JVD. Peripheral pulses symmetric. RESPIRATORY/CHEST: Respirations unlabored with accessory muscle usage. Tachypneic. Diminished air exchange. GASTROINTESTINAL: Abdomen firm, nontender. No guarding. Bowel sounds present. GENITOURINARY: Without palpable bladder distension. Moreno catheter in place. MUSCULOSKELETAL: Extremities without clubbing, cyanosis, or edema. No mottling or clubbing. LYMPHATICS: No palpable cervical or supraclavicular adenopathy. NEUROLOGICAL: Drowsy. Arouses briefly to verbal stimuli likely secondary to PSYCHIATRIC: No obvious anxiety/depression. no apparent hallucinations or other psychotic thought process. Diagnostic Tests Laboratory: Laboratory Results - last 72 hr 07/21/18 07/21/18 07/22/18 03:35 03:35 05:45 WBC 4.9 4.4 RBC 3.15 L 2.90 L Hgb 9.7 L 9.2 L Hct 30.0 L 27.4 L MCV 95.4 94.5 MCH 30.7 31.7 MCHC 32.2 33.5 RDW 15.0 14.9 Plt Count 46 L 48 L MPV 10.1 9.9 Prelim Diff (Auto) Slide review pending Slide review pending Neut % (Auto) 91.1 H 86.5 H Lymph % (Auto) 3.3 L 5.5 L [place] % (Auto) 5.3 7.8 Eos % (Auto) 0.2 0.1 Baso % (Auto) 0.1 0.1 Neut # (Auto) 4.5 3.8 Lymph # (Auto) 0.2 L 0.2 L [place] # (Auto) 0.3 0.3 Eos # (Auto) 0.0 0.0 Baso # (Auto) 0.0 0.0 WBC Differential . . Diff Scan Auto diff confirmed Auto diff confirmed Differential Comment . . Platelet Estimate Low L Low L Platelet Morphology Normal Normal Sodium 140 Potassium 5.4 H D Chloride 100 Carbon Dioxide 33.9 H Anion Gap 6 BUN 47 H Creatinine 1.52 H Estimated GFR 55 L Random Glucose 261 H Calcium 8.0 L Phosphorus 2.4 L Magnesium 1.3 L Total Bilirubin 0.6 AST 27 ALT 58 Alkaline Phosphatase 57 Total Protein 6.6 Albumin 4.2 Hep Bs Antibody Hep B Core IgM Ab Hepatitis C Antibody 07/22/18 07/22/18 07/22/18 05:45 15:53 15:53 WBC RBC Hgb Hct MCV MCH MCHC RDW Plt Count MPV Prelim Diff (Auto) Neut % (Auto) Lymph % (Auto) [place] % (Auto) Eos % (Auto) Baso % (Auto) Neut # (Auto) Lymph # (Auto) [place] # (Auto) Eos # (Auto) Baso # (Auto) WBC Differential Diff Scan Differential Comment Platelet Estimate Platelet Morphology Sodium 140 Potassium 4.6 D Chloride 103 Carbon Dioxide 35.1 H Anion Gap 2 L BUN 38 H Creatinine 1.19 Estimated GFR 73 L Random Glucose 165 H Calcium 7.5 L Phosphorus 1.7 L Magnesium 1.0 L Total Bilirubin 0.6 AST 25 ALT 53 Alkaline Phosphatase 58 Total Protein 6.4 Albumin 4.0 Hep Bs Antibody Less than 3.1 Hep B Core IgM Ab Nonreactive Hepatitis C Antibody Nonreactive 07/23/18 06:22 WBC RBC Hgb Hct MCV MCH MCHC RDW Plt Count MPV Prelim Diff (Auto) Neut % (Auto) Lymph % (Auto) [place] % (Auto) Eos % (Auto) Baso % (Auto) Neut # (Auto) Lymph # (Auto) [place] # (Auto) Eos # (Auto) Baso # (Auto) WBC Differential Diff Scan Differential Comment Platelet Estimate Platelet Morphology Sodium 142 Potassium 4.4 Chloride 101 Carbon Dioxide 37.5 H Anion Gap 4 L BUN 31 H Creatinine 1.17 Estimated GFR 74 L Random Glucose 187 H Calcium 7.5 L Phosphorus 3.0 D Magnesium 1.2 L Total Bilirubin AST ALT Alkaline Phosphatase Total Protein Albumin Hep Bs Antibody Hep B Core IgM Ab Hepatitis C Antibody Result Diagrams: 07/22/18 05:45 07/23/18 06:22 Microbiology: Microbiology 07/11/18 13:50 Blood - Peripheral Aerobic Blood Culture - Final No growth in 5 days 07/11/18 13:50 Blood - Peripheral Anaerobic Blood Culture - Final No growth in 5 days 07/11/18 02:48 Blood - Peripheral Aerobic Blood Culture - Final No growth in 5 days 07/11/18 02:48 Blood - Peripheral Anaerobic Blood Culture - Final No growth in 5 days 07/11/18 16:50 Clean Catch Urine Urine Culture - Final No growth in 48 hours 07/09/18 00:30 Stool Cryptosporidium Antigen - Final Negative - No Cryptosporicium antigen detected In selected cases of patients with a history of immunosuppression or foreign travel, a full ova and parasites examination may be desired. Contact the microbiology lab if full workup is indicated and subit another specimen for testing. 07/09/18 00:30 Stool Giardia Antigen (GERONIMO) - Final Negative - No Giardia Antigen detected In selected cases of patients with a history of immunosuppression or foreign travel, a full ova and parasites examination may be desired. Contact the microbiology lab if full workup is indicated and subit another specimen for testing. 07/02/18 05:41 Blood - Peripheral Aerobic Blood Culture - Final No growth in 5 days 07/02/18 05:41 Blood - Peripheral Anaerobic Blood Culture - Final No growth in 5 days 07/02/18 05:47 Blood - Peripheral Aerobic Blood Culture - Final No growth in 5 days 07/02/18 05:47 Blood - Peripheral Anaerobic Blood Culture - Final No growth in 5 days 07/02/18 22:00 Sputum - Endotracheal Gram Stain - Final 07/02/18 22:00 Sputum - Endotracheal Sputum Culture - Final Heavy growth normal respiratory justyn 06/26/18 10:10 Sputum - Endotracheal Gram Stain - Final 06/26/18 10:10 Sputum - Endotracheal Sputum Culture - Final Light growth normal respiratory justyn Imaging: Abdomen Ultrasound 06/21/18 00:00 CONCLUSION: 1. No ascites is identified within the abdomen. Abdomen/Bladder Ultrasound 06/28/18 00:00 CONCLUSION: 1. Echogenic kidneys characteristic of medical renal disease. No hydronephrosis. Bladder decompressed by Moreno Chest CTA 07/02/18 00:00 CONCLUSION: 1. No pulmonary embolus. 2. Diffuse but basilar predominant bilateral airspace disease. 3. Endotracheal and endobronchial secretions are demonstrated. 4. Moderate emphysema. 5. Left ventricular hypertrophy. Abdomen/Pelvis CT 07/10/18 08:31 CONCLUSION: 1. There is gas and fluid distending the colon. The patient has a rectal tube in place however the rectal tube is kinked back on itself and occluded. The overall size of the colon has mildly increased when compared to previous exam. The small bowel is normal in caliber. 2. Interval development of a small left basilar effusion and atelectasis. Venous Doppler Study 07/15/18 00:00 CONCLUSION: 1. Limited suboptimal examination. 2. Nonocclusive thrombus in the jugular vein. Abdomen X-Ray 07/19/18 14:09 CONCLUSION: Negative examination. Chest X-Ray 07/23/18 00:00 CONCLUSION: Negative examination. Procedures: 06/25/2018: EGD 06/26/2018: Endotracheal intubation 06/26/2018: Right IJ Central line placement 06/29/2018: Extubation 07/02/2018: Reintubation 07/02/2018: Left IJ central line placement 07/02/2018: Colonoscopy 07/06/2018: Colonoscopy 07/07/2018: Extubation 07/10/2018: Colonoscopy Patient/Family Conference Issues Discussed: * Palliative care role, purpose, approach * Additional medical, psychosocial, and spiritual history * Patients general health, functional status, and cognitive changes in the months leading up to the current hospitalization * Patient/family understanding of the current medical problems * Patient/family understanding of prognosis * Patients goals of care as best understood from advance directives and/or conversations and/or values * Current medical treatment options and benefits/burdens of those options * Likely scenarios comparing ongoing aggressive care with a transition to comfort measures only * Questions answered to the best of my ability * Palliative care contact information provided Assessment and Plan - Disease Oriented Problem List (1) Acute exacerbation of chronic obstructive pulmonary disease (COPD) (2) Acute renal failure (3) Abdominal distention (4) Ileus (5) Sinusitis (6) Thrombocytopenia (7) Acute kidney injury (8) Hypercapnic respiratory failure Pertinent Non-Medical Issues: Psychosocial: Patient is a . He is a . Spiritual: Zoroastrianism mark Legal: Per [place] statutes, in the absence of written advanced directives healthcare proxy decision making falls to the patient's adult children Ethical issues impacting care: No known ethical issues impacting care at this time Important Contacts: Stephanie Craig, daughter: [phone] Felicitas Hood, other relationship: [phone] Sara Maldonado, sister: [phone] Prognosis: Patient is an elderly male with severe COPD who was admitted with a COPD exacerbation. He has been in and out of the intensive care unit; respiratory status is borderline. Patient remains high risk for decompensation ongoing decline. Code Status: Full Code Plan: * FULL CODE * Per review of notes, patient is a . He appears to have at least one daughter, Stephanie. He also has a sister (Evita Euceda) who states she is the patient's POA. Will need to request copies of documents designating the patient' s sister as the [facility] decision-maker. * Discussed patient with CM (Tory) as well as Dr. Swanson * On exam, patient was drowsy with some respiratory distress. Discussed with Dr. Swanson. Will check ABG and CXR today and transferred to ICU; low threshold for dyer helper reconsult. * Palliative care attempted to contact patient's sister (Evita Euceda) and daughter (Stephanie). Messages were left for both with palliative care contact information. * Symptom management: Pain: Multifactoral. Possible contributing factors include history of chronic back pain, abdominal distention, colonic ileus, infection, invasive procedures. [place] 10/325 is available q4 hours PRN. Patient has has 2 doses in the past 24 hours. Dyspnea: Patient appears dyspneic on exam. RR 24 with accessory muscle use. Will check ABG and CXR today. Patient being transferred to ICU; low threshold for dyer helper reconsult. * Palliative care will continue to follow this patient throughout his hospitalization to establish trust, assist with symptom management and clarification of medical treatment goals. . Appreciation Thank you for the opportunity to participate in the care of Fan Curry. Attestation Attestation: To help prompt me to consider important information that might be impacting today's encounter and assessment, information from prior notes written by myself or my colleagues may have been "brought forward" into today's note. My signature on this note, however, is an attestation that I personally performed the exam, history, and/or decision-making noted today, and, unless otherwise indicated, the interactions with patient, family, and staff as well as the review of records all occurred today. I also attest that the listed assessment and stated plan reflect my best clinical judgment today based on the combination of historical information, prior notes, and today's exam/ interactions. When time spent is documented, it refers only to time spent today by the signer, or if indicated, combined time spent today by collaborating physician/nurse practitioner.
--- NOTE | 2018-07-23 14:15 | P.PNPL ---
Subjective Interval history: 73 YOAA male with COPD, 02 dependent Follows at [facility] Admitted with AMS, COPD exac On NC, denies sob Tolerates PO Mild sob, no distress Physical Exam Vital signs: Vital Signs 07/22/18 16:00 07/22/18 19:43 07/22/18 19:50 Temperature 97 F L Pulse Rate 108 H 108 H 103 H Respiratory Rate 20 20 Blood Pressure 168/80 H Pulse Oximetry 98 98 07/22/18 20:00 07/23/18 00:00 07/23/18 03:45 Temperature 97.7 F 97.7 F Pulse Rate 100 H 101 H 99 H Respiratory Rate 17 19 Blood Pressure 151/70 H 145/76 H Pulse Oximetry 99 98 07/23/18 04:00 07/23/18 08:00 07/23/18 08:17 Temperature 98.2 F 99.9 F H Pulse Rate 103 H 122 H 123 H Respiratory Rate 18 20 20 Blood Pressure 159/79 H 155/90 H Pulse Oximetry 98 97 97 07/23/18 12:00 Temperature 98.1 F Pulse Rate 114 H Respiratory Rate 22 Blood Pressure 144/67 H Pulse Oximetry 96 Intake & Output 07/22/18 07/23/18 07/23/18 18:59 06:59 18:59 Intake Total 1254 / 1254 1440 / 1440 Output Total 1000 / 1000 800 / 800 Balance 254 / 254 640 / 640 Intake: IV 294 / 294 1320 / 1320 1/2 Normal Saline Inj 1,000 ML 194 / 194 1320 / 1320 @ 60 mls/hr IV.CONT .[id number] [facility] Rx#:[id number] Magnesium Sulfate 1 gm/D5W 100 100 / 100 ml Premix 100 ML @ 100 mls/hr IV.SIG ONCE ONE Rx#:[id number] Oral 960 / 960 120 / 120 Output: Urine 1000 / 1000 800 / 800 Other: # Incontinent Voids 1 Date of Last Bowel Movement 07/22/18 07/22/18 # Bowel Movements 2 GENERAL: Obese AA male, NAD SKIN: Warm and dry. HEAD: Normocephalic. EYES: No scleral icterus. No injection or drainage. NECK: Supple, trachea midline. No JVD or lymphadenopathy. CARDIOVASCULAR: Regular rate and rhythm without murmurs, gallops, or rubs. RESPIRATORY: Breath sounds equal bilaterally. No accessory muscle use. GASTROINTESTINAL: Abdomen soft, non-tender, distended. MUSCULOSKELETAL: No cyanosis, or edema. BACK: Nontender without obvious deformity. No CVA tenderness. - Urinary Catheter Management Indwelling Urethral Catheter Cath placed during this visit: yes, but has since been removed by the nurse Reason for continuing: Acute urinary retention Insertion date: 07/14/18 Insertion time: 21:55 Removal date: 07/13/18 Removal time: 13:30 Straight Cath placed during this visit: no Condom Cath placed during this visit: no Assessment and Plan - Plan IMPRESSION: Hypercapnoic RF, Reintubated COPD exac AMS improved 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 Abdomenal distension, s/p decompression. PLAN: Aerosol nebs Supplement 02 Solumedrol 20 mg q day Monitor BS Reglan 10 mg q 6 hrs IV OOB in the chair
--- NOTE | 2018-07-23 14:25 | P.PNADD ---
Addendum to Inpatient Note Reason for Addendum: Additional Documentation (patient was seen again; now is more drowsy and with some respiratory distress. will check ABG and CXR today and transfer to ICU; d/w shirt turner and care was transferred to shirt turner- palliative care evaluation pending.)
[2018-07-23 14:47] LABS: ABG Base Excess 9.2 mmol/L (-2-2); ABG PCO2 104 mmHg (38-42); ABG PO2 113 mmHg (61-120)
--- NOTE | 2018-07-23 14:48 | XR ---
EXAM DATE: 07/23/2018 2:44 PM EST AGE/SEX: 73 years / Male INDICATIONS: Short of breath. CLINICAL DATA: This is the patient's subsequent encounter. Patient reports that signs and symptoms h ave been present for 2 weeks and indicates a pain score of Nonresponsive. MEDICAL/SURGICAL HISTORY: Hypertension. Chronic obstructive pulmonary disease. None. COMPARISON: [place], CHEST 1V SINGLE AP, 07/19/2018. . FINDINGS: A single AP view of the chest demonstrates the lungs to be symmetrically aerated without evidence of mass, infiltrate or effusion. The cardiomediastinal contours are unremarkable. Osseous structures a re intact. CONCLUSION: Negative examination. Electronically signed by: Brandon Samuel MD 07/23/2018 2:46 PM EST
--- NOTE | 2018-07-23 16:31 | P.PNCC ---
Subjective Subjective Remarks/Hospital Course: Mr. Curry is a 73-year-old -[place] male with past medical history significant for COPD on 3 L nasal cannula, hypertension, hyperlipidemia and anxiety who was admitted to the hospitalist service on 06/19/2018 for worsening shortness of breath due to COPD exacerbation. He was treated with IV Solu- Medrol, IV antibiotics, breathing treatments gradually improved. Patient was also complaining about dyspepsia and underwent EGD by GI yesterday. Per report the EGD was normal but patient developed worsening shortness of breath and COPD exacerbation postprocedure, possibly from aspiration after sedated. Two ABGs done yesterday showed hypercapnic respiratory failure second 1 was on BiPAP and this was improved with pH 7.3 with PCO2 of 74. Patient remained on BiPAP overnight however was noticed to be lethargic today a.m., stat ABG showed pH of 7.21 PCO2 110 PO2 88 while on BiPAP. Patient was lethargic intermittently dozing off due to CO2 narcosis. Critical care medicine was consulted and I immediately evaluated the patient. Patient had obviously failed BiPAP I proceeded with endotracheal intubation placed on mechanical ventilation. Postintubation I have ordered single dose of Solu-Medrol 125 mg x1 continue Solu -Medrol 60 every 8, discontinue ceftriaxone and start cefepime 2 g IV every 8 hours continue azithromycin. Add budesonide inhaled, placed on scheduled DuoNeb every 4 hours and as needed. 06/27: Patient was intubated yesterday for severe hypercapnic respiratory failure. Currently remains intubated sedated and intubated remains diminished bilaterally. Heavily sedated for ventilator synchrony 06/28: Urine output significantly improved with fluid resuscitation. Creat down trending now 2 from 2.3, UO >3.3 L. Remains intubated sedated. Will initiate daily sedation vacation and CPAP trials 06/29: More awake today tolerating CPAP trials intermittently follows commands but gets agitated/frustrated fast. Urine output remains excellent creatinine 1.4. However sodium increasing 158 today. Night salon supervisor had changed fluid to D5 W for free water replacement. Due to hypoglycemia will change to quarter normal saline at 150 mL/h repeat CMP in the afternoon 06/30 Patient was extubated yesterday. Awake 07/01 Patient is lying in bed in NAD. T: 100.5 07/02: Intubated early this morning due to acute hypoxic respiratory failure. Central line placed due to hypotension. Plan for GI perform endoscopic decompression of this large bowel today. Arousable and does follow commands. Placed on argatroban 07/03: Currently, intubated with borderline blood pressure. Central line placed yesterday due to hypotension. Did not move bowels despite 1 L of fluid from colonoscopy yesterday and multiple laxatives provided. See orders for additional laxatives today. Might need neostigmine. 07/04 Patient remains intubated and sedated with Diprivan. Given Neostigmine last night. KUB this morning showed colonic ileus. Afebrile. On Argatroban. 07/05 No events overnight, sedated with Diprivan and intubated. Off Argatroban. 07/06 Patient remains intubated and sedated. Afebrile. 07/07 Patient remains intubated, s/p decompressive colonoscopy yesterday. Awake. 07/08 Patient s/p extubation yesterday. Awake and alert. 07/09 Patient is awake, alert lying in bed in NAD. Afebrile. 07/10 Patient is awake and alert, Afebrile. 07/11 Patient s/p decompressive colonoscopy yesterday. Afebrile. On Lasix drip.( UOP: 2800ml overnight). Cr: 3.0 from 2.25. 07/12 Patient is awake, alert given Neostigmine overnight. NGT to LIWS, off Lasix drip. 07/13: Resting comfortably in bed in no acute distress. 3 bowel movements documented. Remains n.p.o. Bladder pressures around 6. Potassium being replaced. Remains anemic around 7. 07/14 Patient is lying in bed in NAD. Afebrile. 07/15 No events overnight. Afebrile. 07/16: Resting in bed mild distress. Abdomen remains distended. Hemoglobin has dropped to 6.2 2 units of PRBC ordered. Patient underwent decompressive colonoscopy by Dr. Berrios for colonic ileus 07/17: No significant overnight events, patient states that he wants to get out of bed to a chair as he is having rectal discomfort. 07/18: Patient reportedly had a BM after digital rectal exam yesterday, states that he's been passing flatus "every now and then" overnight. No plans for OR or sigmoidoscopy as per colorectal service, OK to transfer out of [facility]. 07/19: Patient transferred to same day surgery center yesterday, complained of shortness of breath again today. An ABG showed a pCO2 of 79 so he was placed on bipap and transferred to [facility]. Most recent ABG shows pCO2 of 66, KUB still has abdominal distension but appears to be improved when compared to KUB from 07/15. Patient has reportedly been having bowel movements and passing flatus overnight. 07/20: No dramatic improvement in abdominal distention however abdomen soft. The patient was able to breathe comfortably overnight and remained alert. This morning the BiPAP mask was removed for half an hour and the patient did well without evidence of CO2 retention or somnolence. Reconsult note 07/23: The patient was a h from the [facility] floor. Patient was noted to be somnolent, had difficulty breathing. Stat ABG was performed revealing a PCO2 of 113. The patient was placed on BiPAP and transferred to [facility]. Currently remains on CPAP respiratory rate is 25 , 16/5 with an FiO2 35%. Objective Vital Signs / I&O: Vital Signs 07/22/18 19:43 07/22/18 19:50 07/22/18 20:00 Temperature 97.7 F Pulse Rate 108 H 103 H 100 H Respiratory Rate 20 17 Blood Pressure 151/70 H Pulse Oximetry 98 99 07/23/18 00:00 07/23/18 03:45 07/23/18 04:00 Temperature 97.7 F 98.2 F Pulse Rate 101 H 99 H 103 H Respiratory Rate 18 Blood Pressure 145/76 H 159/79 H Pulse Oximetry 98 98 07/23/18 08:00 07/23/18 08:17 07/23/18 12:00 Temperature 99.9 F H 98.1 F Pulse Rate 122 H 123 H 114 H Respiratory Rate 20 20 22 Blood Pressure 155/90 H 144/67 H Pulse Oximetry 97 97 96 Intake & Output 07/22/18 07/23/18 07/23/18 18:59 06:59 18:59 Intake Total 1254 / 1254 1440 / 1440 100 / 100 Output Total 1000 / 1000 800 / 800 Balance 254 / 254 640 / 640 100 / 100 Intake: IV 294 / 294 1320 / 1320 100 / 100 1/2 Normal Saline Inj 1,000 ML 194 / 194 1320 / 1320 @ 60 mls/hr IV.CONT .[id number] [facility] Rx#:[id number] Magnesium Sulfate 1 gm/D5W 100 100 / 100 100 / 100 ml Premix 100 ML @ 100 mls/hr IV.SIG ONCE ONE Rx#:[id number] Oral 960 / 960 120 / 120 Output: Urine 1000 / 1000 800 / 800 Other: # Incontinent Voids 1 Date of Last Bowel Movement 07/22/18 07/22/18 # Bowel Movements 2 Result Diagrams: 07/22/18 05:45 07/23/18 06:22 Imaging: Laboratory Results CBC w Diff Cancelled 07/12/18 10:09 WBC 4.4 th/mm3 (4.0-11.0) 07/22/18 05:45 Corrected WBC Cancelled 07/12/18 10:09 RBC 2.90 mil/mm3 (4.50-5.90) L 07/22/18 05:45 Hgb 9.2 gm/dL (13.0-17.0) L 07/22/18 05:45 Hct 27.4 % (39.0-51.0) L 07/22/18 05:45 MCV 94.5 fL (80.0-100.0) 07/22/18 05:45 MCH 31.7 pg (27.0-34.0) 07/22/18 05:45 MCHC 33.5 % (32.0-36.0) 07/22/18 05:45 RDW 14.9 % (11.6-17.2) 07/22/18 05:45 Plt Count 48 th/mm3 (150-450) L 07/22/18 05:45 MPV 9.9 fL (7.0-11.0) 07/22/18 05:45 Prelim Diff (Auto) Slide review pending 07/22/18 05:45 Immature Gran % (Auto) Cancelled 07/12/18 10:09 Neut % (Auto) 86.5 % (16.0-70.0) H 07/22/18 05:45 Lymph % (Auto) 5.5 % (9.0-44.0) L 07/22/18 05:45 [place] % (Auto) 7.8 % (0.0-8.0) 07/22/18 05:45 Eos % (Auto) 0.1 % (0.0-4.0) 07/22/18 05:45 Baso % (Auto) 0.1 % (0.0-2.0) 07/22/18 05:45 Immature Gran # (Auto) Cancelled 07/12/18 10:09 Neut # (Auto) 3.8 th/mm3 (1.8-7.7) 07/22/18 05:45 Lymph # (Auto) 0.2 th/mm3 (1.0-4.8) L 07/22/18 05:45 [place] # (Auto) 0.3 th/mm3 (0.0-0.9) 07/22/18 05:45 Eos # (Auto) 0.0 th/mm3 (0.0-0.4) 07/22/18 05:45 Baso # (Auto) 0.0 th/mm3 (0.0-0.2) 07/22/18 05:45 WBC Differential . 07/22/18 05:45 Diff Scan Auto diff confirmed 07/22/18 05:45 Seg Neuts % (Manual) 86 % (16-70) H 07/09/18 09:44 Band Neuts % (Manual) 5 % (0-6) 07/09/18 09:44 Lymphocytes % (Manual) 4 % (9-44) L 07/09/18 09:44 Atypical Lymphs % (Man) Cancelled 07/12/18 10:09 Monocytes % (Manual) 4 % (0-8) 07/09/18 09:44 Eosinophils % (Manual) Cancelled 07/12/18 10:09 Basophils % (Manual) Cancelled 07/12/18 10:09 Metamyelocytes % (Man) 1 % (0-1) 06/26/18 04:04 Myelocytes % (Man) 1 % (0-0) H 07/09/18 09:44 Promyelocytes % (Man) Cancelled 07/12/18 10:09 Blast Cells % (Manual) Cancelled 07/12/18 10:09 Plasma Cell % (Manual) Cancelled 07/12/18 10:09 Other Cells % Cancelled 07/12/18 10:09 Abs Neuts (Manual) 23.8 th/mm3 (1.8-7.7) H 07/09/18 09:44 Nucleated RBCs/100 WBC 2 /100 WBC (0-0) H 07/07/18 04:38 Differential Comment . 07/22/18 05:45 Hypersegmented Neuts Cancelled 07/12/18 10:09 Smudge Cells Cancelled 07/12/18 10:09 Toxic Granulation Cancelled 07/12/18 10:09 Toxic Vacuolation Cancelled 07/12/18 10:09 Dohle Bodies Cancelled 07/12/18 10:09 Platelet Estimate Low (Normal) L 07/22/18 05:45 Platelet Morphology Normal (Normal) 07/22/18 05:45 RBC Morphology Normal (Normal) 07/06/18 03:29 Dimorphic RBCs Cancelled 07/12/18 10:09 Polychromasia Cancelled 07/12/18 10:09 Basophilic Stippling Moderate (None) H 06/26/18 04:04 Spherocytes Cancelled 07/12/18 10:09 Pappenheimer Bodies Cancelled 07/12/18 10:09 Sickle Cells Cancelled 07/12/18 10:09 Target Cells Cancelled 07/12/18 10:09 Tear Drop Cells Cancelled 07/12/18 10:09 Ovalocytes Cancelled 07/12/18 10:09 Stomatocytes Cancelled 07/12/18 10:09 Helmet Cells Cancelled 07/12/18 10:09 [place] Bodies Cancelled 07/12/18 10:09 [place] Cells Cancelled 07/12/18 10:09 Acanthocytes (Spur) Cancelled 07/12/18 10:09 Rouleaux Cancelled 07/12/18 10:09 Keratocytes Cancelled 07/12/18 10:09 Smear Path Review 07/19/18 05:56 Haptoglobin 94 mg/dL (30-200) 07/19/18 15:18 Hematology Comments 07/09/18 09:44 PT 12.0 sec (9.8-11.6) H 07/19/18 15:18 INR 1.2 Ratio 07/19/18 15:18 APTT 31.1 sec (23.4-31.7) 07/19/18 15:18 Fibrinogen 154 mg/dL (227-377) L 07/19/18 15:18 Puncture Site Left radial 07/23/18 14:10 Patient Temperature 98.6 07/23/18 14:10 O2 Saturation 95 % (90-100) 07/23/18 14:10 ABG pH 7.18 (7.380-7.420) L* 07/23/18 14:10 ABG pCO2 104 mmHg (38-42) H* 07/23/18 14:10 ABG pO2 113 mmHg (61-120) 07/23/18 14:10 ABG HCO3 38 mmol/L (22-26) H 07/23/18 14:10 ABG O2 Content 11.9 Vol % (12.0-20.0) L 07/23/18 14:10 ABG Base Excess 9.2 mmol/L (-2-2) H 07/23/18 14:10 ABG Methemoglobin 1.3 % (0-2) 07/23/18 14:10 Raymon Test Present 07/23/18 14:10 Hemoglobin 8.7 G/DL (12.0-16.0) L 07/23/18 14:10 Carboxyhemoglobin 1.8 % (0-4) 07/23/18 14:10 O2 Delivery Device Nasal cannula 07/23/18 14:10 Liter Flow 2.00 L/M 07/23/18 14:10 Vent Setting Ipap 18,epap 5 07/19/18 14:44 Inspired O2 28 % 07/23/18 14:10 Critical Value Yes 07/23/18 14:10 Sodium 142 meq/L (136-145) 07/23/18 06:22 Potassium 4.4 meq/L (3.5-5.1) 07/23/18 06:22 Chloride 101 meq/L (98-107) 07/23/18 06:22 Carbon Dioxide 37.5 meq/L (21.0-32.0) H 07/23/18 06:22 Anion Gap 4 meq/L (5-15) L 07/23/18 06:22 BUN 31 mg/dL (7-18) H 07/23/18 06:22 Creatinine 1.17 mg/dL (0.60-1.30) 07/23/18 06:22 Estimated GFR 74 mL/min (>89) L 07/23/18 06:22 POC Glucose 222 mg/dl (68-110) H 07/20/18 00:01 Random Glucose 187 mg/dL (74-106) H 07/23/18 06:22 Lactic Acid 0.9 mmol/L (0.4-2.0) 07/14/18 11:05 Calcium 7.5 mg/dL (8.5-10.1) L 07/23/18 06:22 Prot Corrected Calcium 7.4 mg/dL (8.5-10.1) L* 07/17/18 02:58 Phosphorus 3.0 mg/dL (2.5-4.9) D 07/23/18 06:22 Magnesium 1.2 mg/dL (1.5-2.5) L 07/23/18 06:22 Total Bilirubin 0.6 mg/dL (0.2-1.0) 07/22/18 05:45 AST 25 U/L (15-37) 07/22/18 05:45 ALT 53 U/L (12-78) 07/22/18 05:45 Alkaline Phosphatase 58 U/L (45-117) 07/22/18 05:45 Ammonia Less than 10 mcmol/L (11-32) L 07/03/18 04:30 Lactate Dehydrogenase 436 U/L (87-241) H 07/15/18 12:25 Total Creatine Kinase 205 U/L (39-308) 06/19/18 20:56 CK-MB (CK-2) 2.3 ng/mL (0.5-3.6) 06/19/18 20:56 Troponin I Less than 0.02 ng/mL (0.02-0.05) L 07/03/18 04:30 B-Natriuretic Peptide 32 pg/mL (0-100) 06/23/18 13:32 Total Protein 6.4 g/dL (6.4-8.2) 07/22/18 05:45 Albumin 4.0 g/dL (3.4-5.0) 07/22/18 05:45 Serotonin Release Assay Negative (NEGATIVE) 07/02/18 05:42 Vitamin B12 855 pg/mL (193-986) 07/02/18 13:27 Folate 12.1 ng/mL (3.1-17.5) 07/02/18 13:27 Procalcitonin 0.67 ng/mL (0.00-0.08) H 07/11/18 02:48 Urine Color Yellow (Yellw/Straw) 07/14/18 21:55 Urine Clarity Hazy (Clear) H 07/14/18 21:55 Urine pH 5.0 (5.0-8.5) 07/14/18 21:55 Ur Specific [place] 1.009 (1.002-1.035) 07/14/18 21:55 Urine Protein 30 mg/dL (Neg-Trace) H 07/14/18 21:55 Urine Glucose (UA) Negative mg/dL (Negative) 07/14/18 21:55 Urine Ketones Trace mg/dL (Negative) H 07/14/18 21:55 Urine Occult Blood Large (Negative) H 07/14/18 21:55 Urine Nitrate Negative (Negative) 07/14/18 21:55 Urine Bilirubin Negative (Negative) 07/14/18 21:55 Urine Urobilinogen Less than 2 mg/dL (Less than 2) 07/14/18 21:55 Ur Leukocyte Esterase Trace (Negative) H 07/14/18 21:55 Urine RBC 4 /hpf (0-3) H 07/14/18 21:55 Urine WBC 3 /hpf (0-5) 07/14/18 21:55 Amorphous Sediment Few /hpf (None) H 07/14/18 21:55 Hyaline Casts 1 /lpf (0-3) 06/27/18 17:00 Urine Mucus Few /lpf (Occasional) H 07/11/18 16:50 Micro UA Comment Cath-culture not ind 07/14/18 21:55 Ur Microscopic Review Not Reportable 07/14/18 21:55 Urine Culture Comments Cath-cult not ind 07/14/18 21:55 Urine Eosinophils None seen /HPF (None Seen) 07/10/18 20:50 Ur Random Creatinine 33 mg/dL (27-300) 07/13/18 13:30 Ur Random Sodium 78 meq/L 07/13/18 13:30 Nasal Screen MRSA (PCR) Not detected (Negative) 06/26/18 12:40 Stl C.difficile DNA Amp Negative (Negative) 07/09/18 00:30 St C. diff Tox Epid 027 Negative (Negative) 07/09/18 00:30 Heparin Dep Plt Ab OD 4.309 U/mL (0.000-1.0) H 06/30/18 11:30 Hep-Induced Plt Ab [place] Positive (Negative) H 06/30/18 11:30 ANNMARIE UFH Low Dose 0.1 3 %release (2.1-21.7) 07/02/18 05:42 ANNMARIE UFH Low Dose 0.5 2 %release (2.1-21.7) 07/02/18 05:42 ANNMARIE UFH High Dose 100 3 %release (2.1-21.7) 07/02/18 05:42 Hep Bs Antibody Less than 3.1 mIU/mL 07/22/18 15:53 Hep B Core IgM Ab Nonreactive (Nonreactive) 07/22/18 15:53 Hepatitis C Antibody Nonreactive (Nonreactive) 07/22/18 15:53 Blood Type O Positive 07/16/18 11:05 Antibody Screen Negative 07/16/18 11:05 MTS Gel Crossmatch See Detail 07/16/18 11:05 Impressions Abdomen Ultrasound 06/21/18 00:00 CONCLUSION: 1. No ascites is identified within the abdomen. Abdomen/Bladder Ultrasound 06/28/18 00:00 CONCLUSION: 1. Echogenic kidneys characteristic of medical renal disease. No hydronephrosis. Bladder decompressed by [place] Chest CTA 07/02/18 00:00 CONCLUSION: 1. No pulmonary embolus. 2. Diffuse but basilar predominant bilateral airspace disease. 3. Endotracheal and endobronchial secretions are demonstrated. 4. Moderate emphysema. 5. Left ventricular hypertrophy. Abdomen/Pelvis CT 07/10/18 08:31 CONCLUSION: 1. There is gas and fluid distending the colon. The patient has a rectal tube in place however the rectal tube is kinked back on itself and occluded. The overall size of the colon has mildly increased when compared to previous exam. The small bowel is normal in caliber. 2. Interval development of a small left basilar effusion and atelectasis. Venous Doppler Study 07/15/18 00:00 CONCLUSION: 1. Limited suboptimal examination. 2. Nonocclusive thrombus in the jugular vein. Abdomen X-Ray 07/19/18 14:09 CONCLUSION: Negative examination. Chest X-Ray 07/23/18 00:00 CONCLUSION: Negative examination. Objective Remarks: GENERAL: Elderly male sitting in bed, nasal cannula, comfortable and calm. SKIN: Warm and dry HEAD: Normocephalic. EYES: PERRL NECK: Supple, trachea midline. Airway widely patent, no obstructive noises CARDIOVASCULAR: Regular rhythm in the high 70s. RESPIRATORY: B/l equal air entry, comfortable respiratory pattern, speaking in complete sentences GASTROINTESTINAL: Abdomen distended and firm, non-tender, no guarding, bowel sounds present MUSCULOSKELETAL: 1+ bilateral upper/ lower extremity edema, warm and well- perfused Neuro: Awake and alert, speaking in complete sentences, no neuro deficits Assessment and Plan - Assessment and Plan Plan: ASSESSMENT: Hypercapnic respiratory failure Acute COPD exacerbation Respiratory acidosis Altered mental status due to CO2 narcosis Acute kidney injury/failure Anemia requiring transfusion Colonic ileus Hypertension Leukocytosis Hyperglycemia COPD Hypernatremia Hypopotassemia Normocytic anemia Thrombocytopenia Hyperphosphatemia PLAN: NEURO: -Monitor neuro status, avoid sedatives RESP: -Extubated 06/29. Reintubated 07/02 extubated again 07/07 -DuoNeb every 4 hours scheduled and butyryl aerosols every 2 hours as needed -Wean methylprednisolone succinate from 40 mg to 20 mg daily -Inhaled budesonide -CXR-negative -Maintain BiPAP -ABG 7.1 8/104/113/38/9.2 CV: - Monitor HR and BP keep MAP>65mmHg -Continue with BP meds, Cardizem 60mg Q6 GI: -Decompressive colonoscopy by Dr. Berrios performed on 07/15/2018. -KUB 07/14: Ileus. Get follow-up KUB stat -KUB 07/13: Stable nonobstructive colonic distention. Given Neostigmine 07/11. -NGT to gravity -s/p repeat decompressive colonoscopy 07/10 and 07/15 -Continue Protonix secondary to thrombocytopenia, avoid famotidine -On docusate sodium/senna 1 tablet twice daily, lactulose 30 cc 4 times daily -Maintain n.p.o. status for now patient is at risk for intubation FEN/: -Monitor renal function, I/O's, avoid nephrotoxins -Renal function continues to improve- Cr: 1.19 -Begin D5 09/03 NSS @ 30cc/hr -Renal- Dr. Figueroa ID: -Off abx monitor for signs of infections (Fever, WBC) WBC stable -BC and urine cx from 07/11- NG in 5 days -07/02 BC: NGTS, sputum cx 07/02:normal resp justyn -ID is following- Dr. Brown PRN HEME: -Monitor CBC, coags, Hep PLT is positive. ANNMARIE negative. Hematology is following. Off argatroban drip -s/p 2U PRBCs on 07/16, Hg this morning is stable -Stable thrombocytopenia-avoid medications that precipitate thrombocytopenia -Patient encouraged to ambulate with PT ENDO: -Electrolyte replacement per protocol -Sliding scale insulin medium scale PROPH: -Bilateral lower extremity SCDs. PPI -Doppler US LE negative DVT 07/02 LINES: -Utilize peripheral IVs Overall impression: Elderly man with severe emphysema and quite marginal respiratory status. His somnolence has resolved and he is moving air well. Continue BiPAP noninvasive ventilation at night. Level 3
[2018-07-23] MEDS: Sodium Chloride 0.45 % Inj 1,000 ML IV.CONT SCH ×2 (16:40→18:52)
--- NOTE | 2018-07-23 17:04 | P.DIET ---
Nutritional Evaluation Type of nutrition evaluation: follow-up Nutrition consult regarding: Tube Feeding Subjective Subjective Comments: Pt is currently not on a diet at time of this entry Objective - Diagnosis SOB, COPD Exacerbation - Objective % IBW: 126 Body Weight Used for Calculations: IBW (67.3kg(148 lb)) Energy Needs - Lower Range (kCal/kg): 23 Energy Needs - Upper Range (kCal/kg): 28 Lower Limit kCal/kg (kCals): 1,548 Upper Limit kCal/kg (kCals): 1,884 Lower Limit Protein Factor (Grams per Kg): 1.2 Upper Limit Protein Factor (Grams per Kg): 1.4 Lower Protein Needs (Protein): 81 Upper Protein Needs (Protein): 94 Dietitian Reviewed in Medical Record: Curent medications, Intake & Output, Labs , Medical history Diet Order: no order Objective Comments: PMH includes: COPD, HTN, hyperlipidemia, anxiety Labs include: Glucose 187 LBM 07/22/18, +UOP 1800ml Assessment Assessment: Pt continues at nutritional risk r/t clinical status, previously requiring TF' ing for nutritional support. Pt extubated 06/29, re-intubated 07/02, extubated 07/17; 07/23 pt transferred from med-surg to [facility] w/difficulty breathing. No diet order inplace. Dietitian to monitor diet advancement. Recommendations: 1. Nutrition follow-up s/p TF'ing 2. No diet order in place 3. Dietitian to monitor diet advancement Dietitian to Monitor: Lab values, Electrolytes, Glucose level, Intake & Output, Weight change, Diet advancement, Medical course
[2018-07-23] MEDS: Haloperidol Inj 5 MG/ML Ampul IV.PUSH PRN (20:33)
[2018-07-23] MEDS: dilTIAZem Inj 125 MG in Sodium Chlor 0.9% Inj 100 ML IV.CONT PRN (20:47)
[2018-07-24] MEDS: Artificial Tears Opth Drops 15 ML Bottle EACH EYE SCH ×3 (00:03→18:53)
[2018-07-24] MEDS: Haloperidol Inj 5 MG/ML Ampul IV.PUSH PRN (00:50)
[2018-07-24] MEDS: Pantoprazole Inj 40 MG Vial IV.PUSH SCH ×2 (02:30→15:48)
[2018-07-24] MEDS: dilTIAZem Inj 125 MG in Sodium Chlor 0.9% Inj 100 ML IV.CONT PRN ×2 (05:40→21:33)
[2018-07-24 05:49] LABS: Baso % (Auto) 0.2 % (0.0-2.0); Hematocrit 27.2 % (39.0-51.0); Hemoglobin 8.8 gm/dL (13.0-17.0); Lymph # (Auto) 0.2 th/mm3 (1.0-4.8); Lymph % (Auto) 5.8 % (9.0-44.0); Mean Corpuscular HGB Conc 32.5 % (32.0-36.0); Mean Corpuscular Hemoglobin 31.1 pg (27.0-34.0); Mean Corpuscular Volume 95.7 fL (80.0-100.0); Mean Platelet Volume 9.3 fL (7.0-11.0); Mono # (Auto) 0.3 th/mm3 (0.0-0.9); Mono % (Auto) 8.9 % (0.0-8.0); Neut # (Auto) 3.3 th/mm3 (1.8-7.7); Neut % (Auto) 85.1 % (16.0-70.0); Platelet Count 57 th/mm3 (150-450); Red Blood Count 2.84 mil/mm3 (4.50-5.90); Red Cell Distribution Width 14.8 % (11.6-17.2); White Blood Count 3.9 th/mm3 (4.0-11.0)
[2018-07-24 06:15] LABS: Anion Gap 3 meq/L (5-15); Blood Urea Nitrogen 25 mg/dL (7-18); Calcium 7.3 mg/dL (8.5-10.1); Carbon Dioxide 40.7 meq/L (21.0-32.0); Chloride 102 meq/L (98-107); Glomerular Filtration Rate Greater Than 89 mL/min (>89); Glucose,Random 212 mg/dL (74-106); Magnesium 1.3 mg/dL (1.5-2.5); Phosphorus 2.7 mg/dL (2.5-4.9); Potassium 3.8 meq/L (3.5-5.1); Sodium 146 meq/L (136-145)
[2018-07-24 06:31] LABS: Calcium-Albumin Corrected 7.7 mg/dL (8.5-10.1); Total Protein 6.4 g/dL (6.4-8.2)
[2018-07-24 09:55] LABS: Basophilic Stippling Moderate
[2018-07-24 09:56] LABS: Stomatocytes 1+
--- NOTE | 2018-07-24 09:56 | P.PNCS ---
Subjective Interval history: Moderate distention. Respiratoy distress yesterday with CO2 retention. Objective Result Diagrams: 07/24/18 04:43 07/24/18 04:43 Objective Remarks: Awake with tachypnea. Abd: softly distended. Not tender. Assessment and Plan - Plan Colonic Ileus secondary to COPD and multple medical problems Would consider removing Rectal tube as Dr Berrios has related that he had mucosal ulcerations and he has a low platelet count.
--- NOTE | 2018-07-24 10:28 | P.PNPL ---
Subjective Interval history: 73 YOAA male with COPD, 02 dependent Follows at [facility] Admitted with AMS, COPD exac Tr to IMC due to resp distres and resp acidosis used BIPAP few hrs More awake now Abd distended Physical Exam Vital signs: Vital Signs 07/23/18 12:00 07/23/18 15:51 07/23/18 16:00 Temperature 98.1 F 98.4 F Pulse Rate 114 H 104 H 100 H Respiratory Rate 22 29 H 36 H Blood Pressure 144/67 H 150/74 H Pulse Oximetry 96 96 96 07/23/18 16:30 07/23/18 17:00 07/23/18 17:01 Temperature Pulse Rate 96 H 103 H 106 H Respiratory Rate 21 25 H 29 H Blood Pressure 143/68 H 142/68 H Pulse Oximetry 96 96 95 07/23/18 17:30 07/23/18 18:00 07/23/18 18:30 Temperature Pulse Rate 104 H 98 H 98 H Respiratory Rate 31 H 26 H 26 H Blood Pressure 128/67 156/67 H 155/70 H Pulse Oximetry 100 94 L 96 07/23/18 19:00 07/23/18 19:09 07/23/18 19:28 Temperature Pulse Rate 95 H 101 H Respiratory Rate 29 H 29 H Blood Pressure 171/76 H Pulse Oximetry 98 97 100 07/23/18 19:31 07/23/18 20:00 07/23/18 20:30 Temperature 98.0 F Pulse Rate 100 H 103 H 100 H Respiratory Rate 30 H 27 H 27 H Blood Pressure 146/68 H 144/76 H 149/79 H Pulse Oximetry 100 98 99 07/23/18 21:00 07/23/18 21:01 07/23/18 21:31 Temperature Pulse Rate 105 H 104 H 102 H Respiratory Rate 27 H 30 H 29 H Blood Pressure 177/74 H 164/77 H Pulse Oximetry 96 98 94 L 07/23/18 22:00 07/23/18 22:01 07/23/18 22:30 Temperature Pulse Rate 100 H 97 H 101 H Respiratory Rate 26 H 24 26 H Blood Pressure 171/76 H 163/74 H Pulse Oximetry 91 L 91 L 94 L 07/23/18 23:00 07/23/18 23:48 07/24/18 00:00 Temperature 98.1 F Pulse Rate 101 H 100 H 99 H Respiratory Rate 27 H 26 H 26 H Blood Pressure 174/78 H 141/75 H 158/78 H Pulse Oximetry 95 97 97 07/24/18 00:17 07/24/18 00:30 07/24/18 01:00 Temperature Pulse Rate 98 H 95 H Respiratory Rate 28 H 22 Blood Pressure 152/73 H Pulse Oximetry 95 97 99 07/24/18 01:01 07/24/18 01:31 07/24/18 02:00 Temperature Pulse Rate 99 H 97 H 96 H Respiratory Rate 24 26 H 29 H Blood Pressure 152/75 H 154/69 H 143/87 H Pulse Oximetry 100 97 07/24/18 02:30 07/24/18 03:00 07/24/18 03:31 Temperature Pulse Rate 92 H 94 H 100 H Respiratory Rate 34 H 32 H 26 H Blood Pressure 146/73 H 178/74 H 143/65 H Pulse Oximetry 98 100 100 07/24/18 04:00 07/24/18 06:00 07/24/18 07:44 Temperature 98.6 F Pulse Rate 96 H 91 H 95 H Respiratory Rate 25 H 19 Blood Pressure 144/93 H Pulse Oximetry 100 100 Intake & Output 07/23/18 07/24/18 07/24/18 18:59 06:59 18:59 Intake Total 1100 / 1100 125 / 125 Output Total 550 / 550 950 / 950 Balance 550 / 550 -825 / -825 Weight 80.3 kg Intake: IV 1100 / 1100 125 / 125 1/2 Normal Saline Inj 1,000 ML 1000 / 1000 @ 30 mls/hr IV.CONT .Q24H [facility] Rx#:[id number] Cardizem Inj 125 MG In NS Inj 125 / 125 100 ML @ 5 MG/HR 5 mls/hr IV. CONT TITRATE PRN Rx#:[id number] Magnesium Sulfate 1 gm/D5W 100 100 / 100 ml Premix 100 ML @ 100 mls/hr IV.SIG ONCE ONE Rx#:[id number] Oral 0 / 0 0 / 0 Output: Urine Amount (Catheter) 550 / 550 950 / 950 Condom 550 / 550 950 / 950 Other: Date of Last Bowel Movement 07/22/18 07/22/18 # Bowel Movements 0 0 GENERAL: Obese AA male, mild sob SKIN: Warm and dry. HEAD: Normocephalic. EYES: No scleral icterus. No injection or drainage. NECK: Supple, trachea midline. No JVD or lymphadenopathy. CARDIOVASCULAR: Regular rate and rhythm without murmurs, gallops, or rubs. RESPIRATORY: Breath sounds equal bilaterally. No accessory muscle use. GASTROINTESTINAL: Abdomen soft, non-tender, distended. MUSCULOSKELETAL: No cyanosis, or edema. BACK: Nontender without obvious deformity. No CVA tenderness. 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 Abdomenal distension, s/p decompression. PLAN: BIPAP at night and prn Aerosol nebs Supplement 02 Solumedrol 20 mg q day Monitor BS
[2018-07-24] MEDS: Bisacodyl 10 MG Supp RECTAL SCH (11:09)
[2018-07-24] MEDS: Methylnaltrexone Inj 12 MG/0.6 ML Vial SQ SCH (11:10)
[2018-07-24] MEDS: MethylPREDNISolone Sod Succinate Inj 40 MG/ML Vial IV.PUSH SCH (11:11)
[2018-07-24] MEDS ORDERED: Magnesium Sulfate Inj 2 GM in Sodium Chlor 0.9% Inj 96 ML IV.SIG ONE (15:13)
[2018-07-24] MEDS ORDERED: Calcium Gluconate Inj 2 GM in Sodium Chlor 0.9% Inj 100 ML IV.SIG ONE (15:14)
[2018-07-24 15:30] LABS: ABG Base Excess 12.8 mmol/L (-2-2); ABG PCO2 89 mmHg (38-42); ABG PO2 86 mmHg (61-120)
--- NOTE | 2018-07-24 15:56 | XR ---
EXAM DATE: 07/24/2018 3:50 PM EST AGE/SEX: 73 years / Male INDICATIONS: Respiratory failure CLINICAL DATA: This is the patient's subsequent encounter. Patient reports that signs and symptoms h ave been present for 1 week and indicates a pain score of Nonresponsive. MEDICAL/SURGICAL HISTORY: . Chronic obstructive pulmonary disease. Hypertension None. [place] [facility] [place]. . FINDINGS: Very mild, vague bibasilar consolidation present. No pleural effusion or pneumothorax. Heart size sta ble, within normal limits. CONCLUSION: Mild bibasilar consolidation. Electronically signed by: Jimy Gold MD 07/24/2018 3:55 PM EST
--- NOTE | 2018-07-24 16:14 | P.PNCC ---
Subjective Subjective Remarks/Hospital Course: Mr. Curry is a 73-year-old -[place] male with past medical history significant for COPD on 3 L nasal cannula, hypertension, hyperlipidemia and anxiety who was admitted to the hospitalist service on 06/19/2018 for worsening shortness of breath due to COPD exacerbation. He was treated with IV Solu- Medrol, IV antibiotics, breathing treatments gradually improved. Patient was also complaining about dyspepsia and underwent EGD by GI yesterday. Per report the EGD was normal but patient developed worsening shortness of breath and COPD exacerbation postprocedure, possibly from aspiration after sedated. Two ABGs done yesterday showed hypercapnic respiratory failure second 1 was on BiPAP and this was improved with pH 7.3 with PCO2 of 74. Patient remained on BiPAP overnight however was noticed to be lethargic today a.m., stat ABG showed pH of 7.21 PCO2 110 PO2 88 while on BiPAP. Patient was lethargic intermittently dozing off due to CO2 narcosis. Critical care medicine was consulted and I immediately evaluated the patient. Patient had obviously failed BiPAP I proceeded with endotracheal intubation placed on mechanical ventilation. Postintubation I have ordered single dose of Solu-Medrol 125 mg x1 continue Solu -Medrol 60 every 8, discontinue ceftriaxone and start cefepime 2 g IV every 8 hours continue azithromycin. Add budesonide inhaled, placed on scheduled DuoNeb every 4 hours and as needed. 06/27: Patient was intubated yesterday for severe hypercapnic respiratory failure. Currently remains intubated sedated and intubated remains diminished bilaterally. Heavily sedated for ventilator synchrony 06/28: Urine output significantly improved with fluid resuscitation. Creat down trending now 2 from 2.3, UO >3.3 L. Remains intubated sedated. Will initiate daily sedation vacation and CPAP trials 06/29: More awake today tolerating CPAP trials intermittently follows commands but gets agitated/frustrated fast. Urine output remains excellent creatinine 1.4. However sodium increasing 158 today. Night [employer] management professor had changed fluid to D5 W for free water replacement. Due to hypoglycemia will change to quarter normal saline at 150 mL/h repeat CMP in the afternoon 06/30 Patient was extubated yesterday. Awake 07/01 Patient is lying in bed in NAD. T: 100.5 07/02: Intubated early this morning due to acute hypoxic respiratory failure. Central line placed due to hypotension. Plan for GI perform endoscopic decompression of this large bowel today. Arousable and does follow commands. Placed on argatroban 07/03: Currently, intubated with borderline blood pressure. Central line placed yesterday due to hypotension. Did not move bowels despite 1 L of fluid from colonoscopy yesterday and multiple laxatives provided. See orders for additional laxatives today. Might need neostigmine. 07/04 Patient remains intubated and sedated with Diprivan. Given Neostigmine last night. KUB this morning showed colonic ileus. Afebrile. On Argatroban. 07/05 No events overnight, sedated with Diprivan and intubated. Off Argatroban. 07/06 Patient remains intubated and sedated. Afebrile. 07/07 Patient remains intubated, s/p decompressive colonoscopy yesterday. Awake. 07/08 Patient s/p extubation yesterday. Awake and alert. 07/09 Patient is awake, alert lying in bed in NAD. Afebrile. 07/10 Patient is awake and alert, Afebrile. 07/11 Patient s/p decompressive colonoscopy yesterday. Afebrile. On Lasix drip.( UOP: 2800ml overnight). Cr: 3.0 from 2.25. 07/12 Patient is awake, alert given Neostigmine overnight. NGT to LIWS, off Lasix drip. 07/13: Resting comfortably in bed in no acute distress. 3 bowel movements documented. Remains n.p.o. Bladder pressures around 6. Potassium being replaced. Remains anemic around 7. 07/14 Patient is lying in bed in NAD. Afebrile. 07/15 No events overnight. Afebrile. 07/16: Resting in bed mild distress. Abdomen remains distended. Hemoglobin has dropped to 6.2 2 units of PRBC ordered. Patient underwent decompressive colonoscopy by Dr. Berrios for colonic ileus 07/17: No significant overnight events, patient states that he wants to get out of bed to a chair as he is having rectal discomfort. 07/18: Patient reportedly had a BM after digital rectal exam yesterday, states that he's been passing flatus "every now and then" overnight. No plans for OR or sigmoidoscopy as per colorectal service, OK to transfer out of [facility] [place]. 07/19: Patient transferred to [facility] yesterday, complained of shortness of breath again today. An ABG showed a pCO2 of 79 so he was placed on bipap and transferred to [facility]. Most recent ABG shows pCO2 of 66, KUB still has abdominal distension but appears to be improved when compared to KUB from 07/15. Patient has reportedly been having bowel movements and passing flatus overnight. 07/20: No dramatic improvement in abdominal distention however abdomen soft. The patient was able to breathe comfortably overnight and remained alert. This morning the BiPAP mask was removed for half an hour and the patient did well without evidence of CO2 retention or somnolence. Reconsult note 07/23: The patient was a halicat from the [facility] floor. Patient was noted to be somnolent, had difficulty breathing. Stat ABG was performed revealing a PCO2 of 113. The patient was placed on BiPAP and transferred to [facility]. Currently remains on CPAP respiratory rate is 25 , 16/5 with an FiO2 35%. 07/24: Overnight the patient was placed on BiPAP 10/5 refusing BiPAP pulling out IVs. The patient became tachycardic refusing p.o. medications. The patient was placed on a Cardizem infusion currently at 5 mg an hour. Patient is more compliant at this time the patient's BiPAP settings were increased to 15 /5 35% stat ABGs were ordered the patient was noted to have a PCO2 of 89, continues with hypercapnic respiratory failure in the setting of severe COPD. Extensive discussion with family at bedside the patient's sister and daughter provided medical status update on recent transfer to ICU and current standing. Inform family that patient is at risk for for emergent intubation. Repeat ABG pending this evening. Objective Vital Signs / I&O: Vital Signs 07/23/18 16:30 07/23/18 17:00 07/23/18 17:01 Temperature Pulse Rate 96 H 103 H 106 H Respiratory Rate 21 25 H 29 H Blood Pressure 143/68 H 142/68 H Pulse Oximetry 96 96 95 07/23/18 17:30 07/23/18 18:00 07/23/18 18:30 Temperature Pulse Rate 104 H 98 H 98 H Respiratory Rate 31 H 26 H 26 H Blood Pressure 128/67 156/67 H 155/70 H Pulse Oximetry 100 94 L 96 07/23/18 19:00 07/23/18 19:09 07/23/18 19:28 Temperature Pulse Rate 95 H 101 H Respiratory Rate 29 H 29 H Blood Pressure 171/76 H Pulse Oximetry 98 97 100 07/23/18 19:31 07/23/18 20:00 07/23/18 20:30 Temperature 98.0 F Pulse Rate 100 H 103 H 100 H Respiratory Rate 30 H 27 H 27 H Blood Pressure 146/68 H 144/76 H 149/79 H Pulse Oximetry 100 98 99 07/23/18 21:00 07/23/18 21:01 07/23/18 21:31 Temperature Pulse Rate 105 H 104 H 102 H Respiratory Rate 27 H 30 H 29 H Blood Pressure 177/74 H 164/77 H Pulse Oximetry 96 98 94 L 07/23/18 22:00 07/23/18 22:01 07/23/18 22:30 Temperature Pulse Rate 100 H 97 H 101 H Respiratory Rate 26 H 24 26 H Blood Pressure 171/76 H 163/74 H Pulse Oximetry 91 L 91 L 94 L 07/23/18 23:00 07/23/18 23:48 07/24/18 00:00 Temperature 98.1 F Pulse Rate 101 H 100 H 99 H Respiratory Rate 27 H 26 H 26 H Blood Pressure 174/78 H 141/75 H 158/78 H Pulse Oximetry 95 97 97 07/24/18 00:17 18 00:30 07/24/18 01:00 Temperature Pulse Rate 98 H 95 H Respiratory Rate 28 H 22 Blood Pressure 152/73 H Pulse Oximetry 95 97 99 11/22/18 01:01 07/24/18 01:31 07/24/18 02:00 Temperature Pulse Rate 99 H 97 H 96 H Respiratory Rate 24 26 H 29 H Blood Pressure 152/75 H 154/69 H 143/87 H Pulse Oximetry 100 97 07/24/18 02:30 07/24/18 03:00 07/24/18 03:31 Temperature Pulse Rate 92 H 94 H 100 H Respiratory Rate 34 H 32 H 26 H Blood Pressure 146/73 H 178/74 H 143/65 H Pulse Oximetry 98 100 100 07/24/18 04:00 07/24/18 04:30 07/24/18 05:00 Temperature 98.6 F Pulse Rate 96 H 94 H 96 H Respiratory Rate 25 H 26 H 24 Blood Pressure 144/93 H 149/70 H Pulse Oximetry 100 100 100 07/24/18 05:30 07/24/18 06:00 07/24/18 06:01 Temperature Pulse Rate 97 H 91 H 89 Respiratory Rate 26 H 32 H 24 Blood Pressure 152/64 H 135/61 Pulse Oximetry 100 100 100 07/24/18 06:30 07/24/18 07:00 07/24/18 07:01 Temperature Pulse Rate 91 H 95 H 95 H Respiratory Rate 29 H 26 H 27 H Blood Pressure 125/58 L 121/60 Pulse Oximetry 100 100 100 07/24/18 07:30 07/24/18 07:44 07/24/18 08:00 Temperature 98.3 F Pulse Rate 94 H 95 H 97 H Respiratory Rate 25 H 19 28 H Blood Pressure 126/60 149/67 H Pulse Oximetry 100 100 100 07/24/18 08:01 07/24/18 08:31 07/24/18 09:00 Temperature Pulse Rate 97 H 97 H 95 H Respiratory Rate 32 H 40 H 26 H Blood Pressure 149/67 H 137/66 155/68 H Pulse Oximetry 99 99 95 07/24/18 09:31 07/24/18 10:00 07/24/18 10:30 Temperature Pulse Rate 93 H 100 H 97 H Respiratory Rate 32 H 37 H 38 H Blood Pressure 135/61 149/68 H 148/66 H Pulse Oximetry 96 99 99 07/24/18 11:00 07/24/18 11:01 07/24/18 11:23 Temperature Pulse Rate 94 H 96 H Respiratory Rate 29 H 27 H Blood Pressure 141/64 H Pulse Oximetry 98 99 100 07/24/18 11:30 07/24/18 12:00 07/24/18 12:30 Temperature 98.6 F Pulse Rate 96 H 90 96 H Respiratory Rate 28 H 43 H 28 H Blood Pressure 126/87 126/78 136/69 Pulse Oximetry 100 100 100 07/24/18 13:00 07/24/18 13:31 07/24/18 14:00 Temperature Pulse Rate 92 H 87 89 Respiratory Rate 36 H 36 H 25 H Blood Pressure 131/68 152/72 H Pulse Oximetry 99 98 99 07/24/18 14:02 07/24/18 14:40 07/24/18 15:00 Temperature Pulse Rate 90 87 92 H Respiratory Rate 19 20 30 H Blood Pressure 109/80 159/74 H 143/73 H Pulse Oximetry 98 97 100 07/24/18 15:30 Temperature Pulse Rate 89 Respiratory Rate 18 Blood Pressure 164/70 H Pulse Oximetry 98 Intake & Output 07/23/18 07/24/18 07/24/18 18:59 06:59 18:59 Intake Total 1100 / 1100 125 / 125 Output Total 550 / 550 950 / 950 Balance 550 / 550 -825 / -825 Weight 80.3 kg Intake: IV 1100 / 1100 125 / 125 1/2 Normal Saline Inj 1,000 ML 1000 / 1000 @ 30 mls/hr IV.CONT .Q24H [facility] Rx#:[id number] Cardizem Inj 125 MG In NS Inj 125 / 125 100 ML @ 5 MG/HR 5 mls/hr IV. CONT TITRATE PRN Rx#:[id number] Magnesium Sulfate 1 gm/D5W 100 100 / 100 ml Premix 100 ML @ 100 mls/hr IV.SIG ONCE ONE Rx#:[id number] Oral 0 / 0 0 / 0 Output: Urine Amount (Catheter) 550 / 550 950 / 950 Condom 550 / 550 950 / 950 Other: Date of Last Bowel Movement 07/22/18 07/22/18 07/22/18 # Bowel Movements 0 0 Result Diagrams: 07/24/18 04:43 07/24/18 04:43 Objective Remarks: GENERAL: Elderly -[place] male sitting in bed, currently on BiPAP comfortable and calm. SKIN: Warm and dry HEAD: Normocephalic. EYES: PERRL NECK: Supple, trachea midline. Airway widely patent, no obstructive noises CARDIOVASCULAR: Regular rhythm in the high 70s. Currently on Cardizem infusion at 5 mg/now RESPIRATORY: Diminished breath sounds in bases noted .B/Lequal air entry, comfortable respiratory pattern, speaking in complete sentences GASTROINTESTINAL: Abdomen distended and firm, non-tender, no guarding, bowel sounds present MUSCULOSKELETAL: 1+ bilateral upper/ lower extremity edema, warm and well- perfused Neuro: Awake and alert, speaking in complete sentences, no neuro deficits Assessment and Plan - Assessment and Plan Plan: ASSESSMENT: Hypercapnic respiratory failure Acute COPD exacerbation Respiratory acidosis Altered mental status due to CO2 narcosis Acute kidney injury/failure Anemia requiring transfusion Colonic ileus Hypertension Leukocytosis Hyperglycemia COPD Hypernatremia Hypopotassemia Normocytic anemia Thrombocytopenia Hyperphosphatemia PLAN: NEURO: -Monitor neuro status, avoid sedatives -Obtain acetylcholine receptor and autoantibodies RESP: -Extubated 06/29. Reintubated 07/02 extubated again 07/07 -DuoNeb every 4 hours scheduled and butyryl aerosols every 2 hours as needed -Wean methylprednisolone succinate from 40 mg to 20 mg daily -Inhaled budesonide -CXR-negative -Maintain BiPAP 15/5 FiO2 of 35 per -ABG 7.2 //39/12. Plan to repeat ABG at 2200 post changes of BiPAP setting CV: - Monitor HR and BP keep MAP>65mmHg -Continue with BP meds, Cardizem 60mg Q6. Patient was placed on Cardizem infusion during the night due to refusal of taking p.o. medications. All p.o. medications resumed this afternoon GI: -Decompressive colonoscopy by Dr. Berrios performed on 07/15/2018. -KUB 07/14: Ileus. Get follow-up KUB stat -KUB 07/13: Stable nonobstructive colonic distention. Given Neostigmine 07/11. -s/p repeat decompressive colonoscopy 07/10 and 07/15 -Continue Protonix secondary to thrombocytopenia, avoid famotidine -On docusate sodium/senna 1 tablet twice daily, lactulose 30 cc 4 times daily -Maintain n.p.o. status for now patient is at risk for intubation FEN/: -Monitor renal function, I/O's, avoid nephrotoxins -Renal function continues to improve- Cr: 0.9 -Begin D5 09/03 NSS @ 30cc/hr -Renal- Dr. Figueroa ID: -Off abx monitor for signs of infections (Fever, WBC) WBC stable -BC and urine cx from 07/11- NG in 5 days -07/02 BC: NGTS, sputum cx 07/02:normal resp justyn -ID is following- Dr. Brown PRN HEME: -Monitor CBC, coags, Hep PLT is positive. ANNMARIE negative. Hematology is following. Off argatroban drip -s/p 2U PRBCs on 07/16, HgB 8.8, used for hemoglobin less than 7 -Stable thrombocytopenia-avoid medications that precipitate thrombocytopenia -Strict bedrest for now ENDO: -Electrolyte replacement per protocol -Sliding scale insulin medium scale PROPH: -Bilateral lower extremity SCDs. PPI -Doppler US LE negative DVT 07/02 LINES: -Utilize peripheral IVs Overall impression: Elderly man with severe emphysema and quite marginal respiratory status. His somnolence has resolved and he is moving air well. Continue BiPAP noninvasive ventilation at night. Extensive discussion with family patient is at risk for possible intubation and subsequent tracheostomy all questions answered. Level 3 Discussed Condition With: Family at bedside
[2018-07-24 17:30] LABS: Anion Gap 3 meq/L (5-15); Blood Urea Nitrogen 22 mg/dL (7-18); Calcium 7.2 mg/dL (8.5-10.1); Carbon Dioxide 39.9 meq/L (21.0-32.0); Chloride 102 meq/L (98-107); Glomerular Filtration Rate Greater Than 89 mL/min (>89); Glucose,Random 223 mg/dL (74-106); Potassium 3.7 meq/L (3.5-5.1); Sodium 145 meq/L (136-145)
[2018-07-24 17:54] LABS: Calcium-Albumin Corrected 7.6 mg/dL (8.5-10.1); Total Protein 6.3 g/dL (6.4-8.2)
[2018-07-24] MEDS: dilTIAZem 60 MG Tablet PO SCH ×2 (18:55→21:31)
[2018-07-24] MEDS: Sodium Chloride 0.45 % Inj 1,000 ML IV.CONT SCH (21:31)
[2018-07-24 22:19] LABS: ABG Base Excess 12.5 mmol/L (-2-2); ABG PCO2 81 mmHg (38-42); ABG PO2 92 mmHG (61-120)
[2018-07-25] MEDS: Artificial Tears Opth Drops 15 ML Bottle EACH EYE SCH ×4 (00:15→23:44)
[2018-07-25] MEDS: Pantoprazole Inj 40 MG Vial IV.PUSH SCH ×2 (02:37→13:14)
[2018-07-25 04:15] LABS: ABG Base Excess 14.2 mmol/L (-2-2); ABG PCO2 67 mmHg (38-42); ABG PO2 76 mmHG (61-120)
--- NOTE | 2018-07-25 04:48 | XR ---
EXAM DATE: 07/25/2018 4:39 AM EST AGE/SEX: 73 years / Male INDICATIONS: Shortness of breath, possible respiratory disease. CLINICAL DATA: This is the patient's subsequent encounter. Patient reports that signs and symptoms h ave been present for 2 weeks and indicates a pain score of Nonresponsive. MEDICAL/SURGICAL HISTORY: Chronic obstructive pulmonary disease. Hypertension. None. COMPARISON: [facility], CHEST 1V SINGLE AP, 07/24/2018. . FINDINGS: Improvement in previous basilar airspace disease. No new infiltrate or effusion. No pneumothorax. Mil d scoliosis. CONCLUSION: Previous basilar opacity has resolved. No new infiltrate or effusion. Electronically signed by: Angus Millan MD 07/25/2018 4:47 AM EST
[2018-07-25 06:30] LABS: Hematocrit 30.1 % (39.0-51.0); Hemoglobin 9.9 gm/dL (13.0-17.0); Lymph # (Auto) 0.2 th/mm3 (1.0-4.8); Lymph % (Auto) 5.4 % (9.0-44.0); Mean Corpuscular HGB Conc 32.7 % (32.0-36.0); Mean Corpuscular Hemoglobin 31.3 pg (27.0-34.0); Mean Corpuscular Volume 95.7 fL (80.0-100.0); Mean Platelet Volume 9.6 fL (7.0-11.0); Mono # (Auto) 0.3 th/mm3 (0.0-0.9); Mono % (Auto) 6.8 % (0.0-8.0); Neut # (Auto) 3.4 th/mm3 (1.8-7.7); Neut % (Auto) 87.8 % (16.0-70.0); Platelet Count 68 th/mm3 (150-450); Red Blood Count 3.15 mil/mm3 (4.50-5.90); Red Cell Distribution Width 14.5 % (11.6-17.2); White Blood Count 3.9 th/mm3 (4.0-11.0)
[2018-07-25 07:14] LABS: Magnesium 1.4 mg/dL (1.5-2.5); Phosphorus 1.7 mg/dL (2.5-4.9)
[2018-07-25 08:45] LABS: Platelet Morphology Normal (Normal)
--- NOTE | 2018-07-25 09:40 | P.PNCS ---
Subjective Interval history: Essentially no change. Remains on BIPAP. Objective Result Diagrams: 07/25/18 05:21 07/24/18 16:24 Objective Remarks: Awake with tachypnea. Abd: soft, mild distention. Not tender. Assessment and Plan - Plan Colonic Ileus secondary to COPD and multple medical problems No BMs recorded but not vey distended.
--- NOTE | 2018-07-25 09:40 | P.PNONC ---
Subjective Interval history: Resting in bed. BiPAP in place. Tenous respiratory status. Objective Vital Signs/Intake & Output: Vital Signs 07/24/18 10:00 07/24/18 10:30 07/24/18 11:00 Temperature Pulse Rate 100 H 97 H 94 H Respiratory Rate 37 H 38 H 29 H Blood Pressure 149/68 H 148/66 H Pulse Oximetry 99 99 98 07/24/18 11:01 07/24/18 11:23 07/24/18 11:30 Temperature Pulse Rate 96 H 96 H Respiratory Rate 27 H 28 H Blood Pressure 141/64 H 126/87 Pulse Oximetry 99 100 100 07/24/18 12:00 07/24/18 12:30 07/24/18 13:00 Temperature 98.6 F Pulse Rate 90 96 H 92 H Respiratory Rate 43 H 28 H 36 H Blood Pressure 126/78 136/69 131/68 Pulse Oximetry 100 100 99 07/24/18 13:31 07/24/18 14:00 07/24/18 14:02 Temperature Pulse Rate 87 89 90 Respiratory Rate 36 H 25 H 19 Blood Pressure 152/72 H 109/80 Pulse Oximetry 98 99 98 07/24/18 14:40 07/24/18 15:00 07/24/18 15:30 Temperature Pulse Rate 87 92 H 89 Respiratory Rate 20 30 H 18 Blood Pressure 159/74 H 143/73 H 164/70 H Pulse Oximetry 97 100 98 07/24/18 16:00 07/24/18 16:30 07/24/18 16:37 Temperature 98.7 F Pulse Rate 95 H 82 Respiratory Rate 27 H 15 Blood Pressure 158/78 H 131/58 L Pulse Oximetry 100 98 100 07/24/18 17:00 07/24/18 17:30 07/24/18 18:00 Temperature Pulse Rate 86 90 75 Respiratory Rate 32 H 34 H 21 Blood Pressure 140/63 128/66 126/60 Pulse Oximetry 100 100 98 07/24/18 18:30 07/24/18 19:00 07/24/18 19:30 Temperature Pulse Rate 86 83 90 Respiratory Rate 21 28 H 35 H Blood Pressure 122/61 134/67 141/68 H Pulse Oximetry 99 100 100 07/24/18 19:52 07/24/18 19:57 07/24/18 20:00 Temperature 98.2 F Pulse Rate 87 96 H Respiratory Rate 22 33 H Blood Pressure Pulse Oximetry 100 100 07/24/18 20:01 07/24/18 20:31 07/24/18 21:00 Temperature Pulse Rate 96 H 95 H 84 Respiratory Rate 35 H 29 H 30 H Blood Pressure 158/76 H 157/75 H 144/67 H Pulse Oximetry 100 100 98 07/24/18 21:30 07/24/18 22:00 07/24/18 22:01 Temperature Pulse Rate 92 H 95 H 93 H Respiratory Rate 27 H 29 H 24 Blood Pressure 142/65 H 167/78 H Pulse Oximetry 99 100 100 07/24/18 22:41 07/24/18 23:00 07/24/18 23:31 Temperature Pulse Rate 89 91 H 99 H Respiratory Rate 27 H 29 H 31 H Blood Pressure 141/69 H 151/79 H 157/79 H Pulse Oximetry 100 99 100 07/25/18 00:00 07/25/18 00:07 07/25/18 00:30 Temperature 98.8 F Pulse Rate 97 H 89 Respiratory Rate 29 H 35 H Blood Pressure 159/80 H 154/100 H Pulse Oximetry 100 100 96 07/25/18 01:00 07/25/18 01:27 07/25/18 01:30 Temperature Pulse Rate 95 H 101 H Respiratory Rate 27 H 33 H Blood Pressure 163/80 H 164/88 H Pulse Oximetry 100 100 100 07/25/18 02:00 07/25/18 02:04 07/25/18 02:31 Temperature Pulse Rate 97 H 98 H 91 H Respiratory Rate 31 H 31 H 32 H Blood Pressure 166/80 H 171/82 H 177/98 H Pulse Oximetry 100 100 100 07/25/18 02:33 07/25/18 03:00 07/25/18 03:30 Temperature Pulse Rate 101 H 95 H 97 H Respiratory Rate 34 H 32 H 31 H Blood Pressure 169/72 H 171/79 H 166/79 H Pulse Oximetry 100 100 100 07/25/18 04:00 07/25/18 04:03 07/25/18 04:25 Temperature 98.5 F Pulse Rate 91 H 93 H Respiratory Rate 33 H 30 H Blood Pressure 172/85 H Pulse Oximetry 100 100 100 07/25/18 04:56 07/25/18 05:00 07/25/18 05:30 Temperature Pulse Rate 92 H 89 94 H Respiratory Rate 30 H 32 H 32 H Blood Pressure 173/81 H 161/89 H 162/85 H Pulse Oximetry 98 99 100 07/25/18 06:00 07/25/18 07:26 Temperature Pulse Rate 88 95 H Respiratory Rate 30 H Blood Pressure Pulse Oximetry 100 Intake & Output 07/24/18 07/25/18 07/25/18 18:59 06:59 18:59 Intake Total 100 / 100 1125 / 1125 Output Total 1750 / 1750 950 / 950 Balance -1650 / -1650 175 / 175 Weight 80.2 kg Intake: IV 1125 / 1125 1/2 Normal Saline Inj 1,000 ML 1000 / 1000 @ 30 mls/hr IV.CONT .Q24H [facility] Rx#:[id number] Cardizem Inj 125 MG In NS Inj 125 / 125 100 ML @ 5 MG/HR 5 mls/hr IV. CONT TITRATE PRN Rx#:[id number] Oral 100 / 100 0 / 0 Tube Feeding 0 / 0 Water Bolus Amount 0 / 0 Anesthesia Amount 0 / 0 Output: Urine 800 / 800 Stool 0 / 0 Urine/Stool Mix 0 / 0 Pleural Fluid 0 / 0 Urine Amount (Catheter) 950 / 950 950 / 950 Condom 950 / 950 950 / 950 Other: # Voids 0 Date of Last Bowel Movement 07/22/18 07/25/18 # Bowel Movements 0 1 # Incontinent Bowel Movements 1 Result Diagrams: 07/25/18 05:21 07/24/18 16:24 Laboratory Results: Laboratory Results - last 24 hr 07/24/18 07/24/18 07/24/18 04:43 13:52 15:20 WBC RBC Hgb Hct MCV MCH MCHC RDW Plt Count MPV Prelim Diff (Auto) Neut % (Auto) Lymph % (Auto) [place] % (Auto) Eos % (Auto) Baso % (Auto) Neut # (Auto) Lymph # (Auto) [place] # (Auto) Eos # (Auto) Baso # (Auto) WBC Differential . Diff Scan Auto diff confirmed Differential Comment Platelet Estimate Platelet Morphology Basophilic Stippling Moderate H Stomatocytes 1+ H Puncture Site Left radial Patient Temperature 98.6 O2 Saturation 95 ABG pH 7.27 L* ABG pCO2 89 H* ABG pO2 86 ABG HCO3 40 H ABG O2 Content 12.0 ABG Base Excess 12.8 H ABG Methemoglobin 0.7 Raymon Test Present Hemoglobin 8.9 L Carboxyhemoglobin 1.5 O2 Delivery Device Bipap Vent Setting 10/+5 Inspired O2 35 Critical Value Yes Sodium Potassium Chloride Carbon Dioxide Anion Gap BUN Creatinine Estimated GFR POC Glucose 221 H Random Glucose Calcium Prot Corrected Calcium Phosphorus Magnesium Total Protein 07/24/18 07/24/18 07/24/18 16:24 16:34 22:08 WBC RBC Hgb Hct MCV MCH MCHC RDW Plt Count MPV Prelim Diff (Auto) Neut % (Auto) Lymph % (Auto) [place] % (Auto) Eos % (Auto) Baso % (Auto) Neut # (Auto) Lymph # (Auto) [place] # (Auto) Eos # (Auto) Baso # (Auto) WBC Differential Diff Scan Differential Comment Platelet Estimate Platelet Morphology Basophilic Stippling Stomatocytes Puncture Site Left radial Patient Temperature 98.6 O2 Saturation 95 ABG pH 7.31 L ABG pCO2 81 H* ABG pO2 92 ABG HCO3 39 H ABG O2 Content 12.4 ABG Base Excess 12.5 H ABG Methemoglobin 1.6 Raymon Test Present Hemoglobin 9.2 L Carboxyhemoglobin 1.4 O2 Delivery Device Bipap 15/+5/35 Vent Setting Inspired O2 35 Critical Value Yes Sodium 145 Potassium 3.7 Chloride 102 Carbon Dioxide 39.9 H Anion Gap 3 L BUN 22 H Creatinine 0.88 Estimated GFR Greater than 89 POC Glucose 230 H Random Glucose 223 H Calcium 7.2 L* Prot Corrected Calcium 7.6 L Phosphorus Magnesium 1.0 L Total Protein 6.3 L 07/25/18 07/25/18 07/25/18 04:04 05:21 05:21 WBC 3.9 L RBC 3.15 L Hgb 9.9 L Hct 30.1 L MCV 95.7 MCH 31.3 MCHC 32.7 RDW 14.5 Plt Count 68 L MPV 9.6 Prelim Diff (Auto) Slide review pending Neut % (Auto) 87.8 H Lymph % (Auto) 5.4 L [place] % (Auto) 6.8 Eos % (Auto) 0.0 Baso % (Auto) 0.0 Neut # (Auto) 3.4 Lymph # (Auto) 0.2 L [place] # (Auto) 0.3 Eos # (Auto) 0.0 Baso # (Auto) 0.0 WBC Differential . Diff Scan Auto diff confirmed Differential Comment . Platelet Estimate Low L Platelet Morphology Normal Basophilic Stippling Stomatocytes Puncture Site Right radial Patient Temperature 98.6 O2 Saturation 93 ABG pH 7.39 ABG pCO2 67 H* ABG pO2 76 ABG HCO3 40 H ABG O2 Content 12.2 ABG Base Excess 14.2 H ABG Methemoglobin 1.6 Ray[place] Test Present Hemoglobin 9.2 L Carboxyhemoglobin 1.4 O2 Delivery Device Bipap 18/+5/30 Vent Setting Inspired O2 30 Critical Value Yes Sodium Potassium Chloride Carbon Dioxide Anion Gap BUN Creatinine Estimated GFR POC Glucose Random Glucose Calcium Prot Corrected Calcium Phosphorus 1.7 L D Magnesium 1.4 L Total Protein Imaging Studies: Impressions Chest X-Ray 07/24/18 00:00 CONCLUSION: Mild bibasilar consolidation. Chest X-Ray 07/25/18 04:00 CONCLUSION: Previous basilar opacity has resolved. No new infiltrate or effusion. Medications: Active Medications Generic Name Dose Route Start Last Admin Trade Name Freq PRN Reason Stop Dose Admin Acetaminophen 650 mg 06/20/18 02:11 07/09/18 11:20 Tylenol PO 650 mg Q4H PRN Administration Temp > 100.4 Hydrocodone Bitart/Acetaminophen 1 tab 07/09/18 01:37 07/23/18 02:40 [place] 10/325 PO 1 tab Q4H PRN Administration pain Albuterol 2.5 mg 07/02/18 14:53 07/20/18 21:12 Albuterol Neb (Prn) NEB 2.5 mg Q2HR NEB PRN Administration DYSPNEA Alvimopan 12 mg 07/19/18 14:00 07/25/18 02:37 Entereg PO 07/26/18 02:01 Not Given Q12H WOLF Artificial Tears 1 drop 07/02/18 16:00 07/25/18 00:15 Tears Naturale Opth Drops EACH EYE 1 drop Q8H WOLF Administration Bisacodyl 10 mg 06/24/18 15:15 07/24/18 11:09 Dulcolax Supp RECTAL 10 mg DAILY WOLF Administration Budesonide 0.5 mg 06/26/18 20:00 07/25/18 07:28 Pulmocort Respule Neb NEB 0.5 mg Q12HR NEB WOLF Administration Diltiazem HCl 60 mg 07/24/18 18:00 07/24/18 21:31 Cardizem PO Not Given QID WOLF Duloxetine HCl 20 mg 06/23/18 18:00 06/28/18 09:09 Cymbalta PO Not Given DAILY WOLF Haloperidol Lactate 5 mg 07/23/18 19:43 07/24/18 00:50 Haldol Inj IV.PUSH 5 mg Q1H PRN Administration AGITATION Sodium Chloride 1,000 mls @ 30 mls/hr 07/21/18 15:30 07/24/18 21:31 1/2 Normal Saline Inj IV.CONT 30 mls/hr .Q24H WOLF Administration Diltiazem HCl 125 mg/ Sodium 125 mls @ 5 mls/hr 07/23/18 20:25 07/25/18 02:17 Chloride IV.CONT 10 mg/hr TITRATE PRN 10 mls/hr Per Protocol Titration Protocol 5 MG/HR Methylnaltrexone [place] 12 mg 07/10/18 09:00 07/24/18 11:10 Relistor SQ 12 mg DAILY WOLF Administration Methylprednisolone Sodium Succinate 20 mg 07/18/18 09:00 07/24/18 11:11 Solumedrol Inj IV.PUSH 20 mg DAILY WOLF Administration Metoclopramide HCl 10 mg 07/09/18 22:00 07/25/18 05:29 Reglan Inj IV.PUSH 10 mg Q8HR [facility]OLF Administration Protocol Metoprolol Tartrate 2.5 mg 06/27/18 15:08 07/01/18 01:26 Lopressor Inj IV.PUSH 2.5 mg Q6H PRN Administration HEART RATE GREATER THAN 115 Ondansetron HCl 4 mg 06/20/18 02:11 07/08/18 08:53 Zofran Inj IV.PUSH 4 mg Q6H PRN Administration NAUSEA OR VOMITING Pantoprazole Sodium 40 mg 07/12/18 14:00 07/25/18 02:37 Protonix Inj IV.PUSH 40 mg Q12H [facility]OL[facility] Administration Sodium Biphosphate/Sodium Phosphate 118 ml 07/12/18 14:00 07/13/18 09:00 Fleets Enema (Adult) RECTAL 118 ml DAILY [facility]OLF Administration Sodium Chloride 2 ml 06/20/18 09:00 07/24/18 21:31 Ns Flush IV.FLUSH 2 ml BID WOLF Administration Sodium Chloride 2 ml 06/20/18 02:09 07/23/18 05:17 Ns Flush IV.FLUSH 2 ml PRN PRN Administration FLUSH AFTER USING IV ACCESS Sodium Chloride 0 ml 07/03/18 09:00 07/24/18 11:10 Ns Flush IV.FLUSH 2 ml DAILY WOLF Administration Objective Remarks: GENERAL: chronically ill appearing SKIN: Warm and dry. HEAD: Normocephalic. EYES: No scleral icterus. No injection or drainage. CARDIOVASCULAR: Regular rate and rhythm without murmurs. RESPIRATORY: BiPAP in place GASTROINTESTINAL: Abdomen soft, non-tender, nondistended. EXTREMITIES: No cyanosis, or edema. MUSCULOSKELETAL: Adequate muscle tone. NEUROLOGICAL: No obvious focal deficit. Assessment/Plan - Plan 1. 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 No evidence for ITP, TMA. Mild degree of hypofibrinogenemia. Likely secondary to illness, sepsis, abx. If does not improve would consider bone marrow biopsy in the outpatient setting once acute issues resolve. .
[2018-07-25] MEDS: Methylnaltrexone Inj 12 MG/0.6 ML Vial SQ SCH (10:05)
[2018-07-25] MEDS: Bisacodyl 10 MG Supp RECTAL SCH (10:05)
[2018-07-25] MEDS: dilTIAZem 60 MG Tablet PO SCH ×4 (10:05→20:03)
[2018-07-25] MEDS: MethylPREDNISolone Sod Succinate Inj 40 MG/ML Vial IV.PUSH SCH (10:06)
--- NOTE | 2018-07-25 12:25 | P.DIET ---
Nutritional Evaluation Type of nutrition evaluation: follow-up Nutrition consult regarding: Tube Feeding Subjective Subjective Comments: Pt on clear liquid diet briefly yesterday 07/24 and ate 100% of all meals. Objective - Diagnosis SOB, COPD Exacerbation - Objective % IBW: 126 Body Weight Used for Calculations: IBW (67.3kg(148 lb)) Energy Needs - Lower Range (kCal/kg): 23 Energy Needs - Upper Range (kCal/kg): 28 Lower Limit kCal/kg (kCals): 1,548 Upper Limit kCal/kg (kCals): 1,884 Lower Limit Protein Factor (Grams per Kg): 1.2 Upper Limit Protein Factor (Grams per Kg): 1.4 Lower Protein Needs (Protein): 81 Upper Protein Needs (Protein): 94 Dietitian Reviewed in Medical Record: Curent medications, Intake & Output, Labs , Medical history Diet Order: no order Objective Comments: PMH includes: COPD, HTN, hyperlipidemia, anxiety Labs include: Glucose 230, LBM 07/25/18, +UOP Assessment Assessment: Pt continues at nutritional risk r/t clinical status, previously requiring TF' ing for nutritional support. Pt extubated 06/29, re-intubated 07/02, extubated 07/17; 07/23 pt transferred from med-surg to [facility] w/difficulty breathing. Pt put on clear liquid diet on 07/24 and ate 100% for all meals. Pt maintaining NPO status per MD d/t risk for reintubation. Pts abd remains mildly distended. Dietitian to monitor diet advancement. Recommendations: 1. Nutrition follow-up s/p TF'ing 2. No diet order in place 3. Dietitian to monitor diet advancement Dietitian to Monitor: Lab values, Electrolytes, Glucose level, Intake & Output, Weight change, Diet advancement, Medical course
--- NOTE | 2018-07-25 12:29 | P.PNCC ---
Subjective Subjective Remarks/Hospital Course: Mr. Curry is a 73-year-old -[place]ian male with past medical history significant for COPD on 3 L nasal cannula, hypertension, hyperlipidemia and anxiety who was admitted to the hospitalist service on 06/19/2018 for worsening shortness of breath due to COPD exacerbation. He was treated with IV Solu- Medrol, IV antibiotics, breathing treatments gradually improved. Patient was also complaining about dyspepsia and underwent EGD by GI yesterday. Per report the EGD was normal but patient developed worsening shortness of breath and COPD exacerbation postprocedure, possibly from aspiration after sedated. Two ABGs done yesterday showed hypercapnic respiratory failure second 1 was on BiPAP and this was improved with pH 7.3 with PCO2 of 74. Patient remained on BiPAP overnight however was noticed to be lethargic today a.m., stat ABG showed pH of 7.21 PCO2 110 PO2 88 while on BiPAP. Patient was lethargic intermittently dozing off due to CO2 narcosis. Critical care medicine was consulted and I immediately evaluated the patient. Patient had obviously failed BiPAP I proceeded with endotracheal intubation placed on mechanical ventilation. Postintubation I have ordered single dose of Solu-Medrol 125 mg x1 continue Solu -Medrol 60 every 8, discontinue ceftriaxone and start cefepime 2 g IV every 8 hours continue azithromycin. Add budesonide inhaled, placed on scheduled DuoNeb every 4 hours and as needed. 06/27: Patient was intubated yesterday for severe hypercapnic respiratory failure. Currently remains intubated sedated and intubated remains diminished bilaterally. Heavily sedated for ventilator synchrony 06/28: Urine output significantly improved with fluid resuscitation. Creat down trending now 2 from 2.3, UO >3.3 L. Remains intubated sedated. Will initiate daily sedation vacation and CPAP trials 06/29: More awake today tolerating CPAP trials intermittently follows commands but gets agitated/frustrated fast. Urine output remains excellent creatinine 1.4. However sodium increasing 158 today. Night photo technician had changed fluid to D5 W for free water replacement. Due to hypoglycemia will change to quarter normal saline at 150 mL/h repeat CMP in the afternoon 06/30 Patient was extubated yesterday. Awake 07/01 Patient is lying in bed in NAD. T: 100.5 07/02: Intubated early this morning due to acute hypoxic respiratory failure. Central line placed due to hypotension. Plan for GI perform endoscopic decompression of this large bowel today. Arousable and does follow commands. Placed on argatroban 07/03: Currently, intubated with borderline blood pressure. Central line placed yesterday due to hypotension. Did not move bowels despite 1 L of fluid from colonoscopy yesterday and multiple laxatives provided. See orders for additional laxatives today. Might need neostigmine. 07/04 Patient remains intubated and sedated with Diprivan. Given Neostigmine last night. KUB this morning showed colonic ileus. Afebrile. On Argatroban. 07/05 No events overnight, sedated with Diprivan and intubated. Off Argatroban. 07/06 Patient remains intubated and sedated. Afebrile. 07/07 Patient remains intubated, s/p decompressive colonoscopy yesterday. Awake. 07/08 Patient s/p extubation yesterday. Awake and alert. 07/09 Patient is awake, alert lying in bed in NAD. Afebrile. 07/10 Patient is awake and alert, Afebrile. 07/11 Patient s/p decompressive colonoscopy yesterday. Afebrile. On Lasix drip.( UOP: 2800ml overnight). Cr: 3.0 from 2.25. 07/12 Patient is awake, alert given Neostigmine overnight. NGT to LIWS, off Lasix drip. 07/13: Resting comfortably in bed in no acute distress. 3 bowel movements documented. Remains n.p.o. Bladder pressures around 6. Potassium being replaced. Remains anemic around 7. 07/14 Patient is lying in bed in NAD. Afebrile. 07/15 No events overnight. Afebrile. 07/16: Resting in bed mild distress. Abdomen remains distended. Hemoglobin has dropped to 6.2 2 units of PRBC ordered. Patient underwent decompressive colonoscopy by Dr. Berrios for colonic ileus 07/17: No significant overnight events, patient states that he wants to get out of bed to a chair as he is having rectal discomfort. 07/18: Patient reportedly had a BM after digital rectal exam yesterday, states that he's been passing flatus "every now and then" overnight. No plans for OR or sigmoidoscopy as per colorectal service, [place] [facility] 07/19: Patient transferred to [facility] yesterday, complained of shortness of breath again today. An ABG showed a pCO2 of 79 so he was placed on bipap and transferred to [facility]. Most recent ABG shows pCO2 of 66, KUB still has abdominal distension but appears to be improved when compared to KUB from 07/15. Patient has reportedly been having bowel movements and passing flatus overnight. 07/20: No dramatic improvement in abdominal distention however abdomen soft. The patient was able to breathe comfortably overnight and remained alert. This morning the BiPAP mask was removed for half an hour and the patient did well without evidence of CO2 retention or somnolence. Reconsult note 07/23: The patient was a halicat from the [facility] floor. Patient was noted to be somnolent, had difficulty breathing. Stat ABG was performed revealing a PCO2 of 113. The patient was placed on BiPAP and [place] [facility] Currently remains on CPAP respiratory rate is 25 , 16/5 with an FiO2 35%. 07/24: Overnight the patient was placed on BiPAP 10/5 refusing BiPAP pulling out IVs. The patient became tachycardic refusing p.o. medications. The patient was placed on a Cardizem infusion currently at 5 mg an hour. Patient is more compliant at this time the patient's BiPAP settings were increased to 15 /5 35% stat ABGs were ordered the patient was noted to have a PCO2 of 89, continues with hypercapnic respiratory failure in the setting of severe COPD. Extensive discussion with family at bedside the patient's sister and daughter provided medical status update on recent transfer to ICU and current standing. Inform family that patient is at risk for for emergent intubation. Repeat ABG pending this evening. 07/25: Patient noted to have episodes of agitation continually removing BiPAP. I discussed with patient the criticality of his illness and possible intubation patient now agrees to wear BiPAP with exception of meals. Patient's diet was advanced to clear liquid noted improvement of chest x-ray patient is noted to have last bowel movement approximately 2 days ago we will continue to monitor and follow-up GI recommendations . Noted electrolyte repletion at this time. PCO2 now in the 60s. Objective Vital Signs / I&O: Vital Signs 07/24/18 12:30 07/24/18 13:00 07/24/18 13:31 Temperature Pulse Rate 96 H 92 H 87 Respiratory Rate 28 H 36 H 36 H Blood Pressure 136/69 131/68 152/72 H Pulse Oximetry 100 99 98 07/24/18 14:00 07/24/18 14:02 07/24/18 14:40 Temperature Pulse Rate 89 90 87 Respiratory Rate 25 H 19 20 Blood Pressure 109/80 159/74 H Pulse Oximetry 99 98 97 07/24/18 15:00 07/24/18 15:30 07/24/18 16:00 Temperature 98.7 F Pulse Rate 92 H 89 95 H Respiratory Rate 30 H 18 27 H Blood Pressure 143/73 H 164/70 H 158/78 H Pulse Oximetry 100 98 100 07/24/18 16:30 07/24/18 16:37 07/24/18 17:00 Temperature Pulse Rate 82 86 Respiratory Rate 15 32 H Blood Pressure 131/58 L 140/63 Pulse Oximetry 98 100 100 07/24/18 17:30 07/24/18 18:00 07/24/18 18:30 Temperature Pulse Rate 90 75 86 Respiratory Rate 34 H 21 21 Blood Pressure 128/66 126/60 122/61 Pulse Oximetry 100 98 99 07/24/18 19:00 07/24/18 19:30 07/24/18 19:52 Temperature Pulse Rate 83 90 87 Respiratory Rate 28 H 35 H 22 Blood Pressure 134/67 141/68 H Pulse Oximetry 100 100 07/24/18 19:57 07/24/18 20:00 07/24/18 20:01 Temperature 98.2 F Pulse Rate 96 H 96 H Respiratory Rate 33 H 35 H Blood Pressure 158/76 H Pulse Oximetry 100 100 100 07/24/18 20:31 07/24/18 21:00 07/24/18 21:30 Temperature Pulse Rate 95 H 84 92 H Respiratory Rate 29 H 30 H 27 H Blood Pressure 157/75 H 144/67 H 142/65 H Pulse Oximetry 100 98 99 07/24/18 22:00 07/24/18 22:01 07/24/18 22:41 Temperature Pulse Rate 95 H 93 H 89 Respiratory Rate 29 H 24 27 H Blood Pressure 167/78 H 141/69 H Pulse Oximetry 100 100 100 07/24/18 23:00 07/24/18 23:31 07/25/18 00:00 Temperature 98.8 F Pulse Rate 91 H 99 H 97 H Respiratory Rate 29 H 31 H 29 H Blood Pressure 151/79 H 157/79 H 159/80 H Pulse Oximetry 99 100 100 07/25/18 00:07 07/25/18 00:30 07/25/18 01:00 Temperature Pulse Rate 89 95 H Respiratory Rate 35 H 27 H Blood Pressure 154/100 H 163/80 H Pulse Oximetry 100 96 100 07/25/18 01:27 07/25/18 01:30 07/25/18 02:00 Temperature Pulse Rate 101 H 97 H Respiratory Rate 33 H 31 H Blood Pressure 164/88 H 166/80 H Pulse Oximetry 100 100 100 07/25/18 02:04 07/25/18 02:31 07/25/18 02:33 Temperature Pulse Rate 98 H 91 H 101 H Respiratory Rate 31 H 32 H 34 H Blood Pressure 171/82 H 177/98 H 169/72 H Pulse Oximetry 100 100 100 07/25/18 03:00 07/25/18 03:30 07/25/18 04:00 Temperature 98.5 F Pulse Rate 95 H 97 H 91 H Respiratory Rate 32 H 31 H 33 H Blood Pressure 171/79 H 166/79 H Pulse Oximetry 100 100 100 07/25/18 04:03 07/25/18 04:25 07/25/18 04:56 Temperature Pulse Rate 93 H 92 H Respiratory Rate 30 H 30 H Blood Pressure 172/85 H 173/81 H Pulse Oximetry 100 100 98 07/25/18 05:00 07/25/18 05:30 07/25/18 06:00 Temperature Pulse Rate 89 94 H 88 Respiratory Rate 32 H 32 H Blood Pressure 161/89 H 162/85 H Pulse Oximetry 99 100 07/25/18 07:26 07/25/18 08:00 07/25/18 10:00 Temperature Pulse Rate 95 H 92 H 100 H Respiratory Rate 30 H Blood Pressure Pulse Oximetry 100 07/25/18 10:57 Temperature Pulse Rate Respiratory Rate Blood Pressure Pulse Oximetry 100 Intake & Output 07/24/18 07/25/18 07/25/18 18:59 06:59 18:59 Intake Total 100 / 100 1125 / 1125 Output Total 1750 / 1750 950 / 950 Balance -1650 / -1650 175 / 175 Weight 80.2 kg Intake: IV 1125 / 1125 1/2 Normal Saline Inj 1,000 ML 1000 / 1000 @ 30 mls/hr IV.CONT .Q[facility]H [facility] Rx#:[id number] Cardizem Inj 125 MG In NS Inj 125 / 125 100 ML @ 5 MG/HR 5 mls/hr IV. CONT TITRATE PRN Rx#:[id number] Oral 100 / 100 0 / 0 Tube Feeding 0 / 0 Water Bolus Amount 0 / 0 Anesthesia Amount 0 / 0 Output: Urine 800 / 800 Stool 0 / 0 Urine/Stool Mix 0 / 0 Pleural Fluid 0 / 0 Urine Amount (Catheter) 950 / 950 950 / 950 Condom 950 / 950 950 / 950 Other: # Voids 0 Date of Last Bowel Movement 07/22/18 07/25/18 07/25/18 # Bowel Movements 0 1 # Incontinent Bowel Movements 1 Result Diagrams: 07/25/18 05:21 07/24/18 16:24 Other Results: Laboratory Results CBC w Diff Cancelled 07/12/18 10:09 WBC 3.9 th/mm3 (4.0-11.0) L 07/25/18 05:21 Corrected WBC Cancelled 07/12/18 10:09 RBC 3.15 mil/mm3 (4.50-5.90) L 07/25/18 05:21 Hgb 9.9 gm/dL (13.0-17.0) L 07/25/18 05:21 Hct 30.1 % (39.0-51.0) L 07/25/18 05:21 MCV 95.7 fL (80.0-100.0) 07/25/18 05:21 MCH 31.3 pg (27.0-34.0) 07/25/18 05:21 MCHC 32.7 % (32.0-36.0) 07/25/18 05:21 RDW 14.5 % (11.6-17.2) 07/25/18 05:21 Plt Count 68 th/mm3 (150-450) L 07/25/18 05:21 MPV 9.6 fL (7.0-11.0) 07/25/18 05:21 Prelim Diff (Auto) Slide review pending 07/25/18 05:21 Immature Gran % (Auto) Cancelled 07/12/18 10:09 Neut % (Auto) 87.8 % (16.0-70.0) H 07/25/18 05:21 Lymph % (Auto) 5.4 % (9.0-44.0) L 07/25/18 05:21 [place] % (Auto) 6.8 % (0.0-8.0) 07/25/18 05:21 Eos % (Auto) 0.0 % (0.0-4.0) 07/25/18 05:21 Baso % (Auto) 0.0 % (0.0-2.0) 07/25/18 05:21 Immature Gran # (Auto) Cancelled 07/12/18 10:09 Neut # (Auto) 3.4 th/mm3 (1.8-7.7) 07/25/18 05:21 Lymph # (Auto) 0.2 th/mm3 (1.0-4.8) L 07/25/18 05:21 [place] # (Auto) 0.3 th/mm3 (0.0-0.9) 07/25/18 05:21 Eos # (Auto) 0.0 th/mm3 (0.0-0.4) 07/25/18 05:21 Baso # (Auto) 0.0 th/mm3 (0.0-0.2) 07/25/18 05:21 WBC Differential . 07/25/18 05:21 Diff Scan Auto diff confirmed 07/25/18 05:21 Seg Neuts % (Manual) 86 % (16-70) H 07/09/18 09:44 Band Neuts % (Manual) 5 % (0-6) 07/09/18 09:44 Lymphocytes % (Manual) 4 % (9-44) L 07/09/18 09:44 Atypical Lymphs % (Man) Cancelled 07/12/18 10:09 Monocytes % (Manual) 4 % (0-8) 07/09/18 09:44 Eosinophils % (Manual) Cancelled 07/12/18 10:09 Basophils % (Manual) Cancelled 07/12/18 10:09 Metamyelocytes % (Man) 1 % (0-1) 06/26/18 04:04 Myelocytes % (Man) 1 % (0-0) H 07/09/18 09:44 Promyelocytes % (Man) Cancelled 07/12/18 10:09 Blast Cells % (Manual) Cancelled 07/12/18 10:09 Plasma Cell % (Manual) Cancelled 07/12/18 10:09 Other Cells % Cancelled 07/12/18 10:09 Abs Neuts (Manual) 23.8 th/mm3 (1.8-7.7) H 07/09/18 09:44 Nucleated RBCs/100 WBC 2 /100 WBC (0-0) H 07/07/18 04:38 Differential Comment . 07/25/18 05:21 Hypersegmented Neuts Cancelled 07/12/18 10:09 Smudge Cells Cancelled 07/12/18 10:09 Toxic Granulation Cancelled 07/12/18 10:09 Toxic Vacuolation Cancelled 07/12/18 10:09 Dohle Bodies Cancelled 07/12/18 10:09 Platelet Estimate Low (Normal) L 07/25/18 05:21 Platelet Morphology Normal (Normal) 07/25/18 05:21 RBC Morphology Normal (Normal) 07/06/18 03:29 Dimorphic RBCs Cancelled 07/12/18 10:09 Polychromasia Cancelled 07/12/18 10:09 Basophilic Stippling Moderate (None) H 07/24/18 04:43 Spherocytes Cancelled 07/12/18 10:09 Pappenheimer Bodies Cancelled 07/12/18 10:09 Sickle Cells Cancelled 07/12/18 10:09 Target Cells Cancelled 07/12/18 10:09 Tear Drop Cells Cancelled 07/12/18 10:09 Ovalocytes Cancelled 07/12/18 10:09 Stomatocytes 1+ (None) H 07/24/18 04:43 Helmet Cells Cancelled 07/12/18 10:09 [place] Bodies Cancelled 07/12/18 10:09 [place] Cells Cancelled 07/12/18 10:09 Acanthocytes (Spur) Cancelled 07/12/18 10:09 Rouleaux Cancelled 07/12/18 10:09 Keratocytes Cancelled 07/12/18 10:09 Smear Path Review 07/19/18 05:56 Haptoglobin 94 mg/dL (30-200) 07/19/18 15:18 Hematology Comments 07/09/18 09:44 PT 12.0 sec (9.8-11.6) H 07/19/18 15:18 INR 1.2 Ratio 07/19/18 15:18 APTT 31.1 sec (23.4-31.7) 07/19/18 15:18 Fibrinogen 154 mg/dL (227-377) L 07/19/18 15:18 Puncture Site Right radial 07/25/18 04:04 Patient Temperature 98.6 07/25/18 04:04 O2 Saturation 93 % (90-100) 07/25/18 04:04 ABG pH 7.39 (7.380-7.420) 07/25/18 04:04 ABG pCO2 67 mmHg (38-42) H* 07/25/18 04:04 ABG pO2 76 mmHG (61-120) 07/25/18 04:04 ABG HCO3 40 mmol/L (22-26) H 07/25/18 04:04 ABG O2 Content 12.2 Vol % (12.0-20.0) 07/25/18 04:04 ABG Base Excess 14.2 mmol/L (-2-2) H 07/25/18 04:04 ABG Methemoglobin 1.6 % (0-2) 07/25/18 04:04 Raymon Test Present 07/25/18 04:04 Hemoglobin 9.2 G/DL (12.0-16.0) L 07/25/18 04:04 Carboxyhemoglobin 1.4 % (0-4) 07/25/18 04:04 O2 Delivery Device Bipap /+01/2907/25/18 04:04 Liter Flow 2.00 L/M 07/23/18 14:10 Vent Setting 10/+5 07/24/18 15:20 Inspired O2 30 % 07/25/18 04:04 Critical Value Yes 07/25/18 04:04 Sodium 145 meq/L (136-145) 07/24/18 16:24 Potassium 3.7 meq/L (3.5-5.1) 07/24/18 16:24 Chloride 102 meq/L (98-107) 07/24/18 16:24 Carbon Dioxide 39.9 meq/L (21.0-32.0) H 07/24/18 16:24 Anion Gap 3 meq/L (5-15) L 07/24/18 16:24 BUN 22 mg/dL (7-18) H 07/24/18 16:24 Creatinine 0.88 mg/dL (0.60-1.30) 07/24/18 16:24 Estimated GFR Greater than 89 mL/min (>89) 07/24/18 16:24 POC Glucose 230 mg/dl (68-110) H 07/24/18 16:34 Random Glucose 223 mg/dL (74-106) H 07/24/18 16:24 Lactic Acid 0.9 mmol/L (0.4-2.0) 07/14/18 11:05 Calcium 7.2 mg/dL (8.5-10.1) L* 07/24/18 16:24 Prot Corrected Calcium 7.6 mg/dL (8.5-10.1) L 07/24/18 16:24 Phosphorus 1.7 mg/dL (2.5-4.9) L D 07/25/18 05:21 Magnesium 1.4 mg/dL (1.5-2.5) L 07/25/18 05:21 Total Bilirubin 0.6 mg/dL (0.2-1.0) 07/22/18 05:45 AST 25 U/L (15-37) 07/22/18 05:45 ALT 53 U/L (12-78) 07/22/18 05:45 Alkaline Phosphatase 58 U/L (45-117) 07/22/18 05:45 Ammonia Less than 10 mcmol/L (11-32) L 07/03/18 04:30 Lactate Dehydrogenase 436 U/L (87-241) H 07/15/18 12:25 Total Creatine Kinase 205 U/L (39-308) 06/19/18 20:56 CK-MB (CK-2) 2.3 ng/mL (0.5-3.6) 06/19/18 20:56 Troponin I Less than 0.02 ng/mL (0.02-0.05) L 07/03/18 04:30 B-Natriuretic Peptide 32 pg/mL (0-100) 06/23/18 13:32 Total Protein 6.3 g/dL (6.4-8.2) L 07/24/18 16:24 Albumin 4.0 g/dL (3.4-5.0) 07/22/18 05:45 Serotonin Release Assay Negative (NEGATIVE) 07/02/18 05:42 Vitamin B12 855 pg/mL (193-986) 07/02/18 13:27 Folate 12.1 ng/mL (3.1-17.5) 07/02/18 13:27 Procalcitonin 0.67 ng/mL (0.00-0.08) H 07/11/18 02:48 Urine Color Yellow (Yellw/Straw) 07/14/18 21:55 Urine Clarity Hazy (Clear) H 07/14/18 21:55 Urine pH 5.0 (5.0-8.5) 07/14/18 21:55 Ur Specific [place] 1.009 (1.002-1.035) 07/14/18 21:55 Urine Protein 30 mg/dL (Neg-Trace) H 07/14/18 21:55 Urine Glucose (UA) Negative mg/dL (Negative) 07/14/18 21:55 Urine Ketones Trace mg/dL (Negative) H 07/14/18 21:55 Urine Occult Blood Large (Negative) H 07/14/18 21:55 Urine Nitrate Negative (Negative) 07/14/18 21:55 Urine Bilirubin Negative (Negative) 07/14/18 21:55 Urine Urobilinogen Less than 2 mg/dL (Less than 2) 07/14/18 21:55 Ur Leukocyte Esterase Trace (Negative) H 07/14/18 21:55 Urine RBC 4 /hpf (0-3) H 07/14/18 21:55 Urine WBC 3 /hpf (0-5) 07/14/18 21:55 Amorphous Sediment Few /hpf (None) H 07/14/18 21:55 Hyaline Casts 1 /lpf (0-3) 06/27/18 17:00 Urine Mucus Few /lpf (Occasional) H 07/11/18 16:50 Micro UA Comment Cath-culture not ind 07/14/18 21:55 Ur Microscopic Review Not Reportable 07/14/18 21:55 Urine Culture Comments Cath-cult not ind 07/14/18 21:55 Urine Eosinophils None seen /HPF (None Seen) 07/10/18 20:50 Ur Random Creatinine 33 mg/dL (27-300) 07/13/18 13:30 Ur Random Sodium 78 meq/L 07/13/18 13:30 Nasal Screen MRSA (PCR) Not detected (Negative) 06/26/18 12:40 Stl C.difficile DNA Amp Negative (Negative) 07/09/18 00:30 St C. diff Tox Epid 027 Negative (Negative) 07/09/18 00:30 Heparin Dep Plt Ab OD 4.309 U/mL (0.000-1.0) H 06/30/18 11:30 Hep-Induced Plt Ab [place] Positive (Negative) H 06/30/18 11:30 ANNMARIE UFH Low Dose 0.1 3 %release (2.1-21.7) 07/02/18 05:42 ANNMARIE UFH Low Dose 0.5 2 %release (2.1-21.7) 07/02/18 05:42 ANNMARIE UFH High Dose 100 3 %release (2.1-21.7) 07/02/18 05:42 Hep Bs Antibody Less than 3.1 mIU/mL 07/22/18 15:53 Hep B Core IgM Ab Nonreactive (Nonreactive) 07/22/18 15:53 Hepatitis C Antibody Nonreactive (Nonreactive) 07/22/18 15:53 Blood Type O Positive 07/16/18 11:05 Antibody Screen Negative 07/16/18 11:05 MTS Gel Crossmatch See Detail 07/16/18 11:05 Impressions Abdomen Ultrasound 06/21/18 00:00 CONCLUSION: 1. No ascites is identified within the abdomen. Abdomen/Bladder Ultrasound 06/28/18 00:00 CONCLUSION: 1. Echogenic kidneys characteristic of medical renal disease. No hydronephrosis. Bladder decompressed by Moreno Chest CTA 07/02/18 00:00 CONCLUSION: 1. No pulmonary embolus. 2. Diffuse but basilar predominant bilateral airspace disease. 3. Endotracheal and endobronchial secretions are demonstrated. 4. Moderate emphysema. 5. Left ventricular hypertrophy. Abdomen/Pelvis CT 07/10/18 08:31 CONCLUSION: 1. There is gas and fluid distending the colon. The patient has a rectal tube in place however the rectal tube is kinked back on itself and occluded. The overall size of the colon has mildly increased when compared to previous exam. The small bowel is normal in caliber. 2. Interval development of a small left basilar effusion and atelectasis. Venous Doppler Study 07/15/18 00:00 CONCLUSION: 1. Limited suboptimal examination. 2. Nonocclusive thrombus in the jugular vein. Abdomen X-Ray 07/19/18 14:09 CONCLUSION: Negative examination. Chest X-Ray 07/25/18 04:00 CONCLUSION: Previous basilar opacity has resolved. No new infiltrate or effusion. Objective Remarks: GENERAL: Elderly -Fijian male sitting in bed, currently on BiPAP comfortable and calm. SKIN: Warm and dry HEAD: Normocephalic. EYES: PERRL NECK: Supple, trachea midline. Airway widely patent, no obstructive noises CARDIOVASCULAR: Regular rhythm in the high 70s. Currently on Cardizem infusion at 5 mg/now RESPIRATORY: Diminished breath sounds in bases noted .B/Lequal air entry, comfortable respiratory pattern, speaking in complete sentences GASTROINTESTINAL: Abdomen distended and firm, non-tender, no guarding, bowel sounds present MUSCULOSKELETAL: 1+ bilateral upper/ lower extremity edema, warm and well- perfused Neuro: Awake and alert, speaking in complete sentences, no neuro deficits Assessment and Plan - Assessment and Plan Plan: ASSESSMENT: Hypercapnic respiratory failure Acute COPD exacerbation Respiratory acidosis Altered mental status due to CO2 narcosis Acute kidney injury/failure Anemia requiring transfusion Colonic ileus Hypertension Leukocytosis Hyperglycemia COPD Hypomagnesemia Hypokalemia Normocytic anemia Thrombocytopenia Hyperphosphatemia PLAN: NEURO: -Monitor neuro status, avoid sedatives -F/U acetylcholine receptor and autoantibodies RESP: -Extubated 06/29. Reintubated 07/02 extubated again 07/07 -DuoNeb every 4 hours scheduled and butyryl aerosols every 2 hours as needed -Wean methylprednisolone succinate from 40 mg to 20 mg daily -Inhaled budesonide -07/25 chest x-ray noted improvement resolution of bibasilar opacities -Maintain BiPAP 15/5 FiO2 of 35% with exception of male -ABG 7.39/67/76/40/14.2 CV: - Monitor HR and BP keep MAP>65mmHg GI: -Decompressive colonoscopy by Dr. Berrios performed on 07/15/2018. -KUB 07/14: Ileus. Get follow-up KUB stat -KUB 07/13: Stable nonobstructive colonic distention. Given Neostigmine 07/11. -s/p repeat decompressive colonoscopy 07/10 and 07/15 -Continue Protonix secondary to thrombocytopenia, avoid famotidine -On docusate sodium/senna 1 tablet twice daily, lactulose 30 cc 4 times daily -07/25 begin clear liquid diet, will reinstitute BiPAP 1 hour post consumption of clear liquid diet FEN/: -Monitor renal function, I/O's, avoid nephrotoxins -Renal function continues to improve- Cr: 0.9 -Begin D5 1/2 NSS @ 30cc/hr -Renal- Dr. Figueroa ID: -Off abx monitor for signs of infections (Fever, WBC) WBC stable -BC and urine cx from 07/11- NG in 5 days -07/02 BC: NGTS, sputum cx 07/02:normal resp justyn -ID is following- Dr. Brown PRN HEME: -Monitor CBC, coags, Hep PLT is positive. ANNMARIE negative. Hematology is following. Off argatroban drip -s/p 2U PRBCs on 07/16, Hgb 8.8, used for hemoglobin less than 7 -Stable thrombocytopenia-avoid medications that precipitate thrombocytopenia -Strict bedrest for now ENDO: -Electrolyte replacement per protocol -Sliding scale insulin medium scale PROPH: -Bilateral lower extremity SCDs. PPI -Doppler US LE negative DVT 07/02 LINES: -Utilize peripheral IVs Overall impression: Elderly man with severe emphysema and quite marginal respiratory status. His somnolence has resolved and he is moving air well. Continue BiPAP noninvasive ventilation with exception of meals. Extensive discussion with patient is at risk for possible intubation and subsequent tracheostomy all questions answered. Level 3
[2018-07-25] MEDS ORDERED: Magnesium Sulfate Inj 4 GM in Sodium Chlor 0.9% Inj 92 ML IV.SIG PRN (12:36)
[2018-07-25] MEDS ORDERED: Potassium Phosphate Inj 30 MMOL in Sodium Chlor 0.9% Inj 250 ML IV.SIG PRN (12:36)
[2018-07-25] MEDS ORDERED: Potassium Chlor 20 mEq Premix 20 MEQ/100 ML PIGGYBACK IV.SIG PRN (12:36)
[2018-07-25] MEDS ORDERED: Potassium Chlor 40 mEq Premix 40 MEQ/100 ML PIGGYBACK IV.SIG PRN ×2 (12:36)
[2018-07-25] MEDS ORDERED: Potassium Phosphate 500 MG Soluble Tablet PO PRN (12:36)
[2018-07-25] MEDS ORDERED: Magnesium Oxide 400 MG Tablet PO PRN (12:36)
[2018-07-25] MEDS ORDERED: Sodium Phosphate Inj 30 MMOL in Sodium Chlor 0.9% Inj 250 ML IV.SIG PRN (12:36)
[2018-07-25] MEDS ORDERED: Sodium Glycerophosphate Inj 30 MMOL in Sodium Chlor 0.9% Inj 250 ML IV.SIG PRN (13:00)
[2018-07-25] MEDS: Magnesium Sulfate Inj 2 GM in Sodium Chlor 0.9% Inj 96 ML IV.SIG PRN (13:15)
--- NOTE | 2018-07-25 15:29 | P.PNPL ---
Subjective Interval history: 73 YOAA male with COPD, 02 dependent Follows at [facility] Admitted with AMS, COPD exac On BIPAP, gets agitated Physical Exam Vital signs: Vital Signs 07/24/18 15:30 07/24/18 16:00 07/24/18 16:30 Temperature 98.7 F Pulse Rate 89 95 H 82 Respiratory Rate 18 27 H 15 Blood Pressure 164/70 H 158/78 H 131/58 L Pulse Oximetry 98 100 98 07/24/18 16:37 07/24/18 17:00 07/24/18 17:30 Temperature Pulse Rate 86 90 Respiratory Rate 32 H 34 H Blood Pressure 140/63 128/66 Pulse Oximetry 100 100 100 07/24/18 18:00 07/24/18 18:30 07/24/18 19:00 Temperature Pulse Rate 75 86 83 Respiratory Rate 21 21 28 H Blood Pressure 126/60 122/61 134/67 Pulse Oximetry 98 99 100 07/24/18 19:30 07/24/18 19:52 07/24/18 19:57 Temperature Pulse Rate 90 87 Respiratory Rate 35 H 22 Blood Pressure 141/68 H Pulse Oximetry 100 100 07/24/18 20:00 07/24/18 20:01 07/24/18 20:31 Temperature 98.2 F Pulse Rate 96 H 96 H 95 H Respiratory Rate 33 H 35 H 29 H Blood Pressure 158/76 H 157/75 H Pulse Oximetry 100 100 100 07/24/18 21:00 07/24/18 21:30 07/24/18 22:00 Temperature Pulse Rate 84 92 H 95 H Respiratory Rate 30 H 27 H 29 H Blood Pressure 144/67 H 142/65 H Pulse Oximetry 98 99 100 07/24/18 22:01 07/24/18 22:41 07/24/18 23:00 Temperature Pulse Rate 93 H 89 91 H Respiratory Rate 24 27 H 29 H Blood Pressure 167/78 H 141/69 H 151/79 H Pulse Oximetry 100 100 99 07/24/18 23:31 07/25/18 00:00 07/25/18 00:07 Temperature 98.8 F Pulse Rate 99 H 97 H Respiratory Rate 31 H 29 H Blood Pressure 157/79 H 159/80 H Pulse Oximetry 100 100 100 07/25/18 00:30 07/25/18 01:00 07/25/18 01:27 Temperature Pulse Rate 89 95 H Respiratory Rate 35 H 27 H Blood Pressure 154/100 H 163/80 H Pulse Oximetry 96 100 100 07/25/18 01:30 07/25/18 02:00 07/25/18 02:04 Temperature Pulse Rate 101 H 97 H 98 H Respiratory Rate 33 H 31 H 31 H Blood Pressure 164/88 H 166/80 H 171/82 H Pulse Oximetry 100 100 100 07/25/18 02:31 07/25/18 02:33 07/25/18 03:00 Temperature Pulse Rate 91 H 101 H 95 H Respiratory Rate 32 H 34 H 32 H Blood Pressure 177/98 H 169/72 H 171/79 H Pulse Oximetry 100 100 100 07/25/18 03:30 07/25/18 04:00 07/25/18 04:03 Temperature 98.5 F Pulse Rate 97 H 91 H 93 H Respiratory Rate 31 H 33 H 30 H Blood Pressure 166/79 H 172/85 H Pulse Oximetry 100 100 100 07/25/18 04:25 07/25/18 04:56 07/25/18 05:00 Temperature Pulse Rate 92 H 89 Respiratory Rate 30 H 32 H Blood Pressure 173/81 H 161/89 H Pulse Oximetry 100 98 99 07/25/18 05:30 07/25/18 06:00 07/25/18 07:26 Temperature Pulse Rate 94 H 88 95 H Respiratory Rate 32 H 30 H Blood Pressure 162/85 H Pulse Oximetry 100 100 07/25/18 08:00 07/25/18 10:00 07/25/18 10:57 Temperature Pulse Rate 92 H 100 H Respiratory Rate Blood Pressure Pulse Oximetry 100 Intake & Output 07/24/18 07/25/18 07/25/18 18:59 06:59 18:59 Intake Total 100 / 100 1125 / 1125 Output Total 1750 / 1750 950 / 950 Balance -1650 / -1650 175 / 175 Weight 80.2 kg Intake: IV 1125 / 1125 1/2 Normal Saline Inj 1,000 ML 1000 / 1000 @ 30 mls/hr IV.CONT .Q24H [facility] Rx#:[id number] Cardizem Inj 125 MG In NS Inj 125 / 125 100 ML @ 5 MG/HR 5 mls/hr IV. CONT TITRATE PRN Rx#:[id number] Oral 100 / 100 0 / 0 Tube Feeding 0 / 0 Water Bolus Amount 0 / 0 Anesthesia Amount 0 / 0 Output: Urine 800 / 800 Stool 0 / 0 Urine/Stool Mix 0 / 0 Pleural Fluid 0 / 0 Urine Amount (Catheter) 950 / 950 950 / 950 Condom 950 / 950 950 / 950 Other: # Voids 0 Date of Last Bowel Movement 07/22/18 07/25/18 07/25/18 # Bowel Movements 0 1 # Incontinent Bowel Movements 1 GENERAL: Obese AA male, on BIPAP SKIN: Warm and dry. HEAD: Normocephalic. EYES: No scleral icterus. No injection or drainage. NECK: Supple, trachea midline. No JVD or lymphadenopathy. CARDIOVASCULAR: Regular rate and rhythm without murmurs, gallops, or rubs. RESPIRATORY: Breath sounds equal bilaterally. No accessory muscle use. GASTROINTESTINAL: Abdomen soft, non-tender, distended. MUSCULOSKELETAL: No cyanosis, or edema. BACK: Nontender without obvious deformity. No CVA tenderness. 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 Abdomenal distension, s/p decompression. PLAN: Cont BIPAP Aerosol nebs Supplement 02 Solumedrol 20 mg q day Monitor BS
[2018-07-25] MEDS: Haloperidol Inj 5 MG/ML Ampul IV.PUSH PRN (22:29)
[2018-07-25] MEDS: Sodium Chloride 0.45 % Inj 1,000 ML IV.CONT SCH (23:44)
[2018-07-25 23:53] LABS: Hepatitis A Antibody Total NONREACTIVE; Hepatitis Be Antigen NONREACTIVE
[2018-07-26] MEDS: Pantoprazole Inj 40 MG Vial IV.PUSH SCH ×2 (03:22→13:48)
[2018-07-26 07:08] LABS: Baso % (Auto) 0.1 % (0.0-2.0); Hematocrit 27.1 % (39.0-51.0); Hemoglobin 9.1 gm/dL (13.0-17.0); Lymph # (Auto) 0.2 th/mm3 (1.0-4.8); Mean Corpuscular HGB Conc 33.6 % (32.0-36.0); Mean Corpuscular Hemoglobin 31.5 pg (27.0-34.0); Mean Corpuscular Volume 93.7 fL (80.0-100.0); Mean Platelet Volume 9.8 fL (7.0-11.0); Mono # (Auto) 0.3 th/mm3 (0.0-0.9); Mono % (Auto) 6.6 % (0.0-8.0); Neut # (Auto) 3.5 th/mm3 (1.8-7.7); Neut % (Auto) 88.3 % (16.0-70.0); Platelet Count 82 th/mm3 (150-450); Red Blood Count 2.89 mil/mm3 (4.50-5.90)
[2018-07-26 07:19] LABS: Anion Gap 6 meq/L (5-15); Blood Urea Nitrogen 17 mg/dL (7-18); Calcium 7.3 mg/dL (8.5-10.1); Carbon Dioxide 41.3 meq/L (21.0-32.0); Chloride 97 meq/L (98-107); Glomerular Filtration Rate Greater Than 89 mL/min (>89); Glucose,Random 281 mg/dL (74-106); Magnesium 1.4 mg/dL (1.5-2.5); Phosphorus 2.9 mg/dL (2.5-4.9); Potassium 3.5 meq/L (3.5-5.1); Sodium 144 meq/L (136-145)
[2018-07-26 07:44] LABS: Calcium-Albumin Corrected 7.6 mg/dL (8.5-10.1); Total Protein 6.5 g/dL (6.4-8.2)
[2018-07-26] MEDS: dilTIAZem 60 MG Tablet PO SCH ×4 (08:22→21:09)
[2018-07-26] MEDS: MethylPREDNISolone Sod Succinate Inj 40 MG/ML Vial IV.PUSH SCH (08:22)
[2018-07-26] MEDS: Artificial Tears Opth Drops 15 ML Bottle EACH EYE SCH ×2 (08:23→20:13)
[2018-07-26] MEDS: Bisacodyl 10 MG Supp RECTAL SCH (08:23)
[2018-07-26] MEDS: Methylnaltrexone Inj 12 MG/0.6 ML Vial SQ SCH (08:23)
[2018-07-26] MEDS: Magnesium Sulfate Inj 2 GM in Sodium Chlor 0.9% Inj 96 ML IV.SIG PRN (09:48)
[2018-07-26] MEDS: Potassium Chloride 25 MEQ Effervescent Tablet PO PRN (09:48)
[2018-07-26 10:08] LABS: Platelet Morphology Normal (Normal)
--- NOTE | 2018-07-26 15:20 | P.PNPL ---
Subjective Interval history: 73 YOAA male with COPD, 02 dependent Follows at [facility] Admitted with AMS, COPD exac On high flow 02 Takes off 02 Mild sob Physical Exam Vital signs: Vital Signs 07/25/18 16:00 07/25/18 16:16 07/25/18 17:00 Temperature 97.7 F Pulse Rate 100 H 84 Respiratory Rate 39 H 36 H Blood Pressure 148/84 H Pulse Oximetry 100 100 99 07/25/18 17:01 07/25/18 18:00 07/25/18 19:00 Temperature Pulse Rate 84 86 87 Respiratory Rate 29 H 32 H 35 H Blood Pressure 148/70 H 149/75 H 140/70 Pulse Oximetry 100 100 07/25/18 20:00 07/25/18 20:01 07/25/18 20:38 Temperature 97.4 F L Pulse Rate 83 83 Respiratory Rate 25 H 30 H Blood Pressure 160/74 H Pulse Oximetry 88 L 79 L 100 07/25/18 20:40 07/25/18 21:00 07/25/18 21:01 Temperature Pulse Rate 76 77 75 Respiratory Rate 25 H 20 18 Blood Pressure 146/66 H Pulse Oximetry 100 98 07/25/18 21:12 07/25/18 22:00 07/25/18 23:00 Temperature Pulse Rate 77 77 Respiratory Rate 23 17 Blood Pressure 140/65 124/58 L Pulse Oximetry 100 95 93 L 07/26/18 00:00 07/26/18 00:01 07/26/18 00:31 Temperature 97.5 F L Pulse Rate 79 78 Respiratory Rate 35 H 30 H Blood Pressure 146/70 H Pulse Oximetry 97 98 96 07/26/18 01:00 07/26/18 02:00 07/26/18 03:00 Temperature Pulse Rate 77 71 81 Respiratory Rate 33 H 23 31 H Blood Pressure 149/69 H 128/70 Pulse Oximetry 94 L 98 98 07/26/18 03:01 07/26/18 04:00 07/26/18 05:00 Temperature 97.4 F L Pulse Rate 79 75 75 Respiratory Rate 36 H 25 H 15 Blood Pressure 161/72 H 144/70 H 143/67 H Pulse Oximetry 100 96 95 07/26/18 06:00 07/26/18 06:03 07/26/18 06:30 Temperature Pulse Rate 83 83 92 H Respiratory Rate 25 H 27 H 29 H Blood Pressure 169/79 H 157/114 H Pulse Oximetry 94 L 94 L 90 L 07/26/18 06:32 07/26/18 07:00 07/26/18 07:30 Temperature Pulse Rate 87 87 87 Respiratory Rate 23 18 21 Blood Pressure 154/75 H 164/80 H 156/72 H Pulse Oximetry 95 99 96 07/26/18 08:00 07/26/18 10:00 Temperature 98 F Pulse Rate 93 H 80 Respiratory Rate 20 Blood Pressure 157/80 H Pulse Oximetry 95 Intake & Output 07/25/18 07/26/18 07/26/18 18:59 06:59 18:59 Intake Total 1060 / 1060 1240 / 1240 100 / 100 Output Total 1550 / 1550 1225 / 1225 Balance -490 / -490 15 / 15 100 / 100 Weight 79.9 kg Intake: IV 100 / 100 1000 / 1000 100 / 100 1/2 Normal Saline Inj 1,000 ML 1000 / 1000 @ 30 mls/hr IV.CONT .Q24H [facility] Rx#:[id number] Magnesium Sulfate Inj 2 GM In 100 / 100 100 / 100 NS Inj 96 ML @ 50 mls/hr IV.SIG UNSCH PRN Rx#:[id number] Oral 960 / 960 240 / 240 Tube Feeding 0 / 0 Tube Irrigant 0 / 0 Water Bolus Amount 0 / 0 Anesthesia Amount 0 / 0 Output: Urine 1550 / 1550 0 / 0 Stool 0 / 0 Urine/Stool Mix 0 / 0 Pleural Fluid 0 / 0 Urine Amount (Catheter) 1225 / 1225 Condom 1225 / 1225 Gastric Drainage 0 / 0 Right Nare Nasogastric Tube 0 / 0 Other: # Voids 0 # Incontinent Voids 0 Date of Last Bowel Movement 07/25/18 07/26/18 07/26/18 # Bowel Movements 1 1 # Incontinent Bowel Movements 1 GENERAL: Obese AA male, NAD SKIN: Warm and dry. HEAD: Normocephalic. EYES: No scleral icterus. No injection or drainage. NECK: Supple, trachea midline. No JVD or lymphadenopathy. CARDIOVASCULAR: Regular rate and rhythm without murmurs, gallops, or rubs. RESPIRATORY: Breath sounds equal bilaterally. No accessory muscle use. GASTROINTESTINAL: Abdomen soft, non-tender, distended. MUSCULOSKELETAL: No cyanosis, or edema. BACK: Nontender without obvious deformity. No CVA tenderness. 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 Abdomenal distension, s/p decompression. PLAN: High flow 02 to keep sat 88-92% BIPAP prn Aerosol nebs Supplement 02 Solumedrol 20 mg q day Monitor BS
[2018-07-26 16:08] LABS: ABG Base Excess 16.1 mmol/L (-2-2); ABG PCO2 58 mmHg (38-42); ABG PO2 46 mmHG (61-120)
[2018-07-26] MEDS ORDERED: fentaNYL Citrate Inj 250 MCG/5 ML Ampul IV.PUSH ONE (16:26)
[2018-07-26] MEDS ORDERED: Succinylcholine Inj 100 MG/5 ML Syringe IV.PUSH ONE (16:28)
[2018-07-26] MEDS ORDERED: Propofol Inj 500 MG/50 ML Vial ONE (16:38)
[2018-07-26] MEDS ORDERED: Succinylcholine Inj 200 MG/10 ML Vial IV.PUSH ONE (17:00)
[2018-07-26] MEDS ORDERED: Propofol Inj 500 MG/50 ML Vial IV.PUSH ONE (17:00)
--- NOTE | 2018-07-26 17:23 | P.PNCC ---
Subjective Subjective Remarks/Hospital Course: Mr. Curry is a 73-year-old -[place] male with past medical history significant for COPD on 3 L nasal cannula, hypertension, hyperlipidemia and anxiety who was admitted to the hospitalist service on 06/19/2018 for worsening shortness of breath due to COPD exacerbation. He was treated with IV Solu- Medrol, IV antibiotics, breathing treatments gradually improved. Patient was also complaining about dyspepsia and underwent EGD by GI yesterday. Per report the EGD was normal but patient developed worsening shortness of breath and COPD exacerbation postprocedure, possibly from aspiration after sedated. Two ABGs done yesterday showed hypercapnic respiratory failure second 1 was on BiPAP and this was improved with pH 7.3 with PCO2 of 74. Patient remained on BiPAP overnight however was noticed to be lethargic today a.m., stat ABG showed pH of 7.21 PCO2 110 PO2 88 while on BiPAP. Patient was lethargic intermittently dozing off due to CO2 narcosis. Critical care medicine was consulted and I immediately evaluated the patient. Patient had obviously failed BiPAP I proceeded with endotracheal intubation placed on mechanical ventilation. Postintubation I have ordered single dose of Solu-Medrol 125 mg x1 continue Solu -Medrol 60 every 8, discontinue ceftriaxone and start cefepime 2 g IV every 8 hours continue azithromycin. Add budesonide inhaled, placed on scheduled DuoNeb every 4 hours and as needed. 06/27: Patient was intubated yesterday for severe hypercapnic respiratory failure. Currently remains intubated sedated and intubated remains diminished bilaterally. Heavily sedated for ventilator synchrony 06/28: Urine output significantly improved with fluid resuscitation. Creat down trending now 2 from 2.3, UO >3.3 L. Remains intubated sedated. Will initiate daily sedation vacation and CPAP trials 06/29: More awake today tolerating CPAP trials intermittently follows commands but gets agitated/frustrated fast. Urine output remains excellent creatinine 1.4. However sodium increasing 158 today. Night solar sales ambassador had changed fluid to D5 W for free water replacement. Due to hypoglycemia will change to quarter normal saline at 150 mL/h repeat CMP in the afternoon 06/30 Patient was extubated yesterday. Awake 07/01 Patient is lying in bed in NAD. T: 100.5 07/02: Intubated early this morning due to acute hypoxic respiratory failure. Central line placed due to hypotension. Plan for GI perform endoscopic decompression of this large bowel today. Arousable and does follow commands. Placed on argatroban 07/03: Currently, intubated with borderline blood pressure. Central line placed yesterday due to hypotension. Did not move bowels despite 1 L of fluid from colonoscopy yesterday and multiple laxatives provided. See orders for additional laxatives today. Might need neostigmine. 07/04 Patient remains intubated and sedated with Diprivan. Given Neostigmine last night. KUB this morning showed colonic ileus. Afebrile. On Argatroban. 07/05 No events overnight, sedated with Diprivan and intubated. Off Argatroban. 07/06 Patient remains intubated and sedated. Afebrile. 07/07 Patient remains intubated, s/p decompressive colonoscopy yesterday. Awake. 07/08 Patient s/p extubation yesterday. Awake and alert. 07/09 Patient is awake, alert lying in bed in NAD. Afebrile. 07/10 Patient is awake and alert, Afebrile. 07/11 Patient s/p decompressive colonoscopy yesterday. Afebrile. On Lasix drip.( UOP: 2800ml overnight). Cr: 3.0 from 2.25. 07/12 Patient is awake, alert given Neostigmine overnight. NGT to LIWS, off Lasix drip. 07/13: Resting comfortably in bed in no acute distress. 3 bowel movements documented. Remains n.p.o. Bladder pressures around 6. Potassium being replaced. Remains anemic around 7. 07/14 Patient is lying in bed in NAD. Afebrile. 07/15 No events overnight. Afebrile. 07/16: Resting in bed mild distress. Abdomen remains distended. Hemoglobin has dropped to 6.2 2 units of PRBC ordered. Patient underwent decompressive colonoscopy by Dr. Berrios for colonic ileus 07/17: No significant overnight events, patient states that he wants to get out of bed to a chair as he is having rectal discomfort. 07/18: Patient reportedly had a BM after digital rectal exam yesterday, states that he's been passing flatus "every now and then" overnight. No plans for OR or sigmoidoscopy as per colorectal service, OK to transfer out of [facility]. 07/19: Patient transferred to [facility] yesterday, complained of shortness of breath again today. An ABG showed a pCO2 of 79 so he was placed on bipap and transferred to [facility]. Most recent ABG shows pCO2 of 66, KUB still has abdominal distension but appears to be improved when compared to KUB from 07/15. Patient has reportedly been having bowel movements and passing flatus overnight. 07/20: No dramatic improvement in abdominal distention however abdomen soft. The patient was able to breathe comfortably overnight and remained alert. This morning the BiPAP mask was removed for half an hour and the patient did well without evidence of CO2 retention or somnolence. Reconsult note 07/23: The patient was a halicat from the [facility] floor. Patient was noted to be somnolent, had difficulty breathing. Stat ABG was performed revealing a PCO2 of 113. The patient was placed on BiPAP and transferred to [facility]. Currently remains on CPAP respiratory rate is 25 , 16/5 with an FiO2 35%. 07/24: Overnight the patient was placed on BiPAP 10/5 refusing BiPAP pulling out IVs. The patient became tachycardic refusing p.o. medications. The patient was placed on a Cardizem infusion currently at 5 mg an hour. Patient is more compliant at this time the patient's BiPAP settings were increased to 15 /5 35% stat ABGs were ordered the patient was noted to have a PCO2 of 89, continues with hypercapnic respiratory failure in the setting of severe COPD. Extensive discussion with family at bedside the patient's sister and daughter provided medical status update on recent transfer to ICU and current standing. Inform family that patient is at risk for for emergent intubation. Repeat ABG pending this evening. 07/25: Patient noted to have episodes of agitation continually removing BiPAP. I discussed with patient the criticality of his illness and possible intubation patient now agrees to wear BiPAP with exception of meals. Patient's diet was advanced to clear liquid noted improvement of chest x-ray patient is noted to have last bowel movement approximately 2 days ago we will continue to monitor and follow-up GI recommendations . Noted electrolyte repletion at this time. PCO2 now in the 60s. 07/26: Patient continues to be noncompliant with BiPAP mask. ABGs obtained noting a PO2 of 45.6. The patient was emergently intubated this afternoon. Chest x-ray and repeat ABG pending at this time. Noted patient's last bowel movement last night. Objective Vital Signs / I&O: Vital Signs 07/25/18 18:00 07/25/18 19:00 07/25/18 20:00 Temperature 97.4 F L Pulse Rate 86 87 83 Respiratory Rate 32 H 35 H 25 H Blood Pressure 149/75 H 140/70 Pulse Oximetry 100 88 L 07/25/18 20:01 07/25/18 20:38 07/25/18 20:40 Temperature Pulse Rate 83 76 Respiratory Rate 30 H 25 H Blood Pressure 160/74 H Pulse Oximetry 79 L 100 07/25/18 21:00 07/25/18 21:01 07/25/18 21:12 Temperature Pulse Rate 77 75 Respiratory Rate 20 18 Blood Pressure 146/66 H Pulse Oximetry 100 98 100 07/25/18 22:00 07/25/18 23:00 07/26/18 00:00 Temperature 97.5 F L Pulse Rate 77 77 79 Respiratory Rate 23 17 35 H Blood Pressure 140/65 124/58 L Pulse Oximetry 95 93 L 97 07/26/18 00:01 07/26/18 00:31 07/26/18 01:00 Temperature Pulse Rate 78 77 Respiratory Rate 30 H 33 H Blood Pressure 146/70 H 149/69 H Pulse Oximetry 98 96 94 L 07/26/18 02:00 07/26/18 03:00 07/26/18 03:01 Temperature Pulse Rate 71 81 79 Respiratory Rate 23 31 H 36 H Blood Pressure 128/70 161/72 H Pulse Oximetry 98 98 100 07/26/18 04:00 07/26/18 05:00 07/26/18 06:00 Temperature 97.4 F L Pulse Rate 75 75 83 Respiratory Rate 25 H 15 25 H Blood Pressure 144/70 H 143/67 H Pulse Oximetry 96 95 94 L 07/26/18 06:03 07/26/18 06:30 07/26/18 06:32 Temperature Pulse Rate 83 92 H 87 Respiratory Rate 27 H 29 H 23 Blood Pressure 169/79 H 157/114 H 154/75 H Pulse Oximetry 94 L 90 L 95 07/26/18 07:00 07/26/18 07:30 07/26/18 08:00 Temperature 98 F Pulse Rate 87 87 93 H Respiratory Rate 18 21 20 Blood Pressure 164/80 H 156/72 H 157/80 H Pulse Oximetry 99 96 95 07/26/18 10:00 Temperature Pulse Rate 80 Respiratory Rate Blood Pressure Pulse Oximetry Intake & Output 07/25/18 07/26/18 07/26/18 18:59 06:59 18:59 Intake Total 1060 / 1060 1240 / 1240 100 / 100 Output Total 1550 / 1550 1225 / 1225 Balance -490 / -490 15 / 15 100 / 100 Weight 79.9 kg Intake: IV 100 / 100 1000 / 1000 100 / 100 1/2 Normal Saline Inj 1,000 ML 1000 / 1000 @ 30 mls/hr IV.CONT .Q24H WOLF Rx#:[id number] Magnesium Sulfate Inj 2 GM In 100 / 100 100 / 100 NS Inj 96 ML @ 50 mls/hr IV.SIG UNSCH PRN Rx#:[id number] Oral 960 / 960 240 / 240 Tube Feeding 0 / 0 Tube Irrigant 0 / 0 Water Bolus Amount 0 / 0 Anesthesia Amount 0 / 0 Output: Urine 1550 / 1550 0 / 0 Stool 0 / 0 Urine/Stool Mix 0 / 0 Pleural Fluid 0 / 0 Urine Amount (Catheter) 1225 / 1225 Condom 1225 / 1225 Gastric Drainage 0 / 0 Right Nare Nasogastric Tube 0 / 0 Other: # Voids 0 # Incontinent Voids 0 Date of Last Bowel Movement 07/25/18 07/26/18 07/26/18 # Bowel Movements 1 1 # Incontinent Bowel Movements 1 Result Diagrams: 07/26/18 05:42 11/24/18 05:42 Other Results: Laboratory Results CBC w Diff Cancelled 07/12/18 10:09 WBC 4.0 th/mm3 (4.0-11.0) 07/26/18 05:42 Corrected WBC Cancelled 07/12/18 10:09 RBC 2.89 mil/mm3 (4.50-5.90) L 07/26/18 05:42 Hgb 9.1 gm/dL (13.0-17.0) L 07/26/18 05:42 Hct 27.1 % (39.0-51.0) L 07/26/18 05:42 MCV 93.7 fL (80.0-100.0) 07/26/18 05:42 MCH 31.5 pg (27.0-34.0) 07/26/18 05:42 MCHC 33.6 % (32.0-36.0) 07/26/18 05:42 RDW 15.0 % (11.6-17.2) 07/26/18 05:42 Plt Count 82 th/mm3 (150-450) L 07/26/18 05:42 MPV 9.8 fL (7.0-11.0) 07/26/18 05:42 Prelim Diff (Auto) Slide review pending 07/26/18 05:42 Immature Gran % (Auto) Cancelled 07/12/18 10:09 Neut % (Auto) 88.3 % (16.0-70.0) H 07/26/18 05:42 Lymph % (Auto) 5.0 % (9.0-44.0) L 07/26/18 05:42 Ross % (Auto) 6.6 % (0.0-8.0) 07/26/18 05:42 Eos % (Auto) 0.0 % (0.0-4.0) 07/26/18 05:42 Baso % (Auto) 0.1 % (0.0-2.0) 07/26/18 05:42 Immature Gran # (Auto) Cancelled 07/12/18 10:09 Neut # (Auto) 3.5 th/mm3 (1.8-7.7) 07/26/18 05:42 Lymph # (Auto) 0.2 th/mm3 (1.0-4.8) L 07/26/18 05:42 Ross # (Auto) 0.3 th/mm3 (0.0-0.9) 07/26/18 05:42 Eos # (Auto) 0.0 th/mm3 (0.0-0.4) 07/26/18 05:42 Baso # (Auto) 0.0 th/mm3 (0.0-0.2) 07/26/18 05:42 WBC Differential . 07/26/18 05:42 Diff Scan Auto diff confirmed 07/26/18 05:42 Seg Neuts % (Manual) 86 % (16-70) H 07/09/18 09:44 Band Neuts % (Manual) 5 % (0-6) 07/09/18 09:44 Lymphocytes % (Manual) 4 % (9-44) L 07/09/18 09:44 Atypical Lymphs % (Man) Cancelled 07/12/18 10:09 Monocytes % (Manual) 4 % (0-8) 07/09/18 09:44 Eosinophils % (Manual) Cancelled 07/12/18 10:09 Basophils % (Manual) Cancelled 07/12/18 10:09 Metamyelocytes % (Man) 1 % (0-1) 06/26/18 04:04 Myelocytes % (Man) 1 % (0-0) H 07/09/18 09:44 Promyelocytes % (Man) Cancelled 07/12/18 10:09 Blast Cells % (Manual) Cancelled 07/12/18 10:09 Plasma Cell % (Manual) Cancelled 07/12/18 10:09 Other Cells % Cancelled 07/12/18 10:09 Abs Neuts (Manual) 23.8 th/mm3 (1.8-7.7) H 07/09/18 09:44 Nucleated RBCs/100 WBC 2 /100 WBC (0-0) H 07/07/18 04:38 Differential Comment . 07/26/18 05:42 Hypersegmented Neuts Cancelled 07/12/18 10:09 Smudge Cells Cancelled 07/12/18 10:09 Toxic Granulation Cancelled 07/12/18 10:09 Toxic Vacuolation Cancelled 07/12/18 10:09 Dohle Bodies Cancelled 07/12/18 10:09 Platelet Estimate Low (Normal) L 07/26/18 05:42 Platelet Morphology Normal (Normal) 07/26/18 05:42 RBC Morphology Normal (Normal) 07/06/18 03:29 Dimorphic RBCs Cancelled 07/12/18 10:09 Polychromasia Cancelled 07/12/18 10:09 Basophilic Stippling Moderate (None) H 07/24/18 04:43 Spherocytes Cancelled 07/12/18 10:09 Pappenheimer Bodies Cancelled 07/12/18 10:09 Sickle Cells Cancelled 07/12/18 10:09 Target Cells Cancelled 07/12/18 10:09 Tear Drop Cells Cancelled 07/12/18 10:09 Ovalocytes Cancelled 07/12/18 10:09 Stomatocytes 1+ (None) H 07/24/18 04:43 Helmet Cells Cancelled 07/12/18 10:09 Carlson-Penndel Bodies Cancelled 07/12/18 10:09 Whitefield Cells Cancelled 07/12/18 10:09 Acanthocytes (Spur) Cancelled 07/12/18 10:09 Rouleaux Cancelled 07/12/18 10:09 Keratocytes Cancelled 07/12/18 10:09 Smear Path Review 07/19/18 05:56 Haptoglobin 94 mg/dL (30-200) 07/19/18 15:18 Hematology Comments 07/09/18 09:44 PT 12.0 sec (9.8-11.6) H 07/19/18 15:18 INR 1.2 Ratio 07/19/18 15:18 APTT 31.1 sec (23.4-31.7) 07/19/18 15:18 Fibrinogen 154 mg/dL (227-377) L 07/19/18 15:18 Puncture Site Right radial 07/26/18 15:55 Patient Temperature 98.6 07/26/18 15:55 O2 Saturation 83 % (90-100) L* 07/26/18 15:55 ABG pH 7.46 (7.380-7.420) H 07/26/18 15:55 ABG pCO2 58 mmHg (38-42) H* 07/26/18 15:55 ABG pO2 46 mmHG (61-120) L* 07/26/18 15:55 ABG HCO3 41 mmol/L (22-26) H 07/26/18 15:55 ABG O2 Content 10.8 Vol % (12.0-20.0) L 07/26/18 15:55 ABG Base Excess 16.1 mmol/L (-2-2) H 07/26/18 15:55 ABG Methemoglobin 1.8 % (0-2) 07/26/18 15:55 Raymon Test Present 07/26/18 15:55 Hemoglobin 9.3 G/DL (12.0-16.0) L 07/26/18 15:55 Carboxyhemoglobin 1.5 % (0-4) 07/26/18 15:55 O2 Delivery Device High flow 07/26/18 15:55 Liter Flow 30.00 L/M 07/26/18 15:55 Vent Setting 10/+5 07/24/18 15:20 Inspired O2 21 % 07/26/18 15:55 Critical Value Yes 07/26/18 15:55 Sodium 144 meq/L (136-145) 07/26/18 05:42 Potassium 3.5 meq/L (3.5-5.1) 07/26/18 05:42 Chloride 97 meq/L (98-107) L 07/26/18 05:42 Carbon Dioxide 41.3 meq/L (21.0-32.0) H 07/26/18 05:42 Anion Gap 6 meq/L (5-15) 07/26/18 05:42 BUN 17 mg/dL (7-18) 07/26/18 05:42 Creatinine 0.82 mg/dL (0.60-1.30) 07/26/18 05:42 Estimated GFR Greater than 89 mL/min (>89) 07/26/18 05:42 POC Glucose 230 mg/dl (68-110) H 07/24/18 16:34 Random Glucose 281 mg/dL (74-106) H 07/26/18 05:42 Lactic Acid 0.9 mmol/L (0.4-2.0) 07/14/18 11:05 Calcium 7.3 mg/dL (8.5-10.1) L* 07/26/18 05:42 Prot Corrected Calcium 7.6 mg/dL (8.5-10.1) L 07/26/18 05:42 Phosphorus 2.9 mg/dL (2.5-4.9) D 07/26/18 05:42 Magnesium 1.4 mg/dL (1.5-2.5) L 07/26/18 05:42 Total Bilirubin 0.6 mg/dL (0.2-1.0) 07/22/18 05:45 AST 25 U/L (15-37) 07/22/18 05:45 ALT 53 U/L (12-78) 07/22/18 05:45 Alkaline Phosphatase 58 U/L (45-117) 07/22/18 05:45 Ammonia Less than 10 mcmol/L (11-32) L 07/03/18 04:30 Lactate Dehydrogenase 436 U/L (87-241) H 07/15/18 12:25 Total Creatine Kinase 205 U/L (39-308) 06/19/18 20:56 CK-MB (CK-2) 2.3 ng/mL (0.5-3.6) 06/19/18 20:56 Troponin I Less than 0.02 ng/mL (0.02-0.05) L 07/03/18 04:30 B-Natriuretic Peptide 32 pg/mL (0-100) 06/23/18 13:32 Total Protein 6.5 g/dL (6.4-8.2) 07/26/18 05:42 Albumin 4.0 g/dL (3.4-5.0) 07/22/18 05:45 Serotonin Release Assay Negative (NEGATIVE) 07/02/18 05:42 Vitamin B12 855 pg/mL (193-986) 07/02/18 13:27 Folate 12.1 ng/mL (3.1-17.5) 07/02/18 13:27 Procalcitonin 0.67 ng/mL (0.00-0.08) H 07/11/18 02:48 Urine Color Yellow (Yellw/Straw) 07/14/18 21:55 Urine Clarity Hazy (Clear) H 07/14/18 21:55 Urine pH 5.0 (5.0-8.5) 07/14/18 21:55 Ur Specific [place] 1.009 (1.002-1.035) 07/14/18 21:55 Urine Protein 30 mg/dL (Neg-Trace) H 07/14/18 21:55 Urine Glucose (UA) Negative mg/dL (Negative) 07/14/18 21:55 Urine Ketones Trace mg/dL (Negative) H 07/14/18 21:55 Urine Occult Blood Large (Negative) H 07/14/18 21:55 Urine Nitrate Negative (Negative) 07/14/18 21:55 Urine Bilirubin Negative (Negative) 07/14/18 21:55 Urine Urobilinogen Less than 2 mg/dL (Less than 2) 07/14/18 21:55 Ur Leukocyte Esterase Trace (Negative) H 07/14/18 21:55 Urine RBC 4 /hpf (0-3) H 07/14/18 21:55 Urine WBC 3 /hpf (0-5) 07/14/18 21:55 Amorphous Sediment Few /hpf (None) H 07/14/18 21:55 Hyaline Casts 1 /lpf (0-3) 06/27/18 17:00 Urine Mucus Few /lpf (Occasional) H 07/11/18 16:50 Micro UA Comment Cath-culture not ind 07/14/18 21:55 Ur Microscopic Review Not Reportable 07/14/18 21:55 Urine Culture Comments Cath-cult not ind 07/14/18 21:55 Urine Eosinophils None seen /HPF (None Seen) 07/10/18 20:50 Ur Random Creatinine 33 mg/dL (27-300) 07/13/18 13:30 Ur Random Sodium 78 meq/L 07/13/18 13:30 Nasal Screen MRSA (PCR) Not detected (Negative) 06/26/18 12:40 Stl C.difficile DNA Amp Negative (Negative) 07/09/18 00:30 St C. diff Tox Epid 027 Negative (Negative) 07/09/18 00:30 Heparin Dep Plt Ab OD 4.309 U/mL (0.000-1.0) H 06/30/18 11:30 Hep-Induced Plt Ab [place] Positive (Negative) H 06/30/18 11:30 ANNMARIE UFH Low Dose 0.1 3 %release (2.1-21.7) 07/02/18 05:42 ANNMARIE UFH Low Dose 0.5 2 %release (2.1-21.7) 07/02/18 05:42 ANNMARIE UFH High Dose 100 3 %release (2.1-21.7) 07/02/18 05:42 Hepatitis A Ab Total Nonreactive 07/22/18 15:53 Hep Bs Antibody Less than 3.1 mIU/mL 07/22/18 15:53 Hep B Core IgM Ab Nonreactive (Nonreactive) 07/22/18 15:53 Hepatitis Be Antigen Nonreactive 07/22/18 15:53 Hepatitis C Antibody Nonreactive (Nonreactive) 07/22/18 15:53 Blood Type O Positive 07/16/18 11:05 Antibody Screen Negative 07/16/18 11:05 MTS Gel Crossmatch See Detail 07/16/18 11:05 Impressions Abdomen Ultrasound 06/21/18 00:00 CONCLUSION: 1. No ascites is identified within the abdomen. Abdomen/Bladder Ultrasound 06/28/18 00:00 CONCLUSION: 1. Echogenic kidneys characteristic of medical renal disease. No hydronephrosis. Bladder decompressed by Moreno Chest CTA 07/02/18 00:00 CONCLUSION: 1. No pulmonary embolus. 2. Diffuse but basilar predominant bilateral airspace disease. 3. Endotracheal and endobronchial secretions are demonstrated. 4. Moderate emphysema. 5. Left ventricular hypertrophy. Abdomen/Pelvis CT 07/10/18 08:31 CONCLUSION: 1. There is gas and fluid distending the colon. The patient has a rectal tube in place however the rectal tube is kinked back on itself and occluded. The overall size of the colon has mildly increased when compared to previous exam. The small bowel is normal in caliber. 2. Interval development of a small left basilar effusion and atelectasis. Venous Doppler Study 07/15/18 00:00 CONCLUSION: 1. Limited suboptimal examination. 2. Nonocclusive thrombus in the jugular vein. Abdomen X-Ray 07/19/18 14:09 CONCLUSION: Negative examination. Chest X-Ray 07/25/18 04:00 CONCLUSION: Previous basilar opacity has resolved. No new infiltrate or effusion. Objective Remarks: GENERAL: Elderly -[place] male sitting in bed, currently on high flow nasal cannula, refusing BiPAP SKIN: Warm and dry HEAD: Normocephalic. EYES: PERRL NECK: Supple, trachea midline. Airway widely patent, no obstructive noises CARDIOVASCULAR: Regular rate and regular rhythm. No murmur RESPIRATORY: Diminished breath sounds in bases noted .B/L equal air entry, patient noted to be dyspneic, with accessory muscle use GASTROINTESTINAL: Abdomen distended and firm, non-tender, no guarding, bowel sounds present MUSCULOSKELETAL: 1+ bilateral upper/ lower extremity edema, warm and well- perfused Neuro: Awake and alert, speaking in complete sentences, no neuro deficits Assessment and Plan - Assessment and Plan Plan: ASSESSMENT: Hypercapnic respiratory failure Acute COPD exacerbation Respiratory acidosis Altered mental status due to CO2 narcosis Acute kidney injury/failure Anemia requiring transfusion Colonic ileus Hypertension Leukocytosis Hyperglycemia COPD Hypomagnesemia Hypokalemia Normocytic anemia Thrombocytopenia Hyperphosphatemia PLAN: NEURO: -Monitor neuro status, avoid sedatives -F/U acetylcholine receptor and autoantibodies RESP: -Extubated 06/29. Reintubated 07/02 extubated again 07/07, reintubated 07/26 -Patient requires pressure control PC AC mode for adequate ventilation-ABG / /45/41/16 -DuoNeb every 4 hours scheduled and butyryl aerosols every 2 hours as needed -Wean methylprednisolone succinate from 40 mg to 20 mg daily -Inhaled budesonide -07/25 chest x-ray noted improvement resolution of bibasilar opacities CV: - Monitor HR and BP keep MAP>65mmHg GI: -Decompressive colonoscopy by Dr. Berrios performed on 07/15/2018. -KUB 07/14: Ileus. Get follow-up KUB stat -KUB 07/13: Stable nonobstructive colonic distention. Given Neostigmine 07/11. -s/p repeat decompressive colonoscopy 07/10 and 07/15 -Continue Protonix secondary to thrombocytopenia, avoid famotidine -On docusate sodium/senna 1 tablet twice daily, lactulose 30 cc 4 times daily -Insert NG tube. FEN/: -Monitor renal function, I/O's, avoid nephrotoxins -Renal function continues to improve- Cr: 0.9 -Begin D5 09/03 NSS @ 30cc/hr -Renal- Dr. Figueroa ID: -Off abx monitor for signs of infections (Fever, WBC) WBC stable -BC and urine cx from 07/11- NG in 5 days -07/02 BC: NGTS, sputum cx 07/02:normal resp justyn -ID is following- Dr. Brown PRN HEME: -Monitor CBC, coags, Hep PLT is positive. ANNMARIE negative. Hematology is following. Off argatroban drip -s/p 2U PRBCs on 07/16, Hgb 8.8, used for hemoglobin less than 7 -Stable thrombocytopenia-avoid medications that precipitate thrombocytopenia -Strict bedrest for now ENDO: -Electrolyte replacement per protocol -Sliding scale insulin medium scale PROPH: -Bilateral lower extremity SCDs. PPI -Doppler US LE negative DVT 07/02 LINES: -Utilize peripheral IVs Overall impression: Elderly man with severe emphysema and quite marginal respiratory status. Patient has required multiple and 2 basins for his severe emphysema, continue discussions with family to make decision regarding tracheostomy and PEG. Palliative care discussion ongoing Level 2
--- NOTE | 2018-07-26 17:27 | XR ---
EXAM DATE: 07/26/2018 5:23 PM EST AGE/SEX: 73 years / Male INDICATIONS: E-T tube placement. CLINICAL DATA: This is the patient's subsequent encounter. Patient reports that signs and symptoms h ave been present for 2 weeks and indicates a pain score of Nonresponsive. MEDICAL/SURGICAL HISTORY: Chronic obstructive pulmonary disease. Hypertension. None. COMPARISON: [facility], CHEST 1V SINGLE AP, 07/25/2018. . FINDINGS: ETT is at the level of the clavicles. Lungs are clear. Cardiomediastinal contours are within normal l imits. Remainder of the exam is unchanged. CONCLUSION: 1. ETT in good position. 2. No acute abnormality. Electronically signed by: Joshua Amin MD 07/26/2018 5:25 PM EST
--- NOTE | 2018-07-26 17:27 | P.PCN ---
Date of procedure: 07/26/18 Pre-op diagnosis: Acute hypoxemic respiratory failure Post-op diagnosis: same Procedure: Endotracheal intubation Endotracheal Intubation Diagnosis: Respiratory failure Indications: Hypoxemic respiratory failure Consent: Patient acknowledged Anesthesia: See MAR Description of the Procedure: The patient was positioned in the sniffing position. Pre-oxygenation was performed using 100% ambu bag. Anesthesia was induced via rapid sequence. A glidescope 4 was used for laryngoscopy and a Grade 1 view was obtained. A 8.0 cuffed endotracheal tube was inserted atraumatically through the vocal cords. Confirmation of correct endotracheal tube placement was made by equal and bilateral breath sounds and colorimetric CO2 detection. The endotracheal tube was secured at 23 cm at the teeth. There were no immediate complications noted. The patient remained hemodynamically stable throughout the procedure. A chest x-ray has been ordered. I personally performed the procedure. Condition: stable Disposition: ICU
[2018-07-26] MEDS: Sodium Chloride 0.45 % Inj 1,000 ML IV.CONT SCH (20:18)
--- NOTE | 2018-07-26 21:47 | XR ---
EXAM DATE: 07/26/2018 9:44 PM EST AGE/SEX: 73 years / Male INDICATIONS: OG tube placement. CLINICAL DATA: This is the patient's subsequent encounter. Patient reports that signs and symptoms h ave been present for 2 weeks and indicates a pain score of Nonresponsive. MEDICAL/SURGICAL HISTORY: . Chronic obstructive pulmonary disease. Hypertension. None. COMPARISON: [facility], ABDOMEN 1V KUB, 07/19/2018. . FINDINGS: Orogastric tube is present and the tip is in the distal stomach or possibly the proximal duodenum. Vi sualized bowel gas pattern is nonobstructive. No free air seen. CONCLUSION: Orogastric tube tip is in the distal stomach or proximal duodenum. Electronically signed by: Jimy Gold MD 07/26/2018 9:45 PM EST
[2018-07-27] MEDS: Pantoprazole Inj 40 MG Vial IV.PUSH SCH ×2 (01:50→19:45)
[2018-07-27] MEDS: Artificial Tears Opth Drops 15 ML Bottle EACH EYE SCH ×4 (01:50→23:27)
--- NOTE | 2018-07-27 04:36 | XR ---
EXAM DATE: 07/27/2018 4:25 AM EST AGE/SEX: 73 years / Male INDICATIONS: Shortness of breath, possible pulmonary disease. CLINICAL DATA: This is the patient's subsequent encounter. Patient reports that signs and symptoms h ave been present for 2 weeks and indicates a pain score of Nonresponsive. MEDICAL/SURGICAL HISTORY: Chronic obstructive pulmonary disease. Diabetes. None. COMPARISON: [facility], CHEST 1V SINGLE AP, 07/26/2018. . FINDINGS: Endotracheal tube in good position. NG enters stomach. Minimal basilar dependent atelectasis. No sign ificant effusion. No pneumothorax. CONCLUSION: Endotracheal tube and nasogastric tube in good position. Minimal dependent atelectasis in the lungs. Electronically signed by: Angus Millan MD 07/27/2018 4:35 AM EST
[2018-07-27] MEDS: Propofol 1000 mg/100 ml Inj 1,000 MG/100 ML BOTTLE IV.CONT PRN ×2 (04:49→22:18)
[2018-07-27 05:53] LABS: Baso % (Auto) 0.1 % (0.0-2.0); Hematocrit 26.5 % (39.0-51.0); Hemoglobin 8.9 gm/dL (13.0-17.0); Lymph # (Auto) 0.2 th/mm3 (1.0-4.8); Lymph % (Auto) 5.8 % (9.0-44.0); Mean Corpuscular HGB Conc 33.4 % (32.0-36.0); Mean Corpuscular Hemoglobin 31.9 pg (27.0-34.0); Mean Corpuscular Volume 95.5 fL (80.0-100.0); Mean Platelet Volume 10.1 fL (7.0-11.0); Mono # (Auto) 0.2 th/mm3 (0.0-0.9); Mono % (Auto) 5.7 % (0.0-8.0); Neut # (Auto) 3.4 th/mm3 (1.8-7.7); Neut % (Auto) 88.4 % (16.0-70.0); Platelet Count 73 th/mm3 (150-450); Red Blood Count 2.78 mil/mm3 (4.50-5.90); Red Cell Distribution Width 15.2 % (11.6-17.2); White Blood Count 3.9 th/mm3 (4.0-11.0)
[2018-07-27 06:13] LABS: Anion Gap 4 meq/L (5-15); Blood Urea Nitrogen 17 mg/dL (7-18); Carbon Dioxide 43.7 meq/L (21.0-32.0); Chloride 98 meq/L (98-107); Glomerular Filtration Rate Greater Than 89 mL/min (>89); Glucose,Random 236 mg/dL (74-106); Magnesium 1.5 mg/dL (1.5-2.5); Potassium 3.7 meq/L (3.5-5.1); Sodium 146 meq/L (136-145)
[2018-07-27 06:40] LABS: Calcium-Albumin Corrected 7.6 mg/dL (8.5-10.1); Total Protein 5.9 g/dL (6.4-8.2)
[2018-07-27] MEDS: dilTIAZem 60 MG Tablet PO SCH (09:00)
[2018-07-27] MEDS: MethylPREDNISolone Sod Succinate Inj 40 MG/ML Vial IV.PUSH SCH (09:01)
[2018-07-27] MEDS: Bisacodyl 10 MG Supp RECTAL SCH (09:04)
[2018-07-27] MEDS: Methylnaltrexone Inj 12 MG/0.6 ML Vial SQ SCH (09:04)
--- NOTE | 2018-07-27 10:54 | P.PNCC ---
Subjective Subjective Remarks/Hospital Course: Mr. Curry is a 73-year-old -[place] male with past medical history significant for COPD on 3 L nasal cannula, hypertension, hyperlipidemia and anxiety who was admitted to the hospitalist service on 06/19/2018 for worsening shortness of breath due to COPD exacerbation. He was treated with IV Solu- Medrol, IV antibiotics, breathing treatments gradually improved. Patient was also complaining about dyspepsia and underwent EGD by GI yesterday. Per report the EGD was normal but patient developed worsening shortness of breath and COPD exacerbation postprocedure, possibly from aspiration after sedated. Two ABGs done yesterday showed hypercapnic respiratory failure second 1 was on BiPAP and this was improved with pH 7.3 with PCO2 of 74. Patient remained on BiPAP overnight however was noticed to be lethargic today a.m., stat ABG showed pH of 7.21 PCO2 110 PO2 88 while on BiPAP. Patient was lethargic intermittently dozing off due to CO2 narcosis. Critical care medicine was consulted and I immediately evaluated the patient. Patient had obviously failed BiPAP I proceeded with endotracheal intubation placed on mechanical ventilation. Postintubation I have ordered single dose of Solu-Medrol 125 mg x1 continue Solu -Medrol 60 every 8, discontinue ceftriaxone and start cefepime 2 g IV every 8 hours continue azithromycin. Add budesonide inhaled, placed on scheduled DuoNeb every 4 hours and as needed. 06/27: Patient was intubated yesterday for severe hypercapnic respiratory failure. Currently remains intubated sedated and intubated remains diminished bilaterally. Heavily sedated for ventilator synchrony 06/28: Urine output significantly improved with fluid resuscitation. Creat down trending now 2 from 2.3, UO >3.3 L. Remains intubated sedated. Will initiate daily sedation vacation and CPAP trials 06/29: More awake today tolerating CPAP trials intermittently follows commands but gets agitated/frustrated fast. Urine output remains excellent creatinine 1.4. However sodium increasing 158 today. Night sampling expert had changed fluid to D5 W for free water replacement. Due to hypoglycemia will change to quarter normal saline at 150 mL/h repeat CMP in the afternoon 06/30 Patient was extubated yesterday. Awake 07/01 Patient is lying in bed in NAD. T: 100.5 07/02: Intubated early this morning due to acute hypoxic respiratory failure. Central line placed due to hypotension. Plan for GI perform endoscopic decompression of this large bowel today. Arousable and does follow commands. Placed on argatroban 07/03: Currently, intubated with borderline blood pressure. Central line placed yesterday due to hypotension. Did not move bowels despite 1 L of fluid from colonoscopy yesterday and multiple laxatives provided. See orders for additional laxatives today. Might need neostigmine. 07/04 Patient remains intubated and sedated with Diprivan. Given Neostigmine last night. KUB this morning showed colonic ileus. Afebrile. On Argatroban. 07/05 No events overnight, sedated with Diprivan and intubated. Off Argatroban. 07/06 Patient remains intubated and sedated. Afebrile. 07/07 Patient remains intubated, s/p decompressive colonoscopy yesterday. Awake. 07/08 Patient s/p extubation yesterday. Awake and alert. 07/09 Patient is awake, alert lying in bed in NAD. Afebrile. 07/10 Patient is awake and alert, Afebrile. 07/11 Patient s/p decompressive colonoscopy yesterday. Afebrile. On Lasix drip.( UOP: 2800ml overnight). Cr: 3.0 from 2.25. 07/12 Patient is awake, alert given Neostigmine overnight. NGT to LIWS, off Lasix drip. 07/13: Resting comfortably in bed in no acute distress. 3 bowel movements documented. Remains n.p.o. Bladder pressures around 6. Potassium being replaced. Remains anemic around 7. 07/14 Patient is lying in bed in NAD. Afebrile. 07/15 No events overnight. Afebrile. 07/16: Resting in bed mild distress. Abdomen remains distended. Hemoglobin has dropped to 6.2 2 units of PRBC ordered. Patient underwent decompressive colonoscopy by Dr. Berrios for colonic ileus 07/17: No significant overnight events, patient states that he wants to get out of bed to a chair as he is having rectal discomfort. 07/18: Patient reportedly had a BM after digital rectal exam yesterday, states that he's been passing flatus "every now and then" overnight. No plans for OR or sigmoidoscopy as per colorectal service, OK to transfer out of [facility]. 07/19: Patient transferred to [facility] yesterday, complained of shortness of breath again today. An ABG showed a pCO2 of 79 so he was placed on bipap and transferred to [facility]. Most recent ABG shows pCO2 of 66, KUB still has abdominal distension but appears to be improved when compared to KUB from 07/15. Patient has reportedly been having bowel movements and passing flatus overnight. 07/20: No dramatic improvement in abdominal distention however abdomen soft. The patient was able to breathe comfortably overnight and remained alert. This morning the BiPAP mask was removed for half an hour and the patient did well without evidence of CO2 retention or somnolence. Reconsult note 07/23: The patient was a halicat from the [facility] floor. Patient was noted to be somnolent, had difficulty breathing. Stat ABG was performed revealing a PCO2 of 113. The patient was placed on BiPAP and transferred to [facility]. Currently remains on CPAP respiratory rate is 25 , 16/5 with an FiO2 35%. 07/24: Overnight the patient was placed on BiPAP 10/5 refusing BiPAP pulling out IVs. The patient became tachycardic refusing p.o. medications. The patient was placed on a Cardizem infusion currently at 5 mg an hour. Patient is more compliant at this time the patient's BiPAP settings were increased to 15 /5 35% stat ABGs were ordered the patient was noted to have a PCO2 of 89, continues with hypercapnic respiratory failure in the setting of severe COPD. Extensive discussion with family at bedside the patient's sister and daughter provided medical status update on recent transfer to ICU and current standing. Inform family that patient is at risk for for emergent intubation. Repeat ABG pending this evening. 07/25: Patient noted to have episodes of agitation continually removing BiPAP. I discussed with patient the criticality of his illness and possible intubation patient now agrees to wear BiPAP with exception of meals. Patient's diet was advanced to clear liquid noted improvement of chest x-ray patient is noted to have last bowel movement approximately 2 days ago we will continue to monitor and follow-up GI recommendations . Noted electrolyte repletion at this time. PCO2 now in the 60s. 07/26: Patient continues to be noncompliant with BiPAP mask. ABGs obtained noting a PO2 of 45.6. The patient was emergently intubated this afternoon. Chest x-ray and repeat ABG pending at this time. Noted patient's last bowel movement last night. Subjective 07/27: Afebrile. Remains on ventilator. Will start tube feeding today. BM noted overnight. Replacing potassium phosphate, calcium chloride x1 now. And magnesium sulfate Objective Vital Signs / I&O: Vital Signs 07/26/18 12:00 07/26/18 14:00 07/26/18 16:00 Temperature 98 F 98 F Pulse Rate 87 90 94 H Respiratory Rate 26 H 34 H Blood Pressure 145/74 H 154/74 H Pulse Oximetry 94 L 89 L 07/26/18 17:10 07/26/18 18:00 07/26/18 19:34 Temperature Pulse Rate 90 87 Respiratory Rate 12 13 Blood Pressure Pulse Oximetry 100 100 07/26/18 20:00 07/26/18 20:30 07/26/18 21:00 Temperature 97.4 F L Pulse Rate 82 87 78 Respiratory Rate 15 24 26 H Blood Pressure 130/66 125/73 135/74 Pulse Oximetry 97 100 100 07/26/18 21:30 07/26/18 22:00 07/26/18 22:30 Temperature Pulse Rate 92 H 88 85 Respiratory Rate 34 H 25 H 26 H Blood Pressure 134/70 143/75 H 129/75 Pulse Oximetry 100 100 100 07/26/18 23:00 07/26/18 23:30 07/26/18 23:43 Temperature Pulse Rate 79 75 Respiratory Rate 13 12 13 Blood Pressure 114/67 123/70 Pulse Oximetry 100 100 100 07/27/18 00:00 07/27/18 00:02 07/27/18 00:30 Temperature Pulse Rate 75 82 74 Respiratory Rate 25 H 16 12 Blood Pressure 137/73 115/68 Pulse Oximetry 98 100 100 07/27/18 01:00 07/27/18 01:30 07/27/18 02:00 Temperature 97.6 F Pulse Rate 72 73 72 Respiratory Rate 24 10 L 12 Blood Pressure 125/72 127/74 115/68 Pulse Oximetry 100 100 100 07/27/18 02:30 07/27/18 03:00 07/27/18 03:30 Temperature Pulse Rate 72 72 76 Respiratory Rate 26 H 12 27 H Blood Pressure 123/71 120/76 133/75 Pulse Oximetry 100 100 100 07/27/18 04:00 07/27/18 04:30 07/27/18 05:00 Temperature Pulse Rate 76 79 76 Respiratory Rate 23 31 H 18 Blood Pressure 122/76 138/77 117/74 Pulse Oximetry 100 99 100 07/27/18 05:30 07/27/18 06:00 07/27/18 07:00 Temperature 97.4 F L Pulse Rate 74 74 108 H Respiratory Rate 12 12 12 Blood Pressure 110/66 107/68 Pulse Oximetry 100 100 07/27/18 07:57 07/27/18 08:00 07/27/18 10:33 Temperature 97.9 F 97.9 F Pulse Rate 100 H Respiratory Rate 12 18 18 Blood Pressure 114/76 115/57 L Pulse Oximetry 100 95 Intake & Output 07/26/18 07/27/18 07/27/18 18:59 06:59 18:59 Intake Total 340 / 340 1010 / 1010 Output Total 1250 / 1250 800 / 800 Balance -910 / -910 210 / 210 Weight 80.6 kg Intake: IV 100 / 100 960 / 960 1/2 Normal Saline Inj 1,000 ML 680 / 680 @ 30 mls/hr IV.CONT .Q24H [facility] Rx#:[id number] Magnesium Sulfate Inj 2 GM In 100 / 100 NS Inj 96 ML @ 50 mls/hr IV.SIG UNSCH PRN Rx#:[id number] Glycophos Inj 30 MMOL In NS Inj 280 / 280 250 ML @ 42 mls/hr IV.SIG UNSCH PRN Rx#:[id number] Oral 240 / 240 Water Bolus Amount 50 / 50 Output: Urine 1250 / 1250 800 / 800 Other: Date of Last Bowel Movement 07/26/18 07/27/18 07/27/18 # Bowel Movements 1 1 Result Diagrams: 07/27/18 05:12 07/27/18 05:12 Other Results: Microbiology 07/11/18 13:50 Blood - Peripheral Aerobic Blood Culture - Final No growth in 5 days 07/11/18 13:50 Blood - Peripheral Anaerobic Blood Culture - Final No growth in 5 days 07/11/18 02:48 Blood - Peripheral Aerobic Blood Culture - Final No growth in 5 days 07/11/18 02:48 Blood - Peripheral Anaerobic Blood Culture - Final No growth in 5 days 07/11/18 16:50 Clean Catch Urine Urine Culture - Final No growth in 48 hours 07/09/18 00:30 Stool Cryptosporidium Antigen - Final Negative - No Cryptosporicium antigen detected In selected cases of patients with a history of immunosuppression or foreign travel, a full ova and parasites examination may be desired. Contact the microbiology lab if full workup is indicated and subit another specimen for testing. 07/09/18 00:30 Stool Giardia Antigen (GERONIMO) - Final Negative - No Giardia Antigen detected In selected cases of patients with a history of immunosuppression or foreign travel, a full ova and parasites examination may be desired. Contact the microbiology lab if full workup is indicated and subit another specimen for testing. 07/02/18 05:41 Blood - Peripheral Aerobic Blood Culture - Final No growth in 5 days 07/02/18 05:41 Blood - Peripheral Anaerobic Blood Culture - Final No growth in 5 days 07/02/18 05:47 Blood - Peripheral Aerobic Blood Culture - Final No growth in 5 days 07/02/18 05:47 Blood - Peripheral Anaerobic Blood Culture - Final No growth in 5 days 07/02/18 22:00 Sputum - Endotracheal Gram Stain - Final 07/02/18 22:00 Sputum - Endotracheal Sputum Culture - Final Heavy growth normal respiratory justyn 06/26/18 10:10 Sputum - Endotracheal Gram Stain - Final 06/26/18 10:10 Sputum - Endotracheal Sputum Culture - Final Light growth normal respiratory justyn Imaging: Chest X-Ray 06/19/18 20:38 CONCLUSION: No evidence of acute cardiopulmonary disease. Abdomen Ultrasound 06/21/18 00:00 CONCLUSION: 1. No ascites is identified within the abdomen. Abdomen X-Ray 06/21/18 00:00 CONCLUSION: No acute findings. Mild constipation. Chest X-Ray 06/23/18 00:00 CONCLUSION: 1. No acute abnormality or significant interval change. Abdomen/Pelvis CT 06/24/18 00:00 CONCLUSION: 1. Benign appearing right adrenal mass. 2. No acute CT findings in the abdomen or pelvis. Chest X-Ray 06/25/18 00:00 CONCLUSION: Suspected mild atelectasis or consolidation at the medial right base. Chest X-Ray 06/26/18 00:00 CONCLUSION: 1. Endotracheal tube is appropriately positioned above the christy. 2. Nasogastric tube traverses the GE junction and is curled in the gastric lumen. 3. Lungs are clear. Abdomen X-Ray 06/26/18 09:21 CONCLUSION: 1. Nonobstructive bowel gas pattern without pneumoperitoneum. 2. Nasogastric tube is curled in the expected location of the gastric body. I believe the portions of the tube identified over the heart shadow is probably projectional as there is no evidence of a significant hiatal hernia on the most recent CT of the abdomen. Chest X-Ray 06/26/18 15:37 CONCLUSION: 1. Lungs remain clear. 2. Interval placement of a right IJ central venous catheter with the tip projecting over the central venous system. No pneumothorax. 3. Endotracheal and nasogastric tubes remain appropriately positioned. Abdomen/Bladder Ultrasound 06/28/18 00:00 CONCLUSION: 1. Echogenic kidneys characteristic of medical renal disease. No hydronephrosis. Bladder decompressed by Moreno Chest X-Ray 06/28/18 06:00 CONCLUSION: The lungs are clear. Lines and tubes stable. Chest X-Ray 06/29/18 06:00 CONCLUSION: The lungs are clear. Lines and tubes stable. Venous Doppler Study 07/01/18 00:00 CONCLUSION: 1. The study is negative for bilateral lower extremity deep venous thrombosis. Chest X-Ray 07/01/18 20:41 CONCLUSION: Negative examination. Chest CTA 07/02/18 00:00 CONCLUSION: 1. No pulmonary embolus. 2. Diffuse but basilar predominant bilateral airspace disease. 3. Endotracheal and endobronchial secretions are demonstrated. 4. Moderate emphysema. 5. Left ventricular hypertrophy. Venous Doppler Study 07/02/18 00:00 CONCLUSION: 1. Limited, no evidence for thrombosis. Chest X-Ray 07/02/18 04:04 CONCLUSION: 1. Interim intubation and nasogastric tube placement as above. 2. Mild bibasilar atelectasis has developed. Abdomen/Pelvis CT 07/02/18 04:20 CONCLUSION: Colonic distention most likely representing moderate adynamic ileus. However, distal sigmoid colon is decompressed and a sigmoid stricture is conceivable but considered less likely. Apparent mild proctitis. Clinical surveillance and follow-up CT recommended. Chest X-Ray 07/02/18 14:46 CONCLUSION: Left IJ line in good position. There is no pneumothorax. Abdomen X-Ray 07/04/18 00:01 CONCLUSION: Findings of colonic ileus Chest X-Ray 07/04/18 06:00 CONCLUSION: Cardiomegaly and findings of vascular congestion without overt failure. There has been no significant change when compared to the prior exam. Abdomen X-Ray 07/05/18 07:08 CONCLUSION: No significant interval change with persistent diffuse air-filled distention of the colon suggesting ileus. Chest X-Ray 07/07/18 07:12 CONCLUSION: Minimal bibasilar densities likely atelectasis. Abdomen X-Ray 07/07/18 07:13 CONCLUSION: Gaseous distention of multiple bowel loops has improved since previous study. Abdomen X-Ray 07/09/18 07:14 CONCLUSION: 1. Apparent interval removal of NGT. 2. Improving bowel gas pattern consistent with improving adynamic ileus. Abdomen/Pelvis CT 07/10/18 08:31 CONCLUSION: 1. There is gas and fluid distending the colon. The patient has a rectal tube in place however the rectal tube is kinked back on itself and occluded. The overall size of the colon has mildly increased when compared to previous exam. The small bowel is normal in caliber. 2. Interval development of a small left basilar effusion and atelectasis. Chest X-Ray 07/10/18 08:42 CONCLUSION: Mild patchy bilateral lung base opacity likely representing atelectasis unchanged. Small left pleural effusion now seen. Abdomen X-Ray 07/11/18 00:00 CONCLUSION: 1. Questionable NGT at the GE junction, as above. 2. Moderately improved colonic distention. Abdomen X-Ray 07/12/18 00:00 CONCLUSION: Probable generalized ileus. No abrupt caliber changes are seen. No free air. Nasogastric tube tip is in the upper stomach. No gastric distention seen. Abdomen X-Ray 07/14/18 06:00 CONCLUSION: Distended air-filled colon. Ileus is the most likely etiology for this pattern. Abdomen X-Ray 07/15/18 00:00 CONCLUSION: Persistent air-filled loops of small and large bowel suggesting probably ileus. Clinical correlation is recommended. Venous Doppler Study 07/15/18 00:00 CONCLUSION: 1. Limited suboptimal examination. 2. Nonocclusive thrombus in the jugular vein. Chest X-Ray 07/16/18 10:00 CONCLUSION: Mild bibasilar consolidations, presumably atelectasis is unchanged. Abdomen X-Ray 07/19/18 14:09 CONCLUSION: Negative examination. Chest X-Ray 07/19/18 14:10 CONCLUSION: 1. No acute cardiopulmonary disease. 2. Mild degenerative changes and scoliosis of the thoracic spine. Chest X-Ray 07/23/18 00:00 CONCLUSION: Negative examination. Chest X-Ray 07/24/18 00:00 CONCLUSION: Mild bibasilar consolidation. Chest X-Ray 07/25/18 04:00 CONCLUSION: Previous basilar opacity has resolved. No new infiltrate or effusion. Abdomen X-Ray 07/26/18 00:00 CONCLUSION: Orogastric tube tip is in the distal stomach or proximal duodenum. Chest X-Ray 07/26/18 17:00 CONCLUSION: 1. ETT in good position. 2. No acute abnormality. Chest X-Ray 07/27/18 04:00 CONCLUSION: Endotracheal tube and nasogastric tube in good position. Minimal dependent atelectasis in the lungs. Objective Remarks: GENERAL: 73-year-old elderly -[place] male sitting in bed, currently orotracheally intubated SKIN: Warm and dry HEAD: Normocephalic. EYES: PERRL NECK: Supple, trachea midline. Airway widely patent, no obstructive noises CARDIOVASCULAR: Regular rate and regular rhythm. 12, S2. No S4. No murmur RESPIRATORY: Diminished breath sounds in bases noted .B/L equal air entry, patient noted to be dyspneic, with accessory muscle use GASTROINTESTINAL: Abdomen distended and firm, non-tender, no guarding, bowel sounds present MUSCULOSKELETAL: 1+ bilateral upper/ lower extremity edema, warm and well- perfused Neuro: Sedated on a propofol drip. Positive gag and cough. Positive corneal reflex. Withdraws to pain bilateral upper and lower extremities. Assessment and Plan - Assessment and Plan Plan: NEURO/Psych: Altered mental status due to CO2 retention -Monitor neuro status, avoid sedatives -F/U acetylcholine receptor and autoantibodies - RESP: Hypercapnic respiratory failure Acute COPD exacerbation -Extubated 06/29. Reintubated 07/02 extubated again 07/07, reintubated 07/26 -Patient currently on PRVC -Albuterol/ipratropium aerosols every 4 hours scheduled and albuterol aerosols every 2 hours as needed -Wean methylprednisolone succinate from 40 mg to 20 mg daily -Inhaled budesonide -07/25 chest x-ray noted improvement resolution of bibasilar opacities CV: Essential hypertension - Monitor HR and BP keep MAP>65mmHg -Currently on diltiazem 60 mg by tube every 6 hours. This could be causing constipation as well. Will switch to IV metoprolol 5 mg IV every 6 hours. GI: Colonic ileus -KUB 07/13: Stable nonobstructive colonic distention. Given Neostigmine 07/11. -s/p repeat decompressive colonoscopy 07/10 and 07/15 -Continue pantoprazole -On docusate sodium/senna 1 tablet twice daily, lactulose 30 cc 4 times daily, polyethylene glycol 17 g daily. Fleets enema daily. Naltrexone 12 mg subcu daily -Insert NG tube. Started tube feeding today FEN/: Hypernatremia Hypocalcemia Hypomagnesia Hypophosphatemia -Monitor renal function, I/O's, avoid nephrotoxins -Renal function continues to improve- Cr: 0.9 -Renal- Dr. Figueroa as followed per ID: -Off abx monitor for signs of infections (Fever, WBC) WBC stable -BC and urine cx from 07/11- NG in 5 days -07/02 BC: NGTS, sputum cx 07/02:normal resp justyn -ID is following- Dr. Brown PRN HEME: Leukopenia Normocytic anemia Thrombocytopenia -Monitor CBC, coags, Hep PLT is positive. ANNMARIE negative. Hematology is following. Off argatroban drip -s/p 2U PRBCs on 07/16, Hgb 8.8, used for hemoglobin less than 7 -Stable thrombocytopenia-avoid medications that precipitate thrombocytopenia -Strict bedrest for now ENDO: -Electrolyte replacement per protocol -Sliding scale insulin medium scale PROPH: -Bilateral lower extremity SCDs. PPI -Doppler US LE negative DVT 07/02 LINES: -Utilize peripheral IVs Level 2
[2018-07-27 10:56] LABS: Lymphocytes 7 % (9-44); Monocytes 3 % (0-8); Platelet Morphology Normal (Normal); Tallied Nucleated RBC 1 (0-0)
[2018-07-27] MEDS ORDERED: Calcium Chloride Inj 1 GM in Sodium Chlor 0.9% Inj 100 ML IV.SIG ONE (11:00)
[2018-07-27] MEDS: Metoprolol Inj 5 MG/5 ML Vial IV.PUSH SCH ×3 (11:15→22:17)
[2018-07-27] MEDS ORDERED: Potassium Phosphate Inj 30 MMOL in Sodium Chlor 0.9% Inj 250 ML IV.SIG ONE (12:00)
[2018-07-27] MEDS ORDERED: Magnesium Sulfate Inj 4 GM in Dextrose 5% in Water Inj 100 ML IV.SIG ONE ×2 (12:00)
--- NOTE | 2018-07-27 16:37 | P.PNPL ---
Subjective Interval history: 73 YOAA male with COPD, [address] [facility] Admitted with AMS, COPD exac Reintubated 07/26 due to worsening resp status Sedated with Diprivan Physical Exam Vital signs: Vital Signs 07/26/18 17:10 07/26/18 18:00 07/26/18 19:34 Temperature Pulse Rate 90 87 Respiratory Rate 12 13 Blood Pressure Pulse Oximetry 100 100 07/26/18 20:00 07/26/18 20:30 07/26/18 21:00 Temperature 97.4 F L Pulse Rate 82 87 78 Respiratory Rate 15 24 26 H Blood Pressure 130/66 125/73 135/74 Pulse Oximetry 97 100 100 07/26/18 21:30 07/26/18 22:00 07/26/18 22:30 Temperature Pulse Rate 92 H 88 85 Respiratory Rate 34 H 25 H 26 H Blood Pressure 134/70 143/75 H 129/75 Pulse Oximetry 100 100 100 07/26/18 23:00 07/26/18 23:30 07/26/18 23:43 Temperature Pulse Rate 79 75 Respiratory Rate 13 12 13 Blood Pressure 114/67 123/70 Pulse Oximetry 100 100 100 07/27/18 00:00 07/27/18 00:02 07/27/18 00:30 Temperature Pulse Rate 75 82 74 Respiratory Rate 25 H 16 12 Blood Pressure 137/73 115/68 Pulse Oximetry 98 100 100 07/27/18 01:00 07/27/18 01:30 07/27/18 02:00 Temperature 97.6 F Pulse Rate 72 73 72 Respiratory Rate 24 10 L 12 Blood Pressure 125/72 127/74 115/68 Pulse Oximetry 100 100 100 07/27/18 02:30 07/27/18 03:00 07/27/18 03:30 Temperature Pulse Rate 72 72 76 Respiratory Rate 26 H 12 27 H Blood Pressure 123/71 120/76 133/75 Pulse Oximetry 100 100 100 07/27/18 04:00 07/27/18 04:30 07/27/18 05:00 Temperature Pulse Rate 76 79 76 Respiratory Rate 23 31 H 18 Blood Pressure 122/76 138/77 117/74 Pulse Oximetry 100 99 100 07/27/18 05:30 07/27/18 06:00 07/27/18 07:00 Temperature 97.4 F L Pulse Rate 74 74 108 H Respiratory Rate 12 12 12 Blood Pressure 110/66 107/68 Pulse Oximetry 100 100 07/27/18 07:57 07/27/18 08:00 07/27/18 10:33 Temperature 97.9 F 97.9 F Pulse Rate 100 H Respiratory Rate 08 19 18 Blood Pressure 114/76 115/57 L Pulse Oximetry 100 95 07/27/18 11:53 07/27/18 12:00 07/27/18 15:31 Temperature Pulse Rate 84 80 Respiratory Rate 16 16 16 Blood Pressure Pulse Oximetry 100 100 07/27/18 16:00 Temperature Pulse Rate Respiratory Rate 16 Blood Pressure Pulse Oximetry Intake & Output 07/26/18 07/27/18 07/27/18 18:59 06:59 18:59 Intake Total 340 / 340 1010 / 1010 Output Total 1250 / 1250 800 / 800 Balance -910 / -910 210 / 210 Weight 80.6 kg Intake: IV 100 / 100 960 / 960 1/2 Normal Saline Inj 1,000 ML 680 / 680 @ 30 mls/hr IV.CONT .Q24H WOLF Rx#:[id number] Magnesium Sulfate Inj 2 GM In 100 / 100 NS Inj 96 ML @ 50 mls/hr IV.SIG UNSCH PRN Rx#:[id number] Glycophos Inj 30 MMOL In NS Inj 280 / 280 250 ML @ 42 mls/hr IV.SIG UNSCH PRN Rx#:[id number] Oral 240 / 240 Water Bolus Amount 50 / 50 Output: Urine 1250 / 1250 800 / 800 Other: Date of Last Bowel Movement 07/26/18 07/27/18 07/27/18 # Bowel Movements 1 1 GENERAL: Obese AA male on Vent SKIN: Warm and dry. HEAD: Normocephalic. EYES: No scleral icterus. No injection or drainage. NECK: Supple, trachea midline. No JVD or lymphadenopathy. CARDIOVASCULAR: Regular rate and rhythm without murmurs, gallops, or rubs. RESPIRATORY: Breath sounds equal bilaterally. No accessory muscle use. GASTROINTESTINAL: Abdomen soft, non-tender, distended. MUSCULOSKELETAL: No cyanosis, or edema. BACK: Nontender without obvious deformity. No CVA tenderness. 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 Abdominal distension, s/p decompression. PLAN: Cont vent support Sedation with Diprivan Aerosol nebs Supplement 02 Solumedrol 20 mg q day Monitor BS
[2018-07-27] MEDS: Docusate Sodium Liq 100 MG/10 ML UDC NG/OG SCH (22:15)
[2018-07-27] MEDS: Sennosides Liq 8.8 MG/5 ML UDC NG/OG SCH (22:16)
[2018-07-28] MEDS: Pantoprazole Inj 40 MG Vial IV.PUSH SCH ×2 (01:08→15:47)
[2018-07-28] MEDS: Propofol 1000 mg/100 ml Inj 1,000 MG/100 ML BOTTLE IV.CONT PRN ×5 (02:36→20:26)
--- NOTE | 2018-07-28 03:42 | XR ---
EXAM DATE: 07/28/2018 3:34 AM EST AGE/SEX: 73 years / Male INDICATIONS: Shortness of breath, possible pulmonary disease. CLINICAL DATA: This is the patient's subsequent encounter. Patient reports that signs and symptoms h ave been present for 2 weeks and indicates a pain score of Nonresponsive. MEDICAL/SURGICAL HISTORY: Chronic obstructive pulmonary disease. Diabetes. Hypertension. None . COMPARISON: [facility], CHEST 1V SINGLE AP, 07/27/2018. . FINDINGS: Endotracheal tube in good position. NG coiled in stomach. Mild basilar density, probably atelectasis. No effusion or pneumothorax. Mild scoliosis. CONCLUSION: Mild basilar atelectasis. No effusion or pneumothorax. Electronically signed by: Angus Millan MD 07/28/2018 3:41 AM EST
--- NOTE | 2018-07-28 03:43 | XR ---
EXAM DATE: 07/28/2018 3:34 AM EST AGE/SEX: 73 years / Male INDICATIONS: Ileus. CLINICAL DATA: This is the patient's subsequent encounter. Patient reports that signs and symptoms h ave been present for 2 weeks and indicates a pain score of Nonresponsive. MEDICAL/SURGICAL HISTORY: Chronic obstructive pulmonary disease. Diabetes. Hypertension. None . COMPARISON: [facility] [place] [facility]. . FINDINGS: NG tip is in the duodenum. Bowel gas pattern nonspecific ileus without evidence for obstruction or fr ee air. No acute bony abnormalities. CONCLUSION: Mild ileus. No evidence for obstruction or free air. Electronically signed by: Angus Millan MD 07/28/2018 3:42 AM EST
[2018-07-28 05:17] LABS: ABG Base Excess 13.8 mmol/L (-2-2); ABG PCO2 45 mmHg (38-42); ABG PO2 100 mmHG (61-120)
[2018-07-28] MEDS: Metoprolol Inj 5 MG/5 ML Vial IV.PUSH SCH ×3 (05:18→17:26)
[2018-07-28 05:59] LABS: Baso % (Auto) 0.2 % (0.0-2.0); Hematocrit 25.3 % (39.0-51.0); Hemoglobin 8.9 gm/dL (13.0-17.0); Lymph # (Auto) 0.5 th/mm3 (1.0-4.8); Lymph % (Auto) 10.3 % (9.0-44.0); Mean Corpuscular HGB Conc 35.2 % (32.0-36.0); Mean Corpuscular Hemoglobin 32.4 pg (27.0-34.0); Mean Corpuscular Volume 92.1 fL (80.0-100.0); Mean Platelet Volume 10.4 fL (7.0-11.0); Mono # (Auto) 0.3 th/mm3 (0.0-0.9); Mono % (Auto) 4.7 % (0.0-8.0); Neut # (Auto) 4.5 th/mm3 (1.8-7.7); Neut % (Auto) 84.8 % (16.0-70.0); Platelet Count 84 th/mm3 (150-450); Red Blood Count 2.74 mil/mm3 (4.50-5.90); Red Cell Distribution Width 15.3 % (11.6-17.2); White Blood Count 5.3 th/mm3 (4.0-11.0)
[2018-07-28 06:28] LABS: Albumin 3.3 g/dL (3.4-5.0); Calcium 7.3 mg/dL (8.5-10.1); Carbon Dioxide 36.7 meq/L (21.0-32.0); Magnesium 2.1 mg/dL (1.5-2.5); Phosphorus 2.1 mg/dL (2.5-4.9); Potassium 3.7 meq/L (3.5-5.1); Total Protein 5.8 g/dL (6.4-8.2)
[2018-07-28 08:17] LABS: Bilirubin,Urine Negative (Negative); Clarity,Urine Cloudy (Clear); Color,Urine Yellow (Yellw/Straw); Glucose,Urine (UA) 150 mg/dL (Negative); Leukocyte Esterase,Urine Large (Negative); Mucus,Urine Few /lpf (Occasional); Nitrite,Urine Negative (Negative)
[2018-07-28 09:02] LABS: Lymphocytes 5 % (9-44); Monocytes 3 % (0-8); Myelocytes 2 % (0-0); Tallied Nucleated RBC 3 (0-0)
[2018-07-28] MEDS ORDERED: Albumin Human 5% Inj 250 ML IV.SIG ONE (09:18)
[2018-07-28] MEDS ORDERED: Sod Chloride 0.9% Inj 1,000 ML IV.SIG ONE (09:18)
--- NOTE | 2018-07-28 09:22 | P.PNCC ---
Subjective Subjective Remarks/Hospital Course: Mr. Curry is a 73-year-old -[place] male with past medical history significant for COPD on 3 L nasal cannula, hypertension, hyperlipidemia and anxiety who was admitted to the hospitalist service on 06/19/2018 for worsening shortness of breath due to COPD exacerbation. He was treated with IV Solu- Medrol, IV antibiotics, breathing treatments gradually improved. Patient was also complaining about dyspepsia and underwent EGD by GI yesterday. Per report the EGD was normal but patient developed worsening shortness of breath and COPD exacerbation postprocedure, possibly from aspiration after sedated. Two ABGs done yesterday showed hypercapnic respiratory failure second 1 was on BiPAP and this was improved with pH 7.3 with PCO2 of 74. Patient remained on BiPAP overnight however was noticed to be lethargic today a.m., stat ABG showed pH of 7.21 PCO2 110 PO2 88 while on BiPAP. Patient was lethargic intermittently dozing off due to CO2 narcosis. Critical care medicine was consulted and I immediately evaluated the patient. Patient had obviously failed BiPAP I proceeded with endotracheal intubation placed on mechanical ventilation. Postintubation I have ordered single dose of Solu-Medrol 125 mg x1 continue Solu -Medrol 60 every 8, discontinue ceftriaxone and start cefepime 2 g IV every 8 hours continue azithromycin. Add budesonide inhaled, placed on scheduled DuoNeb every 4 hours and as needed. 06/27: Patient was intubated yesterday for severe hypercapnic respiratory failure. Currently remains intubated sedated and intubated remains diminished bilaterally. Heavily sedated for ventilator synchrony 06/28: Urine output significantly improved with fluid resuscitation. Creat down trending now 2 from 2.3, UO >3.3 L. Remains intubated sedated. Will initiate daily sedation vacation and CPAP trials 06/29: More awake today tolerating CPAP trials intermittently follows commands but gets agitated/frustrated fast. Urine output remains excellent creatinine 1.4. However sodium increasing 158 today. Night plumbing technician had changed fluid to D5 W for free water replacement. Due to hypoglycemia will change to quarter normal saline at 150 mL/h repeat CMP in the afternoon 06/30 Patient was extubated yesterday. Awake 07/01 Patient is lying in bed in NAD. T: 100.5 07/02: Intubated early this morning due to acute hypoxic respiratory failure. Central line placed due to hypotension. Plan for GI perform endoscopic decompression of this large bowel today. Arousable and does follow commands. Placed on argatroban 07/03: Currently, intubated with borderline blood pressure. Central line placed yesterday due to hypotension. Did not move bowels despite 1 L of fluid from colonoscopy yesterday and multiple laxatives provided. See orders for additional laxatives today. Might need neostigmine. 07/04 Patient remains intubated and sedated with Diprivan. Given Neostigmine last night. KUB this morning showed colonic ileus. Afebrile. On Argatroban. 07/05 No events overnight, sedated with Diprivan and intubated. Off Argatroban. 07/06 Patient remains intubated and sedated. Afebrile. 07/07 Patient remains intubated, s/p decompressive colonoscopy yesterday. Awake. 07/08 Patient s/p extubation yesterday. Awake and alert. 07/09 Patient is awake, alert lying in bed in NAD. Afebrile. 07/10 Patient is awake and alert, Afebrile. 07/11 Patient s/p decompressive colonoscopy yesterday. Afebrile. On Lasix drip.( UOP: 2800ml overnight). Cr: 3.0 from 2.25. 07/12 Patient is awake, alert given Neostigmine overnight. NGT to LIWS, off Lasix drip. 07/13: Resting comfortably in bed in no acute distress. 3 bowel movements documented. Remains n.p.o. Bladder pressures around 6. Potassium being replaced. Remains anemic around 7. 07/14 Patient is lying in bed in NAD. Afebrile. 07/15 No events overnight. Afebrile. 07/16: Resting in bed mild distress. Abdomen remains distended. Hemoglobin has dropped to 6.2 2 units of PRBC ordered. Patient underwent decompressive colonoscopy by Dr. Berrios for colonic ileus 07/17: No significant overnight events, patient states that he wants to get out of bed to a chair as he is having rectal discomfort. 07/18: Patient reportedly had a BM after digital rectal exam yesterday, states that he's been passing flatus "every now and then" overnight. No plans for OR or sigmoidoscopy as per colorectal service, OK to transfer out of [facility]. 07/19: Patient transferred to [facility] yesterday, complained of shortness of breath again today. An ABG showed a pCO2 of 79 so he was placed on bipap and transferred to [facility]. Most recent ABG shows pCO2 of 66, KUB still has abdominal distension but appears to be improved when compared to KUB from 07/15. Patient has reportedly been having bowel movements and passing flatus overnight. 07/20: No dramatic improvement in abdominal distention however abdomen soft. The patient was able to breathe comfortably overnight and remained alert. This morning the BiPAP mask was removed for half an hour and the patient did well without evidence of CO2 retention or somnolence. Reconsult note 07/23: The patient was a halicat from the [facility] floor. Patient was noted to be somnolent, had difficulty breathing. Stat ABG was performed revealing a PCO2 of 113. The patient was placed on BiPAP and transferred to [facility]. Currently remains on CPAP respiratory rate is 25 , 16/5 with an FiO2 35%. 07/24: Overnight the patient was placed on BiPAP 10/5 refusing BiPAP pulling out IVs. The patient became tachycardic refusing p.o. medications. The patient was placed on a Cardizem infusion currently at 5 mg an hour. Patient is more compliant at this time the patient's BiPAP settings were increased to 15 /5 35% stat ABGs were ordered the patient was noted to have a PCO2 of 89, continues with hypercapnic respiratory failure in the setting of severe COPD. Extensive discussion with family at bedside the patient's sister and daughter provided medical status update on recent transfer to ICU and current standing. Inform family that patient is at risk for for emergent intubation. Repeat ABG pending this evening. 07/25: Patient noted to have episodes of agitation continually removing BiPAP. I discussed with patient the criticality of his illness and possible intubation patient now agrees to wear BiPAP with exception of meals. Patient's diet was advanced to clear liquid noted improvement of chest x-ray patient is noted to have last bowel movement approximately 2 days ago we will continue to monitor and follow-up GI recommendations . Noted electrolyte repletion at this time. PCO2 now in the 60s. 07/26: Patient continues to be noncompliant with BiPAP mask. ABGs obtained noting a PO2 of 45.6. The patient was emergently intubated this afternoon. Chest x-ray and repeat ABG pending at this time. Noted patient's last bowel movement last night. 07/27: Afebrile. Remains on ventilator. Will start tube feeding today. BM noted overnight. Replacing potassium phosphate, calcium chloride x1 now. And magnesium sulfate Subjective 07/28: Afebrile. Did not tolerate CPAP trial the same. Tolerating tube feeds today. Last bowel movement yesterday 09/26. Mild ileus on abdominal x-ray today. Objective Vital Signs / I&O: Vital Signs 07/27/18 10:33 07/27/18 11:53 07/27/18 12:00 Temperature 97.9 F 97.5 F L Pulse Rate 100 H 84 104 H Respiratory Rate 18 16 18 Blood Pressure 115/57 L 104/65 Pulse Oximetry 100 94 L 07/27/18 15:31 07/27/18 16:00 07/27/18 20:00 Temperature 97.8 F 99.1 F Pulse Rate 80 81 91 H Respiratory Rate 16 16 16 Blood Pressure 110/66 130/80 Pulse Oximetry 100 100 07/27/18 20:13 07/27/18 20:14 07/27/18 22:00 Temperature Pulse Rate 101 H 103 H Respiratory Rate 16 16 Blood Pressure Pulse Oximetry 100 07/28/18 00:00 07/28/18 00:05 07/28/18 00:06 Temperature 99.7 F H Pulse Rate 90 91 H Respiratory Rate 16 16 17 Blood Pressure 127/64 Pulse Oximetry 100 100 07/28/18 02:00 07/28/18 03:57 07/28/18 03:59 Temperature Pulse Rate 98 H 111 H Respiratory Rate 18 16 Blood Pressure Pulse Oximetry 100 07/28/18 04:00 07/28/18 06:00 07/28/18 07:54 Temperature 99.7 F H Pulse Rate 122 H 122 H 122 H Respiratory Rate 19 16 Blood Pressure 93/53 L Pulse Oximetry 100 100 Intake & Output 07/27/18 07/28/18 07/28/18 18:59 06:59 18:59 Intake Total 581 / 581 1169 / 1169 100 / 100 Output Total 651 / 651 1050 / 1050 Balance -70 / -70 119 / 119 100 / 100 Weight 80.3 kg Intake: IV 100 / 100 578 / 578 100 / 100 Diprivan 1000 mg/100 ml Inj 1, 100 / 100 100 / 100 100 / 100 000 mg In 100 ml @ 5 MCG/KG/MIN 2.397 mls/hr IV.CONT TITRATE PRN Rx#:[id number] Magnesium Sulfate Inj 4 GM In 108 / 108 D5W Inj 100 ML @ 25 mls/hr IV. SIG ONCE ONE Rx#:[id number] Potassium Phosphate Inj 30 MMOL 260 / 260 In NS Inj 250 ML @ 43.333 mls/ hr IV.SIG ONCE ONE Rx#:[id number] Oral 0 / 0 Tube Feeding 80 / 80 Water Bolus Amount 30 / 30 Other 481 / 481 481 / 481 Output: Urine 650 / 650 Stool 1 / 1 0 / 0 Urine Amount (Catheter) 1050 / 1050 Condom 200 / 200 Straight 850 / 850 Other: Other Intake Source Saline Solution Saline Solution Date of Last Bowel Movement 07/27/18 07/27/18 Result Diagrams: 07/28/18 05:02 07/28/18 05:02 Other Results: Microbiology 07/11/18 13:50 Blood - Peripheral Aerobic Blood Culture - Final No growth in 5 days 07/11/18 13:50 Blood - Peripheral Anaerobic Blood Culture - Final No growth in 5 days 07/11/18 02:48 Blood - Peripheral Aerobic Blood Culture - Final No growth in 5 days 07/11/18 02:48 Blood - Peripheral Anaerobic Blood Culture - Final No growth in 5 days 07/11/18 16:50 Clean Catch Urine Urine Culture - Final No growth in 48 hours 07/09/18 00:30 Stool Cryptosporidium Antigen - Final Negative - No Cryptosporicium antigen detected In selected cases of patients with a history of immunosuppression or foreign travel, a full ova and parasites examination may be desired. Contact the microbiology lab if full workup is indicated and subit another specimen for testing. 07/09/18 00:30 Stool Giardia Antigen (GERONIMO) - Final Negative - No Giardia Antigen detected In selected cases of patients with a history of immunosuppression or foreign travel, a full ova and parasites examination may be desired. Contact the microbiology lab if full workup is indicated and subit another specimen for testing. 07/02/18 05:41 Blood - Peripheral Aerobic Blood Culture - Final No growth in 5 days 07/02/18 05:41 Blood - Peripheral Anaerobic Blood Culture - Final No growth in 5 days 07/02/18 05:47 Blood - Peripheral Aerobic Blood Culture - Final No growth in 5 days 07/02/18 05:47 Blood - Peripheral Anaerobic Blood Culture - Final No growth in 5 days 07/02/18 22:00 Sputum - Endotracheal Gram Stain - Final 07/02/18 22:00 Sputum - Endotracheal Sputum Culture - Final Heavy growth normal respiratory justyn 06/26/18 10:10 Sputum - Endotracheal Gram Stain - Final 06/26/18 10:10 Sputum - Endotracheal Sputum Culture - Final Light growth normal respiratory justyn Imaging: Chest X-Ray 06/19/18 20:38 CONCLUSION: No evidence of acute cardiopulmonary disease. Abdomen Ultrasound 06/21/18 00:00 CONCLUSION: 1. No ascites is identified within the abdomen. Abdomen X-Ray 06/21/18 00:00 CONCLUSION: No acute findings. Mild constipation. Chest X-Ray 06/23/18 00:00 CONCLUSION: 1. No acute abnormality or significant interval change. Abdomen/Pelvis CT 06/24/18 00:00 CONCLUSION: 1. Benign appearing right adrenal mass. 2. No acute CT findings in the abdomen or pelvis. Chest X-Ray 06/25/18 00:00 CONCLUSION: Suspected mild atelectasis or consolidation at the medial right base. Chest X-Ray 06/26/18 00:00 CONCLUSION: 1. Endotracheal tube is appropriately positioned above the christy. 2. Nasogastric tube traverses the GE junction and is curled in the gastric lumen. 3. Lungs are clear. Abdomen X-Ray 06/26/18 09:21 CONCLUSION: 1. Nonobstructive bowel gas pattern without pneumoperitoneum. 2. Nasogastric tube is curled in the expected location of the gastric body. I believe the portions of the tube identified over the heart shadow is probably projectional as there is no evidence of a significant hiatal hernia on the most recent CT of the abdomen. Chest X-Ray 06/26/18 15:37 CONCLUSION: 1. Lungs remain clear. 2. Interval placement of a right IJ central venous catheter with the tip projecting over the central venous system. No pneumothorax. 3. Endotracheal and nasogastric tubes remain appropriately positioned. Abdomen/Bladder Ultrasound 06/28/18 00:00 CONCLUSION: 1. Echogenic kidneys characteristic of medical renal disease. No hydronephrosis. Bladder decompressed by Moreno Chest X-Ray 06/28/18 06:00 CONCLUSION: The lungs are clear. Lines and tubes stable. Chest X-Ray 06/29/18 06:00 CONCLUSION: The lungs are clear. Lines and tubes stable. Venous Doppler Study 07/01/18 00:00 CONCLUSION: 1. The study is negative for bilateral lower extremity deep venous thrombosis. Chest X-Ray 07/01/18 20:41 CONCLUSION: Negative examination. Chest CTA 07/02/18 00:00 CONCLUSION: 1. No pulmonary embolus. 2. Diffuse but basilar predominant bilateral airspace disease. 3. Endotracheal and endobronchial secretions are demonstrated. 4. Moderate emphysema. 5. Left ventricular hypertrophy. Venous Doppler Study 07/02/18 00:00 CONCLUSION: 1. Limited, no evidence for thrombosis. Chest X-Ray 07/02/18 04:04 CONCLUSION: 1. Interim intubation and nasogastric tube placement as above. 2. Mild bibasilar atelectasis has developed. Abdomen/Pelvis CT 07/02/18 04:20 CONCLUSION: Colonic distention most likely representing moderate adynamic ileus. However, distal sigmoid colon is decompressed and a sigmoid stricture is conceivable but considered less likely. Apparent mild proctitis. Clinical surveillance and follow-up CT recommended. Chest X-Ray 07/02/18 14:46 CONCLUSION: Left IJ line in good position. There is no pneumothorax. Abdomen X-Ray 07/04/18 00:01 CONCLUSION: Findings of colonic ileus Chest X-Ray 07/04/18 06:00 CONCLUSION: Cardiomegaly and findings of vascular congestion without overt failure. There has been no significant change when compared to the prior exam. Abdomen X-Ray 07/05/18 07:08 CONCLUSION: No significant interval change with persistent diffuse air-filled distention of the colon suggesting ileus. Chest X-Ray 07/07/18 07:12 CONCLUSION: Minimal bibasilar densities likely atelectasis. Abdomen X-Ray 07/07/18 07:13 CONCLUSION: Gaseous distention of multiple bowel loops has improved since previous study. Abdomen X-Ray 07/09/18 07:14 CONCLUSION: 1. Apparent interval removal of NGT. 2. Improving bowel gas pattern consistent with improving adynamic ileus. Abdomen/Pelvis CT 07/10/18 08:31 CONCLUSION: 1. There is gas and fluid distending the colon. The patient has a rectal tube in place however the rectal tube is kinked back on itself and occluded. The overall size of the colon has mildly increased when compared to previous exam. The small bowel is normal in caliber. 2. Interval development of a small left basilar effusion and atelectasis. Chest X-Ray 07/10/18 08:42 CONCLUSION: Mild patchy bilateral lung base opacity likely representing atelectasis unchanged. Small left pleural effusion now seen. Abdomen X-Ray 07/11/18 00:00 CONCLUSION: 1. Questionable NGT at the GE junction, as above. 2. Moderately improved colonic distention. Abdomen X-Ray 07/12/18 00:00 CONCLUSION: Probable generalized ileus. No abrupt caliber changes are seen. No free air. Nasogastric tube tip is in the upper stomach. No gastric distention seen. Abdomen X-Ray 07/14/18 06:00 CONCLUSION: Distended air-filled colon. Ileus is the most likely etiology for this pattern. Abdomen X-Ray 07/15/18 00:00 CONCLUSION: Persistent air-filled loops of small and large bowel suggesting probably ileus. Clinical correlation is recommended. Venous Doppler Study 07/15/18 00:00 CONCLUSION: 1. Limited suboptimal examination. 2. Nonocclusive thrombus in the jugular vein. Chest X-Ray 07/16/18 10:00 CONCLUSION: Mild bibasilar consolidations, presumably atelectasis is unchanged. Abdomen X-Ray 07/19/18 14:09 CONCLUSION: Negative examination. Chest X-Ray 07/19/18 14:10 CONCLUSION: 1. No acute cardiopulmonary disease. 2. Mild degenerative changes and scoliosis of the thoracic spine. Chest X-Ray 07/23/18 00:00 CONCLUSION: Negative examination. Chest X-Ray 07/24/18 00:00 CONCLUSION: Mild bibasilar consolidation. Chest X-Ray 07/25/18 04:00 CONCLUSION: Previous basilar opacity has resolved. No new infiltrate or effusion. Abdomen X-Ray 07/26/18 00:00 CONCLUSION: Orogastric tube tip is in the distal stomach or proximal duodenum. Chest X-Ray 07/26/18 17:00 CONCLUSION: 1. ETT in good position. 2. No acute abnormality. Chest X-Ray 07/27/18 04:00 CONCLUSION: Endotracheal tube and nasogastric tube in good position. Minimal dependent atelectasis in the lungs. Abdomen X-Ray 07/28/18 00:01 CONCLUSION: Mild ileus. No evidence for obstruction or free air. Chest X-Ray 07/28/18 06:00 CONCLUSION: Mild basilar atelectasis. No effusion or pneumothorax. Objective Remarks: GENERAL: 73-year-old elderly -[place] male sitting in bed, currently orotracheally intubated SKIN: Warm and dry HEAD: Normocephalic. EYES: PERRL NECK: Supple, trachea midline. Airway widely patent, no obstructive noises CARDIOVASCULAR: Regular rate and regular rhythm. 12, S2. No S4. No murmur RESPIRATORY: Diminished breath sounds in bases noted .B/L equal air entry, patient noted to be dyspneic, with accessory muscle use GASTROINTESTINAL: Abdomen distended and firm, non-tender, no guarding, bowel sounds present MUSCULOSKELETAL: 1+ bilateral upper/ lower extremity edema, warm and well- perfused Neuro: Sedated on a propofol drip. Positive gag and cough. Positive corneal reflex. Withdraws to pain bilateral upper and lower extremities. Opens eyes to voice. Assessment and Plan - Assessment and Plan Plan: NEURO/Psych: Altered mental status due to CO2 retention -Monitor neuro status, avoid sedatives -F/U acetylcholine receptor and autoantibodies RESP: Hypercapnic respiratory failure Acute COPD exacerbation -Extubated 06/29. Reintubated 07/02 extubated again 07/07, reintubated 07/26 -Patient currently on PRVC -Albuterol/ipratropium aerosols every 4 hours scheduled and albuterol aerosols every 2 hours as needed -Wean methylprednisolone succinate from 40 mg to 20 mg daily -Inhaled budesonide -07/25 chest x-ray noted improvement resolution of bibasilar opacities CV: Essential hypertension - Monitor HR and BP keep MAP>65mmHg -Currently on diltiazem 60 mg by tube every 6 hours. This could be causing constipation as well. Will switch to IV metoprolol 2.5 mg IV every 6 hours. GI: Colonic ileus -KUB 07/13: Stable nonobstructive colonic distention. Given Neostigmine 07/11. -s/p repeat decompressive colonoscopy 07/10 and 07/15 -Continue pantoprazole -On docusate sodium/senna 1 tablet twice daily, lactulose 30 cc 4 times daily, polyethylene glycol 17 g daily. Fleets enema daily. Naltrexone 12 mg subcu daily -Insert NG tube. Started tube feeding today FEN//renal: -Monitor renal function, I/O's, avoid nephrotoxins -Renal function worse today 0.9-1.4. Monitor -Renal- Dr. Figueroa as followed per ID: -Off abx monitor for signs of infections (Fever, WBC) WBC stable -BC and urine cx from 07/11- NG in 5 days -07/02 BC: NGTS, sputum cx 07/02:normal resp justyn -ID is following- Dr. Brown PRN HEME: Normocytic anemia Thrombocytopenia -Monitor CBC, coags, Hep PLT is positive. ANNMARIE negative. Hematology is following. Off argatroban drip -s/p 2U PRBCs on 07/16, Hgb 8.8, used for hemoglobin less than 7 -Stable thrombocytopenia-avoid medications that precipitate thrombocytopenia -Strict bedrest for now ENDO: -Sliding scale insulin medium scale PROPH: -Bilateral lower extremity SCDs. PPI -Doppler US LE negative DVT 07/02 LINES: -Utilize peripheral IVs Level 2
[2018-07-28] MEDS: Polyethylene Glycol 3350 17 GM Packet PO SCH (10:40)
[2018-07-28] MEDS: Sennosides Liq 8.8 MG/5 ML UDC NG/OG SCH ×2 (10:40→21:23)
[2018-07-28] MEDS: Docusate Sodium Liq 100 MG/10 ML UDC NG/OG SCH ×2 (10:40→21:23)
[2018-07-28] MEDS: MethylPREDNISolone Sod Succinate Inj 40 MG/ML Vial IV.PUSH SCH (10:41)
[2018-07-28] MEDS: Bisacodyl 10 MG Supp RECTAL SCH (10:41)
[2018-07-28] MEDS: Methylnaltrexone Inj 12 MG/0.6 ML Vial SQ SCH (10:44)
[2018-07-28] MEDS: Artificial Tears Opth Drops 15 ML Bottle EACH EYE SCH ×2 (10:50→17:25)
--- NOTE | 2018-07-28 16:02 | P.PNPAL ---
Reason for Visit Reason for visit: a. To assist with evaluation and management of symptoms including: pain, dyspnea b. To assist medical decision maker(s) with: better understanding of current medical conditions; weighing benefits/burdens of medical treatment options; making medical treatment decisions. Subjective Subjective/Interval History: Follow up visit for symptom management of pain and dyspnea and clarification of medical treatment. Mr. Curry remains in [facility], sedated and intubated on mechanical ventilation. FiO2 35%; PEEP 5 . Tolerating spontaneous breathing trials. Follow-up chest x- ray this morning showing mild basilar density, likely atelectasis. No effusion or pneumothorax was noted. Pulmonology following. Tolerating artificial nutrition at 20ml/hour. Abdominal x-ray on 07/28/2018 showing mild ileus; no evidence for obstruction or free air. Clinical data: * WBC 5.3, hemoglobin 8.9, hematocrit 25.3, platelets 84, neutrophils 84.8% * Sodium: 142, potassium 3.7, chloride 97, carbon dioxide 36.7, glucose 307, calcium 7.3, prot corrected calcium 8.0, phosphorus 2.1, magnesium 2.1 * BUN: 20, creatinine 1.44, GFR 58 * Total bilirubin: 0.9, AST 25, ALT 45, alkaline phosphatase 83 * Total protein: 5.8, albumin 3.3 * Urinalysis with blood, leukocyte esterase, WBC clumps, mucus and yeast. Urine culture pending. * 07/24/2018: Acetylcholine receptor binding antibodies pending Spoke with patient's daughter, Stephanie. She states she and her aunts are making medical decisions for her father as a group because she does not live locally and is not always readily available. Update provided on patient's medical condition status post reintubation on 07/26/2018. Stephanie tells me that her father has told her he is not ready to , and he would want everything done to keep him alive up to and including tracheostomy if indicated. Family/Friend Interactions: See interval history Objective Vital Signs: Vital Signs 07/27/18 15:31 07/27/18 16:00 07/27/18 20:00 Temperature 97.8 F 99.1 F Pulse Rate 80 81 91 H Respiratory Rate 16 16 16 Blood Pressure 110/66 130/80 Pulse Oximetry 100 100 07/27/18 20:13 07/27/18 20:14 07/27/18 22:00 Temperature Pulse Rate 101 H 103 H Respiratory Rate 16 16 Blood Pressure Pulse Oximetry 100 07/28/18 00:00 07/28/18 00:05 07/28/18 00:06 Temperature 99.7 F H Pulse Rate 90 91 H Respiratory Rate 16 16 17 Blood Pressure 127/64 Pulse Oximetry 100 100 07/28/18 02:00 07/28/18 03:57 07/28/18 03:59 Temperature Pulse Rate 98 H 111 H Respiratory Rate 18 16 Blood Pressure Pulse Oximetry 100 07/28/18 04:00 07/28/18 06:00 07/28/18 07:54 Temperature 99.7 F H Pulse Rate 122 H 122 H 122 H Respiratory Rate 19 16 Blood Pressure 93/53 L Pulse Oximetry 100 100 07/28/18 12:04 07/28/18 12:10 Temperature Pulse Rate 106 H Respiratory Rate 8 L 8 L Blood Pressure Pulse Oximetry 99 Intake & Output 07/27/18 07/28/18 07/28/18 18:59 06:59 18:59 Intake Total 581 / 581 1169 / 1169 200 / 200 Output Total 651 / 651 1050 / 1050 Balance -70 / -70 119 / 119 200 / 200 Weight 80.3 kg Intake: IV 100 / 100 578 / 578 200 / 200 Diprivan 1000 mg/100 ml Inj 1, 100 / 100 100 / 100 200 / 200 000 mg In 100 ml @ 5 MCG/KG/MIN 2.397 mls/hr IV.CONT TITRATE PRN Rx#:[id number] Magnesium Sulfate Inj 4 GM In 108 / 108 D5W Inj 100 ML @ 25 mls/hr IV. SIG ONCE ONE Rx#:[id number] Potassium Phosphate Inj 30 MMOL 260 / 260 In NS Inj 250 ML @ 43.333 mls/ hr IV.SIG ONCE ONE Rx#:[id number] Oral 0 / 0 Tube Feeding 80 / 80 Water Bolus Amount 30 / 30 Other 481 / 481 481 / 481 Output: Urine 650 / 650 Stool 1 / 1 0 / 0 Urine Amount (Catheter) 1050 / 1050 Condom 200 / 200 Straight 850 / 850 Other: Other Intake Source Saline Solution Saline Solution Date of Last Bowel Movement 07/27/18 07/27/18 Physical Exam: CONSTITUTIONAL/GENERAL: This is an elderly, male patient currently sedated and intubated on mechanical ventilation TUBES/LINES/DRAINS: PIV x 2, ETT, OGT, put his boots, SCDs, indwelling Moreno catheter, soft restraints SKIN: No jaundice, rashes, or lesions. Ecchymoses on upper extremities. No wounds seen anteriorly. Skin temperature appropriate. Not diaphoretic. HEAD: Atraumatic. Normocephalic. EYES: Pupils equal and round and reactive. Extraocular motions intact. No scleral icterus. No injection or drainage. Fundi not examined. ENT: Hearing grossly normal. Nose without bleeding or purulent drainage. NECK: Trachea midline. Supple, nontender. No palpable thyroid enlargement or nodularity. CARDIOVASCULAR: Regular rate and rhythm without murmurs, gallops, or rubs. No JVD. Peripheral pulses symmetric. RESPIRATORY/CHEST: Intubated on mechanical ventilation. No wheezing, rales or rhonchi GASTROINTESTINAL: Abdomen firm, nontender. No guarding. Bowel sounds present. GENITOURINARY: Without palpable bladder distension. Moreno catheter in place. MUSCULOSKELETAL: Extremities without clubbing, cyanosis, or edema. No mottling or clubbing. LYMPHATICS: No palpable cervical or supraclavicular adenopathy. NEUROLOGICAL: Sedated PSYCHIATRIC: No obvious anxiety/depression. No apparent hallucinations or other psychotic thought process. Diagnostic Tests Laboratory: Laboratory Results - last 72 hr 07/22/18 07/26/18 07/26/18 15:53 05:42 05:42 WBC 4.0 RBC 2.89 L Hgb 9.1 L Hct 27.1 L MCV 93.7 MCH 31.5 MCHC 33.6 RDW 15.0 Plt Count 82 L MPV 9.8 Prelim Diff (Auto) Slide review pending Neut % (Auto) 88.3 H Lymph % (Auto) 5.0 L [place] % (Auto) 6.6 Eos % (Auto) 0.0 Baso % (Auto) 0.1 Neut # (Auto) 3.5 Lymph # (Auto) 0.2 L [place] # (Auto) 0.3 Eos # (Auto) 0.0 Baso # (Auto) 0.0 WBC Differential . Diff Scan Auto diff confirmed Seg Neuts % (Manual) Band Neuts % (Manual) Lymphocytes % (Manual) Monocytes % (Manual) Myelocytes % (Man) Abs Neuts (Manual) Nucleated RBCs/100 WBC Differential Comment . Platelet Estimate Low L Platelet Morphology Normal Puncture Site Patient Temperature O2 Saturation ABG pH ABG pCO2 ABG pO2 ABG HCO3 ABG O2 Content ABG Base Excess ABG Methemoglobin Raymon Test Hemoglobin Carboxyhemoglobin O2 Delivery Device Liter Flow Vent Setting Inspired O2 Critical Value Sodium 144 Potassium 3.5 Chloride 97 L Carbon Dioxide 41.3 H Anion Gap 6 BUN 17 Creatinine 0.82 Estimated GFR Greater than 89 Random Glucose 281 H Calcium 7.3 L* Prot Corrected Calcium 7.6 L Phosphorus 2.9 D Magnesium 1.4 L Total Bilirubin AST ALT Alkaline Phosphatase Total Protein 6.5 Albumin Urine Color Urine Clarity Urine pH Ur Specific [place] Urine Protein Urine Glucose (UA) Urine Ketones Urine Occult Blood Urine Nitrate Urine Bilirubin Urine Urobilinogen Ur Leukocyte Esterase Urine RBC Urine WBC Urine WBC Clumps Urine Mucus Urine Yeast Micro UA Comment Ur Microscopic Review Urine Culture Comments Hepatitis A Ab Total Nonreactive Hepatitis Be Antigen Nonreactive 07/26/18 07/27/18 07/27/18 15:55 05:12 05:12 WBC 3.9 L RBC 2.78 L Hgb 8.9 L Hct 26.5 L MCV 95.5 MCH 31.9 MCHC 33.4 RDW 15.2 Plt Count 73 L MPV 10.1 Prelim Diff (Auto) Slide review pending Neut % (Auto) 88.4 H Lymph % (Auto) 5.8 L [place] % (Auto) 5.7 Eos % (Auto) 0.0 Baso % (Auto) 0.1 Neut # (Auto) 3.4 Lymph # (Auto) 0.2 L [place] # (Auto) 0.2 Eos # (Auto) 0.0 Baso # (Auto) 0.0 WBC Differential Manual diff final Diff Scan Seg Neuts % (Manual) 76 H Band Neuts % (Manual) 14 H Lymphocytes % (Manual) 7 L Monocytes % (Manual) 3 Myelocytes % (Man) Abs Neuts (Manual) 3.5 Nucleated RBCs/100 WBC 1 H Differential Comment . Platelet Estimate Low L Platelet Morphology Normal Puncture Site Right radial Patient Temperature 98.6 O2 Saturation 83 L* ABG pH 7.46 H ABG pCO2 58 H* ABG pO2 46 L* ABG HCO3 41 H ABG O2 Content 10.8 L ABG Base Excess 16.1 H ABG Methemoglobin 1.8 Raymon Test Present Hemoglobin 9.3 L Carboxyhemoglobin 1.5 O2 Delivery Device High flow Liter Flow 30.00 Vent Setting Inspired O2 21 Critical Value Yes Sodium 146 H Potassium 3.7 Chloride 98 Carbon Dioxide 43.7 H Anion Gap 4 L BUN 17 Creatinine 0.91 Estimated GFR Greater than 89 Random Glucose 236 H Calcium 7.0 L* Prot Corrected Calcium 7.6 L Phosphorus 2.0 L Magnesium 1.5 Total Bilirubin AST ALT Alkaline Phosphatase Total Protein 5.9 L D Albumin Urine Color Urine Clarity Urine pH Ur Specific [place] Urine Protein Urine Glucose (UA) Urine Ketones Urine Occult Blood Urine Nitrate Urine Bilirubin Urine Urobilinogen Ur Leukocyte Esterase Urine RBC Urine WBC Urine WBC Clumps Urine Mucus Urine Yeast Micro UA Comment Ur Microscopic Review Urine Culture Comments Hepatitis A Ab Total Hepatitis Be Antigen 07/28/18 07/28/18 07/28/18 05:02 05:02 05:08 WBC 5.3 RBC 2.74 L Hgb 8.9 L Hct 25.3 L MCV 92.1 MCH 32.4 MCHC 35.2 RDW 15.3 Plt Count 84 L MPV 10.4 Prelim Diff (Auto) Slide review pending Neut % (Auto) 84.8 H Lymph % (Auto) 10.3 [place] % (Auto) 4.7 Eos % (Auto) 0.0 Baso % (Auto) 0.2 Neut # (Auto) 4.5 Lymph # (Auto) 0.5 L [place] # (Auto) 0.3 Eos # (Auto) 0.0 Baso # (Auto) 0.0 WBC Differential Manual diff final Diff Scan Seg Neuts % (Manual) 82 H Band Neuts % (Manual) 8 H Lymphocytes % (Manual) 5 L Monocytes % (Manual) 3 Myelocytes % (Man) 2 H Abs Neuts (Manual) 4.9 Nucleated RBCs/100 WBC 3 H Differential Comment . Platelet Estimate Low L Platelet Morphology Enlarged H Puncture Site Right radial Patient Temperature 98.6 O2 Saturation 95 ABG pH 7.54 H* ABG pCO2 45 H ABG pO2 100 ABG HCO3 38 H ABG O2 Content 11.7 L ABG Base Excess 13.8 H ABG Methemoglobin 2.4 H Raymon Test Present Hemoglobin 8.7 L Carboxyhemoglobin 1.2 O2 Delivery Device Ventilator Liter Flow Vent Setting Prvc/ac Inspired O2 35 Critical Value Yes Sodium 142 Potassium 3.7 Chloride 97 L Carbon Dioxide 36.7 H Anion Gap 8 BUN 20 H Creatinine 1.44 H Estimated GFR 58 L Random Glucose 307 H Calcium 7.3 L* Prot Corrected Calcium 8.0 L Phosphorus 2.1 L Magnesium 2.1 D Total Bilirubin 0.9 AST 25 ALT 45 Alkaline Phosphatase 83 Total Protein 5.8 L Albumin 3.3 L Urine Color Urine Clarity Urine pH Ur Specific [place] Urine Protein Urine Glucose (UA) Urine Ketones Urine Occult Blood Urine Nitrate Urine Bilirubin Urine Urobilinogen Ur Leukocyte Esterase Urine RBC Urine WBC Urine WBC Clumps Urine Mucus Urine Yeast Micro UA Comment Ur Microscopic Review Urine Culture Comments Hepatitis A Ab Total Hepatitis Be Antigen 07/28/18 06:00 WBC RBC Hgb Hct MCV MCH MCHC RDW Plt Count MPV Prelim Diff (Auto) Neut % (Auto) Lymph % (Auto) [place] % (Auto) Eos % (Auto) Baso % (Auto) Neut # (Auto) Lymph # (Auto) [place] # (Auto) Eos # (Auto) Baso # (Auto) WBC Differential Diff Scan Seg Neuts % (Manual) Band Neuts % (Manual) Lymphocytes % (Manual) Monocytes % (Manual) Myelocytes % (Man) Abs Neuts (Manual) Nucleated RBCs/100 WBC Differential Comment Platelet Estimate Platelet Morphology Puncture Site Patient Temperature O2 Saturation ABG pH ABG pCO2 ABG pO2 ABG HCO3 ABG O2 Content ABG Base Excess ABG Methemoglobin Raymon Test Hemoglobin Carboxyhemoglobin O2 Delivery Device Liter Flow Vent Setting Inspired O2 Critical Value Sodium Potassium Chloride Carbon Dioxide Anion Gap BUN Creatinine Estimated GFR Random Glucose Calcium Prot Corrected Calcium Phosphorus Magnesium Total Bilirubin AST ALT Alkaline Phosphatase Total Protein Albumin Urine Color Yellow Urine Clarity Cloudy H Urine pH 6.0 Ur Specific [place] 1.010 Urine Protein 30 H Urine Glucose (UA) 150 H Urine Ketones Negative Urine Occult Blood Small H Urine Nitrate Negative Urine Bilirubin Negative Urine Urobilinogen Less than 2 Ur Leukocyte Esterase Large H Urine RBC 164 H Urine WBC Urine WBC Clumps Few H Urine Mucus Few H Urine Yeast Many H Micro UA Comment Cath-culture ind Ur Microscopic Review Not Reportable Urine Culture Comments Cath-cult indicated Hepatitis A Ab Total Hepatitis Be Antigen Result Diagrams: 07/28/18 05:02 07/28/18 05:02 Imaging: Abdomen Ultrasound 06/21/18 00:00 CONCLUSION: 1. No ascites is identified within the abdomen. Abdomen/Bladder Ultrasound 06/28/18 00:00 CONCLUSION: 1. Echogenic kidneys characteristic of medical renal disease. No hydronephrosis. Bladder decompressed by Moreno Chest CTA 07/02/18 00:00 CONCLUSION: 1. No pulmonary embolus. 2. Diffuse but basilar predominant bilateral airspace disease. 3. Endotracheal and endobronchial secretions are demonstrated. 4. Moderate emphysema. 5. Left ventricular hypertrophy. Abdomen/Pelvis CT 07/10/18 08:31 CONCLUSION: 1. There is gas and fluid distending the colon. The patient has a rectal tube in place however the rectal tube is kinked back on itself and occluded. The overall size of the colon has mildly increased when compared to previous exam. The small bowel is normal in caliber. 2. Interval development of a small left basilar effusion and atelectasis. Venous Doppler Study 07/15/18 00:00 CONCLUSION: 1. Limited suboptimal examination. 2. Nonocclusive thrombus in the jugular vein. Abdomen X-Ray 07/28/18 00:01 CONCLUSION: Mild ileus. No evidence for obstruction or free air. Chest X-Ray 07/28/18 06:00 CONCLUSION: Mild basilar atelectasis. No effusion or pneumothorax. 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 Pertinent Non-Medical Issues: Psychosocial: Patient is a . He is a . Spiritual: Episcopal mark Legal: Per [place] statutes, in the absence of written advanced directives healthcare proxy decision making falls to the patient's adult children Ethical issues impacting care: No known ethical issues impacting care at this time Important Contacts: Stephanie Craig, daughter: [phone] Felicitas Hood, other relationship: [phone] Sara Maldonado, sister: [phone] Prognosis: Patient is an elderly male with severe COPD who was admitted with a COPD exacerbation. He has been in and out of the intensive care unit; respiratory status is borderline. Patient remains high risk for decompensation ongoing decline. Code Status: Full Code Plan: * FULL CODE * Decision making: Patient is . He has only 1 known child. Per [place] statutes, in the absence of written advanced directives healthcare proxy decision making falls to the patient's daughter, Stephanie. * Discussed patient with bedside RN (Ramonita) as well as Dr. Hugo * Spoke with patient's daughter, Stephanie. She states she and her aunts are making medical decisions for her father as a group because she does not live locally and is not always readily available. Update provided on patient's medical condition status post reintubation on 07/26/2018 (4th intubation since admission) Stephanie tells me that her father has told her he is not ready to , and he would want everything done to keep him alive up to and including tracheostomy if indicated. * Symptom management: Pain: Multifactorial. Contributing factors include chronic back pain, abdominal distention, colonic ileus, infection, invasive lines, intubation. Currently sedated on propofol 50mcg/kg/min. [place] 10/325 is available q4 hours PRN. Patient has has 2 doses in the past Dyspnea: Patient has required intubation four times since admission. Tolerating spontaneous breathing trials. Follow-up chest x-ray this morning showing mild basilar density, likely atelectasis. No effusion or pneumothorax was noted. Pulmonology following. On Albuterol nebulizers (scheduled and PRN), Pulmicort every 12 hours and Solu-Medrol daily. Family amenable to tracheostomy if indicated. * Palliative care will continue to follow this patient throughout his hospitalization to establish trust, assist with symptom management and clarification of medical treatment goals. . Attestation Attestation: To help prompt me to consider important information that might be impacting today's encounter and assessment, information from prior notes written by myself or my colleagues may have been "brought forward" into today's note. My signature on this note, however, is an attestation that I personally performed the exam, history, and/or decision-making noted today, and, unless otherwise indicated, the interactions with patient, family, and staff as well as the review of records all occurred today. I also attest that the listed assessment and stated plan reflect my best clinical judgment today based on the combination of historical information, prior notes, and today's exam/ interactions. When time spent is documented, it refers only to time spent today by the signer, or if indicated, combined time spent today by collaborating physician/nurse practitioner.
--- NOTE | 2018-07-28 19:00 | P.PNPL ---
Subjective Interval history: 73 YOAA male with COPD, 02 dependent Follows at [facility] Admitted with AMS, COPD exac Reintubated 07/26 due to worsening resp status Sedated with Diprivan Did't tolerate CPAP Physical Exam Vital signs: Vital Signs 07/27/18 20:00 07/27/18 20:13 07/27/18 20:14 Temperature 99.1 F Pulse Rate 91 H 101 H Respiratory Rate 16 16 16 Blood Pressure 130/80 Pulse Oximetry 100 100 07/27/18 22:00 07/28/18 00:00 07/28/18 00:05 Temperature 99.7 F H Pulse Rate 103 H 90 91 H Respiratory Rate 16 16 Blood Pressure 127/64 Pulse Oximetry 100 07/28/18 00:06 07/28/18 02:00 07/28/18 03:57 Temperature Pulse Rate 98 H 111 H Respiratory Rate 17 18 Blood Pressure Pulse Oximetry 100 07/28/18 03:59 07/28/18 04:00 07/28/18 06:00 Temperature 99.7 F H Pulse Rate 122 H 122 H Respiratory Rate 16 19 Blood Pressure 93/53 L Pulse Oximetry 100 100 07/28/18 07:54 07/28/18 08:00 07/28/18 10:00 Temperature Pulse Rate 122 H 123 H 108 H Respiratory Rate 16 Blood Pressure Pulse Oximetry 100 07/28/18 12:00 07/28/18 12:04 07/28/18 12:10 Temperature Pulse Rate 108 H 106 H Respiratory Rate 8 L 8 L Blood Pressure Pulse Oximetry 99 07/28/18 14:00 07/28/18 15:28 07/28/18 16:00 Temperature Pulse Rate 104 H 102 H 103 H Respiratory Rate 8 L Blood Pressure Pulse Oximetry 100 07/28/18 18:00 Temperature Pulse Rate 103 H Respiratory Rate Blood Pressure Pulse Oximetry Intake & Output 07/27/18 07/28/18 07/28/18 18:59 06:59 18:59 Intake Total 581 / 581 1169 / 1169 1463 / 1463 Output Total 651 / 651 1050 / 1050 900 / 900 Balance -70 / -70 119 / 119 563 / 563 Weight 80.3 kg Intake: IV 100 / 100 578 / 578 300 / 300 Diprivan 1000 mg/100 ml Inj 1, 100 / 100 100 / 100 300 / 300 000 mg In 100 ml @ 5 MCG/KG/MIN 2.397 mls/hr IV.CONT TITRATE PRN Rx#:[id number] Magnesium Sulfate Inj 4 GM In 108 / 108 D5W Inj 100 ML @ 25 mls/hr IV. SIG ONCE ONE Rx#:[id number] Potassium Phosphate Inj 30 MMOL 260 / 260 In NS Inj 250 ML @ 43.333 mls/ hr IV.SIG ONCE ONE Rx#:[id number] Oral 0 / 0 0 / 0 Tube Feeding 80 / 80 398 / 398 Tube Irrigant 0 / 0 Water Bolus Amount 30 / 30 90 / 90 Anesthesia Amount 0 / 0 Other 481 / 481 481 / 481 675 / 675 Output: Urine 650 / 650 Stool 1 / 1 0 / 0 0 / 0 Urine/Stool Mix 0 / 0 Pleural Fluid 0 / 0 Urine Amount (Catheter) 1050 / 1050 900 / 900 Condom 200 / 200 900 / 900 Straight 850 / 850 Gastric Drainage 0 / 0 Right Nare Nasogastric Tube 0 / 0 Other: Other Intake Source Saline Solution Saline Solution # Voids 2 # Incontinent Voids 1 Date of Last Bowel Movement 07/27/18 07/27/18 07/27/18 # Bowel Movements 1 # Incontinent Bowel Movements 1 GENERAL: Obese AA male, on Vent SKIN: Warm and dry. HEAD: Normocephalic. EYES: No scleral icterus. No injection or drainage. NECK: Supple, trachea midline. No JVD or lymphadenopathy. CARDIOVASCULAR: Regular rate and rhythm without murmurs, gallops, or rubs. RESPIRATORY: Breath sounds equal bilaterally. No accessory muscle use. GASTROINTESTINAL: Abdomen soft, non-tender, distended. MUSCULOSKELETAL: No cyanosis, or edema. BACK: Nontender without obvious deformity. No CVA tenderness. 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 Abdominal distension, s/p decompression. Ileus PLAN: Cont vent support Sedation with Diprivan Aerosol nebs Supplement 02 Solumedrol 20 mg q day Monitor BS CPAP trial in AM DW
--- NOTE | 2018-07-28 22:06 | P.PNCS ---
Subjective Interval history: afebrile, VSS UO adeq NGT feedings alonso on vent Objective Result Diagrams: 07/28/18 05:02 07/28/18 05:02 Objective Remarks: Awake with tachypnea. Abd: soft, mild distention. Not tender., min tympany Assessment and Plan - Plan Imp: on vent due to resp failure Abd - colonic ileus stable, less distended ? stools cont conservative Rx will see prn if ileus returns
[2018-07-29] MEDS: Artificial Tears Opth Drops 15 ML Bottle EACH EYE SCH ×3 (01:06→15:25)
[2018-07-29] MEDS: Pantoprazole Inj 40 MG Vial IV.PUSH SCH ×2 (01:06→15:22)
[2018-07-29] MEDS: Metoprolol Inj 5 MG/5 ML Vial IV.PUSH SCH ×5 (01:06→22:03)
[2018-07-29] MEDS: Propofol 1000 mg/100 ml Inj 1,000 MG/100 ML BOTTLE IV.CONT PRN ×6 (01:08→22:20)
--- NOTE | 2018-07-29 01:57 | XR ---
EXAM DATE: 07/29/2018 1:38 AM EST AGE/SEX: 73 years / Male INDICATIONS: Short of breath. CLINICAL DATA: This is the patient's subsequent encounter. Patient reports that signs and symptoms h ave been present for 1 week and indicates a pain score of 0/10. MEDICAL/SURGICAL HISTORY: . Chronic obstructive pulmonary disease. Diabetes. Hypertension. No ne. COMPARISON: [facility], CHEST 1V SINGLE AP, 07/28/2018. . FINDINGS: Endotracheal tube in good position. NG enters stomach. Mild basilar airspace disease stable to slight ly increased from July 28. No effusion. CONCLUSION: Endotracheal tube and nasogastric tube unchanged. Stable to slight increase in basilar airspace disea se since July 28. Electronically signed by: Angus Millan MD 07/29/2018 1:56 AM EST
--- NOTE | 2018-07-29 01:58 | XR ---
EXAM DATE: 07/29/2018 1:37 AM EST AGE/SEX: 73 years / Male INDICATIONS: Short of breath. CLINICAL DATA: This is the patient's subsequent encounter. Patient reports that signs and symptoms h ave been present for 1 week and indicates a pain score of 0/10. MEDICAL/SURGICAL HISTORY: . Chronic obstructive pulmonary disease. Diabetes. Hypertension. No ne. COMPARISON: [facility] – [place], ABDOMEN S[place], 07/28/2018. . FINDINGS: NG tip is in the second portion of the duodenum. Bowel gas pattern nonspecific without evidence for o bstruction or free air. No acute bony abnormalities. CONCLUSION: NG tip in duodenum. No acute findings. Electronically signed by: Angus Millan MD 07/29/2018 1:57 AM EST
[2018-07-29] MEDS: Insulin NovoLOG Aspart Correctional Sugar Inj SQ SCH ×5 (04:26→21:54)
[2018-07-29 06:15] LABS: Baso % (Auto) 0.1 % (0.0-2.0); Hematocrit 26.3 % (39.0-51.0); Hemoglobin 8.8 gm/dL (13.0-17.0); Lymph # (Auto) 0.6 th/mm3 (1.0-4.8); Lymph % (Auto) 10.6 % (9.0-44.0); Mean Corpuscular HGB Conc 33.5 % (32.0-36.0); Mean Corpuscular Hemoglobin 31.9 pg (27.0-34.0); Mean Corpuscular Volume 95.2 fL (80.0-100.0); Mean Platelet Volume 10.2 fL (7.0-11.0); Mono # (Auto) 0.3 th/mm3 (0.0-0.9); Mono % (Auto) 4.6 % (0.0-8.0); Neut # (Auto) 4.9 th/mm3 (1.8-7.7); Neut % (Auto) 84.7 % (16.0-70.0); Platelet Count 70 th/mm3 (150-450); Red Blood Count 2.76 mil/mm3 (4.50-5.90); Red Cell Distribution Width 15.5 % (11.6-17.2); White Blood Count 5.8 th/mm3 (4.0-11.0)
[2018-07-29 06:39] LABS: Albumin 3.1 g/dL (3.4-5.0); Calcium 7.1 mg/dL (8.5-10.1); Carbon Dioxide 38.3 meq/L (21.0-32.0); Magnesium 1.5 mg/dL (1.5-2.5); Potassium 3.5 meq/L (3.5-5.1)
[2018-07-29 06:44] LABS: Total Protein 5.6 g/dL (6.4-8.2)
[2018-07-29] MEDS: Docusate Sodium Liq 100 MG/10 ML UDC NG/OG SCH ×2 (08:28→21:54)
[2018-07-29] MEDS: Bisacodyl 10 MG Supp RECTAL SCH (08:29)
[2018-07-29] MEDS: Polyethylene Glycol 3350 17 GM Packet PO SCH (08:30)
[2018-07-29] MEDS: Multivitamin/Minerals Therapeutic Tablet PO SCH (08:31)
[2018-07-29] MEDS: Calcium/Vitamin D 250/125 MG Tablet PO SCH (08:31)
[2018-07-29] MEDS: MethylPREDNISolone Sod Succinate Inj 40 MG/ML Vial IV.PUSH SCH (08:31)
[2018-07-29] MEDS: Methylnaltrexone Inj 12 MG/0.6 ML Vial SQ SCH (08:32)
[2018-07-29] MEDS: Sennosides Liq 8.8 MG/5 ML UDC NG/OG SCH ×2 (08:32→21:54)
[2018-07-29 08:41] LABS: Lymphocytes 4 % (9-44); Monocytes 3 % (0-8); Myelocytes 1 % (0-0)
--- NOTE | 2018-07-29 11:49 | P.PNPL ---
Subjective Interval history: 73 YOAA male with COPD, 02 dependent Follows at [facility] Admitted with AMS, COPD exac Reintubated 07/26 due to worsening resp status On CPAP 15, Fi02 35% Sat 100% Opens eyes, follows commands, feels hungry Physical Exam Vital signs: Vital Signs 07/28/18 12:00 07/28/18 12:04 07/28/18 12:10 Temperature 98.1 F Pulse Rate 108 H 106 H Respiratory Rate 13 8 L 8 L Blood Pressure 116/57 L Pulse Oximetry 98 99 07/28/18 12:30 07/28/18 13:00 07/28/18 13:30 Temperature Pulse Rate 109 H 106 H 107 H Respiratory Rate 36 H 31 H 33 H Blood Pressure 127/62 125/62 128/62 Pulse Oximetry 99 98 98 07/28/18 14:00 07/28/18 14:30 07/28/18 15:00 Temperature Pulse Rate 104 H 101 H 103 H Respiratory Rate 27 H 8 L 32 H Blood Pressure 122/67 123/67 135/69 Pulse Oximetry 100 100 100 07/28/18 15:28 07/28/18 15:30 07/28/18 16:00 Temperature 98.7 F Pulse Rate 102 H 102 H 103 H Respiratory Rate 8 L 6 L 7 L Blood Pressure 115/63 115/69 Pulse Oximetry 100 100 100 07/28/18 16:30 07/28/18 17:00 07/28/18 17:30 Temperature Pulse Rate 101 H 100 H 99 H Respiratory Rate 17 8 L 12 Blood Pressure 114/63 123/66 130/65 Pulse Oximetry 100 100 100 07/28/18 18:00 07/28/18 18:30 07/28/18 19:00 Temperature Pulse Rate 97 H 93 H 84 Respiratory Rate 6 L 16 16 Blood Pressure 132/64 140/70 127/60 Pulse Oximetry 100 100 100 07/28/18 19:30 07/28/18 19:55 07/28/18 20:00 Temperature 98.5 F Pulse Rate 87 87 Respiratory Rate 16 16 16 Blood Pressure 126/62 127/65 Pulse Oximetry 100 100 100 07/28/18 20:04 07/28/18 20:30 07/28/18 21:00 Temperature Pulse Rate 81 90 86 Respiratory Rate 16 16 16 Blood Pressure 140/68 129/62 Pulse Oximetry 100 100 07/28/18 21:30 07/28/18 22:00 07/28/18 22:25 Temperature Pulse Rate 85 75 Respiratory Rate 16 16 16 Blood Pressure 135/66 163/71 H Pulse Oximetry 98 100 100 07/28/18 22:31 07/28/18 23:00 07/28/18 23:01 Temperature Pulse Rate 86 96 H 94 H Respiratory Rate 16 16 16 Blood Pressure 124/61 116/91 H Pulse Oximetry 100 100 100 07/28/18 23:31 07/28/18 23:32 07/29/18 00:00 Temperature 98.3 F Pulse Rate 88 88 77 Respiratory Rate 16 16 16 Blood Pressure 126/61 130/65 Pulse Oximetry 100 100 07/29/18 00:30 07/29/18 01:00 07/29/18 01:25 Temperature Pulse Rate 87 95 H Respiratory Rate 16 16 16 Blood Pressure 130/63 146/71 H Pulse Oximetry 100 100 100 07/29/18 01:30 07/29/18 02:00 07/29/18 02:30 Temperature Pulse Rate 90 81 83 Respiratory Rate 16 16 16 Blood Pressure 137/65 123/60 140/65 Pulse Oximetry 100 100 100 07/29/18 03:00 07/29/18 03:30 07/29/18 04:00 Temperature 98.7 F Pulse Rate 86 91 H 88 Respiratory Rate 16 16 16 Blood Pressure 115/67 116/61 118/66 Pulse Oximetry 100 100 100 07/29/18 04:09 07/29/18 04:30 07/29/18 04:40 Temperature Pulse Rate 93 H 88 Respiratory Rate 16 17 16 Blood Pressure 129/70 Pulse Oximetry 100 100 07/29/18 05:00 07/29/18 05:30 07/29/18 06:00 Temperature Pulse Rate 96 H 96 H 96 H Respiratory Rate 20 16 19 Blood Pressure 129/59 L 128/60 123/57 L Pulse Oximetry 100 100 100 07/29/18 06:31 07/29/18 07:00 07/29/18 07:28 Temperature Pulse Rate 101 H 96 H 100 H Respiratory Rate 15 16 16 Blood Pressure 142/59 H 143/63 H Pulse Oximetry 100 100 100 Intake & Output 07/28/18 07/29/18 07/29/18 18:59 06:59 18:59 Intake Total 1463 / 1463 779 / 779 100 / 100 Output Total 900 / 900 2550 / 2550 Balance 563 / 563 -1771 / -1771 100 / 100 Weight 75.9 kg Intake: IV 300 / 300 300 / 300 100 / 100 Diprivan 1000 mg/100 ml Inj 1, 300 / 300 300 / 300 100 / 100 000 mg In 100 ml @ 5 MCG/KG/MIN 2.397 mls/hr IV.CONT TITRATE PRN Rx#:[id number] Oral 0 / 0 Tube Feeding 398 / 398 359 / 359 Tube Irrigant 0 / 0 120 / 120 Water Bolus Amount 90 / 90 Anesthesia Amount 0 / 0 Other 675 / 675 Output: Stool 0 / 0 Urine/Stool Mix 0 / 0 Pleural Fluid 0 / 0 Urine Amount (Catheter) 900 / 900 2550 / 2550 Condom 900 / 900 Indwelling Urethral Catheter 2550 / 2550 Gastric Drainage 0 / 0 Right Nare Nasogastric Tube 0 / 0 Other: # Voids 2 # Incontinent Voids 1 Date of Last Bowel Movement 07/27/18 07/27/18 # Bowel Movements 1 # Incontinent Bowel Movements 1 GENERAL: Obese AA male, on Vent SKIN: Warm and dry. HEAD: Normocephalic. EYES: No scleral icterus. No injection or drainage. NECK: Supple, trachea midline. No JVD or lymphadenopathy. CARDIOVASCULAR: Regular rate and rhythm without murmurs, gallops, or rubs. RESPIRATORY: Breath sounds equal bilaterally. No accessory muscle use. GASTROINTESTINAL: Abdomen soft, non-tender, distended. MUSCULOSKELETAL: No cyanosis, or edema. BACK: Nontender without obvious deformity. No CVA tenderness. 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 Abdominal distension, s/p decompression. Ileus PLAN: Cont CPAP Weaning parameters Sedation with Diprivan Aerosol nebs Supplement 02 Solumedrol 20 mg q day Monitor BS Will attempt to extubate if good weaning parameters
[2018-07-29] MEDS ORDERED: Magnesium Sulfate Inj 2 GM in Sodium Chlor 0.9% Inj 96 ML IV.SIG ONE (14:04)
[2018-07-29] MEDS ORDERED: Potassium Phosphate Inj 30 MMOL in Sodium Chlor 0.9% Inj 250 ML IV.SIG ONE (14:05)
--- NOTE | 2018-07-29 14:10 | P.PNCC ---
Subjective Subjective Remarks/Hospital Course: Mr. Curry is a 73-year-old -[place] male with past medical history significant for COPD on 3 L nasal cannula, hypertension, hyperlipidemia and anxiety who was admitted to the hospitalist service on 06/19/2018 for worsening shortness of breath due to COPD exacerbation. He was treated with IV Solu- Medrol, IV antibiotics, breathing treatments gradually improved. Patient was also complaining about dyspepsia and underwent EGD by GI yesterday. Per report the EGD was normal but patient developed worsening shortness of breath and COPD exacerbation postprocedure, possibly from aspiration after sedated. Two ABGs done yesterday showed hypercapnic respiratory failure second 1 was on BiPAP and this was improved with pH 7.3 with PCO2 of 74. Patient remained on BiPAP overnight however was noticed to be lethargic today a.m., stat ABG showed pH of 7.21 PCO2 110 PO2 88 while on BiPAP. Patient was lethargic intermittently dozing off due to CO2 narcosis. Critical care medicine was consulted and I immediately evaluated the patient. Patient had obviously failed BiPAP I proceeded with endotracheal intubation placed on mechanical ventilation. Postintubation I have ordered single dose of Solu-Medrol 125 mg x1 continue Solu -Medrol 60 every 8, discontinue ceftriaxone and start cefepime 2 g IV every 8 hours continue azithromycin. Add budesonide inhaled, placed on scheduled DuoNeb every 4 hours and as needed. 06/27: Patient was intubated yesterday for severe hypercapnic respiratory failure. Currently remains intubated sedated and intubated remains diminished bilaterally. Heavily sedated for ventilator synchrony 06/28: Urine output significantly improved with fluid resuscitation. Creat down trending now 2 from 2.3, UO >3.3 L. Remains intubated sedated. Will initiate daily sedation vacation and CPAP trials 06/29: More awake today tolerating CPAP trials intermittently follows commands but gets agitated/frustrated fast. Urine output remains excellent creatinine 1.4. However sodium increasing 158 today. Night therapist occupational had changed fluid to D5 W for free water replacement. Due to hypoglycemia will change to quarter normal saline at 150 mL/h repeat CMP in the afternoon 06/30 Patient was extubated yesterday. Awake 07/01 Patient is lying in bed in NAD. T: 100.5 07/02: Intubated early this morning due to acute hypoxic respiratory failure. Central line placed due to hypotension. Plan for GI perform endoscopic decompression of this large bowel today. Arousable and does follow commands. Placed on argatroban 07/03: Currently, intubated with borderline blood pressure. Central line placed yesterday due to hypotension. Did not move bowels despite 1 L of fluid from colonoscopy yesterday and multiple laxatives provided. See orders for additional laxatives today. Might need neostigmine. 07/04 Patient remains intubated and sedated with Diprivan. Given Neostigmine last night. KUB this morning showed colonic ileus. Afebrile. On Argatroban. 07/05 No events overnight, sedated with Diprivan and intubated. Off Argatroban. 07/06 Patient remains intubated and sedated. Afebrile. 07/07 Patient remains intubated, s/p decompressive colonoscopy yesterday. Awake. 07/08 Patient s/p extubation yesterday. Awake and alert. 07/09 Patient is awake, alert lying in bed in NAD. Afebrile. 07/10 Patient is awake and alert, Afebrile. 07/11 Patient s/p decompressive colonoscopy yesterday. Afebrile. On Lasix drip.( UOP: 2800ml overnight). Cr: 3.0 from 2.25. 07/12 Patient is awake, alert given Neostigmine overnight. NGT to LIWS, off Lasix drip. 07/13: Resting comfortably in bed in no acute distress. 3 bowel movements documented. Remains n.p.o. Bladder pressures around 6. Potassium being replaced. Remains anemic around 7. 07/14 Patient is lying in bed in NAD. Afebrile. 07/15 No events overnight. Afebrile. 07/16: Resting in bed mild distress. Abdomen remains distended. Hemoglobin has dropped to 6.2 2 units of PRBC ordered. Patient underwent decompressive colonoscopy by Dr. Berrios for colonic ileus 07/17: No significant overnight events, patient states that he wants to get out of bed to a chair as he is having rectal discomfort. 07/18: Patient reportedly had a BM after digital rectal exam yesterday, states that he's been passing flatus "every now and then" overnight. No plans for OR or sigmoidoscopy as per colorectal service, OK to transfer out of [facility] 07/19: [facility], complained of shortness of breath again today. An ABG showed a pCO2 of 79 so he was placed on bipap and transferred to [facility]. Most recent ABG shows pCO2 of 66, KUB still has abdominal distension but appears to be improved when compared to KUB from 07/15. Patient has reportedly been having bowel movements and passing flatus overnight. 07/20: No dramatic improvement in abdominal distention however abdomen soft. The patient was able to breathe comfortably overnight and remained alert. This morning the BiPAP mask was removed for half an hour and the patient did well without evidence of CO2 retention or somnolence. Reconsult note 07/23: The patient was a halicat from the [facility] floor. Patient was noted to be somnolent, had difficulty breathing. Stat ABG was performed revealing a PCO2 of 113. The patient was placed on BiPAP and transferred to [facility]. Currently remains on CPAP respiratory rate is 25 , 16/5 with an FiO2 35%. 07/24: Overnight the patient was placed on BiPAP 10/5 refusing BiPAP pulling out IVs. The patient became tachycardic refusing p.o. medications. The patient was placed on a Cardizem infusion currently at 5 mg an hour. Patient is more compliant at this time the patient's BiPAP settings were increased to 15 /5 35% stat ABGs were ordered the patient was noted to have a PCO2 of 89, continues with hypercapnic respiratory failure in the setting of severe COPD. Extensive discussion with family at bedside the patient's sister and daughter provided medical status update on recent transfer to ICU and current standing. Inform family that patient is at risk for for emergent intubation. Repeat ABG pending this evening. 07/25: Patient noted to have episodes of agitation continually removing BiPAP. I discussed with patient the criticality of his illness and possible intubation patient now agrees to wear BiPAP with exception of meals. Patient's diet was advanced to clear liquid noted improvement of chest x-ray patient is noted to have last bowel movement approximately 2 days ago we will continue to monitor and follow-up GI recommendations . Noted electrolyte repletion at this time. PCO2 now in the 60s. 07/26: Patient continues to be noncompliant with BiPAP mask. ABGs obtained noting a PO2 of 45.6. The patient was emergently intubated this afternoon. Chest x-ray and repeat ABG pending at this time. Noted patient's last bowel movement last night. 07/27: Afebrile. Remains on ventilator. Will start tube feeding today. BM noted overnight. Replacing potassium phosphate, calcium chloride x1 now. And magnesium sulfate 07/28: Afebrile. Did not tolerate CPAP trial the same. Tolerating tube feeds today. Last bowel movement yesterday 09/26. Mild ileus on abdominal x-ray today. Subjective 07/29: Afebrile. Tolerated CPAP times 3 hours. He is intolerant to P. 2 bowel movements. Abdominal x-ray unchanged but no signs of obstructive or ileus. Objective Vital Signs / I&O: Vital Signs 07/28/18 14:30 07/28/18 15:00 07/28/18 15:28 Temperature Pulse Rate 101 H 103 H 102 H Respiratory Rate 8 L 32 H 8 L Blood Pressure 123/67 135/69 Pulse Oximetry 100 100 100 07/28/18 15:30 07/28/18 16:00 07/28/18 16:30 Temperature 98.7 F Pulse Rate 102 H 103 H 101 H Respiratory Rate 6 L 7 L 17 Blood Pressure 115/63 115/69 114/63 Pulse Oximetry 100 100 100 07/28/18 17:00 07/28/18 17:30 07/28/18 18:00 Temperature Pulse Rate 100 H 99 H 97 H Respiratory Rate 8 L 12 6 L Blood Pressure 123/66 130/65 132/64 Pulse Oximetry 100 100 100 07/28/18 18:30 07/28/18 19:00 07/28/18 19:30 Temperature Pulse Rate 93 H 84 87 Respiratory Rate 16 16 16 Blood Pressure 140/70 127/60 126/62 Pulse Oximetry 100 100 100 07/28/18 19:55 07/28/18 20:00 07/28/18 20:04 Temperature 98.5 F Pulse Rate 87 81 Respiratory Rate 16 16 16 Blood Pressure 127/65 Pulse Oximetry 100 100 07/28/18 20:30 07/28/18 21:00 07/28/18 21:30 Temperature Pulse Rate 90 86 85 Respiratory Rate 16 16 16 Blood Pressure 140/68 129/62 135/66 Pulse Oximetry 100 100 98 07/28/18 22:00 07/28/18 22:25 07/28/18 22:31 Temperature Pulse Rate 75 86 Respiratory Rate 16 16 16 Blood Pressure 163/71 H 124/61 Pulse Oximetry 100 100 100 07/28/18 23:00 07/28/18 23:01 07/28/18 23:31 Temperature Pulse Rate 96 H 94 H 88 Respiratory Rate 16 16 16 Blood Pressure 116/91 H 126/61 Pulse Oximetry 100 100 100 07/28/18 23:32 07/29/18 00:00 07/29/18 00:30 Temperature 98.3 F Pulse Rate 88 77 87 Respiratory Rate 16 16 16 Blood Pressure 130/65 130/63 Pulse Oximetry 100 100 07/29/18 01:00 07/29/18 01:25 07/29/18 01:30 Temperature Pulse Rate 95 H 90 Respiratory Rate 16 16 16 Blood Pressure 146/71 H 137/65 Pulse Oximetry 100 100 100 07/29/18 02:00 07/29/18 02:30 07/29/18 03:00 Temperature Pulse Rate 81 83 86 Respiratory Rate 16 16 16 Blood Pressure 123/60 140/65 115/67 Pulse Oximetry 100 100 100 07/29/18 03:30 07/29/18 04:00 07/29/18 04:09 Temperature 98.7 F Pulse Rate 91 H 88 93 H Respiratory Rate 16 16 16 Blood Pressure 116/61 118/66 Pulse Oximetry 100 100 07/29/18 04:30 07/29/18 04:40 07/29/18 05:00 Temperature Pulse Rate 88 96 H Respiratory Rate 17 16 20 Blood Pressure 129/70 129/59 L Pulse Oximetry 100 100 100 07/29/18 05:30 07/29/18 06:00 07/29/18 06:31 Temperature Pulse Rate 96 H 96 H 101 H Respiratory Rate 16 19 15 Blood Pressure 128/60 123/57 L 142/59 H Pulse Oximetry 100 100 100 07/29/18 07:00 07/29/18 07:28 07/29/18 12:25 Temperature Pulse Rate 96 H 100 H 98 H Respiratory Rate 16 16 13 Blood Pressure 143/63 H Pulse Oximetry 100 100 100 Intake & Output 07/28/18 07/29/18 07/29/18 18:59 06:59 18:59 Intake Total 1463 / 1463 779 / 779 100 / 100 Output Total 900 / 900 2550 / 2550 Balance 563 / 563 -1771 / -1771 100 / 100 Weight 75.9 kg Intake: IV 300 / 300 300 / 300 100 / 100 Diprivan 1000 mg/100 ml Inj 1, 300 / 300 300 / 300 100 / 100 000 mg In 100 ml @ 5 MCG/KG/MIN 2.397 mls/hr IV.CONT TITRATE PRN Rx#:[id number] Oral 0 / 0 Tube Feeding 398 / 398 359 / 359 Tube Irrigant 0 / 0 120 / 120 Water Bolus Amount 90 / 90 Anesthesia Amount 0 / 0 Other 675 / 675 Output: Stool 0 / 0 Urine/Stool Mix 0 / 0 Pleural Fluid 0 / 0 Urine Amount (Catheter) 900 / 900 2550 / 2550 Condom 900 / 900 Indwelling Urethral Catheter 2550 / 2550 Gastric Drainage 0 / 0 Right Nare Nasogastric Tube 0 / 0 Other: # Voids 2 # Incontinent Voids 1 Date of Last Bowel Movement 07/27/18 07/27/18 # Bowel Movements 1 # Incontinent Bowel Movements 1 Result Diagrams: 07/29/18 05:18 07/29/18 05:18 Other Results: Microbiology 07/28/18 06:00 Catheterized Urine Urine Culture - Preliminary Yeast - ID to follow 07/11/18 13:50 Blood - Peripheral Aerobic Blood Culture - Final No growth in 5 days 07/11/18 13:50 Blood - Peripheral Anaerobic Blood Culture - Final No growth in 5 days 07/11/18 02:48 Blood - Peripheral Aerobic Blood Culture - Final No growth in 5 days 07/11/18 02:48 Blood - Peripheral Anaerobic Blood Culture - Final No growth in 5 days 07/11/18 16:50 Clean Catch Urine Urine Culture - Final No growth in 48 hours 07/09/18 00:30 Stool Cryptosporidium Antigen - Final Negative - No Cryptosporicium antigen detected In selected cases of patients with a history of immunosuppression or foreign travel, a full ova and parasites examination may be desired. Contact the microbiology lab if full workup is indicated and subit another specimen for testing. 07/09/18 00:30 Stool Giardia Antigen (GERONIMO) - Final Negative - No Giardia Antigen detected In selected cases of patients with a history of immunosuppression or foreign travel, a full ova and parasites examination may be desired. Contact the microbiology lab if full workup is indicated and subit another specimen for testing. 07/02/18 05:41 Blood - Peripheral Aerobic Blood Culture - Final No growth in 5 days 07/02/18 05:41 Blood - Peripheral Anaerobic Blood Culture - Final No growth in 5 days 07/02/18 05:47 Blood - Peripheral Aerobic Blood Culture - Final No growth in 5 days 07/02/18 05:47 Blood - Peripheral Anaerobic Blood Culture - Final No growth in 5 days 07/02/18 22:00 Sputum - Endotracheal Gram Stain - Final 07/02/18 22:00 Sputum - Endotracheal Sputum Culture - Final Heavy growth normal respiratory justyn 06/26/18 10:10 Sputum - Endotracheal Gram Stain - Final 06/26/18 10:10 Sputum - Endotracheal Sputum Culture - Final Light growth normal respiratory justyn Imaging: ITS Impressions Abdomen Ultrasound 06/21/18 00:00 CONCLUSION: 1. No ascites is identified within the abdomen. Abdomen/Bladder Ultrasound 06/28/18 00:00 CONCLUSION: 1. Echogenic kidneys characteristic of medical renal disease. No hydronephrosis. Bladder decompressed by [facility] Chest CTA 07/02/18 00:00 CONCLUSION: 1. No pulmonary embolus. 2. Diffuse but basilar predominant bilateral airspace disease. 3. Endotracheal and endobronchial secretions are demonstrated. 4. Moderate emphysema. 5. Left ventricular hypertrophy. Abdomen/Pelvis CT 07/10/18 08:31 CONCLUSION: 1. There is gas and fluid distending the colon. The patient has a rectal tube in place however the rectal tube is kinked back on itself and occluded. The overall size of the colon has mildly increased when compared to previous exam. The small bowel is normal in caliber. 2. Interval development of a small left basilar effusion and atelectasis. Venous Doppler Study 07/15/18 00:00 CONCLUSION: 1. Limited suboptimal examination. 2. Nonocclusive thrombus in the jugular vein. Abdomen X-Ray 07/29/18 00:01 CONCLUSION: NG tip in duodenum. No acute findings. Chest X-Ray 07/29/18 06:00 CONCLUSION: Endotracheal tube and nasogastric tube unchanged. Stable to slight increase in basilar airspace disease since July 28. Objective Remarks: GENERAL: 73-year-old elderly -[place] male sitting in bed, currently orotracheally intubated SKIN: Warm and dry HEAD: Normocephalic. EYES: PERRL NECK: Supple, trachea midline. Airway widely patent, no obstructive noises CARDIOVASCULAR: Regular rate and regular rhythm. 12, S2. No S4. No murmur RESPIRATORY: Diminished breath sounds in bases noted .B/L equal air entry, patient noted to be dyspneic, with accessory muscle use GASTROINTESTINAL: Abdomen distended and firm, non-tender, no guarding, bowel sounds present MUSCULOSKELETAL: 1+ bilateral upper/ lower extremity edema, warm and well- perfused Neuro: Sedated on a propofol drip. Positive gag and cough. Positive corneal reflex. Withdraws to pain bilateral upper and lower extremities. Opens eyes to voice. Assessment and Plan - Assessment and Plan Plan: NEURO/Psych: Altered mental status due to CO2 retention -Monitor neuro status, avoid sedatives -F/U acetylcholine receptor and autoantibodies RESP: Hypercapnic respiratory failure Acute COPD exacerbation -Extubated 06/29. Reintubated 07/02 extubated again 07/07, reintubated 07/26 -Patient currently on PRVC -Albuterol/ipratropium aerosols every 4 hours scheduled and albuterol aerosols every 2 hours as needed -Wean methylprednisolone succinate from 40 mg to 20 mg daily -Inhaled budesonide -07/29 chest x-ray noted improvement resolution of bibasilar opacities CV: Essential hypertension - Monitor HR and BP keep MAP>65mmHg -C currently on IV metoprolol 2.5 mg IV every 6 hours. GI: Colonic ileus -KUB 07/13: Stable nonobstructive colonic distention. Given Neostigmine 07/11. -s/p repeat decompressive colonoscopy 07/10 and 07/15 -Continue pantoprazole -On docusate sodium/senna 1 tablet twice daily, lactulose 30 cc 4 times daily, polyethylene glycol 17 g daily. Fleets enema daily. Naltrexone 12 mg subcu daily -Insert NG tube. Started tube feeding today -Abdominal x-ray revealed nonspecific bowel gas pattern. FEN//renal: Hypernatremia Hypophosphatemia Hypomagnesia -Monitor renal function, I/O's, avoid nephrotoxins -Renal function better today currently 1.18. -Renal- Dr. Figueroa has followed 30 mmol K-Phos, 2 g mag sulfate. Recheck in a.m. ID: -Off abx monitor for signs of infections (Fever, WBC) WBC stable -BC and urine cx from 07/11- NG in 5 days -07/02 BC: NGTS, sputum cx 07/02:normal resp justyn -ID is following- Dr. Brown PRN HEME: Normocytic anemia Thrombocytopenia -Monitor CBC, coags, Hep PLT is positive. ANNMARIE negative. Hematology is following. Off argatroban drip -s/p 2U PRBCs on 07/16, Hgb 8.8, used for hemoglobin less than 7 -Stable thrombocytopenia-avoid medications that precipitate thrombocytopenia -Strict bedrest for now ENDO: -Sliding scale insulin medium scale aspart insulin every 4 hours. Add insulin detemir 8 units twice daily PROPH: -Bilateral lower extremity SCDs. PPI -Doppler US LE negative DVT 07/02 LINES: -Utilize peripheral IVs Level 2
[2018-07-29] MEDS: Insulin Detemir Inj 1,000 UNIT/10 ML Vial SQ SCH (21:55)
[2018-07-30] MEDS: Insulin NovoLOG Aspart Correctional Sugar Inj SQ SCH ×6 (00:51→21:37)
[2018-07-30] MEDS: Artificial Tears Opth Drops 15 ML Bottle EACH EYE SCH ×3 (00:52→16:01)
[2018-07-30] MEDS: Pantoprazole Inj 40 MG Vial IV.PUSH SCH ×2 (01:01→13:00)
[2018-07-30] MEDS: Propofol 1000 mg/100 ml Inj 1,000 MG/100 ML BOTTLE IV.CONT PRN ×7 (02:40→23:38)
[2018-07-30] MEDS: Metoprolol Inj 5 MG/5 ML Vial IV.PUSH SCH ×4 (05:12→21:37)
[2018-07-30 05:27] LABS: Baso % (Auto) 0.2 % (0.0-2.0); Eos % (Auto) 0.2 % (0.0-4.0); Hematocrit 24.6 % (39.0-51.0); Hemoglobin 8.3 gm/dL (13.0-17.0); Lymph # (Auto) 0.7 th/mm3 (1.0-4.8); Mean Corpuscular HGB Conc 33.7 % (32.0-36.0); Mean Corpuscular Hemoglobin 31.5 pg (27.0-34.0); Mean Corpuscular Volume 93.4 fL (80.0-100.0); Mean Platelet Volume 9.9 fL (7.0-11.0); Mono # (Auto) 0.3 th/mm3 (0.0-0.9); Mono % (Auto) 4.8 % (0.0-8.0); Neut # (Auto) 4.5 th/mm3 (1.8-7.7); Neut % (Auto) 81.8 % (16.0-70.0); Platelet Count 62 th/mm3 (150-450); Red Blood Count 2.64 mil/mm3 (4.50-5.90); White Blood Count 5.4 th/mm3 (4.0-11.0)
[2018-07-30 05:54] LABS: Anion Gap 5 meq/L (5-15); Blood Urea Nitrogen 14 mg/dL (7-18); Calcium 6.6 mg/dL (8.5-10.1); Carbon Dioxide 38.5 meq/L (21.0-32.0); Chloride 104 meq/L (98-107); Glomerular Filtration Rate Greater Than 89 mL/min (>89); Glucose,Random 215 mg/dL (74-106); Magnesium 1.4 mg/dL (1.5-2.5); Phosphorus 2.7 mg/dL (2.5-4.9); Potassium 3.2 meq/L (3.5-5.1); Sodium 147 meq/L (136-145)
--- NOTE | 2018-07-30 05:57 | XR ---
EXAM DATE: 07/30/2018 5:15 AM EST AGE/SEX: 73 years / Male INDICATIONS: Short of breath. CLINICAL DATA: This is the patient's subsequent encounter. Patient reports that signs and symptoms h ave been present for 1 week and indicates a pain score of 0/10. MEDICAL/SURGICAL HISTORY: Chronic obstructive pulmonary disease. Diabetes. Hypertension. Non- responsive. COMPARISON: [facility], CHEST 1V SINGLE AP, 07/29/2018. . FINDINGS: Endotracheal tube in good position. NG enters stomach. Mild basilar and dependent opacity in the lung s, probably atelectasis. No new infiltrate or effusion. Mild scoliosis. CONCLUSION: Stable exam compared with July 22, 2017 with support apparatus in good position. Electronically signed by: Angus Millan MD 07/30/2018 5:55 AM EST
[2018-07-30 06:01] LABS: Albumin 2.7 g/dL (3.4-5.0); Calcium-Albumin Corrected 7.6 mg/dL (8.5-10.1)
[2018-07-30 08:27] LABS: Lymphocytes 7 % (9-44); Metamyelocytes 2 % (0-1); Monocytes 5 % (0-8); Myelocytes 4 % (0-0); Platelet Morphology Normal (Normal); Tallied Nucleated RBC 4 (0-0)
[2018-07-30] MEDS: Docusate Sodium Liq 100 MG/10 ML UDC NG/OG SCH ×2 (09:19→21:37)
[2018-07-30] MEDS: Bisacodyl 10 MG Supp RECTAL SCH (09:20)
[2018-07-30] MEDS: Polyethylene Glycol 3350 17 GM Packet PO SCH (09:20)
[2018-07-30] MEDS: Multivitamin/Minerals Therapeutic Tablet PO SCH (09:21)
[2018-07-30] MEDS: Ascorbic Acid 500 MG Tablet PO SCH (09:21)
[2018-07-30] MEDS: Sennosides Liq 8.8 MG/5 ML UDC NG/OG SCH ×2 (09:21→21:38)
[2018-07-30] MEDS: MethylPREDNISolone Sod Succinate Inj 40 MG/ML Vial IV.PUSH SCH (09:21)
[2018-07-30] MEDS: Calcium/Vitamin D 250/125 MG Tablet PO SCH (09:21)
[2018-07-30] MEDS: Methylnaltrexone Inj 12 MG/0.6 ML Vial SQ SCH (09:21)
[2018-07-30] MEDS: Insulin Detemir Inj 1,000 UNIT/10 ML Vial SQ SCH ×2 (09:31→21:37)
[2018-07-30] MEDS ORDERED: Potassium Chloride 25 MEQ Effervescent Tablet PO ONE (15:08)
--- NOTE | 2018-07-30 15:16 | P.PNCC ---
Subjective Subjective Remarks/Hospital Course: Mr. Curry is a 73-year-old -[place] male with past medical history significant for COPD on 3 L nasal cannula, hypertension, hyperlipidemia and anxiety who was admitted to the hospitalist service on 06/19/2018 for worsening shortness of breath due to COPD exacerbation. He was treated with IV Solu- Medrol, IV antibiotics, breathing treatments gradually improved. Patient was also complaining about dyspepsia and underwent EGD by GI yesterday. Per report the EGD was normal but patient developed worsening shortness of breath and COPD exacerbation postprocedure, possibly from aspiration after sedated. Two ABGs done yesterday showed hypercapnic respiratory failure second 1 was on BiPAP and this was improved with pH 7.3 with PCO2 of 74. Patient remained on BiPAP overnight however was noticed to be lethargic today a.m., stat ABG showed pH of 7.21 PCO2 110 PO2 88 while on BiPAP. Patient was lethargic intermittently dozing off due to CO2 narcosis. Critical care medicine was consulted and I immediately evaluated the patient. Patient had obviously failed BiPAP I proceeded with endotracheal intubation placed on mechanical ventilation. Postintubation I have ordered single dose of Solu-Medrol 125 mg x1 continue Solu -Medrol 60 every 8, discontinue ceftriaxone and start cefepime 2 g IV every 8 hours continue azithromycin. Add budesonide inhaled, placed on scheduled DuoNeb every 4 hours and as needed. 06/27: Patient was intubated yesterday for severe hypercapnic respiratory failure. Currently remains intubated sedated and intubated remains diminished bilaterally. Heavily sedated for ventilator synchrony 06/28: Urine output significantly improved with fluid resuscitation. Creat down trending now 2 from 2.3, UO >3.3 L. Remains intubated sedated. Will initiate daily sedation vacation and CPAP trials 06/29: More awake today tolerating CPAP trials intermittently follows commands but gets agitated/frustrated fast. Urine output remains excellent creatinine 1.4. However sodium increasing 158 today. Night therapy assistant had changed fluid to D5 W for free water replacement. Due to hypoglycemia will change to quarter normal saline at 150 mL/h repeat CMP in the afternoon 06/30 Patient was extubated yesterday. Awake 07/01 Patient is lying in bed in NAD. T: 100.5 07/02: Intubated early this morning due to acute hypoxic respiratory failure. Central line placed due to hypotension. Plan for GI perform endoscopic decompression of this large bowel today. Arousable and does follow commands. Placed on argatroban 07/03: Currently, intubated with borderline blood pressure. Central line placed yesterday due to hypotension. Did not move bowels despite 1 L of fluid from colonoscopy yesterday and multiple laxatives provided. See orders for additional laxatives today. Might need neostigmine. 07/04 Patient remains intubated and sedated with Diprivan. Given Neostigmine last night. KUB this morning showed colonic ileus. Afebrile. On Argatroban. 07/05 No events overnight, sedated with Diprivan and intubated. Off Argatroban. 07/06 Patient remains intubated and sedated. Afebrile. 07/07 Patient remains intubated, s/p decompressive colonoscopy yesterday. Awake. 07/08 Patient s/p extubation yesterday. Awake and alert. 07/09 Patient is awake, alert lying in bed in NAD. Afebrile. 07/10 Patient is awake and alert, Afebrile. 07/11 Patient s/p decompressive colonoscopy yesterday. Afebrile. On Lasix drip.( UOP: 2800ml overnight). Cr: 3.0 from 2.25. 07/12 Patient is awake, alert given Neostigmine overnight. NGT to LIWS, off Lasix drip. 07/13: Resting comfortably in bed in no acute distress. 3 bowel movements documented. Remains n.p.o. Bladder pressures around 6. Potassium being replaced. Remains anemic around 7. 07/14 Patient is lying in bed in NAD. Afebrile. 07/15 No events overnight. Afebrile. 07/16: Resting in bed mild distress. Abdomen remains distended. Hemoglobin has dropped to 6.2 2 units of PRBC ordered. Patient underwent decompressive colonoscopy by Dr. Berrios for colonic ileus 07/17: No significant overnight events, patient states that he wants to get out of bed to a chair as he is having rectal discomfort. 07/18: Patient reportedly had a BM after digital rectal exam yesterday, states that he's been passing flatus "every now and then" overnight. No plans for OR or sigmoidoscopy as per colorectal service, OK to transfer out of [facility]. 07/19: Patient transferred to [facility] yesterday, complained of shortness of breath again today. An ABG showed a pCO2 of 79 so he was placed on bipap and transferred to [facility]. Most recent ABG shows pCO2 of 66, KUB still has abdominal distension but appears to be improved when compared to KUB from 07/15. Patient has reportedly been having bowel movements and passing flatus overnight. 07/20: No dramatic improvement in abdominal distention however abdomen soft. The patient was able to breathe comfortably overnight and remained alert. This morning the BiPAP mask was removed for half an hour and the patient did well without evidence of CO2 retention or somnolence. Reconsult note 07/23: The patient was a halicat from the [facility] floor. Patient was noted to be somnolent, had difficulty breathing. Stat ABG was performed revealing a PCO2 of 113. The patient was placed on BiPAP and transferred to [facility]. Currently remains on CPAP respiratory rate is 25 , 16/5 with an FiO2 35%. 07/24: Overnight the patient was placed on BiPAP 10/5 refusing BiPAP pulling out IVs. The patient became tachycardic refusing p.o. medications. The patient was placed on a Cardizem infusion currently at 5 mg an hour. Patient is more compliant at this time the patient's BiPAP settings were increased to 15 /5 35% stat ABGs were ordered the patient was noted to have a PCO2 of 89, continues with hypercapnic respiratory failure in the setting of severe COPD. Extensive discussion with family at bedside the patient's sister and daughter provided medical status update on recent transfer to ICU and current standing. Inform family that patient is at risk for for emergent intubation. Repeat ABG pending this evening. 07/25: Patient noted to have episodes of agitation continually removing BiPAP. I discussed with patient the criticality of his illness and possible intubation patient now agrees to wear BiPAP with exception of meals. Patient's diet was advanced to clear liquid noted improvement of chest x-ray patient is noted to have last bowel movement approximately 2 days ago we will continue to monitor and follow-up GI recommendations . Noted electrolyte repletion at this time. PCO2 now in the 60s. 07/26: Patient continues to be noncompliant with BiPAP mask. ABGs obtained noting a PO2 of 45.6. The patient was emergently intubated this afternoon. Chest x-ray and repeat ABG pending at this time. Noted patient's last bowel movement last night. 07/27: Afebrile. Remains on ventilator. Will start tube feeding today. BM noted overnight. Replacing potassium phosphate, calcium chloride x1 now. And magnesium sulfate 07/28: Afebrile. Did not tolerate CPAP trial the same. Tolerating tube feeds today. Last bowel movement yesterday 09/26. Mild ileus on abdominal x-ray today. 07/29: Afebrile. Tolerated CPAP times 3 hours. He is intolerant to P. 2 bowel movements. Abdominal x-ray unchanged but no signs of obstructive or ileus. Subjective 07/30: Afebrile. Currently on CPAP trials. Positive BM. No change in neurological status. Increasing metoprolol to 5 mg IV every 6 hours. Objective Vital Signs / I&O: Vital Signs 07/29/18 15:49 07/29/18 16:00 07/29/18 16:30 Temperature 99.4 F Pulse Rate 94 H 92 H 94 H Respiratory Rate 16 16 16 Blood Pressure 117/59 L 106/59 L Pulse Oximetry 100 100 100 07/29/18 17:00 07/29/18 17:30 07/29/18 18:00 Temperature 98.3 F Pulse Rate 94 H 97 H 94 H Respiratory Rate 16 16 16 Blood Pressure 108/60 109/69 103/55 L Pulse Oximetry 100 100 100 07/29/18 18:32 07/29/18 19:00 07/29/18 19:01 Temperature Pulse Rate 78 91 H 88 Respiratory Rate 16 17 14 Blood Pressure 135/60 129/62 Pulse Oximetry 100 96 100 07/29/18 19:31 07/29/18 19:40 07/29/18 19:59 Temperature Pulse Rate 88 99 H Respiratory Rate 16 16 16 Blood Pressure 125/59 L Pulse Oximetry 100 100 07/29/18 20:00 07/29/18 20:01 07/29/18 20:30 Temperature Pulse Rate 94 H 89 101 H Respiratory Rate 15 16 21 Blood Pressure 118/91 H 129/56 L Pulse Oximetry 100 85 L 100 07/29/18 21:00 07/29/18 21:30 07/29/18 22:00 Temperature Pulse Rate 102 H 106 H 105 H Respiratory Rate 16 16 19 Blood Pressure 112/64 113/61 121/64 Pulse Oximetry 100 100 100 07/29/18 22:25 07/29/18 22:31 07/29/18 23:00 Temperature Pulse Rate 101 H 100 H Respiratory Rate 16 16 16 Blood Pressure 145/64 H 115/63 Pulse Oximetry 100 100 100 07/29/18 23:30 07/29/18 23:50 07/30/18 00:00 Temperature 98.7 F Pulse Rate 104 H 102 H 103 H Respiratory Rate 16 16 16 Blood Pressure 119/68 106/58 L Pulse Oximetry 100 100 07/30/18 00:30 07/30/18 01:00 07/30/18 01:30 Temperature Pulse Rate 106 H 105 H 103 H Respiratory Rate 18 16 16 Blood Pressure 106/59 L 105/59 L 115/57 L Pulse Oximetry 99 100 100 07/30/18 01:35 07/30/18 02:00 07/30/18 02:30 Temperature Pulse Rate 105 H 103 H Respiratory Rate 16 16 16 Blood Pressure 116/62 111/60 Pulse Oximetry 100 100 100 07/30/18 03:00 07/30/18 03:30 07/30/18 03:54 Temperature Pulse Rate 103 H 104 H 103 H Respiratory Rate 13 15 16 Blood Pressure 105/61 101/61 Pulse Oximetry 100 100 07/30/18 04:00 07/30/18 04:30 07/30/18 04:50 Temperature 98.7 F Pulse Rate 100 H 106 H Respiratory Rate 16 16 16 Blood Pressure 103/59 L 106/59 L Pulse Oximetry 100 100 100 07/30/18 05:23 07/30/18 08:00 07/30/18 08:05 Temperature 98.1 F Pulse Rate 94 H 109 H 88 Respiratory Rate 17 16 Blood Pressure 107/73 Pulse Oximetry 100 07/30/18 08:06 07/30/18 10:00 07/30/18 11:09 Temperature Pulse Rate 108 H 101 H Respiratory Rate 17 16 Blood Pressure Pulse Oximetry 100 100 07/30/18 12:00 07/30/18 13:58 07/30/18 15:12 Temperature 98.3 F Pulse Rate 119 H 119 H 100 H Respiratory Rate 34 H 16 Blood Pressure 119/57 L Pulse Oximetry 98 98 Intake & Output 07/29/18 07/30/18 07/30/18 18:59 06:59 18:59 Intake Total 715 / 715 1113 / 1113 100 / 100 Output Total 1500 / 1500 800 / 800 Balance -785 / -785 313 / 313 100 / 100 Weight 76 kg Intake: IV 400 / 400 560 / 560 100 / 100 Diprivan 1000 mg/100 ml Inj 1, 300 / 300 300 / 300 100 / 100 000 mg In 100 ml @ 5 MCG/KG/MIN 2.397 mls/hr IV.CONT TITRATE PRN Rx#:[id number] Magnesium Sulfate Inj 2 GM In 100 / 100 NS Inj 96 ML @ 50 mls/hr IV.SIG ONCE ONE Rx#:[id number] Potassium Phosphate Inj 30 MMOL 260 / 260 In NS Inj 250 ML @ 43.333 mls/ hr IV.SIG ONCE ONE Rx#:[id number] Tube Feeding 225 / 225 493 / 493 Tube Irrigant 90 / 90 60 / 60 Output: Urine Amount (Catheter) 1500 / 1500 800 / 800 Indwelling Urethral Catheter 1500 / 1500 800 / 800 Other: Date of Last Bowel Movement 07/27/18 07/28/18 07/28/18 # Bowel Movements 0 Result Diagrams: 07/30/18 04:53 07/30/18 04:53 Other Results: Microbiology 07/28/18 06:00 Catheterized Urine Urine Culture - Final Koki albicans 07/11/18 13:50 Blood - Peripheral Aerobic Blood Culture - Final No growth in 5 days 07/11/18 13:50 Blood - Peripheral Anaerobic Blood Culture - Final No growth in 5 days 07/11/18 02:48 Blood - Peripheral Aerobic Blood Culture - Final No growth in 5 days 07/11/18 02:48 Blood - Peripheral Anaerobic Blood Culture - Final No growth in 5 days 07/11/18 16:50 Clean Catch Urine Urine Culture - Final No growth in 48 hours 07/09/18 00:30 Stool Cryptosporidium Antigen - Final Negative - No Cryptosporicium antigen detected In selected cases of patients with a history of immunosuppression or foreign travel, a full ova and parasites examination may be desired. Contact the microbiology lab if full workup is indicated and subit another specimen for testing. 07/09/18 00:30 Stool Giardia Antigen (GERONIMO) - Final Negative - No Giardia Antigen detected In selected cases of patients with a history of immunosuppression or foreign travel, a full ova and parasites examination may be desired. Contact the microbiology lab if full workup is indicated and subit another specimen for testing. 07/02/18 05:41 Blood - Peripheral Aerobic Blood Culture - Final No growth in 5 days 07/02/18 05:41 Blood - Peripheral Anaerobic Blood Culture - Final No growth in 5 days 07/02/18 05:47 Blood - Peripheral Aerobic Blood Culture - Final No growth in 5 days 07/02/18 05:47 Blood - Peripheral Anaerobic Blood Culture - Final No growth in 5 days 07/02/18 22:00 Sputum - Endotracheal Gram Stain - Final 07/02/18 22:00 Sputum - Endotracheal Sputum Culture - Final Heavy growth normal respiratory justyn 06/26/18 10:10 Sputum - Endotracheal Gram Stain - Final 06/26/18 10:10 Sputum - Endotracheal Sputum Culture - Final Light growth normal respiratory justyn Imaging: Chest X-Ray 06/19/18 20:38 CONCLUSION: No evidence of acute cardiopulmonary disease. Abdomen Ultrasound 06/21/18 00:00 CONCLUSION: 1. No ascites is identified within the abdomen. Abdomen X-Ray 06/21/18 00:00 CONCLUSION: No acute findings. Mild constipation. Chest X-Ray 06/23/18 00:00 CONCLUSION: 1. No acute abnormality or significant interval change. Abdomen/Pelvis CT 06/24/18 00:00 CONCLUSION: 1. Benign appearing right adrenal mass. 2. No acute CT findings in the abdomen or pelvis. Chest X-Ray 06/25/18 00:00 CONCLUSION: Suspected mild atelectasis or consolidation at the medial right base. Chest X-Ray 06/26/18 00:00 CONCLUSION: 1. Endotracheal tube is appropriately positioned above the christy. 2. Nasogastric tube traverses the GE junction and is curled in the gastric lumen. 3. Lungs are clear. Abdomen X-Ray 06/26/18 09:21 CONCLUSION: 1. Nonobstructive bowel gas pattern without pneumoperitoneum. 2. Nasogastric tube is curled in the expected location of the gastric body. I believe the portions of the tube identified over the heart shadow is probably projectional as there is no evidence of a significant hiatal hernia on the most recent CT of the abdomen. Chest X-Ray 06/26/18 15:37 CONCLUSION: 1. Lungs remain clear. 2. Interval placement of a right IJ central venous catheter with the tip projecting over the central venous system. No pneumothorax. 3. Endotracheal and nasogastric tubes remain appropriately positioned. Abdomen/Bladder Ultrasound 06/28/18 00:00 CONCLUSION: 1. Echogenic kidneys characteristic of medical renal disease. No hydronephrosis. Bladder decompressed by Moreno Chest X-Ray 06/28/18 06:00 CONCLUSION: The lungs are clear. Lines and tubes stable. Chest X-Ray 06/29/18 06:00 CONCLUSION: The lungs are clear. Lines and tubes stable. Venous Doppler Study 07/01/18 00:00 CONCLUSION: 1. The study is negative for bilateral lower extremity deep venous thrombosis. Chest X-Ray 07/01/18 20:41 CONCLUSION: Negative examination. Chest CTA 07/02/18 00:00 CONCLUSION: 1. No pulmonary embolus. 2. Diffuse but basilar predominant bilateral airspace disease. 3. Endotracheal and endobronchial secretions are demonstrated. 4. Moderate emphysema. 5. Left ventricular hypertrophy. Venous Doppler Study 07/02/18 00:00 CONCLUSION: 1. Limited, no evidence for thrombosis. Chest X-Ray 07/02/18 04:04 CONCLUSION: 1. Interim intubation and nasogastric tube placement as above. 2. Mild bibasilar atelectasis has developed. Abdomen/Pelvis CT 07/02/18 04:20 CONCLUSION: Colonic distention most likely representing moderate adynamic ileus. However, distal sigmoid colon is decompressed and a sigmoid stricture is conceivable but considered less likely. Apparent mild proctitis. Clinical surveillance and follow-up CT recommended. Chest X-Ray 07/02/18 14:46 CONCLUSION: Left IJ line in good position. There is no pneumothorax. Abdomen X-Ray 07/04/18 00:01 CONCLUSION: Findings of colonic ileus Chest X-Ray 07/04/18 06:00 CONCLUSION: Cardiomegaly and findings of vascular congestion without overt failure. There has been no significant change when compared to the prior exam. Abdomen X-Ray 07/05/18 07:08 CONCLUSION: No significant interval change with persistent diffuse air-filled distention of the colon suggesting ileus. Chest X-Ray 07/07/18 07:12 CONCLUSION: Minimal bibasilar densities likely atelectasis. Abdomen X-Ray 07/07/18 07:13 CONCLUSION: Gaseous distention of multiple bowel loops has improved since previous study. Abdomen X-Ray 07/09/18 07:14 CONCLUSION: 1. Apparent interval removal of NGT. 2. Improving bowel gas pattern consistent with improving adynamic ileus. Abdomen/Pelvis CT 07/10/18 08:31 CONCLUSION: 1. There is gas and fluid distending the colon. The patient has a rectal tube in place however the rectal tube is kinked back on itself and occluded. The overall size of the colon has mildly increased when compared to previous exam. The small bowel is normal in caliber. 2. Interval development of a small left basilar effusion and atelectasis. Chest X-Ray 07/10/18 08:42 CONCLUSION: Mild patchy bilateral lung base opacity likely representing atelectasis unchanged. Small left pleural effusion now seen. Abdomen X-Ray 07/11/18 00:00 CONCLUSION: 1. Questionable NGT at the GE junction, as above. 2. Moderately improved colonic distention. Abdomen X-Ray 07/12/18 00:00 CONCLUSION: Probable generalized ileus. No abrupt caliber changes are seen. No free air. Nasogastric tube tip is in the upper stomach. No gastric distention seen. Abdomen X-Ray 07/14/18 06:00 CONCLUSION: Distended air-filled colon. Ileus is the most likely etiology for this pattern. Abdomen X-Ray 07/15/18 00:00 CONCLUSION: Persistent air-filled loops of small and large bowel suggesting probably ileus. Clinical correlation is recommended. Venous Doppler Study 07/15/18 00:00 CONCLUSION: 1. Limited suboptimal examination. 2. Nonocclusive thrombus in the jugular vein. Chest X-Ray 07/16/18 10:00 CONCLUSION: Mild bibasilar consolidations, presumably atelectasis is unchanged. Abdomen X-Ray 07/19/18 14:09 CONCLUSION: Negative examination. Chest X-Ray 07/19/18 14:10 CONCLUSION: 1. No acute cardiopulmonary disease. 2. Mild degenerative changes and scoliosis of the thoracic spine. Chest X-Ray 07/23/18 00:00 CONCLUSION: Negative examination. Chest X-Ray 07/24/18 00:00 CONCLUSION: Mild bibasilar consolidation. Chest X-Ray 07/25/18 04:00 CONCLUSION: Previous basilar opacity has resolved. No new infiltrate or effusion. Abdomen X-Ray 07/26/18 00:00 CONCLUSION: Orogastric tube tip is in the distal stomach or proximal duodenum. Chest X-Ray 07/26/18 17:00 CONCLUSION: 1. ETT in good position. 2. No acute abnormality. Chest X-Ray 07/27/18 04:00 CONCLUSION: Endotracheal tube and nasogastric tube in good position. Minimal dependent atelectasis in the lungs. Abdomen X-Ray 07/28/18 00:01 CONCLUSION: Mild ileus. No evidence for obstruction or free air. Chest X-Ray 07/28/18 06:00 CONCLUSION: Mild basilar atelectasis. No effusion or pneumothorax. Abdomen X-Ray 07/29/18 00:01 CONCLUSION: NG tip in duodenum. No acute findings. Chest X-Ray 07/29/18 06:00 CONCLUSION: Endotracheal tube and nasogastric tube unchanged. Stable to slight increase in basilar airspace disease since July 28. Chest X-Ray 07/30/18 06:00 CONCLUSION: Stable exam compared with July 22, 2017 with support apparatus in good position. Objective Remarks: GENERAL: 73-year-old elderly -[place] male sitting in bed, currently orotracheally intubated SKIN: Warm and dry HEAD: Normocephalic. EYES: PERRL NECK: Supple, trachea midline. Airway widely patent, no obstructive noises CARDIOVASCULAR: Tachycardic, normal rhythm. S1, S2. No S4. No murmur RESPIRATORY: Diminished breath sounds in bases noted .B/L equal air entry, patient noted to be dyspneic, with accessory muscle use GASTROINTESTINAL: Abdomen less distended, non-tender, no guarding, bowel sounds present MUSCULOSKELETAL: Trace to bilateral upper/ lower extremity edema, warm and well- perfused Neuro: Sedated on a propofol drip. Positive gag and cough. Positive corneal reflex. Follows commands by moving upper and lower extremities withdraws to pain bilateral upper and lower extremities. Opens eyes to voice. Assessment and Plan - Assessment and Plan Plan: NEURO/Psych: Altered mental status due to CO2 retention -Monitor neuro status, avoid sedatives -F/U acetylcholine receptor and autoantibodies RESP: Hypercapnic respiratory failure Acute COPD exacerbation -Extubated 06/29. Reintubated 07/02 extubated again 07/07, reintubated 07/26 -Patient currently on PRVC -Albuterol/ipratropium aerosols every 4 hours scheduled and albuterol aerosols every 2 hours as needed -Wean methylprednisolone succinate from 40 mg to 20 mg daily -Inhaled budesonide -07/29 chest x-ray noted improvement resolution of bibasilar opacities CV: Essential hypertension - Monitor HR and BP keep MAP>65mmHg -C currently on IV metoprolol 5 mg IV every 6 hours. GI: Colonic ileus -KUB 07/13: Stable nonobstructive colonic distention. Given Neostigmine 07/11. -s/p repeat decompressive colonoscopy 07/10 and 07/15 -Continue pantoprazole -On docusate sodium/senna 1 tablet twice daily, lactulose 30 cc 4 times daily, polyethylene glycol 17 g daily. Fleets enema daily. Naltrexone 12 mg subcu daily -Insert NG tube. Continue tube feeding -Abdominal x-ray revealed nonspecific bowel gas pattern. FEN//renal: Hypernatremia Hypophosphatemia Hypomagnesia -Monitor renal function, I/O's, avoid nephrotoxins -Renal function stable -Renal- Dr. Figueroa has followed ID: -Off abx monitor for signs of infections (Fever, WBC) WBC stable -BC and urine cx from 07/11- NG in 5 days -07/02 BC: NGTS, sputum cx 07/02:normal resp justyn -ID is following- Dr. Brown PRN HEME: Normocytic anemia Thrombocytopenia -Monitor CBC, coags, Hep PLT is positive. ANNMARIE negative. Hematology is following. Off argatroban drip -s/p 2U PRBCs on 07/16, Hgb 8.8, used for hemoglobin less than 7 -Stable thrombocytopenia-avoid medications that precipitate thrombocytopenia -Strict bedrest for now ENDO: -Sliding scale insulin medium scale aspart insulin every 4 hours. Add insulin detemir 10 units twice daily PROPH: -Bilateral lower extremity SCDs. PPI -Doppler US LE negative DVT 07/02 LINES: -Utilize peripheral IVs Level 2 follow-up
--- NOTE | 2018-07-30 15:40 | XR ---
EXAM DATE: 07/30/2018 3:38 PM EST AGE/SEX: 73 years / Male INDICATIONS: Evaluate for ileus. CLINICAL DATA: This is the patient's subsequent encounter. Patient reports that signs and symptoms h ave been present for 1 month and indicates a pain score of Nonresponsive. MEDICAL/SURGICAL HISTORY: . Chronic obstructive pulmonary disease. Diabetes. Hypertension. Non -responsive. [place] [facility] [place]. . FINDINGS: There is a nasogastric tube present the tip is in the stomach. There is a benign-appearing bowel gas pattern. No free air is seen. No organomegaly is noted. No abno rmal calcifications are seen. The visualized osseous structures are grossly intact. CONCLUSION: Benign-appearing KUB. Electronically signed by: Onesimo Angulo MD 07/30/2018 3:39 PM EST
--- NOTE | 2018-07-30 16:14 | P.DIET ---
Nutritional Evaluation Type of nutrition evaluation: follow-up Nutrition consult regarding: Tube Feeding Subjective Subjective Comments: Pt on clear liquid diet briefly yesterday 07/24 and ate 100% of all meals. Objective - Diagnosis SOB, COPD Exacerbation - Objective % IBW: 126 Body Weight Used for Calculations: IBW (67.3kg(148 lb)) Energy Needs - Lower Range (kCal/kg): 23 Energy Needs - Upper Range (kCal/kg): 28 Lower Limit kCal/kg (kCals): 1,548 Upper Limit kCal/kg (kCals): 1,884 Lower Limit Protein Factor (Grams per Kg): 1.2 Upper Limit Protein Factor (Grams per Kg): 1.4 Lower Protein Needs (Protein): 81 Upper Protein Needs (Protein): 94 Dietitian Reviewed in Medical Record: Curent medications, Intake & Output, Labs , Medical history Diet Order: no order Objective Comments: PMH includes: COPD, HTN, hyperlipidemia, anxiety Labs include: Na 147, K+ 3.2, POC glucose 374 205 252, Ca+ 6.6, Mg 1.4 LBM 07/28/18, +UOP 2300mL Assessment Assessment: Pt continues at nutritional risk r/t clinical status, previously requiring TF' ing for nutritional support. Pt currently on CPAP trials, w/ NGT in place for TF 'ing. Pt TF'ing Vital 1.5 @ 50mL/hr per MD. RD to recommend Glucerna 1.5 @ 45mL/ hr to best meet pts nutritional needs. Continue to monitor TF tolerance. Dietitian also to monitor diet advancement. Labs reviewed, RD following. Brought forward: Pt extubated 06/29, re-intubated 07/02, extubated 07/17; 07/23 pt transferred from med-surg to [facility] w/difficulty breathing. Recommendations: 1. RD to recommend Glucerna 1.5 @ 45mL/hr to best meet pts nutritional needs. 2. Continue to monitor TF tolerance 3. Dietitian also to monitor diet advancement 4. Dietitian following Dietitian to Monitor: Lab values, Electrolytes, Glucose level, Intake & Output, Weight change, Diet advancement, Medical course
[2018-07-30] MEDS ORDERED: Magnesium Sulfate Inj 4 GM in Dextrose 5% in Water Inj 100 ML IV.SIG ONE ×2 (17:00)
--- NOTE | 2018-07-30 17:39 | P.PNPL ---
Subjective Interval history: 73 YOAA male with COPD, 02 dependent Follows at [facility] Admitted with AMS, COPD exac Reintubated 07/26 due to worsening resp status Did't tolerate CPAP On ACV Sedated with Precedex. Physical Exam Vital signs: Vital Signs 07/29/18 18:00 07/29/18 18:32 07/29/18 19:00 Temperature 98.3 F Pulse Rate 94 H 78 91 H Respiratory Rate 16 16 17 Blood Pressure 103/55 L 135/60 Pulse Oximetry 100 100 96 07/29/18 19:01 07/29/18 19:31 07/29/18 19:40 Temperature Pulse Rate 88 88 Respiratory Rate 14 16 16 Blood Pressure 129/62 125/59 L Pulse Oximetry 100 100 100 07/29/18 19:59 07/29/18 20:00 07/29/18 20:01 Temperature Pulse Rate 99 H 94 H 89 Respiratory Rate 16 15 16 Blood Pressure 118/91 H Pulse Oximetry 100 85 L 07/29/18 20:30 07/29/18 21:00 07/29/18 21:30 Temperature Pulse Rate 101 H 102 H 106 H Respiratory Rate 21 16 16 Blood Pressure 129/56 L 112/64 113/61 Pulse Oximetry 100 100 100 07/29/18 22:00 07/29/18 22:25 07/29/18 22:31 Temperature Pulse Rate 105 H 101 H Respiratory Rate 19 16 16 Blood Pressure 121/64 145/64 H Pulse Oximetry 100 100 100 07/29/18 23:00 07/29/18 23:30 07/29/18 23:50 Temperature Pulse Rate 100 H 104 H 102 H Respiratory Rate 16 16 16 Blood Pressure 115/63 119/68 Pulse Oximetry 100 100 07/30/18 00:00 07/30/18 00:30 07/30/18 01:00 Temperature 98.7 F Pulse Rate 103 H 106 H 105 H Respiratory Rate 16 18 16 Blood Pressure 106/58 L 106/59 L 105/59 L Pulse Oximetry 100 99 100 07/30/18 01:30 07/30/18 01:35 07/30/18 02:00 Temperature Pulse Rate 103 H 105 H Respiratory Rate 16 16 16 Blood Pressure 115/57 L 116/62 Pulse Oximetry 100 100 100 07/30/18 02:30 07/30/18 03:00 07/30/18 03:30 Temperature Pulse Rate 103 H 103 H 104 H Respiratory Rate 16 13 15 Blood Pressure 111/60 105/61 101/61 Pulse Oximetry 100 100 100 07/30/18 03:54 07/30/18 04:00 07/30/18 04:30 Temperature 98.7 F Pulse Rate 103 H 100 H 106 H Respiratory Rate 16 16 16 Blood Pressure 103/59 L 106/59 L Pulse Oximetry 100 100 07/30/18 04:50 07/30/18 05:23 07/30/18 08:00 Temperature 98.1 F Pulse Rate 94 H 109 H Respiratory Rate 16 17 Blood Pressure 107/73 Pulse Oximetry 100 100 07/30/18 08:05 07/30/18 08:06 07/30/18 10:00 Temperature Pulse Rate 88 108 H Respiratory Rate 16 17 Blood Pressure Pulse Oximetry 100 07/30/18 11:09 07/30/18 12:00 07/30/18 13:58 Temperature 98.3 F Pulse Rate 101 H 119 H 119 H Respiratory Rate 16 34 H Blood Pressure 119/57 L Pulse Oximetry 100 98 07/30/18 15:12 07/30/18 16:00 Temperature 98.8 F Pulse Rate 100 H 114 H Respiratory Rate 16 16 Blood Pressure 103/55 L Pulse Oximetry 98 100 Intake & Output 07/29/18 07/30/18 07/30/18 18:59 06:59 18:59 Intake Total 715 / 715 1113 / 1113 408 / 408 Output Total 1500 / 1500 800 / 800 Balance -785 / -785 313 / 313 408 / 408 Weight 76 kg Intake: IV 400 / 400 560 / 560 408 / 408 Diprivan 1000 mg/100 ml Inj 1, 300 / 300 300 / 300 200 / 200 000 mg In 100 ml @ 5 MCG/KG/MIN 2.397 mls/hr IV.CONT TITRATE PRN Rx#:[id number] Magnesium Sulfate Inj 4 GM In 108 / 108 D5W Inj 100 ML @ 25 mls/hr IV. SIG ONCE ONE Rx#:[id number] Magnesium Sulfate Inj 2 GM In 100 / 100 NS Inj 96 ML @ 50 mls/hr IV.SIG ONCE ONE Rx#:[id number] KCl 20 mEq Premix Inj 20 meq In 100 / 100 100 ml @ 50 mls/hr IV.SIG Q2H PRN Rx#:[id number] Potassium Phosphate Inj 30 MMOL 260 / 260 In NS Inj 250 ML @ 43.333 mls/ hr IV.SIG ONCE ONE Rx#:[id number] Tube Feeding 225 / 225 493 / 493 Tube Irrigant 90 / 90 60 / 60 Output: Urine Amount (Catheter) 1500 / 1500 800 / 800 Indwelling Urethral Catheter 1500 / 1500 800 / 800 Other: Date of Last Bowel Movement 07/27/18 07/28/18 07/28/18 # Bowel Movements 0 GENERAL: Obese AA male, on vent, sedated SKIN: Warm and dry. HEAD: Normocephalic. EYES: No scleral icterus. No injection or drainage. NECK: Supple, trachea midline. No JVD or lymphadenopathy. CARDIOVASCULAR: Regular rate and rhythm without murmurs, gallops, or rubs. RESPIRATORY: Breath sounds equal bilaterally. No accessory muscle use. GASTROINTESTINAL: Abdomen soft, non-tender, distended. MUSCULOSKELETAL: No cyanosis, or edema. BACK: Nontender without obvious deformity. No CVA tenderness. 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 Abdominal distension, s/p decompression. Ileus PLAN: Cont vent support Sedation with Precedex Aerosol nebs Supplement 02 Solumedrol 20 mg q day Monitor BS DW , may need trach.
[2018-07-31] MEDS: Insulin NovoLOG Aspart Correctional Sugar Inj SQ SCH ×6 (00:35→23:31)
[2018-07-31] MEDS: Artificial Tears Opth Drops 15 ML Bottle EACH EYE SCH ×4 (00:36→23:33)
[2018-07-31] MEDS: Pantoprazole Inj 40 MG Vial IV.PUSH SCH ×2 (01:54→15:29)
[2018-07-31] MEDS: Propofol 1000 mg/100 ml Inj 1,000 MG/100 ML BOTTLE IV.CONT PRN (03:51)
[2018-07-31] MEDS: Metoprolol Inj 5 MG/5 ML Vial IV.PUSH SCH (03:57)
--- NOTE | 2018-07-31 05:26 | XR ---
EXAM DATE: 07/31/2018 4:31 AM EST AGE/SEX: 73 years / Male INDICATIONS: Shortness of breath, possible pulmonary disease. CLINICAL DATA: This is the patient's subsequent encounter. Patient reports that signs and symptoms h ave been present for 1 week and indicates a pain score of Nonresponsive. MEDICAL/SURGICAL HISTORY: Chronic obstructive pulmonary disease. Diabetes. Hypertension. Non- responsive. COMPARISON: [facility], CHEST 1V SINGLE AP, 07/30/2018. . FINDINGS: Endotracheal tube in good position. NG enters stomach. Bilateral mostly basilar patchy airspace disea se increased from July 22, 2018, especially on the right. Small effusions. CONCLUSION: Increase in basilar airspace disease since July 30. Support apparatus unchanged. Electronically signed by: Angus Millan MD 07/31/2018 5:24 AM EST
[2018-07-31 05:43] LABS: Baso % (Auto) 0.1 % (0.0-2.0); Eos % (Auto) 0.1 % (0.0-4.0); Hematocrit 23.9 % (39.0-51.0); Lymph # (Auto) 0.7 th/mm3 (1.0-4.8); Mean Corpuscular HGB Conc 33.5 % (32.0-36.0); Mean Corpuscular Hemoglobin 31.2 pg (27.0-34.0); Mean Corpuscular Volume 93.2 fL (80.0-100.0); Mean Platelet Volume 10.4 fL (7.0-11.0); Mono # (Auto) 0.3 th/mm3 (0.0-0.9); Mono % (Auto) 4.6 % (0.0-8.0); Neut # (Auto) 5.3 th/mm3 (1.8-7.7); Neut % (Auto) 84.2 % (16.0-70.0); Platelet Count 55 th/mm3 (150-450); Red Blood Count 2.56 mil/mm3 (4.50-5.90); Red Cell Distribution Width 15.7 % (11.6-17.2); White Blood Count 6.3 th/mm3 (4.0-11.0)
[2018-07-31 06:18] LABS: Anion Gap 6 meq/L (5-15); Blood Urea Nitrogen 13 mg/dL (7-18); Calcium 6.8 mg/dL (8.5-10.1); Carbon Dioxide 35.9 meq/L (21.0-32.0); Chloride 105 meq/L (98-107); Glomerular Filtration Rate Greater Than 89 mL/min (>89); Glucose,Random 254 mg/dL (74-106); Magnesium 2.1 mg/dL (1.5-2.5); Phosphorus 1.9 mg/dL (2.5-4.9); Potassium 3.3 meq/L (3.5-5.1); Sodium 147 meq/L (136-145)
[2018-07-31 06:27] LABS: Albumin 2.4 g/dL (3.4-5.0); Calcium-Albumin Corrected 8.1 mg/dL (8.5-10.1)
[2018-07-31] MEDS: Potassium Chloride 25 MEQ Effervescent Tablet PO PRN (06:39)
[2018-07-31] MEDS: Dexmedetomidine Inj 200 MCG in Sodium Chlor 0.9% Inj 48 ML IV.CONT PRN ×5 (07:36→22:43)
[2018-07-31 07:54] LABS: Lymphocytes 11 % (9-44); Metamyelocytes 1 % (0-1); Myelocytes 2 % (0-0); Platelet Morphology Normal (Normal); Tallied Nucleated RBC 1 (0-0)
[2018-07-31] MEDS: Multivitamin/Minerals Therapeutic Tablet PO SCH (08:24)
[2018-07-31] MEDS: Ascorbic Acid 500 MG Tablet PO SCH (08:25)
[2018-07-31] MEDS: Docusate Sodium Liq 100 MG/10 ML UDC NG/OG SCH ×2 (08:27→23:31)
[2018-07-31] MEDS: Bisacodyl 10 MG Supp RECTAL SCH (08:27)
[2018-07-31] MEDS: Polyethylene Glycol 3350 17 GM Packet PO SCH (08:27)
[2018-07-31] MEDS: Methylnaltrexone Inj 12 MG/0.6 ML Vial SQ SCH (08:28)
[2018-07-31] MEDS: Calcium/Vitamin D 250/125 MG Tablet PO SCH (08:28)
[2018-07-31] MEDS: Sennosides Liq 8.8 MG/5 ML UDC NG/OG SCH ×2 (08:28→23:32)
[2018-07-31] MEDS: Insulin Detemir Inj 1,000 UNIT/10 ML Vial SQ SCH ×2 (08:30→23:31)
--- NOTE | 2018-07-31 10:05 | P.PNCC ---
Subjective Subjective Remarks/Hospital Course: Mr. Curry is a 73-year-old -[place] male with past medical history significant for COPD on 3 L nasal cannula, hypertension, hyperlipidemia and anxiety who was admitted to the hospitalist service on 06/19/2018 for worsening shortness of breath due to COPD exacerbation. He was treated with IV Solu- Medrol, IV antibiotics, breathing treatments gradually improved. Patient was also complaining about dyspepsia and underwent EGD by GI yesterday. Per report the EGD was normal but patient developed worsening shortness of breath and COPD exacerbation postprocedure, possibly from aspiration after sedated. Two ABGs done yesterday showed hypercapnic respiratory failure second 1 was on BiPAP and this was improved with pH 7.3 with PCO2 of 74. Patient remained on BiPAP overnight however was noticed to be lethargic today a.m., stat ABG showed pH of 7.21 PCO2 110 PO2 88 while on BiPAP. Patient was lethargic intermittently dozing off due to CO2 narcosis. Critical care medicine was consulted and I immediately evaluated the patient. Patient had obviously failed BiPAP I proceeded with endotracheal intubation placed on mechanical ventilation. Postintubation I have ordered single dose of Solu-Medrol 125 mg x1 continue Solu -Medrol 60 every 8, discontinue ceftriaxone and start cefepime 2 g IV every 8 hours continue azithromycin. Add budesonide inhaled, placed on scheduled DuoNeb every 4 hours and as needed. 06/27: Patient was intubated yesterday for severe hypercapnic respiratory failure. Currently remains intubated sedated and intubated remains diminished bilaterally. Heavily sedated for ventilator synchrony 06/28: Urine output significantly improved with fluid resuscitation. Creat down trending now 2 from 2.3, UO >3.3 L. Remains intubated sedated. Will initiate daily sedation vacation and CPAP trials 06/29: More awake today tolerating CPAP trials intermittently follows commands but gets agitated/frustrated fast. Urine output remains excellent creatinine 1.4. However sodium increasing 158 today. Night business transformation consultant had changed fluid to D5 W for free water replacement. Due to hypoglycemia will change to quarter normal saline at 150 mL/h repeat CMP in the afternoon 06/30 Patient was extubated yesterday. Awake 07/01 Patient is lying in bed in NAD. T: 100.5 07/02: Intubated early this morning due to acute hypoxic respiratory failure. Central line placed due to hypotension. Plan for GI perform endoscopic decompression of this large bowel today. Arousable and does follow commands. Placed on argatroban 07/03: Currently, intubated with borderline blood pressure. Central line placed yesterday due to hypotension. Did not move bowels despite 1 L of fluid from colonoscopy yesterday and multiple laxatives provided. See orders for additional laxatives today. Might need neostigmine. 07/04 Patient remains intubated and sedated with Diprivan. Given Neostigmine last night. KUB this morning showed colonic ileus. Afebrile. On Argatroban. 07/05 No events overnight, sedated with Diprivan and intubated. Off Argatroban. 07/06 Patient remains intubated and sedated. Afebrile. 07/07 Patient remains intubated, s/p decompressive colonoscopy yesterday. Awake. 07/08 Patient s/p extubation yesterday. Awake and alert. 07/09 Patient is awake, alert lying in bed in NAD. Afebrile. 07/10 Patient is awake and alert, Afebrile. 07/11 Patient s/p decompressive colonoscopy yesterday. Afebrile. On Lasix drip.( UOP: 2800ml overnight). Cr: 3.0 from 2.25. 07/12 Patient is awake, alert given Neostigmine overnight. NGT to LIWS, off Lasix drip. 07/13: Resting comfortably in bed in no acute distress. 3 bowel movements documented. Remains n.p.o. Bladder pressures around 6. Potassium being replaced. Remains anemic around 7. 07/14 Patient is lying in bed in NAD. Afebrile. 07/15 No events overnight. Afebrile. 07/16: Resting in bed mild distress. Abdomen remains distended. Hemoglobin has dropped to 6.2 2 units of PRBC ordered. Patient underwent decompressive colonoscopy by Dr. Berrios for colonic ileus 07/17: No significant overnight events, patient states that he wants to get out of bed to a chair as he is having rectal discomfort. 07/18: Patient reportedly had a BM after digital rectal exam yesterday, states that he's been passing flatus "every now and then" overnight. No plans for OR or sigmoidoscopy as per colorectal service, OK to transfer out [place] [facility] 07/19: Patient transferred to [facility] yesterday, complained of shortness of breath again today. An ABG showed a pCO2 of 79 so he was placed on bipap and transferred to [facility]. Most recent ABG shows pCO2 of 66, KUB still has abdominal distension but appears to be improved when compared to KUB from 07/15. Patient has reportedly been having bowel movements and passing flatus overnight. 07/20: No dramatic improvement in abdominal distention however abdomen soft. The patient was able to breathe comfortably overnight and remained alert. This morning the BiPAP mask was removed for half an hour and the patient did well without evidence of CO2 retention or somnolence. Reconsult note 07/23: The patient was a halicat from the [facility] floor. Patient was noted to be somnolent, had difficulty breathing. Stat ABG was performed revealing a PCO2 of 113. The patient was placed on BiPAP and transferred to [facility]. Currently remains on CPAP respiratory rate is 25 , 16/5 with an FiO2 35%. 07/24: Overnight the patient was placed on BiPAP 10/5 refusing BiPAP pulling out IVs. The patient became tachycardic refusing p.o. medications. The patient was placed on a Cardizem infusion currently at 5 mg an hour. Patient is more compliant at this time the patient's BiPAP settings were increased to 15 /5 35% stat ABGs were ordered the patient was noted to have a PCO2 of 89, continues with hypercapnic respiratory failure in the setting of severe COPD. Extensive discussion with family at bedside the patient's sister and daughter provided medical status update on recent transfer to ICU and current standing. Inform family that patient is at risk for for emergent intubation. Repeat ABG pending this evening. 07/25: Patient noted to have episodes of agitation continually removing BiPAP. I discussed with patient the criticality of his illness and possible intubation patient now agrees to wear BiPAP with exception of meals. Patient's diet was advanced to clear liquid noted improvement of chest x-ray patient is noted to have last bowel movement approximately 2 days ago we will continue to monitor and follow-up GI recommendations . Noted electrolyte repletion at this time. PCO2 now in the 60s. 07/26: Patient continues to be noncompliant with BiPAP mask. ABGs obtained noting a PO2 of 45.6. The patient was emergently intubated this afternoon. Chest x-ray and repeat ABG pending at this time. Noted patient's last bowel movement last night. 07/27: Afebrile. Remains on ventilator. Will start tube feeding today. BM noted overnight. Replacing potassium phosphate, calcium chloride x1 now. And magnesium sulfate 07/28: Afebrile. Did not tolerate CPAP trial the same. Tolerating tube feeds today. Last bowel movement yesterday 09/26. Mild ileus on abdominal x-ray today. 07/29: Afebrile. Tolerated CPAP times 3 hours. He is intolerant to P. 2 bowel movements. Abdominal x-ray unchanged but no signs of obstructive or ileus. 07/30: Afebrile. Currently on CPAP trials. Positive BM. No change in neurological status. Increasing metoprolol to 5 mg IV every 6 hours. Subjective 07/31: Again on CPAP trials. Awake and alert on dexmedetomidine drip. Will put on metoprolol tartrate 25 mg every 8 hours and titrate. Positive BM. Recheck KUB in a.m. 08/01. Objective Vital Signs / I&O: Vital Signs 07/30/18 11:09 07/30/18 12:00 07/30/18 13:58 Temperature 98.3 F Pulse Rate 101 H 119 H 119 H Respiratory Rate 16 34 H Blood Pressure 119/57 L Pulse Oximetry 100 98 07/30/18 15:12 07/30/18 16:00 07/30/18 16:23 Temperature 98.8 F Pulse Rate 100 H 114 H 109 H Respiratory Rate 16 16 16 Blood Pressure 103/55 L 101/58 L Pulse Oximetry 98 100 100 07/30/18 16:30 07/30/18 17:00 07/30/18 17:01 Temperature Pulse Rate 99 H 101 H 101 H Respiratory Rate 16 16 16 Blood Pressure 104/57 L 150/63 H Pulse Oximetry 99 99 100 07/30/18 17:53 07/30/18 18:00 07/30/18 19:00 Temperature Pulse Rate 100 H 103 H 101 H Respiratory Rate 16 16 Blood Pressure 101/55 L 98/55 L Pulse Oximetry 99 98 07/30/18 20:00 07/30/18 21:00 07/30/18 22:00 Temperature 98.4 F Pulse Rate 103 H 107 H 91 H Respiratory Rate 17 16 16 Blood Pressure 106/62 106/58 L 106/63 Pulse Oximetry 99 98 99 07/30/18 23:00 07/30/18 23:45 07/31/18 00:00 Temperature Pulse Rate 96 H 99 H 100 H Respiratory Rate 16 16 22 Blood Pressure 118/61 105/59 L Pulse Oximetry 100 100 07/31/18 00:54 07/31/18 01:00 07/31/18 02:00 Temperature Pulse Rate 104 H 101 H Respiratory Rate 17 17 20 Blood Pressure 112/61 106/56 L Pulse Oximetry 99 99 100 07/31/18 03:00 07/31/18 03:45 07/31/18 04:00 Temperature Pulse Rate 101 H 101 H 84 Respiratory Rate 16 16 16 Blood Pressure 107/58 L 122/59 L Pulse Oximetry 99 99 98 07/31/18 07:53 07/31/18 08:00 Temperature 97.9 F Pulse Rate 89 95 H Respiratory Rate 16 17 Blood Pressure 100/57 L Pulse Oximetry 100 99 Intake & Output 07/30/18 07/31/18 07/31/18 18:59 06:59 18:59 Intake Total 1102 / 1102 1005 / 1005 100 / 100 Output Total 1150 / 1150 1050 / 1050 Balance -48 / -48 -45 / -45 100 / 100 Weight 77.5 kg Intake: IV 408 / 408 400 / 400 100 / 100 Diprivan 1000 mg/100 ml Inj 1, 200 / 200 400 / 400 100 / 100 000 mg In 100 ml @ 5 MCG/KG/MIN 2.397 mls/hr IV.CONT TITRATE PRN Rx#:[id number] Magnesium Sulfate Inj 4 GM In 108 / 108 D5W Inj 100 ML @ 25 mls/hr IV. SIG ONCE ONE Rx#:[id number] KCl 20 mEq Premix Inj 20 meq In 100 / 100 100 ml @ 50 mls/hr IV.SIG Q2H PRN Rx#:[id number] Tube Feeding 604 / 604 605 / 605 Tube Irrigant 90 / 90 Output: Urine Amount (Catheter) 1150 / 1150 1050 / 1050 Indwelling Urethral Catheter 1150 / 1150 1050 / 1050 Other: Date of Last Bowel Movement 07/28/18 07/31/18 # Bowel Movements 2 # Incontinent Bowel Movements 1 Result Diagrams: 07/31/18 04:57 07/31/18 04:57 Other Results: Microbiology 07/28/18 06:00 Catheterized Urine Urine Culture - Final Koki albicans 07/11/18 13:50 Blood - Peripheral Aerobic Blood Culture - Final No growth in 5 days 07/11/18 13:50 Blood - Peripheral Anaerobic Blood Culture - Final No growth in 5 days 07/11/18 02:48 Blood - Peripheral Aerobic Blood Culture - Final No growth in 5 days 07/11/18 02:48 Blood - Peripheral Anaerobic Blood Culture - Final No growth in 5 days 07/11/18 16:50 Clean Catch Urine Urine Culture - Final No growth in 48 hours 07/09/18 00:30 Stool Cryptosporidium Antigen - Final Negative - No Cryptosporicium antigen detected In selected cases of patients with a history of immunosuppression or foreign travel, a full ova and parasites examination may be desired. Contact the microbiology lab if full workup is indicated and subit another specimen for testing. 07/09/18 00:30 Stool Giardia Antigen (GERONIMO) - Final Negative - No Giardia Antigen detected In selected cases of patients with a history of immunosuppression or foreign travel, a full ova and parasites examination may be desired. Contact the microbiology lab if full workup is indicated and subit another specimen for testing. 07/02/18 05:41 Blood - Peripheral Aerobic Blood Culture - Final No growth in 5 days 07/02/18 05:41 Blood - Peripheral Anaerobic Blood Culture - Final No growth in 5 days 07/02/18 05:47 Blood - Peripheral Aerobic Blood Culture - Final No growth in 5 days 07/02/18 05:47 Blood - Peripheral Anaerobic Blood Culture - Final No growth in 5 days 07/02/18 22:00 Sputum - Endotracheal Gram Stain - Final 07/02/18 22:00 Sputum - Endotracheal Sputum Culture - Final Heavy growth normal respiratory justyn 06/26/18 10:10 Sputum - Endotracheal Gram Stain - Final 06/26/18 10:10 Sputum - Endotracheal Sputum Culture - Final Light growth normal respiratory justyn Imaging: Chest X-Ray 06/19/18 20:38 CONCLUSION: No evidence of acute cardiopulmonary disease. Abdomen Ultrasound 06/21/18 00:00 CONCLUSION: 1. No ascites is identified within the abdomen. Abdomen X-Ray 06/21/18 00:00 CONCLUSION: No acute findings. Mild constipation. Chest X-Ray 06/23/18 00:00 CONCLUSION: 1. No acute abnormality or significant interval change. Abdomen/Pelvis CT 06/24/18 00:00 CONCLUSION: 1. Benign appearing right adrenal mass. 2. No acute CT findings in the abdomen or pelvis. Chest X-Ray 06/25/18 00:00 CONCLUSION: Suspected mild atelectasis or consolidation at the medial right base. Chest X-Ray 06/26/18 00:00 CONCLUSION: 1. Endotracheal tube is appropriately positioned above the christy. 2. Nasogastric tube traverses the GE junction and is curled in the gastric lumen. 3. Lungs are clear. Abdomen X-Ray 06/26/18 09:21 CONCLUSION: 1. Nonobstructive bowel gas pattern without pneumoperitoneum. 2. Nasogastric tube is curled in the expected location of the gastric body. I believe the portions of the tube identified over the heart shadow is probably projectional as there is no evidence of a significant hiatal hernia on the most recent CT of the abdomen. Chest X-Ray 06/26/18 15:37 CONCLUSION: 1. Lungs remain clear. 2. Interval placement of a right IJ central venous catheter with the tip projecting over the central venous system. No pneumothorax. 3. Endotracheal and nasogastric tubes remain appropriately positioned. Abdomen/Bladder Ultrasound 06/28/18 00:00 CONCLUSION: 1. Echogenic kidneys characteristic of medical renal disease. No hydronephrosis. Bladder decompressed by Moreno Chest X-Ray 06/28/18 06:00 CONCLUSION: The lungs are clear. Lines and tubes stable. Chest X-Ray 06/29/18 06:00 CONCLUSION: The lungs are clear. Lines and tubes stable. Venous Doppler Study 07/01/18 00:00 CONCLUSION: 1. The study is negative for bilateral lower extremity deep venous thrombosis. Chest X-Ray 07/01/18 20:41 CONCLUSION: Negative examination. Chest CTA 07/02/18 00:00 CONCLUSION: 1. No pulmonary embolus. 2. Diffuse but basilar predominant bilateral airspace disease. 3. Endotracheal and endobronchial secretions are demonstrated. 4. Moderate emphysema. 5. Left ventricular hypertrophy. Venous Doppler Study 07/02/18 00:00 CONCLUSION: 1. Limited, no evidence for thrombosis. Chest X-Ray 07/02/18 04:04 CONCLUSION: 1. Interim intubation and nasogastric tube placement as above. 2. Mild bibasilar atelectasis has developed. Abdomen/Pelvis CT 07/02/18 04:20 CONCLUSION: Colonic distention most likely representing moderate adynamic ileus. However, distal sigmoid colon is decompressed and a sigmoid stricture is conceivable but considered less likely. Apparent mild proctitis. Clinical surveillance and follow-up CT recommended. Chest X-Ray 07/02/18 14:46 CONCLUSION: Left IJ line in good position. There is no pneumothorax. Abdomen X-Ray 07/04/18 00:01 CONCLUSION: Findings of colonic ileus Chest X-Ray 07/04/18 06:00 CONCLUSION: Cardiomegaly and findings of vascular congestion without overt failure. There has been no significant change when compared to the prior exam. Abdomen X-Ray 07/05/18 07:08 CONCLUSION: No significant interval change with persistent diffuse air-filled distention of the colon suggesting ileus. Chest X-Ray 07/07/18 07:12 CONCLUSION: Minimal bibasilar densities likely atelectasis. Abdomen X-Ray 07/07/18 07:13 CONCLUSION: Gaseous distention of multiple bowel loops has improved since previous study. Abdomen X-Ray 07/09/18 07:14 CONCLUSION: 1. Apparent interval removal of NGT. 2. Improving bowel gas pattern consistent with improving adynamic ileus. Abdomen/Pelvis CT 07/10/18 08:31 CONCLUSION: 1. There is gas and fluid distending the colon. The patient has a rectal tube in place however the rectal tube is kinked back on itself and occluded. The overall size of the colon has mildly increased when compared to previous exam. The small bowel is normal in caliber. 2. Interval development of a small left basilar effusion and atelectasis. Chest X-Ray 07/10/18 08:42 CONCLUSION: Mild patchy bilateral lung base opacity likely representing atelectasis unchanged. Small left pleural effusion now seen. Abdomen X-Ray 07/11/18 00:00 CONCLUSION: 1. Questionable NGT at the GE junction, as above. 2. Moderately improved colonic distention. Abdomen X-Ray 07/12/18 00:00 CONCLUSION: Probable generalized ileus. No abrupt caliber changes are seen. No free air. Nasogastric tube tip is in the upper stomach. No gastric distention seen. Abdomen X-Ray 07/14/18 06:00 CONCLUSION: Distended air-filled colon. Ileus is the most likely etiology for this pattern. Abdomen X-Ray 07/15/18 00:00 CONCLUSION: Persistent air-filled loops of small and large bowel suggesting probably ileus. Clinical correlation is recommended. Venous Doppler Study 07/15/18 00:00 CONCLUSION: 1. Limited suboptimal examination. 2. Nonocclusive thrombus in the jugular vein. Chest X-Ray 07/16/18 10:00 CONCLUSION: Mild bibasilar consolidations, presumably atelectasis is unchanged. Abdomen X-Ray 07/19/18 14:09 CONCLUSION: Negative examination. Chest X-Ray 07/19/18 14:10 CONCLUSION: 1. No acute cardiopulmonary disease. 2. Mild degenerative changes and scoliosis of the thoracic spine. Chest X-Ray 07/23/18 00:00 CONCLUSION: Negative examination. Chest X-Ray 07/24/18 00:00 CONCLUSION: Mild bibasilar consolidation. Chest X-Ray 07/25/18 04:00 CONCLUSION: Previous basilar opacity has resolved. No new infiltrate or effusion. Abdomen X-Ray 07/26/18 00:00 CONCLUSION: Orogastric tube tip is in the distal stomach or proximal duodenum. Chest X-Ray 07/26/18 17:00 CONCLUSION: 1. ETT in good position. 2. No acute abnormality. Chest X-Ray 07/27/18 04:00 CONCLUSION: Endotracheal tube and nasogastric tube in good position. Minimal dependent atelectasis in the lungs. Abdomen X-Ray 07/28/18 00:01 CONCLUSION: Mild ileus. No evidence for obstruction or free air. Chest X-Ray 07/28/18 06:00 CONCLUSION: Mild basilar atelectasis. No effusion or pneumothorax. Abdomen X-Ray 07/29/18 00:01 CONCLUSION: NG tip in duodenum. No acute findings. Chest X-Ray 07/29/18 06:00 CONCLUSION: Endotracheal tube and nasogastric tube unchanged. Stable to slight increase in basilar airspace disease since July 28. Chest X-Ray 07/30/18 06:00 CONCLUSION: Stable exam compared with July 22, 2017 with support apparatus in good position. Abdomen X-Ray 07/30/18 15:07 CONCLUSION: Benign-appearing KUB. Chest X-Ray 07/31/18 06:00 CONCLUSION: Increase in basilar airspace disease since July 30. Support apparatus unchanged. Objective Remarks: GENERAL: 73-year-old elderly -[place]ovenian male sitting in bed, currently orotracheally intubated SKIN: Warm and dry HEAD: Normocephalic. EYES: PERRL NECK: Supple, trachea midline. Airway widely patent, no obstructive noises CARDIOVASCULAR: Tachycardic, normal rhythm. S1, S2. No S4. No murmur RESPIRATORY: Diminished breath sounds in bases noted .B/L equal air entry, patient noted to be dyspneic, with accessory muscle use GASTROINTESTINAL: Abdomen less distended, non-tender, no guarding, bowel sounds present MUSCULOSKELETAL: Trace to bilateral upper/ lower extremity edema, warm and well- perfused Neuro: Sedated on a propofol drip. Positive gag and cough. Positive corneal reflex. Follows commands by moving upper and lower extremities withdraws to pain bilateral upper and lower extremities. Opens eyes to voice. Assessment and Plan - Assessment and Plan Plan: NEURO/Psych: Altered mental status due to CO2 retention -Monitor neuro status, avoid sedatives -F/U acetylcholine receptor and autoantibodies was negative RESP: Hypercapnic respiratory failure Acute COPD exacerbation -Extubated 06/29. Reintubated 07/02 extubated again 07/07, reintubated 07/26 -Patient currently on PRVC -Albuterol/ipratropium aerosols every 4 hours scheduled and albuterol aerosols every 2 hours as needed -Wean methylprednisolone succinate from 40 mg to 20 mg daily -Inhaled budesonide -Chest x-ray in a.m. 08/01 CV: Essential hypertension - Monitor HR and BP keep MAP>65mmHg -Currently on IV metoprolol 5 mg IV every 6 hours. Toprol tartrate 25 mg by tube every 8 hours GI: Colonic ileus -KUB 07/13: Stable nonobstructive colonic distention. Given Neostigmine 07/11. -s/p repeat decompressive colonoscopy 07/10 and 07/15 -Continue pantoprazole -On docusate sodium/senna 1 tablet twice daily, lactulose 30 cc 4 times daily, polyethylene glycol 17 g daily. Fleets enema daily. Naltrexone 12 mg subcu daily -Insert NG tube. Continue tube feeding with Glucerna 1.5 goal 45 cc daily per rectum recent recommendation -Abdominal x-ray revealed nonspecific bowel gas pattern. FEN//renal: Hypernatremia Hypophosphatemia Hypopotassemia -Monitor renal function, I/O's, avoid nephrotoxins -Renal function stable -Renal- Dr. Figueroa has followed Received 30 mmol K-Phos, 25 milliequivalents potassium chloride by tube. Recheck electrolytes in a.m. Free water 200 cc every 6 hours ID: -Off abx monitor for signs of infections (Fever, WBC) WBC stable -BC and urine cx from 07/11- NG in 5 days -07/02 BC: NGTS, sputum cx 07/02:normal resp justyn -ID is following- Dr. Brown PRN HEME: Normocytic anemia Thrombocytopenia -Monitor CBC, coags, Hep PLT is positive. ANNMARIE negative. Hematology is following. Off argatroban drip -s/p 2U PRBCs on 07/16, Hgb 8.8, used for hemoglobin less than 7 -Stable thrombocytopenia-avoid medications that precipitate thrombocytopenia -Strict bedrest for now ENDO: -Sliding scale insulin medium scale aspart insulin every 4 hours. Continue insulin detemir 10 units twice daily PROPH: -Bilateral lower extremity SCDs. PPI -Doppler US LE negative DVT 07/02 LINES: -Utilize peripheral IVs Level 2 follow-up
[2018-07-31] MEDS ORDERED: Potassium Chloride 25 MEQ Effervescent Tablet PO ONE (11:00)
[2018-07-31] MEDS ORDERED: Potassium Phosphate Inj 30 MMOL in Sodium Chlor 0.9% Inj 250 ML IV.SIG ONE (12:00)
[2018-07-31] MEDS: Metoprolol Tartrate 25 MG Tablet PO SCH ×3 (12:33→17:27)
--- NOTE | 2018-07-31 18:41 | P.PNPL ---
Subjective Interval history: 73 YOAA male with COPD, 02 dependent Follows at [facility] Admitted with AMS, COPD exac Reintubated 07/26 due to worsening resp status Tolerated CPAP with PS 20 for 4-5 hrs On PRVC vent Sedated with Precedex. Had large BM Physical Exam Vital signs: Vital Signs 07/30/18 19:00 07/30/18 20:00 07/30/18 21:00 Temperature Pulse Rate 101 H 103 H 107 H Respiratory Rate 16 17 16 Blood Pressure 98/55 L 106/62 106/58 L Pulse Oximetry 98 99 98 07/30/18 22:00 07/30/18 23:00 07/30/18 23:45 Temperature 98.4 F Pulse Rate 91 H 96 H 99 H Respiratory Rate 16 16 16 Blood Pressure 106/63 118/61 Pulse Oximetry 99 100 07/31/18 00:00 07/31/18 00:54 07/31/18 01:00 Temperature Pulse Rate 100 H 104 H Respiratory Rate 22 17 17 Blood Pressure 105/59 L 112/61 Pulse Oximetry 100 99 99 07/31/18 02:00 07/31/18 03:00 07/31/18 03:45 Temperature Pulse Rate 101 H 101 H 101 H Respiratory Rate 20 16 16 Blood Pressure 106/56 L 107/58 L Pulse Oximetry 100 99 99 07/31/18 04:00 07/31/18 07:53 07/31/18 08:00 Temperature 97.9 F Pulse Rate 84 89 95 H Respiratory Rate 16 16 17 Blood Pressure 122/59 L 100/57 L Pulse Oximetry 98 100 99 07/31/18 12:00 07/31/18 15:18 07/31/18 16:00 Temperature 98.1 F 98.5 F Pulse Rate 109 H 115 H 123 H Respiratory Rate 17 12 29 H Blood Pressure 103/59 L 97/59 L Pulse Oximetry 97 98 07/31/18 16:44 Temperature Pulse Rate Respiratory Rate 16 Blood Pressure Pulse Oximetry 99 Intake & Output 07/30/18 07/31/18 07/31/18 18:59 06:59 18:59 Intake Total 1102 / 1102 1005 / 1005 885 / 885 Output Total 1150 / 1150 1050 / 1050 850 / 850 Balance -48 / -48 -45 / -45 35 / 35 Weight 77.5 kg Intake: IV 408 / 408 400 / 400 200 / 200 Precedex Inj 200 MCG In NS Inj 100 / 100 48 ML @ 0.2 MCG/KG/HR 3.8 mls/ hr IV.CONT TITRATE PRN Rx#: [id number] Diprivan 1000 mg/100 ml Inj 1, 200 / 200 400 / 400 100 / 100 000 mg In 100 ml @ 5 MCG/KG/MIN 2.397 mls/hr IV.CONT TITRATE PRN Rx#:[id number] Magnesium Sulfate Inj 4 GM In 108 / 108 D5W Inj 100 ML @ 25 mls/hr IV. SIG ONCE ONE Rx#:[id number] KCl 20 mEq Premix Inj 20 meq In 100 / 100 100 ml @ 50 mls/hr IV.SIG Q2H PRN Rx#:[id number] Tube Feeding 604 / 604 605 / 605 395 / 395 Tube Irrigant 90 / 90 90 / 90 Water Bolus Amount 200 / 200 Output: Urine Amount (Catheter) 1150 / 1150 1050 / 1050 850 / 850 Indwelling Urethral Catheter 1150 / 1150 1050 / 1050 850 / 850 Other: Date of Last Bowel Movement 07/28/18 07/31/18 07/31/18 # Bowel Movements 2 # Incontinent Bowel Movements 1 1 GENERAL: Obese AA male, on Vent, opens eyes SKIN: Warm and dry. HEAD: Normocephalic. EYES: No scleral icterus. No injection or drainage. NECK: Supple, trachea midline. No JVD or lymphadenopathy. CARDIOVASCULAR: Regular rate and rhythm without murmurs, gallops, or rubs. RESPIRATORY: Breath sounds equal bilaterally. No accessory muscle use. GASTROINTESTINAL: Abdomen soft, non-tender, distended. MUSCULOSKELETAL: No cyanosis, or edema. BACK: Nontender without obvious deformity. No CVA tenderness. 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 Abdominal distension, s/p decompression. Ileus PLAN: Cont vent support Sedation with Precedex Aerosol nebs Supplement 02 Monitor BS Daily CPAP trial
[2018-08-01] MEDS: Dexmedetomidine Inj 200 MCG in Sodium Chlor 0.9% Inj 48 ML IV.CONT PRN (01:31)
[2018-08-01] MEDS: Pantoprazole Inj 40 MG Vial IV.PUSH SCH ×2 (02:56→14:58)
[2018-08-01] MEDS: Insulin NovoLOG Aspart Correctional Sugar Inj SQ SCH ×7 (03:56→23:51)
[2018-08-01] MEDS: Dexmedetomidine Inj 1,000 MCG in Sodium Chlor 0.9% Inj 240 ML IV.CONT PRN ×3 (04:39→20:32)
--- NOTE | 2018-08-01 06:30 | XR ---
EXAM DATE: 08/01/2018 5:59 AM EST AGE/SEX: 73 years / Male INDICATIONS: COPD CLINICAL DATA: This is the patient's subsequent encounter. Patient reports that signs and symptoms h ave been present for 2 weeks and indicates a pain score of Nonresponsive. MEDICAL/SURGICAL HISTORY: . Chronic obstructive pulmonary disease. Diabetes. Hypertension. Non -responsive. COMPARISON: [facility] [place] SINGLE [place], 07/31/2018. . FINDINGS: Portable AP view of the chest demonstrates a normal-sized cardiac silhouette with calcification of th e aorta. ETT and nasogastric tube remain present and multiple EKG lines overlie the patient. There is minimal bibasilar airspace opacity, slightly improved from yesterday's examination. No pleural effus ion or pneumothorax is identified. CONCLUSION: Mild improvement in the bibasilar airspace opacity. Electronically signed by: Jimy Mendoza MD 08/01/2018 6:28 AM EST
[2018-08-01] MEDS: Artificial Tears Opth Drops 15 ML Bottle EACH EYE SCH ×3 (08:49→23:51)
[2018-08-01] MEDS: Docusate Sodium Liq 100 MG/10 ML UDC NG/OG SCH ×2 (09:00→20:29)
--- NOTE | 2018-08-01 09:08 | P.PNCC ---
Subjective Subjective Remarks/Hospital Course: Mr. Curry is a 73-year-old -Finnish male with past medical history significant for COPD on 3 L nasal cannula, hypertension, hyperlipidemia and anxiety who was admitted to the hospitalist service on 06/19/2018 for worsening shortness of breath due to COPD exacerbation. He was treated with IV Solu- Medrol, IV antibiotics, breathing treatments gradually improved. Patient was also complaining about dyspepsia and underwent EGD by GI yesterday. Per report the EGD was normal but patient developed worsening shortness of breath and COPD exacerbation postprocedure, possibly from aspiration after sedated. Two ABGs done yesterday showed hypercapnic respiratory failure second 1 was on BiPAP and this was improved with pH 7.3 with PCO2 of 74. Patient remained on BiPAP overnight however was noticed to be lethargic today a.m., stat ABG showed pH of 7.21 PCO2 110 PO2 88 while on BiPAP. Patient was lethargic intermittently dozing off due to CO2 narcosis. Critical care medicine was consulted and I immediately evaluated the patient. Patient had obviously failed BiPAP I proceeded with endotracheal intubation placed on mechanical ventilation. Postintubation I have ordered single dose of Solu-Medrol 125 mg x1 continue Solu -Medrol 60 every 8, discontinue ceftriaxone and start cefepime 2 g IV every 8 hours continue azithromycin. Add budesonide inhaled, placed on scheduled DuoNeb every 4 hours and as needed. 06/27: Patient was intubated yesterday for severe hypercapnic respiratory failure. Currently remains intubated sedated and intubated remains diminished bilaterally. Heavily sedated for ventilator synchrony 06/28: Urine output significantly improved with fluid resuscitation. Creat down trending now 2 from 2.3, UO >3.3 L. Remains intubated sedated. Will initiate daily sedation vacation and CPAP trials 06/29: More awake today tolerating CPAP trials intermittently follows commands but gets agitated/frustrated fast. Urine output remains excellent creatinine 1.4. However sodium increasing 158 today. Night framing carpenter had changed fluid to D5 W for free water replacement. Due to hypoglycemia will change to quarter normal saline at 150 mL/h repeat CMP in the afternoon 06/30 Patient was extubated yesterday. Awake 07/01 Patient is lying in bed in NAD. T: 100.5 07/02: Intubated early this morning due to acute hypoxic respiratory failure. Central line placed due to hypotension. Plan for GI perform endoscopic decompression of this large bowel today. Arousable and does follow commands. Placed on argatroban 07/03: Currently, intubated with borderline blood pressure. Central line placed yesterday due to hypotension. Did not move bowels despite 1 L of fluid from colonoscopy yesterday and multiple laxatives provided. See orders for additional laxatives today. Might need neostigmine. 07/04 Patient remains intubated and sedated with Diprivan. Given Neostigmine last night. KUB this morning showed colonic ileus. Afebrile. On Argatroban. 07/05 No events overnight, sedated with Diprivan and intubated. Off Argatroban. 07/06 Patient remains intubated and sedated. Afebrile. 07/07 Patient remains intubated, s/p decompressive colonoscopy yesterday. Awake. 07/08 Patient s/p extubation yesterday. Awake and alert. 07/09 Patient is awake, alert lying in bed in NAD. Afebrile. 07/10 Patient is awake and alert, Afebrile. 07/11 Patient s/p decompressive colonoscopy yesterday. Afebrile. On Lasix drip.( UOP: 2800ml overnight). Cr: 3.0 from 2.25. 07/12 Patient is awake, alert given Neostigmine overnight. NGT to LIWS, off Lasix drip. 07/13: Resting comfortably in bed in no acute distress. 3 bowel movements documented. Remains n.p.o. Bladder pressures around 6. Potassium being replaced. Remains anemic around 7. 07/14 Patient is lying in bed in NAD. Afebrile. 07/15 No events overnight. Afebrile. 07/16: Resting in bed mild distress. Abdomen remains distended. Hemoglobin has dropped to 6.2 2 units of PRBC ordered. Patient underwent decompressive colonoscopy by Dr. Berrios for colonic ileus 07/17: No significant overnight events, patient states that he wants to get out of bed to a chair as he is having rectal discomfort. 07/18: Patient reportedly had a BM after digital rectal exam yesterday, states that he's been passing flatus "every now and then" overnight. No plans for OR or sigmoidoscopy as per colorectal service, OK to transfer out of [facility]. 07/19: Patient transferred to [facility] yesterday, complained of shortness of breath again today. An ABG showed a pCO2 of 79 so he was placed on bipap and transferred to [facility]. Most recent ABG shows pCO2 of 66, KUB still has abdominal distension but appears to be improved when compared to KUB from 07/15. Patient has reportedly been having bowel movements and passing flatus overnight. 07/20: No dramatic improvement in abdominal distention however abdomen soft. The patient was able to breathe comfortably overnight and remained alert. This morning the BiPAP mask was removed for half an hour and the patient did well without evidence of CO2 retention or somnolence. Reconsult note 07/23: The patient was a halicat from the [facility] floor. Patient was noted to be somnolent, had difficulty breathing. Stat ABG was performed revealing a PCO2 of 113. The patient was placed on BiPAP and transferred to [facility]. Currently remains on CPAP respiratory rate is 25 , 16/5 with an FiO2 35%. 07/24: Overnight the patient was placed on BiPAP 10/5 refusing BiPAP pulling out IVs. The patient became tachycardic refusing p.o. medications. The patient was placed on a Cardizem infusion currently at 5 mg an hour. Patient is more compliant at this time the patient's BiPAP settings were increased to 15 /5 35% stat ABGs were ordered the patient was noted to have a PCO2 of 89, continues with hypercapnic respiratory failure in the setting of severe COPD. Extensive discussion with family at bedside the patient's sister and daughter provided medical status update on recent transfer to ICU and current standing. Inform family that patient is at risk for for emergent intubation. Repeat ABG pending this evening. 07/25: Patient noted to have episodes of agitation continually removing BiPAP. I discussed with patient the criticality of his illness and possible intubation patient now agrees to wear BiPAP with exception of meals. Patient's diet was advanced to clear liquid noted improvement of chest x-ray patient is noted to have last bowel movement approximately 2 days ago we will continue to monitor and follow-up GI recommendations . Noted electrolyte repletion at this time. PCO2 now in the 60s. 07/26: Patient continues to be noncompliant with BiPAP mask. ABGs obtained noting a PO2 of 45.6. The patient was emergently intubated this afternoon. Chest x-ray and repeat ABG pending at this time. Noted patient's last bowel movement last night. 07/27: Afebrile. Remains on ventilator. Will start tube feeding today. BM noted overnight. Replacing potassium phosphate, calcium chloride x1 now. And magnesium sulfate 07/28: Afebrile. Did not tolerate CPAP trial the same. Tolerating tube feeds today. Last bowel movement yesterday 09/26. Mild ileus on abdominal x-ray today. 07/29: Afebrile. Tolerated CPAP times 3 hours. He is intolerant to P. 2 bowel movements. Abdominal x-ray unchanged but no signs of obstructive or ileus. 07/30: Afebrile. Currently on CPAP trials. Positive BM. No change in neurological status. Increasing metoprolol to 5 mg IV every 6 hours. Subjective 07/31: Again on CPAP trials. Awake and alert on dexmedetomidine drip. Will put on metoprolol tartrate 25 mg every 8 hours and titrate. Positive BM. Recheck KUB in a.m. 08/01. 08/01: Currently tolerating CPAP, but requiring 15 pressure support. Patient had been intubated 3 times this admission, according to the caregiver and go from had to do patient's a total of several intubation in the last 2-3 months. I discussed with the patient was agreeable for tracheostomy, I also discussed with Stephanie patient's daughter and she has given consent for tracheostomy. Plan for tracheostomy tomorrow Objective Vital Signs / I&O: Vital Signs 07/31/18 12:00 07/31/18 15:18 07/31/18 16:00 Temperature 98.1 F 98.5 F Pulse Rate 109 H 115 H 123 H Respiratory Rate 17 12 29 H Blood Pressure 103/59 L 97/59 L Pulse Oximetry 97 98 07/31/18 16:44 07/31/18 19:41 07/31/18 19:44 Temperature Pulse Rate 119 H Respiratory Rate 16 22 23 Blood Pressure Pulse Oximetry 99 96 07/31/18 20:00 07/31/18 22:00 07/31/18 22:52 Temperature 98.2 F Pulse Rate 119 H 112 H 102 H Respiratory Rate 23 17 Blood Pressure 92/57 L Pulse Oximetry 100 08/01/18 00:00 08/01/18 00:32 08/01/18 02:00 Temperature 98.4 F Pulse Rate 104 H 98 H Respiratory Rate 20 21 Blood Pressure 100/56 L Pulse Oximetry 100 100 08/01/18 03:37 08/01/18 04:00 08/01/18 06:00 Temperature 98.0 F Pulse Rate 84 75 85 Respiratory Rate 16 17 Blood Pressure 92/55 L Pulse Oximetry 99 99 08/01/18 07:57 Temperature Pulse Rate 79 Respiratory Rate 12 Blood Pressure Pulse Oximetry 100 Intake & Output 07/31/18 08/01/18 08/01/18 18:59 06:59 18:59 Intake Total 885 / 885 1120 / 1120 Output Total 850 / 850 1100 / 1100 Balance 35 / 35 20 / 20 Weight 77.1 kg Intake: IV 200 / 200 460 / 460 Precedex Inj 200 MCG In NS Inj 100 / 100 200 / 200 48 ML @ 0.2 MCG/KG/HR 3.8 mls/ hr IV.CONT TITRATE PRN Rx#: [id number] Diprivan 1000 mg/100 ml Inj 1, 100 / 100 000 mg In 100 ml @ 5 MCG/KG/MIN 2.397 mls/hr IV.CONT TITRATE PRN Rx#:[id number] Potassium Phosphate Inj 30 MMOL 260 / 260 In NS Inj 250 ML @ 43.333 mls/ hr IV.SIG ONCE ONE Rx#:[id number] Oral 0 / 0 Tube Feeding 395 / 395 260 / 260 Tube Irrigant 90 / 90 Water Bolus Amount 200 / 200 400 / 400 Output: Urine Amount (Catheter) 850 / 850 1100 / 1100 Indwelling Urethral Catheter 850 / 850 1100 / 1100 Other: Date of Last Bowel Movement 07/31/18 07/31/18 # Bowel Movements 1 # Incontinent Bowel Movements 1 1 Result Diagrams: 07/31/18 04:57 07/31/18 04:57 Objective Remarks: GENERAL: 73-year-old elderly -Finnish male sitting in bed, currently orotracheally intubated SKIN: Warm and dry HEAD: Normocephalic. EYES: PERRL NECK: Supple, trachea midline. Airway widely patent, no obstructive noises CARDIOVASCULAR: Tachycardic, normal rhythm. S1, S2. No S4. No murmur RESPIRATORY: Diminished breath sounds in bases noted .B/L equal air entry, patient noted to be dyspneic, with accessory muscle use GASTROINTESTINAL: Abdomen less distended, non-tender, no guarding, bowel sounds present MUSCULOSKELETAL: Trace to bilateral upper/ lower extremity edema, warm and well- perfused NEURO: Alert awake on the vent Follows commands by moving upper and lower extremities withdraws to pain bilateral upper and lower extremities. Opens eyes to voice. I explained to him about tracheostomy and he completely understands and wants to proceed Assessment and Plan - Assessment and Plan Plan: NEURO/Psych: Altered mental status due to CO2 retention -Monitor neuro status, avoid long-acting sedatives -F/U acetylcholine receptor and autoantibodies was negative RESP: Hypercapnic respiratory failure Acute COPD exacerbation -Extubated 06/29. Reintubated 07/02 extubated again 07/07, reintubated 07/26 -Patient currently on PRVC, tolerates CPAP only with high pressure support -Albuterol/ipratropium aerosols every 4 hours scheduled and albuterol aerosols every 2 hours as needed -Wean methylprednisolone succinate from 40 mg to 20 mg daily -Inhaled budesonide -Chest x-ray in a.m. 08/01 -Plan for tracheostomy tomorrow. I explained to patient and girlfriend about tracheostomy and he completely understands and wants to proceed. Consent obtained from Stephanie the daughter CV: Essential hypertension - Monitor HR and BP keep MAP>65mmHg -Currently on IV metoprolol 5 mg IV every 6 hours. Toprol tartrate 25 mg by tube every 8 hours GI: Colonic ileus -KUB 07/13: Stable nonobstructive colonic distention. -Given Neostigmine 07/11. -s/p repeat decompressive colonoscopy 07/10 and 07/15 -Continue pantoprazole -On docusate sodium/senna 1 tablet twice daily, lactulose 30 cc 4 times daily, polyethylene glycol 17 g daily. Fleets enema daily. Naltrexone 12 mg subcu daily -NG tube. Tube feeding with Glucerna 1.5 goal 45 cc daily per rectum recent recommendation -Abdominal x-ray revealed nonspecific bowel gas pattern. FEN//renal: Hypernatremia Hypophosphatemia Hypopotassemia -Monitor renal function, I/O's, avoid nephrotoxins -Renal function stable -Renal- Dr. Figueroa has followed -Received 30 mmol K-Phos, 25 milliequivalents potassium chloride by tube. Recheck electrolytes in a.m. -Free water 200 cc every 6 hours ID: -Off abx monitor for signs of infections (Fever, WBC) WBC stable -BC and urine cx from 07/11- NG in 5 days -07/02 BC: NGTS, sputum cx 07/02:normal resp justyn -ID is following- Dr. Brown PRN HEME: Normocytic anemia Thrombocytopenia -Monitor CBC, coags, Hep PLT is positive. ANNMARIE negative. Hematology is following. Off argatroban drip -s/p 2U PRBCs on 07/16, Hgb 8.8, used for hemoglobin less than 7 -Stable thrombocytopenia-avoid medications that precipitate thrombocytopenia -Strict bedrest for now ENDO: -Sliding scale insulin medium scale aspart insulin every 4 hours. Continue insulin detemir 10 units twice daily PROPH: -Bilateral lower extremity SCDs. PPI -Doppler US LE negative DVT 07/02 LINES: -Utilize peripheral IVs Level 2 follow-up Plan for tracheostomy as above, consent obtained
[2018-08-01] MEDS: Ascorbic Acid 500 MG Tablet PO SCH (09:41)
[2018-08-01] MEDS: Multivitamin/Minerals Therapeutic Tablet PO SCH (09:41)
[2018-08-01] MEDS: Polyethylene Glycol 3350 17 GM Packet PO SCH (09:46)
[2018-08-01] MEDS: Calcium/Vitamin D 250/125 MG Tablet PO SCH (09:46)
[2018-08-01] MEDS: Sennosides Liq 8.8 MG/5 ML UDC NG/OG SCH ×2 (09:46→20:30)
[2018-08-01] MEDS: Bisacodyl 10 MG Supp RECTAL SCH (09:47)
[2018-08-01] MEDS: Insulin Detemir Inj 1,000 UNIT/10 ML Vial SQ SCH ×2 (09:53→20:40)
[2018-08-01] MEDS: Metoprolol Tartrate 25 MG Tablet PO SCH ×3 (09:55→17:49)
--- NOTE | 2018-08-01 10:18 | XR ---
EXAM DATE: 08/01/2018 10:14 AM EST AGE/SEX: 73 years / Male INDICATIONS: Abdominal distention, possible ileus. CLINICAL DATA: This is the patient's subsequent encounter. Patient reports that signs and symptoms h ave been present for 4 - 6 days and indicates a pain score of Nonresponsive. MEDICAL/SURGICAL HISTORY: Chronic obstructive pulmonary disease. Diabetes. Hypertension. None . COMPARISON: [facility] [place] [facility] [place], 07/30/2018. . FINDINGS: Nasogastric tube descends into the pylorus or potentially tip in the proximal duodenum. There is gas present in mildly distended loops of colon. No suspicious calcific densities appreciated. Degenerativ e changes in the spine and hips. CONCLUSION: NG tube in place. Mild gaseous distention of portions of colon. Electronically signed by: Jimy Lambert MD 08/01/2018 10:17 AM EST
[2018-08-01 11:19] LABS: Baso % (Auto) 0.1 % (0.0-2.0); Eos % (Auto) 0.1 % (0.0-4.0); Hematocrit 21.6 % (39.0-51.0); Hemoglobin 7.2 gm/dL (13.0-17.0); Lymph # (Auto) 1.1 th/mm3 (1.0-4.8); Lymph % (Auto) 13.6 % (9.0-44.0); Mean Corpuscular HGB Conc 33.2 % (32.0-36.0); Mean Corpuscular Hemoglobin 31.3 pg (27.0-34.0); Mean Corpuscular Volume 94.2 fL (80.0-100.0); Mean Platelet Volume 10.8 fL (7.0-11.0); Mono # (Auto) 0.4 th/mm3 (0.0-0.9); Mono % (Auto) 5.7 % (0.0-8.0); Neut # (Auto) 6.3 th/mm3 (1.8-7.7); Neut % (Auto) 80.5 % (16.0-70.0); Platelet Count 56 th/mm3 (150-450); Red Blood Count 2.29 mil/mm3 (4.50-5.90); Red Cell Distribution Width 16.1 % (11.6-17.2); White Blood Count 7.8 th/mm3 (4.0-11.0)
[2018-08-01 11:44] LABS: Alanine Aminotransferase 40 U/L (12-78); Albumin 2.3 g/dL (3.4-5.0); Alkaline Phosphatase 92 U/L (45-117); Anion Gap 4 meq/L (5-15); Aspartate Aminotransferase 35 U/L (15-37); Blood Urea Nitrogen 17 mg/dL (7-18); Calcium 7.3 mg/dL (8.5-10.1); Chloride 109 meq/L (98-107); Creatine Kinase 362 U/L (39-308); Glomerular Filtration Rate Greater Than 89 mL/min (>89); Glucose,Random 207 mg/dL (74-106); Lipase 61 U/L (73-393); Magnesium 1.7 mg/dL (1.5-2.5); Phosphorus 3.3 mg/dL (2.5-4.9); Potassium 3.7 meq/L (3.5-5.1); Sodium 147 meq/L (136-145); Total Protein 5.1 g/dL (6.4-8.2)
--- NOTE | 2018-08-01 12:02 | P.PNPL ---
Subjective Interval history: 73 YOAA male with COPD, 02 dependent Follows at [facility] Admitted with AMS, COPD exac Reintubated 07/26 due to worsening resp status Awake, follows commands On CPAP 14/01 Physical Exam Vital signs: Vital Signs 07/31/18 15:18 07/31/18 16:00 07/31/18 16:44 Temperature 98.5 F Pulse Rate 115 H 123 H Respiratory Rate 12 29 H 16 Blood Pressure 97/59 L Pulse Oximetry 98 99 07/31/18 19:41 07/31/18 19:44 07/31/18 20:00 Temperature 98.2 F Pulse Rate 119 H 119 H Respiratory Rate 22 23 23 Blood Pressure 92/57 L Pulse Oximetry 96 100 07/31/18 22:00 07/31/18 22:52 08/01/18 00:00 Temperature 98.4 F Pulse Rate 112 H 102 H 104 H Respiratory Rate 17 20 Blood Pressure 100/56 L Pulse Oximetry 100 08/01/18 00:32 08/01/18 02:00 08/01/18 03:37 Temperature Pulse Rate 98 H 84 Respiratory Rate 21 16 Blood Pressure Pulse Oximetry 100 99 08/01/18 04:00 08/01/18 06:00 08/01/18 07:57 Temperature 98.0 F Pulse Rate 75 85 79 Respiratory Rate 17 12 Blood Pressure 92/55 L Pulse Oximetry 99 100 08/01/18 11:49 Temperature Pulse Rate Respiratory Rate 25 H Blood Pressure Pulse Oximetry Intake & Output 07/31/18 08/01/18 08/01/18 18:59 06:59 18:59 Intake Total 885 / 885 1120 / 1120 Output Total 850 / 850 1100 / 1100 Balance 35 / 35 20 / 20 Weight 77.1 kg Intake: IV 200 / 200 460 / 460 Precedex Inj 200 MCG In NS Inj 100 / 100 200 / 200 48 ML @ 0.2 MCG/KG/HR 3.8 mls/ hr IV.CONT TITRATE PRN Rx#: [id number] Diprivan 1000 mg/100 ml Inj 1, 100 / 100 000 mg In 100 ml @ 5 MCG/KG/MIN 2.397 mls/hr IV.CONT TITRATE PRN Rx#:[id number] Potassium Phosphate Inj 30 MMOL 260 / 260 In NS Inj 250 ML @ 43.333 mls/ hr IV.SIG ONCE ONE Rx#:[id number] Oral 0 / 0 Tube Feeding 395 / 395 260 / 260 Tube Irrigant 90 / 90 Water Bolus Amount 200 / 200 400 / 400 Output: Urine Amount (Catheter) 850 / 850 1100 / 1100 Indwelling Urethral Catheter 850 / 850 1100 / 1100 Other: Date of Last Bowel Movement 07/31/18 07/31/18 # Bowel Movements 1 # Incontinent Bowel Movements 1 1 GENERAL: Obese A male, on vent SKIN: Warm and dry. HEAD: Normocephalic. EYES: No scleral icterus. No injection or drainage. NECK: Supple, trachea midline. No JVD or lymphadenopathy. CARDIOVASCULAR: Regular rate and rhythm without murmurs, gallops, or rubs. RESPIRATORY: Breath sounds equal bilaterally. No accessory muscle use. GASTROINTESTINAL: Abdomen soft, non-tender, nondistended. MUSCULOSKELETAL: No cyanosis, or edema. BACK: Nontender without obvious deformity. No CVA tenderness. 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 Abdominal distension, s/p decompression. Ileus PLAN: Cont vent support Sedation with Precedex Aerosol nebs Supplement 02 Monitor BS Daily CPAP trial DW Dr. Ahn, failed extubation multiple times plans for Trach in AM
[2018-08-01 12:04] LABS: Lymphocytes 7 % (9-44); Metamyelocytes 1 % (0-1); Monocytes 8 % (0-8); Myelocytes 2 % (0-0); Platelet Morphology Normal (Normal); Promyelocyte 1 % (0-0)
[2018-08-01 12:21] LABS: CKMB Percent 0.6 % (0.0-4.0)
[2018-08-01] MEDS: Methylnaltrexone Inj 12 MG/0.6 ML Vial SQ SCH (14:54)
[2018-08-02] MEDS: Pantoprazole Inj 40 MG Vial IV.PUSH SCH ×2 (01:23→14:30)
[2018-08-02] MEDS: Insulin NovoLOG Aspart Correctional Sugar Inj SQ SCH ×6 (03:56→23:46)
[2018-08-02 04:41] LABS: Hematocrit 22.2 % (39.0-51.0); Hemoglobin 7.2 gm/dL (13.0-17.0); Mean Corpuscular HGB Conc 32.6 % (32.0-36.0); Mean Corpuscular Volume 94.9 fL (80.0-100.0); Mean Platelet Volume 10.3 fL (7.0-11.0); Platelet Count 60 th/mm3 (150-450); Red Blood Count 2.34 mil/mm3 (4.50-5.90); Red Cell Distribution Width 16.1 % (11.6-17.2); White Blood Count 7.9 th/mm3 (4.0-11.0)
[2018-08-02 05:16] LABS: Alanine Aminotransferase 38 U/L (12-78); Albumin 2.2 g/dL (3.4-5.0); Alkaline Phosphatase 93 U/L (45-117); Anion Gap 8 meq/L (5-15); Aspartate Aminotransferase 36 U/L (15-37); Blood Urea Nitrogen 17 mg/dL (7-18); Calcium 7.3 mg/dL (8.5-10.1); Carbon Dioxide 32.5 meq/L (21.0-32.0); Chloride 108 meq/L (98-107); Glomerular Filtration Rate Greater Than 89 mL/min (>89); Glucose,Random 109 mg/dL (74-106); Potassium 3.5 meq/L (3.5-5.1); Sodium 148 meq/L (136-145); Total Protein 5.4 g/dL (6.4-8.2)
[2018-08-02] MEDS: Potassium Chloride 25 MEQ Effervescent Tablet PO PRN (05:59)
--- NOTE | 2018-08-02 06:04 | XR ---
EXAM DATE: 08/02/2018 5:29 AM EST AGE/SEX: 73 years / Male INDICATIONS: Shortness of breath, possible pulmonary disease. CLINICAL DATA: This is the patient's subsequent encounter. Patient reports that signs and symptoms h ave been present for 1 week and indicates a pain score of Nonresponsive. MEDICAL/SURGICAL HISTORY: Chronic obstructive pulmonary disease. Diabetes. Hypertension. None . COMPARISON: [facility] [place], CHEST 1V SINGLE AP, 08/01/2018. . FINDINGS: Portable AP view of the chest demonstrates a normal-sized cardiac silhouette with calcification of th e aorta. ETT and nasogastric tube remain present. EKG lines overlie the patient. There is mild airspa ce opacity at both lung bases, right greater than left. No pleural effusion or pneumothorax is identi fied. CONCLUSION: Stable chest x-ray with mild bibasilar opacity representing either atelectasis or consolidation. Electronically signed by: Jimy Mendoza MD 08/02/2018 6:03 AM EST
[2018-08-02] MEDS ORDERED: Midazolam 100 MG/100 ML Inj 100 MG/100 ML BAG IV.CONT PRN (06:47)
[2018-08-02] MEDS ORDERED: fentaNYL Citrate Inj 250 MCG/5 ML Ampul IV.PUSH ONE (06:48)
--- NOTE | 2018-08-02 06:57 | P.PNCC ---
Subjective Subjective Remarks/Hospital Course: Mr. Curry is a 73-year-old -[place] male with past medical history significant for COPD on 3 L nasal cannula, hypertension, hyperlipidemia and anxiety who was admitted to the hospitalist service on 06/19/2018 for worsening shortness of breath due to COPD exacerbation. He was treated with IV Solu- Medrol, IV antibiotics, breathing treatments gradually improved. Patient was also complaining about dyspepsia and underwent EGD by GI yesterday. Per report the EGD was normal but patient developed worsening shortness of breath and COPD exacerbation postprocedure, possibly from aspiration after sedated. Two ABGs done yesterday showed hypercapnic respiratory failure second 1 was on BiPAP and this was improved with pH 7.3 with PCO2 of 74. Patient remained on BiPAP overnight however was noticed to be lethargic today a.m., stat ABG showed pH of 7.21 PCO2 110 PO2 88 while on BiPAP. Patient was lethargic intermittently dozing off due to CO2 narcosis. Critical care medicine was consulted and I immediately evaluated the patient. Patient had obviously failed BiPAP I proceeded with endotracheal intubation placed on mechanical ventilation. Postintubation I have ordered single dose of Solu-Medrol 125 mg x1 continue Solu -Medrol 60 every 8, discontinue ceftriaxone and start cefepime 2 g IV every 8 hours continue azithromycin. Add budesonide inhaled, placed on scheduled DuoNeb every 4 hours and as needed. 06/27: Patient was intubated yesterday for severe hypercapnic respiratory failure. Currently remains intubated sedated and intubated remains diminished bilaterally. Heavily sedated for ventilator synchrony 06/28: Urine output significantly improved with fluid resuscitation. Creat down trending now 2 from 2.3, UO >3.3 L. Remains intubated sedated. Will initiate daily sedation vacation and CPAP trials 06/29: More awake today tolerating CPAP trials intermittently follows commands but gets agitated/frustrated fast. Urine output remains excellent creatinine 1.4. However sodium increasing 158 today. Night instrument man had changed fluid to D5 W for free water replacement. Due to hypoglycemia will change to quarter normal saline at 150 mL/h repeat CMP in the afternoon 06/30 Patient was extubated yesterday. Awake 07/01 Patient is lying in bed in NAD. T: 100.5 07/02: Intubated early this morning due to acute hypoxic respiratory failure. Central line placed due to hypotension. Plan for GI perform endoscopic decompression of this large bowel today. Arousable and does follow commands. Placed on argatroban 07/03: Currently, intubated with borderline blood pressure. Central line placed yesterday due to hypotension. Did not move bowels despite 1 L of fluid from colonoscopy yesterday and multiple laxatives provided. See orders for additional laxatives today. Might need neostigmine. 07/04 Patient remains intubated and sedated with Diprivan. Given Neostigmine last night. KUB this morning showed colonic ileus. Afebrile. On Argatroban. 07/05 No events overnight, sedated with Diprivan and intubated. Off Argatroban. 07/06 Patient remains intubated and sedated. Afebrile. 07/07 Patient remains intubated, s/p decompressive colonoscopy yesterday. Awake. 07/08 Patient s/p extubation yesterday. Awake and alert. 07/09 Patient is awake, alert lying in bed in NAD. Afebrile. 07/10 Patient is awake and alert, Afebrile. 07/11 Patient s/p decompressive colonoscopy yesterday. Afebrile. On Lasix drip.( UOP: 2800ml overnight). Cr: 3.0 from 2.25. 07/12 Patient is awake, alert given Neostigmine overnight. NGT to LIWS, off Lasix drip. 07/13: Resting comfortably in bed in no acute distress. 3 bowel movements documented. Remains n.p.o. Bladder pressures around 6. Potassium being replaced. Remains anemic around 7. 07/14 Patient is lying in bed in NAD. Afebrile. 07/15 No events overnight. Afebrile. 07/16: Resting in bed mild distress. Abdomen remains distended. Hemoglobin has dropped to 6.2 2 units of PRBC ordered. Patient underwent decompressive colonoscopy by Dr. Berrios for colonic ileus 07/17: No significant overnight events, patient states that he wants to get out of bed to a chair as he is having rectal discomfort. 07/18: Patient reportedly had a BM after digital rectal exam yesterday, states that he's been passing flatus "every now and then" overnight. No plans for OR or sigmoidoscopy as per colorectal service, OK to transfer out of [facility]. 07/19: Patient transferred to [facility] yesterday, complained of shortness of breath again today. An ABG showed a pCO2 of 79 so he was placed on bipap and transferred to [facility]. Most recent ABG shows pCO2 of 66, KUB still has abdominal distension but appears to be improved when compared to KUB from 07/15. Patient has reportedly been having bowel movements and passing flatus overnight. 07/20: No dramatic improvement in abdominal distention however abdomen soft. The patient was able to breathe comfortably overnight and remained alert. This morning the BiPAP mask was removed for half an hour and the patient did well without evidence of CO2 retention or somnolence. Reconsult note 07/23: The patient was a halicat from the [facility] floor. Patient was noted to be somnolent, had difficulty breathing. Stat ABG was performed revealing a PCO2 of 113. The patient was placed on BiPAP and transferred to [facility]. Currently remains on CPAP respiratory rate is 25 , 16/5 with an FiO2 35%. 07/24: Overnight the patient was placed on BiPAP 10/5 refusing BiPAP pulling out IVs. The patient became tachycardic refusing p.o. medications. The patient was placed on a Cardizem infusion currently at 5 mg an hour. Patient is more compliant at this time the patient's BiPAP settings were increased to 15 /5 35% stat ABGs were ordered the patient was noted to have a PCO2 of 89, continues with hypercapnic respiratory failure in the setting of severe COPD. Extensive discussion with family at bedside the patient's sister and daughter provided medical status update on recent transfer to ICU and current standing. Inform family that patient is at risk for for emergent intubation. Repeat ABG pending this evening. 07/25: Patient noted to have episodes of agitation continually removing BiPAP. I discussed with patient the criticality of his illness and possible intubation patient now agrees to wear BiPAP with exception of meals. Patient's diet was advanced to clear liquid noted improvement of chest x-ray patient is noted to have last bowel movement approximately 2 days ago we will continue to monitor and follow-up GI recommendations . Noted electrolyte repletion at this time. PCO2 now in the 60s. 07/26: Patient continues to be noncompliant with BiPAP mask. ABGs obtained noting a PO2 of 45.6. The patient was emergently intubated this afternoon. Chest x-ray and repeat ABG pending at this time. Noted patient's last bowel movement last night. 07/27: Afebrile. Remains on ventilator. Will start tube feeding today. BM noted overnight. Replacing potassium phosphate, calcium chloride x1 now. And magnesium sulfate 07/28: Afebrile. Did not tolerate CPAP trial the same. Tolerating tube feeds today. Last bowel movement yesterday 09/26. Mild ileus on abdominal x-ray today. 07/29: Afebrile. Tolerated CPAP times 3 hours. He is intolerant to P. 2 bowel movements. Abdominal x-ray unchanged but no signs of obstructive or ileus. 07/30: Afebrile. Currently on CPAP trials. Positive BM. No change in neurological status. Increasing metoprolol to 5 mg IV every 6 hours. Subjective 07/31: Again on CPAP trials. Awake and alert on dexmedetomidine drip. Will put on metoprolol tartrate 25 mg every 8 hours and titrate. Positive BM. Recheck KUB in a.m. 08/01. 08/01: Currently tolerating CPAP, but requiring 15 pressure support. Patient had been intubated 3 times this admission, according to the caregiver and go from had to do patient's a total of several intubation in the last 2-3 months. I discussed with the patient was agreeable for tracheostomy, I also discussed with Stephanie patient's daughter and she has given consent for tracheostomy. Plan for tracheostomy tomorrow 08/02: Patient currently on Precedex awake alert not tolerating CPAP trials. Plan for tracheostomy today. Transfuse 1 unit PRBC 1 pack units of platelets prior to trach Objective Vital Signs / I&O: Vital Signs 08/01/18 07:00 08/01/18 07:30 08/01/18 07:57 Temperature Pulse Rate 84 78 79 Respiratory Rate 16 16 12 Blood Pressure 101/55 L 97/52 L Pulse Oximetry 100 100 100 08/01/18 08:00 08/01/18 08:31 08/01/18 09:00 Temperature Pulse Rate 83 92 H 89 Respiratory Rate 10 L 25 H 13 Blood Pressure 100/57 L 109/71 91/54 L Pulse Oximetry 100 100 100 08/01/18 09:30 08/01/18 10:00 08/01/18 10:30 Temperature Pulse Rate 93 H 85 83 Respiratory Rate 16 12 9 L Blood Pressure 91/69 L 91/53 L 106/58 L Pulse Oximetry 97 97 98 08/01/18 11:00 08/01/18 11:30 08/01/18 11:49 Temperature Pulse Rate 78 81 Respiratory Rate 9 L 25 H 25 H Blood Pressure 105/59 L 89/52 L Pulse Oximetry 99 100 08/01/18 12:00 08/01/18 12:30 08/01/18 13:00 Temperature Pulse Rate 83 88 82 Respiratory Rate 27 H 20 25 H Blood Pressure 95/51 L 98/54 L 96/53 L Pulse Oximetry 100 98 98 08/01/18 13:30 08/01/18 14:00 08/01/18 14:30 Temperature Pulse Rate 81 80 79 Respiratory Rate 14 9 L 10 L Blood Pressure 90/52 L 98/54 L 98/55 L Pulse Oximetry 98 99 100 08/01/18 15:46 08/01/18 16:00 08/01/18 16:30 Temperature 98.9 F Pulse Rate 85 86 84 Respiratory Rate 25 H 26 H Blood Pressure 87/52 L Pulse Oximetry 100 99 08/01/18 18:00 08/01/18 20:00 08/01/18 20:11 Temperature 98.7 F Pulse Rate 94 H 96 H 91 H Respiratory Rate 32 H 16 Blood Pressure 90/53 L Pulse Oximetry 96 100 08/01/18 22:00 08/01/18 23:25 08/02/18 00:00 Temperature 100.7 F H Pulse Rate 88 83 94 H Respiratory Rate 16 17 Blood Pressure 91/54 L Pulse Oximetry 100 100 08/02/18 02:00 08/02/18 02:47 08/02/18 03:34 Temperature Pulse Rate 92 H 90 Respiratory Rate 16 16 Blood Pressure Pulse Oximetry 99 08/02/18 04:00 08/02/18 06:00 Temperature 100 F H Pulse Rate 80 75 Respiratory Rate 19 Blood Pressure 95/50 L Pulse Oximetry 100 Intake & Output 08/01/18 08/01/18 08/02/18 06:59 18:59 06:59 Intake Total 1120 / 1120 455 / 455 1007 / 1007 Output Total 1100 / 1100 650 / 650 600 / 600 Balance 20 / 20 -195 / -195 407 / 407 Weight 77.1 kg 77.9 kg Intake: IV 460 / 460 250 / 250 250 / 250 Precedex Inj 1,000 MCG In NS 250 / 250 250 / 250 Inj 240 ML @ 0.2 MCG/KG/HR 3.8 mls/hr IV.CONT TITRATE PRN Rx#: [id number] Precedex Inj 200 MCG In NS Inj 200 / 200 48 ML @ 0.2 MCG/KG/HR 3.8 mls/ hr IV.CONT TITRATE PRN Rx#: [id number] Potassium Phosphate Inj 30 MMOL 260 / 260 In NS Inj 250 ML @ 43.333 mls/ hr IV.SIG ONCE ONE Rx#:[id number] Oral 0 / 0 Tube Feeding 260 / 260 205 / 205 357 / 357 Water Bolus Amount 400 / 400 400 / 400 Output: Urine Amount (Catheter) 1100 / 1100 650 / 650 600 / 600 Indwelling Urethral Catheter 1100 / 1100 650 / 650 600 / 600 Other: Date of Last Bowel Movement 07/31/18 07/31/18 07/31/18 # Bowel Movements 1 0 # Incontinent Bowel Movements 1 Result Diagrams: 08/02/18 04:15 08/02/18 04:15 Objective Remarks: GENERAL: 73-year-old elderly -[place] male lying in bed, currently orotracheally intubated SKIN: Warm and dry HEAD: Normocephalic. EYES: PERRL NECK: Supple, trachea midline. Airway widely patent, no obstructive noises CARDIOVASCULAR: Tachycardic, normal rhythm. S1, S2. No S4. No murmur RESPIRATORY: Diminished breath sounds in bases noted .B/L equal air entry, patient. CPAP tolerated only with 20 pressure support GASTROINTESTINAL: Abdomen less distended, non-tender, no guarding, bowel sounds present MUSCULOSKELETAL: Trace to bilateral upper/ lower extremity edema, warm and well- perfused NEURO: Alert awake on the vent Follows commands by moving upper and lower extremities withdraws to pain bilateral upper and lower extremities. Opens eyes to voice. (I explained to him about tracheostomy on 08/01/18 off sedation and he completely understands and wants to proceed) Assessment and Plan - Assessment and Plan Plan: NEURO/Psych: Altered mental status due to CO2 retention -Start Versed infusion to sedate for tracheostomy -Continue Precedex -F/U acetylcholine receptor and autoantibodies was negative RESP: Hypercapnic respiratory failure Acute COPD exacerbation -Extubated 06/29. Reintubated 07/02 extubated again 07/07, reintubated 07/26 -Patient currently on PRVC, tolerates CPAP only with high pressure support. Tracheostomy today -Albuterol/ipratropium aerosols every 4 hours scheduled and albuterol aerosols every 2 hours as needed -Continue steroids -Inhaled budesonide -Chest x-ray in a.m. - -on 08/01/2018 I explained to patient and girlfriend about tracheostomy and he completely understands and wants to proceed. Consent obtained from Stephanie the daughter CV: Essential hypertension - Monitor HR and BP keep MAP>65mmHg -Currently on IV metoprolol 5 mg IV every 6 hours. Toprol tartrate 25 mg by tube every 8 hours GI: Colonic ileus -KUB 07/13: Stable nonobstructive colonic distention. -Given Neostigmine 07/11. -s/p repeat decompressive colonoscopy 07/10 and 07/15 -Continue pantoprazole -On docusate sodium/senna 1 tablet twice daily, lactulose 30 cc 4 times daily, polyethylene glycol 17 g daily. Fleets enema daily. Naltrexone 12 mg subcu daily -NG tube. Tube feeding with Glucerna 1.5 goal 45 cc daily per rectum recent recommendation -Abdominal x-ray revealed nonspecific bowel gas pattern. FEN//renal: Hypernatremia Hypophosphatemia Hypopotassemia -Monitor renal function, I/O's, avoid nephrotoxins -Renal function stable -Renal- Dr. Figueroa has followed -Received 30 mmol K-Phos, 25 milliequivalents potassium chloride by tube. Recheck electrolytes in a.m. -Free water 200 cc every 6 hours ID: -Off abx monitor for signs of infections (Fever, WBC) WBC stable -BC and urine cx from 07/11- NG -07/02 BC: NGTS, sputum cx 07/02:normal resp justyn -ID is following- Dr. Brown PRN -Replace Moreno today 08/02/2018 and recent cultures. Urine culture from 2017 growing Koki HEME: Normocytic anemia Thrombocytopenia -Monitor CBC, coags, Hep PLT is positive. ANNMARIE negative. Hematology is following. Off argatroban drip -s/p 2U PRBCs on 07/16, Hgb 8.8, used for hemoglobin less than 7 -Give 1 unit of PRBC and 1 pack units of platelets today in anticipation of tracheostomy -Stable thrombocytopenia-avoid medications that precipitate thrombocytopenia ENDO: -Sliding scale insulin medium scale aspart insulin every 4 hours. Continue insulin detemir 10 units twice daily PROPH: -Bilateral lower extremity SCDs. PPI -Doppler US LE negative DVT 07/02 LINES: -Utilize peripheral IVs Level 2 follow-up Plan for tracheostomy as above, consent obtained Code Status: Full
[2018-08-02] MEDS ORDERED: Sodium Chlor 0.9% Inj 250 ML IV.SIG SCH (07:00)
[2018-08-02] MEDS: Artificial Tears Opth Drops 15 ML Bottle EACH EYE SCH ×3 (07:36→23:47)
[2018-08-02] MEDS: Calcium/Vitamin D 250/125 MG Tablet PO SCH (08:14)
[2018-08-02] MEDS: Multivitamin/Minerals Therapeutic Tablet PO SCH (08:14)
[2018-08-02] MEDS: Ascorbic Acid 500 MG Tablet PO SCH (08:14)
[2018-08-02] MEDS: Polyethylene Glycol 3350 17 GM Packet PO SCH (08:16)
[2018-08-02] MEDS: Bisacodyl 10 MG Supp RECTAL SCH (08:16)
[2018-08-02] MEDS: Sennosides Liq 8.8 MG/5 ML UDC NG/OG SCH ×2 (08:16→20:38)
[2018-08-02] MEDS: Metoprolol Tartrate 25 MG Tablet PO SCH ×3 (08:16→17:35)
[2018-08-02] MEDS: Docusate Sodium Liq 100 MG/10 ML UDC NG/OG SCH ×2 (08:16→20:38)
[2018-08-02] MEDS: Insulin Detemir Inj 1,000 UNIT/10 ML Vial SQ SCH ×3 (08:16→20:37)
[2018-08-02] MEDS: Methylnaltrexone Inj 12 MG/0.6 ML Vial SQ SCH (08:17)
--- NOTE | 2018-08-02 10:55 | P.PCN ---
Date of procedure: 08/02/18 Pre-op diagnosis: Hypercapneic resp failure, Severe COPD Post-op diagnosis: same Procedure: PROCEDURE Percutaneous greta rhino dilational tracheostomy SURGEONS: Dr. Ahn INDICATIONS COPD hypercapaneic resp failure, inability to wean without tracheostomy PROCEDURE Patient's neck was prepped with the chlorhexidine contained within the Blue Rhino kit. Nicho Nicholas MD performed bronchoscopy. Trachea was palpated approximately two fingerbreadth above the sternal notch, anesthetized here with lidocaine with epinephrine solution supplied with the kit. A 1 cm vertical skin incision was made. The Angiocath was then inserted through the subcutaneous tissue into the trachea, and needle removed. Guide wire was inserted, and the Angiocath is removed. The dilator was then used and followed by Blue Rhino dilator up to the black donte to dilate the tracheostomy. A size 8 cuffed tracheostomy tube was then placed without difficulty. Dr. Nicholas performed a bronchoscopy again and confirmed placement. Tracheostomy tube was sutured in place. No significant bleeding and no immediate procedural complications. Postprocedure chest x-ray ordered. There was no significant bleeding Anesthesia: JOANA, local Surgeon: Corey Ahn Estimated blood loss (mL): 1 Pathology: none sent Condition: critical Disposition: ICU
[2018-08-02] MEDS: Metoprolol Inj 5 MG/5 ML Vial IV.PUSH SCH (11:11)
--- NOTE | 2018-08-02 11:30 | P.PNPL ---
Subjective Interval history: Patient s/p trach this morning. T;100.7 at midnight. Physical Exam Vital signs: Vital Signs 08/01/18 11:30 08/01/18 11:49 08/01/18 12:00 Temperature Pulse Rate 81 83 Respiratory Rate 25 H 25 H 27 H Blood Pressure 89/52 L 95/51 L Pulse Oximetry 100 100 08/01/18 12:30 08/01/18 13:00 08/01/18 13:30 Temperature Pulse Rate 88 82 81 Respiratory Rate 20 25 H 14 Blood Pressure 98/54 L 96/53 L 90/52 L Pulse Oximetry 98 98 98 08/01/18 14:00 08/01/18 14:30 08/01/18 15:46 Temperature Pulse Rate 80 79 85 Respiratory Rate 9 L 10 L 25 H Blood Pressure 98/54 L 98/55 L Pulse Oximetry 99 100 100 08/01/18 16:00 08/01/18 16:30 08/01/18 18:00 Temperature 98.9 F Pulse Rate 86 84 94 H Respiratory Rate 26 H Blood Pressure 87/52 L Pulse Oximetry 99 08/01/18 20:00 08/01/18 20:11 08/01/18 22:00 Temperature 98.7 F Pulse Rate 96 H 91 H 88 Respiratory Rate 32 H 16 Blood Pressure 90/53 L Pulse Oximetry 96 100 08/01/18 23:25 08/02/18 00:00 08/02/18 02:00 Temperature 100.7 F H Pulse Rate 83 94 H 92 H Respiratory Rate 16 17 Blood Pressure 91/54 L Pulse Oximetry 100 100 08/02/18 02:47 08/02/18 03:34 08/02/18 04:00 Temperature 100 F H Pulse Rate 90 80 Respiratory Rate 16 16 19 Blood Pressure 95/50 L Pulse Oximetry 99 100 08/02/18 06:00 08/02/18 07:43 08/02/18 07:51 Temperature Pulse Rate 75 97 H Respiratory Rate 16 16 Blood Pressure Pulse Oximetry 9 L 08/02/18 08:00 08/02/18 10:00 08/02/18 10:46 Temperature Pulse Rate 75 75 Respiratory Rate Blood Pressure Pulse Oximetry 100 Intake & Output 08/01/18 08/02/18 08/02/18 18:59 06:59 18:59 Intake Total 455 / 455 1007 / 1007 100 / 100 Output Total 650 / 650 600 / 600 Balance -195 / -195 407 / 407 100 / 100 Weight 77.9 kg Intake: IV 250 / 250 250 / 250 100 / 100 Precedex Inj 1,000 MCG In NS 250 / 250 250 / 250 Inj 240 ML @ 0.2 MCG/KG/HR 3.8 mls/hr IV.CONT TITRATE PRN Rx#: [id number] NS Inj 250 ML @ 15 mls/hr IV. 100 / 100 SIG ONCE WOLF Rx#:[id number] Tube Feeding 205 / 205 357 / 357 Water Bolus Amount 400 / 400 Output: Urine Amount (Catheter) 650 / 650 600 / 600 Indwelling Urethral Catheter 650 / 650 600 / 600 Other: Date of Last Bowel Movement 07/31/18 07/31/18 07/31/18 # Bowel Movements 0 - Constitutional no acute distress, obese - Routine HEENT Exam Head: Present: normocephalic, atraumatic Eye: Present: EOMI, PERRL, normal accommodation, conjunctivae pink ENT: Present: mucous membranes moist - Routine Neck Exam Present: supple, full ROM, trachea midline - Routine Respiratory Exam Present: patient mechanically ventilated, CTA bilaterally - Routine Cardiovascular Exam Present: RRR, S1, S2, murmur - Routine Abdominal Exam Present: soft, normoactive bowel sounds, distended - Routine Extremities Exam Present: pulses intact - Routine Skin Exam Present: intact - Routine Neurological Exam Present: altered mental status - Urinary Catheter Management Indwelling Urethral Catheter Cath placed during this visit: yes, but has since been removed by the nurse Reason for continuing: Acute urinary retention Insertion date: 07/14/18 Insertion time: 21:55 Removal date: 08/02/18 Removal time: 07:59 Straight Cath placed during this visit: no Condom Cath placed during this visit: no Indwelling Temp Sensing Catheter Cath placed during this visit: yes Reason for continuing: Acute urinary retention Insertion date: 08/02/18 Insertion time: 08:00 Assessment and Plan - Plan 1. VDRF s/p trach 08/02 2. COPD, on 2-3 liters home oxygen. 3. Hypertension. 4. Colonic ileus 5. Anemia, thrombocytopenia 6. Obesity 7. Hypernatremia Plan Continue with vent support ( on PRVC mode) keep sats >92% Bronchodilators ( DuoNeb, Pulmicort) Pulm toilet, trach care ICU vent bundle. off abx, Monitor for signs of infection, Nutrition support- NPO for trach today GI and DVT prophylaxis. Continue treatment plan
--- NOTE | 2018-08-02 15:03 | P.PCN ---
Date of procedure: 08/02/18 Procedure: Diagnosis: Hypoxemic respiratory failure Procedure: 1. Orotracheal intubation 2. Therapeutic fiberoptic bronchoscopy Narrative: Timeout performed and patient properly identified. The bronchoscope was delivered and a side port of the ventilatory circuit while the patient was sedated and on mechanical ventilation. The usual ICU monitoring devices were in place. Manipulation of the bronchoscope through the indwelling tube was difficult and when the view was repeatedly loss the decision was made to reintubate with a larger endotracheal tube. Patient had been previously sedated and using a rigid laryngoscope the indwelling tube was removed and a new 8 mm cuffed endotracheal tube was inserted through the vocal cords. Position was confirmed with CO2 detection and bilateral breath sounds. Bronchoscope was delivered down the side port again through the endotracheal tube and the immediate tracheobronchial tree was inspected. Mucosa was normal and noninflamed. Minimal sputum. The left and right branching patterns were normal without aberrancy. No significant sputum in any bronchial openings. The bronchoscope and tube were then withdrawn simultaneously to the level of the cricoid cartilage. This position was used to provide visualization by the surgical team who would perform a percutaneous tracheostomy, dictated on a separate note. Following insertion of the new tracheostomy tube the bronchoscope was delivered down the lumen and the tracheostomy tube was found to be in good position in the main trachea well above the christy. There was no bleeding and minimal amount of sputum was suctioned free. The inner cannula was then placed in the tracheostomy tube and ventilation resumed. Oxygen saturation was maintained greater than 95% throughout this procedure. Once again confirmation of appropriateness of gas exchange was confirmed with CO2 detection and bilateral breath sounds.
[2018-08-02] MEDS: Dexmedetomidine Inj 1,000 MCG in Sodium Chlor 0.9% Inj 240 ML IV.CONT PRN (17:30)
[2018-08-03] MEDS: Pantoprazole Inj 40 MG Vial IV.PUSH SCH ×2 (02:59→14:44)
[2018-08-03] MEDS: Insulin NovoLOG Aspart Correctional Sugar Inj SQ SCH ×6 (03:57→23:55)
--- NOTE | 2018-08-03 04:24 | XR ---
EXAM DATE: 08/03/2018 4:08 AM EST AGE/SEX: 73 years / Male INDICATIONS: Shortness of breath, possible pulmonary disease. CLINICAL DATA: This is the patient's subsequent encounter. Patient reports that signs and symptoms h ave been present for 1 week and indicates a pain score of Nonresponsive. MEDICAL/SURGICAL HISTORY: Chronic obstructive pulmonary disease. Hypertension. Diabetes. None . [place] [facility] [place]. . FINDINGS: Portable AP view of the chest demonstrates a normal-sized cardiac silhouette with calcification of th e aorta. Tracheostomy and nasogastric tube are present. There is bibasilar airspace opacity, right gr eater than left. There is questionable hazy pleural-based opacity on the right. No pneumothorax is vi sualized. Bones demonstrate no acute finding. CONCLUSION: Stable bibasilar airspace opacity representing either atelectasis or airspace consolidation. There is also a questionable hazy opacity at the right base which could indicate a small pleural effusion. Electronically signed by: Jimy Mendoza MD 08/03/2018 4:23 AM EST
[2018-08-03 05:43] LABS: Alanine Aminotransferase 44 U/L (12-78); Albumin 2.3 g/dL (3.4-5.0); Alkaline Phosphatase 127 U/L (45-117); Anion Gap 6 meq/L (5-15); Aspartate Aminotransferase 39 U/L (15-37); Blood Urea Nitrogen 18 mg/dL (7-18); Calcium 7.3 mg/dL (8.5-10.1); Carbon Dioxide 31.8 meq/L (21.0-32.0); Chloride 107 meq/L (98-107); Glomerular Filtration Rate Greater Than 89 mL/min (>89); Glucose,Random 159 mg/dL (74-106); Magnesium 1.6 mg/dL (1.5-2.5); Potassium 4.2 meq/L (3.5-5.1); Total Protein 5.7 g/dL (6.4-8.2)
[2018-08-03 05:47] LABS: Sodium 145 meq/L (136-145)
[2018-08-03] MEDS: Ascorbic Acid 500 MG Tablet PO SCH (08:19)
[2018-08-03] MEDS: Docusate Sodium Liq 100 MG/10 ML UDC NG/OG SCH ×2 (08:19→20:59)
[2018-08-03] MEDS: Artificial Tears Opth Drops 15 ML Bottle EACH EYE SCH ×3 (08:20→23:55)
[2018-08-03] MEDS: Dexmedetomidine Inj 1,000 MCG in Sodium Chlor 0.9% Inj 240 ML IV.CONT PRN ×2 (08:20→12:54)
[2018-08-03] MEDS: Bisacodyl 10 MG Supp RECTAL SCH (08:22)
[2018-08-03] MEDS: Metoprolol Tartrate 25 MG Tablet PO SCH ×3 (08:23→17:03)
[2018-08-03] MEDS: Acetaminophen 325 MG Tablet PO PRN ×2 (08:23→21:02)
[2018-08-03] MEDS: Polyethylene Glycol 3350 17 GM Packet PO SCH (08:23)
[2018-08-03] MEDS: Calcium/Vitamin D 250/125 MG Tablet PO SCH (08:24)
[2018-08-03] MEDS: Methylnaltrexone Inj 12 MG/0.6 ML Vial SQ SCH (08:24)
[2018-08-03] MEDS: Multivitamin/Minerals Therapeutic Tablet PO SCH (08:25)
[2018-08-03] MEDS: Sennosides Liq 8.8 MG/5 ML UDC NG/OG SCH ×2 (08:26→20:59)
[2018-08-03] MEDS: Insulin Detemir Inj 1,000 UNIT/10 ML Vial SQ SCH ×2 (09:15→21:00)
[2018-08-03 10:20] LABS: Hematocrit 23.6 % (39.0-51.0); Hemoglobin 8.2 gm/dL (13.0-17.0); Mean Corpuscular HGB Conc 34.7 % (32.0-36.0); Mean Corpuscular Hemoglobin 31.4 pg (27.0-34.0); Mean Corpuscular Volume 90.5 fL (80.0-100.0); Mean Platelet Volume 9.3 fL (7.0-11.0); Platelet Count 103 th/mm3 (150-450); Red Cell Distribution Width 16.5 % (11.6-17.2); White Blood Count 8.9 th/mm3 (4.0-11.0)
--- NOTE | 2018-08-03 11:15 | P.PNPL ---
Subjective Interval history: Patient s/p trach yesterday. On CPAP PS 10, PEEP:5 and FIo2: 35%. Awake and alert. On Precedex 1mc/kg/hr. Afebrile. Physical Exam Vital signs: Vital Signs 08/02/18 11:43 08/02/18 12:00 08/02/18 12:06 Temperature 98.1 F 98.6 F Pulse Rate 117 H 112 H 109 H Respiratory Rate 17 19 16 Blood Pressure 115/60 105/54 L Pulse Oximetry 100 100 08/02/18 12:20 08/02/18 16:00 08/02/18 16:15 Temperature 98.1 F 98.6 F Pulse Rate 109 H 90 84 Respiratory Rate 16 16 16 Blood Pressure 105/55 L 106/56 L 113/64 Pulse Oximetry 100 100 08/02/18 16:30 08/02/18 16:45 08/02/18 17:00 Temperature Pulse Rate 80 83 81 Respiratory Rate 16 16 16 Blood Pressure 119/66 113/60 113/60 Pulse Oximetry 100 100 100 08/02/18 17:15 08/02/18 17:20 08/02/18 17:22 Temperature Pulse Rate 78 82 Respiratory Rate 16 16 16 Blood Pressure 123/69 Pulse Oximetry 100 100 08/02/18 17:30 08/02/18 17:45 08/02/18 18:00 Temperature Pulse Rate 86 88 89 Respiratory Rate 16 16 16 Blood Pressure 116/62 106/57 L 115/59 L Pulse Oximetry 100 100 100 08/02/18 18:15 08/02/18 18:30 08/02/18 18:45 Temperature Pulse Rate 91 H 86 85 Respiratory Rate 16 16 16 Blood Pressure 110/55 L 127/61 129/62 Pulse Oximetry 100 100 100 08/02/18 19:00 08/02/18 19:15 08/02/18 19:30 Temperature Pulse Rate 82 83 82 Respiratory Rate 16 16 16 Blood Pressure 117/61 124/59 L 127/61 Pulse Oximetry 100 100 100 08/02/18 19:45 08/02/18 19:55 08/02/18 20:00 Temperature 98.6 F Pulse Rate 80 81 Respiratory Rate 16 19 16 Blood Pressure 132/62 128/60 Pulse Oximetry 100 100 100 08/02/18 20:15 08/02/18 20:30 08/02/18 20:45 Temperature Pulse Rate 83 85 88 Respiratory Rate 16 16 16 Blood Pressure 133/65 114/58 L 111/57 L Pulse Oximetry 100 100 100 08/02/18 21:00 08/02/18 21:15 08/02/18 21:30 Temperature Pulse Rate 92 H 87 86 Respiratory Rate 16 16 16 Blood Pressure 119/61 138/65 128/63 Pulse Oximetry 100 100 100 08/02/18 21:45 08/02/18 22:00 08/02/18 22:15 Temperature Pulse Rate 86 89 90 Respiratory Rate 16 16 16 Blood Pressure 128/69 110/59 L 112/57 L Pulse Oximetry 100 100 100 08/02/18 22:30 08/02/18 22:45 08/02/18 23:00 Temperature Pulse Rate 90 91 H 87 Respiratory Rate 16 16 18 Blood Pressure 116/57 L 121/63 120/63 Pulse Oximetry 100 100 100 08/02/18 23:15 08/02/18 23:24 08/02/18 23:30 Temperature Pulse Rate 91 H 90 86 Respiratory Rate 17 16 16 Blood Pressure 115/59 L 122/62 Pulse Oximetry 100 100 08/02/18 23:45 08/03/18 00:00 08/03/18 00:15 Temperature 98.9 F Pulse Rate 92 H 92 H 93 H Respiratory Rate 19 16 17 Blood Pressure 115/63 122/66 117/62 Pulse Oximetry 100 100 100 08/03/18 00:30 08/03/18 00:45 08/03/18 01:00 Temperature Pulse Rate 97 H 93 H 96 H Respiratory Rate 18 23 17 Blood Pressure 121/68 117/62 125/61 Pulse Oximetry 100 100 100 08/03/18 01:15 08/03/18 01:22 08/03/18 01:30 Temperature Pulse Rate 98 H 97 H Respiratory Rate 18 19 21 Blood Pressure 124/65 122/66 Pulse Oximetry 100 100 100 08/03/18 01:45 08/03/18 02:00 08/03/18 02:15 Temperature Pulse Rate 96 H 96 H 97 H Respiratory Rate 18 19 25 H Blood Pressure 124/71 125/72 116/63 Pulse Oximetry 100 100 97 08/03/18 02:30 08/03/18 02:45 08/03/18 03:00 Temperature Pulse Rate 97 H 101 H 100 H Respiratory Rate 28 H 33 H 24 Blood Pressure 121/60 107/58 L 109/61 Pulse Oximetry 96 100 100 08/03/18 03:15 08/03/18 03:21 08/03/18 03:30 Temperature Pulse Rate 103 H 104 H 100 H Respiratory Rate 28 H 21 29 H Blood Pressure 96/67 L 107/65 Pulse Oximetry 100 100 08/03/18 03:45 08/03/18 04:00 08/03/18 04:15 Temperature 98.9 F Pulse Rate 107 H 111 H 110 H Respiratory Rate 24 26 H 17 Blood Pressure 107/69 120/67 126/74 Pulse Oximetry 99 100 100 08/03/18 04:30 08/03/18 06:00 08/03/18 07:00 Temperature Pulse Rate 111 H 108 H 111 H Respiratory Rate 21 27 H Blood Pressure 123/81 Pulse Oximetry 100 100 08/03/18 10:21 Temperature Pulse Rate Respiratory Rate 19 Blood Pressure Pulse Oximetry 98 Intake & Output 08/02/18 08/03/18 08/03/18 18:59 06:59 18:59 Intake Total 1600 / 1600 813 / 813 250 / 250 Output Total 1050 / 1050 Balance 1600 / 1600 -237 / -237 250 / 250 Weight 78.5 kg Intake: IV 350 / 350 250 / 250 Precedex Inj 1,000 MCG In NS 250 / 250 250 / 250 Inj 240 ML @ 0.2 MCG/KG/HR 3.8 mls/hr IV.CONT TITRATE PRN Rx#: [id number] NS Inj 250 ML @ 15 mls/hr IV. 100 / 100 SIG ONCE WOLF Rx#:[id number] Oral 0 / 0 Tube Feeding 224 / 224 413 / 413 Water Bolus Amount 400 / 400 400 / 400 Intake (Blood Product) Amt 626 / 626 Prepooled Plts Leukoreduced 5d 226 / 226 Unit [id number] Rbc As-3 Leukoreduced Unit 400 / 400 [id number] Output: Stool 50 / 50 Urine Amount (Catheter) 1000 / 1000 Indwelling Temp Sensing 1000 / 1000 Catheter Other: Date of Last Bowel Movement 07/31/18 08/03/18 # Bowel Movements 0 1 - Constitutional no acute distress - Routine HEENT Exam Head: Present: normocephalic, atraumatic Eye: Present: EOMI, PERRL, normal accommodation, conjunctivae pink ENT: Present: mucous membranes moist - Routine Neck Exam Present: supple, full ROM, trachea midline - Routine Respiratory Exam Present: patient mechanically ventilated, CTA bilaterally - Routine Cardiovascular Exam Present: S1, S2, tachycardia - Routine Abdominal Exam Present: soft, normoactive bowel sounds, distended - Routine Skin Exam Present: intact, dry - Routine Neurological Exam Present: alert - Urinary Catheter Management Indwelling Urethral Catheter Cath placed during this visit: yes, but has since been removed by the nurse Reason for continuing: Acute urinary retention Insertion date: 07/14/18 Insertion time: 21:55 Removal date: 08/02/18 Removal time: 07:59 Straight Cath placed during this visit: no Condom Cath placed during this visit: no Indwelling Temp Sensing Catheter Cath placed during this visit: yes Reason for continuing: Acute urinary retention Insertion date: 08/02/18 Insertion time: 08:00 Assessment and Plan - Plan 1. VDRF 2. COPD, on 2-3 liters home oxygen. 3. Hypertension. 4. Colonic ileus 5. Anemia, thrombocytopenia 6. Obesity 7. Hypernatremia Plan Continue with vent support keep sats >92% Bronchodilators ( DuoNeb, Pulmicort) Pulm toilet, trach care ICU vent bundle. SBT daily as alonso s/p trach on 08/02 On Precedex drip to facilitate with weaning trials off abx, Monitor for signs of infection, Nutrition support- on Glucerna 1.5 @45ml/hr GI and DVT prophylaxis. Continue treatment plan
--- NOTE | 2018-08-03 11:39 | P.PNCC ---
Subjective Subjective Remarks/Hospital Course: Mr. Curry is a 73-year-old -[place] male with past medical history significant for COPD on 3 L nasal cannula, hypertension, hyperlipidemia and anxiety who was admitted to the hospitalist service on 06/19/2018 for worsening shortness of breath due to COPD exacerbation. He was treated with IV Solu- Medrol, IV antibiotics, breathing treatments gradually improved. Patient was also complaining about dyspepsia and underwent EGD by GI yesterday. Per report the EGD was normal but patient developed worsening shortness of breath and COPD exacerbation postprocedure, possibly from aspiration after sedated. Two ABGs done yesterday showed hypercapnic respiratory failure second 1 was on BiPAP and this was improved with pH 7.3 with PCO2 of 74. Patient remained on BiPAP overnight however was noticed to be lethargic today a.m., stat ABG showed pH of 7.21 PCO2 110 PO2 88 while on BiPAP. Patient was lethargic intermittently dozing off due to CO2 narcosis. Critical care medicine was consulted and I immediately evaluated the patient. Patient had obviously failed BiPAP I proceeded with endotracheal intubation placed on mechanical ventilation. Postintubation I have ordered single dose of Solu-Medrol 125 mg x1 continue Solu -Medrol 60 every 8, discontinue ceftriaxone and start cefepime 2 g IV every 8 hours continue azithromycin. Add budesonide inhaled, placed on scheduled DuoNeb every 4 hours and as needed. 06/27: Patient was intubated yesterday for severe hypercapnic respiratory failure. Currently remains intubated sedated and intubated remains diminished bilaterally. Heavily sedated for ventilator synchrony 06/28: Urine output significantly improved with fluid resuscitation. Creat down trending now 2 from 2.3, UO >3.3 L. Remains intubated sedated. Will initiate daily sedation vacation and CPAP trials 06/29: More awake today tolerating CPAP trials intermittently follows commands but gets agitated/frustrated fast. Urine output remains excellent creatinine 1.4. However sodium increasing 158 today. Night latin teacher had changed fluid to D5 W for free water replacement. Due to hypoglycemia will change to quarter normal saline at 150 mL/h repeat CMP in the afternoon 06/30 Patient was extubated yesterday. Awake 07/01 Patient is lying in bed in NAD. T: 100.5 07/02: Intubated early this morning due to acute hypoxic respiratory failure. Central line placed due to hypotension. Plan for GI perform endoscopic decompression of this large bowel today. Arousable and does follow commands. Placed on argatroban 07/03: Currently, intubated with borderline blood pressure. Central line placed yesterday due to hypotension. Did not move bowels despite 1 L of fluid from colonoscopy yesterday and multiple laxatives provided. See orders for additional laxatives today. Might need neostigmine. 07/04 Patient remains intubated and sedated with Diprivan. Given Neostigmine last night. KUB this morning showed colonic ileus. Afebrile. On Argatroban. 07/05 No events overnight, sedated with Diprivan and intubated. Off Argatroban. 07/06 Patient remains intubated and sedated. Afebrile. 07/07 Patient remains intubated, s/p decompressive colonoscopy yesterday. Awake. 07/08 Patient s/p extubation yesterday. Awake and alert. 07/09 Patient is awake, alert lying in bed in NAD. Afebrile. 07/10 Patient is awake and alert, Afebrile. 07/11 Patient s/p decompressive colonoscopy yesterday. Afebrile. On Lasix drip.( UOP: 2800ml overnight). Cr: 3.0 from 2.25. 07/12 Patient is awake, alert given Neostigmine overnight. NGT to LIWS, off Lasix drip. 07/13: Resting comfortably in bed in no acute distress. 3 bowel movements documented. Remains n.p.o. Bladder pressures around 6. Potassium being replaced. Remains anemic around 7. 07/14 Patient is lying in bed in NAD. Afebrile. 07/15 No events overnight. Afebrile. 07/16: Resting in bed mild distress. Abdomen remains distended. Hemoglobin has dropped to 6.2 2 units of PRBC ordered. Patient underwent decompressive colonoscopy by Dr. Berrios for colonic ileus 07/17: No significant overnight events, patient states that he wants to get out of bed to a chair as he is having rectal discomfort. 07/18: Patient reportedly had a BM after digital rectal exam yesterday, states that he's been passing flatus "every now and then" overnight. No plans for OR or sigmoidoscopy as per colorectal service, OK to transfer out of [facility]. 07/19: Patient transferred to [facility] yesterday, complained of shortness of breath again today. An ABG showed a pCO2 of 79 so he was placed on bipap and transferred to [facility]. Most recent ABG shows pCO2 of 66, KUB still has abdominal distension but appears to be improved when compared to KUB from 07/15. Patient has reportedly been having bowel movements and passing flatus overnight. 07/20: No dramatic improvement in abdominal distention however abdomen soft. The patient was able to breathe comfortably overnight and remained alert. This morning the BiPAP mask was removed for half an hour and the patient did well without evidence of CO2 retention or somnolence. Reconsult note 07/23: The patient was a halicat from the [facility] floor. Patient was noted to be somnolent, had difficulty breathing. Stat ABG was performed revealing a PCO2 of 113. The patient was placed on BiPAP and transferred to [facility]. Currently remains on CPAP respiratory rate is 25 , 16/5 with an FiO2 35%. 07/24: Overnight the patient was placed on BiPAP 10/5 refusing BiPAP pulling out IVs. The patient became tachycardic refusing p.o. medications. The patient was placed on a Cardizem infusion currently at 5 mg an hour. Patient is more compliant at this time the patient's BiPAP settings were increased to 15 /5 35% stat ABGs were ordered the patient was noted to have a PCO2 of 89, continues with hypercapnic respiratory failure in the setting of severe COPD. Extensive discussion with family at bedside the patient's sister and daughter provided medical status update on recent transfer to ICU and current standing. Inform family that patient is at risk for for emergent intubation. Repeat ABG pending this evening. 07/25: Patient noted to have episodes of agitation continually removing BiPAP. I discussed with patient the criticality of his illness and possible intubation patient now agrees to wear BiPAP with exception of meals. Patient's diet was advanced to clear liquid noted improvement of chest x-ray patient is noted to have last bowel movement approximately 2 days ago we will continue to monitor and follow-up GI recommendations . Noted electrolyte repletion at this time. PCO2 now in the 60s. 07/26: Patient continues to be noncompliant with BiPAP mask. ABGs obtained noting a PO2 of 45.6. The patient was emergently intubated this afternoon. Chest x-ray and repeat ABG pending at this time. Noted patient's last bowel movement last night. 07/27: Afebrile. Remains on ventilator. Will start tube feeding today. BM noted overnight. Replacing potassium phosphate, calcium chloride x1 now. And magnesium sulfate 07/28: Afebrile. Did not tolerate CPAP trial the same. Tolerating tube feeds today. Last bowel movement yesterday 09/26. Mild ileus on abdominal x-ray today. 07/29: Afebrile. Tolerated CPAP times 3 hours. He is intolerant to P. 2 bowel movements. Abdominal x-ray unchanged but no signs of obstructive or ileus. 07/30: Afebrile. Currently on CPAP trials. Positive BM. No change in neurological status. Increasing metoprolol to 5 mg IV every 6 hours. Subjective 07/31: Again on CPAP trials. Awake and alert on dexmedetomidine drip. Will put on metoprolol tartrate 25 mg every 8 hours and titrate. Positive BM. Recheck KUB in a.m. 08/01. 08/01: Currently tolerating CPAP, but requiring 15 pressure support. Patient had been intubated 3 times this admission, according to the caregiver and go from had to do patient's a total of several intubation in the last 2-3 months. I discussed with the patient was agreeable for tracheostomy, I also discussed with Stephanie patient's daughter and she has given consent for tracheostomy. Plan for tracheostomy tomorrow 08/02: Patient currently on Precedex awake alert not tolerating CPAP trials. Plan for tracheostomy today. Transfuse 1 unit PRBC 1 pack units of platelets prior to trach 08/03: Patient remains calm on the vent currently tolerating pressure support 06/06. Status post tracheostomy yesterday no significant bleeding. Platelet count 103 today. Objective Vital Signs / I&O: Vital Signs 08/02/18 11:43 08/02/18 12:00 08/02/18 12:06 Temperature 98.1 F 98.6 F Pulse Rate 117 H 112 H 109 H Respiratory Rate 17 19 16 Blood Pressure 115/60 105/54 L Pulse Oximetry 100 100 08/02/18 12:20 08/02/18 16:00 08/02/18 16:15 Temperature 98.1 F 98.6 F Pulse Rate 109 H 90 84 Respiratory Rate 16 16 16 Blood Pressure 105/55 L 106/56 L 113/64 Pulse Oximetry 100 100 08/02/18 16:30 08/02/18 16:45 08/02/18 17:00 Temperature Pulse Rate 80 83 81 Respiratory Rate 16 16 16 Blood Pressure 119/66 113/60 113/60 Pulse Oximetry 100 100 100 08/02/18 17:15 08/02/18 17:20 08/02/18 17:22 Temperature Pulse Rate 78 82 Respiratory Rate 16 16 16 Blood Pressure 123/69 Pulse Oximetry 100 100 08/02/18 17:30 08/02/18 17:45 08/02/18 18:00 Temperature Pulse Rate 86 88 89 Respiratory Rate 16 16 16 Blood Pressure 116/62 106/57 L 115/59 L Pulse Oximetry 100 100 100 08/02/18 18:15 08/02/18 18:30 08/02/18 18:45 Temperature Pulse Rate 91 H 86 85 Respiratory Rate 16 16 16 Blood Pressure 110/55 L 127/61 129/62 Pulse Oximetry 100 100 100 08/02/18 19:00 08/02/18 19:15 08/02/18 19:30 Temperature Pulse Rate 82 83 82 Respiratory Rate 16 16 16 Blood Pressure 117/61 124/59 L 127/61 Pulse Oximetry 100 100 100 08/02/18 19:45 08/02/18 19:55 08/02/18 20:00 Temperature 98.6 F Pulse Rate 80 81 Respiratory Rate 16 19 16 Blood Pressure 132/62 128/60 Pulse Oximetry 100 100 100 08/02/18 20:15 08/02/18 20:30 08/02/18 20:45 Temperature Pulse Rate 83 85 88 Respiratory Rate 16 16 16 Blood Pressure 133/65 114/58 L 111/57 L Pulse Oximetry 100 100 100 08/02/18 21:00 08/02/18 21:15 08/02/18 21:30 Temperature Pulse Rate 92 H 87 86 Respiratory Rate 16 16 16 Blood Pressure 119/61 138/65 128/63 Pulse Oximetry 100 100 100 08/02/18 21:45 08/02/18 22:00 08/02/18 22:15 Temperature Pulse Rate 86 89 90 Respiratory Rate 16 16 16 Blood Pressure 128/69 110/59 L 112/57 L Pulse Oximetry 100 100 100 08/02/18 22:30 08/02/18 22:45 08/02/18 23:00 Temperature Pulse Rate 90 91 H 87 Respiratory Rate 16 16 18 Blood Pressure 116/57 L 121/63 120/63 Pulse Oximetry 100 100 100 08/02/18 23:15 08/02/18 23:24 08/02/18 23:30 Temperature Pulse Rate 91 H 90 86 Respiratory Rate 17 16 16 Blood Pressure 115/59 L 122/62 Pulse Oximetry 100 100 08/02/18 23:45 08/03/18 00:00 08/03/18 00:15 Temperature 98.9 F Pulse Rate 92 H 92 H 93 H Respiratory Rate 19 16 17 Blood Pressure 115/63 122/66 117/62 Pulse Oximetry 100 100 100 08/03/18 00:30 08/03/18 00:45 08/03/18 01:00 Temperature Pulse Rate 97 H 93 H 96 H Respiratory Rate 18 23 17 Blood Pressure 121/68 117/62 125/61 Pulse Oximetry 100 100 100 08/03/18 01:15 08/03/18 01:22 08/03/18 01:30 Temperature Pulse Rate 98 H 97 H Respiratory Rate 18 19 21 Blood Pressure 124/65 122/66 Pulse Oximetry 100 100 100 08/03/18 01:45 08/03/18 02:00 08/03/18 02:15 Temperature Pulse Rate 96 H 96 H 97 H Respiratory Rate 18 19 25 H Blood Pressure 124/71 125/72 116/63 Pulse Oximetry 100 100 97 08/03/18 02:30 08/03/18 02:45 08/03/18 03:00 Temperature Pulse Rate 97 H 101 H 100 H Respiratory Rate 28 H 33 H 24 Blood Pressure 121/60 107/58 L 109/61 Pulse Oximetry 96 100 100 08/03/18 03:15 08/03/18 03:21 08/03/18 03:30 Temperature Pulse Rate 103 H 104 H 100 H Respiratory Rate 28 H 21 29 H Blood Pressure 96/67 L 107/65 Pulse Oximetry 100 100 08/03/18 03:45 08/03/18 04:00 08/03/18 04:15 Temperature 98.9 F Pulse Rate 107 H 111 H 110 H Respiratory Rate 24 26 H 17 Blood Pressure 107/69 120/67 126/74 Pulse Oximetry 99 100 100 08/03/18 04:30 08/03/18 06:00 08/03/18 07:00 Temperature Pulse Rate 111 H 108 H 111 H Respiratory Rate 21 27 H Blood Pressure 123/81 Pulse Oximetry 100 100 08/03/18 10:21 08/03/18 11:26 Temperature Pulse Rate 104 H Respiratory Rate 19 30 H Blood Pressure Pulse Oximetry 98 Intake & Output 08/02/18 08/03/18 08/03/18 18:59 06:59 18:59 Intake Total 1600 / 1600 813 / 813 250 / 250 Output Total 1050 / 1050 Balance 1600 / 1600 -237 / -237 250 / 250 Weight 78.5 kg Intake: IV 350 / 350 250 / 250 Precedex Inj 1,000 MCG In NS 250 / 250 250 / 250 Inj 240 ML @ 0.2 MCG/KG/HR 3.8 mls/hr IV.CONT TITRATE PRN Rx#: [id number] NS Inj 250 ML @ 15 mls/hr IV. 100 / 100 SIG ONCE WOLF Rx#:[id number] Oral 0 / 0 Tube Feeding 224 / 224 413 / 413 Water Bolus Amount 400 / 400 400 / 400 Intake (Blood Product) Amt 626 / 626 Prepooled Plts Leukoreduced 5d 226 / 226 Unit [id number] Rbc As-3 Leukoreduced Unit 400 / 400 [id number] Output: Stool 50 / 50 Urine Amount (Catheter) 1000 / 1000 Indwelling Temp Sensing 1000 / 1000 Catheter Other: Date of Last Bowel Movement 07/31/18 08/03/18 # Bowel Movements 0 1 Result Diagrams: 08/03/18 09:59 08/03/18 04:27 Objective Remarks: GENERAL: 73-year-old elderly -[place] male lying in bed, awake alert status post trach SKIN: Warm and dry HEAD: Normocephalic. EYES: PERRL NECK: Supple, trachea midline. New tracheostomy with minimal dry blood around the site CARDIOVASCULAR: Normal rhythm. S1, S2. No S4. No murmur RESPIRATORY: Diminished breath sounds in bases noted. B/L equal air entry, patient. CPAP tolerated 06/06 GASTROINTESTINAL: Abdomen less distended, non-tender, no guarding, bowel sounds present MUSCULOSKELETAL: Trace to bilateral upper/ lower extremity edema, warm and well- perfused NEURO: Alert awake on the vent Follows commands by moving upper and lower extremities withdraws to pain bilateral upper and lower extremities. Assessment and Plan - Assessment and Plan Plan: NEURO/Psych: Altered mental status due to CO2 retention -Wean to DC Precedex as tolerated -F/U acetylcholine receptor and autoantibodies was negative RESP: Hypercapnic respiratory failure Acute COPD exacerbation -Extubated 06/29. Reintubated 07/02 extubated again 07/07, reintubated 07/26 -Status post tracheostomy yesterday 08/02/2018. CPAP trial with T-piece up to 2 hours today -Albuterol/ipratropium aerosols every 4 hours scheduled and albuterol aerosols every 2 hours as needed -Continue steroids IV, Inhaled budesonide CV: Essential hypertension - Monitor HR and BP keep MAP>65mmHg -Currently on IV metoprolol 5 mg IV every 6 hours. Toprol tartrate 25 mg by tube every 8 hours GI: Colonic ileus -KUB 07/13: Stable nonobstructive colonic distention. -Given Neostigmine 07/11. -s/p repeat decompressive colonoscopy 07/10 and 07/15 -Continue pantoprazole -On docusate sodium/senna 1 tablet twice daily, lactulose 30 cc 4 times daily, polyethylene glycol 17 g daily. Fleets enema daily. Naltrexone 12 mg subcu daily -NG tube. Tube feeding with Glucerna 1.5 goal 45 cc daily per rectum recent recommendation -Abdominal x-ray revealed nonspecific bowel gas pattern. -Patient will need long-term trach will consult GI for PEG tube placement FEN//renal: Hypernatremia Hypophosphatemia Hypopotassemia -Monitor renal function, I/O's, avoid nephrotoxins -Renal function stable -Renal- Dr. Figueroa has followed -Received 30 mmol K-Phos, 25 milliequivalents potassium chloride by tube. Recheck electrolytes in a.m. -Free water 200 cc every 6 hours ID: -Off abx monitor for signs of infections (Fever, WBC) WBC stable -BC and urine cx from 07/11- NG -07/02 BC: NGTS, sputum cx 07/02:normal resp justyn -ID is following- Dr. Brown PRN -Urine culture from 07/28/2018 growing Koki. Repeat cultures sent 08/02/2018 after replacing Moreno HEME: Normocytic anemia Thrombocytopenia -Monitor CBC, coags, Hep PLT is positive. ANNMARIE negative. Hematology is following. Off argatroban drip -s/p 2U PRBCs on 07/16, Hgb 8.8, used for hemoglobin less than 7 -Give 1 unit of PRBC and 1 pack units of platelets today in anticipation of tracheostomy -Stable thrombocytopenia-avoid medications that precipitate thrombocytopenia ENDO: -Sliding scale insulin medium scale aspart insulin every 4 hours. Continue insulin detemir 10 units twice daily PROPH: -Bilateral lower extremity SCDs. PPI -Doppler US LE negative DVT 07/02 -Start Lovenox 40 mg daily from tomorrow LINES: -Utilize peripheral IVs Level 2 follow-up
[2018-08-03] MEDS ORDERED: Vancomycin Consult Pharmacy OTHER PRN (16:17)
[2018-08-03] MEDS ORDERED: Vancomycin Inj 1,000 MG in Sodium Chlor 0.9% Inj 250 ML IV.SIG ONE (17:00)
--- NOTE | 2018-08-03 20:13 | P.PNID ---
Subjective Remarks: pt is having fever, mostly low grade UA abnormal, growing GNB, enterococcus co back pain Antibiotics: cefepim vancomycin Allergies/Adverse Reactions: Allergies shellfish derived Allergy (Severe, Verified 10/10/17 13:48) Anaphylaxis Objective Vital Signs 08/02/18 20:15 08/02/18 20:30 08/02/18 20:45 Temperature Pulse Rate 83 85 88 Respiratory Rate 16 16 16 Blood Pressure 133/65 114/58 L 111/57 L Pulse Oximetry 100 100 100 08/02/18 21:00 08/02/18 21:15 08/02/18 21:30 Temperature Pulse Rate 92 H 87 86 Respiratory Rate 16 16 16 Blood Pressure 119/61 138/65 128/63 Pulse Oximetry 100 100 100 08/02/18 21:45 08/02/18 22:00 08/02/18 22:15 Temperature Pulse Rate 86 89 90 Respiratory Rate 16 16 16 Blood Pressure 128/69 110/59 L 112/57 L Pulse Oximetry 100 100 100 08/02/18 22:30 08/02/18 22:45 08/02/18 23:00 Temperature Pulse Rate 90 91 H 87 Respiratory Rate 16 16 18 Blood Pressure 116/57 L 121/63 120/63 Pulse Oximetry 100 100 100 08/02/18 23:15 08/02/18 23:24 08/02/18 23:30 Temperature Pulse Rate 91 H 90 86 Respiratory Rate 17 16 16 Blood Pressure 115/59 L 122/62 Pulse Oximetry 100 100 08/02/18 23:45 08/03/18 00:00 08/03/18 00:15 Temperature 98.9 F Pulse Rate 92 H 92 H 93 H Respiratory Rate 19 16 17 Blood Pressure 115/63 122/66 117/62 Pulse Oximetry 100 100 100 08/03/18 00:30 08/03/18 00:45 08/03/18 01:00 Temperature Pulse Rate 97 H 93 H 96 H Respiratory Rate 18 23 17 Blood Pressure 121/68 117/62 125/61 Pulse Oximetry 100 100 100 08/03/18 01:15 08/03/18 01:22 08/03/18 01:30 Temperature Pulse Rate 98 H 97 H Respiratory Rate 18 19 21 Blood Pressure 124/65 122/66 Pulse Oximetry 100 100 100 08/03/18 01:45 08/03/18 02:00 08/03/18 02:15 Temperature Pulse Rate 96 H 96 H 97 H Respiratory Rate 18 19 25 H Blood Pressure 124/71 125/72 116/63 Pulse Oximetry 100 100 97 08/03/18 02:30 08/03/18 02:45 08/03/18 03:00 Temperature Pulse Rate 97 H 101 H 100 H Respiratory Rate 28 H 33 H 24 Blood Pressure 121/60 107/58 L 109/61 Pulse Oximetry 96 100 100 08/03/18 03:15 08/03/18 03:21 08/03/18 03:30 Temperature Pulse Rate 103 H 104 H 100 H Respiratory Rate 28 H 21 29 H Blood Pressure 96/67 L 107/65 Pulse Oximetry 100 100 08/03/18 03:45 08/03/18 04:00 08/03/18 04:15 Temperature 98.9 F Pulse Rate 107 H 111 H 110 H Respiratory Rate 24 26 H 17 Blood Pressure 107/69 120/67 126/74 Pulse Oximetry 99 100 100 08/03/18 04:30 08/03/18 06:00 08/03/18 07:00 Temperature Pulse Rate 111 H 108 H 111 H Respiratory Rate 21 27 H Blood Pressure 123/81 Pulse Oximetry 100 100 08/03/18 08:00 08/03/18 10:21 08/03/18 11:26 Temperature 101 F H Pulse Rate 113 H 104 H Respiratory Rate 21 19 30 H Blood Pressure 117/63 Pulse Oximetry 100 98 08/03/18 12:00 08/03/18 14:59 08/03/18 15:34 Temperature 100.9 F H Pulse Rate 103 H 96 H Respiratory Rate 27 H 24 Blood Pressure 102/59 L Pulse Oximetry 98 100 99 08/03/18 16:00 08/03/18 19:27 Temperature 98.3 F Pulse Rate 101 H 100 H Respiratory Rate 27 H 20 Blood Pressure 103/58 L Pulse Oximetry 98 Intake & Output 08/03/18 08/03/18 08/04/18 06:59 18:59 06:59 Intake Total 813 / 813 1955 / 195 Output Total 1050 / 1050 700 / 700 Balance -237 / -237 1256 / 1256 Weight 78.5 kg Intake: IV 1025 / 1025 Precedex Inj 1,000 MCG In NS 500 / 500 Inj 240 ML @ 0.2 MCG/KG/HR 3.8 mls/hr IV.CONT TITRATE PRN Rx#: [id number] Versed Inj 100 mg In 100 ml @ 2 75 / 75 MG/HR 2 mls/hr IV.CONT TITRATE PRN Rx#:[id number] Ofirmev Inj 1,000 mg In 100 ml 100 / 100 @ 400 mls/hr IV.SIG ONCE ONE Rx #:[id number] Maxipime Inj 2,000 MG In NS Inj 100 / 100 100 ML @ 200 mls/hr IV.SIG Q8H WOLF Rx#:[id number] Vancomycin Inj 1,000 MG In NS 250 / 250 Inj 250 ML @ 250 mls/hr IV.SIG ONCE ONE Rx#:[id number] Oral 0 / 0 Tube Feeding 413 / 413 531 / 531 Water Bolus Amount 400 / 400 400 / 400 Output: Stool 50 / 50 Urine Amount (Catheter) 1000 / 1000 700 / 700 Indwelling Temp Sensing 1000 / 1000 700 / 700 Catheter Other: Date of Last Bowel Movement 08/03/18 07/31/18 # Bowel Movements 1 0 08/03/18 14:30 Blood - Peripheral Aerobic Blood Culture - Pending 08/03/18 14:30 Blood - Peripheral Anaerobic Blood Culture - Pending 08/03/18 14:56 Blood - Peripheral Aerobic Blood Culture - Pending 08/03/18 14:56 Blood - Peripheral Anaerobic Blood Culture - Pending 08/02/18 09:30 Catheterized Urine Urine Culture - Preliminary Group D Enterococcus gram negative rods Lab - Hematology Results 08/02/18 08/03/18 04:15 09:59 WBC 7.9 8.9 RBC 2.34 L 2.60 L Hgb 7.2 L 8.2 L Hct 22.2 L 23.6 L MCV 94.9 90.5 D MCH 31.0 31.4 MCHC 32.6 34.7 RDW 16.1 16.5 Plt Count 60 L 103 L D MPV 10.3 9.3 Lab - Chemistry Results 07/28/18 08/01/18 08/02/18 12:52 23:47 03:55 Sodium Potassium Chloride Carbon Dioxide Anion Gap BUN Creatinine Estimated GFR POC Glucose 107 117 H Random Glucose Calcium Calcium Adj for Albumin Magnesium Total Bilirubin AST ALT Alkaline Phosphatase Total Protein Albumin Vitamin A 23 L 08/02/18 08/02/18 08/02/18 04:15 08:33 11:30 Sodium 148 H Potassium 3.5 Chloride 108 H Carbon Dioxide 32.5 H Anion Gap 8 BUN 17 Creatinine 0.62 Estimated GFR Greater than 89 POC Glucose 109 105 Random Glucose 109 H Calcium 7.3 L* Calcium Adj for Albumin 8.2 L Magnesium Total Bilirubin 0.5 AST 36 ALT 38 Alkaline Phosphatase 93 Total Protein 5.4 L Albumin 2.2 L Vitamin A 08/02/18 08/02/18 08/02/18 17:35 20:25 23:40 Sodium Potassium Chloride Carbon Dioxide Anion Gap BUN Creatinine Estimated GFR POC Glucose 157 H 193 H 222 H Random Glucose Calcium Calcium Adj for Albumin Magnesium Total Bilirubin AST ALT Alkaline Phosphatase Total Protein Albumin Vitamin A 08/03/18 08/03/18 08/03/18 03:48 04:27 08:18 Sodium 145 Potassium 4.2 Chloride 107 Carbon Dioxide 31.8 Anion Gap 6 BUN 18 Creatinine 0.73 Estimated GFR Greater than 89 POC Glucose 183 H 109 Random Glucose 159 H Calcium 7.3 L* Calcium Adj for Albumin 8.1 L Magnesium 1.6 Total Bilirubin 0.6 AST 39 H ALT 44 Alkaline Phosphatase 127 H Total Protein 5.7 L Albumin 2.3 L Vitamin A 08/03/18 08/03/18 08/03/18 12:43 16:58 20:05 Sodium Potassium Chloride Carbon Dioxide Anion Gap BUN Creatinine Estimated GFR POC Glucose 205 H 158 H 177 H Random Glucose Calcium Calcium Adj for Albumin Magnesium Total Bilirubin AST ALT Alkaline Phosphatase Total Protein Albumin Vitamin A Imaging: ITS Impressions Abdomen Ultrasound 06/21/18 00:00 CONCLUSION: 1. No ascites is identified within the abdomen. Abdomen/Bladder Ultrasound 06/28/18 00:00 CONCLUSION: 1. Echogenic kidneys characteristic of medical renal disease. No hydronephrosis. Bladder decompressed by Mora Chest CTA 07/02/18 00:00 CONCLUSION: 1. No pulmonary embolus. 2. Diffuse but basilar predominant bilateral airspace disease. 3. Endotracheal and endobronchial secretions are demonstrated. 4. Moderate emphysema. 5. Left ventricular hypertrophy. Abdomen/Pelvis CT 07/10/18 08:31 CONCLUSION: 1. There is gas and fluid distending the colon. The patient has a rectal tube in place however the rectal tube is kinked back on itself and occluded. The overall size of the colon has mildly increased when compared to previous exam. The small bowel is normal in caliber. 2. Interval development of a small left basilar effusion and atelectasis. Venous Doppler Study 07/15/18 00:00 CONCLUSION: 1. Limited suboptimal examination. 2. Nonocclusive thrombus in the jugular vein. Abdomen X-Ray 08/01/18 09:59 CONCLUSION: NG tube in place. Mild gaseous distention of portions of colon. Chest X-Ray 08/03/18 06:00 CONCLUSION: Stable bibasilar airspace opacity representing either atelectasis or airspace consolidation. There is also a questionable hazy opacity at the right base which could indicate a small pleural effusion. Physical Exam: GENERAL: NAD SKIN: Warm and dry. no rash HEAD: Atraumatic. Normocephalic. EYES: Pupils equal and round. No scleral icterus. No injection or drainage. CARDIOVASCULAR: Regular rate and rhythm. RESPIRATORY: No accessory muscle use. Clear to auscultation. Breath sounds equal bilaterally. GASTROINTESTINAL: Abdomen soft, l+ tender, markedly distended and tympanic. Hepatic and splenic margins not palpable. : mora in place MUSCULOSKELETAL: Extremities without clubbing, cyanosis, or edema. No obvious deformities. NEUROLOGICAL: Awake and alert. No obvious cranial nerve deficits. Motor grossly within normal limits. Five out of 5 muscle strength in the arms and legs. Normal speech. 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
[2018-08-04] MEDS: Vancomycin Inj 1,250 MG in Sodium Chlor 0.9% Inj 250 ML IV.SIG SCH ×2 (02:02→13:16)
[2018-08-04] MEDS: Pantoprazole Inj 40 MG Vial IV.PUSH SCH ×2 (02:02→13:16)
[2018-08-04] MEDS: Dexmedetomidine Inj 1,000 MCG in Sodium Chlor 0.9% Inj 240 ML IV.CONT PRN ×2 (04:44→18:26)
[2018-08-04] MEDS: Insulin NovoLOG Aspart Correctional Sugar Inj SQ SCH ×5 (05:58→21:32)
[2018-08-04] MEDS: Artificial Tears Opth Drops 15 ML Bottle EACH EYE SCH ×2 (09:13→16:16)
[2018-08-04] MEDS: Methylnaltrexone Inj 12 MG/0.6 ML Vial SQ SCH (09:14)
[2018-08-04] MEDS: Polyethylene Glycol 3350 17 GM Packet PO SCH (09:14)
[2018-08-04] MEDS: Multivitamin/Minerals Therapeutic Tablet PO SCH (09:14)
[2018-08-04] MEDS: Docusate Sodium Liq 100 MG/10 ML UDC NG/OG SCH ×2 (09:14→21:34)
[2018-08-04] MEDS: Sennosides Liq 8.8 MG/5 ML UDC NG/OG SCH ×2 (09:14→21:34)
[2018-08-04] MEDS: Calcium/Vitamin D 250/125 MG Tablet PO SCH (09:14)
[2018-08-04] MEDS: Enoxaparin Inj 40 MG/0.4 ML Syringe SQ SCH (09:14)
[2018-08-04] MEDS: Ascorbic Acid 500 MG Tablet PO SCH (09:14)
[2018-08-04] MEDS: Metoprolol Tartrate 25 MG Tablet PO SCH ×3 (09:14→17:44)
[2018-08-04] MEDS: Bisacodyl 10 MG Supp RECTAL SCH (09:14)
[2018-08-04] MEDS: Insulin Detemir Inj 1,000 UNIT/10 ML Vial SQ SCH ×2 (09:15→22:30)
--- NOTE | 2018-08-04 14:55 | P.PNPAL ---
Reason for Visit Reason for visit: a. To assist with evaluation and management of symptoms including: pain, dyspnea b. To assist medical decision maker(s) with: better understanding of current medical conditions; weighing benefits/burdens of medical treatment options; making medical treatment decisions. Subjective Subjective/Interval History: Follow up visit for symptom management of pain and dyspnea and clarification of medical treatment. Mr. Curry remains in [facility] status post tracheostomy on 08/02/2018. Tolerating spontaneous breathing trials. Follow-up chest x-ray on 08/03/2018 showed stable bibasilar airspace opacity representing either atelectasis or airspace consolidation. There was also a questionable hazy opacity at the right base which could indicate a small pleural effusion. Spoke with patient's daughter, Stephanie. She stated she and her aunts are making medical decisions for her father as a group because she does not live locally and is not always readily available. Healthcare surrogate designation form completed 07/01/2018 designates the patient's sister, Evita Og, as the healthcare surrogate decision-maker. Tentative plan for PEG tube placement procedure has been placed on hold pending further conversations with patient's family. Messages left with patient's sister (Evita Euceda); awaiting return phone call Family/Friend Interactions: See interval history Objective Vital Signs: Vital Signs 08/03/18 14:59 08/03/18 15:34 08/03/18 16:00 Temperature 98.3 F Pulse Rate 96 H 101 H Respiratory Rate 24 27 H Blood Pressure 103/58 L Pulse Oximetry 100 99 98 08/03/18 16:15 08/03/18 16:30 08/03/18 16:45 Temperature Pulse Rate 100 H 100 H 97 H Respiratory Rate 27 H 27 H 28 H Blood Pressure 101/59 L 105/56 L 98/53 L Pulse Oximetry 99 99 98 08/03/18 17:00 08/03/18 18:00 08/03/18 19:00 Temperature Pulse Rate 96 H 96 H 97 H Respiratory Rate 27 H 26 H 28 H Blood Pressure 106/59 L 103/57 L 104/59 L Pulse Oximetry 100 97 100 08/03/18 19:27 08/03/18 20:00 08/03/18 21:00 Temperature 99.3 F Pulse Rate 100 H 109 H 117 H Respiratory Rate 20 29 H 27 H Blood Pressure 91/59 L 113/56 L Pulse Oximetry 100 100 08/03/18 22:00 08/03/18 23:00 08/03/18 23:39 Temperature Pulse Rate 103 H 101 H 98 H Respiratory Rate 29 H 25 H 25 H Blood Pressure 105/56 L 104/55 L Pulse Oximetry 100 100 08/04/18 00:00 08/04/18 00:11 08/04/18 01:00 Temperature 99.1 F Pulse Rate 101 H 100 H Respiratory Rate 25 H 24 27 H Blood Pressure 110/55 L 106/59 L Pulse Oximetry 100 100 100 08/04/18 02:00 08/04/18 03:00 08/04/18 03:32 Temperature Pulse Rate 96 H 93 H 92 H Respiratory Rate 26 H 28 H 25 H Blood Pressure 104/55 L 108/57 L Pulse Oximetry 100 100 08/04/18 04:00 08/04/18 04:10 08/04/18 05:00 Temperature 99.2 F Pulse Rate 97 H 96 H Respiratory Rate 28 H 24 28 H Blood Pressure 108/58 L 103/58 L Pulse Oximetry 100 100 100 08/04/18 06:00 08/04/18 07:00 08/04/18 08:00 Temperature 99.7 F H Pulse Rate 97 H 94 H 94 H Respiratory Rate 28 H 30 H 28 H Blood Pressure 110/59 L 116/58 L 112/60 Pulse Oximetry 100 100 100 08/04/18 08:18 08/04/18 09:00 08/04/18 10:00 Temperature Pulse Rate 98 H 95 H 101 H Respiratory Rate 31 H 29 H 32 H Blood Pressure 119/59 L 118/62 Pulse Oximetry 100 100 100 08/04/18 10:57 08/04/18 11:01 Temperature Pulse Rate 107 H 103 H Respiratory Rate 33 H 26 H Blood Pressure 120/80 Pulse Oximetry 92 L Intake & Output 08/03/18 08/04/18 08/04/18 18:59 06:59 18:59 Intake Total 6 / 1956 850 / 850 362.5 / 362.5 Output Total 700 / 700 750 / 750 Balance 1256 / 1256 100 / 100 362.5 / 362.5 Intake: IV 1025 / 1025 350 / 350 362.5 / 362.5 Precedex Inj 1,000 MCG In NS 500 / 500 250 / 250 Inj 240 ML @ 0.2 MCG/KG/HR 3.8 mls/hr IV.CONT TITRATE PRN Rx#: [id number] Versed Inj 100 mg In 100 ml @ 2 75 / 75 MG/HR 2 mls/hr IV.CONT TITRATE PRN Rx#:[id number] Ofirmev Inj 1,000 mg In 100 ml 100 / 100 @ 400 mls/hr IV.SIG ONCE ONE Rx #:[id number] Maxipime Inj 2,000 MG In NS Inj 100 / 100 100 / 100 100 / 100 100 ML @ 200 mls/hr IV.SIG Q8H WOLF Rx#:[id number] Vancomycin Inj 1,000 MG In NS 250 / 250 Inj 250 ML @ 250 mls/hr IV.SIG ONCE ONE Rx#:[id number] Vancomycin Inj 1,250 MG In NS 262.5 / 262.5 Inj 250 ML @ 250 mls/hr IV.SIG Q12H WOLF Rx#:[id number] Oral 0 / 0 Tube Feeding 531 / 531 240 / 240 Tube Irrigant 60 / 60 Water Bolus Amount 400 / 400 200 / 200 Output: Urine Amount (Catheter) 700 / 700 750 / 750 Indwelling Temp Sensing 700 / 700 750 / 750 Catheter Other: Date of Last Bowel Movement 07/31/18 08/03/18 # Bowel Movements 0 Physical Exam: CONSTITUTIONAL/GENERAL: This is an elderly, male patient currently sedated and intubated on mechanical ventilation TUBES/LINES/DRAINS: PIV x 2, ETT, OGT, put his boots, SCDs, indwelling Moreno catheter, soft restraints SKIN: No jaundice, rashes, or lesions. Ecchymoses on upper extremities. No wounds seen anteriorly. Skin temperature appropriate. Not diaphoretic. HEAD: Atraumatic. Normocephalic. EYES: Pupils equal and round and reactive. Extraocular motions intact. No scleral icterus. No injection or drainage. Fundi not examined. ENT: Hearing grossly normal. Nose without bleeding or purulent drainage. NECK: Trachea midline. Supple, nontender. No palpable thyroid enlargement or nodularity. CARDIOVASCULAR: Regular rate and rhythm without murmurs, gallops, or rubs. No JVD. Peripheral pulses symmetric. RESPIRATORY/CHEST: Intubated on mechanical ventilation. No wheezing, rales or rhonchi GASTROINTESTINAL: Abdomen firm, nontender. No guarding. Bowel sounds present. GENITOURINARY: Without palpable bladder distension. Moreno catheter in place. MUSCULOSKELETAL: Extremities without clubbing, cyanosis, or edema. No mottling or clubbing. LYMPHATICS: No palpable cervical or supraclavicular adenopathy. NEUROLOGICAL: Sedated PSYCHIATRIC: No obvious anxiety/depression. No apparent hallucinations or other psychotic thought process. Diagnostic Tests Laboratory: Laboratory Results - last 72 hr 07/16/18 07/28/18 08/01/18 11:05 12:52 16:52 WBC RBC Hgb Hct MCV MCH MCHC RDW Plt Count MPV PT INR Sodium Potassium Chloride Carbon Dioxide Anion Gap BUN Creatinine Estimated GFR POC Glucose 162 H Random Glucose Calcium Calcium Adj for Albumin Magnesium Total Bilirubin AST ALT Alkaline Phosphatase Total Protein Albumin Vitamin A 23 L Blood Type Antibody Screen MTS Gel Crossmatch See Detail Bld Prod Order Comment 08/01/18 08/01/18 08/02/18 19:29 23:47 03:55 WBC RBC Hgb Hct MCV MCH MCHC RDW Plt Count MPV PT INR Sodium Potassium Chloride Carbon Dioxide Anion Gap BUN Creatinine Estimated GFR POC Glucose 81 107 117 H Random Glucose Calcium Calcium Adj for Albumin Magnesium Total Bilirubin AST ALT Alkaline Phosphatase Total Protein Albumin Vitamin A Blood Type Antibody Screen MTS Gel Crossmatch Bld Prod Order Comment 08/02/18 08/02/18 08/02/18 04:15 04:15 04:15 WBC 7.9 RBC 2.34 L Hgb 7.2 L Hct 22.2 L MCV 94.9 MCH 31.0 MCHC 32.6 RDW 16.1 Plt Count 60 L MPV 10.3 PT 10.0 INR 1.0 Sodium 148 H Potassium 3.5 Chloride 108 H Carbon Dioxide 32.5 H Anion Gap 8 BUN 17 Creatinine 0.62 Estimated GFR Greater than 89 POC Glucose Random Glucose 109 H Calcium 7.3 L* Calcium Adj for Albumin 8.2 L Magnesium Total Bilirubin 0.5 AST 36 ALT 38 Alkaline Phosphatase 93 Total Protein 5.4 L Albumin 2.2 L Vitamin A Blood Type Antibody Screen MTS Gel Crossmatch Bld Prod Order Comment 08/02/18 08/02/18 08/02/18 08:33 08:33 11:30 WBC RBC Hgb Hct MCV MCH MCHC RDW Plt Count MPV PT INR Sodium Potassium Chloride Carbon Dioxide Anion Gap BUN Creatinine Estimated GFR POC Glucose 109 105 Random Glucose Calcium Calcium Adj for Albumin Magnesium Total Bilirubin AST ALT Alkaline Phosphatase Total Protein Albumin Vitamin A Blood Type O Positive Antibody Screen Negative MTS Gel Crossmatch See Detail Bld Prod Order Comment 08/02/18 08/02/18 08/02/18 17:35 20:25 23:40 WBC RBC Hgb Hct MCV MCH MCHC RDW Plt Count MPV PT INR Sodium Potassium Chloride Carbon Dioxide Anion Gap BUN Creatinine Estimated GFR POC Glucose 157 H 193 H 222 H Random Glucose Calcium Calcium Adj for Albumin Magnesium Total Bilirubin AST ALT Alkaline Phosphatase Total Protein Albumin Vitamin A Blood Type Antibody Screen MTS Gel Crossmatch Bld Prod Order Comment 08/03/18 08/03/18 08/03/18 03:48 04:27 08:18 WBC RBC Hgb Hct MCV MCH MCHC RDW Plt Count MPV PT INR Sodium 145 Potassium 4.2 Chloride 107 Carbon Dioxide 31.8 Anion Gap 6 BUN 18 Creatinine 0.73 Estimated GFR Greater than 89 POC Glucose 183 H 109 Random Glucose 159 H Calcium 7.3 L* Calcium Adj for Albumin 8.1 L Magnesium 1.6 Total Bilirubin 0.6 AST 39 H ALT 44 Alkaline Phosphatase 127 H Total Protein 5.7 L Albumin 2.3 L Vitamin A Blood Type Antibody Screen MTS Gel Crossmatch Bld Prod Order Comment 08/03/18 08/03/18 08/03/18 09:59 12:43 16:58 WBC 8.9 RBC 2.60 L Hgb 8.2 L Hct 23.6 L MCV 90.5 D MCH 31.4 MCHC 34.7 RDW 16.5 Plt Count 103 L D MPV 9.3 PT INR Sodium Potassium Chloride Carbon Dioxide Anion Gap BUN Creatinine Estimated GFR POC Glucose 205 H 158 H Random Glucose Calcium Calcium Adj for Albumin Magnesium Total Bilirubin AST ALT Alkaline Phosphatase Total Protein Albumin Vitamin A Blood Type Antibody Screen MTS Gel Crossmatch Bld Prod Order Comment 08/03/18 08/03/18 08/04/18 20:05 23:47 05:17 WBC RBC Hgb Hct MCV MCH MCHC RDW Plt Count MPV PT INR Sodium Potassium Chloride Carbon Dioxide Anion Gap BUN Creatinine Estimated GFR POC Glucose 177 H 204 H 145 H Random Glucose Calcium Calcium Adj for Albumin Magnesium Total Bilirubin AST ALT Alkaline Phosphatase Total Protein Albumin Vitamin A Blood Type Antibody Screen MTS Gel Crossmatch Bld Prod Order Comment 08/04/18 08/04/18 09:00 13:15 WBC RBC Hgb Hct MCV MCH MCHC RDW Plt Count MPV PT INR Sodium Potassium Chloride Carbon Dioxide Anion Gap BUN Creatinine Estimated GFR POC Glucose 145 H 197 H Random Glucose Calcium Calcium Adj for Albumin Magnesium Total Bilirubin AST ALT Alkaline Phosphatase Total Protein Albumin Vitamin A Blood Type Antibody Screen MTS Gel Crossmatch Bld Prod Order Comment Result Diagrams: 08/03/18 09:59 08/03/18 04:27 Microbiology: Microbiology 08/03/18 14:30 Aerobic Blood Culture - Preliminary Blood - Peripheral No growth in 1 day Anaerobic Blood Culture - Preliminary No growth in 1 day 08/03/18 14:56 Aerobic Blood Culture - Preliminary Blood - Peripheral No growth in 1 day Anaerobic Blood Culture - Preliminary No growth in 1 day 08/02/18 09:30 Urine Culture - Final Catheterized Urine Enterococcus faecalis Klebsiella pneumoniae Imaging: Abdomen Ultrasound 06/21/18 00:00 CONCLUSION: 1. No ascites is identified within the abdomen. Abdomen/Bladder Ultrasound 06/28/18 00:00 CONCLUSION: 1. Echogenic kidneys characteristic of medical renal disease. No hydronephrosis. Bladder decompressed by Moreno Chest CTA 07/02/18 00:00 CONCLUSION: 1. No pulmonary embolus. 2. Diffuse but basilar predominant bilateral airspace disease. 3. Endotracheal and endobronchial secretions are demonstrated. 4. Moderate emphysema. 5. Left ventricular hypertrophy. Abdomen/Pelvis CT 07/10/18 08:31 CONCLUSION: 1. There is gas and fluid distending the colon. The patient has a rectal tube in place however the rectal tube is kinked back on itself and occluded. The overall size of the colon has mildly increased when compared to previous exam. The small bowel is normal in caliber. 2. Interval development of a small left basilar effusion and atelectasis. Venous Doppler Study 07/15/18 00:00 CONCLUSION: 1. Limited suboptimal examination. 2. Nonocclusive thrombus in the jugular vein. Abdomen X-Ray 08/01/18 09:59 CONCLUSION: NG tube in place. Mild gaseous distention of portions of colon. Chest X-Ray 08/03/18 06:00 CONCLUSION: Stable bibasilar airspace opacity representing either atelectasis or airspace consolidation. There is also a questionable hazy opacity at the right base which could indicate a small pleural effusion. 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 Pertinent Non-Medical Issues: Psychosocial: Patient is a . He is a . Spiritual: [employer] mark Legal: Per [place] statutes, in the absence of written advanced directives healthcare proxy decision making falls to the patient's adult children Ethical issues impacting care: No known ethical issues impacting care at this time Important Contacts: Stephanie Craig, daughter: [phone] Felicitas Hood, other relationship: [phone] Sara Maldonado, sister: [phone] Evita Zavala, sister: [phone] Prognosis: Patient is an elderly male with severe COPD who was admitted with a COPD exacerbation. He has been in and out of the intensive care unit; respiratory status is borderline. Patient remains high risk for decompensation ongoing decline. Code Status: Full Code Plan: * FULL CODE * Decision making: Patient is . He has only 1 known child. Per [place] statutes, in the absence of written advanced directives healthcare proxy decision making falls to the patient's daughter, Stephanie. * Discussed patient with bedside RN (Ramonita) as well as Dr. Hugo * Spoke with patient's daughter, Stephanie. She states she and her aunts are making medical decisions for her father as a group because she does not live locally and is not always readily available. Update provided on patient's medical condition status post reintubation on 07/26/2018 (4th intubation since admission) Stephanie tells me that her father has told her he is not ready to , and he would want everything done to keep him alive up to and including tracheostomy if indicated. * Symptom management: Pain: Multifactorial. Contributing factors include chronic back pain, abdominal distention, colonic ileus, infection, invasive lines, intubation. Currently sedated on propofol 50mcg/kg/min. [place] 10/325 is available q4 hours PRN. Patient has has 2 doses in the past Dyspnea: Patient has required intubation four times since admission. Tolerating spontaneous breathing trials. Follow-up chest x-ray this morning showing mild basilar density, likely atelectasis. No effusion or pneumothorax was noted. Pulmonology following. On Albuterol nebulizers (scheduled and PRN), Pulmicort every 12 hours and Solu-Medrol daily. Family amenable to tracheostomy if indicated. * Palliative care will continue to follow this patient throughout his hospitalization to establish trust, assist with symptom management and clarification of medical treatment goals. . Attestation Attestation: To help prompt me to consider important information that might be impacting today's encounter and assessment, information from prior notes written by myself or my colleagues may have been "brought forward" into today's note. My signature on this note, however, is an attestation that I personally performed the exam, history, and/or decision-making noted today, and, unless otherwise indicated, the interactions with patient, family, and staff as well as the review of records all occurred today. I also attest that the listed assessment and stated plan reflect my best clinical judgment today based on the combination of historical information, prior notes, and today's exam/ interactions. When time spent is documented, it refers only to time spent today by the signer, or if indicated, combined time spent today by collaborating physician/nurse practitioner.
--- NOTE | 2018-08-04 15:05 | P.PNCC ---
Subjective Subjective Remarks/Hospital Course: Mr. Curry is a 73-year-old -[place] male with past medical history significant for COPD on 3 L nasal cannula, hypertension, hyperlipidemia and anxiety who was admitted to the hospitalist service on 06/19/2018 for worsening shortness of breath due to COPD exacerbation. He was treated with IV Solu- Medrol, IV antibiotics, breathing treatments gradually improved. Patient was also complaining about dyspepsia and underwent EGD by GI yesterday. Per report the EGD was normal but patient developed worsening shortness of breath and COPD exacerbation postprocedure, possibly from aspiration after sedated. Two ABGs done yesterday showed hypercapnic respiratory failure second 1 was on BiPAP and this was improved with pH 7.3 with PCO2 of 74. Patient remained on BiPAP overnight however was noticed to be lethargic today a.m., stat ABG showed pH of 7.21 PCO2 110 PO2 88 while on BiPAP. Patient was lethargic intermittently dozing off due to CO2 narcosis. Critical care medicine was consulted and I immediately evaluated the patient. Patient had obviously failed BiPAP I proceeded with endotracheal intubation placed on mechanical ventilation. Postintubation I have ordered single dose of Solu-Medrol 125 mg x1 continue Solu -Medrol 60 every 8, discontinue ceftriaxone and start cefepime 2 g IV every 8 hours continue azithromycin. Add budesonide inhaled, placed on scheduled DuoNeb every 4 hours and as needed. 06/27: Patient was intubated yesterday for severe hypercapnic respiratory failure. Currently remains intubated sedated and intubated remains diminished bilaterally. Heavily sedated for ventilator synchrony 06/28: Urine output significantly improved with fluid resuscitation. Creat down trending now 2 from 2.3, UO >3.3 L. Remains intubated sedated. Will initiate daily sedation vacation and CPAP trials 06/29: More awake today tolerating CPAP trials intermittently follows commands but gets agitated/frustrated fast. Urine output remains excellent creatinine 1.4. However sodium increasing 158 today. Night solvent mixer had changed fluid to D5 W for free water replacement. Due to hypoglycemia will change to quarter normal saline at 150 mL/h repeat CMP in the afternoon 06/30 Patient was extubated yesterday. Awake 07/01 Patient is lying in bed in NAD. T: 100.5 07/02: Intubated early this morning due to acute hypoxic respiratory failure. Central line placed due to hypotension. Plan for GI perform endoscopic decompression of this large bowel today. Arousable and does follow commands. Placed on argatroban 07/03: Currently, intubated with borderline blood pressure. Central line placed yesterday due to hypotension. Did not move bowels despite 1 L of fluid from colonoscopy yesterday and multiple laxatives provided. See orders for additional laxatives today. Might need neostigmine. 07/04 Patient remains intubated and sedated with Diprivan. Given Neostigmine last night. KUB this morning showed colonic ileus. Afebrile. On Argatroban. 07/05 No events overnight, sedated with Diprivan and intubated. Off Argatroban. 07/06 Patient remains intubated and sedated. Afebrile. 07/07 Patient remains intubated, s/p decompressive colonoscopy yesterday. Awake. 07/08 Patient s/p extubation yesterday. Awake and alert. 07/09 Patient is awake, alert lying in bed in NAD. Afebrile. 07/10 Patient is awake and alert, Afebrile. 07/11 Patient s/p decompressive colonoscopy yesterday. Afebrile. On Lasix drip.( UOP: 2800ml overnight). Cr: 3.0 from 2.25. 07/12 Patient is awake, alert given Neostigmine overnight. NGT to LIWS, off Lasix drip. 07/13: Resting comfortably in bed in no acute distress. 3 bowel movements documented. Remains n.p.o. Bladder pressures around 6. Potassium being replaced. Remains anemic around 7. 07/14 Patient is lying in bed in NAD. Afebrile. 07/15 No events overnight. Afebrile. 07/16: Resting in bed mild distress. Abdomen remains distended. Hemoglobin has dropped to 6.2 2 units of PRBC ordered. Patient underwent decompressive colonoscopy by Dr. Berrios for colonic ileus 07/17: No significant overnight events, patient states that he wants to get out of bed to a chair as he is having rectal discomfort. 07/18: Patient reportedly had a BM after digital rectal exam yesterday, states that he's been passing flatus "every now and then" overnight. No plans for OR or sigmoidoscopy as per colorectal service, OK to transfer out of [facility]. 07/19: Patient transferred to [facility] yesterday, complained of shortness of breath again today. An ABG showed a pCO2 of 79 so he was placed on bipap and transferred to [facility]. Most recent ABG shows pCO2 of 66, KUB still has abdominal distension but appears to be improved when compared to KUB from 07/15. Patient has reportedly been having bowel movements and passing flatus overnight. 07/20: No dramatic improvement in abdominal distention however abdomen soft. The patient was able to breathe comfortably overnight and remained alert. This morning the BiPAP mask was removed for half an hour and the patient did well without evidence of CO2 retention or somnolence. Reconsult note 07/23: The patient was a halicat from the [facility] floor. Patient was noted to be somnolent, had difficulty breathing. Stat ABG was performed revealing a PCO2 of 113. The patient was placed on BiPAP and transferred to [facility]. Currently remains on CPAP respiratory rate is 25 , 16/5 with an FiO2 35%. 07/24: Overnight the patient was placed on BiPAP 10/5 refusing BiPAP pulling out IVs. The patient became tachycardic refusing p.o. medications. The patient was placed on a Cardizem infusion currently at 5 mg an hour. Patient is more compliant at this time the patient's BiPAP settings were increased to 15 /5 35% stat ABGs were ordered the patient was noted to have a PCO2 of 89, continues with hypercapnic respiratory failure in the setting of severe COPD. Extensive discussion with family at bedside the patient's sister and daughter provided medical status update on recent transfer to ICU and current standing. Inform family that patient is at risk for for emergent intubation. Repeat ABG pending this evening. 07/25: Patient noted to have episodes of agitation continually removing BiPAP. I discussed with patient the criticality of his illness and possible intubation patient now agrees to wear BiPAP with exception of meals. Patient's diet was advanced to clear liquid noted improvement of chest x-ray patient is noted to have last bowel movement approximately 2 days ago we will continue to monitor and follow-up GI recommendations . Noted electrolyte repletion at this time. PCO2 now in the 60s. 07/26: Patient continues to be noncompliant with BiPAP mask. ABGs obtained noting a PO2 of 45.6. The patient was emergently intubated this afternoon. Chest x-ray and repeat ABG pending at this time. Noted patient's last bowel movement last night. 07/27: Afebrile. Remains on ventilator. Will start tube feeding today. BM noted overnight. Replacing potassium phosphate, calcium chloride x1 now. And magnesium sulfate 07/28: Afebrile. Did not tolerate CPAP trial the same. Tolerating tube feeds today. Last bowel movement yesterday 09/26. Mild ileus on abdominal x-ray today. 07/29: Afebrile. Tolerated CPAP times 3 hours. He is intolerant to P. 2 bowel movements. Abdominal x-ray unchanged but no signs of obstructive or ileus. 07/30: Afebrile. Currently on CPAP trials. Positive BM. No change in neurological status. Increasing metoprolol to 5 mg IV every 6 hours. Subjective 07/31: Again on CPAP trials. Awake and alert on dexmedetomidine drip. Will put on metoprolol tartrate 25 mg every 8 hours and titrate. Positive BM. Recheck KUB in a.m. 08/01. 08/01: Currently tolerating CPAP, but requiring 15 pressure support. Patient had been intubated 3 times this admission, according to the caregiver and go from had to do patient's a total of several intubation in the last 2-3 months. I discussed with the patient was agreeable for tracheostomy, I also discussed with Stephanie patient's daughter and she has given consent for tracheostomy. Plan for tracheostomy tomorrow 08/02: Patient currently on Precedex awake alert not tolerating CPAP trials. Plan for tracheostomy today. Transfuse 1 unit PRBC 1 pack units of platelets prior to trach 08/03: Patient remains calm on the vent currently tolerating pressure support 06/06. Status post tracheostomy yesterday no significant bleeding. Platelet count 103 today. 08/04: Patient placed on CPAP trials this a.m. and continues without difficulty. Precedex infusion currently at 1.5 mcgs/kg/hour. Tentative plan for PEG tube placement procedure on hold awaiting discussion with family, POA. Patient continues to have large bowel movements. Objective Vital Signs / I&O: Vital Signs 08/03/18 14:59 08/03/18 15:34 08/03/18 16:00 Temperature 98.3 F Pulse Rate 96 H 101 H Respiratory Rate 24 27 H Blood Pressure 103/58 L Pulse Oximetry 100 99 98 08/03/18 16:15 08/03/18 16:30 08/03/18 16:45 Temperature Pulse Rate 100 H 100 H 97 H Respiratory Rate 27 H 27 H 28 H Blood Pressure 101/59 L 105/56 L 98/53 L Pulse Oximetry 99 99 98 08/03/18 17:00 08/03/18 18:00 08/03/18 19:00 Temperature Pulse Rate 96 H 96 H 97 H Respiratory Rate 27 H 26 H 28 H Blood Pressure 106/59 L 103/57 L 104/59 L Pulse Oximetry 100 97 100 08/03/18 19:27 08/03/18 20:00 08/03/18 21:00 Temperature 99.3 F Pulse Rate 100 H 109 H 117 H Respiratory Rate 20 29 H 27 H Blood Pressure 91/59 L 113/56 L Pulse Oximetry 100 100 08/03/18 22:00 08/03/18 23:00 08/03/18 23:39 Temperature Pulse Rate 103 H 101 H 98 H Respiratory Rate 29 H 25 H 25 H Blood Pressure 105/56 L 104/55 L Pulse Oximetry 100 100 08/04/18 00:00 08/04/18 00:11 08/04/18 01:00 Temperature 99.1 F Pulse Rate 101 H 100 H Respiratory Rate 25 H 24 27 H Blood Pressure 110/55 L 106/59 L Pulse Oximetry 100 100 100 08/04/18 02:00 08/04/18 03:00 08/04/18 03:32 Temperature Pulse Rate 96 H 93 H 92 H Respiratory Rate 26 H 28 H 25 H Blood Pressure 104/55 L 108/57 L Pulse Oximetry 100 100 08/04/18 04:00 08/04/18 04:10 08/04/18 05:00 Temperature 99.2 F Pulse Rate 97 H 96 H Respiratory Rate 28 H 24 28 H Blood Pressure 108/58 L 103/58 L Pulse Oximetry 100 100 100 08/04/18 06:00 08/04/18 07:00 08/04/18 08:00 Temperature 99.7 F H Pulse Rate 97 H 94 H 94 H Respiratory Rate 28 H 30 H 28 H Blood Pressure 110/59 L 116/58 L 112/60 Pulse Oximetry 100 100 100 08/04/18 08:18 08/04/18 09:00 08/04/18 10:00 Temperature Pulse Rate 98 H 95 H 101 H Respiratory Rate 31 H 29 H 32 H Blood Pressure 119/59 L 118/62 Pulse Oximetry 100 100 100 08/04/18 10:57 08/04/18 11:01 Temperature Pulse Rate 107 H 103 H Respiratory Rate 33 H 26 H Blood Pressure 120/80 Pulse Oximetry 92 L Intake & Output 08/03/18 08/04/18 08/04/18 18:59 06:59 18:59 Intake Total 1956 / 1956 850 / 850 362.5 / 362.5 Output Total 700 / 700 750 / 750 Balance 1256 / 1256 100 / 100 362.5 / 362.5 Intake: IV 1025 / 1025 350 / 350 362.5 / 362.5 Precedex Inj 1,000 MCG In NS 500 / 500 250 / 250 Inj 240 ML @ 0.2 MCG/KG/HR 3.8 mls/hr IV.CONT TITRATE PRN Rx#: [id number] Versed Inj 100 mg In 100 ml @ 2 75 / 75 MG/HR 2 mls/hr IV.CONT TITRATE PRN Rx#:[id number] Ofirmev Inj 1,000 mg In 100 ml 100 / 100 @ 400 mls/hr IV.SIG ONCE ONE Rx #:[id number] Maxipime Inj 2,000 MG In NS Inj 100 / 100 100 / 100 100 / 100 100 ML @ 200 mls/hr IV.SIG Q8H [facility] Rx#:[id number] Vancomycin Inj 1,000 MG In NS 250 / 250 Inj 250 ML @ 250 mls/hr IV.SIG ONCE ONE Rx#:[id number] Vancomycin Inj 1,250 MG In NS 262.5 / 262.5 Inj 250 ML @ 250 mls/hr IV.SIG Q12H [facility] Rx#:[id number] Oral 0 / 0 Tube Feeding 531 / 531 240 / 240 Tube Irrigant 60 / 60 Water Bolus Amount 400 / 400 200 / 200 Output: Urine Amount (Catheter) 700 / 700 750 / 750 Indwelling Temp Sensing 700 / 700 750 / 750 Catheter Other: Date of Last Bowel Movement 07/31/18 08/03/18 # Bowel Movements 0 Result Diagrams: 08/03/18 09:59 08/03/18 04:27 Other Results: Laboratory Results CBC w Diff Cancelled 07/12/18 10:09 WBC 8.9 th/mm3 (4.0-11.0) 08/03/18 09:59 Corrected WBC Cancelled 07/12/18 10:09 RBC 2.60 mil/mm3 (4.50-5.90) L 08/03/18 09:59 Hgb 8.2 gm/dL (13.0-17.0) L 08/03/18 09:59 Hct 23.6 % (39.0-51.0) L 08/03/18 09:59 MCV 90.5 fL (80.0-100.0) D 08/03/18 09:59 MCH 31.4 pg (27.0-34.0) 08/03/18 09:59 MCHC 34.7 % (32.0-36.0) 08/03/18 09:59 RDW 16.5 % (11.6-17.2) 08/03/18 09:59 Plt Count 103 th/mm3 (150-450) L D 08/03/18 09:59 MPV 9.3 fL (7.0-11.0) 08/03/18 09:59 Prelim Diff (Auto) Slide review pending 08/01/18 10:46 Immature Gran % (Auto) Cancelled 07/12/18 10:09 Neut % (Auto) 80.5 % (16.0-70.0) H 08/01/18 10:46 Lymph % (Auto) 13.6 % (9.0-44.0) 08/01/18 10:46 [place] % (Auto) 5.7 % (0.0-8.0) 08/01/18 10:46 Eos % (Auto) 0.1 % (0.0-4.0) 08/01/18 10:46 Baso % (Auto) 0.1 % (0.0-2.0) 08/01/18 10:46 Immature Gran # (Auto) Cancelled 07/12/18 10:09 Neut # (Auto) 6.3 th/mm3 (1.8-7.7) 08/01/18 10:46 Lymph # (Auto) 1.1 th/mm3 (1.0-4.8) 08/01/18 10:46 [place] # (Auto) 0.4 th/mm3 (0.0-0.9) 08/01/18 10:46 Eos # (Auto) 0.0 th/mm3 (0.0-0.4) 08/01/18 10:46 Baso # (Auto) 0.0 th/mm3 (0.0-0.2) 08/01/18 10:46 WBC Differential Manual diff final 08/01/18 10:46 Diff Scan Auto diff confirmed 07/26/18 05:42 Seg Neuts % (Manual) 77 % (16-70) H 08/01/18 10:46 Band Neuts % (Manual) 4 % (0-6) 08/01/18 10:46 Lymphocytes % (Manual) 7 % (9-44) L 08/01/18 10:46 Atypical Lymphs % (Man) Cancelled 07/12/18 10:09 Monocytes % (Manual) 8 % (0-8) 08/01/18 10:46 Eosinophils % (Manual) Cancelled 07/12/18 10:09 Basophils % (Manual) Cancelled 07/12/18 10:09 Metamyelocytes % (Man) 1 % (0-1) 08/01/18 10:46 Myelocytes % (Man) 2 % (0-0) H 08/01/18 10:46 Promyelocytes % (Man) 1 % (0-0) H 08/01/18 10:46 Blast Cells % (Manual) Cancelled 07/12/18 10:09 Plasma Cell % (Manual) Cancelled 07/12/18 10:09 Other Cells % Cancelled 07/12/18 10:09 Abs Neuts (Manual) 6.6 th/mm3 (1.8-7.7) 08/01/18 10:46 Nucleated RBCs/100 WBC 1 /100 WBC (0-0) H 07/31/18 04:57 Differential Comment . 08/01/18 10:46 Hypersegmented Neuts Cancelled 07/12/18 10:09 Smudge Cells Cancelled 07/12/18 10:09 Toxic Granulation Cancelled 07/12/18 10:09 Toxic Vacuolation Cancelled 07/12/18 10:09 Dohle Bodies Cancelled 07/12/18 10:09 Platelet Estimate Low (Normal) L 08/01/18 10:46 Platelet Morphology Normal (Normal) 08/01/18 10:46 RBC Morphology Normal (Normal) 07/06/18 03:29 Dimorphic RBCs Cancelled 07/12/18 10:09 Polychromasia Cancelled 07/12/18 10:09 Basophilic Stippling Moderate (None) H 07/24/18 04:43 Spherocytes Cancelled 07/12/18 10:09 Pappenheimer Bodies Cancelled 07/12/18 10:09 Sickle Cells Cancelled 07/12/18 10:09 Target Cells Cancelled 07/12/18 10:09 Tear Drop Cells Cancelled 07/12/18 10:09 Ovalocytes Cancelled 07/12/18 10:09 Stomatocytes 1+ (None) H 07/24/18 04:43 Helmet Cells Cancelled 07/12/18 10:09 Carlson[place] Bodies Cancelled 07/12/18 10:09 Shankar Cells Cancelled 07/12/18 10:09 Acanthocytes (Spur) Cancelled 07/12/18 10:09 Rouleaux Cancelled 07/12/18 10:09 Keratocytes Cancelled 07/12/18 10:09 Smear Path Review 07/19/18 05:56 Haptoglobin 94 mg/dL (30-200) 07/19/18 15:18 Hematology Comments 07/09/18 09:44 PT 10.0 sec (9.8-11.6) 08/02/18 04:15 INR 1.0 Ratio 08/02/18 04:15 APTT 31.1 sec (23.4-31.7) 07/19/18 15:18 Fibrinogen 154 mg/dL (227-377) L 07/19/18 15:18 Puncture Site Right radial 07/28/18 05:08 Patient Temperature 98.6 07/28/18 05:08 O2 Saturation 95 % (90-100) 07/28/18 05:08 ABG pH 7.54 (7.380-7.420) H* 07/28/18 05:08 ABG pCO2 45 mmHg (38-42) H 07/28/18 05:08 ABG pO2 100 mmHG (61-120) 07/28/18 05:08 ABG HCO3 38 mmol/L (22-26) H 07/28/18 05:08 ABG O2 Content 11.7 Vol % (12.0-20.0) L 07/28/18 05:08 ABG Base Excess 13.8 mmol/L (-2-2) H 07/28/18 05:08 ABG Methemoglobin 2.4 % (0-2) H 07/28/18 05:08 Raymon Test Present 07/28/18 05:08 Hemoglobin 8.7 G/DL (12.0-16.0) L 07/28/18 05:08 Carboxyhemoglobin 1.2 % (0-4) 07/28/18 05:08 O2 Delivery Device Ventilator 07/28/18 05:08 Liter Flow 30.00 L/M 07/26/18 15:55 Vent Setting Prvc/ac 07/28/18 05:08 Inspired O2 35 % 07/28/18 05:08 Critical Value Yes 07/28/18 05:08 Sodium 145 meq/L (136-145) 08/03/18 04:27 Potassium 4.2 meq/L (3.5-5.1) 08/03/18 04:27 Chloride 107 meq/L (98-107) 08/03/18 04:27 Carbon Dioxide 31.8 meq/L (21.0-32.0) 08/03/18 04:27 Anion Gap 6 meq/L (5-15) 08/03/18 04:27 BUN 18 mg/dL (7-18) 08/03/18 04:27 Creatinine 0.73 mg/dL (0.60-1.30) 08/03/18 04:27 Estimated GFR Greater than 89 mL/min (>89) 08/03/18 04:27 POC Glucose 197 mg/dl (68-110) H 08/04/18 13:15 Random Glucose 159 mg/dL (74-106) H 08/03/18 04:27 Lactic Acid 0.9 mmol/L (0.4-2.0) 07/14/18 11:05 Calcium 7.3 mg/dL (8.5-10.1) L* 08/03/18 04:27 Prot Corrected Calcium 8.0 mg/dL (8.5-10.1) L 07/28/18 05:02 Calcium Adj for Albumin 8.1 mg/dL (8.5-10.1) L 08/03/18 04:27 Phosphorus 3.3 mg/dL (2.5-4.9) D 08/01/18 10:46 Magnesium 1.6 mg/dL (1.5-2.5) 08/03/18 04:27 Total Bilirubin 0.6 mg/dL (0.2-1.0) 08/03/18 04:27 AST 39 U/L (15-37) H 08/03/18 04:27 ALT 44 U/L (12-78) 08/03/18 04:27 Alkaline Phosphatase 127 U/L (45-117) H 08/03/18 04:27 Ammonia Less than 10 mcmol/L (11-32) L 07/03/18 04:30 Lactate Dehydrogenase 436 U/L (87-241) H 07/15/18 12:25 Total Creatine Kinase 362 U/L (39-308) H 08/01/18 10:46 CK-MB (CK-2) 2.0 ng/mL (0.5-3.6) 08/01/18 10:46 CK-MB (CK-2) % 0.6 % (0.0-4.0) 08/01/18 10:46 Troponin I Less than 0.02 ng/mL (0.02-0.05) L 07/03/18 04:30 B-Natriuretic Peptide 32 pg/mL (0-100) 06/23/18 13:32 Total Protein 5.7 g/dL (6.4-8.2) L 08/03/18 04:27 Albumin 2.3 g/dL (3.4-5.0) L 08/03/18 04:27 Lipase 61 U/L (73-393) L 08/01/18 10:46 Serotonin Release Assay Negative (NEGATIVE) 07/02/18 05:42 Vitamin A 23 mcg/dL (38-98) L 07/28/18 12:52 Vitamin B12 855 pg/mL (193-986) 07/02/18 13:27 Folate 12.1 ng/mL (3.1-17.5) 07/02/18 13:27 Procalcitonin 0.67 ng/mL (0.00-0.08) H 07/11/18 02:48 Urine Color Yellow (Yellw/Straw) 07/28/18 06:00 Urine Clarity Cloudy (Clear) H 07/28/18 06:00 Urine pH 6.0 (5.0-8.5) 07/28/18 06:00 Ur Specific [place] 1.010 (1.002-1.035) 07/28/18 06:00 Urine Protein 30 mg/dL (Neg-Trace) H 07/28/18 06:00 Urine Glucose (UA) 150 mg/dL (Negative) H 07/28/18 06:00 Urine Ketones Negative mg/dL (Negative) 07/28/18 06:00 Urine Occult Blood Small (Negative) H 07/28/18 06:00 Urine Nitrate Negative (Negative) 07/28/18 06:00 Urine Bilirubin Negative (Negative) 07/28/18 06:00 Urine Urobilinogen Less than 2 mg/dL (Less than 2) 07/28/18 06:00 Ur Leukocyte Esterase Large (Negative) H 07/28/18 06:00 Urine RBC 164 /hpf (0-3) H 07/28/18 06:00 Urine WBC /hpf (0-5) 07/28/18 06:00 Urine WBC Clumps Few (None) H 07/28/18 06:00 Amorphous Sediment Few /hpf (None) H 07/14/18 21:55 Hyaline Casts 1 /lpf (0-3) 06/27/18 17:00 Urine Mucus Few /lpf (Occasional) H 07/28/18 06:00 Urine Yeast Many /hpf (None) H 07/28/18 06:00 Micro UA Comment Cath-culture ind 07/28/18 06:00 Ur Microscopic Review Not Reportable 07/28/18 06:00 Urine Culture Comments Cath-cult indicated 07/28/18 06:00 Urine Eosinophils None seen /HPF (None Seen) 07/10/18 20:50 Ur Random Creatinine 33 mg/dL (27-300) 07/13/18 13:30 Ur Random Sodium 78 meq/L 07/13/18 13:30 Nasal Screen MRSA (PCR) Not detected (Negative) 06/26/18 12:40 Stl C.difficile DNA Amp Negative (Negative) 07/09/18 00:30 St C. diff Tox Epid 027 Negative (Negative) 07/09/18 00:30 Heparin Dep Plt Ab OD 4.309 U/mL (0.000-1.0) H 06/30/18 11:30 Hep-Induced Plt Ab [place] Positive (Negative) H 06/30/18 11:30 ANNMARIE UFH Low Dose 0.1 3 %release (2.1-21.7) 07/02/18 05:42 ANNMARIE UFH Low Dose 0.5 2 %release (2.1-21.7) 07/02/18 05:42 ANNMARIE UFH High Dose 100 3 %release (2.1-21.7) 07/02/18 05:42 Acetylchol Rcpt Bind Ab Less than 0.30 nmol/L 07/24/18 16:24 Hepatitis A Ab Total Nonreactive 07/22/18 15:53 Hep Bs Antibody Less than 3.1 mIU/mL 07/22/18 15:53 Hep B Core IgM Ab Nonreactive (Nonreactive) 07/22/18 15:53 Hepatitis Be Antigen Nonreactive 07/22/18 15:53 Hepatitis C Antibody Nonreactive (Nonreactive) 07/22/18 15:53 Blood Type O Positive 08/02/18 08:33 Antibody Screen Negative 08/02/18 08:33 MTS Gel Crossmatch See Detail 08/02/18 08:33 Bld Prod Order Comment 08/02/18 08:33 Impressions Abdomen Ultrasound 06/21/18 00:00 CONCLUSION: 1. No ascites is identified within the abdomen. Abdomen/Bladder Ultrasound 06/28/18 00:00 CONCLUSION: 1. Echogenic kidneys characteristic of medical renal disease. No hydronephrosis. Bladder decompressed by Moreno Chest CTA 07/02/18 00:00 CONCLUSION: 1. No pulmonary embolus. 2. Diffuse but basilar predominant bilateral airspace disease. 3. Endotracheal and endobronchial secretions are demonstrated. 4. Moderate emphysema. 5. Left ventricular hypertrophy. Abdomen/Pelvis CT 07/10/18 08:31 CONCLUSION: 1. There is gas and fluid distending the colon. The patient has a rectal tube in place however the rectal tube is kinked back on itself and occluded. The overall size of the colon has mildly increased when compared to previous exam. The small bowel is normal in caliber. 2. Interval development of a small left basilar effusion and atelectasis. Venous Doppler Study 07/15/18 00:00 CONCLUSION: 1. Limited suboptimal examination. 2. Nonocclusive thrombus in the jugular vein. Abdomen X-Ray 08/01/18 09:59 CONCLUSION: NG tube in place. Mild gaseous distention of portions of colon. Chest X-Ray 08/03/18 06:00 CONCLUSION: Stable bibasilar airspace opacity representing either atelectasis or airspace consolidation. There is also a questionable hazy opacity at the right base which could indicate a small pleural effusion. Objective Remarks: GENERAL: 73-year-old chronically ill appearing elderly -[place] male lying in bed, awake alert status post trach SKIN: Warm and dry HEAD: Normocephalic. EYES: PERRL NECK: Supple, trachea midline. New tracheostomy with minimal dry blood around the site CARDIOVASCULAR: Normal rhythm. S1, S2. No S4. No murmur RESPIRATORY: Diminished breath sounds in bases noted. B/L equal air entry, patient. tolerating CPAP 06/06 GASTROINTESTINAL: Abdomen less distended, non-tender, no guarding, bowel sounds present MUSCULOSKELETAL: Trace to bilateral upper/ lower extremity edema, warm and well- perfused NEURO: Alert awake on the vent Follows commands by moving upper and lower extremities withdraws to pain bilateral upper and lower extremities. Assessment and Plan - Assessment and Plan Plan: NEURO/Psych: Altered mental status due to CO2 retention -Wean to DC Precedex as tolerated -F/U acetylcholine receptor and autoantibodies was negative RESP: Hypercapnic respiratory failure Acute COPD exacerbation -Extubated 06/29. Reintubated 07/02 extubated again 07/07, reintubated 07/26 -Status post tracheostomy yesterday 08/02/2018. CPAP trial with T-piece up to 2 hours today -Albuterol/ipratropium aerosols every 4 hours scheduled and albuterol aerosols every 2 hours as needed -Continue steroids IV, Inhaled budesonide CV: Essential hypertension - Monitor HR and BP keep MAP>65mmHg - Toprol tartrate 25 mg by tube every 8 hours GI: Colonic ileus-resolved -KUB 07/13: Stable nonobstructive colonic distention. -Given Neostigmine 07/11. -s/p repeat decompressive colonoscopy 07/10 and 07/15 -Continue pantoprazole -On docusate sodium/senna 1 tablet twice daily, lactulose 30 cc 4 times daily, polyethylene glycol 17 g daily. Fleets enema daily. Naltrexone 12 mg subcu daily -NG tube. Tube feeding with Glucerna 1.5 goal 45 cc daily per rectum recent recommendation -Abdominal x-ray revealed nonspecific bowel gas pattern. -Patient will need long-term trach -consult GI for PEG tube placement-08/04 placed on hold secondary to the need for discussion with patient's POA FEN//renal: Hypernatremia Hypophosphatemia Hypopotassemia -Monitor renal function, I/O's, avoid nephrotoxins -Renal function stable -Renal- Dr. Figueroa has followed -Repletion of electrolytes per protocol -Free water 200 cc every 6 hours ID: -Off abx monitor for signs of infections (Fever, WBC) WBC stable -BC and urine cx from 07/11- NG -07/02 BC: NGTS, sputum cx 07/02:normal resp justyn -ID is following- Dr. Brown PRN -Urine culture from 07/28/2018 growing Koki. Repeat cultures sent 08/02/2018 after replacing Moreno HEME: Normocytic anemia Thrombocytopenia -Monitor CBC, coags, Hep PLT is positive. ANNMARIE negative. Hematology is following. Off argatroban drip -s/p 2U PRBCs on 07/16, Hgb 8.8, used for hemoglobin less than 7 -Give 1 unit of PRBC and 1 pack units of platelets today in anticipation of tracheostomy -Stable thrombocytopenia-avoid medications that precipitate thrombocytopenia ENDO: -Sliding scale insulin medium scale aspart insulin every 4 hours. Continue insulin detemir 10 units twice daily PROPH: -Bilateral lower extremity SCDs. PPI -Doppler US LE negative DVT 07/02 -Continue Lovenox 40 mg daily LINES: -Utilize peripheral IVs Level 2 follow-up
--- NOTE | 2018-08-04 18:50 | P.PNID ---
Subjective Remarks: doing OK no fever stooling Bl clx with GPC 1/4 bottlesd Antibiotics: cefepime vancomycin Allergies/Adverse Reactions: Allergies shellfish derived Allergy (Severe, Verified 10/10/17 13:48) Anaphylaxis Objective Vital Signs 08/03/18 19:00 08/03/18 19:27 08/03/18 20:00 Temperature 99.3 F Pulse Rate 97 H 100 H 109 H Respiratory Rate 28 H 20 29 H Blood Pressure 104/59 L 91/59 L Pulse Oximetry 100 100 08/03/18 21:00 08/03/18 22:00 08/03/18 23:00 Temperature Pulse Rate 117 H 103 H 101 H Respiratory Rate 27 H 29 H 25 H Blood Pressure 113/56 L 105/56 L 104/55 L Pulse Oximetry 100 100 100 08/03/18 23:39 08/04/18 00:00 08/04/18 00:11 Temperature 99.1 F Pulse Rate 98 H 101 H Respiratory Rate 25 H 25 H 24 Blood Pressure 110/55 L Pulse Oximetry 100 100 08/04/18 01:00 08/04/18 02:00 08/04/18 03:00 Temperature Pulse Rate 100 H 96 H 93 H Respiratory Rate 27 H 26 H 28 H Blood Pressure 106/59 L 104/55 L 108/57 L Pulse Oximetry 100 100 100 08/04/18 03:32 08/04/18 04:00 08/04/18 04:10 Temperature 99.2 F Pulse Rate 92 H 97 H Respiratory Rate 25 H 28 H 24 Blood Pressure 108/58 L Pulse Oximetry 100 100 08/04/18 05:00 08/04/18 06:00 08/04/18 07:00 Temperature Pulse Rate 96 H 97 H 94 H Respiratory Rate 28 H 28 H 30 H Blood Pressure 103/58 L 110/59 L 116/58 L Pulse Oximetry 100 100 100 08/04/18 08:00 08/04/18 08:18 08/04/18 09:00 Temperature 99.7 F H Pulse Rate 94 H 98 H 95 H Respiratory Rate 28 H 31 H 29 H Blood Pressure 112/60 119/59 L Pulse Oximetry 100 100 100 08/04/18 10:00 08/04/18 10:57 08/04/18 11:01 Temperature Pulse Rate 101 H 107 H 103 H Respiratory Rate 32 H 33 H 26 H Blood Pressure 118/62 120/80 Pulse Oximetry 100 92 L 08/04/18 12:00 08/04/18 13:00 08/04/18 14:00 Temperature 99.1 F Pulse Rate 102 H 106 H 100 H Respiratory Rate 23 25 H 28 H Blood Pressure 118/58 L 124/61 116/58 L Pulse Oximetry 97 100 99 08/04/18 15:00 08/04/18 15:49 08/04/18 16:00 Temperature 100.7 F H Pulse Rate 106 H 104 H 105 H Respiratory Rate 25 H 28 H 34 H Blood Pressure 105/57 L 104/64 Pulse Oximetry 93 L 94 L 95 08/04/18 18:00 Temperature Pulse Rate 94 H Respiratory Rate Blood Pressure Pulse Oximetry Intake & Output 08/03/18 08/04/18 08/04/18 18:59 06:59 18:59 Intake Total 1956 / 1956 850 / 850 1095.0 / 1095.0 Output Total 700 / 700 750 / 750 750 / 750 Balance 1256 / 1256 100 / 100 345.0 / 345.0 Intake: IV 1025 / 1025 350 / 350 975.0 / 975.0 Precedex Inj 1,000 MCG In NS 500 / 500 250 / 250 250 / 250 Inj 240 ML @ 0.2 MCG/KG/HR 3.8 mls/hr IV.CONT TITRATE PRN Rx#: [id number] Versed Inj 100 mg In 100 ml @ 2 75 / 75 MG/HR 2 mls/hr IV.CONT TITRATE PRN Rx#:[id number] Ofirmev Inj 1,000 mg In 100 ml 100 / 100 @ 400 mls/hr IV.SIG ONCE ONE Rx #:[id number] Maxipime Inj 2,000 MG In NS Inj 100 / 100 100 / 100 200 / 200 100 ML @ 200 mls/hr IV.SIG Q8H WOLF Rx#:[id number] Vancomycin Inj 1,000 MG In NS 250 / 250 Inj 250 ML @ 250 mls/hr IV.SIG ONCE ONE Rx#:[id number] Vancomycin Inj 1,250 MG In NS 525.0 / 525.0 Inj 250 ML @ 250 mls/hr IV.SIG Q12H WOLF Rx#:[id number] Oral 0 / 0 Tube Feeding 531 / 531 240 / 240 Tube Irrigant 60 / 60 120 / 120 Water Bolus Amount 400 / 400 200 / 200 Output: Urine Amount (Catheter) 700 / 700 750 / 750 750 / 750 Indwelling Temp Sensing 700 / 700 750 / 750 750 / 750 Catheter Other: Date of Last Bowel Movement 07/31/18 08/04/18 # Bowel Movements 0 # Incontinent Bowel Movements 1 08/03/18 14:30 Blood - Peripheral Aerobic Blood Culture - Preliminary No growth in 1 day 08/03/18 14:30 Blood - Peripheral Anaerobic Blood Culture - Preliminary gram positive cocci 08/03/18 14:56 Blood - Peripheral Aerobic Blood Culture - Preliminary No growth in 1 day 08/03/18 14:56 Blood - Peripheral Anaerobic Blood Culture - Preliminary No growth in 1 day 08/02/18 09:30 Catheterized Urine Urine Culture - Final Enterococcus faecalis Klebsiella pneumoniae Lab - Hematology Results 08/03/18 09:59 WBC 8.9 RBC 2.60 L Hgb 8.2 L Hct 23.6 L MCV 90.5 D MCH 31.4 MCHC 34.7 RDW 16.5 Plt Count 103 L D MPV 9.3 Lab - Chemistry Results 08/02/18 08/02/18 08/03/18 20:25 23:40 03:48 Sodium Potassium Chloride Carbon Dioxide Anion Gap BUN Creatinine Estimated GFR POC Glucose 193 H 222 H 183 H Random Glucose Calcium Calcium Adj for Albumin Magnesium Total Bilirubin AST ALT Alkaline Phosphatase Total Protein Albumin 08/03/18 08/03/18 08/03/18 04:27 08:18 12:43 Sodium 145 Potassium 4.2 Chloride 107 Carbon Dioxide 31.8 Anion Gap 6 BUN 18 Creatinine 0.73 Estimated GFR Greater than 89 POC Glucose 109 205 H Random Glucose 159 H Calcium 7.3 L* Calcium Adj for Albumin 8.1 L Magnesium 1.6 Total Bilirubin 0.6 AST 39 H ALT 44 Alkaline Phosphatase 127 H Total Protein 5.7 L Albumin 2.3 L 08/03/18 08/03/18 08/03/18 16:58 20:05 23:47 Sodium Potassium Chloride Carbon Dioxide Anion Gap BUN Creatinine Estimated GFR POC Glucose 158 H 177 H 204 H Random Glucose Calcium Calcium Adj for Albumin Magnesium Total Bilirubin AST ALT Alkaline Phosphatase Total Protein Albumin 08/04/18 08/04/18 08/04/18 05:17 09:00 13:15 Sodium Potassium Chloride Carbon Dioxide Anion Gap BUN Creatinine Estimated GFR POC Glucose 145 H 145 H 197 H Random Glucose Calcium Calcium Adj for Albumin Magnesium Total Bilirubin AST ALT Alkaline Phosphatase Total Protein Albumin 08/04/18 16:05 Sodium Potassium Chloride Carbon Dioxide Anion Gap BUN Creatinine Estimated GFR POC Glucose 132 H Random Glucose Calcium Calcium Adj for Albumin Magnesium Total Bilirubin AST ALT Alkaline Phosphatase Total Protein Albumin Imaging: ITS Impressions Abdomen Ultrasound 06/21/18 00:00 CONCLUSION: 1. No ascites is identified within the abdomen. Abdomen/Bladder Ultrasound 06/28/18 00:00 CONCLUSION: 1. Echogenic kidneys characteristic of medical renal disease. No hydronephrosis. Bladder decompressed by Mora Chest CTA 07/02/18 00:00 CONCLUSION: 1. No pulmonary embolus. 2. Diffuse but basilar predominant bilateral airspace disease. 3. Endotracheal and endobronchial secretions are demonstrated. 4. Moderate emphysema. 5. Left ventricular hypertrophy. Abdomen/Pelvis CT 07/10/18 08:31 CONCLUSION: 1. There is gas and fluid distending the colon. The patient has a rectal tube in place however the rectal tube is kinked back on itself and occluded. The overall size of the colon has mildly increased when compared to previous exam. The small bowel is normal in caliber. 2. Interval development of a small left basilar effusion and atelectasis. Venous Doppler Study 07/15/18 00:00 CONCLUSION: 1. Limited suboptimal examination. 2. Nonocclusive thrombus in the jugular vein. Abdomen X-Ray 08/01/18 09:59 CONCLUSION: NG tube in place. Mild gaseous distention of portions of colon. Chest X-Ray 08/03/18 06:00 CONCLUSION: Stable bibasilar airspace opacity representing either atelectasis or airspace consolidation. There is also a questionable hazy opacity at the right base which could indicate a small pleural effusion. Physical Exam: GENERAL: NAD SKIN: Warm and dry. no rash HEAD: Atraumatic. Normocephalic. EYES: Pupils equal and round. No scleral icterus. No injection or drainage. CARDIOVASCULAR: Regular rate and rhythm. RESPIRATORY: No accessory muscle use. Clear to auscultation. Breath sounds equal bilaterally. GASTROINTESTINAL: Abdomen soft, + tender, markedly distended and tympanic. Hepatic and splenic margins not palpable. : mora in place MUSCULOSKELETAL: Extremities without clubbing, cyanosis, or edema. No obvious deformities. NEUROLOGICAL: Awake and alert. 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
--- NOTE | 2018-08-04 19:15 | P.PNPL ---
Subjective Interval history: 73 YOAA male with COPD, 02 dependent Follows at [facility] Admitted with AMS, COPD exac Reintubated 07/26 due to worsening resp status Had Trach, doing well had large BM Awake, follows commands On CPAP 14/01 Physical Exam Vital signs: Vital Signs 08/03/18 19:27 08/03/18 20:00 08/03/18 21:00 Temperature 99.3 F Pulse Rate 100 H 109 H 117 H Respiratory Rate 20 29 H 27 H Blood Pressure 91/59 L 113/56 L Pulse Oximetry 100 100 08/03/18 22:00 08/03/18 23:00 08/03/18 23:39 Temperature Pulse Rate 103 H 101 H 98 H Respiratory Rate 29 H 25 H 25 H Blood Pressure 105/56 L 104/55 L Pulse Oximetry 100 100 08/04/18 00:00 08/04/18 00:11 08/04/18 01:00 Temperature 99.1 F Pulse Rate 101 H 100 H Respiratory Rate 25 H 24 27 H Blood Pressure 110/55 L 106/59 L Pulse Oximetry 100 100 100 08/04/18 02:00 08/04/18 03:00 08/04/18 03:32 Temperature Pulse Rate 96 H 93 H 92 H Respiratory Rate 26 H 28 H 25 H Blood Pressure 104/55 L 108/57 L Pulse Oximetry 100 100 08/04/18 04:00 08/04/18 04:10 08/04/18 05:00 Temperature 99.2 F Pulse Rate 97 H 96 H Respiratory Rate 28 H 24 28 H Blood Pressure 108/58 L 103/58 L Pulse Oximetry 100 100 100 08/04/18 06:00 08/04/18 07:00 08/04/18 08:00 Temperature 99.7 F H Pulse Rate 97 H 94 H 94 H Respiratory Rate 28 H 30 H 28 H Blood Pressure 110/59 L 116/58 L 112/60 Pulse Oximetry 100 100 100 08/04/18 08:18 08/04/18 09:00 08/04/18 10:00 Temperature Pulse Rate 98 H 95 H 101 H Respiratory Rate 31 H 29 H 32 H Blood Pressure 119/59 L 118/62 Pulse Oximetry 100 100 100 08/04/18 10:57 08/04/18 11:01 08/04/18 12:00 Temperature 99.1 F Pulse Rate 107 H 103 H 102 H Respiratory Rate 33 H 26 H 23 Blood Pressure 120/80 118/58 L Pulse Oximetry 92 L 97 08/04/18 13:00 08/04/18 14:00 08/04/18 15:00 Temperature Pulse Rate 106 H 100 H 106 H Respiratory Rate 25 H 28 H 25 H Blood Pressure 124/61 116/58 L 105/57 L Pulse Oximetry 100 99 93 L 08/04/18 15:49 08/04/18 16:00 08/04/18 18:00 Temperature 100.7 F H Pulse Rate 104 H 105 H 94 H Respiratory Rate 28 H 34 H Blood Pressure 104/64 Pulse Oximetry 94 L 95 Intake & Output 08/04/18 08/04/18 08/05/18 06:59 18:59 06:59 Intake Total 850 / 850 1095.0 / 1095.0 Output Total 750 / 750 750 / 750 Balance 100 / 100 345.0 / 345.0 Intake: IV 350 / 350 975.0 / 975.0 Precedex Inj 1,000 MCG In NS 250 / 250 250 / 250 Inj 240 ML @ 0.2 MCG/KG/HR 3.8 mls/hr IV.CONT TITRATE PRN Rx#: [id number] Maxipime Inj 2,000 MG In NS Inj 100 / 100 200 / 200 100 ML @ 200 mls/hr IV.SIG Q8H WOLF Rx#:[id number] Vancomycin Inj 1,250 MG In NS 525.0 / 525.0 Inj 250 ML @ 250 mls/hr IV.SIG Q12H WOLF Rx#:[id number] Tube Feeding 240 / 240 Tube Irrigant 60 / 60 120 / 120 Water Bolus Amount 200 / 200 Output: Urine Amount (Catheter) 750 / 750 750 / 750 Indwelling Temp Sensing 750 / 750 750 / 750 Catheter Other: Date of Last Bowel Movement 08/04/18 # Incontinent Bowel Movements 1 GENERAL: Obese AA male, On trach collar SKIN: Warm and dry. HEAD: Normocephalic. EYES: No scleral icterus. No injection or drainage. NECK: Supple, trachea midline. No JVD or lymphadenopathy. CARDIOVASCULAR: Regular rate and rhythm without murmurs, gallops, or rubs. has trach. RESPIRATORY: Breath sounds equal bilaterally. No accessory muscle use. GASTROINTESTINAL: Abdomen soft, non-tender, distended. MUSCULOSKELETAL: No cyanosis, or edema. BACK: Nontender without obvious deformity. No CVA tenderness. - Urinary Catheter Management Indwelling Urethral Catheter Cath placed during this visit: yes, but has since been removed by the nurse Reason for continuing: Acute urinary retention Insertion date: 07/14/18 Insertion time: 21:55 Removal date: 08/02/18 Removal time: 07:59 Straight Cath placed during this visit: no Condom Cath placed during this visit: no Indwelling Temp Sensing Catheter Cath placed during this visit: yes Reason for continuing: Acute urinary retention Insertion date: 08/02/18 Insertion time: 08:00 Assessment and Plan - Plan IMPRESSION: Hypercapnoic RF, COPD exac AMS improved 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 Abdominal distension, s/p decompression. Ileus PLAN: Cont vent support Daily CPAP trial Trach care Sedation with Precedex Aerosol nebs Supplement 02 Monitor BS
[2018-08-05] MEDS: Pantoprazole Inj 40 MG Vial IV.PUSH SCH ×2 (01:30→14:02)
[2018-08-05] MEDS: Insulin NovoLOG Aspart Correctional Sugar Inj SQ SCH ×6 (02:05→21:32)
[2018-08-05] MEDS: Artificial Tears Opth Drops 15 ML Bottle EACH EYE SCH ×3 (02:05→16:22)
[2018-08-05] MEDS: Vancomycin Inj 1,250 MG in Sodium Chlor 0.9% Inj 250 ML IV.SIG SCH ×2 (02:30→14:43)
[2018-08-05] MEDS: Dexmedetomidine Inj 1,000 MCG in Sodium Chlor 0.9% Inj 240 ML IV.CONT PRN ×2 (07:32→18:43)
[2018-08-05] MEDS: Sennosides Liq 8.8 MG/5 ML UDC NG/OG SCH ×2 (08:25→21:31)
[2018-08-05] MEDS: Multivitamin/Minerals Therapeutic Tablet PO SCH (08:25)
[2018-08-05] MEDS: Calcium/Vitamin D 250/125 MG Tablet PO SCH (08:25)
[2018-08-05] MEDS: Ascorbic Acid 500 MG Tablet PO SCH (08:25)
[2018-08-05] MEDS: Docusate Sodium Liq 100 MG/10 ML UDC NG/OG SCH ×2 (08:25→21:31)
[2018-08-05] MEDS: Bisacodyl 10 MG Supp RECTAL SCH (08:25)
[2018-08-05] MEDS: Polyethylene Glycol 3350 17 GM Packet PO SCH (08:25)
[2018-08-05] MEDS: Methylnaltrexone Inj 12 MG/0.6 ML Vial SQ SCH (08:25)
[2018-08-05] MEDS: Insulin Detemir Inj 1,000 UNIT/10 ML Vial SQ SCH ×2 (08:26→21:32)
[2018-08-05] MEDS: Enoxaparin Inj 40 MG/0.4 ML Syringe SQ SCH (08:26)
[2018-08-05] MEDS: Metoprolol Tartrate 25 MG Tablet PO SCH ×3 (08:26→18:41)
--- NOTE | 2018-08-05 08:58 | P.PNPL ---
Subjective Interval history: 73 YOAA male with COPD, 02 dependent Follows at [facility] Admitted with AMS, COPD exac Reintubated 07/26 due to worsening resp status Had Trach, doing well Tolerated CPAP 14/01 all night had BM Physical Exam Vital signs: Vital Signs 08/04/18 09:00 08/04/18 10:00 08/04/18 10:57 Temperature Pulse Rate 95 H 101 H 107 H Respiratory Rate 29 H 32 H 33 H Blood Pressure 119/59 L 118/62 Pulse Oximetry 100 100 92 L 08/04/18 11:01 08/04/18 12:00 08/04/18 13:00 Temperature 99.1 F Pulse Rate 103 H 102 H 106 H Respiratory Rate 26 H 23 25 H Blood Pressure 120/80 118/58 L 124/61 Pulse Oximetry 97 100 08/04/18 14:00 08/04/18 15:00 08/04/18 15:49 Temperature Pulse Rate 100 H 106 H 104 H Respiratory Rate 28 H 25 H 28 H Blood Pressure 116/58 L 105/57 L Pulse Oximetry 99 93 L 94 L 08/04/18 16:00 08/04/18 18:00 08/04/18 20:00 Temperature 100.7 F H 99.7 F H Pulse Rate 105 H 94 H 93 H Respiratory Rate 34 H 29 H Blood Pressure 104/64 112/55 L Pulse Oximetry 95 100 08/04/18 20:51 08/04/18 22:00 08/04/18 23:32 Temperature Pulse Rate 100 H 94 H 93 H Respiratory Rate 19 24 Blood Pressure Pulse Oximetry 99 08/04/18 23:34 08/05/18 00:00 08/05/18 02:00 Temperature 98.9 F Pulse Rate 93 H 81 Respiratory Rate 24 27 H Blood Pressure 119/60 Pulse Oximetry 100 95 08/05/18 03:34 08/05/18 04:00 08/05/18 06:00 Temperature 99.4 F Pulse Rate 90 93 H 78 Respiratory Rate 23 28 H Blood Pressure 92/52 L Pulse Oximetry 100 100 08/05/18 08:05 Temperature Pulse Rate 102 H Respiratory Rate 30 H Blood Pressure Pulse Oximetry 94 L Intake & Output 08/04/18 08/05/18 08/05/18 18:59 06:59 18:59 Intake Total 1095.0 / 1095.0 300 / 300 612.5 / 612.5 Output Total 750 / 750 550 / 550 Balance 345.0 / 345.0 -250 / -250 612.5 / 612.5 Weight 79.8 kg Intake: IV 975.0 / 975.0 612.5 / 612.5 Precedex Inj 1,000 MCG In NS 250 / 250 250 / 250 Inj 240 ML @ 0.2 MCG/KG/HR 3.8 mls/hr IV.CONT TITRATE PRN Rx#: [id number] Maxipime Inj 2,000 MG In NS Inj 200 / 200 100 / 100 100 ML @ 200 mls/hr IV.SIG Q8H WOLF Rx#:[id number] Vancomycin Inj 1,250 MG In NS 525.0 / 525.0 262.5 / 262.5 Inj 250 ML @ 250 mls/hr IV.SIG Q12H WOLF Rx#:[id number] Tube Irrigant 120 / 120 Water Bolus Amount 300 / 300 Output: Urine Amount (Catheter) 750 / 750 550 / 550 Indwelling Temp Sensing 750 / 750 550 / 550 Catheter Other: Date of Last Bowel Movement 08/04/18 08/05/18 # Incontinent Bowel Movements 1 2 GENERAL: Obese AA male, NAD SKIN: Warm and dry. HEAD: Normocephalic. EYES: No scleral icterus. No injection or drainage. NECK: Supple, trachea midline. No JVD or lymphadenopathy. CARDIOVASCULAR: Regular rate and rhythm without murmurs, gallops, or rubs. RESPIRATORY: Breath sounds equal bilaterally. No accessory muscle use. GASTROINTESTINAL: Abdomen soft, non-tender, distended. MUSCULOSKELETAL: No cyanosis, or edema. BACK: Nontender without obvious deformity. No CVA tenderness. - Urinary Catheter Management Indwelling Urethral Catheter Cath placed during this visit: yes, but has since been removed by the nurse Reason for continuing: Acute urinary retention Insertion date: 07/14/18 Insertion time: 21:55 Removal date: 08/02/18 Removal time: 07:59 Straight Cath placed during this visit: no Condom Cath placed during this visit: no Indwelling Temp Sensing Catheter Cath placed during this visit: yes Reason for continuing: Acute urinary retention Insertion date: 08/02/18 Insertion time: 08:00 Assessment and Plan - Plan IMPRESSION: Hypercapnoic RF, COPD exac AMS improved 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 Abdominal distension, s/p decompression. Ileus PLAN: Cont CPAP 14/01 Trach care Sedation with Precedex Aerosol nebs Supplement 02 Monitor BS
[2018-08-05 09:11] LABS: Baso % (Auto) 0.3 % (0.0-2.0); Hematocrit 22.4 % (39.0-51.0); Hemoglobin 7.6 gm/dL (13.0-17.0); Lymph # (Auto) 1.4 th/mm3 (1.0-4.8); Lymph % (Auto) 13.5 % (9.0-44.0); Mean Corpuscular HGB Conc 33.8 % (32.0-36.0); Mean Corpuscular Hemoglobin 31.6 pg (27.0-34.0); Mean Corpuscular Volume 93.5 fL (80.0-100.0); Mean Platelet Volume 9.5 fL (7.0-11.0); Mono # (Auto) 0.7 th/mm3 (0.0-0.9); Mono % (Auto) 6.5 % (0.0-8.0); Neut # (Auto) 8.3 th/mm3 (1.8-7.7); Neut % (Auto) 79.7 % (16.0-70.0); Platelet Count 117 th/mm3 (150-450); White Blood Count 10.4 th/mm3 (4.0-11.0)
[2018-08-05 09:33] LABS: Glomerular Filtration Rate Greater Than 89 mL/min (>89)
[2018-08-05] MEDS ORDERED: Pharmacy Ordered Lab Info OTHER ONE (13:45)
[2018-08-05 15:01] LABS: Anion Gap 6 meq/L (5-15); Blood Urea Nitrogen 16 mg/dL (7-18); Calcium 7.5 mg/dL (8.5-10.1); Carbon Dioxide 30.5 meq/L (21.0-32.0); Chloride 110 meq/L (98-107); Glomerular Filtration Rate Greater Than 89 mL/min (>89); Glucose,Random 109 mg/dL (74-106); Magnesium 1.6 mg/dL (1.5-2.5); Phosphorus 3.2 mg/dL (2.5-4.9); Potassium 3.1 meq/L (3.5-5.1); Sodium 146 meq/L (136-145)
[2018-08-05 15:06] LABS: Vancomycin,Trough 33.1 mcg/mL (5.0-10.0)
--- NOTE | 2018-08-05 15:56 | P.PNPAL ---
Reason for Visit Reason for visit: a. To assist with evaluation and management of symptoms including: pain, dyspnea b. To assist medical decision maker(s) with: better understanding of current medical conditions; weighing benefits/burdens of medical treatment options; making medical treatment decisions. Subjective Subjective/Interval History: Follow up visit for symptom management of pain and dyspnea and clarification of medical treatment. Mr. Curry seen in intensive care, room 519, with girlfriend at bedside. Tolerating spontaneous breathing trials status post tracheostomy on 08/02/2018. Follow-up chest x-ray on 08/03/2018 showed stable bibasilar airspace opacity representing either atelectasis or airspace consolidation. There was also a questionable hazy opacity at the right base which could indicate a small pleural effusion. Clinical data: * WBC 10.4, hemoglobin 7.6, hematocrit 22.4, platelets 117, neutrophils 79.7% * Sodium: 146, potassium 3.1, chloride 110, carbon dioxide 30.5, glucose 109, calcium 7.5, phosphorus 3.2, magnesium 1.6 * BUN: 16, creatinine 0.76, GFR >89 * Blood cultures from 08/03/2018 growing gram-positive cocci/staph coag negative Spoke with patient's girlfriend (Mariam)at bedside and again privately. Healthcare surrogate designation form completed 07/01/2018 designates the patient's sister , Evita Og, as the healthcare surrogate decision-maker. However, she has been out of town for approximately 2 weeks and will returning tomorrow. During Evita's absence, provisional healthcare proxy decision making reverted back to the patient daughter. Messages left with patient's sister (Sara); awaiting return phone call. Spoke with patient's daughter, Stephanie, on 08/04/2018. She will be arriving in [place] later this week. Tentative plan for PEG tube placement procedure has been placed on hold pending further conversations with patient's family. Family/Friend Interactions: See interval history Advance Directives Living Will: Never completed Health Care Surrogate: Never completed Durable Power of Vamp Presser: Never completed Objective Vital Signs: Vital Signs 08/04/18 15:49 08/04/18 16:00 08/04/18 17:00 Temperature 100.7 F H Pulse Rate 104 H 105 H 100 H Respiratory Rate 28 H 34 H 27 H Blood Pressure 104/64 114/60 Pulse Oximetry 94 L 95 100 08/04/18 18:00 08/04/18 19:00 08/04/18 20:00 Temperature 99.7 F H Pulse Rate 94 H 96 H 99 H Respiratory Rate 24 30 H 29 H Blood Pressure 112/58 L 111/60 112/55 L Pulse Oximetry 100 100 100 08/04/18 20:51 08/04/18 21:00 08/04/18 22:00 Temperature Pulse Rate 100 H 96 H 94 H Respiratory Rate 19 30 H 27 H Blood Pressure 99/57 L 119/60 Pulse Oximetry 99 100 100 08/04/18 23:00 08/04/18 23:32 08/04/18 23:34 Temperature Pulse Rate 90 93 H Respiratory Rate 21 24 24 Blood Pressure 118/56 L Pulse Oximetry 99 100 08/05/18 00:00 08/05/18 01:00 08/05/18 02:00 Temperature 98.9 F Pulse Rate 93 H 84 81 Respiratory Rate 27 H 23 22 Blood Pressure 119/60 112/59 L 103/55 L Pulse Oximetry 100 100 100 08/05/18 03:00 08/05/18 03:01 08/05/18 03:34 Temperature Pulse Rate 95 H 97 H 90 Respiratory Rate 30 H 26 H 23 Blood Pressure 89/63 L Pulse Oximetry 94 L 99 100 08/05/18 04:00 08/05/18 05:00 08/05/18 06:00 Temperature 99.4 F Pulse Rate 93 H 85 78 Respiratory Rate 28 H 32 H 24 Blood Pressure 92/52 L 94/55 L 104/60 Pulse Oximetry 100 100 100 08/05/18 07:00 08/05/18 08:00 08/05/18 08:05 Temperature 99.1 F Pulse Rate 96 H 101 H 102 H Respiratory Rate 29 H 29 H 30 H Blood Pressure 118/57 L 119/60 Pulse Oximetry 72 L 67 L 94 L 08/05/18 09:00 08/05/18 10:00 08/05/18 10:40 Temperature Pulse Rate 87 83 81 Respiratory Rate 29 H 27 H 27 H Blood Pressure 92/55 L 96/55 L Pulse Oximetry 96 99 08/05/18 11:00 08/05/18 12:00 08/05/18 12:30 Temperature 98.3 F Pulse Rate 81 79 Respiratory Rate 28 H 24 Blood Pressure 99/54 L 95/56 L Pulse Oximetry 100 99 98 08/05/18 13:00 08/05/18 14:00 Temperature Pulse Rate 85 88 Respiratory Rate 28 H 27 H Blood Pressure 107/57 L 102/57 L Pulse Oximetry 98 98 Intake & Output 08/04/18 08/05/18 08/05/18 18:59 06:59 18:59 Intake Total 1095.0 / 1095.0 300 / 300 712.5 / 712.5 Output Total 750 / 750 550 / 550 Balance 345.0 / 345.0 -250 / -250 712.5 / 712.5 Weight 79.8 kg Intake: IV 975.0 / 975.0 712.5 / 712.5 Precedex Inj 1,000 MCG In NS 250 / 250 250 / 250 Inj 240 ML @ 0.2 MCG/KG/HR 3.8 mls/hr IV.CONT TITRATE PRN Rx#: [id number] Maxipime Inj 2,000 MG In NS Inj 200 / 200 200 / 200 100 ML @ 200 mls/hr IV.SIG Q8H WOLF Rx#:[id number] Vancomycin Inj 1,250 MG In NS 525.0 / 525.0 262.5 / 262.5 Inj 250 ML @ 250 mls/hr IV.SIG Q12H WOLF Rx#:[id number] Tube Irrigant 120 / 120 Water Bolus Amount 300 / 300 Output: Urine Amount (Catheter) 750 / 750 550 / 550 Indwelling Temp Sensing 750 / 750 550 / 550 Catheter Other: Date of Last Bowel Movement 08/04/18 08/05/18 08/05/18 # Incontinent Bowel Movements 1 2 Physical Exam: CONSTITUTIONAL/GENERAL: This is an elderly, male patient tolerating spontaneous breathing trial status post tracheostomy placement on 08/02/2018 TUBES/LINES/DRAINS: PIV x 2, tracheostomy, SCDs, indwelling Moreno catheter, soft restraints SKIN: No jaundice, rashes, or lesions. No wounds seen anteriorly. Skin temperature appropriate. Not diaphoretic. HEAD: Atraumatic. Normocephalic. EYES: Pupils equal and round and reactive. Extraocular motions intact. No scleral icterus. No injection or drainage. Fundi not examined. ENT: Hearing grossly normal. Nose without bleeding or purulent drainage. NECK: Trachea midline. Supple, nontender. No palpable thyroid enlargement or nodularity. CARDIOVASCULAR: Regular rate and rhythm without murmurs, gallops, or rubs. No JVD. Peripheral pulses symmetric. RESPIRATORY/CHEST: Tolerating spontaneous breathing trials status post tracheostomy. No wheezing, rales or rhonchi GASTROINTESTINAL: Abdomen firm, nontender. No guarding. Bowel sounds present. LBM: 08/05/18 GENITOURINARY: Without palpable bladder distension. Moreno catheter in place. MUSCULOSKELETAL: Extremities without clubbing, cyanosis, or edema. No mottling or clubbing. LYMPHATICS: No palpable cervical or supraclavicular adenopathy. NEUROLOGICAL: On Precedex. Attempts to mouth words; follows some simple one- step commands intermittently. PSYCHIATRIC: Intermittent agitation. No apparent hallucinations or other psychotic thought process. Diagnostic Tests Laboratory: Laboratory Results - last 72 hr 07/28/18 08/02/18 08/02/18 12:52 17:35 20:25 WBC RBC Hgb Hct MCV MCH MCHC RDW Plt Count MPV Neut % (Auto) Lymph % (Auto) Jenkins % (Auto) Eos % (Auto) Baso % (Auto) Neut # (Auto) Lymph # (Auto) Jenkins # (Auto) Eos # (Auto) Baso # (Auto) WBC Differential Differential Comment Sodium Potassium Chloride Carbon Dioxide Anion Gap BUN Creatinine Estimated GFR POC Glucose 157 H 193 H Random Glucose Calcium Calcium Adj for Albumin Phosphorus Magnesium Total Bilirubin AST ALT Alkaline Phosphatase Total Protein Albumin Vitamin A 23 L Vancomycin Trough 08/02/18 08/03/18 08/03/18 23:40 03:48 04:27 WBC RBC Hgb Hct MCV MCH MCHC RDW Plt Count MPV Neut % (Auto) Lymph % (Auto) Jenkins % (Auto) Eos % (Auto) Baso % (Auto) Neut # (Auto) Lymph # (Auto) Jenkins # (Auto) Eos # (Auto) Baso # (Auto) WBC Differential Differential Comment Sodium 145 Potassium 4.2 Chloride 107 Carbon Dioxide 31.8 Anion Gap 6 BUN 18 Creatinine 0.73 Estimated GFR Greater than 89 POC Glucose 222 H 183 H Random Glucose 159 H Calcium 7.3 L* Calcium Adj for Albumin 8.1 L Phosphorus Magnesium 1.6 Total Bilirubin 0.6 AST 39 H ALT 44 Alkaline Phosphatase 127 H Total Protein 5.7 L Albumin 2.3 L Vitamin A Vancomycin Trough 08/03/18 08/03/18 08/03/18 08:18 09:59 12:43 WBC 8.9 RBC 2.60 L Hgb 8.2 L Hct 23.6 L MCV 90.5 D MCH 31.4 MCHC 34.7 RDW 16.5 Plt Count 103 L D MPV 9.3 Neut % (Auto) Lymph % (Auto) Jenkins % (Auto) Eos % (Auto) Baso % (Auto) Neut # (Auto) Lymph # (Auto) Jenkins # (Auto) Eos # (Auto) Baso # (Auto) WBC Differential Differential Comment Sodium Potassium Chloride Carbon Dioxide Anion Gap BUN Creatinine Estimated GFR POC Glucose 109 205 H Random Glucose Calcium Calcium Adj for Albumin Phosphorus Magnesium Total Bilirubin AST ALT Alkaline Phosphatase Total Protein Albumin Vitamin A Vancomycin Trough 08/03/18 08/03/18 08/03/18 16:58 20:05 23:47 WBC RBC Hgb Hct MCV MCH MCHC RDW Plt Count MPV Neut % (Auto) Lymph % (Auto) Jenkins % (Auto) Eos % (Auto) Baso % (Auto) Neut # (Auto) Lymph # (Auto) Jenkins # (Auto) Eos # (Auto) Baso # (Auto) WBC Differential Differential Comment Sodium Potassium Chloride Carbon Dioxide Anion Gap BUN Creatinine Estimated GFR POC Glucose 158 H 177 H 204 H Random Glucose Calcium Calcium Adj for Albumin Phosphorus Magnesium Total Bilirubin AST ALT Alkaline Phosphatase Total Protein Albumin Vitamin A Vancomycin Trough 08/04/18 08/04/18 08/04/18 05:17 09:00 13:15 WBC RBC Hgb Hct MCV MCH MCHC RDW Plt Count MPV Neut % (Auto) Lymph % (Auto) Jenkins % (Auto) Eos % (Auto) Baso % (Auto) Neut # (Auto) Lymph # (Auto) Jenkins # (Auto) Eos # (Auto) Baso # (Auto) WBC Differential Differential Comment Sodium Potassium Chloride Carbon Dioxide Anion Gap BUN Creatinine Estimated GFR POC Glucose 145 H 145 H 197 H Random Glucose Calcium Calcium Adj for Albumin Phosphorus Magnesium Total Bilirubin AST ALT Alkaline Phosphatase Total Protein Albumin Vitamin A Vancomycin Trough 08/04/18 08/04/18 08/05/18 16:05 21:30 02:04 WBC RBC Hgb Hct MCV MCH MCHC RDW Plt Count MPV Neut % (Auto) Lymph % (Auto) Jenkins % (Auto) Eos % (Auto) Baso % (Auto) Neut # (Auto) Lymph # (Auto) Jenkins # (Auto) Eos # (Auto) Baso # (Auto) WBC Differential Differential Comment Sodium Potassium Chloride Carbon Dioxide Anion Gap BUN Creatinine Estimated GFR POC Glucose 132 H 146 H 171 H Random Glucose Calcium Calcium Adj for Albumin Phosphorus Magnesium Total Bilirubin AST ALT Alkaline Phosphatase Total Protein Albumin Vitamin A Vancomycin Trough 08/05/18 08/05/18 08/05/18 05:28 07:50 07:50 WBC 10.4 RBC 2.40 L Hgb 7.6 L Hct 22.4 L MCV 93.5 MCH 31.6 MCHC 33.8 RDW 17.0 Plt Count 117 L MPV 9.5 Neut % (Auto) 79.7 H Lymph % (Auto) 13.5 Jenkins % (Auto) 6.5 Eos % (Auto) 0.0 Baso % (Auto) 0.3 Neut # (Auto) 8.3 H Lymph # (Auto) 1.4 Jenkins # (Auto) 0.7 Eos # (Auto) 0.0 Baso # (Auto) 0.0 WBC Differential . Differential Comment Auto diff final Sodium Potassium Chloride Carbon Dioxide Anion Gap BUN Creatinine 0.72 Estimated GFR Greater than 89 POC Glucose 118 H Random Glucose Calcium Calcium Adj for Albumin Phosphorus Magnesium Total Bilirubin AST ALT Alkaline Phosphatase Total Protein Albumin Vitamin A Vancomycin Trough 08/05/18 08/05/18 08/05/18 08:23 13:51 14:22 WBC RBC Hgb Hct MCV MCH MCHC RDW Plt Count MPV Neut % (Auto) Lymph % (Auto) Jenkins % (Auto) Eos % (Auto) Baso % (Auto) Neut # (Auto) Lymph # (Auto) Jenkins # (Auto) Eos # (Auto) Baso # (Auto) WBC Differential Differential Comment Sodium 146 H Potassium 3.1 L Chloride 110 H Carbon Dioxide 30.5 Anion Gap 6 BUN 16 Creatinine 0.76 Estimated GFR Greater than 89 POC Glucose 119 H 114 H Random Glucose 109 H Calcium 7.5 L Calcium Adj for Albumin Phosphorus 3.2 Magnesium 1.6 Total Bilirubin AST ALT Alkaline Phosphatase Total Protein Albumin Vitamin A Vancomycin Trough 33.1 H Result Diagrams: 08/05/18 07:50 08/05/18 14:22 Microbiology: Microbiology 08/03/18 14:30 Aerobic Blood Culture - Preliminary Blood - Peripheral No growth in 2 days Anaerobic Blood Culture - Preliminary Staphylococcus coag negative 08/03/18 14:56 Aerobic Blood Culture - Preliminary Blood - Peripheral gram positive cocci Anaerobic Blood Culture - Preliminary Staphylococcus coag negative 08/02/18 09:30 Urine Culture - Final Catheterized Urine Enterococcus faecalis Klebsiella pneumoniae Imaging: Abdomen Ultrasound 06/21/18 00:00 CONCLUSION: 1. No ascites is identified within the abdomen. Abdomen/Bladder Ultrasound 06/28/18 00:00 CONCLUSION: 1. Echogenic kidneys characteristic of medical renal disease. No hydronephrosis. Bladder decompressed by Moreno Chest CTA 07/02/18 00:00 CONCLUSION: 1. No pulmonary embolus. 2. Diffuse but basilar predominant bilateral airspace disease. 3. Endotracheal and endobronchial secretions are demonstrated. 4. Moderate emphysema. 5. Left ventricular hypertrophy. Abdomen/Pelvis CT 07/10/18 08:31 CONCLUSION: 1. There is gas and fluid distending the colon. The patient has a rectal tube in place however the rectal tube is kinked back on itself and occluded. The overall size of the colon has mildly increased when compared to previous exam. The small bowel is normal in caliber. 2. Interval development of a small left basilar effusion and atelectasis. Venous Doppler Study 07/15/18 00:00 CONCLUSION: 1. Limited suboptimal examination. 2. Nonocclusive thrombus in the jugular vein. Abdomen X-Ray 08/01/18 09:59 CONCLUSION: NG tube in place. Mild gaseous distention of portions of colon. Chest X-Ray 08/03/18 06:00 CONCLUSION: Stable bibasilar airspace opacity representing either atelectasis or airspace consolidation. There is also a questionable hazy opacity at the right base which could indicate a small pleural effusion. 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 - Symptom Scale (1) Pain 0-10 Scale: Unable to quantify (2) Dyspnea 0-10 Scale: Unable to quantify Pertinent Non-Medical Issues: Psychosocial: Patient is a . He is a . He has been with his girlfriend (Mariam), who is also his caregiver, for approximately 15 years Spiritual: Spiritism faith Legal: Healthcare designation form completed 07/01/2018 designates patient's sister (Evita) as the healthcare surrogate decision-maker. However, she has been out of town for approximately 2 weeks. During her absence, provisional healthcare proxy decision making reverted to the patient's daughter. Ethical issues impacting care: No known ethical issues impacting care at this time Important Contacts: Stephanie Craig, daughter: [phone] Felicitas Hood, other relationship: [phone] Sara Maldonado, sister: [phone] Evita Zavala, sister: [phone] Prognosis: Patient is an elderly male with severe COPD who was admitted with a COPD exacerbation. He has been in and out of the intensive care unit; respiratory status is borderline. Patient remains high risk for decompensation ongoing decline. Code Status: Full Code Plan: * FULL CODE * Decision making: Healthcare surrogate designation form completed 07/01/2018 designates the patient's sister, Evita Og, as the healthcare surrogate decision-maker. However, she has been out of town for approximately 2 weeks and will returning tomorrow. During Evita's absence, provisional healthcare proxy decision making reverted back to the patient daughter. * Discussed patient with bedside RN (Karina) as well as Dr. Foster * Messages left with patient's sister (Sara); awaiting return phone call. Spoke with patient's daughter, Stephanie, on 08/04/2018. She will be arriving in [place] later this week. Tentative plan for PEG tube placement procedure has been placed on hold pending further conversations with patient's family. * Symptom management: Pain: Multifactorial. Contributing factors include chronic back pain, abdominal distention, colonic ileus, infection, invasive lines, intubation. On Precedex. Oxycodone/acetaminophen (5/325mg) is available q4 hours PRN for pain rated 6-10. Patient has has 2 doses Of oxycodone/acetaminophen in the past 24 Dyspnea: Tolerating spontaneous breathing trials status post tracheostomy on 08/02/2018 follow-up chest x-ray this morning showing mild basilar density, likely atelectasis. No effusion or pneumothorax was noted. Pulmonology following. On Albuterol nebulizers (scheduled and PRN), Pulmicort every 12 hours and Solu-Medrol daily. * Palliative care will continue to follow this patient throughout his hospitalization to establish trust, assist with symptom management and clarification of medical treatment goals. . Attestation Attestation: To help prompt me to consider important information that might be impacting today's encounter and assessment, information from prior notes written by myself or my colleagues may have been "brought forward" into today's note. My signature on this note, however, is an attestation that I personally performed the exam, history, and/or decision-making noted today, and, unless otherwise indicated, the interactions with patient, family, and staff as well as the review of records all occurred today. I also attest that the listed assessment and stated plan reflect my best clinical judgment today based on the combination of historical information, prior notes, and today's exam/ interactions. When time spent is documented, it refers only to time spent today by the signer, or if indicated, combined time spent today by collaborating physician/nurse practitioner.
--- NOTE | 2018-08-05 16:17 | P.DIET ---
Nutritional Evaluation Type of nutrition evaluation: follow-up Nutrition consult regarding: Tube Feeding Subjective Subjective Comments: Pt on clear liquid diet briefly on 07/24 and ate 100% of all meals. Objective - Diagnosis SOB, COPD Exacerbation - Objective % IBW: 126 Body Weight Used for Calculations: IBW (67.3kg(148 lb)) Energy Needs - Lower Range (kCal/kg): 23 Energy Needs - Upper Range (kCal/kg): 28 Lower Limit kCal/kg (kCals): 1,548 Upper Limit kCal/kg (kCals): 1,884 Lower Limit Protein Factor (Grams per Kg): 1.2 Upper Limit Protein Factor (Grams per Kg): 1.4 Lower Protein Needs (Protein): 81 Upper Protein Needs (Protein): 94 Dietitian Reviewed in Medical Record: Curent medications, Intake & Output, Labs , Medical history, Tube feeding Diet Order: TF Objective Comments: PMH includes: COPD, HTN, hyperlipidemia, anxiety Labs include: POC Glucose 145 146 119 LBM 08/05/18, UOP 1300mL 08/02 s/p tracheostomy Assessment Assessment: Pt continues at nutritional risk r/t clinical status, requiring TF'ing for nutritional support. Pt currently on CPAP trials, w/ NGT in place for TF'ing. Palliative recs reviewed, pts daughter contacted for pending PEG placement. Pts daughter arriving in [place] this week to discuss, PEG placement put on hold now. Pts TF was on hold since 08/04, now restarted today Glucerna 1.5 @ 40mL /hr. RD recommend Glucerna 1.5 @ 45mL/hr goal rate to best meet pts nutritional needs. Continue to monitor TF tolerance. Wt changes noted, CBW = 79.8kg (-6.4kg wt loss since admission). Labs reviewed, RD following. Brought forward: Pt extubated 06/29, re-intubated 07/02, extubated 07/17; 07/23 pt transferred from med-surg to [facility] w/difficulty breathing. Recommendations: 1. RD recommend Glucerna 1.5 @ 45mL/hr goal rate to best meet pts nutritional needs 2. Continue to monitor TF tolerance, PEG placement 3. Wt changes noted, CBW = 79.8kg (-6.4kg wt loss since admission) 4. RD following Dietitian to Monitor: Lab values, Electrolytes, Glucose level, Intake & Output, Weight change, Diet advancement, Medical course
--- NOTE | 2018-08-05 19:00 | P.PNID ---
Subjective Remarks: no fever stooling, very liquid stool growing CoNS in multiple blood c lx bottles Urine clx with Kleb, Enterococcus Antibiotics: cefepime vancomycin Allergies/Adverse Reactions: Allergies shellfish derived Allergy (Severe, Verified 10/10/17 13:48) Anaphylaxis Objective Vital Signs 08/04/18 19:00 08/04/18 20:00 08/04/18 20:51 Temperature 99.7 F H Pulse Rate 96 H 99 H 100 H Respiratory Rate 30 H 29 H 19 Blood Pressure 111/60 112/55 L Pulse Oximetry 100 100 99 08/04/18 21:00 08/04/18 22:00 08/04/18 23:00 Temperature Pulse Rate 96 H 94 H 90 Respiratory Rate 30 H 27 H 21 Blood Pressure 99/57 L 119/60 118/56 L Pulse Oximetry 100 100 99 08/04/18 23:32 08/04/18 23:34 08/05/18 00:00 Temperature 98.9 F Pulse Rate 93 H 93 H Respiratory Rate 24 24 27 H Blood Pressure 119/60 Pulse Oximetry 100 100 08/05/18 01:00 08/05/18 02:00 08/05/18 03:00 Temperature Pulse Rate 84 81 95 H Respiratory Rate 23 22 30 H Blood Pressure 112/59 L 103/55 L Pulse Oximetry 100 100 94 L 08/05/18 03:01 08/05/18 03:34 08/05/18 04:00 Temperature 99.4 F Pulse Rate 97 H 90 93 H Respiratory Rate 26 H 23 28 H Blood Pressure 89/63 L 92/52 L Pulse Oximetry 99 100 100 08/05/18 05:00 08/05/18 06:00 08/05/18 07:00 Temperature Pulse Rate 85 78 96 H Respiratory Rate 32 H 24 29 H Blood Pressure 94/55 L 104/60 118/57 L Pulse Oximetry 100 100 72 L 08/05/18 08:00 08/05/18 08:05 08/05/18 09:00 Temperature 99.1 F Pulse Rate 101 H 102 H 87 Respiratory Rate 29 H 30 H 29 H Blood Pressure 119/60 92/55 L Pulse Oximetry 67 L 94 L 96 08/05/18 10:00 08/05/18 10:40 08/05/18 11:00 Temperature Pulse Rate 83 81 81 Respiratory Rate 27 H 27 H 28 H Blood Pressure 96/55 L 99/54 L Pulse Oximetry 99 100 08/05/18 12:00 08/05/18 12:30 08/05/18 13:00 Temperature 98.3 F Pulse Rate 79 85 Respiratory Rate 24 28 H Blood Pressure 95/56 L 107/57 L Pulse Oximetry 99 98 98 08/05/18 14:00 08/05/18 15:00 08/05/18 16:00 Temperature 98.4 F Pulse Rate 88 87 97 H Respiratory Rate 27 H 24 27 H Blood Pressure 102/57 L 117/55 L 105/59 L Pulse Oximetry 98 100 95 08/05/18 16:24 08/05/18 17:58 Temperature Pulse Rate 74 93 H Respiratory Rate 17 Blood Pressure Pulse Oximetry Intake & Output 08/04/18 08/05/18 08/05/18 18:59 06:59 18:59 Intake Total 1095.0 / 1095.0 300 / 300 1787.5 / 1787.5 Output Total 750 / 750 550 / 550 450 / 450 Balance 345.0 / 345.0 -250 / -250 1337.5 / 1337.5 Weight 79.8 kg Intake: IV 975.0 / 975.0 1112.5 / 1112.5 Precedex Inj 1,000 MCG In NS 250 / 250 500 / 500 Inj 240 ML @ 0.2 MCG/KG/HR 3.8 mls/hr IV.CONT TITRATE PRN Rx#: [id number] Maxipime Inj 2,000 MG In NS Inj 200 / 200 300 / 300 100 ML @ 200 mls/hr IV.SIG Q8H WOLF Rx#:[id number] Vancomycin Inj 1,250 MG In NS 525.0 / 525.0 312.5 / 312.5 Inj 250 ML @ 250 mls/hr IV.SIG Q12H WOLF Rx#:[id number] Tube Feeding 155 / 155 Tube Irrigant 120 / 120 120 / 120 Water Bolus Amount 300 / 300 400 / 400 Output: Urine Amount (Catheter) 750 / 750 550 / 550 450 / 450 Indwelling Temp Sensing 750 / 750 550 / 550 450 / 450 Catheter Other: Date of Last Bowel Movement 08/04/18 08/05/18 08/05/18 # Bowel Movements 4 # Incontinent Bowel Movements 1 2 08/03/18 14:30 Blood - Peripheral Aerobic Blood Culture - Preliminary No growth in 2 days 08/03/18 14:30 Blood - Peripheral Anaerobic Blood Culture - Preliminary Staphylococcus coag negative 08/03/18 14:56 Blood - Peripheral Aerobic Blood Culture - Preliminary gram positive cocci 08/03/18 14:56 Blood - Peripheral Anaerobic Blood Culture - Preliminary Staphylococcus coag negative 08/02/18 09:30 Catheterized Urine Urine Culture - Final Enterococcus faecalis Klebsiella pneumoniae Lab - Hematology Results 08/05/18 07:50 WBC 10.4 RBC 2.40 L Hgb 7.6 L Hct 22.4 L MCV 93.5 MCH 31.6 MCHC 33.8 RDW 17.0 Plt Count 117 L MPV 9.5 Neut % (Auto) 79.7 H Lymph % (Auto) 13.5 Ma[place] % (Auto) 6.5 Eos % (Auto) 0.0 Baso % (Auto) 0.3 Neut # (Auto) 8.3 H Lymph # (Auto) 1.4 Maury # (Auto) 0.7 Eos # (Auto) 0.0 Baso # (Auto) 0.0 WBC Differential . Differential Comment Auto diff final Lab - Chemistry Results 08/03/18 08/03/18 08/04/18 20:05 23:47 05:17 Sodium Potassium Chloride Carbon Dioxide Anion Gap BUN Creatinine Estimated GFR POC Glucose 177 H 204 H 145 H Random Glucose Calcium Phosphorus Magnesium 08/04/18 08/04/18 08/04/18 09:00 13:15 16:05 Sodium Potassium Chloride Carbon Dioxide Anion Gap BUN Creatinine Estimated GFR POC Glucose 145 H 197 H 132 H Random Glucose Calcium Phosphorus Magnesium 08/04/18 08/05/18 08/05/18 21:30 02:04 05:28 Sodium Potassium Chloride Carbon Dioxide Anion Gap BUN Creatinine Estimated GFR POC Glucose 146 H 171 H 118 H Random Glucose Calcium Phosphorus Magnesium 08/05/18 08/05/18 08/05/18 07:50 08:23 13:51 Sodium Potassium Chloride Carbon Dioxide Anion Gap BUN Creatinine 0.72 Estimated GFR Greater than 89 POC Glucose 119 H 114 H Random Glucose Calcium Phosphorus Magnesium 08/05/18 08/05/18 14:22 16:20 Sodium 146 H Potassium 3.1 L Chloride 110 H Carbon Dioxide 30.5 Anion Gap 6 BUN 16 Creatinine 0.76 Estimated GFR Greater than 89 POC Glucose 128 H Random Glucose 109 H Calcium 7.5 L Phosphorus 3.2 Magnesium 1.6 Imaging: ITS Impressions Abdomen Ultrasound 06/21/18 00:00 CONCLUSION: 1. No ascites is identified within the abdomen. Abdomen/Bladder Ultrasound 06/28/18 00:00 CONCLUSION: 1. Echogenic kidneys characteristic of medical renal disease. No hydronephrosis. Bladder decompressed by Mora Chest CTA 07/02/18 00:00 CONCLUSION: 1. No pulmonary embolus. 2. Diffuse but basilar predominant bilateral airspace disease. 3. Endotracheal and endobronchial secretions are demonstrated. 4. Moderate emphysema. 5. Left ventricular hypertrophy. Abdomen/Pelvis CT 07/10/18 08:31 CONCLUSION: 1. There is gas and fluid distending the colon. The patient has a rectal tube in place however the rectal tube is kinked back on itself and occluded. The overall size of the colon has mildly increased when compared to previous exam. The small bowel is normal in caliber. 2. Interval development of a small left basilar effusion and atelectasis. Venous Doppler Study 07/15/18 00:00 CONCLUSION: 1. Limited suboptimal examination. 2. Nonocclusive thrombus in the jugular vein. Abdomen X-Ray 08/01/18 09:59 CONCLUSION: NG tube in place. Mild gaseous distention of portions of colon. Chest X-Ray 08/03/18 06:00 CONCLUSION: Stable bibasilar airspace opacity representing either atelectasis or airspace consolidation. There is also a questionable hazy opacity at the right base which could indicate a small pleural effusion. Physical Exam: GENERAL: NAD SKIN: Warm and dry. no rash HEAD: Atraumatic. Normocephalic. EYES: Pupils equal and round. No scleral icterus. No injection or drainage. CARDIOVASCULAR: Regular rate and rhythm. RESPIRATORY: No accessory muscle use. Clear to auscultation. Breath sounds equal bilaterally. GASTROINTESTINAL: Abdomen soft, + tender, markedly distended and tympanic. Dignishield in place : mora in place MUSCULOSKELETAL: Extremities without clubbing, cyanosis, or edema. No obvious deformities. NEUROLOGICAL: Awake and alert. no focal PSYCHIATRIC: calm cooperative Assessment and Plan - Plan [place]'s syndrome ileus on KUB Leukocytosis - resolving COPD Leukocytosis - resolved PNA - nl resp justyn on the sputum clx s/p 8 days of abx ALLYSON New fever UTI, Enterococcus, pfeiffer S Kleb pneumo, started on vanco, cefepime New Coag ne staph bactremia ? clinical signidificance New diarrhea r/o C.diff cont cefepime, vanco further abx recs per clx reslts r/o C.diff jamia RN
--- NOTE | 2018-08-05 19:16 | P.PNGI ---
Subjective Interval history: Patient laying supine in bed EGD with PEG on hold awaiting contact from surrogate Physical Exam Vital signs: Vital Signs 08/04/18 20:00 08/04/18 20:51 08/04/18 21:00 Temperature 99.7 F H Pulse Rate 99 H 100 H 96 H Respiratory Rate 29 H 19 30 H Blood Pressure 112/55 L 99/57 L Pulse Oximetry 100 99 100 08/04/18 22:00 08/04/18 23:00 08/04/18 23:32 Temperature Pulse Rate 94 H 90 93 H Respiratory Rate 27 H 21 24 Blood Pressure 119/60 118/56 L Pulse Oximetry 100 99 08/04/18 23:34 08/05/18 00:00 08/05/18 01:00 Temperature 98.9 F Pulse Rate 93 H 84 Respiratory Rate 24 27 H 23 Blood Pressure 119/60 112/59 L Pulse Oximetry 100 100 100 08/05/18 02:00 08/05/18 03:00 08/05/18 03:01 Temperature Pulse Rate 81 95 H 97 H Respiratory Rate 22 30 H 26 H Blood Pressure 103/55 L 89/63 L Pulse Oximetry 100 94 L 99 08/05/18 03:34 08/05/18 04:00 08/05/18 05:00 Temperature 99.4 F Pulse Rate 90 93 H 85 Respiratory Rate 23 28 H 32 H Blood Pressure 92/52 L 94/55 L Pulse Oximetry 100 100 100 08/05/18 06:00 08/05/18 07:00 08/05/18 08:00 Temperature 99.1 F Pulse Rate 78 96 H 101 H Respiratory Rate 24 29 H 29 H Blood Pressure 104/60 118/57 L 119/60 Pulse Oximetry 100 72 L 67 L 08/05/18 08:05 08/05/18 09:00 08/05/18 10:00 Temperature Pulse Rate 102 H 87 83 Respiratory Rate 30 H 29 H 27 H Blood Pressure 92/55 L 96/55 L Pulse Oximetry 94 L 96 99 08/05/18 10:40 08/05/18 11:00 08/05/18 12:00 Temperature 98.3 F Pulse Rate 81 81 79 Respiratory Rate 27 H 28 H 24 Blood Pressure 99/54 L 95/56 L Pulse Oximetry 100 99 08/05/18 12:30 08/05/18 13:00 08/05/18 14:00 Temperature Pulse Rate 85 88 Respiratory Rate 28 H 27 H Blood Pressure 107/57 L 102/57 L Pulse Oximetry 98 98 98 08/05/18 15:00 08/05/18 16:00 08/05/18 16:24 Temperature 98.4 F Pulse Rate 87 97 H 74 Respiratory Rate 24 27 H 17 Blood Pressure 117/55 L 105/59 L Pulse Oximetry 100 95 08/05/18 17:58 Temperature Pulse Rate 93 H Respiratory Rate Blood Pressure Pulse Oximetry Intake & Output 08/05/18 08/05/18 08/06/18 06:59 18:59 06:59 Intake Total 300 / 300 1787.5 / 1787.5 Output Total 550 / 550 450 / 450 Balance -250 / -250 1337.5 / 1337.5 Weight 79.8 kg Intake: IV 1112.5 / 1112.5 Precedex Inj 1,000 MCG In NS 500 / 500 Inj 240 ML @ 0.2 MCG/KG/HR 3.8 mls/hr IV.CONT TITRATE PRN Rx#: [id number] Maxipime Inj 2,000 MG In NS Inj 300 / 300 100 ML @ 200 mls/hr IV.SIG Q8H WOLF Rx#:[id number] Vancomycin Inj 1,250 MG In NS 312.5 / 312.5 Inj 250 ML @ 250 mls/hr IV.SIG Q12H WOLF Rx#:[id number] Tube Feeding 155 / 155 Tube Irrigant 120 / 120 Water Bolus Amount 300 / 300 400 / 400 Output: Urine Amount (Catheter) 550 / 550 450 / 450 Indwelling Temp Sensing 550 / 550 450 / 450 Catheter Other: Date of Last Bowel Movement 08/05/18 08/05/18 # Bowel Movements 4 # Incontinent Bowel Movements 2 - Constitutional chronically ill appearing - Routine HEENT Exam Head: Present: normocephalic - Routine Respiratory Exam Comments: Tracheostomy - Routine Abdominal Exam Present: soft, normoactive bowel sounds. Absent: distended - Urinary Catheter Management Indwelling Urethral Catheter Cath placed during this visit: yes, but has since been removed by the nurse Reason for continuing: Acute urinary retention Insertion date: 07/14/18 Insertion time: 21:55 Removal date: 08/02/18 Removal time: 07:59 Straight Cath placed during this visit: no Condom Cath placed during this visit: no Indwelling Temp Sensing Catheter Cath placed during this visit: yes Reason for continuing: Acute urinary retention Insertion date: 08/02/18 Insertion time: 08:00 Results - Labs CBC & Chem 7: 08/05/18 07:50 08/05/18 14:22 Laboratory Results - last 24 hr 08/04/18 08/05/18 08/05/18 21:30 02:04 05:28 WBC RBC Hgb Hct MCV MCH MCHC RDW Plt Count MPV Neut % (Auto) Lymph % (Auto) [place] % (Auto) Eos % (Auto) Baso % (Auto) Neut # (Auto) Lymph # (Auto) [place] # (Auto) Eos # (Auto) Baso # (Auto) WBC Differential Differential Comment Sodium Potassium Chloride Carbon Dioxide Anion Gap BUN Creatinine Estimated GFR POC Glucose 146 H 171 H 118 H Random Glucose Calcium Phosphorus Magnesium Vancomycin Trough 08/05/18 08/05/18 08/05/18 07:50 07:50 08:23 WBC 10.4 RBC 2.40 L Hgb 7.6 L Hct 22.4 L MCV 93.5 MCH 31.6 MCHC 33.8 RDW 17.0 Plt Count 117 L MPV 9.5 Neut % (Auto) 79.7 H Lymph % (Auto) 13.5 [place] % (Auto) 6.5 Eos % (Auto) 0.0 Baso % (Auto) 0.3 Neut # (Auto) 8.3 H Lymph # (Auto) 1.4 [place] # (Auto) 0.7 Eos # (Auto) 0.0 Baso # (Auto) 0.0 WBC Differential . Differential Comment Auto diff final Sodium Potassium Chloride Carbon Dioxide Anion Gap BUN Creatinine 0.72 Estimated GFR Greater than 89 POC Glucose 119 H Random Glucose Calcium Phosphorus Magnesium Vancomycin Trough 08/05/18 08/05/18 08/05/18 13:51 14:22 16:20 WBC RBC Hgb Hct MCV MCH MCHC RDW Plt Count MPV Neut % (Auto) Lymph % (Auto) [place] % (Auto) Eos % (Auto) Baso % (Auto) Neut # (Auto) Lymph # (Auto) [place] # (Auto) Eos # (Auto) Baso # (Auto) WBC Differential Differential Comment Sodium 146 H Potassium 3.1 L Chloride 110 H Carbon Dioxide 30.5 Anion Gap 6 BUN 16 Creatinine 0.76 Estimated GFR Greater than 89 POC Glucose 114 H 128 H Random Glucose 109 H Calcium 7.5 L Phosphorus 3.2 Magnesium 1.6 Vancomycin Trough 33.1 H Microbiology 08/03/18 14:30 Blood - Peripheral Aerobic Blood Culture - Preliminary No growth in 2 days 08/03/18 14:30 Blood - Peripheral Anaerobic Blood Culture - Preliminary Staphylococcus coag negative 08/03/18 14:56 Blood - Peripheral Aerobic Blood Culture - Preliminary gram positive cocci 08/03/18 14:56 Blood - Peripheral Anaerobic Blood Culture - Preliminary Staphylococcus coag negative - Procedures 06/26/18endotracheal intubation by critical care Dr. Ahn 06/26/18ultrasound-guided right IJ central line by critical care Dr. Ahn 07/02/18endotracheal intubation by critical care Dr. Ahn 07/06/18colonoscopy by : Stool in cecum, large amount of water flush, stool suctioned. Marked decompression. Rectal tube left in place. Internal hemorrhoids. 07/10/18colonoscopy by Dr. Keith: Ischemic ulcer cecum. Some semisolid stool suctioned. Marked decompression. Rectal ulcer from rectal tube. Hemorrhoids internal grade 2. 07/15/18decompressive colonoscopy by Dr. Berrios Assessment and Plan - Plan 07/16/2018 patient is resting in the bed a little more alert than before. Appreciate Dr. Berrios input and plan for rigid proctoscope to bedside may avoid surgery if at all possible. NG tube continues to low intermittent suction, abdomen appears mildly distended possible less over the past 24 hours, no appetite no nausea no vomiting 08/05/2018 Post tracheostomy on 08/02/2018. Patient currently tolerating breathing trials. EGD with PEG on hold at this time pending consent from healthcare surrogate decision-maker. NG tube feedings resumed. Plan NG feedings as per dietary recommendations Supportive care Bowel regimen Notify GI when consent obtained for PEG placement GI will sign off at this time, please notify when consent obtained. Patient was seen per myself and Dr. Nicholas this note was written on his behalf - Attending Attestation Dr. Milan
--- NOTE | 2018-08-05 19:20 | P.PNCC ---
Subjective Subjective Remarks/Hospital Course: Mr. Curry is a 73-year-old -[place] male with past medical history significant for COPD on 3 L nasal cannula, hypertension, hyperlipidemia and anxiety who was admitted to the hospitalist service on 06/19/2018 for worsening shortness of breath due to COPD exacerbation. He was treated with IV Solu- Medrol, IV antibiotics, breathing treatments gradually improved. Patient was also complaining about dyspepsia and underwent EGD by GI yesterday. Per report the EGD was normal but patient developed worsening shortness of breath and COPD exacerbation postprocedure, possibly from aspiration after sedated. Two ABGs done yesterday showed hypercapnic respiratory failure second 1 was on BiPAP and this was improved with pH 7.3 with PCO2 of 74. Patient remained on BiPAP overnight however was noticed to be lethargic today a.m., stat ABG showed pH of 7.21 PCO2 110 PO2 88 while on BiPAP. Patient was lethargic intermittently dozing off due to CO2 narcosis. Critical care medicine was consulted and I immediately evaluated the patient. Patient had obviously failed BiPAP I proceeded with endotracheal intubation placed on mechanical ventilation. Postintubation I have ordered single dose of Solu-Medrol 125 mg x1 continue Solu -Medrol 60 every 8, discontinue ceftriaxone and start cefepime 2 g IV every 8 hours continue azithromycin. Add budesonide inhaled, placed on scheduled DuoNeb every 4 hours and as needed. 06/27: Patient was intubated yesterday for severe hypercapnic respiratory failure. Currently remains intubated sedated and intubated remains diminished bilaterally. Heavily sedated for ventilator synchrony 06/28: Urine output significantly improved with fluid resuscitation. Creat down trending now 2 from 2.3, UO >3.3 L. Remains intubated sedated. Will initiate daily sedation vacation and CPAP trials 06/29: More awake today tolerating CPAP trials intermittently follows commands but gets agitated/frustrated fast. Urine output remains excellent creatinine 1.4. However sodium increasing 158 today. Night real estate photographer had changed fluid to D5 W for free water replacement. Due to hypoglycemia will change to quarter normal saline at 150 mL/h repeat CMP in the afternoon 06/30 Patient was extubated yesterday. Awake 07/01 Patient is lying in bed in NAD. T: 100.5 07/02: Intubated early this morning due to acute hypoxic respiratory failure. Central line placed due to hypotension. Plan for GI perform endoscopic decompression of this large bowel today. Arousable and does follow commands. Placed on argatroban 07/03: Currently, intubated with borderline blood pressure. Central line placed yesterday due to hypotension. Did not move bowels despite 1 L of fluid from colonoscopy yesterday and multiple laxatives provided. See orders for additional laxatives today. Might need neostigmine. 07/04 Patient remains intubated and sedated with Diprivan. Given Neostigmine last night. KUB this morning showed colonic ileus. Afebrile. On Argatroban. 07/05 No events overnight, sedated with Diprivan and intubated. Off Argatroban. 07/06 Patient remains intubated and sedated. Afebrile. 07/07 Patient remains intubated, s/p decompressive colonoscopy yesterday. Awake. 07/08 Patient s/p extubation yesterday. Awake and alert. 07/09 Patient is awake, alert lying in bed in NAD. Afebrile. 07/10 Patient is awake and alert, Afebrile. 07/11 Patient s/p decompressive colonoscopy yesterday. Afebrile. On Lasix drip.( UOP: 2800ml overnight). Cr: 3.0 from 2.25. 07/12 Patient is awake, alert given Neostigmine overnight. NGT to LIWS, off Lasix drip. 07/13: Resting comfortably in bed in no acute distress. 3 bowel movements documented. Remains n.p.o. Bladder pressures around 6. Potassium being replaced. Remains anemic around 7. 07/14 Patient is lying in bed in NAD. Afebrile. 07/15 No events overnight. Afebrile. 07/16: Resting in bed mild distress. Abdomen remains distended. Hemoglobin has dropped to 6.2 2 units of PRBC ordered. Patient underwent decompressive colonoscopy by Dr. Berrios for colonic ileus 07/17: No significant overnight events, patient states that he wants to get out of bed to a chair as he is having rectal discomfort. 07/18: Patient reportedly had a BM after digital rectal exam yesterday, states that he's been passing flatus "every now and then" overnight. No plans for OR or sigmoidoscopy as per colorectal service, OK to transfer out of [facility]. 07/19: Patient transferred to [facility] yesterday, complained of shortness of breath again today. An ABG showed a pCO2 of 79 so he was placed on bipap and transferred to [facility]. Most recent ABG shows pCO2 of 66, KUB still has abdominal distension but appears to be improved when compared to KUB from 07/15. Patient has reportedly been having bowel movements and passing flatus overnight. 07/20: No dramatic improvement in abdominal distention however abdomen soft. The patient was able to breathe comfortably overnight and remained alert. This morning the BiPAP mask was removed for half an hour and the patient did well without evidence of CO2 retention or somnolence. Reconsult note 07/23: The patient was a halicat from the [facility] floor. Patient was noted to be somnolent, had difficulty breathing. Stat ABG was performed revealing a PCO2 of 113. The patient was placed on BiPAP and transferred to [facility]. Currently remains on CPAP respiratory rate is 25 , 16/5 with an FiO2 35%. 07/24: Overnight the patient was placed on BiPAP 10/5 refusing BiPAP pulling out IVs. The patient became tachycardic refusing p.o. medications. The patient was placed on a Cardizem infusion currently at 5 mg an hour. Patient is more compliant at this time the patient's BiPAP settings were increased to 15 /5 35% stat ABGs were ordered the patient was noted to have a PCO2 of 89, continues with hypercapnic respiratory failure in the setting of severe COPD. Extensive discussion with family at bedside the patient's sister and daughter provided medical status update on recent transfer to ICU and current standing. Inform family that patient is at risk for for emergent intubation. Repeat ABG pending this evening. 07/25: Patient noted to have episodes of agitation continually removing BiPAP. I discussed with patient the criticality of his illness and possible intubation patient now agrees to wear BiPAP with exception of meals. Patient's diet was advanced to clear liquid noted improvement of chest x-ray patient is noted to have last bowel movement approximately 2 days ago we will continue to monitor and follow-up GI recommendations . Noted electrolyte repletion at this time. PCO2 now in the 60s. 07/26: Patient continues to be noncompliant with BiPAP mask. ABGs obtained noting a PO2 of 45.6. The patient was emergently intubated this afternoon. Chest x-ray and repeat ABG pending at this time. Noted patient's last bowel movement last night. 07/27: Afebrile. Remains on ventilator. Will start tube feeding today. BM noted overnight. Replacing potassium phosphate, calcium chloride x1 now. And magnesium sulfate 07/28: Afebrile. Did not tolerate CPAP trial the same. Tolerating tube feeds today. Last bowel movement yesterday 09/26. Mild ileus on abdominal x-ray today. 07/29: Afebrile. Tolerated CPAP times 3 hours. He is intolerant to P. 2 bowel movements. Abdominal x-ray unchanged but no signs of obstructive or ileus. 07/30: Afebrile. Currently on CPAP trials. Positive BM. No change in neurological status. Increasing metoprolol to 5 mg IV every 6 hours. Subjective 07/31: Again on CPAP trials. Awake and alert on dexmedetomidine drip. Will put on metoprolol tartrate 25 mg every 8 hours and titrate. Positive BM. Recheck KUB in a.m. 08/01. 08/01: Currently tolerating CPAP, but requiring 15 pressure support. Patient had been intubated 3 times this admission, according to the caregiver and go from had to do patient's a total of several intubation in the last 2-3 months. I discussed with the patient was agreeable for tracheostomy, I also discussed with Stephanie patient's daughter and she has given consent for tracheostomy. Plan for tracheostomy tomorrow 08/02: Patient currently on Precedex awake alert not tolerating CPAP trials. Plan for tracheostomy today. Transfuse 1 unit PRBC 1 pack units of platelets prior to trach 08/03: Patient remains calm on the vent currently tolerating pressure support 06/06. Status post tracheostomy yesterday no significant bleeding. Platelet count 103 today. 08/04: Patient placed on CPAP trials this a.m. and continues without difficulty. Precedex infusion currently at 1.5 mcgs/kg/hour. Tentative plan for PEG tube placement procedure on hold awaiting discussion with family, POA. Patient continues to have large bowel movements. 08/05: Continued copious large bowel movement. Fecal containment device / Dignashield applied. Placement of PEG tube continues to be on hold ,due to the inability to contact the POA. Objective Vital Signs / I&O: Vital Signs 08/04/18 20:00 08/04/18 20:51 08/04/18 21:00 Temperature 99.7 F H Pulse Rate 99 H 100 H 96 H Respiratory Rate 29 H 19 30 H Blood Pressure 112/55 L 99/57 L Pulse Oximetry 100 99 100 08/04/18 22:00 08/04/18 23:00 08/04/18 23:32 Temperature Pulse Rate 94 H 90 93 H Respiratory Rate 27 H 21 24 Blood Pressure 119/60 118/56 L Pulse Oximetry 100 99 08/04/18 23:34 08/05/18 00:00 08/05/18 01:00 Temperature 98.9 F Pulse Rate 93 H 84 Respiratory Rate 24 27 H 23 Blood Pressure 119/60 112/59 L Pulse Oximetry 100 100 100 08/05/18 02:00 08/05/18 03:00 08/05/18 03:01 Temperature Pulse Rate 81 95 H 97 H Respiratory Rate 22 30 H 26 H Blood Pressure 103/55 L 89/63 L Pulse Oximetry 100 94 L 99 08/05/18 03:34 08/05/18 04:00 08/05/18 05:00 Temperature 99.4 F Pulse Rate 90 93 H 85 Respiratory Rate 23 28 H 32 H Blood Pressure 92/52 L 94/55 L Pulse Oximetry 100 100 100 08/05/18 06:00 08/05/18 07:00 08/05/18 08:00 Temperature 99.1 F Pulse Rate 78 96 H 101 H Respiratory Rate 24 29 H 29 H Blood Pressure 104/60 118/57 L 119/60 Pulse Oximetry 100 72 L 67 L 08/05/18 08:05 08/05/18 09:00 08/05/18 10:00 Temperature Pulse Rate 102 H 87 83 Respiratory Rate 30 H 29 H 27 H Blood Pressure 92/55 L 96/55 L Pulse Oximetry 94 L 96 99 08/05/18 10:40 08/05/18 11:00 08/05/18 12:00 Temperature 98.3 F Pulse Rate 81 81 79 Respiratory Rate 27 H 28 H 24 Blood Pressure 99/54 L 95/56 L Pulse Oximetry 100 99 08/05/18 12:30 08/05/18 13:00 08/05/18 14:00 Temperature Pulse Rate 85 88 Respiratory Rate 28 H 27 H Blood Pressure 107/57 L 102/57 L Pulse Oximetry 98 98 98 08/05/18 15:00 08/05/18 16:00 08/05/18 16:24 Temperature 98.4 F Pulse Rate 87 97 H 74 Respiratory Rate 24 27 H 17 Blood Pressure 117/55 L 105/59 L Pulse Oximetry 100 95 08/05/18 17:58 Temperature Pulse Rate 93 H Respiratory Rate Blood Pressure Pulse Oximetry Intake & Output 08/05/18 08/05/18 08/06/18 06:59 18:59 06:59 Intake Total 300 / 300 1787.5 / 1787.5 Output Total 550 / 550 450 / 450 Balance -250 / -250 1337.5 / 1337.5 Weight 79.8 kg Intake: IV 1112.5 / 1112.5 Precedex Inj 1,000 MCG In NS 500 / 500 Inj 240 ML @ 0.2 MCG/KG/HR 3.8 mls/hr IV.CONT TITRATE PRN Rx#: [id number] Maxipime Inj 2,000 MG In NS Inj 300 / 300 100 ML @ 200 mls/hr IV.SIG Q8H WOLF Rx#:[id number] Vancomycin Inj 1,250 MG In NS 312.5 / 312.5 Inj 250 ML @ 250 mls/hr IV.SIG Q12H WOLF Rx#:[id number] Tube Feeding 155 / 155 Tube Irrigant 120 / 120 Water Bolus Amount 300 / 300 400 / 400 Output: Urine Amount (Catheter) 550 / 550 450 / 450 Indwelling Temp Sensing 550 / 550 450 / 450 Catheter Other: Date of Last Bowel Movement 08/05/18 08/05/18 # Bowel Movements 4 # Incontinent Bowel Movements 2 Result Diagrams: 08/05/18 07:50 08/05/18 14:22 Objective Remarks: GENERAL: 73-year-old chronically ill appearing elderly -[place] male lying in bed, awake alert status post trach SKIN: Warm and dry HEAD: Normocephalic. EYES: PERRL NECK: Supple, trachea midline. New tracheostomy with minimal dry blood around the site CARDIOVASCULAR: Normal rhythm. S1, S2. No S4. No murmur RESPIRATORY: Diminished breath sounds in bases noted. B/L equal air entry, patient. tolerating CPAP 06/06, trach collar trials GASTROINTESTINAL: Abdomen less distended, non-tender, no guarding, bowel sounds present MUSCULOSKELETAL: Trace to bilateral upper/ lower extremity edema, warm and well- perfused NEURO: Alert awake on the vent Follows commands by moving upper and lower extremities withdraws to pain bilateral upper and lower extremities. Assessment and Plan - Assessment and Plan Plan: NEURO/Psych: Altered mental status due to CO2 retention -Discontinued Precedex 08/03 -F/U acetylcholine receptor and autoantibodies was negative RESP: Hypercapnic respiratory failure Acute COPD exacerbation -Extubated 06/29. Reintubated 07/02 extubated again 07/07, reintubated 07/26 -Status post tracheostomy yesterday 08/02/2018. CPAP trial with T-piece up to 4 hours today -Albuterol/ipratropium aerosols every 4 hours scheduled and albuterol aerosols every 2 hours as needed -Continue steroids IV, Inhaled budesonide CV: Essential hypertension - Monitor HR and BP keep MAP>65mmHg - Toprol tartrate 25 mg by tube every 8 hours GI: Colonic ileus-resolved -KUB 07/13: Stable nonobstructive colonic distention. -Given Neostigmine 07/11. -s/p repeat decompressive colonoscopy 07/10 and 07/15 -Continue pantoprazole -On docusate sodium/senna 1 tablet twice daily, lactulose 30 cc 4 times daily, polyethylene glycol 17 g daily. Fleets enema daily. Naltrexone 12 mg subcu daily -NG tube. Tube feeding with Glucerna 1.5 goal 45 cc daily per rectum recent recommendation -Abdominal x-ray revealed nonspecific bowel gas pattern. -Patient will need long-term trach -consult GI for PEG tube placement-08/04 placed on hold secondary to the need for discussion with patient's POA -08/05 placement of Dignashield FEN//renal: Hypernatremia Hypophosphatemia Hypopotassemia -Monitor renal function, I/O's, avoid nephrotoxins -Renal function stable -Renal- Dr. Figueroa has followed -Repletion of electrolytes per protocol -Free water 200 cc every 6 hours -Follow-up C. difficile PCR ID: -Off abx monitor for signs of infections (Fever, WBC) WBC stable -BC and urine cx from 07/11- NG -07/02 BC: NGTS, sputum cx 07/02:normal resp justyn -ID is following- Dr. Brown PRN -Urine culture from 07/28/2018 growing Koki. Repeat cultures sent 08/02/2018 after replacing Moreno HEME: Normocytic anemia Thrombocytopenia -Monitor CBC, coags, Hep PLT is positive. ANNMARIE negative. Hematology is following. Off argatroban drip -s/p 2U PRBCs on 07/16, Hgb 8.8, used for hemoglobin less than 7 -Give 1 unit of PRBC and 1 pack units of platelets today in anticipation of tracheostomy -Stable thrombocytopenia-avoid medications that precipitate thrombocytopenia ENDO: -Sliding scale insulin medium scale aspart insulin every 4 hours. Continue insulin detemir 10 units twice daily PROPH: -Bilateral lower extremity SCDs. PPI -Doppler US LE negative DVT 07/02 -Continue Lovenox 40 mg daily LINES: -Utilize peripheral IVs Level 2 follow-up Code Status: Full Discussed Condition With: Patient's girlfriend and JAVASCRIPT WEB DEVELOPER at bedside
[2018-08-06] MEDS: Artificial Tears Opth Drops 15 ML Bottle EACH EYE SCH ×3 (02:47→16:16)
[2018-08-06] MEDS: Pantoprazole Inj 40 MG Vial IV.PUSH SCH ×2 (02:48→14:36)
[2018-08-06] MEDS: Insulin NovoLOG Aspart Correctional Sugar Inj SQ SCH ×6 (06:33→22:03)
[2018-08-06] MEDS: Enoxaparin Inj 40 MG/0.4 ML Syringe SQ SCH (08:10)
[2018-08-06] MEDS: Sennosides Liq 8.8 MG/5 ML UDC NG/OG SCH ×2 (08:10→22:04)
[2018-08-06] MEDS: Polyethylene Glycol 3350 17 GM Packet PO SCH (08:10)
[2018-08-06] MEDS: Methylnaltrexone Inj 12 MG/0.6 ML Vial SQ SCH (08:10)
[2018-08-06] MEDS: Docusate Sodium Liq 100 MG/10 ML UDC NG/OG SCH ×2 (08:11→22:04)
[2018-08-06] MEDS: Ascorbic Acid 500 MG Tablet PO SCH (08:11)
[2018-08-06] MEDS: Multivitamin/Minerals Therapeutic Tablet PO SCH (08:12)
[2018-08-06] MEDS: Calcium/Vitamin D 250/125 MG Tablet PO SCH (08:12)
[2018-08-06] MEDS: Bisacodyl 10 MG Supp RECTAL SCH (08:12)
[2018-08-06] MEDS: Metoprolol Tartrate 25 MG Tablet PO SCH ×3 (09:38→18:03)
[2018-08-06] MEDS: Insulin Detemir Inj 1,000 UNIT/10 ML Vial SQ SCH ×2 (09:53→22:04)
[2018-08-06] MEDS: Dexmedetomidine Inj 1,000 MCG in Sodium Chlor 0.9% Inj 240 ML IV.CONT PRN ×2 (11:56→22:06)
--- NOTE | 2018-08-06 14:01 | P.PNID ---
Subjective Remarks: no fever stooling, very liquid stool c.diff negative BC growing CoNS in multiple blood c lx bottles - look the same Urine clx with Kleb, Enterococcus Antibiotics: cefepime vancomycin Allergies/Adverse Reactions: Allergies shellfish derived Allergy (Severe, Verified 10/10/17 13:48) Anaphylaxis Objective Vital Signs 08/05/18 14:00 08/05/18 15:00 08/05/18 16:00 Temperature 98.4 F Pulse Rate 88 87 97 H Respiratory Rate 27 H 24 27 H Blood Pressure 102/57 L 117/55 L 105/59 L Pulse Oximetry 98 100 95 08/05/18 16:24 08/05/18 17:58 08/05/18 19:24 Temperature Pulse Rate 74 93 H 85 Respiratory Rate 17 26 H Blood Pressure Pulse Oximetry 100 08/05/18 19:47 08/05/18 20:00 08/05/18 22:00 Temperature 98.7 F Pulse Rate 90 90 Respiratory Rate 27 H 28 H Blood Pressure 99/53 L Pulse Oximetry 98 99 08/05/18 23:20 08/06/18 00:00 08/06/18 02:00 Temperature 99.2 F Pulse Rate 85 90 90 Respiratory Rate 24 24 Blood Pressure 96/55 L Pulse Oximetry 99 98 08/06/18 03:44 08/06/18 04:00 08/06/18 06:00 Temperature 99.0 F Pulse Rate 95 H 93 H 98 H Respiratory Rate 25 H 25 H Blood Pressure 97/53 L Pulse Oximetry 96 96 08/06/18 07:40 08/06/18 08:00 08/06/18 08:20 Temperature 98.6 F Pulse Rate 92 H 104 H Respiratory Rate 25 H 26 H Blood Pressure 102/55 L Pulse Oximetry 95 100 08/06/18 10:00 08/06/18 11:48 08/06/18 12:00 Temperature Pulse Rate 106 H 101 H 106 H Respiratory Rate 24 Blood Pressure Pulse Oximetry Intake & Output 08/05/18 08/06/18 08/06/18 18:59 06:59 18:59 Intake Total 1787.5 / 1787.5 1050 / 1050 450 / 450 Output Total 450 / 450 800 / 800 Balance 1337.5 / 1337.5 250 / 250 450 / 450 Weight 79.8 kg Intake: IV 1112.5 / 1112.5 450 / 450 Precedex Inj 1,000 MCG In NS 500 / 500 250 / 250 Inj 240 ML @ 0.2 MCG/KG/HR 3.8 mls/hr IV.CONT TITRATE PRN Rx#: [id number] Maxipime Inj 2,000 MG In NS Inj 300 / 300 200 / 200 100 ML @ 200 mls/hr IV.SIG Q8H WOLF Rx#:[id number] Vancomycin Inj 1,250 MG In NS 312.5 / 312.5 Inj 250 ML @ 250 mls/hr IV.SIG Q12H WOLF Rx#:[id number] Tube Feeding 155 / 155 450 / 450 Tube Irrigant 120 / 120 Water Bolus Amount 400 / 400 600 / 600 Output: Stool 300 / 300 Urine Amount (Catheter) 450 / 450 500 / 500 Indwelling Temp Sensing 450 / 450 500 / 500 Catheter Other: Date of Last Bowel Movement 08/05/18 08/06/18 08/06/18 # Bowel Movements 4 08/03/18 14:30 Blood - Peripheral Aerobic Blood Culture - Preliminary No growth in 3 days 08/03/18 14:30 Blood - Peripheral Anaerobic Blood Culture - Final Staphylococcus epidermidis 08/03/18 14:56 Blood - Peripheral Aerobic Blood Culture - Final Staphylococcus coag negative 08/03/18 14:56 Blood - Peripheral Anaerobic Blood Culture - Final Staphylococcus epidermidis 08/02/18 09:30 Catheterized Urine Urine Culture - Final Enterococcus faecalis Klebsiella pneumoniae Lab - Hematology Results 08/05/18 07:50 WBC 10.4 RBC 2.40 L Hgb 7.6 L Hct 22.4 L MCV 93.5 MCH 31.6 MCHC 33.8 RDW 17.0 Plt Count 117 L MPV 9.5 Neut % (Auto) 79.7 H Lymph % (Auto) 13.5 Karnes % (Auto) 6.5 Eos % (Auto) 0.0 Baso % (Auto) 0.3 Neut # (Auto) 8.3 H Lymph # (Auto) 1.4 [place] # (Auto) 0.7 Eos # (Auto) 0.0 Baso # (Auto) 0.0 WBC Differential . Differential Comment Auto diff final Lab - Chemistry Results 08/04/18 08/04/18 08/05/18 16:05 21:30 02:04 Sodium Potassium Chloride Carbon Dioxide Anion Gap BUN Creatinine Estimated GFR POC Glucose 132 H 146 H 171 H Random Glucose Calcium Phosphorus Magnesium 08/05/18 08/05/18 08/05/18 05:28 07:50 08:23 Sodium Potassium Chloride Carbon Dioxide Anion Gap BUN Creatinine 0.72 Estimated GFR Greater than 89 POC Glucose 118 H 119 H Random Glucose Calcium Phosphorus Magnesium 08/05/18 08/05/18 08/05/18 13:51 14:22 16:20 Sodium 146 H Potassium 3.1 L Chloride 110 H Carbon Dioxide 30.5 Anion Gap 6 BUN 16 Creatinine 0.76 Estimated GFR Greater than 89 POC Glucose 114 H 128 H Random Glucose 109 H Calcium 7.5 L Phosphorus 3.2 Magnesium 1.6 08/05/18 08/06/18 08/06/18 20:27 00:56 07:52 Sodium Potassium Chloride Carbon Dioxide Anion Gap BUN Creatinine Estimated GFR POC Glucose 163 H 182 H 206 H Random Glucose Calcium Phosphorus Magnesium 08/06/18 11:50 Sodium Potassium Chloride Carbon Dioxide Anion Gap BUN Creatinine Estimated GFR POC Glucose 196 H Random Glucose Calcium Phosphorus Magnesium Imaging: ITS Impressions Abdomen Ultrasound 06/21/18 00:00 CONCLUSION: 1. No ascites is identified within the abdomen. Abdomen/Bladder Ultrasound 06/28/18 00:00 CONCLUSION: 1. Echogenic kidneys characteristic of medical renal disease. No hydronephrosis. Bladder decompressed by Mora Chest CTA 07/02/18 00:00 CONCLUSION: 1. No pulmonary embolus. 2. Diffuse but basilar predominant bilateral airspace disease. 3. Endotracheal and endobronchial secretions are demonstrated. 4. Moderate emphysema. 5. Left ventricular hypertrophy. Abdomen/Pelvis CT 07/10/18 08:31 CONCLUSION: 1. There is gas and fluid distending the colon. The patient has a rectal tube in place however the rectal tube is kinked back on itself and occluded. The overall size of the colon has mildly increased when compared to previous exam. The small bowel is normal in caliber. 2. Interval development of a small left basilar effusion and atelectasis. Venous Doppler Study 07/15/18 00:00 CONCLUSION: 1. Limited suboptimal examination. 2. Nonocclusive thrombus in the jugular vein. Abdomen X-Ray 08/01/18 09:59 CONCLUSION: NG tube in place. Mild gaseous distention of portions of colon. Chest X-Ray 08/03/18 06:00 CONCLUSION: Stable bibasilar airspace opacity representing either atelectasis or airspace consolidation. There is also a questionable hazy opacity at the right base which could indicate a small pleural effusion. Physical Exam: GENERAL: NAD SKIN: Warm and dry. no rash NECK: trach i n place EYES: Pupils equal and round. No scleral icterus. No injection or drainage. CARDIOVASCULAR: Regular rate and rhythm. RESPIRATORY: No accessory muscle use. Clear to auscultation. Breath sounds equal bilaterally. GASTROINTESTINAL: Abdomen soft, + tender, slightly less distended and tympanic. Dignishield in place : mora in place MUSCULOSKELETAL: Extremities without clubbing, cyanosis, or edema. No obvious deformities. NEUROLOGICAL: Awake and alert. no focal PSYCHIATRIC: calm cooperative Assessment and Plan - Plan [place]'s syndrome ileus on KUB Leukocytosis - resolving COPD Leukocytosis - resolved PNA - nl resp justyn on the sputum clx s/p 8 days of abx [place] New fever: resolved UTI, Enterococcus, pfeiffer S Kleb pneumo, started on vanco, cefepime [place] neg staph bactremia ? clinical signidificance New diarrhea r/o C.diff cont cefepime, vanco x 7 days further abx recs per clx reslts jamia blandon RN
--- NOTE | 2018-08-06 14:34 | P.PNPAL ---
Reason for Visit Reason for visit: a. To assist with evaluation and management of symptoms including: pain, dyspnea, agitation b. To assist medical decision maker(s) with: better understanding of current medical conditions; weighing benefits/burdens of medical treatment options; making medical treatment decisions. Subjective Subjective/Interval History: Follow up visit for symptom management of pain, agitation and dyspnea and clarification of medical treatment. Mr. Curry was seen in intensive care, room 519. Patient presents sitting upright in a stretcher chair, awake and alert. Unable to communicate verbal; attempting to mouth words. He becomes frustrated when staff can not understand what he is trying to say. Patient appears painful as evidenced by tearful, grimacing; he is able to communicate where his pain is located by mouthing the word "butt." PRN Percocet 5/325mg is available every 4 hours as needed for pain. 24-hour PRN requirements = Percocet 5/325mg tablet x 3. Respirations are unlabored on 40% FiO2 via T-piece status post tracheostomy on 08/02/2018. Follow-up chest x-ray on 08/03/2018 showed stable bibasilar airspace opacity representing either atelectasis or airspace consolidation. There was also a questionable hazy opacity at the right base which could indicate a small pleural effusion. Urine culture from 08/02/2018 with Klebsiella pneumoniae and enterococcus. Blood cultures from 08/03/2018 growing coag negative staph. On cefepime and vancomycin per ID Patient remains on Precedex infusion due to ongoing agitation. Plan to initiate Seroquel this evening in an attempt to manage agitation with subsequent discontinuation of Precedex. Spoke with patient's sister/HCS (Evita Og) via telephone. She got home from a cruise earlier today. Medical update provided. Evita is understands that during her absence during Evita's absence the patient's daughter was acting as provisional healthcare proxy per [place] statutes. Benefits and burdens of tracheostomy and PEG tube placement were discussed. Patient's sisters (Dora and Evita) arrived at the hospital later this afternoon. They have a tomorrow but state they will likely proceed with PEG tube placement in the upcoming days. Tentative family meeting on 08/08/2018. Spoke with patient's daughter (Stephanie) on 08/04/2018. She will be arriving in [place] either today or tomorrow. She was amenable to PEG tube placement at that time. Family/Friend Interactions: See interval history Advance Directives Living Will: Never completed Health Care Surrogate: Never completed Durable Power of Electronic Induction Hardener: Never completed Objective Vital Signs: Vital Signs 08/05/18 14:00 08/05/18 15:00 08/05/18 16:00 Temperature 98.4 F Pulse Rate 88 87 97 H Respiratory Rate 27 H 24 27 H Blood Pressure 102/57 L 117/55 L 105/59 L Pulse Oximetry 98 100 95 08/05/18 16:24 08/05/18 17:58 08/05/18 19:24 Temperature Pulse Rate 74 93 H 85 Respiratory Rate 17 26 H Blood Pressure Pulse Oximetry 100 08/05/18 19:47 08/05/18 20:00 08/05/18 22:00 Temperature 98.7 F Pulse Rate 90 90 Respiratory Rate 27 H 28 H Blood Pressure 99/53 L Pulse Oximetry 98 99 08/05/18 23:20 08/06/18 00:00 08/06/18 02:00 Temperature 99.2 F Pulse Rate 85 90 90 Respiratory Rate 24 24 Blood Pressure 96/55 L Pulse Oximetry 99 98 08/06/18 03:44 08/06/18 04:00 08/06/18 06:00 Temperature 99.0 F Pulse Rate 95 H 93 H 98 H Respiratory Rate 25 H 25 H Blood Pressure 97/53 L Pulse Oximetry 96 96 08/06/18 07:40 08/06/18 08:00 08/06/18 08:20 Temperature 98.6 F Pulse Rate 92 H 104 H Respiratory Rate 25 H 26 H Blood Pressure 102/55 L Pulse Oximetry 95 100 08/06/18 10:00 08/06/18 11:48 08/06/18 12:00 Temperature Pulse Rate 106 H 101 H 106 H Respiratory Rate 24 Blood Pressure Pulse Oximetry Intake & Output 08/05/18 08/06/18 08/06/18 18:59 06:59 18:59 Intake Total 1787.5 / 1787.5 1050 / 1050 450 / 450 Output Total 450 / 450 800 / 800 Balance 1337.5 / 1337.5 250 / 250 450 / 450 Weight 79.8 kg Intake: IV 1112.5 / 1112.5 450 / 450 Precedex Inj 1,000 MCG In NS 500 / 500 250 / 250 Inj 240 ML @ 0.2 MCG/KG/HR 3.8 mls/hr IV.CONT TITRATE PRN Rx#: [id number] Maxipime Inj 2,000 MG In NS Inj 300 / 300 200 / 200 100 ML @ 200 mls/hr IV.SIG Q8H WOLF Rx#:[id number] Vancomycin Inj 1,250 MG In NS 312.5 / 312.5 Inj 250 ML @ 250 mls/hr IV.SIG Q12H WOLF Rx#:[id number] Tube Feeding 155 / 155 450 / 450 Tube Irrigant 120 / 120 Water Bolus Amount 400 / 400 600 / 600 Output: Stool 300 / 300 Urine Amount (Catheter) 450 / 450 500 / 500 Indwelling Temp Sensing 450 / 450 500 / 500 Catheter Other: Date of Last Bowel Movement 08/05/18 08/06/18 08/06/18 # Bowel Movements 4 Physical Exam: CONSTITUTIONAL/GENERAL: This is an elderly, male patient status post tracheostomy placement in no acute distress TUBES/LINES/DRAINS: PIV x 2, tracheostomy, SCDs SKIN: No jaundice, rashes, or lesions. No wounds seen anteriorly. Skin temperature appropriate. Not diaphoretic. HEAD: Atraumatic. Normocephalic. EYES: Pupils equal and round and reactive. Extraocular motions intact. No scleral icterus. No injection or drainage. Fundi not examined. ENT: Hearing grossly normal. Nose without bleeding or purulent drainage. NECK: Trachea midline. Supple, nontender. No palpable thyroid enlargement or nodularity. CARDIOVASCULAR: Regular rate and rhythm without murmurs, gallops, or rubs. No JVD. Peripheral pulses symmetric. RESPIRATORY/CHEST: Respirations unlabored on 40% FiO2 via T-piece status post tracheostomy. No wheezing, rales or rhonchi GASTROINTESTINAL: Abdomen firm, nontender. No guarding. Bowel sounds present. GENITOURINARY: Without palpable bladder distension. MUSCULOSKELETAL: Extremities without clubbing, cyanosis, or edema. No mottling or clubbing. LYMPHATICS: No palpable cervical or supraclavicular adenopathy. NEUROLOGICAL: On Precedex. Attempts to mouth words; follows some simple one- step commands intermittently. PSYCHIATRIC: No apparent hallucinations or other psychotic thought process. Diagnostic Tests Laboratory: Laboratory Results - last 72 hr 08/03/18 08/03/18 08/03/18 16:58 20:05 23:47 WBC RBC Hgb Hct MCV MCH MCHC RDW Plt Count MPV Neut % (Auto) Lymph % (Auto) Wilkes % (Auto) Eos % (Auto) Baso % (Auto) Neut # (Auto) Lymph # (Auto) Wilkes # (Auto) Eos # (Auto) Baso # (Auto) WBC Differential Differential Comment Sodium Potassium Chloride Carbon Dioxide Anion Gap BUN Creatinine Estimated GFR POC Glucose 158 H 177 H 204 H Random Glucose Calcium Phosphorus Magnesium Stl C.difficile DNA Amp St C. diff Tox Epid 027 Vancomycin Trough Random Vancomycin 08/04/18 08/04/18 08/04/18 05:17 09:00 13:15 WBC RBC Hgb Hct MCV MCH MCHC RDW Plt Count MPV Neut % (Auto) Lymph % (Auto) Wilkes % (Auto) Eos % (Auto) Baso % (Auto) Neut # (Auto) Lymph # (Auto) Wilkes # (Auto) Eos # (Auto) Baso # (Auto) WBC Differential Differential Comment Sodium Potassium Chloride Carbon Dioxide Anion Gap BUN Creatinine Estimated GFR POC Glucose 145 H 145 H 197 H Random Glucose Calcium Phosphorus Magnesium Stl C.difficile DNA Amp St C. diff Tox Epid 027 Vancomycin Trough Random Vancomycin 08/04/18 08/04/18 08/05/18 16:05 21:30 02:04 WBC RBC Hgb Hct MCV MCH MCHC RDW Plt Count MPV Neut % (Auto) Lymph % (Auto) Wilkes % (Auto) Eos % (Auto) Baso % (Auto) Neut # (Auto) Lymph # (Auto) Wilkes # (Auto) Eos # (Auto) Baso # (Auto) WBC Differential Differential Comment Sodium Potassium Chloride Carbon Dioxide Anion Gap BUN Creatinine Estimated GFR POC Glucose 132 H 146 H 171 H Random Glucose Calcium Phosphorus Magnesium Stl C.difficile DNA Amp St C. diff Tox Epid 027 Vancomycin Trough Random Vancomycin 08/05/18 08/05/18 08/05/18 05:28 07:50 07:50 WBC 10.4 RBC 2.40 L Hgb 7.6 L Hct 22.4 L MCV 93.5 MCH 31.6 MCHC 33.8 RDW 17.0 Plt Count 117 L MPV 9.5 Neut % (Auto) 79.7 H Lymph % (Auto) 13.5 Wilkes % (Auto) 6.5 Eos % (Auto) 0.0 Baso % (Auto) 0.3 Neut # (Auto) 8.3 H Lymph # (Auto) 1.4 Wilkes # (Auto) 0.7 Eos # (Auto) 0.0 Baso # (Auto) 0.0 WBC Differential . Differential Comment Auto diff final Sodium Potassium Chloride Carbon Dioxide Anion Gap BUN Creatinine 0.72 Estimated GFR Greater than 89 POC Glucose 118 H Random Glucose Calcium Phosphorus Magnesium Stl C.difficile DNA Amp St C. diff Tox Epid 027 Vancomycin Trough Random Vancomycin 08/05/18 08/05/18 08/05/18 08:23 13:51 14:22 WBC RBC Hgb Hct MCV MCH MCHC RDW Plt Count MPV Neut % (Auto) Lymph % (Auto) Wilkes % (Auto) Eos % (Auto) Baso % (Auto) Neut # (Auto) Lymph # (Auto) Wilkes # (Auto) Eos # (Auto) Baso # (Auto) WBC Differential Differential Comment Sodium 146 H Potassium 3.1 L Chloride 110 H Carbon Dioxide 30.5 Anion Gap 6 BUN 16 Creatinine 0.76 Estimated GFR Greater than 89 POC Glucose 119 H 114 H Random Glucose 109 H Calcium 7.5 L Phosphorus 3.2 Magnesium 1.6 Stl C.difficile DNA Amp St C. diff Tox Epid 027 Vancomycin Trough 33.1 H Random Vancomycin 08/05/18 08/05/18 08/05/18 16:00 16:20 20:27 WBC RBC Hgb Hct MCV MCH MCHC RDW Plt Count MPV Neut % (Auto) Lymph % (Auto) Wilkes % (Auto) Eos % (Auto) Baso % (Auto) Neut # (Auto) Lymph # (Auto) Wilkes # (Auto) Eos # (Auto) Baso # (Auto) WBC Differential Differential Comment Sodium Potassium Chloride Carbon Dioxide Anion Gap BUN Creatinine Estimated GFR POC Glucose 128 H 163 H Random Glucose Calcium Phosphorus Magnesium Stl C.difficile DNA Amp Negative St C. diff Tox Epid 027 Negative Vancomycin Trough Random Vancomycin 08/06/18 08/06/18 08/06/18 00:56 04:43 07:52 WBC RBC Hgb Hct MCV MCH MCHC RDW Plt Count MPV Neut % (Auto) Lymph % (Auto) Wilkes % (Auto) Eos % (Auto) Baso % (Auto) Neut # (Auto) Lymph # (Auto) Wilkes # (Auto) Eos # (Auto) Baso # (Auto) WBC Differential Differential Comment Sodium Potassium Chloride Carbon Dioxide Anion Gap BUN Creatinine Estimated GFR POC Glucose 182 H 206 H Random Glucose Calcium Phosphorus Magnesium Stl C.difficile DNA Amp St C. diff Tox Epid 027 Vancomycin Trough Random Vancomycin 32.7 08/06/18 11:50 WBC RBC Hgb Hct MCV MCH MCHC RDW Plt Count MPV Neut % (Auto) Lymph % (Auto) Wilkes % (Auto) Eos % (Auto) Baso % (Auto) Neut # (Auto) Lymph # (Auto) Wilkes # (Auto) Eos # (Auto) Baso # (Auto) WBC Differential Differential Comment Sodium Potassium Chloride Carbon Dioxide Anion Gap BUN Creatinine Estimated GFR POC Glucose 196 H Random Glucose Calcium Phosphorus Magnesium Stl C.difficile DNA Amp St C. diff Tox Epid 027 Vancomycin Trough Random Vancomycin Result Diagrams: 08/05/18 07:50 08/05/18 14:22 Microbiology: Microbiology 08/03/18 14:30 Aerobic Blood Culture - Preliminary Blood - Peripheral No growth in 3 days Anaerobic Blood Culture - Final Staphylococcus epidermidis 08/03/18 14:56 Aerobic Blood Culture - Final Blood - Peripheral Staphylococcus coag negative Anaerobic Blood Culture - Final Staphylococcus epidermidis 08/02/18 09:30 Urine Culture - Final Catheterized Urine Enterococcus faecalis Klebsiella pneumoniae Imaging: Abdomen Ultrasound 06/21/18 00:00 CONCLUSION: 1. No ascites is identified within the abdomen. Abdomen/Bladder Ultrasound 06/28/18 00:00 CONCLUSION: 1. Echogenic kidneys characteristic of medical renal disease. No hydronephrosis. Bladder decompressed by [facility] Chest CTA 07/02/18 00:00 CONCLUSION: 1. No pulmonary embolus. 2. Diffuse but basilar predominant bilateral airspace disease. 3. Endotracheal and endobronchial secretions are demonstrated. 4. Moderate emphysema. 5. Left ventricular hypertrophy. Abdomen/Pelvis CT 07/10/18 08:31 CONCLUSION: 1. There is gas and fluid distending the colon. The patient has a rectal tube in place however the rectal tube is kinked back on itself and occluded. The overall size of the colon has mildly increased when compared to previous exam. The small bowel is normal in caliber. 2. Interval development of a small left basilar effusion and atelectasis. Venous Doppler Study 07/15/18 00:00 CONCLUSION: 1. Limited suboptimal examination. 2. Nonocclusive thrombus in the jugular vein. Abdomen X-Ray 08/01/18 09:59 CONCLUSION: NG tube in place. Mild gaseous distention of portions of colon. Chest X-Ray 08/03/18 06:00 CONCLUSION: Stable bibasilar airspace opacity representing either atelectasis or airspace consolidation. There is also a questionable hazy opacity at the right base which could indicate a small pleural effusion. 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 - Symptom Scale (1) Pain 0-10 Scale: Unable to quantify (2) Dyspnea 0-10 Scale: Unable to quantify (3) Agitation 0-10 Scale: Unable to quantify Pertinent Non-Medical Issues: Psychosocial: Patient is a . He is a . He has been with his girlfriend (Mariam), who is also his caregiver, for approximately 15 years Spiritual: Orthodoxy mark Legal: Healthcare designation form completed 07/01/2018 designates patient's sister (Evita) as the healthcare surrogate decision-maker. Evita was out of town for 2 weeks and on reachable; she returned today 08/06/2018. During her absence, provisional healthcare proxy decision making reverted to the patient's daughter. Ethical issues impacting care: No known ethical issues impacting care at this time Important Contacts: Stephanie Craig, daughter: [phone] Felicitas Hood, other relationship: [phone] Sara Maldonado, sister: [phone] Evita Zavala, sister: [phone] Prognosis: Patient is an elderly male with severe COPD who was admitted with a COPD exacerbation. He has been in and out of the intensive care unit with recurrent respiratory failure. Status post tracheostomy placement on 08/02/2018. Given patient's advanced age, complex medical history and poor performance status, he will remain at risk for ongoing decline and complications. Code Status: Full Code Plan: * FULL CODE * Decision making: Healthcare surrogate designation form completed 07/01/2018 designates the patient's sister, Evita Og, as the healthcare surrogate decision-maker. However, she has been out of town for approximately 2 weeks and will returning tomorrow. During Evita's absence, provisional healthcare proxy decision making reverted back to the patient daughter. * Discussed patient with bedside RN (Jennifer) as well as Dr. Foster * Spoke with patient's sister/HCS (Evita Og) via telephone. She got home from a cruise earlier today. Medical update provided. Evita is understands that during her absence during Evita's absence the patient's daughter was acting as provisional healthcare proxy per [place] statutes. * Benefits and burdens of PEG tube placement were discussed. Patient's sisters (Vikcie) arrived at the hospital later this afternoon. They got home from a cruise earlier today and have a tomorrow. They will likely proceed with PEG tube placement in the upcoming days. Tentative family meeting on 08/08/2018. Spoke with patient's daughter (Stephanie) on 08/04/2018. She will be arriving in [place] either today or tomorrow. She was amenable to PEG tube placement at that time. * Symptom management: Pain: Multifactorial. Contributing factors include chronic back pain, abdominal distention, colonic ileus, infection, invasive lines, intubation. On Precedex. Oxycodone/acetaminophen (5/325mg) is available q4 hours PRN for pain rated 6-10. Patient has has 3 doses oxycodone/acetaminophen in the past 24hours. PRN acetaminophen is also ordered. Dyspnea: Respirations unlabored on 40% FiO2 via T-piece status post tracheostomy on 08/02/2018. Oxygen saturations in the high 90s. Follow-up chest x-ray this morning showing mild basilar density, likely atelectasis. No effusion or pneumothorax was noted. Pulmonology following. On Albuterol nebulizers (scheduled and PRN), Pulmicort every 12 hours and Solu-Medrol daily. Agitation:Patient remains on Precedex infusion due to ongoing agitation. Plan to initiate Seroquel this evening in an attempt to manage agitation with subsequent discontinuation of Precedex. * Palliative care will continue to follow this patient throughout his hospitalization to establish trust, assist with symptom management and clarification of medical treatment goals. .
--- NOTE | 2018-08-06 15:01 | P.PNCC ---
Subjective Subjective Remarks/Hospital Course: Mr. Curry is a 73-year-old -[place] male with past medical history significant for COPD on 3 L nasal cannula, hypertension, hyperlipidemia and anxiety who was admitted to the hospitalist service on 06/19/2018 for worsening shortness of breath due to COPD exacerbation. He was treated with IV Solu- Medrol, IV antibiotics, breathing treatments gradually improved. Patient was also complaining about dyspepsia and underwent EGD by GI yesterday. Per report the EGD was normal but patient developed worsening shortness of breath and COPD exacerbation postprocedure, possibly from aspiration after sedated. Two ABGs done yesterday showed hypercapnic respiratory failure second 1 was on BiPAP and this was improved with pH 7.3 with PCO2 of 74. Patient remained on BiPAP overnight however was noticed to be lethargic today a.m., stat ABG showed pH of 7.21 PCO2 110 PO2 88 while on BiPAP. Patient was lethargic intermittently dozing off due to CO2 narcosis. Critical care medicine was consulted and I immediately evaluated the patient. Patient had obviously failed BiPAP I proceeded with endotracheal intubation placed on mechanical ventilation. Postintubation I have ordered single dose of Solu-Medrol 125 mg x1 continue Solu -Medrol 60 every 8, discontinue ceftriaxone and start cefepime 2 g IV every 8 hours continue azithromycin. Add budesonide inhaled, placed on scheduled DuoNeb every 4 hours and as needed. 06/27: Patient was intubated yesterday for severe hypercapnic respiratory failure. Currently remains intubated sedated and intubated remains diminished bilaterally. Heavily sedated for ventilator synchrony 06/28: Urine output significantly improved with fluid resuscitation. Creat down trending now 2 from 2.3, UO >3.3 L. Remains intubated sedated. Will initiate daily sedation vacation and CPAP trials 06/29: More awake today tolerating CPAP trials intermittently follows commands but gets agitated/frustrated fast. Urine output remains excellent creatinine 1.4. However sodium increasing 158 today. Night skein inspector had changed fluid to D5 W for free water replacement. Due to hypoglycemia will change to quarter normal saline at 150 mL/h repeat CMP in the afternoon 06/30 Patient was extubated yesterday. Awake 07/01 Patient is lying in bed in NAD. T: 100.5 07/02: Intubated early this morning due to acute hypoxic respiratory failure. Central line placed due to hypotension. Plan for GI perform endoscopic decompression of this large bowel today. Arousable and does follow commands. Placed on argatroban 07/03: Currently, intubated with borderline blood pressure. Central line placed yesterday due to hypotension. Did not move bowels despite 1 L of fluid from colonoscopy yesterday and multiple laxatives provided. See orders for additional laxatives today. Might need neostigmine. 07/04 Patient remains intubated and sedated with Diprivan. Given Neostigmine last night. KUB this morning showed colonic ileus. Afebrile. On Argatroban. 07/05 No events overnight, sedated with Diprivan and intubated. Off Argatroban. 07/06 Patient remains intubated and sedated. Afebrile. 07/07 Patient remains intubated, s/p decompressive colonoscopy yesterday. Awake. 07/08 Patient s/p extubation yesterday. Awake and alert. 07/09 Patient is awake, alert lying in bed in NAD. Afebrile. 07/10 Patient is awake and alert, Afebrile. 07/11 Patient s/p decompressive colonoscopy yesterday. Afebrile. On Lasix drip.( UOP: 2800ml overnight). Cr: 3.0 from 2.25. 07/12 Patient is awake, alert given Neostigmine overnight. NGT to LIWS, off Lasix drip. 07/13: Resting comfortably in bed in no acute distress. 3 bowel movements documented. Remains n.p.o. Bladder pressures around 6. Potassium being replaced. Remains anemic around 7. 07/14 Patient is lying in bed in NAD. Afebrile. 07/15 No events overnight. Afebrile. 07/16: Resting in bed mild distress. Abdomen remains distended. Hemoglobin has dropped to 6.2 2 units of PRBC ordered. Patient underwent decompressive colonoscopy by Dr. Berrios for colonic ileus 07/17: No significant overnight events, patient states that he wants to get out of bed to a chair as he is having rectal discomfort. 07/18: Patient reportedly had a BM after digital rectal exam yesterday, states that he's been passing flatus "every now and then" overnight. No plans for OR or sigmoidoscopy as per colorectal service, OK to transfer out of [facility]. 07/19: Patient transferred to [facility] yesterday, complained of shortness of breath again today. An ABG showed a pCO2 of 79 so he was placed on bipap and transferred to [facility]. Most recent ABG shows pCO2 of 66, KUB still has abdominal distension but appears to be improved when compared to KUB from 07/15. Patient has reportedly been having bowel movements and passing flatus overnight. 07/20: No dramatic improvement in abdominal distention however abdomen soft. The patient was able to breathe comfortably overnight and remained alert. This morning the BiPAP mask was removed for half an hour and the patient did well without evidence of CO2 retention or somnolence. Reconsult note 07/23: The patient was a halicat from the [facility] floor. Patient was noted to be somnolent, had difficulty breathing. Stat ABG was performed revealing a PCO2 of 113. The patient was placed on BiPAP and transferred to [facility]. Currently remains on CPAP respiratory rate is 25 , 16/5 with an FiO2 35%. 07/24: Overnight the patient was placed on BiPAP 10/5 refusing BiPAP pulling out IVs. The patient became tachycardic refusing p.o. medications. The patient was placed on a Cardizem infusion currently at 5 mg an hour. Patient is more compliant at this time the patient's BiPAP settings were increased to 15 /5 35% stat ABGs were ordered the patient was noted to have a PCO2 of 89, continues with hypercapnic respiratory failure in the setting of severe COPD. Extensive discussion with family at bedside the patient's sister and daughter provided medical status update on recent transfer to ICU and current standing. Inform family that patient is at risk for for emergent intubation. Repeat ABG pending this evening. 07/25: Patient noted to have episodes of agitation continually removing BiPAP. I discussed with patient the criticality of his illness and possible intubation patient now agrees to wear BiPAP with exception of meals. Patient's diet was advanced to clear liquid noted improvement of chest x-ray patient is noted to have last bowel movement approximately 2 days ago we will continue to monitor and follow-up GI recommendations . Noted electrolyte repletion at this time. PCO2 now in the 60s. 07/26: Patient continues to be noncompliant with BiPAP mask. ABGs obtained noting a PO2 of 45.6. The patient was emergently intubated this afternoon. Chest x-ray and repeat ABG pending at this time. Noted patient's last bowel movement last night. 07/27: Afebrile. Remains on ventilator. Will start tube feeding today. BM noted overnight. Replacing potassium phosphate, calcium chloride x1 now. And magnesium sulfate 07/28: Afebrile. Did not tolerate CPAP trial the same. Tolerating tube feeds today. Last bowel movement yesterday 09/26. Mild ileus on abdominal x-ray today. 07/29: Afebrile. Tolerated CPAP times 3 hours. He is intolerant to P. 2 bowel movements. Abdominal x-ray unchanged but no signs of obstructive or ileus. 07/30: Afebrile. Currently on CPAP trials. Positive BM. No change in neurological status. Increasing metoprolol to 5 mg IV every 6 hours. Subjective 07/31: Again on CPAP trials. Awake and alert on dexmedetomidine drip. Will put on metoprolol tartrate 25 mg every 8 hours and titrate. Positive BM. Recheck KUB in a.m. 08/01. 08/01: Currently tolerating CPAP, but requiring 15 pressure support. Patient had been intubated 3 times this admission, according to the caregiver and go from had to do patient's a total of several intubation in the last 2-3 months. I discussed with the patient was agreeable for tracheostomy, I also discussed with Stephanie patient's daughter and she has given consent for tracheostomy. Plan for tracheostomy tomorrow 08/02: Patient currently on Precedex awake alert not tolerating CPAP trials. Plan for tracheostomy today. Transfuse 1 unit PRBC 1 pack units of platelets prior to trach 08/03: Patient remains calm on the vent currently tolerating pressure support 06/06. Status post tracheostomy yesterday no significant bleeding. Platelet count 103 today. 08/04: Patient placed on CPAP trials this a.m. and continues without difficulty. Precedex infusion currently at 1.5 mcgs/kg/hour. Tentative plan for PEG tube placement procedure on hold awaiting discussion with family, POA. Patient continues to have large bowel movements. 08/05: Continued copious large bowel movement. Fecal containment device / Dignashield applied. Placement of PEG tube continues to be on hold ,due to the inability to contact the POA. 08/06: Palliative care front desk team member Ms. Pittman had extensive meeting with the patient's POA tentative plan for placement of PEG tube. 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 Brown infectious disease. Patient continues to be agitated and requires Precedex infusion currently at 1.5, plan to initiate Seroquel this evening and attempts to decrease agitation, and subsequently disc continue Precedex infusion. The patient has been initiated on trach collar trials and continues greater than 6 hours. Objective Vital Signs / I&O: Vital Signs 08/05/18 15:00 08/05/18 16:00 08/05/18 16:24 Temperature 98.4 F Pulse Rate 87 97 H 74 Respiratory Rate 24 27 H 17 Blood Pressure 117/55 L 105/59 L Pulse Oximetry 100 95 08/05/18 17:58 08/05/18 19:24 08/05/18 19:47 Temperature Pulse Rate 93 H 85 Respiratory Rate 26 H 27 H Blood Pressure Pulse Oximetry 100 98 08/05/18 20:00 08/05/18 22:00 08/05/18 23:20 Temperature 98.7 F Pulse Rate 90 90 85 Respiratory Rate 28 H 24 Blood Pressure 99/53 L Pulse Oximetry 99 99 08/06/18 00:00 08/06/18 02:00 08/06/18 03:44 Temperature 99.2 F Pulse Rate 90 90 95 H Respiratory Rate 24 25 H Blood Pressure 96/55 L Pulse Oximetry 98 96 08/06/18 04:00 08/06/18 06:00 08/06/18 07:40 Temperature 99.0 F Pulse Rate 93 H 98 H 92 H Respiratory Rate 25 H 25 H Blood Pressure 97/53 L Pulse Oximetry 96 08/06/18 08:00 08/06/18 08:20 08/06/18 10:00 Temperature 98.6 F Pulse Rate 104 H 106 H Respiratory Rate 26 H Blood Pressure 102/55 L Pulse Oximetry 95 100 08/06/18 11:48 08/06/18 12:00 08/06/18 14:00 Temperature 98.8 F Pulse Rate 101 H 108 H 108 H Respiratory Rate 24 28 H Blood Pressure 109/68 Pulse Oximetry Intake & Output 08/05/18 08/06/18 08/06/18 18:59 06:59 18:59 Intake Total 1787.5 / 1787.5 1050 / 1050 450 / 450 Output Total 450 / 450 800 / 800 Balance 1337.5 / 1337.5 250 / 250 450 / 450 Weight 79.8 kg Intake: IV 1112.5 / 1112.5 450 / 450 Precedex Inj 1,000 MCG In NS 500 / 500 250 / 250 Inj 240 ML @ 0.2 MCG/KG/HR 3.8 mls/hr IV.CONT TITRATE PRN Rx#: [id number] Maxipime Inj 2,000 MG In NS Inj 300 / 300 200 / 200 100 ML @ 200 mls/hr IV.SIG Q8H WOLF Rx#:[id number] Vancomycin Inj 1,250 MG In NS 312.5 / 312.5 Inj 250 ML @ 250 mls/hr IV.SIG Q12H WOLF Rx#:[id number] Tube Feeding 155 / 155 450 / 450 Tube Irrigant 120 / 120 Water Bolus Amount 400 / 400 600 / 600 Output: Stool 300 / 300 Urine Amount (Catheter) 450 / 450 500 / 500 Indwelling Temp Sensing 450 / 450 500 / 500 Catheter Other: Date of Last Bowel Movement 08/05/18 08/06/18 08/06/18 # Bowel Movements 4 Result Diagrams: 08/05/18 07:50 08/05/18 14:22 Other Results: Laboratory Results CBC w Diff Cancelled 07/12/18 10:09 WBC 10.4 th/mm3 (4.0-11.0) 08/05/18 07:50 Corrected WBC Cancelled 07/12/18 10:09 RBC 2.40 mil/mm3 (4.50-5.90) L 08/05/18 07:50 Hgb 7.6 gm/dL (13.0-17.0) L 08/05/18 07:50 Hct 22.4 % (39.0-51.0) L 08/05/18 07:50 MCV 93.5 fL (80.0-100.0) 08/05/18 07:50 MCH 31.6 pg (27.0-34.0) 08/05/18 07:50 MCHC 33.8 % (32.0-36.0) 08/05/18 07:50 RDW 17.0 % (11.6-17.2) 08/05/18 07:50 Plt Count 117 th/mm3 (150-450) L 08/05/18 07:50 MPV 9.5 fL (7.0-11.0) 08/05/18 07:50 Prelim Diff (Auto) Slide review pending 08/01/18 10:46 Immature Gran % (Auto) Cancelled 07/12/18 10:09 Neut % (Auto) 79.7 % (16.0-70.0) H 08/05/18 07:50 Lymph % (Auto) 13.5 % (9.0-44.0) 08/05/18 07:50 [place]alier % (Auto) 6.5 % (0.0-8.0) 08/05/18 07:50 Eos % (Auto) 0.0 % (0.0-4.0) 08/05/18 07:50 Baso % (Auto) 0.3 % (0.0-2.0) 08/05/18 07:50 Immature Gran # (Auto) Cancelled 07/12/18 10:09 Neut # (Auto) 8.3 th/mm3 (1.8-7.7) H 08/05/18 07:50 Lymph # (Auto) 1.4 th/mm3 (1.0-4.8) 08/05/18 07:50 [place] # (Auto) 0.7 th/mm3 (0.0-0.9) 08/05/18 07:50 Eos # (Auto) 0.0 th/mm3 (0.0-0.4) 08/05/18 07:50 Baso # (Auto) 0.0 th/mm3 (0.0-0.2) 08/05/18 07:50 WBC Differential . 08/05/18 07:50 Diff Scan Auto diff confirmed 07/26/18 05:42 Seg Neuts % (Manual) 77 % (16-70) H 08/01/18 10:46 Band Neuts % (Manual) 4 % (0-6) 08/01/18 10:46 Lymphocytes % (Manual) 7 % (9-44) L 08/01/18 10:46 Atypical Lymphs % (Man) Cancelled 07/12/18 10:09 Monocytes % (Manual) 8 % (0-8) 08/01/18 10:46 Eosinophils % (Manual) Cancelled 07/12/18 10:09 Basophils % (Manual) Cancelled 07/12/18 10:09 Metamyelocytes % (Man) 1 % (0-1) 08/01/18 10:46 Myelocytes % (Man) 2 % (0-0) H 08/01/18 10:46 Promyelocytes % (Man) 1 % (0-0) H 08/01/18 10:46 Blast Cells % (Manual) Cancelled 07/12/18 10:09 Plasma Cell % (Manual) Cancelled 07/12/18 10:09 Other Cells % Cancelled 07/12/18 10:09 Abs Neuts (Manual) 6.6 th/mm3 (1.8-7.7) 08/01/18 10:46 Nucleated RBCs/100 WBC 1 /100 WBC (0-0) H 07/31/18 04:57 Differential Comment Auto diff final 08/05/18 07:50 Hypersegmented Neuts Cancelled 07/12/18 10:09 Smudge Cells Cancelled 07/12/18 10:09 Toxic Granulation Cancelled 07/12/18 10:09 Toxic Vacuolation Cancelled 07/12/18 10:09 Dohle Bodies Cancelled 07/12/18 10:09 Platelet Estimate Low (Normal) L 08/01/18 10:46 Platelet Morphology Normal (Normal) 08/01/18 10:46 RBC Morphology Normal (Normal) 07/06/18 03:29 Dimorphic RBCs Cancelled 07/12/18 10:09 Polychromasia Cancelled 07/12/18 10:09 Basophilic Stippling Moderate (None) H 07/24/18 04:43 Spherocytes Cancelled 07/12/18 10:09 Pappenheimer Bodies Cancelled 07/12/18 10:09 Sickle Cells Cancelled 07/12/18 10:09 Target Cells Cancelled 07/12/18 10:09 Tear Drop Cells Cancelled 07/12/18 10:09 Ovalocytes Cancelled 07/12/18 10:09 Stomatocytes 1+ (None) H 07/24/18 04:43 Helmet Cells Cancelled 07/12/18 10:09 Carlson-Derma Bodies Cancelled 07/12/18 10:09 Shankar Cells Cancelled 07/12/18 10:09 Acanthocytes (Spur) Cancelled 07/12/18 10:09 Rouleaux Cancelled 07/12/18 10:09 Keratocytes Cancelled 07/12/18 10:09 Smear Path Review 07/19/18 05:56 Haptoglobin 94 mg/dL (30-200) 07/19/18 15:18 Hematology Comments 07/09/18 09:44 PT 10.0 sec (9.8-11.6) 08/02/18 04:15 INR 1.0 Ratio 08/02/18 04:15 APTT 31.1 sec (23.4-31.7) 07/19/18 15:18 Fibrinogen 154 mg/dL (227-377) L 07/19/18 15:18 Puncture Site Right radial 07/28/18 05:08 Patient Temperature 98.6 07/28/18 05:08 O2 Saturation 95 % (90-100) 07/28/18 05:08 ABG pH 7.54 (7.380-7.420) H* 07/28/18 05:08 ABG pCO2 45 mmHg (38-42) H 07/28/18 05:08 ABG pO2 100 mmHG (61-120) 07/28/18 05:08 ABG HCO3 38 mmol/L (22-26) H 07/28/18 05:08 ABG O2 Content 11.7 Vol % (12.0-20.0) L 07/28/18 05:08 ABG Base Excess 13.8 mmol/L (-2-2) H 07/28/18 05:08 ABG Methemoglobin 2.4 % (0-2) H 07/28/18 05:08 Raymon Test Present 07/28/18 05:08 Hemoglobin 8.7 G/DL (12.0-16.0) L 07/28/18 05:08 Carboxyhemoglobin 1.2 % (0-4) 07/28/18 05:08 O2 Delivery Device Ventilator 07/28/18 05:08 Liter Flow 30.00 L/M 07/26/18 15:55 Vent Setting Prvc/ac 07/28/18 05:08 Inspired O2 35 % 07/28/18 05:08 Critical Value Yes 07/28/18 05:08 Sodium 146 meq/L (136-145) H 08/05/18 14:22 Potassium 3.1 meq/L (3.5-5.1) L 08/05/18 14:22 Chloride 110 meq/L (98-107) H 08/05/18 14:22 Carbon Dioxide 30.5 meq/L (21.0-32.0) 08/05/18 14:22 Anion Gap 6 meq/L (5-15) 08/05/18 14:22 BUN 16 mg/dL (7-18) 08/05/18 14:22 Creatinine 0.76 mg/dL (0.60-1.30) 08/05/18 14:22 Estimated GFR Greater than 89 mL/min (>89) 08/05/18 14:22 POC Glucose 196 mg/dl (68-110) H 08/06/18 11:50 Random Glucose 109 mg/dL (74-106) H 08/05/18 14:22 Lactic Acid 0.9 mmol/L (0.4-2.0) 07/14/18 11:05 Calcium 7.5 mg/dL (8.5-10.1) L 08/05/18 14:22 Prot Corrected Calcium 8.0 mg/dL (8.5-10.1) L 07/28/18 05:02 Calcium Adj for Albumin 8.1 mg/dL (8.5-10.1) L 08/03/18 04:27 Phosphorus 3.2 mg/dL (2.5-4.9) 08/05/18 14:22 Magnesium 1.6 mg/dL (1.5-2.5) 08/05/18 14:22 Total Bilirubin 0.6 mg/dL (0.2-1.0) 08/03/18 04:27 AST 39 U/L (15-37) H 08/03/18 04:27 ALT 44 U/L (12-78) 08/03/18 04:27 Alkaline Phosphatase 127 U/L (45-117) H 08/03/18 04:27 Ammonia Less than 10 mcmol/L (11-32) L 07/03/18 04:30 Lactate Dehydrogenase 436 U/L (87-241) H 07/15/18 12:25 Total Creatine Kinase 362 U/L (39-308) H 08/01/18 10:46 CK-MB (CK-2) 2.0 ng/mL (0.5-3.6) 08/01/18 10:46 CK-MB (CK-2) % 0.6 % (0.0-4.0) 08/01/18 10:46 Troponin I Less than 0.02 ng/mL (0.02-0.05) L 07/03/18 04:30 B-Natriuretic Peptide 32 pg/mL (0-100) 06/23/18 13:32 Total Protein 5.7 g/dL (6.4-8.2) L 08/03/18 04:27 Albumin 2.3 g/dL (3.4-5.0) L 08/03/18 04:27 Lipase 61 U/L (73-393) L 08/01/18 10:46 Serotonin Release Assay Negative (NEGATIVE) 07/02/18 05:42 Vitamin A 23 mcg/dL (38-98) L 07/28/18 12:52 Vitamin B12 855 pg/mL (193-986) 07/02/18 13:27 Folate 12.1 ng/mL (3.1-17.5) 07/02/18 13:27 Procalcitonin 0.67 ng/mL (0.00-0.08) H 07/11/18 02:48 Urine Color Yellow (Yellw/Straw) 07/28/18 06:00 Urine Clarity Cloudy (Clear) H 07/28/18 06:00 Urine pH 6.0 (5.0-8.5) 07/28/18 06:00 Ur Specific [place] 1.010 (1.002-1.035) 07/28/18 06:00 Urine Protein 30 mg/dL (Neg-Trace) H 07/28/18 06:00 Urine Glucose (UA) 150 mg/dL (Negative) H 07/28/18 06:00 Urine Ketones Negative mg/dL (Negative) 07/28/18 06:00 Urine Occult Blood Small (Negative) H 07/28/18 06:00 Urine Nitrate Negative (Negative) 07/28/18 06:00 Urine Bilirubin Negative (Negative) 07/28/18 06:00 Urine Urobilinogen Less than 2 mg/dL (Less than 2) 07/28/18 06:00 Ur Leukocyte Esterase Large (Negative) H 07/28/18 06:00 Urine RBC 164 /hpf (0-3) H 07/28/18 06:00 Urine WBC /hpf (0-5) 07/28/18 06:00 Urine WBC Clumps Few (None) H 07/28/18 06:00 Amorphous Sediment Few /hpf (None) H 07/14/18 21:55 Hyaline Casts 1 /lpf (0-3) 06/27/18 17:00 Urine Mucus Few /lpf (Occasional) H 07/28/18 06:00 Urine Yeast Many /hpf (None) H 07/28/18 06:00 Micro UA Comment Cath-culture ind 07/28/18 06:00 Ur Microscopic Review Not Reportable 07/28/18 06:00 Urine Culture Comments Cath-cult indicated 07/28/18 06:00 Urine Eosinophils None seen /HPF (None Seen) 07/10/18 20:50 Ur Random Creatinine 33 mg/dL (27-300) 07/13/18 13:30 Ur Random Sodium 78 meq/L 07/13/18 13:30 Nasal Screen MRSA (PCR) Not detected (Negative) 06/26/18 12:40 Stl C.difficile DNA Amp Negative (Negative) 08/05/18 16:00 St C. diff Tox Epid 027 Negative (Negative) 08/05/18 16:00 Vancomycin Trough 33.1 mcg/mL (5.0-10.0) H 08/05/18 14:22 Random Vancomycin 32.7 Comment 08/06/18 04:43 Heparin Dep Plt Ab OD 4.309 U/mL (0.000-1.0) H 06/30/18 11:30 Hep-Induced Plt Ab [place] Positive (Negative) H 06/30/18 11:30 ANNMARIE UFH Low Dose 0.1 3 %release (2.1-21.7) 07/02/18 05:42 ANNMARIE UFH Low Dose 0.5 2 %release (2.1-21.7) 07/02/18 05:42 ANNMARIE UFH High Dose 100 3 %release (2.1-21.7) 07/02/18 05:42 Acetylchol Rcpt Bind Ab Less than 0.30 nmol/L 07/24/18 16:24 Hepatitis A Ab Total Nonreactive 07/22/18 15:53 Hep Bs Antibody Less than 3.1 mIU/mL 07/22/18 15:53 Hep B Core IgM Ab Nonreactive (Nonreactive) 07/22/18 15:53 Hepatitis Be Antigen Nonreactive 07/22/18 15:53 Hepatitis C Antibody Nonreactive (Nonreactive) 07/22/18 15:53 Blood Type O Positive 08/02/18 08:33 Antibody Screen Negative 08/02/18 08:33 MTS Gel Crossmatch See Detail 08/02/18 08:33 Bld Prod Order Comment 08/02/18 08:33 Impressions Abdomen Ultrasound 06/21/18 00:00 CONCLUSION: 1. No ascites is identified within the abdomen. Abdomen/Bladder Ultrasound 06/28/18 00:00 CONCLUSION: 1. Echogenic kidneys characteristic of medical renal disease. No hydronephrosis. Bladder decompressed by [place] Chest CTA 07/02/18 00:00 CONCLUSION: 1. No pulmonary embolus. 2. Diffuse but basilar predominant bilateral airspace disease. 3. Endotracheal and endobronchial secretions are demonstrated. 4. Moderate emphysema. 5. Left ventricular hypertrophy. Abdomen/Pelvis CT 07/10/18 08:31 CONCLUSION: 1. There is gas and fluid distending the colon. The patient has a rectal tube in place however the rectal tube is kinked back on itself and occluded. The overall size of the colon has mildly increased when compared to previous exam. The small bowel is normal in caliber. 2. Interval development of a small left basilar effusion and atelectasis. Venous Doppler Study 07/15/18 00:00 CONCLUSION: 1. Limited suboptimal examination. 2. Nonocclusive thrombus in the jugular vein. Abdomen X-Ray 08/01/18 09:59 CONCLUSION: NG tube in place. Mild gaseous distention of portions of colon. Chest X-Ray 08/03/18 06:00 CONCLUSION: Stable bibasilar airspace opacity representing either atelectasis or airspace consolidation. There is also a questionable hazy opacity at the right base which could indicate a small pleural effusion. Objective Remarks: GENERAL: 73-year-old chronically ill appearing elderly -[place] male lying in bed, awake and alert alert indicating nodding head to yes and no questions SKIN: Warm and dry HEAD: Normocephalic. EYES: PERRL NECK: Supple, trachea midline. New tracheostomy with minimal dry blood around the site currently on trach collar at 40% CARDIOVASCULAR: Normal rhythm. S1, S2. No S4. No murmur RESPIRATORY: Diminished breath sounds in bases noted. B/L equal air entry, patient. tolerating trach collar trials GASTROINTESTINAL: Abdomen less distended, non-tender, no guarding, bowel sounds present MUSCULOSKELETAL: Trace to bilateral upper/ lower extremity edema, warm and well- perfused NEURO: Alert awake, periods of agitation Follows commands by moving upper and lower extremities withdraws to pain bilateral upper and lower extremities. Assessment and Plan - Assessment and Plan Plan: NEURO/Psych: Altered mental status due to CO2 retention -Discontinued Precedex 08/03 -F/U acetylcholine receptor and autoantibodies was negative RESP: Hypercapnic respiratory failure Acute COPD exacerbation -Extubated 06/29. Reintubated 07/02 extubated again 07/07, reintubated 07/26 -Status post tracheostomy yesterday 08/02/2018. CPAP trial with T-piece up to 4 hours today -Albuterol/ipratropium aerosols every 4 hours scheduled and albuterol aerosols every 2 hours as needed -Continue steroids IV, Inhaled budesonide CV: Essential hypertension - Monitor HR and BP keep MAP>65mmHg - Toprol tartrate 25 mg by tube every 8 hours GI: Colonic ileus -KUB 07/13: Stable nonobstructive colonic distention. -Given Neostigmine 07/11. -s/p repeat decompressive colonoscopy 07/10 and 07/15 -Continue pantoprazole -On docusate sodium/senna 1 tablet twice daily, lactulose 30 cc 4 times daily, polyethylene glycol 17 g daily. Fleets enema daily. Naltrexone 12 mg subcu daily -NG tube. Tube feeding with Glucerna 1.5 goal 45 cc daily per rectum recent recommendation -Abdominal x-ray revealed nonspecific bowel gas pattern. 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 Follow-up GI recommendations regarding any type of surgical considerations FEN//renal: Hypernatremia Hypophosphatemia Hypopotassemia -Monitor renal function, I/O's, avoid nephrotoxins -Renal function stable -Renal- Dr. Figueroa has followed -Repletion of electrolytes per protocol -Free water 200 cc every 6 hours -08/05 C. difficile PCR-negative ID: -Off abx monitor for signs of infections (Fever, WBC) WBC stable -BC and urine cx from 07/11- NG -07/02 BC: NGTS, sputum cx 07/02:normal resp justyn -ID is following- Dr. Brown PRN -Urine culture from 07/28/2018 growing Koki. Repeat cultures sent 08/02/2018 after replacing More[place] HEME: Normocytic anemia Thrombocytopenia -Monitor CBC, coags, Hep PLT is positive. ANNMARIE negative. Hematology is following. Off argatroban drip -s/p 2U PRBCs on 07/16, Hgb 8.8, used for hemoglobin less than 7 -Give 1 unit of PRBC and 1 pack units of platelets today in anticipation of tracheostomy -Stable thrombocytopenia-avoid medications that precipitate thrombocytopenia ENDO: -Sliding scale insulin medium scale aspart insulin every 4 hours. Continue insulin detemir 10 units twice daily PROPH: -Bilateral lower extremity SCDs. PPI -Doppler US LE negative DVT 07/02 -Continue Lovenox 40 mg daily LINES: -Utilize peripheral IVs Level 2 follow-up Code Status: Full Discussed Condition With: Dr. Brown infectious disease, PUL[employer] MIXER OPERATOR at bedside, and patient
--- NOTE | 2018-08-06 19:03 | P.PNPL ---
Subjective Interval history: 73 YOAA male with COPD, 02 dependent Follows at [facility] Admitted with AMS, COPD exac Reintubated 07/26 due to worsening resp status Had Trach, doing well On Trach collar On Precedex Awake, follows commands, wants to eat Physical Exam Vital signs: Vital Signs 08/05/18 19:24 08/05/18 19:47 08/05/18 20:00 Temperature 98.7 F Pulse Rate 85 90 Respiratory Rate 26 H 27 H 28 H Blood Pressure 99/53 L Pulse Oximetry 100 98 99 08/05/18 22:00 08/05/18 23:20 08/06/18 00:00 Temperature 99.2 F Pulse Rate 90 85 90 Respiratory Rate 24 24 Blood Pressure 96/55 L Pulse Oximetry 99 98 08/06/18 02:00 08/06/18 03:44 08/06/18 04:00 Temperature 99.0 F Pulse Rate 90 95 H 93 H Respiratory Rate 25 H 25 H Blood Pressure 97/53 L Pulse Oximetry 96 96 08/06/18 06:00 08/06/18 07:40 08/06/18 08:00 Temperature 98.6 F Pulse Rate 98 H 92 H 104 H Respiratory Rate 25 H 26 H Blood Pressure 102/55 L Pulse Oximetry 95 08/06/18 08:20 08/06/18 10:00 08/06/18 11:48 Temperature Pulse Rate 106 H 101 H Respiratory Rate 24 Blood Pressure Pulse Oximetry 100 08/06/18 12:00 08/06/18 14:00 08/06/18 15:00 Temperature 98.8 F Pulse Rate 108 H 108 H 99 H Respiratory Rate 28 H 27 H Blood Pressure 109/68 Pulse Oximetry 08/06/18 16:00 08/06/18 18:00 Temperature 98.7 F Pulse Rate 110 H 103 H Respiratory Rate 26 H Blood Pressure 112/53 L Pulse Oximetry 100 Intake & Output 08/06/18 08/06/18 08/07/18 06:59 18:59 06:59 Intake Total 1050 / 1050 1376 / 1376 Output Total 800 / 800 650 / 650 Balance 250 / 250 726 / 726 Weight 79.8 kg Intake: IV 550 / 550 Precedex Inj 1,000 MCG In NS 250 / 250 Inj 240 ML @ 0.2 MCG/KG/HR 3.8 mls/hr IV.CONT TITRATE PRN Rx#: [id number] Maxipime Inj 2,000 MG In NS Inj 300 / 300 100 ML @ 200 mls/hr IV.SIG Q8H WOLF Rx#:[id number] Tube Feeding 450 / 450 426 / 426 Water Bolus Amount 600 / 600 400 / 400 Output: Stool 300 / 300 200 / 200 Urine Amount (Catheter) 500 / 500 450 / 450 Indwelling Temp Sensing 500 / 500 450 / 450 Catheter Other: Date of Last Bowel Movement 08/06/18 08/06/18 GENERAL: Obese AA male, NAD SKIN: Warm and dry. HEAD: Normocephalic. EYES: No scleral icterus. No injection or drainage. NECK: Supple, trachea midline. No JVD or lymphadenopathy. Has Trach CARDIOVASCULAR: Regular rate and rhythm without murmurs, gallops, or rubs. RESPIRATORY: Breath sounds equal bilaterally. No accessory muscle use. GASTROINTESTINAL: Abdomen soft, non-tender, distended. MUSCULOSKELETAL: No cyanosis, or edema. BACK: Nontender without obvious deformity. No CVA tenderness. - Urinary Catheter Management Indwelling Urethral Catheter Cath placed during this visit: yes, but has since been removed by the nurse Reason for continuing: Acute urinary retention Insertion date: 07/14/18 Insertion time: 21:55 Removal date: 08/02/18 Removal time: 07:59 Straight Cath placed during this visit: no Condom Cath placed during this visit: no Indwelling Temp Sensing Catheter Cath placed during this visit: yes Reason for continuing: Acute urinary retention Insertion date: 08/02/18 Insertion time: 08:00 Assessment and Plan - Plan IMPRESSION: Hypercapnoic RF, COPD exac AMS improved 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 Abdominal distension, s/p decompression. 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
[2018-08-07] MEDS: Artificial Tears Opth Drops 15 ML Bottle EACH EYE SCH ×3 (00:16→17:38)
[2018-08-07] MEDS: Insulin NovoLOG Aspart Correctional Sugar Inj SQ SCH ×6 (00:16→20:13)
[2018-08-07] MEDS: Pantoprazole Inj 40 MG Vial IV.PUSH SCH ×2 (01:15→14:30)
[2018-08-07 05:47] LABS: Baso % (Auto) 0.3 % (0.0-2.0); Eos % (Auto) 0.1 % (0.0-4.0); Hematocrit 22.8 % (39.0-51.0); Hemoglobin 7.6 gm/dL (13.0-17.0); Lymph # (Auto) 0.9 th/mm3 (1.0-4.8); Lymph % (Auto) 8.2 % (9.0-44.0); Mean Corpuscular HGB Conc 33.2 % (32.0-36.0); Mean Corpuscular Hemoglobin 30.8 pg (27.0-34.0); Mean Corpuscular Volume 92.5 fL (80.0-100.0); Mean Platelet Volume 9.5 fL (7.0-11.0); Mono # (Auto) 0.7 th/mm3 (0.0-0.9); Mono % (Auto) 5.8 % (0.0-8.0); Neut # (Auto) 9.8 th/mm3 (1.8-7.7); Neut % (Auto) 85.6 % (16.0-70.0); Platelet Count 153 th/mm3 (150-450); Red Blood Count 2.46 mil/mm3 (4.50-5.90); Red Cell Distribution Width 16.5 % (11.6-17.2); White Blood Count 11.4 th/mm3 (4.0-11.0)
[2018-08-07 06:08] LABS: Calcium 8.2 mg/dL (8.5-10.1); Carbon Dioxide 28.6 meq/L (21.0-32.0); Magnesium 1.8 mg/dL (1.5-2.5); Potassium 3.4 meq/L (3.5-5.1)
[2018-08-07 06:11] LABS: Phosphorus 1.9 mg/dL (2.5-4.9); Vancomycin,Random 25.1 Comment
[2018-08-07] MEDS: Dexmedetomidine Inj 1,000 MCG in Sodium Chlor 0.9% Inj 240 ML IV.CONT PRN (08:00)
[2018-08-07] MEDS: Ascorbic Acid 500 MG Tablet PO SCH (08:24)
[2018-08-07 08:25] LABS: Lymphocytes 5 % (9-44); Monocytes 8 % (0-8); Platelet Estimate Normal (Normal); Platelet Morphology Normal (Normal)
[2018-08-07] MEDS: Calcium/Vitamin D 250/125 MG Tablet PO SCH (08:25)
[2018-08-07] MEDS: Multivitamin/Minerals Therapeutic Tablet PO SCH (08:25)
[2018-08-07] MEDS: Docusate Sodium Liq 100 MG/10 ML UDC NG/OG SCH ×2 (08:26→20:13)
[2018-08-07] MEDS: Enoxaparin Inj 40 MG/0.4 ML Syringe SQ SCH (08:26)
[2018-08-07] MEDS: Polyethylene Glycol 3350 17 GM Packet PO SCH (08:27)
[2018-08-07] MEDS: Sennosides Liq 8.8 MG/5 ML UDC NG/OG SCH ×2 (08:27→20:14)
[2018-08-07] MEDS: Bisacodyl 10 MG Supp RECTAL SCH (08:27)
[2018-08-07] MEDS: Insulin Detemir Inj 1,000 UNIT/10 ML Vial SQ SCH ×2 (08:28→20:14)
[2018-08-07] MEDS: Methylnaltrexone Inj 12 MG/0.6 ML Vial SQ SCH (08:29)
[2018-08-07] MEDS: Haloperidol Inj 5 MG/ML Ampul IV.PUSH PRN ×2 (08:50→12:41)
[2018-08-07] MEDS: Potassium Phosphate 500 MG Soluble Tablet PO PRN ×2 (08:51→13:05)
[2018-08-07] MEDS: Metoprolol Tartrate 25 MG Tablet PO SCH ×3 (11:32→17:39)
--- NOTE | 2018-08-07 15:52 | P.PNPL ---
Subjective Interval history: 73 YOAA male with COPD, 02 dependent Follows at [facility] Admitted with AMS, COPD exac. On Trach collar On Precedex Awake, follows commands, wants to eat Gets agitated Physical Exam Vital signs: Vital Signs 08/06/18 16:00 08/06/18 16:01 08/06/18 17:00 Temperature 98.7 F Pulse Rate 110 H 108 H 107 H Respiratory Rate 26 H 26 H 24 Blood Pressure 112/53 L 112/53 L 108/55 L Pulse Oximetry 100 100 97 08/06/18 18:00 08/06/18 19:00 08/06/18 19:22 Temperature Pulse Rate 104 H 96 H 101 H Respiratory Rate 23 29 H 20 Blood Pressure 104/59 L 103/60 Pulse Oximetry 100 98 08/06/18 19:29 08/06/18 20:00 08/06/18 20:01 Temperature 98.9 F Pulse Rate 109 H 112 H Respiratory Rate 23 34 H Blood Pressure 125/59 L 125/59 L Pulse Oximetry 98 100 99 08/06/18 21:00 08/06/18 22:00 08/06/18 23:00 Temperature Pulse Rate 116 H 114 H 104 H Respiratory Rate 22 21 23 Blood Pressure 128/64 139/63 115/56 L Pulse Oximetry 74 L 98 99 08/07/18 00:00 08/07/18 00:15 08/07/18 00:24 Temperature 98.5 F Pulse Rate 118 H 105 H Respiratory Rate 25 H 20 20 Blood Pressure 126/61 Pulse Oximetry 97 08/07/18 01:00 08/07/18 02:00 08/07/18 03:00 Temperature Pulse Rate 110 H 104 H 108 H Respiratory Rate 23 20 25 H Blood Pressure 121/56 L 132/62 Pulse Oximetry 99 100 99 08/07/18 03:01 08/07/18 03:24 08/07/18 04:00 Temperature 98.9 F Pulse Rate 106 H 102 H 112 H Respiratory Rate 24 20 26 H Blood Pressure 134/75 153/67 H Pulse Oximetry 99 93 L 08/07/18 04:01 08/07/18 05:00 08/07/18 05:01 Temperature Pulse Rate 113 H 111 H 110 H Respiratory Rate 22 26 H 26 H Blood Pressure 153/67 H 142/64 H Pulse Oximetry 100 97 96 08/07/18 06:00 08/07/18 07:00 08/07/18 07:47 Temperature Pulse Rate 99 H 93 H 97 H Respiratory Rate 27 H 22 21 Blood Pressure 128/70 114/60 Pulse Oximetry 97 100 100 08/07/18 08:00 08/07/18 09:00 08/07/18 10:00 Temperature 98.3 F Pulse Rate 107 H 112 H 111 H Respiratory Rate 24 23 27 H Blood Pressure 117/56 L 123/76 126/59 L Pulse Oximetry 95 95 97 08/07/18 11:00 08/07/18 12:00 08/07/18 14:00 Temperature 98.2 F Pulse Rate 101 H 100 H 108 H Respiratory Rate 24 26 H Blood Pressure 122/64 120/59 L Pulse Oximetry 99 99 Intake & Output 08/06/18 08/07/18 08/07/18 18:59 06:59 18:59 Intake Total 1376 / 1376 1437 / 1437 Output Total 650 / 650 900 / 900 Balance 726 / 726 537 / 537 Weight 81.5 kg Intake: IV 550 / 550 600 / 600 Precedex Inj 1,000 MCG In NS 250 / 250 500 / 500 Inj 240 ML @ 0.2 MCG/KG/HR 3.8 mls/hr IV.CONT TITRATE PRN Rx#: [id number] Maxipime Inj 2,000 MG In NS Inj 300 / 300 100 / 100 100 ML @ 200 mls/hr IV.SIG Q8H WOLF Rx#:[id number] Tube Feeding 426 / 426 437 / 437 Water Bolus Amount 400 / 400 400 / 400 Output: Stool 200 / 200 300 / 300 Urine Amount (Catheter) 450 / 450 600 / 600 Indwelling Temp Sensing 450 / 450 600 / 600 Catheter Other: Date of Last Bowel Movement 08/06/18 08/06/18 08/06/18 GENERAL: WBWN NAD SKIN: Warm and dry. HEAD: Normocephalic. EYES: No scleral icterus. No injection or drainage. NECK: Supple, trachea midline. No JVD or lymphadenopathy. Has Trach CARDIOVASCULAR: Regular rate and rhythm without murmurs, gallops, or rubs. RESPIRATORY: Breath sounds equal bilaterally. No accessory muscle use. GASTROINTESTINAL: Abdomen soft, non-tender, distended. MUSCULOSKELETAL: No cyanosis, or edema. BACK: Nontender without obvious deformity. No CVA tenderness. - Urinary Catheter Management Indwelling Urethral Catheter Cath placed during this visit: yes, but has since been removed by the nurse Reason for continuing: Acute urinary retention Insertion date: 07/14/18 Insertion time: 21:55 Removal date: 08/02/18 Removal time: 07:59 Straight Cath placed during this visit: no Condom Cath placed during this visit: no Indwelling Temp Sensing Catheter Cath placed during this visit: yes Reason for continuing: Acute urinary retention Insertion date: 08/02/18 Insertion time: 08:00 Assessment and Plan - Plan IMPRESSION: Hypercapnoic RF, COPD exac AMS improved 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 Abdominal distension, s/p decompression. Ileus PLAN: Cont Trach collar Trach care Sedation with Precedex Aerosol nebs Supplement 02 Monitor BS
--- NOTE | 2018-08-07 17:09 | P.PNCC ---
Subjective Subjective Remarks/Hospital Course: Mr. Curry is a 73-year-old -[place] male with past medical history significant for COPD on 3 L nasal cannula, hypertension, hyperlipidemia and anxiety who was admitted to the hospitalist service on 06/19/2018 for worsening shortness of breath due to COPD exacerbation. He was treated with IV Solu- Medrol, IV antibiotics, breathing treatments gradually improved. Patient was also complaining about dyspepsia and underwent EGD by GI yesterday. Per report the EGD was normal but patient developed worsening shortness of breath and COPD exacerbation postprocedure, possibly from aspiration after sedated. Two ABGs done yesterday showed hypercapnic respiratory failure second 1 was on BiPAP and this was improved with pH 7.3 with PCO2 of 74. Patient remained on BiPAP overnight however was noticed to be lethargic today a.m., stat ABG showed pH of 7.21 PCO2 110 PO2 88 while on BiPAP. Patient was lethargic intermittently dozing off due to CO2 narcosis. Critical care medicine was consulted and I immediately evaluated the patient. Patient had obviously failed BiPAP I proceeded with endotracheal intubation placed on mechanical ventilation. Postintubation I have ordered single dose of Solu-Medrol 125 mg x1 continue Solu -Medrol 60 every 8, discontinue ceftriaxone and start cefepime 2 g IV every 8 hours continue azithromycin. Add budesonide inhaled, placed on scheduled DuoNeb every 4 hours and as needed. 06/27: Patient was intubated yesterday for severe hypercapnic respiratory failure. Currently remains intubated sedated and intubated remains diminished bilaterally. Heavily sedated for ventilator synchrony 06/28: Urine output significantly improved with fluid resuscitation. Creat down trending now 2 from 2.3, UO >3.3 L. Remains intubated sedated. Will initiate daily sedation vacation and CPAP trials 06/29: More awake today tolerating CPAP trials intermittently follows commands but gets agitated/frustrated fast. Urine output remains excellent creatinine 1.4. However sodium increasing 158 today. Night cyber security consultant had changed fluid to D5 W for free water replacement. Due to hypoglycemia will change to quarter normal saline at 150 mL/h repeat CMP in the afternoon 06/30 Patient was extubated yesterday. Awake 07/01 Patient is lying in bed in NAD. T: 100.5 07/02: Intubated early this morning due to acute hypoxic respiratory failure. Central line placed due to hypotension. Plan for GI perform endoscopic decompression of this large bowel today. Arousable and does follow commands. Placed on argatroban 07/03: Currently, intubated with borderline blood pressure. Central line placed yesterday due to hypotension. Did not move bowels despite 1 L of fluid from colonoscopy yesterday and multiple laxatives provided. See orders for additional laxatives today. Might need neostigmine. 07/04 Patient remains intubated and sedated with Diprivan. Given Neostigmine last night. KUB this morning showed colonic ileus. Afebrile. On Argatroban. 07/05 No events overnight, sedated with Diprivan and intubated. Off Argatroban. 07/06 Patient remains intubated and sedated. Afebrile. 07/07 Patient remains intubated, s/p decompressive colonoscopy yesterday. Awake. 07/08 Patient s/p extubation yesterday. Awake and alert. 07/09 Patient is awake, alert lying in bed in NAD. Afebrile. 07/10 Patient is awake and alert, Afebrile. 07/11 Patient s/p decompressive colonoscopy yesterday. Afebrile. On Lasix drip.( UOP: 2800ml overnight). Cr: 3.0 from 2.25. 07/12 Patient is awake, alert given Neostigmine overnight. NGT to LIWS, off Lasix drip. 07/13: Resting comfortably in bed in no acute distress. 3 bowel movements documented. Remains n.p.o. Bladder pressures around 6. Potassium being replaced. Remains anemic around 7. 07/14 Patient is lying in bed in NAD. Afebrile. 07/15 No events overnight. Afebrile. 07/16: Resting in bed mild distress. Abdomen remains distended. Hemoglobin has dropped to 6.2 2 units of PRBC ordered. Patient underwent decompressive colonoscopy by Dr. Berrios for colonic ileus 07/17: No significant overnight events, patient states that he wants to get out of bed to a chair as he is having rectal discomfort. 07/18: Patient reportedly had a BM after digital rectal exam yesterday, states that he's been passing flatus "every now and then" overnight. No plans for OR or sigmoidoscopy as per colorectal service, OK to transfer out of [facility]. 07/19: Patient transferred to [facility] yesterday, complained of shortness of breath again today. An ABG showed a pCO2 of 79 so he was placed on bipap and transferred to [facility]. Most recent ABG shows pCO2 of 66, KUB still has abdominal distension but appears to be improved when compared to KUB from 07/15. Patient has reportedly been having bowel movements and passing flatus overnight. 07/20: No dramatic improvement in abdominal distention however abdomen soft. The patient was able to breathe comfortably overnight and remained alert. This morning the BiPAP mask was removed for half an hour and the patient did well without evidence of CO2 retention or somnolence. Reconsult note 07/23: The patient was a halicat from the [facility] floor. Patient was noted to be somnolent, had difficulty breathing. Stat ABG was performed revealing a PCO2 of 113. The patient was placed on BiPAP and transferred to [facility]. Currently remains on CPAP respiratory rate is 25 , 16/5 with an FiO2 35%. 07/24: Overnight the patient was placed on BiPAP 10/5 refusing BiPAP pulling out IVs. The patient became tachycardic refusing p.o. medications. The patient was placed on a Cardizem infusion currently at 5 mg an hour. Patient is more compliant at this time the patient's BiPAP settings were increased to 15 /5 35% stat ABGs were ordered the patient was noted to have a PCO2 of 89, continues with hypercapnic respiratory failure in the setting of severe COPD. Extensive discussion with family at bedside the patient's sister and daughter provided medical status update on recent transfer to ICU and current standing. Inform family that patient is at risk for for emergent intubation. Repeat ABG pending this evening. 07/25: Patient noted to have episodes of agitation continually removing BiPAP. I discussed with patient the criticality of his illness and possible intubation patient now agrees to wear BiPAP with exception of meals. Patient's diet was advanced to clear liquid noted improvement of chest x-ray patient is noted to have last bowel movement approximately 2 days ago we will continue to monitor and follow-up GI recommendations . Noted electrolyte repletion at this time. PCO2 now in the 60s. 07/26: Patient continues to be noncompliant with BiPAP mask. ABGs obtained noting a PO2 of 45.6. The patient was emergently intubated this afternoon. Chest x-ray and repeat ABG pending at this time. Noted patient's last bowel movement last night. 07/27: Afebrile. Remains on ventilator. Will start tube feeding today. BM noted overnight. Replacing potassium phosphate, calcium chloride x1 now. And magnesium sulfate 07/28: Afebrile. Did not tolerate CPAP trial the same. Tolerating tube feeds today. Last bowel movement yesterday 09/26. Mild ileus on abdominal x-ray today. 07/29: Afebrile. Tolerated CPAP times 3 hours. He is intolerant to P. 2 bowel movements. Abdominal x-ray unchanged but no signs of obstructive or ileus. 07/30: Afebrile. Currently on CPAP trials. Positive BM. No change in neurological status. Increasing metoprolol to 5 mg IV every 6 hours. Subjective 07/31: Again on CPAP trials. Awake and alert on dexmedetomidine drip. Will put on metoprolol tartrate 25 mg every 8 hours and titrate. Positive BM. Recheck KUB in a.m. 08/01. 08/01: Currently tolerating CPAP, but requiring 15 pressure support. Patient had been intubated 3 times this admission, according to the caregiver and go from had to do patient's a total of several intubation in the last 2-3 months. I discussed with the patient was agreeable for tracheostomy, I also discussed with Stephanie patient's daughter and she has given consent for tracheostomy. Plan for tracheostomy tomorrow 08/02: Patient currently on Precedex awake alert not tolerating CPAP trials. Plan for tracheostomy today. Transfuse 1 unit PRBC 1 pack units of platelets prior to trach 08/03: Patient remains calm on the vent currently tolerating pressure support 06/06. Status post tracheostomy yesterday no significant bleeding. Platelet count 103 today. 08/04: Patient placed on CPAP trials this a.m. and continues without difficulty. Precedex infusion currently at 1.5 mcgs/kg/hour. Tentative plan for PEG tube placement procedure on hold awaiting discussion with family, POA. Patient continues to have large bowel movements. 08/05: Continued copious large bowel movement. Fecal containment device / Dignashield applied. Placement of PEG tube continues to be on hold ,due to the inability to contact the POA. 08/06: Palliative care crab steamer Ms. Pittman had extensive meeting with the patient's POA tentative plan for placement of PEG tube. 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 Brown infectious disease. Patient continues to be agitated and requires Precedex infusion currently at 1.5, plan to initiate Seroquel this evening and attempts to decrease agitation, and subsequently disc continue Precedex infusion. The patient has been initiated on trach collar trials and continues greater than 6 hours. 08/07: No acute events overnight. GI consult for PEG placement. Tolerating tube feeds. Objective Vital Signs / I&O: Vital Signs 08/06/18 17:00 08/06/18 18:00 08/06/18 19:00 Temperature Pulse Rate 107 H 104 H 96 H Respiratory Rate 24 23 29 H Blood Pressure 108/55 L 104/59 L 103/60 Pulse Oximetry 97 100 98 08/06/18 19:22 08/06/18 19:29 08/06/18 20:00 Temperature 98.9 F Pulse Rate 101 H 109 H Respiratory Rate 20 23 Blood Pressure 125/59 L Pulse Oximetry 98 100 08/06/18 20:01 08/06/18 21:00 08/06/18 22:00 Temperature Pulse Rate 112 H 116 H 114 H Respiratory Rate 34 H 22 21 Blood Pressure 125/59 L 128/64 139/63 Pulse Oximetry 99 74 L 98 08/06/18 23:00 08/07/18 00:00 08/07/18 00:15 Temperature 98.5 F Pulse Rate 104 H 118 H Respiratory Rate 23 25 H 20 Blood Pressure 115/56 L 126/61 Pulse Oximetry 99 97 08/07/18 00:24 08/07/18 01:00 08/07/18 02:00 Temperature Pulse Rate 105 H 110 H 104 H Respiratory Rate 20 23 20 Blood Pressure 121/56 L 132/62 Pulse Oximetry 99 100 08/07/18 03:00 08/07/18 03:01 08/07/18 03:24 Temperature Pulse Rate 108 H 106 H 102 H Respiratory Rate 25 H 24 20 Blood Pressure 134/75 Pulse Oximetry 99 99 08/07/18 04:00 08/07/18 04:01 08/07/18 05:00 Temperature 98.9 F Pulse Rate 112 H 113 H 111 H Respiratory Rate 26 H 22 26 H Blood Pressure 153/67 H 153/67 H Pulse Oximetry 93 L 100 97 08/07/18 05:01 08/07/18 06:00 08/07/18 07:00 Temperature Pulse Rate 110 H 99 H 93 H Respiratory Rate 26 H 27 H 22 Blood Pressure 142/64 H 128/70 114/60 Pulse Oximetry 96 97 100 08/07/18 07:47 08/07/18 08:00 08/07/18 09:00 Temperature 98.3 F Pulse Rate 97 H 107 H 112 H Respiratory Rate 21 24 23 Blood Pressure 117/56 L 123/76 Pulse Oximetry 100 95 95 08/07/18 10:00 08/07/18 11:00 08/07/18 12:00 Temperature 98.2 F Pulse Rate 111 H 101 H 100 H Respiratory Rate 27 H 24 26 H Blood Pressure 126/59 L 122/64 120/59 L Pulse Oximetry 97 99 99 08/07/18 14:00 Temperature Pulse Rate 108 H Respiratory Rate Blood Pressure Pulse Oximetry Intake & Output 08/06/18 08/07/18 08/07/18 18:59 06:59 18:59 Intake Total 1376 / 1376 1437 / 1437 Output Total 650 / 650 900 / 900 Balance 726 / 726 537 / 537 Weight 81.5 kg Intake: IV 550 / 550 600 / 600 Precedex Inj 1,000 MCG In NS 250 / 250 500 / 500 Inj 240 ML @ 0.2 MCG/KG/HR 3.8 mls/hr IV.CONT TITRATE PRN Rx#: [id number] Maxipime Inj 2,000 MG In NS Inj 300 / 300 100 / 100 100 ML @ 200 mls/hr IV.SIG Q8H WOLF Rx#:[id number] Tube Feeding 426 / 426 437 / 437 Water Bolus Amount 400 / 400 400 / 400 Output: Stool 200 / 200 300 / 300 Urine Amount (Catheter) 450 / 450 600 / 600 Indwelling Temp Sensing 450 / 450 600 / 600 Catheter Other: Date of Last Bowel Movement 08/06/18 08/06/18 08/06/18 Result Diagrams: 08/07/18 05:01 08/07/18 05:01 Objective Remarks: GENERAL: 73-year-old chronically ill appearing elderly -[place]ic male lying in bed, awake , still having periods of agitation SKIN: Warm and dry HEAD: Normocephalic. EYES: PERRL NECK: Supple, trachea midline. New tracheostomy with minimal dry blood around the site currently on trach collar at 40% CARDIOVASCULAR: Normal rhythm. S1, S2. No S4. No murmur RESPIRATORY: Diminished breath sounds in bases noted. B/L equal air entry, patient. tolerating trach collar trials GASTROINTESTINAL: Abdomen less distended, non-tender, no guarding, bowel sounds present MUSCULOSKELETAL: Trace to bilateral upper/ lower extremity edema, warm and well- perfused NEURO: Alert awake, periods of agitation Follows commands by moving upper and lower extremities. Assessment and Plan - Assessment and Plan Plan: NEURO/Psych: Altered mental status due to CO2 retention -Discontinued Precedex 08/03 -F/U acetylcholine receptor and autoantibodies was negative RESP: Hypercapnic respiratory failure Acute COPD exacerbation -Extubated 06/29. Reintubated 07/02 extubated again 07/07, reintubated 07/26 -Status post tracheostomy yesterday 08/02/2018. CPAP trial with T-piece up to 4 hours today -Albuterol/ipratropium aerosols every 4 hours scheduled and albuterol aerosols every 2 hours as needed -Continue steroids IV, Inhaled budesonide CV: Essential hypertension - Monitor HR and BP keep MAP>65mmHg - Toprol tartrate 25 mg by tube every 8 hours GI: Colonic ileus -KUB 07/13: Stable nonobstructive colonic distention. -Given Neostigmine 07/11. -s/p repeat decompressive colonoscopy 07/10 and 07/15 -Continue pantoprazole -On docusate sodium/senna 1 tablet twice daily, lactulose 30 cc 4 times daily, polyethylene glycol 17 g daily. Fleets enema daily. Naltrexone 12 mg subcu daily -NG tube. Tube feeding with Glucerna 1.5 goal 45 cc daily per rectum recent recommendation -Abdominal x-ray revealed nonspecific bowel gas pattern. 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 Follow-up GI recommendations regarding any type of surgical considerations FEN//renal: Electrolyte derangement -Monitor renal function, I/O's, avoid nephrotoxins -Renal function stable -Renal- Dr. Figueroa has followed -Repletion of electrolytes per protocol -Free water 200 cc every 6 hours -08/05 C. difficile PCR-negative ID: -Off abx monitor for signs of infections (Fever, WBC) WBC stable -BC and urine cx from 07/11- NG -07/02 BC: NGTS, sputum cx 07/02:normal resp justyn -ID is following- Dr. Brown PRN -Urine culture from 07/28/2018 growing Koki. Repeat cultures sent 08/02/2018 after replacing Moreno HEME: Normocytic anemia Thrombocytopenia -Monitor CBC, coags, Hep PLT is positive. ANNMARIE negative. Hematology is following. Off argatroban drip -s/p 2U PRBCs on 07/16, Hgb 8.8, used for hemoglobin less than 7 -Give 1 unit of PRBC and 1 pack units of platelets today in anticipation of tracheostomy -Stable thrombocytopenia-avoid medications that precipitate thrombocytopenia ENDO: -Sliding scale insulin medium scale aspart insulin every 4 hours. Continue insulin detemir 10 units twice daily PROPH: -Bilateral lower extremity SCDs. PPI -Doppler US LE negative DVT 07/02 -Continue Lovenox 40 mg daily LINES: -Utilize peripheral IVs Level 2 follow-up Code Status: Full Discussed Condition With: Discussed with AUTOMOBILE MECHANIC RADIATOR at bedside
[2018-08-07 19:34] LABS: Potassium 3.7 meq/L (3.5-5.1)
[2018-08-07 19:45] LABS: Phosphorus 3.6 mg/dL (2.5-4.9)
[2018-08-07] MEDS: QUEtiapine 25 MG Tablet PO SCH (20:15)
[2018-08-08] MEDS: Artificial Tears Opth Drops 15 ML Bottle EACH EYE SCH ×3 (00:38→16:55)
[2018-08-08] MEDS: Acetaminophen 325 MG Tablet PO PRN (00:39)
[2018-08-08 01:32] LABS: ABG Base Excess 3.8 mmol/L (-2-2); ABG PCO2 51 mmHg (38-42); ABG PO2 75 mmHG (61-120)
[2018-08-08] MEDS: Pantoprazole Inj 40 MG Vial IV.PUSH SCH ×2 (03:51→14:00)
[2018-08-08] MEDS: Insulin NovoLOG Aspart Correctional Sugar Inj SQ SCH ×5 (03:51→20:37)
[2018-08-08 05:08] LABS: Calcium 7.9 mg/dL (8.5-10.1); Carbon Dioxide 28.9 meq/L (21.0-32.0); Potassium 3.2 meq/L (3.5-5.1)
[2018-08-08 05:12] LABS: Baso % (Auto) 0.3 % (0.0-2.0); Eos % (Auto) 0.2 % (0.0-4.0); Hemoglobin 7.1 gm/dL (13.0-17.0); Lymph % (Auto) 9.5 % (9.0-44.0); Mean Corpuscular HGB Conc 34.5 % (32.0-36.0); Mean Corpuscular Hemoglobin 32.5 pg (27.0-34.0); Mean Corpuscular Volume 94.3 fL (80.0-100.0); Mean Platelet Volume 9.7 fL (7.0-11.0); Mono # (Auto) 0.6 th/mm3 (0.0-0.9); Mono % (Auto) 5.5 % (0.0-8.0); Neut # (Auto) 9.1 th/mm3 (1.8-7.7); Neut % (Auto) 84.5 % (16.0-70.0); Platelet Count 148 th/mm3 (150-450); Red Blood Count 2.18 mil/mm3 (4.50-5.90); Red Cell Distribution Width 16.7 % (11.6-17.2); White Blood Count 10.7 th/mm3 (4.0-11.0)
[2018-08-08 05:30] LABS: Hematocrit 20.6 % (39.0-51.0)
[2018-08-08 08:00] LABS: Platelet Morphology Normal (Normal)
[2018-08-08] MEDS: Insulin Detemir Inj 1,000 UNIT/10 ML Vial SQ SCH ×2 (08:31→21:32)
[2018-08-08] MEDS: Sennosides Liq 8.8 MG/5 ML UDC NG/OG SCH ×2 (08:31→21:33)
[2018-08-08] MEDS: Polyethylene Glycol 3350 17 GM Packet PO SCH (08:32)
[2018-08-08] MEDS: Enoxaparin Inj 40 MG/0.4 ML Syringe SQ SCH (08:32)
[2018-08-08] MEDS: Calcium/Vitamin D 250/125 MG Tablet PO SCH (08:32)
[2018-08-08] MEDS: Docusate Sodium Liq 100 MG/10 ML UDC NG/OG SCH ×2 (08:32→21:32)
[2018-08-08] MEDS: Ascorbic Acid 500 MG Tablet PO SCH (08:32)
[2018-08-08] MEDS: Multivitamin/Minerals Therapeutic Tablet PO SCH (08:33)
[2018-08-08] MEDS: Bisacodyl 10 MG Supp RECTAL SCH (08:33)
[2018-08-08] MEDS: QUEtiapine 25 MG Tablet PO SCH ×2 (08:33→21:33)
[2018-08-08] MEDS: Methylnaltrexone Inj 12 MG/0.6 ML Vial SQ SCH (08:35)
[2018-08-08] MEDS: Metoprolol Tartrate 25 MG Tablet PO SCH ×3 (08:47→18:32)
[2018-08-08] MEDS: Potassium Chlor 20 mEq Premix 20 MEQ/100 ML PIGGYBACK IV.SIG PRN ×4 (12:49→20:41)
--- NOTE | 2018-08-08 18:23 | P.PNCC ---
Subjective Subjective Remarks/Hospital Course: Mr. Curry is a 73-year-old -[place] male with past medical history significant for COPD on 3 L nasal cannula, hypertension, hyperlipidemia and anxiety who was admitted to the hospitalist service on 06/19/2018 for worsening shortness of breath due to COPD exacerbation. He was treated with IV Solu- Medrol, IV antibiotics, breathing treatments gradually improved. Patient was also complaining about dyspepsia and underwent EGD by GI yesterday. Per report the EGD was normal but patient developed worsening shortness of breath and COPD exacerbation postprocedure, possibly from aspiration after sedated. Two ABGs done yesterday showed hypercapnic respiratory failure second 1 was on BiPAP and this was improved with pH 7.3 with PCO2 of 74. Patient remained on BiPAP overnight however was noticed to be lethargic today a.m., stat ABG showed pH of 7.21 PCO2 110 PO2 88 while on BiPAP. Patient was lethargic intermittently dozing off due to CO2 narcosis. Critical care medicine was consulted and I immediately evaluated the patient. Patient had obviously failed BiPAP I proceeded with endotracheal intubation placed on mechanical ventilation. Postintubation I have ordered single dose of Solu-Medrol 125 mg x1 continue Solu -Medrol 60 every 8, discontinue ceftriaxone and start cefepime 2 g IV every 8 hours continue azithromycin. Add budesonide inhaled, placed on scheduled DuoNeb every 4 hours and as needed. 06/27: Patient was intubated yesterday for severe hypercapnic respiratory failure. Currently remains intubated sedated and intubated remains diminished bilaterally. Heavily sedated for ventilator synchrony 06/28: Urine output significantly improved with fluid resuscitation. Creat down trending now 2 from 2.3, UO >3.3 L. Remains intubated sedated. Will initiate daily sedation vacation and CPAP trials 06/29: More awake today tolerating CPAP trials intermittently follows commands but gets agitated/frustrated fast. Urine output remains excellent creatinine 1.4. However sodium increasing 158 today. Night funeral prearrangement counselor had changed fluid to D5 W for free water replacement. Due to hypoglycemia will change to quarter normal saline at 150 mL/h repeat CMP in the afternoon 06/30 Patient was extubated yesterday. Awake 07/01 Patient is lying in bed in NAD. T: 100.5 07/02: Intubated early this morning due to acute hypoxic respiratory failure. Central line placed due to hypotension. Plan for GI perform endoscopic decompression of this large bowel today. Arousable and does follow commands. Placed on argatroban 07/03: Currently, intubated with borderline blood pressure. Central line placed yesterday due to hypotension. Did not move bowels despite 1 L of fluid from colonoscopy yesterday and multiple laxatives provided. See orders for additional laxatives today. Might need neostigmine. 07/04 Patient remains intubated and sedated with Diprivan. Given Neostigmine last night. KUB this morning showed colonic ileus. Afebrile. On Argatroban. 07/05 No events overnight, sedated with Diprivan and intubated. Off Argatroban. 07/06 Patient remains intubated and sedated. Afebrile. 07/07 Patient remains intubated, s/p decompressive colonoscopy yesterday. Awake. 07/08 Patient s/p extubation yesterday. Awake and alert. 07/09 Patient is awake, alert lying in bed in NAD. Afebrile. 07/10 Patient is awake and alert, Afebrile. 07/11 Patient s/p decompressive colonoscopy yesterday. Afebrile. On Lasix drip.( UOP: 2800ml overnight). Cr: 3.0 from 2.25. 07/12 Patient is awake, alert given Neostigmine overnight. NGT to LIWS, off Lasix drip. 07/13: Resting comfortably in bed in no acute distress. 3 bowel movements documented. Remains n.p.o. Bladder pressures around 6. Potassium being replaced. Remains anemic around 7. 07/14 Patient is lying in bed in NAD. Afebrile. 07/15 No events overnight. Afebrile. 07/16: Resting in bed mild distress. Abdomen remains distended. Hemoglobin has dropped to 6.2 2 units of PRBC ordered. Patient underwent decompressive colonoscopy by Dr. Berrios for colonic ileus 07/17: No significant overnight events, patient states that he wants to get out of bed to a chair as he is having rectal discomfort. 07/18: Patient reportedly had a BM after digital rectal exam yesterday, states that he's been passing flatus "every now and then" overnight. No plans for OR or sigmoidoscopy as per colorectal service, OK to transfer out of [facility]. 07/19: Patient transferred to [facility] yesterday, complained of shortness of breath again today. An ABG showed a pCO2 of 79 so he was placed on bipap and transferred to [facility]. Most recent ABG shows pCO2 of 66, KUB still has abdominal distension but appears to be improved when compared to KUB from 07/15. Patient has reportedly been having bowel movements and passing flatus overnight. 07/20: No dramatic improvement in abdominal distention however abdomen soft. The patient was able to breathe comfortably overnight and remained alert. This morning the BiPAP mask was removed for half an hour and the patient did well without evidence of CO2 retention or somnolence. Reconsult note 07/23: The patient was a halicat from the [facility] floor. Patient was noted to be somnolent, had difficulty breathing. Stat ABG was performed revealing a PCO2 of 113. The patient was placed on BiPAP and transferred to [facility]. Currently remains on CPAP respiratory rate is 25 , 16/5 with an FiO2 35%. 07/24: Overnight the patient was placed on BiPAP 10/5 refusing BiPAP pulling out IVs. The patient became tachycardic refusing p.o. medications. The patient was placed on a Cardizem infusion currently at 5 mg an hour. Patient is more compliant at this time the patient's BiPAP settings were increased to 15 /5 35% stat ABGs were ordered the patient was noted to have a PCO2 of 89, continues with hypercapnic respiratory failure in the setting of severe COPD. Extensive discussion with family at bedside the patient's sister and daughter provided medical status update on recent transfer to ICU and current standing. Inform family that patient is at risk for for emergent intubation. Repeat ABG pending this evening. 07/25: Patient noted to have episodes of agitation continually removing BiPAP. I discussed with patient the criticality of his illness and possible intubation patient now agrees to wear BiPAP with exception of meals. Patient's diet was advanced to clear liquid noted improvement of chest x-ray patient is noted to have last bowel movement approximately 2 days ago we will continue to monitor and follow-up GI recommendations . Noted electrolyte repletion at this time. PCO2 now in the 60s. 07/26: Patient continues to be noncompliant with BiPAP mask. ABGs obtained noting a PO2 of 45.6. The patient was emergently intubated this afternoon. Chest x-ray and repeat ABG pending at this time. Noted patient's last bowel movement last night. 07/27: Afebrile. Remains on ventilator. Will start tube feeding today. BM noted overnight. Replacing potassium phosphate, calcium chloride x1 now. And magnesium sulfate 07/28: Afebrile. Did not tolerate CPAP trial the same. Tolerating tube feeds today. Last bowel movement yesterday 09/26. Mild ileus on abdominal x-ray today. 07/29: Afebrile. Tolerated CPAP times 3 hours. He is intolerant to P. 2 bowel movements. Abdominal x-ray unchanged but no signs of obstructive or ileus. 07/30: Afebrile. Currently on CPAP trials. Positive BM. No change in neurological status. Increasing metoprolol to 5 mg IV every 6 hours. Subjective 07/31: Again on CPAP trials. Awake and alert on dexmedetomidine drip. Will put on metoprolol tartrate 25 mg every 8 hours and titrate. Positive BM. Recheck KUB in a.m. 08/01. 08/01: Currently tolerating CPAP, but requiring 15 pressure support. Patient had been intubated 3 times this admission, according to the caregiver and go from had to do patient's a total of several intubation in the last 2-3 months. I discussed with the patient was agreeable for tracheostomy, I also discussed with Stephanie patient's daughter and she has given consent for tracheostomy. Plan for tracheostomy tomorrow 08/02: Patient currently on Precedex awake alert not tolerating CPAP trials. Plan for tracheostomy today. Transfuse 1 unit PRBC 1 pack units of platelets prior to trach 08/03: Patient remains calm on the vent currently tolerating pressure support 06/06. Status post tracheostomy yesterday no significant bleeding. Platelet count 103 today. 08/04: Patient placed on CPAP trials this a.m. and continues without difficulty. Precedex infusion currently at 1.5 mcgs/kg/hour. Tentative plan for PEG tube placement procedure on hold awaiting discussion with family, POA. Patient continues to have large bowel movements. 08/05: Continued copious large bowel movement. Fecal containment device / Dignashield applied. Placement of PEG tube continues to be on hold ,due to the inability to contact the POA. 08/06: Palliative care merchandise team manager Ms. Pittman had extensive meeting with the patient's POA tentative plan for placement of PEG tube. 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 Brown infectious disease. Patient continues to be agitated and requires Precedex infusion currently at 1.5, plan to initiate Seroquel this evening and attempts to decrease agitation, and subsequently discontinue Precedex infusion. The patient has been initiated on trach collar trials and continues greater than 6 hours. 08/07: No acute events overnight. GI consult for PEG placement. Tolerating tube feeds. 08/08: The patient tolerated T-piece for approximately 10 hours. Patient placed back on CPAP this evening. Agitation resolved with ministration of Seroquel. Patient responding to questions nodding head yes and no. Objective Vital Signs / I&O: Vital Signs 08/07/18 19:00 08/07/18 19:33 08/07/18 20:00 Temperature 98.7 F Pulse Rate 115 H 119 H 124 H Respiratory Rate 48 H 28 H 25 H Blood Pressure Pulse Oximetry 76 L 97 100 08/07/18 21:00 08/07/18 22:00 08/07/18 23:00 Temperature Pulse Rate 124 H 127 H 124 H Respiratory Rate 24 29 H 30 H Blood Pressure 117/70 155/75 H 170/74 H Pulse Oximetry 97 93 L 94 L 08/07/18 23:06 08/07/18 23:10 08/07/18 23:33 Temperature Pulse Rate 128 H 125 H Respiratory Rate 24 19 20 Blood Pressure 164/74 H Pulse Oximetry 97 100 08/08/18 00:00 08/08/18 01:00 08/08/18 01:04 Temperature 100.4 F H Pulse Rate 125 H 126 H Respiratory Rate 21 18 14 Blood Pressure 140/61 137/61 Pulse Oximetry 100 100 100 08/08/18 01:30 08/08/18 02:00 08/08/18 02:30 Temperature Pulse Rate 126 H 128 H 122 H Respiratory Rate 13 16 11 L Blood Pressure 132/90 143/66 H 140/60 Pulse Oximetry 100 100 100 08/08/18 02:35 08/08/18 03:00 08/08/18 03:30 Temperature Pulse Rate 122 H 122 H 123 H Respiratory Rate 15 14 11 L Blood Pressure 139/62 127/93 H 135/63 Pulse Oximetry 100 100 100 08/08/18 04:00 08/08/18 04:30 08/08/18 04:55 Temperature 100.4 F H Pulse Rate 123 H 123 H Respiratory Rate 16 17 17 Blood Pressure 154/66 H 155/76 H Pulse Oximetry 100 100 100 08/08/18 05:00 08/08/18 05:30 08/08/18 06:00 Temperature Pulse Rate 121 H 121 H 123 H Respiratory Rate 15 16 17 Blood Pressure 140/65 136/65 170/96 H Pulse Oximetry 100 100 100 08/08/18 06:30 08/08/18 06:46 08/08/18 07:00 Temperature Pulse Rate 125 H 131 H 124 H Respiratory Rate 27 H 23 20 Blood Pressure 176/68 H 169/89 H 158/64 H Pulse Oximetry 100 100 100 08/08/18 07:15 08/08/18 07:30 08/08/18 07:45 Temperature Pulse Rate 125 H 124 H 123 H Respiratory Rate 19 18 20 Blood Pressure 149/68 H 139/64 149/70 H Pulse Oximetry 100 100 100 08/08/18 08:08 08/08/18 09:49 08/08/18 13:35 Temperature Pulse Rate 124 H 117 H Respiratory Rate 15 24 Blood Pressure Pulse Oximetry 100 100 Intake & Output 08/07/18 08/08/18 08/08/18 18:59 06:59 18:59 Intake Total 934 / 934 765 / 765 600 / 600 Output Total 1250 / 1250 1800 / 1800 Balance -316 / -316 -1035 / -1035 600 / 600 Weight 81.5 kg Intake: IV 200 / 200 600 / 600 Maxipime Inj 2,000 MG In NS Inj 200 / 200 200 / 200 100 ML @ 200 mls/hr IV.SIG Q8H WOLF Rx#:[id number] KCl 20 mEq Premix Inj 20 meq In 200 / 200 100 ml @ 50 mls/hr IV.SIG Q2H PRN Rx#:[id number] Oral 0 / 0 Tube Feeding 284 / 284 265 / 265 Tube Irrigant 50 / 50 100 / 100 Water Bolus Amount 400 / 400 400 / 400 Anesthesia Amount 0 / 0 Output: Stool 400 / 400 1300 / 1300 Pleural Fluid 0 / 0 Urine Amount (Catheter) 850 / 850 500 / 500 Indwelling Temp Sensing 850 / 850 500 / 500 Catheter Gastric Drainage 0 / 0 Right Nare Nasogastric Tube 0 / 0 Other: Date of Last Bowel Movement 08/07/18 08/08/18 Result Diagrams: 08/08/18 03:59 08/08/18 03:59 Other Results: Laboratory Results CBC w Diff Cancelled 07/12/18 10:09 WBC 10.7 th/mm3 (4.0-11.0) 08/08/18 03:59 Corrected WBC Cancelled 07/12/18 10:09 RBC 2.18 mil/mm3 (4.50-5.90) L 08/08/18 03:59 Hgb 7.1 gm/dL (13.0-17.0) L 08/08/18 03:59 Hct 20.6 % (39.0-51.0) L* 08/08/18 03:59 MCV 94.3 fL (80.0-100.0) 08/08/18 03:59 MCH 32.5 pg (27.0-34.0) 08/08/18 03:59 MCHC 34.5 % (32.0-36.0) 08/08/18 03:59 RDW 16.7 % (11.6-17.2) 08/08/18 03:59 Plt Count 148 th/mm3 (150-450) L 08/08/18 03:59 MPV 9.7 fL (7.0-11.0) 08/08/18 03:59 Prelim Diff (Auto) Slide review pending 08/08/18 03:59 Immature Gran % (Auto) Cancelled 07/12/18 10:09 Neut % (Auto) 84.5 % (16.0-70.0) H 08/08/18 03:59 Lymph % (Auto) 9.5 % (9.0-44.0) 08/08/18 03:59 [place] % (Auto) 5.5 % (0.0-8.0) 08/08/18 03:59 Eos % (Auto) 0.2 % (0.0-4.0) 08/08/18 03:59 Baso % (Auto) 0.3 % (0.0-2.0) 08/08/18 03:59 Immature Gran # (Auto) Cancelled 07/12/18 10:09 Neut # (Auto) 9.1 th/mm3 (1.8-7.7) H 08/08/18 03:59 Lymph # (Auto) 1.0 th/mm3 (1.0-4.8) 08/08/18 03:59 [place] # (Auto) 0.6 th/mm3 (0.0-0.9) 08/08/18 03:59 Eos # (Auto) 0.0 th/mm3 (0.0-0.4) 08/08/18 03:59 Baso # (Auto) 0.0 th/mm3 (0.0-0.2) 08/08/18 03:59 WBC Differential . 08/08/18 03:59 Diff Scan Auto diff confirmed 08/08/18 03:59 Seg Neuts % (Manual) 67 % (16-70) 08/07/18 05:01 Band Neuts % (Manual) 20 % (0-6) H 08/07/18 05:01 Lymphocytes % (Manual) 5 % (9-44) L 08/07/18 05:01 Atypical Lymphs % (Man) Cancelled 07/12/18 10:09 Monocytes % (Manual) 8 % (0-8) 08/07/18 05:01 Eosinophils % (Manual) Cancelled 07/12/18 10:09 Basophils % (Manual) Cancelled 07/12/18 10:09 Metamyelocytes % (Man) 1 % (0-1) 08/01/18 10:46 Myelocytes % (Man) 2 % (0-0) H 08/01/18 10:46 Promyelocytes % (Man) 1 % (0-0) H 08/01/18 10:46 Blast Cells % (Manual) Cancelled 07/12/18 10:09 Plasma Cell % (Manual) Cancelled 07/12/18 10:09 Other Cells % Cancelled 07/12/18 10:09 Abs Neuts (Manual) 9.9 th/mm3 (1.8-7.7) H 08/07/18 05:01 Nucleated RBCs/100 WBC 1 /100 WBC (0-0) H 07/31/18 04:57 Differential Comment . 08/08/18 03:59 Hypersegmented Neuts Cancelled 07/12/18 10:09 Smudge Cells Cancelled 07/12/18 10:09 Toxic Granulation Cancelled 07/12/18 10:09 Toxic Vacuolation Cancelled 07/12/18 10:09 Dohle Bodies Cancelled 07/12/18 10:09 Platelet Estimate Low (Normal) L 08/08/18 03:59 Platelet Morphology Normal (Normal) 08/08/18 03:59 RBC Morphology Normal (Normal) 07/06/18 03:29 Dimorphic RBCs Cancelled 07/12/18 10:09 Polychromasia Cancelled 07/12/18 10:09 Basophilic Stippling Moderate (None) H 07/24/18 04:43 Spherocytes Cancelled 07/12/18 10:09 Pappenheimer Bodies Cancelled 07/12/18 10:09 Sickle Cells Cancelled 07/12/18 10:09 Target Cells Cancelled 07/12/18 10:09 Tear Drop Cells Cancelled 07/12/18 10:09 Ovalocytes Cancelled 07/12/18 10:09 Stomatocytes 1+ (None) H 07/24/18 04:43 Helmet Cells Cancelled 07/12/18 10:09 [place] Bodies Cancelled 07/12/18 10:09 [place] Cells Cancelled 07/12/18 10:09 Acanthocytes (Spur) Cancelled 07/12/18 10:09 Rouleaux Cancelled 07/12/18 10:09 Keratocytes Cancelled 07/12/18 10:09 Smear Path Review 07/19/18 05:56 Haptoglobin 94 mg/dL (30-200) 07/19/18 15:18 Hematology Comments 07/09/18 09:44 PT 10.0 sec (9.8-11.6) 08/02/18 04:15 INR 1.0 Ratio 08/02/18 04:15 APTT 31.1 sec (23.4-31.7) 07/19/18 15:18 Fibrinogen 154 mg/dL (227-377) L 07/19/18 15:18 Puncture Site Left radial 08/08/18 01:17 Patient Temperature 98.6 08/08/18 01:17 O2 Saturation 92 % (90-100) 08/08/18 01:17 ABG pH 7.37 (7.380-7.420) L 08/08/18 01:17 ABG pCO2 51 mmHg (38-42) H* 08/08/18 01:17 ABG pO2 75 mmHG (61-120) 08/08/18 01:17 ABG HCO3 29 mmol/L (22-26) H 08/08/18 01:17 ABG O2 Content 9.3 Vol % (12.0-20.0) L 08/08/18 01:17 ABG Base Excess 3.8 mmol/L (-2-2) H 08/08/18 01:17 ABG Methemoglobin 1.9 % (0-2) 08/08/18 01:17 Raymon Test Present 08/08/18 01:17 Hemoglobin 7.1 G/DL (12.0-16.0) L* 08/08/18 01:17 Carboxyhemoglobin 1.7 % (0-4) 08/08/18 01:17 O2 Delivery Device Vent 08/08/18 01:17 Liter Flow 30.00 L/M 07/26/18 15:55 Vent Setting Cpap 08/08/18 01:17 Inspired O2 35 % 08/08/18 01:17 Critical Value Yes 08/08/18 01:17 Sodium 144 meq/L (136-145) 08/08/18 03:59 Potassium 3.2 meq/L (3.5-5.1) L 08/08/18 03:59 Chloride 110 meq/L (98-107) H 08/08/18 03:59 Carbon Dioxide 28.9 meq/L (21.0-32.0) 08/08/18 03:59 Anion Gap 5 meq/L (5-15) 08/08/18 03:59 BUN 31 mg/dL (7-18) H 08/08/18 03:59 Creatinine 1.59 mg/dL (0.60-1.30) H 08/08/18 03:59 Estimated GFR 52 mL/min (>89) L 08/08/18 03:59 POC Glucose 93 mg/dl (68-110) 08/08/18 16:59 Random Glucose 137 mg/dL (74-106) H 08/08/18 03:59 Lactic Acid 0.9 mmol/L (0.4-2.0) 07/14/18 11:05 Calcium 7.9 mg/dL (8.5-10.1) L 08/08/18 03:59 Prot Corrected Calcium 8.0 mg/dL (8.5-10.1) L 07/28/18 05:02 Calcium Adj for Albumin 8.1 mg/dL (8.5-10.1) L 08/03/18 04:27 Phosphorus 3.6 mg/dL (2.5-4.9) D 08/07/18 18:46 Magnesium 1.8 mg/dL (1.5-2.5) 08/07/18 05:01 Total Bilirubin 0.6 mg/dL (0.2-1.0) 08/03/18 04:27 AST 39 U/L (15-37) H 08/03/18 04:27 ALT 44 U/L (12-78) 08/03/18 04:27 Alkaline Phosphatase 127 U/L (45-117) H 08/03/18 04:27 Ammonia Less than 10 mcmol/L (11-32) L 07/03/18 04:30 Lactate Dehydrogenase 436 U/L (87-241) H 07/15/18 12:25 Total Creatine Kinase 362 U/L (39-308) H 08/01/18 10:46 CK-MB (CK-2) 2.0 ng/mL (0.5-3.6) 08/01/18 10:46 CK-MB (CK-2) % 0.6 % (0.0-4.0) 08/01/18 10:46 Troponin I Less than 0.02 ng/mL (0.02-0.05) L 07/03/18 04:30 B-Natriuretic Peptide 32 pg/mL (0-100) 06/23/18 13:32 Total Protein 5.7 g/dL (6.4-8.2) L 08/03/18 04:27 Albumin 2.3 g/dL (3.4-5.0) L 08/03/18 04:27 Lipase 61 U/L (73-393) L 08/01/18 10:46 Serotonin Release Assay Negative (NEGATIVE) 07/02/18 05:42 Vitamin A 23 mcg/dL (38-98) L 07/28/18 12:52 Vitamin B12 855 pg/mL (193-986) 07/02/18 13:27 Folate 12.1 ng/mL (3.1-17.5) 07/02/18 13:27 Procalcitonin 0.67 ng/mL (0.00-0.08) H 07/11/18 02:48 Urine Color Yellow (Yellw/Straw) 07/28/18 06:00 Urine Clarity Cloudy (Clear) H 07/28/18 06:00 Urine pH 6.0 (5.0-8.5) 07/28/18 06:00 Ur Specific [place] 1.010 (1.002-1.035) 07/28/18 06:00 Urine Protein 30 mg/dL (Neg-Trace) H 07/28/18 06:00 Urine Glucose (UA) 150 mg/dL (Negative) H 07/28/18 06:00 Urine Ketones Negative mg/dL (Negative) 07/28/18 06:00 Urine Occult Blood Small (Negative) H 07/28/18 06:00 Urine Nitrate Negative (Negative) 07/28/18 06:00 Urine Bilirubin Negative (Negative) 07/28/18 06:00 Urine Urobilinogen Less than 2 mg/dL (Less than 2) 07/28/18 06:00 Ur Leukocyte Esterase Large (Negative) H 07/28/18 06:00 Urine RBC 164 /hpf (0-3) H 07/28/18 06:00 Urine WBC /hpf (0-5) 07/28/18 06:00 Urine WBC Clumps Few (None) H 07/28/18 06:00 Amorphous Sediment Few /hpf (None) H 07/14/18 21:55 Hyaline Casts 1 /lpf (0-3) 06/27/18 17:00 Urine Mucus Few /lpf (Occasional) H 07/28/18 06:00 Urine Yeast Many /hpf (None) H 07/28/18 06:00 Micro UA Comment Cath-culture ind 07/28/18 06:00 Ur Microscopic Review Not Reportable 07/28/18 06:00 Urine Culture Comments Cath-cult indicated 07/28/18 06:00 Urine Eosinophils None seen /HPF (None Seen) 07/10/18 20:50 Ur Random Creatinine 33 mg/dL (27-300) 07/13/18 13:30 Ur Random Sodium 78 meq/L 07/13/18 13:30 Nasal Screen MRSA (PCR) Not detected (Negative) 06/26/18 12:40 Stl C.difficile DNA Amp Negative (Negative) 08/05/18 16:00 St C. diff Tox Epid 027 Negative (Negative) 08/05/18 16:00 Vancomycin Trough 33.1 mcg/mL (5.0-10.0) H 08/05/18 14:22 Random Vancomycin 25.1 Comment 08/07/18 05:01 Heparin Dep Plt Ab OD 4.309 U/mL (0.000-1.0) H 06/30/18 11:30 Hep-Induced Plt Ab [place] Positive (Negative) H 06/30/18 11:30 ANNMARIE UFH Low Dose 0.1 3 %release (2.1-21.7) 07/02/18 05:42 ANNMARIE UFH Low Dose 0.5 2 %release (2.1-21.7) 07/02/18 05:42 ANNMARIE UFH High Dose 100 3 %release (2.1-21.7) 07/02/18 05:42 Acetylchol Rcpt Bind Ab Less than 0.30 nmol/L 07/24/18 16:24 Hepatitis A Ab Total Nonreactive 07/22/18 15:53 Hep Bs Antibody Less than 3.1 mIU/mL 07/22/18 15:53 Hep B Core IgM Ab Nonreactive (Nonreactive) 07/22/18 15:53 Hepatitis Be Antigen Nonreactive 07/22/18 15:53 Hepatitis C Antibody Nonreactive (Nonreactive) 07/22/18 15:53 Blood Type O Positive 08/02/18 08:33 Antibody Screen Negative 08/02/18 08:33 MTS Gel Crossmatch See Detail 08/02/18 08:33 Bld Prod Order Comment 08/02/18 08:33 Impressions Abdomen Ultrasound 06/21/18 00:00 CONCLUSION: 1. No ascites is identified within the abdomen. Abdomen/Bladder Ultrasound 06/28/18 00:00 CONCLUSION: 1. Echogenic kidneys characteristic of medical renal disease. No hydronephrosis. Bladder decompressed by [place] Chest CTA 07/02/18 00:00 CONCLUSION: 1. No pulmonary embolus. 2. Diffuse but basilar predominant bilateral airspace disease. 3. Endotracheal and endobronchial secretions are demonstrated. 4. Moderate emphysema. 5. Left ventricular hypertrophy. Abdomen/Pelvis CT 07/10/18 08:31 CONCLUSION: 1. There is gas and fluid distending the colon. The patient has a rectal tube in place however the rectal tube is kinked back on itself and occluded. The overall size of the colon has mildly increased when compared to previous exam. The small bowel is normal in caliber. 2. Interval development of a small left basilar effusion and atelectasis. Venous Doppler Study 07/15/18 00:00 CONCLUSION: 1. Limited suboptimal examination. 2. Nonocclusive thrombus in the jugular vein. Abdomen X-Ray 08/01/18 09:59 CONCLUSION: NG tube in place. Mild gaseous distention of portions of colon. Chest X-Ray 08/03/18 06:00 CONCLUSION: Stable bibasilar airspace opacity representing either atelectasis or airspace consolidation. There is also a questionable hazy opacity at the right base which could indicate a small pleural effusion. Objective Remarks: GENERAL: 73-year-old chronically ill appearing elderly -Swedish male lying in bed, awake , calm currently on Tpiece SKIN: Warm and dry HEAD: Normocephalic. EYES: PERRL NECK: Supple, trachea midline. New tracheostomy with minimal dry blood around the site currently on trach collar at 40% CARDIOVASCULAR: Normal rhythm. S1, S2. No S4. No murmur RESPIRATORY: Diminished breath sounds in bases noted. B/L equal air entry, patient. tolerating trach collar trials GASTROINTESTINAL: Abdomen less distended, non-tender, no guarding, bowel sounds present MUSCULOSKELETAL: Trace to bilateral upper/ lower extremity edema, warm and well- perfused NEURO: Alert awake, periods of agitation Follows commands by moving upper and lower extremities. Assessment and Plan - Assessment and Plan Plan: NEURO/Psych: Altered mental status due to CO2 retention -Discontinued Precedex 08/03 -F/U acetylcholine receptor and autoantibodies was negative RESP: Hypercapnic respiratory failure Acute COPD exacerbation -Extubated 06/29. Reintubated 07/02 extubated again 07/07, reintubated 07/26 -Status post tracheostomy yesterday 08/02/2018. CPAP trial with T-piece up to 4 hours today -Albuterol/ipratropium aerosols every 4 hours scheduled and albuterol aerosols every 2 hours as needed -Continue steroids IV, Inhaled budesonide CV: Essential hypertension - Monitor HR and BP keep MAP>65mmHg - Toprol tartrate 25 mg by tube every 8 hours GI: Colonic ileus -KUB 07/13: Stable nonobstructive colonic distention. -Given Neostigmine 07/11. -s/p repeat decompressive colonoscopy 07/10 and 07/15 -Continue pantoprazole -On docusate sodium/senna 1 tablet twice daily, lactulose 30 cc 4 times daily, polyethylene glycol 17 g daily. Fleets enema daily. Naltrexone 12 mg subcu daily -NG tube. Tube feeding with Glucerna 1.5 goal 45 cc daily per rectum recent recommendation -Abdominal x-ray revealed nonspecific bowel gas pattern. 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 Follow-up GI recommendations regarding any type of surgical considerations FEN//renal: Electrolyte derangement -Monitor renal function, I/O's, avoid nephrotoxins -Renal function stable -Renal- Dr. Figueroa has followed -Repletion of electrolytes per protocol -Free water 200 cc every 6 hours -08/05 C. difficile PCR-negative ID: -Off abx monitor for signs of infections (Fever, WBC) WBC stable -BC and urine cx from 07/11- NG -07/02 BC: NGTS, sputum cx 07/02:normal resp justyn -ID is following- Dr. Brown PRN -Urine culture from 07/28/2018 growing Koki. Repeat cultures sent 08/02/2018 after replacing Moreno HEME: Normocytic anemia Thrombocytopenia -Monitor CBC, coags, Hep PLT is positive. ANNMARIE negative. Hematology is following. Off argatroban drip -s/p 2U PRBCs on 07/16, Hgb 8.8, used for hemoglobin less than 7 -Give 1 unit of PRBC and 1 pack units of platelets today in anticipation of tracheostomy -Stable thrombocytopenia-avoid medications that precipitate thrombocytopenia ENDO: -Sliding scale insulin medium scale aspart insulin every 4 hours. Continue insulin detemir 10 units twice daily PROPH: -Bilateral lower extremity SCDs. PPI -Doppler US LE negative DVT 07/02 -Continue Lovenox 40 mg daily LINES: -Utilize peripheral IVs Level 2 follow-up Code Status: full Discussed Condition With: SYRUP MAKER COOK at bedside
--- NOTE | 2018-08-08 19:20 | P.PNPL ---
Subjective Interval history: 73 YOAA male with COPD, 02 dependent Follows at [facility] Admitted with AMS, COPD exac. On Trach collar On Precedex Awake, follows commands, Started Seroquel Physical Exam Vital signs: Vital Signs 08/07/18 19:33 08/07/18 20:00 08/07/18 21:00 Temperature 98.7 F Pulse Rate 119 H 124 H 124 H Respiratory Rate 28 H 25 H 24 Blood Pressure 117/70 Pulse Oximetry 97 100 97 08/07/18 22:00 08/07/18 23:00 08/07/18 23:06 Temperature Pulse Rate 127 H 124 H 128 H Respiratory Rate 29 H 30 H 24 Blood Pressure 155/75 H 170/74 H Pulse Oximetry 93 L 94 L 08/07/18 23:10 08/07/18 23:33 08/08/18 00:00 Temperature 100.4 F H Pulse Rate 125 H 125 H Respiratory Rate 19 20 21 Blood Pressure 164/74 H 140/61 Pulse Oximetry 97 100 100 08/08/18 01:00 08/08/18 01:04 08/08/18 01:30 Temperature Pulse Rate 126 H 126 H Respiratory Rate 18 14 13 Blood Pressure 137/61 132/90 Pulse Oximetry 100 100 100 08/08/18 02:00 08/08/18 02:30 08/08/18 02:35 Temperature Pulse Rate 128 H 122 H 122 H Respiratory Rate 16 11 L 15 Blood Pressure 143/66 H 140/60 139/62 Pulse Oximetry 100 100 100 08/08/18 03:00 08/08/18 03:30 08/08/18 04:00 Temperature 100.4 F H Pulse Rate 122 H 123 H 123 H Respiratory Rate 14 11 L 16 Blood Pressure 127/93 H 135/63 154/66 H Pulse Oximetry 100 100 100 08/08/18 04:30 08/08/18 04:55 08/08/18 05:00 Temperature Pulse Rate 123 H 121 H Respiratory Rate 17 17 15 Blood Pressure 155/76 H 140/65 Pulse Oximetry 100 100 100 08/08/18 05:30 08/08/18 06:00 08/08/18 06:30 Temperature Pulse Rate 121 H 123 H 125 H Respiratory Rate 16 17 27 H Blood Pressure 136/65 170/96 H 176/68 H Pulse Oximetry 100 100 100 08/08/18 06:46 08/08/18 07:00 08/08/18 07:15 Temperature Pulse Rate 131 H 124 H 125 H Respiratory Rate 23 20 19 Blood Pressure 169/89 H 158/64 H 149/68 H Pulse Oximetry 100 100 100 08/08/18 07:30 08/08/18 07:45 08/08/18 08:00 Temperature 99.5 F Pulse Rate 124 H 123 H 125 H Respiratory Rate 18 20 18 Blood Pressure 139/64 149/70 H Pulse Oximetry 100 100 100 08/08/18 08:01 08/08/18 08:03 08/08/18 08:08 Temperature Pulse Rate 124 H 121 H 124 H Respiratory Rate 17 15 Blood Pressure 177/72 H 153/60 H Pulse Oximetry 100 100 100 08/08/18 08:30 08/08/18 09:00 08/08/18 09:01 Temperature Pulse Rate 122 H 120 H 121 H Respiratory Rate 18 21 18 Blood Pressure 139/67 144/67 H Pulse Oximetry 100 94 L 92 L 08/08/18 09:30 08/08/18 09:49 08/08/18 10:00 Temperature Pulse Rate 115 H 109 H Respiratory Rate 20 Blood Pressure 139/71 139/67 Pulse Oximetry 99 100 100 08/08/18 10:31 08/08/18 11:00 08/08/18 11:43 Temperature Pulse Rate 111 H 112 H 109 H Respiratory Rate 25 H Blood Pressure 140/71 131/67 129/64 Pulse Oximetry 100 100 99 08/08/18 12:00 08/08/18 12:30 08/08/18 13:00 Temperature Pulse Rate 115 H 115 H 114 H Respiratory Rate 25 H 26 H Blood Pressure 135/71 121/64 136/84 Pulse Oximetry 99 99 99 08/08/18 13:30 08/08/18 13:35 08/08/18 14:00 Temperature Pulse Rate 112 H 117 H 116 H Respiratory Rate 27 H 24 23 Blood Pressure 153/68 H 141/73 H Pulse Oximetry 100 91 L 08/08/18 14:30 08/08/18 15:00 08/08/18 15:30 Temperature Pulse Rate 109 H 106 H 106 H Respiratory Rate 23 26 H 23 Blood Pressure 149/80 H 152/61 H 120/67 Pulse Oximetry 100 99 100 08/08/18 16:00 08/08/18 16:30 08/08/18 17:00 Temperature Pulse Rate 105 H 109 H 110 H Respiratory Rate 20 24 27 H Blood Pressure 124/65 126/64 145/73 H Pulse Oximetry 100 100 99 08/08/18 17:30 08/08/18 18:00 08/08/18 18:17 Temperature Pulse Rate 112 H 111 H 114 H Respiratory Rate 29 H 28 H Blood Pressure 139/63 140/67 Pulse Oximetry 99 94 L 99 08/08/18 18:18 Temperature Pulse Rate Respiratory Rate 24 Blood Pressure Pulse Oximetry 99 Intake & Output 08/08/18 08/08/18 08/09/18 06:59 18:59 06:59 Intake Total 765 / 765 1085 / 1085 Output Total 1800 / 1800 1050 / 1050 Balance -1035 / -1035 35 / 35 Weight 81.5 kg Intake: IV 600 / 600 Maxipime Inj 2,000 MG In NS Inj 200 / 200 100 ML @ 200 mls/hr IV.SIG Q8H WOLF Rx#:[id number] KCl 20 mEq Premix Inj 20 meq In 200 / 200 100 ml @ 50 mls/hr IV.SIG Q2H PRN Rx#:[id number] Oral 0 / 0 Tube Feeding 265 / 265 485 / 485 Tube Irrigant 100 / 100 Water Bolus Amount 400 / 400 Anesthesia Amount 0 / 0 Output: Stool 1300 / 1300 500 / 500 Pleural Fluid 0 / 0 Urine Amount (Catheter) 500 / 500 550 / 550 Indwelling Temp Sensing 500 / 500 550 / 550 Catheter Gastric Drainage 0 / 0 Right Nare Nasogastric Tube 0 / 0 Other: Date of Last Bowel Movement 08/08/18 08/08/18 GENERAL: Obese AA male. mild sob SKIN: Warm and dry. HEAD: Normocephalic. EYES: No scleral icterus. No injection or drainage. NECK: Supple, trachea midline. No JVD or lymphadenopathy. has Trach CARDIOVASCULAR: Regular rate and rhythm without murmurs, gallops, or rubs. RESPIRATORY: Breath sounds equal bilaterally. No accessory muscle use. GASTROINTESTINAL: Abdomen soft, non-tender, distended. MUSCULOSKELETAL: No cyanosis, or edema. BACK: Nontender without obvious deformity. No CVA tenderness. - Urinary Catheter Management Indwelling Urethral Catheter Cath placed during this visit: yes, but has since been removed by the nurse Reason for continuing: Acute urinary retention Insertion date: 07/14/18 Insertion time: 21:55 Removal date: 08/02/18 Removal time: 07:59 Straight Cath placed during this visit: no Condom Cath placed during this visit: no Indwelling Temp Sensing Catheter Cath placed during this visit: yes Reason for continuing: Acute urinary retention Insertion date: 08/02/18 Insertion time: 08:00 Assessment and Plan - Plan IMPRESSION: Hypercapnoic RF, COPD exac AMS improved 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 Abdominal distension, s/p decompression. Ileus PLAN: Cont Trach collar Trach care Sedation with Precedex Aerosol nebs Supplement 02
[2018-08-09] MEDS: Insulin NovoLOG Aspart Correctional Sugar Inj SQ SCH ×6 (00:56→21:09)
[2018-08-09] MEDS: Artificial Tears Opth Drops 15 ML Bottle EACH EYE SCH ×3 (00:56→16:20)
[2018-08-09] MEDS: Pantoprazole Inj 40 MG Vial IV.PUSH SCH ×2 (03:01→13:22)
[2018-08-09 04:37] LABS: Potassium 4.3 meq/L (3.5-5.1); Vancomycin,Random 18.4 Comment
--- NOTE | 2018-08-09 08:30 | P.PNCC ---
Subjective Subjective Remarks/Hospital Course: Mr. Curry is a 73-year-old -English male with past medical history significant for COPD on 3 L nasal cannula, hypertension, hyperlipidemia and anxiety who was admitted to the hospitalist service on 06/19/2018 for worsening shortness of breath due to COPD exacerbation. He was treated with IV Solu- Medrol, IV antibiotics, breathing treatments gradually improved. Patient was also complaining about dyspepsia and underwent EGD by GI yesterday. Per report the EGD was normal but patient developed worsening shortness of breath and COPD exacerbation postprocedure, possibly from aspiration after sedated. Two ABGs done yesterday showed hypercapnic respiratory failure second 1 was on BiPAP and this was improved with pH 7.3 with PCO2 of 74. Patient remained on BiPAP overnight however was noticed to be lethargic today a.m., stat ABG showed pH of 7.21 PCO2 110 PO2 88 while on BiPAP. Patient was lethargic intermittently dozing off due to CO2 narcosis. Critical care medicine was consulted and I immediately evaluated the patient. Patient had obviously failed BiPAP I proceeded with endotracheal intubation placed on mechanical ventilation. Postintubation I have ordered single dose of Solu-Medrol 125 mg x1 continue Solu -Medrol 60 every 8, discontinue ceftriaxone and start cefepime 2 g IV every 8 hours continue azithromycin. Add budesonide inhaled, placed on scheduled DuoNeb every 4 hours and as needed. 06/27: Patient was intubated yesterday for severe hypercapnic respiratory failure. Currently remains intubated sedated and intubated remains diminished bilaterally. Heavily sedated for ventilator synchrony 06/28: Urine output significantly improved with fluid resuscitation. Creat down trending now 2 from 2.3, UO >3.3 L. Remains intubated sedated. Will initiate daily sedation vacation and CPAP trials 06/29: More awake today tolerating CPAP trials intermittently follows commands but gets agitated/frustrated fast. Urine output remains excellent creatinine 1.4. However sodium increasing 158 today. Night medical physics professor had changed fluid to D5 W for free water replacement. Due to hypoglycemia will change to quarter normal saline at 150 mL/h repeat CMP in the afternoon 06/30 Patient was extubated yesterday. Awake 07/01 Patient is lying in bed in NAD. T: 100.5 07/02: Intubated early this morning due to acute hypoxic respiratory failure. Central line placed due to hypotension. Plan for GI perform endoscopic decompression of this large bowel today. Arousable and does follow commands. Placed on argatroban 07/03: Currently, intubated with borderline blood pressure. Central line placed yesterday due to hypotension. Did not move bowels despite 1 L of fluid from colonoscopy yesterday and multiple laxatives provided. See orders for additional laxatives today. Might need neostigmine. 07/04 Patient remains intubated and sedated with Diprivan. Given Neostigmine last night. KUB this morning showed colonic ileus. Afebrile. On Argatroban. 07/05 No events overnight, sedated with Diprivan and intubated. Off Argatroban. 07/06 Patient remains intubated and sedated. Afebrile. 07/07 Patient remains intubated, s/p decompressive colonoscopy yesterday. Awake. 07/08 Patient s/p extubation yesterday. Awake and alert. 07/09 Patient is awake, alert lying in bed in NAD. Afebrile. 07/10 Patient is awake and alert, Afebrile. 07/11 Patient s/p decompressive colonoscopy yesterday. Afebrile. On Lasix drip.( UOP: 2800ml overnight). Cr: 3.0 from 2.25. 07/12 Patient is awake, alert given Neostigmine overnight. NGT to LIWS, off Lasix drip. 07/13: Resting comfortably in bed in no acute distress. 3 bowel movements documented. Remains n.p.o. Bladder pressures around 6. Potassium being replaced. Remains anemic around 7. 07/14 Patient is lying in bed in NAD. Afebrile. 07/15 No events overnight. Afebrile. 07/16: Resting in bed mild distress. Abdomen remains distended. Hemoglobin has dropped to 6.2 2 units of PRBC ordered. Patient underwent decompressive colonoscopy by Dr. Berrios for colonic ileus 07/17: No significant overnight events, patient states that he wants to get out of bed to a chair as he is having rectal discomfort. 07/18: Patient reportedly had a BM after digital rectal exam yesterday, states that he's been passing flatus "every now and then" overnight. No plans for OR or sigmoidoscopy as per colorectal service, [place] [facility] 07/19: Patient transferred to [facility] yesterday, complained of shortness of breath again today. An ABG showed a pCO2 of 79 so he was placed on bipap and transferred to [facility]. Most recent ABG shows pCO2 of 66, KUB still has abdominal distension but appears to be improved when compared to KUB from 07/15. Patient has reportedly been having bowel movements and passing flatus overnight. 07/20: No dramatic improvement in abdominal distention however abdomen soft. The patient was able to breathe comfortably overnight and remained alert. This morning the BiPAP mask was removed for half an hour and the patient did well without evidence of CO2 retention or somnolence. Reconsult note 07/23: The patient was a halicat from the [facility] floor. Patient was noted to be somnolent, had difficulty breathing. Stat ABG was performed revealing a PCO2 of 113. The patient was placed on BiPAP and transferred [place] [facility] Currently remains on CPAP respiratory rate is 25 , 16/5 with an FiO2 35%. 07/24: Overnight the patient was placed on BiPAP 10/5 refusing BiPAP pulling out IVs. The patient became tachycardic refusing p.o. medications. The patient was placed on a Cardizem infusion currently at 5 mg an hour. Patient is more compliant at this time the patient's BiPAP settings were increased to 15 /5 35% stat ABGs were ordered the patient was noted to have a PCO2 of 89, continues with hypercapnic respiratory failure in the setting of severe COPD. Extensive discussion with family at bedside the patient's sister and daughter provided medical status update on recent transfer to ICU and current standing. Inform family that patient is at risk for for emergent intubation. Repeat ABG pending this evening. 07/25: Patient noted to have episodes of agitation continually removing BiPAP. I discussed with patient the criticality of his illness and possible intubation patient now agrees to wear BiPAP with exception of meals. Patient's diet was advanced to clear liquid noted improvement of chest x-ray patient is noted to have last bowel movement approximately 2 days ago we will continue to monitor and follow-up GI recommendations . Noted electrolyte repletion at this time. PCO2 now in the 60s. 07/26: Patient continues to be noncompliant with BiPAP mask. ABGs obtained noting a PO2 of 45.6. The patient was emergently intubated this afternoon. Chest x-ray and repeat ABG pending at this time. Noted patient's last bowel movement last night. 07/27: Afebrile. Remains on ventilator. Will start tube feeding today. BM noted overnight. Replacing potassium phosphate, calcium chloride x1 now. And magnesium sulfate 07/28: Afebrile. Did not tolerate CPAP trial the same. Tolerating tube feeds today. Last bowel movement yesterday 09/26. Mild ileus on abdominal x-ray today. 07/29: Afebrile. Tolerated CPAP times 3 hours. He is intolerant to P. 2 bowel movements. Abdominal x-ray unchanged but no signs of obstructive or ileus. 07/30: Afebrile. Currently on CPAP trials. Positive BM. No change in neurological status. Increasing metoprolol to 5 mg IV every 6 hours. Subjective 07/31: Again on CPAP trials. Awake and alert on dexmedetomidine drip. Will put on metoprolol tartrate 25 mg every 8 hours and titrate. Positive BM. Recheck KUB in a.m. 08/01. 08/01: Currently tolerating CPAP, but requiring 15 pressure support. Patient had been intubated 3 times this admission, according to the caregiver and go from had to do patient's a total of several intubation in the last 2-3 months. I discussed with the patient was agreeable for tracheostomy, I also discussed with Stephanie patient's daughter and she has given consent for tracheostomy. Plan for tracheostomy tomorrow 08/02: Patient currently on Precedex awake alert not tolerating CPAP trials. Plan for tracheostomy today. Transfuse 1 unit PRBC 1 pack units of platelets prior to trach 08/03: Patient remains calm on the vent currently tolerating pressure support 06/06. Status post tracheostomy yesterday no significant bleeding. Platelet count 103 today. 08/04: Patient placed on CPAP trials this a.m. and continues without difficulty. Precedex infusion currently at 1.5 mcgs/kg/hour. Tentative plan for PEG tube placement procedure on hold awaiting discussion with family, POA. Patient continues to have large bowel movements. 08/05: Continued copious large bowel movement. Fecal containment device / Dignashield applied. Placement of PEG tube continues to be on hold ,due to the inability to contact the POA. 08/06: Palliative care executive team leader Ms. Pittman had extensive meeting with the patient's POA tentative plan for placement of PEG tube. 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 Brown infectious disease. Patient continues to be agitated and requires Precedex infusion currently at 1.5, plan to initiate Seroquel this evening and attempts to decrease agitation, and subsequently discontinue Precedex infusion. The patient has been initiated on trach collar trials and continues greater than 6 hours. 08/07: No acute events overnight. GI consult for PEG placement. Tolerating tube feeds. 08/08: The patient tolerated T-piece for approximately 10 hours. Patient placed back on CPAP this evening. Agitation resolved with ministration of Seroquel. Patient responding to questions nodding head yes and no. 08/09: Currently on vent support, tolerates CPAP. Attempt T-piece daily, check chest x-ray today repeat labs in a.m. Objective Vital Signs / I&O: Vital Signs 08/08/18 08:30 08/08/18 09:00 08/08/18 09:01 Temperature Pulse Rate 122 H 120 H 121 H Respiratory Rate 18 21 18 Blood Pressure 139/67 144/67 H Pulse Oximetry 100 94 L 92 L 08/08/18 09:30 08/08/18 09:49 08/08/18 10:00 Temperature Pulse Rate 115 H 109 H Respiratory Rate 20 Blood Pressure 139/71 139/67 Pulse Oximetry 99 100 100 08/08/18 10:31 08/08/18 11:00 08/08/18 11:43 Temperature Pulse Rate 111 H 112 H 109 H Respiratory Rate 25 H Blood Pressure 140/71 131/67 129/64 Pulse Oximetry 100 100 99 08/08/18 12:00 08/08/18 12:30 08/08/18 13:00 Temperature Pulse Rate 115 H 115 H 114 H Respiratory Rate 25 H 26 H Blood Pressure 135/71 121/64 136/84 Pulse Oximetry 99 99 99 08/08/18 13:30 08/08/18 13:35 08/08/18 14:00 Temperature Pulse Rate 112 H 117 H 116 H Respiratory Rate 27 H 24 23 Blood Pressure 153/68 H 141/73 H Pulse Oximetry 100 91 L 08/08/18 14:30 08/08/18 15:00 08/08/18 15:30 Temperature Pulse Rate 109 H 106 H 106 H Respiratory Rate 23 26 H 23 Blood Pressure 149/80 H 152/61 H 120/67 Pulse Oximetry 100 99 100 08/08/18 16:00 08/08/18 16:30 08/08/18 17:00 Temperature Pulse Rate 105 H 109 H 110 H Respiratory Rate 20 24 27 H Blood Pressure 124/65 126/64 145/73 H Pulse Oximetry 100 100 99 08/08/18 17:30 08/08/18 18:00 08/08/18 18:17 Temperature Pulse Rate 112 H 111 H 114 H Respiratory Rate 29 H 28 H Blood Pressure 139/63 140/67 Pulse Oximetry 99 94 L 99 08/08/18 18:18 08/08/18 18:30 08/08/18 19:00 Temperature Pulse Rate 114 H 103 H Respiratory Rate 24 27 H 44 H Blood Pressure 133/63 135/64 Pulse Oximetry 99 100 100 08/08/18 19:26 08/08/18 19:30 08/08/18 19:43 Temperature Pulse Rate 100 H 103 H Respiratory Rate 16 24 23 Blood Pressure 133/62 136/65 Pulse Oximetry 92 L 100 100 08/08/18 19:46 08/08/18 20:00 08/08/18 20:30 Temperature 98.6 F Pulse Rate 101 H 102 H 107 H Respiratory Rate 11 L 16 20 Blood Pressure 146/68 H 138/111 H Pulse Oximetry 100 95 08/08/18 20:32 08/08/18 20:34 08/08/18 21:00 Temperature Pulse Rate 108 H 107 H 105 H Respiratory Rate 18 19 17 Blood Pressure 134/114 H 150/84 H Pulse Oximetry 100 100 92 L 08/08/18 21:01 08/08/18 21:31 08/08/18 22:00 Temperature Pulse Rate 105 H 106 H 103 H Respiratory Rate 19 19 20 Blood Pressure 150/80 H 115/62 132/75 Pulse Oximetry 100 100 100 08/08/18 22:30 08/08/18 23:00 08/08/18 23:30 Temperature Pulse Rate 109 H 109 H 111 H Respiratory Rate 21 22 26 H Blood Pressure 142/65 H 143/63 H 144/65 H Pulse Oximetry 100 100 100 08/08/18 23:33 08/09/18 00:00 08/09/18 00:30 Temperature 99.3 F Pulse Rate 111 H 116 H Respiratory Rate 24 27 H 27 H Blood Pressure 133/66 133/68 Pulse Oximetry 100 100 100 08/09/18 01:00 08/09/18 01:30 08/09/18 02:00 Temperature Pulse Rate 118 H 120 H 121 H Respiratory Rate 27 H 29 H 29 H Blood Pressure 129/60 140/62 144/64 H Pulse Oximetry 100 100 100 08/09/18 02:26 08/09/18 02:30 08/09/18 02:31 Temperature Pulse Rate 122 H 122 H Respiratory Rate 26 H 24 25 H Blood Pressure 146/68 H Pulse Oximetry 100 100 08/09/18 03:00 08/09/18 03:31 08/09/18 04:00 Temperature 99.3 F Pulse Rate 119 H 115 H 115 H Respiratory Rate 20 17 17 Blood Pressure 126/69 157/65 H 132/64 Pulse Oximetry 99 100 100 08/09/18 04:03 08/09/18 04:30 08/09/18 06:00 Temperature Pulse Rate 119 H 122 H Respiratory Rate 18 19 Blood Pressure 129/68 Pulse Oximetry 100 100 Intake & Output 08/08/18 08/09/18 08/09/18 18:59 06:59 18:59 Intake Total 1085 / 1085 1412 / 1412 Output Total 1050 / 1050 1150 / 1150 Balance 35 / 35 262 / 262 Weight 84.1 kg Intake: IV 600 / 600 400 / 400 Maxipime Inj 2,000 MG In NS Inj 200 / 200 200 / 200 100 ML @ 200 mls/hr IV.SIG Q8H WOLF Rx#:[id number] KCl 20 mEq Premix Inj 20 meq In 200 / 200 200 / 200 100 ml @ 50 mls/hr IV.SIG Q2H PRN Rx#:[id number] Tube Feeding 485 / 485 492 / 492 Tube Irrigant 120 / 120 Water Bolus Amount 400 / 400 Output: Stool 500 / 500 500 / 500 Urine Amount (Catheter) 550 / 550 650 / 650 Indwelling Temp Sensing 550 / 550 650 / 650 Catheter Other: Date of Last Bowel Movement 08/08/18 08/09/18 Result Diagrams: 08/08/18 03:59 08/09/18 03:36 Objective Remarks: GENERAL: 73-year-old chronically ill appearing elderly -English male lying in bed, awake , calm currently on PRVC SKIN: Warm and dry HEAD: Normocephalic. EYES: PERRL NECK: Supple, trachea midline. New tracheostomy with minimal dry blood around the site CARDIOVASCULAR: Normal rhythm. S1, S2. No S4. No murmur RESPIRATORY: Diminished breath sounds in bases noted. B/L equal air entry, patient. tolerating trach collar trials GASTROINTESTINAL: Abdomen less distended, non-tender, no guarding, bowel sounds present MUSCULOSKELETAL: Trace to bilateral upper/ lower extremity edema, warm and well- perfused NEURO: Alert awake, periods of agitation intermittently. Follows commands by moving upper and lower extremities. Assessment and Plan - Assessment and Plan Plan: NEURO/Psych: Altered mental status due to CO2 retention -Discontinued Precedex 08/03 -F/U acetylcholine receptor and autoantibodies was negative RESP: Hypercapnic respiratory failure Acute COPD exacerbation -Extubated 06/29. Reintubated 07/02 extubated again 07/07, reintubated 07/26 -Status post tracheostomy 08/02/2018. CPAP trial with T-piece 8-12 hours as tolerated -Albuterol/ipratropium aerosols every 4 hours scheduled and albuterol aerosols every 2 hours as needed -Continue steroids IV, Inhaled budesonide CV: Essential hypertension - Monitor HR and BP keep MAP>65mmHg - Toprol tartrate 25 mg by tube every 8 hours GI: Colonic ileus -KUB 07/13: Stable nonobstructive colonic distention. -Given Neostigmine 07/11. -s/p repeat decompressive colonoscopy 07/10 and 07/15 -Continue pantoprazole -On docusate sodium/senna 1 tablet twice daily, lactulose 30 cc 4 times daily, polyethylene glycol 17 g daily. Fleets enema daily. Naltrexone 12 mg subcu daily -NG tube. Tube feeding with Glucerna 1.5 goal 45 cc daily per rectum recent recommendation -Abdominal x-ray revealed nonspecific bowel gas pattern. 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 FEN//renal: Electrolyte derangement -Monitor renal function, I/O's, avoid nephrotoxins -Renal function stable -Renal- Dr. Figueroa has followed -Repletion of electrolytes per protocol -Free water 200 cc every 6 hours -08/05 C. difficile PCR-negative ID: -Off abx monitor for signs of infections (Fever, WBC) WBC stable -BC and urine cx from 07/11- NG -07/02 BC: NGTS, sputum cx 07/02:normal resp justyn -ID is following- Dr. Brown PRN -Urine culture from 07/28/2018 growing Koki. Repeat cultures sent 08/02/2018 after replacing Moreno HEME: Normocytic anemia Thrombocytopenia -Monitor CBC, coags, Hep PLT is positive. ANNMARIE negative. Hematology is following. Off argatroban drip -s/p 2U PRBCs on 07/16, Hgb 8.8, used for hemoglobin less than 7 -Give 1 unit of PRBC and 1 pack units of platelets today in anticipation of tracheostomy -Stable thrombocytopenia-avoid medications that precipitate thrombocytopenia ENDO: -Sliding scale insulin medium scale aspart insulin every 4 hours. Continue insulin detemir 10 units twice daily PROPH: -Bilateral lower extremity SCDs. PPI -Doppler US LE negative DVT 07/02 -Continue Lovenox 40 mg daily LINES: -Utilize peripheral IVs Level 2 follow-up Continue ICU care, consider LTAC placement Code Status: Full
--- NOTE | 2018-08-09 08:55 | XR ---
EXAM DATE: 08/09/2018 8:51 AM EST AGE/SEX: 73 years / Male INDICATIONS: Respiratory disease. CLINICAL DATA: This is the patient's subsequent encounter. Patient reports that signs and symptoms h ave been present for 1 week and indicates a pain score of Nonresponsive. MEDICAL/SURGICAL HISTORY: . Chronic obstructive pulmonary disease. Hypertension. Diabetes. Non e. COMPARISON: [facility] [place], CHEST 1V SINGLE AP, 08/03/2018. . FINDINGS: No significant change is noted compared to the prior exam. Chronic lung disease with pulmonary hyperinflation is again noted. Diffuse central interstitial vascular prominence remains evident. Bibasilar opacity indicative of airspace disease and possible small effusions remains evident and angelo ear stable. CONCLUSION: No significant change. Electronically signed by: Jcarlos Torres MD 08/09/2018 8:54 AM EST
[2018-08-09] MEDS: Docusate Sodium Liq 100 MG/10 ML UDC NG/OG SCH ×2 (09:03→21:10)
[2018-08-09] MEDS: Bisacodyl 10 MG Supp RECTAL SCH (09:03)
[2018-08-09] MEDS: Polyethylene Glycol 3350 17 GM Packet PO SCH (09:04)
[2018-08-09] MEDS: Enoxaparin Inj 40 MG/0.4 ML Syringe SQ SCH (09:04)
[2018-08-09] MEDS: Metoprolol Tartrate 25 MG Tablet PO SCH ×3 (09:04→17:43)
[2018-08-09] MEDS: Insulin Detemir Inj 1,000 UNIT/10 ML Vial SQ SCH ×2 (09:04→21:10)
[2018-08-09] MEDS: Methylnaltrexone Inj 12 MG/0.6 ML Vial SQ SCH (09:05)
[2018-08-09] MEDS: Calcium/Vitamin D 250/125 MG Tablet PO SCH (09:05)
[2018-08-09] MEDS: QUEtiapine 25 MG Tablet PO SCH ×2 (09:05→21:11)
[2018-08-09] MEDS: Sennosides Liq 8.8 MG/5 ML UDC NG/OG SCH ×2 (09:05→21:10)
[2018-08-09] MEDS: Multivitamin/Minerals Therapeutic Tablet PO SCH (09:06)
[2018-08-09] MEDS: Ascorbic Acid 500 MG Tablet PO SCH (09:06)
--- NOTE | 2018-08-09 15:08 | MB ---
cc: Jeanine Chirinos MD DATE: 08/09/2018 REQUESTING PHYSICIAN: Evita Foster MD REASON FOR CONSULTATION: Sacral coccygeal wound. HISTORY OF PRESENT ILLNESS: The patient is a 73-year-old male who was admitted on 06/22/2018 with history of significant COPD and worsening shortness of breath. The patient has been here since then and presently has a tracheostomy. The patient is on ventilator support. It was recently noted that the patient has a sacral coccygeal area of excoriation and consultation is requested regarding evaluation and treatment of the wound. PAST MEDICAL HISTORY: The patient has a history of anxiety, asthma, chronic back pain, COPD, hyperlipidemia, hypertension. PAST SURGICAL HISTORY: She had a colonoscopy and procedures as noted during this admission. ALLERGIES: SHELLFISH-DERIVED, ANAPHYLAXIS. MEDICATIONS: Listed on the chart. PHYSICAL EXAMINATION: GENERAL: The patient is in bed. He is not communicating. SKIN: Examination is focused on the sacrococcygeal area where the patient has evidence of excoriation consistent with a stage II decubitus ulcer. There is no evidence of cellulitis. The area measures approximately 4 x 5 cm on each side of variable areas. IMPRESSION: Stage II decubitus ulcers. PLAN: The patient has been ordered to have a flotation type mattress. In addition, they are turning him as they have been. In addition, we will put some Optifoam on the wounds with zinc oxide on the normal skin in order to prevent additional moisture sequela. Jeanine Chirinos MD Ray/jarred , 01:52 PM , 02:01 PM
--- NOTE | 2018-08-09 17:14 | P.PNPL ---
Subjective Interval history: 73 YOAA male with COPD, 02 dependent Follows at [facility] Admitted with AMS, COPD exac. Lethargic, put back on Vent Sister at Physical Exam Vital signs: Vital Signs 08/08/18 17:30 08/08/18 18:00 08/08/18 18:17 Temperature Pulse Rate 112 H 111 H 114 H Respiratory Rate 29 H 28 H Blood Pressure 139/63 140/67 Pulse Oximetry 99 94 L 99 08/08/18 18:18 08/08/18 18:30 08/08/18 19:00 Temperature Pulse Rate 114 H 103 H Respiratory Rate 24 27 H 44 H Blood Pressure 133/63 135/64 Pulse Oximetry 99 100 100 08/08/18 19:26 08/08/18 19:30 08/08/18 19:43 Temperature Pulse Rate 100 H 103 H Respiratory Rate 16 24 23 Blood Pressure 133/62 136/65 Pulse Oximetry 92 L 100 100 08/08/18 19:46 08/08/18 20:00 08/08/18 20:30 Temperature 98.6 F Pulse Rate 101 H 102 H 107 H Respiratory Rate 11 L 16 20 Blood Pressure 146/68 H 138/111 H Pulse Oximetry 100 95 08/08/18 20:32 08/08/18 20:34 08/08/18 21:00 Temperature Pulse Rate 108 H 107 H 105 H Respiratory Rate 18 19 17 Blood Pressure 134/114 H 150/84 H Pulse Oximetry 100 100 92 L 08/08/18 21:01 08/08/18 21:31 08/08/18 22:00 Temperature Pulse Rate 105 H 106 H 103 H Respiratory Rate 19 19 20 Blood Pressure 150/80 H 115/62 132/75 Pulse Oximetry 100 100 100 08/08/18 22:30 08/08/18 23:00 08/08/18 23:30 Temperature Pulse Rate 109 H 109 H 111 H Respiratory Rate 21 22 26 H Blood Pressure 142/65 H 143/63 H 144/65 H Pulse Oximetry 100 100 100 08/08/18 23:33 08/09/18 00:00 08/09/18 00:30 Temperature 99.3 F Pulse Rate 111 H 116 H Respiratory Rate 24 27 H 27 H Blood Pressure 133/66 133/68 Pulse Oximetry 100 100 100 08/09/18 01:00 08/09/18 01:30 08/09/18 02:00 Temperature Pulse Rate 118 H 120 H 121 H Respiratory Rate 27 H 29 H 29 H Blood Pressure 129/60 140/62 144/64 H Pulse Oximetry 100 100 100 08/09/18 02:26 08/09/18 02:30 08/09/18 02:31 Temperature Pulse Rate 122 H 122 H Respiratory Rate 26 H 24 25 H Blood Pressure 146/68 H Pulse Oximetry 100 100 08/09/18 03:00 08/09/18 03:31 08/09/18 04:00 Temperature 99.3 F Pulse Rate 119 H 115 H 115 H Respiratory Rate 20 17 17 Blood Pressure 126/69 157/65 H 132/64 Pulse Oximetry 99 100 100 08/09/18 04:03 08/09/18 04:30 08/09/18 05:00 Temperature Pulse Rate 119 H 119 H Respiratory Rate 18 19 18 Blood Pressure 129/68 134/75 Pulse Oximetry 100 100 100 08/09/18 05:30 08/09/18 06:00 08/09/18 06:30 Temperature Pulse Rate 120 H 121 H 124 H Respiratory Rate 31 H 35 H 39 H Blood Pressure 146/78 H 151/72 H 150/82 H Pulse Oximetry 100 100 99 08/09/18 07:00 08/09/18 07:30 08/09/18 08:00 Temperature Pulse Rate 120 H 125 H 127 H Respiratory Rate 30 H 42 H 32 H Blood Pressure 142/72 H 148/93 H 150/89 H Pulse Oximetry 100 100 100 08/09/18 08:27 08/09/18 08:30 08/09/18 09:00 Temperature 99.3 F Pulse Rate 123 H 125 H 126 H Respiratory Rate 28 H 23 22 Blood Pressure 144/71 H 150/96 H Pulse Oximetry 100 100 100 08/09/18 09:30 08/09/18 10:00 08/09/18 10:01 Temperature Pulse Rate 122 H 114 H 114 H Respiratory Rate 27 H 23 23 Blood Pressure 138/89 Pulse Oximetry 100 100 100 08/09/18 10:03 08/09/18 10:34 08/09/18 10:37 Temperature Pulse Rate 114 H 114 H 112 H Respiratory Rate 21 21 25 H Blood Pressure 160/97 H 136/101 H 154/72 H Pulse Oximetry 100 100 99 08/09/18 11:00 08/09/18 11:01 08/09/18 11:31 Temperature Pulse Rate 112 H 112 H 111 H Respiratory Rate 19 19 16 Blood Pressure 153/93 H 132/60 Pulse Oximetry 100 100 100 08/09/18 12:00 08/09/18 12:31 08/09/18 13:00 Temperature 99.2 F Pulse Rate 112 H 111 H 115 H Respiratory Rate 19 18 18 Blood Pressure 107/57 L 139/60 144/71 H Pulse Oximetry 100 100 100 08/09/18 13:30 08/09/18 14:00 08/09/18 14:01 Temperature Pulse Rate 112 H 113 H 111 H Respiratory Rate 23 30 H 19 Blood Pressure 160/65 H 143/63 H Pulse Oximetry 100 100 100 08/09/18 14:31 08/09/18 15:00 08/09/18 15:35 Temperature Pulse Rate 108 H 104 H 110 H Respiratory Rate 21 23 22 Blood Pressure 121/65 114/68 113/72 Pulse Oximetry 100 100 100 08/09/18 16:00 Temperature 99.2 F Pulse Rate 109 H Respiratory Rate 20 Blood Pressure 128/81 Pulse Oximetry 100 Intake & Output 08/08/18 08/09/18 08/09/18 18:59 06:59 18:59 Intake Total 1085 / 1085 1412 / 1412 100 / 100 Output Total 1050 / 1050 1150 / 1150 Balance 35 / 35 262 / 262 100 / 100 Weight 84.1 kg Intake: IV 600 / 600 400 / 400 100 / 100 Maxipime Inj 2,000 MG In NS Inj 200 / 200 200 / 200 100 / 100 100 ML @ 200 mls/hr IV.SIG Q12H WOLF Rx#:[id number] KCl 20 mEq Premix Inj 20 meq In 200 / 200 200 / 200 100 ml @ 50 mls/hr IV.SIG Q2H PRN Rx#:[id number] Tube Feeding 485 / 485 492 / 492 Tube Irrigant 120 / 120 Water Bolus Amount 400 / 400 Output: Stool 500 / 500 500 / 500 Urine Amount (Catheter) 550 / 550 650 / 650 Indwelling Temp Sensing 550 / 550 650 / 650 Catheter Other: Date of Last Bowel Movement 08/08/18 08/09/18 08/09/18 GENERAL: WBWN sob, on vent SKIN: Warm and dry. HEAD: Normocephalic. EYES: No scleral icterus. No injection or drainage. NECK: Supple, trachea midline. No JVD or lymphadenopathy. Trach in place CARDIOVASCULAR: Regular rate and rhythm without murmurs, gallops, or rubs. RESPIRATORY: Breath sounds equal bilaterally. No accessory muscle use. GASTROINTESTINAL: Abdomen soft, non-tender, nondistended. MUSCULOSKELETAL: No cyanosis, or edema. BACK: Nontender without obvious deformity. No CVA tenderness. - Urinary Catheter Management Indwelling Urethral Catheter Cath placed during this visit: yes, but has since been removed by the nurse Reason for continuing: Acute urinary retention Insertion date: 07/14/18 Insertion time: 21:55 Removal date: 08/02/18 Removal time: 07:59 Straight Cath placed during this visit: no Condom Cath placed during this visit: no Indwelling Temp Sensing Catheter Cath placed during this visit: yes Reason for continuing: Acute urinary retention Insertion date: 08/02/18 Insertion time: 08:00 Assessment and Plan - Plan IMPRESSION: Hypercapnoic RF, COPD exac AMS improved 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 Abdominal distension, s/p decompression. Ileus PLAN: Cont Vent support CPAP trial in AM Trach care Sedation with Precedex Aerosol nebs Supplement 02 DW pt's sister at BS
[2018-08-09] MEDS ORDERED: Vancomycin Inj 1,250 MG in Sodium Chlor 0.9% Inj 250 ML IV.SIG ONE (18:00)
[2018-08-10] MEDS: Artificial Tears Opth Drops 15 ML Bottle EACH EYE SCH ×3 (00:15→15:26)
[2018-08-10] MEDS: Insulin NovoLOG Aspart Correctional Sugar Inj SQ SCH ×6 (00:15→21:10)
[2018-08-10] MEDS: Pantoprazole Inj 40 MG Vial IV.PUSH SCH ×2 (02:21→14:36)
[2018-08-10 04:41] LABS: Mean Corpuscular HGB Conc 31.6 % (32.0-36.0); Mean Corpuscular Hemoglobin 30.2 pg (27.0-34.0); Mean Corpuscular Volume 95.7 fL (80.0-100.0); Mean Platelet Volume 9.3 fL (7.0-11.0); Platelet Count 160 th/mm3 (150-450); Red Cell Distribution Width 17.2 % (11.6-17.2); White Blood Count 12.6 th/mm3 (4.0-11.0)
[2018-08-10 05:09] LABS: Alanine Aminotransferase 61 U/L (12-78); Albumin 1.9 g/dL (3.4-5.0); Alkaline Phosphatase 188 U/L (45-117); Anion Gap 6 meq/L (5-15); Aspartate Aminotransferase 67 U/L (15-37); Blood Urea Nitrogen 53 mg/dL (7-18); Calcium 7.6 mg/dL (8.5-10.1); Carbon Dioxide 27.6 meq/L (21.0-32.0); Chloride 111 meq/L (98-107); Glomerular Filtration Rate 32 mL/min (>89); Glucose,Random 137 mg/dL (74-106); Magnesium 2.1 mg/dL (1.5-2.5); Potassium 4.4 meq/L (3.5-5.1); Sodium 145 meq/L (136-145); Total Protein 6.4 g/dL (6.4-8.2); Vancomycin,Random 31.7 Comment
[2018-08-10] MEDS: Bisacodyl 10 MG Supp RECTAL SCH (08:14)
[2018-08-10] MEDS: Insulin Detemir Inj 1,000 UNIT/10 ML Vial SQ SCH ×2 (08:14→21:11)
[2018-08-10] MEDS: Docusate Sodium Liq 100 MG/10 ML UDC NG/OG SCH ×2 (08:14→21:10)
[2018-08-10] MEDS: Metoprolol Tartrate 25 MG Tablet PO SCH ×3 (08:15→18:05)
[2018-08-10] MEDS: Polyethylene Glycol 3350 17 GM Packet PO SCH (08:15)
[2018-08-10] MEDS: Sennosides Liq 8.8 MG/5 ML UDC NG/OG SCH ×2 (08:16→21:10)
[2018-08-10] MEDS: Ascorbic Acid 500 MG Tablet PO SCH (08:16)
[2018-08-10] MEDS: Calcium/Vitamin D 250/125 MG Tablet PO SCH (08:16)
[2018-08-10] MEDS: Multivitamin/Minerals Therapeutic Tablet PO SCH (08:16)
[2018-08-10] MEDS: QUEtiapine 25 MG Tablet PO SCH ×2 (08:16→21:11)
[2018-08-10] MEDS: Methylnaltrexone Inj 12 MG/0.6 ML Vial SQ SCH (08:16)
--- NOTE | 2018-08-10 08:19 | P.PNCC ---
Subjective Subjective Remarks/Hospital Course: Mr. Curry is a 73-year-old -[place] male with past medical history significant for COPD on 3 L nasal cannula, hypertension, hyperlipidemia and anxiety who was admitted to the hospitalist service on 06/19/2018 for worsening shortness of breath due to COPD exacerbation. He was treated with IV Solu- Medrol, IV antibiotics, breathing treatments gradually improved. Patient was also complaining about dyspepsia and underwent EGD by GI yesterday. Per report the EGD was normal but patient developed worsening shortness of breath and COPD exacerbation postprocedure, possibly from aspiration after sedated. Two ABGs done yesterday showed hypercapnic respiratory failure second 1 was on BiPAP and this was improved with pH 7.3 with PCO2 of 74. Patient remained on BiPAP overnight however was noticed to be lethargic today a.m., stat ABG showed pH of 7.21 PCO2 110 PO2 88 while on BiPAP. Patient was lethargic intermittently dozing off due to CO2 narcosis. Critical care medicine was consulted and I immediately evaluated the patient. Patient had obviously failed BiPAP I proceeded with endotracheal intubation placed on mechanical ventilation. Postintubation I have ordered single dose of Solu-Medrol 125 mg x1 continue Solu -Medrol 60 every 8, discontinue ceftriaxone and start cefepime 2 g IV every 8 hours continue azithromycin. Add budesonide inhaled, placed on scheduled DuoNeb every 4 hours and as needed. 06/27: Patient was intubated yesterday for severe hypercapnic respiratory failure. Currently remains intubated sedated and intubated remains diminished bilaterally. Heavily sedated for ventilator synchrony 06/28: Urine output significantly improved with fluid resuscitation. Creat down trending now 2 from 2.3, UO >3.3 L. Remains intubated sedated. Will initiate daily sedation vacation and CPAP trials 06/29: More awake today tolerating CPAP trials intermittently follows commands but gets agitated/frustrated fast. Urine output remains excellent creatinine 1.4. However sodium increasing 158 today. Night engraver wood had changed fluid to D5 W for free water replacement. Due to hypoglycemia will change to quarter normal saline at 150 mL/h repeat CMP in the afternoon 06/30 Patient was extubated yesterday. Awake 07/01 Patient is lying in bed in NAD. T: 100.5 07/02: Intubated early this morning due to acute hypoxic respiratory failure. Central line placed due to hypotension. Plan for GI perform endoscopic decompression of this large bowel today. Arousable and does follow commands. Placed on argatroban 07/03: Currently, intubated with borderline blood pressure. Central line placed yesterday due to hypotension. Did not move bowels despite 1 L of fluid from colonoscopy yesterday and multiple laxatives provided. See orders for additional laxatives today. Might need neostigmine. 07/04 Patient remains intubated and sedated with Diprivan. Given Neostigmine last night. KUB this morning showed colonic ileus. Afebrile. On Argatroban. 07/05 No events overnight, sedated with Diprivan and intubated. Off Argatroban. 07/06 Patient remains intubated and sedated. Afebrile. 07/07 Patient remains intubated, s/p decompressive colonoscopy yesterday. Awake. 07/08 Patient s/p extubation yesterday. Awake and alert. 07/09 Patient is awake, alert lying in bed in NAD. Afebrile. 07/10 Patient is awake and alert, Afebrile. 07/11 Patient s/p decompressive colonoscopy yesterday. Afebrile. On Lasix drip.( UOP: 2800ml overnight). Cr: 3.0 from 2.25. 07/12 Patient is awake, alert given Neostigmine overnight. NGT to LIWS, off Lasix drip. 07/13: Resting comfortably in bed in no acute distress. 3 bowel movements documented. Remains n.p.o. Bladder pressures around 6. Potassium being replaced. Remains anemic around 7. 07/14 Patient is lying in bed in NAD. Afebrile. 07/15 No events overnight. Afebrile. 07/16: Resting in bed mild distress. Abdomen remains distended. Hemoglobin has dropped to 6.2 2 units of PRBC ordered. Patient underwent decompressive colonoscopy by Dr. Berrios for colonic ileus 07/17: No significant overnight events, patient states that he wants to get out of bed to a chair as he is having rectal discomfort. 07/18: Patient reportedly had a BM after digital rectal exam yesterday, states that he's been passing flatus "every now and then" overnight. No plans for OR or sigmoidoscopy as per colorectal service, OK to transfer out of [facility]. 07/19: Patient transferred to [facility] yesterday, complained of shortness of breath again today. An ABG showed a pCO2 of 79 so he was placed on bipap and transferred to [facility]. Most recent ABG shows pCO2 of 66, KUB still has abdominal distension but appears to be improved when compared to KUB from 07/15. Patient has reportedly been having bowel movements and passing flatus overnight. 07/20: No dramatic improvement in abdominal distention however abdomen soft. The patient was able to breathe comfortably overnight and remained alert. This morning the BiPAP mask was removed for half an hour and the patient did well without evidence of CO2 retention or somnolence. Reconsult note 07/23: The patient was a halicat from the [facility] floor. Patient was noted to be somnolent, had difficulty breathing. Stat ABG was performed revealing a PCO2 of 113. The patient was placed on BiPAP and transferred to [facility]. Currently remains on CPAP respiratory rate is 25 , 16/5 with an FiO2 35%. 07/24: Overnight the patient was placed on BiPAP 10/5 refusing BiPAP pulling out IVs. The patient became tachycardic refusing p.o. medications. The patient was placed on a Cardizem infusion currently at 5 mg an hour. Patient is more compliant at this time the patient's BiPAP settings were increased to 15 /5 35% stat ABGs were ordered the patient was noted to have a PCO2 of 89, continues with hypercapnic respiratory failure in the setting of severe COPD. Extensive discussion with family at bedside the patient's sister and daughter provided medical status update on recent transfer to ICU and current standing. Inform family that patient is at risk for for emergent intubation. Repeat ABG pending this evening. 07/25: Patient noted to have episodes of agitation continually removing BiPAP. I discussed with patient the criticality of his illness and possible intubation patient now agrees to wear BiPAP with exception of meals. Patient's diet was advanced to clear liquid noted improvement of chest x-ray patient is noted to have last bowel movement approximately 2 days ago we will continue to monitor and follow-up GI recommendations . Noted electrolyte repletion at this time. PCO2 now in the 60s. 07/26: Patient continues to be noncompliant with BiPAP mask. ABGs obtained noting a PO2 of 45.6. The patient was emergently intubated this afternoon. Chest x-ray and repeat ABG pending at this time. Noted patient's last bowel movement last night. 07/27: Afebrile. Remains on ventilator. Will start tube feeding today. BM noted overnight. Replacing potassium phosphate, calcium chloride x1 now. And magnesium sulfate 07/28: Afebrile. Did not tolerate CPAP trial the same. Tolerating tube feeds today. Last bowel movement yesterday 09/26. Mild ileus on abdominal x-ray today. 07/29: Afebrile. Tolerated CPAP times 3 hours. He is intolerant to P. 2 bowel movements. Abdominal x-ray unchanged but no signs of obstructive or ileus. 07/30: Afebrile. Currently on CPAP trials. Positive BM. No change in neurological status. Increasing metoprolol to 5 mg IV every 6 hours. 07/31: Again on CPAP trials. Awake and alert on dexmedetomidine drip. Will put on metoprolol tartrate 25 mg every 8 hours and titrate. Positive BM. Recheck KUB in a.m. 08/01. 08/01: Currently tolerating CPAP, but requiring 15 pressure support. Patient had been intubated 3 times this admission, according to the caregiver and go from had to do patient's a total of several intubation in the last 2-3 months. I discussed with the patient was agreeable for tracheostomy, I also discussed with Stephanie patient's daughter and she has given consent for tracheostomy. Plan for tracheostomy tomorrow 08/02: Patient currently on Precedex awake alert not tolerating CPAP trials. Plan for tracheostomy today. Transfuse 1 unit PRBC 1 pack units of platelets prior to trach 08/03: Patient remains calm on the vent currently tolerating pressure support 06/06. Status post tracheostomy yesterday no significant bleeding. Platelet count 103 today. 08/04: Patient placed on CPAP trials this a.m. and continues without difficulty. Precedex infusion currently at 1.5 mcgs/kg/hour. Tentative plan for PEG tube placement procedure on hold awaiting discussion with family, POA. Patient continues to have large bowel movements. 08/05: Continued copious large bowel movement. Fecal containment device / Dignashield applied. Placement of PEG tube continues to be on hold ,due to the inability to contact the POA. 08/06: Palliative care body team member Ms. Pittman had extensive meeting with the patient's POA tentative plan for placement of PEG tube. 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 Brown infectious disease. Patient continues to be agitated and requires Precedex infusion currently at 1.5, plan to initiate Seroquel this evening and attempts to decrease agitation, and subsequently discontinue Precedex infusion. The patient has been initiated on trach collar trials and continues greater than 6 hours. 08/07: No acute events overnight. GI consult for PEG placement. Tolerating tube feeds. 08/08: The patient tolerated T-piece for approximately 10 hours. Patient placed back on CPAP this evening. Agitation resolved with ministration of Seroquel. Patient responding to questions nodding head yes and no. 08/09: Currently on vent support, tolerates CPAP. Attempt T-piece daily, check chest x-ray today repeat labs in a.m. Subjective 08/10: T-max 100. Remains tachycardic. More lethargic today. Leaking around tracheostomy site. Increasing rate and tidal volume. Objective Vital Signs / I&O: Vital Signs 08/09/18 08:27 08/09/18 08:30 08/09/18 09:00 Temperature 99.3 F Pulse Rate 123 H 125 H 126 H Respiratory Rate 28 H 23 22 Blood Pressure 144/71 H 150/96 H Pulse Oximetry 100 100 100 08/09/18 09:30 08/09/18 10:00 08/09/18 10:01 Temperature Pulse Rate 122 H 114 H 114 H Respiratory Rate 27 H 23 23 Blood Pressure 138/89 Pulse Oximetry 100 100 100 08/09/18 10:03 08/09/18 10:34 08/09/18 10:37 Temperature Pulse Rate 114 H 114 H 112 H Respiratory Rate 21 21 25 H Blood Pressure 160/97 H 136/101 H 154/72 H Pulse Oximetry 100 100 99 08/09/18 11:00 08/09/18 11:01 08/09/18 11:31 Temperature Pulse Rate 112 H 112 H 111 H Respiratory Rate 19 19 16 Blood Pressure 153/93 H 132/60 Pulse Oximetry 100 100 100 08/09/18 12:00 08/09/18 12:31 08/09/18 13:00 Temperature 99.2 F Pulse Rate 112 H 111 H 115 H Respiratory Rate 19 18 18 Blood Pressure 107/57 L 139/60 144/71 H Pulse Oximetry 100 100 100 08/09/18 13:30 08/09/18 14:00 08/09/18 14:01 Temperature Pulse Rate 112 H 113 H 111 H Respiratory Rate 23 30 H 19 Blood Pressure 160/65 H 143/63 H Pulse Oximetry 100 100 100 08/09/18 14:31 08/09/18 15:00 08/09/18 15:35 Temperature Pulse Rate 108 H 104 H 110 H Respiratory Rate 21 23 22 Blood Pressure 121/65 114/68 113/72 Pulse Oximetry 100 100 100 08/09/18 16:00 08/09/18 16:31 08/09/18 17:00 Temperature 99.2 F Pulse Rate 109 H 109 H 109 H Respiratory Rate 20 19 19 Blood Pressure 128/81 138/64 118/82 Pulse Oximetry 100 100 100 08/09/18 17:30 08/09/18 18:00 08/09/18 19:00 Temperature Pulse Rate 110 H 111 H 102 H Respiratory Rate 19 34 H 31 H Blood Pressure 123/75 134/73 119/65 Pulse Oximetry 100 100 100 08/09/18 19:30 08/09/18 20:00 08/09/18 20:21 Temperature Pulse Rate 101 H 102 H Respiratory Rate 25 H 31 H 18 Blood Pressure 108/80 116/73 Pulse Oximetry 100 100 100 08/09/18 20:22 08/09/18 20:30 08/09/18 21:00 Temperature Pulse Rate 102 H 99 H 96 H Respiratory Rate 19 16 16 Blood Pressure 131/72 173/105 H Pulse Oximetry 100 100 08/09/18 21:12 08/09/18 21:30 08/09/18 22:00 Temperature Pulse Rate 93 H 98 H 100 H Respiratory Rate 16 16 20 Blood Pressure 141/58 H 114/56 L 107/57 L Pulse Oximetry 100 100 100 08/09/18 22:30 08/09/18 23:00 08/09/18 23:30 Temperature Pulse Rate 106 H 99 H 100 H Respiratory Rate 16 16 16 Blood Pressure 106/60 112/59 L 116/63 Pulse Oximetry 100 100 100 08/10/18 00:00 08/10/18 00:08 08/10/18 00:30 Temperature 98.8 F Pulse Rate 100 H 99 H Respiratory Rate 16 16 16 Blood Pressure 117/62 123/68 Pulse Oximetry 100 100 100 08/10/18 01:00 08/10/18 01:30 08/10/18 02:00 Temperature Pulse Rate 102 H 102 H 100 H Respiratory Rate 17 16 16 Blood Pressure 131/62 111/66 120/68 Pulse Oximetry 100 100 100 08/10/18 02:30 08/10/18 03:00 08/10/18 03:01 Temperature Pulse Rate 101 H 104 H 105 H Respiratory Rate 15 21 19 Blood Pressure 127/73 134/80 Pulse Oximetry 100 100 100 08/10/18 03:09 08/10/18 03:30 08/10/18 04:00 Temperature 98.4 F Pulse Rate 111 H 111 H Respiratory Rate 17 20 24 Blood Pressure 139/68 147/71 H Pulse Oximetry 100 100 100 08/10/18 04:30 08/10/18 05:00 08/10/18 06:00 Temperature Pulse Rate 109 H 109 H 110 H Respiratory Rate 18 19 Blood Pressure 135/84 123/82 Pulse Oximetry 100 100 08/10/18 07:48 Temperature Pulse Rate Respiratory Rate 18 Blood Pressure Pulse Oximetry 100 Intake & Output 08/09/18 08/10/18 08/10/18 18:59 06:59 18:59 Intake Total 1032 / 1032 1346.5 / 1346.5 Output Total 1050 / 1050 500 / 500 Balance - 846.5 / 846.5 Weight 77.5 kg Intake: IV 100 / 100 362.5 / 362.5 Maxipime Inj 2,000 MG In NS Inj 100 / 100 100 / 100 100 ML @ 200 mls/hr IV.SIG Q12H [facility] Rx#:[id number] Tube Feeding 432 / 432 484 / 484 Tube Irrigant 100 / 100 Water Bolus Amount 500 / 500 400 / 400 Output: Stool 700 / 700 500 / 500 Urine Amount (Catheter) 350 / 350 0 / 0 Indwelling Temp Sensing 350 / 350 0 / 0 Catheter Other: Date of Last Bowel Movement 08/09/18 08/10/18 Result Diagrams: 08/10/18 04:18 08/10/18 04:18 Other Results: Microbiology 08/03/18 14:30 Blood - Peripheral Aerobic Blood Culture - Final No growth in 5 days 08/03/18 14:30 Blood - Peripheral Anaerobic Blood Culture - Final Staphylococcus epidermidis 08/03/18 14:56 Blood - Peripheral Aerobic Blood Culture - Final Staphylococcus coag negative 08/03/18 14:56 Blood - Peripheral Anaerobic Blood Culture - Final Staphylococcus epidermidis 08/02/18 09:30 Catheterized Urine Urine Culture - Final Enterococcus faecalis Klebsiella pneumoniae 07/28/18 06:00 Catheterized Urine Urine Culture - Final Koki albicans 07/11/18 13:50 Blood - Peripheral Aerobic Blood Culture - Final No growth in 5 days 07/11/18 13:50 Blood - Peripheral Anaerobic Blood Culture - Final No growth in 5 days 07/11/18 02:48 Blood - Peripheral Aerobic Blood Culture - Final No growth in 5 days 07/11/18 02:48 Blood - Peripheral Anaerobic Blood Culture - Final No growth in 5 days 07/11/18 16:50 Clean Catch Urine Urine Culture - Final No growth in 48 hours 07/09/18 00:30 Stool Cryptosporidium Antigen - Final Negative - No Cryptosporicium antigen detected In selected cases of patients with a history of immunosuppression or foreign travel, a full ova and parasites examination may be desired. Contact the microbiology lab if full workup is indicated and subit another specimen for testing. 07/09/18 00:30 Stool Giardia Antigen (GERONIMO) - Final Negative - No Giardia Antigen detected In selected cases of patients with a history of immunosuppression or foreign travel, a full ova and parasites examination may be desired. Contact the microbiology lab if full workup is indicated and subit another specimen for testing. 07/02/18 05:41 Blood - Peripheral Aerobic Blood Culture - Final No growth in 5 days 07/02/18 05:41 Blood - Peripheral Anaerobic Blood Culture - Final No growth in 5 days 07/02/18 05:47 Blood - Peripheral Aerobic Blood Culture - Final No growth in 5 days 07/02/18 05:47 Blood - Peripheral Anaerobic Blood Culture - Final No growth in 5 days 07/02/18 22:00 Sputum - Endotracheal Gram Stain - Final 07/02/18 22:00 Sputum - Endotracheal Sputum Culture - Final Heavy growth normal respiratory justyn 06/26/18 10:10 Sputum - Endotracheal Gram Stain - Final 06/26/18 10:10 Sputum - Endotracheal Sputum Culture - Final Light growth normal respiratory justyn Imaging: Chest X-Ray 06/19/18 20:38 CONCLUSION: No evidence of acute cardiopulmonary disease. Abdomen Ultrasound 06/21/18 00:00 CONCLUSION: 1. No ascites is identified within the abdomen. Abdomen X-Ray 06/21/18 00:00 CONCLUSION: No acute findings. Mild constipation. Chest X-Ray 06/23/18 00:00 CONCLUSION: 1. No acute abnormality or significant interval change. Abdomen/Pelvis CT 06/24/18 00:00 CONCLUSION: 1. Benign appearing right adrenal mass. 2. No acute CT findings in the abdomen or pelvis. Chest X-Ray 06/25/18 00:00 CONCLUSION: Suspected mild atelectasis or consolidation at the medial right base. Chest X-Ray 06/26/18 00:00 CONCLUSION: 1. Endotracheal tube is appropriately positioned above the christy. 2. Nasogastric tube traverses the GE junction and is curled in the gastric lumen. 3. Lungs are clear. Abdomen X-Ray 06/26/18 09:21 CONCLUSION: 1. Nonobstructive bowel gas pattern without pneumoperitoneum. 2. Nasogastric tube is curled in the expected location of the gastric body. I believe the portions of the tube identified over the heart shadow is probably projectional as there is no evidence of a significant hiatal hernia on the most recent CT of the abdomen. Chest X-Ray 06/26/18 15:37 CONCLUSION: 1. Lungs remain clear. 2. Interval placement of a right IJ central venous catheter with the tip projecting over the central venous system. No pneumothorax. 3. Endotracheal and nasogastric tubes remain appropriately positioned. Abdomen/Bladder Ultrasound 06/28/18 00:00 CONCLUSION: 1. Echogenic kidneys characteristic of medical renal disease. No hydronephrosis. Bladder decompressed by Moreno Chest X-Ray 06/28/18 06:00 CONCLUSION: The lungs are clear. Lines and tubes stable. Chest X-Ray 06/29/18 06:00 CONCLUSION: The lungs are clear. Lines and tubes stable. Venous Doppler Study 07/01/18 00:00 CONCLUSION: 1. The study is negative for bilateral lower extremity deep venous thrombosis. Chest X-Ray 07/01/18 20:41 CONCLUSION: Negative examination. Chest CTA 07/02/18 00:00 CONCLUSION: 1. No pulmonary embolus. 2. Diffuse but basilar predominant bilateral airspace disease. 3. Endotracheal and endobronchial secretions are demonstrated. 4. Moderate emphysema. 5. Left ventricular hypertrophy. Venous Doppler Study 07/02/18 00:00 CONCLUSION: 1. Limited, no evidence for thrombosis. Chest X-Ray 07/02/18 04:04 CONCLUSION: 1. Interim intubation and nasogastric tube placement as above. 2. Mild bibasilar atelectasis has developed. Abdomen/Pelvis CT 07/02/18 04:20 CONCLUSION: Colonic distention most likely representing moderate adynamic ileus. However, distal sigmoid colon is decompressed and a sigmoid stricture is conceivable but considered less likely. Apparent mild proctitis. Clinical surveillance and follow-up CT recommended. Chest X-Ray 07/02/18 14:46 CONCLUSION: Left IJ line in good position. There is no pneumothorax. Abdomen X-Ray 07/04/18 00:01 CONCLUSION: Findings of colonic ileus Chest X-Ray 07/04/18 06:00 CONCLUSION: Cardiomegaly and findings of vascular congestion without overt failure. There has been no significant change when compared to the prior exam. Abdomen X-Ray 07/05/18 07:08 CONCLUSION: No significant interval change with persistent diffuse air-filled distention of the colon suggesting ileus. Chest X-Ray 07/07/18 07:12 CONCLUSION: Minimal bibasilar densities likely atelectasis. Abdomen X-Ray 07/07/18 07:13 CONCLUSION: Gaseous distention of multiple bowel loops has improved since previous study. Abdomen X-Ray 07/09/18 07:14 CONCLUSION: 1. Apparent interval removal of NGT. 2. Improving bowel gas pattern consistent with improving adynamic ileus. Abdomen/Pelvis CT 07/10/18 08:31 CONCLUSION: 1. There is gas and fluid distending the colon. The patient has a rectal tube in place however the rectal tube is kinked back on itself and occluded. The overall size of the colon has mildly increased when compared to previous exam. The small bowel is normal in caliber. 2. Interval development of a small left basilar effusion and atelectasis. Chest X-Ray 07/10/18 08:42 CONCLUSION: Mild patchy bilateral lung base opacity likely representing atelectasis unchanged. Small left pleural effusion now seen. Abdomen X-Ray 07/11/18 00:00 CONCLUSION: 1. Questionable NGT at the GE junction, as above. 2. Moderately improved colonic distention. Abdomen X-Ray 07/12/18 00:00 CONCLUSION: Probable generalized ileus. No abrupt caliber changes are seen. No free air. Nasogastric tube tip is in the upper stomach. No gastric distention seen. Abdomen X-Ray 07/14/18 06:00 CONCLUSION: Distended air-filled colon. Ileus is the most likely etiology for this pattern. Abdomen X-Ray 07/15/18 00:00 CONCLUSION: Persistent air-filled loops of small and large bowel suggesting probably ileus. Clinical correlation is recommended. Venous Doppler Study 07/15/18 00:00 CONCLUSION: 1. Limited suboptimal examination. 2. Nonocclusive thrombus in the jugular vein. Chest X-Ray 07/16/18 10:00 CONCLUSION: Mild bibasilar consolidations, presumably atelectasis is unchanged. Abdomen X-Ray 07/19/18 14:09 CONCLUSION: Negative examination. Chest X-Ray 07/19/18 14:10 CONCLUSION: 1. No acute cardiopulmonary disease. 2. Mild degenerative changes and scoliosis of the thoracic spine. Chest X-Ray 07/23/18 00:00 CONCLUSION: Negative examination. Chest X-Ray 07/24/18 00:00 CONCLUSION: Mild bibasilar consolidation. Chest X-Ray 07/25/18 04:00 CONCLUSION: Previous basilar opacity has resolved. No new infiltrate or effusion. Abdomen X-Ray 07/26/18 00:00 CONCLUSION: Orogastric tube tip is in the distal stomach or proximal duodenum. Chest X-Ray 07/26/18 17:00 CONCLUSION: 1. ETT in good position. 2. No acute abnormality. Chest X-Ray 07/27/18 04:00 CONCLUSION: Endotracheal tube and nasogastric tube in good position. Minimal dependent atelectasis in the lungs. Abdomen X-Ray 07/28/18 00:01 CONCLUSION: Mild ileus. No evidence for obstruction or free air. Chest X-Ray 07/28/18 06:00 CONCLUSION: Mild basilar atelectasis. No effusion or pneumothorax. Abdomen X-Ray 07/29/18 00:01 CONCLUSION: NG tip in duodenum. No acute findings. Chest X-Ray 07/29/18 06:00 CONCLUSION: Endotracheal tube and nasogastric tube unchanged. Stable to slight increase in basilar airspace disease since July 28. Chest X-Ray 07/30/18 06:00 CONCLUSION: Stable exam compared with July 22, 2017 with support apparatus in good position. Abdomen X-Ray 07/30/18 15:07 CONCLUSION: Benign-appearing KUB. Chest X-Ray 07/31/18 06:00 CONCLUSION: Increase in basilar airspace disease since July 30. Support apparatus unchanged. Chest X-Ray 08/01/18 06:00 CONCLUSION: Mild improvement in the bibasilar airspace opacity. Abdomen X-Ray 08/01/18 09:59 CONCLUSION: NG tube in place. Mild gaseous distention of portions of colon. Chest X-Ray 08/02/18 06:00 CONCLUSION: Stable chest x-ray with mild bibasilar opacity representing either atelectasis or consolidation. Chest X-Ray 08/03/18 06:00 CONCLUSION: Stable bibasilar airspace opacity representing either atelectasis or airspace consolidation. There is also a questionable hazy opacity at the right base which could indicate a small pleural effusion. Chest X-Ray 08/09/18 00:00 CONCLUSION: No significant change. Objective Remarks: GENERAL: 73-year-old chronically ill appearing elderly -[place] male lying in bed, awake , [facility]: Warm and dry HEAD: Normocephalic. EYES: PERRL NECK: Supple, trachea midline. New tracheostomy with minimal dry blood around the site CARDIOVASCULAR: Normal rhythm. S1, S2. No S4. No murmur RESPIRATORY: Diminished breath sounds in bases noted. B/L equal air entry, patient. tolerating trach collar trials GASTROINTESTINAL: Abdomen less distended, non-tender, no guarding, bowel sounds present MUSCULOSKELETAL: Trace to bilateral upper/ lower extremity edema, warm and well- perfused NEURO: Alert awake, lethargic but follows commands. Follows commands by moving upper and lower extremities. Assessment and Plan - Assessment and Plan Plan: NEURO/Psych: Altered mental status due to CO2 retention -Discontinued dexmedetomidine 08/03 -F/U acetylcholine receptor and autoantibodies was negative -Currently on quetiapine 25 mg twice daily at night Holding duloxetine 20 mg daily/home medication Acetaminophen 650 by tube every 4 hours as needed fever Oxycodone/acetaminophen 5/25 1 tablet every 4 hours as needed pain RESP: Hypercapnic respiratory failure Acute COPD exacerbation -Extubated 06/29. Reintubated 07/02 extubated again 07/07, reintubated 07/26 -Status post tracheostomy 08/02/2018. CPAP trial with T-piece 8-12 hours as tolerated -Albuterol/ipratropium aerosols every 4 hours scheduled and albuterol aerosols every 2 hours as needed -Continue budesonide twice daily CV: Essential hypertension - Monitor HR and BP keep MAP>65mmHg -Metoprolol tartrate 25 mg by tube every 8 hours GI: Colonic ileus -KUB 07/13: Stable nonobstructive colonic distention. -Given Neostigmine 07/11. -s/p repeat decompressive colonoscopy 07/10 and 07/15 -Continue pantoprazole -On docusate sodium/senna 1 tablet twice daily, lactulose 30 cc 4 times daily, polyethylene glycol 17 g daily. Fleets enema daily. Naltrexone 12 mg subcu daily -NG tube. Tube feeding with Glucerna 1.5 goal 45 cc daily per rectum recent recommendation -Abdominal x-ray revealed nonspecific bowel gas pattern. 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 Currently on Glucerna 1.5 goal 45 cc an hour FEN//renal: Acute renal injury -Monitor renal function, I/O's, avoid nephrotoxins -Renal function stable -Renal- Dr. Figueroa has followed -Repletion of electrolytes per protocol -Free water 200 cc every 6 hours -08/05 C. difficile PCR-negative Recheck urine eosinophils, sodium, creatinine and renal ultrasound today with worsening renal function. Vancomycin discontinued. ID: Staph epi bacteremia Enterococcus/Klebsiella pneumonia -Off abx monitor for signs of infections (Fever, WBC) WBC stable -BC and urine cx from 07/11- NG -07/02 BC: NGTS, sputum cx 07/02:normal resp justyn -ID is following- Dr. Brown PRN -Urine culture from 07/28/2018 growing Koki. Repeat cultures sent 08/02/2018 after replacing Moreno Currently on vancomycin, cefepime times 8 days total per infectious disease recommendation per discontinued 08/10. 25 mg twice daily: Normocytic anemia Thrombocytopenia -Monitor CBC, coags, Hep PLT is positive. ANNMARIE negative. Hematology is following. Off argatroban drip -s/p 2U PRBCs on 07/16, Hgb 8.8, used for hemoglobin less than 7 -Give 1 unit of PRBC and 1 pack units of platelets today in anticipation of tracheostomy -Stable thrombocytopenia-avoid medications that precipitate thrombocytopenia ENDO: -Sliding scale insulin medium scale aspart insulin every 4 hours. Continue insulin detemir 10 units twice daily PROPH: -Bilateral lower extremity SCDs. PPI -Doppler US LE negative DVT 07/02 -Continue Lovenox 40 mg daily LINES: -Utilize peripheral IVs Level 2 follow-up Continue ICU care, consider LTAC placement
[2018-08-10 08:21] LABS: ABG Base Excess 0.7 mmol/L (-2-2); ABG PCO2 58 mmHg (38-42); ABG PO2 133 mmHG (61-120)
[2018-08-10] MEDS ORDERED: Sod Chloride 0.9% Inj 1,000 ML IV.SIG ONE (08:25)
[2018-08-10] MEDS: Enoxaparin Inj 30 MG/0.3 ML Syringe SQ SCH (08:30)
[2018-08-10 09:20] LABS: Creatinine,Urine Random 49 mg/dL (27-300); Sodium,Urine Random 56 meq/L
[2018-08-10 09:22] LABS: Bacteria,Urine Occasional /hpf; Bilirubin,Urine Negative (Negative); Clarity,Urine Cloudy (Clear); Color,Urine Yellow (Yellw/Straw); Glucose,Urine (UA) Negative (Negative); Leukocyte Esterase,Urine Moderate (Negative); Mucus,Urine Few /lpf (Occasional); Nitrite,Urine Negative (Negative); Specific Gravity,Urine 1.014 (1.002-1.035); Squamous Epithelial Cell,Urine <1 /hpf (0-5)
--- NOTE | 2018-08-10 10:38 | US ---
EXAM DATE: 08/10/2018 10:20 AM EST AGE/SEX: 73 years / Male INDICATIONS: Increased BUN/Creatnine. CLINICAL DATA: This is the patient's subsequent encounter. Patient reports that signs and symptoms h ave been present for 1 day and indicates a pain score of 0/10. MEDICAL/SURGICAL HISTORY: . Chronic obstructive pulmonary disease. Hypertension. Anxiety. Asthm a. Chronic back pain. None. COMPARISON: [facility] – [place], US KIDNEY/RENAL/BLADDER, 06/28/2018. . MEASUREMENTS: Right Kidney:__10.5 x 4.6 x 4.2 cm Left Kidney:__11.2 x 4.5 x 5.1 cm FINDINGS: Right Kidney: Normal renal cortical thickness and echogenicity. No mass or hydronephrosis. Left Kidney: Normal renal cortical thickness and echogenicity. No mass or hydronephrosis. Bladder: Decompressed. Not well evaluated. Other: None. CONCLUSION: 1. Normal sonographic evaluation of the kidneys. 2. No evidence of hydronephrosis. 3. Decompressed bladder. Electronically signed by: Jcarlos Torres MD 08/10/2018 10:37 AM EST
--- NOTE | 2018-08-10 15:21 | P.PNPL ---
Subjective Interval history: 73 YOAA male with COPD, 02 dependent Follows at [facility] Admitted with AMS, COPD exac. lethargic Off Precedex but gets Seraquil Was on Vent, now on CPAP had 1 unit PRBC Physical Exam Vital signs: Vital Signs 08/09/18 15:35 08/09/18 16:00 08/09/18 16:31 Temperature 99.2 F Pulse Rate 110 H 109 H 109 H Respiratory Rate 22 20 19 Blood Pressure 113/72 128/81 138/64 Pulse Oximetry 100 100 100 08/09/18 17:00 08/09/18 17:30 08/09/18 18:00 Temperature Pulse Rate 109 H 110 H 111 H Respiratory Rate 19 19 34 H Blood Pressure 118/82 123/75 134/73 Pulse Oximetry 100 100 100 08/09/18 19:00 08/09/18 19:30 08/09/18 20:00 Temperature Pulse Rate 102 H 101 H 102 H Respiratory Rate 31 H 25 H 31 H Blood Pressure 119/65 108/80 116/73 Pulse Oximetry 100 100 100 08/09/18 20:21 08/09/18 20:22 08/09/18 20:30 Temperature Pulse Rate 102 H 99 H Respiratory Rate 18 19 16 Blood Pressure 131/72 Pulse Oximetry 100 100 08/09/18 21:00 08/09/18 21:12 08/09/18 21:30 Temperature Pulse Rate 96 H 93 H 98 H Respiratory Rate 16 16 16 Blood Pressure 173/105 H 141/58 H 114/56 L Pulse Oximetry 100 100 100 08/09/18 22:00 08/09/18 22:30 08/09/18 23:00 Temperature Pulse Rate 100 H 106 H 99 H Respiratory Rate 20 16 16 Blood Pressure 107/57 L 106/60 112/59 L Pulse Oximetry 100 100 100 08/09/18 23:30 08/10/18 00:00 08/10/18 00:08 Temperature 98.8 F Pulse Rate 100 H 100 H Respiratory Rate 16 16 16 Blood Pressure 116/63 117/62 Pulse Oximetry 100 100 100 08/10/18 00:30 08/10/18 01:00 08/10/18 01:30 Temperature Pulse Rate 99 H 102 H 102 H Respiratory Rate 16 17 16 Blood Pressure 123/68 131/62 111/66 Pulse Oximetry 100 100 100 08/10/18 02:00 08/10/18 02:30 08/10/18 03:00 Temperature Pulse Rate 100 H 101 H 104 H Respiratory Rate 16 15 21 Blood Pressure 120/68 127/73 Pulse Oximetry 100 100 100 08/10/18 03:01 08/10/18 03:09 08/10/18 03:30 Temperature Pulse Rate 105 H 111 H Respiratory Rate 19 17 20 Blood Pressure 134/80 139/68 Pulse Oximetry 100 100 100 08/10/18 04:00 08/10/18 04:30 08/10/18 05:00 Temperature 98.4 F Pulse Rate 111 H 109 H 109 H Respiratory Rate 24 18 19 Blood Pressure 147/71 H 135/84 123/82 Pulse Oximetry 100 100 100 08/10/18 05:31 08/10/18 06:00 08/10/18 06:30 Temperature Pulse Rate 108 H 110 H 109 H Respiratory Rate 20 17 19 Blood Pressure 163/71 H 125/71 119/75 Pulse Oximetry 100 100 100 08/10/18 07:00 08/10/18 07:30 08/10/18 07:48 Temperature Pulse Rate 106 H 106 H Respiratory Rate 17 17 18 Blood Pressure 126/78 125/95 H Pulse Oximetry 100 100 100 08/10/18 08:00 08/10/18 08:31 08/10/18 09:00 Temperature 99.1 F Pulse Rate 97 H 86 95 H Respiratory Rate 18 18 18 Blood Pressure 115/61 115/72 Pulse Oximetry 100 80 L 08/10/18 10:00 08/10/18 11:00 08/10/18 11:23 Temperature Pulse Rate 94 H 95 H 96 H Respiratory Rate 18 18 17 Blood Pressure 122/58 L 121/65 Pulse Oximetry 100 100 100 08/10/18 12:00 08/10/18 12:27 08/10/18 12:29 Temperature 99.5 F 99.5 F Pulse Rate 109 H 102 H 101 H Respiratory Rate 27 H 23 23 Blood Pressure 155/77 H 142/78 H 142/78 H Pulse Oximetry 100 99 100 08/10/18 12:30 08/10/18 12:45 08/10/18 13:00 Temperature 99.0 F Pulse Rate 105 H 95 H 88 Respiratory Rate 29 H 20 20 Blood Pressure 159/76 H 162/77 H 161/70 H Pulse Oximetry 99 99 99 08/10/18 13:07 08/10/18 13:15 08/10/18 13:31 Temperature Pulse Rate 95 H 96 H 97 H Respiratory Rate 20 20 21 Blood Pressure 160/68 H 152/62 H 150/92 H Pulse Oximetry 99 99 99 08/10/18 14:00 Temperature Pulse Rate 99 H Respiratory Rate 21 Blood Pressure 131/93 H Pulse Oximetry 99 Intake & Output 08/09/18 08/10/18 08/10/18 18:59 06:59 18:59 Intake Total 1032 / 1032 1346.5 / 1346.5 1100 / 1100 Output Total 1050 / 1050 500 / 500 Balance - 846.5 / 846.5 1100 / 1100 Weight 77.5 kg Intake: IV 100 / 100 362.5 / 362.5 1100 / 1100 Maxipime Inj 2,000 MG In NS Inj 100 / 100 100 / 100 100 / 100 100 ML @ 200 mls/hr IV.SIG Q12H WOLF Rx#:[id number] NS Inj 1,000 ML @ Wide Open IV. 1000 / 1000 SIG BOLUS ONE Rx#:[id number] Tube Feeding 432 / 432 484 / 484 Tube Irrigant 100 / 100 Water Bolus Amount 500 / 500 400 / 400 Intake (Blood Product) Amt 0 / 0 Rbc As-3 Leukoreduced Unit 0 / 0 [id number] Output: Stool 700 / 700 500 / 500 Urine Amount (Catheter) 350 / 350 0 / 0 Indwelling Temp Sensing 350 / 350 0 / 0 Catheter Other: Date of Last Bowel Movement 08/09/18 08/10/18 08/10/18 GENERAL: WBWN AA male, mild sob SKIN: Warm and dry. HEAD: Normocephalic. EYES: No scleral icterus. No injection or drainage. NECK: Supple, trachea midline. No JVD or lymphadenopathy. CARDIOVASCULAR: Regular rate and rhythm without murmurs, gallops, or rubs. RESPIRATORY: Breath sounds equal bilaterally. No accessory muscle use. GASTROINTESTINAL: Abdomen soft, non-tender, distended. MUSCULOSKELETAL: No cyanosis, or edema. BACK: Nontender without obvious deformity. No CVA tenderness. - Urinary Catheter Management Indwelling Urethral Catheter Cath placed during this visit: yes, but has since been removed by the nurse Reason for continuing: Acute urinary retention Insertion date: 07/14/18 Insertion time: 21:55 Removal date: 08/02/18 Removal time: 07:59 Straight Cath placed during this visit: no Condom Cath placed during this visit: no Indwelling Temp Sensing Catheter Cath placed during this visit: yes, but has since been removed by the nurse Reason for continuing: Decision to DC catheter Insertion date: 08/02/18 Insertion time: 08:00 Removal date: 08/09/18 Removal time: 18:30 Assessment and Plan - Plan IMPRESSION: Hypercapnoic RF, COPD exac AMS improved 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 Abdominal distension, s/p decompression. Ileus PLAN: Cont Vent support Daily CPAP trial Trach care Aerosol nebs Supplement 02 Monitor H/H
--- NOTE | 2018-08-10 16:36 | CT ---
EXAM DATE: 08/10/2018 4:28 PM EST AGE/SEX: 73 years / Male INDICATIONS: Altered Mental Status CLINICAL DATA: This is the patient's initial encounter. Patient reports that signs and symptoms have been present for 1 day and indicates a pain score of Nonresponsive. MEDICAL/SURGICAL HISTORY: Chronic obstructive pulmonary disease. Hypertension. None. RADIATION DOSE: 40.39 CTDI (mGy) [place] [facility] [place] 02/08/2013. . TECHNIQUE: CT of the head without contrast. Using automated exposure control and adjustment of the mA and/or kV according to patient size, radiation dose was kept as low as reasonably achievable to ob tain optimal diagnostic quality images. DICOM format image data is available electronically for revi ew and comparison. FINDINGS: Cerebrum: There is mild generalized atrophy and ventricles are normal given the degree of atrophy. No midline shift, mass lesion, hemorrhage or acute infarction. No extraaxial fluid collections are s een. Posterior Fossa: The cerebellum and brainstem demonstrate no acute abnormality. The 4th ventricle is midline. The cerebellopontine angle is within normal limits. Extracranial: The visualized sinuses are clear. Skull: The calvaria is intact. No skull fracture. CONCLUSION: Stable noncontrast head CT. No acute intracranial abnormality is identified. . Electronically signed by: Jimy Mendoza MD 08/10/2018 4:34 PM EST
[2018-08-10] MEDS: Albumin Human 5% Inj 500 ML IV.SIG SCH (18:05)
--- NOTE | 2018-08-10 21:14 | MR ---
EXAM DATE: 08/10/2018 8:43 PM EST AGE/SEX: 73 years / Male INDICATIONS: Altered mental status. CLINICAL DATA: This is the patient's subsequent encounter. Patient reports that signs and symptoms h ave been present for 2 months and indicates a pain score of 0/10. MEDICAL/SURGICAL HISTORY: Chronic obstructive pulmonary disease. Hypertension. Hypercholester olemia. . Tracheostomy. COMPARISON: [facility], CT HEAD W/O CONTRAST, 08/10/2018. . TECHNIQUE: Multiplanar, multisequence examination of the brain was performed without contrast. FINDINGS: Cerebrum: There is mild generalized atrophy with ventricular size within normal limits given the degr ee of atrophy. No midline shift, mass lesion, hemorrhage or acute infarction. No extraaxial fluid c ollections are seen. The pituitary gland and suprasellar cistern are normal in configuration. White Matter: No significant signal abnormalities are seen in the white matter. Posterior Fossa: The cerebellum and brainstem demonstrate no acute abnormality. The 4th ventricle is midline. The cerebellopontine angle is within normal limits. The cerebellar tonsils are normal in p osition. Diffusion Imaging: No areas of restricted diffusion are seen. Extracranial: The visualized sinuses are clear. CONCLUSION: No acute intracranial abnormality is identified. Electronically signed by: Jimy Mendoza MD 08/10/2018 9:13 PM EST
[2018-08-11] MEDS: Insulin NovoLOG Aspart Correctional Sugar Inj SQ SCH ×6 (00:30→20:01)
[2018-08-11] MEDS: Artificial Tears Opth Drops 15 ML Bottle EACH EYE SCH ×3 (00:30→15:36)
[2018-08-11] MEDS: Pantoprazole Inj 40 MG Vial IV.PUSH SCH ×2 (01:00→13:47)
--- NOTE | 2018-08-11 05:03 | XR ---
EXAM DATE: 08/11/2018 4:46 AM EST AGE/SEX: 73 years / Male INDICATIONS: Shortness of breath, possible pulmonary disease. CLINICAL DATA: This is the patient's subsequent encounter. Patient reports that signs and symptoms h ave been present for 1 week and indicates a pain score of Nonresponsive. MEDICAL/SURGICAL HISTORY: Chronic obstructive pulmonary disease. Hypertension. Asthma. None. COMPARISON: 08/09/2018. FINDINGS: Single AP view the chest. Tracheostomy tube and nasogastric tube remain in place. Decrease in mild bi lateral lower lung zone predominant pulmonary opacity. No evidence of pneumothorax or pleural effusio n. Cardiomediastinal silhouette unchanged. CONCLUSION: Decrease in bilateral pulmonary opacity indicating decreased pulmonary edema or infection. Electronically signed by: Ernesto Figueredo MD 08/11/2018 5:02 AM EST
[2018-08-11] MEDS: Albumin Human 5% Inj 500 ML IV.SIG SCH ×2 (05:35→17:53)
[2018-08-11 06:19] LABS: Baso % (Auto) 0.2 % (0.0-2.0); Eos # (Auto) 0.1 th/mm3 (0.0-0.4); Eos % (Auto) 0.7 % (0.0-4.0); Hematocrit 23.3 % (39.0-51.0); Hemoglobin 7.6 gm/dL (13.0-17.0); Lymph # (Auto) 1.4 th/mm3 (1.0-4.8); Lymph % (Auto) 12.5 % (9.0-44.0); Mean Corpuscular HGB Conc 32.5 % (32.0-36.0); Mean Corpuscular Hemoglobin 30.1 pg (27.0-34.0); Mean Corpuscular Volume 92.5 fL (80.0-100.0); Mean Platelet Volume 9.1 fL (7.0-11.0); Mono # (Auto) 0.8 th/mm3 (0.0-0.9); Mono % (Auto) 7.2 % (0.0-8.0); Neut # (Auto) 8.8 th/mm3 (1.8-7.7); Neut % (Auto) 79.4 % (16.0-70.0); Platelet Count 141 th/mm3 (150-450); Red Blood Count 2.52 mil/mm3 (4.50-5.90); Red Cell Distribution Width 17.1 % (11.6-17.2)
[2018-08-11 06:37] LABS: Alanine Aminotransferase 109 U/L (12-78); Albumin 2.2 g/dL (3.4-5.0); Anion Gap 10 meq/L (5-15); Aspartate Aminotransferase 130 U/L (15-37); Blood Urea Nitrogen 63 mg/dL (7-18); Calcium 7.8 mg/dL (8.5-10.1); Carbon Dioxide 24.7 meq/L (21.0-32.0); Chloride 111 meq/L (98-107); Glomerular Filtration Rate 24 mL/min (>89); Glucose,Random 154 mg/dL (74-106); Magnesium 2.1 mg/dL (1.5-2.5); Phosphorus 2.5 mg/dL (2.5-4.9); Potassium 4.3 meq/L (3.5-5.1); Sodium 146 meq/L (136-145)
[2018-08-11 07:03] LABS: Alkaline Phosphatase 279 U/L (45-117); Total Protein 6.4 g/dL (6.4-8.2); Vitamin B12 1240 pg/mL (193-986)
[2018-08-11 07:08] LABS: Eosinophils 1 % (0-4); Lymphocytes 8 % (9-44); Monocytes 6 % (0-8); Platelet Morphology Normal (Normal); Tallied Nucleated RBC 1 (0-0)
[2018-08-11] MEDS: Calcium/Vitamin D 250/125 MG Tablet PO SCH (08:07)
[2018-08-11] MEDS: Enoxaparin Inj 30 MG/0.3 ML Syringe SQ SCH (08:07)
[2018-08-11] MEDS: Methylnaltrexone Inj 12 MG/0.6 ML Vial SQ SCH (08:07)
[2018-08-11] MEDS: Sennosides Liq 8.8 MG/5 ML UDC NG/OG SCH ×2 (08:07→20:03)
[2018-08-11] MEDS: Ascorbic Acid 500 MG Tablet PO SCH (08:07)
[2018-08-11] MEDS: Polyethylene Glycol 3350 17 GM Packet PO SCH ×2 (08:07→20:02)
[2018-08-11] MEDS: QUEtiapine 25 MG Tablet PO SCH (08:07)
[2018-08-11] MEDS: Multivitamin/Minerals Therapeutic Tablet PO SCH (08:07)
[2018-08-11] MEDS ORDERED: Acetaminophen 325 MG Tablet NG/OG PRN (08:07)
[2018-08-11] MEDS: Docusate Sodium Liq 100 MG/10 ML UDC NG/OG SCH ×2 (08:07→20:02)
[2018-08-11] MEDS: Bisacodyl 10 MG Supp RECTAL SCH (08:07)
[2018-08-11] MEDS: Metoprolol Tartrate 25 MG Tablet PO SCH ×3 (08:07→17:53)
[2018-08-11] MEDS ORDERED: Sodium Chloride 0.45 % Inj 1,000 ML IV.SIG ONE (08:10)
--- NOTE | 2018-08-11 08:13 | P.PNCC ---
Subjective Subjective Remarks/Hospital Course: Mr. Curry is a 73-year-old -[place] male with past medical history significant for COPD on 3 L nasal cannula, hypertension, hyperlipidemia and anxiety who was admitted to the hospitalist service on 06/19/2018 for worsening shortness of breath due to COPD exacerbation. He was treated with IV Solu- Medrol, IV antibiotics, breathing treatments gradually improved. Patient was also complaining about dyspepsia and underwent EGD by GI yesterday. Per report the EGD was normal but patient developed worsening shortness of breath and COPD exacerbation postprocedure, possibly from aspiration after sedated. Two ABGs done yesterday showed hypercapnic respiratory failure second 1 was on BiPAP and this was improved with pH 7.3 with PCO2 of 74. Patient remained on BiPAP overnight however was noticed to be lethargic today a.m., stat ABG showed pH of 7.21 PCO2 110 PO2 88 while on BiPAP. Patient was lethargic intermittently dozing off due to CO2 narcosis. Critical care medicine was consulted and I immediately evaluated the patient. Patient had obviously failed BiPAP I proceeded with endotracheal intubation placed on mechanical ventilation. Postintubation I have ordered single dose of Solu-Medrol 125 mg x1 continue Solu -Medrol 60 every 8, discontinue ceftriaxone and start cefepime 2 g IV every 8 hours continue azithromycin. Add budesonide inhaled, placed on scheduled DuoNeb every 4 hours and as needed. 06/27: Patient was intubated yesterday for severe hypercapnic respiratory failure. Currently remains intubated sedated and intubated remains diminished bilaterally. Heavily sedated for ventilator synchrony 06/28: Urine output significantly improved with fluid resuscitation. Creat down trending now 2 from 2.3, UO >3.3 L. Remains intubated sedated. Will initiate daily sedation vacation and CPAP trials 06/29: More awake today tolerating CPAP trials intermittently follows commands but gets agitated/frustrated fast. Urine output remains excellent creatinine 1.4. However sodium increasing 158 today. Night production tech had changed fluid to D5 W for free water replacement. Due to hypoglycemia will change to quarter normal saline at 150 mL/h repeat CMP in the afternoon 06/30 Patient was extubated yesterday. Awake 07/01 Patient is lying in bed in NAD. T: 100.5 07/02: Intubated early this morning due to acute hypoxic respiratory failure. Central line placed due to hypotension. Plan for GI perform endoscopic decompression of this large bowel today. Arousable and does follow commands. Placed on argatroban 07/03: Currently, intubated with borderline blood pressure. Central line placed yesterday due to hypotension. Did not move bowels despite 1 L of fluid from colonoscopy yesterday and multiple laxatives provided. See orders for additional laxatives today. Might need neostigmine. 07/04 Patient remains intubated and sedated with Diprivan. Given Neostigmine last night. KUB this morning showed colonic ileus. Afebrile. On Argatroban. 07/05 No events overnight, sedated with Diprivan and intubated. Off Argatroban. 07/06 Patient remains intubated and sedated. Afebrile. 07/07 Patient remains intubated, s/p decompressive colonoscopy yesterday. Awake. 07/08 Patient s/p extubation yesterday. Awake and alert. 07/09 Patient is awake, alert lying in bed in NAD. Afebrile. 07/10 Patient is awake and alert, Afebrile. 07/11 Patient s/p decompressive colonoscopy yesterday. Afebrile. On Lasix drip.( UOP: 2800ml overnight). Cr: 3.0 from 2.25. 07/12 Patient is awake, alert given Neostigmine overnight. NGT to LIWS, off Lasix drip. 07/13: Resting comfortably in bed in no acute distress. 3 bowel movements documented. Remains n.p.o. Bladder pressures around 6. Potassium being replaced. Remains anemic around 7. 07/14 Patient is lying in bed in NAD. Afebrile. 07/15 No events overnight. Afebrile. 07/16: Resting in bed mild distress. Abdomen remains distended. Hemoglobin has dropped to 6.2 2 units of PRBC ordered. Patient underwent decompressive colonoscopy by Dr. Berrios for colonic ileus 07/17: No significant overnight events, patient states that he wants to get out of bed to a chair as he is having rectal discomfort. 07/18: Patient reportedly had a BM after digital rectal exam yesterday, states that he's been passing flatus "every now and then" overnight. No plans for OR or sigmoidoscopy as per colorectal service, OK to transfer out of [facility]. 07/19: Patient transferred to [facility] yesterday, complained of shortness of breath again today. An ABG showed a pCO2 of 79 so he was placed on bipap and transferred to [facility]. Most recent ABG shows pCO2 of 66, KUB still has abdominal distension but appears to be improved when compared to KUB from 07/15. Patient has reportedly been having bowel movements and passing flatus overnight. 07/20: No dramatic improvement in abdominal distention however abdomen soft. The patient was able to breathe comfortably overnight and remained alert. This morning the BiPAP mask was removed for half an hour and the patient did well without evidence of CO2 retention or somnolence. Reconsult note 07/23: The patient was a halicat from the [facility] floor. Patient was noted to be somnolent, had difficulty breathing. Stat ABG was performed revealing a PCO2 of 113. The patient was placed on BiPAP and transferred to [facility]. Currently remains on CPAP respiratory rate is 25 , 16/5 with an FiO2 35%. 07/24: Overnight the patient was placed on BiPAP 10/5 refusing BiPAP pulling out IVs. The patient became tachycardic refusing p.o. medications. The patient was placed on a Cardizem infusion currently at 5 mg an hour. Patient is more compliant at this time the patient's BiPAP settings were increased to 15 /5 35% stat ABGs were ordered the patient was noted to have a PCO2 of 89, continues with hypercapnic respiratory failure in the setting of severe COPD. Extensive discussion with family at bedside the patient's sister and daughter provided medical status update on recent transfer to ICU and current standing. Inform family that patient is at risk for for emergent intubation. Repeat ABG pending this evening. 07/25: Patient noted to have episodes of agitation continually removing BiPAP. I discussed with patient the criticality of his illness and possible intubation patient now agrees to wear BiPAP with exception of meals. Patient's diet was advanced to clear liquid noted improvement of chest x-ray patient is noted to have last bowel movement approximately 2 days ago we will continue to monitor and follow-up GI recommendations . Noted electrolyte repletion at this time. PCO2 now in the 60s. 07/26: Patient continues to be noncompliant with BiPAP mask. ABGs obtained noting a PO2 of 45.6. The patient was emergently intubated this afternoon. Chest x-ray and repeat ABG pending at this time. Noted patient's last bowel movement last night. 07/27: Afebrile. Remains on ventilator. Will start tube feeding today. BM noted overnight. Replacing potassium phosphate, calcium chloride x1 now. And magnesium sulfate 07/28: Afebrile. Did not tolerate CPAP trial the same. Tolerating tube feeds today. Last bowel movement yesterday 09/26. Mild ileus on abdominal x-ray today. 07/29: Afebrile. Tolerated CPAP times 3 hours. He is intolerant to P. 2 bowel movements. Abdominal x-ray unchanged but no signs of obstructive or ileus. 07/30: Afebrile. Currently on CPAP trials. Positive BM. No change in neurological status. Increasing metoprolol to 5 mg IV every 6 hours. 07/31: Again on CPAP trials. Awake and alert on dexmedetomidine drip. Will put on metoprolol tartrate 25 mg every 8 hours and titrate. Positive BM. Recheck KUB in a.m. 08/01. 08/01: Currently tolerating CPAP, but requiring 15 pressure support. Patient had been intubated 3 times this admission, according to the caregiver and go from had to do patient's a total of several intubation in the last 2-3 months. I discussed with the patient was agreeable for tracheostomy, I also discussed with Stephanie patient's daughter and she has given consent for tracheostomy. Plan for tracheostomy tomorrow 08/02: Patient currently on Precedex awake alert not tolerating CPAP trials. Plan for tracheostomy today. Transfuse 1 unit PRBC 1 pack units of platelets prior to trach 08/03: Patient remains calm on the vent currently tolerating pressure support 06/06. Status post tracheostomy yesterday no significant bleeding. Platelet count 103 today. 08/04: Patient placed on CPAP trials this a.m. and continues without difficulty. Precedex infusion currently at 1.5 mcgs/kg/hour. Tentative plan for PEG tube placement procedure on hold awaiting discussion with family, POA. Patient continues to have large bowel movements. 08/05: Continued copious large bowel movement. Fecal containment device / Dignashield applied. Placement of PEG tube continues to be on hold ,due to the inability to contact the POA. 08/06: Palliative care head orthopedic team physician Ms. Pittman had extensive meeting with the patient's POA tentative plan for placement of PEG tube. 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 Brown infectious disease. Patient continues to be agitated and requires Precedex infusion currently at 1.5, plan to initiate Seroquel this evening and attempts to decrease agitation, and subsequently discontinue Precedex infusion. The patient has been initiated on trach collar trials and continues greater than 6 hours. 08/07: No acute events overnight. GI consult for PEG placement. Tolerating tube feeds. 08/08: The patient tolerated T-piece for approximately 10 hours. Patient placed back on CPAP this evening. Agitation resolved with ministration of Seroquel. Patient responding to questions nodding head yes and no. 08/09: Currently on vent support, tolerates CPAP. Attempt T-piece daily, check chest x-ray today repeat labs in a.m. 08/10: T-max 100. Remains tachycardic. More lethargic today. Leaking around tracheostomy site. Increasing rate and tidal volume. Subjective 08/11: Currently afebrile. Remains tachycardic. Remains lethargic withdraws but not following commands. Negative CT and MRI of brain. EEG pending. Worsening renal failure noted. Decreased urine output. Having copious bowel movements. Objective Vital Signs / I&O: Vital Signs 08/10/18 08:31 08/10/18 09:00 08/10/18 10:00 Temperature Pulse Rate 86 95 H 94 H Respiratory Rate 18 18 18 Blood Pressure 115/72 122/58 L Pulse Oximetry 80 L 100 08/10/18 11:00 08/10/18 11:23 08/10/18 12:00 Temperature 99.5 F Pulse Rate 95 H 96 H 109 H Respiratory Rate 18 17 27 H Blood Pressure 121/65 155/77 H Pulse Oximetry 100 100 100 08/10/18 12:27 08/10/18 12:29 08/10/18 12:30 Temperature 99.5 F Pulse Rate 102 H 101 H 105 H Respiratory Rate 23 23 29 H Blood Pressure 142/78 H 142/78 H 159/76 H Pulse Oximetry 99 100 99 08/10/18 12:45 08/10/18 13:00 08/10/18 13:07 Temperature 99.0 F Pulse Rate 95 H 88 95 H Respiratory Rate 20 20 20 Blood Pressure 162/77 H 161/70 H 160/68 H Pulse Oximetry 99 99 99 08/10/18 13:15 08/10/18 13:31 08/10/18 14:00 Temperature Pulse Rate 96 H 97 H 99 H Respiratory Rate 20 21 21 Blood Pressure 152/62 H 150/92 H 131/93 H Pulse Oximetry 99 99 99 08/10/18 14:31 08/10/18 15:00 08/10/18 15:12 Temperature Pulse Rate 96 H 95 H Respiratory Rate 22 22 16 Blood Pressure 153/72 H 147/76 H Pulse Oximetry 99 99 100 08/10/18 16:00 08/10/18 16:46 08/10/18 17:00 Temperature 98.4 F Pulse Rate 98 H 102 H 97 H Respiratory Rate 24 18 18 Blood Pressure 131/69 134/71 148/64 H Pulse Oximetry 100 99 98 08/10/18 18:00 08/10/18 19:00 08/10/18 19:57 Temperature Pulse Rate 92 H 89 85 Respiratory Rate 18 18 18 Blood Pressure 113/63 127/64 Pulse Oximetry 100 99 100 08/10/18 20:00 08/10/18 20:25 08/10/18 21:00 Temperature 98.8 F Pulse Rate 84 96 H Respiratory Rate 18 18 Blood Pressure 136/65 Pulse Oximetry 99 100 100 08/10/18 22:00 08/10/18 23:00 08/10/18 23:20 Temperature Pulse Rate 88 85 88 Respiratory Rate 18 18 18 Blood Pressure Pulse Oximetry 100 100 100 08/11/18 00:00 08/11/18 01:00 08/11/18 02:00 Temperature 98.4 F Pulse Rate 95 H 93 H 95 H Respiratory Rate 18 18 20 Blood Pressure 128/72 136/68 135/68 Pulse Oximetry 100 100 100 08/11/18 02:58 08/11/18 03:00 08/11/18 03:35 Temperature Pulse Rate 93 H 93 H Respiratory Rate 20 20 20 Blood Pressure 131/67 Pulse Oximetry 100 100 08/11/18 04:00 08/11/18 06:00 08/11/18 07:28 Temperature 98.2 F Pulse Rate 99 H 96 H 100 H Respiratory Rate 19 20 Blood Pressure 121/71 Pulse Oximetry 99 100 Intake & Output 08/10/18 08/11/18 08/11/18 18:59 06:59 18:59 Intake Total 2580 / 2580 1350 / 1350 500 / 500 Output Total 1000 / 1000 1100 / 1100 Balance 1580 / 1580 250 / 250 500 / 500 Weight 78 kg Intake: IV 1100 / 1100 500 / 500 500 / 500 Alburx 5% Inj 500 ML @ 250 mls/ 500 / 500 500 / 500 hr IV.SIG Q12H WOLF Rx#:[id number] Maxipime Inj 2,000 MG In NS Inj 100 / 100 100 ML @ 200 mls/hr IV.SIG Q12H WOLF Rx#:[id number] NS Inj 1,000 ML @ Wide Open IV. 1000 / 1000 SIG BOLUS ONE Rx#:[id number] Tube Feeding 480 / 480 450 / 450 Tube Irrigant 100 / 100 Water Bolus Amount 400 / 400 400 / 400 Other 100 / 100 Rbc As-3 Leukoreduced Unit 100 / 100 [id number] Intake (Blood Product) Amt 400 / 400 Rbc As-3 Leukoreduced Unit 400 / 400 [id number] Output: Urine 0 / 0 Stool 850 / 850 1100 / 1100 Urine Amount (Catheter) 150 / 150 Straight 150 / 150 Other: Other Intake Source Rbc As-3 Leukoreduced Unit Saline Solution [id number] Date of Last Bowel Movement 08/10/18 08/11/18 Result Diagrams: 08/11/18 06:11 08/11/18 06:11 Other Results: Microbiology 08/03/18 14:30 Blood - Peripheral Aerobic Blood Culture - Final No growth in 5 days 08/03/18 14:30 Blood - Peripheral Anaerobic Blood Culture - Final Staphylococcus epidermidis 08/03/18 14:56 Blood - Peripheral Aerobic Blood Culture - Final Staphylococcus coag negative 08/03/18 14:56 Blood - Peripheral Anaerobic Blood Culture - Final Staphylococcus epidermidis 08/02/18 09:30 Catheterized Urine Urine Culture - Final Enterococcus faecalis Klebsiella pneumoniae 07/28/18 06:00 Catheterized Urine Urine Culture - Final Koki albicans 07/11/18 13:50 Blood - Peripheral Aerobic Blood Culture - Final No growth in 5 days 07/11/18 13:50 Blood - Peripheral Anaerobic Blood Culture - Final No growth in 5 days 07/11/18 02:48 Blood - Peripheral Aerobic Blood Culture - Final No growth in 5 days 07/11/18 02:48 Blood - Peripheral Anaerobic Blood Culture - Final No growth in 5 days 07/11/18 16:50 Clean Catch Urine Urine Culture - Final No growth in 48 hours 07/09/18 00:30 Stool Cryptosporidium Antigen - Final Negative - No Cryptosporicium antigen detected In selected cases of patients with a history of immunosuppression or foreign travel, a full ova and parasites examination may be desired. Contact the microbiology lab if full workup is indicated and subit another specimen for testing. 07/09/18 00:30 Stool Giardia Antigen (GERONIMO) - Final Negative - No Giardia Antigen detected In selected cases of patients with a history of immunosuppression or foreign travel, a full ova and parasites examination may be desired. Contact the microbiology lab if full workup is indicated and subit another specimen for testing. 07/02/18 05:41 Blood - Peripheral Aerobic Blood Culture - Final No growth in 5 days 07/02/18 05:41 Blood - Peripheral Anaerobic Blood Culture - Final No growth in 5 days 07/02/18 05:47 Blood - Peripheral Aerobic Blood Culture - Final No growth in 5 days 07/02/18 05:47 Blood - Peripheral Anaerobic Blood Culture - Final No growth in 5 days 07/02/18 22:00 Sputum - Endotracheal Gram Stain - Final 07/02/18 22:00 Sputum - Endotracheal Sputum Culture - Final Heavy growth normal respiratory justyn 06/26/18 10:10 Sputum - Endotracheal Gram Stain - Final 06/26/18 10:10 Sputum - Endotracheal Sputum Culture - Final Light growth normal respiratory justyn Imaging: Chest X-Ray 06/19/18 20:38 CONCLUSION: No evidence of acute cardiopulmonary disease. Abdomen Ultrasound 06/21/18 00:00 CONCLUSION: 1. No ascites is identified within the abdomen. Abdomen X-Ray 06/21/18 00:00 CONCLUSION: No acute findings. Mild constipation. Chest X-Ray 06/23/18 00:00 CONCLUSION: 1. No acute abnormality or significant interval change. Abdomen/Pelvis CT 06/24/18 00:00 CONCLUSION: 1. Benign appearing right adrenal mass. 2. No acute CT findings in the abdomen or pelvis. Chest X-Ray 06/25/18 00:00 CONCLUSION: Suspected mild atelectasis or consolidation at the medial right base. Chest X-Ray 06/26/18 00:00 CONCLUSION: 1. Endotracheal tube is appropriately positioned above the christy. 2. Nasogastric tube traverses the GE junction and is curled in the gastric lumen. 3. Lungs are clear. Abdomen X-Ray 06/26/18 09:21 CONCLUSION: 1. Nonobstructive bowel gas pattern without pneumoperitoneum. 2. Nasogastric tube is curled in the expected location of the gastric body. I believe the portions of the tube identified over the heart shadow is probably projectional as there is no evidence of a significant hiatal hernia on the most recent CT of the abdomen. Chest X-Ray 06/26/18 15:37 CONCLUSION: 1. Lungs remain clear. 2. Interval placement of a right IJ central venous catheter with the tip projecting over the central venous system. No pneumothorax. 3. Endotracheal and nasogastric tubes remain appropriately positioned. Abdomen/Bladder Ultrasound 06/28/18 00:00 CONCLUSION: 1. Echogenic kidneys characteristic of medical renal disease. No hydronephrosis. Bladder decompressed by Moreno Chest X-Ray 06/28/18 06:00 CONCLUSION: The lungs are clear. Lines and tubes stable. Chest X-Ray 06/29/18 06:00 CONCLUSION: The lungs are clear. Lines and tubes stable. Venous Doppler Study 07/01/18 00:00 CONCLUSION: 1. The study is negative for bilateral lower extremity deep venous thrombosis. Chest X-Ray 07/01/18 20:41 CONCLUSION: Negative examination. Chest CTA 07/02/18 00:00 CONCLUSION: 1. No pulmonary embolus. 2. Diffuse but basilar predominant bilateral airspace disease. 3. Endotracheal and endobronchial secretions are demonstrated. 4. Moderate emphysema. 5. Left ventricular hypertrophy. Venous Doppler Study 07/02/18 00:00 CONCLUSION: 1. Limited, no evidence for thrombosis. Chest X-Ray 07/02/18 04:04 CONCLUSION: 1. Interim intubation and nasogastric tube placement as above. 2. Mild bibasilar atelectasis has developed. Abdomen/Pelvis CT 07/02/18 04:20 CONCLUSION: Colonic distention most likely representing moderate adynamic ileus. However, distal sigmoid colon is decompressed and a sigmoid stricture is conceivable but considered less likely. Apparent mild proctitis. Clinical surveillance and follow-up CT recommended. Chest X-Ray 07/02/18 14:46 CONCLUSION: Left IJ line in good position. There is no pneumothorax. Abdomen X-Ray 07/04/18 00:01 CONCLUSION: Findings of colonic ileus Chest X-Ray 07/04/18 06:00 CONCLUSION: Cardiomegaly and findings of vascular congestion without overt failure. There has been no significant change when compared to the prior exam. Abdomen X-Ray 07/05/18 07:08 CONCLUSION: No significant interval change with persistent diffuse air-filled distention of the colon suggesting ileus. Chest X-Ray 07/07/18 07:12 CONCLUSION: Minimal bibasilar densities likely atelectasis. Abdomen X-Ray 07/07/18 07:13 CONCLUSION: Gaseous distention of multiple bowel loops has improved since previous study. Abdomen X-Ray 07/09/18 07:14 CONCLUSION: 1. Apparent interval removal of NGT. 2. Improving bowel gas pattern consistent with improving adynamic ileus. Abdomen/Pelvis CT 07/10/18 08:31 CONCLUSION: 1. There is gas and fluid distending the colon. The patient has a rectal tube in place however the rectal tube is kinked back on itself and occluded. The overall size of the colon has mildly increased when compared to previous exam. The small bowel is normal in caliber. 2. Interval development of a small left basilar effusion and atelectasis. Chest X-Ray 07/10/18 08:42 CONCLUSION: Mild patchy bilateral lung base opacity likely representing atelectasis unchanged. Small left pleural effusion now seen. Abdomen X-Ray 07/11/18 00:00 CONCLUSION: 1. Questionable NGT at the GE junction, as above. 2. Moderately improved colonic distention. Abdomen X-Ray 07/12/18 00:00 CONCLUSION: Probable generalized ileus. No abrupt caliber changes are seen. No free air. Nasogastric tube tip is in the upper stomach. No gastric distention seen. Abdomen X-Ray 07/14/18 06:00 CONCLUSION: Distended air-filled colon. Ileus is the most likely etiology for this pattern. Abdomen X-Ray 07/15/18 00:00 CONCLUSION: Persistent air-filled loops of small and large bowel suggesting probably ileus. Clinical correlation is recommended. Venous Doppler Study 07/15/18 00:00 CONCLUSION: 1. Limited suboptimal examination. 2. Nonocclusive thrombus in the jugular vein. Chest X-Ray 07/16/18 10:00 CONCLUSION: Mild bibasilar consolidations, presumably atelectasis is unchanged. Abdomen X-Ray 07/19/18 14:09 CONCLUSION: Negative examination. Chest X-Ray 07/19/18 14:10 CONCLUSION: 1. No acute cardiopulmonary disease. 2. Mild degenerative changes and scoliosis of the thoracic spine. Chest X-Ray 07/23/18 00:00 CONCLUSION: Negative examination. Chest X-Ray 07/24/18 00:00 CONCLUSION: Mild bibasilar consolidation. Chest X-Ray 07/25/18 04:00 CONCLUSION: Previous basilar opacity has resolved. No new infiltrate or effusion. Abdomen X-Ray 07/26/18 00:00 CONCLUSION: Orogastric tube tip is in the distal stomach or proximal duodenum. Chest X-Ray 07/26/18 17:00 CONCLUSION: 1. ETT in good position. 2. No acute abnormality. Chest X-Ray 07/27/18 04:00 CONCLUSION: Endotracheal tube and nasogastric tube in good position. Minimal dependent atelectasis in the lungs. Abdomen X-Ray 07/28/18 00:01 CONCLUSION: Mild ileus. No evidence for obstruction or free air. Chest X-Ray 07/28/18 06:00 CONCLUSION: Mild basilar atelectasis. No effusion or pneumothorax. Abdomen X-Ray 07/29/18 00:01 CONCLUSION: NG tip in duodenum. No acute findings. Chest X-Ray 07/29/18 06:00 CONCLUSION: Endotracheal tube and nasogastric tube unchanged. Stable to slight increase in basilar airspace disease since July 28. Chest X-Ray 07/30/18 06:00 CONCLUSION: Stable exam compared with July 22, 2017 with support apparatus in good position. Abdomen X-Ray 07/30/18 15:07 CONCLUSION: Benign-appearing KUB. Chest X-Ray 07/31/18 06:00 CONCLUSION: Increase in basilar airspace disease since July 30. Support apparatus unchanged. Chest X-Ray 08/01/18 06:00 CONCLUSION: Mild improvement in the bibasilar airspace opacity. Abdomen X-Ray 08/01/18 09:59 CONCLUSION: NG tube in place. Mild gaseous distention of portions of colon. Chest X-Ray 08/02/18 06:00 CONCLUSION: Stable chest x-ray with mild bibasilar opacity representing either atelectasis or consolidation. Chest X-Ray 08/03/18 06:00 CONCLUSION: Stable bibasilar airspace opacity representing either atelectasis or airspace consolidation. There is also a questionable hazy opacity at the right base which could indicate a small pleural effusion. Chest X-Ray 08/09/18 00:00 CONCLUSION: No significant change. Head MRI 08/10/18 00:00 CONCLUSION: No acute intracranial abnormality is identified. Abdomen/Bladder Ultrasound 08/10/18 08:23 CONCLUSION: 1. Normal sonographic evaluation of the kidneys. 2. No evidence of hydronephrosis. 3. Decompressed bladder. Head CT 08/10/18 15:53 CONCLUSION: Stable noncontrast head CT. No acute intracranial abnormality is identified. . Chest X-Ray 08/11/18 06:00 CONCLUSION: Decrease in bilateral pulmonary opacity indicating decreased pulmonary edema or infection. Objective Remarks: GENERAL: 73-year-old chronically ill appearing elderly -[place] male lying in bed, awake , calm [facility] SKIN: Warm and dry HEAD: Normocephalic. EYES: PERRL NECK: Supple, trachea midline. New tracheostomy with minimal dry blood around the site CARDIOVASCULAR: RRR. S1, S2. No S4. No murmur RESPIRATORY: Diminished breath sounds in bases noted. B/L equal air entry, patient. tolerating trach collar trials GASTROINTESTINAL: Abdomen l remains distended, non-tender, no guarding, hypoactive bowel sounds present. Ceci shield in place MUSCULOSKELETAL: Trace 1+ bilateral upper/ lower extremity edema, warm and well- perfused NEURO: Arousable with open eyes. Withdraws to pain all 4 extremities. Currently not following commands. Assessment and Plan - Assessment and Plan Plan: NEURO/Psych: Altered mental status due to CO2 retention/toxic metabolic encephalopathy -Discontinued dexmedetomidine 08/03 -F/U acetylcholine receptor and autoantibodies was negative -Currently on quetiapine 25 mg twice daily at night Holding duloxetine 20 mg daily/home medication Acetaminophen 650 by tube every 6 hours as needed fever Oxycodone/acetaminophen 5/325 1 tablet every 4 hours as needed pain CT brain 08/10 revealed no acute intracranial findings. MRI brain 08/10 revealed no acute intracranial findings EEG ordered for today. RESP: Hypercapnic respiratory failure Acute COPD exacerbation -Extubated 06/29. Reintubated 07/02 extubated again 07/07, reintubated 07/26 -Status post tracheostomy 08/02/2018. CPAP trial with T-piece 8-12 hours as tolerated -Albuterol/ipratropium aerosols every 4 hours scheduled and albuterol aerosols every 2 hours as needed -Continue budesonide twice daily CV: Essential hypertension - Monitor HR and BP keep MAP>65mmHg -Metoprolol tartrate 25 mg by tube every 8 hours GI: Colonic ileus Elevated transaminases -negative hepatitis panel Elevated ammonia Hypoalbuminemia with moderate protein calorie malnutrition -KUB 07/13: Stable nonobstructive colonic distention. -Given Neostigmine 07/11. -s/p repeat decompressive colonoscopy 07/10 and 07/15 -Continue pantoprazole -On docusate sodium 100 cc twice daily/senna 8.6 mg tablet twice daily, lactulose 30 cc 2 times daily, polyethylene glycol 17 g twice daily. Stable discontinue methylnaltrexone e 12 mg subcu daily -NG tube. 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 Currently on Glucerna 1.5 goal 45 cc an hour Family agreeable to PEG tube placement. Will check KUB today and consult GI FEN//renal: Acute renal injury -Monitor renal function, I/O's, avoid nephrotoxins -Renal function stable -Renal- Dr. Figueroa has followed. Will reconsult today 08/11 -Repletion of electrolytes per protocol -Free water 200 cc every 6 hours -08/05 C. difficile PCR-negative Recheck urine eosinophils, sodium, creatinine and renal ultrasound revealed negative urine eosinophils. Negative ultrasound for hydronephrosis. Starting on bumetanide drip at 0.25 mg an hour now. Recheck BMP at 1800 hrs. ID: Staph epi bacteremia Enterococcus/Klebsiella pneumonia -Off abx monitor for signs of infections (Fever, WBC) WBC stable -BC and urine cx from 07/11- NG -07/02 BC: NGTS, sputum cx 07/02:normal resp justyn -ID is following- Dr. Brown PRN -Urine culture from 07/28/2018 growing Koki. Repeat cultures sent 08/02/2018 after replacing Moreno 08/10 vancomycin, cefepime times 8 days total per infectious disease recommendation - discontinued 08/10. Repeat blood cultures, UA 08/10 pending HEME Normocytic anemia Thrombocytopenia -Monitor CBC, coags, Hep PLT is positive. ANNMARIE negative. Hematology is following. Off argatroban drip -s/p 2U PRBCs on 07/16, Hgb 8.8, used for hemoglobin less than 7 -Give 1 unit of PRBC and 1 pack units of platelets today in anticipation of tracheostomy -Stable thrombocytopenia-avoid medications that precipitate thrombocytopenia ENDO: -Sliding scale insulin medium scale aspart insulin every 4 hours. Continue insulin detemir 10 units twice daily TSH 1.26 PROPH: -Bilateral lower extremity SCDs. PPI -Doppler US LE negative DVT 07/02 -Continue enoxaparin 30 mg daily LINES: -Utilize peripheral IVs Level 3 follow-up
--- NOTE | 2018-08-11 09:11 | XR ---
EXAM DATE: 08/11/2018 9:02 AM EST AGE/SEX: 73 years / Male INDICATIONS: Abdominal distention. Evaluate for ileus. CLINICAL DATA: This is the patient's initial encounter. Patient reports that signs and symptoms have been present for 1 day and indicates a pain score of Nonresponsive. MEDICAL/SURGICAL HISTORY: . Chronic obstructive pulmonary disease. Hypertension. Anxiety. Asthm a. Chronic back pain. None. COMPARISON: [facility] – [place], ABDOMEN SINGLE [facility]IEW, 08/01/2018. . FINDINGS: 2 AP supine views of the abdomen were obtained and again demonstrate nasogastric tube in place. Ther e is a relative paucity of bowel gas with no distention identified. There is no free air or mass effe ct. The lung bases remain clear. The bony structures are intact. CONCLUSION: Relative paucity of bowel gas with is a gastric tube remain in place. There is no distended bowel loo ps identified. Electronically signed by: Klever Bennett MD 08/11/2018 9:10 AM EST
[2018-08-11] MEDS: Insulin Detemir Inj 1,000 UNIT/10 ML Vial SQ SCH ×2 (09:22→20:02)
[2018-08-11] MEDS: Bumetanide Inj 25 MG/100 ML BAG IV.CONT SCH (10:16)
[2018-08-11] MEDS ORDERED: levETIRAcetam 1000mg/100mL Inj 100 ML IV.SIG ONE (11:00)
--- NOTE | 2018-08-11 11:26 | P.PNGI ---
Subjective Interval history: Patient trached and ventilated EEG at bedside Patient having seizure activity presently Dr. Hugo and bedside RN present Physical Exam Vital signs: Vital Signs 08/10/18 11:23 08/10/18 12:00 08/10/18 12:27 Temperature 99.5 F Pulse Rate 96 H 109 H 102 H Respiratory Rate 17 27 H 23 Blood Pressure 155/77 H 142/78 H Pulse Oximetry 100 100 99 08/10/18 12:29 08/10/18 12:30 08/10/18 12:45 Temperature 99.5 F 99.0 F Pulse Rate 101 H 105 H 95 H Respiratory Rate 23 29 H 20 Blood Pressure 142/78 H 159/76 H 162/77 H Pulse Oximetry 100 99 99 08/10/18 13:00 08/10/18 13:07 08/10/18 13:15 Temperature Pulse Rate 88 95 H 96 H Respiratory Rate 20 20 20 Blood Pressure 161/70 H 160/68 H 152/62 H Pulse Oximetry 99 99 99 08/10/18 13:31 08/10/18 14:00 08/10/18 14:31 Temperature Pulse Rate 97 H 99 H 96 H Respiratory Rate 21 21 22 Blood Pressure 150/92 H 131/93 H 153/72 H Pulse Oximetry 99 99 99 08/10/18 15:00 08/10/18 15:12 08/10/18 16:00 Temperature 98.4 F Pulse Rate 95 H 98 H Respiratory Rate 22 16 24 Blood Pressure 147/76 H 131/69 Pulse Oximetry 99 100 100 08/10/18 16:46 08/10/18 17:00 08/10/18 18:00 Temperature Pulse Rate 102 H 97 H 92 H Respiratory Rate 18 18 18 Blood Pressure 134/71 148/64 H 113/63 Pulse Oximetry 99 98 100 08/10/18 19:00 08/10/18 19:57 08/10/18 20:00 Temperature 98.8 F Pulse Rate 89 85 84 Respiratory Rate 18 18 18 Blood Pressure 127/64 136/65 Pulse Oximetry 99 100 99 08/10/18 20:25 08/10/18 21:00 08/10/18 22:00 Temperature Pulse Rate 96 H 88 Respiratory Rate 18 18 Blood Pressure Pulse Oximetry 100 100 100 08/10/18 23:00 08/10/18 23:20 08/11/18 00:00 Temperature 98.4 F Pulse Rate 85 88 95 H Respiratory Rate 18 18 18 Blood Pressure 128/72 Pulse Oximetry 100 100 100 08/11/18 01:00 08/11/18 02:00 08/11/18 02:58 Temperature Pulse Rate 93 H 95 H 93 H Respiratory Rate 18 20 20 Blood Pressure 136/68 135/68 Pulse Oximetry 100 100 08/11/18 03:00 08/11/18 03:35 08/11/18 04:00 Temperature 98.2 F Pulse Rate 93 H 99 H Respiratory Rate 20 20 19 Blood Pressure 131/67 121/71 Pulse Oximetry 100 100 99 08/11/18 06:00 08/11/18 07:28 08/11/18 08:00 Temperature 99.1 F Pulse Rate 96 H 100 H 112 H Respiratory Rate 20 18 Blood Pressure 137/73 Pulse Oximetry 100 100 08/11/18 09:28 08/11/18 10:00 08/11/18 10:05 Temperature Pulse Rate 105 H Respiratory Rate 25 H 27 H Blood Pressure Pulse Oximetry 100 99 08/11/18 10:43 08/11/18 10:58 Temperature Pulse Rate 104 H Respiratory Rate 20 Blood Pressure Pulse Oximetry 98 Intake & Output 08/10/18 08/11/18 08/11/18 18:59 06:59 18:59 Intake Total 2580 / 2580 1350 / 1350 1600 / 1600 Output Total 1000 / 1000 1100 / 1100 Balance 1580 / 1580 250 / 250 1600 / 1600 Weight 78 kg Intake: IV 1100 / 1100 500 / 500 1600 / 1600 Alburx 5% Inj 500 ML @ 250 mls/ 500 / 500 500 / 500 hr IV.SIG Q12H WOLF Rx#:[id number] Maxipime Inj 2,000 MG In NS Inj 100 / 100 100 ML @ 200 mls/hr IV.SIG Q12H WOLF Rx#:[id number] NS Inj 1,000 ML @ Wide Open IV. 1000 / 1000 SIG BOLUS ONE Rx#:[id number] 1/2 Normal Saline Inj 1,000 ML 1000 / 1000 @ Wide Open IV.SIG BOLUS ONE Rx #:[id number] Keppra 1000 mg/100 mL Premix 100 / 100 100 ML @ 400 mls/hr IV.SIG ONCE ONE Rx#:[id number] Tube Feeding 480 / 480 450 / 450 Tube Irrigant 100 / 100 Water Bolus Amount 400 / 400 400 / 400 Other 100 / 100 Rbc As-3 Leukoreduced Unit 100 / 100 [id number] Intake (Blood Product) Amt 400 / 400 Rbc As-3 Leukoreduced Unit 400 / 400 [id number] Output: Urine 0 / 0 Stool 850 / 850 1100 / 1100 Urine Amount (Catheter) 150 / 150 Straight 150 / 150 Other: Other Intake Source Rbc As-3 Leukoreduced Unit Saline Solution [id number] Date of Last Bowel Movement 08/10/18 08/11/18 08/11/18 - Constitutional chronically ill appearing - Routine HEENT Exam Head: Present: normocephalic - Routine Respiratory Exam Present: patient mechanically ventilated - Routine Cardiovascular Exam Present: RRR - Routine Abdominal Exam Present: normoactive bowel sounds, distended, firm. Absent: tenderness, guarding - Routine Extremities Exam Absent: edema - Routine Skin Exam Present: dry, warm - Urinary Catheter Management Indwelling Urethral Catheter Cath placed during this visit: yes, but has since been removed by the nurse Reason for continuing: Acute urinary retention Insertion date: 07/14/18 Insertion time: 21:55 Removal date: 08/02/18 Removal time: 07:59 Straight Cath placed during this visit: yes Reason for continuing: Acute urinary retention Insertion date: 08/11/18 Insertion time: 10:48 Condom Cath placed during this visit: no Indwelling Temp Sensing Catheter Cath placed during this visit: yes, but has since been removed by the nurse Reason for continuing: Decision to DC catheter Insertion date: 08/02/18 Insertion time: 08:00 Removal date: 08/09/18 Removal time: 18:30 Results - Labs CBC & Chem 7: 08/11/18 06:11 08/11/18 06:11 Laboratory Results - last 24 hr 08/10/18 08/10/18 08/10/18 10:51 15:25 19:40 WBC RBC Hgb Hct MCV MCH MCHC RDW Plt Count MPV Prelim Diff (Auto) Neut % (Auto) Lymph % (Auto) Lane % (Auto) Eos % (Auto) Baso % (Auto) Neut # (Auto) Lymph # (Auto) Lane # (Auto) Eos # (Auto) Baso # (Auto) WBC Differential Seg Neuts % (Manual) Band Neuts % (Manual) Lymphocytes % (Manual) Monocytes % (Manual) Eosinophils % (Manual) Abs Neuts (Manual) Nucleated RBCs/100 WBC Differential Comment Platelet Estimate Platelet Morphology Sodium Potassium Chloride Carbon Dioxide Anion Gap BUN Creatinine Estimated GFR POC Glucose 159 H 141 H Random Glucose Calcium Phosphorus Magnesium Total Bilirubin AST ALT Alkaline Phosphatase Ammonia Total Protein Albumin Vitamin B12 TSH Blood Type O Positive Antibody Screen Negative MTS Gel Crossmatch See Detail 08/11/18 08/11/18 08/11/18 00:01 04:02 06:11 WBC 11.0 RBC 2.52 L Hgb 7.6 L Hct 23.3 L MCV 92.5 MCH 30.1 MCHC 32.5 RDW 17.1 Plt Count 141 L MPV 9.1 Prelim Diff (Auto) Slide review pending Neut % (Auto) 79.4 H Lymph % (Auto) 12.5 Lane % (Auto) 7.2 Eos % (Auto) 0.7 Baso % (Auto) 0.2 Neut # (Auto) 8.8 H Lymph # (Auto) 1.4 Lane # (Auto) 0.8 Eos # (Auto) 0.1 Baso # (Auto) 0.0 WBC Differential Manual diff final Seg Neuts % (Manual) 78 H Band Neuts % (Manual) 7 H Lymphocytes % (Manual) 8 L Monocytes % (Manual) 6 Eosinophils % (Manual) 1 Abs Neuts (Manual) 9.4 H Nucleated RBCs/100 WBC 1 H Differential Comment . Platelet Estimate Low L Platelet Morphology Normal Sodium Potassium Chloride Carbon Dioxide Anion Gap BUN Creatinine Estimated GFR POC Glucose 124 H 145 H Random Glucose Calcium Phosphorus Magnesium Total Bilirubin AST ALT Alkaline Phosphatase Ammonia Total Protein Albumin Vitamin B12 TSH Blood Type Antibody Screen MTS Gel Crossmatch 08/11/18 08/11/18 08/11/18 06:11 06:11 08:01 WBC RBC Hgb Hct MCV MCH MCHC RDW Plt Count MPV Prelim Diff (Auto) Neut % (Auto) Lymph % (Auto) Lane % (Auto) Eos % (Auto) Baso % (Auto) Neut # (Auto) Lymph # (Auto) Lane # (Auto) Eos # (Auto) Baso # (Auto) WBC Differential Seg Neuts % (Manual) Band Neuts % (Manual) Lymphocytes % (Manual) Monocytes % (Manual) Eosinophils % (Manual) Abs Neuts (Manual) Nucleated RBCs/100 WBC Differential Comment Platelet Estimate Platelet Morphology Sodium 146 H Potassium 4.3 Chloride 111 H Carbon Dioxide 24.7 Anion Gap 10 BUN 63 H Creatinine 3.08 H Estimated GFR 24 L POC Glucose 177 H Random Glucose 154 H Calcium 7.8 L Phosphorus 2.5 Magnesium 2.1 Total Bilirubin 0.5 AST 130 H ALT 109 H Alkaline Phosphatase 279 H Ammonia 43 H Total Protein 6.4 Albumin 2.2 L Vitamin B12 1240 H TSH 1.260 Blood Type Antibody Screen MTS Gel Crossmatch Microbiology 08/10/18 10:30 Blood - Peripheral Aerobic Blood Culture - Preliminary No growth in 1 day 08/10/18 10:30 Blood - Peripheral Anaerobic Blood Culture - Preliminary No growth in 1 day 08/10/18 10:51 Blood - Peripheral Aerobic Blood Culture - Preliminary No growth in 1 day 08/10/18 10:51 Blood - Peripheral Anaerobic Blood Culture - Preliminary No growth in 1 day - Imaging Impressions Head MRI 08/10/18 00:00 CONCLUSION: No acute intracranial abnormality is identified. Head CT 08/10/18 15:53 CONCLUSION: Stable noncontrast head CT. No acute intracranial abnormality is identified. . Abdomen X-Ray 08/11/18 00:00 CONCLUSION: Relative paucity of bowel gas with is a gastric tube remain in place. There is no distended bowel loops identified. Chest X-Ray 08/11/18 06:00 CONCLUSION: Decrease in bilateral pulmonary opacity indicating decreased pulmonary edema or infection. - Procedures 06/26/18endotracheal intubation by critical care Dr. Ahn 06/26/18ultrasound-guided right IJ central line by critical care Dr. Ahn 07/02/18endotracheal intubation by critical care Dr. Ahn 07/06/18colonoscopy by : Stool in cecum, large amount of water flush, stool suctioned. Marked decompression. Rectal tube left in place. Internal hemorrhoids. 07/10/18colonoscopy by Dr. Keith: Ischemic ulcer cecum. Some semisolid stool suctioned. Marked decompression. Rectal ulcer from rectal tube. Hemorrhoids internal grade 2. 07/15/18decompressive colonoscopy by Dr. Berrios Assessment and Plan - Plan 07/16/2018 patient is resting in the bed a little more alert than before. Appreciate Dr. Berrios input and plan for rigid proctoscope to bedside may avoid surgery if at all possible. NG tube continues to low intermittent suction, abdomen appears mildly distended possible less over the past 24 hours, no appetite no nausea no vomiting 08/05/2018 Post tracheostomy on 08/02/2018. Patient currently tolerating breathing trials. EGD with PEG on hold at this time pending consent from healthcare surrogate decision-maker. NG tube feedings resumed. 08/11/2018 -Patient trached and mechanically ventilated FiO2 35% -GI has been reconsulted to evaluate patient for PEG tube placement -NG with Glucerna 1.5 at 45 mL's per hour -WBC 11.0 hemoglobin 7.6 hematocrit 23.3, 08/02/2018 INR 1.0 Plan -Tube feedings today -N.p.o. after midnight -Obtain consent for EGD with PEG placement -PEG tube feedings as per dietary recommendation -Supportive care -Bowel regimen -Hold a.m. Lovenox dose -Ancef 1 g IV on-call -Further recommendations to follow Patient was seen per myself and Dr. Nicholas this note was written on his behalf - Attending Attestation yan
--- NOTE | 2018-08-11 13:35 | P.PNID ---
Subjective Remarks: pt is seizing MR and CT head negative EEG with generalyzed seizeres worsenig renal fnx cefepime was stopped dw Dr Jaffe and RN Antibiotics: cefepime vancomycin Allergies/Adverse Reactions: Allergies shellfish derived Allergy (Severe, Verified 10/10/17 13:48) Anaphylaxis Objective Vital Signs 08/10/18 13:31 08/10/18 14:00 08/10/18 14:31 Temperature Pulse Rate 97 H 99 H 96 H Respiratory Rate 21 21 22 Blood Pressure 150/92 H 131/93 H 153/72 H Pulse Oximetry 99 99 99 08/10/18 15:00 08/10/18 15:12 08/10/18 16:00 Temperature 98.4 F Pulse Rate 95 H 98 H Respiratory Rate 22 16 24 Blood Pressure 147/76 H 131/69 Pulse Oximetry 99 100 100 08/10/18 16:46 08/10/18 17:00 08/10/18 18:00 Temperature Pulse Rate 102 H 97 H 92 H Respiratory Rate 18 18 18 Blood Pressure 134/71 148/64 H 113/63 Pulse Oximetry 99 98 100 08/10/18 19:00 08/10/18 19:57 08/10/18 20:00 Temperature 98.8 F Pulse Rate 89 85 84 Respiratory Rate 18 18 18 Blood Pressure 127/64 136/65 Pulse Oximetry 99 100 99 08/10/18 20:25 08/10/18 21:00 08/10/18 22:00 Temperature Pulse Rate 96 H 88 Respiratory Rate 18 18 Blood Pressure Pulse Oximetry 100 100 100 08/10/18 23:00 08/10/18 23:20 08/11/18 00:00 Temperature 98.4 F Pulse Rate 85 88 95 H Respiratory Rate 18 18 18 Blood Pressure 128/72 Pulse Oximetry 100 100 100 08/11/18 01:00 08/11/18 02:00 08/11/18 02:58 Temperature Pulse Rate 93 H 95 H 93 H Respiratory Rate 18 20 20 Blood Pressure 136/68 135/68 Pulse Oximetry 100 100 08/11/18 03:00 08/11/18 03:35 08/11/18 04:00 Temperature 98.2 F Pulse Rate 93 H 99 H Respiratory Rate 20 20 19 Blood Pressure 131/67 121/71 Pulse Oximetry 100 100 99 08/11/18 06:00 08/11/18 07:28 08/11/18 08:00 Temperature 99.1 F Pulse Rate 96 H 100 H 112 H Respiratory Rate 20 18 Blood Pressure 137/73 Pulse Oximetry 100 100 08/11/18 09:28 08/11/18 10:00 08/11/18 10:05 Temperature Pulse Rate 105 H Respiratory Rate 25 H 27 H Blood Pressure Pulse Oximetry 100 99 08/11/18 10:43 08/11/18 10:58 08/11/18 12:00 Temperature 98.7 F Pulse Rate 104 H 104 H Respiratory Rate 20 23 Blood Pressure 153/78 H Pulse Oximetry 98 99 08/11/18 13:01 Temperature Pulse Rate Respiratory Rate 21 Blood Pressure Pulse Oximetry 99 Intake & Output 08/10/18 08/11/18 08/11/18 18:59 06:59 18:59 Intake Total 2580 / 2580 1350 / 1350 1600 / 1600 Output Total 1000 / 1000 1100 / 1100 Balance 1580 / 1580 250 / 250 1600 / 1600 Weight 78 kg Intake: IV 1100 / 1100 500 / 500 1600 / 1600 Alburx 5% Inj 500 ML @ 250 mls/ 500 / 500 500 / 500 hr IV.SIG Q12H WOLF Rx#:[id number] Maxipime Inj 2,000 MG In NS Inj 100 / 100 100 ML @ 200 mls/hr IV.SIG Q12H WOLF Rx#:[id number] NS Inj 1,000 ML @ Wide Open IV. 1000 / 1000 SIG BOLUS ONE Rx#:[id number] 1/2 Normal Saline Inj 1,000 ML 1000 / 1000 @ Wide Open IV.SIG BOLUS ONE Rx #:[id number] Keppra 1000 mg/100 mL Premix 100 / 100 100 ML @ 400 mls/hr IV.SIG ONCE ONE Rx#:[id number] Tube Feeding 480 / 480 450 / 450 Tube Irrigant 100 / 100 Water Bolus Amount 400 / 400 400 / 400 Other 100 / 100 Rbc As-3 Leukoreduced Unit 100 / 100 [id number] Intake (Blood Product) Amt 400 / 400 Rbc As-3 Leukoreduced Unit 400 / 400 [id number] Output: Urine 0 / 0 Stool 850 / 850 1100 / 1100 Urine Amount (Catheter) 150 / 150 Straight 150 / 150 Other: Other Intake Source Rbc As-3 Leukoreduced Unit Saline Solution [id number] Date of Last Bowel Movement 08/10/18 08/11/18 08/11/18 08/10/18 10:30 Blood - Peripheral Aerobic Blood Culture - Preliminary No growth in 1 day 08/10/18 10:30 Blood - Peripheral Anaerobic Blood Culture - Preliminary No growth in 1 day 08/10/18 10:51 Blood - Peripheral Aerobic Blood Culture - Preliminary No growth in 1 day 08/10/18 10:51 Blood - Peripheral Anaerobic Blood Culture - Preliminary No growth in 1 day 08/10/18 08:45 Clean Catch Urine Urine Culture - Pending 08/03/18 14:30 Blood - Peripheral Aerobic Blood Culture - Final No growth in 5 days 08/03/18 14:30 Blood - Peripheral Anaerobic Blood Culture - Final Staphylococcus epidermidis Lab - Hematology Results 08/10/18 08/11/18 04:18 06:11 WBC 12.6 H 11.0 RBC 2.30 L 2.52 L Hgb 7.0 L 7.6 L Hct 22.0 L 23.3 L MCV 95.7 92.5 MCH 30.2 30.1 MCHC 31.6 L 32.5 RDW 17.2 17.1 Plt Count 160 141 L MPV 9.3 9.1 Prelim Diff (Auto) Slide review pending Neut % (Auto) 79.4 H Lymph % (Auto) 12.5 [place] % (Auto) 7.2 Eos % (Auto) 0.7 Baso % (Auto) 0.2 Neut # (Auto) 8.8 H Lymph # (Auto) 1.4 [place] # (Auto) 0.8 Eos # (Auto) 0.1 Baso # (Auto) 0.0 WBC Differential Manual diff final Seg Neuts % (Manual) 78 H Band Neuts % (Manual) 7 H Lymphocytes % (Manual) 8 L Monocytes % (Manual) 6 Eosinophils % (Manual) 1 Abs Neuts (Manual) 9.4 H Nucleated RBCs/100 WBC 1 H Differential Comment . Platelet Estimate Low L Platelet Morphology Normal Lab - Chemistry Results 08/09/18 08/09/18 08/10/18 15:23 20:37 00:03 Sodium Potassium Chloride Carbon Dioxide Anion Gap BUN Creatinine Estimated GFR POC Glucose 190 H 114 H 152 H Random Glucose Calcium Phosphorus Magnesium Total Bilirubin AST ALT Alkaline Phosphatase Ammonia Total Protein Albumin Vitamin B12 TSH 08/10/18 08/10/18 08/10/18 04:18 04:29 07:35 Sodium 145 Potassium 4.4 Chloride 111 H Carbon Dioxide 27.6 Anion Gap 6 BUN 53 H Creatinine 2.46 H Estimated GFR 32 L POC Glucose 167 H 177 H Random Glucose 137 H Calcium 7.6 L Phosphorus Magnesium 2.1 Total Bilirubin 0.4 AST 67 H ALT 61 Alkaline Phosphatase 188 H Ammonia Total Protein 6.4 D Albumin 1.9 L Vitamin B12 TSH 08/10/18 08/10/18 08/10/18 11:05 15:25 19:40 Sodium Potassium Chloride Carbon Dioxide Anion Gap BUN Creatinine Estimated GFR POC Glucose 189 H 159 H 141 H Random Glucose Calcium Phosphorus Magnesium Total Bilirubin AST ALT Alkaline Phosphatase Ammonia Total Protein Albumin Vitamin B12 TSH 08/11/18 08/11/18 08/11/18 00:01 04:02 06:11 Sodium 146 H Potassium 4.3 Chloride 111 H Carbon Dioxide 24.7 Anion Gap 10 BUN 63 H Creatinine 3.08 H Estimated GFR 24 L POC Glucose 124 H 145 H Random Glucose 154 H Calcium 7.8 L Phosphorus 2.5 Magnesium 2.1 Total Bilirubin 0.5 AST 130 H ALT 109 H Alkaline Phosphatase 279 H Ammonia Total Protein 6.4 Albumin 2.2 L Vitamin B12 1240 H TSH 1.260 08/11/18 08/11/18 08/11/18 06:11 08:01 11:36 Sodium Potassium Chloride Carbon Dioxide Anion Gap BUN Creatinine Estimated GFR POC Glucose 177 H 133 H Random Glucose Calcium Phosphorus Magnesium Total Bilirubin AST ALT Alkaline Phosphatase Ammonia 43 H Total Protein Albumin Vitamin B12 TSH Imaging: ITS Impressions Abdomen Ultrasound 06/21/18 00:00 CONCLUSION: 1. No ascites is identified within the abdomen. Chest CTA 07/02/18 00:00 CONCLUSION: 1. No pulmonary embolus. 2. Diffuse but basilar predominant bilateral airspace disease. 3. Endotracheal and endobronchial secretions are demonstrated. 4. Moderate emphysema. 5. Left ventricular hypertrophy. Abdomen/Pelvis CT 07/10/18 08:31 CONCLUSION: 1. There is gas and fluid distending the colon. The patient has a rectal tube in place however the rectal tube is kinked back on itself and occluded. The overall size of the colon has mildly increased when compared to previous exam. The small bowel is normal in caliber. 2. Interval development of a small left basilar effusion and atelectasis. Venous Doppler Study 07/15/18 00:00 CONCLUSION: 1. Limited suboptimal examination. 2. Nonocclusive thrombus in the jugular vein. Head MRI 08/10/18 00:00 CONCLUSION: No acute intracranial abnormality is identified. Abdomen/Bladder Ultrasound 08/10/18 08:23 CONCLUSION: 1. Normal sonographic evaluation of the kidneys. 2. No evidence of hydronephrosis. 3. Decompressed bladder. Head CT 08/10/18 15:53 CONCLUSION: Stable noncontrast head CT. No acute intracranial abnormality is identified. . Abdomen X-Ray 08/11/18 00:00 CONCLUSION: Relative paucity of bowel gas with is a gastric tube remain in place. There is no distended bowel loops identified. Chest X-Ray 08/11/18 06:00 CONCLUSION: Decrease in bilateral pulmonary opacity indicating decreased pulmonary edema or infection. Physical Exam: GENERAL: NAD SKIN: Warm and dry. no rash NECK: trach i n place EYES: Pupils equal and round. No scleral icterus. No injection or drainage. CARDIOVASCULAR: Regular rate and rhythm. RESPIRATORY: No accessory muscle use. Clear to auscultation. Breath sounds equal bilaterally. GASTROINTESTINAL: Abdomen soft, no reaction to palpatio, slightly less distended and tympanic. Dignishield in place : mora in place MUSCULOSKELETAL: Extremities without clubbing, cyanosis, or edema. No obvious deformities. 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
--- NOTE | 2018-08-11 14:32 | P.DIET ---
Nutritional Evaluation Type of nutrition evaluation: follow-up Nutrition consult regarding: Tube Feeding Subjective Subjective Comments: Pt on clear liquid diet briefly on 07/24 and ate 100% of all meals. Objective - Diagnosis SOB, COPD Exacerbation - Objective % IBW: 126 Body Weight Used for Calculations: IBW (67.3kg(148 lb)) Energy Needs - Lower Range (kCal/kg): 23 Energy Needs - Upper Range (kCal/kg): 28 Lower Limit kCal/kg (kCals): 1,548 Upper Limit kCal/kg (kCals): 1,884 Lower Limit Protein Factor (Grams per Kg): 1.2 Upper Limit Protein Factor (Grams per Kg): 1.4 Lower Protein Needs (Protein): 81 Upper Protein Needs (Protein): 94 Dietitian Reviewed in Medical Record: Curent medications, Intake & Output, Labs , Medical history, Tube feeding Diet Order: TF Objective Comments: PMH includes: COPD, HTN, hyperlipidemia, anxiety Labs include: BUN 63, Cr 3.08, GFR 24, POC Glucose 189 141 133 LBM 08/11/18, UOP 2100mL 08/02 s/p tracheostomy Assessment Assessment: Pt continues at nutritional risk r/t clinical status, requiring TF'ing for nutritional support. Pt trached and CPAP trial w/ T-piece, NGT in place for TF' ing. Family agreeable to PEG placement, GI reconsulted per MD note. Pt currently TF'ing Glucerna 1.5 @ goal rate 45mL/hr. Continue to monitor TF tolerance. Wt changes noted, CBW = 78kg (-8.18kg since admission). Labs reviewed , RD following. Brought forward: Pt extubated 06/29, re-intubated 07/02, extubated 07/17; 07/23 pt transferred from med-surg to [facility] w/difficulty breathing. Recommendations: 1. Continue TF'ing Glucerna 1.5 @ goal rate 45mL/hr 2. Continue to monitor TF tolerance 3. Dietitian following Dietitian to Monitor: Lab values, Electrolytes, Glucose level, Intake & Output, Weight change, Diet advancement, Medical course
[2018-08-11] MEDS: DAPTOmycin Inj 500 MG in Sodium Chlor 0.9% Inj 100 ML IV.SIG SCH (15:34)
--- NOTE | 2018-08-11 16:00 | OTSOAPIP ---
TIME SESSION COMPLETED: 1029 PATIENT UNAVAILABLE DUE TO EEG STUDY. WILL REATTEMPT NEXT TREATMENT DATE. Therapist: Damaris Sauer Signature on file
--- NOTE | 2018-08-11 16:21 | P.PNPL ---
Subjective Interval history: 73 YOAA male with COPD, 02 dependent Follows at [facility] Admitted with AMS, COPD exac. lethargic Off Precedex but gets Seraquil Had Sz activity had Ativan Started on Keppra Physical Exam Vital signs: Vital Signs 08/10/18 16:46 08/10/18 17:00 08/10/18 18:00 Temperature Pulse Rate 102 H 97 H 92 H Respiratory Rate 18 18 18 Blood Pressure 134/71 148/64 H 113/63 Pulse Oximetry 99 98 100 08/10/18 19:00 08/10/18 19:57 08/10/18 20:00 Temperature 98.8 F Pulse Rate 89 85 84 Respiratory Rate 18 18 18 Blood Pressure 127/64 136/65 Pulse Oximetry 99 100 99 08/10/18 20:25 08/10/18 21:00 08/10/18 22:00 Temperature Pulse Rate 96 H 88 Respiratory Rate 18 18 Blood Pressure Pulse Oximetry 100 100 100 08/10/18 23:00 08/10/18 23:20 08/11/18 00:00 Temperature 98.4 F Pulse Rate 85 88 95 H Respiratory Rate 18 18 18 Blood Pressure 128/72 Pulse Oximetry 100 100 100 08/11/18 01:00 08/11/18 02:00 08/11/18 02:58 Temperature Pulse Rate 93 H 95 H 93 H Respiratory Rate 18 20 20 Blood Pressure 136/68 135/68 Pulse Oximetry 100 100 08/11/18 03:00 08/11/18 03:35 08/11/18 04:00 Temperature 98.2 F Pulse Rate 93 H 99 H Respiratory Rate 20 20 19 Blood Pressure 131/67 121/71 Pulse Oximetry 100 100 99 08/11/18 06:00 08/11/18 07:28 08/11/18 08:00 Temperature 99.1 F Pulse Rate 96 H 100 H 112 H Respiratory Rate 20 18 Blood Pressure 137/73 Pulse Oximetry 100 100 08/11/18 09:28 08/11/18 10:00 08/11/18 10:05 Temperature Pulse Rate 105 H Respiratory Rate 25 H 27 H Blood Pressure Pulse Oximetry 100 99 08/11/18 10:43 08/11/18 10:58 08/11/18 12:00 Temperature 98.7 F Pulse Rate 104 H 104 H Respiratory Rate 20 23 Blood Pressure 153/78 H Pulse Oximetry 98 99 08/11/18 13:01 08/11/18 14:00 08/11/18 14:57 Temperature Pulse Rate 96 H 91 H Respiratory Rate 21 20 Blood Pressure Pulse Oximetry 99 08/11/18 16:00 08/11/18 16:11 Temperature Pulse Rate 89 Respiratory Rate 21 20 Blood Pressure Pulse Oximetry 99 Intake & Output 08/10/18 08/11/18 08/11/18 18:59 06:59 18:59 Intake Total 2580 / 2580 1350 / 1350 1800 / 1800 Output Total 1000 / 1000 1100 / 1100 Balance 1580 / 1580 250 / 250 1800 / 1800 Weight 78 kg Intake: IV 1100 / 1100 500 / 500 1800 / 1800 Alburx 5% Inj 500 ML @ 250 mls/ 500 / 500 500 / 500 hr IV.SIG Q12H WOLF Rx#:[id number] Azactam Inj 1,000 MG In NS Inj 100 / 100 100 ML @ 200 mls/hr IV.SIG Q6H WOLF Rx#:[id number] Maxipime Inj 2,000 MG In NS Inj 100 / 100 100 ML @ 200 mls/hr IV.SIG Q12H WOLF Rx#:[id number] Cubicin Inj 500 MG In NS Inj 100 / 100 100 ML @ 200 mls/hr IV.SIG Q48H WOLF Rx#:[id number] NS Inj 1,000 ML @ Wide Open IV. 1000 / 1000 SIG BOLUS ONE Rx#:[id number] 1/2 Normal Saline Inj 1,000 ML 1000 / 1000 @ Wide Open IV.SIG BOLUS ONE Rx #:[id number] Keppra 1000 mg/100 mL Premix 100 / 100 100 ML @ 400 mls/hr IV.SIG ONCE ONE Rx#:[id number] Tube Feeding 480 / 480 450 / 450 Tube Irrigant 100 / 100 Water Bolus Amount 400 / 400 400 / 400 Other 100 / 100 Rbc As-3 Leukoreduced Unit 100 / 100 [id number] Intake (Blood Product) Amt 400 / 400 Rbc As-3 Leukoreduced Unit 400 / 400 [id number] Output: Urine 0 / 0 Stool 850 / 850 1100 / 1100 Urine Amount (Catheter) 150 / 150 Straight 150 / 150 Other: Other Intake Source Rbc As-3 Leukoreduced Unit Saline Solution [id number] Date of Last Bowel Movement 08/10/18 08/11/1808/11/18 GENERAL: Obese Aa male, on Vent SKIN: Warm and dry. HEAD: Normocephalic. EYES: No scleral icterus. No injection or drainage. NECK: Supple, trachea midline. No JVD or lymphadenopathy. CARDIOVASCULAR: Regular rate and rhythm without murmurs, gallops, or rubs. RESPIRATORY: Breath sounds equal bilaterally. No accessory muscle use. GASTROINTESTINAL: Abdomen soft, non-tender, distended. MUSCULOSKELETAL: No cyanosis, or edema. BACK: Nontender without obvious deformity. No CVA tenderness. - Urinary Catheter Management Indwelling Urethral Catheter Cath placed during this visit: yes, but has since been removed by the nurse Reason for continuing: Acute urinary retention Insertion date: 07/14/18 Insertion time: 21:55 Removal date: 08/02/18 Removal time: 07:59 Straight Cath placed during this visit: yes Reason for continuing: Acute urinary retention Insertion date: 08/11/18 Insertion time: 10:48 Condom Cath placed during this visit: no Indwelling Temp Sensing Catheter Cath placed during this visit: yes, but has since been removed by the nurse Reason for continuing: Decision to DC catheter Insertion date: 08/02/18 Insertion time: 08:00 Removal date: 08/09/18 Removal time: 18:30 Assessment and Plan - Plan IMPRESSION: Hypercapnoic RF, COPD exac AMS improved 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 Abdominal distension, s/p decompression. Ileus Seizure. PLAN: Cont Vent support Daily CPAP trial Trach care Aerosol nebs Supplement 02 Monitor H/H Cont Keppra neuro consulted
[2018-08-11 16:52] LABS: INR 1.2 Ratio; Prothrombin Time 11.9 sec (9.8-11.6)
--- NOTE | 2018-08-11 18:33 | P.PNNP ---
Subjective Interval history: Patient had a prolonged hospitalization he was getting better and he is back in intensive care unit status post tracheostomy on ventilator, patient has chronic abdominal distention, constipation, he had acute renal failure from which he recovered now his kidney is failing again he is becoming oliguric, he was tried on albumin and Bumex drip with only a mild response Patient has received vancomycin last level at 08/10 was 31.7 Physical Exam Vital signs: Vital Signs 08/10/18 19:00 08/10/18 19:57 08/10/18 20:00 Temperature 98.8 F Pulse Rate 89 85 84 Respiratory Rate 18 18 18 Blood Pressure 127/64 136/65 Pulse Oximetry 99 100 99 08/10/18 20:25 08/10/18 21:00 08/10/18 22:00 Temperature Pulse Rate 96 H 88 Respiratory Rate 18 18 Blood Pressure Pulse Oximetry 100 100 100 08/10/18 23:00 08/10/18 23:20 08/11/18 00:00 Temperature 98.4 F Pulse Rate 85 88 95 H Respiratory Rate 18 18 18 Blood Pressure 128/72 Pulse Oximetry 100 100 100 08/11/18 01:00 08/11/18 02:00 08/11/18 02:58 Temperature Pulse Rate 93 H 95 H 93 H Respiratory Rate 18 20 20 Blood Pressure 136/68 135/68 Pulse Oximetry 100 100 08/11/18 03:00 08/11/18 03:35 08/11/18 04:00 Temperature 98.2 F Pulse Rate 93 H 99 H Respiratory Rate 20 20 19 Blood Pressure 131/67 121/71 Pulse Oximetry 100 100 99 08/11/18 06:00 08/11/18 07:28 08/11/18 08:00 Temperature 99.1 F Pulse Rate 96 H 100 H 112 H Respiratory Rate 20 18 Blood Pressure 137/73 Pulse Oximetry 100 100 08/11/18 09:28 08/11/18 10:00 08/11/18 10:05 Temperature Pulse Rate 105 H Respiratory Rate 25 H 27 H Blood Pressure Pulse Oximetry 100 99 08/11/18 10:43 08/11/18 10:58 08/11/18 12:00 Temperature 98.7 F Pulse Rate 104 H 104 H Respiratory Rate 20 23 Blood Pressure 153/78 H Pulse Oximetry 98 99 08/11/18 13:01 08/11/18 14:00 08/11/18 14:57 Temperature Pulse Rate 96 H 91 H Respiratory Rate 21 20 Blood Pressure Pulse Oximetry 99 08/11/18 16:00 08/11/18 16:11 Temperature 98.8 F Pulse Rate 90 Respiratory Rate 20 20 Blood Pressure 120/61 Pulse Oximetry 100 99 Intake & Output 08/10/18 08/11/18 08/11/18 18:59 06:59 18:59 Intake Total 2580 / 2580 1350 / 1350 2725 / 2725 Output Total 1000 / 1000 1100 / 1100 1125 / 1125 Balance 1580 / 1580 250 / 250 1600 / 1600 Weight 78 kg Intake: IV 1100 / 1100 500 / 500 1800 / 1800 Alburx 5% Inj 500 ML @ 250 mls/ 500 / 500 500 / 500 hr IV.SIG Q12H WOLF Rx#:[id number] Azactam Inj 1,000 MG In NS Inj 100 / 100 100 ML @ 200 mls/hr IV.SIG Q6H WOLF Rx#:[id number] Maxipime Inj 2,000 MG In NS Inj 100 / 100 100 ML @ 200 mls/hr IV.SIG Q12H WOLF Rx#:[id number] Cubicin Inj 500 MG In NS Inj 100 / 100 100 ML @ 200 mls/hr IV.SIG Q48H WOLF Rx#:[id number] NS Inj 1,000 ML @ Wide Open IV. 1000 / 1000 SIG BOLUS ONE Rx#:[id number] 1/2 Normal Saline Inj 1,000 ML 1000 / 1000 @ Wide Open IV.SIG BOLUS ONE Rx #:[id number] Keppra 1000 mg/100 mL Premix 100 / 100 100 ML @ 400 mls/hr IV.SIG ONCE ONE Rx#:[id number] Tube Feeding 480 / 480 450 / 450 525 / 525 Tube Irrigant 100 / 100 Water Bolus Amount 400 / 400 400 / 400 400 / 400 Other 100 / 100 Rbc As-3 Leukoreduced Unit 100 / 100 [id number] Intake (Blood Product) Amt 400 / 400 Rbc As-3 Leukoreduced Unit 400 / 400 [id number] Output: Urine 0 / 0 Stool 850 / 850 1100 / 1100 800 / 800 Urine Amount (Catheter) 150 / 150 325 / 325 Indwelling Urethral Catheter 325 / 325 Straight 150 / 150 Other: Other Intake Source Rbc As-3 Leukoreduced Unit Saline Solution [id number] Date of Last Bowel Movement 08/10/18 08/11/18 08/11/18 Narrative: GENERAL: Well-nourished, well-developed. Status post tracheostomy on ventilator SKIN: Warm and dry. No rash. HEENT: Normocephalic. Atraumatic. Pupils equal and round. Mucous membranes pink and moist. NECK: Trachea tracheostomy in place CARDIOVASCULAR: Tachycardia RESPIRATORY: Diminished air entry at the bases on ventilator. GASTROINTESTINAL: Abdomen is slightly distended normoactive bowel sounds x4. MUSCULOSKELETAL: No obvious deformities. 2-3+ BLE edema. NEUROLOGICAL: on ventilator and sedated - Urinary Catheter Management Indwelling Urethral Catheter Cath placed during this visit: yes, but has since been removed by the nurse Reason for continuing: Acute urinary retention Insertion date: 07/14/18 Insertion time: 21:55 Removal date: 08/02/18 Removal time: 07:59 Straight Cath placed during this visit: yes Reason for continuing: Acute urinary retention Insertion date: 08/11/18 Insertion time: 10:48 Condom Cath placed during this visit: no Indwelling Temp Sensing Catheter Cath placed during this visit: yes, but has since been removed by the nurse Reason for continuing: Decision to DC catheter Insertion date: 08/02/18 Insertion time: 08:00 Removal date: 08/09/18 Removal time: 18:30 Assessment and Plan - Assessment (1) Acute renal failure Code(s): N17.9 - Acute kidney failure, unspecified Status: Acute (2) Anasarca Code(s): R60.1 - Generalized edema Status: Acute (3) Abdominal distention Code(s): R14.0 - Abdominal distension (gaseous) Status: Acute (4) Ileus Code(s): K56.7 - Ileus, unspecified Status: Acute - Plan Patient seen and examined, patient is doing poorly and urine output has dropped he has been treated with vancomycin Status post tracheostomy On ventilator Discussed with sister that he will need to hemodialysis as since response to albumin and Bumex drip is poor He has several infections including UTI, sepsis, pneumonia underlying COPD Chances are that he may require hemodialysis for prolonged period of time Discussed with staff This can be arranged in the a.m.
[2018-08-11 18:54] LABS: Carbon Dioxide 24.6 meq/L (21.0-32.0); Potassium 4.5 meq/L (3.5-5.1)
--- NOTE | 2018-08-11 19:30 | MB ---
cc: Susan Pantoja MD DATE: 08/11/2018 REASON FOR CONSULTATION: New-onset seizure. HISTORY OF PRESENT ILLNESS: This is a 73-year-old man admitted here on 06/22/2018 with a history of COPD, on 3 liters nasal cannula, apparently noted that he was having some shaking and possibly seizures on EEG. I do not have the EEG reading thus far. However, the fabrication and assembly supervisor had taken him off medications that could have seizure side effect. He was loaded with Keppra and is on a maintenance dose of 500 every 12 hours. As far as his exam, per history, the patient has never followed commands withdrawing, but is not doing anything currently. PHYSICAL EXAMINATION: VITAL SIGNS: Temperature currently is 98.7, pulse 91, respiratory rate 20, blood pressure 153/78. GENERAL: He is intubated on ventilator. NEUROLOGIC: Pupils are reactive. Does not respond to any noxious stimuli. He does not follow any commands. No withdrawal. DTRs are decreased. LABORATORY DATA: Reviewed. He had an MRI of the brain which was unremarkable for anything acute. IMPRESSION: Possible seizure. PLAN: Recommend continuing the Keppra. We will get the EEG from today. I will go ahead and repeat another EEG tomorrow and will continue to monitor. Adjust medications as needed. Susan Pantoja MD DF/ll , 04:02 PM , 04:09 PM
[2018-08-12] MEDS: Artificial Tears Opth Drops 15 ML Bottle EACH EYE SCH ×3 (00:49→17:09)
[2018-08-12] MEDS: Insulin NovoLOG Aspart Correctional Sugar Inj SQ SCH ×6 (00:49→21:05)
[2018-08-12] MEDS: Pantoprazole Inj 40 MG Vial IV.PUSH SCH ×2 (03:24→13:37)
--- NOTE | 2018-08-12 05:25 | XR ---
EXAM DATE: 08/12/2018 5:20 AM EST AGE/SEX: 73 years / Male INDICATIONS: Short of breath. CLINICAL DATA: This is the patient's subsequent encounter. Patient reports that signs and symptoms h ave been present for 2 weeks and indicates a pain score of 0/10. MEDICAL/SURGICAL HISTORY: . Chronic obstructive pulmonary disease. Hypertension. Asthma. None . COMPARISON: [facility] [place]ST 1V SINGLE AP, 08/11/2018. . FINDINGS: Single AP view the chest. Tracheostomy tube and nasogastric tube remain in place. Increased hazy righ t lung base opacity. Persistent left lower lobe atelectasis. No evidence of pneumothorax. CONCLUSION: Increased right lung base opacity indicating either parenchymal opacity or pleural effusion. Electronically signed by: Ernesto Figueredo MD 08/12/2018 5:24 AM EST
[2018-08-12] MEDS: Albumin Human 5% Inj 500 ML IV.SIG SCH (06:47)
[2018-08-12] MEDS: Dextrose 50% in Water 50 ML Vial IV.PUSH PRN (06:47)
[2018-08-12 06:59] LABS: Baso % (Auto) 0.3 % (0.0-2.0); Eos # (Auto) 0.1 th/mm3 (0.0-0.4); Hematocrit 22.4 % (39.0-51.0); Hemoglobin 7.5 gm/dL (13.0-17.0); Lymph # (Auto) 1.1 th/mm3 (1.0-4.8); Lymph % (Auto) 14.6 % (9.0-44.0); Mean Corpuscular HGB Conc 33.7 % (32.0-36.0); Mean Corpuscular Hemoglobin 30.9 pg (27.0-34.0); Mean Corpuscular Volume 91.9 fL (80.0-100.0); Mean Platelet Volume 9.8 fL (7.0-11.0); Mono # (Auto) 0.7 th/mm3 (0.0-0.9); Mono % (Auto) 9.5 % (0.0-8.0); Neut # (Auto) 5.4 th/mm3 (1.8-7.7); Neut % (Auto) 74.6 % (16.0-70.0); Platelet Count 120 th/mm3 (150-450); Red Blood Count 2.43 mil/mm3 (4.50-5.90); White Blood Count 7.2 th/mm3 (4.0-11.0)
[2018-08-12] MEDS ORDERED: Dextrose 5%/NaCl 0.45% Inj 1,000 ML IV.CONT SCH (07:15)
--- NOTE | 2018-08-12 07:20 | P.PNCC ---
Subjective Subjective Remarks/Hospital Course: Mr. Curry is a 73-year-old -[place] male with past medical history significant for COPD on 3 L nasal cannula, hypertension, hyperlipidemia and anxiety who was admitted to the hospitalist service on 06/19/2018 for worsening shortness of breath due to COPD exacerbation. He was treated with IV Solu- Medrol, IV antibiotics, breathing treatments gradually improved. Patient was also complaining about dyspepsia and underwent EGD by GI yesterday. Per report the EGD was normal but patient developed worsening shortness of breath and COPD exacerbation postprocedure, possibly from aspiration after sedated. Two ABGs done yesterday showed hypercapnic respiratory failure second 1 was on BiPAP and this was improved with pH 7.3 with PCO2 of 74. Patient remained on BiPAP overnight however was noticed to be lethargic today a.m., stat ABG showed pH of 7.21 PCO2 110 PO2 88 while on BiPAP. Patient was lethargic intermittently dozing off due to CO2 narcosis. Critical care medicine was consulted and I immediately evaluated the patient. Patient had obviously failed BiPAP I proceeded with endotracheal intubation placed on mechanical ventilation. Postintubation I have ordered single dose of Solu-Medrol 125 mg x1 continue Solu -Medrol 60 every 8, discontinue ceftriaxone and start cefepime 2 g IV every 8 hours continue azithromycin. Add budesonide inhaled, placed on scheduled DuoNeb every 4 hours and as needed. 06/27: Patient was intubated yesterday for severe hypercapnic respiratory failure. Currently remains intubated sedated and intubated remains diminished bilaterally. Heavily sedated for ventilator synchrony 06/28: Urine output significantly improved with fluid resuscitation. Creat down trending now 2 from 2.3, UO >3.3 L. Remains intubated sedated. Will initiate daily sedation vacation and CPAP trials 06/29: More awake today tolerating CPAP trials intermittently follows commands but gets agitated/frustrated fast. Urine output remains excellent creatinine 1.4. However sodium increasing 158 today. Night mini shifter had changed fluid to D5 W for free water replacement. Due to hypoglycemia will change to quarter normal saline at 150 mL/h repeat CMP in the afternoon 06/30 Patient was extubated yesterday. Awake 07/01 Patient is lying in bed in NAD. T: 100.5 07/02: Intubated early this morning due to acute hypoxic respiratory failure. Central line placed due to hypotension. Plan for GI perform endoscopic decompression of this large bowel today. Arousable and does follow commands. Placed on argatroban 07/03: Currently, intubated with borderline blood pressure. Central line placed yesterday due to hypotension. Did not move bowels despite 1 L of fluid from colonoscopy yesterday and multiple laxatives provided. See orders for additional laxatives today. Might need neostigmine. 07/04 Patient remains intubated and sedated with Diprivan. Given Neostigmine last night. KUB this morning showed colonic ileus. Afebrile. On Argatroban. 07/05 No events overnight, sedated with Diprivan and intubated. Off Argatroban. 07/06 Patient remains intubated and sedated. Afebrile. 07/07 Patient remains intubated, s/p decompressive colonoscopy yesterday. Awake. 07/08 Patient s/p extubation yesterday. Awake and alert. 07/09 Patient is awake, alert lying in bed in NAD. Afebrile. 07/10 Patient is awake and alert, Afebrile. 07/11 Patient s/p decompressive colonoscopy yesterday. Afebrile. On Lasix drip.( UOP: 2800ml overnight). Cr: 3.0 from 2.25. 07/12 Patient is awake, alert given Neostigmine overnight. NGT to LIWS, off Lasix drip. 07/13: Resting comfortably in bed in no acute distress. 3 bowel movements documented. Remains n.p.o. Bladder pressures around 6. Potassium being replaced. Remains anemic around 7. 07/14 Patient is lying in bed in NAD. Afebrile. 07/15 No events overnight. Afebrile. 07/16: Resting in bed mild distress. Abdomen remains distended. Hemoglobin has dropped to 6.2 2 units of PRBC ordered. Patient underwent decompressive colonoscopy by Dr. Berrios for colonic ileus 07/17: No significant overnight events, patient states that he wants to get out of bed to a chair as he is having rectal discomfort. 07/18: Patient reportedly had a BM after digital rectal exam yesterday, states that he's been passing flatus "every now and then" overnight. No plans for OR or sigmoidoscopy as per colorectal service, OK to transfer out of [facility]. 07/19: Patient transferred to [facility] yesterday, complained of shortness of breath again today. An ABG showed a pCO2 of 79 so he was placed on bipap and transferred to [facility]. Most recent ABG shows pCO2 of 66, KUB still has abdominal distension but appears to be improved when compared to KUB from 07/15. Patient has reportedly been having bowel movements and passing flatus overnight. 07/20: No dramatic improvement in abdominal distention however abdomen soft. The patient was able to breathe comfortably overnight and remained alert. This morning the BiPAP mask was removed for half an hour and the patient did well without evidence of CO2 retention or somnolence. Reconsult note 07/23: The patient was a halicat from the [facility] floor. Patient was noted to be somnolent, had difficulty breathing. Stat ABG was performed revealing a PCO2 of 113. The patient was placed on BiPAP and transferred to [facility]. Currently remains on CPAP respiratory rate is 25 , 16/5 with an FiO2 35%. 07/24: Overnight the patient was placed on BiPAP 10/5 refusing BiPAP pulling out IVs. The patient became tachycardic refusing p.o. medications. The patient was placed on a Cardizem infusion currently at 5 mg an hour. Patient is more compliant at this time the patient's BiPAP settings were increased to 15 /5 35% stat ABGs were ordered the patient was noted to have a PCO2 of 89, continues with hypercapnic respiratory failure in the setting of severe COPD. Extensive discussion with family at bedside the patient's sister and daughter provided medical status update on recent transfer to ICU and current standing. Inform family that patient is at risk for for emergent intubation. Repeat ABG pending this evening. 07/25: Patient noted to have episodes of agitation continually removing BiPAP. I discussed with patient the criticality of his illness and possible intubation patient now agrees to wear BiPAP with exception of meals. Patient's diet was advanced to clear liquid noted improvement of chest x-ray patient is noted to have last bowel movement approximately 2 days ago we will continue to monitor and follow-up GI recommendations . Noted electrolyte repletion at this time. PCO2 now in the 60s. 07/26: Patient continues to be noncompliant with BiPAP mask. ABGs obtained noting a PO2 of 45.6. The patient was emergently intubated this afternoon. Chest x-ray and repeat ABG pending at this time. Noted patient's last bowel movement last night. 07/27: Afebrile. Remains on ventilator. Will start tube feeding today. BM noted overnight. Replacing potassium phosphate, calcium chloride x1 now. And magnesium sulfate 07/28: Afebrile. Did not tolerate CPAP trial the same. Tolerating tube feeds today. Last bowel movement yesterday 09/26. Mild ileus on abdominal x-ray today. 07/29: Afebrile. Tolerated CPAP times 3 hours. He is intolerant to P. 2 bowel movements. Abdominal x-ray unchanged but no signs of obstructive or ileus. 07/30: Afebrile. Currently on CPAP trials. Positive BM. No change in neurological status. Increasing metoprolol to 5 mg IV every 6 hours. 07/31: Again on CPAP trials. Awake and alert on dexmedetomidine drip. Will put on metoprolol tartrate 25 mg every 8 hours and titrate. Positive BM. Recheck KUB in a.m. 08/01. 08/01: Currently tolerating CPAP, but requiring 15 pressure support. Patient had been intubated 3 times this admission, according to the caregiver and go from had to do patient's a total of several intubation in the last 2-3 months. I discussed with the patient was agreeable for tracheostomy, I also discussed with Stephanie patient's daughter and she has given consent for tracheostomy. Plan for tracheostomy tomorrow 08/02: Patient currently on Precedex awake alert not tolerating CPAP trials. Plan for tracheostomy today. Transfuse 1 unit PRBC 1 pack units of platelets prior to trach 08/03: Patient remains calm on the vent currently tolerating pressure support 06/06. Status post tracheostomy yesterday no significant bleeding. Platelet count 103 today. 08/04: Patient placed on CPAP trials this a.m. and continues without difficulty. Precedex infusion currently at 1.5 mcgs/kg/hour. Tentative plan for PEG tube placement procedure on hold awaiting discussion with family, POA. Patient continues to have large bowel movements. 08/05: Continued copious large bowel movement. Fecal containment device / Dignashield applied. Placement of PEG tube continues to be on hold ,due to the inability to contact the POA. 08/06: Palliative care security team lead Ms. Pittman had extensive meeting with the patient's POA tentative plan for placement of PEG tube. 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 Brown infectious disease. Patient continues to be agitated and requires Precedex infusion currently at 1.5, plan to initiate Seroquel this evening and attempts to decrease agitation, and subsequently discontinue Precedex infusion. The patient has been initiated on trach collar trials and continues greater than 6 hours. 08/07: No acute events overnight. GI consult for PEG placement. Tolerating tube feeds. 08/08: The patient tolerated T-piece for approximately 10 hours. Patient placed back on CPAP this evening. Agitation resolved with ministration of Seroquel. Patient responding to questions nodding head yes and no. 08/09: Currently on vent support, tolerates CPAP. Attempt T-piece daily, check chest x-ray today repeat labs in a.m. 08/10: T-max 100. Remains tachycardic. More lethargic today. Leaking around tracheostomy site. Increasing rate and tidal volume. 08/11: Currently afebrile. Remains tachycardic. Remains lethargic withdraws but not following commands. Negative CT and MRI of brain. EEG pending. Worsening renal failure noted. Decreased urine output. Having copious bowel movements. Subjective 08/12: Received 4 mg lorazepam yesterday due to possible seizure activity. Did not appear to be akathisia movements versus tardive dyskinesia. Currently on levetiracetam 5 mg twice daily. Will adjust for renal respiratory neurology consultation patient. EEG results pending. Negative MRI brain 08/10. Plan for PEG tube placement today likely hemodialysis Objective Vital Signs / I&O: Vital Signs 08/11/18 07:28 08/11/18 08:00 08/11/18 08:01 Temperature 99.1 F Pulse Rate 100 H 104 H 97 H Respiratory Rate 20 18 18 Blood Pressure 137/73 137/73 Pulse Oximetry 100 100 100 08/11/18 09:00 08/11/18 09:28 08/11/18 10:00 Temperature Pulse Rate 103 H 105 H Respiratory Rate 24 25 H 26 H Blood Pressure 139/91 H 145/68 H Pulse Oximetry 100 100 97 08/11/18 10:05 08/11/18 10:42 08/11/18 10:43 Temperature Pulse Rate 105 H Respiratory Rate 27 H 25 H Blood Pressure 149/79 H Pulse Oximetry 99 99 98 08/11/18 10:58 08/11/18 11:00 08/11/18 12:00 Temperature 98.7 F Pulse Rate 104 H 106 H 104 H Respiratory Rate 20 29 H 23 Blood Pressure 153/78 H Pulse Oximetry 98 99 08/11/18 12:50 08/11/18 13:00 08/11/18 13:01 Temperature Pulse Rate 98 H 103 H 101 H Respiratory Rate 24 23 23 Blood Pressure 153/78 H 131/74 Pulse Oximetry 99 98 99 08/11/18 14:00 08/11/18 14:57 08/11/18 15:00 Temperature Pulse Rate 102 H 91 H 91 H Respiratory Rate 28 H 20 20 Blood Pressure 153/83 H 120/62 Pulse Oximetry 97 100 08/11/18 16:00 08/11/18 16:11 08/11/18 17:00 Temperature 98.8 F Pulse Rate 90 89 Respiratory Rate 20 20 20 Blood Pressure 120/61 118/61 Pulse Oximetry 100 99 100 08/11/18 18:00 08/11/18 18:01 08/11/18 19:00 Temperature Pulse Rate 93 H 93 H 92 H Respiratory Rate 22 21 20 Blood Pressure 137/73 128/75 Pulse Oximetry 100 100 100 08/11/18 19:22 08/11/18 20:00 08/11/18 20:09 Temperature 97.5 F L Pulse Rate 93 H 98 H 99 H Respiratory Rate 20 24 27 H Blood Pressure 107/64 Pulse Oximetry 100 100 99 08/11/18 21:00 08/11/18 22:00 08/11/18 23:00 Temperature Pulse Rate 98 H 95 H 94 H Respiratory Rate 23 24 31 H Blood Pressure 108/63 120/61 Pulse Oximetry 97 97 98 08/11/18 23:16 08/11/18 23:36 08/12/18 00:00 Temperature 96.5 F L Pulse Rate 101 H 100 H 99 H Respiratory Rate 26 H 20 26 H Blood Pressure 115/80 96/69 L Pulse Oximetry 100 100 99 08/12/18 01:00 08/12/18 02:00 08/12/18 03:25 Temperature Pulse Rate 92 H 101 H 96 H Respiratory Rate 18 20 20 Blood Pressure 103/58 L 105/75 Pulse Oximetry 99 99 08/12/18 03:56 Temperature Pulse Rate Respiratory Rate 20 Blood Pressure Pulse Oximetry 100 Intake & Output 08/11/18 08/12/18 08/12/18 18:59 06:59 18:59 Intake Total 2725 / 2725 600 / 600 Output Total 1125 / 1125 Balance 1600 / 1600 600 / 600 Intake: IV 1800 / 1800 600 / 600 Alburx 5% Inj 500 ML @ 250 mls/ 500 / 500 500 / 500 hr IV.SIG Q12H WOLF Rx#:[id number] Azactam Inj 1,000 MG In NS Inj 100 / 100 100 / 100 100 ML @ 200 mls/hr IV.SIG Q6H WOLF Rx#:[id number] Cubicin Inj 500 MG In NS Inj 100 / 100 100 ML @ 200 mls/hr IV.SIG Q48H WOLF Rx#:[id number] 1/2 Normal Saline Inj 1,000 ML 1000 / 1000 @ Wide Open IV.SIG BOLUS ONE Rx #:[id number] Keppra 1000 mg/100 mL Premix 100 / 100 100 ML @ 400 mls/hr IV.SIG ONCE ONE Rx#:[id number] Tube Feeding 525 / 525 Water Bolus Amount 400 / 400 Output: Stool 800 / 800 Urine Amount (Catheter) 325 / 325 Indwelling Urethral Catheter 325 / 325 Other: Date of Last Bowel Movement 08/11/18 08/12/18 Result Diagrams: 08/12/18 05:59 08/11/18 17:58 Other Results: Microbiology 08/10/18 08:45 Clean Catch Urine Urine Culture - Preliminary Immature growth - reincubate 08/10/18 10:30 Blood - Peripheral Aerobic Blood Culture - Preliminary No growth in 1 day 08/10/18 10:30 Blood - Peripheral Anaerobic Blood Culture - Preliminary No growth in 1 day 08/10/18 10:51 Blood - Peripheral Aerobic Blood Culture - Preliminary No growth in 1 day 08/10/18 10:51 Blood - Peripheral Anaerobic Blood Culture - Preliminary No growth in 1 day 08/03/18 14:30 Blood - Peripheral Aerobic Blood Culture - Final No growth in 5 days 08/03/18 14:30 Blood - Peripheral Anaerobic Blood Culture - Final Staphylococcus epidermidis 08/03/18 14:56 Blood - Peripheral Aerobic Blood Culture - Final Staphylococcus coag negative 08/03/18 14:56 Blood - Peripheral Anaerobic Blood Culture - Final Staphylococcus epidermidis 08/02/18 09:30 Catheterized Urine Urine Culture - Final Enterococcus faecalis Klebsiella pneumoniae 07/28/18 06:00 Catheterized Urine Urine Culture - Final Koki albicans 07/11/18 13:50 Blood - Peripheral Aerobic Blood Culture - Final No growth in 5 days 07/11/18 13:50 Blood - Peripheral Anaerobic Blood Culture - Final No growth in 5 days 07/11/18 02:48 Blood - Peripheral Aerobic Blood Culture - Final No growth in 5 days 07/11/18 02:48 Blood - Peripheral Anaerobic Blood Culture - Final No growth in 5 days 07/11/18 16:50 Clean Catch Urine Urine Culture - Final No growth in 48 hours 07/09/18 00:30 Stool Cryptosporidium Antigen - Final Negative - No Cryptosporicium antigen detected In selected cases of patients with a history of immunosuppression or foreign travel, a full ova and parasites examination may be desired. Contact the microbiology lab if full workup is indicated and subit another specimen for testing. 07/09/18 00:30 Stool Giardia Antigen (GERONIMO) - Final Negative - No Giardia Antigen detected In selected cases of patients with a history of immunosuppression or foreign travel, a full ova and parasites examination may be desired. Contact the microbiology lab if full workup is indicated and subit another specimen for testing. 07/02/18 05:41 Blood - Peripheral Aerobic Blood Culture - Final No growth in 5 days 07/02/18 05:41 Blood - Peripheral Anaerobic Blood Culture - Final No growth in 5 days 07/02/18 05:47 Blood - Peripheral Aerobic Blood Culture - Final No growth in 5 days 07/02/18 05:47 Blood - Peripheral Anaerobic Blood Culture - Final No growth in 5 days 07/02/18 22:00 Sputum - Endotracheal Gram Stain - Final 07/02/18 22:00 Sputum - Endotracheal Sputum Culture - Final Heavy growth normal respiratory justyn 06/26/18 10:10 Sputum - Endotracheal Gram Stain - Final 06/26/18 10:10 Sputum - Endotracheal Sputum Culture - Final Light growth normal respiratory justyn Imaging: Chest X-Ray 06/19/18 20:38 CONCLUSION: No evidence of acute cardiopulmonary disease. Abdomen Ultrasound 06/21/18 00:00 CONCLUSION: 1. No ascites is identified within the abdomen. Abdomen X-Ray 06/21/18 00:00 CONCLUSION: No acute findings. Mild constipation. Chest X-Ray 06/23/18 00:00 CONCLUSION: 1. No acute abnormality or significant interval change. Abdomen/Pelvis CT 06/24/18 00:00 CONCLUSION: 1. Benign appearing right adrenal mass. 2. No acute CT findings in the abdomen or pelvis. Chest X-Ray 06/25/18 00:00 CONCLUSION: Suspected mild atelectasis or consolidation at the medial right base. Chest X-Ray 06/26/18 00:00 CONCLUSION: 1. Endotracheal tube is appropriately positioned above the christy. 2. Nasogastric tube traverses the GE junction and is curled in the gastric lumen. 3. Lungs are clear. Abdomen X-Ray 06/26/18 09:21 CONCLUSION: 1. Nonobstructive bowel gas pattern without pneumoperitoneum. 2. Nasogastric tube is curled in the expected location of the gastric body. I believe the portions of the tube identified over the heart shadow is probably projectional as there is no evidence of a significant hiatal hernia on the most recent CT of the abdomen. Chest X-Ray 06/26/18 15:37 CONCLUSION: 1. Lungs remain clear. 2. Interval placement of a right IJ central venous catheter with the tip projecting over the central venous system. No pneumothorax. 3. Endotracheal and nasogastric tubes remain appropriately positioned. Abdomen/Bladder Ultrasound 06/28/18 00:00 CONCLUSION: 1. Echogenic kidneys characteristic of medical renal disease. No hydronephrosis. Bladder decompressed by Moreno Chest X-Ray 06/28/18 06:00 CONCLUSION: The lungs are clear. Lines and tubes stable. Chest X-Ray 06/29/18 06:00 CONCLUSION: The lungs are clear. Lines and tubes stable. Venous Doppler Study 07/01/18 00:00 CONCLUSION: 1. The study is negative for bilateral lower extremity deep venous thrombosis. Chest X-Ray 07/01/18 20:41 CONCLUSION: Negative examination. Chest CTA 07/02/18 00:00 CONCLUSION: 1. No pulmonary embolus. 2. Diffuse but basilar predominant bilateral airspace disease. 3. Endotracheal and endobronchial secretions are demonstrated. 4. Moderate emphysema. 5. Left ventricular hypertrophy. Venous Doppler Study 07/02/18 00:00 CONCLUSION: 1. Limited, no evidence for thrombosis. Chest X-Ray 07/02/18 04:04 CONCLUSION: 1. Interim intubation and nasogastric tube placement as above. 2. Mild bibasilar atelectasis has developed. Abdomen/Pelvis CT 07/02/18 04:20 CONCLUSION: Colonic distention most likely representing moderate adynamic ileus. However, distal sigmoid colon is decompressed and a sigmoid stricture is conceivable but considered less likely. Apparent mild proctitis. Clinical surveillance and follow-up CT recommended. Chest X-Ray 07/02/18 14:46 CONCLUSION: Left IJ line in good position. There is no pneumothorax. Abdomen X-Ray 07/04/18 00:01 CONCLUSION: Findings of colonic ileus Chest X-Ray 07/04/18 06:00 CONCLUSION: Cardiomegaly and findings of vascular congestion without overt failure. There has been no significant change when compared to the prior exam. Abdomen X-Ray 07/05/18 07:08 CONCLUSION: No significant interval change with persistent diffuse air-filled distention of the colon suggesting ileus. Chest X-Ray 07/07/18 07:12 CONCLUSION: Minimal bibasilar densities likely atelectasis. Abdomen X-Ray 07/07/18 07:13 CONCLUSION: Gaseous distention of multiple bowel loops has improved since previous study. Abdomen X-Ray 07/09/18 07:14 CONCLUSION: 1. Apparent interval removal of NGT. 2. Improving bowel gas pattern consistent with improving adynamic ileus. Abdomen/Pelvis CT 07/10/18 08:31 CONCLUSION: 1. There is gas and fluid distending the colon. The patient has a rectal tube in place however the rectal tube is kinked back on itself and occluded. The overall size of the colon has mildly increased when compared to previous exam. The small bowel is normal in caliber. 2. Interval development of a small left basilar effusion and atelectasis. Chest X-Ray 07/10/18 08:42 CONCLUSION: Mild patchy bilateral lung base opacity likely representing atelectasis unchanged. Small left pleural effusion now seen. Abdomen X-Ray 07/11/18 00:00 CONCLUSION: 1. Questionable NGT at the GE junction, as above. 2. Moderately improved colonic distention. Abdomen X-Ray 07/12/18 00:00 CONCLUSION: Probable generalized ileus. No abrupt caliber changes are seen. No free air. Nasogastric tube tip is in the upper stomach. No gastric distention seen. Abdomen X-Ray 07/14/18 06:00 CONCLUSION: Distended air-filled colon. Ileus is the most likely etiology for this pattern. Abdomen X-Ray 07/15/18 00:00 CONCLUSION: Persistent air-filled loops of small and large bowel suggesting probably ileus. Clinical correlation is recommended. Venous Doppler Study 07/15/18 00:00 CONCLUSION: 1. Limited suboptimal examination. 2. Nonocclusive thrombus in the jugular vein. Chest X-Ray 07/16/18 10:00 CONCLUSION: Mild bibasilar consolidations, presumably atelectasis is unchanged. Abdomen X-Ray 07/19/18 14:09 CONCLUSION: Negative examination. Chest X-Ray 07/19/18 14:10 CONCLUSION: 1. No acute cardiopulmonary disease. 2. Mild degenerative changes and scoliosis of the thoracic spine. Chest X-Ray 07/23/18 00:00 CONCLUSION: Negative examination. Chest X-Ray 07/24/18 00:00 CONCLUSION: Mild bibasilar consolidation. Chest X-Ray 07/25/18 04:00 CONCLUSION: Previous basilar opacity has resolved. No new infiltrate or effusion. Abdomen X-Ray 07/26/18 00:00 CONCLUSION: Orogastric tube tip is in the distal stomach or proximal duodenum. Chest X-Ray 07/26/18 17:00 CONCLUSION: 1. ETT in good position. 2. No acute abnormality. Chest X-Ray 07/27/18 04:00 CONCLUSION: Endotracheal tube and nasogastric tube in good position. Minimal dependent atelectasis in the lungs. Abdomen X-Ray 07/28/18 00:01 CONCLUSION: Mild ileus. No evidence for obstruction or free air. Chest X-Ray 07/28/18 06:00 CONCLUSION: Mild basilar atelectasis. No effusion or pneumothorax. Abdomen X-Ray 07/29/18 00:01 CONCLUSION: NG tip in duodenum. No acute findings. Chest X-Ray 07/29/18 06:00 CONCLUSION: Endotracheal tube and nasogastric tube unchanged. Stable to slight increase in basilar airspace disease since July 28. Chest X-Ray 07/30/18 06:00 CONCLUSION: Stable exam compared with July 22, 2017 with support apparatus in good position. Abdomen X-Ray 07/30/18 15:07 CONCLUSION: Benign-appearing KUB. Chest X-Ray 07/31/18 06:00 CONCLUSION: Increase in basilar airspace disease since July 30. Support apparatus unchanged. Chest X-Ray 08/01/18 06:00 CONCLUSION: Mild improvement in the bibasilar airspace opacity. Abdomen X-Ray 08/01/18 09:59 CONCLUSION: NG tube in place. Mild gaseous distention of portions of colon. Chest X-Ray 08/02/18 06:00 CONCLUSION: Stable chest x-ray with mild bibasilar opacity representing either atelectasis or consolidation. Chest X-Ray 08/03/18 06:00 CONCLUSION: Stable bibasilar airspace opacity representing either atelectasis or airspace consolidation. There is also a questionable hazy opacity at the right base which could indicate a small pleural effusion. Chest X-Ray 08/09/18 00:00 CONCLUSION: No significant change. Head MRI 08/10/18 00:00 CONCLUSION: No acute intracranial abnormality is identified. Abdomen/Bladder Ultrasound 08/10/18 08:23 CONCLUSION: 1. Normal sonographic evaluation of the kidneys. 2. No evidence of hydronephrosis. 3. Decompressed bladder. Head CT 08/10/18 15:53 CONCLUSION: Stable noncontrast head CT. No acute intracranial abnormality is identified. . Abdomen X-Ray 08/11/18 00:00 CONCLUSION: Relative paucity of bowel gas with is a gastric tube remain in place. There is no distended bowel loops identified. Chest X-Ray 08/11/18 06:00 CONCLUSION: Decrease in bilateral pulmonary opacity indicating decreased pulmonary edema or infection. Chest X-Ray 08/12/18 06:00 CONCLUSION: Increased right lung base opacity indicating either parenchymal opacity or pleural effusion. Objective Remarks: GENERAL: 73-year-old chronically ill appearing elderly -Maced[place] male lying in bed, awake , calm currently on PRVC SKIN: Warm and dry. No rash HEAD: Normocephalic. EYES: PERRL NECK: Supple, trachea midline. New tracheostomy with minimal dry blood around the site CARDIOVASCULAR: RRR. S1, S2. No S4. No murmur RESPIRATORY: Diminished breath sounds in bases noted right greater than left. B/ L equal air entry, patient. tolerating trach collar trials GASTROINTESTINAL: Abdomen continues/remains distended, grimaces when deep palpation, no guarding, hypoactive bowel sounds present. Ceci shield in place MUSCULOSKELETAL: 1-2+ bilateral upper/ lower extremity edema, warm and well- perfused NEURO: Arousable with open eyes. Grimaces with pain. Withdraws to pain all 4 extremities. Currently not following commands. Assessment and Plan - Assessment and Plan Plan: NEURO/Psych: Altered mental status due to CO2 retention/toxic metabolic encephalopathy -Discontinued dexmedetomidine 08/03 -F/U acetylcholine receptor and autoantibodies was negative -Currently on quetiapine 25 mg twice daily at night Holding duloxetine 20 mg daily/home medication Acetaminophen 650 by tube every 6 hours as needed fever Oxycodone/acetaminophen 5/325 1 tablet every 4 hours as needed pain CT brain 08/10 revealed no acute intracranial findings. MRI brain 08/10 revealed no acute intracranial findings EEG ordered for today this was also pending Neurology following. RESP: Hypercapnic respiratory failure Acute COPD exacerbation -Extubated 06/29. Reintubated 07/02 extubated again 07/07, reintubated 07/26 -Status post tracheostomy 08/02/2018. ACV - CPAP trial with T-piece 8-12 hours as tolerated -Albuterol/ipratropium aerosols every 4 hours scheduled and albuterol aerosols every 2 hours as needed -Continue budesonide twice daily CV: Essential hypertension - Monitor HR and BP keep MAP>65mmHg -Metoprolol tartrate 25 mg by tube every 8 hours GI: Colonic ileus Elevated transaminases -negative hepatitis panel Elevated ammonia Hypoalbuminemia with moderate protein calorie malnutrition -KUB 08/10 revealed no signs of obstructive process -Given Neostigmine 07/11. -s/p repeat decompressive colonoscopy 07/10 and 07/15 -Continue pantoprazole -On docusate sodium 100 cc twice daily/senna 8.6 mg tablet twice daily, lactulose 30 cc 2 times daily, polyethylene glycol 17 g twice daily. Stable discontinue methylnaltrexone e 12 mg subcu daily -NG tube. 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 Currently on Glucerna 1.5 goal 45 cc an hour -Discontinued metoclopramide 10 mg every 8 hours seizure activity Family agreeable to PEG tube placement. PEG tube placement planned for today FEN//renal: Acute renal injury -Monitor renal function, I/O's, avoid nephrotoxins -Renal function stable -Renal- Dr. Figueroa has followed. Recommend hemodialysis likely 08/12 -Repletion of electrolytes as clinically indicated -Free water 200 cc every 6 hours -08/05 C. difficile PCR-negative -Repeat renal ultrasound negative for hydronephrosis. Negative urine eosinophils Starting on bumetanide drip at 1 mg an hour now. Recheck BMP at 1800 hrs. ID: Staph epi bacteremia Enterococcus/Klebsiella pneumonia -Off abx monitor for signs of infections (Fever, WBC) WBC stable -BC and urine cx from 07/11- NG -07/02 BC: NGTS, sputum cx 07/02:normal resp justyn -ID is following- Dr. Brown PRN -Urine culture from 07/28/2018 growing Koki. Repeat cultures sent 08/02/2018 after replacing Moreno 08/10 vancomycin, cefepime times 8 days total per infectious disease recommendation - discontinued 08/10. -Currently on daptomycin and aztreonam per infectious disease since 06/13 Repeat blood cultures, UA 08/10 no growth to date HEME Normocytic anemia Thrombocytopenia -Monitor CBC, coags, Hep PLT is positive. ANNMARIE negative. Hematology is following. Off argatroban drip -s/p 2U PRBCs on 07/16, Hgb 8.8, used for hemoglobin less than 7 -Give 1 unit of PRBC and 1 pack units of platelets today in anticipation of tracheostomy -Stable thrombocytopenia-avoid medications that precipitate thrombocytopenia ENDO: -Sliding scale insulin medium scale aspart insulin every 4 hours. Continue insulin detemir 10 units twice daily TSH 1.26 PROPH: -Bilateral lower extremity SCDs. PPI -Doppler US LE negative DVT 07/02 -Continue enoxaparin 30 mg daily 08/12 for possible PEG tube placement LINES: -Utilize peripheral IVs Level 3 follow-up Code Status: Full code Discussed Condition With: Evita/sister. Care plan discussed and all questions answered
[2018-08-12 07:25] LABS: Alanine Aminotransferase 83 U/L (12-78); Albumin 2.6 g/dL (3.4-5.0); Alkaline Phosphatase 233 U/L (45-117); Anion Gap 9 meq/L (5-15); Aspartate Aminotransferase 72 U/L (15-37); Blood Urea Nitrogen 69 mg/dL (7-18); Carbon Dioxide 23.2 meq/L (21.0-32.0); Chloride 111 meq/L (98-107); Glomerular Filtration Rate 21 mL/min (>89); Glucose,Random 53 mg/dL (74-106); Magnesium 2.2 mg/dL (1.5-2.5); Potassium 4.2 meq/L (3.5-5.1); Sodium 143 meq/L (136-145); Total Protein 6.5 g/dL (6.4-8.2)
[2018-08-12] MEDS: Metoprolol Tartrate 25 MG Tablet PO SCH ×4 (08:05→19:56)
[2018-08-12] MEDS: Docusate Sodium Liq 100 MG/10 ML UDC NG/OG SCH ×2 (08:05→21:06)
[2018-08-12] MEDS: Bisacodyl 10 MG Supp RECTAL SCH (08:05)
[2018-08-12] MEDS: Polyethylene Glycol 3350 17 GM Packet PO SCH ×2 (08:05→21:06)
[2018-08-12] MEDS: Ascorbic Acid 500 MG Tablet PO SCH (08:06)
[2018-08-12] MEDS: Sennosides Liq 8.8 MG/5 ML UDC NG/OG SCH ×2 (08:06→21:05)
[2018-08-12] MEDS: Multivitamin/Minerals Therapeutic Tablet PO SCH (08:06)
[2018-08-12] MEDS: Calcium/Vitamin D 250/125 MG Tablet PO SCH (08:06)
[2018-08-12 08:46] LABS: Tallied Nucleated RBC 1 (0-0)
[2018-08-12 08:48] LABS: Basophilic Stippling Moderate; Howell-Jolly Bodies Present; Lymphocytes 12 % (9-44); Metamyelocytes 1 % (0-1); Monocytes 5 % (0-8); Myelocytes 1 % (0-0); Plasma Cells 1 % (0-0); Promyelocyte 1 % (0-0)
[2018-08-12 08:49] LABS: Ovalocytes 1+
--- NOTE | 2018-08-12 09:34 | MG ---
cc: Carl Senior MD INDICATION: A 73-year-old, shortness of breath, anxiety, asthma, Protonix. Diffuse theta slowing is seen at the 5 Hz to the 5 Hz range and there appears to be bifrontally triphasic appearing waves and over the bilateral central head region, although could be considered. They are consistent throughout the beginning of the recording and are more prominent over the central head region than the temporal head regions and a bit more prominent over the left central head region compared to the right one slightly. Some right upper extremity twitching is noted, which does not particularly correlate with any major change in the background frequently throughout the recording. IMPRESSION: Left greater than right, primarily central bilateral sharply contoured waves, which could represent some bicentral PLEDS versus a metabolic disturbance underlying status epilepticus. Clinical correlation is needed. MD YOLY Buck/keshia/shelia , 07:59 AM , 08:05 AM
[2018-08-12] MEDS ORDERED: Heparin 2,000 UNITS/2 ML Vial (for IV use) IV.FLUSH PRN (09:39)
--- NOTE | 2018-08-12 09:41 | P.PCN ---
Date of procedure: 08/12/18 Pre-op diagnosis: Acute renal failure Post-op diagnosis: same Procedure: DATE: 08/12/2018 Hemodialysis catheter PLACEMENT: Right internal jugular vein. Ultrasound-guided INDICATION: Hemodialysis access CONSENT Informed consent for procedure was obtained from sister/healthcare proxy. DESCRIPTION OF THE PROCEDURE The patient was placed in supine position. The skin was cleansed with Chloraprep. Additional barrier precautions included large sterile drape, sterile gloves, sterile gown, face mask, and hat. 1 % lidocaine was used for local anesthesia. Under direct ultrasound guidance and on initial attempt, the vein was accessed with an introducer needle. The guide wire was advanced and the tract was dilated x4. Using Seldinger technique a 14 Somali 20 cm antimicrobial coated triple-lumen catheter was advanced to a depth of 16 centimeters. The guide wire was removed. All ports had good return of dark venous blood and flushed easily with saline. The central line was secured with 2.0 silk. A sterile dressing with antibiotic disc was applied. ESTIMATED BLOOD LOSS: Minimal COMPLICATIONS: No apparent complications. STAT chest x-ray pending at time of dictation
[2018-08-12] MEDS ORDERED: Albumin Human 25% Inj 100 ML IV.SIG PRN (09:44)
[2018-08-12] MEDS ORDERED: Sod Chloride 0.9% Inj 1,000 ML OTHER PRN ×2 (09:44→10:45)
[2018-08-12] MEDS ORDERED: Acetaminophen 325 MG Tablet PO PRN (09:44)
[2018-08-12] MEDS ORDERED: Gelatin 12 MM/7 MM Topical Foam TOPICAL PRN (09:44)
[2018-08-12] MEDS ORDERED: Sod Chloride 0.9% Inj 1,000 ML IV.CONT PRN (09:44)
[2018-08-12] MEDS ORDERED: Heparin 10,000 UNITS/10 ML Vial (for IV use) OTHER PRN (09:44)
--- NOTE | 2018-08-12 10:22 | XR ---
EXAM DATE: 08/12/2018 10:07 AM EST AGE/SEX: 73 years / Male INDICATIONS: Central line placement today. CLINICAL DATA: This is the patient's subsequent encounter. Patient reports that signs and symptoms h ave been present for 3 weeks and indicates a pain score of 0/10. MEDICAL/SURGICAL HISTORY: . Chronic obstructive pulmonary disease. Hypertension. Asthma. None. COMPARISON: C, CHEST 1V SINGLE AP, 08/12/2018. . FINDINGS: 2 AP portable erect views of the chest were obtained and again demonstrate the tracheostomy tube and nasogastric tube in place. There has been interval placement of a right internal jugular central veno us line with the tip projected over the superior vena cava. There is no pneumothorax. Hazy opacity re danika in the right lung base. The left costophrenic angle appears mildly blunted. The heart size is a t the upper limits of normal. Multiple overlying electrocardiogram leads are present. CONCLUSION: 1. Interval placement of right internal jugular central venous line with no pneumothorax. 2. Stable increased opacity at the right lung base. 3. The left costophrenic angle is mildly blunted most characteristic of a small effusion. Electronically signed by: Klever Bennett MD 08/12/2018 10:21 AM EST
[2018-08-12] MEDS: Bumetanide Inj 25 MG/100 ML BAG IV.CONT SCH (10:29)
--- NOTE | 2018-08-12 13:32 | GIPROC ---
[facility] [address]. 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 TOPICAL ANESTHETIC: none CONSENT: The patient understands the risks and benefits of the procedure and understands that these risks include, but are not limited to: sedation, allergic reaction, infection, perforation and/or bleeding. Alternative means of evaluation and treatment include, among others: physical exam, x-rays, and/or surgical intervention. The patient elects to proceed with this endoscopic procedure. medical equipment was checked for proper function. Hand hygiene and appropriate measures for infection prevention was taken. After the risks, benefits and alternatives of the procedure were thoroughly explained, Informed consent was verified, confirmed and timeout was successfully executed by the treatment team. The patient was anesthetized with topical anesthesia and the Pentax EG-[id number] endoscope was introduced through the mouth and advanced to the second portion of the duodenum. The instrument was slowly withdrawn as the mucosa was fully eevaluated.Reflux esophagitis GRD I . Rest WNL The stomach was then inflated with air, and by a combination of transillumination and manual palpation, the site for the gastrostomy tube placement was selected and marked on the anterior abdominal wall. The skin of the anterior abdomen was surgically prepped and draped with sterile towels. Utilizing strict sterile technique, the selected site was then anesthetized with 1% xylocaine by injection into the skin and subcutaneous tissue. A 1 cm incision was made through the skin and subcutaneous tissue, and the needle/cannula assembly was then passed through the abdominal wall and through the anterior wall of the stomach, maintaining visualization with the endoscope. A snare device previously placed through the instrument channel was then opened and placed around the cannula, the needle was removed, and the insertion wire was passed through the cannula and into the stomach lumen. The snare was then loosened from the cannula, and repositioned to snare the insertion wire. The snare was then pulled up to the endoscope distal tip, and the scope was then withdrawn bringing with it the snare and insertion wire. The insertion wire was then released from the snare, and then loop-attached to the gastrostomy tube. Using the "pull technique", the G-tube was then pulled into place by traction on the insertion wire at the abdominal wall end. The G-tube insertion site was then cleansed once again, and the external bolster was placed over the tube to secure it to the abdominal wall. A sterile dressing was then applied, and the procedure terminated. The gastroscope was then slowly withdrawn and removed. ADVERSE EVENT: There were no complications. IMPRESSIONS: 1. Reflux esophagitis 2. Gastrostomy tube placement RECOMMENDATIONS: Begin feeding tomorrow REPEAT EXAM: Return as needed for EGD Jeffery Nicholas MD eSigned: Jeffery Nicholas MD 08/12/2018 1:31 PM cc: PATIENT NAME: Fan Curry MR#: [id number]
--- NOTE | 2018-08-12 14:10 | P.PNNP ---
Subjective Interval history: Status post tracheostomy on ventilator Physical Exam Vital signs: Vital Signs 08/11/18 14:57 08/11/18 15:00 08/11/18 16:00 Temperature 98.8 F Pulse Rate 91 H 91 H 90 Respiratory Rate 20 20 20 Blood Pressure 120/62 120/61 Pulse Oximetry 100 100 08/11/18 16:11 08/11/18 17:00 08/11/18 18:00 Temperature Pulse Rate 89 93 H Respiratory Rate 20 20 22 Blood Pressure 118/61 Pulse Oximetry 99 100 100 08/11/18 18:01 08/11/18 19:00 08/11/18 19:22 Temperature Pulse Rate 93 H 92 H 93 H Respiratory Rate 21 20 20 Blood Pressure 137/73 128/75 Pulse Oximetry 100 100 100 08/11/18 20:00 08/11/18 20:09 08/11/18 21:00 Temperature 97.5 F L Pulse Rate 98 H 99 H 98 H Respiratory Rate 24 27 H 23 Blood Pressure 107/64 108/63 Pulse Oximetry 100 99 97 08/11/18 22:00 08/11/18 23:00 08/11/18 23:16 Temperature Pulse Rate 95 H 94 H 101 H Respiratory Rate 24 31 H 26 H Blood Pressure 120/61 115/80 Pulse Oximetry 97 98 100 08/11/18 23:36 08/12/18 00:00 08/12/18 01:00 Temperature 96.5 F L Pulse Rate 100 H 99 H 92 H Respiratory Rate 20 26 H 18 Blood Pressure 96/69 L 103/58 L Pulse Oximetry 100 99 99 08/12/18 02:00 08/12/18 03:00 08/12/18 03:25 Temperature Pulse Rate 101 H 94 H 96 H Respiratory Rate 20 23 20 Blood Pressure 105/75 109/61 Pulse Oximetry 99 100 08/12/18 03:56 08/12/18 04:00 08/12/18 05:00 Temperature 97.5 F L Pulse Rate 100 H 100 H Respiratory Rate 20 21 23 Blood Pressure 107/57 L 100/65 Pulse Oximetry 100 100 98 08/12/18 06:00 08/12/18 06:01 08/12/18 07:00 Temperature Pulse Rate 98 H 99 H 102 H Respiratory Rate 20 21 24 Blood Pressure 114/56 L 110/64 Pulse Oximetry 100 100 99 08/12/18 08:00 08/12/18 10:00 08/12/18 10:11 Temperature 98.2 F Pulse Rate 106 H 101 H Respiratory Rate 20 22 Blood Pressure 111/77 Pulse Oximetry 99 98 08/12/18 11:23 08/12/18 12:00 08/12/18 13:29 Temperature 98.4 F Pulse Rate 101 H 103 H Respiratory Rate 22 25 H 20 Blood Pressure 99/72 L Pulse Oximetry 96 99 Intake & Output 08/11/18 08/12/18 08/12/18 18:59 06:59 18:59 Intake Total 2725 / 2725 1000 / 1000 910 / 910 Output Total 1125 / 1125 425 / 425 Balance 1600 / 1600 575 / 575 910 / 910 Weight 78 kg Intake: IV 1800 / 1800 600 / 600 910 / 910 Alburx 5% Inj 500 ML @ 250 mls/ 500 / 500 500 / 500 500 / 500 hr IV.SIG Q12H WOLF Rx#:[id number] Azactam Inj 1,000 MG In NS Inj 100 / 100 100 / 100 200 / 200 100 ML @ 200 mls/hr IV.SIG Q6H WOLF Rx#:[id number] Cubicin Inj 500 MG In NS Inj 100 / 100 100 ML @ 200 mls/hr IV.SIG Q48H WOLF Rx#:[id number] 1/2 Normal Saline Inj 1,000 ML 1000 / 1000 @ Wide Open IV.SIG BOLUS ONE Rx #:[id number] Keppra 1000 mg/100 mL Premix 100 / 100 100 ML @ 400 mls/hr IV.SIG ONCE ONE Rx#:[id number] Keppra Inj 500 MG In NS Inj 100 210 / 210 ML @ 400 mls/hr IV.SIG Q12H WOLF Rx#:[id number] Oral 0 / 0 Tube Feeding 525 / 525 Water Bolus Amount 400 / 400 400 / 400 Anesthesia Amount 0 / 0 Output: Stool 800 / 800 Pleural Fluid 0 / 0 Urine Amount (Catheter) 325 / 325 425 / 425 Indwelling Urethral Catheter 325 / 325 425 / 425 Gastric Drainage 0 / 0 Right Nare Nasogastric Tube 0 / 0 Other: Date of Last Bowel Movement 08/11/18 08/12/18 08/12/18 # Bowel Movements 2 # Incontinent Bowel Movements 2 Narrative: GENERAL: Well-nourished, well-developed. Status post tracheostomy on ventilator SKIN: Warm and dry. No rash. HEENT: Normocephalic. Atraumatic. Pupils equal and round. Mucous membranes pink and moist. NECK: Trachea tracheostomy in place CARDIOVASCULAR: Tachycardia RESPIRATORY: Diminished air entry at the bases on ventilator. GASTROINTESTINAL: Abdomen is slightly distended normoactive bowel sounds x4. MUSCULOSKELETAL: No obvious deformities. 2-3+ BLE edema. NEUROLOGICAL: on ventilator and sedated - Urinary Catheter Management Indwelling Urethral Catheter Cath placed during this visit: yes, but has since been removed by the nurse Reason for continuing: Acute urinary retention Insertion date: 07/14/18 Insertion time: 21:55 Removal date: 08/02/18 Removal time: 07:59 Straight Cath placed during this visit: yes Reason for continuing: Acute urinary retention Insertion date: 08/11/18 Insertion time: 10:48 Condom Cath placed during this visit: no Indwelling Temp Sensing Catheter Cath placed during this visit: yes, but has since been removed by the nurse Reason for continuing: Decision to DC catheter Insertion date: 08/02/18 Insertion time: 08:00 Removal date: 08/09/18 Removal time: 18:30 Assessment and Plan - Assessment (1) Acute renal failure Code(s): N17.9 - Acute kidney failure, unspecified Status: Acute (2) Anasarca Code(s): R60.1 - Generalized edema Status: Acute (3) Abdominal distention Code(s): R14.0 - Abdominal distension (gaseous) Status: Acute (4) Ileus Code(s): K56.7 - Ileus, unspecified Status: Acute - Plan Patient seen again Hemodialysis initiated Continue supportive care He has several infections including UTI, sepsis, pneumonia underlying COPD Chances are that he may require hemodialysis for prolonged period of time Discussed with staff Follow CMP in a.m.
[2018-08-12] MEDS: Heparin 10,000 UNITS/10 ML Vial (for IV use) OTHER PRN (16:21)
--- NOTE | 2018-08-12 17:20 | P.PNPAL ---
Reason for Visit Reason for visit: a. To assist with evaluation and management of symptoms including: pain, dyspnea, agitation b. To assist medical decision maker(s) with: better understanding of current medical conditions; weighing benefits/burdens of medical treatment options; making medical treatment decisions. Subjective Subjective/Interval History: Follow up visit for symptom management of pain, agitation and dyspnea and clarification of medical treatment. Mr. Curry was seen in intensive care, room 519, with no family present. Sedated on mechanical ventilator via trach; FiO2 35%. Follow-up chest x-ray on 08/12/2018 showed stable increased opacity of the right lung base; left costophrenic angle is mildly blunted most characteristic of a small infusion; no pneumothorax status post Vas-Cath and PEG tube placement earlier today. Neurology was consulted on 08/11/2018 for new onset seizures. Negative CT and MRI of head. Patient was started on Keppra 500 mg IV every 12 hours. 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 Patient had acute renal failure earlier in his hospitalization and which resolved. His kidney functioning is deteriorating again; patient became oliguric. Patient has had multiple infections and was treated with vancomycin. He was tried on Albumin and Bumex with only a mild response. Hemodialysis initiated today 08/11/2018. Patient arouses to verbal stimuli; not following commands. Showing no nonverbal signs or symptoms of pain at the time of exam but reportedly grimaces with pain. PRN Percocet 5/325 is available every 4 hours as needed. PRN 24 hour requirement = 2 tablets. Afebrile. Follow-up blood and urine cultures from 08/10/2018 remain negative today. Remains on aztreonam, daptomycin and gentamicin. Family continues to express aggressive medical treatment goals. Patient will need LTAC placement when stable for discharge. Family/Friend Interactions: No family at bedside. See interval history. Advance Directives Living Will: Never completed Health Care Surrogate: Never completed Durable Power of Environmental Research Project Manager: Never completed Objective Vital Signs: Vital Signs 08/11/18 17:00 08/11/18 18:00 08/11/18 18:01 Temperature Pulse Rate 89 93 H 93 H Respiratory Rate 20 22 21 Blood Pressure 118/61 137/73 Pulse Oximetry 100 100 100 08/11/18 19:00 08/11/18 19:22 08/11/18 20:00 Temperature Pulse Rate 92 H 93 H 98 H Respiratory Rate 20 20 24 Blood Pressure 128/75 Pulse Oximetry 100 100 100 08/11/18 20:09 08/11/18 21:00 08/11/18 22:00 Temperature 97.5 F L Pulse Rate 99 H 98 H 95 H Respiratory Rate 27 H 23 24 Blood Pressure 107/64 108/63 120/61 Pulse Oximetry 99 97 97 08/11/18 23:00 08/11/18 23:16 08/11/18 23:36 Temperature Pulse Rate 94 H 101 H 100 H Respiratory Rate 31 H 26 H 20 Blood Pressure 115/80 Pulse Oximetry 98 100 100 08/12/18 00:00 08/12/18 01:00 08/12/18 02:00 Temperature 96.5 F L Pulse Rate 99 H 92 H 101 H Respiratory Rate 26 H 18 20 Blood Pressure 96/69 L 103/58 L 105/75 Pulse Oximetry 99 99 99 08/12/18 03:00 08/12/18 03:25 08/12/18 03:56 Temperature Pulse Rate 94 H 96 H Respiratory Rate 23 20 20 Blood Pressure 109/61 Pulse Oximetry 100 100 08/12/18 04:00 08/12/18 05:00 08/12/18 06:00 Temperature 97.5 F L Pulse Rate 100 H 100 H 98 H Respiratory Rate 21 23 20 Blood Pressure 107/57 L 100/65 Pulse Oximetry 100 98 100 08/12/18 06:01 08/12/18 07:00 08/12/18 08:00 Temperature 98.2 F Pulse Rate 99 H 102 H 106 H Respiratory Rate 21 24 20 Blood Pressure 114/56 L 110/64 111/77 Pulse Oximetry 100 99 99 08/12/18 10:00 08/12/18 10:11 08/12/18 11:23 Temperature Pulse Rate 101 H 101 H Respiratory Rate 22 22 Blood Pressure Pulse Oximetry 98 08/12/18 12:00 08/12/18 13:29 08/12/18 14:00 Temperature 98.4 F Pulse Rate 103 H 97 H Respiratory Rate 25 H 20 Blood Pressure 99/72 L Pulse Oximetry 96 99 08/12/18 15:00 08/12/18 16:00 Temperature Pulse Rate 108 H 110 H Respiratory Rate 23 Blood Pressure Pulse Oximetry Intake & Output 08/11/18 08/12/18 08/12/18 18:59 06:59 18:59 Intake Total 2725 / 2725 1000 / 1000 910 / 910 Output Total 1125 / 1125 425 / 425 Balance 1600 / 1600 575 / 575 910 / 910 Weight 78 kg Intake: IV 1800 / 1800 600 / 600 910 / 910 Alburx 5% Inj 500 ML @ 250 mls/ 500 / 500 500 / 500 500 / 500 hr IV.SIG Q12H WOLF Rx#:[id number] Azactam Inj 1,000 MG In NS Inj 100 / 100 100 / 100 200 / 200 100 ML @ 200 mls/hr IV.SIG Q6H WOLF Rx#:[id number] Cubicin Inj 500 MG In NS Inj 100 / 100 100 ML @ 200 mls/hr IV.SIG Q48H WOLF Rx#:[id number] 1/2 Normal Saline Inj 1,000 ML 1000 / 1000 @ Wide Open IV.SIG BOLUS ONE Rx #:[id number] Keppra 1000 mg/100 mL Premix 100 / 100 100 ML @ 400 mls/hr IV.SIG ONCE ONE Rx#:[id number] Keppra Inj 500 MG In NS Inj 100 210 / 210 ML @ 400 mls/hr IV.SIG Q12H WOLF Rx#:[id number] Oral 0 / 0 Tube Feeding 525 / 525 Water Bolus Amount 400 / 400 400 / 400 Anesthesia Amount 0 / 0 Output: Stool 800 / 800 Pleural Fluid 0 / 0 Urine Amount (Catheter) 325 / 325 425 / 425 Indwelling Urethral Catheter 325 / 325 425 / 425 Gastric Drainage 0 / 0 Right Nare Nasogastric Tube 0 / 0 Other: Date of Last Bowel Movement 08/11/18 08/12/18 08/12/18 # Bowel Movements 2 # Incontinent Bowel Movements 2 Physical Exam: CONSTITUTIONAL/GENERAL: This is an elderly, male patient status post tracheostomy placement in no acute distress TUBES/LINES/DRAINS: PIV, tracheostomy, SCDs, PEG, Vas-Cath SKIN: No jaundice, rashes, or lesions. No wounds seen anteriorly. Skin temperature appropriate. Not diaphoretic. HEAD: Atraumatic. Normocephalic. EYES: Pupils equal and round and reactive. Extraocular motions intact. No scleral icterus. No injection or drainage. Fundi not examined. ENT: Hearing grossly normal. Nose without bleeding or purulent drainage. NECK: Trachea midline. Supple, nontender. No palpable thyroid enlargement or nodularity. CARDIOVASCULAR: Regular rate and rhythm without murmurs, gallops, or rubs. No JVD. Peripheral pulses symmetric. RESPIRATORY/CHEST: Respirations unlabored on 35% FiO2 via T-piece status post tracheostomy. No wheezing, rales or rhonchi GASTROINTESTINAL: Abdomen firm, nontender. No guarding. Bowel sounds present. + PEG tube GENITOURINARY: Without palpable bladder distension. MUSCULOSKELETAL: Extremities without clubbing, cyanosis, or edema. No mottling or clubbing. LYMPHATICS: No palpable cervical or supraclavicular adenopathy. NEUROLOGICAL: Arouses to verbal stimuli; does not follow commands. Withdraws extremities to deep tactile stimuli. PSYCHIATRIC: Unable to assess given level of responsiveness Diagnostic Tests Laboratory: Laboratory Results - last 72 hr 08/09/18 08/10/18 08/10/18 20:37 00:03 04:18 WBC RBC Hgb Hct MCV MCH MCHC RDW Plt Count MPV Prelim Diff (Auto) Neut % (Auto) Lymph % (Auto) [place] % (Auto) Eos % (Auto) Baso % (Auto) Neut # (Auto) Lymph # (Auto) [place] # (Auto) Eos # (Auto) Baso # (Auto) WBC Differential Seg Neuts % (Manual) Band Neuts % (Manual) Lymphocytes % (Manual) Monocytes % (Manual) Eosinophils % (Manual) Metamyelocytes % (Man) Myelocytes % (Man) Promyelocytes % (Man) Plasma Cell % (Manual) Abs Neuts (Manual) Nucleated RBCs/100 WBC Differential Comment Platelet Estimate Platelet Morphology Basophilic Stippling Ovalocytes Carlson-Moroni Bodies PT INR Puncture Site Patient Temperature O2 Saturation ABG pH ABG pCO2 ABG pO2 ABG HCO3 ABG O2 Content ABG Base Excess ABG Methemoglobin Raymon Test Hemoglobin Carboxyhemoglobin O2 Delivery Device Vent Setting Inspired O2 Critical Value Sodium 145 Potassium 4.4 Chloride 111 H Carbon Dioxide 27.6 Anion Gap 6 BUN 53 H Creatinine 2.46 H Estimated GFR 32 L POC Glucose 114 H 152 H Random Glucose 137 H Calcium 7.6 L Phosphorus Magnesium 2.1 Total Bilirubin 0.4 AST 67 H ALT 61 Alkaline Phosphatase 188 H Ammonia Total Protein 6.4 D Albumin 1.9 L Vitamin B12 TSH Urine Color Urine Clarity Urine pH Ur Specific [place] Urine Protein Urine Glucose (UA) Urine Ketones Urine Occult Blood Urine Nitrate Urine Bilirubin Urine Urobilinogen Ur Leukocyte Esterase Urine RBC Urine WBC Urine WBC Clumps Ur Squamous Epith Cells Urine Bacteria Urine Mucus Urine Yeast Ur Yeast w Hyphae Micro UA Comment Ur Microscopic Review Urine Culture Comments Urine Eosinophils Ur Random Creatinine Ur Random Sodium Random Vancomycin 31.7 Blood Type Antibody Screen MTS Gel Crossmatch 08/10/18 08/10/18 08/10/18 04:18 04:29 07:30 WBC 12.6 H RBC 2.30 L Hgb 7.0 L Hct 22.0 L MCV 95.7 MCH 30.2 MCHC 31.6 L RDW 17.2 Plt Count 160 MPV 9.3 Prelim Diff (Auto) Neut % (Auto) Lymph % (Auto) [place] % (Auto) Eos % (Auto) Baso % (Auto) Neut # (Auto) Lymph # (Auto) [place] # (Auto) Eos # (Auto) Baso # (Auto) WBC Differential Seg Neuts % (Manual) Band Neuts % (Manual) Lymphocytes % (Manual) Monocytes % (Manual) Eosinophils % (Manual) Metamyelocytes % (Man) Myelocytes % (Man) Promyelocytes % (Man) Plasma Cell % (Manual) Abs Neuts (Manual) Nucleated RBCs/100 WBC Differential Comment Platelet Estimate Platelet Morphology Basophilic Stippling Ovalocytes Carlson-Moroni Bodies PT INR Puncture Site Right radial Patient Temperature 98.6 O2 Saturation 96 ABG pH 7.29 L* ABG pCO2 58 H* ABG pO2 133 H ABG HCO3 27 H ABG O2 Content 9.7 L ABG Base Excess 0.7 ABG Methemoglobin 1.7 Raymon Test Present Hemoglobin 7.0 L* Carboxyhemoglobin 1.3 O2 Delivery Device Ventilator Vent Setting Prvc16/550/1.0/+5 Inspired O2 40 Critical Value Yes Sodium Potassium Chloride Carbon Dioxide Anion Gap BUN Creatinine Estimated GFR POC Glucose 167 H Random Glucose Calcium Phosphorus Magnesium Total Bilirubin AST ALT Alkaline Phosphatase Ammonia Total Protein Albumin Vitamin B12 TSH Urine Color Urine Clarity Urine pH Ur Specific [place] Urine Protein Urine Glucose (UA) Urine Ketones Urine Occult Blood Urine Nitrate Urine Bilirubin Urine Urobilinogen Ur Leukocyte Esterase Urine RBC Urine WBC Urine WBC Clumps Ur Squamous Epith Cells Urine Bacteria Urine Mucus Urine Yeast Ur Yeast w Hyphae Micro UA Comment Ur Microscopic Review Urine Culture Comments Urine Eosinophils Ur Random Creatinine Ur Random Sodium Random Vancomycin Blood Type Antibody Screen MTS Gel Crossmatch 08/10/18 08/10/18 08/10/18 07:35 08:45 08:45 WBC RBC Hgb Hct MCV MCH MCHC RDW Plt Count MPV Prelim Diff (Auto) Neut % (Auto) Lymph % (Auto) [place] % (Auto) Eos % (Auto) Baso % (Auto) Neut # (Auto) Lymph # (Auto) [place] # (Auto) Eos # (Auto) Baso # (Auto) WBC Differential Seg Neuts % (Manual) Band Neuts % (Manual) Lymphocytes % (Manual) Monocytes % (Manual) Eosinophils % (Manual) Metamyelocytes % (Man) Myelocytes % (Man) Promyelocytes % (Man) Plasma Cell % (Manual) Abs Neuts (Manual) Nucleated RBCs/100 WBC Differential Comment Platelet Estimate Platelet Morphology Basophilic Stippling Ovalocytes Carlson-Moroni Bodies PT INR Puncture Site Patient Temperature O2 Saturation ABG pH ABG pCO2 ABG pO2 ABG HCO3 ABG O2 Content ABG Base Excess ABG Methemoglobin Raymon Test Hemoglobin Carboxyhemoglobin O2 Delivery Device Vent Setting Inspired O2 Critical Value Sodium Potassium Chloride Carbon Dioxide Anion Gap BUN Creatinine Estimated GFR POC Glucose 177 H Random Glucose Calcium Phosphorus Magnesium Total Bilirubin AST ALT Alkaline Phosphatase Ammonia Total Protein Albumin Vitamin B12 TSH Urine Color Yellow Urine Clarity Cloudy H Urine pH 5.0 Ur Specific [place] 1.014 Urine Protein 100 H Urine Glucose (UA) Negative Urine Ketones Trace H Urine Occult Blood Moderate H Urine Nitrate Negative Urine Bilirubin Negative Urine Urobilinogen Less than 2 Ur Leukocyte Esterase Moderate H Urine RBC 26 H Urine WBC Urine WBC Clumps Few H Ur Squamous Epith Cells <1 Urine Bacteria Occasional H Urine Mucus Few H Urine Yeast Few H Ur Yeast w Hyphae Rare H Micro UA Comment Culture indicated Ur Microscopic Review Not Reportable Urine Culture Comments Culture indicated Urine Eosinophils Ur Random Creatinine 49 Ur Random Sodium 56 Random Vancomycin Blood Type Antibody Screen MTS Gel Crossmatch 08/10/18 08/10/18 08/10/18 08:45 10:51 11:05 WBC RBC Hgb Hct MCV MCH MCHC RDW Plt Count MPV Prelim Diff (Auto) Neut % (Auto) Lymph % (Auto) [place] % (Auto) Eos % (Auto) Baso % (Auto) Neut # (Auto) Lymph # (Auto) [place] # (Auto) Eos # (Auto) Baso # (Auto) WBC Differential Seg Neuts % (Manual) Band Neuts % (Manual) Lymphocytes % (Manual) Monocytes % (Manual) Eosinophils % (Manual) Metamyelocytes % (Man) Myelocytes % (Man) Promyelocytes % (Man) Plasma Cell % (Manual) Abs Neuts (Manual) Nucleated RBCs/100 WBC Differential Comment Platelet Estimate Platelet Morphology Basophilic Stippling Ovalocytes Carlson-Moroni Bodies PT INR Puncture Site Patient Temperature O2 Saturation ABG pH ABG pCO2 ABG pO2 ABG HCO3 ABG O2 Content ABG Base Excess ABG Methemoglobin Raymon Test Hemoglobin Carboxyhemoglobin O2 Delivery Device Vent Setting Inspired O2 Critical Value Sodium Potassium Chloride Carbon Dioxide Anion Gap BUN Creatinine Estimated GFR POC Glucose 189 H Random Glucose Calcium Phosphorus Magnesium Total Bilirubin AST ALT Alkaline Phosphatase Ammonia Total Protein Albumin Vitamin B12 TSH Urine Color Urine Clarity Urine pH Ur Specific [place] Urine Protein Urine Glucose (UA) Urine Ketones Urine Occult Blood Urine Nitrate Urine Bilirubin Urine Urobilinogen Ur Leukocyte Esterase Urine RBC Urine WBC Urine WBC Clumps Ur Squamous Epith Cells Urine Bacteria Urine Mucus Urine Yeast Ur Yeast w Hyphae Micro UA Comment Ur Microscopic Review Urine Culture Comments Urine Eosinophils None seen Ur Random Creatinine Ur Random Sodium Random Vancomycin Blood Type O Positive Antibody Screen Negative MTS Gel Crossmatch See Detail 08/10/18 08/10/18 08/11/18 15:25 19:40 00:01 WBC RBC Hgb Hct MCV MCH MCHC RDW Plt Count MPV Prelim Diff (Auto) Neut % (Auto) Lymph % (Auto) [place] % (Auto) Eos % (Auto) Baso % (Auto) Neut # (Auto) Lymph # (Auto) [place] # (Auto) Eos # (Auto) Baso # (Auto) WBC Differential Seg Neuts % (Manual) Band Neuts % (Manual) Lymphocytes % (Manual) Monocytes % (Manual) Eosinophils % (Manual) Metamyelocytes % (Man) Myelocytes % (Man) Promyelocytes % (Man) Plasma Cell % (Manual) Abs Neuts (Manual) Nucleated RBCs/100 WBC Differential Comment Platelet Estimate Platelet Morphology Basophilic Stippling Ovalocytes Carlson-Moroni Bodies PT INR Puncture Site Patient Temperature O2 Saturation ABG pH ABG pCO2 ABG pO2 ABG HCO3 ABG O2 Content ABG Base Excess ABG Methemoglobin Raymon Test Hemoglobin Carboxyhemoglobin O2 Delivery Device Vent Setting Inspired O2 Critical Value Sodium Potassium Chloride Carbon Dioxide Anion Gap BUN Creatinine Estimated GFR POC Glucose 159 H 141 H 124 H Random Glucose Calcium Phosphorus Magnesium Total Bilirubin AST ALT Alkaline Phosphatase Ammonia Total Protein Albumin Vitamin B12 TSH Urine Color Urine Clarity Urine pH Ur Specific [place] Urine Protein Urine Glucose (UA) Urine Ketones Urine Occult Blood Urine Nitrate Urine Bilirubin Urine Urobilinogen Ur Leukocyte Esterase Urine RBC Urine WBC Urine WBC Clumps Ur Squamous Epith Cells Urine Bacteria Urine Mucus Urine Yeast Ur Yeast w Hyphae Micro UA Comment Ur Microscopic Review Urine Culture Comments Urine Eosinophils Ur Random Creatinine Ur Random Sodium Random Vancomycin Blood Type Antibody Screen MTS Gel Crossmatch 08/11/18 08/11/18 08/11/18 04:02 06:11 06:11 WBC 11.0 RBC 2.52 L Hgb 7.6 L Hct 23.3 L MCV 92.5 MCH 30.1 MCHC 32.5 RDW 17.1 Plt Count 141 L MPV 9.1 Prelim Diff (Auto) Slide review pending Neut % (Auto) 79.4 H Lymph % (Auto) 12.5 [place] % (Auto) 7.2 Eos % (Auto) 0.7 Baso % (Auto) 0.2 Neut # (Auto) 8.8 H Lymph # (Auto) 1.4 [place] # (Auto) 0.8 Eos # (Auto) 0.1 Baso # (Auto) 0.0 WBC Differential Manual diff final Seg Neuts % (Manual) 78 H Band Neuts % (Manual) 7 H Lymphocytes % (Manual) 8 L Monocytes % (Manual) 6 Eosinophils % (Manual) 1 Metamyelocytes % (Man) Myelocytes % (Man) Promyelocytes % (Man) Plasma Cell % (Manual) Abs Neuts (Manual) 9.4 H Nucleated RBCs/100 WBC 1 H Differential Comment . Platelet Estimate Low L Platelet Morphology Normal Basophilic Stippling Ovalocytes Carlson-Moroni Bodies PT INR Puncture Site Patient Temperature O2 Saturation ABG pH ABG pCO2 ABG pO2 ABG HCO3 ABG O2 Content ABG Base Excess ABG Methemoglobin Raymon Test Hemoglobin Carboxyhemoglobin O2 Delivery Device Vent Setting Inspired O2 Critical Value Sodium 146 H Potassium 4.3 Chloride 111 H Carbon Dioxide 24.7 Anion Gap 10 BUN 63 H Creatinine 3.08 H Estimated GFR 24 L POC Glucose 145 H Random Glucose 154 H Calcium 7.8 L Phosphorus 2.5 Magnesium 2.1 Total Bilirubin 0.5 AST 130 H ALT 109 H Alkaline Phosphatase 279 H Ammonia Total Protein 6.4 Albumin 2.2 L Vitamin B12 1240 H TSH 1.260 Urine Color Urine Clarity Urine pH Ur Specific [place] Urine Protein Urine Glucose (UA) Urine Ketones Urine Occult Blood Urine Nitrate Urine Bilirubin Urine Urobilinogen Ur Leukocyte Esterase Urine RBC Urine WBC Urine WBC Clumps Ur Squamous Epith Cells Urine Bacteria Urine Mucus Urine Yeast Ur Yeast w Hyphae Micro UA Comment Ur Microscopic Review Urine Culture Comments Urine Eosinophils Ur Random Creatinine Ur Random Sodium Random Vancomycin Blood Type Antibody Screen MTS Gel Crossmatch 08/11/18 08/11/18 08/11/18 06:11 08:01 11:36 WBC RBC Hgb Hct MCV MCH MCHC RDW Plt Count MPV Prelim Diff (Auto) Neut % (Auto) Lymph % (Auto) [place] % (Auto) Eos % (Auto) Baso % (Auto) Neut # (Auto) Lymph # (Auto) [place] # (Auto) Eos # (Auto) Baso # (Auto) WBC Differential Seg Neuts % (Manual) Band Neuts % (Manual) Lymphocytes % (Manual) Monocytes % (Manual) Eosinophils % (Manual) Metamyelocytes % (Man) Myelocytes % (Man) Promyelocytes % (Man) Plasma Cell % (Manual) Abs Neuts (Manual) Nucleated RBCs/100 WBC Differential Comment Platelet Estimate Platelet Morphology Basophilic Stippling Ovalocytes Carlson-Moroni Bodies PT INR Puncture Site Patient Temperature O2 Saturation ABG pH ABG pCO2 ABG pO2 ABG HCO3 ABG O2 Content ABG Base Excess ABG Methemoglobin Raymon Test Hemoglobin Carboxyhemoglobin O2 Delivery Device Vent Setting Inspired O2 Critical Value Sodium Potassium Chloride Carbon Dioxide Anion Gap BUN Creatinine Estimated GFR POC Glucose 177 H 133 H Random Glucose Calcium Phosphorus Magnesium Total Bilirubin AST ALT Alkaline Phosphatase Ammonia 43 H Total Protein Albumin Vitamin B12 TSH Urine Color Urine Clarity Urine pH Ur Specific [place] Urine Protein Urine Glucose (UA) Urine Ketones Urine Occult Blood Urine Nitrate Urine Bilirubin Urine Urobilinogen Ur Leukocyte Esterase Urine RBC Urine WBC Urine WBC Clumps Ur Squamous Epith Cells Urine Bacteria Urine Mucus Urine Yeast Ur Yeast w Hyphae Micro UA Comment Ur Microscopic Review Urine Culture Comments Urine Eosinophils Ur Random Creatinine Ur Random Sodium Random Vancomycin Blood Type Antibody Screen MTS Gel Crossmatch 08/11/18 08/11/18 08/11/18 15:36 16:16 17:58 WBC RBC Hgb Hct MCV MCH MCHC RDW Plt Count MPV Prelim Diff (Auto) Neut % (Auto) Lymph % (Auto) [place] % (Auto) Eos % (Auto) Baso % (Auto) Neut # (Auto) Lymph # (Auto) [place] # (Auto) Eos # (Auto) Baso # (Auto) WBC Differential Seg Neuts % (Manual) Band Neuts % (Manual) Lymphocytes % (Manual) Monocytes % (Manual) Eosinophils % (Manual) Metamyelocytes % (Man) Myelocytes % (Man) Promyelocytes % (Man) Plasma Cell % (Manual) Abs Neuts (Manual) Nucleated RBCs/100 WBC Differential Comment Platelet Estimate Platelet Morphology Basophilic Stippling Ovalocytes Carlson-Moroni Bodies PT 11.9 H INR 1.2 Puncture Site Patient Temperature O2 Saturation ABG pH ABG pCO2 ABG pO2 ABG HCO3 ABG O2 Content ABG Base Excess ABG Methemoglobin Raymon Test Hemoglobin Carboxyhemoglobin O2 Delivery Device Vent Setting Inspired O2 Critical Value Sodium 145 Potassium 4.5 Chloride 112 H Carbon Dioxide 24.6 Anion Gap 8 BUN 69 H Creatinine 3.35 H Estimated GFR 22 L POC Glucose 112 H Random Glucose 93 Calcium 8.0 L Phosphorus Magnesium Total Bilirubin AST ALT Alkaline Phosphatase Ammonia Total Protein Albumin Vitamin B12 TSH Urine Color Urine Clarity Urine pH Ur Specific [place] Urine Protein Urine Glucose (UA) Urine Ketones Urine Occult Blood Urine Nitrate Urine Bilirubin Urine Urobilinogen Ur Leukocyte Esterase Urine RBC Urine WBC Urine WBC Clumps Ur Squamous Epith Cells Urine Bacteria Urine Mucus Urine Yeast Ur Yeast w Hyphae Micro UA Comment Ur Microscopic Review Urine Culture Comments Urine Eosinophils Ur Random Creatinine Ur Random Sodium Random Vancomycin Blood Type Antibody Screen MTS Gel Crossmatch 08/11/18 08/12/18 08/12/18 19:34 00:04 03:27 WBC RBC Hgb Hct MCV MCH MCHC RDW Plt Count MPV Prelim Diff (Auto) Neut % (Auto) Lymph % (Auto) [place] % (Auto) Eos % (Auto) Baso % (Auto) Neut # (Auto) Lymph # (Auto) [place] # (Auto) Eos # (Auto) Baso # (Auto) WBC Differential Seg Neuts % (Manual) Band Neuts % (Manual) Lymphocytes % (Manual) Monocytes % (Manual) Eosinophils % (Manual) Metamyelocytes % (Man) Myelocytes % (Man) Promyelocytes % (Man) Plasma Cell % (Manual) Abs Neuts (Manual) Nucleated RBCs/100 WBC Differential Comment Platelet Estimate Platelet Morphology Basophilic Stippling Ovalocytes Carlson-Moroni Bodies PT INR Puncture Site Patient Temperature O2 Saturation ABG pH ABG pCO2 ABG pO2 ABG HCO3 ABG O2 Content ABG Base Excess ABG Methemoglobin Raymon Test Hemoglobin Carboxyhemoglobin O2 Delivery Device Vent Setting Inspired O2 Critical Value Sodium Potassium Chloride Carbon Dioxide Anion Gap BUN Creatinine Estimated GFR POC Glucose 114 H 97 79 Random Glucose Calcium Phosphorus Magnesium Total Bilirubin AST ALT Alkaline Phosphatase [place] Total Protein Albumin Vitamin B12 TSH Urine Color Urine Clarity Urine pH Ur Specific [place] Urine Protein Urine Glucose (UA) Urine Ketones Urine Occult Blood Urine Nitrate Urine Bilirubin Urine Urobilinogen Ur Leukocyte Esterase Urine RBC Urine WBC Urine WBC Clumps Ur Squamous Epith Cells Urine Bacteria Urine Mucus Urine Yeast Ur Yeast w Hyphae Micro UA Comment Ur Microscopic Review Urine Culture Comments Urine Eosinophils Ur Random Creatinine Ur Random Sodium Random Vancomycin Blood Type Antibody Screen MTS Gel Crossmatch 08/12/18 08/12/18 08/12/18 05:59 05:59 06:24 WBC 7.2 RBC 2.43 L Hgb 7.5 L Hct 22.4 L MCV 91.9 MCH 30.9 MCHC 33.7 RDW 17.0 Plt Count 120 L MPV 9.8 Prelim Diff (Auto) Slide review pending Neut % (Auto) 74.6 H Lymph % (Auto) 14.6 [place] % (Auto) 9.5 H Eos % (Auto) 1.0 Baso % (Auto) 0.3 Neut # (Auto) 5.4 Lymph # (Auto) 1.1 [place] # (Auto) 0.7 Eos # (Auto) 0.1 Baso # (Auto) 0.0 WBC Differential Manual diff final Seg Neuts % (Manual) 77 H Band Neuts % (Manual) 2 Lymphocytes % (Manual) 12 Monocytes % (Manual) 5 Eosinophils % (Manual) Metamyelocytes % (Man) 1 Myelocytes % (Man) 1 H Promyelocytes % (Man) 1 H Plasma Cell % (Manual) 1 H Abs Neuts (Manual) 5.9 Nucleated RBCs/100 WBC 1 H Differential Comment . Platelet Estimate Low L Platelet Morphology Enlarged H Basophilic Stippling Moderate H Ovalocytes 1+ H Carlson-Moroni Bodies Present H PT INR Puncture Site Patient Temperature O2 Saturation ABG pH ABG pCO2 ABG pO2 ABG HCO3 ABG O2 Content ABG Base Excess ABG Methemoglobin Raymon Test Hemoglobin Carboxyhemoglobin O2 Delivery Device Vent Setting Inspired O2 Critical Value Sodium 143 Potassium 4.2 Chloride 111 H Carbon Dioxide 23.2 Anion Gap 9 BUN 69 H Creatinine 3.47 H Estimated GFR 21 L POC Glucose 65 L Random Glucose 53 L Calcium 8.0 L Phosphorus 3.0 Magnesium 2.2 Total Bilirubin 0.5 AST 72 H ALT 83 H Alkaline Phosphatase 233 H Ammonia Total Protein 6.5 Albumin 2.6 L Vitamin B12 TSH Urine Color Urine Clarity Urine pH Ur Specific [place] Urine Protein Urine Glucose (UA) Urine Ketones Urine Occult Blood Urine Nitrate Urine Bilirubin Urine Urobilinogen Ur Leukocyte Esterase Urine RBC Urine WBC Urine WBC Clumps Ur Squamous Epith Cells Urine Bacteria Urine Mucus Urine Yeast Ur Yeast w Hyphae Micro UA Comment Ur Microscopic Review Urine Culture Comments Urine Eosinophils Ur Random Creatinine Ur Random Sodium Random Vancomycin Blood Type Antibody Screen MTS Gel Crossmatch 08/12/18 08/12/18 07:48 11:54 WBC RBC Hgb Hct MCV MCH MCHC RDW Plt Count MPV Prelim Diff (Auto) Neut % (Auto) Lymph % (Auto) [place] % (Auto) Eos % (Auto) Baso % (Auto) Neut # (Auto) Lymph # (Auto) [place] # (Auto) Eos # (Auto) Baso # (Auto) WBC Differential Seg Neuts % (Manual) Band Neuts % (Manual) Lymphocytes % (Manual) Monocytes % (Manual) Eosinophils % (Manual) Metamyelocytes % (Man) Myelocytes % (Man) Promyelocytes % (Man) Plasma Cell % (Manual) Abs Neuts (Manual) Nucleated RBCs/100 WBC Differential Comment Platelet Estimate Platelet Morphology Basophilic Stippling Ovalocytes Carlson-Moroni Bodies PT INR Puncture Site Patient Temperature O2 Saturation ABG pH ABG pCO2 ABG pO2 ABG HCO3 ABG O2 Content ABG Base Excess ABG Methemoglobin Raymon Test Hemoglobin Carboxyhemoglobin O2 Delivery Device Vent Setting Inspired O2 Critical Value Sodium Potassium Chloride Carbon Dioxide Anion Gap BUN Creatinine Estimated GFR POC Glucose 110 95 Random Glucose Calcium Phosphorus Magnesium Total Bilirubin AST ALT Alkaline Phosphatase Ammonia Total Protein Albumin Vitamin B12 TSH Urine Color Urine Clarity Urine pH Ur Specific [place] Urine Protein Urine Glucose (UA) Urine Ketones Urine Occult Blood Urine Nitrate Urine Bilirubin Urine Urobilinogen Ur Leukocyte Esterase Urine RBC Urine WBC Urine WBC Clumps Ur Squamous Epith Cells Urine Bacteria Urine Mucus Urine Yeast Ur Yeast w Hyphae Micro UA Comment Ur Microscopic Review Urine Culture Comments Urine Eosinophils Ur Random Creatinine Ur Random Sodium Random Vancomycin Blood Type Antibody Screen MTS Gel Crossmatch Result Diagrams: 08/12/18 05:59 08/12/18 05:59 Microbiology: Microbiology 08/10/18 10:30 Aerobic Blood Culture - Preliminary Blood - Peripheral No growth in 2 days Anaerobic Blood Culture - Preliminary No growth in 2 days 08/10/18 10:51 Aerobic Blood Culture - Preliminary Blood - Peripheral No growth in 2 days Anaerobic Blood Culture - Preliminary No growth in 2 days 08/10/18 08:45 Urine Culture - Final Clean Catch Urine 10-50,000 cfu/mL mixed gram positive justyn (probable contaminants) Imaging: Abdomen Ultrasound 06/21/18 00:00 CONCLUSION: 1. No ascites is identified within the abdomen. Chest CTA 07/02/18 00:00 CONCLUSION: 1. No pulmonary embolus. 2. Diffuse but basilar predominant bilateral airspace disease. 3. Endotracheal and endobronchial secretions are demonstrated. 4. Moderate emphysema. 5. Left ventricular hypertrophy. Abdomen/Pelvis CT 07/10/18 08:31 CONCLUSION: 1. There is gas and fluid distending the colon. The patient has a rectal tube in place however the rectal tube is kinked back on itself and occluded. The overall size of the colon has mildly increased when compared to previous exam. The small bowel is normal in caliber. 2. Interval development of a small left basilar effusion and atelectasis. Venous Doppler Study 07/15/18 00:00 CONCLUSION: 1. Limited suboptimal examination. 2. Nonocclusive thrombus in the jugular vein. Head MRI 08/10/18 00:00 CONCLUSION: No acute intracranial abnormality is identified. Abdomen/Bladder Ultrasound 08/10/18 08:23 CONCLUSION: 1. Normal sonographic evaluation of the kidneys. 2. No evidence of hydronephrosis. 3. Decompressed bladder. Head CT 08/10/18 15:53 CONCLUSION: Stable noncontrast head CT. No acute intracranial abnormality is identified. . Abdomen X-Ray 08/11/18 00:00 CONCLUSION: Relative paucity of bowel gas with is a gastric tube remain in place. There is no distended bowel loops identified. Chest X-Ray 08/12/18 09:39 CONCLUSION: 1. Interval placement of right internal jugular central venous line with no pneumothorax. 2. Stable increased opacity at the right lung base. 3. The left costophrenic angle is mildly blunted most characteristic of a small effusion. Procedures: 06/25/2018: EGD 06/26/2018: Endotracheal intubation 06/26/2018: Right IJ Central line placement 06/29/2018: Extubation 07/02/2018: Reintubation 07/02/2018: Left IJ central line placement 07/02/2018: Colonoscopy 07/06/2018: Colonoscopy 07/07/2018: Extubation 07/10/2018: Colonoscopy 07/22/2018: Reintubation 07/24/2018: Extubation 07/26/2018: Reintubation 08/02/2018: Tracheostomy 08/12/2018: PEG tube 08/12/2018: Vas-Cath placement Assessment and Plan - Disease Oriented Problem List (1) Acute exacerbation of chronic obstructive pulmonary disease (COPD) (2) Acute renal failure (3) Abdominal distention (4) Ileus (5) Sinusitis (6) Thrombocytopenia 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 - Symptom Scale (1) Pain 0-10 Scale: Unable to quantify (2) Dyspnea 0-10 Scale: Unable to quantify (3) Agitation 0-10 Scale: Unable to quantify Pertinent Non-Medical Issues: Psychosocial: Patient is a . He is a . He has been with his girlfriend (Mariam), who is also his caregiver, for approximately 15 years Spiritual: Yarsani mark Legal: Healthcare designation form completed 07/01/2018 designates patient's sister (Evita) as the healthcare surrogate decision-maker. Evita was out of town for 2 weeks and on reachable; she returned today 08/06/2018. During her absence, provisional healthcare proxy decision making reverted to the patient's daughter. Ethical issues impacting care: No known ethical issues impacting care at this time Important Contacts: Stephanie Craig, daughter: [phone] Felicitas Hood, other relationship: [phone] Sara Maldonado, sister: [phone] Evita Zavala, sister: [phone] Prognosis: Patient is an elderly male with severe COPD who was admitted with a COPD exacerbation. He has been in and out of the intensive care unit with recurrent respiratory failure. Status post tracheostomy placement on 08/02/2018. Given patient's advanced age, complex medical history and poor performance status, he will remain at risk for ongoing decline and complications. Code Status: Full Code Plan: * FULL CODE * Decision making: Healthcare surrogate designation form completed 07/01/2018 designates the patient's sister, Evita Og, as the healthcare surrogate decision-maker. However, she has been out of town for approximately 2 weeks and will returning tomorrow. During Evita's absence, provisional healthcare proxy decision making reverted back to the patient daughter. * Discussed patient with bedside RN (Ruchi) as well as Dr. Hugo * GOALS REMAIN AGGRESSIVE status post PEG tube and Vas-Cath placement earlier today 08/12/2018. Renal functioning worsening; patient oliguric. Hemodialysis initiated today as well. * Symptom management: Pain: Multifactorial. Contributing factors include chronic back pain, abdominal distention, colonic ileus, infection, invasive lines, intubation. Oxycodone/acetaminophen (5/325mg) is available q4 hours PRN for pain rated 6-10. Patient has has 2 doses oxycodone/acetaminophen in the past 24hours. PRN acetaminophen is also ordered. Dyspnea: Respirations unlabored on 35% FiO2 via T-piece status post tracheostomy on 08/02/2018. Follow-up chest x-ray on 08/12/2018 showed stable increased opacity of the right lung base; left costophrenic angle is mildly blunted most characteristic of a small infusion; no pneumothorax . On antibiotics, albuterol nebulizers (scheduled and PRN), Pulmicort every 12 hours and Solu-Medrol Daily. Agitation: Symptoms resolved at this time. Versed infusion is available as needed. * Palliative care will continue to follow this patient throughout his hospitalization to establish trust, assist with symptom management and clarification of medical treatment goals. .
--- NOTE | 2018-08-12 18:39 | P.PNPL ---
Subjective Interval history: 73 YOAA male with COPD, 02 dependent Follows at [facility] Admitted with AMS, COPD exac. On Vent via trach Had vas ath and HD had PEG placed Sister at [facility] Physical Exam Vital signs: Vital Signs 08/11/18 19:00 08/11/18 19:22 08/11/18 20:00 Temperature Pulse Rate 92 H 93 H 98 H Respiratory Rate 20 20 24 Blood Pressure 128/75 Pulse Oximetry 100 100 100 08/11/18 20:09 08/11/18 21:00 08/11/18 22:00 Temperature 97.5 F L Pulse Rate 99 H 98 H 95 H Respiratory Rate 27 H 23 24 Blood Pressure 107/64 108/63 120/61 Pulse Oximetry 99 97 97 08/11/18 23:00 08/11/18 23:16 08/11/18 23:36 Temperature Pulse Rate 94 H 101 H 100 H Respiratory Rate 31 H 26 H 20 Blood Pressure 115/80 Pulse Oximetry 98 100 100 08/12/18 00:00 08/12/18 01:00 08/12/18 02:00 Temperature 96.5 F L Pulse Rate 99 H 92 H 101 H Respiratory Rate 26 H 18 20 Blood Pressure 96/69 L 103/58 L 105/75 Pulse Oximetry 99 99 99 08/12/18 03:00 08/12/18 03:25 08/12/18 03:56 Temperature Pulse Rate 94 H 96 H Respiratory Rate 23 20 20 Blood Pressure 109/61 Pulse Oximetry 100 100 08/12/18 04:00 08/12/18 05:00 08/12/18 06:00 Temperature 97.5 F L Pulse Rate 100 H 100 H 98 H Respiratory Rate 21 23 20 Blood Pressure 107/57 L 100/65 Pulse Oximetry 100 98 100 08/12/18 06:01 08/12/18 07:00 08/12/18 08:00 Temperature 98.2 F Pulse Rate 99 H 102 H 106 H Respiratory Rate 21 24 20 Blood Pressure 114/56 L 110/64 111/77 Pulse Oximetry 100 99 99 08/12/18 10:00 08/12/18 10:11 08/12/18 11:23 Temperature Pulse Rate 101 H 101 H Respiratory Rate 22 22 Blood Pressure Pulse Oximetry 98 08/12/18 12:00 08/12/18 13:29 08/12/18 14:00 Temperature 98.4 F Pulse Rate 103 H 97 H Respiratory Rate 25 H 20 Blood Pressure 99/72 L Pulse Oximetry 96 99 08/12/18 15:00 08/12/18 16:00 08/12/18 16:52 Temperature 98.3 F Pulse Rate 108 H 110 H Respiratory Rate 23 24 26 H Blood Pressure 96/55 L Pulse Oximetry 97 97 Intake & Output 08/11/18 08/12/18 08/12/18 18:59 06:59 18:59 Intake Total 2725 / 2725 1000 / 1000 1010 / 1010 Output Total 1125 / 1125 425 / 425 Balance 1600 / 1600 575 / 575 1010 / 1010 Weight 78 kg Intake: IV 1800 / 1800 600 / 600 1010 / 1010 Alburx 5% Inj 500 ML @ 250 mls/ 500 / 500 500 / 500 500 / 500 hr IV.SIG Q12H WOLF Rx#:[id number] Azactam Inj 1,000 MG In NS Inj 100 / 100 100 / 100 300 / 300 100 ML @ 200 mls/hr IV.SIG Q6H WOLF Rx#:[id number] Cubicin Inj 500 MG In NS Inj 100 / 100 100 ML @ 200 mls/hr IV.SIG Q48H WOLF Rx#:[id number] 1/2 Normal Saline Inj 1,000 ML 1000 / 1000 @ Wide Open IV.SIG BOLUS ONE Rx #:[id number] Keppra 1000 mg/100 mL Premix 100 / 100 100 ML @ 400 mls/hr IV.SIG ONCE ONE Rx#:[id number] Keppra Inj 500 MG In NS Inj 100 210 / 210 ML @ 400 mls/hr IV.SIG Q12H WOLF Rx#:[id number] Oral 0 / 0 Tube Feeding 525 / 525 Water Bolus Amount 400 / 400 400 / 400 Anesthesia Amount 0 / 0 Output: Stool 800 / 800 Pleural Fluid 0 / 0 Urine Amount (Catheter) 325 / 325 425 / 425 Indwelling Urethral Catheter 325 / 325 425 / 425 Gastric Drainage 0 / 0 Right Nare Nasogastric Tube 0 / 0 Other: Date of Last Bowel Movement 08/11/18 08/12/18 08/12/18 # Bowel Movements 2 # Incontinent Bowel Movements 2 GENERAL: WBWN On Vent SKIN: Warm and dry. HEAD: Normocephalic. EYES: No scleral icterus. No injection or drainage. NECK: Supple, trachea midline. No JVD or lymphadenopathy. trach CARDIOVASCULAR: Regular rate and rhythm without murmurs, gallops, or rubs. RESPIRATORY: Breath sounds equal bilaterally. No accessory muscle use. GASTROINTESTINAL: Abdomen soft, non-tender, nondistended. has PEG MUSCULOSKELETAL: No cyanosis, or edema. BACK: Nontender without obvious deformity. No CVA tenderness. - Urinary Catheter Management Indwelling Urethral Catheter Cath placed during this visit: yes, but has since been removed by the nurse Reason for continuing: Acute urinary retention Insertion date: 07/14/18 Insertion time: 21:55 Removal date: 08/02/18 Removal time: 07:59 Straight Cath placed during this visit: yes Reason for continuing: Acute urinary retention Insertion date: 08/11/18 Insertion time: 10:48 Condom Cath placed during this visit: no Indwelling Temp Sensing Catheter Cath placed during this visit: yes, but has since been removed by the nurse Reason for continuing: Decision to DC catheter Insertion date: 08/02/18 Insertion time: 08:00 Removal date: 08/09/18 Removal time: 18:30 Assessment and Plan - Plan IMPRESSION: Hypercapnoic RF, COPD exac AMS improved 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 Abdominal distension, s/p decompression. Ileus Seizure. Renal failure PLAN: Cont Vent support Daily CPAP trial Trach care Aerosol nebs Supplement 02 Monitor H/H Cont Jose PADILLA pt's sister at [facility]
--- NOTE | 2018-08-12 18:49 | MG ---
cc: Carl Senior MD ELECTROENCEPHALOGRAM NUMBER: [id number] CLINICAL HISTORY: A 73-year-old man with anxiety, insulin, Lopressor, shortness of breath, COPD, lethargy. DESCRIPTION: Diffuse 5 Hz slowing is noted. Recording overall is synchronous and symmetric. Prior sharps that were seen which were questionable triphasics are not as apparent here, but still diffuse slowing is seen consistent with a moderate diffuse encephalopathy. Hyperventilation not performed. Photic stimulation is performed without significant posterior driving. Some diffuse at times 3 Hz slowing is noted. The patient has some right arm jerking, but that does not correlate with any epileptiform or seizure activity, and that is frequent right upper extremity twitching throughout this recording. At epoch 120, there is a run of some of these sharply contoured waves as seen prior up to epoch 125. IMPRESSION: Much improved electroencephalogram. There are still some sharply contoured waves similar to what was seen on the prior electroencephalogram but much less frequent. This recording generally featured diffuse slowing in the 3-5 Hz range consistent with a moderate to severe diffuse encephalopathy. MD YOLY Buck/canelo , 06:20 PM , 06:25 PM
[2018-08-13] MEDS: Insulin NovoLOG Aspart Correctional Sugar Inj SQ SCH ×6 (01:39→20:20)
[2018-08-13] MEDS: Artificial Tears Opth Drops 15 ML Bottle EACH EYE SCH ×3 (01:40→16:14)
[2018-08-13] MEDS: Pantoprazole Inj 40 MG Vial IV.PUSH SCH ×2 (01:40→15:08)
--- NOTE | 2018-08-13 06:09 | XR ---
EXAM DATE: 08/13/2018 6:03 AM EST AGE/SEX: 73 years / Male INDICATIONS: Respiratory failure. CLINICAL DATA: This is the patient's subsequent encounter. Patient reports that signs and symptoms h ave been present for 4 - 6 days and indicates a pain score of Nonresponsive. MEDICAL/SURGICAL HISTORY: Non-responsive. Non-responsive. COMPARISON: [facility] [place], CHEST 1V SINGLE AP, 08/12/2018. . FINDINGS: 2 AP views of the chest. Right IJ central venous catheter and tracheostomy tube remain in place. Naso gastric tube is no longer seen. Bilateral lower lung zone predominant pulmonary opacities unchanged. Cardiomediastinal silhouette unchanged. No evidence of pneumothorax. CONCLUSION: Nasogastric tube no longer seen. No other significant interval change with persistent bilateral lower lung zone predominant opacity. Electronically signed by: Ernesto Figueredo MD 08/13/2018 6:08 AM EST
[2018-08-13] MEDS: Multivitamin/Minerals Therapeutic Tablet PO SCH (08:07)
[2018-08-13] MEDS: Metoprolol Tartrate 25 MG Tablet PO SCH ×3 (08:07→17:26)
[2018-08-13] MEDS: Ascorbic Acid 500 MG Tablet PO SCH (08:07)
[2018-08-13] MEDS: Calcium/Vitamin D 250/125 MG Tablet PO SCH (08:07)
[2018-08-13] MEDS: Bisacodyl 10 MG Supp RECTAL SCH (08:08)
[2018-08-13] MEDS: Polyethylene Glycol 3350 17 GM Packet PO SCH ×2 (08:08→20:20)
[2018-08-13] MEDS: Docusate Sodium Liq 100 MG/10 ML UDC NG/OG SCH ×2 (08:08→20:19)
[2018-08-13] MEDS: Sennosides Liq 8.8 MG/5 ML UDC NG/OG SCH ×2 (08:08→20:20)
[2018-08-13] MEDS: Insulin Detemir Inj 1,000 UNIT/10 ML Vial SQ SCH ×2 (08:10→20:20)
[2018-08-13] MEDS: Enoxaparin Inj 30 MG/0.3 ML Syringe SQ SCH (08:52)
[2018-08-13] MEDS: Bumetanide Inj 25 MG/100 ML BAG IV.CONT SCH (08:53)
--- NOTE | 2018-08-13 10:25 | P.PNNP ---
Subjective Interval history: Status post trach and PEG On hemodialysis Physical Exam Vital signs: Vital Signs 08/12/18 11:23 08/12/18 12:00 08/12/18 13:29 Temperature 98.4 F Pulse Rate 101 H 103 H Respiratory Rate 22 25 H 20 Blood Pressure 99/72 L Pulse Oximetry 96 99 08/12/18 14:00 08/12/18 15:00 08/12/18 16:00 Temperature 98.3 F Pulse Rate 97 H 108 H 110 H Respiratory Rate 23 24 Blood Pressure 96/55 L Pulse Oximetry 97 08/12/18 16:52 08/12/18 18:00 08/12/18 19:00 Temperature Pulse Rate 114 H 111 H Respiratory Rate 26 H 23 Blood Pressure 153/74 H Pulse Oximetry 97 96 08/12/18 19:15 08/12/18 19:30 08/12/18 19:35 Temperature Pulse Rate 110 H 112 H Respiratory Rate 26 H 25 H 22 Blood Pressure 166/76 H 158/76 H Pulse Oximetry 95 94 L 95 08/12/18 19:38 08/12/18 19:45 08/12/18 20:00 Temperature Pulse Rate 111 H 110 H 125 H Respiratory Rate 22 20 21 Blood Pressure 140/70 149/67 H Pulse Oximetry 100 97 08/12/18 20:15 08/12/18 20:30 08/12/18 20:46 Temperature Pulse Rate 103 H 102 H 105 H Respiratory Rate 20 21 24 Blood Pressure 135/61 129/61 196/117 H Pulse Oximetry 99 98 99 08/12/18 20:49 08/12/18 21:00 08/12/18 21:19 Temperature Pulse Rate 103 H 103 H 103 H Respiratory Rate 21 22 22 Blood Pressure 150/67 H 139/63 130/80 Pulse Oximetry 96 96 96 08/12/18 21:31 08/12/18 21:46 08/12/18 22:00 Temperature Pulse Rate 104 H 104 H 109 H Respiratory Rate 23 30 H 20 Blood Pressure 156/73 H 169/78 H 145/67 H Pulse Oximetry 97 97 99 08/12/18 22:15 08/12/18 22:25 08/12/18 22:38 Temperature Pulse Rate 101 H 107 H Respiratory Rate 20 21 31 H Blood Pressure 143/68 H 136/63 Pulse Oximetry 99 98 95 08/12/18 22:46 08/12/18 23:00 08/12/18 23:15 Temperature Pulse Rate 105 H 108 H 105 H Respiratory Rate 31 H 29 H 20 Blood Pressure 130/62 138/71 139/76 Pulse Oximetry 96 94 L 97 08/12/18 23:30 08/12/18 23:39 08/12/18 23:45 Temperature Pulse Rate 104 H 108 H 107 H Respiratory Rate 20 22 23 Blood Pressure 139/70 143/70 H Pulse Oximetry 99 100 08/13/18 00:00 08/13/18 00:15 08/13/18 00:31 Temperature 98.1 F Pulse Rate 103 H 103 H 107 H Respiratory Rate 20 20 27 H Blood Pressure 136/64 138/66 145/94 H Pulse Oximetry 98 97 98 08/13/18 00:46 08/13/18 01:00 08/13/18 01:15 Temperature Pulse Rate 105 H 102 H 108 H Respiratory Rate 29 H 20 29 H Blood Pressure 145/93 H 142/67 H 152/67 H Pulse Oximetry 99 97 94 L 08/13/18 01:20 08/13/18 01:31 08/13/18 01:33 Temperature Pulse Rate 108 H 108 H Respiratory Rate 20 34 H 38 H Blood Pressure 180/138 H 159/72 H Pulse Oximetry 98 97 96 08/13/18 01:45 08/13/18 02:00 08/13/18 02:04 Temperature Pulse Rate 109 H 104 H 108 H Respiratory Rate 32 H 40 H Blood Pressure 164/74 H 161/94 H Pulse Oximetry 95 97 08/13/18 02:15 08/13/18 02:30 08/13/18 02:45 Temperature Pulse Rate 108 H 107 H 102 H Respiratory Rate 33 H 22 20 Blood Pressure 173/83 H 160/70 H 155/72 H Pulse Oximetry 94 L 96 98 08/13/18 03:00 08/13/18 03:01 08/13/18 03:15 Temperature Pulse Rate 107 H 107 H 101 H Respiratory Rate 30 H 20 20 Blood Pressure 159/70 H 145/69 H Pulse Oximetry 95 100 100 08/13/18 03:31 08/13/18 03:48 08/13/18 03:51 Temperature Pulse Rate 107 H 110 H 103 H Respiratory Rate 32 H 28 H 20 Blood Pressure 150/80 H 120/59 L Pulse Oximetry 96 99 08/13/18 04:00 08/13/18 04:02 08/13/18 04:15 Temperature Pulse Rate 108 H 109 H Respiratory Rate 22 21 Blood Pressure 132/75 Pulse Oximetry 99 99 08/13/18 05:00 08/13/18 06:00 08/13/18 07:00 Temperature Pulse Rate 108 H 108 H 111 H Respiratory Rate 23 33 H 20 Blood Pressure Pulse Oximetry 100 97 99 08/13/18 08:00 Temperature 98.7 F Pulse Rate 110 H Respiratory Rate 22 Blood Pressure 147/67 H Pulse Oximetry 98 Intake & Output 08/12/18 08/13/18 08/13/18 18:59 06:59 18:59 Intake Total 1010 / 1010 2219 / 2219 100 / 100 Output Total 400 / 400 450 / 450 Balance 610 / 610 1769 / 1769 100 / 100 Weight 93.3 kg Intake: IV 1010 / 1010 1405 / 1405 100 / 100 Bumex Inj 25 mg In 100 ml @ 1 100 / 100 MG/HR 4 mls/hr IV.CONT .Q24H WOLF Rx#:[id number] Alburx 5% Inj 500 ML @ 250 mls/ 500 / 500 hr IV.SIG Q12H WOLF Rx#:[id number] Azactam Inj 1,000 MG In NS Inj 300 / 300 200 / 200 100 / 100 100 ML @ 200 mls/hr IV.SIG Q6H WOLF Rx#:[id number] Keppra Inj 500 MG In NS Inj 100 210 / 210 105 / 105 ML @ 400 mls/hr IV.SIG Q12H WOLF Rx#:[id number] Tube Feeding 414 / 414 Water Bolus Amount 400 / 400 Output: Urine Amount (Catheter) 400 / 400 450 / 450 Indwelling Urethral Catheter 400 / 400 450 / 450 Other: Date of Last Bowel Movement 08/12/18 08/13/18 08/13/18 # Bowel Movements 2 2 # Incontinent Bowel Movements 2 Narrative: GENERAL: Well-nourished, well-developed. Status post tracheostomy on ventilator SKIN: Warm and dry. No rash. HEENT: Normocephalic. Atraumatic. Pupils equal and round. Mucous membranes pink and moist. NECK: Trachea tracheostomy in place CARDIOVASCULAR: Tachycardia RESPIRATORY: Diminished air entry at the bases on ventilator. GASTROINTESTINAL: Abdomen is slightly distended normoactive bowel sounds x4. MUSCULOSKELETAL: No obvious deformities. 2-3+ BLE edema. NEUROLOGICAL: on ventilator and sedated - Urinary Catheter Management Indwelling Urethral Catheter Cath placed during this visit: yes, but has since been removed by the nurse Reason for continuing: Acute urinary retention Insertion date: 07/14/18 Insertion time: 21:55 Removal date: 08/02/18 Removal time: 07:59 Straight Cath placed during this visit: yes Reason for continuing: Acute urinary retention Insertion date: 08/11/18 Insertion time: 10:48 Condom Cath placed during this visit: no Indwelling Temp Sensing Catheter Cath placed during this visit: yes, but has since been removed by the nurse Reason for continuing: Decision to DC catheter Insertion date: 08/02/18 Insertion time: 08:00 Removal date: 08/09/18 Removal time: 18:30 Assessment and Plan - Assessment (1) Acute renal failure Code(s): N17.9 - Acute kidney failure, unspecified Status: Acute (2) Anasarca Code(s): R60.1 - Generalized edema Status: Acute (3) Abdominal distention Code(s): R14.0 - Abdominal distension (gaseous) Status: Acute (4) Ileus Code(s): K56.7 - Ileus, unspecified Status: Acute - Plan Patient seen and examined, patient is doing poorly and urine output has dropped he has been treated with vancomycin Status post tracheostomy On ventilator Patient requires hemodialysis
[2018-08-13 10:31] LABS: Baso % (Auto) 0.5 % (0.0-2.0); Eos # (Auto) 0.1 th/mm3 (0.0-0.4); Eos % (Auto) 1.1 % (0.0-4.0); Hematocrit 22.4 % (39.0-51.0); Hemoglobin 7.3 gm/dL (13.0-17.0); Lymph # (Auto) 1.2 th/mm3 (1.0-4.8); Lymph % (Auto) 13.7 % (9.0-44.0); Mean Corpuscular HGB Conc 32.5 % (32.0-36.0); Mean Corpuscular Hemoglobin 30.5 pg (27.0-34.0); Mean Corpuscular Volume 93.6 fL (80.0-100.0); Mean Platelet Volume 9.9 fL (7.0-11.0); Mono # (Auto) 0.8 th/mm3 (0.0-0.9); Mono % (Auto) 9.5 % (0.0-8.0); Neut # (Auto) 6.4 th/mm3 (1.8-7.7); Neut % (Auto) 75.2 % (16.0-70.0); Platelet Count 127 th/mm3 (150-450); White Blood Count 8.4 th/mm3 (4.0-11.0)
[2018-08-13 10:53] LABS: Albumin 2.9 g/dL (3.4-5.0); Anion Gap 8 meq/L (5-15); Aspartate Aminotransferase 66 U/L (15-37); Blood Urea Nitrogen 44 mg/dL (7-18); Calcium 7.9 mg/dL (8.5-10.1); Carbon Dioxide 26.4 meq/L (21.0-32.0); Chloride 106 meq/L (98-107); Glomerular Filtration Rate 28 mL/min (>89); Glucose,Random 102 mg/dL (74-106); Magnesium 2.1 mg/dL (1.5-2.5); Potassium 4.1 meq/L (3.5-5.1); Sodium 140 meq/L (136-145)
[2018-08-13 10:57] LABS: Eosinophils 1 % (0-4); Lymphocytes 17 % (9-44); Monocytes 4 % (0-8); Tallied Nucleated RBC 5 (0-0)
[2018-08-13 10:58] LABS: Platelet Morphology Normal (Normal)
[2018-08-13 11:00] LABS: Alanine Aminotransferase 71 U/L (12-78); Alkaline Phosphatase 239 U/L (45-117); Phosphorus 2.7 mg/dL (2.5-4.9); Total Protein 6.5 g/dL (6.4-8.2)
[2018-08-13] MEDS: DAPTOmycin Inj 500 MG in Sodium Chlor 0.9% Inj 100 ML IV.SIG SCH (15:08)
--- NOTE | 2018-08-13 15:10 | P.PNCC ---
Subjective Subjective Remarks/Hospital Course: Mr. Curry is a 73-year-old -[place] male with past medical history significant for COPD on 3 L nasal cannula, hypertension, hyperlipidemia and anxiety who was admitted to the hospitalist service on 06/19/2018 for worsening shortness of breath due to COPD exacerbation. He was treated with IV Solu- Medrol, IV antibiotics, breathing treatments gradually improved. Patient was also complaining about dyspepsia and underwent EGD by GI yesterday. Per report the EGD was normal but patient developed worsening shortness of breath and COPD exacerbation postprocedure, possibly from aspiration after sedated. Two ABGs done yesterday showed hypercapnic respiratory failure second 1 was on BiPAP and this was improved with pH 7.3 with PCO2 of 74. Patient remained on BiPAP overnight however was noticed to be lethargic today a.m., stat ABG showed pH of 7.21 PCO2 110 PO2 88 while on BiPAP. Patient was lethargic intermittently dozing off due to CO2 narcosis. Critical care medicine was consulted and I immediately evaluated the patient. Patient had obviously failed BiPAP I proceeded with endotracheal intubation placed on mechanical ventilation. Postintubation I have ordered single dose of Solu-Medrol 125 mg x1 continue Solu -Medrol 60 every 8, discontinue ceftriaxone and start cefepime 2 g IV every 8 hours continue azithromycin. Add budesonide inhaled, placed on scheduled DuoNeb every 4 hours and as needed. 06/27: Patient was intubated yesterday for severe hypercapnic respiratory failure. Currently remains intubated sedated and intubated remains diminished bilaterally. Heavily sedated for ventilator synchrony 06/28: Urine output significantly improved with fluid resuscitation. Creat down trending now 2 from 2.3, UO >3.3 L. Remains intubated sedated. Will initiate daily sedation vacation and CPAP trials 06/29: More awake today tolerating CPAP trials intermittently follows commands but gets agitated/frustrated fast. Urine output remains excellent creatinine 1.4. However sodium increasing 158 today. Night wire spinner had changed fluid to D5 W for free water replacement. Due to hypoglycemia will change to quarter normal saline at 150 mL/h repeat CMP in the afternoon 06/30 Patient was extubated yesterday. Awake 07/01 Patient is lying in bed in NAD. T: 100.5 07/02: Intubated early this morning due to acute hypoxic respiratory failure. Central line placed due to hypotension. Plan for GI perform endoscopic decompression of this large bowel today. Arousable and does follow commands. Placed on argatroban 07/03: Currently, intubated with borderline blood pressure. Central line placed yesterday due to hypotension. Did not move bowels despite 1 L of fluid from colonoscopy yesterday and multiple laxatives provided. See orders for additional laxatives today. Might need neostigmine. 07/04 Patient remains intubated and sedated with Diprivan. Given Neostigmine last night. KUB this morning showed colonic ileus. Afebrile. On Argatroban. 07/05 No events overnight, sedated with Diprivan and intubated. Off Argatroban. 07/06 Patient remains intubated and sedated. Afebrile. 07/07 Patient remains intubated, s/p decompressive colonoscopy yesterday. Awake. 07/08 Patient s/p extubation yesterday. Awake and alert. 07/09 Patient is awake, alert lying in bed in NAD. Afebrile. 07/10 Patient is awake and alert, Afebrile. 07/11 Patient s/p decompressive colonoscopy yesterday. Afebrile. On Lasix drip.( UOP: 2800ml overnight). Cr: 3.0 from 2.25. 07/12 Patient is awake, alert given Neostigmine overnight. NGT to LIWS, off Lasix drip. 07/13: Resting comfortably in bed in no acute distress. 3 bowel movements documented. Remains n.p.o. Bladder pressures around 6. Potassium being replaced. Remains anemic around 7. 07/14 Patient is lying in bed in NAD. Afebrile. 07/15 No events overnight. Afebrile. 07/16: Resting in bed mild distress. Abdomen remains distended. Hemoglobin has dropped to 6.2 2 units of PRBC ordered. Patient underwent decompressive colonoscopy by Dr. Berrios for colonic ileus 07/17: No significant overnight events, patient states that he wants to get out of bed to a chair as he is having rectal discomfort. 07/18: Patient reportedly had a BM after digital rectal exam yesterday, states that he's been passing flatus "every now and then" overnight. No plans for OR or sigmoidoscopy as per colorectal service, OK to transfer out of [facility]. 07/19: Patient transferred to [facility] yesterday, complained of shortness of breath again today. An ABG showed a pCO2 of 79 so he was placed on bipap and transferred to [facility]. Most recent ABG shows pCO2 of 66, KUB still has abdominal distension but appears to be improved when compared to KUB from 07/15. Patient has reportedly been having bowel movements and passing flatus overnight. 07/20: No dramatic improvement in abdominal distention however abdomen soft. The patient was able to breathe comfortably overnight and remained alert. This morning the BiPAP mask was removed for half an hour and the patient did well without evidence of CO2 retention or somnolence. Reconsult note 07/23: The patient was a halicat from the [facility] floor. Patient was noted to be somnolent, had difficulty breathing. Stat ABG was performed revealing a PCO2 of 113. The patient was placed on BiPAP and transferred to [facility]. Currently remains on CPAP respiratory rate is 25 , 16/5 with an FiO2 35%. 07/24: Overnight the patient was placed on BiPAP 10/5 refusing BiPAP pulling out IVs. The patient became tachycardic refusing p.o. medications. The patient was placed on a Cardizem infusion currently at 5 mg an hour. Patient is more compliant at this time the patient's BiPAP settings were increased to 15 /5 35% stat ABGs were ordered the patient was noted to have a PCO2 of 89, continues with hypercapnic respiratory failure in the setting of severe COPD. Extensive discussion with family at bedside the patient's sister and daughter provided medical status update on recent transfer to ICU and current standing. Inform family that patient is at risk for for emergent intubation. Repeat ABG pending this evening. 07/25: Patient noted to have episodes of agitation continually removing BiPAP. I discussed with patient the criticality of his illness and possible intubation patient now agrees to wear BiPAP with exception of meals. Patient's diet was advanced to clear liquid noted improvement of chest x-ray patient is noted to have last bowel movement approximately 2 days ago we will continue to monitor and follow-up GI recommendations . Noted electrolyte repletion at this time. PCO2 now in the 60s. 07/26: Patient continues to be noncompliant with BiPAP mask. ABGs obtained noting a PO2 of 45.6. The patient was emergently intubated this afternoon. Chest x-ray and repeat ABG pending at this time. Noted patient's last bowel movement last night. 07/27: Afebrile. Remains on ventilator. Will start tube feeding today. BM noted overnight. Replacing potassium phosphate, calcium chloride x1 now. And magnesium sulfate 07/28: Afebrile. Did not tolerate CPAP trial the same. Tolerating tube feeds today. Last bowel movement yesterday 09/26. Mild ileus on abdominal x-ray today. 07/29: Afebrile. Tolerated CPAP times 3 hours. He is intolerant to P. 2 bowel movements. Abdominal x-ray unchanged but no signs of obstructive or ileus. 07/30: Afebrile. Currently on CPAP trials. Positive BM. No change in neurological status. Increasing metoprolol to 5 mg IV every 6 hours. 07/31: Again on CPAP trials. Awake and alert on dexmedetomidine drip. Will put on metoprolol tartrate 25 mg every 8 hours and titrate. Positive BM. Recheck KUB in a.m. 08/01. 08/01: Currently tolerating CPAP, but requiring 15 pressure support. Patient had been intubated 3 times this admission, according to the caregiver and go from had to do patient's a total of several intubation in the last 2-3 months. I discussed with the patient was agreeable for tracheostomy, I also discussed with Stephanie patient's daughter and she has given consent for tracheostomy. Plan for tracheostomy tomorrow 08/02: Patient currently on Precedex awake alert not tolerating CPAP trials. Plan for tracheostomy today. Transfuse 1 unit PRBC 1 pack units of platelets prior to trach 08/03: Patient remains calm on the vent currently tolerating pressure support 06/06. Status post tracheostomy yesterday no significant bleeding. Platelet count 103 today. 08/04: Patient placed on CPAP trials this a.m. and continues without difficulty. Precedex infusion currently at 1.5 mcgs/kg/hour. Tentative plan for PEG tube placement procedure on hold awaiting discussion with family, POA. Patient continues to have large bowel movements. 08/05: Continued copious large bowel movement. Fecal containment device / Dignashield applied. Placement of PEG tube continues to be on hold ,due to the inability to contact the POA. 08/06: Palliative care cylinder steamer Ms. Pittman had extensive meeting with the patient's POA tentative plan for placement of PEG tube. 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 Brown infectious disease. Patient continues to be agitated and requires Precedex infusion currently at 1.5, plan to initiate Seroquel this evening and attempts to decrease agitation, and subsequently discontinue Precedex infusion. The patient has been initiated on trach collar trials and continues greater than 6 hours. 08/07: No acute events overnight. GI consult for PEG placement. Tolerating tube feeds. 08/08: The patient tolerated T-piece for approximately 10 hours. Patient placed back on CPAP this evening. Agitation resolved with ministration of Seroquel. Patient responding to questions nodding head yes and no. 08/09: Currently on vent support, tolerates CPAP. Attempt T-piece daily, check chest x-ray today repeat labs in a.m. 08/10: T-max 100. Remains tachycardic. More lethargic today. Leaking around tracheostomy site. Increasing rate and tidal volume. 08/11: Currently afebrile. Remains tachycardic. Remains lethargic withdraws but not following commands. Negative CT and MRI of brain. EEG pending. Worsening renal failure noted. Decreased urine output. Having copious bowel movements. 08/12: Received 4 mg lorazepam yesterday due to possible seizure activity. Did not appear to be akathisia movements versus tardive dyskinesia. Currently on levetiracetam 5 mg twice daily. Will adjust for renal respiratory neurology consultation patient. EEG results pending. Negative MRI brain 08/10. Plan for PEG tube placement today likely hemodialysis Subjective 08/13: Status post PEG tube yesterday. Will likely start tube feeds today. Hemodialysis -2 L plan. More arousable today. Objective Vital Signs / I&O: Vital Signs 08/12/18 16:00 08/12/18 16:52 08/12/18 18:00 Temperature 98.3 F Pulse Rate 110 H 114 H Respiratory Rate 24 26 H Blood Pressure 96/55 L Pulse Oximetry 97 97 08/12/18 19:00 08/12/18 19:15 08/12/18 19:30 Temperature Pulse Rate 111 H 110 H 112 H Respiratory Rate 23 26 H 25 H Blood Pressure 153/74 H 166/76 H 158/76 H Pulse Oximetry 96 95 94 L 08/12/18 19:35 08/12/18 19:38 08/12/18 19:45 Temperature Pulse Rate 111 H 110 H Respiratory Rate 22 22 20 Blood Pressure 140/70 Pulse Oximetry 95 100 08/12/18 20:00 08/12/18 20:15 08/12/18 20:30 Temperature Pulse Rate 125 H 103 H 102 H Respiratory Rate 21 20 21 Blood Pressure 149/67 H 135/61 129/61 Pulse Oximetry 97 99 98 08/12/18 20:46 08/12/18 20:49 08/12/18 21:00 Temperature Pulse Rate 105 H 103 H 103 H Respiratory Rate 24 21 22 Blood Pressure 196/117 H 150/67 H 139/63 Pulse Oximetry 99 96 96 08/12/18 21:19 08/12/18 21:31 08/12/18 21:46 Temperature Pulse Rate 103 H 104 H 104 H Respiratory Rate 22 23 30 H Blood Pressure 130/80 156/73 H 169/78 H Pulse Oximetry 96 97 97 08/12/18 22:00 08/12/18 22:15 08/12/18 22:25 Temperature Pulse Rate 109 H 101 H Respiratory Rate 20 20 21 Blood Pressure 145/67 H 143/68 H Pulse Oximetry 99 99 98 08/12/18 22:38 08/12/18 22:46 08/12/18 23:00 Temperature Pulse Rate 107 H 105 H 108 H Respiratory Rate 31 H 31 H 29 H Blood Pressure 136/63 130/62 138/71 Pulse Oximetry 95 96 94 L 08/12/18 23:15 08/12/18 23:30 08/12/18 23:39 Temperature Pulse Rate 105 H 104 H 108 H Respiratory Rate 20 20 22 Blood Pressure 139/76 139/70 Pulse Oximetry 97 99 08/12/18 23:45 08/13/18 00:00 08/13/18 00:15 Temperature 98.1 F Pulse Rate 107 H 103 H 103 H Respiratory Rate 23 20 20 Blood Pressure 143/70 H 136/64 138/66 Pulse Oximetry 100 98 97 08/13/18 00:31 08/13/18 00:46 08/13/18 01:00 Temperature Pulse Rate 107 H 105 H 102 H Respiratory Rate 27 H 29 H 20 Blood Pressure 145/94 H 145/93 H 142/67 H Pulse Oximetry 98 99 97 08/13/18 01:15 08/13/18 01:20 08/13/18 01:31 Temperature Pulse Rate 108 H 108 H Respiratory Rate 29 H 20 34 H Blood Pressure 152/67 H 180/138 H Pulse Oximetry 94 L 98 97 08/13/18 01:33 08/13/18 01:45 08/13/18 02:00 Temperature Pulse Rate 108 H 109 H 104 H Respiratory Rate 38 H 32 H Blood Pressure 159/72 H 164/74 H Pulse Oximetry 96 95 08/13/18 02:04 08/13/18 02:15 08/13/18 02:30 Temperature Pulse Rate 108 H 108 H 107 H Respiratory Rate 40 H 33 H 22 Blood Pressure 161/94 H 173/83 H 160/70 H Pulse Oximetry 97 94 L 96 08/13/18 02:45 08/13/18 03:00 08/13/18 03:01 Temperature Pulse Rate 102 H 107 H 107 H Respiratory Rate 20 30 H 20 Blood Pressure 155/72 H 159/70 H Pulse Oximetry 98 95 100 08/13/18 03:15 08/13/18 03:31 08/13/18 03:48 Temperature Pulse Rate 101 H 107 H 110 H Respiratory Rate 20 32 H 28 H Blood Pressure 145/69 H 150/80 H 120/59 L Pulse Oximetry 100 96 99 08/13/18 03:51 08/13/18 04:00 08/13/18 04:02 Temperature Pulse Rate 103 H 108 H 109 H Respiratory Rate 20 22 Blood Pressure 132/75 Pulse Oximetry 99 08/13/18 04:15 08/13/18 05:00 08/13/18 06:00 Temperature Pulse Rate 108 H 108 H Respiratory Rate 21 23 33 H Blood Pressure Pulse Oximetry 99 100 97 08/13/18 07:00 08/13/18 08:00 08/13/18 10:00 Temperature 98.7 F Pulse Rate 111 H 110 H 109 H Respiratory Rate 20 22 Blood Pressure 147/67 H Pulse Oximetry 99 98 08/13/18 11:00 08/13/18 12:00 08/13/18 14:00 Temperature 99.4 F Pulse Rate 104 H 109 H 113 H Respiratory Rate 20 20 Blood Pressure 148/72 H Pulse Oximetry 99 Intake & Output 08/12/18 08/13/18 08/13/18 18:59 06:59 18:59 Intake Total 1010 / 1010 2219 / 2219 205 / 205 Output Total 400 / 400 450 / 450 1999 / 1999 Balance 610 / 610 1769 / 1769 -1795 / -1795 Weight 93.3 kg Intake: IV 1010 / 1010 1405 / 1405 205 / 205 Bumex Inj 25 mg In 100 ml @ 1 100 / 100 MG/HR 4 mls/hr IV.CONT .Q24H WOLF Rx#:[id number] Alburx 5% Inj 500 ML @ 250 mls/ 500 / 500 hr IV.SIG Q12H WOLF Rx#:[id number] Azactam Inj 1,000 MG In NS Inj 300 / 300 200 / 200 100 / 100 100 ML @ 200 mls/hr IV.SIG Q6H WOLF Rx#:[id number] Keppra Inj 500 MG In NS Inj 100 210 / 210 105 / 105 105 / 105 ML @ 400 mls/hr IV.SIG Q12H WOLF Rx#:[id number] Tube Feeding 414 / 414 Water Bolus Amount 400 / 400 Output: Hemodialysis Amount 1999 Urine Amount (Catheter) 400 / 400 450 / 450 Indwelling Urethral Catheter 400 / 400 450 / 450 Other: Date of Last Bowel Movement 08/12/18 08/13/18 08/13/18 # Bowel Movements 2 2 # Incontinent Bowel Movements 2 Result Diagrams: 08/13/18 09:53 08/13/18 09:53 Other Results: Microbiology 08/10/18 10:30 Blood - Peripheral Aerobic Blood Culture - Preliminary No growth in 3 days 08/10/18 10:30 Blood - Peripheral Anaerobic Blood Culture - Preliminary No growth in 3 days 08/10/18 10:51 Blood - Peripheral Aerobic Blood Culture - Preliminary No growth in 3 days 08/10/18 10:51 Blood - Peripheral Anaerobic Blood Culture - Preliminary No growth in 3 days 08/10/18 08:45 Clean Catch Urine Urine Culture - Final 10-50,000 cfu/mL mixed gram positive justyn (probable contaminants) 08/03/18 14:30 Blood - Peripheral Aerobic Blood Culture - Final No growth in 5 days 08/03/18 14:30 Blood - Peripheral Anaerobic Blood Culture - Final Staphylococcus epidermidis 08/03/18 14:56 Blood - Peripheral Aerobic Blood Culture - Final Staphylococcus coag negative 08/03/18 14:56 Blood - Peripheral Anaerobic Blood Culture - Final Staphylococcus epidermidis 08/02/18 09:30 Catheterized Urine Urine Culture - Final Enterococcus faecalis Klebsiella pneumoniae 07/28/18 06:00 Catheterized Urine Urine Culture - Final Koki albicans 07/11/18 13:50 Blood - Peripheral Aerobic Blood Culture - Final No growth in 5 days 07/11/18 13:50 Blood - Peripheral Anaerobic Blood Culture - Final No growth in 5 days 07/11/18 02:48 Blood - Peripheral Aerobic Blood Culture - Final No growth in 5 days 07/11/18 02:48 Blood - Peripheral Anaerobic Blood Culture - Final No growth in 5 days 07/11/18 16:50 Clean Catch Urine Urine Culture - Final No growth in 48 hours 07/09/18 00:30 Stool Cryptosporidium Antigen - Final Negative - No Cryptosporicium antigen detected In selected cases of patients with a history of immunosuppression or foreign travel, a full ova and parasites examination may be desired. Contact the microbiology lab if full workup is indicated and subit another specimen for testing. 07/09/18 00:30 Stool Giardia Antigen (GERONIMO) - Final Negative - No Giardia Antigen detected In selected cases of patients with a history of immunosuppression or foreign travel, a full ova and parasites examination may be desired. Contact the microbiology lab if full workup is indicated and subit another specimen for testing. 07/02/18 05:41 Blood - Peripheral Aerobic Blood Culture - Final No growth in 5 days 07/02/18 05:41 Blood - Peripheral Anaerobic Blood Culture - Final No growth in 5 days 07/02/18 05:47 Blood - Peripheral Aerobic Blood Culture - Final No growth in 5 days 07/02/18 05:47 Blood - Peripheral Anaerobic Blood Culture - Final No growth in 5 days 07/02/18 22:00 Sputum - Endotracheal Gram Stain - Final 07/02/18 22:00 Sputum - Endotracheal Sputum Culture - Final Heavy growth normal respiratory justyn 06/26/18 10:10 Sputum - Endotracheal Gram Stain - Final 06/26/18 10:10 Sputum - Endotracheal Sputum Culture - Final Light growth normal respiratory justyn Imaging: Chest X-Ray 06/19/18 20:38 CONCLUSION: No evidence of acute cardiopulmonary disease. Abdomen Ultrasound 06/21/18 00:00 CONCLUSION: 1. No ascites is identified within the abdomen. Abdomen X-Ray 06/21/18 00:00 CONCLUSION: No acute findings. Mild constipation. Chest X-Ray 06/23/18 00:00 CONCLUSION: 1. No acute abnormality or significant interval change. Abdomen/Pelvis CT 06/24/18 00:00 CONCLUSION: 1. Benign appearing right adrenal mass. 2. No acute CT findings in the abdomen or pelvis. Chest X-Ray 06/25/18 00:00 CONCLUSION: Suspected mild atelectasis or consolidation at the medial right base. Chest X-Ray 06/26/18 00:00 CONCLUSION: 1. Endotracheal tube is appropriately positioned above the christy. 2. Nasogastric tube traverses the GE junction and is curled in the gastric lumen. 3. Lungs are clear. Abdomen X-Ray 06/26/18 09:21 CONCLUSION: 1. Nonobstructive bowel gas pattern without pneumoperitoneum. 2. Nasogastric tube is curled in the expected location of the gastric body. I believe the portions of the tube identified over the heart shadow is probably projectional as there is no evidence of a significant hiatal hernia on the most recent CT of the abdomen. Chest X-Ray 06/26/18 15:37 CONCLUSION: 1. Lungs remain clear. 2. Interval placement of a right IJ central venous catheter with the tip projecting over the central venous system. No pneumothorax. 3. Endotracheal and nasogastric tubes remain appropriately positioned. Abdomen/Bladder Ultrasound 06/28/18 00:00 CONCLUSION: 1. Echogenic kidneys characteristic of medical renal disease. No hydronephrosis. Bladder decompressed by Moreno Chest X-Ray 06/28/18 06:00 CONCLUSION: The lungs are clear. Lines and tubes stable. Chest X-Ray 06/29/18 06:00 CONCLUSION: The lungs are clear. Lines and tubes stable. Venous Doppler Study 07/01/18 00:00 CONCLUSION: 1. The study is negative for bilateral lower extremity deep venous thrombosis. Chest X-Ray 07/01/18 20:41 CONCLUSION: Negative examination. Chest CTA 07/02/18 00:00 CONCLUSION: 1. No pulmonary embolus. 2. Diffuse but basilar predominant bilateral airspace disease. 3. Endotracheal and endobronchial secretions are demonstrated. 4. Moderate emphysema. 5. Left ventricular hypertrophy. Venous Doppler Study 07/02/18 00:00 CONCLUSION: 1. Limited, no evidence for thrombosis. Chest X-Ray 07/02/18 04:04 CONCLUSION: 1. Interim intubation and nasogastric tube placement as above. 2. Mild bibasilar atelectasis has developed. Abdomen/Pelvis CT 07/02/18 04:20 CONCLUSION: Colonic distention most likely representing moderate adynamic ileus. However, distal sigmoid colon is decompressed and a sigmoid stricture is conceivable but considered less likely. Apparent mild proctitis. Clinical surveillance and follow-up CT recommended. Chest X-Ray 07/02/18 14:46 CONCLUSION: Left IJ line in good position. There is no pneumothorax. Abdomen X-Ray 07/04/18 00:01 CONCLUSION: Findings of colonic ileus Chest X-Ray 07/04/18 06:00 CONCLUSION: Cardiomegaly and findings of vascular congestion without overt failure. There has been no significant change when compared to the prior exam. Abdomen X-Ray 07/05/18 07:08 CONCLUSION: No significant interval change with persistent diffuse air-filled distention of the colon suggesting ileus. Chest X-Ray 07/07/18 07:12 CONCLUSION: Minimal bibasilar densities likely atelectasis. Abdomen X-Ray 07/07/18 07:13 CONCLUSION: Gaseous distention of multiple bowel loops has improved since previous study. Abdomen X-Ray 07/09/18 07:14 CONCLUSION: 1. Apparent interval removal of NGT. 2. Improving bowel gas pattern consistent with improving adynamic ileus. Abdomen/Pelvis CT 07/10/18 08:31 CONCLUSION: 1. There is gas and fluid distending the colon. The patient has a rectal tube in place however the rectal tube is kinked back on itself and occluded. The overall size of the colon has mildly increased when compared to previous exam. The small bowel is normal in caliber. 2. Interval development of a small left basilar effusion and atelectasis. Chest X-Ray 07/10/18 08:42 CONCLUSION: Mild patchy bilateral lung base opacity likely representing atelectasis unchanged. Small left pleural effusion now seen. Abdomen X-Ray 07/11/18 00:00 CONCLUSION: 1. Questionable NGT at the GE junction, as above. 2. Moderately improved colonic distention. Abdomen X-Ray 07/12/18 00:00 CONCLUSION: Probable generalized ileus. No abrupt caliber changes are seen. No free air. Nasogastric tube tip is in the upper stomach. No gastric distention seen. Abdomen X-Ray 07/14/18 06:00 CONCLUSION: Distended air-filled colon. Ileus is the most likely etiology for this pattern. Abdomen X-Ray 07/15/18 00:00 CONCLUSION: Persistent air-filled loops of small and large bowel suggesting probably ileus. Clinical correlation is recommended. Venous Doppler Study 07/15/18 00:00 CONCLUSION: 1. Limited suboptimal examination. 2. Nonocclusive thrombus in the jugular vein. Chest X-Ray 07/16/18 10:00 CONCLUSION: Mild bibasilar consolidations, presumably atelectasis is unchanged. Abdomen X-Ray 07/19/18 14:09 CONCLUSION: Negative examination. Chest X-Ray 07/19/18 14:10 CONCLUSION: 1. No acute cardiopulmonary disease. 2. Mild degenerative changes and scoliosis of the thoracic spine. Chest X-Ray 07/23/18 00:00 CONCLUSION: Negative examination. Chest X-Ray 07/24/18 00:00 CONCLUSION: Mild bibasilar consolidation. Chest X-Ray 07/25/18 04:00 CONCLUSION: Previous basilar opacity has resolved. No new infiltrate or effusion. Abdomen X-Ray 07/26/18 00:00 CONCLUSION: Orogastric tube tip is in the distal stomach or proximal duodenum. Chest X-Ray 07/26/18 17:00 CONCLUSION: 1. ETT in good position. 2. No acute abnormality. Chest X-Ray 07/27/18 04:00 CONCLUSION: Endotracheal tube and nasogastric tube in good position. Minimal dependent atelectasis in the lungs. Abdomen X-Ray 07/28/18 00:01 CONCLUSION: Mild ileus. No evidence for obstruction or free air. Chest X-Ray 07/28/18 06:00 CONCLUSION: Mild basilar atelectasis. No effusion or pneumothorax. Abdomen X-Ray 07/29/18 00:01 CONCLUSION: NG tip in duodenum. No acute findings. Chest X-Ray 07/29/18 06:00 CONCLUSION: Endotracheal tube and nasogastric tube unchanged. Stable to slight increase in basilar airspace disease since July 28. Chest X-Ray 07/30/18 06:00 CONCLUSION: Stable exam compared with July 22, 2017 with support apparatus in good position. Abdomen X-Ray 07/30/18 15:07 CONCLUSION: Benign-appearing KUB. Chest X-Ray 07/31/18 06:00 CONCLUSION: Increase in basilar airspace disease since July 30. Support apparatus unchanged. Chest X-Ray 08/01/18 06:00 CONCLUSION: Mild improvement in the bibasilar airspace opacity. Abdomen X-Ray 08/01/18 09:59 CONCLUSION: NG tube in place. Mild gaseous distention of portions of colon. Chest X-Ray 08/02/18 06:00 CONCLUSION: Stable chest x-ray with mild bibasilar opacity representing either atelectasis or consolidation. Chest X-Ray 08/03/18 06:00 CONCLUSION: Stable bibasilar airspace opacity representing either atelectasis or airspace consolidation. There is also a questionable hazy opacity at the right base which could indicate a small pleural effusion. Chest X-Ray 08/09/18 00:00 CONCLUSION: No significant change. Head MRI 08/10/18 00:00 CONCLUSION: No acute intracranial abnormality is identified. Abdomen/Bladder Ultrasound 08/10/18 08:23 CONCLUSION: 1. Normal sonographic evaluation of the kidneys. 2. No evidence of hydronephrosis. 3. Decompressed bladder. Head CT 08/10/18 15:53 CONCLUSION: Stable noncontrast head CT. No acute intracranial abnormality is identified. . Abdomen X-Ray 08/11/18 00:00 CONCLUSION: Relative paucity of bowel gas with is a gastric tube remain in place. There is no distended bowel loops identified. Chest X-Ray 08/11/18 06:00 CONCLUSION: Decrease in bilateral pulmonary opacity indicating decreased pulmonary edema or infection. Chest X-Ray 08/12/18 06:00 CONCLUSION: Increased right lung base opacity indicating either parenchymal opacity or pleural effusion. Chest X-Ray 08/12/18 09:39 CONCLUSION: 1. Interval placement of right internal jugular central venous line with no pneumothorax. 2. Stable increased opacity at the right lung base. 3. The left costophrenic angle is mildly blunted most characteristic of a small effusion. Chest X-Ray 08/13/18 06:00 CONCLUSION: Nasogastric tube no longer seen. No other significant interval change with persistent bilateral lower lung zone predominant opacity. Objective Remarks: GENERAL: 73-year-old chronically ill appearing elderly -[place] male lying in bed, awake , calm currently on PRVC SKIN: Warm and dry. No rash HEAD: Normocephalic. EYES: PERRL NECK: Supple, trachea midline. New tracheostomy with minimal dry blood around the site CARDIOVASCULAR: RRR. S1, S2. No S4. No murmur RESPIRATORY: Diminished breath sounds in bases noted right greater than left. B/ L equal air entry, patient. tolerating trach collar trials GASTROINTESTINAL: Abdomen continues/remains distended, grimaces when deep palpation, no guarding, hypoactive bowel sounds present. Ceci shield in place PEG tube site is clean dry and intact MUSCULOSKELETAL: 1-2+ bilateral upper/ lower extremity edema, warm and well- perfused NEURO: Arousable with open eyes. Will look at you to voice. Grimaces with pain. Withdraws to pain all 4 extremities. Assessment and Plan - Assessment and Plan Plan: NEURO/Psych: Altered mental status due to CO2 retention/toxic metabolic encephalopathy -Discontinued dexmedetomidine 08/03 -F/U acetylcholine receptor and autoantibodies was negative -Currently on quetiapine 25 mg twice daily at night Holding duloxetine 20 mg daily/home medication Acetaminophen 650 by tube every 6 hours as needed fever Oxycodone/acetaminophen 5/325 1 tablet every 4 hours as needed pain CT brain 08/10 revealed no acute intracranial findings. MRI brain 08/10 revealed no acute intracranial findings EEG ordered 08 11 revealed sharps possible epileptic activity. Much improved with EEG later 08/12 Neurology following. RESP: Hypercapnic respiratory failure Acute COPD exacerbation -Extubated 06/29. Reintubated 07/02 extubated again 07/07, reintubated 07/26 -Status post tracheostomy 08/02/2018. ACV - CPAP trial with T-piece 8-12 hours as tolerated -Albuterol/ipratropium aerosols every 4 hours scheduled and albuterol aerosols every 2 hours as needed -Continue budesonide twice daily CV: Essential hypertension - Monitor HR and BP keep MAP>65mmHg -Metoprolol tartrate 25 mg by tube every 8 hours GI: Colonic ileus Elevated transaminases -negative hepatitis panel Elevated ammonia Hypoalbuminemia with moderate protein calorie malnutrition -KUB 08/10 revealed no signs of obstructive process -Given Neostigmine 07/11. -s/p repeat decompressive colonoscopy 07/10 and 07/15 -Continue pantoprazole -On docusate sodium 100 cc twice daily/senna 8.6 mg tablet twice daily, lactulose 30 cc 2 times daily, polyethylene glycol 17 g twice daily. -NG tube. Tube feeding with Glucerna 1.5 goal 45 cc daily currently on hold. 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 -Discontinued metoclopramide 10 mg every 8 hours seizure activity Patient 800 cc stool output Family agreeable to PEG tube placement. Status post 08/12 FEN//renal: Acute renal injury/nonoliguric -Monitor renal function, I/O's, avoid nephrotoxins -Renal function stable -Renal- Dr. Figueroa has followed. Recommend hemodialysis likely 08/13 -Repletion of electrolytes as clinically indicated -Free water 200 cc every 6 hours and be resumed -08/05 C. difficile PCR-negative -Repeat renal ultrasound negative for hydronephrosis. Negative urine eosinophils -2 L plan for hemodialysis today ID: Staph epi bacteremia Enterococcus/Klebsiella pneumonia -Off abx monitor for signs of infections (Fever, WBC) WBC stable -BC and urine cx from 07/11- NG -07/02 BC: NGTS, sputum cx 07/02:normal resp justyn -ID is following- Dr. Brown PRN -Urine culture from 07/28/2018 growing Koki. Repeat cultures sent 08/02/2018 after replacing Moreno 08/10 vancomycin, cefepime times 8 days total per infectious disease recommendation - discontinued 08/10. -Currently on daptomycin and aztreonam per infectious disease since 06/13 Repeat blood cultures, UA 08/10 no growth to date HEME Normocytic anemia Thrombocytopenia -Monitor CBC, coags, Hep PLT is positive. ANNMARIE negative. Hematology is following. Off argatroban drip -s/p 2U PRBCs on 07/16, Hgb 8.8, used for hemoglobin less than 7 -Give 1 unit of PRBC and 1 pack units of platelets today in anticipation of tracheostomy -Stable thrombocytopenia-avoid medications that precipitate thrombocytopenia ENDO: -Sliding scale insulin medium scale aspart insulin every 4 hours. Continue insulin detemir 10 units twice daily TSH 1.26 PROPH: -Bilateral lower extremity SCDs. PPI -Doppler US LE negative DVT 07/02 -Continue enoxaparin 30 mg daily 08/12 for possible PEG tube placement LINES: -Utilize peripheral IVs Level 3 follow-up Code Status: Full code
--- NOTE | 2018-08-13 19:08 | P.PNPL ---
Subjective Interval history: 73 YOAA male with COPD, 02 dependent Follows at [facility] Admitted with AMS, COPD exac. On Vent via trach Had vas ath and HD had PEG placed Started Bumex drip Physical Exam Vital signs: Vital Signs 08/12/18 19:15 08/12/18 19:30 08/12/18 19:35 Temperature Pulse Rate 110 H 112 H Respiratory Rate 26 H 25 H 22 Blood Pressure 166/76 H 158/76 H Pulse Oximetry 95 94 L 95 08/12/18 19:38 08/12/18 19:45 08/12/18 20:00 Temperature Pulse Rate 111 H 110 H 125 H Respiratory Rate 22 20 21 Blood Pressure 140/70 149/67 H Pulse Oximetry 100 97 08/12/18 20:15 08/12/18 20:30 08/12/18 20:46 Temperature Pulse Rate 103 H 102 H 105 H Respiratory Rate 20 21 24 Blood Pressure 135/61 129/61 196/117 H Pulse Oximetry 99 98 99 08/12/18 20:49 08/12/18 21:00 08/12/18 21:19 Temperature Pulse Rate 103 H 103 H 103 H Respiratory Rate 21 22 22 Blood Pressure 150/67 H 139/63 130/80 Pulse Oximetry 96 96 96 08/12/18 21:31 08/12/18 21:46 08/12/18 22:00 Temperature Pulse Rate 104 H 104 H 109 H Respiratory Rate 23 30 H 20 Blood Pressure 156/73 H 169/78 H 145/67 H Pulse Oximetry 97 97 99 08/12/18 22:15 08/12/18 22:25 08/12/18 22:38 Temperature Pulse Rate 101 H 107 H Respiratory Rate 20 21 31 H Blood Pressure 143/68 H 136/63 Pulse Oximetry 99 98 95 08/12/18 22:46 08/12/18 23:00 08/12/18 23:15 Temperature Pulse Rate 105 H 108 H 105 H Respiratory Rate 31 H 29 H 20 Blood Pressure 130/62 138/71 139/76 Pulse Oximetry 96 94 L 97 08/12/18 23:30 08/12/18 23:39 08/12/18 23:45 Temperature Pulse Rate 104 H 108 H 107 H Respiratory Rate 20 22 23 Blood Pressure 139/70 143/70 H Pulse Oximetry 99 100 08/13/18 00:00 08/13/18 00:15 08/13/18 00:31 Temperature 98.1 F Pulse Rate 103 H 103 H 107 H Respiratory Rate 20 20 27 H Blood Pressure 136/64 138/66 145/94 H Pulse Oximetry 98 97 98 08/13/18 00:46 08/13/18 01:00 08/13/18 01:15 Temperature Pulse Rate 105 H 102 H 108 H Respiratory Rate 29 H 20 29 H Blood Pressure 145/93 H 142/67 H 152/67 H Pulse Oximetry 99 97 94 L 08/13/18 01:20 08/13/18 01:31 08/13/18 01:33 Temperature Pulse Rate 108 H 108 H Respiratory Rate 20 34 H 38 H Blood Pressure 180/138 H 159/72 H Pulse Oximetry 98 97 96 08/13/18 01:45 08/13/18 02:00 08/13/18 02:04 Temperature Pulse Rate 109 H 104 H 108 H Respiratory Rate 32 H 40 H Blood Pressure 164/74 H 161/94 H Pulse Oximetry 95 97 08/13/18 02:15 08/13/18 02:30 08/13/18 02:45 Temperature Pulse Rate 108 H 107 H 102 H Respiratory Rate 33 H 22 20 Blood Pressure 173/83 H 160/70 H 155/72 H Pulse Oximetry 94 L 96 98 08/13/18 03:00 08/13/18 03:01 08/13/18 03:15 Temperature Pulse Rate 107 H 107 H 101 H Respiratory Rate 30 H 20 20 Blood Pressure 159/70 H 145/69 H Pulse Oximetry 95 100 100 08/13/18 03:31 08/13/18 03:48 08/13/18 03:51 Temperature Pulse Rate 107 H 110 H 103 H Respiratory Rate 32 H 28 H 20 Blood Pressure 150/80 H 120/59 L Pulse Oximetry 96 99 08/13/18 04:00 08/13/18 04:02 08/13/18 04:15 Temperature Pulse Rate 108 H 109 H Respiratory Rate 22 21 Blood Pressure 132/75 Pulse Oximetry 99 99 08/13/18 05:00 08/13/18 06:00 08/13/18 07:00 Temperature Pulse Rate 108 H 108 H 111 H Respiratory Rate 23 33 H 20 Blood Pressure Pulse Oximetry 100 97 99 08/13/18 08:00 08/13/18 10:00 08/13/18 11:00 Temperature 98.7 F Pulse Rate 110 H 109 H 104 H Respiratory Rate 22 20 Blood Pressure 147/67 H Pulse Oximetry 98 08/13/18 12:00 08/13/18 14:00 08/13/18 15:00 Temperature 99.4 F Pulse Rate 109 H 113 H 116 H Respiratory Rate 20 20 Blood Pressure 148/72 H Pulse Oximetry 99 08/13/18 15:21 08/13/18 16:00 08/13/18 18:00 Temperature Pulse Rate 121 H 116 H Respiratory Rate 20 Blood Pressure Pulse Oximetry 99 Intake & Output 08/13/18 08/13/18 08/14/18 06:59 18:59 06:59 Intake Total 2219 / 2219 405 / 405 Output Total 450 / 450 1999 Balance 1769 / 1769 -1595 / -1595 Weight 93.3 kg Intake: IV 1405 / 1405 405 / 405 Bumex Inj 25 mg In 100 ml @ 1 100 / 100 MG/HR 4 mls/hr IV.CONT .Q24H WOLF Rx#:[id number] Azactam Inj 1,000 MG In NS Inj 200 / 200 200 / 200 100 ML @ 200 mls/hr IV.SIG Q6H WOLF Rx#:[id number] Cubicin Inj 500 MG In NS Inj 100 / 100 100 ML @ 200 mls/hr IV.SIG Q48H WOLF Rx#:[id number] Keppra Inj 500 MG In NS Inj 100 105 / 105 105 / 105 ML @ 400 mls/hr IV.SIG Q12H WOLF Rx#:[id number] Tube Feeding 414 / 414 Water Bolus Amount 400 / 400 Output: Hemodialysis Amount 1999 Urine Amount (Catheter) 450 / 450 Indwelling Urethral Catheter 450 / 450 Other: Date of Last Bowel Movement 08/13/18 08/13/18 # Bowel Movements 2 # Incontinent Bowel Movements 2 GENERAL: Obese Aa male, on Vent SKIN: Warm and dry. HEAD: Normocephalic. EYES: No scleral icterus. No injection or drainage. NECK: Supple, trachea midline. No JVD or lymphadenopathy. trach CARDIOVASCULAR: Regular rate and rhythm without murmurs, gallops, or rubs. RESPIRATORY: Breath sounds equal bilaterally. No accessory muscle use. GASTROINTESTINAL: Abdomen soft, non-tender, nondistended. Has PEG MUSCULOSKELETAL: No cyanosis, or edema. BACK: Nontender without obvious deformity. No CVA tenderness. - Urinary Catheter Management Indwelling Urethral Catheter Cath placed during this visit: yes, but has since been removed by the nurse Reason for continuing: Acute urinary retention Insertion date: 07/14/18 Insertion time: 21:55 Removal date: 08/02/18 Removal time: 07:59 Straight Cath placed during this visit: yes Reason for continuing: Acute urinary retention Insertion date: 08/11/18 Insertion time: 10:48 Condom Cath placed during this visit: no Indwelling Temp Sensing Catheter Cath placed during this visit: yes, but has since been removed by the nurse Reason for continuing: Decision to DC catheter Insertion date: 08/02/18 Insertion time: 08:00 Removal date: 08/09/18 Removal time: 18:30 Assessment and Plan - Plan IMPRESSION: Hypercapnoic RF, COPD exac AMS improved 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 Abdominal distension, s/p decompression. Ileus Seizure. Renal failure PLAN: Cont Vent support PC AC 20, Fi02 35%,IT 1.0 Daily CPAP trial Trach care Aerosol nebs Supplement 02 Monitor H/H Cont Keppra Tube feeding
[2018-08-14] MEDS: Insulin NovoLOG Aspart Correctional Sugar Inj SQ SCH ×6 (00:20→20:18)
[2018-08-14] MEDS: Artificial Tears Opth Drops 15 ML Bottle EACH EYE SCH ×3 (02:16→16:19)
[2018-08-14] MEDS: Pantoprazole Inj 40 MG Vial IV.PUSH SCH (02:16)
--- NOTE | 2018-08-14 05:02 | XR ---
EXAM DATE: 08/14/2018 4:45 AM EST AGE/SEX: 73 years / Male INDICATIONS: Shortness of breath, possible pulmonary disease. CLINICAL DATA: This is the patient's subsequent encounter. Patient reports that signs and symptoms h ave been present for 2 weeks and indicates a pain score of Nonresponsive. MEDICAL/SURGICAL HISTORY: Chronic obstructive pulmonary disease. Hypertension. Asthma. None. COMPARISON: [facility] [place], CHEST 1V SINGLE AP, 08/13/2018. . FINDINGS: Single AP view the chest. Tracheostomy tube and right IJ central venous catheter remain in place. No significant interval change in bilateral pulmonary parenchymal opacity. Cardiomediastinal silhouette unchanged. No evidence of pneumothorax. CONCLUSION: No significant interval change with persistent bilateral pulmonary opacity. Electronically signed by: Ernesto Figueredo MD 08/14/2018 5:00 AM EST
[2018-08-14 07:00] LABS: Baso % (Auto) 0.5 % (0.0-2.0); Eos # (Auto) 0.1 th/mm3 (0.0-0.4); Eos % (Auto) 0.7 % (0.0-4.0); Hematocrit 22.1 % (39.0-51.0); Hemoglobin 7.4 gm/dL (13.0-17.0); Lymph # (Auto) 1.5 th/mm3 (1.0-4.8); Lymph % (Auto) 16.2 % (9.0-44.0); Mean Corpuscular HGB Conc 33.3 % (32.0-36.0); Mean Corpuscular Hemoglobin 30.3 pg (27.0-34.0); Mean Platelet Volume 9.8 fL (7.0-11.0); Mono # (Auto) 1.1 th/mm3 (0.0-0.9); Mono % (Auto) 12.1 % (0.0-8.0); Neut # (Auto) 6.5 th/mm3 (1.8-7.7); Neut % (Auto) 70.5 % (16.0-70.0); Platelet Count 144 th/mm3 (150-450); Red Blood Count 2.43 mil/mm3 (4.50-5.90); Red Cell Distribution Width 17.2 % (11.6-17.2); White Blood Count 9.2 th/mm3 (4.0-11.0)
[2018-08-14 07:44] LABS: Alanine Aminotransferase 66 U/L (12-78); Albumin 2.6 g/dL (3.4-5.0); Alkaline Phosphatase 274 U/L (45-117); Anion Gap 9 meq/L (5-15); Aspartate Aminotransferase 58 U/L (15-37); Blood Urea Nitrogen 33 mg/dL (7-18); Carbon Dioxide 28.5 meq/L (21.0-32.0); Chloride 105 meq/L (98-107); Glomerular Filtration Rate 31 mL/min (>89); Glucose,Random 144 mg/dL (74-106); Phosphorus 1.2 mg/dL (2.5-4.9); Potassium 3.5 meq/L (3.5-5.1); Sodium 142 meq/L (136-145); Total Protein 6.4 g/dL (6.4-8.2)
[2018-08-14] MEDS: Ascorbic Acid 500 MG Tablet PO SCH (08:14)
[2018-08-14] MEDS: Calcium/Vitamin D 250/125 MG Tablet PO SCH (08:14)
[2018-08-14] MEDS: Enoxaparin Inj 30 MG/0.3 ML Syringe SQ SCH (08:14)
[2018-08-14] MEDS: Metoprolol Tartrate 25 MG Tablet PO SCH ×3 (08:14→18:35)
[2018-08-14] MEDS: Docusate Sodium Liq 100 MG/10 ML UDC NG/OG SCH ×2 (08:15→23:35)
[2018-08-14] MEDS: Multivitamin/Minerals Therapeutic Tablet PO SCH (08:15)
[2018-08-14] MEDS: Sennosides Liq 8.8 MG/5 ML UDC NG/OG SCH ×2 (08:15→23:35)
[2018-08-14] MEDS: Bisacodyl 10 MG Supp RECTAL SCH (08:15)
[2018-08-14] MEDS: Polyethylene Glycol 3350 17 GM Packet PO SCH ×2 (08:15→20:18)
[2018-08-14 08:28] LABS: Basophilic Stippling Moderate; Lymphocytes 11 % (9-44); Metamyelocytes 2 % (0-1); Monocytes 5 % (0-8); Myelocytes 1 % (0-0); Platelet Morphology Normal (Normal); Promyelocyte 1 % (0-0); Tallied Nucleated RBC 3 (0-0)
[2018-08-14] MEDS: Bumetanide Inj 25 MG/100 ML BAG IV.CONT SCH (09:30)
[2018-08-14] MEDS: Insulin Detemir Inj 1,000 UNIT/10 ML Vial SQ SCH ×2 (09:30→20:18)
--- NOTE | 2018-08-14 10:13 | P.PNCC ---
Subjective Subjective Remarks/Hospital Course: Mr. Curry is a 73-year-old -[place] male with past medical history significant for COPD on 3 L nasal cannula, hypertension, hyperlipidemia and anxiety who was admitted to the hospitalist service on 06/19/2018 for worsening shortness of breath due to COPD exacerbation. He was treated with IV Solu- Medrol, IV antibiotics, breathing treatments gradually improved. Patient was also complaining about dyspepsia and underwent EGD by GI yesterday. Per report the EGD was normal but patient developed worsening shortness of breath and COPD exacerbation postprocedure, possibly from aspiration after sedated. Two ABGs done yesterday showed hypercapnic respiratory failure second 1 was on BiPAP and this was improved with pH 7.3 with PCO2 of 74. Patient remained on BiPAP overnight however was noticed to be lethargic today a.m., stat ABG showed pH of 7.21 PCO2 110 PO2 88 while on BiPAP. Patient was lethargic intermittently dozing off due to CO2 narcosis. Critical care medicine was consulted and I immediately evaluated the patient. Patient had obviously failed BiPAP I proceeded with endotracheal intubation placed on mechanical ventilation. Postintubation I have ordered single dose of Solu-Medrol 125 mg x1 continue Solu -Medrol 60 every 8, discontinue ceftriaxone and start cefepime 2 g IV every 8 hours continue azithromycin. Add budesonide inhaled, placed on scheduled DuoNeb every 4 hours and as needed. 06/27: Patient was intubated yesterday for severe hypercapnic respiratory failure. Currently remains intubated sedated and intubated remains diminished bilaterally. Heavily sedated for ventilator synchrony 06/28: Urine output significantly improved with fluid resuscitation. Creat down trending now 2 from 2.3, UO >3.3 L. Remains intubated sedated. Will initiate daily sedation vacation and CPAP trials 06/29: More awake today tolerating CPAP trials intermittently follows commands but gets agitated/frustrated fast. Urine output remains excellent creatinine 1.4. However sodium increasing 158 today. Night systems coordinator had changed fluid to D5 W for free water replacement. Due to hypoglycemia will change to quarter normal saline at 150 mL/h repeat CMP in the afternoon 06/30 Patient was extubated yesterday. Awake 07/01 Patient is lying in bed in NAD. T: 100.5 07/02: Intubated early this morning due to acute hypoxic respiratory failure. Central line placed due to hypotension. Plan for GI perform endoscopic decompression of this large bowel today. Arousable and does follow commands. Placed on argatroban 07/03: Currently, intubated with borderline blood pressure. Central line placed yesterday due to hypotension. Did not move bowels despite 1 L of fluid from colonoscopy yesterday and multiple laxatives provided. See orders for additional laxatives today. Might need neostigmine. 07/04 Patient remains intubated and sedated with Diprivan. Given Neostigmine last night. KUB this morning showed colonic ileus. Afebrile. On Argatroban. 07/05 No events overnight, sedated with Diprivan and intubated. Off Argatroban. 07/06 Patient remains intubated and sedated. Afebrile. 07/07 Patient remains intubated, s/p decompressive colonoscopy yesterday. Awake. 07/08 Patient s/p extubation yesterday. Awake and alert. 07/09 Patient is awake, alert lying in bed in NAD. Afebrile. 07/10 Patient is awake and alert, Afebrile. 07/11 Patient s/p decompressive colonoscopy yesterday. Afebrile. On Lasix drip.( UOP: 2800ml overnight). Cr: 3.0 from 2.25. 07/12 Patient is awake, alert given Neostigmine overnight. NGT to LIWS, off Lasix drip. 07/13: Resting comfortably in bed in no acute distress. 3 bowel movements documented. Remains n.p.o. Bladder pressures around 6. Potassium being replaced. Remains anemic around 7. 07/14 Patient is lying in bed in NAD. Afebrile. 07/15 No events overnight. Afebrile. 07/16: Resting in bed mild distress. Abdomen remains distended. Hemoglobin has dropped to 6.2 2 units of PRBC ordered. Patient underwent decompressive colonoscopy by Dr. Berrios for colonic ileus 07/17: No significant overnight events, patient states that he wants to get out of bed to a chair as he is having rectal discomfort. 07/18: Patient reportedly had a BM after digital rectal exam yesterday, states that he's been passing flatus "every now and then" overnight. No plans for OR or sigmoidoscopy as per colorectal service, OK to transfer out of [facility]. 07/19: Patient transferred to [facility] yesterday, complained of shortness of breath again today. An ABG showed a pCO2 of 79 so he was placed on bipap and transferred to [facility]. Most recent ABG shows pCO2 of 66, KUB still has abdominal distension but appears to be improved when compared to KUB from 07/15. Patient has reportedly been having bowel movements and passing flatus overnight. 07/20: No dramatic improvement in abdominal distention however abdomen soft. The patient was able to breathe comfortably overnight and remained alert. This morning the BiPAP mask was removed for half an hour and the patient did well without evidence of CO2 retention or somnolence. Reconsult note 07/23: The patient was a halicat from the [facility] floor. Patient was noted to be somnolent, had difficulty breathing. Stat ABG was performed revealing a PCO2 of 113. The patient was placed on BiPAP and transferred to [facility]. Currently remains on CPAP respiratory rate is 25 , 16/5 with an FiO2 35%. 07/24: Overnight the patient was placed on BiPAP 10/5 refusing BiPAP pulling out IVs. The patient became tachycardic refusing p.o. medications. The patient was placed on a Cardizem infusion currently at 5 mg an hour. Patient is more compliant at this time the patient's BiPAP settings were increased to 15 /5 35% stat ABGs were ordered the patient was noted to have a PCO2 of 89, continues with hypercapnic respiratory failure in the setting of severe COPD. Extensive discussion with family at bedside the patient's sister and daughter provided medical status update on recent transfer to ICU and current standing. Inform family that patient is at risk for for emergent intubation. Repeat ABG pending this evening. 07/25: Patient noted to have episodes of agitation continually removing BiPAP. I discussed with patient the criticality of his illness and possible intubation patient now agrees to wear BiPAP with exception of meals. Patient's diet was advanced to clear liquid noted improvement of chest x-ray patient is noted to have last bowel movement approximately 2 days ago we will continue to monitor and follow-up GI recommendations . Noted electrolyte repletion at this time. PCO2 now in the 60s. 07/26: Patient continues to be noncompliant with BiPAP mask. ABGs obtained noting a PO2 of 45.6. The patient was emergently intubated this afternoon. Chest x-ray and repeat ABG pending at this time. Noted patient's last bowel movement last night. 07/27: Afebrile. Remains on ventilator. Will start tube feeding today. BM noted overnight. Replacing potassium phosphate, calcium chloride x1 now. And magnesium sulfate 07/28: Afebrile. Did not tolerate CPAP trial the same. Tolerating tube feeds today. Last bowel movement yesterday 09/26. Mild ileus on abdominal x-ray today. 07/29: Afebrile. Tolerated CPAP times 3 hours. He is intolerant to P. 2 bowel movements. Abdominal x-ray unchanged but no signs of obstructive or ileus. 07/30: Afebrile. Currently on CPAP trials. Positive BM. No change in neurological status. Increasing metoprolol to 5 mg IV every 6 hours. 07/31: Again on CPAP trials. Awake and alert on dexmedetomidine drip. Will put on metoprolol tartrate 25 mg every 8 hours and titrate. Positive BM. Recheck KUB in a.m. 08/01. 08/01: Currently tolerating CPAP, but requiring 15 pressure support. Patient had been intubated 3 times this admission, according to the caregiver and go from had to do patient's a total of several intubation in the last 2-3 months. I discussed with the patient was agreeable for tracheostomy, I also discussed with Stephanie patient's daughter and she has given consent for tracheostomy. Plan for tracheostomy tomorrow 08/02: Patient currently on Precedex awake alert not tolerating CPAP trials. Plan for tracheostomy today. Transfuse 1 unit PRBC 1 pack units of platelets prior to trach 08/03: Patient remains calm on the vent currently tolerating pressure support 06/06. Status post tracheostomy yesterday no significant bleeding. Platelet count 103 today. 08/04: Patient placed on CPAP trials this a.m. and continues without difficulty. Precedex infusion currently at 1.5 mcgs/kg/hour. Tentative plan for PEG tube placement procedure on hold awaiting discussion with family, POA. Patient continues to have large bowel movements. 08/05: Continued copious large bowel movement. Fecal containment device / Dignashield applied. Placement of PEG tube continues to be on hold ,due to the inability to contact the POA. 08/06: Palliative care steam pipe fitter Ms. Pittman had extensive meeting with the patient's POA tentative plan for placement of PEG tube. Concern now for continued [facility]'s syndrome and continued chronic use of laxatives, this was discussed with Dr. Brown infectious disease. Patient continues to be agitated and requires Precedex infusion currently at 1.5, plan to initiate Seroquel this evening and attempts to decrease agitation, and subsequently discontinue Precedex infusion. The patient has been initiated on trach collar trials and continues greater than 6 hours. 08/07: No acute events overnight. GI consult for PEG placement. Tolerating tube feeds. 08/08: The patient tolerated T-piece for approximately 10 hours. Patient placed back on CPAP this evening. Agitation resolved with ministration of Seroquel. Patient responding to questions nodding head yes and no. 08/09: Currently on vent support, tolerates CPAP. Attempt T-piece daily, check chest x-ray today repeat labs in a.m. 08/10: T-max 100. Remains tachycardic. More lethargic today. Leaking around tracheostomy site. Increasing rate and tidal volume. 08/11: Currently afebrile. Remains tachycardic. Remains lethargic withdraws but not following commands. Negative CT and MRI of brain. EEG pending. Worsening renal failure noted. Decreased urine output. Having copious bowel movements. 08/12: Received 4 mg lorazepam yesterday due to possible seizure activity. Did not appear to be akathisia movements versus tardive dyskinesia. Currently on levetiracetam 5 mg twice daily. Will adjust for renal respiratory neurology consultation patient. EEG results pending. Negative MRI brain 08/10. Plan for PEG tube placement today likely hemodialysis 08/13: Status post PEG tube yesterday. Will likely start tube feeds today. Hemodialysis -2 L plan. More arousable today. Subjective 08/14: Patient is currently arousable and afebrile. Attempted to transfer to [facility]. Tolerating tube feeding. Positive BM. Phosphorus being replaced today. Objective Vital Signs / I&O: Vital Signs 08/13/18 11:00 08/13/18 12:00 08/13/18 14:00 Temperature 99.4 F Pulse Rate 104 H 109 H 113 H Respiratory Rate 20 20 Blood Pressure 148/72 H Pulse Oximetry 99 08/13/18 15:00 08/13/18 15:21 08/13/18 16:00 Temperature Pulse Rate 116 H 109 H Respiratory Rate 20 20 20 Blood Pressure 148/72 H Pulse Oximetry 99 99 08/13/18 18:00 08/13/18 19:38 08/13/18 19:42 Temperature Pulse Rate 116 H 112 H Respiratory Rate 20 20 Blood Pressure Pulse Oximetry 98 08/13/18 20:00 08/13/18 22:00 08/13/18 23:32 Temperature 99.6 F Pulse Rate 112 H 114 H 107 H Respiratory Rate 20 20 Blood Pressure 145/73 H Pulse Oximetry 99 08/14/18 00:00 08/14/18 00:06 08/14/18 02:00 Temperature 99.4 F Pulse Rate 111 H 111 H Respiratory Rate 20 20 Blood Pressure 152/70 H Pulse Oximetry 100 100 08/14/18 03:41 08/14/18 04:00 08/14/18 04:09 Temperature Pulse Rate 101 H 107 H Respiratory Rate 20 20 20 Blood Pressure 159/81 H Pulse Oximetry 100 100 08/14/18 06:00 08/14/18 07:57 08/14/18 08:00 Temperature 97.4 F L Pulse Rate 105 H 99 H 100 H Respiratory Rate 20 20 Blood Pressure 160/91 H Pulse Oximetry 100 100 08/14/18 10:00 Temperature Pulse Rate 91 H Respiratory Rate Blood Pressure Pulse Oximetry Intake & Output 12/12/18 12/13/18 12/13/18 18:59 06:59 18:59 Intake Total 1092 / 1092 738 / 738 405 / 405 Output Total 2600 / 2600 800 / 800 Balance -1508 / -1508 -62 / -62 405 / 405 Weight 91.1 kg Intake: IV 405 / 405 100 / 100 405 / 405 Bumex Inj 25 mg In 100 ml @ 1 100 / 100 MG/HR 4 mls/hr IV.CONT .Q24H WOLF Rx#:[id number] Azactam Inj 1,000 MG In NS Inj 200 / 200 100 / 100 200 / 200 100 ML @ 200 mls/hr IV.SIG Q6H WOLF Rx#:[id number] Cubicin Inj 500 MG In NS Inj 100 / 100 100 ML @ 200 mls/hr IV.SIG Q48H WOLF Rx#:[id number] Keppra Inj 500 MG In NS Inj 100 105 / 105 105 / 105 ML @ 400 mls/hr IV.SIG Q12H WOLF Rx#:[id number] Tube Feeding 287 / 287 398 / 398 Water Bolus Amount 400 / 400 240 / 240 Output: Hemodialysis Amount 1999 / 1999 Urine Amount (Catheter) 600 / 600 800 / 800 Indwelling Urethral Catheter 600 / 600 800 / 800 Other: Date of Last Bowel Movement 08/13/18 08/13/18 08/14/18 # Bowel Movements 1 1 Result Diagrams: 08/14/18 06:12 08/14/18 06:12 Other Results: Microbiology 08/10/18 10:30 Blood - Peripheral Aerobic Blood Culture - Preliminary No growth in 3 days 08/10/18 10:30 Blood - Peripheral Anaerobic Blood Culture - Preliminary No growth in 3 days 08/10/18 10:51 Blood - Peripheral Aerobic Blood Culture - Preliminary No growth in 3 days 08/10/18 10:51 Blood - Peripheral Anaerobic Blood Culture - Preliminary No growth in 3 days 08/10/18 08:45 Clean Catch Urine Urine Culture - Final 10-50,000 cfu/mL mixed gram positive justyn (probable contaminants) 08/03/18 14:30 Blood - Peripheral Aerobic Blood Culture - Final No growth in 5 days 08/03/18 14:30 Blood - Peripheral Anaerobic Blood Culture - Final Staphylococcus epidermidis 08/03/18 14:56 Blood - Peripheral Aerobic Blood Culture - Final Staphylococcus coag negative 08/03/18 14:56 Blood - Peripheral Anaerobic Blood Culture - Final Staphylococcus epidermidis 08/02/18 09:30 Catheterized Urine Urine Culture - Final Enterococcus faecalis Klebsiella pneumoniae 07/28/18 06:00 Catheterized Urine Urine Culture - Final Koki albicans 07/11/18 13:50 Blood - Peripheral Aerobic Blood Culture - Final No growth in 5 days 07/11/18 13:50 Blood - Peripheral Anaerobic Blood Culture - Final No growth in 5 days 07/11/18 02:48 Blood - Peripheral Aerobic Blood Culture - Final No growth in 5 days 07/11/18 02:48 Blood - Peripheral Anaerobic Blood Culture - Final No growth in 5 days 07/11/18 16:50 Clean Catch Urine Urine Culture - Final No growth in 48 hours 07/09/18 00:30 Stool Cryptosporidium Antigen - Final Negative - No Cryptosporicium antigen detected In selected cases of patients with a history of immunosuppression or foreign travel, a full ova and parasites examination may be desired. Contact the microbiology lab if full workup is indicated and subit another specimen for testing. 07/09/18 00:30 Stool Giardia Antigen (GERONIMO) - Final Negative - No Giardia Antigen detected In selected cases of patients with a history of immunosuppression or foreign travel, a full ova and parasites examination may be desired. Contact the microbiology lab if full workup is indicated and subit another specimen for testing. 07/02/18 05:41 Blood - Peripheral Aerobic Blood Culture - Final No growth in 5 days 07/02/18 05:41 Blood - Peripheral Anaerobic Blood Culture - Final No growth in 5 days 07/02/18 05:47 Blood - Peripheral Aerobic Blood Culture - Final No growth in 5 days 07/02/18 05:47 Blood - Peripheral Anaerobic Blood Culture - Final No growth in 5 days 07/02/18 22:00 Sputum - Endotracheal Gram Stain - Final 07/02/18 22:00 Sputum - Endotracheal Sputum Culture - Final Heavy growth normal respiratory justyn 06/26/18 10:10 Sputum - Endotracheal Gram Stain - Final 06/26/18 10:10 Sputum - Endotracheal Sputum Culture - Final Light growth normal respiratory justyn Imaging: Chest X-Ray 06/19/18 20:38 CONCLUSION: No evidence of acute cardiopulmonary disease. Abdomen Ultrasound 06/21/18 00:00 CONCLUSION: 1. No ascites is identified within the abdomen. Abdomen X-Ray 06/21/18 00:00 CONCLUSION: No acute findings. Mild constipation. Chest X-Ray 06/23/18 00:00 CONCLUSION: 1. No acute abnormality or significant interval change. Abdomen/Pelvis CT 06/24/18 00:00 CONCLUSION: 1. Benign appearing right adrenal mass. 2. No acute CT findings in the abdomen or pelvis. Chest X-Ray 06/25/18 00:00 CONCLUSION: Suspected mild atelectasis or consolidation at the medial right base. Chest X-Ray 06/26/18 00:00 CONCLUSION: 1. Endotracheal tube is appropriately positioned above the christy. 2. Nasogastric tube traverses the GE junction and is curled in the gastric lumen. 3. Lungs are clear. Abdomen X-Ray 06/26/18 09:21 CONCLUSION: 1. Nonobstructive bowel gas pattern without pneumoperitoneum. 2. Nasogastric tube is curled in the expected location of the gastric body. I believe the portions of the tube identified over the heart shadow is probably projectional as there is no evidence of a significant hiatal hernia on the most recent CT of the abdomen. Chest X-Ray 06/26/18 15:37 CONCLUSION: 1. Lungs remain clear. 2. Interval placement of a right IJ central venous catheter with the tip projecting over the central venous system. No pneumothorax. 3. Endotracheal and nasogastric tubes remain appropriately positioned. Abdomen/Bladder Ultrasound 06/28/18 00:00 CONCLUSION: 1. Echogenic kidneys characteristic of medical renal disease. No hydronephrosis. Bladder decompressed by Moreno Chest X-Ray 06/28/18 06:00 CONCLUSION: The lungs are clear. Lines and tubes stable. Chest X-Ray 06/29/18 06:00 CONCLUSION: The lungs are clear. Lines and tubes stable. Venous Doppler Study 07/01/18 00:00 CONCLUSION: 1. The study is negative for bilateral lower extremity deep venous thrombosis. Chest X-Ray 07/01/18 20:41 CONCLUSION: Negative examination. Chest CTA 07/02/18 00:00 CONCLUSION: 1. No pulmonary embolus. 2. Diffuse but basilar predominant bilateral airspace disease. 3. Endotracheal and endobronchial secretions are demonstrated. 4. Moderate emphysema. 5. Left ventricular hypertrophy. Venous Doppler Study 07/02/18 00:00 CONCLUSION: 1. Limited, no evidence for thrombosis. Chest X-Ray 07/02/18 04:04 CONCLUSION: 1. Interim intubation and nasogastric tube placement as above. 2. Mild bibasilar atelectasis has developed. Abdomen/Pelvis CT 07/02/18 04:20 CONCLUSION: Colonic distention most likely representing moderate adynamic ileus. However, distal sigmoid colon is decompressed and a sigmoid stricture is conceivable but considered less likely. Apparent mild proctitis. Clinical surveillance and follow-up CT recommended. Chest X-Ray 07/02/18 14:46 CONCLUSION: Left IJ line in good position. There is no pneumothorax. Abdomen X-Ray 07/04/18 00:01 CONCLUSION: Findings of colonic ileus Chest X-Ray 07/04/18 06:00 CONCLUSION: Cardiomegaly and findings of vascular congestion without overt failure. There has been no significant change when compared to the prior exam. Abdomen X-Ray 07/05/18 07:08 CONCLUSION: No significant interval change with persistent diffuse air-filled distention of the colon suggesting ileus. Chest X-Ray 07/07/18 07:12 CONCLUSION: Minimal bibasilar densities likely atelectasis. Abdomen X-Ray 07/07/18 07:13 CONCLUSION: Gaseous distention of multiple bowel loops has improved since previous study. Abdomen X-Ray 07/09/18 07:14 CONCLUSION: 1. Apparent interval removal of NGT. 2. Improving bowel gas pattern consistent with improving adynamic ileus. Abdomen/Pelvis CT 07/10/18 08:31 CONCLUSION: 1. There is gas and fluid distending the colon. The patient has a rectal tube in place however the rectal tube is kinked back on itself and occluded. The overall size of the colon has mildly increased when compared to previous exam. The small bowel is normal in caliber. 2. Interval development of a small left basilar effusion and atelectasis. Chest X-Ray 07/10/18 08:42 CONCLUSION: Mild patchy bilateral lung base opacity likely representing atelectasis unchanged. Small left pleural effusion now seen. Abdomen X-Ray 07/11/18 00:00 CONCLUSION: 1. Questionable NGT at the GE junction, as above. 2. Moderately improved colonic distention. Abdomen X-Ray 07/12/18 00:00 CONCLUSION: Probable generalized ileus. No abrupt caliber changes are seen. No free air. Nasogastric tube tip is in the upper stomach. No gastric distention seen. Abdomen X-Ray 07/14/18 06:00 CONCLUSION: Distended air-filled colon. Ileus is the most likely etiology for this pattern. Abdomen X-Ray 07/15/18 00:00 CONCLUSION: Persistent air-filled loops of small and large bowel suggesting probably ileus. Clinical correlation is recommended. Venous Doppler Study 07/15/18 00:00 CONCLUSION: 1. Limited suboptimal examination. 2. Nonocclusive thrombus in the jugular vein. Chest X-Ray 07/16/18 10:00 CONCLUSION: Mild bibasilar consolidations, presumably atelectasis is unchanged. Abdomen X-Ray 07/19/18 14:09 CONCLUSION: Negative examination. Chest X-Ray 07/19/18 14:10 CONCLUSION: 1. No acute cardiopulmonary disease. 2. Mild degenerative changes and scoliosis of the thoracic spine. Chest X-Ray 07/23/18 00:00 CONCLUSION: Negative examination. Chest X-Ray 07/24/18 00:00 CONCLUSION: Mild bibasilar consolidation. Chest X-Ray 07/25/18 04:00 CONCLUSION: Previous basilar opacity has resolved. No new infiltrate or effusion. Abdomen X-Ray 07/26/18 00:00 CONCLUSION: Orogastric tube tip is in the distal stomach or proximal duodenum. Chest X-Ray 07/26/18 17:00 CONCLUSION: 1. ETT in good position. 2. No acute abnormality. Chest X-Ray 07/27/18 04:00 CONCLUSION: Endotracheal tube and nasogastric tube in good position. Minimal dependent atelectasis in the lungs. Abdomen X-Ray 07/28/18 00:01 CONCLUSION: Mild ileus. No evidence for obstruction or free air. Chest X-Ray 07/28/18 06:00 CONCLUSION: Mild basilar atelectasis. No effusion or pneumothorax. Abdomen X-Ray 07/29/18 00:01 CONCLUSION: NG tip in duodenum. No acute findings. Chest X-Ray 07/29/18 06:00 CONCLUSION: Endotracheal tube and nasogastric tube unchanged. Stable to slight increase in basilar airspace disease since July 28. Chest X-Ray 07/30/18 06:00 CONCLUSION: Stable exam compared with July 22, 2017 with support apparatus in good position. Abdomen X-Ray 07/30/18 15:07 CONCLUSION: Benign-appearing KUB. Chest X-Ray 07/31/18 06:00 CONCLUSION: Increase in basilar airspace disease since July 30. Support apparatus unchanged. Chest X-Ray 08/01/18 06:00 CONCLUSION: Mild improvement in the bibasilar airspace opacity. Abdomen X-Ray 08/01/18 09:59 CONCLUSION: NG tube in place. Mild gaseous distention of portions of colon. Chest X-Ray 08/02/18 06:00 CONCLUSION: Stable chest x-ray with mild bibasilar opacity representing either atelectasis or consolidation. Chest X-Ray 08/03/18 06:00 CONCLUSION: Stable bibasilar airspace opacity representing either atelectasis or airspace consolidation. There is also a questionable hazy opacity at the right base which could indicate a small pleural effusion. Chest X-Ray 08/09/18 00:00 CONCLUSION: No significant change. Head MRI 08/10/18 00:00 CONCLUSION: No acute intracranial abnormality is identified. Abdomen/Bladder Ultrasound 08/10/18 08:23 CONCLUSION: 1. Normal sonographic evaluation of the kidneys. 2. No evidence of hydronephrosis. 3. Decompressed bladder. Head CT 08/10/18 15:53 CONCLUSION: Stable noncontrast head CT. No acute intracranial abnormality is identified. . Abdomen X-Ray 08/11/18 00:00 CONCLUSION: Relative paucity of bowel gas with is a gastric tube remain in place. There is no distended bowel loops identified. Chest X-Ray 08/11/18 06:00 CONCLUSION: Decrease in bilateral pulmonary opacity indicating decreased pulmonary edema or infection. Chest X-Ray 08/12/18 06:00 CONCLUSION: Increased right lung base opacity indicating either parenchymal opacity or pleural effusion. Chest X-Ray 08/12/18 09:39 CONCLUSION: 1. Interval placement of right internal jugular central venous line with no pneumothorax. 2. Stable increased opacity at the right lung base. 3. The left costophrenic angle is mildly blunted most characteristic of a small effusion. Chest X-Ray 08/13/18 06:00 CONCLUSION: Nasogastric tube no longer seen. No other significant interval change with persistent bilateral lower lung zone predominant opacity. Chest X-Ray 08/14/18 06:00 CONCLUSION: No significant interval change with persistent bilateral pulmonary opacity. Objective Remarks: GENERAL: 73-year-old chronically ill appearing elderly -[place] male lying in bed, awake , calm currently on [facility] SKIN: Warm and dry. No rash HEAD: Normocephalic. EYES: PERRL NECK: Supple, trachea midline. New tracheostomy with minimal dry blood around the site CARDIOVASCULAR: RRR. S1, S2. No S4. No murmur RESPIRATORY: Diminished breath sounds in bases noted right greater than left. B/ L equal air entry, patient. GASTROINTESTINAL: Abdomen continues/remains distended, grimaces when deep palpation, no guarding, hypoactive bowel sounds present. Ceci shield in place PEG tube site is clean dry and intact MUSCULOSKELETAL: 1-2+ bilateral upper/ lower extremity edema, warm and well- perfused NEURO: Arousable with open eyes. Will look at you to voice. Grimaces with pain. Withdraws to pain all 4 extremities. Assessment and Plan - Assessment and Plan Plan: NEURO/Psych: Altered mental status due to CO2 retention/toxic metabolic encephalopathy -Discontinued dexmedetomidine 08/03 -F/U acetylcholine receptor and autoantibodies was negative -Currently on quetiapine 25 mg twice daily at night Holding duloxetine 20 mg daily/home medication Acetaminophen 650 by tube every 6 hours as needed fever Oxycodone/acetaminophen 5/325 1 tablet every 4 hours as needed pain CT brain 08/10 revealed no acute intracranial findings. MRI brain 08/10 revealed no acute intracranial findings EEG ordered 08 11 revealed sharps possible epileptic activity. Much improved with EEG later 08/12 Neurology following. RESP: Hypercapnic respiratory failure Acute COPD exacerbation -Extubated 06/29. Reintubated 07/02 extubated again 07/07, reintubated 07/26 -Status post tracheostomy 08/02/2018. ACV - CPAP trial with T-piece 8-12 hours as tolerated -Albuterol/ipratropium aerosols every 4 hours scheduled and albuterol aerosols every 2 hours as needed -Continue budesonide twice daily CV: Essential hypertension - Monitor HR and BP keep MAP>65mmHg -Metoprolol tartrate 25 mg by tube every 8 hours GI: Colonic ileus Elevated transaminases -negative hepatitis panel Elevated ammonia Hypoalbuminemia with moderate protein calorie malnutrition -KUB 08/10 revealed no signs of obstructive process -Given Neostigmine 07/11. -s/p repeat decompressive colonoscopy 07/10 and 07/15 -Continue pantoprazole -On docusate sodium 100 cc twice daily/senna 8.6 mg tablet twice daily, lactulose 30 cc 2 times daily, polyethylene glycol 17 g twice daily. -NG tube. 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 -Discontinued metoclopramide 10 mg every 8 hours seizure activity Patient 800 cc stool output Family agreeable to PEG tube placement. Status post 08/12 FEN//renal: Acute renal injury/nonoliguric Hypophosphatemia -Monitor renal function, I/O's, avoid nephrotoxins -Renal function stable -Renal- Dr. Figueroa has followed. Recommend hemodialysis likely 08/13 -Repletion of electrolytes as clinically indicated -Free water 200 cc every 6 hours and be resumed -08/05 C. difficile PCR-negative -Repeat renal ultrasound negative for hydronephrosis. Negative urine eosinophils 15 mmol sodium phosphate today. Recheck in a.m. -2 L plan for hemodialysis 08/13 ID: Staph epi bacteremia Enterococcus/Klebsiella pneumonia -Off abx monitor for signs of infections (Fever, WBC) WBC stable -BC and urine cx from 07/11- NG -07/02 BC: NGTS, sputum cx 07/02:normal resp justyn -ID is following- Dr. Brown PRN -Urine culture from 07/28/2018 growing Koki. Repeat cultures sent 08/02/2018 after replacing Moreno 08/10 vancomycin, cefepime times 8 days total per infectious disease recommendation - discontinued 08/10. -Currently on daptomycin and aztreonam per infectious disease since 08/13 Repeat blood cultures, UA 08/10 no growth to date HEME Normocytic anemia Thrombocytopenia -Monitor CBC, coags, Hep PLT is positive. ANNMARIE negative. Hematology is following. Off argatroban drip -s/p 2U PRBCs on 07/16, Hgb 8.8, used for hemoglobin less than 7 -Give 1 unit of PRBC and 1 pack units of platelets today in anticipation of tracheostomy -Stable thrombocytopenia-avoid medications that precipitate thrombocytopenia ENDO: -Sliding scale insulin medium scale aspart insulin every 4 hours. Continue insulin detemir 10 units twice daily TSH 1.26 PROPH: -Bilateral lower extremity SCDs. PPI -Doppler US LE negative DVT 07/02 -Continue enoxaparin 30 mg daily 08/12 for possible PEG tube placement LINES: -Utilize peripheral IVs Level 3 follow-up
--- NOTE | 2018-08-14 10:59 | P.PNNP ---
Subjective Interval history: Status post trach and PEG on ventilator Physical Exam Vital signs: Vital Signs 08/13/18 11:00 08/13/18 12:00 08/13/18 14:00 Temperature 99.4 F Pulse Rate 104 H 109 H 113 H Respiratory Rate 20 20 Blood Pressure 148/72 H Pulse Oximetry 99 08/13/18 15:00 08/13/18 15:21 08/13/18 16:00 Temperature Pulse Rate 116 H 109 H Respiratory Rate 20 20 20 Blood Pressure 148/72 H Pulse Oximetry 99 99 08/13/18 18:00 08/13/18 19:38 08/13/18 19:42 Temperature Pulse Rate 116 H 112 H Respiratory Rate 20 20 Blood Pressure Pulse Oximetry 98 08/13/18 20:00 08/13/18 22:00 08/13/18 23:32 Temperature 99.6 F Pulse Rate 112 H 114 H 107 H Respiratory Rate 20 20 Blood Pressure 145/73 H Pulse Oximetry 99 08/14/18 00:00 08/14/18 00:06 08/14/18 02:00 Temperature 99.4 F Pulse Rate 111 H 111 H Respiratory Rate 20 20 Blood Pressure 152/70 H Pulse Oximetry 100 100 08/14/18 03:41 08/14/18 04:00 08/14/18 04:09 Temperature Pulse Rate 101 H 107 H Respiratory Rate 20 20 20 Blood Pressure 159/81 H Pulse Oximetry 100 100 08/14/18 06:00 08/14/18 07:57 08/14/18 08:00 Temperature 97.4 F L Pulse Rate 105 H 99 H 100 H Respiratory Rate 20 20 Blood Pressure 160/91 H Pulse Oximetry 100 100 08/14/18 10:00 Temperature Pulse Rate 91 H Respiratory Rate Blood Pressure Pulse Oximetry Intake & Output 08/13/18 08/14/18 08/14/18 18:59 06:59 18:59 Intake Total 1092 / 1092 738 / 738 405 / 405 Output Total 2600 / 2600 800 / 800 Balance -1508 / -1508 -62 / -62 405 / 405 Weight 91.1 kg Intake: IV 405 / 405 100 / 100 405 / 405 Bumex Inj 25 mg In 100 ml @ 1 100 / 100 MG/HR 4 mls/hr IV.CONT .Q24H [facility] Rx#:[id number] Azactam Inj 1,000 MG In NS Inj 200 / 200 100 / 100 200 / 200 100 ML @ 200 mls/hr IV.SIG Q6H [facility] Rx#:[id number] Cubicin Inj 500 MG In NS Inj 100 / 100 100 ML @ 200 mls/hr IV.SIG Q48H [facility] Rx#:[id number] Keppra Inj 500 MG In NS Inj 100 105 / 105 105 / 105 ML @ 400 mls/hr IV.SIG Q12H [facility] Rx#:[id number] Tube Feeding 287 / 287 398 / 398 Water Bolus Amount 400 / 400 240 / 240 Output: Hemodialysis Amount 1999 Urine Amount (Catheter) 600 / 600 800 / 800 Indwelling Urethral Catheter 600 / 600 800 / 800 Other: Date of Last Bowel Movement 08/13/18 08/13/18 08/14/18 # Bowel Movements 1 1 Narrative: GENERAL: Well-nourished, well-developed. Status post tracheostomy on ventilator SKIN: Warm and dry. No rash. HEENT: Normocephalic. Atraumatic. Pupils equal and round. Mucous membranes pink and moist. NECK: Trachea tracheostomy in place CARDIOVASCULAR: Tachycardia RESPIRATORY: Diminished air entry at the bases on ventilator. GASTROINTESTINAL: Abdomen is slightly distended normoactive bowel sounds x4. MUSCULOSKELETAL: No obvious deformities. 2-3+ BLE edema. NEUROLOGICAL: on ventilator and sedated - Urinary Catheter Management Indwelling Urethral Catheter Cath placed during this visit: yes, but has since been removed by the nurse Reason for continuing: Acute urinary retention Insertion date: 07/14/18 Insertion time: 21:55 Removal date: 08/02/18 Removal time: 07:59 Straight Cath placed during this visit: yes Reason for continuing: Acute urinary retention Insertion date: 08/11/18 Insertion time: 10:48 Condom Cath placed during this visit: no Indwelling Temp Sensing Catheter Cath placed during this visit: yes, but has since been removed by the nurse Reason for continuing: Decision to DC catheter Insertion date: 08/02/18 Insertion time: 08:00 Removal date: 08/09/18 Removal time: 18:30 Assessment and Plan - Assessment (1) Acute renal failure Code(s): N17.9 - Acute kidney failure, unspecified Status: Acute (2) Anasarca Code(s): R60.1 - Generalized edema Status: Acute (3) Abdominal distention Code(s): R14.0 - Abdominal distension (gaseous) Status: Acute (4) Ileus Code(s): K56.7 - Ileus, unspecified Status: Acute - Plan Patient seen and examined, Status post tracheostomy On ventilator Patient requires hemodialysis 2 L were taken off yesterday next dialysis tomorrow Procrit increased to 10,000 from tomorrow
[2018-08-14] MEDS ORDERED: Sodium Glycerophosphate Inj 15 MMOL in Sodium Chlor 0.9% Inj 150 ML IV.SIG ONE (11:00)
--- NOTE | 2018-08-14 17:15 | P.PNPL ---
Subjective Interval history: 73 YOAA male with COPD, 02 dependent Follows at [facility] Admitted with AMS, COPD exac. On Vent via trach Awake, follows commands Physical Exam Vital signs: Vital Signs 08/13/18 18:00 08/13/18 19:38 08/13/18 19:42 Temperature Pulse Rate 116 H 112 H Respiratory Rate 20 20 Blood Pressure Pulse Oximetry 98 08/13/18 20:00 08/13/18 22:00 08/13/18 23:32 Temperature 99.6 F Pulse Rate 112 H 114 H 107 H Respiratory Rate 20 20 Blood Pressure 145/73 H Pulse Oximetry 99 08/14/18 00:00 08/14/18 00:06 08/14/18 02:00 Temperature 99.4 F Pulse Rate 111 H 111 H Respiratory Rate 20 20 Blood Pressure 152/70 H Pulse Oximetry 100 100 08/14/18 03:41 08/14/18 04:00 08/14/18 04:09 Temperature Pulse Rate 101 H 107 H Respiratory Rate 20 20 20 Blood Pressure 159/81 H Pulse Oximetry 100 100 08/14/18 06:00 08/14/18 07:57 08/14/18 08:00 Temperature 97.4 F L Pulse Rate 105 H 99 H 100 H Respiratory Rate 20 20 Blood Pressure 160/91 H Pulse Oximetry 100 100 08/14/18 10:00 08/14/18 11:49 08/14/18 12:00 Temperature 98.8 F Pulse Rate 91 H 93 H 91 H Respiratory Rate 20 20 Blood Pressure 161/77 H Pulse Oximetry 100 100 08/14/18 14:00 08/14/18 16:00 08/14/18 16:23 Temperature Pulse Rate 96 H 90 93 H Respiratory Rate 20 Blood Pressure Pulse Oximetry 100 Intake & Output 08/13/18 08/14/18 08/14/18 18:59 06:59 18:59 Intake Total 1092 / 1092 738 / 738 670 / 670 Output Total 2600 / 2600 800 / 800 Balance -1508 / -1508 -62 / -62 670 / 670 Weight 91.1 kg Intake: IV 405 / 405 100 / 100 670 / 670 Bumex Inj 25 mg In 100 ml @ 1 100 / 100 MG/HR 4 mls/hr IV.CONT .Q24H [facility] Rx#:[id number] Azactam Inj 1,000 MG In NS Inj 200 / 200 100 / 100 300 / 300 100 ML @ 200 mls/hr IV.SIG Q6H [facility] Rx#:[id number] Cubicin Inj 500 MG In NS Inj 100 / 100 100 ML @ 200 mls/hr IV.SIG Q48H [facility] Rx#:[id number] Glycophos Inj 15 MMOL In NS Inj 165 / 165 150 ML @ 40 mls/hr IV.SIG ONCE ONE Rx#:[id number] Keppra Inj 500 MG In NS Inj 100 105 / 105 105 / 105 ML @ 400 mls/hr IV.SIG Q12H [facility] Rx#:[id number] Tube Feeding 287 / 287 398 / 398 Water Bolus Amount 400 / 400 240 / 240 Output: Hemodialysis Amount 1999 / 1999 Urine Amount (Catheter) 600 / 600 800 / 800 Indwelling Urethral Catheter 600 / 600 800 / 800 Other: Date of Last Bowel Movement 08/13/18 08/13/18 08/14/18 # Bowel Movements 1 1 GENERAL: Elderly AA male, on Vent SKIN: Warm and dry. HEAD: Normocephalic. EYES: No scleral icterus. No injection or drainage. NECK: Supple, trachea midline. No JVD or lymphadenopathy. has trach CARDIOVASCULAR: Regular rate and rhythm without murmurs, gallops, or rubs. RESPIRATORY: Breath sounds equal bilaterally. No accessory muscle use. GASTROINTESTINAL: Abdomen soft, non-tender, nondistended. has PEG MUSCULOSKELETAL: No cyanosis, or edema. BACK: Nontender without obvious deformity. No CVA tenderness. - Urinary Catheter Management Indwelling Urethral Catheter Cath placed during this visit: yes, but has since been removed by the nurse Reason for continuing: Acute urinary retention Insertion date: 07/14/18 Insertion time: 21:55 Removal date: 08/02/18 Removal time: 07:59 Straight Cath placed during this visit: yes Reason for continuing: Acute urinary retention Insertion date: 08/11/18 Insertion time: 10:48 Condom Cath placed during this visit: no Indwelling Temp Sensing Catheter Cath placed during this visit: yes, but has since been removed by the nurse Reason for continuing: Decision to DC catheter Insertion date: 08/02/18 Insertion time: 08:00 Removal date: 08/09/18 Removal time: 18:30 Assessment and Plan - Plan IMPRESSION: Hypercapnoic RF, COPD exac AMS improved 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 Abdominal distension, s/p decompression. Ileus Seizure. Renal failure PLAN: Cont Vent support PC AC 20, Fi02 35%,IT 1.0 Daily CPAP trial Trach care Aerosol nebs Supplement 02 Monitor H/H Cont Keppra Tube feeding DC plans underway for [facility].
[2018-08-15] MEDS: Insulin NovoLOG Aspart Correctional Sugar Inj SQ SCH ×5 (01:30→16:31)
[2018-08-15] MEDS: Artificial Tears Opth Drops 15 ML Bottle EACH EYE SCH ×3 (02:47→16:31)
[2018-08-15 07:44] LABS: Baso % (Auto) 0.5 % (0.0-2.0); Eos # (Auto) 0.1 th/mm3 (0.0-0.4); Eos % (Auto) 1.3 % (0.0-4.0); Lymph # (Auto) 1.2 th/mm3 (1.0-4.8); Lymph % (Auto) 12.7 % (9.0-44.0); Mean Corpuscular Hemoglobin 31.2 pg (27.0-34.0); Mean Corpuscular Volume 91.8 fL (80.0-100.0); Mean Platelet Volume 9.6 fL (7.0-11.0); Mono # (Auto) 1.2 th/mm3 (0.0-0.9); Mono % (Auto) 13.1 % (0.0-8.0); Neut # (Auto) 6.9 th/mm3 (1.8-7.7); Neut % (Auto) 72.4 % (16.0-70.0); Platelet Count 155 th/mm3 (150-450); Red Blood Count 2.15 mil/mm3 (4.50-5.90); Red Cell Distribution Width 16.8 % (11.6-17.2); White Blood Count 9.5 th/mm3 (4.0-11.0)
[2018-08-15 07:49] LABS: Hematocrit 19.8 % (39.0-51.0); Hemoglobin 6.7 gm/dL (13.0-17.0)
[2018-08-15 08:02] LABS: Alanine Aminotransferase 73 U/L (12-78); Albumin 2.5 g/dL (3.4-5.0); Anion Gap 9 meq/L (5-15); Aspartate Aminotransferase 78 U/L (15-37); Blood Urea Nitrogen 43 mg/dL (7-18); Calcium 7.6 mg/dL (8.5-10.1); Carbon Dioxide 28.4 meq/L (21.0-32.0); Chloride 105 meq/L (98-107); Glomerular Filtration Rate 25 mL/min (>89); Glucose,Random 86 mg/dL (74-106); Phosphorus 1.8 mg/dL (2.5-4.9); Potassium 3.4 meq/L (3.5-5.1); Sodium 142 meq/L (136-145)
[2018-08-15 08:04] LABS: Alkaline Phosphatase 264 U/L (45-117); Total Protein 6.3 g/dL (6.4-8.2)
[2018-08-15 08:14] LABS: Eosinophils 2 % (0-4); Lymphocytes 11 % (9-44); Metamyelocytes 1 % (0-1); Monocytes 12 % (0-8); Myelocytes 2 % (0-0); Tallied Nucleated RBC 2 (0-0)
[2018-08-15 08:15] LABS: Platelet Estimate Normal (Normal); Platelet Morphology Normal (Normal)
--- NOTE | 2018-08-15 08:19 | P.PNCC ---
Subjective Subjective Remarks/Hospital Course: Mr. Curry is a 73-year-old -[place] male with past medical history significant for COPD on 3 L nasal cannula, hypertension, hyperlipidemia and anxiety who was admitted to the hospitalist service on 06/19/2018 for worsening shortness of breath due to COPD exacerbation. He was treated with IV Solu- Medrol, IV antibiotics, breathing treatments gradually improved. Patient was also complaining about dyspepsia and underwent EGD by GI yesterday. Per report the EGD was normal but patient developed worsening shortness of breath and COPD exacerbation postprocedure, possibly from aspiration after sedated. Two ABGs done yesterday showed hypercapnic respiratory failure second 1 was on BiPAP and this was improved with pH 7.3 with PCO2 of 74. Patient remained on BiPAP overnight however was noticed to be lethargic today a.m., stat ABG showed pH of 7.21 PCO2 110 PO2 88 while on BiPAP. Patient was lethargic intermittently dozing off due to CO2 narcosis. Critical care medicine was consulted and I immediately evaluated the patient. Patient had obviously failed BiPAP I proceeded with endotracheal intubation placed on mechanical ventilation. Postintubation I have ordered single dose of Solu-Medrol 125 mg x1 continue Solu -Medrol 60 every 8, discontinue ceftriaxone and start cefepime 2 g IV every 8 hours continue azithromycin. Add budesonide inhaled, placed on scheduled DuoNeb every 4 hours and as needed. 06/27: Patient was intubated yesterday for severe hypercapnic respiratory failure. Currently remains intubated sedated and intubated remains diminished bilaterally. Heavily sedated for ventilator synchrony 06/28: Urine output significantly improved with fluid resuscitation. Creat down trending now 2 from 2.3, UO >3.3 L. Remains intubated sedated. Will initiate daily sedation vacation and CPAP trials 06/29: More awake today tolerating CPAP trials intermittently follows commands but gets agitated/frustrated fast. Urine output remains excellent creatinine 1.4. However sodium increasing 158 today. Night custom framing specialist had changed fluid to D5 W for free water replacement. Due to hypoglycemia will change to quarter normal saline at 150 mL/h repeat CMP in the afternoon 06/30 Patient was extubated yesterday. Awake 07/01 Patient is lying in bed in NAD. T: 100.5 07/02: Intubated early this morning due to acute hypoxic respiratory failure. Central line placed due to hypotension. Plan for GI perform endoscopic decompression of this large bowel today. Arousable and does follow commands. Placed on argatroban 07/03: Currently, intubated with borderline blood pressure. Central line placed yesterday due to hypotension. Did not move bowels despite 1 L of fluid from colonoscopy yesterday and multiple laxatives provided. See orders for additional laxatives today. Might need neostigmine. 07/04 Patient remains intubated and sedated with Diprivan. Given Neostigmine last night. KUB this morning showed colonic ileus. Afebrile. On Argatroban. 07/05 No events overnight, sedated with Diprivan and intubated. Off Argatroban. 07/06 Patient remains intubated and sedated. Afebrile. 07/07 Patient remains intubated, s/p decompressive colonoscopy yesterday. Awake. 07/08 Patient s/p extubation yesterday. Awake and alert. 07/09 Patient is awake, alert lying in bed in NAD. Afebrile. 07/10 Patient is awake and alert, Afebrile. 07/11 Patient s/p decompressive colonoscopy yesterday. Afebrile. On Lasix drip.( UOP: 2800ml overnight). Cr: 3.0 from 2.25. 07/12 Patient is awake, alert given Neostigmine overnight. NGT to LIWS, off Lasix drip. 07/13: Resting comfortably in bed in no acute distress. 3 bowel movements documented. Remains n.p.o. Bladder pressures around 6. Potassium being replaced. Remains anemic around 7. 07/14 Patient is lying in bed in NAD. Afebrile. 07/15 No events overnight. Afebrile. 07/16: Resting in bed mild distress. Abdomen remains distended. Hemoglobin has dropped to 6.2 2 units of PRBC ordered. Patient underwent decompressive colonoscopy by Dr. Berrios for colonic ileus 07/17: No significant overnight events, patient states that he wants to get out of bed to a chair as he is having rectal discomfort. 07/18: Patient reportedly had a BM after digital rectal exam yesterday, states that he's been passing flatus "every now and then" overnight. No plans for OR or sigmoidoscopy as per colorectal service, [place] [facility] [place]: Patient transferred to [facility] yesterday, complained of shortness of breath again today. An ABG showed a pCO2 of 79 so he was placed on bipap and transferred to [facility]. Most recent ABG shows pCO2 of 66, KUB still has abdominal distension but appears to be improved when compared to KUB from 07/15. Patient has reportedly been having bowel movements and passing flatus overnight. 07/20: No dramatic improvement in abdominal distention however abdomen soft. The patient was able to breathe comfortably overnight and remained alert. This morning the BiPAP mask was removed for half an hour and the patient did well without evidence of CO2 retention or somnolence. Reconsult note 07/23: The patient was a halicat from the [facility] floor. Patient was noted to be somnolent, had difficulty breathing. Stat ABG was performed revealing a PCO2 of 113. The patient was placed on BiPAP and [place] [facility] [place] Currently remains on CPAP respiratory rate is 25 , 16/5 with an FiO2 35%. 07/24: Overnight the patient was placed on BiPAP 10/5 refusing BiPAP pulling out IVs. The patient became tachycardic refusing p.o. medications. The patient was placed on a Cardizem infusion currently at 5 mg an hour. Patient is more compliant at this time the patient's BiPAP settings were increased to 15 /5 35% stat ABGs were ordered the patient was noted to have a PCO2 of 89, continues with hypercapnic respiratory failure in the setting of severe COPD. Extensive discussion with family at bedside the patient's sister and daughter provided medical status update on recent transfer to ICU and current standing. Inform family that patient is at risk for for emergent intubation. Repeat ABG pending this evening. 07/25: Patient noted to have episodes of agitation continually removing BiPAP. I discussed with patient the criticality of his illness and possible intubation patient now agrees to wear BiPAP with exception of meals. Patient's diet was advanced to clear liquid noted improvement of chest x-ray patient is noted to have last bowel movement approximately 2 days ago we will continue to monitor and follow-up GI recommendations . Noted electrolyte repletion at this time. PCO2 now in the 60s. 07/26: Patient continues to be noncompliant with BiPAP mask. ABGs obtained noting a PO2 of 45.6. The patient was emergently intubated this afternoon. Chest x-ray and repeat ABG pending at this time. Noted patient's last bowel movement last night. 07/27: Afebrile. Remains on ventilator. Will start tube feeding today. BM noted overnight. Replacing potassium phosphate, calcium chloride x1 now. And magnesium sulfate 07/28: Afebrile. Did not tolerate CPAP trial the same. Tolerating tube feeds today. Last bowel movement yesterday 09/26. Mild ileus on abdominal x-ray today. 07/29: Afebrile. Tolerated CPAP times 3 hours. He is intolerant to P. 2 bowel movements. Abdominal x-ray unchanged but no signs of obstructive or ileus. 07/30: Afebrile. Currently on CPAP trials. Positive BM. No change in neurological status. Increasing metoprolol to 5 mg IV every 6 hours. 07/31: Again on CPAP trials. Awake and alert on dexmedetomidine drip. Will put on metoprolol tartrate 25 mg every 8 hours and titrate. Positive BM. Recheck KUB in a.m. 08/01. 08/01: Currently tolerating CPAP, but requiring 15 pressure support. Patient had been intubated 3 times this admission, according to the caregiver and go from had to do patient's a total of several intubation in the last 2-3 months. I discussed with the patient was agreeable for tracheostomy, I also discussed with Stephanie patient's daughter and she has given consent for tracheostomy. Plan for tracheostomy tomorrow 08/02: Patient currently on Precedex awake alert not tolerating CPAP trials. Plan for tracheostomy today. Transfuse 1 unit PRBC 1 pack units of platelets prior to trach 08/03: Patient remains calm on the vent currently tolerating pressure support 06/06. Status post tracheostomy yesterday no significant bleeding. Platelet count 103 today. 08/04: Patient placed on CPAP trials this a.m. and continues without difficulty. Precedex infusion currently at 1.5 mcgs/kg/hour. Tentative plan for PEG tube placement procedure on hold awaiting discussion with family, POA. Patient continues to have large bowel movements. 08/05: Continued copious large bowel movement. Fecal containment device / Dignashield applied. Placement of PEG tube continues to be on hold ,due to the inability to contact the POA. 08/06: Palliative care child study team director Ms. Pittman had extensive meeting with the patient's POA tentative plan for placement of PEG tube. 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 Brown infectious disease. Patient continues to be agitated and requires Precedex infusion currently at 1.5, plan to initiate Seroquel this evening and attempts to decrease agitation, and subsequently discontinue Precedex infusion. The patient has been initiated on trach collar trials and continues greater than 6 hours. 08/07: No acute events overnight. GI consult for PEG placement. Tolerating tube feeds. 08/08: The patient tolerated T-piece for approximately 10 hours. Patient placed back on CPAP this evening. Agitation resolved with ministration of Seroquel. Patient responding to questions nodding head yes and no. 08/09: Currently on vent support, tolerates CPAP. Attempt T-piece daily, check chest x-ray today repeat labs in a.m. 08/10: T-max 100. Remains tachycardic. More lethargic today. Leaking around tracheostomy site. Increasing rate and tidal volume. 08/11: Currently afebrile. Remains tachycardic. Remains lethargic withdraws but not following commands. Negative CT and MRI of brain. EEG pending. Worsening renal failure noted. Decreased urine output. Having copious bowel movements. 08/12: Received 4 mg lorazepam yesterday due to possible seizure activity. Did not appear to be akathisia movements versus tardive dyskinesia. Currently on levetiracetam 5 mg twice daily. Will adjust for renal respiratory neurology consultation patient. EEG results pending. Negative MRI brain 08/10. Plan for PEG tube placement today likely hemodialysis 08/13: Status post PEG tube yesterday. Will likely start tube feeds today. Hemodialysis -2 L plan. More arousable today. 08/14: Patient is currently arousable and afebrile. Attempted to transfer to [facility]. Tolerating tube feeding. Positive BM. Phosphorus being replaced today. Subjective 08/15: Patient is currently arousable and complaining of low back pain. Will reposition in bed. Fecal containment device is out. [facility] will talk to family about transfer. Phosphorus being replaced along with 2 units PRBCs. No signs of active bleeding. Objective Vital Signs / I&O: Vital Signs 08/14/18 10:00 08/14/18 11:49 08/14/18 12:00 Temperature 98.8 F Pulse Rate 91 H 93 H 91 H Respiratory Rate 20 20 Blood Pressure 161/77 H Pulse Oximetry 100 100 08/14/18 14:00 08/14/18 16:00 08/14/18 16:23 Temperature 98.4 F Pulse Rate 96 H 98 H 93 H Respiratory Rate 21 20 Blood Pressure 157/77 H Pulse Oximetry 100 100 08/14/18 18:00 08/14/18 19:25 08/14/18 19:27 Temperature Pulse Rate 85 92 H Respiratory Rate 21 20 Blood Pressure Pulse Oximetry 100 08/14/18 20:00 08/14/18 22:00 08/14/18 23:06 Temperature 99.6 F Pulse Rate 94 H 106 H 101 H Respiratory Rate 20 20 Blood Pressure 129/77 Pulse Oximetry 100 08/15/18 00:00 08/15/18 00:13 08/15/18 02:00 Temperature 98.8 F Pulse Rate 104 H 103 H Respiratory Rate 20 20 Blood Pressure 129/65 Pulse Oximetry 99 100 08/15/18 03:23 08/15/18 03:24 08/15/18 04:00 Temperature 98.8 F Pulse Rate 109 H 100 H Respiratory Rate 21 21 20 Blood Pressure 154/78 H Pulse Oximetry 100 99 08/15/18 06:00 08/15/18 07:00 08/15/18 07:53 Temperature Pulse Rate 104 H 101 H Respiratory Rate 23 20 Blood Pressure Pulse Oximetry 100 Intake & Output 08/14/18 08/15/18 08/15/18 18:59 06:59 18:59 Intake Total 670 / 670 1600 / 1600 Output Total 800 / 800 450 / 450 Balance -130 / -130 1150 / 1150 Weight 90 kg Intake: IV 670 / 670 100 / 100 Bumex Inj 25 mg In 100 ml @ 1 100 / 100 MG/HR 4 mls/hr IV.CONT .Q24H [facility] Rx#:[id number] Azactam Inj 1,000 MG In NS Inj 300 / 300 100 / 100 100 ML @ 200 mls/hr IV.SIG Q6H [facility] Rx#:[id number] Glycophos Inj 15 MMOL In NS Inj 165 / 165 150 ML @ 40 mls/hr IV.SIG ONCE ONE Rx#:[id number] Keppra Inj 500 MG In NS Inj 100 105 / 105 ML @ 400 mls/hr IV.SIG Q12H [facility] Rx#:[id number] Tube Feeding 1100 / 1100 Water Bolus Amount 400 / 400 Output: Urine Amount (Catheter) 800 / 800 450 / 450 Indwelling Urethral Catheter 800 / 800 450 / 450 Other: Date of Last Bowel Movement 08/14/18 08/15/18 # Bowel Movements 3 1 Result Diagrams: 08/15/18 07:02 08/15/18 07:02 Other Results: Microbiology 08/10/18 10:30 Blood - Peripheral Aerobic Blood Culture - Preliminary No growth in 4 days 08/10/18 10:30 Blood - Peripheral Anaerobic Blood Culture - Preliminary No growth in 4 days 08/10/18 10:51 Blood - Peripheral Aerobic Blood Culture - Preliminary No growth in 4 days 08/10/18 10:51 Blood - Peripheral Anaerobic Blood Culture - Preliminary No growth in 4 days 08/10/18 08:45 Clean Catch Urine Urine Culture - Final 10-50,000 cfu/mL mixed gram positive justyn (probable contaminants) 08/03/18 14:30 Blood - Peripheral Aerobic Blood Culture - Final No growth in 5 days 08/03/18 14:30 Blood - Peripheral Anaerobic Blood Culture - Final Staphylococcus epidermidis 08/03/18 14:56 Blood - Peripheral Aerobic Blood Culture - Final Staphylococcus coag negative 08/03/18 14:56 Blood - Peripheral Anaerobic Blood Culture - Final Staphylococcus epidermidis 08/02/18 09:30 Catheterized Urine Urine Culture - Final Enterococcus faecalis Klebsiella pneumoniae 11/26/18 06:00 Catheterized Urine Urine Culture - Final Koki albicans 07/11/18 13:50 Blood - Peripheral Aerobic Blood Culture - Final No growth in 5 days 07/11/18 13:50 Blood - Peripheral Anaerobic Blood Culture - Final No growth in 5 days 07/11/18 02:48 Blood - Peripheral Aerobic Blood Culture - Final No growth in 5 days 07/11/18 02:48 Blood - Peripheral Anaerobic Blood Culture - Final No growth in 5 days 07/11/18 16:50 Clean Catch Urine Urine Culture - Final No growth in 48 hours 07/09/18 00:30 Stool Cryptosporidium Antigen - Final Negative - No Cryptosporicium antigen detected In selected cases of patients with a history of immunosuppression or foreign travel, a full ova and parasites examination may be desired. Contact the microbiology lab if full workup is indicated and subit another specimen for testing. 07/09/18 00:30 Stool Giardia Antigen (GERONIMO) - Final Negative - No Giardia Antigen detected In selected cases of patients with a history of immunosuppression or foreign travel, a full ova and parasites examination may be desired. Contact the microbiology lab if full workup is indicated and subit another specimen for testing. 07/02/18 05:41 Blood - Peripheral Aerobic Blood Culture - Final No growth in 5 days 07/02/18 05:41 Blood - Peripheral Anaerobic Blood Culture - Final No growth in 5 days 07/02/18 05:47 Blood - Peripheral Aerobic Blood Culture - Final No growth in 5 days 07/02/18 05:47 Blood - Peripheral Anaerobic Blood Culture - Final No growth in 5 days 07/02/18 22:00 Sputum - Endotracheal Gram Stain - Final 07/02/18 22:00 Sputum - Endotracheal Sputum Culture - Final Heavy growth normal respiratory justyn 06/26/18 10:10 Sputum - Endotracheal Gram Stain - Final 06/26/18 10:10 Sputum - Endotracheal Sputum Culture - Final Light growth normal respiratory justyn Imaging: Chest X-Ray 06/19/18 20:38 CONCLUSION: No evidence of acute cardiopulmonary disease. Abdomen Ultrasound 06/21/18 00:00 CONCLUSION: 1. No ascites is identified within the abdomen. Abdomen X-Ray 06/21/18 00:00 CONCLUSION: No acute findings. Mild constipation. Chest X-Ray 06/23/18 00:00 CONCLUSION: 1. No acute abnormality or significant interval change. Abdomen/Pelvis CT 06/24/18 00:00 CONCLUSION: 1. Benign appearing right adrenal mass. 2. No acute CT findings in the abdomen or pelvis. Chest X-Ray 06/25/18 00:00 CONCLUSION: Suspected mild atelectasis or consolidation at the medial right base. Chest X-Ray 06/26/18 00:00 CONCLUSION: 1. Endotracheal tube is appropriately positioned above the christy. 2. Nasogastric tube traverses the GE junction and is curled in the gastric lumen. 3. Lungs are clear. Abdomen X-Ray 06/26/18 09:21 CONCLUSION: 1. Nonobstructive bowel gas pattern without pneumoperitoneum. 2. Nasogastric tube is curled in the expected location of the gastric body. I believe the portions of the tube identified over the heart shadow is probably projectional as there is no evidence of a significant hiatal hernia on the most recent CT of the abdomen. Chest X-Ray 06/26/18 15:37 CONCLUSION: 1. Lungs remain clear. 2. Interval placement of a right IJ central venous catheter with the tip projecting over the central venous system. No pneumothorax. 3. Endotracheal and nasogastric tubes remain appropriately positioned. Abdomen/Bladder Ultrasound 06/28/18 00:00 CONCLUSION: 1. Echogenic kidneys characteristic of medical renal disease. No hydronephrosis. Bladder decompressed by Moreno Chest X-Ray 06/28/18 06:00 CONCLUSION: The lungs are clear. Lines and tubes stable. Chest X-Ray 06/29/18 06:00 CONCLUSION: The lungs are clear. Lines and tubes stable. Venous Doppler Study 07/01/18 00:00 CONCLUSION: 1. The study is negative for bilateral lower extremity deep venous thrombosis. Chest X-Ray 07/01/18 20:41 CONCLUSION: Negative examination. Chest CTA 07/02/18 00:00 CONCLUSION: 1. No pulmonary embolus. 2. Diffuse but basilar predominant bilateral airspace disease. 3. Endotracheal and endobronchial secretions are demonstrated. 4. Moderate emphysema. 5. Left ventricular hypertrophy. Venous Doppler Study 07/02/18 00:00 CONCLUSION: 1. Limited, no evidence for thrombosis. Chest X-Ray 07/02/18 04:04 CONCLUSION: 1. Interim intubation and nasogastric tube placement as above. 2. Mild bibasilar atelectasis has developed. Abdomen/Pelvis CT 07/02/18 04:20 CONCLUSION: Colonic distention most likely representing moderate adynamic ileus. However, distal sigmoid colon is decompressed and a sigmoid stricture is conceivable but considered less likely. Apparent mild proctitis. Clinical surveillance and follow-up CT recommended. Chest X-Ray 07/02/18 14:46 CONCLUSION: Left IJ line in good position. There is no pneumothorax. Abdomen X-Ray 07/04/18 00:01 CONCLUSION: Findings of colonic ileus Chest X-Ray 07/04/18 06:00 CONCLUSION: Cardiomegaly and findings of vascular congestion without overt failure. There has been no significant change when compared to the prior exam. Abdomen X-Ray 07/05/18 07:08 CONCLUSION: No significant interval change with persistent diffuse air-filled distention of the colon suggesting ileus. Chest X-Ray 07/07/18 07:12 CONCLUSION: Minimal bibasilar densities likely atelectasis. Abdomen X-Ray 07/07/18 07:13 CONCLUSION: Gaseous distention of multiple bowel loops has improved since previous study. Abdomen X-Ray 07/09/18 07:14 CONCLUSION: 1. Apparent interval removal of NGT. 2. Improving bowel gas pattern consistent with improving adynamic ileus. Abdomen/Pelvis CT 07/10/18 08:31 CONCLUSION: 1. There is gas and fluid distending the colon. The patient has a rectal tube in place however the rectal tube is kinked back on itself and occluded. The overall size of the colon has mildly increased when compared to previous exam. The small bowel is normal in caliber. 2. Interval development of a small left basilar effusion and atelectasis. Chest X-Ray 07/10/18 08:42 CONCLUSION: Mild patchy bilateral lung base opacity likely representing atelectasis unchanged. Small left pleural effusion now seen. Abdomen X-Ray 07/11/18 00:00 CONCLUSION: 1. Questionable NGT at the GE junction, as above. 2. Moderately improved colonic distention. Abdomen X-Ray 07/12/18 00:00 CONCLUSION: Probable generalized ileus. No abrupt caliber changes are seen. No free air. Nasogastric tube tip is in the upper stomach. No gastric distention seen. Abdomen X-Ray 07/14/18 06:00 CONCLUSION: Distended air-filled colon. Ileus is the most likely etiology for this pattern. Abdomen X-Ray 07/15/18 00:00 CONCLUSION: Persistent air-filled loops of small and large bowel suggesting probably ileus. Clinical correlation is recommended. Venous Doppler Study 07/15/18 00:00 CONCLUSION: 1. Limited suboptimal examination. 2. Nonocclusive thrombus in the jugular vein. Chest X-Ray 07/16/18 10:00 CONCLUSION: Mild bibasilar consolidations, presumably atelectasis is unchanged. Abdomen X-Ray 07/19/18 14:09 CONCLUSION: Negative examination. Chest X-Ray 07/19/18 14:10 CONCLUSION: 1. No acute cardiopulmonary disease. 2. Mild degenerative changes and scoliosis of the thoracic spine. Chest X-Ray 07/23/18 00:00 CONCLUSION: Negative examination. Chest X-Ray 07/24/18 00:00 CONCLUSION: Mild bibasilar consolidation. Chest X-Ray 07/25/18 04:00 CONCLUSION: Previous basilar opacity has resolved. No new infiltrate or effusion. Abdomen X-Ray 07/26/18 00:00 CONCLUSION: Orogastric tube tip is in the distal stomach or proximal duodenum. Chest X-Ray 07/26/18 17:00 CONCLUSION: 1. ETT in good position. 2. No acute abnormality. Chest X-Ray 07/27/18 04:00 CONCLUSION: Endotracheal tube and nasogastric tube in good position. Minimal dependent atelectasis in the lungs. Abdomen X-Ray 07/28/18 00:01 CONCLUSION: Mild ileus. No evidence for obstruction or free air. Chest X-Ray 07/28/18 06:00 CONCLUSION: Mild basilar atelectasis. No effusion or pneumothorax. Abdomen X-Ray 07/29/18 00:01 CONCLUSION: NG tip in duodenum. No acute findings. Chest X-Ray 07/29/18 06:00 CONCLUSION: Endotracheal tube and nasogastric tube unchanged. Stable to slight increase in basilar airspace disease since July 28. Chest X-Ray 07/30/18 06:00 CONCLUSION: Stable exam compared with July 22, 2017 with support apparatus in good position. Abdomen X-Ray 07/30/18 15:07 CONCLUSION: Benign-appearing KUB. Chest X-Ray 07/31/18 06:00 CONCLUSION: Increase in basilar airspace disease since July 30. Support apparatus unchanged. Chest X-Ray 08/01/18 06:00 CONCLUSION: Mild improvement in the bibasilar airspace opacity. Abdomen X-Ray 08/01/18 09:59 CONCLUSION: NG tube in place. Mild gaseous distention of portions of colon. Chest X-Ray 08/02/18 06:00 CONCLUSION: Stable chest x-ray with mild bibasilar opacity representing either atelectasis or consolidation. Chest X-Ray 08/03/18 06:00 CONCLUSION: Stable bibasilar airspace opacity representing either atelectasis or airspace consolidation. There is also a questionable hazy opacity at the right base which could indicate a small pleural effusion. Chest X-Ray 08/09/18 00:00 CONCLUSION: No significant change. Head MRI 08/10/18 00:00 CONCLUSION: No acute intracranial abnormality is identified. Abdomen/Bladder Ultrasound 08/10/18 08:23 CONCLUSION: 1. Normal sonographic evaluation of the kidneys. 2. No evidence of hydronephrosis. 3. Decompressed bladder. Head CT 08/10/18 15:53 CONCLUSION: Stable noncontrast head CT. No acute intracranial abnormality is identified. . Abdomen X-Ray 08/11/18 00:00 CONCLUSION: Relative paucity of bowel gas with is a gastric tube remain in place. There is no distended bowel loops identified. Chest X-Ray 08/11/18 06:00 CONCLUSION: Decrease in bilateral pulmonary opacity indicating decreased pulmonary edema or infection. Chest X-Ray 08/12/18 06:00 CONCLUSION: Increased right lung base opacity indicating either parenchymal opacity or pleural effusion. Chest X-Ray 08/12/18 09:39 CONCLUSION: 1. Interval placement of right internal jugular central venous line with no pneumothorax. 2. Stable increased opacity at the right lung base. 3. The left costophrenic angle is mildly blunted most characteristic of a small effusion. Chest X-Ray 08/13/18 06:00 CONCLUSION: Nasogastric tube no longer seen. No other significant interval change with persistent bilateral lower lung zone predominant opacity. Chest X-Ray 08/14/18 06:00 CONCLUSION: No significant interval change with persistent bilateral pulmonary opacity. Objective Remarks: GENERAL: 73-year-old chronically ill appearing elderly -[place] male lying in bed, awake , calm currently on [facility] SKIN: Warm and dry. No rash HEAD: Normocephalic. EYES: PERRL NECK: Supple, trachea midline. New tracheostomy with minimal dry blood around the site right IJ hemodialysis catheter is clean dry and intact CARDIOVASCULAR: RRR. S1, S2. No S4. No murmur RESPIRATORY: Diminished breath sounds in bases noted right greater than left. B/ L equal air entry, patient. GASTROINTESTINAL: Abdomen continues/remains distended, grimaces when deep palpation, no guarding, hypoactive bowel sounds present. PEG tube site is clean dry and intact MUSCULOSKELETAL: He is to one-point bilateral upper/ lower extremity edema, warm and well-perfused NEURO: Arousable with open eyes. Will look at you to voice. Grimaces with pain. Withdraws to pain all 4 extremities. Nods head to questions Assessment and Plan - Assessment and Plan Plan: NEURO/Psych: Altered mental status due to CO2 retention/toxic metabolic encephalopathy -Discontinued dexmedetomidine 08/03 -F/U acetylcholine receptor and autoantibodies was negative -Currently on quetiapine 25 mg twice daily at night Holding duloxetine 20 mg daily/home medication Acetaminophen 650 by tube every 6 hours as needed fever Oxycodone/acetaminophen 5/325 1 tablet every 4 hours as needed pain CT brain 08/10 revealed no acute intracranial findings. MRI brain 08/10 revealed no acute intracranial findings EEG ordered 08 11 revealed sharps possible epileptic activity. Much improved with EEG later 08/12 Neurology has followed/Dr. Pantoja RESP: Hypercapnic respiratory failure Acute COPD exacerbation -Extubated 06/29. Reintubated 07/02 extubated again 07/07, reintubated 07/26 -Status post tracheostomy 08/02/2018. ACV - CPAP trial with T-piece 8-12 hours as tolerated -Albuterol/ipratropium aerosols every 4 hours scheduled and albuterol aerosols every 2 hours as needed -Continue budesonide twice daily -Pulmonary/Dr. Iraheta is following CV: Essential hypertension - Monitor HR and BP keep MAP>65mmHg -Metoprolol tartrate 25 mg by tube every 8 hours GI: Colonic ileus Elevated transaminases -negative hepatitis panel Elevated ammonia Hypoalbuminemia with moderate protein calorie malnutrition -KUB 08/10 revealed no signs of obstructive process -Given Neostigmine 07/11. -s/p repeat decompressive colonoscopy 07/10 and 07/15 -Continue pantoprazole -On docusate sodium 100 cc twice daily/senna 8.6 mg tablet twice daily, lactulose 30 cc 2 times daily, polyethylene glycol 17 g twice daily. -NG tube. 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 -Discontinued metoclopramide 10 mg every 8 hours seizure activity Patient 1 bowel movement document Family agreeable to PEG tube placement. Status post 08/12 FEN//renal: Acute renal injury/nonoliguric Hypophosphatemia -Monitor renal function, I/O's, avoid nephrotoxins -Renal function stable -Renal- Dr. Figueroa has followed. Recommend hemodialysis likely 08/13 -Repletion of electrolytes as clinically indicated -Free water 200 cc every 6 hours and be resumed -08/05 C. difficile PCR-negative -Repeat renal ultrasound negative for hydronephrosis. Negative urine eosinophils 15 mmol sodium phosphate today. Recheck in a.m. -2 L plan for hemodialysis 08/13 likely today recheck 08/15 ID: Staph epi bacteremia Enterococcus/Klebsiella pneumonia -Off abx monitor for signs of infections (Fever, WBC) WBC stable -BC and urine cx from 07/11- NG -07/02 BC: NGTS, sputum cx 07/02:normal resp justyn -ID is following- Dr. Brown PRN -Urine culture from 07/28/2018 growing Koki. Repeat cultures sent 08/02/2018 after replacing Moerno 08/10 vancomycin, cefepime times 8 days total per infectious disease recommendation - discontinued 08/10. -Currently on daptomycin and aztreonam per infectious disease since 08/13 Repeat blood cultures, UA 08/10 no growth to date HEME Normocytic anemia -Monitor CBC, coags, Hep PLT is positive. ANNMARIE negative. Hematology is following. Off argatroban drip -s/p 2U PRBCs on 07/16, Hgb 8.8, used for hemoglobin less than 7 -Give 1 unit of PRBC and 1 pack units of platelets today in anticipation of tracheostomy -Stable thrombocytopenia-avoid medications that precipitate thrombocytopenia ENDO: -Sliding scale insulin medium scale aspart insulin every 4 hours. Continue insulin detemir 10 units twice daily TSH 1.26 PROPH: -Bilateral lower extremity SCDs. PPI -Doppler US LE negative DVT 07/02 -Continue enoxaparin 30 mg daily 12/11 for possible PEG tube placement LINES: -Utilize peripheral IVs Level 3 follow-up
--- NOTE | 2018-08-15 08:38 | XR ---
EXAM DATE: 08/15/2018 8:36 AM EST AGE/SEX: 73 years / Male INDICATIONS: Respiratory failure. CLINICAL DATA: This is the patient's subsequent encounter. Patient reports that signs and symptoms h ave been present for 2 weeks and indicates a pain score of Nonresponsive. MEDICAL/SURGICAL HISTORY: . Chronic obstructive pulmonary disease. Hypertension. Asthma. None. COMPARISON: C, CHEST 1V SINGLE AP, 08/14/2018. . FINDINGS: Tracheostomy tube and dialysis catheter in good position. Stable minimal bibasilar parenchymal change s worse lateral left than the right. Mild interstitial edema. Normal heart size CONCLUSION: Slight improvement with less interstitial changes. Electronically signed by: Jason Angulo MD Board Certified Radiologist 08/15/2018 8:37 AM EST
--- NOTE | 2018-08-15 08:44 | XR ---
EXAM DATE: 08/15/2018 8:38 AM EST AGE/SEX: 73 years / Male INDICATIONS: Ileus. CLINICAL DATA: This is the patient's subsequent encounter. Patient reports that signs and symptoms h ave been present for 3 weeks and indicates a pain score of Nonresponsive. MEDICAL/SURGICAL HISTORY: . Chronic obstructive pulmonary disease. Hypertension. Asthma. None. COMPARISON: C, ABDOMEN 1V KUB, 08/11/2018. . FINDINGS: Gastrostomy tube is noted. Nonspecific bowel gas pattern with minimal gas-filled loops of large and s mall bowel. Lung bases are clear. CONCLUSION: Gastrostomy tube, nonspecific bowel gas pattern without dilatation. Electronically signed by: Jason Angulo MD Board Certified Radiologist 08/15/2018 8:43 AM EST
--- NOTE | 2018-08-15 08:49 | P.PNPL ---
Subjective Interval history: 73 YOAA male with COPD, 02 dependent Follows at [facility] Admitted with AMS, COPD exac. On CPAP Awake, follows commands Tolerates TF Physical Exam Vital signs: Vital Signs 08/14/18 10:00 08/14/18 11:49 08/14/18 12:00 Temperature 98.8 F Pulse Rate 91 H 93 H 91 H Respiratory Rate 20 20 Blood Pressure 161/77 H Pulse Oximetry 100 100 08/14/18 14:00 08/14/18 16:00 08/14/18 16:23 Temperature 98.4 F Pulse Rate 96 H 98 H 93 H Respiratory Rate 21 20 Blood Pressure 157/77 H Pulse Oximetry 100 100 08/14/18 18:00 08/14/18 19:25 08/14/18 19:27 Temperature Pulse Rate 85 92 H Respiratory Rate 21 20 Blood Pressure Pulse Oximetry 100 08/14/18 20:00 08/14/18 22:00 08/14/18 23:06 Temperature 99.6 F Pulse Rate 94 H 106 H 101 H Respiratory Rate 20 20 Blood Pressure 129/77 Pulse Oximetry 100 08/15/18 00:00 08/15/18 00:13 08/15/18 02:00 Temperature 98.8 F Pulse Rate 104 H 103 H Respiratory Rate 20 20 Blood Pressure 129/65 Pulse Oximetry 99 100 08/15/18 03:23 08/15/18 03:24 08/15/18 04:00 Temperature 98.8 F Pulse Rate 109 H 100 H Respiratory Rate 21 21 20 Blood Pressure 154/78 H Pulse Oximetry 100 99 08/15/18 06:00 08/15/18 07:00 08/15/18 07:53 Temperature Pulse Rate 104 H 101 H Respiratory Rate 23 20 Blood Pressure Pulse Oximetry 100 Intake & Output 08/14/18 08/15/18 08/15/18 18:59 06:59 18:59 Intake Total 670 / 670 1600 / 1600 Output Total 800 / 800 450 / 450 Balance -130 / -130 1150 / 1150 Weight 90 kg Intake: IV 670 / 670 100 / 100 Bumex Inj 25 mg In 100 ml @ 1 100 / 100 MG/HR 4 mls/hr IV.CONT .Q24H [facility] Rx#:[id number] Azactam Inj 1,000 MG In NS Inj 300 / 300 100 / 100 100 ML @ 200 mls/hr IV.SIG Q6H [facility] Rx#:[id number] Glycophos Inj 15 MMOL In NS Inj 165 / 165 150 ML @ 40 mls/hr IV.SIG ONCE ONE Rx#:[id number] Keppra Inj 500 MG In NS Inj 100 105 / 105 ML @ 400 mls/hr IV.SIG Q12H [facility] Rx#:[id number] Tube Feeding 1100 / 1100 Water Bolus Amount 400 / 400 Output: Urine Amount (Catheter) 800 / 800 450 / 450 Indwelling Urethral Catheter 800 / 800 450 / 450 Other: Date of Last Bowel Movement 08/14/18 08/15/18 # Bowel Movements 3 1 GENERAL: Obese AA male, on vent SKIN: Warm and dry. HEAD: Normocephalic. EYES: No scleral icterus. No injection or drainage. NECK: Supple, trachea midline. No JVD or lymphadenopathy. has Trach CARDIOVASCULAR: Regular rate and rhythm without murmurs, gallops, or rubs. RESPIRATORY: Breath sounds equal bilaterally. No accessory muscle use. GASTROINTESTINAL: Abdomen soft, non-tender, nondistended. PEG in place MUSCULOSKELETAL: No cyanosis, or edema. BACK: Nontender without obvious deformity. No CVA tenderness. - Urinary Catheter Management Indwelling Urethral Catheter Cath placed during this visit: yes, but has since been removed by the nurse Reason for continuing: Acute urinary retention Insertion date: 07/14/18 Insertion time: 21:55 Removal date: 08/02/18 Removal time: 07:59 Straight Cath placed during this visit: yes Reason for continuing: Acute urinary retention Insertion date: 08/11/18 Insertion time: 10:48 Condom Cath placed during this visit: no Indwelling Temp Sensing Catheter Cath placed during this visit: yes, but has since been removed by the nurse Reason for continuing: Decision to DC catheter Insertion date: 08/02/18 Insertion time: 08:00 Removal date: 08/09/18 Removal time: 18:30 Assessment and Plan - Plan IMPRESSION: Hypercapnoic RF, COPD exac AMS improved 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 Abdominal distension, s/p decompression. Ileus Seizure. Renal failure PLAN: Cont CPAP Trach care Aerosol nebs Supplement 02 Monitor H/H Cont Keppra Tube feeding DC plans underway for [facility].
[2018-08-15] MEDS: Docusate Sodium Liq 100 MG/10 ML UDC NG/OG SCH (09:00)
[2018-08-15] MEDS ORDERED: Sodium Glycerophosphate Inj 15 MMOL in Sodium Chlor 0.9% Inj 150 ML IV.SIG ONE (09:00)
[2018-08-15] MEDS: Bisacodyl 10 MG Supp RECTAL SCH (09:03)
[2018-08-15] MEDS: Multivitamin/Minerals Therapeutic Tablet PO SCH (09:03)
[2018-08-15] MEDS: Metoprolol Tartrate 25 MG Tablet PO SCH ×3 (09:03→17:37)
[2018-08-15] MEDS: Ascorbic Acid 500 MG Tablet PO SCH (09:03)
[2018-08-15] MEDS: Enoxaparin Inj 30 MG/0.3 ML Syringe SQ SCH (09:04)
[2018-08-15] MEDS: Insulin Detemir Inj 1,000 UNIT/10 ML Vial SQ SCH (09:04)
[2018-08-15] MEDS: Polyethylene Glycol 3350 17 GM Packet PO SCH (09:04)
[2018-08-15] MEDS: Calcium/Vitamin D 250/125 MG Tablet PO SCH (09:04)
[2018-08-15] MEDS: Sennosides Liq 8.8 MG/5 ML UDC NG/OG SCH (09:19)
--- NOTE | 2018-08-15 13:42 | P.DS ---
Date of admission: 06/22/18 14:04 Primary care physician: Physician [facility] Attending physician on discharge: UNKNOWN Anticipated date of discharge: 08/15/08 Brief History from admission: Mr. Curry is a 73-year-old -L[place]ian male with past medical history significant for COPD on 3 L nasal cannula, hypertension, hyperlipidemia and anxiety who was admitted to the hospitalist service on 06/19/2018 for worsening shortness of breath due to COPD exacerbation. He was treated with IV Solu- Medrol, IV antibiotics, breathing treatments gradually improved. Patient was also complaining about dyspepsia and underwent EGD by GI yesterday. Per report the EGD was normal but patient developed worsening shortness of breath and COPD exacerbation postprocedure, possibly from aspiration after sedated. Two ABGs done yesterday showed hypercapnic respiratory failure second 1 was on BiPAP and this was improved with pH 7.3 with PCO2 of 74. Patient remained on BiPAP overnight however was noticed to be lethargic today a.m., stat ABG showed pH of 7.21 PCO2 110 PO2 88 while on BiPAP. Patient was lethargic intermittently dozing off due to CO2 narcosis. Critical care medicine was consulted and I immediately evaluated the patient. Patient had obviously failed BiPAP I proceeded with endotracheal intubation placed on mechanical ventilation. Postintubation I have ordered single dose of Solu-Medrol 125 mg x1 continue Solu -Medrol 60 every 8, discontinue ceftriaxone and start cefepime 2 g IV every 8 hours continue azithromycin. Add budesonide inhaled, placed on scheduled DuoNeb every 4 hours and as needed. Patient update on day of discharge: 06/27: Patient was intubated yesterday for severe hypercapnic respiratory failure. Currently remains intubated sedated and intubated remains diminished bilaterally. Heavily sedated for ventilator synchrony 06/28: Urine output significantly improved with fluid resuscitation. Creat down trending now 2 from 2.3, UO >3.3 L. Remains intubated sedated. Will initiate daily sedation vacation and CPAP trials 06/29: More awake today tolerating CPAP trials intermittently follows commands but gets agitated/frustrated fast. Urine output remains excellent creatinine 1.4. However sodium increasing 158 today. Night railcar switcher had changed fluid to D5 W for free water replacement. Due to hypoglycemia will change to quarter normal saline at 150 mL/h repeat CMP in the afternoon 06/30 Patient was extubated yesterday. Awake 07/01 Patient is lying in bed in NAD. T: 100.5 07/02: Intubated early this morning due to acute hypoxic respiratory failure. Central line placed due to hypotension. Plan for GI perform endoscopic decompression of this large bowel today. Arousable and does follow commands. Placed on argatroban 07/03: Currently, intubated with borderline blood pressure. Central line placed yesterday due to hypotension. Did not move bowels despite 1 L of fluid from colonoscopy yesterday and multiple laxatives provided. See orders for additional laxatives today. Might need neostigmine. 07/04 Patient remains intubated and sedated with Diprivan. Given Neostigmine last night. KUB this morning showed colonic ileus. Afebrile. On Argatroban. 07/05 No events overnight, sedated with Diprivan and intubated. Off Argatroban. 07/06 Patient remains intubated and sedated. Afebrile. 07/07 Patient remains intubated, s/p decompressive colonoscopy yesterday. Awake. 07/08 Patient s/p extubation yesterday. Awake and alert. 07/09 Patient is awake, alert lying in bed in NAD. Afebrile. 07/10 Patient is awake and alert, Afebrile. 07/11 Patient s/p decompressive colonoscopy yesterday. Afebrile. On Lasix drip.( UOP: 2800ml overnight). Cr: 3.0 from 2.25. 07/12 Patient is awake, alert given Neostigmine overnight. NGT to ALYSSA, off Lasix drip. 07/13: Resting comfortably in bed in no acute distress. 3 bowel movements documented. Remains n.p.o. Bladder pressures around 6. Potassium being replaced. Remains anemic around 7. 07/14 Patient is lying in bed in NAD. Afebrile. 07/15 No events overnight. Afebrile. 07/16: Resting in bed mild distress. Abdomen remains distended. Hemoglobin has dropped to 6.2 2 units of PRBC ordered. Patient underwent decompressive colonoscopy by Dr. Berrios for colonic ileus 07/17: No significant overnight events, patient states that he wants to get out of bed to a chair as he is having rectal discomfort. 07/18: Patient reportedly had a BM after digital rectal exam yesterday, states that he's been passing flatus "every now and then" overnight. No plans for OR or sigmoidoscopy as per colorectal service, OK to transfer out of [facility]. 07/19: Patient transferred to [facility] yesterday, complained of shortness of breath again today. An ABG showed a pCO2 of 79 so he was placed on bipap and transferred to [facility]. Most recent ABG shows pCO2 of 66, KUB still has abdominal distension but appears to be improved when compared to KUB from 07/15. Patient has reportedly been having bowel movements and passing flatus overnight. 07/20: No dramatic improvement in abdominal distention however abdomen soft. The patient was able to breathe comfortably overnight and remained alert. This morning the BiPAP mask was removed for half an hour and the patient did well without evidence of CO2 retention or somnolence. Reconsult note 07/23: The patient was a halicat from the [facility] floor. Patient was noted to be somnolent, had difficulty breathing. Stat ABG was performed revealing a PCO2 of 113. The patient was placed on BiPAP and transferred to [facility]. Currently remains on CPAP respiratory rate is 25 , 16/5 with an FiO2 35%. 07/24: Overnight the patient was placed on BiPAP 10/5 refusing BiPAP pulling out IVs. The patient became tachycardic refusing p.o. medications. The patient was placed on a Cardizem infusion currently at 5 mg an hour. Patient is more compliant at this time the patient's BiPAP settings were increased to 15 /5 35% stat ABGs were ordered the patient was noted to have a PCO2 of 89, continues with hypercapnic respiratory failure in the setting of severe COPD. Extensive discussion with family at bedside the patient's sister and daughter provided medical status update on recent transfer to ICU and current standing. Inform family that patient is at risk for for emergent intubation. Repeat ABG pending this evening. 07/25: Patient noted to have episodes of agitation continually removing BiPAP. I discussed with patient the criticality of his illness and possible intubation patient now agrees to wear BiPAP with exception of meals. Patient's diet was advanced to clear liquid noted improvement of chest x-ray patient is noted to have last bowel movement approximately 2 days ago we will continue to monitor and follow-up GI recommendations . Noted electrolyte repletion at this time. PCO2 now in the 60s. 07/26: Patient continues to be noncompliant with BiPAP mask. ABGs obtained noting a PO2 of 45.6. The patient was emergently intubated this afternoon. Chest x-ray and repeat ABG pending at this time. Noted patient's last bowel movement last night. 07/27: Afebrile. Remains on ventilator. Will start tube feeding today. BM noted overnight. Replacing potassium phosphate, calcium chloride x1 now. And magnesium sulfate 07/28: Afebrile. Did not tolerate CPAP trial the same. Tolerating tube feeds today. Last bowel movement yesterday 09/26. Mild ileus on abdominal x-ray today. 07/29: Afebrile. Tolerated CPAP times 3 hours. He is intolerant to P. 2 bowel movements. Abdominal x-ray unchanged but no signs of obstructive or ileus. 07/30: Afebrile. Currently on CPAP trials. Positive BM. No change in neurological status. Increasing metoprolol to 5 mg IV every 6 hours. 07/31: Again on CPAP trials. Awake and alert on dexmedetomidine drip. Will put on metoprolol tartrate 25 mg every 8 hours and titrate. Positive BM. Recheck KUB in a.m. 08/01. 08/01: Currently tolerating CPAP, but requiring 15 pressure support. Patient had been intubated 3 times this admission, according to the caregiver and go from had to do patient's a total of several intubation in the last 2-3 months. I discussed with the patient was agreeable for tracheostomy, I also discussed with Stephanie patient's daughter and she has given consent for tracheostomy. Plan for tracheostomy tomorrow 08/02: Patient currently on Precedex awake alert not tolerating CPAP trials. Plan for tracheostomy today. Transfuse 1 unit PRBC 1 pack units of platelets prior to trach 08/03: Patient remains calm on the vent currently tolerating pressure support 06/06. Status post tracheostomy yesterday no significant bleeding. Platelet count 103 today. 08/04: Patient placed on CPAP trials this a.m. and continues without difficulty. Precedex infusion currently at 1.5 mcgs/kg/hour. Tentative plan for PEG tube placement procedure on hold awaiting discussion with family, POA. Patient continues to have large bowel movements. 08/05: Continued copious large bowel movement. Fecal containment device / Dignashield applied. Placement of PEG tube continues to be on hold ,due to the inability to contact the POA. 08/06: Palliative care steam plant control room operator Toya had extensive meeting with the patient's POA tentative plan for placement of PEG tube. 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 Brown infectious disease. Patient continues to be agitated and requires Precedex infusion currently at 1.5, plan to initiate Seroquel this evening and attempts to decrease agitation, and subsequently discontinue Precedex infusion. The patient has been initiated on trach collar trials and continues greater than 6 hours. 08/07: No acute events overnight. GI consult for PEG placement. Tolerating tube feeds. 08/08: The patient tolerated T-piece for approximately 10 hours. Patient placed back on CPAP this evening. Agitation resolved with ministration of Seroquel. Patient responding to questions nodding head yes and no. 08/09: Currently on vent support, tolerates CPAP. Attempt T-piece daily, check chest x-ray today repeat labs in a.m. 08/10: T-max 100. Remains tachycardic. More lethargic today. Leaking around tracheostomy site. Increasing rate and tidal volume. 08/11: Currently afebrile. Remains tachycardic. Remains lethargic withdraws but not following commands. Negative CT and MRI of brain. EEG pending. Worsening renal failure noted. Decreased urine output. Having copious bowel movements. 08/12: Received 4 mg lorazepam yesterday due to possible seizure activity. Did not appear to be akathisia movements versus tardive dyskinesia. Currently on levetiracetam 5 mg twice daily. Will adjust for renal respiratory neurology consultation patient. EEG results pending. Negative MRI brain 08/10. Plan for PEG tube placement today likely hemodialysis 08/13: Status post PEG tube yesterday. Will likely start tube feeds today. Hemodialysis -2 L plan. More arousable today. 08/14: Patient is currently arousable and afebrile. Attempted to transfer to [facility]. Tolerating tube feeding. Positive BM. Phosphorus being replaced today. 08/15: Patient is currently arousable and complaining of low back pain. Will reposition in bed. Fecal containment device is out. [facility] will talk to family about transfer. Phosphorus being replaced along with 2 units PRBCs. No signs of active bleeding. DS: Diagnosis - Discharge Diagnosis (1) Acute exacerbation of chronic obstructive pulmonary disease (COPD) Status: Acute Diagnosis: Principal (2) Acute renal failure Status: Acute Diagnosis: Principal (3) Staphylococcus epidermidis bacteremia Status: Acute Diagnosis: Secondary (4) Abdominal distention Status: Acute Diagnosis: Secondary (5) Ileus Status: Acute Diagnosis: Principal (6) Paralytic ileus of large intestine Status: Acute Diagnosis: Principal (7) Acute kidney injury Status: Acute Diagnosis: Principal (8) Hypercapnic respiratory failure Status: Acute Diagnosis: Principal DS: Medications - Discharge Medications Prescriptions: prednisone 10 mg PO PER PKG DIR #[id number] each DS: Summary Hospital Course: Mr. Curry is a 73-year-old -L[place]uanian male with past medical history significant for COPD on 3 L nasal cannula, hypertension, hyperlipidemia and anxiety who was admitted to the hospitalist service on 06/19/2018 for worsening shortness of breath due to COPD exacerbation. He was treated with IV Solu- Medrol, IV antibiotics, breathing treatments gradually improved. Patient was also complaining about dyspepsia and underwent EGD by GI yesterday. Per report the EGD was normal but patient developed worsening shortness of breath and COPD exacerbation postprocedure, possibly from aspiration after sedated. Two ABGs done yesterday showed hypercapnic respiratory failure second 1 was on BiPAP and this was improved with pH 7.3 with PCO2 of 74. Patient remained on BiPAP overnight however was noticed to be lethargic today a.m., stat ABG showed pH of 7.21 PCO2 110 PO2 88 while on BiPAP. Patient was lethargic intermittently dozing off due to CO2 narcosis. Critical care medicine was consulted and I immediately evaluated the patient. Patient had obviously failed BiPAP I proceeded with endotracheal intubation placed on mechanical ventilation. Postintubation I have ordered single dose of Solu-Medrol 125 mg x1 continue Solu -Medrol 60 every 8, discontinue ceftriaxone and start cefepime 2 g IV every 8 hours continue azithromycin. Add budesonide inhaled, placed on scheduled DuoNeb every 4 hours and as needed. 06/27: Patient was intubated yesterday for severe hypercapnic respiratory failure. Currently remains intubated sedated and intubated remains diminished bilaterally. Heavily sedated for ventilator synchrony 06/28: Urine output significantly improved with fluid resuscitation. Creat down trending now 2 from 2.3, UO >3.3 L. Remains intubated sedated. Will initiate daily sedation vacation and CPAP trials 06/29: More awake today tolerating CPAP trials intermittently follows commands but gets agitated/frustrated fast. Urine output remains excellent creatinine 1.4. However sodium increasing 158 today. Night railcar switcher had changed fluid to D5 W for free water replacement. Due to hypoglycemia will change to quarter normal saline at 150 mL/h repeat CMP in the afternoon 06/30 Patient was extubated yesterday. Awake 07/01 Patient is lying in bed in NAD. T: 100.5 07/02: Intubated early this morning due to acute hypoxic respiratory failure. Central line placed due to hypotension. Plan for GI perform endoscopic decompression of this large bowel today. Arousable and does follow commands. Placed on argatroban 07/03: Currently, intubated with borderline blood pressure. Central line placed yesterday due to hypotension. Did not move bowels despite 1 L of fluid from colonoscopy yesterday and multiple laxatives provided. See orders for additional laxatives today. Might need neostigmine. 07/04 Patient remains intubated and sedated with Diprivan. Given Neostigmine last night. KUB this morning showed colonic ileus. Afebrile. On Argatroban. 07/05 No events overnight, sedated with Diprivan and intubated. Off Argatroban. 07/06 Patient remains intubated and sedated. Afebrile. 07/07 Patient remains intubated, s/p decompressive colonoscopy yesterday. Awake. 07/08 Patient s/p extubation yesterday. Awake and alert. 07/09 Patient is awake, alert lying in bed in NAD. Afebrile. 07/10 Patient is awake and alert, Afebrile. 07/11 Patient s/p decompressive colonoscopy yesterday. Afebrile. On Lasix drip.( UOP: 2800ml overnight). Cr: 3.0 from 2.25. 07/12 Patient is awake, alert given Neostigmine overnight. NGT to LIWS, off Lasix drip. 07/13: Resting comfortably in bed in no acute distress. 3 bowel movements documented. Remains n.p.o. Bladder pressures around 6. Potassium being replaced. Remains anemic around 7. 07/14 Patient is lying in bed in NAD. Afebrile. 07/15 No events overnight. Afebrile. 07/16: Resting in bed mild distress. Abdomen remains distended. Hemoglobin has dropped to 6.2 2 units of PRBC ordered. Patient underwent decompressive colonoscopy by Dr. Berrios for colonic ileus 07/17: No significant overnight events, patient states that he wants to get out of bed to a chair as he is having rectal discomfort. 07/18: Patient reportedly had a BM after digital rectal exam yesterday, states that he's been passing flatus "every now and then" overnight. No plans for OR or sigmoidoscopy as per colorectal service, OK to transfer out of [facility]. 07/19: Patient transferred to med surg yesterday, complained of shortness of breath again today. An ABG showed a pCO2 of 79 so he was placed on bipap and transferred to [facility]. Most recent ABG shows pCO2 of 66, KUB still has abdominal distension but appears to be improved when compared to KUB from 07/15. Patient has reportedly been having bowel movements and passing flatus overnight. 07/20: No dramatic improvement in abdominal distention however abdomen soft. The patient was able to breathe comfortably overnight and remained alert. This morning the BiPAP mask was removed for half an hour and the patient did well without evidence of CO2 retention or somnolence. Reconsult note 07/23: The patient was a halicat from the [facility] floor. Patient was noted to be somnolent, had difficulty breathing. Stat ABG was performed revealing a PCO2 of 113. The patient was placed on BiPAP and transferred to [facility]. Currently remains on CPAP respiratory rate is 25 , 16/5 with an FiO2 35%. 07/24: Overnight the patient was placed on BiPAP 10/5 refusing BiPAP pulling out IVs. The patient became tachycardic refusing p.o. medications. The patient was placed on a Cardizem infusion currently at 5 mg an hour. Patient is more compliant at this time the patient's BiPAP settings were increased to 15 /5 35% stat ABGs were ordered the patient was noted to have a PCO2 of 89, continues with hypercapnic respiratory failure in the setting of severe COPD. Extensive discussion with family at bedside the patient's sister and daughter provided medical status update on recent transfer to ICU and current standing. Inform family that patient is at risk for for emergent intubation. Repeat ABG pending this evening. 07/25: Patient noted to have episodes of agitation continually removing BiPAP. I discussed with patient the criticality of his illness and possible intubation patient now agrees to wear BiPAP with exception of meals. Patient's diet was advanced to clear liquid noted improvement of chest x-ray patient is noted to have last bowel movement approximately 2 days ago we will continue to monitor and follow-up GI recommendations . Noted electrolyte repletion at this time. PCO2 now in the 60s. 07/26: Patient continues to be noncompliant with BiPAP mask. ABGs obtained noting a PO2 of 45.6. The patient was emergently intubated this afternoon. Chest x-ray and repeat ABG pending at this time. Noted patient's last bowel movement last night. 07/27: Afebrile. Remains on ventilator. Will start tube feeding today. BM noted overnight. Replacing potassium phosphate, calcium chloride x1 now. And magnesium sulfate 07/28: Afebrile. Did not tolerate CPAP trial the same. Tolerating tube feeds today. Last bowel movement yesterday 09/26. Mild ileus on abdominal x-ray today. 07/29: Afebrile. Tolerated CPAP times 3 hours. He is intolerant to P. 2 bowel movements. Abdominal x-ray unchanged but no signs of obstructive or ileus. 07/30: Afebrile. Currently on CPAP trials. Positive BM. No change in neurological status. Increasing metoprolol to 5 mg IV every 6 hours. 07/31: Again on CPAP trials. Awake and alert on dexmedetomidine drip. Will put on metoprolol tartrate 25 mg every 8 hours and titrate. Positive BM. Recheck KUB in a.m. 08/01. 08/01: Currently tolerating CPAP, but requiring 15 pressure support. Patient had been intubated 3 times this admission, according to the caregiver and go from had to do patient's a total of several intubation in the last 2-3 months. I discussed with the patient was agreeable for tracheostomy, I also discussed with Stephanie patient's daughter and she has given consent for tracheostomy. Plan for tracheostomy tomorrow 08/02: Patient currently on Precedex awake alert not tolerating CPAP trials. Plan for tracheostomy today. Transfuse 1 unit PRBC 1 pack units of platelets prior to trach 08/03: Patient remains calm on the vent currently tolerating pressure support 06/06. Status post tracheostomy yesterday no significant bleeding. Platelet count 103 today. 08/04: Patient placed on CPAP trials this a.m. and continues without difficulty. Precedex infusion currently at 1.5 mcgs/kg/hour. Tentative plan for PEG tube placement procedure on hold awaiting discussion with family, POA. Patient continues to have large bowel movements. 08/05: Continued copious large bowel movement. Fecal containment device / Dignashield applied. Placement of PEG tube continues to be on hold ,due to the inability to contact the POA. 08/06: Palliative care steam plant control room operator Ms. Pittman had extensive meeting with the patient's POA tentative plan for placement of PEG tube. 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 Brown infectious disease. Patient continues to be agitated and requires Precedex infusion currently at 1.5, plan to initiate Seroquel this evening and attempts to decrease agitation, and subsequently discontinue Precedex infusion. The patient has been initiated on trach collar trials and continues greater than 6 hours. 08/07: No acute events overnight. GI consult for PEG placement. Tolerating tube feeds. 08/08: The patient tolerated T-piece for approximately 10 hours. Patient placed back on CPAP this evening. Agitation resolved with ministration of Seroquel. Patient responding to questions nodding head yes and no. 08/09: Currently on vent support, tolerates CPAP. Attempt T-piece daily, check chest x-ray today repeat labs in a.m. 08/10: T-max 100. Remains tachycardic. More lethargic today. Leaking around tracheostomy site. Increasing rate and tidal volume. 08/11: Currently afebrile. Remains tachycardic. Remains lethargic withdraws but not following commands. Negative CT and MRI of brain. EEG pending. Worsening renal failure noted. Decreased urine output. Having copious bowel movements. 08/12: Received 4 mg lorazepam yesterday due to possible seizure activity. Did not appear to be akathisia movements versus tardive dyskinesia. Currently on levetiracetam 5 mg twice daily. Will adjust for renal respiratory neurology consultation patient. EEG results pending. Negative MRI brain 08/10. Plan for PEG tube placement today likely hemodialysis 08/13: Status post PEG tube yesterday. Will likely start tube feeds today. Hemodialysis -2 L plan. More arousable today. 08/14: Patient is currently arousable and afebrile. Attempted to transfer to [facility]. Tolerating tube feeding. Positive BM. Phosphorus being replaced today. Subjective 08/15: Patient is currently arousable and complaining of low back pain. Will reposition in bed. Fecal containment device is out. [facility] will talk to family about transfer. Phosphorus being replaced along with 2 units PRBCs. No signs of active bleeding. - Time Spent with Patient Total time spent providing and/or coordinating discharge services: Greater than 30 minutes - Quality: VTE Deep Vein Thrombosis/Pulmonary Embolism Present on Admission: No Exam Vital signs: Vital Signs 08/14/18 14:00 08/14/18 15:00 08/14/18 16:00 Temperature 98.4 F Pulse Rate 96 H 98 H 91 H Respiratory Rate 20 20 20 Blood Pressure 155/72 H 142/76 H 143/80 H Pulse Oximetry 100 100 100 08/14/18 16:23 08/14/18 17:00 08/14/18 18:00 Temperature Pulse Rate 93 H 96 H 98 H Respiratory Rate 20 22 21 Blood Pressure 152/73 H 157/77 H Pulse Oximetry 100 100 100 08/14/18 19:00 08/14/18 19:25 08/14/18 19:27 Temperature Pulse Rate 90 92 H Respiratory Rate 23 21 20 Blood Pressure 134/86 Pulse Oximetry 97 100 08/14/18 20:00 08/14/18 21:00 08/14/18 21:01 Temperature 99.6 F Pulse Rate 94 H 101 H 102 H Respiratory Rate 20 20 20 Blood Pressure 129/77 167/66 H Pulse Oximetry 100 98 100 08/14/18 22:00 08/14/18 22:04 08/14/18 23:00 Temperature Pulse Rate 106 H 110 H 97 H Respiratory Rate 21 24 20 Blood Pressure 132/68 Pulse Oximetry 98 98 99 08/14/18 23:03 08/14/18 23:06 08/15/18 00:00 Temperature 98.8 F Pulse Rate 97 H 101 H 104 H Respiratory Rate 20 20 20 Blood Pressure 127/69 129/65 Pulse Oximetry 99 99 08/15/18 00:13 08/15/18 01:00 08/15/18 02:00 Temperature Pulse Rate 101 H 108 H Respiratory Rate 20 21 20 Blood Pressure 135/82 135/64 Pulse Oximetry 100 98 100 08/15/18 03:00 08/15/18 03:01 08/15/18 03:23 Temperature Pulse Rate 103 H 105 H Respiratory Rate 20 20 21 Blood Pressure 140/62 Pulse Oximetry 98 100 100 08/15/18 03:24 08/15/18 04:00 08/15/18 05:00 Temperature 98.8 F Pulse Rate 109 H 94 H 115 H Respiratory Rate 21 20 27 H Blood Pressure 135/65 132/72 Pulse Oximetry 99 100 08/15/18 06:00 08/15/18 07:00 08/15/18 07:53 Temperature Pulse Rate 109 H 105 H Respiratory Rate 22 24 20 Blood Pressure 154/78 H 136/70 Pulse Oximetry 97 100 100 08/15/18 08:00 08/15/18 10:00 08/15/18 11:00 Temperature Pulse Rate 106 H 93 H 96 H Respiratory Rate 17 16 Blood Pressure 138/74 Pulse Oximetry 97 08/15/18 11:14 08/15/18 11:46 08/15/18 12:00 Temperature 98.7 F 98.3 F Pulse Rate 93 H 92 H Respiratory Rate 15 12 14 Blood Pressure 139/66 137/69 Pulse Oximetry 100 100 100 Intake & Output 08/14/18 08/15/18 08/15/18 18:59 06:59 18:59 Intake Total 670 / 670 1700 / 1700 0 / 0 Output Total 800 / 800 450 / 450 Balance -130 / -130 1250 / 1250 0 / 0 Weight 90 kg Intake: IV 670 / 670 200 / 200 Bumex Inj 25 mg In 100 ml @ 1 100 / 100 MG/HR 4 mls/hr IV.CONT .Q24H [facility] Rx#:[id number] Azactam Inj 1,000 MG In NS Inj 300 / 300 200 / 200 100 ML @ 200 mls/hr IV.SIG Q6H [facility] Rx#:[id number] Glycophos Inj 15 MMOL In NS Inj 165 / 165 150 ML @ 40 mls/hr IV.SIG ONCE ONE Rx#:[id number] Keppra Inj 500 MG In NS Inj 100 105 / 105 ML @ 400 mls/hr IV.SIG Q12H [facility] Rx#:[id number] Tube Feeding 1100 / 1100 Water Bolus Amount 400 / 400 Intake (Blood Product) Amt 0 / 0 Rbc As-3 Leukoreduced Unit 0 / 0 [id number] Output: Urine Amount (Catheter) 800 / 800 450 / 450 Indwelling Urethral Catheter 800 / 800 450 / 450 Other: Date of Last Bowel Movement 08/14/18 08/15/18 08/15/18 # Bowel Movements 3 1 Narrative: GENERAL: 73-year-old chronically ill appearing elderly -L[place]ian male lying in bed, awake , calm currently on PRVC SKIN: Warm and dry. No rash HEAD: Normocephalic. EYES: PERRL NECK: Supple, trachea midline. New tracheostomy with minimal dry blood around the site right IJ hemodialysis catheter is clean dry and intact CARDIOVASCULAR: RRR. S1, S2. No S4. No murmur RESPIRATORY: Diminished breath sounds in bases noted right greater than left. B/ L equal air entry, patient. GASTROINTESTINAL: Abdomen continues/remains distended, grimaces when deep palpation, no guarding, hypoactive bowel sounds present. PEG tube site is clean dry and intact MUSCULOSKELETAL: He is to one-point bilateral upper/ lower extremity edema, warm and well-perfused NEURO: Arousable with open eyes. Will look at you to voice. Grimaces with pain. Withdraws to pain all 4 extremities. Nods head to questions Results Procedures completed during hospitalization: 06/26/18endotracheal intubation by critical care Dr. Ahn 06/26/18ultrasound-guided right IJ central line by critical care Dr. Ahn 07/02/18endotracheal intubation by critical care Dr. Ahn 07/06/18colonoscopy by : Stool in cecum, large amount of water flush, stool suctioned. Marked decompression. Rectal tube left in place. Internal hemorrhoids. 07/10/18colonoscopy by Dr. Keith: Ischemic ulcer cecum. Some semisolid stool suctioned. Marked decompression. Rectal ulcer from rectal tube. Hemorrhoids internal grade 2. 07/15/18decompressive colonoscopy by Dr. Berrios Completed studies during hospitalization: Chest X-Ray 06/19/18 20:38 CONCLUSION: No evidence of acute cardiopulmonary disease. Abdomen Ultrasound 06/21/18 00:00 CONCLUSION: 1. No ascites is identified within the abdomen. Abdomen X-Ray 06/21/18 00:00 CONCLUSION: No acute findings. Mild constipation. Chest X-Ray 06/23/18 00:00 CONCLUSION: 1. No acute abnormality or significant interval change. Abdomen/Pelvis CT 06/24/18 00:00 CONCLUSION: 1. Benign appearing right adrenal mass. 2. No acute CT findings in the abdomen or pelvis. Chest X-Ray 06/25/18 00:00 CONCLUSION: Suspected mild atelectasis or consolidation at the medial right base. Chest X-Ray 06/26/18 00:00 CONCLUSION: 1. Endotracheal tube is appropriately positioned above the christy. 2. Nasogastric tube traverses the GE junction and is curled in the gastric lumen. 3. Lungs are clear. Abdomen X-Ray 06/26/18 09:21 CONCLUSION: 1. Nonobstructive bowel gas pattern without pneumoperitoneum. 2. Nasogastric tube is curled in the expected location of the gastric body. I believe the portions of the tube identified over the heart shadow is probably projectional as there is no evidence of a significant hiatal hernia on the most recent CT of the abdomen. Chest X-Ray 06/26/18 15:37 CONCLUSION: 1. Lungs remain clear. 2. Interval placement of a right IJ central venous catheter with the tip projecting over the central venous system. No pneumothorax. 3. Endotracheal and nasogastric tubes remain appropriately positioned. Abdomen/Bladder Ultrasound 06/28/18 00:00 CONCLUSION: 1. Echogenic kidneys characteristic of medical renal disease. No hydronephrosis. Bladder decompressed by Moreno Chest X-Ray 06/28/18 06:00 CONCLUSION: The lungs are clear. Lines and tubes stable. Chest X-Ray 06/29/18 06:00 CONCLUSION: The lungs are clear. Lines and tubes stable. Venous Doppler Study 07/01/18 00:00 CONCLUSION: 1. The study is negative for bilateral lower extremity deep venous thrombosis. Chest X-Ray 07/01/18 20:41 CONCLUSION: Negative examination. Chest CTA 07/02/18 00:00 CONCLUSION: 1. No pulmonary embolus. 2. Diffuse but basilar predominant bilateral airspace disease. 3. Endotracheal and endobronchial secretions are demonstrated. 4. Moderate emphysema. 5. Left ventricular hypertrophy. Venous Doppler Study 07/02/18 00:00 CONCLUSION: 1. Limited, no evidence for thrombosis. Chest X-Ray 07/02/18 04:04 CONCLUSION: 1. Interim intubation and nasogastric tube placement as above. 2. Mild bibasilar atelectasis has developed. Abdomen/Pelvis CT 07/02/18 04:20 CONCLUSION: Colonic distention most likely representing moderate adynamic ileus. However, distal sigmoid colon is decompressed and a sigmoid stricture is conceivable but considered less likely. Apparent mild proctitis. Clinical surveillance and follow-up CT recommended. Chest X-Ray 07/02/18 14:46 CONCLUSION: Left IJ line in good position. There is no pneumothorax. Abdomen X-Ray 07/04/18 00:01 CONCLUSION: Findings of colonic ileus Chest X-Ray 07/04/18 06:00 CONCLUSION: Cardiomegaly and findings of vascular congestion without overt failure. There has been no significant change when compared to the prior exam. Abdomen X-Ray 07/05/18 07:08 CONCLUSION: No significant interval change with persistent diffuse air-filled distention of the colon suggesting ileus. Chest X-Ray 07/07/18 07:12 CONCLUSION: Minimal bibasilar densities likely atelectasis. Abdomen X-Ray 07/07/18 07:13 CONCLUSION: Gaseous distention of multiple bowel loops has improved since previous study. Abdomen X-Ray 07/09/18 07:14 CONCLUSION: 1. Apparent interval removal of NGT. 2. Improving bowel gas pattern consistent with improving adynamic ileus. Abdomen/Pelvis CT 07/10/18 08:31 CONCLUSION: 1. There is gas and fluid distending the colon. The patient has a rectal tube in place however the rectal tube is kinked back on itself and occluded. The overall size of the colon has mildly increased when compared to previous exam. The small bowel is normal in caliber. 2. Interval development of a small left basilar effusion and atelectasis. Chest X-Ray 07/10/18 08:42 CONCLUSION: Mild patchy bilateral lung base opacity likely representing atelectasis unchanged. Small left pleural effusion now seen. Abdomen X-Ray 07/11/18 00:00 CONCLUSION: 1. Questionable NGT at the GE junction, as above. 2. Moderately improved colonic distention. Abdomen X-Ray 07/12/18 00:00 CONCLUSION: Probable generalized ileus. No abrupt caliber changes are seen. No free air. Nasogastric tube tip is in the upper stomach. No gastric distention seen. Abdomen X-Ray 07/14/18 06:00 CONCLUSION: Distended air-filled colon. Ileus is the most likely etiology for this pattern. Abdomen X-Ray 07/15/18 00:00 CONCLUSION: Persistent air-filled loops of small and large bowel suggesting probably ileus. Clinical correlation is recommended. Venous Doppler Study 07/15/18 00:00 CONCLUSION: 1. Limited suboptimal examination. 2. Nonocclusive thrombus in the jugular vein. Chest X-Ray 07/16/18 10:00 CONCLUSION: Mild bibasilar consolidations, presumably atelectasis is unchanged. Abdomen X-Ray 07/19/18 14:09 CONCLUSION: Negative examination. Chest X-Ray 07/19/18 14:10 CONCLUSION: 1. No acute cardiopulmonary disease. 2. Mild degenerative changes and scoliosis of the thoracic spine. Chest X-Ray 07/23/18 00:00 CONCLUSION: Negative examination. Chest X-Ray 07/24/18 00:00 CONCLUSION: Mild bibasilar consolidation. Chest X-Ray 07/25/18 04:00 CONCLUSION: Previous basilar opacity has resolved. No new infiltrate or effusion. Abdomen X-Ray 07/26/18 00:00 CONCLUSION: Orogastric tube tip is in the distal stomach or proximal duodenum. Chest X-Ray 07/26/18 17:00 CONCLUSION: 1. ETT in good position. 2. No acute abnormality. Chest X-Ray 07/27/18 04:00 CONCLUSION: Endotracheal tube and nasogastric tube in good position. Minimal dependent atelectasis in the lungs. Abdomen X-Ray 07/28/18 00:01 CONCLUSION: Mild ileus. No evidence for obstruction or free air. Chest X-Ray 07/28/18 06:00 CONCLUSION: Mild basilar atelectasis. No effusion or pneumothorax. Abdomen X-Ray 07/29/18 00:01 CONCLUSION: NG tip in duodenum. No acute findings. Chest X-Ray 07/29/18 06:00 CONCLUSION: Endotracheal tube and nasogastric tube unchanged. Stable to slight increase in basilar airspace disease since July 28. Chest X-Ray 07/30/18 06:00 CONCLUSION: Stable exam compared with July 22, 2017 with support apparatus in good position. Abdomen X-Ray 07/30/18 15:07 CONCLUSION: Benign-appearing KUB. Chest X-Ray 07/31/18 06:00 CONCLUSION: Increase in basilar airspace disease since July 30. Support apparatus unchanged. Chest X-Ray 08/01/18 06:00 CONCLUSION: Mild improvement in the bibasilar airspace opacity. Abdomen X-Ray 08/01/18 09:59 CONCLUSION: NG tube in place. Mild gaseous distention of portions of colon. Chest X-Ray 08/02/18 06:00 CONCLUSION: Stable chest x-ray with mild bibasilar opacity representing either atelectasis or consolidation. Chest X-Ray 08/03/18 06:00 CONCLUSION: Stable bibasilar airspace opacity representing either atelectasis or airspace consolidation. There is also a questionable hazy opacity at the right base which could indicate a small pleural effusion. Chest X-Ray 08/09/18 00:00 CONCLUSION: No significant change. Head MRI 08/10/18 00:00 CONCLUSION: No acute intracranial abnormality is identified. Abdomen/Bladder Ultrasound 08/10/18 08:23 CONCLUSION: 1. Normal sonographic evaluation of the kidneys. 2. No evidence of hydronephrosis. 3. Decompressed bladder. Head CT 08/10/18 15:53 CONCLUSION: Stable noncontrast head CT. No acute intracranial abnormality is identified. . Abdomen X-Ray 08/11/18 00:00 CONCLUSION: Relative paucity of bowel gas with is a gastric tube remain in place. There is no distended bowel loops identified. Chest X-Ray 08/11/18 06:00 CONCLUSION: Decrease in bilateral pulmonary opacity indicating decreased pulmonary edema or infection. Chest X-Ray 08/12/18 06:00 CONCLUSION: Increased right lung base opacity indicating either parenchymal opacity or pleural effusion. Chest X-Ray 08/12/18 09:39 CONCLUSION: 1. Interval placement of right internal jugular central venous line with no pneumothorax. 2. Stable increased opacity at the right lung base. 3. The left costophrenic angle is mildly blunted most characteristic of a small effusion. Chest X-Ray 08/13/18 06:00 CONCLUSION: Nasogastric tube no longer seen. No other significant interval change with persistent bilateral lower lung zone predominant opacity. Chest X-Ray 08/14/18 06:00 CONCLUSION: No significant interval change with persistent bilateral pulmonary opacity. Abdomen X-Ray 08/15/18 00:01 CONCLUSION: Gastrostomy tube, nonspecific bowel gas pattern without dilatation. Chest X-Ray 08/15/18 06:00 CONCLUSION: Slight improvement with less interstitial changes. Pending studies at discharge: None Labs on day of discharge: Labs from last 24 hours 08/15/18 08/15/18 08/15/18 11:51 10:06 08:43 WBC RBC Hgb Hct MCV MCH MCHC RDW Plt Count MPV Prelim Diff (Auto) Neut % (Auto) Lymph % (Auto) [place] % (Auto) Eos % (Auto) Baso % (Auto) Neut # (Auto) Lymph # (Auto) [place] # (Auto) Eos # (Auto) Baso # (Auto) WBC Differential Seg Neuts % (Manual) Band Neuts % (Manual) Lymphocytes % (Manual) Monocytes % (Manual) Eosinophils % (Manual) Metamyelocytes % (Man) Myelocytes % (Man) Abs Neuts (Manual) Nucleated RBCs/100 WBC Differential Comment Platelet Estimate Platelet Morphology Sodium Potassium Chloride Carbon Dioxide Anion Gap BUN Creatinine Estimated GFR POC Glucose 82 93 Random Glucose Calcium Phosphorus Magnesium Total Bilirubin AST ALT Alkaline Phosphatase Total Protein Albumin Blood Type O Positive Antibody Screen Negative MTS Gel Crossmatch See Detail Bld Prod Order Comment 08/15/18 08/15/18 08/14/18 07:02 07:02 19:47 WBC 9.5 RBC 2.15 L Hgb 6.7 L* Hct 19.8 L* MCV 91.8 MCH 31.2 MCHC 34.0 RDW 16.8 Plt Count 155 MPV 9.6 Prelim Diff (Auto) Slide review pending Neut % (Auto) 72.4 H Lymph % (Auto) 12.7 [place] % (Auto) 13.1 H Eos % (Auto) 1.3 Baso % (Auto) 0.5 Neut # (Auto) 6.9 Lymph # (Auto) 1.2 [place] # (Auto) 1.2 H Eos # (Auto) 0.1 Baso # (Auto) 0.0 WBC Differential Manual diff final Seg Neuts % (Manual) 70 Band Neuts % (Manual) 2 Lymphocytes % (Manual) 11 Monocytes % (Manual) 12 H Eosinophils % (Manual) 2 Metamyelocytes % (Man) 1 Myelocytes % (Man) 2 H Abs Neuts (Manual) 7.1 Nucleated RBCs/100 WBC 2 H Differential Comment . Platelet Estimate Normal Platelet Morphology Normal Sodium 142 Potassium 3.4 L Chloride 105 Carbon Dioxide 28.4 Anion Gap 9 BUN 43 H Creatinine 3.02 H Estimated GFR 25 L POC Glucose 114 H Random Glucose 86 Calcium 7.6 L Phosphorus 1.8 L Magnesium 2.0 Total Bilirubin 0.5 AST 78 H ALT 73 Alkaline Phosphatase 264 H Total Protein 6.3 L Albumin 2.5 L Blood Type Antibody Screen MTS Gel Crossmatch Bld Prod Order Comment 08/14/18 08/10/18 16:22 10:51 WBC RBC Hgb Hct MCV MCH MCHC RDW Plt Count MPV Prelim Diff (Auto) Neut % (Auto) Lymph % (Auto) [place] % (Auto) Eos % (Auto) Baso % (Auto) Neut # (Auto) Lymph # (Auto) [place] # (Auto) Eos # (Auto) Baso # (Auto) WBC Differential Seg Neuts % (Manual) Band Neuts % (Manual) Lymphocytes % (Manual) Monocytes % (Manual) Eosinophils % (Manual) Metamyelocytes % (Man) Myelocytes % (Man) Abs Neuts (Manual) Nucleated RBCs/100 WBC Differential Comment Platelet Estimate Platelet Morphology Sodium Potassium Chloride Carbon Dioxide Anion Gap BUN Creatinine Estimated GFR POC Glucose 126 H Random Glucose Calcium Phosphorus Magnesium Total Bilirubin AST ALT Alkaline Phosphatase Total Protein Albumin Blood Type Antibody Screen MTS Gel Crossmatch See Detail Bld Prod Order Comment - Impressions ITS Impressions Abdomen Ultrasound 06/21/18 00:00 CONCLUSION: 1. No ascites is identified within the abdomen. Chest CTA 07/02/18 00:00 CONCLUSION: 1. No pulmonary embolus. 2. Diffuse but basilar predominant bilateral airspace disease. 3. Endotracheal and endobronchial secretions are demonstrated. 4. Moderate emphysema. 5. Left ventricular hypertrophy. Abdomen/Pelvis CT 07/10/18 08:31 CONCLUSION: 1. There is gas and fluid distending the colon. The patient has a rectal tube in place however the rectal tube is kinked back on itself and occluded. The overall size of the colon has mildly increased when compared to previous exam. The small bowel is normal in caliber. 2. Interval development of a small left basilar effusion and atelectasis. Venous Doppler Study 07/15/18 00:00 CONCLUSION: 1. Limited suboptimal examination. 2. Nonocclusive thrombus in the jugular vein. Head MRI 08/10/18 00:00 CONCLUSION: No acute intracranial abnormality is identified. Abdomen/Bladder Ultrasound 08/10/18 08:23 CONCLUSION: 1. Normal sonographic evaluation of the kidneys. 2. No evidence of hydronephrosis. 3. Decompressed bladder. Head CT 08/10/18 15:53 CONCLUSION: Stable noncontrast head CT. No acute intracranial abnormality is identified. . Abdomen X-Ray 08/15/18 00:01 CONCLUSION: Gastrostomy tube, nonspecific bowel gas pattern without dilatation. Chest X-Ray 08/15/18 06:00 CONCLUSION: Slight improvement with less interstitial changes. Discharge Plan - Discharge Disposition Patient Disposition: 63 [facility] Inpatient - Discharge Condition Condition: Stable - Discharge Order Discharge Orders: Discharge Order (Routine); Ordered 08/15/18 Ordered By: Brooks Hugo - Discharge Details Anticipated Discharge Date: 08/15/18 - Physicians Team Primary Care Provider: [facility]ician 's Attending Provider: Evita Foster Other Providers: Kristian Townsend ; Anuj Damon MD ; Neelam Dean MD ; Corey Ahn MD ; Vineet Iraheta MD ; [facility] ; Joan Shaffer ; Richard Chauhan MD ; [facility] ; Kierra Brown MD ; Frankie Figueroa MD ; Adrian Oh MD ; Bethel Berrios MD ; Nicho Nicholas MD ; Calli Esteves MD ; Natacha Santiago DO ; Jennifer Holman MD ; Jeanine Chirinos MD ; Susan Pantoja MD
[2018-08-15] MEDS: Heparin 10,000 UNITS/10 ML Vial (for IV use) OTHER PRN (13:59)
[2018-08-15] MEDS: Dextrose 50% in Water 50 ML Vial IV.PUSH PRN (16:30)
[2018-08-15] MEDS: DAPTOmycin Inj 500 MG in Sodium Chlor 0.9% Inj 100 ML IV.SIG SCH (16:31)
--- NOTE | 2018-08-15 17:15 | P.PNNP ---
Subjective Interval history: Patient has tracheostomy/PEG/dialysis Physical Exam Vital signs: Vital Signs 08/14/18 18:00 08/14/18 19:00 08/14/18 19:25 Temperature Pulse Rate 98 H 90 Respiratory Rate 21 23 21 Blood Pressure 157/77 H 134/86 Pulse Oximetry 100 97 100 08/14/18 19:27 08/14/18 20:00 08/14/18 21:00 Temperature 99.6 F Pulse Rate 92 H 94 H 101 H Respiratory Rate 20 20 20 Blood Pressure 129/77 Pulse Oximetry 100 98 08/14/18 21:01 08/14/18 22:00 08/14/18 22:04 Temperature Pulse Rate 102 H 106 H 110 H Respiratory Rate 20 21 24 Blood Pressure 167/66 H 132/68 Pulse Oximetry 100 98 98 08/14/18 23:00 08/14/18 23:03 08/14/18 23:06 Temperature Pulse Rate 97 H 97 H 101 H Respiratory Rate 20 20 20 Blood Pressure 127/69 Pulse Oximetry 99 99 08/15/18 00:00 08/15/18 00:13 08/15/18 01:00 Temperature 98.8 F Pulse Rate 104 H 101 H Respiratory Rate 20 20 21 Blood Pressure 129/65 135/82 Pulse Oximetry 99 100 98 08/15/18 02:00 08/15/18 03:00 08/15/18 03:01 Temperature Pulse Rate 108 H 103 H 105 H Respiratory Rate 20 20 20 Blood Pressure 135/64 140/62 Pulse Oximetry 100 98 100 08/15/18 03:23 08/15/18 03:24 08/15/18 04:00 Temperature 98.8 F Pulse Rate 109 H 94 H Respiratory Rate 21 21 20 Blood Pressure 135/65 Pulse Oximetry 100 99 08/15/18 05:00 08/15/18 06:00 08/15/18 07:00 Temperature Pulse Rate 115 H 109 H 105 H Respiratory Rate 27 H 22 24 Blood Pressure 132/72 154/78 H 136/70 Pulse Oximetry 100 97 100 08/15/18 07:53 08/15/18 08:00 08/15/18 10:00 Temperature Pulse Rate 106 H 93 H Respiratory Rate 20 17 Blood Pressure 138/74 Pulse Oximetry 100 97 08/15/18 11:00 08/15/18 11:14 08/15/18 11:46 Temperature 98.7 F Pulse Rate 96 H 93 H Respiratory Rate 16 15 12 Blood Pressure 139/66 Pulse Oximetry 100 100 08/15/18 12:00 08/15/18 14:00 08/15/18 14:26 Temperature 98.3 F 97.9 F Pulse Rate 92 H 93 H 92 H Respiratory Rate 14 18 Blood Pressure 137/69 144/74 H Pulse Oximetry 100 98 08/15/18 14:33 08/15/18 14:40 08/15/18 14:44 Temperature 98.5 F 98.2 F Pulse Rate 92 H 81 86 Respiratory Rate 13 14 Blood Pressure 138/78 143/87 H Pulse Oximetry 100 08/15/18 16:00 Temperature 98.3 F Pulse Rate 93 H Respiratory Rate 22 Blood Pressure 133/74 Pulse Oximetry 100 Intake & Output 08/14/18 08/15/18 08/15/18 18:59 06:59 18:59 Intake Total 670 / 670 1700 / 1700 900 / 900 Output Total 800 / 800 450 / 450 3500 / 3500 Balance -130 / -130 1250 / 1250 -2600 / -2600 Weight 90 kg Intake: IV 670 / 670 200 / 200 100 / 100 Bumex Inj 25 mg In 100 ml @ 1 100 / 100 MG/HR 4 mls/hr IV.CONT .Q24H [facility] Rx#:[id number] Azactam Inj 1,000 MG In NS Inj 300 / 300 200 / 200 100 / 100 100 ML @ 200 mls/hr IV.SIG Q6H [facility] Rx#:[id number] Glycophos Inj 15 MMOL In NS Inj 165 / 165 150 ML @ 40 mls/hr IV.SIG ONCE ONE Rx#:[id number] Keppra Inj 500 MG In NS Inj 100 105 / 105 ML @ 400 mls/hr IV.SIG Q12H [facility] Rx#:[id number] Tube Feeding 1100 / 1100 Water Bolus Amount 400 / 400 Intake (Blood Product) Amt 800 / 800 Rbc As-3 Leukoreduced Unit 400 / 400 [id number] Rbc As-3 Leukoreduced Unit 400 / 400 [id number] Output: Hemodialysis Amount 3500 / 3500 Urine Amount (Catheter) 800 / 800 450 / 450 Indwelling Urethral Catheter 800 / 800 450 / 450 Other: Date of Last Bowel Movement 08/14/18 08/15/1808/15/18 # Bowel Movements 3 1 Narrative: GENERAL: 73-year-old chronically ill appearing elderly -[place]an male lying in bed, awake , calm currently on PRVC SKIN: Warm and dry. No rash HEAD: Normocephalic. EYES: PERRL NECK: Supple, trachea midline. New tracheostomy with minimal dry blood around the site right IJ hemodialysis catheter is clean dry and intact CARDIOVASCULAR: RRR. S1, S2. No S4. No murmur RESPIRATORY: Diminished breath sounds in bases noted right greater than left. B/ L equal air entry, patient. GASTROINTESTINAL: Abdomen continues/remains distended, grimaces when deep palpation, no guarding, hypoactive bowel sounds present. PEG tube site is clean dry and intact MUSCULOSKELETAL: He is to one-point bilateral upper/ lower extremity edema, warm and well-perfused NEURO: Arousable with open eyes. Will look at you to voice. Grimaces with pain. Withdraws to pain all 4 extremities. Nods head to questions - Urinary Catheter Management Indwelling Urethral Catheter Cath placed during this visit: yes, but has since been removed by the nurse Reason for continuing: Acute urinary retention Insertion date: 07/14/18 Insertion time: 21:55 Removal date: 08/02/18 Removal time: 07:59 Straight Cath placed during this visit: yes Reason for continuing: Acute urinary retention Insertion date: 08/11/18 Insertion time: 10:48 Condom Cath placed during this visit: no Indwelling Temp Sensing Catheter Cath placed during this visit: yes, but has since been removed by the nurse Reason for continuing: Decision to DC catheter Insertion date: 08/02/18 Insertion time: 08:00 Removal date: 08/09/18 Removal time: 18:30 Assessment and Plan - Assessment (1) Acute renal failure Code(s): N17.9 - Acute kidney failure, unspecified Status: Acute (2) Anasarca Code(s): R60.1 - Generalized edema Status: Acute (3) Abdominal distention Code(s): R14.0 - Abdominal distension (gaseous) Status: Acute (4) Ileus Code(s): K56.7 - Ileus, unspecified Status: Acute - Plan Patient seen and examined, Status post tracheostomy On ventilator Patient requires hemodialysis 3.5 L were taken off yesterday next dialysis tomorrow Procrit increased to 10,000 Transferred to [facility]
== END 2018-08-15 19:05 ==
LOC: NEPC 20:26 → NEDA 20:26 → NEDH 06-20 05:29 → NEPGCP 06-20 14:00 → N03 06-25 04:55 → HCIS 06-25 10:33 → HIMC 06-25 20:45 → N06 07-18 14:51 → N03 07-19 12:15 → N04 07-21 14:20 → HIMC 07-23 15:10
PROVIDERS: ADMIT Anesthesiology; ATTEND Anesthesiology
PROC: PANENDO (2018-06-25 18:50)